=== PATIENT | male | born 1930 | race Caucasian/White ===

== ENCOUNTER 2017-08-25 22:59 | Inpatient (IN) | payer OTHER, MEDICARE ==
[~2017-08-25] VITALS: Ht 162.6 cm; Wt 58.0 kg
[~2017-08-25 22:59] MED LIST: DOCU1CAP39 PO; ENOX40P SQ; GLUCTAB PO; LORTA5 PO; PANT40IN3 PO; SITA100 PO; TUMS CHEW; Z.0.WALKERFRONT
[2017-08-25 23:03] VITALS: BP 138/65; PULSE 100; RESP 18; TEMP 97.8; O2SAT 100
--- NOTE | 2017-08-25 23:43 | PD ---
HPI Chief Complaint: Psychiatric Symptoms Time Seen by Provider: 23:39 Travel History International Travel<30 days: No Contact w/Intl Traveler<30days: No Traveled to known affect area: No History of Present Illness HPI 86-year-old male presents under Galaviz act initiated by the Police Department. According to his paperwork, "Rufus Escobedo was unable to get up on his own and refused help and had defecated in his clothing and floor. Fanny did not know the year or where he was located. Fanny was verbally combative and became angry. Fanny was on the floor for over an hour and confused. Fanny refused help in transfer. Was asked why he never answered his family 's calls and advised that when he got home today deaf people with kids were in his locked home doing construction. Stated he got tired and took a nap while they were there and woke up and they were gone. There is no new construction in his home. Deputy Molina believes he cannot make clear decisions about his health and well-being and without care and help he is likely to cause harm to himself. Deputy De La Cruz placed him under a floor to be cracked and had him transported to [facility] for care and treatment." The patient reports that he fell today because he was bending over to olive picker a pill. He reports that he was unable to get up off the ground. It is unclear who called the ambulance or police, he does not know. He says that he lives alone but his neighbor, Anjelica, checks on him on a regular basis however she was not present at the time of this incident. No other complaints. PFSH Past Medical History Cancer: No Cardiovascular Problems: Yes Diabetes: Yes Patient Takes Glucophage: Yes GERD: Yes Genitourinary: No Hypertension: Yes Musculoskeletal: No Neurologic: No Psychiatric: No Reproductive: No Respiratory: No Radiation Therapy: No Tetanus Vaccination: < 5 Years Social History Alcohol Use: Yes (red wine) Tobacco Use: No Substance Use: No Allergies-Medications (Allergen,Severity, Reaction): Coded Allergies: No Known Allergies (Unverified Allergy, Unknown, 08/26/17) Reported Meds & Prescriptions Reported Meds & Active Scripts Active Pantoprazole Sodium 40 Mg Tab 40 Mg PO DAILY Colace 100 Mg Cap (Docusate Sodium) 100 Mg Cap 100 Mg PO BID Calcium Carbonate 500 Mg Chw 500 Mg CHEW Q2H PRN Walker Front Wheel (Walkerfront) Device 1 Unit [place] 5-325 mg (Hydrocodone-Acetaminophen 5-325 mg) 1 Tab 1 Tab PO Q4H PRN Lovenox (Enoxaparin Sodium) 40 Mg/0.4 Ml Inj 40 Mg SQ Q24H 30 Days Reported Januvia (Sitagliptin Phosphate) 100 Mg Tab 100 Mg PO DAILY Metformin (Metformin HCl) 500 Mg Tab 500 Mg PO BID Review of Systems Except as stated in HPI: all other systems reviewed are Neg Physical Exam Narrative GENERAL: Pleasant well-developed well-nourished male in no acute distress alert and oriented to person, place, time SKIN: Warm and dry. HEAD: Atraumatic. Normocephalic. EYES: Pupils equal and round. No scleral icterus. No injection or drainage. ENT: No nasal bleeding or discharge. Mucous membranes pink and moist. NECK: Trachea midline. No JVD. CARDIOVASCULAR: Regular rate and rhythm. No murmur appreciated. RESPIRATORY: No accessory muscle use. Clear to auscultation. Breath sounds equal bilaterally. GASTROINTESTINAL: Abdomen soft, non-tender, nondistended. Hepatic and splenic margins not palpable. MUSCULOSKELETAL: No obvious deformities. No clubbing. No cyanosis. No edema. NEUROLOGICAL: Awake and alert. No obvious cranial nerve deficits. Motor grossly within normal limits. Normal speech. Patient is unsteady when attempting to stand. PSYCHIATRIC: Appropriate mood and affect; insight and judgment normal. Data Data Last Documented VS Vital Signs Date Time Temp Pulse Resp B/P (MAP) Pulse Ox O2 Delivery O2 Flow Rate FiO2 08/25/17 23:03 97.8 100 18 138/65 (89) 100 Orders Orders Electrocardiogram (08/25/17 23:37) Basic Metabolic Panel (Bmp) (08/25/17 23:37) Complete Blood Count With Diff (08/25/17 23:37) Magnesium (Mg) (08/25/17 23:37) Ecg Monitoring (08/25/17 23:37) Iv Access Insert/Monitor (08/25/17 23:37) Oximetry (08/25/17 23:37) Sodium Chloride 0.9% Flush (Ns Flush) (08/25/17 23:45) Creatine Kinase (Cpk) (08/25/17 23:43) Ct Brain W/O Iv Contrast(Rout) (08/26/17 ) CKMB (08/26/17 00:36) CKMB% (08/26/17 00:36) Admit Order (Ed Use Only) (08/26/17 02:04) Consult Psychiatry (08/26/17 ) Bedside Glucose BIANCA.CSUGAR (08/26/17 02:01) Blood Glucose Goal (Criteria) (08/26/17 02:01) Hypoglycemia 70 Mg/Dl Or < (08/26/17 02:01) Notify Dr: Other (08/26/17 02:01) Dextrose 50% In Donny (Vial) Inj (D50w (Vi (08/26/17 02:15) Glucagon Inj (Glucagon Inj) (08/26/17 02:15) Insulin Aspart Supplemtl Scale (Novolog (08/26/17 08:00) Place In Observation (08/26/17 ) Vital Signs (Adult) Q4H (08/26/17 02:01) Activity Oob With Assistance (08/26/17 02:01) Diet Regular Basic (08/26/17 Breakfast) Sodium Chlor 0.9% 1000 Ml Inj (Ns 1000 M (08/26/17 02:01) Sodium Chloride 0.9% Flush (Ns Flush) (08/26/17 02:15) Sodium Chloride 0.9% Flush (Ns Flush) (08/26/17 09:00) Ondansetron Inj (Zofran Inj) (08/26/17 02:15) Comprehensive Metabolic Panel (08/27/17 06:00) Complete Blood Count With Diff (08/27/17 06:00) Pt Request For Service (08/26/17 02:01) Case Management Consult (08/26/17 02:01) Scd Bilateral/Knee High BIANCA.BID (08/26/17 02:01) [place] Bilateral/Knee High BIANCA.QSHIFT (08/26/17 02:05) Sodium Chlor 0.9% 1000 Ml Inj (Ns 1000 M (08/26/17 02:05) Acetaminophen (Tylenol) (08/26/17 02:15) Docusate Sodium-Senna (Katie-Colace) (08/26/17 09:00) Magnesium Hydroxide Liq (Milk Of Magnesi (08/26/17 02:15) Sennosides (Senokot) (08/26/17 02:15) Bisacodyl Supp (Dulcolax Supp) (08/26/17 02:15) Lactulose Liq (Lactulose Liq) (08/26/17 02:15) Labs Laboratory Tests Test 08/26/17 00:36 White Blood Count 10.8 TH/MM3 Red Blood Count 2.83 MIL/MM3 Hemoglobin 9.1 GM/DL Hematocrit 27.6 % Mean Corpuscular Volume 97.7 FL Mean Corpuscular Hemoglobin 32.1 PG Mean Corpuscular Hemoglobin Concent 32.9 % Red Cell Distribution Width 18.3 % Platelet Count 604 TH/MM3 Mean Platelet Volume 6.5 FL Neutrophils (%) (Auto) 83.6 % Lymphocytes (%) (Auto) 8.9 % Monocytes (%) (Auto) 7.0 % Eosinophils (%) (Auto) 0.1 % Basophils (%) (Auto) 0.4 % Neutrophils # (Auto) 9.0 TH/MM3 Lymphocytes # (Auto) 1.0 TH/MM3 Monocytes # (Auto) 0.8 TH/MM3 Eosinophils # (Auto) 0.0 TH/MM3 Basophils # (Auto) 0.0 TH/MM3 CBC Comment DIFF FINAL Differential Comment Blood Urea Nitrogen 23 MG/DL Creatinine 0.77 MG/DL Random Glucose 217 MG/DL Calcium Level 8.4 MG/DL Magnesium Level 1.4 MG/DL Sodium Level 136 MEQ/L Potassium Level 3.8 MEQ/L Chloride Level 103 MEQ/L Carbon Dioxide Level 16.9 MEQ/L Anion Gap 16 MEQ/L Estimat Glomerular Filtration Rate 96 ML/MIN Total Creatine Kinase 735 U/L Creatine Kinase MB 13.8 NG/ML Creatine Kinase MB % 1.9 % [facility] Medical Decision Making Medical Screen Exam Complete: Yes Emergency Medical Condition: Yes Medical Record Reviewed: Yes Differential Diagnosis Inability to care for self, failure to thrive, dementia, acute psychosis Narrative Course Family members who live out of state eventually called and spoke to the nurse. She reports that they called the police today for a well person check up because they have not heard from him today. Lab work, CT the brain is been ordered. Lab work has been reviewed. Hemoglobin is 9.1, platelet count is 604, total CK 735, BUN is 23, anion gap is 16 the patient will be given IV fluids. At this point in time given the patient's generalized weakness, inability to ambulate independently, lives by himself and is likely having difficulties with activities of daily living, he will be admitted for observation medically. Discussed with my attending who agrees with plan of care. Diagnosis Primary Impression: Generalized weakness Admitting Information Admitting Physician Requests: Observation Tyrone Delaney Aug 25, 2017 23:42
[2017-08-25] MEDS ORDERED: SODIUM CHLORIDE 0.9% FLUSH 10 ML FLUSH IVF PRN (23:45)
[2017-08-26 00:48] LABS: BASOPHIL % 0.4 % (0.0-2.0); EOSINOPHIL % 0.1 % (0.0-4.0); HEMATOCRIT 27.6 % (39.0-51.0); HEMOGLOBIN 9.1 GM/DL (13.0-17.0); LYMPH % 8.9 % (9.0-44.0); MEAN CELL VOLUME 97.7 FL (80.0-100.0); MEAN CORPUSCULAR HEMOGLOBIN 32.1 PG (27.0-34.0); MEAN CORPUSCULAR HGB CONC 32.9 % (32.0-36.0); MEAN PLATELET VOLUME 6.5 FL (7.0-11.0); MONOCYTE # 0.8 TH/MM3 (0-0.9); NEUT % 83.6 % (16.0-70.0); PLATELET COUNT 604 TH/MM3 (150-450); RED BLOOD COUNT 2.83 MIL/MM3 (4.50-5.90); RED CELL DISTRIBUTION WIDTH 18.3 % (11.6-17.2); WHITE BLOOD COUNT 10.8 TH/MM3 (4.0-11.0)
[2017-08-26 01:03] LABS: BICARBONATE 16.9 MEQ/L (21.0-32.0); CALCIUM 8.4 MG/DL (8.5-10.1); CREATININE 0.77 MG/DL (0.60-1.30); MAGNESIUM 1.4 MG/DL (1.5-2.5)
--- NOTE | 2017-08-26 01:31 | RADRPT ---
EXAM DATE/TIME: 08/26/2017 01:17 [place] COMPARISON: No previous studies available for comparison. INDICATIONS : Cephalgia. RADIATION DOSE: 36.71 CTDIvol (mGy) MEDICAL HISTORY : Gastroesophageal reflux disease. Cardiovascular disease Diabetes mellitus type 2.Hypertension. SURGICAL HISTORY : None. ENCOUNTER: Initial ACUITY: 1 day PAIN SCALE: 7/10 LOCATION: cranial TECHNIQUE: Multiple contiguous axial images were obtained of the head. Using automated exposure control and adj ustment of the mA and/or kV according to patient size, radiation dose was kept as low as reasonably a chievable to obtain optimal diagnostic quality images. DICOM format image data is available electro nically for review and comparison. FINDINGS: CEREBRUM: Atrophy. Periventricular low attenuation change. The ventricles are normal for age. No evidence of m idline shift, mass lesion, hemorrhage or acute infarction. No extra-axial fluid collections are seen . POSTERIOR FOSSA: The cerebellum and brainstem are intact. The 4th ventricle is midline. The cerebellopontine angle i s unremarkable. EXTRACRANIAL: The visualized portion of the orbits is intact. Atrophy of the left maxillary sinus. SKULL: The calvaria is intact. No evidence of skull fracture. CONCLUSION: 1. No acute intracranial abnormality. 2. Atrophy. 3. Chronic small vessel ischemic change. Brandon Narvaez Jr., MD on August 26, 2017 at 1:29 Board Certified Radiologist. This report was verified electronically.
[2017-08-26] MEDS: SODIUM CHLOR 0.9% 1000 ML INJ 1,000 ML IV SCH ×3 (02:01→22:25)
[2017-08-26] MEDS ORDERED: SODIUM CHLOR 0.9% 1000 ML INJ 1,000 ML IV SCH (02:05)
[2017-08-26] MEDS ORDERED: BISACODYL 10 MG SUPP RECTAL PRN (02:15)
[2017-08-26] MEDS ORDERED: MAGNESIUM HYDROXIDE SUSP 30 ML CUP PO PRN (02:15)
[2017-08-26] MEDS ORDERED: GLUCAGON 1 MG/ML VIAL OTHER PRN (02:15)
[2017-08-26] MEDS ORDERED: SENNOSIDES 8.6 MG TAB PO PRN (02:15)
[2017-08-26] MEDS ORDERED: ACETAMINOPHEN 325 MG TAB PO PRN (02:15)
[2017-08-26] MEDS ORDERED: LACTULOSE SYRUP 20 GM/30 ML CUP PO PRN (02:15)
[2017-08-26] MEDS ORDERED: DEXTROSE 50% IN WATER 50 ML VIAL(D50) IV PUSH PRN (02:15)
[2017-08-26] MEDS ORDERED: ONDANSETRON HCL 4 MG/2 ML VIAL IVP PRN (02:15)
[2017-08-26] MEDS ORDERED: SODIUM CHLORIDE 0.9% FLUSH 10 ML FLUSH IV FLUSH PRN (02:15)
[2017-08-26] MEDS ORDERED: CALCIUM CARBONATE 500 MG CHEWABLE TAB CHEW ONE (02:30)
--- NOTE | 2017-08-26 03:48 | HHI.HP ---
[facility] Service [facility] Primary Care Physician No Primary Care Physician Admission Diagnosis Generalized weakness Diagnoses: (1) Rhabdomyolysis Diagnosis: Principal (2) Gait instability Diagnosis: Principal (3) Self-care deficit in patient living alone Diagnosis: Principal (4) DM (diabetes mellitus) Diagnosis: Principal (5) Generalized weakness Travel History International Travel<30 Days: No Contact w/Intl Traveler <30 Da: No Traveled to Known Affected Are: No History of Present Illness This is an 86-year-old male with a PMH of HTN and DM who was brought to the ER by Police under Galaviz Act secondary to confusion and unable to care for self. Per Police report, patient refusing medical attention and had defecated on the floor. Noted to be confused at that time. On arrival, BP 138/65, HR 100, O2 sat 100% on RA, Afebrile. CBC essentially unremarkable. Chemistry unremarkable except for BS 217. CPK 735. CT Head w/ no acute findings. Patient was gotten up to ambulate, however noted to have significant gait instability which we were asked to admit. Remains under Galaviz Act at this time. Review of Systems Except as stated in HPI: all other systems reviewed are Neg ROS: 14 point review of systems otherwise negative. Past Family Social History Past Medical History PMH: HTN and DM Past Surgical History PAST SURGICAL HISTORY: Right Hip Surgery Allergies: Coded Allergies: No Known Allergies (Unverified Allergy, Unknown, 08/26/17) Family History PAST FAMILY HISTORY: Reviewed. No h/o DM or CAD Social History PAST SOCIAL HISTORY: Occasional alcohol. Negative for tobacco or drugs. Physical Exam Vital Signs Vital Signs Date Time Temp Pulse Resp B/P (MAP) Pulse Ox O2 Delivery O2 Flow Rate FiO2 08/25/17 23:03 97.8 100 18 138/65 (89) 100 Physical Exam PE: GENERAL: Pleasant elderly male in no acute distress. Awake, alert, oriented to person and place. HEENT: PERRLA, EOMI. No scleral icterus or conjunctival pallor. No lid lag or facial droop. CARDIOVASCULAR: Regular rate and rhythm. No obvious murmurs to auscultation. No chest tenderness to palpation. RESPIRATORY: No obvious rhonchi or wheezing. Clear to auscultation. Breath sounds equal bilaterally. GASTROINTESTINAL: Abdomen soft, non-tender, nondistended. BS normal. MUSCULOSKELETAL: Extremities without clubbing, cyanosis, or edema. No obvious deformities. NEUROLOGICAL: Awake, alert. No focal neurologic deficits. Moving both upper and lower extremities spontaneously. Laboratory Laboratory Tests Test 08/26/17 00:36 White Blood Count 10.8 Red Blood Count 2.83 Hemoglobin 9.1 Hematocrit 27.6 Mean Corpuscular Volume 97.7 Mean Corpuscular Hemoglobin 32.1 Mean Corpuscular Hemoglobin Concent 32.9 Red Cell Distribution Width 18.3 Platelet Count 604 Mean Platelet Volume 6.5 Neutrophils (%) (Auto) 83.6 Lymphocytes (%) (Auto) 8.9 Monocytes (%) (Auto) 7.0 Eosinophils (%) (Auto) 0.1 Basophils (%) (Auto) 0.4 Neutrophils # (Auto) 9.0 Lymphocytes # (Auto) 1.0 Monocytes # (Auto) 0.8 Eosinophils # (Auto) 0.0 Basophils # (Auto) 0.0 CBC Comment DIFF FINAL Differential Comment Blood Urea Nitrogen 23 Creatinine 0.77 Random Glucose 217 Calcium Level 8.4 Magnesium Level 1.4 Sodium Level 136 Potassium Level 3.8 Chloride Level 103 Carbon Dioxide Level 16.9 Anion Gap 16 Estimat Glomerular Filtration Rate 96 Total Creatine Kinase 735 Creatine Kinase MB 13.8 Creatine Kinase MB % 1.9 Result Diagram: 08/26/173508/26/1735 Caprini VTE Risk Assessment Caprini VTE Risk Assessment: No/Low Risk (score <= 1) Caprini Risk Assessment Model Point Value = 1 Point Value = 2 Point Value = 3 Point Value = 5 Age 41-60 Minor surgery BMI > 25 kg/m2 Swollen legs Varicose veins or History of unexplained or recurrent spontaneous Oral contraceptives or hormone replacement Sepsis (< 1 month) Serious lung disease, including pneumonia (< 1 month) Abnormal pulmonary function Acute myocardial infarction Congestive heart failure (< 1 month) History of inflammatory bowel disease Medical patient at bed rest Age 61-74 Arthroscopic surgery Major open surgery (> 45 min) Laparoscopic surgery (> 45 min) Malignancy Confined to bed (> 72 hours) Immobilizing plaster cast Central venous access Age >= 75 History of VTE Family history of VTE Factor V Leiden Prothrombin [id number] Lupus anticoagulant Anticardiolipin antibodies Elevated serum homocysteine Heparin-induced thrombocytopenia Other congenital or acquired thrombophilia Stroke (< 1 month) Elective arthroplasty Hip, pelvis, or leg fracture Acute spinal cord injury (< 1 month) Prophylaxis Regimen Total Risk Factor Score Risk Level Prophylaxis Regimen 0-1 Low Early ambulation 2 Moderate Order ONE of the following: *Sequential Compression Device (SCD) *Heparin 5000 units SQ BID 3-4 Higher Order ONE of the following medications: *Heparin 5000 units SQ TID *Enoxaparin/Lovenox 40 mg SQ daily (WT < 150 kg, CrCl > 30 mL/min) *Enoxaparin/Lovenox 30 mg SQ daily (WT < 150 kg, CrCl > 10-29 mL/min) *Enoxaparin/Lovenox 30 mg SQ BID (WT < 150 kg, CrCl > 30 mL/min) AND/OR *Sequential Compression Device (SCD) 5 or more Highest Order ONE of the following medications: *Heparin 5000 units SQ TID (Preferred with Epidurals) *Enoxaparin/Lovenox 40 mg SQ daily (WT < 150 kg, CrCl > 30 mL/min) *Enoxaparin/Lovenox 30 mg SQ daily (WT < 150 kg, CrCl > 10-29 mL/min) *Enoxaparin/Lovenox 30 mg SQ BID (WT < 150 kg, CrCl > 30 mL/min) AND *Sequential Compression Device (SCD) Assessment and Plan Problem List: (1) Self-care deficit in patient living alone ICD Code: R46.89 - Other symptoms and signs involving appearance and behavior (2) Gait instability ICD Code: R26.81 - Unsteadiness on feet (3) Rhabdomyolysis ICD Code: M62.82 - Rhabdomyolysis (4) DM (diabetes mellitus) ICD Code: E11.9 - Type 2 diabetes mellitus without complications Status: Chronic Assessment and Plan A/P: 1. Self Care Deficit: currently under [place]aviz Act by Police for refusing treatment/defecating on floor, transient confusion, unable to care for self. Consult Psych for further evaluation. CT Head w/ no acute findings, images reviewed by me. Check U/a to eval for underlying UTI. 2. Gait Instability: noted to be unstable w/ ambulation, unable to care for self. PT for eval/tx. Consult Case Management for assistance w/ placement. 3. Rhabdomyolysis: CPK 735. IVF for hydration, check UA, repeat labs in a.m. 4. DM: Sliding scale with Accu-Cheks. 5. DVT Prophylaxis: SCD/teds. 6. Social work for DC planning as needed. 7. Case discussed at length with ER physician, lab/records/imaging reviewed by me. Ada Hernandez MD Aug 26, 2017 03:48
[2017-08-26 05:01] VITALS: BP 132/60; PULSE 88; RESP 18; TEMP 98; O2SAT 97
[2017-08-26 07:26] VITALS: BP 136/63; PULSE 96; RESP 16; TEMP 98.1; O2SAT 99
[2017-08-26] MEDS: DOCUSATE SODIUM 50 MG/SENNA 8.6 MG TAB PO SCH ×2 (09:07→21:00)
[2017-08-26] MEDS: ALUMINUM/MAGNESIUM/SIMETH 30 ML CUP PO PRN (09:07)
[2017-08-26] MEDS: SODIUM CHLORIDE 0.9% FLUSH 10 ML FLUSH IV FLUSH SCH ×2 (09:07→21:00)
--- NOTE | 2017-08-26 09:12 | HHI.PR ---
Subjective Remarks Follow up for Galaviz act, inability to care for self. The patient is currently awake, alert, oriented x4, ambulating his room without difficulty. He states his neighbor called [facility] because they were concerned about him falling and on the floor for over 1 hour. The patient states he dropped one of his tablets on the floor, bent down to pick it up, and had difficulty getting off the floor but he claims he was only down for a few minutes. He reports right hip weakness since his hip fracture in 2016, but denies any recent fall/injury or increased pain. The patient does report recent nonbloody diarrhea x4days, approximately 2 episodes a day. He denies any recent antibiotic use or sick contacts. He denies any specific abdominal pains but does complain of some indigestion/heartburn. Denies nausea or vomiting. He states he's lost 30lbs over the past year because he's just lost his appetite. The patient reports he is still very independent, drives his car, goes grocery shopping, etc. He wants to be released from the hospital early tomorrow morning if possible because he has to go pay a traffic ticket and attend a driving class. He states he has a neighbor that checks on him. He has no other medical complaints at this time. Objective Vitals Vital Signs Date Time Temp Pulse Resp B/P (MAP) Pulse Ox O2 Delivery O2 Flow Rate FiO2 08/26/17 07:26 98.1 96 16 136/63 (87) 99 08/26/17 05:01 98.0 88 18 132/60 (84) 97 08/25/17 23:03 97.8 100 18 138/65 (89) 100 Result Diagram: 08/26/17 0036 08/26/17 0036 Imaging Last Impressions Head CT 08/26/17 0000 Signed Impressions: Service Date/Time: Saturday, August 26, 2017 01:17 - CONCLUSION: 1. No acute intracranial abnormality. 2. Atrophy. 3. Chronic small vessel ischemic change. Brandon Narvaez Jr., MD Objective Remarks GENERAL: Well-nourished, well-developed pleasant elderly male patient in [facility]. SKIN: Warm and dry. No rash. HEENT: Normocephalic. Atraumatic. Pupils equal and round. Mucous membranes pink and moist. NECK: Supple. Trachea midline. CARDIOVASCULAR: Regular rate and rhythm. S1, S2 noted. No murmur appreciated. RESPIRATORY: No accessory muscle use. Clear to auscultation. Breath sounds equal bilaterally. GASTROINTESTINAL: Abdomen soft, non-tender, nondistended. Normoactive bowel sounds x4. MUSCULOSKELETAL: No obvious deformities. Extremities without clubbing, cyanosis , or edema. NEUROLOGICAL: Awake and alert. No obvious cranial nerve deficits. Motor grossly within normal limits. 5/5 strength bilateral upper and lower extremities. Normal speech. PSYCHIATRIC: Appropriate mood and affect; insight and judgment normal. Medications and IVs Current Medications Medications (Trade) Dose Ordered Sig/Rodrigo Route Start Time Stop Time Status Last Admin (D50w (Vial) Inj) 50 ml UNSCH PRN IV PUSH 08/26/17 02:15 (Glucagon Inj) 1 mg UNSCH PRN OTHER 08/26/17 02:15 (NovoLOG SUPPLEMENTAL SCALE) 1 ACHS SLIDING SCALE SQ 08/26/17 08:00 Sodium Chloride 1,000 ml @ 100 mls/hr Q10H IV 08/26/17 02:01 08/26/17 02:01 (NS Flush) 2 ml UNSCH PRN IV FLUSH 08/26/17 02:15 (NS Flush) 2 ml BID IV FLUSH 08/26/17 09:00 (Zofran Inj) 4 mg Q6H PRN IVP 08/26/17 02:15 (Tylenol) 650 mg Q6H PRN PO 08/26/17 02:15 (Katie-Colace) 1 tab BID PO 08/26/17 09:00 (Milk Of Magnesia Liq) 30 ml Q12H PRN PO 08/26/17 02:15 (Senokot) 17.2 mg Q12H PRN PO 08/26/17 02:15 (Dulcolax Supp) 10 mg DAILY PRN RECTAL 08/26/17 02:15 (Lactulose Liq) 30 ml DAILY PRN PO 08/26/17 02:15 (Mag-Al Plus Susp Liq) 30 ml Q6H PRN PO 08/26/17 08:15 08/26/17 09:07 A/P Problem List: (1) Self-care deficit in patient living alone ICD Code: R46.89 - Other symptoms and signs involving appearance and behavior (2) Gait instability ICD Code: R26.81 - Unsteadiness on feet (3) Rhabdomyolysis ICD Code: M62.82 - Rhabdomyolysis (4) DM (diabetes mellitus) ICD Code: E11.9 - Type 2 diabetes mellitus without complications Status: Chronic Assessment and Plan 86-year-old male with a PMH of HTN and DM who was brought to the ER by Police under Galaviz Act secondary to confusion and unable to care for self. Per Police report, patient refusing medical attention and had defecated on the floor. Noted to be confused at that time. Self Care Deficit: currently under [place] Act by Police for refusing treatment/ defecating on floor, transient confusion, unable to care for self. -CT Head w/ no acute findings, images reviewed by me. -Consult Psych for further evaluation. -Check U/a to eval for underlying UTI. Gait Instability: noted to be unstable w/ ambulation, unable to care for self. -PT/OT for eval/tx. -Consult Case Management for assistance with discharge planning Rhabdomyolysis: CPK 735. Suspect secondary to fall. -Give IVF for hydration -check UA -repeat labs today pending. Diarrhea: patient with diarrhea x4days. Afebrile, no leukocytosis. -check C.diff and stool studies -start Lactinex tid Weight Loss/Anemia: patient reports 25lbs weight loss over the past year secondary to decreased appetite. Patient with chronic normocytic anemia, asymptomatic. -recommend outpatient follow up with GI for EGD/colonoscopy Dyspepsia: patient reports chronic heartburn, on protonix at home -will continue patient's protonix -add Mylanta prn DM: Chronic -holding patient's home hypoglycemics -Monitor Accu-Cheks and cover with SSI for now -Check HgbA1c Sliding scale with Accu-Cheks. Hypomagnesemia: Mag 1.4, likely secondary to recent diarrhea -Give IV Mag Sulfate x2G -Repeat labs in the am DVT Prophylaxis: SCD/teds. Discharge Planning Discharge pending PT/OT eval, psychiatry eval, and stool studies. Hopefully discharge tomorrow. Sydnie Anthony PA-C Aug 26, 2017 9:12 am
[2017-08-26] MEDS: INSULIN ASPART SUPPLEMENTAL SCALE SQ SCH ×5 (09:37→22:25)
[2017-08-26] MEDS: PANTOPRAZOLE SOD 40 MG DELAYED RELEASE TAB PO SCH (12:00)
--- NOTE | 2017-08-26 12:01 | PD.PSY.CON ---
Provisional Diagnosis Admission Date Aug 26, 2017 at 02:06 Astor I. Adjustment disorder with depressed mood Astor II. Deferred Astor III. Diabetes History of Present Illness Service Psychiatry Consult Requested By ER Reason for Consult Under galaviz act Primary Care Physician No Primary Care Physician HPI The patient is 86-year-old [place] man, single, domiciled alone in [place], without no previous psychiatric history, no previous psychiatric hospitalizations, no previous suicide attempts, he has medical history of diabetes, hypertension, who was brought to the ER by Police under Galaviz Act secondary to confusion and unable to care for self. Per Police report, patient refusing medical attention and had defecated on the floor. Noted to be confused at that time. On arrival, BP 138/65, HR 100, O2 sat 100% on RA, Afebrile. CBC essentially unremarkable. Chemistry unremarkable except for BS 217. CPK 735. CT Head w/ no acute findings. Patient was gotten up to ambulate , however noted to have significant gait instability which we were asked to admit. Patient was consulted to psychiatry to address his Galaviz act. On psychiatric evaluation, I found the patient who is calm, cooperative, very pleasant. The patient reports good mood, he says that his daughter and neighbor were no precise about his living situation. He says that he lives alone, he has a very good friend who comes and take care of him daily. He denies depressive symptoms, he denies anhedonia, he denies hopelessness, he denies helplessness, he denies worthlessness, he denies suicidal or homicidal ideation, he denies visual and auditory hallucinations. The patient is logical , he is coherent and relevant. No loosening of associations, no tamiko, no flight of ideas, no agitation, no aggressive behavior, no disorganized behavior or speech present. The patient is fully oriented 3, no fluctuation of consciousness, no attention deficit at this moment. He denies the use of alcohol and illegal drugs. Review of Systems Constitutional: DENIES: Diaphoretic episodes, Fatigue, Fever, Weight gain, Weight loss, Chills, Dizziness, Change in appetite, Night Sweats Endocrine: DENIES: Heat/cold intolerance, Polydipsia, Polyuria, Polyphagia Eyes: DENIES: Blurred vision, Diplopia, Eye inflammation, Eye pain, Vision loss , Photosensitivity, Double Vision Ears, nose, mouth, throat: DENIES: Tinnitus, Hearing loss, Vertigo, Nasal discharge, Oral lesions, Throat pain, Hoarseness, Ear Pain, Running Nose, Epistaxis, Sinus Pain, Toothache, Odynophagia Respiratory: DENIES: Apneas, Cough, Snoring, Wheezing, Hemoptysis, Sputum production, Shortness of breath Cardiovascular: DENIES: Chest pain, Palpitations, Syncope, Dyspnea on Exertion , PND, Lower Extremity Edema, Orthopnea, Claudication Gastrointestinal: DENIES: Abdominal pain, Black stools, Bloody stools, Constipation, Diarrhea, Nausea, Vomiting, Difficulty Swallowing, Anorexia Genitourinary: DENIES: Sexual dysfunction, Urinary frequency, Urinary incontinence, Urgency, Hematuria, Dysuria, Nocturia, Penile Discharge, Testicular Pain, Testicular Swelling Musculoskeletal: DENIES: Joint pain, Muscle aches, Stiffness, Joint Swelling, Back pain, Neck pain Integumentary: DENIES: Abnormal pigmentation, Nail changes, Pruritus, Rash Hematologic/lymphatic: DENIES: Bruising, Lymphadenopathy Immunologic/allergic: DENIES: Eczema, Urticaria Neurologic: DENIES: Abnormal gait, Headache, Localized weakness, Paresthesias, Seizures, Speech Problems, Tremor, Poor Balance Psychiatric: DENIES: Anxiety, Confusion, Mood changes, Depression, Hallucinations, Agitation, Suicidal Ideation, Homicidal Ideation, Delusions Past Family Social History Coded Allergies: No Known Allergies (Unverified Allergy, Unknown, 08/26/17) Active Scripts Pantoprazole Sodium (Pantoprazole Sodium) 40 Mg Tab, 40 MG PO DAILY for gerd, # 30 TAB Prov:Prince Boggs MD 03/29/16 Docusate Sodium (Colace 100 Mg Cap) 100 Mg Cap, 100 MG PO BID for Constipation, #20 CAP Prov:Prince Boggs MD 03/29/16 Calcium Carbonate (Calcium Carbonate) 500 Mg Chw, 500 MG CHEW Q2H Y for DYSPEPSIA, #30 EA Prov:Prince Boggs MD 03/29/16 Walker Front Wheel (Walker Front Wheel) Device, 1 UNIT, #1 Prov:Matt Macario MD 03/26/16 Hydrocodone-Acetaminophen 5-325 mg ([place] 5-325 mg) 1 Tab, 1 TAB PO Q4H Y for PAIN LESS THAN 5 ON SCALE, #60 TAB Prov:Matt Macario MD 03/26/16 Enoxaparin Sodium (Lovenox) 40 Mg/0.4 Ml Inj, 40 MG SQ Q24H for Prevent Blood Clot for 30 Days, INJECTION Prov:Matt Macario MD 03/26/16 Reported Medications Sitagliptin Phosphate (Januvia) 100 Mg Tab, 100 MG PO DAILY for Diabetic, TAB 03/26/16 Metformin XR 24 HR (Glucophage XR 24 HR) 500 Mg Tab, 500 MG PO BID for diabetic , TAB 03/25/16 Current Medications Medications (Trade) Dose Ordered Sig/Rodrigo Route Start Time Stop Time Status Last Admin (D50w (Vial) Inj) 50 ml UNSCH PRN IV PUSH 08/26/17 02:15 (Glucagon Inj) 1 mg UNSCH PRN OTHER 08/26/17 02:15 (NovoLOG SUPPLEMENTAL SCALE) 1 ACHS SLIDING SCALE SQ 08/26/17 08:00 08/26/17 09:37 Sodium Chloride 1,000 ml @ 100 mls/hr Q10H IV 08/26/17 02:01 08/26/17 02:01 (NS Flush) 2 ml UNSCH PRN IV FLUSH 08/26/17 02:15 (NS Flush) 2 ml BID IV FLUSH 08/26/17 09:00 (Zofran Inj) 4 mg Q6H PRN IVP 08/26/17 02:15 (Tylenol) 650 mg Q6H PRN PO 08/26/17 02:15 (Katie-Colace) 1 tab BID PO 08/26/17 09:00 (Milk Of Magnesia Liq) 30 ml Q12H PRN PO 08/26/17 02:15 (Senokot) 17.2 mg Q12H PRN PO 08/26/17 02:15 (Dulcolax Supp) 10 mg DAILY PRN RECTAL 08/26/17 02:15 (Lactulose Liq) 30 ml DAILY PRN PO 08/26/17 02:15 (Mag-Al Plus Susp Liq) 30 ml Q6H PRN PO 08/26/17 08:15 08/26/17 09:07 (Lactinex) 1 tab TID PO 08/26/17 13:00 (Protonix) 40 mg DAILY PO 08/26/17 10:00 Family Psych History He denies family psychiatric history Social History Patient was born and raised in [facility], he has been living denies this for about 50 years, he losing [id number] along in his own house, supported by alf benefits, her highest level of education is high school, he has a daughter who lives in [place]. Patient's Strengths (min. 2) No previous psychiatric history Physical Exam Vital Signs Vital Signs Date Time Temp Pulse Resp B/P (MAP) Pulse Ox O2 Delivery O2 Flow Rate FiO2 08/26/17 07:26 98.1 96 16 136/63 (87) 99 Lab Results Test 08/26/17 00:36 White Blood Count 10.8 TH/MM3 Red Blood Count 2.83 MIL/MM3 Hemoglobin 9.1 GM/DL Hematocrit 27.6 % Mean Corpuscular Volume 97.7 FL Mean Corpuscular Hemoglobin 32.1 PG Mean Corpuscular Hemoglobin Concent 32.9 % Red Cell Distribution Width 18.3 % Platelet Count 604 TH/MM3 Mean Platelet Volume 6.5 FL Neutrophils (%) (Auto) 83.6 % Lymphocytes (%) (Auto) 8.9 % Monocytes (%) (Auto) 7.0 % Eosinophils (%) (Auto) 0.1 % Basophils (%) (Auto) 0.4 % Neutrophils # (Auto) 9.0 TH/MM3 Lymphocytes # (Auto) 1.0 TH/MM3 Monocytes # (Auto) 0.8 TH/MM3 Eosinophils # (Auto) 0.0 TH/MM3 Basophils # (Auto) 0.0 TH/MM3 CBC Comment DIFF FINAL Differential Comment Blood Urea Nitrogen 23 MG/DL Creatinine 0.77 MG/DL Random Glucose 217 MG/DL Calcium Level 8.4 MG/DL Magnesium Level 1.4 MG/DL Sodium Level 136 MEQ/L Potassium Level 3.8 MEQ/L Chloride Level 103 MEQ/L Carbon Dioxide Level 16.9 MEQ/L Anion Gap 16 MEQ/L Estimat Glomerular Filtration Rate 96 ML/MIN Total Creatine Kinase 735 U/L Creatine Kinase MB 13.8 NG/ML Creatine Kinase MB % 1.9 % Mental Status Examination Appearance: Appropriate Consciousness: Alert Orientation: x4 Motor Activity: Normal gait Speech: Unremarkable Language: Adequate Fund of Knowledge: Adequate Attention and Concentration: Adequate Memory: Unremarkable Mood: Appropriate Affect: Appropriate Thought Process & Associations: Intact Thought Content: Appropriate Hallucination Type: None Delusion Type: None Suicidal Ideation: No Suicidal Plan: No Suicidal Intention: No Homicidal Ideation: No Homicidal Plan: No Homicidal Intention: No Insight: Adequate Judgment: Adequate Assessment & Plan Problem List: (1) Adjustment disorder with mixed anxiety and depressed mood ICD Codes: F43.23 - Adjustment disorder with mixed anxiety and depressed mood Assessment & Plan: On psychiatric evaluation today the patient does not present any evidence of depressive symptoms, anxiety, tamiko or psychosis. He denies suicidal or homicidal ideation, he denies visual and auditory hallucinations. The patient is fully oriented 3, no attention deficit, no fluctuation of consciousness present. He does not have any previous psychiatric history, no previous suicide attempts. Patient does not meet criteria for involuntary psychiatric admission at this moment. No medications indicated. Galaviz act will be lifted. Assessment & Plan Estimated LOS: Benigno Blanca MD Aug 26, 2017 12:01
[2017-08-26] MEDS: LACTOBACILLUS ACIDOPHILUS TAB PO SCH ×2 (12:36→18:46)
[2017-08-26] MEDS: MAGNESIUM SULFATE 1 GM PREMIX 100 ML IV SCH ×2 (12:37→15:00)
[2017-08-26 13:50] VITALS: BP 118/58; PULSE 94; RESP 20; TEMP 97.5; O2SAT 99
[2017-08-26 14:36] LABS: BACTERIA, URINE RARE /hpf; BLOOD, URINE TRACE (NEG); GLUCOSE,URINE 300 mg/dL (NEG); KETONE, URINE 150 mg/dL (NEG); MUCUS URINE FEW /lpf (OCC); NITRITE,URINE NEG (NEG); SQUAMOUS EPITHELIAL CELL URINE <1 /hpf (0-5); URINE COLOR YELLOW (YELLW/STRAW); URINE LEUKOCYTE ESTERASE NEG (NEG)
[2017-08-26 14:40] LABS: BILIRUBIN, URINE NEG (NEG)
[2017-08-26 17:18] LABS: HEMOGLOBIN A1C 4.8 % (4.3-6.0)
--- NOTE | 2017-08-26 18:41 | EKG ---
Date Performed: 08/25/2017 Time Performed: 23:20:35 PTAGE: 86 years EKG: Sinus rhythm WITH OCCASIONAL VENTRICULAR PREMATURE COMPLEXES WITH OCCASIONAL SUPRAVENTRICULAR PREMATURE COMPLEXES INDETERMINATE AXIS RIGHT BUNDLE BRANCH BLOCK ABNORMAL ECG PREVIOUS TRACING : 03/26/2016 00.27 Since the prior tracing, there has been no significant conrad DOCTOR: Debora Mckeon Interpretating Date/Time 08/26/2017 18:39:26
[2017-08-26 19:32] VITALS: BP 122/60; PULSE 98; RESP 16; TEMP 98; O2SAT 94
[2017-08-26 23:19] VITALS: BP 118/70; PULSE 97; RESP 20; TEMP 98.8; O2SAT 96
[2017-08-27] VITALS (8 sets, daily range): BP systolic 111–148; BP diastolic 57–65; PULSE 85–97; RESP 16–20; TEMP 97.7–100.4; O2SAT 95–100
[2017-08-27] MEDS: SODIUM CHLOR 0.9% 1000 ML INJ 1,000 ML IV SCH (08:52)
[2017-08-27] MEDS: LACTOBACILLUS ACIDOPHILUS TAB PO SCH ×3 (08:53→18:11)
[2017-08-27] MEDS: PANTOPRAZOLE SOD 40 MG DELAYED RELEASE TAB PO SCH (08:53)
[2017-08-27] MEDS: SODIUM CHLORIDE 0.9% FLUSH 10 ML FLUSH IV FLUSH SCH ×2 (08:53→21:00)
[2017-08-27] MEDS: DOCUSATE SODIUM 50 MG/SENNA 8.6 MG TAB PO SCH ×2 (08:53→21:00)
[2017-08-27] MEDS ORDERED: ACETAMINOPHEN 325 MG TAB PO PRN (09:00)
--- NOTE | 2017-08-27 09:16 | HHI.DS ---
Discharge Summary Admission Date Aug 26, 2017 at 02:06 Admitting Diagnosis Generalized weakness (1) Self-care deficit in patient living alone ICD Code: R46.89 - Other symptoms and signs involving appearance and behavior (2) Gait instability ICD Code: R26.81 - Unsteadiness on feet (3) Rhabdomyolysis ICD Code: M62.82 - Rhabdomyolysis (4) DM (diabetes mellitus) ICD Code: E11.9 - Type 2 diabetes mellitus without complications Status: Chronic Brief History - From Admission This is an 86-year-old male with a PMH of HTN and DM who was brought to the ER by Police under Galaviz Act secondary to confusion and unable to care for self. Per Police report, patient refusing medical attention and had defecated on the floor. Noted to be confused at that time. On arrival, BP 138/65, HR 100, O2 sat 100% on RA, Afebrile. CBC essentially unremarkable. Chemistry unremarkable except for BS 217. CPK 735. CT Head w/ no acute findings. Patient was gotten up to ambulate, however noted to have significant gait instability which we were asked to admit. Remains under Galaviz Act at this time. CBC/BMP: 08/26/17 0036 08/26/17 0036 Significant Findings Laboratory Tests Test 08/26/17 00:36 08/26/17 14:10 Red Blood Count 2.83 MIL/MM3 (4.50-5.90) Hemoglobin 9.1 GM/DL (13.0-17.0) Hematocrit 27.6 % (39.0-51.0) Red Cell Distribution Width 18.3 % (11.6-17.2) Platelet Count 604 TH/MM3 (150-450) Mean Platelet Volume 6.5 FL (7.0-11.0) Neutrophils (%) (Auto) 83.6 % (16.0-70.0) Lymphocytes (%) (Auto) 8.9 % (9.0-44.0) Neutrophils # (Auto) 9.0 TH/MM3 (1.8-7.7) Blood Urea Nitrogen 23 MG/DL (7-18) Random Glucose 217 MG/DL (74-106) Calcium Level 8.4 MG/DL (8.5-10.1) Magnesium Level 1.4 MG/DL (1.5-2.5) Carbon Dioxide Level 16.9 MEQ/L (21.0-32.0) Anion Gap 16 MEQ/L (5-15) Total Creatine Kinase 735 U/L (39-308) Creatine Kinase MB 13.8 NG/ML (0.5-3.6) Urine Protein 30 mg/dL (NEG-TRACE) Urine Glucose (UA) 300 mg/dL (NEG) Urine Ketones 150 mg/dL (NEG) Urine Occult Blood TRACE (NEG) Urine Bacteria RARE /hpf (NONE) Urine Mucus FEW /lpf (OCC) PE at Discharge GENERAL: Well-nourished, well-developed pleasant elderly male patient in [facility]. SKIN: Warm and dry. No rash. HEENT: Normocephalic. Atraumatic. Pupils equal and round. Mucous membranes pink and moist. NECK: Supple. Trachea midline. CARDIOVASCULAR: Regular rate and rhythm. S1, S2 noted. No murmur appreciated. RESPIRATORY: No accessory muscle use. Clear to auscultation. Breath sounds equal bilaterally. GASTROINTESTINAL: Abdomen soft, non-tender, nondistended. Normoactive bowel sounds x4. MUSCULOSKELETAL: No obvious deformities. Extremities without clubbing, cyanosis , or edema. NEUROLOGICAL: Awake and alert. No obvious cranial nerve deficits. Motor grossly within normal limits. 5/5 strength bilateral upper and lower extremities. Normal speech. PSYCHIATRIC: Appropriate mood and affect; insight and judgment normal. Helen Partida MD Aug 27, 2017 09:16
[2017-08-27] MEDS: INSULIN ASPART SUPPLEMENTAL SCALE SQ SCH ×4 (09:23→21:00)
[2017-08-27 09:52] LABS: AUTOMATED NEUTROPHIL # 5.7 TH/MM3 (1.8-7.7); BASOPHIL % 0.2 % (0.0-2.0); EOSINOPHIL % 0.4 % (0.0-4.0); HEMATOCRIT 22.3 % (39.0-51.0); HEMOGLOBIN 7.4 GM/DL (13.0-17.0); LYMPH % 12.8 % (9.0-44.0); MEAN CELL VOLUME 96.4 FL (80.0-100.0); MEAN CORPUSCULAR HEMOGLOBIN 31.9 PG (27.0-34.0); MEAN CORPUSCULAR HGB CONC 33.1 % (32.0-36.0); MEAN PLATELET VOLUME 6.5 FL (7.0-11.0); MONO % 11.1 % (0.0-8.0); MONOCYTE # 0.8 TH/MM3 (0-0.9); NEUT % 75.5 % (16.0-70.0); PLATELET COUNT 506 TH/MM3 (150-450); RED BLOOD COUNT 2.32 MIL/MM3 (4.50-5.90); RED CELL DISTRIBUTION WIDTH 17.8 % (11.6-17.2); WHITE BLOOD COUNT 7.5 TH/MM3 (4.0-11.0)
[2017-08-27 10:04] LABS: ALBUMIN 1.9 GM/DL (3.4-5.0); ALT (GPT) 24 U/L (12-78); AST (GOT) 20 U/L (15-37); BICARBONATE 21.8 MEQ/L (21.0-32.0); BLOOD UREA NITROGEN 13 MG/DL (7-18); CALCIUM 7.8 MG/DL (8.5-10.1); CHLORIDE 103 MEQ/L (98-107); CREATININE 0.52 MG/DL (0.60-1.30); GLOMERULAR FILTRATION RATE 151 ML/MIN (>89); GLUCOSE,RANDOM 150 MG/DL (74-106); MAGNESIUM 1.4 MG/DL (1.5-2.5); SODIUM (NA) 137 MEQ/L (136-145)
[2017-08-27 10:06] LABS: ALKALINE PHOSPHATASE 75 U/L (45-117); TOTAL BILIRUBIN ADULT 0.4 MG/DL (0.2-1.0); TOTAL PROTEIN 5.7 GM/DL (6.4-8.2)
[2017-08-27] MEDS ORDERED: POTASSIUM CHLORIDE 25 MEQ EFFERVESCENT TAB PO ONE (10:15)
[2017-08-27] MEDS: ACETAMINOPHEN/HYDROcodone 325 MG/5 MG TAB PO PRN (11:00)
--- NOTE | 2017-08-27 11:55 | HHI.PR ---
Subjective Remarks He is in bed he complains of right hip pain. Since he is not able to walk. Feels tired feels generalized weakness. Says he had diarrhea however per nurse did not have any bowel movements today. C. difficile is pending. He denies having any abdominal pain. No fever or chills. No chest pain or shortness of breath no cough. Also noted dropping his hemoglobin. Hemoccult negative transfuse. Objective Vitals Vital Signs Date Time Temp Pulse Resp B/P (MAP) Pulse Ox O2 Delivery O2 Flow Rate FiO2 08/27/17 08:00 97.7 96 18 122/57 (78) 97 08/27/17 03:19 98.5 87 16 128/61 (83) 96 08/26/17 23:19 98.8 97 20 118/70 (86) 96 08/26/17 19:32 98.0 98 16 122/60 (80) 94 08/26/17 13:50 97.5 94 20 118/58 (78) 99 I/O 08/26/17 08/26/17 08/26/17 08/27/17 08/27/17 08/27/17 07:00 15:00 23:00 07:00 15:00 23:00 # Voids 2 # Bowel Movements 2 Result Diagram: 08/27/17 0912 08/27/17 0912 Imaging Last Impressions Head CT 08/26/17 0000 Signed Impressions: Service Date/Time: Saturday, August 26, 2017 01:17 - CONCLUSION: 1. No acute intracranial abnormality. 2. Atrophy. 3. Chronic small vessel ischemic change. Brandon Narvaez Jr., MD Objective Remarks GENERAL: Well-nourished, well-developed pleasant elderly male patient in [facility]. CARDIOVASCULAR: Regular rate and rhythm. S1, S2 noted. No murmur appreciated. RESPIRATORY: No accessory muscle use. Clear to auscultation. Breath sounds equal bilaterally. GASTROINTESTINAL: Abdomen soft, non-tender, nondistended. Normoactive bowel sounds x4. MUSCULOSKELETAL: No obvious deformities. Extremities without clubbing, cyanosis , or edema. Pain of the right hip with range of motion. NEUROLOGICAL: Awake and alert. No obvious cranial nerve deficits. Motor grossly within normal limits. 5/5 strength bilateral upper and lower extremities. Normal speech. PSYCHIATRIC: Appropriate mood and affect; insight and judgment normal. A/P Problem List: (1) Self-care deficit in patient living alone ICD Code: R46.89 - Other symptoms and signs involving appearance and behavior (2) Gait instability ICD Code: R26.81 - Unsteadiness on feet (3) Rhabdomyolysis ICD Code: M62.82 - Rhabdomyolysis (4) DM (diabetes mellitus) ICD Code: E11.9 - Type 2 diabetes mellitus without complications Status: Chronic Assessment and Plan 86-year-old male with a PMH of HTN and DM who was brought to the ER by Police under Galaviz Act secondary to confusion and unable to care for self. Per Police report, patient refusing medical attention and had defecated on the floor. Noted to be confused at that time. Self Care Deficit: currently under Galaviz Act by Police for refusing treatment/ defecating on floor, transient confusion, unable to care for self. -CT Head w/ no acute findings, images reviewed by me. -Consult Psych for further evaluation. -Check U/a to eval for underlying UTI. Gait Instability: noted to be unstable w/ ambulation, unable to care for self. -PT/OT for eval/tx. -Consult Case Management for assistance with discharge planning Right hip pain. He had previously surgery performed on the left hip. A year ago. Check x-ray of right hip. Consider orthopedic doctor Kt Rhabdomyolysis: CPK 735. Suspect secondary to fall. -Give IVF for hydration -check UA -repeat labs today pending. Diarrhea: patient with diarrhea x4days. Afebrile, no leukocytosis. -check C.diff and stool studies -start Lactinex tid Weight Loss/Anemia: patient reports 25lbs weight loss over the past year secondary to decreased appetite. Patient with chronic normocytic anemia. Thrombocytosis -recommend outpatient follow up with GI for EGD/colonoscopy -However the hemoglobin dropped today and patient is very weak. We will transfuse. Monitor H&H. Check iron panel, ferritin, B12, folate. Will consult hematology Dyspepsia: patient reports chronic heartburn, on protonix at home -will continue patient's protonix -add Mylanta prn DM: Chronic -holding patient's home hypoglycemics -Monitor Accu-Cheks and cover with SSI for now -Check HgbA1c Sliding scale with Accu-Cheks. Hypomagnesemia: Mag 1.4, likely secondary to recent diarrhea -Give IV Mag Sulfate x2G -Repeat labs in the am DVT Prophylaxis: SCD/teds. Discharge Planning Discharge pending PT/OT eval, psychiatry eval, and stool studies. Noted with anemia workup pending, consult hematology Helen Partida MD Aug 27, 2017 11:54
[2017-08-27] MEDS ORDERED: LACTOBACILLUS ACIDOPHILUS TAB PO ONE (12:00)
[2017-08-27] MEDS ORDERED: LOPERAMIDE HCL 2 MG CAP PO PRN (12:00)
[2017-08-27 12:03] LABS: HEMATOCRIT 20.2 % (39.0-51.0)
[2017-08-27] MEDS ORDERED: SODIUM CHLOR 0.9% 250 ML INJ 250 ML IV ONE (12:15)
[2017-08-27] MEDS: MAGNESIUM SULFATE 1 GM PREMIX 100 ML IV SCH ×2 (14:16→16:36)
--- NOTE | 2017-08-27 15:35 | RADRPT ---
EXAM DATE/TIME: 08/27/2017 13:50 [facility] COMPARISON: HIP RIGHT (AP&LAT 2/3VWS) WO AP PELVIS, March 26, 2016, 17:54. INDICATIONS : Pain, fell 2 days ago. MEDICAL HISTORY : Gastroesophageal reflux disease. Cardiovascular disease. Diabetes mellitus type II. hypertansion SURGICAL HISTORY : right hip replacement 1 year ago. ENCOUNTER: Initial ACUITY: 2 days PAIN SCORE: 10/10 LOCATION: Right hip and pelvis FINDINGS: There is been previous dynamic compression screw and medullary mehran placement across the patient's fem oral neck fracture. This appears healed. Note is made of a small lucency through the left side of the pubic symphysis raising suspicion for a nondisplaced fracture through the pubic symphysis. The remainder of the visualized osseous structures are intact. There are degenerative changes within the right hip and the lumbar spine. CONCLUSION: 1. No acute fracture the right hip identified. There are postsurgical changes. 2. There is a lucency through the pubic symphysis which may be artifactual however a nondisplaced fra cture the pubic symphysis is not excluded. Santos Askew MD on August 27, 2017 at 15:32 Board Certified Radiologist. This report was verified electronically.
[2017-08-27 16:02] LABS: % SATURATION IRON PROFILE 7.4 % (20-50); IRON (FE) 15 MCG/DL (65-175); TOTAL IRON BINDING CAPACITY 203 MCG/DL (250-450)
[2017-08-27 16:27] LABS: FERRITIN 196 NG/ML (26-388); FOLATE 4.6 NG/ML (3.1-17.5)
[2017-08-28] MEDS: IRON SUCROSE INJ 100 MG in SODIUM CHLORIDE 0.9% INJ 100 ML IV SCH ×2 (00:21→08:19)
[2017-08-28] MEDS: LACTOBACILLUS ACIDOPHILUS TAB PO SCH ×3 (00:22→19:47)
--- NOTE | 2017-08-28 01:24 | MB ---
cc: Jerry Kauffman MD DATE OF CONSULT: 08/27/2017 REASON FOR CONSULTATION: Patient with severe anemia. HISTORY OF PRESENT ILLNESS: This is an 86-year-old male who has a history of hypertension and diabetes as well as history of right sided hip fracture who underwent hip repair surgery approximately 1 year ago. He was brought to the emergency room after EMS was called because he was found to be confused, was not able to take care of himself and he had defecated on the floor in his house. In the emergency room the patient was found to be anemic with a hemoglobin of 9.1. The patient was admitted to the hospital. He was found to be dehydrated and CPK was elevated consistent with rhabdomyolysis. On repeat labs today his hemoglobin has dropped to 7. He did have anemia studies which did show a low iron of 15, TIBC of 203, percent saturation was low at 7.4 and ferritin was 196. B12 and folate levels were normal. He had a low albumin of 1.9. When I saw this patient, he was awake and alert and quite pleasant. RN was present during this evaluation. The patient states that he lives by himself in his house. He states that he has a neighbor that occasionally takes care of him. He states that he no longer cooks his own food and people bring food for him. He says that he also goes for shopping to the local grocery store and usually brings home prepared meals. He says that he is still able to drive. He states that he spends most of his day sitting in a chair or couch. He follows with Dr. Worthy . She is his PCP. He states that he was told a few months ago that he was mildly anemic. He has had hip surgery approximately 1 year ago. He tells me that he went on a cruise subsequently. He has been having pain in his hip. He denies having any nose bleeds or gum bleeds or petechiae or bruising, no bright red blood per rectum or melena. He states that he has not been eating well for the past 2 months. His appetite has decreased. His family lives in [place]. 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 He moved to [place] approximately 20 years ago. He does not smoke cigarettes, he does not drink alcohol. No illicit drug use. REVIEW OF SYSTEMS: A comprehensive review of systems was completed which is negative except as described in the HPI. PAST MEDICAL HISTORY: Hypertension, diabetes, right hip pain which his chronic. PAST SURGICAL HISTORY: Right hip surgery. FAMILY HISTORY: Reviewed and is non-contributory to this admission. SOCIAL HISTORY: He lives by himself. He does not drink alcohol. No illicit drug use. He is a retired cnc machinist. MEDICATIONS: Lactobacillus 1 tablet p.o. q. 12 hours, iron sucrose, Imodium p.r.n., Tylenol 650 p.o. q. 4 hours p.r.n., pantoprazole 40 mg p.o. daily, senna docusate p.r.n., insulin sliding scale, Zofran p.r.n., lactulose p.r.n. ALLERGIES: NO KNOWN DRUG ALLERGIES. ASSESSMENT AND PLAN: This is an elderly 86-year-old male who appears debilitated and ill appearing. He is awake and alert in a pleasant mood. He is brought to the emergency department after he was found to be confused and had defecated on himself. 1. Severe anemia with underlying iron deficiency. B12 and folate levels are normal. He is receiving 1 unit of packed red blood cells. I agree with giving him iron infusions. Will obtain hemolysis labs. His total bilirubin is not elevated so it is less likely that there is any underlying hemolysis. I would recommend obtaining a stool Hemoccult. I would recommend obtaining a gastroenterology evaluation. Will obtain a serum protein electrophoresis. Check hepatitis B and C panel. He appears to be malnourished and it is likely that his iron deficiency is likely due to poor oral intake. 2. Hypoalbuminemia with albumin of 1.9. Dietitian consult. Ensure t.i.d. with meals. 3. Rhabdomyolysis, improvement with hydration. 4. Debilitated state and unable to take care of himself. He will likely need placement. Thank you for allowing me to participate in the care of this patient. I will continue to follow this patient along. MD CECILIA Delaney/rt , 12:30 AM , 01:23 AM FRANK
[2017-08-28 01:47] LABS: AUTOMATED NEUTROPHIL # 5.2 TH/MM3 (1.8-7.7); BASOPHIL % 0.3 % (0.0-2.0); EOSINOPHIL # 0.1 TH/MM3 (0-0.4); HEMATOCRIT 23.9 % (39.0-51.0); LYMPH % 19.9 % (9.0-44.0); LYMPHOCYTE # 1.5 TH/MM3 (1.0-4.8); MEAN CELL VOLUME 93.7 FL (80.0-100.0); MEAN CORPUSCULAR HEMOGLOBIN 31.5 PG (27.0-34.0); MEAN CORPUSCULAR HGB CONC 33.6 % (32.0-36.0); MEAN PLATELET VOLUME 6.4 FL (7.0-11.0); MONO % 11.9 % (0.0-8.0); MONOCYTE # 0.9 TH/MM3 (0-0.9); NEUT % 66.9 % (16.0-70.0); PLATELET COUNT 429 TH/MM3 (150-450); RED BLOOD COUNT 2.55 MIL/MM3 (4.50-5.90); RED CELL DISTRIBUTION WIDTH 17.5 % (11.6-17.2); WHITE BLOOD COUNT 7.8 TH/MM3 (4.0-11.0)
[2017-08-28 02:25] LABS: BICARBONATE 24.6 MEQ/L (21.0-32.0); CALCIUM 7.3 MG/DL (8.5-10.1); CREATININE 0.54 MG/DL (0.60-1.30)
[2017-08-28 02:42] LABS: TOTAL PROTEIN 5.8 GM/DL (6.4-8.2)
[2017-08-28 03:13] VITALS: BP 142/63; PULSE 86; RESP 16; TEMP 100.3; O2SAT 95
[2017-08-28] MEDS: SODIUM CHLOR 0.9% 1000 ML INJ 1,000 ML IV SCH ×2 (04:30→19:49)
[2017-08-28 07:13] VITALS: BP 136/62; PULSE 71; RESP 18; TEMP 99.2; O2SAT 95
[2017-08-28] MEDS: INSULIN ASPART SUPPLEMENTAL SCALE SQ SCH ×4 (08:00→19:49)
[2017-08-28] MEDS: DOCUSATE SODIUM 50 MG/SENNA 8.6 MG TAB PO SCH ×2 (08:18→19:47)
[2017-08-28] MEDS: PANTOPRAZOLE SOD 40 MG DELAYED RELEASE TAB PO SCH (08:18)
[2017-08-28] MEDS: SODIUM CHLORIDE 0.9% FLUSH 10 ML FLUSH IV FLUSH SCH ×2 (08:19→19:47)
--- NOTE | 2017-08-28 10:01 | HHI.PR ---
Subjective Remarks The patient is in bed says he feeling much better than yesterday. Still with weakness however improved. Still with diarrhea not able to tell me how many times. No abdominal pain. No fever chills overnight. No nausea or vomiting. Says he is not eating well because he has low appetite. Still with hip pain Objective Vitals Vital Signs Date Time Temp Pulse Resp B/P (MAP) Pulse Ox O2 Delivery O2 Flow Rate FiO2 08/28/17 07:13 99.2 71 18 136/62 (86) 95 08/28/17 03:13 100.3 86 16 142/63 (89) 95 08/27/17 23:28 100.4 85 16 127/60 (82) 95 08/27/17 20:04 100.3 94 20 124/58 98 08/27/17 19:49 98.4 97 16 121/57 99 08/27/17 19:13 100.0 95 20 148/65 (92) 97 08/27/17 16:00 98.2 91 18 124/58 (80) 100 08/27/17 12:00 97.8 96 18 111/58 (75) 97 I/O 08/27/17 08/27/17 08/27/17 08/28/17 08/28/17 08/28/17 07:00 15:00 23:00 07:00 15:00 23:00 Intake Total 400 ml Balance 400 ml Packed Cells 400 ml # Voids 2 2 # Bowel Movements 2 1 Result Diagram: 08/28/17 0130 08/28/17 0130 Imaging Last Impressions Hip and Pelvis X-Ray 08/27/17 0000 Signed Impressions: Service Date/Time: Sunday, August 27, 2017 13:50 - CONCLUSION: 1. No acute fracture the right hip identified. There are postsurgical changes. 2. There is a lucency through the pubic symphysis which may be artifactual however a nondisplaced fracture the pubic symphysis is not excluded. Santos Askew MD Head CT 08/26/17 0000 Signed Impressions: Service Date/Time: Saturday, August 26, 2017 01:17 - CONCLUSION: 1. No acute intracranial abnormality. 2. Atrophy. 3. Chronic small vessel ischemic change. Brandon Narvaez Jr., MD Objective Remarks GENERAL: Well-nourished, well-developed pleasant elderly male patient in NAD. CARDIOVASCULAR: Regular rate and rhythm. S1, S2 noted. No murmur appreciated. RESPIRATORY: No accessory muscle use. Clear to auscultation. Breath sounds equal bilaterally. GASTROINTESTINAL: Abdomen soft, non-tender, nondistended. Normoactive bowel sounds x4. MUSCULOSKELETAL: No obvious deformities. Extremities without clubbing, cyanosis , or edema. Pain of the right hip with range of motion. NEUROLOGICAL: Awake and alert. No obvious cranial nerve deficits. Motor grossly within normal limits. 5/5 strength bilateral upper and lower extremities. Normal speech. PSYCHIATRIC: Appropriate mood and affect; insight and judgment normal. A/P Problem List: (1) Self-care deficit in patient living alone ICD Code: R46.89 - Other symptoms and signs involving appearance and behavior (2) Gait instability ICD Code: R26.81 - Unsteadiness on feet (3) Rhabdomyolysis ICD Code: M62.82 - Rhabdomyolysis (4) DM (diabetes mellitus) ICD Code: E11.9 - Type 2 diabetes mellitus without complications Status: Chronic Assessment and Plan 86-year-old male with a PMH of HTN and DM who was brought to the ER by Police under [place] Act secondary to confusion and unable to care for self. Per Police report, patient refusing medical attention and had defecated on the floor. Noted to be confused at that time. Self Care Deficit: currently under [place] Act by Police for refusing treatment/ defecating on floor, transient confusion, unable to care for self. -CT Head w/ no acute findings, images reviewed by me. -Consult Psych for further evaluation. -Check U/a to eval for underlying UTI. Gait Instability: noted to be unstable w/ ambulation, unable to care for self. -PT/OT for eval/tx. -Consult Case Management for assistance with discharge planning Right hip pain. He had previously surgery performed on the left hip. A year ago. X-ray of right hip no acute fracture. Consider orthopedic eval Rhabdomyolysis: CPK 735. Suspect secondary to fall. -Give IVF for hydration -check UA -repeat labs today pending. Diarrhea due to Norovirus: patient with diarrhea x4days. Afebrile, no leukocytosis. -C.diff is negative and stool studies reviewed. Patient will Norovirus -start Lactinex tid Weight Loss/Anemia: patient reports 25lbs weight loss over the past year secondary to decreased appetite. Patient with chronic normocytic anemia. Thrombocytosis -Consult GI plan for EGD/colonoscopy 08/29/17 -However the hemoglobin dropped 08/28/17 and patient is very weak. Received transfusion 1 unit of red blood cells. Monitor H&H. Check iron panel review deficiency. B12, folate normal. Consult hematology. Dyspepsia: patient reports chronic heartburn, on protonix at home -will continue patient's protonix -add Mylanta prn. Consult GI plan for EGD colonoscopy DM: Chronic -holding patient's home hypoglycemics -Monitor Accu-Cheks and cover with SSI for now -Check HgbA1c Sliding scale with Accu-Cheks. Hypomagnesemia: Mag 1.4, likely secondary to recent diarrhea -Give IV Mag Sulfate x2G -Repeat labs in the am DVT Prophylaxis: SCD/teds. Discharge Planning Discharge pending PT/OT eval, psychiatry eval, and stool studies. Plan for EGD colonoscopy tomorrow morning Helen Partida MD Aug 28, 2017 10:01
--- NOTE | 2017-08-28 10:02 | PD.CONS ---
HPI History of Present Illness This is a 86 year old male admitted under castillo act for confusion, which has since been lifted. GI is consulted for anemia. He has been having frequent loose stool for the last 3 weeks, watery at times. He has had decreased appetite. Admits loss 25lbs in the last 2 weeks. Denies change in medications or diet at this time. Denies recent travel, sick contacts. No fevers. He denies blood in stool, black tarry stool, blood in urine. Pt says he doesn't always eat well and sometimes only once a day and attributes his anemia to this. Denies abd pain, nausea, vomiting. Never had colonoscopy or EGD. He does not take blood thinners. (Hannah Olmedo) PFSH Past Medical History PMH: HTN and DM Past Surgical History PAST SURGICAL HISTORY: Right Hip Surgery (Hannah Olmedo) Coded Allergies: No Known Allergies (Unverified Allergy, Unknown, 08/26/17) Family History PAST FAMILY HISTORY: Reviewed. No h/o DM or CAD Social History PAST SOCIAL HISTORY: Occasional alcohol. Negative for tobacco or drugs. (Hannah Olmedo) Review of Systems Constitutional: COMPLAINS OF: Weight loss, DENIES: Fever Endocrine: DENIES: Polydipsia Eyes: DENIES: Blurred vision Ears, nose, mouth, throat: DENIES: Hearing loss Respiratory: DENIES: Cough Cardiovascular: DENIES: Chest pain Gastrointestinal: COMPLAINS OF: Diarrhea, DENIES: Abdominal pain, Black stools , Bloody stools, Constipation, Nausea, Vomiting, Hematemesis Genitourinary: DENIES: Hematuria Musculoskeletal: DENIES: Joint Swelling Integumentary: DENIES: Jaundice Hematologic/lymphatic: DENIES: Bruising Immunologic/allergic: DENIES: Eczema Neurologic: DENIES: Abnormal gait Psychiatric: DENIES: Anxiety (Hannah Olmedo) GI Exam Vitals I&O Vital Signs Date Time Temp Pulse Resp B/P (MAP) Pulse Ox O2 Delivery O2 Flow Rate FiO2 08/28/17 07:13 99.2 71 18 136/62 (86) 95 08/28/17 03:13 100.3 86 16 142/63 (89) 95 08/27/17 23:28 100.4 85 16 127/60 (82) 95 08/27/17 20:04 100.3 94 20 124/58 98 08/27/17 19:49 98.4 97 16 121/57 99 08/27/17 19:13 100.0 95 20 148/65 (92) 97 08/27/17 16:00 98.2 91 18 124/58 (80) 100 08/27/17 12:00 97.8 96 18 111/58 (75) 97 I/O 08/27/17 08/27/17 08/27/17 08/28/17 08/28/17 08/28/17 07:00 15:00 23:00 07:00 15:00 23:00 Intake Total 400 ml Balance 400 ml Packed Cells 400 ml # Voids 2 2 # Bowel Movements 2 1 Imaging Last Impressions Hip and Pelvis X-Ray 08/27/17 0000 Signed Impressions: Service Date/Time: Sunday, August 27, 2017 13:50 - CONCLUSION: 1. No acute fracture the right hip identified. There are postsurgical changes. 2. There is a lucency through the pubic symphysis which may be artifactual however a nondisplaced fracture the pubic symphysis is not excluded. Santos Askew MD Head CT 08/26/17 0000 Signed Impressions: Service Date/Time: Saturday, August 26, 2017 01:17 - CONCLUSION: 1. No acute intracranial abnormality. 2. Atrophy. 3. Chronic small vessel ischemic change. Brandon Narvaez Jr., MD Laboratory Test 08/27/17 11:10 08/27/17 15:15 08/28/17 01:30 Hemoglobin 7.0 GM/DL 8.0 GM/DL Hematocrit 20.2 % 23.9 % Iron Level 15 MCG/DL Total Iron Binding Capacity 203 MCG/DL Percent Iron Saturation 7.4 % Ferritin 196 NG/ML Vitamin B12 Level 883 PG/ML Folate 4.6 NG/ML White Blood Count 7.8 TH/MM3 Red Blood Count 2.55 MIL/MM3 Mean Corpuscular Volume 93.7 FL Mean Corpuscular Hemoglobin 31.5 PG Mean Corpuscular Hemoglobin Concent 33.6 % Red Cell Distribution Width 17.5 % Platelet Count 429 TH/MM3 Mean Platelet Volume 6.4 FL Neutrophils (%) (Auto) 66.9 % Lymphocytes (%) (Auto) 19.9 % Monocytes (%) (Auto) 11.9 % Eosinophils (%) (Auto) 1.0 % Basophils (%) (Auto) 0.3 % Neutrophils # (Auto) 5.2 TH/MM3 Lymphocytes # (Auto) 1.5 TH/MM3 Monocytes # (Auto) 0.9 TH/MM3 Eosinophils # (Auto) 0.1 TH/MM3 Basophils # (Auto) 0.0 TH/MM3 CBC Comment DIFF FINAL Differential Comment Blood Urea Nitrogen 11 MG/DL Creatinine 0.54 MG/DL Random Glucose 126 MG/DL Total Protein 5.8 GM/DL Calcium Level 7.3 MG/DL Sodium Level 135 MEQ/L Potassium Level 3.3 MEQ/L Chloride Level 103 MEQ/L Carbon Dioxide Level 24.6 MEQ/L Anion Gap 7 MEQ/L Estimat Glomerular Filtration Rate 145 ML/MIN Protein Corrected Calcium 8.0 MG/DL Date/Time Source Procedure Growth Status 08/27/17 10:00 Stool Stool Stool Occult Blood (MISSAEL) - Final HEMOCCULT NEGATIVE Complete Physical Examination HEENT: PERRL; normocephalic; atraumatic; no jaundice. CHEST: CTA CARDIAC: RRR ABDOMEN: Soft, nondistended, nontender; no hepatosplenomegaly; bowel sounds are present in all four quadrants. EXTREMITIES: No clubbing, cyanosis, or edema. SKIN: Normal; no rash; no jaundice. 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 (Hannah Olmedo) Assessment and Plan Plan ASSESSMENT - loose stool - for last 3 weeks up to 3 times daily. + for norovirus. no blood c diff neg - anemia - normocytic. stool heme neg. hematology consulted. no obvious bleeding. never had EGD or colonoscopy - weight loss - lost 25lbs last 3 weeks.likely 2/2 norovirus. PLAN - EGD and colonoscopy tomorrow - obtain consent - clear liquids today - NPO after midnight - mg citrate prep - monitor labs - notify GI of active bleeding - further recs to follow based on results above pt seen by myself and Dr Juárez and this note is on his behalf (Hannah Olmedo) Physician Comments Seen and examined, plan as above, EGD and Colonoscopy in AM. Thank you for the consult. (Brayden Juárez MD) Hannah Olmedo Aug 28, 2017 10:02 Brayden Juárez MD Aug 28, 2017 12:40
[2017-08-28 13:21] VITALS: BP 120/65; PULSE 84; RESP 18; TEMP 97.8; O2SAT 95
[2017-08-28] MEDS ORDERED: MAGNESIUM CITRATE SOLN 300 ML BTL PO ONE ×2 (16:00→18:00)
[2017-08-28 16:32] VITALS: BP 127/60; PULSE 87; RESP 18; TEMP 98.7; O2SAT 99
[2017-08-28] MEDS: ALUMINUM/MAGNESIUM/SIMETH 30 ML CUP PO PRN (19:47)
[2017-08-28 20:41] VITALS: BP 131/82; PULSE 101; RESP 20; TEMP 100.1; O2SAT 95
[2017-08-29 01:02] VITALS: BP 137/63; PULSE 103; RESP 20; TEMP 99.1; O2SAT 97
[2017-08-29 04:51] VITALS: BP 135/63; PULSE 72; RESP 16; TEMP 98.8; O2SAT 97
[2017-08-29 07:31] VITALS: BP 122/58; PULSE 77; RESP 18; TEMP 98.2; O2SAT 98
[2017-08-29] MEDS: INSULIN ASPART SUPPLEMENTAL SCALE SQ SCH ×4 (08:09→23:24)
--- NOTE | 2017-08-29 10:02 | GIPROC ---
[facility] [address] [facility]. [facility] [address], [address] EGD PROCEDURE REPORT EXAM DATE: 08/29/2017 PATIENT NAME: Rufus Escobedo MR #: [id number] BIRTHDATE: 1930 ATTENDING: Brayden Juárez MD ORDER #: [id number] GRADES 1 THRU 6 HOME TEACHER: Adore Pan and Jarett Kolb STATUS: inpatient INDICATIONS: The patient is a 86 yr old male here for an EGD due to anemia PROCEDURE PERFORMED: EGD w/ biopsy MEDICATIONS: None and Per Anesthesia. TOPICAL ANESTHETIC: none CONSENT: The patient understands the risks and benefits of the procedure and understands that these risks include, but are not limited to: sedation, allergic reaction, infection, perforation and/or bleeding. Alternative means of evaluation and treatment include, among others: physical exam, x-rays, and/or surgical intervention. The patient elects to proceed with this endoscopic procedure. medical equipment was checked for proper function. Hand hygiene and appropriate measures for infection prevention was taken. After the risks, benefits and alternatives of the procedure were thoroughly explained, Informed consent was verified, confirmed and timeout was successfully executed by the treatment team. The patient was anesthetized with topical anesthesia and the EC-[id number] (Pedi C) endoscope was introduced through the mouth and advanced to the second portion of the duodenum. Retroflexion was performed and was normal The gastroscope was then slowly withdrawn and removed. ESOPHAGUS: There was LA Class B esophagitis noted. A small hiatal hernia was noted. STOMACH: Three medium sized non-bleeding, round, shallow and clean-based ulcers were found in the gastric antrum. Biopsies were taken at edge of the ulcers and at the center of the ulcers. DUODENUM: A large non-bleeding non-bleeding, round and clean-based ulcer was found in the 2nd part of the duodenum. ADVERSE EVENTS: There were no complications. IMPRESSIONS: 1. There was LA Class B esophagitis noted 2. Small hiatal hernia 3. Three medium sized ulcers were found in the gastric antrum; biopsies were taken 4. Large non-bleeding ulcer was found in the 2nd part of the duodenum 5. Retroflexion was performed and was normal RECOMMENDATIONS: 1. Await biopsy results. Biopsy results will not be ready for 7-10 days. If you don't hear from us in two weeks, call our office for biopsy results. 2. Continue PPI 3. Avoid NSAIDS PATIENT CONDITION: stable DISPOSITION: Observation REPEAT EXAM: NONE Brayden Juárez MD eSigned: Brayden Juárez MD 08/29/2017 10:02 AM cc: PATIENT NAME: Rufus Escobedo MR#: [id number]
--- NOTE | 2017-08-29 10:06 | GIPROC ---
[facility] [address] [facility]. [facility], [address] COLONOSCOPY PROCEDURE REPORT EXAM DATE: 08/29/2017 PATIENT NAME: Rufus Escobedo MR #: [id number] BIRTHDATE: 1930 ENDOSCOPIST: Brayden Juárez MD ORDER #: [id number] DYE COLORIST FORMULATOR: Adore Pan and Jarett Kolb STATUS: inpatient INDICATIONS: The patient is a 86 yr old male here for a colonoscopy due to anemia, non-specific PROCEDURE PERFORMED: Colonoscopy with biopsy MEDICATIONS: None and Per Anesthesia. PREP QUALITY: poor PREP TYPE:Magnesium Citrate ESTIMATED BLOOD LOSS: None CONSENT: The patient understands the risks and benefits of the procedure and understands that these risks include, but are not limited to: sedation, allergic reaction, infection, perforation and/or bleeding. Alternative means of evaluation and treatment include, among others: physical exam, x-rays, and/or surgical intervention. The patient elects to proceed with this endoscopic procedure. medical equipment was checked for proper function. Hand hygiene and appropriate measures for infection prevention was taken. After the risks, benefits and alternatives of the procedure were thoroughly explained, Informed consent was verified, confirmed and timeout was successfully executed by the treatment team. A digital exam revealed no abnormalities of the rectum The Pentax EC-[id number] endoscope was introduced through the anus and advanced to the cecum, which was identified by both the appendix and ileocecal valve. The instrument was then slowly withdrawn as the colon was fully examined. COLON FINDINGS: Diverticulum was found in the sigmoid colon and descending colon. The opening was medium sized. A large sized circumferential patch of colitis was found in the sigmoid colon, descending colon, at the splenic flexure, in the transverse colon, at the hepatic flexure, and in the ascending colon. The mucosa was edematous, erythematous, friable, ulcerated and oozing blood. Multiple biopsies were performed using cold forceps. Retroflexion was not performed due to a narrow rectal vault The scope was then completely withdrawn from the patient and the procedure terminated. PROCEDURE WITHDRAWAL TIME:9minutes ADVERSE EVENTS: There were no complications. IMPRESSIONS: 1. 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 Large sized circumferential colitis was found in the sigmoid colon, descending colon, at the splenic flexure, in the transverse colon, at the hepatic flexure, and in the ascending colon; The mucosa was edematous, erythematous, friable, ulcerated and oozing blood; multiple biopsies were performed using cold forceps RECOMMENDATIONS: 1. Await biopsy results. Biopsy results will not be ready for 7-10 days. If you don't hear from us in two weeks, call our office for results. 2. High fiber diet RECALL: NONE Brayden Juárez MD eSigned: Brayden Juárez MD 08/29/2017 10:06 AM cc: PATIENT NAME: Rufus Escobedo MR#: [id number]
--- NOTE | 2017-08-29 10:36 | HHI.PR ---
Subjective Remarks Went for EGD/colonoscopy , seen thereafter Spoke with Pt patient was able to ambulate yesterday with help and is much better Patient still with diarrhea not able to tell me how many times No abd pain. No fever or chills. Objective Vitals Vital Signs Date Time Temp Pulse Resp B/P (MAP) Pulse Ox O2 Delivery O2 Flow Rate FiO2 08/29/17 10:15 98.2 80 16 133/62 (85) 99 Room Air 08/29/17 10:10 98.2 73 16 122/67 (85) 98 Room Air 08/29/17 07:31 98.2 77 18 122/58 (79) 98 08/29/17 04:51 98.8 72 16 135/63 (87) 97 08/29/17 01:02 99.1 103 20 137/63 (87) 97 08/28/17 20:41 100.1 101 20 131/82 (98) 95 08/28/17 16:32 98.7 87 18 127/60 (82) 99 08/28/17 13:21 97.8 84 18 120/65 (83) 95 I/O 08/28/17 08/28/17 08/28/17 08/29/17 08/29/17 08/29/17 07:00 15:00 23:00 07:00 15:00 23:00 Intake Total 400 ml 400 ml Balance 400 ml 400 ml Packed Cells 400 ml Other 400 ml Result Diagram: 08/28/17 0130 08/28/17 0130 Imaging Last Impressions Hip and Pelvis X-Ray 08/27/17 0000 Signed Impressions: Service Date/Time: Sunday, August 27, 2017 13:50 - CONCLUSION: 1. No acute fracture the right hip identified. There are postsurgical changes. 2. There is a lucency through the pubic symphysis which may be artifactual however a nondisplaced fracture the pubic symphysis is not excluded. Santos Askew MD Head CT 08/26/17 0000 Signed Impressions: Service Date/Time: Saturday, August 26, 2017 01:17 - CONCLUSION: 1. No acute intracranial abnormality. 2. Atrophy. 3. Chronic small vessel ischemic change. Brandon Narvaez Jr., MD Objective Remarks GENERAL: Well-nourished, well-developed pleasant elderly male patient in NAD. CARDIOVASCULAR: Regular rate and rhythm. S1, S2 noted. No murmur appreciated. RESPIRATORY: No accessory muscle use. Clear to auscultation. Breath sounds equal bilaterally. GASTROINTESTINAL: Abdomen soft, non-tender, nondistended. Normoactive bowel sounds x4. MUSCULOSKELETAL: No obvious deformities. Extremities without clubbing, cyanosis , or edema. Pain of the right hip with range of motion. NEUROLOGICAL: Awake and alert. No obvious cranial nerve deficits. Motor grossly within normal limits. 5/5 strength bilateral upper and lower extremities. Normal speech. PSYCHIATRIC: Appropriate mood and affect; insight and judgment normal. Procedures Status post EGD/colonoscopy by Dr. Cortes 08/29/17 A/P Problem List: (1) Self-care deficit in patient living alone ICD Code: R46.89 - Other symptoms and signs involving appearance and behavior (2) Gait instability ICD Code: R26.81 - Unsteadiness on feet (3) Rhabdomyolysis ICD Code: M62.82 - Rhabdomyolysis (4) DM (diabetes mellitus) ICD Code: E11.9 - Type 2 diabetes mellitus without complications Status: Chronic Assessment and Plan 86-year-old male with a PMH of HTN and DM who was brought to the ER by Police under [place] Act secondary to confusion and unable to care for self. Per Police report, patient refusing medical attention and had defecated on the floor. Noted to be confused at that time. Self Care Deficit: currently under [place] Act by Police for refusing treatment/ defecating on floor, transient confusion, unable to care for self. -CT Head w/ no acute findings, images reviewed by me. -Consult Psych for further evaluation. -Check U/a to eval for underlying UTI. Gait Instability: noted to be unstable w/ ambulation, unable to care for self. -PT/OT for eval/tx. -Consult Case Management for assistance with discharge planning Right hip pain. He had previously surgery performed on the left hip. A year ago. X-ray of right hip no acute fracture. Consider orthopedic eval Rhabdomyolysis: CPK 735. Suspect secondary to fall. CPK trending down monitor -Give IVF for hydration -check UA Diarrhea due to Norovirus. Colitis Gastric ulcers and duodenal ulcer. Esophagitis. Hiatal hernia patient with diarrhea. Afebrile, no leukocytosis. C.diff is negative and stool studies reviewed. Patient will Norovirus Continue Lactinex tid Status post EGD and colonoscopy 08/29/17 Patient with class B esophagitis, hiatal hernia, medium sized ulcers in the gastric antrum, large nonbleeding ulcers on the second part of the duodenum, biopsies were performed. Also patient with colitis Avoid NSAIDs, continue PPI Weight Loss/Anemia: patient reports 25lbs weight loss over the past year secondary to decreased appetite. Patient with chronic normocytic anemia. Thrombocytosis -Consult GI plan. EGD/colonoscopy 08/29/17 -However the hemoglobin dropped 08/28/17 and patient is very weak. Received transfusion 1 unit of red blood cells. Monitor H&H. Check iron panel review deficiency. B12, folate normal. Consult hematology. Dyspepsia: patient reports chronic heartburn, on protonix at home -will continue patient's protonix -add Mylanta prn. Consult GI. EGD colonoscopy DM2: Chronic -holding patient's home hypoglycemics -Monitor Accu-Cheks and cover with SSI for now -Check HgbA1c Sliding scale with Accu-Cheks. Hypomagnesemia: Mag 1.4, on admission, likely secondary to recent diarrhea -Give IV Mag Sulfate x2G -Repeat labs in the am DVT Prophylaxis: SCD/teds. Discharge Planning Discharge pending PT/OT eval, psychiatry eval, and stool studies. S/p EGD colonoscopy Discharge when improved and cleared by consultants. PT recommends rehab Case management consulted for discharge planning Helen Partida MD Aug 29, 2017 10:36
[2017-08-29] MEDS: SODIUM CHLORIDE 0.9% FLUSH 10 ML FLUSH IV FLUSH SCH ×2 (10:39→22:45)
[2017-08-29] MEDS: DOCUSATE SODIUM 50 MG/SENNA 8.6 MG TAB PO SCH ×3 (10:40→22:45)
[2017-08-29] MEDS: PANTOPRAZOLE SOD 40 MG DELAYED RELEASE TAB PO SCH (10:40)
[2017-08-29] MEDS: LACTOBACILLUS ACIDOPHILUS TAB PO SCH ×2 (10:40→22:44)
[2017-08-29] MEDS: IRON SUCROSE INJ 100 MG in SODIUM CHLORIDE 0.9% INJ 100 ML IV SCH (10:40)
[2017-08-29 11:21] VITALS: BP 142/63; PULSE 85; RESP 18; TEMP 98.7; O2SAT 99
[2017-08-29] MEDS ORDERED: PROPOFOL 200 MG/20 ML AMP IV ONE (12:00)
[2017-08-29] MEDS ORDERED: LIDOCAINE HCL 1% PF 5 ML SYRINGE OTHER ONE (12:00)
[2017-08-29] MEDS: ACETAMINOPHEN/HYDROcodone 325 MG/5 MG TAB PO PRN ×3 (12:09→22:47)
--- NOTE | 2017-08-29 14:14 | PD.ONC.PN ---
Subjective Subjective Remarks Afebrile overnight. Patient resting in room in nad. feeling fatigued. states he just got back from EGD. Objective Data Date Time Temp Pulse Resp B/P (MAP) Pulse Ox O2 Delivery O2 Flow Rate FiO2 08/29/17 11:21 98.7 85 18 142/63 (89) 99 08/29/17 10:15 98.2 80 16 133/62 (85) 99 Room Air 08/29/17 10:10 98.2 73 16 122/67 (85) 98 Room Air 08/29/17 07:31 98.2 77 18 122/58 (79) 98 08/29/17 04:51 98.8 72 16 135/63 (87) 97 08/29/17 01:02 99.1 103 20 137/63 (87) 97 08/28/17 20:41 100.1 101 20 131/82 (98) 95 08/28/17 16:32 98.7 87 18 127/60 (82) 99 08/29/17 08/29/17 08/29/17 07:00 15:00 23:00 Intake Total 400 ml Balance 400 ml Result Diagram: 08/28/17 0130 08/28/17 0130 Laboratory Results Laboratory Tests Test 08/29/17 07:39 Haptoglobin 235 MG/DL Lactate Dehydrogenase 169 U/L Total Protein 5.5 GM/DL Culture Results Microbiology Date/Time Source Procedure Growth Status 08/27/17 10:00 Stool Stool Stool Occult Blood (MISSAEL) - Final HEMOCCULT NEGATIVE Complete 08/26/17 14:10 Stool Stool - Final Norovirus Detected Complete Administered Medications Medications (Trade) Dose Ordered Sig/Rodrigo Route PRN Reason Start Time Stop Time Status Last Admin Dose Admin Insulin Aspart (NovoLOG SUPPLEMENTAL SCALE) 1 ACHS SLIDING SCALE SQ 08/26/17 08:00 08/29/17 13:36 Sodium Chloride 1,000 ml @ 50 mls/hr Q20H IV 08/26/17 02:01 08/28/17 19:49 Sodium Chloride (NS Flush) 2 ml BID IV FLUSH 08/26/17 09:00 08/29/17 10:39 Senna/Docusate Sodium (Katie-Colace) 1 tab BID PO 08/26/17 09:00 08/28/17 19:47 Al Hydrox/Mg Hydrox/Simethicone (Mag-Al Plus Susp Liq) 30 ml Q6H PRN PO DYSPEPSIA OR HEARTBURN 08/26/17 08:15 08/28/17 19:47 Pantoprazole Sodium (Protonix) 40 mg DAILY PO 08/26/17 10:00 08/29/17 10:40 Acetaminophen (Tylenol) 650 mg Q4H PRN PO pain/fever/headache 08/27/17 09:00 08/28/17 08:53 Acetaminophen/ Hydrocodone Bitart ([place] 5-325 Mg) 1 tab Q4H PRN PO intractable pain severe pain 08/27/17 09:00 08/29/17 12:09 Lactobacillus Acidophilus (Lactinex) 1 tab Q12HR PO 08/27/17 21:00 08/29/17 10:40 Objective Remarks GENERAL: Pleasant elderly male, sitting up in bed in nad. SKIN: Warm and dry. HEAD: Normocephalic. EYES: No injection or drainage. NECK: Supple, trachea midline. CARDIOVASCULAR: Regular rate and rhythm RESPIRATORY: Breath sounds equal bilaterally. No accessory muscle use. GASTROINTESTINAL: Abdomen soft, non-tender, nondistended. EXTREMITIES: No cyanosis MUSCULOSKELETAL: Adequate muscle tone. NEUROLOGICAL: awake and alert, normal speech Assessment/Plan Problem List: (1) Normocytic anemia ICD Codes: D64.9 - Anemia, unspecified Plan: --Severe anemia with underlying iron deficiency. --B12 and folate levels WNL --s/p packed red blood cells. --s/p iron sucrose x 3 bags. --LDH WNL, haptoglobin elevated-->shows no sign of hemolysis. --GI following--s/p EGD colonoscopy on 08/29--> showed colitis + three medium sized ulcers were found in the gastric antrum+Large non-bleeding ulcer was found in the 2nd part of the duodenum --hepatitis panel pending. --SPEP pending. Assessment 86y/o male admitted with AMS, dehydration, rhabdomyolysis. Hematology consulted for anemia. h/o Hypertension, diabetes, right hip pain which his chronic. Plan 1. monitor CBC 2. await workup. 3. continue supportive care Attending Statement The exam, history, and the medical decision-making described in the above note were completed with the assistance of the mid-level provider. I reviewed and agree with the findings presented. I attest that I had a [id number]-drcn encounter with the patient on the same day, and personally performed and documented my assessment and findings in the medical record. had endoscopy earlier labs reviewed continue supportive care additional iron infusions ordered Evita Mary Aug 29, 2017 14:14 Jerry Kauffman MD Aug 29, 2017 21:46
[2017-08-29 16:17] VITALS: BP 135/63; PULSE 97; RESP 18; TEMP 98.7; O2SAT 97
[2017-08-29] MEDS: SODIUM CHLOR 0.9% 1000 ML INJ 1,000 ML IV SCH (17:05)
[2017-08-29 21:21] VITALS: BP 126/61; PULSE 64; RESP 16; TEMP 99.8; O2SAT 98
[2017-08-29 21:41] LABS: ALB/GLOB RATIO (SPE) 0.58 (1.39-2.23)
[2017-08-30 02:20] VITALS: BP 145/65; PULSE 113; RESP 14; TEMP 98.6; O2SAT 96
[2017-08-30 07:18] VITALS: BP 134/71; PULSE 84; RESP 20; TEMP 99.4; O2SAT 97
[2017-08-30] MEDS: PANTOPRAZOLE SOD 40 MG DELAYED RELEASE TAB PO SCH ×2 (07:31→20:27)
[2017-08-30] MEDS: SODIUM CHLORIDE 0.9% FLUSH 10 ML FLUSH IV FLUSH SCH ×2 (07:32→20:27)
[2017-08-30] MEDS: FOLIC ACID 1 MG TAB PO SCH (07:32)
[2017-08-30] MEDS: LACTOBACILLUS ACIDOPHILUS TAB PO SCH ×2 (07:32→20:27)
[2017-08-30] MEDS: ASCORBIC ACID 500 MG TAB PO SCH (07:32)
[2017-08-30] MEDS: ACETAMINOPHEN/HYDROcodone 325 MG/5 MG TAB PO PRN (07:32)
[2017-08-30] MEDS: INSULIN ASPART SUPPLEMENTAL SCALE SQ SCH ×4 (07:36→20:28)
[2017-08-30] MEDS: DOCUSATE SODIUM 50 MG/SENNA 8.6 MG TAB PO SCH ×2 (07:37→20:27)
[2017-08-30] MEDS: IRON SUCROSE INJ 200 MG in SODIUM CHLORIDE 0.9% INJ 100 ML IV SCH (07:38)
[2017-08-30 09:52] LABS: AUTOMATED NEUTROPHIL # 8.4 TH/MM3 (1.8-7.7); BASOPHIL % 0.3 % (0.0-2.0); EOSINOPHIL % 0.4 % (0.0-4.0); HEMATOCRIT 29.4 % (39.0-51.0); HEMOGLOBIN 9.7 GM/DL (13.0-17.0); LYMPH % 13.5 % (9.0-44.0); LYMPHOCYTE # 1.5 TH/MM3 (1.0-4.8); MEAN CELL VOLUME 93.9 FL (80.0-100.0); MEAN PLATELET VOLUME 6.7 FL (7.0-11.0); MONO % 8.7 % (0.0-8.0); MONOCYTE # 0.9 TH/MM3 (0-0.9); NEUT % 77.1 % (16.0-70.0); PLATELET COUNT 522 TH/MM3 (150-450); RED BLOOD COUNT 3.13 MIL/MM3 (4.50-5.90); RED CELL DISTRIBUTION WIDTH 17.9 % (11.6-17.2); WHITE BLOOD COUNT 10.8 TH/MM3 (4.0-11.0)
--- NOTE | 2017-08-30 10:06 | HHI.GIFU ---
Subjective Remarks pt resting in bed. no further diarrhea. getting blood. tolerating diet. (Hannah Olmedo) Objective Vitals I&O Vital Signs Date Time Temp Pulse Resp B/P (MAP) Pulse Ox O2 Delivery O2 Flow Rate FiO2 08/30/17 07:18 99.4 84 20 134/71 (92) 97 08/30/17 02:20 98.6 113 14 145/65 (91) 96 08/29/17 23:47 12 08/29/17 21:21 99.8 64 16 126/61 (82) 98 08/29/17 16:17 98.7 97 18 135/63 (87) 97 08/29/17 11:21 98.7 85 18 142/63 (89) 99 08/29/17 10:15 98.2 80 16 133/62 (85) 99 Room Air 08/29/17 10:10 98.2 73 16 122/67 (85) 98 Room Air I/O 08/29/17 08/29/17 08/29/17 08/30/17 08/30/17 08/30/17 06:59 14:59 22:59 06:59 14:59 22:59 Intake Total 400 ml Balance 400 ml Other 400 ml Laboratory Laboratory Tests Test 08/29/17 16:10 08/30/17 08:55 Hepatitis A IgM Antibody NONREACTIVE Hepatitis B Surface Antigen NONREACTIVE Hepatitis B Core IgM Antibody NONREACTIVE Hepatitis C IgG Antibody NONREACTIVE White Blood Count 10.8 Red Blood Count 3.13 Hemoglobin 9.7 Hematocrit 29.4 Mean Corpuscular Volume 93.9 Mean Corpuscular Hemoglobin 31.0 Mean Corpuscular Hemoglobin Concent 33.0 Red Cell Distribution Width 17.9 Platelet Count 522 Mean Platelet Volume 6.7 Neutrophils (%) (Auto) 77.1 Lymphocytes (%) (Auto) 13.5 Monocytes (%) (Auto) 8.7 Eosinophils (%) (Auto) 0.4 Basophils (%) (Auto) 0.3 Neutrophils # (Auto) 8.4 Lymphocytes # (Auto) 1.5 Monocytes # (Auto) 0.9 Eosinophils # (Auto) 0.0 Basophils # (Auto) 0.0 CBC Comment AUTO DIFF Date/Time Source Procedure Growth Status 08/27/17 10:00 Stool Stool Stool Occult Blood (MISSAEL) - Final HEMOCCULT NEGATIVE Complete Imaging Last Impressions Hip and Pelvis X-Ray 08/27/17 0000 Signed Impressions: Service Date/Time: Sunday, August 27, 2017 13:50 - CONCLUSION: 1. No acute fracture the right hip identified. There are postsurgical changes. 2. There is a lucency through the pubic symphysis which may be artifactual however a nondisplaced fracture the pubic symphysis is not excluded. Santos Askew MD Head CT 08/26/17 0000 Signed Impressions: Service Date/Time: Saturday, August 26, 2017 01:17 - CONCLUSION: 1. No acute intracranial abnormality. 2. Atrophy. 3. Chronic small vessel ischemic change. Brandon Narvaez Jr., MD Physical Exam HEENT: PERRL; normocephalic; atraumatic; no jaundice. CHEST: CTA CARDIAC: RRR ABDOMEN: Soft, nondistended, nontender; no hepatosplenomegaly; bowel sounds are present in all four quadrants. EXTREMITIES: No clubbing, cyanosis, or edema. SKIN: Normal; no rash; no jaundice. 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 (Hannah Olmedo) Assessment and Plan Plan ASSESSMENT - loose stool - for last 3 weeks up to 3 times daily. + for norovirus. no blood c diff neg - anemia - normocytic. stool heme neg. hematology consulted. no obvious bleeding. never had EGD or colonoscopy - weight loss - lost 25lbs last 3 weeks.likely 2/2 norovirus. 08/30/17 s/p EGD and colonoscopy found diverticulosis, large circumferential colitis with friable tissue oozing blood; 3 medium gastric ulcers, 1 large nonbleeding duodenal ulcer, esophagitis class B, small hiatal hernia. bx pending. hem/onc following, giving iron. blood transfusing not obvious bleeding at this time PLAN - SAMIA - await bx - monitor labs - notify GI of active bleeding -supportive care - BID protonix 40mg - f/u with GI after d/c 1 -2 weeks - repeat EGD 2 months pt seen by myself and Dr Juárez and this note is on his behalf (Hannah Olmedo) Physician Comments Agree with above assessment and plan. Biopsies pending. Will follow up with you. (Brayden Juárez MD) Hannah Olmedo Aug 30, 2017 10:06 Brayden Juárez MD Aug 30, 2017 13:33
[2017-08-30 10:21] LABS: BICARBONATE 23.8 MEQ/L (21.0-32.0); CALCIUM 7.8 MG/DL (8.5-10.1); CREATININE 0.5 MG/DL (0.60-1.30); MAGNESIUM 1.5 MG/DL (1.5-2.5)
[2017-08-30 10:42] LABS: BANDS 44 % (0-6); DOHLE BODIES PRESENT (NONE SEEN); LYMPHOCYTES 3 % (9-44); METAMYELOCYTES 1 % (0-1); MONOCYTES 13 % (0-8); NEUTROPHIL # MANUAL DIFF 9.1 TH/MM3 (1.8-7.7); POLYS (SEG NEUTROPHILS) 39 % (16-70); TOXIC GRANULATION 2+ (NORMAL)
[2017-08-30] MEDS ORDERED: FERR325T18 PO (11:53)
[2017-08-30] MEDS ORDERED: FOLI1TAB6 PO (11:53)
[2017-08-30 11:55] VITALS: BP 145/72; PULSE 88; RESP 18; TEMP 98.7; O2SAT 97
[2017-08-30] MEDS ORDERED: CIPR500T2 PO (11:59)
[2017-08-30] MEDS ORDERED: LACTCHW3 CHEW (12:00)
[2017-08-30] MEDS ORDERED: POTASSIUM CHLORIDE 25 MEQ EFFERVESCENT TAB PO ONE (12:00)
[2017-08-30] MEDS ORDERED: NORC5TAB PO (12:02)
[2017-08-30] MEDS ORDERED: POTASSIUM CHLOR 20 MEQ PREMIX 100 ML IV ONE (12:15)
[2017-08-30] MEDS: MAGNESIUM SULFATE 1 GM PREMIX 100 ML IV SCH ×2 (12:31→13:15)
[2017-08-30] MEDS: SODIUM CHLOR 0.9% 1000 ML INJ 1,000 ML IV SCH (12:32)
--- NOTE | 2017-08-30 12:56 | HHI.PR ---
Subjective Remarks The patient is in bed he appears to not acute distress at this time. He did not have diarrhea today. Eating better. No nausea vomiting. No fever or chills. Pain is in his sleep is better controlled. Objective Vitals Vital Signs Date Time Temp Pulse Resp B/P (MAP) Pulse Ox O2 Delivery O2 Flow Rate FiO2 08/30/17 11:55 98.7 88 18 145/72 (96) 97 08/30/17 07:18 99.4 84 20 134/71 (92) 97 08/30/17 02:20 98.6 113 14 145/65 (91) 96 08/29/17 23:47 12 08/29/17 21:21 99.8 64 16 126/61 (82) 98 08/29/17 16:17 98.7 97 18 135/63 (87) 97 I/O 08/29/17 08/29/17 08/29/17 08/30/17 08/30/17 08/30/17 07:00 15:00 23:00 07:00 15:00 23:00 Intake Total 400 ml 1110 ml Balance 400 ml 1110 ml Intake IV Total 1110 ml Other 400 ml Result Diagram: 08/30/17 0855 08/30/17 0855 Imaging Last Impressions Hip and Pelvis X-Ray 08/27/17 0000 Signed Impressions: Service Date/Time: Sunday, August 27, 2017 13:50 - CONCLUSION: 1. No acute fracture the right hip identified. There are postsurgical changes. 2. There is a lucency through the pubic symphysis which may be artifactual however a nondisplaced fracture the pubic symphysis is not excluded. Santos Askew MD Head CT 08/26/17 0000 Signed Impressions: Service Date/Time: Saturday, August 26, 2017 01:17 - CONCLUSION: 1. No acute intracranial abnormality. 2. Atrophy. 3. Chronic small vessel ischemic change. Brandon Narvaez Jr., MD Objective Remarks GENERAL: Well-nourished, well-developed pleasant elderly male patient in [facility]. CARDIOVASCULAR: Regular rate and rhythm. S1, S2 noted. No murmur appreciated. RESPIRATORY: No accessory muscle use. Clear to auscultation. Breath sounds equal bilaterally. GASTROINTESTINAL: Abdomen soft, non-tender, nondistended. Normoactive bowel sounds x4. MUSCULOSKELETAL: No obvious deformities. Extremities without clubbing, cyanosis , or edema. Pain of the right hip with range of motion. NEUROLOGICAL: Awake and alert. No obvious cranial nerve deficits. Motor grossly within normal limits. 5/5 strength bilateral upper and lower extremities. Normal speech. PSYCHIATRIC: Appropriate mood and affect; insight and judgment normal. Procedures Status post EGD/colonoscopy by Dr. Cortes 08/29/17 A/P Problem List: (1) Self-care deficit in patient living alone ICD Code: R46.89 - Other symptoms and signs involving appearance and behavior (2) Gait instability ICD Code: R26.81 - Unsteadiness on feet (3) Rhabdomyolysis ICD Code: M62.82 - Rhabdomyolysis (4) DM (diabetes mellitus) ICD Code: E11.9 - Type 2 diabetes mellitus without complications Status: Chronic Assessment and Plan 86-year-old male with a PMH of HTN and DM who was brought to the ER by Police under [place] secondary to confusion and unable to care for self. Per Police report, patient refusing medical attention and had defecated on the floor. Noted to be confused at that time. Self Care Deficit: currently under [place] by Police for refusing treatment/ defecating on floor, transient confusion, unable to care for self. -CT Head w/ no acute findings, images reviewed by me. -Consult Psych for further evaluation. -Check U/a to eval for underlying UTI. Gait Instability: noted to be unstable w/ ambulation, unable to care for self. -PT/OT for eval/tx. -Consult Case Management for assistance with discharge planning Right hip pain. He had previously surgery performed on the left hip. A year ago. X-ray of right hip no acute fracture. Consider orthopedic eval Rhabdomyolysis: CPK 735. Suspect secondary to fall. CPK trending down monitor -Give IVF for hydration -check UA Diarrhea due to Norovirus. Colitis Gastric ulcers and duodenal ulcer. Esophagitis. Hiatal hernia patient with diarrhea. Afebrile, no leukocytosis. C.diff is negative and stool studies reviewed. Patient will Norovirus Continue Lactinex tid Status post EGD and colonoscopy 08/29/17 Patient with class B esophagitis, hiatal hernia, medium sized ulcers in the gastric antrum, large nonbleeding ulcers on the second part of the duodenum, biopsies were performed. Also patient with colitis Avoid NSAIDs, continue PPI Ciprofloxacin po Weight Loss/Anemia: patient reports 25lbs weight loss over the past year secondary to decreased appetite. Patient with chronic normocytic anemia. Thrombocytosis -Consult GI plan. EGD/colonoscopy 08/29/17 -However the hemoglobin dropped 08/28/17 and patient is very weak. Received transfusion 1 unit of red blood cells. Monitor H&H. Check iron panel review deficiency. B12, folate normal. Consult hematology. Dyspepsia: patient reports chronic heartburn, on protonix at home -will continue patient's protonix -add Mylanta prn. Consult GI. EGD colonoscopy DM2: Chronic -holding patient's home hypoglycemics -Monitor Accu-Cheks and cover with SSI for now -Check HgbA1c Sliding scale with Accu-Cheks. Hypomagnesemia: Mag 1.4, on admission, likely secondary to recent diarrhea -Give IV Mag Sulfate x2G -Repeat labs in the am DVT Prophylaxis: SCD/teds. Discharge Planning Discharge pending PT/OT eval, psychiatry eval, and stool studies. S/p EGD colonoscopy Discharge when improved and cleared by consultants. PT recommends rehab Case management consulted for discharge planning Helen Partida MD Aug 30, 2017 12:56
[2017-08-30 17:00] VITALS: BP 130/60; PULSE 97; RESP 18; TEMP 98.7; O2SAT 95
[2017-08-30 19:10] VITALS: BP 143/67; PULSE 82; RESP 18; TEMP 98.2; O2SAT 97
[2017-08-30] MEDS: CIPROFLOXACIN 500 MG TAB PO SCH (20:28)
[2017-08-30 23:57] VITALS: BP 138/72; PULSE 88; RESP 17; TEMP 98.2; O2SAT 97
[2017-08-31 04:42] VITALS: BP 136/65; PULSE 85; RESP 17; TEMP 98.4; O2SAT 95
[2017-08-31] MEDS: SODIUM CHLOR 0.9% 1000 ML INJ 1,000 ML IV SCH (07:49)
[2017-08-31] MEDS: FOLIC ACID 1 MG TAB PO SCH (07:56)
[2017-08-31] MEDS: ASCORBIC ACID 500 MG TAB PO SCH (07:56)
[2017-08-31] MEDS: ACETAMINOPHEN/HYDROcodone 325 MG/5 MG TAB PO PRN (07:56)
[2017-08-31] MEDS: SODIUM CHLORIDE 0.9% FLUSH 10 ML FLUSH IV FLUSH SCH ×2 (07:56→21:00)
[2017-08-31] MEDS: CIPROFLOXACIN 500 MG TAB PO SCH ×2 (07:57→21:33)
[2017-08-31] MEDS: DOCUSATE SODIUM 50 MG/SENNA 8.6 MG TAB PO SCH ×2 (07:57→21:00)
[2017-08-31] MEDS: LACTOBACILLUS ACIDOPHILUS TAB PO SCH ×2 (07:58→21:33)
[2017-08-31] MEDS: PANTOPRAZOLE SOD 40 MG DELAYED RELEASE TAB PO SCH ×2 (07:58→21:33)
[2017-08-31] MEDS: IRON SUCROSE INJ 200 MG in SODIUM CHLORIDE 0.9% INJ 100 ML IV SCH (07:59)
[2017-08-31] MEDS: INSULIN ASPART SUPPLEMENTAL SCALE SQ SCH ×4 (07:59→21:37)
[2017-08-31 10:15] LABS: AUTOMATED NEUTROPHIL # 6.1 TH/MM3 (1.8-7.7); BASOPHIL % 0.2 % (0.0-2.0); EOSINOPHIL # 0.1 TH/MM3 (0-0.4); EOSINOPHIL % 0.7 % (0.0-4.0); HEMOGLOBIN 8.5 GM/DL (13.0-17.0); LYMPH % 14.5 % (9.0-44.0); LYMPHOCYTE # 1.2 TH/MM3 (1.0-4.8); MEAN CELL VOLUME 93.1 FL (80.0-100.0); MEAN CORPUSCULAR HEMOGLOBIN 31.8 PG (27.0-34.0); MEAN CORPUSCULAR HGB CONC 34.2 % (32.0-36.0); MEAN PLATELET VOLUME 6.5 FL (7.0-11.0); NEUT % 72.6 % (16.0-70.0); PLATELET COUNT 479 TH/MM3 (150-450); RED BLOOD COUNT 2.69 MIL/MM3 (4.50-5.90); RED CELL DISTRIBUTION WIDTH 17.3 % (11.6-17.2); WHITE BLOOD COUNT 8.4 TH/MM3 (4.0-11.0)
[2017-08-31 10:39] LABS: BICARBONATE 24.4 MEQ/L (21.0-32.0); CALCIUM 7.2 MG/DL (8.5-10.1); CREATININE 0.4 MG/DL (0.60-1.30)
[2017-08-31 10:56] LABS: CALCIUM-PROTEIN CORRECTED 7.8 MG/DL (8.5-10.1); TOTAL PROTEIN 5.9 GM/DL (6.4-8.2)
--- NOTE | 2017-08-31 11:09 | HHI.PR ---
Subjective Remarks The patient is in bed. Said he did have 2 bowel movements diarrhea overnight he also had diarrhea in the morning. No fever or chills overnight. He is feeling stronger however. No blood in stool. No nausea vomiting. Says he started eating a little better and appetite is increased. Objective Vitals Vital Signs Date Time Temp Pulse Resp B/P (MAP) Pulse Ox O2 Delivery O2 Flow Rate FiO2 08/31/17 04:42 98.4 85 17 136/65 (88) 95 08/30/17 23:57 98.2 88 17 138/72 (94) 97 08/30/17 19:10 98.2 82 18 143/67 (92) 97 08/30/17 17:00 98.7 97 18 130/60 (83) 95 08/30/17 11:55 98.7 88 18 145/72 (96) 97 I/O 08/30/17 08/30/17 08/30/17 08/31/17 08/31/17 08/31/17 07:00 15:00 23:00 07:00 15:00 23:00 Intake Total 1310 ml 100 ml Balance 1310 ml 100 ml Intake IV Total 1310 ml 100 ml Result Diagram: 08/31/17 0937 08/31/17 0937 Imaging Last Impressions Hip and Pelvis X-Ray 08/27/17 0000 Signed Impressions: Service Date/Time: Sunday, August 27, 2017 13:50 - CONCLUSION: 1. No acute fracture the right hip identified. There are postsurgical changes. 2. There is a lucency through the pubic symphysis which may be artifactual however a nondisplaced fracture the pubic symphysis is not excluded. Santos Askew MD Head CT 08/26/17 0000 Signed Impressions: Service Date/Time: Saturday, August 26, 2017 01:17 - CONCLUSION: 1. No acute intracranial abnormality. 2. Atrophy. 3. Chronic small vessel ischemic change. Brandon Narvaez Jr., MD Objective Remarks GENERAL: Well-nourished, well-developed pleasant elderly male patient in [facility]. CARDIOVASCULAR: Regular rate and rhythm. S1, S2 noted. No murmur appreciated. RESPIRATORY: No accessory muscle use. Clear to auscultation. Breath sounds equal bilaterally. GASTROINTESTINAL: Abdomen soft, non-tender, nondistended. Normoactive bowel sounds x4. MUSCULOSKELETAL: No obvious deformities. Extremities without clubbing, cyanosis , or edema. Pain of the right hip with range of motion. NEUROLOGICAL: Awake and alert. No obvious cranial nerve deficits. Motor grossly within normal limits. 5/5 strength bilateral upper and lower extremities. Normal speech. PSYCHIATRIC: Appropriate mood and affect; insight and judgment normal. Procedures Status post EGD/colonoscopy by Dr. Cortes 08/29/17 A/P Problem List: (1) Self-care deficit in patient living alone ICD Code: R46.89 - Other symptoms and signs involving appearance and behavior (2) Gait instability ICD Code: R26.81 - Unsteadiness on feet (3) Rhabdomyolysis ICD Code: M62.82 - Rhabdomyolysis (4) DM (diabetes mellitus) ICD Code: E11.9 - Type 2 diabetes mellitus without complications Status: Chronic Assessment and Plan 86-year-old male with a PMH of HTN and DM who was brought to the ER by Police under [place] secondary to confusion and unable to care for self. Per Police report, patient refusing medical attention and had defecated on the floor. Noted to be confused at that time. Self Care Deficit: currently under [place] by Police for refusing treatment/ defecating on floor, transient confusion, unable to care for self. -CT Head w/ no acute findings, images reviewed by me. -Consult Psych for further evaluation. -Check U/a to eval for underlying UTI. Gait Instability: noted to be unstable w/ ambulation, unable to care for self. -PT/OT for eval/tx. -Consult Case Management for assistance with discharge planning Right hip pain. He had previously surgery performed on the left hip. A year ago. X-ray of right hip no acute fracture. Consider orthopedic eval Rhabdomyolysis: CPK 735. Suspect secondary to fall. CPK trending down monitor -Give IVF for hydration -check UA normal Diarrhea due to Norovirus. Colitis Gastric ulcers and duodenal ulcer. Esophagitis. Hiatal hernia patient with diarrhea. Afebrile, no leukocytosis. C.diff is negative and stool studies reviewed. Patient will Norovirus Continue Lactinex tid Status post EGD and colonoscopy 08/29/17 Patient with class B esophagitis, hiatal hernia, medium sized ulcers in the gastric antrum, large nonbleeding ulcers on the second part of the duodenum, biopsies were performed. Also patient with colitis Avoid NSAIDs, continue PPI. Supportive care Ciprofloxacin po Add Lactinex Weight Loss/Anemia: patient reports 25lbs weight loss over the past year secondary to decreased appetite. Patient with chronic normocytic anemia. Thrombocytosis -Consult GI plan. EGD/colonoscopy 08/29/17 -However the hemoglobin dropped 08/28/17 and patient is very weak. Received transfusion 1 unit of red blood cells. Monitor H&H. Check iron panel review deficiency. B12, folate normal. Consult hematology. Dyspepsia: patient reports chronic heartburn, on protonix at home -will continue patient's protonix -add Mylanta prn. Consult GI. EGD colonoscopy DM2: Chronic -holding patient's home hypoglycemics -Monitor Accu-Cheks and cover with SSI for now -Check HgbA1c Sliding scale with Accu-Cheks. Hypomagnesemia: Mag 1.4, on admission, likely secondary to recent diarrhea -Give IV Mag Sulfate x2G -Repeat labs in the am DVT Prophylaxis: SCD/teds. Discharge Planning Discharge pending PT/OT eval, psychiatry eval, and stool studies. S/p EGD colonoscopy Discharge when improved and cleared by consultants. PT recommends rehab Case management consulted for discharge planning Helen Partida MD Aug 31, 2017 11:09
[2017-08-31] MEDS ORDERED: POTASSIUM CHLORIDE 10 MEQ CONTROLLED RELEASE TAB PO ONE (11:15)
[2017-08-31] MEDS: POTASSIUM CHLOR 10 MEQ PREMIX 100 ML IV SCH ×4 (11:38→17:20)
[2017-08-31] MEDS ORDERED: CALCIUM GLUCONATE INJ 1 GM in DEXTROSE 5% IN WATER 100ML INJ 100 ML IV ONE ×2 (12:00)
[2017-08-31 12:12] VITALS: BP 130/60; PULSE 68; RESP 20; TEMP 97.9; O2SAT 98
--- NOTE | 2017-08-31 13:47 | HHI.GIFU ---
Subjective Remarks Resting in the bed Eating lunch no problems with swallow no nausea no vomiting Chief complaint diarrhea 10 days, seems to be getting some better Afebrile C. difficile negative (Renea Lee) Objective Vitals I&O Vital Signs Date Time Temp Pulse Resp B/P (MAP) Pulse Ox O2 Delivery O2 Flow Rate FiO2 08/31/17 12:12 97.9 68 20 130/60 (83) 98 08/31/17 04:42 98.4 85 17 136/65 (88) 95 08/30/17 23:57 98.2 88 17 138/72 (94) 97 08/30/17 19:10 98.2 82 18 143/67 (92) 97 08/30/17 17:00 98.7 97 18 130/60 (83) 95 I/O 08/30/17 08/30/17 08/30/17 08/31/17 08/31/17 08/31/17 07:00 15:00 23:00 07:00 15:00 23:00 Intake Total 1310 ml 100 ml Balance 1310 ml 100 ml Intake IV Total 1310 ml 100 ml Laboratory Laboratory Tests Test 08/31/17 09:37 White Blood Count 8.4 Red Blood Count 2.69 Hemoglobin 8.5 Hematocrit 25.0 Mean Corpuscular Volume 93.1 Mean Corpuscular Hemoglobin 31.8 Mean Corpuscular Hemoglobin Concent 34.2 Red Cell Distribution Width 17.3 Platelet Count 479 Mean Platelet Volume 6.5 Neutrophils (%) (Auto) 72.6 Lymphocytes (%) (Auto) 14.5 Monocytes (%) (Auto) 12.0 Eosinophils (%) (Auto) 0.7 Basophils (%) (Auto) 0.2 Neutrophils # (Auto) 6.1 Lymphocytes # (Auto) 1.2 Monocytes # (Auto) 1.0 Eosinophils # (Auto) 0.1 Basophils # (Auto) 0.0 CBC Comment DIFF FINAL Differential Comment Blood Urea Nitrogen 5 Creatinine 0.40 Random Glucose 183 Total Protein 5.9 Calcium Level 7.2 Sodium Level 134 Potassium Level 2.9 Chloride Level 100 Carbon Dioxide Level 24.4 Anion Gap 10 Estimat Glomerular Filtration Rate 204 Protein Corrected Calcium 7.8 Date/Time Source Procedure Growth Status 08/27/17 10:00 Stool Stool Stool Occult Blood (MISSAEL) - Final HEMOCCULT NEGATIVE Complete Imaging Last Impressions Hip and Pelvis X-Ray 08/27/17 0000 Signed Impressions: Service Date/Time: Sunday, August 27, 2017 13:50 - CONCLUSION: 1. No acute fracture the right hip identified. There are postsurgical changes. 2. There is a lucency through the pubic symphysis which may be artifactual however a nondisplaced fracture the pubic symphysis is not excluded. Santos Askew MD Head CT 08/26/17 0000 Signed Impressions: Service Date/Time: Saturday, August 26, 2017 01:17 - CONCLUSION: 1. No acute intracranial abnormality. 2. Atrophy. 3. Chronic small vessel ischemic change. Brandon Narvaez Jr., MD Physical Exam HEENT: PERRL; normocephalic; atraumatic; no jaundice. Pale CHEST: CTA no audible rhonchi or wheezing CARDIAC: RRR ABDOMEN: Soft, nondistended, nontender; no hepatosplenomegaly; bowel sounds are present in all four quadrants. EXTREMITIES: No clubbing, cyanosis, or edema. SKIN: Normal; no rash; no jaundice. Pale thin turgor PAINT PREPPER: No focal deficits; alert and oriented times two. (Renea Lee) Assessment and Plan Plan ASSESSMENT - loose stool - for last 3 weeks up to 3 times daily. + for norovirus. no blood c diff neg - anemia - normocytic. stool heme neg. hematology consulted. no obvious bleeding. never had EGD or colonoscopy - weight loss - lost 25lbs last 3 weeks.likely 2/2 norovirus. 08/30/17 s/p EGD and colonoscopy found diverticulosis, large circumferential colitis with friable tissue oozing blood; 3 medium gastric ulcers, 1 large nonbleeding duodenal ulcer, esophagitis class B, small hiatal hernia. bx pending. hem/onc following, giving iron. blood transfusing not obvious bleeding at this time 08/31/17, hemoglobin 9.7 dropped to 8.5 today over 24 hours. Potassium still low receiving supplements 2.9, C. difficile negative, iron deficiency anemia, hepatitis profile nonreactive, PLAN - Diet regular basic - await bx - monitor labs - notify GI of active bleeding -supportive care - BID protonix 40mg - f/u with GI after d/c 1 -2 weeks, patient hoping to go to rehabilitation - repeat EGD 2 months pt seen by myself and Dr Juárez and this note is on his behalf (Renea Lee) Physician Comments Seen and examined, plan as above. Please notify us if needed again. (Brayden Juárez MD) Renea Lee Aug 31, 2017 13:47 Brayden Juárez MD Aug 31, 2017 22:48
[2017-08-31] MEDS ORDERED: MAGNESIUM OXIDE 400 MG TAB PO ONE (14:30)
[2017-08-31 15:32] VITALS: BP 130/60; PULSE 70; RESP 18; TEMP 97.9; O2SAT 95
[2017-08-31 19:30] LABS: BICARBONATE 23.6 MEQ/L (21.0-32.0); CALCIUM 7.9 MG/DL (8.5-10.1); CREATININE 0.65 MG/DL (0.60-1.30)
[2017-08-31 20:37] VITALS: BP 144/67; PULSE 99; RESP 18; TEMP 99; O2SAT 96
[2017-08-31 20:56] VITALS: BP 144/66; PULSE 53; RESP 16; O2SAT 98
[2017-08-31] MEDS: CALCIUM CARBONATE 500 MG CHEWABLE TAB CHEW SCH (21:32)
[2017-08-31 23:29] VITALS: BP 140/65; PULSE 115; RESP 17; TEMP 98.6; O2SAT 97
[2017-09-01 02:59] VITALS: BP 143/67; PULSE 102; RESP 16; TEMP 99.4; O2SAT 98
[2017-09-01] MEDS: SODIUM CHLOR 0.9% 1000 ML INJ 1,000 ML IV SCH (07:42)
[2017-09-01 08:15] LABS: BASOPHIL % 0.3 % (0.0-2.0); EOSINOPHIL # 0.1 TH/MM3 (0-0.4); EOSINOPHIL % 1.1 % (0.0-4.0); HEMATOCRIT 25.9 % (39.0-51.0); HEMOGLOBIN 8.6 GM/DL (13.0-17.0); LYMPH % 17.7 % (9.0-44.0); LYMPHOCYTE # 1.3 TH/MM3 (1.0-4.8); MEAN CELL VOLUME 93.2 FL (80.0-100.0); MEAN CORPUSCULAR HEMOGLOBIN 30.8 PG (27.0-34.0); MEAN CORPUSCULAR HGB CONC 33.1 % (32.0-36.0); MEAN PLATELET VOLUME 6.8 FL (7.0-11.0); MONO % 14.3 % (0.0-8.0); MONOCYTE # 1.1 TH/MM3 (0-0.9); NEUT % 66.6 % (16.0-70.0); PLATELET COUNT 527 TH/MM3 (150-450); RED BLOOD COUNT 2.78 MIL/MM3 (4.50-5.90); RED CELL DISTRIBUTION WIDTH 17.4 % (11.6-17.2); WHITE BLOOD COUNT 7.5 TH/MM3 (4.0-11.0)
[2017-09-01] MEDS: INSULIN ASPART SUPPLEMENTAL SCALE SQ SCH ×4 (08:28→20:26)
[2017-09-01] MEDS: IRON SUCROSE INJ 200 MG in SODIUM CHLORIDE 0.9% INJ 100 ML IV SCH (08:36)
[2017-09-01] MEDS: LACTOBACILLUS ACIDOPHILUS TAB PO SCH ×2 (08:36→20:23)
[2017-09-01] MEDS: ACETAMINOPHEN/HYDROcodone 325 MG/5 MG TAB PO PRN ×2 (08:36→20:25)
[2017-09-01] MEDS: ASCORBIC ACID 500 MG TAB PO SCH (08:37)
[2017-09-01] MEDS: FOLIC ACID 1 MG TAB PO SCH (08:37)
[2017-09-01] MEDS: PANTOPRAZOLE SOD 40 MG DELAYED RELEASE TAB PO SCH ×2 (08:37→20:23)
[2017-09-01] MEDS: DOCUSATE SODIUM 50 MG/SENNA 8.6 MG TAB PO SCH ×2 (08:38→20:24)
[2017-09-01] MEDS: CIPROFLOXACIN 500 MG TAB PO SCH ×2 (08:39→20:24)
[2017-09-01] MEDS: SODIUM CHLORIDE 0.9% FLUSH 10 ML FLUSH IV FLUSH SCH ×2 (08:39→20:26)
[2017-09-01 08:45] LABS: BICARBONATE 22.4 MEQ/L (21.0-32.0); CALCIUM 7.7 MG/DL (8.5-10.1); CREATININE 0.43 MG/DL (0.60-1.30); MAGNESIUM 1.3 MG/DL (1.5-2.5)
[2017-09-01 09:17] LABS: BANDS 16 % (0-6); BASOPHILS 1 % (0-2); LYMPHOCYTES 14 % (9-44); METAMYELOCYTES 1 % (0-1); MONOCYTES 4 % (0-8); MYELOCYTES 3 % (0-0); POLYS (SEG NEUTROPHILS) 60 % (16-70); TOXIC GRANULATION 1+ (NORMAL)
[2017-09-01 09:29] VITALS: BP 146/64; PULSE 88; RESP 16; TEMP 98; O2SAT 97
--- NOTE | 2017-09-01 11:36 | HHI.PR ---
Subjective Remarks The patient is in bed. Says he did have 3 times diarrhea overnight and one time in the morning. No fever or chills. No abdominal pain. No nausea or vomiting. No shortness of breath or chest pain. Receiving Venofer infusion Objective Vitals Vital Signs Date Time Temp Pulse Resp B/P (MAP) Pulse Ox O2 Delivery O2 Flow Rate FiO2 09/01/17 09:29 98.0 88 16 146/64 (91) 97 09/01/17 02:59 99.4 102 16 143/67 (92) 98 08/31/17 23:29 98.6 115 17 140/65 (90) 97 08/31/17 20:56 53 16 144/66 (92) 98 08/31/17 20:37 99.0 99 18 144/67 (92) 96 08/31/17 15:32 97.9 70 18 130/60 (83) 95 08/31/17 12:12 97.9 68 20 130/60 (83) 98 Result Diagram: 09/01/17 0721 09/01/17 0721 Imaging Last Impressions Hip and Pelvis X-Ray 08/27/17 0000 Signed Impressions: Service Date/Time: Sunday, August 27, 2017 13:50 - CONCLUSION: 1. No acute fracture the right hip identified. There are postsurgical changes. 2. There is a lucency through the pubic symphysis which may be artifactual however a nondisplaced fracture the pubic symphysis is not excluded. Santos Askew MD Head CT 08/26/17 0000 Signed Impressions: Service Date/Time: Saturday, August 26, 2017 01:17 - CONCLUSION: 1. No acute intracranial abnormality. 2. Atrophy. 3. Chronic small vessel ischemic change. Brandon Narvaez Jr., MD Objective Remarks GENERAL: Well-nourished, well-developed pleasant elderly male patient in [facility]. CARDIOVASCULAR: Regular rate and rhythm. S1, S2 noted. No murmur appreciated. RESPIRATORY: No accessory muscle use. Clear to auscultation. Breath sounds equal bilaterally. GASTROINTESTINAL: Abdomen soft, non-tender, nondistended. Normoactive bowel sounds x4. MUSCULOSKELETAL: No obvious deformities. Extremities without clubbing, cyanosis , or edema. Pain of the right hip with range of motion. NEUROLOGICAL: Awake and alert. No obvious cranial nerve deficits. Motor grossly within normal limits. 5/5 strength bilateral upper and lower extremities. Normal speech. PSYCHIATRIC: Appropriate mood and affect; insight and judgment normal. Procedures Status post EGD/colonoscopy by Dr. Cortes 08/29/17 A/P Problem List: (1) Self-care deficit in patient living alone ICD Code: R46.89 - Other symptoms and signs involving appearance and behavior (2) Gait instability ICD Code: R26.81 - Unsteadiness on feet (3) Rhabdomyolysis ICD Code: M62.82 - Rhabdomyolysis (4) DM (diabetes mellitus) ICD Code: E11.9 - Type 2 diabetes mellitus without complications Status: Chronic Assessment and Plan 86-year-old male with a PMH of HTN and DM who was brought to the ER by Police under [place] secondary to confusion and unable to care for self. Per Police report, patient refusing medical attention and had defecated on the floor. Noted to be confused at that time. Diarrhea due to Norovirus. Colitis Gastric ulcers and duodenal ulcer. Esophagitis. Hiatal hernia patient with diarrhea. Afebrile, no leukocytosis. C.diff is negative and stool studies reviewed. Patient will Norovirus Continue Lactinex tid Status post EGD and colonoscopy 08/29/17 Patient with class B esophagitis, hiatal hernia, medium sized ulcers in the gastric antrum, large nonbleeding ulcers on the second part of the duodenum, biopsies were performed. Also patient with colitis Avoid NSAIDs, continue PPI. Supportive care Ciprofloxacin po Add Lactinex Weight Loss/Anemia: patient reports 25lbs weight loss over the past year secondary to decreased appetite. Patient with chronic normocytic anemia. Thrombocytosis -Consult GI plan. EGD/colonoscopy 08/29/17 -However the hemoglobin dropped 08/28/17 and patient is very weak. Received transfusion 1 unit of red blood cells. Monitor H&H. Check iron panel review deficiency. B12, folate normal. Consult hematology. Self Care Deficit: currently under [place] Act by Police for refusing treatment/ defecating on floor, transient confusion, unable to care for self. -CT Head w/ no acute findings, images reviewed by me. -Consult Psych for further evaluation. -Check U/a to eval for underlying UTI. Gait Instability: noted to be unstable w/ ambulation, unable to care for self. -PT/OT for eval/tx. -Consult Case Management for assistance with discharge planning Right hip pain. He had previously surgery performed on the left hip. A year ago. X-ray of right hip no acute fracture. Consider orthopedic eval Rhabdomyolysis: CPK 735. Suspect secondary to fall. CPK trending down monitor -Give IVF for hydration -check UA normal Dyspepsia: patient reports chronic heartburn, on protonix at home -will continue patient's protonix -add Mylanta prn. Consult GI. EGD colonoscopy DM2: Chronic -holding patient's home hypoglycemics -Monitor Accu-Cheks and cover with SSI for now -Check HgbA1c Sliding scale with Accu-Cheks. Hypomagnesemia: Mag 1.4, on admission, likely secondary to recent diarrhea -Give IV Mag Sulfate x2G -Repeat labs in the am DVT Prophylaxis: SCD/teds. Discharge Planning Discharge pending PT/OT eval, psychiatry eval, and stool studies. S/p EGD colonoscopy Discharge when improved and cleared by consultants. PT recommends rehab Case management consulted for discharge planning Helen Partida MD Sep 01, 2017 11:36
[2017-09-01] MEDS: CALCIUM CARBONATE 500 MG CHEWABLE TAB CHEW SCH ×2 (12:28→20:23)
[2017-09-01 13:42] VITALS: BP 136/65; PULSE 91; RESP 16; TEMP 97.5; O2SAT 97
[2017-09-01] MEDS ORDERED: POTASSIUM CHLORIDE 10 MEQ CONTROLLED RELEASE TAB PO ONE (13:45)
[2017-09-01] MEDS: MAGNESIUM OXIDE 400 MG TAB PO SCH (14:50)
[2017-09-01 20:00] VITALS: BP 130/72; PULSE 90; RESP 17; TEMP 98.1; O2SAT 98
[2017-09-02] VITALS: BP 133/74; PULSE 91; RESP 18; TEMP 99; O2SAT 95
[2017-09-02] MEDS: SODIUM CHLOR 0.9% 1000 ML INJ 1,000 ML IV SCH
[2017-09-02 04:18] VITALS: BP 139/69; PULSE 90; RESP 18; TEMP 99.6; O2SAT 94
[2017-09-02] MEDS: ACETAMINOPHEN/HYDROcodone 325 MG/5 MG TAB PO PRN ×2 (06:51→16:10)
[2017-09-02 08:09] VITALS: BP 98/68; PULSE 83; RESP 18; TEMP 97.3; O2SAT 94
[2017-09-02] MEDS: DOCUSATE SODIUM 50 MG/SENNA 8.6 MG TAB PO SCH (09:00)
[2017-09-02] MEDS: FOLIC ACID 1 MG TAB PO SCH (09:25)
[2017-09-02] MEDS: CALCIUM CARBONATE 500 MG CHEWABLE TAB CHEW SCH (09:25)
[2017-09-02] MEDS: PANTOPRAZOLE SOD 40 MG DELAYED RELEASE TAB PO SCH (09:25)
[2017-09-02] MEDS: MAGNESIUM OXIDE 400 MG TAB PO SCH (09:25)
[2017-09-02] MEDS: ASCORBIC ACID 500 MG TAB PO SCH (09:25)
[2017-09-02] MEDS: LACTOBACILLUS ACIDOPHILUS TAB PO SCH (09:25)
[2017-09-02] MEDS: INSULIN ASPART SUPPLEMENTAL SCALE SQ SCH ×2 (09:26→13:12)
[2017-09-02] MEDS: SODIUM CHLORIDE 0.9% FLUSH 10 ML FLUSH IV FLUSH SCH (09:26)
[2017-09-02] MEDS: CIPROFLOXACIN 500 MG TAB PO SCH (09:26)
[2017-09-02 11:31] LABS: HEMATOCRIT 26.1 % (39.0-51.0); HEMOGLOBIN 8.5 GM/DL (13.0-17.0); MEAN CELL VOLUME 93.2 FL (80.0-100.0); MEAN CORPUSCULAR HEMOGLOBIN 30.2 PG (27.0-34.0); MEAN CORPUSCULAR HGB CONC 32.4 % (32.0-36.0); MEAN PLATELET VOLUME 6.7 FL (7.0-11.0); PLATELET COUNT 599 TH/MM3 (150-450); RED CELL DISTRIBUTION WIDTH 17.7 % (11.6-17.2); WHITE BLOOD COUNT 8.1 TH/MM3 (4.0-11.0)
[2017-09-02 12:09] VITALS: BP 107/63; PULSE 86; RESP 18; TEMP 97.8; O2SAT 96
[2017-09-02 12:21] LABS: BICARBONATE 24.1 MEQ/L (21.0-32.0); CALCIUM 7.5 MG/DL (8.5-10.1); CREATININE 0.64 MG/DL (0.60-1.30)
--- NOTE | 2017-09-02 14:54 | HHI.DS ---
Discharge Summary Admission Date Aug 28, 2017 at 08:01 Discharge Date: Sep 02, 2017 Admitting Diagnosis Generalized weakness (1) Self-care deficit in patient living alone ICD Code: R46.89 - Other symptoms and signs involving appearance and behavior (2) Gait instability ICD Code: R26.81 - Unsteadiness on feet (3) Rhabdomyolysis ICD Code: M62.82 - Rhabdomyolysis (4) DM (diabetes mellitus) ICD Code: E11.9 - Type 2 diabetes mellitus without complications Status: Chronic Procedures Status post EGD/colonoscopy by Dr. Cortes 08/29/17 Brief History - From Admission This is an 86-year-old male with a PMH of HTN and DM who was brought to the ER by Police under [place] Act secondary to confusion and unable to care for self. Per Police report, patient refusing medical attention and had defecated on the floor. Noted to be confused at that time. On arrival, BP 138/65, HR 100, O2 sat 100% on RA, Afebrile. CBC essentially unremarkable. Chemistry unremarkable except for BS 217. CPK 735. CT Head w/ no acute findings. Patient was gotten up to ambulate, however noted to have significant gait instability which we were asked to admit. Remains under [place] Act at this time. CBC/BMP: 09/02/17 1030 09/02/17 1030 Significant Findings Laboratory Tests Test 08/31/17 09:37 08/31/17 18:32 09/01/17 07:21 09/02/17 10:30 Red Blood Count 2.69 MIL/MM3 (4.50-5.90) 2.78 MIL/MM3 (4.50-5.90) 2.80 MIL/MM3 (4.50-5.90) Hemoglobin 8.5 GM/DL (13.0-17.0) 8.6 GM/DL (13.0-17.0) 8.5 GM/DL (13.0-17.0) Hematocrit 25.0 % (39.0-51.0) 25.9 % (39.0-51.0) 26.1 % (39.0-51.0) Red Cell Distribution Width 17.3 % (11.6-17.2) 17.4 % (11.6-17.2) 17.7 % (11.6-17.2) Platelet Count 479 TH/MM3 (150-450) 527 TH/MM3 (150-450) 599 TH/MM3 (150-450) Mean Platelet Volume 6.5 FL (7.0-11.0) 6.8 FL (7.0-11.0) 6.7 FL (7.0-11.0) Neutrophils (%) (Auto) 72.6 % (16.0-70.0) Monocytes (%) (Auto) 12.0 % (0.0-8.0) 14.3 % (0.0-8.0) Monocytes # (Auto) 1.0 TH/MM3 (0-0.9) 1.1 TH/MM3 (0-0.9) Blood Urea Nitrogen 5 MG/DL (7-18) 4 MG/DL (7-18) 5 MG/DL (7-18) Creatinine 0.40 MG/DL (0.60-1.30) 0.43 MG/DL (0.60-1.30) Random Glucose 183 MG/DL (74-106) 250 MG/DL (74-106) 129 MG/DL (74-106) 187 MG/DL (74-106) Total Protein 5.9 GM/DL (6.4-8.2) Calcium Level 7.2 MG/DL (8.5-10.1) 7.9 MG/DL (8.5-10.1) 7.7 MG/DL (8.5-10.1) 7.5 MG/DL (8.5-10.1) Sodium Level 134 MEQ/L (136-145) 130 MEQ/L (136-145) 133 MEQ/L (136-145) 134 MEQ/L (136-145) Potassium Level 2.9 MEQ/L (3.5-5.1) 3.3 MEQ/L (3.5-5.1) Protein Corrected Calcium 7.8 MG/DL (8.5-10.1) Band Neutrophils % 16 % (0-6) Myelocytes 3 % (0-0) Toxic Granulation 1+ (NORMAL) Platelet Estimate HIGH (NORMAL) Magnesium Level 1.3 MG/DL (1.5-2.5) PE at Discharge GENERAL: Well-nourished, well-developed pleasant elderly male patient in [facility]. CARDIOVASCULAR: Regular rate and rhythm. S1, S2 noted. No murmur appreciated. RESPIRATORY: No accessory muscle use. Clear to auscultation. Breath sounds equal bilaterally. GASTROINTESTINAL: Abdomen soft, non-tender, nondistended. Normoactive bowel sounds x4. MUSCULOSKELETAL: No obvious deformities. Extremities without clubbing, cyanosis , or edema. Pain of the right hip with range of motion. NEUROLOGICAL: Awake and alert. No obvious cranial nerve deficits. Motor grossly within normal limits. 5/5 strength bilateral upper and lower extremities. Normal speech. PSYCHIATRIC: Appropriate mood and affect; insight and judgment normal. Pt Condition on Discharge: Stable Discharge Disposition: Discharge to SNF Discharge Instructions DIET: Follow Instructions for: Heart Healthy Diet, Diabetic Diet Activities you can perform: Regular-No Restrictions Other Activity Instructions: as per PT instructions OOB with assistance Jon Torres MD Sep 02, 2017 14:54
--- NOTE | 2017-09-02 14:56 | PQ ---
Physician Query Response Document PATIENT: BIRD ENCINAS : 1930 ADMIT DATE: 08/28/2017 8:01 AM DISCH DATE: RESPONDING PROVIDER #: [email or web address] QUERY TEXT: CDS Clarification severe protein-calorie malnutrition in setting of Norovirus being treated with dietary consult and En sure TID. Other explanation of clinical findings. Unable to determine (no explanation for clinical findings). Please clarify and document your clinical opinion in the progress notes and discharge summary includi ng the definitive and/or presumptive diagnosis (suspected or probable), related to the above clinical findings. Please include clinical findings supporting your diagnosis. Thank you, Rocio Osorio RN CDS: Rocio Osorio RN ext.) [phone] Patient Unit: [id number] Contact Number: Room: 1409 The patient's Clinical Indicators include: * Clinical Indicators: 25 pound wt loss in 3 weeks, decreased po intake, pt reports no appetite and n ot eating well at home, weak * Risk Factors: norovirus, weakness, gastric ulcers * Treatment: Dietary consult, Ensure TID Query created by: Katy Osorio on 09/02/2017 9:40 AM RESPONSE TEXT: Patient has moderate protein calorie malnutrition with 25 lb weight loss and low albumin. Electronically signed by: Jon Hewitt MD 09/02/2017 2:52 PM
[2017-09-02 16:09] VITALS: BP 120/67; PULSE 100; RESP 18; TEMP 98.4; O2SAT 99
[2017-09-02] MEDS ORDERED: POTASSIUM CHLORIDE 20 MEQ CONTROLLED RELEASE TAB PO SCH (21:00)
== END 2017-09-02 17:34 | DRG 558 ==
LOC: NEPD 22:59 → NEDA 08-26 02:06 → NEPFCDU 08-26 04:34 → OBSVTOIN 08-28 08:01 → N04A 09-01 17:56
PROVIDERS: ADMIT Hospitalist; ATTEND Hospitalist
PROC: 3E033GC Introduction of Other Therapeutic Substance into Peripheral Vein, Percutaneous Approach (ICD-10-PCS; 2017-08-27)
PROC: 0DB68ZX Excision of Stomach, Via Natural or Artificial Opening Endoscopic, Diagnostic (ICD-10-PCS; principal; 2017-08-29 09:20)
PROC: 0DDL8ZX Extraction of Transverse Colon, Via Natural or Artificial Opening Endoscopic, Diagnostic (ICD-10-PCS; 2017-08-29 09:20)
DX: M62.82 Rhabdomyolysis (principal); E44.0 Moderate protein-calorie malnutrition; Z68.21 Body mass index [BMI] 21.0-21.9, adult; E11.9 Type 2 diabetes mellitus without complications; Z79.84 Long term (current) use of oral hypoglycemic drugs; A08.39 Other viral enteritis; K25.9 Gastric ulcer, unspecified as acute or chronic, without hemorrhage or perforation; K26.9 Duodenal ulcer, unspecified as acute or chronic, without hemorrhage or perforation; K20.9 Esophagitis, unspecified; K44.9 Diaphragmatic hernia without obstruction or gangrene; K57.30 Diverticulosis of large intestine without perforation or abscess without bleeding; E83.42 Hypomagnesemia; E86.0 Dehydration; I10 Essential (primary) hypertension; D50.9 Iron deficiency anemia, unspecified; R26.81 Unsteadiness on feet; R63.4 Abnormal weight loss; M25.551 Pain in right hip; E83.51 Hypocalcemia; E87.6 Hypokalemia
CPT/HCPCS: 36430; 70450; 73502; 76937; 80048; 80053; 80074; 81001; 82272; 82550; 82552; 82607; 82728; 82746; 82948; 83010; 83036; 83540; 83550; 83615; 83735; 84155; 84165; 85007; 85014; 85018; 85025; 85027; 86850; 86880; 86900; 86901; 86920; 87493; 87506; 88305; 88312; 93005; 96361; 96365; 96366; 96372; G0378; G8987-GO; G8987-GP; G8988-GO; G8988-GP; J0610; J1756; J1815; J3475; J3480; J7030; J7050; P9016

== ENCOUNTER 2017-09-23 18:23 | Inpatient (IN) | payer OTHER, MEDICARE ==
[~2017-09-23] VITALS: Ht 172.7 cm; Wt 51.5 kg
[~2017-09-23 18:23] MED LIST changes: +CIPR500T2 PO; -DOCU1CAP39 PO; +FERR325T18 PO; +FOLI1TAB6 PO; +LACTCHW3 CHEW; -LORTA5 PO; +NORC5TAB PO
[2017-09-23 19:00] VITALS: BP 161/78; PULSE 116; RESP 18; O2SAT 100
[2017-09-23] MEDS ORDERED: METF1000 PO (19:11)
[2017-09-23] MEDS ORDERED: PRAV40TA2 PO (19:11)
[2017-09-23] MEDS ORDERED: GLIP10TA6 PO (19:11)
[2017-09-23] MEDS ORDERED: GABA300C5 PO (19:11)
[2017-09-23] MEDS ORDERED: SITA1TAB2 PO (19:11)
[2017-09-23] MEDS ORDERED: SODIUM CHLOR 0.9% 1000 ML INJ 1,000 ML IV SCH (19:21)
[2017-09-23] MEDS ORDERED: SODIUM CHLORIDE 0.9% FLUSH 10 ML FLUSH IV FLUSH PRN ×2 (19:30→23:45)
[2017-09-23] MEDS ORDERED: ACETAMINOPHEN 325 MG TAB PO ONE (19:30)
--- NOTE | 2017-09-23 19:42 | PD ---
HPI Chief Complaint: General Weakness Time Seen by Provider: 19:05 Travel History International Travel<30 days: No Contact w/Intl Traveler<30days: No Traveled to known affect area: No History of Present Illness HPI Patient is a 86 year old male who comes in due to concerns he is unable to care for himself. He was here a few weeks ago for the same thing and was placed in a rehab facility. However, he was discharged a few days ago because of insurance issues. A neighbor called because he was concerned he was not taking care of himself. Per EMS, he was covered in feces. Patient reports complaints of weakness and right hip pain. He says he did not eat breakfast this morning because there is nothing in his house. He denies other symptoms. Severity is mild. PFSH Past Medical History Cancer: No Cardiovascular Problems: Yes Chemotherapy: No Diabetes: Yes Patient Takes Glucophage: No Diminished Hearing: No Endocrine: Yes GERD: Yes Hypertension: Yes Musculoskeletal: No Neurologic: No Psychiatric: No Reproductive: No Respiratory: No (denies) Immunizations Current: Yes Radiation Therapy: No Tetanus Vaccination: Unknown Influenza Vaccination: Yes Past Surgical History Other Surgery: No Social History Alcohol Use: Yes (red wine) Tobacco Use: No Substance Use: No Allergies-Medications (Allergen,Severity, Reaction): Coded Allergies: No Known Allergies (Unverified Allergy, Unknown, 09/23/17) Reported Meds & Prescriptions Reported Meds & Active Scripts Active Apex (Hydrocodone-Acetaminophen) 5 Mg-325 Mg Tab 1 Tab PO Q6H PRN Lactinex (Lactobacillus Acidophilus) 1 Chew 1 Tab CHEW DAILY Ferrous Sulfate 325 Mg (65 Mg Iron) Tablet 325 Mg PO DAILY Folic Acid 1 Mg Tablet 1 Mg PO DAILY Reported Glipizide 10 Mg Tab 10 Mg PO BIDAC Take 30 minutes before a meal Metformin (Metformin HCl) 1,000 Mg Tab 1,500 Mg PO AC BREAKFAST Gabapentin 300 Mg Cap 300 Mg PO DAILY Pravastatin 40 Mg Tab 40 Mg PO DAILY Januvia (Sitagliptin Phosphate) 100 Mg Tab 100 Mg PO DAILY Review of Systems Except as stated in HPI: all other systems reviewed are Neg General / Constitutional: No: Fever, Chills Eyes: No: Blurred Vision HENT: No: Headaches, Lightheadedness Cardiovascular: No: Chest Pain or Discomfort Respiratory: No: Shortness of Breath Gastrointestinal: No: Nausea, Vomiting Musculoskeletal: Positive: Pain Skin: No Rash, No Change in Pigmentation Neurologic: Positive: Weakness Physical Exam Narrative GENERAL: Awake and alert, in no acute distress. Very thin in appearance. SKIN: Focused skin assessment warm/dry. Tenting of the skin present. HEAD: Atraumatic. Normocephalic. EYES: Pupils equal and round. No scleral icterus. No injection or drainage. ENT: No nasal bleeding or discharge. NECK: Trachea midline. No JVD. CARDIOVASCULAR: Tachycardia. No murmur appreciated. RESPIRATORY: No accessory muscle use. Clear to auscultation. Breath sounds equal bilaterally. GASTROINTESTINAL: Abdomen soft, non-tender, nondistended. MUSCULOSKELETAL: No obvious deformities. No clubbing. No cyanosis. No edema. NEUROLOGICAL: Awake and alert. No obvious cranial nerve deficits. Motor grossly within normal limits. Normal speech. PSYCHIATRIC: Appropriate mood and affect; insight and judgment normal. Data Data Last Documented VS Vital Signs Date Time Temp Pulse Resp B/P (MAP) Pulse Ox O2 Delivery O2 Flow Rate FiO2 09/23/17 22:21 107 20 126/69 (88) 98 Room Air Orders Orders Electrocardiogram (09/23/17 19:21) Complete Blood Count With Diff (09/23/17 19:21) Comprehensive Metabolic Panel (09/23/17 19:21) Creatine Kinase (Cpk) (09/23/17 19:21) Prothrombin Time / Inr (Pt) (09/23/17 19:21) Act Partial Throm Time (Ptt) (09/23/17 19:21) Troponin I (09/23/17 19:21) Urinalysis - C+S If Indicated (09/23/17 19:21) Lactic Acid Sepsis Protocol (09/23/17 19:21) Chest, Single Ap (09/23/17 19:21) Blood Glucose (09/23/17 19:21) Ecg Monitoring (09/23/17 19:21) Iv Access Insert/Monitor (09/23/17 19:21) Oximetry (09/23/17 19:21) Sodium Chloride 0.9% Flush (Ns Flush) (09/23/17 19:30) Sodium Chlor 0.9% 1000 Ml Inj (Ns 1000 M (09/23/17 19:21) Acetaminophen (Tylenol) (09/23/17 19:30) Admit Order (Ed Use Only) (09/23/17 ) (Hub Use Only)Inp Phy Cons/Ref (09/23/17 ) Place In Observation (09/23/17 ) Vital Signs (Adult) Q4H (09/23/17 23:45) Neuro Checks Q4H (09/23/17 23:45) Activity Bed Rest With Brp (09/23/17 23:45) Intake + Output BIANCA.QSHIFT (09/23/17 23:45) Diet 1800 Ada Cons Carb (09/24/17 Breakfast) Sodium Chlor 0.9% 1000 Ml Inj (Ns 1000 M (09/23/17 23:45) Sodium Chloride 0.9% Flush (Ns Flush) (09/23/17 23:45) Sodium Chloride 0.9% Flush (Ns Flush) (09/24/17 09:00) Acetaminophen (Tylenol) (09/23/17 23:45) Ondansetron Inj (Zofran Inj) (09/23/17 23:45) Basic Metabolic Panel (Bmp) (09/24/17 06:00) Complete Blood Count With Diff (09/24/17 06:00) Pt Request For Service (09/23/17 23:45) Case Management Consult (09/23/17 23:45) Scd Bilateral/Knee High BIANCA.BID (09/23/17 23:45) Naloxone Inj (Narcan Inj) (09/23/17 23:45) Bedside Glucose BIANCA.CSUGAR (09/23/17 23:45) Blood Glucose Goal (Criteria) (09/23/17 23:45) Hypoglycemia 70 Mg/Dl Or < (09/23/17 23:45) Notify Dr: Other (09/23/17 23:45) Dextrose 50% In Donny (Vial) Inj (D50w (Vi (09/23/17 23:45) Glucagon Inj (Glucagon Inj) (09/23/17 23:45) Insulin Aspart Supplemtl Scale (Novolog (09/24/17 08:00) Labs Laboratory Tests Test 09/23/17 19:05 09/23/17 19:40 09/23/17 22:58 White Blood Count 15.0 TH/MM3 Red Blood Count 3.01 MIL/MM3 Hemoglobin 9.3 GM/DL Hematocrit 27.8 % Mean Corpuscular Volume 92.4 FL Mean Corpuscular Hemoglobin 30.8 PG Mean Corpuscular Hemoglobin Concent 33.3 % Red Cell Distribution Width 18.1 % Platelet Count 650 TH/MM3 Mean Platelet Volume 6.8 FL Neutrophils (%) (Auto) 84.6 % Lymphocytes (%) (Auto) 7.7 % Monocytes (%) (Auto) 7.5 % Eosinophils (%) (Auto) 0.0 % Basophils (%) (Auto) 0.2 % Neutrophils # (Auto) 12.7 TH/MM3 Lymphocytes # (Auto) 1.2 TH/MM3 Monocytes # (Auto) 1.1 TH/MM3 Eosinophils # (Auto) 0.0 TH/MM3 Basophils # (Auto) 0.0 TH/MM3 CBC Comment DIFF FINAL Differential Comment Prothrombin Time 11.4 SEC Prothromb Time International Ratio 1.1 RATIO Activated Partial Thromboplast Time 26.7 SEC Blood Urea Nitrogen 28 MG/DL Creatinine 0.96 MG/DL Random Glucose 211 MG/DL Total Protein 8.6 GM/DL Albumin 2.5 GM/DL Calcium Level 9.2 MG/DL Alkaline Phosphatase 101 U/L Aspartate Amino Transf (AST/SGOT) 30 U/L Alanine Aminotransferase (ALT/SGPT) 18 U/L Total Bilirubin 0.6 MG/DL Sodium Level 125 MEQ/L Potassium Level 5.1 MEQ/L Chloride Level 91 MEQ/L Carbon Dioxide Level 18.8 MEQ/L Anion Gap 15 MEQ/L Estimat Glomerular Filtration Rate 74 ML/MIN Total Creatine Kinase 197 U/L Troponin I 0.04 NG/ML Lactic Acid Level 1.5 mmol/L Urine Color YELLOW Urine Turbidity CLEAR Urine pH 5.5 Urine Specific [place] 1.022 Urine Protein 30 mg/dL Urine Glucose (UA) NEG mg/dL Urine Ketones 40 mg/dL Urine Occult Blood TRACE Urine Nitrite NEG Urine Bilirubin NEG Urine Urobilinogen LESS THAN 2.0 MG/DL Urine Leukocyte Esterase NEG Urine RBC 2 /hpf Urine WBC 1 /hpf Urine Hyaline Casts 26 /lpf Urine Granular Casts 7 /lpf Urine Mucus FEW /lpf Microscopic Urinalysis Comment CATH-CULT NOT IND MDM Medical Decision Making Medical Screen Exam Complete: Yes Emergency Medical Condition: Yes Medical Record Reviewed: Yes Interpretation(s) ECG shows RBBB, sinus tachycardia at a rate of 109. Differential Diagnosis Dehydration versus electrolyte abnormality versus infection Narrative Course . Exam shows evidence of dehydration. IV established, labs sent. Labs concerning for sodium of 125. BUN is elevated suggesting dehydration. Patient given IV fluids. Chest x-ray performed shows no acute abnormalities. He will be admitted for further management. Last 24 hours Impressions Chest X-Ray 09/23/171920 Signed Impressions: Service Date/Time: Saturday, September 23, 2017 19:35 - CONCLUSION: 1. No active disease. Nicholas Jacobsen MD Diagnosis Primary Impression: Dehydration Additional Impression: Hyponatremia Admitting Information Admitting Physician Requests: Admit Lety Wright MD Sep 23, 2017 19:42
[2017-09-23 19:43] LABS: AUTOMATED NEUTROPHIL # 12.7 TH/MM3 (1.8-7.7); BASOPHIL % 0.2 % (0.0-2.0); HEMATOCRIT 27.8 % (39.0-51.0); HEMOGLOBIN 9.3 GM/DL (13.0-17.0); LYMPH % 7.7 % (9.0-44.0); LYMPHOCYTE # 1.2 TH/MM3 (1.0-4.8); MEAN CELL VOLUME 92.4 FL (80.0-100.0); MEAN CORPUSCULAR HEMOGLOBIN 30.8 PG (27.0-34.0); MEAN CORPUSCULAR HGB CONC 33.3 % (32.0-36.0); MEAN PLATELET VOLUME 6.8 FL (7.0-11.0); MONO % 7.5 % (0.0-8.0); MONOCYTE # 1.1 TH/MM3 (0-0.9); NEUT % 84.6 % (16.0-70.0); PLATELET COUNT 650 TH/MM3 (150-450); RED BLOOD COUNT 3.01 MIL/MM3 (4.50-5.90); RED CELL DISTRIBUTION WIDTH 18.1 % (11.6-17.2)
[2017-09-23 19:53] LABS: INTERNATIONAL NORMALIZED RATIO 1.1 RATIO; PROTHROMBIN TIME - PATIENT 11.4 SEC (9.8-11.6)
[2017-09-23 20:08] LABS: ALT (GPT) 18 U/L (12-78)
--- NOTE | 2017-09-23 20:09 | RADRPT ---
EXAM DATE/TIME: 09/23/2017 19:35 [facility] COMPARISON: CHEST SINGLE AP, March 25, 2016, 19:50. INDICATIONS : Short of breath. MEDICAL HISTORY : None. SURGICAL HISTORY : None. ENCOUNTER: Initial ACUITY: 1 day PAIN SCORE: 0/10 LOCATION: Bilateral chest FINDINGS: A single view of the chest demonstrates the lungs to be symmetrically aerated without evidence of mas s, infiltrate or effusion. The cardiomediastinal contours are unremarkable. Osseous structures are intact. CONCLUSION: 1. No active disease. Nicholas Jacobsen MD on September 23, 2017 at 20:05 Board Certified Radiologist. This report was verified electronically.
[2017-09-23 20:18] LABS: ALBUMIN 2.5 GM/DL (3.4-5.0); ALKALINE PHOSPHATASE 101 U/L (45-117); AST (GOT) 30 U/L (15-37); BICARBONATE 18.8 MEQ/L (21.0-32.0); BLOOD UREA NITROGEN 28 MG/DL (7-18); CALCIUM 9.2 MG/DL (8.5-10.1); CHLORIDE 91 MEQ/L (98-107); CREATININE 0.96 MG/DL (0.60-1.30); GLOMERULAR FILTRATION RATE 74 ML/MIN (>89); GLUCOSE,RANDOM 211 MG/DL (74-106); SODIUM (NA) 125 MEQ/L (136-145); TOTAL BILIRUBIN ADULT 0.6 MG/DL (0.2-1.0); TOTAL PROTEIN 8.6 GM/DL (6.4-8.2); TROPONIN I 0.04 NG/ML (0.02-0.05)
[2017-09-23 22:21] VITALS: BP 126/69; PULSE 107; RESP 20; O2SAT 98
[2017-09-23 23:09] LABS: BILIRUBIN, URINE NEG (NEG); BLOOD, URINE TRACE (NEG); GLUCOSE,URINE NEG (NEG); HYALINE CAST, URINE 26 /lpf (RARE); KETONE, URINE 40 mg/dL (NEG); MUCUS URINE FEW /lpf (OCC); NITRITE,URINE NEG (NEG); PH, URINE 5.5 (5.0-8.5); URINE COLOR YELLOW (YELLW/STRAW); URINE LEUKOCYTE ESTERASE NEG (NEG)
[2017-09-23] MEDS ORDERED: ONDANSETRON HCL 4 MG/2 ML VIAL IVP PRN (23:45)
[2017-09-23] MEDS ORDERED: NALOXONE HCL 0.4 MG/ML AMP IV PUSH PRN (23:45)
[2017-09-23] MEDS ORDERED: GLUCAGON 1 MG/ML VIAL OTHER PRN (23:45)
--- NOTE | 2017-09-23 23:47 | HHI.HP ---
[facility] Primary [facility] Physician Unknown Admission Diagnosis hyponatremia, dehydration Diagnoses: Chief Complaint: Unable to care for himself Travel History International Travel<30 Days: No Contact w/Intl Traveler <30 Da: No Traveled to Known Affected Are: No History of Present Illness 86-year-old male with a history of hypertension and diabetes was brought to the ED after his neighbor had concerns for unable to care for himself. Patient was sent to a rehab facility a few weeks ago and just discharged a few days ago due to insurance issues. Patient was found at home by EMS covered in feces. Upon examination patient states he lives alone does not feel that he can care for himself, he states he is weak. He denies any chest pain, shortness of breath, fever or chills. He does state that he has not been eating or drinking because he is not in his house. Review of Systems Except as stated in HPI: all other systems reviewed are Neg Past Family Social History Past Medical History Hypertension Diabetes Past Surgical History Right hip surgery Reported Medications Reported Meds & Active Scripts Active [place] (Hydrocodone-Acetaminophen) 5 Mg-325 Mg Tab 1 Tab PO Q6H PRN Lactinex (Lactobacillus Acidophilus) 1 Chew 1 Tab CHEW DAILY Ferrous Sulfate 325 Mg (65 Mg Iron) Tablet 325 Mg PO DAILY Folic Acid 1 Mg Tablet 1 Mg PO DAILY Reported Glipizide 10 Mg Tab 10 Mg PO BIDAC Take 30 minutes before a meal Metformin (Metformin HCl) 1,000 Mg Tab 1,500 Mg PO AC BREAKFAST Gabapentin 300 Mg Cap 300 Mg PO DAILY Pravastatin 40 Mg Tab 40 Mg PO DAILY Januvia (Sitagliptin Phosphate) 100 Mg Tab 100 Mg PO DAILY Allergies: Coded Allergies: No Known Allergies (Unverified Allergy, Unknown, 09/23/17) Active Ordered Medications Current Medications Medications (Trade) Dose Ordered Sig/Rodrigo Route Start Time Stop Time Status Last Admin (NS Flush) 2 ml UNSCH PRN IV FLUSH 09/23/17 19:30 Sodium Chloride 1,000 ml @ 75 mls/hr [id number] IV 09/23/17 23:45 UNV (NS Flush) 2 ml UNSCH PRN IV FLUSH 09/23/17 23:45 UNV (NS Flush) 2 ml BID IV FLUSH 09/24/17 09:00 UNV (Tylenol) 650 mg Q4H PRN PO 09/23/17 23:45 UNV (Zofran Inj) 4 mg Q6H PRN IVP 09/23/17 23:45 UNV (Narcan Inj) 0.4 mg UNSCH PRN IV PUSH 09/23/17 23:45 UNV (D50w (Vial) Inj) 50 ml UNSCH PRN IV PUSH 09/23/17 23:45 UNV (Glucagon Inj) 1 mg UNSCH PRN OTHER 09/23/17 23:45 UNV (NovoLOG SUPPLEMENTAL SCALE) 1 ACHS SLIDING SCALE SQ 09/24/17 08:00 UNV Family History Patient denies any family history no heart disease or cancer. Social History Patient denies any tobacco, alcohol or illicit drug use Physical Exam Vital Signs Vital Signs Date Time Temp Pulse Resp B/P (MAP) Pulse Ox O2 Delivery O2 Flow Rate FiO2 09/23/17 22:21 107 20 126/69 (88) 98 Room Air 09/23/17 19:00 116 18 161/78 (105) 100 Physical Exam GENERAL: This is a well-nourished, well-developed patient, in no apparent distress. SKIN: No rashes, ecchymoses or lesions. Cool and dry. HEAD: Atraumatic. Normocephalic. EYES: Pupils equal round and reactive. Extraocular motions intact. ENT: Nose without bleeding, purulent drainage or septal hematoma.Airway patent. CARDIOVASCULAR: Regular rate and rhythm without murmurs, gallops, or rubs. RESPIRATORY: Clear to auscultation. Breath sounds equal bilaterally. No wheezes , rales, or rhonchi. GASTROINTESTINAL: Abdomen soft, non-tender, nondistended. MUSCULOSKELETAL: Extremities without clubbing, cyanosis, or edema. No joint tenderness, effusion, or edema noted. No calf tenderness. NEUROLOGICAL: Awake and alert. Motor and sensory grossly within normal limits. Normal speech. Laboratory Laboratory Tests Test 09/23/17 19:05 09/23/17 19:40 09/23/17 22:58 White Blood Count 15.0 Red Blood Count 3.01 Hemoglobin 9.3 Hematocrit 27.8 Mean Corpuscular Volume 92.4 Mean Corpuscular Hemoglobin 30.8 Mean Corpuscular Hemoglobin Concent 33.3 Red Cell Distribution Width 18.1 Platelet Count 650 Mean Platelet Volume 6.8 Neutrophils (%) (Auto) 84.6 Lymphocytes (%) (Auto) 7.7 Monocytes (%) (Auto) 7.5 Eosinophils (%) (Auto) 0.0 Basophils (%) (Auto) 0.2 Neutrophils # (Auto) 12.7 Lymphocytes # (Auto) 1.2 Monocytes # (Auto) 1.1 Eosinophils # (Auto) 0.0 Basophils # (Auto) 0.0 CBC Comment DIFF FINAL Differential Comment Prothrombin Time 11.4 Prothromb Time International Ratio 1.1 Activated Partial Thromboplast Time 26.7 Blood Urea Nitrogen 28 Creatinine 0.96 Random Glucose 211 Total Protein 8.6 Albumin 2.5 Calcium Level 9.2 Alkaline Phosphatase 101 Aspartate Amino Transf (AST/SGOT) 30 Alanine Aminotransferase (ALT/SGPT) 18 Total Bilirubin 0.6 Sodium Level 125 Potassium Level 5.1 Chloride Level 91 Carbon Dioxide Level 18.8 Anion Gap 15 Estimat Glomerular Filtration Rate 74 Total Creatine Kinase 197 Troponin I 0.04 Lactic Acid Level 1.5 Urine Color YELLOW Urine Turbidity CLEAR Urine pH 5.5 Urine Specific [place] 1.022 Urine Protein 30 Urine Glucose (UA) NEG Urine Ketones 40 Urine Occult Blood TRACE Urine Nitrite NEG Urine Bilirubin NEG Urine Urobilinogen LESS THAN 2.0 Urine Leukocyte Esterase NEG Urine RBC 2 Urine WBC 1 Urine Hyaline Casts 26 Urine Granular Casts 7 Urine Mucus FEW Microscopic Urinalysis Comment CATH-CULT NOT IND Result Diagram: 09/23/17190409/23/171904 Imaging Last Impressions Chest X-Ray 09/23/171920 Signed Impressions: Service Date/Time: Saturday, September 23, 2017 19:35 - CONCLUSION: 1. No active disease. Nicholas Jacobsen MD Caprini VTE Risk Assessment Caprini VTE Risk Assessment: No/Low Risk (score <= 1) Caprini Risk Assessment Model Point Value = 1 Point Value = 2 Point Value = 3 Point Value = 5 Age 41-60 Minor surgery BMI > 25 kg/m2 Swollen legs Varicose veins or History of unexplained or recurrent spontaneous Oral contraceptives or hormone replacement Sepsis (< 1 month) Serious lung disease, including pneumonia (< 1 month) Abnormal pulmonary function Acute myocardial infarction Congestive heart failure (< 1 month) History of inflammatory bowel disease Medical patient at bed rest Age 61-74 Arthroscopic surgery Major open surgery (> 45 min) Laparoscopic surgery (> 45 min) Malignancy Confined to bed (> 72 hours) Immobilizing plaster cast Central venous access Age >= 75 History of VTE Family history of VTE Factor V Leiden Prothrombin [id number] Lupus anticoagulant Anticardiolipin antibodies Elevated serum homocysteine Heparin-induced thrombocytopenia Other congenital or acquired thrombophilia Stroke (< 1 month) Elective arthroplasty Hip, pelvis, or leg fracture Acute spinal cord injury (< 1 month) Prophylaxis Regimen Total Risk Factor Score Risk Level Prophylaxis Regimen 0-1 Low Early ambulation 2 Moderate Order ONE of the following: *Sequential Compression Device (SCD) *Heparin 5000 units SQ BID 3-4 Higher Order ONE of the following medications: *Heparin 5000 units SQ TID *Enoxaparin/Lovenox 40 mg SQ daily (WT < 150 kg, CrCl > 30 mL/min) *Enoxaparin/Lovenox 30 mg SQ daily (WT < 150 kg, CrCl > 10-29 mL/min) *Enoxaparin/Lovenox 30 mg SQ BID (WT < 150 kg, CrCl > 30 mL/min) AND/OR *Sequential Compression Device (SCD) 5 or more Highest Order ONE of the following medications: *Heparin 5000 units SQ TID (Preferred with Epidurals) *Enoxaparin/Lovenox 40 mg SQ daily (WT < 150 kg, CrCl > 30 mL/min) *Enoxaparin/Lovenox 30 mg SQ daily (WT < 150 kg, CrCl > 10-29 mL/min) *Enoxaparin/Lovenox 30 mg SQ BID (WT < 150 kg, CrCl > 30 mL/min) AND *Sequential Compression Device (SCD) Assessment and Plan Problem List: (1) Self-care deficit in patient living alone ICD Code: R46.89 - Other symptoms and signs involving appearance and behavior (2) DM (diabetes mellitus) ICD Code: E11.9 - Type 2 diabetes mellitus without complications Status: Chronic (3) Dehydration ICD Code: E86.0 - Dehydration (4) Hyponatremia ICD Code: E87.1 - Hypo-osmolality and hyponatremia Assessment and Plan 86-year-old male with a history of hypertension and diabetes was brought to the ED after his neighbor had concerns for unable to care for himself. Self-care deficit -Consult case management for placement, as patient lives alone and unable to care for self -PT eval and treat Mild dehydration, BUN 28 -IVF for hydration Hyponatremia, sodium 125, due to dehydration -Continue IVF as above -BMP in a.m. Diabetes, chronic -Accu-Cheks with sliding scale insulin Hypertension, chronic -Resume home medications, monitor vitals and adjust accordingly DVT prophylaxis: SCDs Discussed Condition With Patient and ED physician Problem Qualifiers (1) DM (diabetes mellitus): Qualified Codes: E11.42 - Type 2 diabetes mellitus with diabetic polyneuropathy Lexi Brunner Sep 23, 2017 23:47
[2017-09-24] MEDS: SODIUM CHLOR 0.9% 1000 ML INJ 1,000 ML IV SCH ×2 (00:29→17:00)
[2017-09-24 01:17] VITALS: BP 121/62; PULSE 96; RESP 24; TEMP 96.2; O2SAT 98
--- NOTE | 2017-09-24 04:48 | EKG ---
Date Performed: 09/23/2017 Time Performed: 19:22:02 PTAGE: 86 years EKG: SINUS TACHYCARDIA WITH OCCASIONAL ECTOPIC PREMATURE COMPLEXES INDETERMINATE AXIS RIGHT BUND LE BRANCH BLOCK ABNORMAL ECG No significant change from prior electrocardiogram. PREVIOUS TRACING : 08/25/2017 23.20 DOCTOR: Marko Andrews Interpretating Date/Time 09/24/2017 04:46:55
[2017-09-24 07:18] LABS: AUTOMATED NEUTROPHIL # 9.6 TH/MM3 (1.8-7.7); BASOPHIL % 0.4 % (0.0-2.0); EOSINOPHIL # 0.1 TH/MM3 (0-0.4); EOSINOPHIL % 0.8 % (0.0-4.0); HEMATOCRIT 25.9 % (39.0-51.0); HEMOGLOBIN 8.5 GM/DL (13.0-17.0); LYMPH % 12.4 % (9.0-44.0); LYMPHOCYTE # 1.6 TH/MM3 (1.0-4.8); MEAN CELL VOLUME 93.1 FL (80.0-100.0); MEAN CORPUSCULAR HEMOGLOBIN 30.7 PG (27.0-34.0); MEAN PLATELET VOLUME 7.1 FL (7.0-11.0); MONO % 13.2 % (0.0-8.0); MONOCYTE # 1.7 TH/MM3 (0-0.9); NEUT % 73.2 % (16.0-70.0); PLATELET COUNT 489 TH/MM3 (150-450); RED BLOOD COUNT 2.78 MIL/MM3 (4.50-5.90); RED CELL DISTRIBUTION WIDTH 18.6 % (11.6-17.2); WHITE BLOOD COUNT 13.1 TH/MM3 (4.0-11.0)
[2017-09-24 08:00] VITALS: BP 116/62; PULSE 93; RESP 18; TEMP 96.3; O2SAT 100
[2017-09-24] MEDS: INSULIN ASPART SUPPLEMENTAL SCALE SQ SCH ×4 (08:00→21:41)
[2017-09-24] MEDS: SODIUM CHLORIDE 0.9% FLUSH 10 ML FLUSH IV FLUSH SCH ×2 (09:00→21:38)
[2017-09-24 09:09] LABS: BICARBONATE 19.9 MEQ/L (21.0-32.0); CALCIUM 8.5 MG/DL (8.5-10.1); CREATININE 0.47 MG/DL (0.60-1.30)
[2017-09-24 12:00] VITALS: BP 103/61; PULSE 94; RESP 16; TEMP 97.5; O2SAT 98
[2017-09-24 14:36] VITALS: BP 114/58; PULSE 94; RESP 16; TEMP 97.5; O2SAT 99
--- NOTE | 2017-09-24 15:59 | HHI.PR ---
Subjective Remarks Patient denies chest pain, shortness of breath Denies fevers or chills Denies cough Denies diarrhea nausea or vomiting The patient states that he has lost some weight because he did not like the food over at the hospital and at the rehab center. Objective Vitals Vital Signs Date Time Temp Pulse Resp B/P (MAP) Pulse Ox O2 Delivery O2 Flow Rate FiO2 09/24/17 14:36 97.5 94 16 114/58 (76) 99 09/24/17 12:00 97.5 94 16 103/61 (75) 98 09/24/17 08:00 96.3 93 18 116/62 (80) 100 09/24/17 01:17 96.2 96 24 121/62 (81) 98 Room Air 09/23/17 22:21 107 20 126/69 (88) 98 Room Air 09/23/17 19:00 116 18 161/78 (105) 100 I/O 09/23/17 09/23/17 09/23/17 09/24/17 09/24/17 09/24/17 07:00 15:00 23:00 07:00 15:00 23:00 Intake Total 1000 ml Balance 1000 ml Intake IV Total 1000 ml Result Diagram: 09/24/17 0451 09/24/17 0745 Imaging Last Impressions Chest X-Ray 09/23/171920 Signed Impressions: Service Date/Time: Saturday, September 23, 2017 19:35 - CONCLUSION: 1. No active disease. Nicholas Jacobsen MD Objective Remarks GENERAL: Cachectic, not in acute distress. SKIN: No rashes, ecchymoses or lesions. Cool and dry. HEAD: Atraumatic. Normocephalic. EYES: Pupils equal round and reactive. Extraocular motions intact. ENT: Nose without bleeding, purulent drainage or septal hematoma.Airway patent. CARDIOVASCULAR: Regular rate and rhythm without murmurs, gallops, or rubs. RESPIRATORY: Clear to auscultation. Breath sounds equal bilaterally. No wheezes , rales, or rhonchi. GASTROINTESTINAL: Abdomen soft, non-tender, nondistended. MUSCULOSKELETAL: Extremities without clubbing, cyanosis, or edema. No joint tenderness, effusion, or edema noted. No calf tenderness. NEUROLOGICAL: Awake and alert. Motor and sensory grossly within normal limits. Normal speech. Medications and IVs Current Medications Medications (Trade) Dose Ordered Sig/Rodrigo Route Start Time Stop Time Status Last Admin Sodium Chloride 1,000 ml @ 75 mls/hr [id number] IV 09/23/17 23:45 09/24/17 00:29 (NS Flush) 2 ml UNSCH PRN IV FLUSH 09/23/17 23:45 (NS Flush) 2 ml BID IV FLUSH 09/24/17 09:00 (Tylenol) 650 mg Q4H PRN PO 09/23/17 23:45 (Zofran Inj) 4 mg Q6H PRN IVP 09/23/17 23:45 (Narcan Inj) 0.4 mg UNSCH PRN IV PUSH 09/23/17 23:45 (D50w (Vial) Inj) 50 ml UNSCH PRN IV PUSH 09/23/17 23:45 (Glucagon Inj) 1 mg UNSCH PRN OTHER 09/23/17 23:45 (NovoLOG SUPPLEMENTAL SCALE) 1 ACHS SLIDING SCALE SQ 09/24/17 08:00 A/P Problem List: (1) Self-care deficit in patient living alone ICD Code: R46.89 - Other symptoms and signs involving appearance and behavior Plan: Case management consult for placement. Patient lives alone and is unable to care for self. PT eval and treat -recommends PT at rehab. (2) DM (diabetes mellitus) ICD Code: E11.9 - Type 2 diabetes mellitus without complications Status: Chronic Plan: Last hemoglobin A1c obtained on 08/26/17 was 4.8. Diabetes is controlled. Continue Januvia, hold other hypoglycemic medications and placed on SSI with insulin NovoLog. Sugar seems to be stable. Continue gabapentin. (3) Dehydration ICD Code: E86.0 - Dehydration Plan: Continue normal saline. (4) Hyponatremia ICD Code: E87.1 - Hypo-osmolality and hyponatremia Plan: Likely due to hypovolemic hyponatremia. Continue IV normal saline and continue to monitor BMP. Sodium improving from 125 on admission up to 130. (5) Failure to thrive in adult ICD Code: R62.7 - Adult failure to thrive Plan: Patient states has lost weight. BMI 17.4. I will consult dietitian. (6) Generalized weakness ICD Code: R53.1 - Weakness Plan: PT consult as above. (7) Hyperlipidemia ICD Code: E78.5 - Hyperlipidemia, unspecified Plan: Continue statin (8) Severe protein-calorie malnutrition ICD Code: E43 - Unspecified severe protein-calorie malnutrition Status: Acute Plan: Consult dietitian for calorie count and recommendations to improve caloric intake. Assessment and Plan DVT prophylaxis: SCDs. Discharge Planning Continue to observe the medical floor. Problem Qualifiers (1) DM (diabetes mellitus): Qualified Codes: E11.42 - Type 2 diabetes mellitus with diabetic polyneuropathy (2) Hyperlipidemia: Qualified Codes: E78.5 - Hyperlipidemia, unspecified Jon Torres MD Sep 24, 2017 15:59
[2017-09-24 19:56] VITALS: BP 110/60; PULSE 70; RESP 16; TEMP 98.8; O2SAT 95
[2017-09-24] MEDS: ACETAMINOPHEN 325 MG TAB PO PRN (21:36)
[2017-09-24 23:51] VITALS: BP 96/54; PULSE 89; RESP 16; TEMP 97.8; O2SAT 98
[2017-09-25 04:48] VITALS: BP 125/59; PULSE 75; RESP 16; TEMP 98.1; O2SAT 96
[2017-09-25] MEDS: SODIUM CHLOR 0.9% 1000 ML INJ 1,000 ML IV SCH ×2 (05:06→16:46)
[2017-09-25] MEDS: ACETAMINOPHEN 325 MG TAB PO PRN (06:26)
[2017-09-25 07:49] VITALS: BP 111/57; PULSE 83; RESP 16; TEMP 98.4; O2SAT 97
[2017-09-25] MEDS: INSULIN ASPART SUPPLEMENTAL SCALE SQ SCH ×4 (08:00→21:00)
[2017-09-25] MEDS: SODIUM CHLORIDE 0.9% FLUSH 10 ML FLUSH IV FLUSH SCH ×2 (09:00→21:00)
[2017-09-25 10:31] LABS: AUTOMATED NEUTROPHIL # 6.4 TH/MM3 (1.8-7.7); BASOPHIL % 0.5 % (0.0-2.0); EOSINOPHIL # 0.1 TH/MM3 (0-0.4); EOSINOPHIL % 1.6 % (0.0-4.0); HEMATOCRIT 22.2 % (39.0-51.0); HEMOGLOBIN 7.4 GM/DL (13.0-17.0); LYMPHOCYTE # 1.2 TH/MM3 (1.0-4.8); MEAN CELL VOLUME 93.3 FL (80.0-100.0); MEAN CORPUSCULAR HEMOGLOBIN 31.2 PG (27.0-34.0); MEAN CORPUSCULAR HGB CONC 33.5 % (32.0-36.0); MEAN PLATELET VOLUME 6.9 FL (7.0-11.0); MONO % 11.8 % (0.0-8.0); NEUT % 72.1 % (16.0-70.0); PLATELET COUNT 507 TH/MM3 (150-450); RED BLOOD COUNT 2.38 MIL/MM3 (4.50-5.90); RED CELL DISTRIBUTION WIDTH 18.4 % (11.6-17.2); WHITE BLOOD COUNT 8.8 TH/MM3 (4.0-11.0)
[2017-09-25] MEDS: PRAVASTATIN SOD 40 MG TAB PO SCH (10:46)
[2017-09-25] MEDS: LACTOBACILLUS ACIDOPHILUS TAB PO SCH (10:46)
[2017-09-25] MEDS: FOLIC ACID 1 MG TAB PO SCH (10:46)
[2017-09-25] MEDS: FERROUS SULFATE 325 MG (65 MG ELEMENTAL IRON) TAB PO SCH (10:46)
[2017-09-25] MEDS: GABAPENTIN 300 MG CAP PO SCH (10:46)
[2017-09-25 10:58] LABS: ALT (GPT) 18 U/L (12-78); AST (GOT) 22 U/L (15-37); BICARBONATE 23.6 MEQ/L (21.0-32.0); BLOOD UREA NITROGEN 14 MG/DL (7-18); CALCIUM 8.2 MG/DL (8.5-10.1); CHLORIDE 102 MEQ/L (98-107); CREATININE 0.47 MG/DL (0.60-1.30); GLOMERULAR FILTRATION RATE 170 ML/MIN (>89); GLUCOSE,RANDOM 124 MG/DL (74-106); MAGNESIUM 1.2 MG/DL (1.5-2.5); SODIUM (NA) 134 MEQ/L (136-145)
[2017-09-25 11:02] LABS: ALKALINE PHOSPHATASE 77 U/L (45-117); PHOSPHORUS 1.8 MG/DL (2.5-4.9); TOTAL BILIRUBIN ADULT 0.4 MG/DL (0.2-1.0); TOTAL PROTEIN 6.6 GM/DL (6.4-8.2)
[2017-09-25 11:57] VITALS: BP 110/74; PULSE 82; RESP 18; TEMP 98; O2SAT 97
[2017-09-25 12:02] LABS: BANDS 11 % (0-6); BASOPHILS 1 % (0-2); LYMPHOCYTES 7 % (9-44); MONOCYTES 5 % (0-8); MYELOCYTES 1 % (0-0); NEUTROPHIL # MANUAL DIFF 7.7 TH/MM3 (1.8-7.7); OVALOCYTES 1+ (NORMAL); POLYS (SEG NEUTROPHILS) 75 % (16-70)
[2017-09-25 17:15] VITALS: BP 115/56; PULSE 90; RESP 18; TEMP 99.7; O2SAT 99
--- NOTE | 2017-09-25 19:20 | HHI.PR ---
Subjective Remarks Patient denies cp/sob. Afebrile States appetite is somewhat better Objective Vitals Vital Signs Date Time Temp Pulse Resp B/P (MAP) Pulse Ox O2 Delivery O2 Flow Rate FiO2 09/25/17 17:15 99.7 90 18 115/56 (75) 99 09/25/17 11:57 98.0 82 18 110/74 (86) 97 09/25/17 07:49 98.4 83 16 111/57 (75) 97 09/25/17 07:05 18 09/25/17 04:48 98.1 75 16 125/59 (81) 96 09/24/17 23:51 97.8 89 16 96/54 (68) 98 09/24/17 19:56 98.8 70 16 110/60 (77) 95 I/O 09/24/17 09/24/17 09/24/17 09/25/17 09/25/17 09/25/17 07:00 15:00 23:00 07:00 15:00 23:00 Intake Total 1200 ml Output Total 200 ml Balance 1000 ml Intake Oral 200 ml IV Total 1000 ml Output Urine Total 200 ml # Bowel Movements 1 Result Diagram: 09/25/17 0840 09/25/17 0840 Imaging Last Impressions Chest X-Ray 09/23/17 192 Signed Impressions: Service Date/Time: Saturday, September 23, 2017 19:35 - CONCLUSION: 1. No active disease. Nicholas Jacobsen MD Objective Remarks GENERAL: Cachectic, not in acute distress. SKIN: No rashes, ecchymoses or lesions. Cool and dry. HEAD: Atraumatic. Normocephalic. EYES: Pupils equal round and reactive. Extraocular motions intact. ENT: Nose without bleeding, purulent drainage or septal hematoma.Airway patent. CARDIOVASCULAR: Regular rate and rhythm without murmurs, gallops, or rubs. RESPIRATORY: Clear to auscultation. Breath sounds equal bilaterally. No wheezes , rales, or rhonchi. GASTROINTESTINAL: Abdomen soft, non-tender, nondistended. MUSCULOSKELETAL: Extremities without clubbing, cyanosis, or edema. No joint tenderness, effusion, or edema noted. No calf tenderness. NEUROLOGICAL: Awake and alert. Motor and sensory grossly within normal limits. Normal speech. Medications and IVs Current Medications Medications (Trade) Dose Ordered Sig/Rodrigo Route Start Time Stop Time Status Last Admin Sodium Chloride 1,000 ml @ 75 mls/hr [id number] IV 09/23/17 23:45 09/26/17 05:25 (NS Flush) 2 ml UNSCH PRN IV FLUSH 09/23/17 23:45 (NS Flush) 2 ml BID IV FLUSH 09/24/17 09:00 09/24/17 21:38 (Tylenol) 650 mg Q4H PRN PO 09/23/17 23:45 09/25/17 06:26 (Zofran Inj) 4 mg Q6H PRN IVP 09/23/17 23:45 (Narcan Inj) 0.4 mg UNSCH PRN IV PUSH 09/23/17 23:45 (D50w (Vial) Inj) 50 ml UNSCH PRN IV PUSH 09/23/17 23:45 (Glucagon Inj) 1 mg UNSCH PRN OTHER 09/23/17 23:45 (NovoLOG SUPPLEMENTAL SCALE) 1 ACHS SLIDING SCALE SQ 09/24/17 08:00 09/25/17 21:00 (Ferrous Sulfate) 325 mg DAILY PO 09/25/17 09:00 09/25/17 10:46 (Folate) 1 mg DAILY PO 09/25/17 09:00 09/25/17 10:46 (Neurontin) 300 mg DAILY PO 09/25/17 09:00 09/25/17 10:46 (Pravachol) 40 mg DAILY PO 09/25/17 09:00 09/25/17 10:46 (Januvia) 100 mg DAILY PO 09/25/17 09:00 09/25/17 10:46 (Lactinex) 1 tab DAILY PO 09/25/17 09:00 09/25/17 10:46 A/P Problem List: (1) Self-care deficit in patient living alone ICD Code: R46.89 - Other symptoms and signs involving appearance and behavior (2) DM (diabetes mellitus) ICD Code: E11.9 - Type 2 diabetes mellitus without complications Status: Chronic (3) Dehydration ICD Code: E86.0 - Dehydration (4) Hyponatremia ICD Code: E87.1 - Hypo-osmolality and hyponatremia (5) Failure to thrive in adult ICD Code: R62.7 - Adult failure to thrive (6) Generalized weakness ICD Code: R53.1 - Weakness (7) Hyperlipidemia ICD Code: E78.5 - Hyperlipidemia, unspecified (8) Severe protein-calorie malnutrition ICD Code: E43 - Unspecified severe protein-calorie malnutrition Status: Acute Assessment and Plan (1) Self-care deficit in patient living alone ICD Code: R46.89 - Other symptoms and signs involving appearance and behavior Plan: Case management consult for placement. Patient lives alone and is unable to care for self. PT eval and treat -recommends PT at rehab. (2) DM (diabetes mellitus) ICD Code: E11.9 - Type 2 diabetes mellitus without complications Status: Chronic Plan: Last hemoglobin A1c obtained on 08/26/17 was 4.8. Diabetes is controlled. Continue Januvia, hold other hypoglycemic medications and placed on SSI with insulin NovoLog. Sugar seems to be stable. Continue gabapentin. (3) Dehydration ICD Code: E86.0 - Dehydration Plan: Continue normal saline. (4) Hyponatremia ICD Code: E87.1 - Hypo-osmolality and hyponatremia Plan: Likely due to hypovolemic hyponatremia. Continue IV normal saline and continue to monitor BMP. Sodium improving from 125 on admission up to 130. (5) Failure to thrive in adult ICD Code: R62.7 - Adult failure to thrive Plan: Patient states has lost weight. BMI 17.4. I will consult dietitian. (6) Generalized weakness ICD Code: R53.1 - Weakness Plan: PT consulted. Recommends PT at rehab. Patient states he would not like to go to rehab. Will try to arrange C if patient still refuses to be discharged to rehab upon discharge. (7) Hyperlipidemia ICD Code: E78.5 - Hyperlipidemia, unspecified Plan: Continue statin (8) Severe protein-calorie malnutrition ICD Code: E43 - Unspecified severe protein-calorie malnutrition Status: Acute Plan: Consult dietitian for calorie count and recommendations to improve caloric intake. Appreciate dietary recommendations. Pt is at high nutrition risk r/t FTT and recent wt loss w/low BMI 17.4. MDC for Calorie Count started today 09/24/17 through 09/27/17 w/Nutrition Recs to Follow 09/27/17. Send [employer] tid to offer 220 kcal and 10g Protein per serving. [place] pt's food preferences. Start the patient on Megace in a.m. DVT prophylaxis: SCDs. Discharge Planning Continue to observe the medical floor. Problem Qualifiers (1) DM (diabetes mellitus): Qualified Codes: E11.42 - Type 2 diabetes mellitus with diabetic polyneuropathy (2) Hyperlipidemia: Qualified Codes: E78.5 - Hyperlipidemia, unspecified Jon Torres MD Sep 25, 2017 19:20
[2017-09-25 20:56] VITALS: BP 139/67; PULSE 100; RESP 18; TEMP 98.8; O2SAT 97
[2017-09-25 23:22] VITALS: BP 101/51; PULSE 97; RESP 18; TEMP 99.2; O2SAT 98
[2017-09-26 04:38] VITALS: BP 131/62; PULSE 91; RESP 18; TEMP 99.5; O2SAT 99
[2017-09-26] MEDS: SODIUM CHLOR 0.9% 1000 ML INJ 1,000 ML IV SCH ×2 (05:25→18:55)
[2017-09-26 08:00] VITALS: BP 113/57; PULSE 93; RESP 21; TEMP 98.7; O2SAT 99
[2017-09-26] MEDS: SODIUM CHLORIDE 0.9% FLUSH 10 ML FLUSH IV FLUSH SCH ×2 (09:00→20:20)
[2017-09-26] MEDS: FOLIC ACID 1 MG TAB PO SCH (09:35)
[2017-09-26] MEDS: FERROUS SULFATE 325 MG (65 MG ELEMENTAL IRON) TAB PO SCH (09:36)
[2017-09-26] MEDS: LACTOBACILLUS ACIDOPHILUS TAB PO SCH (09:36)
[2017-09-26] MEDS: GABAPENTIN 300 MG CAP PO SCH (09:36)
[2017-09-26] MEDS: PRAVASTATIN SOD 40 MG TAB PO SCH (09:36)
[2017-09-26] MEDS: INSULIN ASPART SUPPLEMENTAL SCALE SQ SCH ×4 (09:36→20:17)
[2017-09-26] MEDS: ACETAMINOPHEN 325 MG TAB PO PRN (09:43)
[2017-09-26 11:56] LABS: HEMATOCRIT 24.6 % (39.0-51.0); HEMOGLOBIN 8.1 GM/DL (13.0-17.0); MEAN CELL VOLUME 93.1 FL (80.0-100.0); MEAN CORPUSCULAR HEMOGLOBIN 30.7 PG (27.0-34.0); MEAN PLATELET VOLUME 6.8 FL (7.0-11.0); PLATELET COUNT 537 TH/MM3 (150-450); RED BLOOD COUNT 2.64 MIL/MM3 (4.50-5.90); RED CELL DISTRIBUTION WIDTH 18.3 % (11.6-17.2); WHITE BLOOD COUNT 8.8 TH/MM3 (4.0-11.0)
[2017-09-26 12:00] VITALS: BP 87/51; PULSE 79; RESP 20; TEMP 98; O2SAT 99
[2017-09-26 12:06] LABS: BICARBONATE 27.1 MEQ/L (21.0-32.0); CREATININE 0.54 MG/DL (0.60-1.30); PHOSPHORUS 1.8 MG/DL (2.5-4.9)
--- NOTE | 2017-09-26 12:38 | HHI.DCPOC ---
Discharge Care Plan Diagnosis: (1) Failure to thrive in adult (2) Severe protein-calorie malnutrition (3) Hyperlipidemia (4) Generalized weakness (5) Self-care deficit in patient living alone (6) DM (diabetes mellitus) (7) Hyponatremia (8) Dehydration (9) Hypomagnesemia (10) Hypokalemia Goals to Promote Your Health * To prevent worsening of your condition and complications * To maintain your health at the optimal level Directions to Meet Your Goals Take your medications as prescribed Follow your dietary instruction Follow activity as directed Keep your appointments as scheduled Take your immunizations and boosters as scheduled If your symptoms worsen call your PCP, if no PCP go to Urgent Care Center or Emergency Room Smoking is Dangerous to Your Health. Avoid second hand smoke Call the 24-hour hour crisis hotline for domestic abuse at Jon Torres MD Sep 26, 2017 12:38
[2017-09-26] MEDS ORDERED: POTASSIUM CHLORIDE 10 MEQ CONTROLLED RELEASE TAB PO ONE (12:45)
[2017-09-26] MEDS: MEGESTROL ACETATE SUSP 400 MG/10 ML CUP PO SCH (13:39)
[2017-09-26] MEDS: MAGNESIUM SULFATE 1 GM PREMIX 100 ML IV SCH ×2 (13:40→15:41)
[2017-09-26] MEDS: POTASSIUM PHOSPHATE/SODIUM PHOSPHATE 250 MG TAB PO SCH ×2 (14:54→18:54)
[2017-09-26 16:00] VITALS: BP 99/54; PULSE 79; RESP 20; TEMP 98.2; O2SAT 100
--- NOTE | 2017-09-26 16:40 | HHI.PR ---
Subjective Remarks Patient states feeling better. States is eating better. Denies cp/sob. Objective Vitals Vital Signs Date Time Temp Pulse Resp B/P (MAP) Pulse Ox O2 Delivery O2 Flow Rate FiO2 09/26/17 16:00 98.2 79 20 99/54 (69) 100 09/26/17 12:00 98.0 79 20 87/51 (63) 99 09/26/17 08:00 98.7 93 21 113/57 (75) 99 09/26/17 04:38 99.5 91 18 131/62 (85) 99 09/25/17 23:22 99.2 97 18 101/51 (68) 98 09/25/17 20:56 98.8 100 18 139/67 (91) 97 09/25/17 17:15 99.7 90 18 115/56 (75) 99 I/O 09/25/17 09/25/17 09/25/17 09/26/17 09/26/17 09/26/17 07:00 15:00 23:00 07:00 15:00 23:00 Output Total 205 ml Balance -205 ml Output Urine Total 205 ml # Bowel Movements 1 Result Diagram: 09/26/17 1101 09/26/17 1101 Imaging Last Impressions Chest X-Ray 09/23/17 192 Signed Impressions: Service Date/Time: Saturday, September 23, 2017 19:35 - CONCLUSION: 1. No active disease. Nicholas Jacobsen MD Objective Remarks GENERAL: Cachectic, not in acute distress. SKIN: No rashes, ecchymoses or lesions. Cool and dry. HEAD: Atraumatic. Normocephalic. EYES: Pupils equal round and reactive. Extraocular motions intact. ENT: Nose without bleeding, purulent drainage or septal hematoma.Airway patent. CARDIOVASCULAR: Regular rate and rhythm without murmurs, gallops, or rubs. RESPIRATORY: Clear to auscultation. Breath sounds equal bilaterally. No wheezes , rales, or rhonchi. GASTROINTESTINAL: Abdomen soft, non-tender, nondistended. MUSCULOSKELETAL: Extremities without clubbing, cyanosis, or edema. No joint tenderness, effusion, or edema noted. No calf tenderness. NEUROLOGICAL: Awake and alert. Motor and sensory grossly within normal limits. Normal speech. Medications and IVs Current Medications Medications (Trade) Dose Ordered Sig/Rodrigo Route Start Time Stop Time Status Last Admin Sodium Chloride 1,000 ml @ 75 mls/hr [id number] IV 09/23/17 23:45 09/26/17 05:25 (NS Flush) 2 ml UNSCH PRN IV FLUSH 09/23/17 23:45 (NS Flush) 2 ml BID IV FLUSH 09/24/17 09:00 09/24/17 21:38 (Tylenol) 650 mg Q4H PRN PO 09/23/17 23:45 09/26/17 09:43 (Zofran Inj) 4 mg Q6H PRN IVP 09/23/17 23:45 (Narcan Inj) 0.4 mg UNSCH PRN IV PUSH 09/23/17 23:45 (D50w (Vial) Inj) 50 ml UNSCH PRN IV PUSH 09/23/17 23:45 (Glucagon Inj) 1 mg UNSCH PRN OTHER 09/23/17 23:45 (NovoLOG SUPPLEMENTAL SCALE) 1 ACHS SLIDING SCALE SQ 09/24/17 08:00 09/26/17 13:34 (Ferrous Sulfate) 325 mg DAILY PO 09/25/17 09:00 09/26/17 09:36 (Folate) 1 mg DAILY PO 09/25/17 09:00 09/26/17 09:35 (Neurontin) 300 mg DAILY PO 09/25/17 09:00 09/26/17 09:36 (Pravachol) 40 mg DAILY PO 09/25/17 09:00 09/26/17 09:36 (Januvia) 100 mg DAILY PO 09/25/17 09:00 09/26/17 09:36 (Lactinex) 1 tab DAILY PO 09/25/17 09:00 09/26/17 09:36 (Megace Liq) 400 mg DAILY PO 09/26/17 10:30 09/26/17 13:39 (K-Phos Neutral) 250 mg Q6HR PO 09/26/17 12:45 09/26/17 14:54 (Glucotrol) 10 mg BIDAC PO 09/26/17 16:00 (Glucophage) 1,500 mg AC BREAKFAST PO 09/27/17 07:00 A/P Problem List: (1) Self-care deficit in patient living alone ICD Code: R46.89 - Other symptoms and signs involving appearance and behavior (2) DM (diabetes mellitus) ICD Code: E11.9 - Type 2 diabetes mellitus without complications Status: Chronic (3) Dehydration ICD Code: E86.0 - Dehydration (4) Hyponatremia ICD Code: E87.1 - Hypo-osmolality and hyponatremia (5) Failure to thrive in adult ICD Code: R62.7 - Adult failure to thrive (6) Generalized weakness ICD Code: R53.1 - Weakness (7) Hyperlipidemia ICD Code: E78.5 - Hyperlipidemia, unspecified (8) Severe protein-calorie malnutrition ICD Code: E43 - Unspecified severe protein-calorie malnutrition Status: Acute Assessment and Plan (1) Self-care deficit in patient living alone ICD Code: R46.89 - Other symptoms and signs involving appearance and behavior Plan: Case management consult for placement. Patient lives alone and is unable to care for self. PT eval and treat -recommends PT at rehab. (2) DM (diabetes mellitus) ICD Code: E11.9 - Type 2 diabetes mellitus without complications Status: Chronic Plan: Last hemoglobin A1c obtained on 08/26/17 was 4.8. Diabetes is controlled. Continue Januvia, hold other hypoglycemic medications and placed on SSI with insulin NovoLog. Sugar seems to be stable. Continue gabapentin. (3) Dehydration ICD Code: E86.0 - Dehydration Plan: Continue normal saline. (4) Hyponatremia ICD Code: E87.1 - Hypo-osmolality and hyponatremia Plan: Likely due to hypovolemic hyponatremia. Continue IV normal saline and continue to monitor BMP. Sodium improving from 125 on admission up to 130. (5) Failure to thrive in adult ICD Code: R62.7 - Adult failure to thrive Plan: Patient states has lost weight. BMI 17.4. I will consult dietitian. (6) Generalized weakness ICD Code: R53.1 - Weakness Plan: PT consulted. Recommends PT at rehab. Patient states he would not like to go to rehab. Will try to arrange C if patient still refuses to be discharged to rehab upon discharge. (7) Hyperlipidemia ICD Code: E78.5 - Hyperlipidemia, unspecified Plan: Continue statin (8) Severe protein-calorie malnutrition ICD Code: E43 - Unspecified severe protein-calorie malnutrition Status: Acute Plan: Consult dietitian for calorie count and recommendations to improve caloric intake. Appreciate dietary recommendations. Pt is at high nutrition risk r/t FTT and recent wt loss w/low BMI 17.4. MDC for Calorie Count started today 09/24/17 through 09/27/17 w/Nutrition Recs to Follow 09/27/17. Send [employer] tid to offer 220 kcal and 10g Protein per serving. [place] pt's food preferences. Start the patient on Megace in a.m. DVT prophylaxis: SCDs. Discharge Planning Continue to observe. Pending calorie count recommendations. Poss Dc in am. Patient refuses to be discharged to rehab, wishes to be discharged home. Will set up C. Patient has 07/01 care at home. 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
[2017-09-26 18:36] LABS: BICARBONATE 23.4 MEQ/L (21.0-32.0); CALCIUM 7.3 MG/DL (8.5-10.1); CREATININE 0.45 MG/DL (0.60-1.30)
[2017-09-26] MEDS: glipiZIDE 10 MG TAB PO SCH (18:54)
[2017-09-26 19:06] LABS: CALCIUM-PROTEIN CORRECTED 7.7 MG/DL (8.5-10.1); TOTAL PROTEIN 6.3 GM/DL (6.4-8.2)
[2017-09-26 21:09] VITALS: BP 113/55; PULSE 86; RESP 18; TEMP 100.3; O2SAT 100
[2017-09-26 23:39] VITALS: BP 124/61; PULSE 91; RESP 18; TEMP 99.2; O2SAT 98
[2017-09-27] MEDS: POTASSIUM PHOSPHATE/SODIUM PHOSPHATE 250 MG TAB PO SCH ×4 (01:18→17:27)
[2017-09-27 04:57] VITALS: BP 134/62; PULSE 86; RESP 18; TEMP 98.4; O2SAT 98
[2017-09-27] MEDS: SODIUM CHLOR 0.9% 1000 ML INJ 1,000 ML IV SCH (06:21)
[2017-09-27] MEDS: ACETAMINOPHEN 325 MG TAB PO PRN (06:32)
[2017-09-27] MEDS: glipiZIDE 10 MG TAB PO SCH ×2 (07:00→17:27)
[2017-09-27] MEDS: metFORMIN HCL 500 MG TAB PO SCH (07:00)
[2017-09-27 07:53] VITALS: BP 142/65; PULSE 82; RESP 18; TEMP 97.7; O2SAT 98
[2017-09-27] MEDS: INSULIN ASPART SUPPLEMENTAL SCALE SQ SCH ×3 (08:00→18:26)
[2017-09-27] MEDS: SODIUM CHLORIDE 0.9% FLUSH 10 ML FLUSH IV FLUSH SCH (08:57)
[2017-09-27] MEDS: MEGESTROL ACETATE SUSP 400 MG/10 ML CUP PO SCH (10:29)
[2017-09-27] MEDS: GABAPENTIN 300 MG CAP PO SCH (10:29)
[2017-09-27] MEDS: FERROUS SULFATE 325 MG (65 MG ELEMENTAL IRON) TAB PO SCH (10:29)
[2017-09-27] MEDS: PRAVASTATIN SOD 40 MG TAB PO SCH (10:30)
[2017-09-27] MEDS: LACTOBACILLUS ACIDOPHILUS TAB PO SCH (10:30)
[2017-09-27] MEDS: FOLIC ACID 1 MG TAB PO SCH (10:30)
[2017-09-27 10:47] VITALS: BP 108/49; PULSE 88; RESP 16; TEMP 97.9; O2SAT 100
[2017-09-27 15:14] VITALS: BP 108/56; PULSE 86; RESP 20; TEMP 98.6; O2SAT 99
[2017-09-27] MEDS ORDERED: CALCIUM CHLORIDE INJ 2 GM in SODIUM CHLORIDE 0.9% INJ 100 ML IV ONE (16:00)
--- NOTE | 2017-09-27 16:52 | HHI.FF ---
Face to Face Verification Diagnosis: (1) Self-care deficit in patient living alone (2) Generalized weakness (3) Hyperlipidemia (4) Failure to thrive in adult (5) Severe protein-calorie malnutrition (6) Hypokalemia (7) Hypomagnesemia Physical Therapy Order: Improve ambulation, Strength and gait training Home Health Nursing Order: Nursing assessment with vital signs I have seen patient Rufus Escobedo on 09/27/17. My clinical findings support the need for the requested home health care services because: Deconditioned w/ increased weakness Limited ability to care for self Need for psychosocial assistance High risk of falls I certify that my clinical findings support that this patient is homebound because: Unsteady gait/balance Unsafe to leave home unassisted Unable to use public transportation Jon Torres MD Sep 27, 2017 16:52
[2017-09-27] MEDS ORDERED: KPHOS250 PO (16:54)
[2017-09-27] MEDS ORDERED: Megestrol Liq PO (16:54)
--- NOTE | 2017-09-27 17:10 | HHI.DS ---
Discharge Summary Admission Date Sep 23, 2017 at 23:46 Discharge Date: Sep 27, 2017 Admitting Diagnosis hyponatremia, dehydration (1) Self-care deficit in patient living alone ICD Code: R46.89 - Other symptoms and signs involving appearance and behavior Diagnosis: Principal Status: Acute (2) DM (diabetes mellitus) ICD Code: E11.9 - Type 2 diabetes mellitus without complications Status: Chronic (3) Dehydration ICD Code: E86.0 - Dehydration Diagnosis: Principal Status: Resolved (4) Hyponatremia ICD Code: E87.1 - Hypo-osmolality and hyponatremia Diagnosis: Principal Status: Resolved (5) Failure to thrive in adult ICD Code: R62.7 - Adult failure to thrive Diagnosis: Principal Status: Acute (6) Generalized weakness ICD Code: R53.1 - Weakness Diagnosis: Principal Status: Acute (7) Hyperlipidemia ICD Code: E78.5 - Hyperlipidemia, unspecified Diagnosis: Principal Status: Chronic (8) Severe protein-calorie malnutrition ICD Code: E43 - Unspecified severe protein-calorie malnutrition Diagnosis: Principal Status: Acute Procedures none Brief History - From Admission 86-year-old male with a history of hypertension and diabetes was brought to the ED after his neighbor had concerns for unable to care for himself. Patient was sent to a rehab facility a few weeks ago and just discharged a few days ago due to insurance issues. Patient was found at home by EMS covered in feces. Upon examination patient states he lives alone does not feel that he can care for himself, he states he is weak. He denies any chest pain, shortness of breath, fever or chills. He does state that he has not been eating or drinking because he is not in his house. CBC/BMP: 09/26/17 1101 09/26/17 1754 Significant Findings Laboratory Tests Test 09/25/17 08:40 09/26/17 11:01 09/26/17 17:54 Red Blood Count 2.38 MIL/MM3 (4.50-5.90) 2.64 MIL/MM3 (4.50-5.90) Hemoglobin 7.4 GM/DL (13.0-17.0) 8.1 GM/DL (13.0-17.0) Hematocrit 22.2 % (39.0-51.0) 24.6 % (39.0-51.0) Red Cell Distribution Width 18.4 % (11.6-17.2) 18.3 % (11.6-17.2) Platelet Count 507 TH/MM3 (150-450) 537 TH/MM3 (150-450) Mean Platelet Volume 6.9 FL (7.0-11.0) 6.8 FL (7.0-11.0) Neutrophils (%) (Auto) 72.1 % (16.0-70.0) Monocytes (%) (Auto) 11.8 % (0.0-8.0) Monocytes # (Auto) 1.0 TH/MM3 (0-0.9) Neutrophils % (Manual) 75 % (16-70) Band Neutrophils % 11 % (0-6) Lymphocytes % 7 % (9-44) Myelocytes 1 % (0-0) Platelet Estimate HIGH (NORMAL) Ovalocytes 1+ (NORMAL) Creatinine 0.47 MG/DL (0.60-1.30) 0.54 MG/DL (0.60-1.30) 0.45 MG/DL (0.60-1.30) Random Glucose 124 MG/DL (74-106) 202 MG/DL (74-106) 211 MG/DL (74-106) Albumin 2.0 GM/DL (3.4-5.0) Calcium Level 8.2 MG/DL (8.5-10.1) 8.0 MG/DL (8.5-10.1) 7.3 MG/DL (8.5-10.1) Phosphorus Level 1.8 MG/DL (2.5-4.9) 1.8 MG/DL (2.5-4.9) Magnesium Level 1.2 MG/DL (1.5-2.5) 1.0 MG/DL (1.5-2.5) Sodium Level 134 MEQ/L (136-145) 133 MEQ/L (136-145) 131 MEQ/L (136-145) Potassium Level 3.1 MEQ/L (3.5-5.1) Total Protein 6.3 GM/DL (6.4-8.2) Protein Corrected Calcium 7.7 MG/DL (8.5-10.1) Imaging Last Impressions Chest X-Ray 09/23/171920 Signed Impressions: Service Date/Time: Saturday, September 23, 2017 19:35 - CONCLUSION: 1. No active disease. Nicholas Jacobsen MD PE at Discharge GENERAL: Cachectic, not in acute distress. SKIN: No rashes, ecchymoses or lesions. Cool and dry. HEAD: Atraumatic. Normocephalic. EYES: Pupils equal round and reactive. Extraocular motions intact. ENT: Nose without bleeding, purulent drainage or septal hematoma.Airway patent. CARDIOVASCULAR: Regular rate and rhythm without murmurs, gallops, or rubs. RESPIRATORY: Clear to auscultation. Breath sounds equal bilaterally. No wheezes , rales, or rhonchi. GASTROINTESTINAL: Abdomen soft, non-tender, nondistended. MUSCULOSKELETAL: Extremities without clubbing, cyanosis, or edema. No joint tenderness, effusion, or edema noted. No calf tenderness. NEUROLOGICAL: Awake and alert. Motor and sensory grossly within normal limits. Normal speech. Pt update on day of discharge Denies cp/sob. Afebrile. Appetite is improving. Hospital Course (1) Self-care deficit in patient living alone Case management consulted for placement. Patient lives alone and is unable to care for self. PT recommended placement at custodial facility, however patient refused adamantly. Patient hired 24/7 hour care at home. Patient discharged home with home health care. Patient to be supervised 24/7. (2) DM (diabetes mellitus) Diabetes seems to be controlled. Last hemoglobin A1c obtained on 08/26/17 was 4.8. Januvia was continued, other hypoglycemic medications were held. (4) Hyponatremia Likely due to hypovolemic hyponatremia. Continue IV normal saline and continue to monitor BMP. Sodium improving from 125 on admission up to 130. (5) Failure to thrive in adult Patient with BMI of 17.4. Dietitian consulted. The patient recommended the patient was at high nutrition risk r/t FTT and recent weight loss with low BMI of 17.4. Calorie count was ordered and obtained and the patient was started on Megace as an appetite stimulant. At the end of the calorie count it was determined that the patient had adequate p.o. intake meeting 90% of his needs. Patient was started on Glucerna shakes 3 times daily while in the hospital and was recommended to continue these upon discharge. Patient also was discharged on Megace. (6) Generalized weakness PT consulted. Recommends PT at rehab. Patient states he would not like to go to rehab. HHC will be arranged prior to discharge. (7) Hyperlipidemia Statin continued. (8) Severe protein-calorie malnutrition Dietitian consulted. Recommendations as above. Pt Condition on Discharge: Stable Discharge Disposition: Disch w/ Home Health Serv Discharge Time: > 30 minutes Discharge Instructions DIET: Follow Instructions for: Diabetic Diet Activities you can perform: See Additionl Instruction Activities to Avoid: Prolonged Standing, Strenuous Activity Other Activity Instructions: as per Pt OOB with assistance Follow up Referrals: PCP Follow-up - 1 Week New Medications: Potassium Phosphate-Sodium Phosphate (K-Phos Neutral) 155-852-130 Mg Tab 250 MG PO Q6HR for low phosphorus, #10 TAB [Megestrol Liq] () 400 MG/10 ML SUSP 400 MG PO DAILY for appetite stimulant, #1 BOTTLE Continued Medications: Ferrous Sulfate (Ferrous Sulfate) 325 Mg (65 Mg Iron) Tablet 325 MG PO DAILY for Nutritional Supplement, #30 TAB 0 Refills Folic Acid (Folic Acid) 1 Mg Tablet 1 MG PO DAILY for anemia, #30 MG Gabapentin (Gabapentin) 300 Mg Cap 300 MG PO DAILY, #60 CAP 0 Refills Glipizide (Glipizide) 10 Mg Tab 10 MG PO BIDAC for Blood Sugar Management, #60 TAB 0 Refills Take 30 minutes before a meal Hydrocodone-Acetaminophen ([place]) 5 Mg-325 Mg Tab 1 TAB PO Q6H PRN for PAIN, #15 TAB 0 Refills Lactobacillus Acidophilus (Lactinex) 1 Chew 1 TAB CHEW DAILY for Nutritional Supplement, #93 TAB 0 Refills Metformin (Metformin) 1,000 Mg Tab 1500 MG PO AC BREAKFAST for Blood Sugar Management, #60 TAB 0 Refills Pravastatin (Pravastatin) 40 Mg Tab 40 MG PO DAILY for Cholesterol Management, #30 TAB 0 Refills Sitagliptin (Januvia) 100 Mg Tab 100 MG PO DAILY for Blood Sugar Management, #30 TAB 0 Refills Jon Torres MD Sep 27, 2017 17:10
[2017-09-28] VITALS (21 sets, daily range): BP systolic 83–136; BP diastolic 53–85; PULSE 89–158; RESP 16–21; TEMP 97.9–98.7; O2SAT 94–100
[2017-09-28] MEDS ORDERED: SODIUM CHLORID 0.9% 500 ML INJ 500 ML IV ONE ×2 (03:45→10:30)
[2017-09-28] MEDS ORDERED: METOPROLOL TARTRATE 25 MG TAB PO ONE ×2 (06:30→10:15)
[2017-09-28] MEDS: glipiZIDE 10 MG TAB PO SCH ×2 (07:50→19:31)
[2017-09-28] MEDS: metFORMIN HCL 500 MG TAB PO SCH (07:50)
[2017-09-28] MEDS: INSULIN ASPART SUPPLEMENTAL SCALE SQ SCH ×4 (08:00→21:00)
[2017-09-28] MEDS: SODIUM CHLORIDE 0.9% FLUSH 10 ML FLUSH IV FLUSH SCH ×2 (09:00→20:50)
[2017-09-28] MEDS: MEGESTROL ACETATE SUSP 400 MG/10 ML CUP PO SCH (09:00)
[2017-09-28] MEDS: METOPROLOL TARTRATE 5 MG/5 ML VIAL IV PUSH PRN (09:56)
--- NOTE | 2017-09-28 10:00 | HHI.PR ---
Subjective Remarks Notified by RN patient HR in the 150's. EKG showed Aflutter. Appears to be on SVT. Stat labs and EKG ordered. GLORIA RN to push IV metoprolol. Patient seen and examined with Dr. Cortez. Patient states he is feeling lousy. Denies Chest Pain, palpitations, headaches , dizziness. Denies fevers, chills, nausea, vomiting, diarrhea. Denies dysuria. Denies any hematochezia, hematemesis. Objective Vitals Vital Signs Date Time Temp Pulse Resp B/P (MAP) Pulse Ox O2 Delivery O2 Flow Rate FiO2 09/28/17 09:54 153 102/69 (80) 09/28/17 09:26 98.1 156 16 107/70 (82) 97 09/28/17 06:25 152 09/28/17 03:35 98.2 158 18 136/85 (102) 97 09/28/17 00:15 98.2 89 18 129/78 (95) 98 09/27/17 15:14 98.6 86 20 108/56 (73) 99 09/27/17 10:47 97.9 88 16 108/49 (68) 100 I/O 09/27/17 09/27/17 09/27/17 09/28/17 09/28/17 09/28/17 07:00 15:00 23:00 07:00 15:00 23:00 Intake Total 120 ml Output Total 450 ml 250 ml Balance -450 ml 120 ml -250 ml IV Total 120 ml Output Urine Total 450 ml 250 ml Result Diagram: 09/26/17 1101 09/26/17 1754 Imaging Last Impressions Chest X-Ray 09/23/171 Signed Impressions: Service Date/Time: Saturday, September 23, 2017 19:35 - CONCLUSION: 1. No active disease. Nicholas Jacobsen MD Objective Remarks GENERAL: This is a thin appearing, well-developed patient, in no apparent distress. SKIN: Warm and dry. HEENT: Normocephalic. Pupils equal round and reactive. Nose without bleeding. Airway patent. NECK: Trachea midline. No JVD. Supple. CARDIOVASCULAR: Tachycardia without murmurs, gallops, or rubs. RESPIRATORY: Clear to auscultation. Breath sounds equal bilaterally. No wheezes , rales, or rhonchi. GASTROINTESTINAL: Abdomen soft, non-tender, nondistended. Bowel Sounds normoactive x4. MUSCULOSKELETAL: Extremities without clubbing, cyanosis, or edema. NEUROLOGICAL: Awake and alert. Oriented to time, place, person. No focal neuro deficit. Moves all extremities. Normal speech. Procedures none A/P Problem List: (1) Self-care deficit in patient living alone ICD Code: R46.89 - Other symptoms and signs involving appearance and behavior Status: Acute (2) DM (diabetes mellitus) ICD Code: E11.9 - Type 2 diabetes mellitus without complications Status: Chronic (3) Dehydration ICD Code: E86.0 - Dehydration Status: Resolved (4) Hyponatremia ICD Code: E87.1 - Hypo-osmolality and hyponatremia Status: Resolved (5) Failure to thrive in adult ICD Code: R62.7 - Adult failure to thrive Status: Acute (6) Generalized weakness ICD Code: R53.1 - Weakness Status: Acute (7) Hyperlipidemia ICD Code: E78.5 - Hyperlipidemia, unspecified Status: Chronic (8) Severe protein-calorie malnutrition ICD Code: E43 - Unspecified severe protein-calorie malnutrition Status: Acute Assessment and Plan Patient is a 86-year-old male with a history of hypertension and diabetes was brought to the ED after his neighbor had concerns for unable to care for himself. SVT versus a flutter -Cardiology consult for further evaluation -Check labs, including troponin and CK, check TSH -Check serial EKG, first EKG showed atrial flutter, tachycardia HR 154. EKG reviewed appears to be an SVT -Metoprolol 5 mg IV given 1. Metoprolol 25 mg p.o. given, Cardizem 30 mg given -Stat H&H came back hemoglobin is 6.3. This is probably contributing to the SVT. IV fluids provided 500 mL's bolus. Start NS at 125 mL's an hour while waiting for blood transfusion -2 units blood transfusion ordered -Hold off on Cardizem p.o. 4 times daily if patient's heart rate returns to sinus rhythm. -Transfer to medical floor, stepdown or CIC Anemia, iron deficiency Questionable GI bleed -Gastroenterology consult -H&H came back 6.3/18.3 -2 units blood transfusion ordered. -Therefore source of bleeding. Patient previously had Hemoccult negative. Denies hematochezia, hematemesis, hematuria -IV iron transfusion 1 -Check Iron, ferritin. Patient on iron medication at home, restarted Self-care deficit -Consult case management for placement, as patient lives alone and unable to care for self -PT eval and treat Severe protein calorie malnutrition Mild dehydration -IVF for hydration provided -Pt is at high nutrition risk r/t FTT and recent wt loss w/low BMI 17.4. MDC for Calorie Count started today 09/24/17 through 09/27/17 w/Nutrition Recs to Follow 09/27/17. Send [employer] tid to offer 220 kcal and 10g Protein per serving. [place] pt's food preferences. Start the patient on Megace in a.m. Hyponatremia, sodium 125, due to dehydration -Sodium dropped down to 124. Continue IV fluids as above. Diabetes, chronic -Accu-Cheks with sliding scale insulin -Monitor insulin. -Check hemoglobin A1c DVT prophylaxis: SCDs Discussed with patient, nursing Discharge Planning Hold off discharge today. Attending Statement patient was seen and examined today. he went into [facility] today. he was in no acute distress with no reported chest pain or sob at the time of my evaluation. HR in 150's- H/H trend noted. will transfer to CIC ( stat) and consult cardiology. echo ordered. will transfuse with PRBC and consult GI. rest of assessment and plan as noted above. d/w the RN at the bedside. Problem Qualifiers (1) DM (diabetes mellitus): Qualified Codes: E11.42 - Type 2 diabetes mellitus with diabetic polyneuropathy (2) Hyperlipidemia: Qualified Codes: E78.5 - Hyperlipidemia, unspecified Karly Frost Sep 28, 2017 10:00 Chito Barksdale MD Sep 28, 2017 10:43
[2017-09-28 10:14] LABS: MEAN CELL VOLUME 92.8 FL (80.0-100.0); MEAN CORPUSCULAR HEMOGLOBIN 32.1 PG (27.0-34.0); MEAN CORPUSCULAR HGB CONC 34.6 % (32.0-36.0); PLATELET COUNT 448 TH/MM3 (150-450); RED BLOOD COUNT 1.97 MIL/MM3 (4.50-5.90); RED CELL DISTRIBUTION WIDTH 18.2 % (11.6-17.2); WHITE BLOOD COUNT 9.7 TH/MM3 (4.0-11.0)
[2017-09-28 10:18] LABS: HEMATOCRIT 18.3 % (39.0-51.0); HEMOGLOBIN 6.3 GM/DL (13.0-17.0)
[2017-09-28] MEDS ORDERED: SODIUM CHLOR 0.9% 250 ML INJ 250 ML IV ONE (10:30)
[2017-09-28] MEDS ORDERED: FUROSEMIDE 20 MG/2 ML VIAL IV PUSH ONE (10:30)
[2017-09-28] MEDS: SODIUM CHLOR 0.9% 1000 ML INJ 1,000 ML IV SCH ×3 (10:41→20:50)
[2017-09-28] MEDS: LACTOBACILLUS ACIDOPHILUS TAB PO SCH (10:45)
[2017-09-28] MEDS: GABAPENTIN 300 MG CAP PO SCH (10:45)
[2017-09-28] MEDS: FOLIC ACID 1 MG TAB PO SCH (10:45)
[2017-09-28] MEDS: FERROUS SULFATE 325 MG (65 MG ELEMENTAL IRON) TAB PO SCH (10:45)
[2017-09-28] MEDS: PRAVASTATIN SOD 40 MG TAB PO SCH (10:46)
[2017-09-28 10:54] LABS: BICARBONATE 21.8 MEQ/L (21.0-32.0); CALCIUM 8.3 MG/DL (8.5-10.1); CREATININE 0.39 MG/DL (0.60-1.30)
[2017-09-28 11:20] LABS: TROPONIN I 0.06 NG/ML (0.02-0.05)
[2017-09-28] MEDS ORDERED: AMIODARONE INJ 150 MG in DEXTROSE 5% IN WATER 100ML INJ 100 ML IV ONE ×2 (11:29)
[2017-09-28] MEDS ORDERED: AMIODARONE INJ 450 MG in DEXTROSE 5% IN WATE(EXCEL) INJ 241 ML IV PRN ×2 (11:39)
[2017-09-28] MEDS ORDERED: DILTIAZEM HCL 30 MG TAB PO SCH (12:00)
--- NOTE | 2017-09-28 12:17 | MB ---
cc: Debbie Parker MD DATE: 09/28/2017 REASON FOR CONSULTATION: SVT. HISTORY OF PRESENT ILLNESS: Mr. Escobedo is an 86-year-old man who presented with hyponatremia and dehydration. He has a history of diabetes and failure to thrive. The patient was about to be discharged and went into rapid SVT. He does remain in this SVT at around 150 beats a minute. He is essentially asymptomatic at this point. The patient has somewhat of a poor historian. PAST MEDICAL HISTORY: Significant for hypertension, diabetes and anemia. CURRENT MEDICATIONS: Per the record. ALLERGIES: NO KNOWN DRUG ALLERGIES. PHYSICAL EXAMINATION: VITAL SIGNS: Heart rate 153, respirations 18, blood pressure 105/69. GENERAL: He is an emaciated man. He is in no apparent distress. NECK: Free from JVD. LUNGS: Clear to auscultation. CARDIOVASCULAR: He is quite tachycardic. ABDOMEN: Soft. EXTREMITIES: Free from edema. IMAGING STUDIES: Chest x-ray is negative for any acute process. LABORATORY VALUES: Significant for a hemoglobin of 6.3. His sodium is 124 and creatinine 0.39. EKG shows SVT with an IVCD at 150 beats per minute. IMPRESSION AND RECOMMENDATIONS: 1. Supraventricular tachycardia -- The patient has fairly significant hyponatremia and is profoundly anemic. These may have been exacerbating factors in this supraventricular. The tracings are not definitive for atrial flutter, but certainly suggestive of this. He received a dose of beta rina with little relief. At this point, I am going to add amiodarone as his blood pressure is marginal. He is not a candidate for anticoagulation secondary to his anemia. 2. Anemia -- This is per the primary team and again may be an exacerbating factor to his supraventricular tachycardia, though the sudden abrupt change in the heart rate is suggestive of separate processes. 3. Failure to thrive -- This is per the primary team as well. MD RICHARD Valdze/MICHAEL , 11:28 AM , 12:15 PM
--- NOTE | 2017-09-28 12:25 | PD.CONS ---
HPI History of Present Illness This is a 86 year old male known to us from previous admission who was brought by a neighbor for concern over pts ability to care for himself. Pt was about to be discharged when he developed a flutter and halicat was called. His hgb was then noted to be 6.3. No obvious bleeding. Pt denies blood in stool, tarry stool, or abd pain. He was evaluated by our service last month for anemia and loose stool. He had EGD & colonoscopy by Dr Juárez 08/30/17 with finding 3 gastric ulcers, 1 large nonbleeding duodenal ulcer, esophagitis, hiatal hernia; diverticulosis, circumferential patch colitis with friable tissue oozing blood, path chronic active bolitis with cryptitis. He was neg for c diff. (Hannah Olmedo) PFSH Past Medical History Hypertension Diabetes Past Surgical History Right hip surgery (Hannah Olmedo) Coded Allergies: No Known Allergies (Unverified Allergy, Unknown, 09/23/17) Family History Patient denies any family history no heart disease or cancer. Social History Patient denies any tobacco, alcohol or illicit drug use (Hannah Olmedo) Review of Systems Constitutional: COMPLAINS OF: Fatigue, DENIES: Fever Endocrine: DENIES: Polydipsia Eyes: DENIES: Blurred vision Ears, nose, mouth, throat: DENIES: Hearing loss Respiratory: DENIES: Cough Cardiovascular: DENIES: Chest pain Gastrointestinal: DENIES: Abdominal pain, Black stools, Bloody stools Genitourinary: DENIES: Hematuria Musculoskeletal: DENIES: Muscle aches Hematologic/lymphatic: DENIES: Bruising Immunologic/allergic: DENIES: Eczema Neurologic: DENIES: Headache Psychiatric: DENIES: Confusion (Hannah Olmedo) GI Exam Vitals I&O Vital Signs Date Time Temp Pulse Resp B/P (MAP) Pulse Ox O2 Delivery O2 Flow Rate FiO2 09/28/17 11:46 155 16 99/64 (76) 100 09/28/17 11:28 153 16 99/65 (76) 100 09/28/17 10:53 153 18 105/69 (81) 100 09/28/17 10:35 151 18 110/73 (85) 99 09/28/17 10:21 150 18 111/72 (85) 98 09/28/17 10:15 153 16 109/71 (84) 98 09/28/17 10:05 153 104/68 (80) 09/28/17 09:54 153 102/69 (80) 09/28/17 09:26 98.1 156 16 107/70 (82) 97 09/28/17 06:25 152 09/28/17 03:35 98.2 158 18 136/85 (102) 97 09/28/17 00:15 98.2 89 18 129/78 (95) 98 09/27/17 15:14 98.6 86 20 108/56 (73) 99 I/O 09/27/17 09/27/17 09/27/17 09/28/17 09/28/17 09/28/17 07:00 15:00 23:00 07:00 15:00 23:00 Intake Total 120 ml Output Total 450 ml 250 ml Balance -450 ml 120 ml -250 ml IV Total 120 ml Output Urine Total 450 ml 250 ml Imaging Last Impressions Chest X-Ray 09/23/171920 Signed Impressions: Service Date/Time: Saturday, September 23, 2017 19:35 - CONCLUSION: 1. No active disease. Nicholas Jacobsen MD Laboratory Test 09/28/17 09:43 White Blood Count 9.7 TH/MM3 Red Blood Count 1.97 MIL/MM3 Hemoglobin 6.3 GM/DL Hematocrit 18.3 % Mean Corpuscular Volume 92.8 FL Mean Corpuscular Hemoglobin 32.1 PG Mean Corpuscular Hemoglobin Concent 34.6 % Red Cell Distribution Width 18.2 % Platelet Count 448 TH/MM3 Mean Platelet Volume 7.0 FL Blood Urea Nitrogen 10 MG/DL Creatinine 0.39 MG/DL Random Glucose 157 MG/DL Calcium Level 8.3 MG/DL Sodium Level 124 MEQ/L Potassium Level 4.0 MEQ/L Chloride Level 93 MEQ/L Carbon Dioxide Level 21.8 MEQ/L Anion Gap 9 MEQ/L Estimat Glomerular Filtration Rate 211 ML/MIN Total Creatine Kinase 38 U/L Troponin I 0.06 NG/ML Thyroid Stimulating Hormone 3rd Gen 5.050 uIU/ML Date/Time Source Procedure Growth Status 09/25/17 23:30 Stool Stool Stool Occult Blood (MISSAEL) - Final HEMOCCULT NEGATIVE Complete Physical Examination HEENT: PERRL; normocephalic; atraumatic; no jaundice. CHEST: CTA CARDIAC: tachycardic, regular rhythm ABDOMEN: Soft, nondistended, nontender; no hepatosplenomegaly; bowel sounds are present in all four quadrants. EXTREMITIES: No clubbing, cyanosis, or edema. SKIN: pale; no rash; no jaundice. EPIC BEACON ANALYST: alert (Hannah Olmedo) Assessment and Plan Plan ASSESSMENT - anemia - hgb 6.3 . his baseline is around 8-9. normocytic. no obvious bleeding, stool neg for blood but does have hx gastric ulcers, colitis. EGD & colonoscopy08/30/17 with finding 3 gastric ulcers, 1 large nonbleeding duodenal ulcer, esophagitis, hiatal hernia; diverticulosis, circumferential patch colitis with friable tissue oozing blood, path chronic active bolitis with cryptitis. He was neg for c diff. ?IBD denies bleeding at this time - SVT cardiology following PLAN - pt can eat - will need EGD, with cardiac clearance - monitor labs - transfuse as needed - supportive care - notify GI of active bleed pt seen by myself and DR Yeung and this note is on his behalf (Hannah Olmedo) Plan Patient was seen and examined, agree with above note, patient will need evaluation of his stomach to rule out peptic ulcer disease, we need cardiac clearance before we do that, continue monitoring H&H with packed RBC as needed (Abigail Yeung MD) Hannah Olmedo Sep 28, 2017 12:25 Abigail Yeung MD Sep 28, 2017 14:07
[2017-09-28] MEDS: AMIODARONE INJ 450 MG in SODIUM CHLOR 0.9% (EXCEL) INJ 241 ML IV PRN ×2 (14:23→21:21)
[2017-09-28 18:08] LABS: HEMATOCRIT 33.1 % (39.0-51.0); HEMOGLOBIN 11.4 GM/DL (13.0-17.0)
[2017-09-28 18:32] LABS: IRON (FE) 51 MCG/DL (65-175)
[2017-09-28 18:35] LABS: % SATURATION IRON PROFILE 26.8 % (20-50); FERRITIN 849 NG/ML (26-388); TOTAL IRON BINDING CAPACITY 190 MCG/DL (250-450); TROPONIN I 0.05 NG/ML (0.02-0.05)
[2017-09-28] MEDS: ACETAMINOPHEN 325 MG TAB PO PRN (19:30)
[2017-09-28] MEDS: POTASSIUM PHOSPHATE/SODIUM PHOSPHATE 250 MG TAB PO SCH ×3 (19:31→19:33)
[2017-09-28] MEDS ORDERED: ACETAMINOPHEN/HYDROcodone 325 MG/5 MG TAB PO ONE (23:30)
[2017-09-29] VITALS (27 sets, daily range): BP systolic 112–136; BP diastolic 70–82; PULSE 83–132; RESP 18–19; TEMP 98.1–98.4; O2SAT 98–100
[2017-09-29] MEDS: POTASSIUM PHOSPHATE/SODIUM PHOSPHATE 250 MG TAB PO SCH ×5 (00:35→23:57)
[2017-09-29 07:24] LABS: HEMATOCRIT 33.3 % (39.0-51.0); HEMOGLOBIN 11.3 GM/DL (13.0-17.0); MEAN CELL VOLUME 91.9 FL (80.0-100.0); MEAN CORPUSCULAR HEMOGLOBIN 31.2 PG (27.0-34.0); MEAN CORPUSCULAR HGB CONC 33.9 % (32.0-36.0); MEAN PLATELET VOLUME 7.4 FL (7.0-11.0); PLATELET COUNT 535 TH/MM3 (150-450); RED BLOOD COUNT 3.63 MIL/MM3 (4.50-5.90); RED CELL DISTRIBUTION WIDTH 18.2 % (11.6-17.2)
[2017-09-29 07:41] LABS: BICARBONATE 20.6 MEQ/L (21.0-32.0); CALCIUM 7.9 MG/DL (8.5-10.1); CREATININE 0.48 MG/DL (0.60-1.30)
[2017-09-29] MEDS: INSULIN ASPART SUPPLEMENTAL SCALE SQ SCH ×4 (08:00→21:00)
[2017-09-29] MEDS: METOPROLOL TARTRATE 5 MG/5 ML VIAL IV PUSH PRN (08:37)
[2017-09-29] MEDS: GABAPENTIN 300 MG CAP PO SCH (08:47)
[2017-09-29] MEDS: FERROUS SULFATE 325 MG (65 MG ELEMENTAL IRON) TAB PO SCH (08:47)
[2017-09-29] MEDS: PRAVASTATIN SOD 40 MG TAB PO SCH (08:47)
[2017-09-29] MEDS: metFORMIN HCL 500 MG TAB PO SCH (08:47)
[2017-09-29] MEDS: FOLIC ACID 1 MG TAB PO SCH (08:47)
[2017-09-29] MEDS: glipiZIDE 10 MG TAB PO SCH ×2 (08:47→16:40)
[2017-09-29] MEDS: LACTOBACILLUS ACIDOPHILUS TAB PO SCH (08:47)
[2017-09-29] MEDS: SODIUM CHLORIDE 0.9% FLUSH 10 ML FLUSH IV FLUSH SCH ×2 (08:50→21:26)
[2017-09-29] MEDS: MEGESTROL ACETATE SUSP 400 MG/10 ML CUP PO SCH (10:08)
[2017-09-29] MEDS: SODIUM CHLOR 0.9% 1000 ML INJ 1,000 ML IV SCH ×2 (10:30→19:57)
[2017-09-29 11:35] LABS: HEMOGLOBIN A1C 6.2 % (4.3-6.0)
[2017-09-29] MEDS ORDERED: DIGOXIN 0.5 MG/2 ML VIAL IV PUSH ONE (11:45)
--- NOTE | 2017-09-29 11:46 | PD.CARD.PN ---
Subjective Subjective Remarks Pt without CV complaints Objective Medications Current Medications Medications (Trade) Dose Ordered Sig/Rodrigo Route Start Time Stop Time Status Last Admin (NS Flush) 2 ml UNSCH PRN IV FLUSH 09/23/17 23:45 (NS Flush) 2 ml BID IV FLUSH 09/24/17 09:00 09/29/17 08:50 (Tylenol) 650 mg Q4H PRN PO 09/23/17 23:45 09/28/17 19:30 (Zofran Inj) 4 mg Q6H PRN IVP 09/23/17 23:45 (Narcan Inj) 0.4 mg UNSCH PRN IV PUSH 09/23/17 23:45 (D50w (Vial) Inj) 50 ml UNSCH PRN IV PUSH 09/23/17 23:45 (Glucagon Inj) 1 mg UNSCH PRN OTHER 09/23/17 23:45 (NovoLOG SUPPLEMENTAL SCALE) 1 ACHS SLIDING SCALE SQ 09/24/17 08:00 09/28/17 14:49 (Ferrous Sulfate) 325 mg DAILY PO 09/25/17 09:00 09/29/17 08:47 (Folate) 1 mg DAILY PO 09/25/17 09:00 09/29/17 08:47 (Neurontin) 300 mg DAILY PO 09/25/17 09:00 09/29/17 08:47 (Pravachol) 40 mg DAILY PO 09/25/17 09:00 09/29/17 08:47 (Januvia) 100 mg DAILY PO 09/25/17 09:00 09/29/17 10:07 (Lactinex) 1 tab DAILY PO 09/25/17 09:00 09/29/17 08:47 (Megace Liq) 400 mg DAILY PO 09/26/17 10:30 09/29/17 10:08 (K-Phos Neutral) 250 mg Q6HR PO 09/26/17 12:45 09/29/17 05:58 (Glucotrol) 10 mg BIDAC PO 09/26/17 16:00 09/29/17 08:47 (Glucophage) 1,500 mg AC BREAKFAST PO 09/27/17 07:00 09/29/17 08:47 (Lopressor Inj) 5 mg Q5M PRN IV PUSH 09/28/17 09:45 09/29/17 08:37 Sodium Chloride 1,000 ml @ 125 mls/hr Q8H IV 09/28/17 10:30 09/29/17 10:30 Amiodarone HCl 450 mg/Sodium Chloride 250 ml @ 33.33 mls/ hr Q7H31M PRN IV 09/28/17 12:00 09/28/17 21:21 Vital Signs / I&O Vital Signs Date Time Temp Pulse Resp B/P (MAP) Pulse Ox O2 Delivery O2 Flow Rate FiO2 09/29/17 08:45 98.2 105 18 126/71 (89) 98 09/29/17 04:00 97 09/29/17 03:11 112 09/29/17 03:11 112 09/29/17 02:53 98.4 120 18 112/82 (92) 100 09/29/17 02:00 120 09/29/17 02:00 120 09/29/17 01:00 122 09/29/17 01:00 122 09/29/17 00:00 128 09/29/17 00:00 128 09/28/17 23:00 142 09/28/17 23:00 142 09/28/17 22:00 98.2 144 20 100/68 (79) 99 09/28/17 22:00 144 100/68 09/28/17 22:00 144 09/28/17 21:44 142 09/28/17 21:21 143 99/69 09/28/17 20:00 98.7 142 19 99/69 (79) 100 09/28/17 16:00 98.2 148 21 105/68 (80) 98 09/28/17 14:23 153 99/62 09/28/17 14:22 153 99/62 09/28/17 14:00 97.9 155 21 99/62 (74) 94 09/28/17 14:00 155 09/28/17 13:23 152 18 94/59 97 09/28/17 13:05 155 18 88/60 100 09/28/17 12:20 153 18 83/53 (63) 100 09/28/17 11:46 155 16 99/64 (76) 100 I/O 09/28/17 09/28/17 09/28/17 09/29/17 09/29/17 09/29/17 07:00 15:00 23:00 07:00 15:00 23:00 Intake Total 110 ml 1050 ml 1359 ml Output Total 250 ml 500 ml Balance -250 ml 110 ml 1050 ml 859 ml Intake Oral 250 ml 240 ml IV Total 100 ml 1119 ml Packed Cells 800 ml Blood Product IV Normal Saline Flush 10 ml Output Urine Total 250 ml 500 ml # Voids 5 3 # Bowel Movements 1 1 Physical Exam GENERAL: Well developed, well nourished. No acute distress. HEENT: Jugular venous pressure is normal. CHEST: Lungs clear to auscultation bilaterally. Unlabored respiratory effort. CARDIAC: irregular rate and rhythm without S3, S4, or murmur. ABDOMEN: Soft, nontender, no hepatosplenomegaly. Bowel sounds present. EXTREMITIES: No clubbing, cyanosis, or edema. Laboratory Laboratory Tests Test 09/28/17 17:48 09/29/17 06:05 Hemoglobin 11.4 GM/DL 11.3 GM/DL Hematocrit 33.1 % 33.3 % Iron Level 51 MCG/DL Total Iron Binding Capacity 190 MCG/DL Percent Iron Saturation 26.8 % Ferritin 849 NG/ML Troponin I 0.05 NG/ML White Blood Count 14.0 TH/MM3 Red Blood Count 3.63 MIL/MM3 Mean Corpuscular Volume 91.9 FL Mean Corpuscular Hemoglobin 31.2 PG Mean Corpuscular Hemoglobin Concent 33.9 % Red Cell Distribution Width 18.2 % Platelet Count 535 TH/MM3 Mean Platelet Volume 7.4 FL Blood Urea Nitrogen 11 MG/DL Creatinine 0.48 MG/DL Random Glucose 117 MG/DL Calcium Level 7.9 MG/DL Sodium Level 127 MEQ/L Potassium Level 3.5 MEQ/L Chloride Level 96 MEQ/L Carbon Dioxide Level 20.6 MEQ/L Anion Gap 10 MEQ/L Estimat Glomerular Filtration Rate 166 ML/MIN Assessment and Plan Assessment and Plan 1. Supraventricular tachycardia --> AF today -fair to poor rate control on amio, will try to add dig and dilt -not a candidate for anticoagulation secondary to his anemia. 2. Anemia -- This is per the primary team and again may be an exacerbating factor to his supraventricular tachycardia, though the sudden abrupt change in the heart rate is suggestive of separate processes. -I would hold off with EGD until we can get reasonable HR control 3. Failure to thrive -- This is per the primary team as well. Debbie Parker MD Sep 29, 2017 11:46
[2017-09-29] MEDS: DILTIAZEM HCL 30 MG TAB PO SCH ×3 (13:30→23:56)
[2017-09-29] MEDS: AMIODARONE INJ 450 MG in SODIUM CHLOR 0.9% (EXCEL) INJ 241 ML IV PRN (13:32)
--- NOTE | 2017-09-29 13:38 | HHI.PR ---
Subjective Remarks awake and alert, having low back discomfort- chronic per patient takes Gibsonia radha any chest pain orshortness of breath telemetry- a fib- rate 120s Objective Vitals Vital Signs Date Time Temp Pulse Resp B/P (MAP) Pulse Ox O2 Delivery O2 Flow Rate FiO2 09/29/17 13:32 112 127/82 09/29/17 11:45 98.1 95 18 126/79 (95) 100 09/29/17 08:45 98.2 105 18 126/71 (89) 98 09/29/17 04:00 97 09/29/17 03:11 112 09/29/17 03:11 112 09/29/17 02:53 98.4 120 18 112/82 (92) 100 09/29/17 02:00 120 09/29/17 02:00 120 09/29/17 01:00 122 09/29/17 01:00 122 09/29/17 00:00 128 09/29/17 00:00 128 09/28/17 23:00 142 09/28/17 23:00 142 09/28/17 22:00 98.2 144 20 100/68 (79) 99 09/28/17 22:00 144 100/68 09/28/17 22:00 144 09/28/17 21:44 142 09/28/17 21:21 143 99/69 09/28/17 20:00 98.7 142 19 99/69 (79) 100 09/28/17 16:00 98.2 148 21 105/68 (80) 98 09/28/17 14:23 153 99/62 09/28/17 14:22 153 99/62 09/28/17 14:00 97.9 155 21 99/62 (74) 94 09/28/17 14:00 155 I/O 09/28/17 09/28/17 09/28/17 09/29/17 09/29/17 09/29/17 07:00 15:00 23:00 07:00 15:00 23:00 Intake Total 110 ml 1050 ml 1359 ml 241 ml Output Total 250 ml 500 ml Balance -250 ml 110 ml 1050 ml 859 ml 241 ml Intake Oral 250 ml 240 ml IV Total 100 ml 1119 ml 241 ml Packed Cells 800 ml Blood Product IV Normal Saline Flush 10 ml Output Urine Total 250 ml 500 ml # Voids 5 3 # Bowel Movements 1 1 Result Diagram: 09/29/17 0605 09/29/17 06 Imaging Last Impressions Chest X-Ray 09/23/17 192 Signed Impressions: Service Date/Time: Saturday, September 23, 2017 19:35 - CONCLUSION: 1. No active disease. Nicholas Jacobsen MD Objective Remarks awake and alert, no acute distress anicteric no nuchal rigidity no rales irregularly irregular rhythm abdomen- soft, good bowel sounds no scrotal swelling no leg swelling, good peripheral pulses moves all extremities spontaneously Procedures none A/P Problem List: (1) Self-care deficit in patient living alone ICD Code: R46.89 - Other symptoms and signs involving appearance and behavior Status: Acute (2) DM (diabetes mellitus) ICD Code: E11.9 - Type 2 diabetes mellitus without complications Status: Chronic (3) Dehydration ICD Code: E86.0 - Dehydration Status: Resolved (4) Hyponatremia ICD Code: E87.1 - Hypo-osmolality and hyponatremia Status: Resolved (5) Failure to thrive in adult ICD Code: R62.7 - Adult failure to thrive Status: Acute (6) Generalized weakness ICD Code: R53.1 - Weakness Status: Acute (7) Hyperlipidemia ICD Code: E78.5 - Hyperlipidemia, unspecified Status: Chronic (8) Severe protein-calorie malnutrition ICD Code: E43 - Unspecified severe protein-calorie malnutrition Status: Acute Assessment and Plan Patient is a 86-year-old male with a history of hypertension and diabetes was brought to the ED after his neighbor had concerns for unable to care for himself. SVT now in a fib- rate uncontrolled -cardiology ff start on amiodarone drip today for additional rate control -continue on BB + CCB - digoxin started Anemia, S/P 2 units RBC Questionable GI bleed -Gastroenterology consult- plan for eventual scope PPI Self-care deficit -Consult case management for placement, as patient lives alone and unable to care for self -PT eval and treat Severe protein calorie malnutrition Mild dehydration -IVF for hydration provided -Pt is at high nutrition risk r/t FTT and recent wt loss w/low BMI 17.4. MDC for Calorie Count started today 09/24/17 through 09/27/17 w/Nutrition Recs to Follow 04/13/18. Send Glucerna Shakes tid to offer 220 kcal and 10g Protein per serving. [place] pt's food preferences. Megace Hyponatremia, sodium trending up - ff TSH- pending ff BMP decrease IVF to 30 cc/hr Diabetes Mellitus type 2- a1C still pending -Accu-Cheks with sliding scale insulin -Monitor - better readings - on metformin + glyburide Poor nutritional status - appreciate dietitian ff along with us. on glucerna DVT prophylaxis: SCDs NO chemical prophylaxis due to severe anemia Problem Qualifiers (1) DM (diabetes mellitus): Qualified Codes: E11.42 - Type 2 diabetes mellitus with diabetic polyneuropathy (2) Hyperlipidemia: Qualified Codes: E78.5 - Hyperlipidemia, unspecified Alma Holliday MD Sep 29, 2017 13:38
[2017-09-29] MEDS: ACETAMINOPHEN/HYDROcodone 325 MG/5 MG TAB PO PRN ×2 (14:39→21:49)
--- NOTE | 2017-09-29 15:24 | HHI.GIFU ---
Subjective Remarks Pt is resting in bed, denies nausea, vomiting, abd pain, melena or hematochezia. HR remain high ranging 120- 130 (Tal,Gary INFRASTRUCTURE DIRECTOR) Objective Vitals I&O Vital Signs Date Time Temp Pulse Resp B/P (MAP) Pulse Ox O2 Delivery O2 Flow Rate FiO2 09/29/17 15:01 94 09/29/17 14:00 130 09/29/17 13:32 112 127/82 09/29/17 13:00 120 09/29/17 12:00 118 09/29/17 11:45 98.1 95 18 126/79 (95) 100 09/29/17 11:00 119 09/29/17 10:00 132 09/29/17 09:00 122 09/29/17 08:45 98.2 105 18 126/71 (89) 98 09/29/17 08:00 124 09/29/17 07:00 122 09/29/17 04:00 97 09/29/17 03:11 112 09/29/17 03:11 112 09/29/17 02:53 98.4 120 18 112/82 (92) 100 09/29/17 02:00 120 09/29/17 02:00 120 09/29/17 01:00 122 09/29/17 01:00 122 09/29/17 00:00 128 09/29/17 00:00 128 09/28/17 23:00 142 09/28/17 23:00 142 09/28/17 22:00 98.2 144 20 100/68 (79) 99 09/28/17 22:00 144 100/68 09/28/17 22:00 144 09/28/17 21:44 142 09/28/17 21:21 143 99/69 09/28/17 20:00 98.7 142 19 99/69 (79) 100 09/28/17 16:00 98.2 148 21 105/68 (80) 98 I/O 09/28/17 09/28/17 09/28/17 09/29/17 09/29/17 09/29/17 06:59 14:59 22:59 06:59 14:59 22:59 Intake Total 110 ml 1050 ml 1359 ml 241 ml Output Total 250 ml 500 ml Balance -250 ml 110 ml 1050 ml 859 ml 241 ml Intake Oral 250 ml 240 ml IV Total 100 ml 1119 ml 241 ml Packed Cells 800 ml Blood Product IV Normal Saline Flush 10 ml Output Urine Total 250 ml 500 ml # Voids 5 3 # Bowel Movements 1 1 Laboratory Laboratory Tests Test 09/28/17 17:48 09/29/17 06:05 Hemoglobin 11.4 11.3 Hematocrit 33.1 33.3 Hemoglobin A1c 6.2 Iron Level 51 Total Iron Binding Capacity 190 Percent Iron Saturation 26.8 Ferritin 849 Troponin I 0.05 White Blood Count 14.0 Red Blood Count 3.63 Mean Corpuscular Volume 91.9 Mean Corpuscular Hemoglobin 31.2 Mean Corpuscular Hemoglobin Concent 33.9 Red Cell Distribution Width 18.2 Platelet Count 535 Mean Platelet Volume 7.4 Blood Urea Nitrogen 11 Creatinine 0.48 Random Glucose 117 Calcium Level 7.9 Sodium Level 127 Potassium Level 3.5 Chloride Level 96 Carbon Dioxide Level 20.6 Anion Gap 10 Estimat Glomerular Filtration Rate 166 Date/Time Source Procedure Growth Status 09/25/17 23:30 Stool Stool Stool Occult Blood (MISSAEL) - Final HEMOCCULT NEGATIVE Complete Imaging Last Impressions Chest X-Ray 09/23/171920 Signed Impressions: Service Date/Time: Saturday, September 23, 2017 19:35 - CONCLUSION: 1. No active disease. Nicholas Jacobsen MD Physical Exam HEENT: normocephalic; atraumatic; no jaundice. CHEST: Chest is clear to auscultation and percussion. CARDIAC: tachy ABDOMEN: Soft, nondistended, nontender; no hepatosplenomegaly; bowel sounds are present in all four quadrants. EXTREMITIES: No clubbing, cyanosis, or edema. SKIN: Normal; no rash; no jaundice. CHUCK WAGON DRIVER: No focal deficits; alert and oriented times three. (Amawi,Mejiaawnimesh INFRASTRUCTURE DIRECTOR) Assessment and Plan Plan ASSESSMENT - anemia - hgb 6.3 . HH improved s/p 2 units of blood, today is 11.3, his baseline is around 8-9. normocytic. no obvious bleeding, stool neg for blood but does have hx gastric ulcers, colitis. EGD & colonoscopy08/30/17 with finding 3 gastric ulcers, 1 large nonbleeding duodenal ulcer, esophagitis, hiatal hernia; diverticulosis, circumferential patch colitis with friable tissue oozing blood, path chronic active colitis with cryptitis. He was neg for c diff. ?IBD denies bleeding at this time - SVT cardiology following PLAN - SAM[facility] - will need EGD, once cleared by cardiology, currently HR remains high and pt not stable, cardiology recommendation to hold off utnil HR is more stable - monitor labs - transfuse as needed - supportive care - notify GI of active bleed pt seen by myself and DR Yeung and this note is on his behalf (Gary Parada) Plan Patient was seen and examined, agree with above note, was transferred to floor, once cleared by cardiology will plan on doing upper endoscopy to rule out source of bleeding (Abigail Yeung MD) Gary Parada Sep 29, 2017 15:24 Abigail Yeung MD Sep 29, 2017 15:44
--- NOTE | 2017-09-29 16:15 | EKG ---
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 PREVIOUS TRACIN02/2018 19.22 DOCTOR: Debbie Parker Interpretating Date/Time 09/29/2017 16:13:36
--- NOTE | 2017-09-29 16:15 | EKG ---
Date Performed: 09/28/2017 Time Performed: 10:03:54 PTAGE: 86 years EKG: JUNCTIONAL TACHYCARDIA, POSSIBLE ATRIAL FLUTTER RIGHT BUNDLE BRANCH BLOCK LEFT ANTERIOR FAS CICULAR BLOCK ABNORMAL ECG Since PREVIOUS TRACING , no significant change noted PREVIOUS TRACIN09/28/2017 09.33 DOCTOR: Debbie Parker Interpretating Date/Time 09/29/2017 16:13:45
--- NOTE | 2017-09-29 16:16 | EKG ---
Date Performed: 09/28/2017 Time Performed: 14:18:03 PTAGE: 86 years EKG: ATRIAL FLUTTER/TACHYCARDIA WITH RAPID VENTRICULAR RESPONSE MARKED LEFT AXIS DEVIATION RIGHT BUNDLE BRANCH BLOCK ABNORMAL ECG Since PREVIOUS TRACING , no significant change noted PREVIOUS TRACIN09/28/2017 10.03.54 DOCTOR: Debbie Parker Interpretating Date/Time 09/29/2017 16:14:00
--- NOTE | 2017-09-29 16:34 | ECHRPT ---
Indication: A FIB FLUTTER CONCLUSIONS Normal left ventricular size. Moderate concentric left ventricular hypertrophy. The left ventricular systolic function is low normal with an estimated ejection fraction in the rang e of 50- 55%. The left atrial size is upper limits of normal. Trace mitral valve regurgitation. Mitral annular calcification is present. There is trace tricuspid valve regurgitation. BP: / HR: Rhythm: MEASUREMENTS (Male / Female) Normal Values Technical Quality: 2D ECHO LV Diastolic Diameter PLAX 4.6 cm 4.2 - 5.9 / 3.9 - 5.3 cm LV Systolic Diameter PLAX 3.8 cm IVS Diastolic Thickness 1.4 cm 0.6 - 1.0 / 0.6 - 0.9 cm LVPW Diastolic Thickness 0.8 cm 0.6 - 1.0 / 0.6 - 0.9 cm LV Relative Wall Thickness 0.5 LA Systolic Diameter LX 3.8 cm 3.0 - 4.0 / 2.7 - 3.8 cm M-MODE Aortic Root Diameter MM 2.9 cm AV Cusp Separation MM 2.1 cm DOPPLER TR Peak Velocity 190.0 cm/s TR Peak Gradient 14.4 mmHg Right Atrial Pressure 5.0 mmHg Pulmonary Artery Systolic Pressu 19.4 mmHg Right Ventricular Systolic Press 19.4 mmHg FINDINGS LEFT VENTRICLE Normal left ventricular size. Moderate concentric left ventricular hypertrophy. The left ventricular systolic function is low normal with an estimated ejection fraction in the rang e of 50- 55%. RIGHT VENTRICLE Normal right ventricular size and systolic function. LEFT ATRIUM The left atrial size is upper limits of normal. RIGHT ATRIUM The right atrial size is normal. ATRIAL SEPTUM Normal atrial septal thickness without atrial level shunting by limited color doppler interrogation. AORTA The aortic root and proximal ascending aorta are normal in size on limited imaging. MITRAL VALVE Trace mitral valve regurgitation. Mitral annular calcification is present. AORTIC VALVE Trileaflet aortic valve. No aortic valve stenosis or regurgitation. TRICUSPID VALVE There is trace tricuspid valve regurgitation. PULMONARY VALVE No pulmonary valve regurgitation or stenosis. VESSELS The inferior vena cava is normal in size. PERICARDIUM No pericardial effusion. Debbie Parker MD, FACC (Electronically Signed) Final Date:29 September 2017 16:33
[2017-09-29] MEDS ORDERED: DIGOXIN 0.5 MG/2 ML VIAL IV PUSH SCH (18:00)
[2017-09-30] VITALS (25 sets, daily range): BP systolic 119–142; BP diastolic 62–70; PULSE 70–92; RESP 16–18; TEMP 97.8–99; O2SAT 96–98
[2017-09-30] MEDS: AMIODARONE INJ 450 MG in SODIUM CHLOR 0.9% (EXCEL) INJ 241 ML IV PRN (03:39)
[2017-09-30] MEDS: DILTIAZEM HCL 30 MG TAB PO SCH ×4 (05:30→23:15)
[2017-09-30] MEDS: POTASSIUM PHOSPHATE/SODIUM PHOSPHATE 250 MG TAB PO SCH ×4 (05:30→23:15)
[2017-09-30 06:20] LABS: AUTOMATED NEUTROPHIL # 8.7 TH/MM3 (1.8-7.7); BASOPHIL % 0.3 % (0.0-2.0); EOSINOPHIL # 0.1 TH/MM3 (0-0.4); EOSINOPHIL % 1.3 % (0.0-4.0); HEMATOCRIT 31.6 % (39.0-51.0); HEMOGLOBIN 10.7 GM/DL (13.0-17.0); LYMPH % 11.7 % (9.0-44.0); LYMPHOCYTE # 1.3 TH/MM3 (1.0-4.8); MEAN CELL VOLUME 91.4 FL (80.0-100.0); MEAN CORPUSCULAR HEMOGLOBIN 31.1 PG (27.0-34.0); MEAN PLATELET VOLUME 6.8 FL (7.0-11.0); MONO % 9.6 % (0.0-8.0); MONOCYTE # 1.1 TH/MM3 (0-0.9); NEUT % 77.1 % (16.0-70.0); PLATELET COUNT 569 TH/MM3 (150-450); RED BLOOD COUNT 3.45 MIL/MM3 (4.50-5.90); RED CELL DISTRIBUTION WIDTH 17.6 % (11.6-17.2); WHITE BLOOD COUNT 11.3 TH/MM3 (4.0-11.0)
[2017-09-30] MEDS: glipiZIDE 10 MG TAB PO SCH ×2 (06:41→18:26)
[2017-09-30] MEDS: metFORMIN HCL 500 MG TAB PO SCH (06:41)
[2017-09-30 06:54] LABS: BICARBONATE 20.9 MEQ/L (21.0-32.0); CALCIUM 7.8 MG/DL (8.5-10.1); CREATININE 0.32 MG/DL (0.60-1.30)
[2017-09-30] MEDS: DEXTROSE 50% IN WATER 50 ML VIAL(D50) IV PUSH PRN ×2 (07:06→09:13)
[2017-09-30] MEDS: INSULIN ASPART SUPPLEMENTAL SCALE SQ SCH ×4 (08:00→20:07)
[2017-09-30] MEDS: SODIUM CHLORIDE 0.9% FLUSH 10 ML FLUSH IV FLUSH SCH ×2 (09:00→20:01)
[2017-09-30] MEDS: LACTOBACILLUS ACIDOPHILUS TAB PO SCH (09:03)
[2017-09-30] MEDS: FOLIC ACID 1 MG TAB PO SCH (09:03)
[2017-09-30] MEDS: FERROUS SULFATE 325 MG (65 MG ELEMENTAL IRON) TAB PO SCH (09:03)
[2017-09-30] MEDS: DIGOXIN 0.125 MG TAB PO SCH (09:03)
[2017-09-30] MEDS: GABAPENTIN 300 MG CAP PO SCH (09:03)
[2017-09-30] MEDS: MEGESTROL ACETATE SUSP 400 MG/10 ML CUP PO SCH (09:03)
[2017-09-30] MEDS: PRAVASTATIN SOD 40 MG TAB PO SCH (09:17)
--- NOTE | 2017-09-30 10:16 | PD.CARD.PN ---
Subjective Subjective Remarks Pt without CV complaints Objective Medications Current Medications Medications (Trade) Dose Ordered Sig/Rodrigo Route Start Time Stop Time Status Last Admin (NS Flush) 2 ml UNSCH PRN IV FLUSH 09/23/17 23:45 (NS Flush) 2 ml BID IV FLUSH 09/24/17 09:00 09/30/17 09:00 (Tylenol) 650 mg Q4H PRN PO 09/23/17 23:45 09/28/17 19:30 (Zofran Inj) 4 mg Q6H PRN IVP 09/23/17 23:45 (Narcan Inj) 0.4 mg UNSCH PRN IV PUSH 09/23/17 23:45 (D50w (Vial) Inj) 50 ml UNSCH PRN IV PUSH 09/23/17 23:45 09/30/17 09:13 (Glucagon Inj) 1 mg UNSCH PRN OTHER 09/23/17 23:45 (NovoLOG SUPPLEMENTAL SCALE) 1 ACHS SLIDING SCALE SQ 09/24/17 08:00 09/29/17 12:00 (Ferrous Sulfate) 325 mg DAILY PO 09/25/17 09:00 09/30/17 09:03 (Folate) 1 mg DAILY PO 09/25/17 09:00 09/30/17 09:03 (Neurontin) 300 mg DAILY PO 09/25/17 09:00 09/30/17 09:03 (Pravachol) 40 mg DAILY PO 09/25/17 09:00 09/30/17 09:17 (Januvia) 100 mg DAILY PO 09/25/17 09:00 09/29/17 10:07 (Lactinex) 1 tab DAILY PO 09/25/17 09:00 09/30/17 09:03 (Megace Liq) 400 mg DAILY PO 09/26/17 10:30 09/30/17 09:03 (K-Phos Neutral) 250 mg Q6HR PO 09/26/17 12:45 09/30/17 05:30 (Glucotrol) 10 mg BIDAC PO 09/26/17 16:00 09/29/17 16:40 (Glucophage) 1,500 mg AC BREAKFAST PO 09/27/17 07:00 09/29/17 08:47 (Lopressor Inj) 5 mg Q5M PRN IV PUSH 09/28/17 09:45 09/29/17 08:37 Sodium Chloride 1,000 ml @ 30 mls/hr Q24H IV 09/28/17 10:30 09/29/17 19:57 Amiodarone HCl 450 mg/Sodium Chloride 250 ml @ 33.33 mls/ hr Q7H31M PRN IV 09/28/17 12:00 09/30/17 03:39 (Lanoxin) 0.125 mg DAILY PO 09/30/17 09:00 09/30/17 09:03 (Cardizem) 30 mg Q6HR PO 09/29/17 12:00 09/30/17 05:30 ([place] 5-325 Mg) 1 tab Q6H PRN PO 09/29/17 14:30 09/29/17 21:49 Vital Signs / I&O Vital Signs Date Time Temp Pulse Resp B/P (MAP) Pulse Ox O2 Delivery O2 Flow Rate FiO2 09/30/17 06:07 76 09/30/17 05:14 79 09/30/17 04:45 75 09/30/17 03:44 98.4 85 18 128/67 (87) 97 09/30/17 03:39 85 128/67 09/30/17 03:00 86 09/30/17 02:24 84 09/30/17 01:34 84 09/30/17 00:00 86 09/29/17 23:30 18 09/29/17 23:23 98.2 91 18 132/70 (90) 99 09/29/17 23:00 87 09/29/17 22:00 90 09/29/17 21:00 88 09/29/17 20:00 88 09/29/17 19:38 98.4 88 19 134/73 (93) 98 09/29/17 19:00 90 09/29/17 18:01 83 09/29/17 17:00 90 09/29/17 16:00 92 09/29/17 15:01 98.1 96 18 136/71 (92) 100 09/29/17 15:01 94 09/29/17 14:00 130 09/29/17 13:32 112 127/82 09/29/17 13:00 120 09/29/17 12:00 118 09/29/17 11:45 98.1 95 18 126/79 (95) 100 09/29/17 11:00 119 I/O 09/29/17 09/29/17 09/29/17 09/30/17 09/30/17 09/30/17 07:00 15:00 23:00 07:00 15:00 23:00 Intake Total 1359 ml 241 ml 840 ml 490 ml Output Total 500 ml 700 ml 2200 ml Balance 859 ml 241 ml 140 ml -1710 ml Intake Oral 240 ml 840 ml 240 ml IV Total 1119 ml 241 ml 250 ml Output Urine Total 500 ml 700 ml 2200 ml # Voids 3 3 # Bowel Movements 1 1 Physical Exam GENERAL: Well developed, well nourished. No acute distress. HEENT: Jugular venous pressure is normal. CHEST: Lungs clear to auscultation bilaterally. Unlabored respiratory effort. CARDIAC: regular rate and rhythm without S3, S4, or murmur. ABDOMEN: Soft, nontender, no hepatosplenomegaly. Bowel sounds present. EXTREMITIES: No clubbing, cyanosis, or edema. Laboratory Laboratory Tests Test 09/30/17 05:15 White Blood Count 11.3 TH/MM3 Red Blood Count 3.45 MIL/MM3 Hemoglobin 10.7 GM/DL Hematocrit 31.6 % Mean Corpuscular Volume 91.4 FL Mean Corpuscular Hemoglobin 31.1 PG Mean Corpuscular Hemoglobin Concent 34.0 % Red Cell Distribution Width 17.6 % Platelet Count 569 TH/MM3 Mean Platelet Volume 6.8 FL Neutrophils (%) (Auto) 77.1 % Lymphocytes (%) (Auto) 11.7 % Monocytes (%) (Auto) 9.6 % Eosinophils (%) (Auto) 1.3 % Basophils (%) (Auto) 0.3 % Neutrophils # (Auto) 8.7 TH/MM3 Lymphocytes # (Auto) 1.3 TH/MM3 Monocytes # (Auto) 1.1 TH/MM3 Eosinophils # (Auto) 0.1 TH/MM3 Basophils # (Auto) 0.0 TH/MM3 CBC Comment DIFF FINAL Differential Comment Blood Urea Nitrogen 9 MG/DL Creatinine 0.32 MG/DL Random Glucose 38 MG/DL Calcium Level 7.8 MG/DL Sodium Level 133 MEQ/L Potassium Level 3.6 MEQ/L Chloride Level 103 MEQ/L Carbon Dioxide Level 20.9 MEQ/L Anion Gap 9 MEQ/L Estimat Glomerular Filtration Rate 264 ML/MIN Assessment and Plan Assessment and Plan 1. Supraventricular tachycardia --> PAF -overall greatly improved, still some bursts of PAF: change to PO amio -not a candidate for anticoagulation secondary to his anemia. 2. Anemia -- reasonable for EGD as HR controlled 3. Failure to thrive -- per primary team . Debbie Parker MD Sep 30, 2017 10:16
[2017-09-30] MEDS: ACETAMINOPHEN/HYDROcodone 325 MG/5 MG TAB PO PRN ×2 (11:16→20:00)
[2017-09-30] MEDS ORDERED: PROPOFOL 200 MG/20 ML AMP IV ONE (12:00)
[2017-09-30] MEDS ORDERED: LIDOCAINE HCL 1% PF 5 ML SYRINGE OTHER ONE (12:00)
[2017-09-30] MEDS ORDERED: DILTIAZEM HCL 30 MG TAB PO SCH (12:00)
[2017-09-30] MEDS: AMIODARONE 200 MG TAB PO SCH (12:48)
--- NOTE | 2017-09-30 14:27 | GIPROC ---
[facility] [address] [facility]. [facility], [address] EGD PROCEDURE REPORT EXAM DATE: 09/30/2017 PATIENT NAME: Rufus Escobedo MR #: [id number] BIRTHDATE: 1930 ATTENDING: Tierney Howard MD ORDER #: [id number] INDUSTRIAL TECHNOLOGY TEACHER: Omar Colon and Gloria Griffith STATUS: inpatient INDICATIONS: The patient is a 86 yr old male here for an EGD due to anemia history of gastric and duodenla ulcers PROCEDURE PERFORMED: EGD w/ biopsy MEDICATIONS: None and Per Anesthesia. TOPICAL ANESTHETIC: none CONSENT: The patient understands the risks and benefits of the procedure and understands that these risks include, but are not limited to: sedation, allergic reaction, infection, perforation and/or bleeding. Alternative means of evaluation and treatment include, among others: physical exam, x-rays, and/or surgical intervention. The patient elects to proceed with this endoscopic procedure. medical equipment was checked for proper function. Hand hygiene and appropriate measures for infection prevention was taken. After the risks, benefits and alternatives of the procedure were thoroughly explained, Informed consent was verified, confirmed and timeout was successfully executed by the treatment team. The patient was anesthetized with topical anesthesia and the Pentax EG-[id number] endoscope was introduced through the mouth and advanced to the proximal jejunum. Retroflexed views revealed a hiatal hernia The gastroscope was then slowly withdrawn and removed. Duodenitis second portion-biopsy gastritis antrum-biopsy esophagitis distal esophagus-biopsy. ADVERSE EVENTS: There were no complications. IMPRESSIONS: 1. Duodenitis second portion-biopsy gastritis antrum-biopsy esophagitis distal esophagus-biopsy 2. Retroflexed views revealed a hiatal hernia RECOMMENDATIONS: 1. Await biopsy results. Biopsy results will not be ready for 7-10 days. If you don't hear from us in two weeks, call our office for biopsy results. 2. Continue PPI 3. Anti-reflux regimen 4. Avoid NSAIDS 5. Capsule endoscopy op resume diet PATIENT CONDITION: stable DISPOSITION: Inpatient REPEAT EXAM: Return 3 months EGD Tierney Howard MD eSigned: Tierney Howard MD 09/30/2017 2:26 PM cc: PATIENT NAME: Rufus Escobedo MR#: [id number]
[2017-09-30] MEDS ORDERED: DO NOT ADM ANY ANTICOAGULANT DRUGS PRN (14:29)
[2017-09-30] MEDS ORDERED: DIATRIZOATE MEGLUM/DIATRIZOATE SOD 9 ML CUP PO ONE (15:00)
--- NOTE | 2017-09-30 16:27 | HHI.PR ---
Subjective Remarks 86-year-old male admitted for SVT likely secondary to anemia. He is awaiting endoscopy today and complains of hunger due to being n.p.o. Objective Vitals Vital Signs Date Time Temp Pulse Resp B/P (MAP) Pulse Ox O2 Delivery O2 Flow Rate FiO2 09/30/17 15:10 72 18 130/67 (88) 100 Room Air 09/30/17 15:00 98.6 72 16 119/64 (82) 98 09/30/17 14:45 68 16 120/62 (81) 96 Room Air 09/30/17 14:32 98.5 65 16 111/56 (74) 96 Nasal Cannula 2 09/30/17 13:30 99.0 79 16 138/62 (87) 96 09/30/17 13:00 76 09/30/17 12:00 98.6 80 16 131/70 (90) 98 09/30/17 12:00 76 09/30/17 11:00 75 09/30/17 10:00 74 09/30/17 09:00 74 09/30/17 08:00 80 09/30/17 08:00 98.0 82 18 129/68 (88) 98 09/30/17 07:00 78 09/30/17 06:07 76 09/30/17 05:14 79 09/30/17 04:45 75 09/30/17 03:44 98.4 85 18 128/67 (87) 97 09/30/17 03:39 85 128/67 09/30/17 03:00 86 09/30/17 02:24 84 09/30/17 01:34 84 09/30/17 00:00 86 09/29/17 23:30 18 09/29/17 23:23 98.2 91 18 132/70 (90) 99 09/29/17 23:00 87 09/29/17 22:00 90 09/29/17 21:00 88 09/29/17 20:00 88 09/29/17 19:38 98.4 88 19 134/73 (93) 98 09/29/17 19:00 90 09/29/17 18:01 83 09/29/17 17:00 90 I/O 09/29/17 09/29/17 09/29/17 09/30/17 09/30/17 09/30/17 07:00 15:00 23:00 07:00 15:00 23:00 Intake Total 1359 ml 241 ml 840 ml 490 ml 200 ml Output Total 500 ml 700 ml 2200 ml Balance 859 ml 241 ml 140 ml -1710 ml 200 ml Intake Oral 240 ml 840 ml 240 ml IV Total 1119 ml 241 ml 250 ml Other 200 ml Output Urine Total 500 ml 700 ml 2200 ml # Voids 3 3 # Bowel Movements 1 1 Result Diagram: 09/30/1751409/30/17514 Objective Remarks GENERAL: Weak appearing elderly man SKIN: Warm and dry. HEAD: Normocephalic. EYES: No scleral icterus. No injection or drainage. NECK: Supple, trachea midline. No JVD or lymphadenopathy. CARDIOVASCULAR: Intermittent sinus tachycardia without murmurs, gallops, or rubs. RESPIRATORY: Mild atelectasis in bases bilaterally. No accessory muscle use. GASTROINTESTINAL: Abdomen soft, non-tender, nondistended. EXTREMITIES: No cyanosis, or edema. NEUROLOGICAL: Awake, alert, and oriented x 3. Non-focal. Procedures none A/P Problem List: (1) Self-care deficit in patient living alone ICD Code: R46.89 - Other symptoms and signs involving appearance and behavior Status: Acute (2) DM (diabetes mellitus) ICD Code: E11.9 - Type 2 diabetes mellitus without complications Status: Chronic (3) Dehydration ICD Code: E86.0 - Dehydration Status: Resolved (4) Hyponatremia ICD Code: E87.1 - Hypo-osmolality and hyponatremia Status: Resolved (5) Failure to thrive in adult ICD Code: R62.7 - Adult failure to thrive Status: Acute (6) Generalized weakness ICD Code: R53.1 - Weakness Status: Acute (7) Hyperlipidemia ICD Code: E78.5 - Hyperlipidemia, unspecified Status: Chronic (8) Severe protein-calorie malnutrition ICD Code: E43 - Unspecified severe protein-calorie malnutrition Status: Acute Assessment and Plan Patient is a 86-year-old male admitted for failure to thrive SVT with occasional PAF Continue beta-rina and calcium channel rina Digoxin as needed Bridging to p.o. amiodarone today Appreciate cardiology consult Hypoglycemia Blood sugar at 38 this morning Responded well to glucose replacement Caused by n.p.o. status, asymptomatic Anemia, S/P 2 units RBC Questionable GI bleed Undergoing endoscopy today Continue PPI Appreciate GI consult Failure to thrive Poor ability to care for himself at home, though he has had 2 poor experiences at group home facilities where he lost 60 pounds in matter of months Continue PT Severe protein calorie malnutrition Mild dehydration IVF for hydration provided Pt is at high nutrition risk r/t FTT and recent wt loss w/low BMI 17.4. MDC for Calorie Count started today 09/24/17 through 09/27/17 w/Nutrition Recs to Follow 09/27/17. Send [place]elizabeth Redgagelisa tid to offer 220 kcal and 10g Protein per serving. [place] pt's food preferences. Continue Megace Hyponatremia, sodium trending up TSH shows borderline elevation, due to weight loss will hold treatment Sodium is nearing normal at 133, patient is no longer symptomatic Type 2 diabetes Accu-Cheks with sliding scale insulin coverage Diabetic diet DVT prophylaxis SCDs Problem Qualifiers (1) DM (diabetes mellitus): Qualified Codes: E11.42 - Type 2 diabetes mellitus with diabetic polyneuropathy (2) Hyperlipidemia: Qualified Codes: E78.5 - Hyperlipidemia, unspecified Dustin Torre MD Sep 30, 2017 16:27
[2017-09-30] MEDS ORDERED: DIATRIZOATE MEGLUM/DIATRIZOATE SOD 9 ML CUP PO SCH (20:30)
[2017-09-30] MEDS ORDERED: FAMOTIDINE 20 MG TAB PO ONE (23:15)
[2017-10-01] VITALS (30 sets, daily range): BP systolic 109–164; BP diastolic 56–83; PULSE 75–106; RESP 16–19; TEMP 98–98.4; O2SAT 96–99
[2017-10-01] MEDS ORDERED: IOHEXOL 350 MG/ML 10 ML VIAL (for RAD DIAG) IVCONTRAST ONE (00:07)
--- NOTE | 2017-10-01 00:36 | RADRPT ---
EXAM DATE/TIME: 10/01/2017 00:07 [place] COMPARISON: No previous studies available for comparison. INDICATIONS : Abdomen pain. IV CONTRAST: 100 cc Omnipaque 350 (iohexol) IV ORAL CONTRAST: Prescribed oral contrast ingested. RADIATION DOSE: 9.96 CTDIvol (mGy) MEDICAL HISTORY : Cardiovascular disease. Hypertension. SURGICAL HISTORY : None. ENCOUNTER: Initial ACUITY: 1 day PAIN SCALE: 5/10 LOCATION: Bilateral abdomen TECHNIQUE: Volumetric scanning of the abdomen and pelvis was performed. Using automated exposure control and ad justment of the mA and/or kV according to patient size, radiation dose was kept as low as reasonably achievable to obtain optimal diagnostic quality images. DICOM format image data is available electro nically for review and comparison. FINDINGS: Questionable micronodular liver. There is trace ascites, nonspecific. No focal hepatic lesion. No spl enomegaly. Portal vein is patent. The pancreas and right adrenal gland are normal. Mild nodularity of the left adrenal gland. Small cys ts are seen of both kidneys. There are 4 mm upper pole and 3 mm lower pole nonobstructing stones of t he left kidney. Moderate to large stool throughout the colon, especially the rectum. Nonspecific distention of the st omach. Nonobstructive bowel gas pattern. No perceptible inflammatory changes. No mass seen. There is diverticulosis of the left side of the colon without perceptible diverticulitis. There is atherosclerosis of the abdominal aorta. Tiny bilateral pleural effusions and trace atelectasis of the visualized lung bases. Nonacute appearing subchondral fragmentation seen of the right femoral head. 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 Patient has had previous trochanteric nailing on that side. CONCLUSION: 1. No obstruction or acute inflammatory changes are demonstrated. 2. Nonspecific distention of the stomach. 3. Considerable stool throughout the colon. Nonspecific slight ascites. There is also body wall edema /anasarca and trace bibasilar pleural effusions. 4. A few scattered benign cysts of both kidneys. 5. Probable left adrenal adenomas. 6. Nonobstructing stones of the left kidney. 7. Atherosclerosis of the abdominal aorta. 8. Sigmoid colon diverticulosis without evidence of diverticulitis. 9. Nonacute appearing subchondral fragmentation/collapse of the right femoral head. Hipolito Ryder MD on October 01, 2017 at 0:28 Board Certified Radiologist. This report was verified electronically.
[2017-10-01] MEDS: POTASSIUM PHOSPHATE/SODIUM PHOSPHATE 250 MG TAB PO SCH ×4 (05:57→23:23)
[2017-10-01] MEDS: DILTIAZEM HCL 30 MG TAB PO SCH ×4 (05:58→23:23)
[2017-10-01] MEDS: INSULIN ASPART SUPPLEMENTAL SCALE SQ SCH ×4 (08:00→22:14)
[2017-10-01] MEDS: glipiZIDE 10 MG TAB PO SCH ×2 (08:32→16:02)
[2017-10-01] MEDS: FOLIC ACID 1 MG TAB PO SCH (08:32)
[2017-10-01] MEDS: MEGESTROL ACETATE SUSP 400 MG/10 ML CUP PO SCH (08:32)
[2017-10-01] MEDS: FERROUS SULFATE 325 MG (65 MG ELEMENTAL IRON) TAB PO SCH (08:32)
[2017-10-01] MEDS: AMIODARONE 200 MG TAB PO SCH (08:32)
[2017-10-01] MEDS: LACTOBACILLUS ACIDOPHILUS TAB PO SCH (08:32)
[2017-10-01] MEDS: GABAPENTIN 300 MG CAP PO SCH (08:32)
[2017-10-01] MEDS: SODIUM CHLORIDE 0.9% FLUSH 10 ML FLUSH IV FLUSH SCH ×2 (08:33→22:14)
[2017-10-01] MEDS: SODIUM CHLOR 0.9% 1000 ML INJ 1,000 ML IV SCH (08:45)
[2017-10-01] MEDS: PRAVASTATIN SOD 40 MG TAB PO SCH (09:27)
[2017-10-01] MEDS: DIGOXIN 0.125 MG TAB PO SCH (09:28)
[2017-10-01] MEDS: metFORMIN HCL 500 MG TAB PO SCH (09:29)
--- NOTE | 2017-10-01 12:17 | PD.CARD.PN ---
Subjective Subjective Remarks No events overnight No chest pain/SOB Not eating well overall Objective Medications Current Medications Medications (Trade) Dose Ordered Sig/Rodrigo Route Start Time Stop Time Status Last Admin (NS Flush) 2 ml UNSCH PRN IV FLUSH 09/23/17 23:45 (NS Flush) 2 ml BID IV FLUSH 09/24/17 09:00 10/01/17 08:33 (Tylenol) 650 mg Q4H PRN PO 09/23/17 23:45 09/28/17 19:30 (Zofran Inj) 4 mg Q6H PRN IVP 09/23/17 23:45 (Narcan Inj) 0.4 mg UNSCH PRN IV PUSH 09/23/17 23:45 (D50w (Vial) Inj) 50 ml UNSCH PRN IV PUSH 09/23/17 23:45 09/30/17 09:13 (Glucagon Inj) 1 mg UNSCH PRN OTHER 09/23/17 23:45 (NovoLOG SUPPLEMENTAL SCALE) 1 ACHS SLIDING SCALE SQ 09/24/17 08:00 10/01/17 08:00 (Ferrous Sulfate) 325 mg DAILY PO 09/25/17 09:00 10/01/17 08:32 (Folate) 1 mg DAILY PO 09/25/17 09:00 10/01/17 08:32 (Neurontin) 300 mg DAILY PO 09/25/17 09:00 10/01/17 08:32 (Pravachol) 40 mg DAILY PO 09/25/17 09:00 10/01/17 09:27 (Januvia) 100 mg DAILY PO 09/25/17 09:00 Future hold 10/01/17 11:24 (Lactinex) 1 tab DAILY PO 09/25/17 09:00 10/01/17 08:32 (Megace Liq) 400 mg DAILY PO 09/26/17 10:30 10/01/17 08:32 (K-Phos Neutral) 250 mg Q6HR PO 09/26/17 12:45 10/01/17 11:24 (Glucotrol) 10 mg BIDAC PO 09/26/17 16:00 10/01/17 08:32 (Glucophage) 1,500 mg AC BREAKFAST PO 09/27/17 07:00 10/01/17 09:29 (Lopressor Inj) 5 mg Q5M PRN IV PUSH 09/28/17 09:45 09/29/17 08:37 Sodium Chloride 1,000 ml @ 30 mls/hr Q24H IV 09/28/17 10:30 09/29/17 19:57 Amiodarone HCl 450 mg/Sodium Chloride 250 ml @ 33.33 mls/ hr Q7H31M PRN IV 09/28/17 12:00 09/30/17 03:39 (Lanoxin) 0.125 mg DAILY PO 09/30/17 09:00 10/01/17 09:28 ([place] 5-325 Mg) 1 tab Q6H PRN PO 09/29/17 14:30 09/30/17 20:00 (Cordarone) 200 mg DAILY PO 09/30/17 11:30 10/01/17 08:32 (Cardizem) 30 mg Q6HR PO 09/30/17 12:00 10/01/17 11:24 Miscellaneous Information ALL NURSING DEPARTME... UNSCH PRN .XX 09/30/17 14:29 10/01/17 14:28 Vital Signs / I&O Vital Signs Date Time Temp Pulse Resp B/P (MAP) Pulse Ox O2 Delivery O2 Flow Rate FiO2 10/01/17 07:46 98.0 91 16 110/63 (79) 98 10/01/17 06:00 80 10/01/17 05:00 83 10/01/17 04:00 92 10/01/17 04:00 90 10/01/17 03:47 98.0 89 18 135/72 (93) 96 10/01/17 03:00 90 10/01/17 02:00 88 10/01/17 01:00 90 10/01/17 00:00 98.1 91 18 164/83 (110) 96 10/01/17 00:00 90 10/01/17 00:00 90 09/30/17 23:00 90 09/30/17 22:00 92 09/30/17 21:00 86 09/30/17 20:00 97.8 86 18 142/70 (94) 98 09/30/17 20:00 86 09/30/17 20:00 84 09/30/17 19:00 84 09/30/17 18:00 86 09/30/17 17:40 18 09/30/17 17:00 84 09/30/17 16:00 74 09/30/17 15:10 72 18 130/67 (88) 100 Room Air 09/30/17 15:00 98.6 72 16 119/64 (82) 98 09/30/17 15:00 70 09/30/17 14:45 68 16 120/62 (81) 96 Room Air 09/30/17 14:32 98.5 65 16 111/56 (74) 96 Nasal Cannula 2 09/30/17 13:30 09/30/17 13:30 99.0 79 16 138/62 (87) 96 09/30/17 13:00 76 I/O 09/30/17 09/30/17 09/30/17 10/01/17 10/01/17 10/01/17 07:00 15:00 23:00 07:00 15:00 23:00 Intake Total 490 ml 200 ml 240 ml 960 ml Output Total 2200 ml 2200 ml 1000 ml Balance -1710 ml 200 ml -1960 ml -40 ml Intake Oral 240 ml 240 ml 960 ml IV Total 250 ml Other 200 ml Output Urine Total 2200 ml 2200 ml 1000 ml Physical Exam GENERAL: NAD, AAOx3 SKIN: Warm and dry. HEAD: Atraumatic. Normocephalic. EYES: Pupils equal and round. No scleral icterus. No injection or drainage. ENT: No nasal bleeding or discharge. Mucous membranes pink and moist. NECK: Trachea midline. No JVD. CARDIOVASCULAR: RRR RESPIRATORY: No accessory muscle use. Clear to auscultation. Breath sounds equal bilaterally. GASTROINTESTINAL: Abdomen soft, non-tender, nondistended. Hepatic and splenic margins not palpable. MUSCULOSKELETAL: Extremities without clubbing, cyanosis, or edema. No obvious deformities. NEUROLOGICAL: Awake and alert. No obvious cranial nerve deficits. Motor grossly within normal limits. Five out of 5 muscle strength in the arms and legs. Normal speech. PSYCHIATRIC: Appropriate mood and affect; insight and judgment normal. Assessment and Plan Problem List: (1) SVT (supraventricular tachycardia) ICD Codes: I47.1 - Supraventricular tachycardia (2) Afib ICD Codes: I48.91 - Unspecified atrial fibrillation (3) Failure to thrive in adult ICD Codes: R62.7 - Adult failure to thrive Status: Acute Assessment and Plan 1) SVT/AF Con't on Amio/Cardizem/Digoxin Potent combination of medications, will attempt to stop Digoxin If further elevated heart rates will place back on Digoxin Amiodarone to keep him in NSR as difficult to control No an anti-coagulation candidate due to anemia 2) Anemia 3) Hyponatremia 4) Failure to thrive Gunner Martin DO Oct 01, 2017 12:17
--- NOTE | 2017-10-01 13:31 | HHI.GIFU ---
Subjective Remarks Pt in bedside chair Per RN pt has not been eating much on a diabetic diet, so per Dr. Torre pt able to order anything he wants if it helps with appetite Pt ordered tuna sandwich for lunch, has not come yet Pt with no GI complaints at this time Denies nausea, vomiting, abdominal pain No BM since EGD yesterday (Helen Sahni) Objective Vitals I&O Vital Signs Date Time Temp Pulse Resp B/P (MAP) Pulse Ox O2 Delivery O2 Flow Rate FiO2 10/01/17 11:20 98.4 98 18 109/68 (82) 98 10/01/17 07:46 98.0 91 16 110/63 (79) 98 10/01/17 06:00 80 10/01/17 05:00 83 10/01/17 04:00 92 10/01/17 04:00 90 10/01/17 03:47 98.0 89 18 135/72 (93) 96 10/01/17 03:00 90 10/01/17 02:00 88 10/01/17 01:00 90 10/01/17 00:00 98.1 91 18 164/83 (110) 96 10/01/17 00:00 90 10/01/17 00:00 90 09/30/17 23:00 90 09/30/17 22:00 92 09/30/17 21:00 86 09/30/17 20:00 97.8 86 18 142/70 (94) 98 09/30/17 20:00 86 09/30/17 20:00 84 09/30/17 19:00 84 09/30/17 18:00 86 09/30/17 17:40 18 09/30/17 17:00 84 09/30/17 16:00 74 09/30/17 15:10 72 18 130/67 (88) 100 Room Air 09/30/17 15:00 98.6 72 16 119/64 (82) 98 09/30/17 15:00 70 09/30/17 14:45 68 16 120/62 (81) 96 Room Air 09/30/17 14:32 98.5 65 16 111/56 (74) 96 Nasal Cannula 2 09/30/17 13:30 09/30/17 13:30 99.0 79 16 138/62 (87) 96 I/O 09/30/17 09/30/17 09/30/17 10/01/17 10/01/17 10/01/17 07:00 15:00 23:00 07:00 15:00 23:00 Intake Total 490 ml 200 ml 240 ml 960 ml Output Total 2200 ml 2200 ml 1000 ml Balance -1710 ml 200 ml -1960 ml -40 ml Intake Oral 240 ml 240 ml 960 ml IV Total 250 ml Other 200 ml Output Urine Total 2200 ml 2200 ml 1000 ml Laboratory Date/Time Source Procedure Growth Status 09/25/17 23:30 Stool Stool Stool Occult Blood (MISSAEL) - Final HEMOCCULT NEGATIVE Complete Imaging Last Impressions Abdomen/Pelvis CT 09/30/17 0000 Signed Impressions: Service Date/Time: Sunday, October 01, 2017 00:07 - CONCLUSION: 1. No obstruction or acute inflammatory changes are demonstrated. 2. Nonspecific distention of the stomach. 3. Considerable stool throughout the colon. Nonspecific slight ascites. There is also body wall edema/anasarca and trace bibasilar pleural effusions. 4. A few scattered benign cysts of both kidneys. 5. Probable left adrenal adenomas. 6. Nonobstructing stones of the left kidney. 7. Atherosclerosis of the abdominal aorta. 8. Sigmoid colon diverticulosis without evidence of diverticulitis. 9. Nonacute appearing subchondral fragmentation/collapse of the right femoral head. Hipolito Ryder MD Chest X-Ray 09/23/171920 Signed Impressions: Service Date/Time: Saturday, September 23, 2017 19:35 - CONCLUSION: 1. No active disease. Nicholas Jacobsen MD Physical Exam HEENT: Normocephalic; atraumatic CHEST: Even/unlabored CARDIAC: RRR ABDOMEN: Soft, nondistended, nontender; bowel sounds active SKIN: Normal; no rash; no jaundice. FILLING HAND: Alert and oriented times three. (Helen Sahni) Assessment and Plan Plan Assessment: - Anemia - H/H 9.3/27.8 on admission 09/23 and dropped to 6.3/18.3 on 09/28. No obvious bleeding, Hemoccult stool negative. EGD (08/29/17) --> There was LA Class B esophagitis noted. Small hiatal hernia. Three medium sized ulcers were found in the gastric antrum; biopsies were taken. Large non-bleeding ulcer was found in the 2nd part of the duodenum. Colonoscopy (08/29/17) --> Diverticulum in the sigmoid colon and descending colon. Large sized circumferential colitis was found in the sigmoid colon, descending colon, at the splenic flexure, in the transverse colon, at the hepatic flexure, and in the ascending colon; The mucosa was edematous, erythematous, friable, ulcerated and oozing blood; multiple biopsies were performed using cold forceps - SVT cardiology following- anticoagulation on hold because of anemia. Oral amiodarone. Cardiology following. (10/01) S/P EGD yesterday --> Duodenitis second portion-biopsy. Gastritis antrum- biopsy. Esophagitis distal esophagus-biopsy. Retroflexed views revealed a hiatal hernia. CT abdomen and pelvis W IV contrast (10/01) --> 1. No obstruction or acute inflammatory changes are demonstrated. Nonspecific distention of the stomach. Considerable stool throughout the colon. Nonspecific slight ascites. There is also body wall edema/anasarca and trace bibasilar pleural effusions. A few scattered benign cysts of both kidneys. Probable left adrenal adenomas. Nonobstructing stones of the left kidney. Atherosclerosis of the abdominal aorta. Sigmoid colon diverticulosis without evidence of diverticulitis. Nonacute appearing subchondral fragmentation/collapse of the right femoral head. Per RN pt has not been eating much on the diabetic diet so Dr. Torre said pt can order any food he would like to see if he eats more, pt ordered tuna sandwich has not come yet. H/H stable currently 10.7/31.6- 2 U PRBCs on 09/28 Plan: EGD biopsy pending SAMIA Magnesium Citrate now Bowel regimen Repeat flex sig later this week Further recommendations based on clinical course Pt has been seen and examined by myself and Dr. Howard and this note is written on her behalf (Helen Sahni) Physician Comments seen, examined agree with above hematology evaluation appreciated we will repeat flexisigmoidoscopy this week possible , patient thinking about it for now (Tierney Howard MD) Helen Sahni Oct 01, 2017 13:31 Tierney Howard MD Oct 01, 2017 17:31
[2017-10-01] MEDS ORDERED: MAGNESIUM CITRATE SOLN 300 ML BTL PO ONE (13:45)
--- NOTE | 2017-10-01 16:34 | MB ---
cc: Jerry Kauffman MD DATE: 10/01/2017 REASON FOR CONSULTATION: Patient with significant anemia. HISTORY OF PRESENT ILLNESS: This is an 86-year-old male who has a history of osteoarthritis, hypertension, diabetes, anemia, right-sided hip fracture, underwent hip repair approximately 1 year ago, who was brought to the emergency room after a fall and hip pain. He was found to be severely anemic. He has been transfused packed red blood cells. The patient has had recent admission to the hospital in August when he was brought to the emergency room via EMS after he was found to be confused. He had a fall at that time. He was found to be in rhabdomyolysis. He was severely anemic and anemia studies revealed iron deficiency. He has been living by himself with no family support. At that time, he appeared quite malnourished and had not been eating well for several days. The patient was eventually discharged from the hospital. He now presents to the emergency room after his neighbor called because of inability to care for himself. The patient states that he has been having right-sided hip pain as well. He had an EGD and colonoscopy on 08/30/2017 which showed 3 gastric ulcers and 1 large nonbleeding duodenal ulcer. He was also found to have esophagitis and circumferential patch colitis with friable tissue oozing blood. The patient is currently being seen by Gastroenterology. On this admission, the patient's hemoglobin was 6.3. He has been given 2 units of packed red blood cells. His hemoglobin is now 10.7. He still remains iron deficient; however, his ferritin is elevated at 849, which is likely due to acute inflammation. The patient is also currently being seen by Cardiology since he recently had an SVT and atrial flutter. He is on amiodarone, Cardizem and digoxin. REVIEW OF SYSTEMS: A comprehensive review of systems was completed which is negative except as described in the HPI. PAST MEDICAL HISTORY: Anemia, hypertension, diabetes, osteoarthritis. PAST SURGICAL HISTORY: Right hip surgery. FAMILY HISTORY: Reviewed and is noncontributory to this admission. SOCIAL HISTORY: The patient lives by himself. He does not smoke cigarettes. He does not drink alcohol. No illicit drug use. MEDICATIONS: 1. Cardizem 30 mg p.o. q. 6 hours p.r.n. 2. Amiodarone 200 mg p.o. daily. 3. [place] 5/325 one tablet p.o. q. 6 hours p.r.n. 4. Lopressor 5 mg IV p.r.n. 5. Metformin 1500 mg. 6. Glipizide 10 mg p.o. b.i.d. 7. Megace 400 mg p.o. daily. 8. Iron sulfate 325 mg p.o. daily. 9. Folic acid 1 mg p.o. daily. 10. Gabapentin 300 mg p.o. daily. 11. Pravastatin 40 mg p.o. daily. 12. Sitagliptin 100 mg p.o. daily. 13. Lactobacillus. 14. Insulin per sliding scale. 15. Zofran p.r.n. ALLERGIES: NO KNOWN DRUG ALLERGIES. PHYSICAL EXAMINATION: VITAL SIGNS: Blood pressure is 109/68, pulse is in the 90s. Temperature is 98.4. O2 saturations are 98% on room air. GENERAL: Cachectic, thin, elderly male, who is quite frail and appears malnourished. HEENT: Pupils are equal, round, reactive to light. EOMI. No thrush. No lesions. NECK: Supple. No JVD. No bruits. No lymphadenopathy. CHEST: Clear to auscultation bilaterally. CARDIAC: S1, S2. Regular rate and rhythm. ABDOMEN: Soft, nontender, nondistended. Bowel sounds are present. EXTREMITIES: Without any edema, erythema or cyanosis. He does have right-sided hip pain. NEUROLOGIC: No focal deficits. PSYCHIATRIC: Mood and affect is appropriate. LABORATORY DATA: WBC is 11.3, hemoglobin is 10.7, platelet count is 569. Serum chemistry: Sodium 133, potassium 3.6, chloride 103, BUN is 9, creatinine is 0.32, GFR is 264. Iron is 51, TIBC 190, percent saturation is 26.8. Ferritin is 849. Total CK is 38. TSH is elevated at 5.05. IMAGING: CT of the abdomen and pelvis was obtained which did not show any obstruction or acute inflammatory process. There was considerable stool throughout the colon. There was slight ascites. There was a left adrenal adenoma. There was a nonobstructing stone in the left kidney, a atherosclerosis of the abdominal aorta, sigmoid colon diverticulosis without evidence of diverticulitis. Chest x-ray showed no acute cardiopulmonary disease. X-ray of the hip and pelvis showed no acute fracture in the right hip. There was a lucency to the pubic symphysis which was artifactual versus nondisplaced fracture. ASSESSMENT AND PLAN: This is an elderly, frail 86-year-old male who appears debilitated. He was brought to the emergency room after he was found to be unable to take care of himself. 1. Anemia. He has a history of severe iron deficiency. He did receive iron infusions; however, he did not followup outpatient. He has been given 2 units of packed red blood cells. He will need additional iron infusions as an outpatient. Anemia study shows iron deficiency with also anemia of chronic inflammation. His hemoglobin is 10.7 at this time. His TSH is elevated. This will need to be repeated in a few weeks to confirm that he has hypothyroidism. He will need thyroid replacement. The patient is unable to take care of himself at home. He does not have any family support. He appears malnourished. He will need to go to some sort of facility after his hospital discharge since I do not think that this patient can take care of himself. 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 3. Question gastrointestinal bleeding. The patient is currently being seen by Gastroenterology. He has undergone EGD. There was duodenitis in the second portion of the biopsy. Gastric antrum biopsies pending. There was no evidence of overt bleeding. Further workup per GI. He was found to have an erythematous friable ulcerated area in his colon with some oozing blood. This could be possible source of bleeding. 4. SVT/atrial flutter, currently being seen by Cardiology. 5. Malnutrition and cachexia. Dietitian consult focused on nutrition. Thank you for allowing me to participate in the care of this patient. I will continue to follow this patient along. MD CECILIA Delaney/KAUSHAL , 03:47 PM , 04:32 PM
--- NOTE | 2017-10-01 16:59 | HHI.PR ---
Subjective Remarks Patient is a very picky eater. He found happiness finally when he received a tuna sandwich and soup. Objective Vitals Vital Signs Date Time Temp Pulse Resp B/P (MAP) Pulse Ox O2 Delivery O2 Flow Rate FiO2 10/01/17 15:00 82 10/01/17 14:00 88 10/01/17 13:00 92 10/01/17 12:00 92 10/01/17 11:20 98.4 98 18 109/68 (82) 98 10/01/17 11:00 84 10/01/17 10:00 94 10/01/17 09:00 106 10/01/17 08:00 94 10/01/17 07:46 98.0 91 16 110/63 (79) 98 10/01/17 07:00 79 10/01/17 06:00 80 10/01/17 05:00 83 10/01/17 04:00 92 10/01/17 04:00 90 10/01/17 03:47 98.0 89 18 135/72 (93) 96 10/01/17 03:00 90 10/01/17 02:00 88 10/01/17 01:00 90 10/01/17 00:00 98.1 91 18 164/83 (110) 96 10/01/17 00:00 90 10/01/17 00:00 90 09/30/17 23:00 90 09/30/17 22:00 92 09/30/17 21:00 86 09/30/17 20:00 97.8 86 18 142/70 (94) 98 09/30/17 20:00 86 09/30/17 20:00 84 09/30/17 19:00 84 09/30/17 18:00 86 09/30/17 17:40 18 09/30/17 17:00 84 I/O 09/30/17 09/30/17 09/30/17 10/01/17 10/01/17 10/01/17 07:00 15:00 23:00 07:00 15:00 23:00 Intake Total 490 ml 200 ml 240 ml 960 ml Output Total 2200 ml 2200 ml 1000 ml Balance -1710 ml 200 ml -1960 ml -40 ml Intake Oral 240 ml 240 ml 960 ml IV Total 250 ml Other 200 ml Output Urine Total 2200 ml 2200 ml 1000 ml Result Diagram: 09/30/1715 09/30/1715 Objective Remarks GENERAL: Weak appearing elderly man SKIN: Warm and dry. HEAD: Normocephalic. EYES: No scleral icterus. No injection or drainage. NECK: Supple, trachea midline. No JVD or lymphadenopathy. CARDIOVASCULAR: Intermittent sinus tachycardia without murmurs, gallops, or rubs. RESPIRATORY: Mild atelectasis in bases bilaterally. No accessory muscle use. GASTROINTESTINAL: Abdomen soft, non-tender, nondistended. EXTREMITIES: No cyanosis, or edema. NEUROLOGICAL: Awake, alert, and oriented x 3. Non-focal. Procedures none A/P Problem List: (1) Self-care deficit in patient living alone ICD Code: R46.89 - Other symptoms and signs involving appearance and behavior Status: Acute (2) DM (diabetes mellitus) ICD Code: E11.9 - Type 2 diabetes mellitus without complications Status: Chronic (3) Dehydration ICD Code: E86.0 - Dehydration Status: Resolved (4) Hyponatremia ICD Code: E87.1 - Hypo-osmolality and hyponatremia Status: Resolved (5) Failure to thrive in adult ICD Code: R62.7 - Adult failure to thrive Status: Acute (6) Generalized weakness ICD Code: R53.1 - Weakness Status: Acute (7) Hyperlipidemia ICD Code: E78.5 - Hyperlipidemia, unspecified Status: Chronic (8) Severe protein-calorie malnutrition ICD Code: E43 - Unspecified severe protein-calorie malnutrition Status: Acute Assessment and Plan Patient is a 86-year-old male admitted for failure to thrive SVT with occasional PAF Continue beta-rina and calcium channel rina. / Digoxin PRN Continue p.o. amiodarone today Remaining stable on PO meds Appreciate cardiology consult Hypoglycemia Single episode when NPO for procedure. Resolved. Glipizide held. Anemia, S/P 2 units RBC Endoscopy today showed only gastritis Continue PPI Appreciate GI consult Failure to thrive Poor ability to care for himself at home, though he has had 2 poor experiences at residential facilities where he lost 60 pounds in matter of months Continue PT Severe protein calorie malnutrition Mild dehydration IVF for hydration provided Pt is at high nutrition risk r/t FTT and recent wt loss w/low BMI 17.4. MDC for Calorie Count started today 04/10/18 through 09/27/17 w/Nutrition Recs to Follow 09/27/17. Send Gus Rosenbaum tid to offer 220 kcal and 10g Protein per serving. [place] pt's food preferences. Continue Megace Hyponatremia, sodium trending up TSH shows borderline elevation, due to weight loss will hold treatment Sodium is nearing normal at 133, patient is no longer symptomatic Type 2 diabetes Accu-Cheks with sliding scale insulin coverage Diabetic diet DVT prophylaxis SCDs Discharge Planning Patient is stable on PO meds from a cardiac standpoint and can be transferred to Med/Surg He will likely need SNF placement on discharge, but, he will not be happy about that Problem Qualifiers (1) DM (diabetes mellitus): Qualified Codes: E11.42 - Type 2 diabetes mellitus with diabetic polyneuropathy (2) Hyperlipidemia: Qualified Codes: E78.5 - Hyperlipidemia, unspecified uDstin Torre MD Oct 01, 2017 16:59
[2017-10-01] MEDS: ACETAMINOPHEN/HYDROcodone 325 MG/5 MG TAB PO PRN ×2 (17:23→23:24)
[2017-10-02] VITALS (14 sets, daily range): BP systolic 113–147; BP diastolic 51–67; PULSE 68–84; RESP 16–22; TEMP 97.5–98.1; O2SAT 96–100
[2017-10-02] MEDS: SODIUM CHLOR 0.9% 1000 ML INJ 1,000 ML IV SCH (03:55)
[2017-10-02] MEDS: POTASSIUM PHOSPHATE/SODIUM PHOSPHATE 250 MG TAB PO SCH ×4 (05:33→23:50)
[2017-10-02] MEDS: DILTIAZEM HCL 30 MG TAB PO SCH ×4 (05:34→23:51)
[2017-10-02] MEDS: ACETAMINOPHEN/HYDROcodone 325 MG/5 MG TAB PO PRN ×4 (05:35→23:50)
[2017-10-02 06:44] LABS: HEMATOCRIT 33.2 % (39.0-51.0); HEMOGLOBIN 10.9 GM/DL (13.0-17.0); MEAN CELL VOLUME 91.7 FL (80.0-100.0); MEAN CORPUSCULAR HEMOGLOBIN 30.1 PG (27.0-34.0); MEAN CORPUSCULAR HGB CONC 32.8 % (32.0-36.0); MEAN PLATELET VOLUME 6.7 FL (7.0-11.0); PLATELET COUNT 582 TH/MM3 (150-450); RED BLOOD COUNT 3.62 MIL/MM3 (4.50-5.90); RED CELL DISTRIBUTION WIDTH 18.1 % (11.6-17.2); WHITE BLOOD COUNT 11.6 TH/MM3 (4.0-11.0)
[2017-10-02 07:34] LABS: BICARBONATE 24.7 MEQ/L (21.0-32.0); CALCIUM 8.2 MG/DL (8.5-10.1); CREATININE 0.51 MG/DL (0.60-1.30)
[2017-10-02] MEDS: FOLIC ACID 1 MG TAB PO SCH (08:29)
[2017-10-02] MEDS: MEGESTROL ACETATE SUSP 400 MG/10 ML CUP PO SCH (08:29)
[2017-10-02] MEDS: AMIODARONE 200 MG TAB PO SCH (08:29)
[2017-10-02] MEDS: LACTOBACILLUS ACIDOPHILUS TAB PO SCH (08:29)
[2017-10-02] MEDS: GABAPENTIN 300 MG CAP PO SCH (08:29)
[2017-10-02] MEDS: PRAVASTATIN SOD 40 MG TAB PO SCH (08:29)
[2017-10-02] MEDS: FERROUS SULFATE 325 MG (65 MG ELEMENTAL IRON) TAB PO SCH (08:29)
[2017-10-02] MEDS: INSULIN ASPART SUPPLEMENTAL SCALE SQ SCH ×4 (08:29→20:49)
[2017-10-02] MEDS: SODIUM CHLORIDE 0.9% FLUSH 10 ML FLUSH IV FLUSH SCH ×2 (08:30→20:50)
[2017-10-02] MEDS: metFORMIN HCL 500 MG TAB PO SCH (08:33)
--- NOTE | 2017-10-02 11:14 | HHI.GIFU ---
Subjective Remarks Pt had 4 BM over night, soft, no sign of blood, not black and tarry. Pt is still not sure about proceeding with a flex sig. He loves the tuna sandwiches here. ate eggs for breakfast. 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 (Hannah Olmedo) Objective Vitals I&O Vital Signs Date Time Temp Pulse Resp B/P (MAP) Pulse Ox O2 Delivery O2 Flow Rate FiO2 10/02/17 07:38 97.5 76 19 113/67 (82) 100 10/02/17 07:00 70 10/02/17 06:20 70 10/02/17 05:30 68 10/02/17 04:00 74 10/02/17 03:09 97.8 76 18 120/63 (82) 99 10/02/17 03:00 77 10/02/17 02:00 76 10/02/17 01:00 84 10/02/17 00:26 18 10/02/17 00:00 78 10/01/17 23:18 98.1 82 19 121/56 (77) 99 10/01/17 23:00 80 10/01/17 22:00 80 10/01/17 21:46 98.0 75 19 130/70 (90) 97 10/01/17 21:00 82 10/01/17 20:00 80 10/01/17 19:00 82 10/01/17 18:00 86 10/01/17 17:00 88 10/01/17 16:00 84 10/01/17 15:09 98.2 88 18 126/69 (88) 98 10/01/17 15:00 82 10/01/17 14:00 88 10/01/17 13:00 92 10/01/17 12:00 92 10/01/17 11:20 98.4 98 18 109/68 (82) 98 I/O 10/01/17 10/01/17 10/01/17 10/02/17 10/02/17 10/02/17 07:00 15:00 23:00 07:00 15:00 23:00 Intake Total 960 ml 1100 ml 120 ml Output Total 1000 ml 1600 ml 525 ml Balance -40 ml -500 ml -405 ml Intake Oral 960 ml 1100 ml 120 ml Output Urine Total 1000 ml 1600 ml 525 ml # Bowel Movements 4 Laboratory Laboratory Tests Test 10/02/17 05:46 White Blood Count 11.6 Red Blood Count 3.62 Hemoglobin 10.9 Hematocrit 33.2 Mean Corpuscular Volume 91.7 Mean Corpuscular Hemoglobin 30.1 Mean Corpuscular Hemoglobin Concent 32.8 Red Cell Distribution Width 18.1 Platelet Count 582 Mean Platelet Volume 6.7 Blood Urea Nitrogen 10 Creatinine 0.51 Random Glucose 161 Calcium Level 8.2 Sodium Level 129 Potassium Level 4.2 Chloride Level 97 Carbon Dioxide Level 24.7 Anion Gap 7 Estimat Glomerular Filtration Rate 154 Date/Time Source Procedure Growth Status 09/25/17 23:30 Stool Stool Stool Occult Blood (MISSAEL) - Final HEMOCCULT NEGATIVE Complete Imaging Last Impressions Abdomen/Pelvis CT 09/30/17 0000 Signed Impressions: Service Date/Time: Sunday, October 01, 2017 00:07 - CONCLUSION: 1. No obstruction or acute inflammatory changes are demonstrated. 2. Nonspecific distention of the stomach. 3. Considerable stool throughout the colon. Nonspecific slight ascites. There is also body wall edema/anasarca and trace bibasilar pleural effusions. 4. A few scattered benign cysts of both kidneys. 5. Probable left adrenal adenomas. 6. Nonobstructing stones of the left kidney. 7. Atherosclerosis of the abdominal aorta. 8. Sigmoid colon diverticulosis without evidence of diverticulitis. 9. Nonacute appearing subchondral fragmentation/collapse of the right femoral head. Hipolito Ryder MD Chest X-Ray 09/23/171920 Signed Impressions: Service Date/Time: Saturday, September 23, 2017 19:35 - CONCLUSION: 1. No active disease. Nicholas Jacobsen MD Physical Exam HEENT: Normocephalic; atraumatic CHEST: diminished, shallow CARDIAC: RRR ABDOMEN: Soft, nondistended, nontender; bowel sounds active SKIN: Normal; no rash; no jaundice. ENGRAVER SIGNATURE: Alert and oriented times three. (Hannah Olmedo) Assessment and Plan Plan Assessment: - Anemia - H/H 9.3/27.8 on admission 09/23 and dropped to 6.3/18.3 on 09/28. No obvious bleeding, Hemoccult stool negative. EGD (08/29/17) --> There was LA Class B esophagitis noted. Small hiatal hernia. Three medium sized ulcers were found in the gastric antrum; biopsies were taken. Large non-bleeding ulcer was found in the 2nd part of the duodenum. Colonoscopy (08/29/17) --> Diverticulum in the sigmoid colon and descending colon. Large sized circumferential colitis was found in the sigmoid colon, descending colon, at the splenic flexure, in the transverse colon, at the hepatic flexure, and in the ascending colon; The mucosa was edematous, erythematous, friable, ulcerated and oozing blood; multiple biopsies were performed using cold forceps - SVT cardiology following- anticoagulation on hold because of anemia. Oral amiodarone. Cardiology following. (10/01) S/P EGD yesterday --> Duodenitis second portion-biopsy. Gastritis antrum- biopsy. Esophagitis distal esophagus-biopsy. Retroflexed views revealed a hiatal hernia. CT abdomen and pelvis W IV contrast (10/01) --> 1. No obstruction or acute inflammatory changes are demonstrated. Nonspecific distention of the stomach. Considerable stool throughout the colon. Nonspecific slight ascites. There is also body wall edema/anasarca and trace bibasilar pleural effusions. A few scattered benign cysts of both kidneys. Probable left adrenal adenomas. Nonobstructing stones of the left kidney. Atherosclerosis of the abdominal aorta. Sigmoid colon diverticulosis without evidence of diverticulitis. Nonacute appearing subchondral fragmentation/collapse of the right femoral head. Per RN pt has not been eating much on the diabetic diet so Dr. Torre said pt can order any food he would like to see if he eats more, pt ordered tuna sandwich has not come yet. H/H stable currently 10.7/31.6- 2 U PRBCs on 09/2810/02/17 HH is stable. he is eating a bit more, likes tuna sandwiches. d/w him importance of doing PT/OT. bx still pending. had 4 x BM last night, nonbloody, soft. Unsure about flex sig. Plan: await bx [facility] supportive care Pt has been seen and examined by myself and Dr. Howard and this note is written on her behalf (Hannah Olmedo) Physician Comments seen, examined agree with above will consent with flexisigmoidoscopy (Tierney Howard MD) Hannah Olmedo Oct 02, 2017 11:14 Tierney Howard MD Oct 02, 2017 15:44
--- NOTE | 2017-10-02 12:55 | PD.ONC.PN ---
Subjective Subjective Remarks Afebrile Patient reports he continues to have pain in his right hip States he has a sore throat from endoscopy yesterday No bleeding Denies dizziness or shortness of breath Objective Data Date Time Temp Pulse Resp B/P (MAP) Pulse Ox O2 Delivery O2 Flow Rate FiO2 10/02/17 11:16 98.1 74 18 119/51 (73) 100 10/02/17 07:38 97.5 76 19 113/67 (82) 100 10/02/17 07:00 70 10/02/17 06:20 70 10/02/17 05:30 68 10/02/17 04:00 74 10/02/17 03:09 97.8 76 18 120/63 (82) 99 10/02/17 03:00 77 10/02/17 02:00 76 10/02/17 01:00 84 10/02/17 00:26 18 10/02/17 00:00 78 10/01/17 23:18 98.1 82 19 121/56 (77) 99 10/01/17 23:00 80 10/01/17 22:00 80 10/01/17 21:46 98.0 75 19 130/70 (90) 97 10/01/17 21:00 82 10/01/17 20:00 80 10/01/17 19:00 82 10/01/17 18:00 86 10/01/17 17:00 88 10/01/17 16:00 84 10/01/17 15:09 98.2 88 18 126/69 (88) 98 10/01/17 15:00 82 10/01/17 14:00 88 10/01/17 13:00 92 10/02/17 10/02/17 10/02/17 07:00 15:00 23:00 Intake Total 120 ml Output Total 525 ml Balance -405 ml Result Diagram: 10/02/17 0546 10/02/1746 Laboratory Results Laboratory Tests Test 10/02/17 05:46 White Blood Count 11.6 TH/MM3 Red Blood Count 3.62 MIL/MM3 Hemoglobin 10.9 GM/DL Hematocrit 33.2 % Mean Corpuscular Volume 91.7 FL Mean Corpuscular Hemoglobin 30.1 PG Mean Corpuscular Hemoglobin Concent 32.8 % Red Cell Distribution Width 18.1 % Platelet Count 582 TH/MM3 Mean Platelet Volume 6.7 FL Blood Urea Nitrogen 10 MG/DL Creatinine 0.51 MG/DL Random Glucose 161 MG/DL Calcium Level 8.2 MG/DL Sodium Level 129 MEQ/L Potassium Level 4.2 MEQ/L Chloride Level 97 MEQ/L Carbon Dioxide Level 24.7 MEQ/L Anion Gap 7 MEQ/L Estimat Glomerular Filtration Rate 154 ML/MIN Administered Medications Medications (Trade) Dose Ordered Sig/Rodrigo Route PRN Reason Start Time Stop Time Status Last Admin Dose Admin Sodium Chloride (NS Flush) 2 ml BID IV FLUSH 09/24/17 09:00 10/02/17 08:30 Acetaminophen (Tylenol) 650 mg Q4H PRN PO TEMP > 100.4 09/23/17 23:45 09/28/17 19:30 Dextrose (D50w (Vial) Inj) 50 ml UNSCH PRN IV PUSH HYPOGLYCEMIA-SEE COMMENTS 09/23/17 23:45 09/30/17 09:13 Insulin Aspart (NovoLOG SUPPLEMENTAL SCALE) 1 ACHS SLIDING SCALE SQ 09/24/17 08:00 10/02/17 12:15 Ferrous Sulfate (Ferrous Sulfate) 325 mg DAILY PO 09/25/17 09:00 10/02/17 08:29 Folic Acid (Folate) 1 mg DAILY PO 09/25/17 09:00 10/02/17 08:29 Gabapentin (Neurontin) 300 mg DAILY PO 09/25/17 09:00 10/02/17 08:29 Pravastatin Sodium (Pravachol) 40 mg DAILY PO 09/25/17 09:00 10/02/17 08:29 Sitagliptin Phosphate (Januvia) 100 mg DAILY PO 09/25/17 09:00 Future hold 10/02/17 08:29 Lactobacillus Acidophilus (Lactinex) 1 tab DAILY PO 09/25/17 09:00 10/02/17 08:29 Megestrol Acetate (Megace Liq) 400 mg DAILY PO 09/26/17 10:30 10/02/17 08:29 Potassium Phos/ Sodium Phos (K-Phos Neutral) 250 mg Q6HR PO 09/26/17 12:45 10/02/17 12:14 Metformin HCl (Glucophage) 1,500 mg AC BREAKFAST PO 09/27/17 07:00 10/02/17 08:33 Metoprolol Tartrate (Lopressor Inj) 5 mg Q5M PRN IV PUSH HR >130 09/28/17 09:45 09/29/17 08:37 Sodium Chloride 1,000 ml @ 30 mls/hr Q24H IV 09/28/17 10:30 10/02/17 03:55 Amiodarone HCl 450 mg/Sodium Chloride 250 ml @ 33.33 mls/ hr Q7H31M PRN IV Per Protocol 09/28/17 12:00 09/30/17 03:39 Acetaminophen/ Hydrocodone Bitart ([place] 5-325 Mg) 1 tab Q6H PRN PO back pain 1-10 09/29/17 14:30 10/02/17 05:35 Amiodarone HCl (Cordarone) 200 mg DAILY PO 09/30/17 11:30 10/02/17 08:29 Diltiazem HCl (Cardizem) 30 mg Q6HR PO 09/30/17 12:00 10/02/17 12:14 Objective Remarks GENERAL: Elderly male resting in bed in no obvious distress. SKIN: Warm and dry. HEAD: Normocephalic. EYES: No injection or drainage. NECK: Supple, trachea midline. CARDIOVASCULAR: Regular rate and rhythm without murmurs. RESPIRATORY: Breath sounds equal bilaterally. No accessory muscle use. GASTROINTESTINAL: Abdomen soft, non-tender, nondistended. EXTREMITIES: No cyanosis, or edema. MUSCULOSKELETAL: Muscle wasting NEUROLOGICAL: No obvious focal deficit. Awake, alert, and oriented x3. Assessment/Plan Problem List: (1) Anemia ICD Codes: D64.9 - Anemia, unspecified Status: Acute Plan: --Endoscopy in 10/01 showed duodenitis, gastritis and esophagitis --Patient has a history of severe deficiency and received inpatient during last admission; he did not follow-up in clinic. --Ferritin elevated this admission shows evidence of acute inflammation --We will repeat iron studies outpatient (2) Severe protein-calorie malnutrition ICD Codes: E43 - Unspecified severe protein-calorie malnutrition Status: Acute Plan: --Dietitian consulted --Hypoalbuminemia Assessment 86 y/o male with history of anemia admitted for failure to thrive and again found to be severely anemic Plan 1. Monitor CBC 2. Transfuse for hemoglobin less than 8 3. Consult dietary for nutrition Attending Statement The exam, history, and the medical decision-making described in the above note were completed with the assistance of the mid-level provider. I reviewed and agree with the findings presented. I attest that I had a [id number] encounter with the patient on the same day, and personally performed and documented my assessment and findings in the medical record. Rosie Carroll Oct 02, 2017 12:55 Jerry Kauffman MD Oct 02, 2017 22:09
--- NOTE | 2017-10-02 15:17 | PD.CARD.PN ---
Subjective Subjective Remarks No events overnight No chest pain/SOB Not eating well overall Telemetry with no arrhythmias Objective Medications Current Medications Medications (Trade) Dose Ordered Sig/Rodrigo Route Start Time Stop Time Status Last Admin (NS Flush) 2 ml UNSCH PRN IV FLUSH 09/23/17 23:45 (NS Flush) 2 ml BID IV FLUSH 09/24/17 09:00 10/02/17 08:30 (Tylenol) 650 mg Q4H PRN PO 09/23/17 23:45 09/28/17 19:30 (Zofran Inj) 4 mg Q6H PRN IVP 09/23/17 23:45 (Narcan Inj) 0.4 mg UNSCH PRN IV PUSH 09/23/17 23:45 (D50w (Vial) Inj) 50 ml UNSCH PRN IV PUSH 09/23/17 23:45 09/30/17 09:13 (Glucagon Inj) 1 mg UNSCH PRN OTHER 09/23/17 23:45 (NovoLOG SUPPLEMENTAL SCALE) 1 ACHS SLIDING SCALE SQ 09/24/17 08:00 10/02/17 12:15 (Ferrous Sulfate) 325 mg DAILY PO 09/25/17 09:00 10/02/17 08:29 (Folate) 1 mg DAILY PO 09/25/17 09:00 10/02/17 08:29 (Neurontin) 300 mg DAILY PO 09/25/17 09:00 10/02/17 08:29 (Pravachol) 40 mg DAILY PO 09/25/17 09:00 10/02/17 08:29 (Januvia) 100 mg DAILY PO 09/25/17 09:00 Future hold 10/02/17 08:29 (Lactinex) 1 tab DAILY PO 09/25/17 09:00 10/02/17 08:29 (Megace Liq) 400 mg DAILY PO 09/26/17 10:30 10/02/17 08:29 (K-Phos Neutral) 250 mg Q6HR PO 09/26/17 12:45 10/02/17 12:14 (Glucophage) 1,500 mg AC BREAKFAST PO 09/27/17 07:00 10/02/17 08:33 (Lopressor Inj) 5 mg Q5M PRN IV PUSH 09/28/17 09:45 4/15/18 08:37 Sodium Chloride 1,000 ml @ 30 mls/hr Q24H IV 09/28/17 10:30 10/02/17 03:55 Amiodarone HCl 450 mg/Sodium Chloride 250 ml @ 33.33 mls/ hr Q7H31M PRN IV 09/28/17 12:00 09/30/17 03:39 ([place] 5-325 Mg) 1 tab Q6H PRN PO 09/29/17 14:30 10/02/17 12:51 (Cordarone) 200 mg DAILY PO 09/30/17 11:30 10/02/17 08:29 (Cardizem) 30 mg Q6HR PO 09/30/17 12:00 10/02/17 12:14 Vital Signs / I&O Vital Signs Date Time Temp Pulse Resp B/P (MAP) Pulse Ox O2 Delivery O2 Flow Rate FiO2 10/02/17 12:53 97.6 79 16 130/59 (82) 96 10/02/17 11:16 98.1 74 18 119/51 (73) 100 10/02/17 07:38 97.5 76 19 113/67 (82) 100 10/02/17 07:00 70 10/02/17 06:20 70 10/02/17 05:30 68 10/02/17 04:00 74 10/02/17 03:09 97.8 76 18 120/63 (82) 99 10/02/17 03:00 77 10/02/17 02:00 76 10/02/17 01:00 84 10/02/17 00:26 18 10/02/17 00:00 78 10/01/17 23:18 98.1 82 19 121/56 (77) 99 10/01/17 23:00 80 10/01/17 22:00 80 10/01/17 21:46 98.0 75 19 130/70 (90) 97 10/01/17 21:00 82 10/01/17 20:00 80 10/01/17 19:00 82 10/01/17 18:00 86 10/01/17 17:00 88 10/01/17 16:00 84 I/O 10/01/17 10/01/17 10/01/17 10/02/17 10/02/17 10/02/17 06:59 14:59 22:59 06:59 14:59 22:59 Intake Total 960 ml 1100 ml 120 ml Output Total 1000 ml 1600 ml 525 ml Balance -40 ml -500 ml -405 ml Intake Oral 960 ml 1100 ml 120 ml Output Urine Total 1000 ml 1600 ml 525 ml # Bowel Movements 4 Physical Exam GENERAL: NAD, AAOx3 SKIN: Warm and dry. HEAD: Atraumatic. Normocephalic. EYES: Pupils equal and round. No scleral icterus. No injection or drainage. ENT: No nasal bleeding or discharge. Mucous membranes pink and moist. NECK: Trachea midline. No JVD. CARDIOVASCULAR: RRR RESPIRATORY: No accessory muscle use. Clear to auscultation. Breath sounds equal bilaterally. GASTROINTESTINAL: Abdomen soft, non-tender, nondistended. Hepatic and splenic margins not palpable. MUSCULOSKELETAL: Extremities without clubbing, cyanosis, or edema. No obvious deformities. NEUROLOGICAL: Awake and alert. No obvious cranial nerve deficits. Motor grossly within normal limits. Five out of 5 muscle strength in the arms and legs. Normal speech. PSYCHIATRIC: Appropriate mood and affect; insight and judgment normal. Laboratory Laboratory Tests Test 10/02/17 05:46 White Blood Count 11.6 TH/MM3 Red Blood Count 3.62 MIL/MM3 Hemoglobin 10.9 GM/DL Hematocrit 33.2 % Mean Corpuscular Volume 91.7 FL Mean Corpuscular Hemoglobin 30.1 PG Mean Corpuscular Hemoglobin Concent 32.8 % Red Cell Distribution Width 18.1 % Platelet Count 582 TH/MM3 Mean Platelet Volume 6.7 FL Blood Urea Nitrogen 10 MG/DL Creatinine 0.51 MG/DL Random Glucose 161 MG/DL Calcium Level 8.2 MG/DL Sodium Level 129 MEQ/L Potassium Level 4.2 MEQ/L Chloride Level 97 MEQ/L Carbon Dioxide Level 24.7 MEQ/L Anion Gap 7 MEQ/L Estimat Glomerular Filtration Rate 154 ML/MIN Assessment and Plan Problem List: (1) SVT (supraventricular tachycardia) ICD Codes: I47.1 - Supraventricular tachycardia (2) Afib ICD Codes: I48.91 - Unspecified atrial fibrillation (3) Failure to thrive in adult ICD Codes: R62.7 - Adult failure to thrive Status: Acute Assessment and Plan 1) SVT/AF Con't on Amio/Cardizem Potent combination of medications, Digoxin stopped If further elevated heart rates will place back on Digoxin Amiodarone to keep him in NSR as difficult to control No an anti-coagulation candidate due to anemia 2) Anemia 3) Hyponatremia 4) Failure to thrive Gunner Martin DO Oct 02, 2017 15:16
--- NOTE | 2017-10-02 18:02 | HHI.PR ---
Subjective Remarks Patient states that he enjoys his tuna sandwich and soup. He is curious where he is going today. I explained he is being transferred out of [facility]. Objective Vitals Vital Signs Date Time Temp Pulse Resp B/P (MAP) Pulse Ox O2 Delivery O2 Flow Rate FiO2 10/02/17 16:00 98.1 78 16 147/63 (91) 98 10/02/17 12:53 97.6 79 16 130/59 (82) 96 10/02/17 11:16 98.1 74 18 119/51 (73) 100 10/02/17 07:38 97.5 76 19 113/67 (82) 100 10/02/17 07:00 70 10/02/17 06:20 70 10/02/17 05:30 68 10/02/17 04:00 74 10/02/17 03:09 97.8 76 18 120/63 (82) 99 10/02/17 03:00 77 10/02/17 02:00 76 10/02/17 01:00 84 10/02/17 00:26 18 10/02/17 00:00 78 10/01/17 23:18 98.1 82 19 121/56 (77) 99 10/01/17 23:00 80 10/01/17 22:00 80 10/01/17 21:46 98.0 75 19 130/70 (90) 97 10/01/17 21:00 82 10/01/17 20:00 80 10/01/17 19:00 82 10/01/17 18:00 86 I/O 10/01/17 10/01/17 10/01/17 10/02/17 10/02/17 10/02/17 07:00 15:00 23:00 07:00 15:00 23:00 Intake Total 960 ml 1100 ml 120 ml 100 ml Output Total 1000 ml 1600 ml 525 ml 300 ml Balance -40 ml -500 ml -405 ml -200 ml Intake Oral 960 ml 1100 ml 120 ml 100 ml Output Urine Total 1000 ml 1600 ml 525 ml 300 ml # Bowel Movements 4 0 Result Diagram: 10/02/17 0546 10/02/17 0546 Objective Remarks GENERAL: Weak appearing elderly man SKIN: Warm and dry. HEAD: Normocephalic. EYES: No scleral icterus. No injection or drainage. NECK: Supple, trachea midline. No JVD or lymphadenopathy. CARDIOVASCULAR: Intermittent sinus tachycardia without murmurs, gallops, or rubs. RESPIRATORY: Mild atelectasis in bases bilaterally. No accessory muscle use. GASTROINTESTINAL: Abdomen soft, non-tender, nondistended. EXTREMITIES: No cyanosis, or edema. NEUROLOGICAL: Awake, alert, and oriented x 3. Non-focal. Procedures none A/P Problem List: (1) Self-care deficit in patient living alone ICD Code: R46.89 - Other symptoms and signs involving appearance and behavior Status: Acute (2) DM (diabetes mellitus) ICD Code: E11.9 - Type 2 diabetes mellitus without complications Status: Chronic (3) Dehydration ICD Code: E86.0 - Dehydration Status: Resolved (4) Hyponatremia ICD Code: E87.1 - Hypo-osmolality and hyponatremia Status: Resolved (5) Failure to thrive in adult ICD Code: R62.7 - Adult failure to thrive Status: Acute (6) Generalized weakness ICD Code: R53.1 - Weakness Status: Acute (7) Hyperlipidemia ICD Code: E78.5 - Hyperlipidemia, unspecified Status: Chronic (8) Severe protein-calorie malnutrition ICD Code: E43 - Unspecified severe protein-calorie malnutrition Status: Acute Assessment and Plan Patient is a 86-year-old male admitted for failure to thrive SVT with occasional PAF Continue amiodarone, beta-rina and calcium channel rina. / Digoxin PRN Rate remaining stable on PO meds Appreciate cardiology consult Failure to thrive Poor ability to care for himself at home, though he has had 2 poor experiences at prison facilities where he lost 60 pounds in matter of months He is reluctant about the idea of going to a rehab center, he is not consenting to this He is requesting to be sent home to be in the care of his good friend, but last time he was at home he fell (following 60 pound weight loss) Encourage healthy p.o. intake, encourage active participation with PT to demonstrate ambulation ability Hypoglycemia Single episode when NPO for procedure. Resolved. Glipizide held. Anemia, S/P 2 units RBC Endoscopy today showed only gastritis Stable in the 10 range Appreciate GI consult Severe protein calorie malnutrition Mild dehydration IVF for hydration provided Pt is at high nutrition risk r/t FTT and recent wt loss w/low BMI 17.4. MDC for Calorie Count started today 09/24/17 through 09/27/17 w/Nutrition Recs to Follow 09/27/17. Send Gus Rosenbaum tid to offer 220 kcal and 10g Protein per serving. [place] pt's food preferences. Continue Megace Hyponatremia, sodium trending up TSH shows borderline elevation, due to weight loss will hold treatment Sodium is nearing normal at 133, patient is no longer symptomatic Type 2 diabetes Accu-Cheks with sliding scale insulin coverage Diabetic diet DVT prophylaxis SCDs Discharge Planning He will likely need SNF placement on discharge, but, he will not be happy about that Problem Qualifiers (1) DM (diabetes mellitus): Qualified Codes: E11.42 - Type 2 diabetes mellitus with diabetic polyneuropathy (2) Hyperlipidemia: Qualified Codes: E78.5 - Hyperlipidemia, unspecified Dustin Torre MD Oct 02, 2017 18:02
[2017-10-03] VITALS: BP 146/75; PULSE 81; RESP 20; TEMP 98.8; O2SAT 96
[2017-10-03 04:00] VITALS: BP 139/65; PULSE 90; RESP 20; TEMP 98.5; O2SAT 96
[2017-10-03] MEDS ORDERED: LACTATED RINGER'S 1000 ML IV PRN (04:15)
[2017-10-03] MEDS ORDERED: POVIDONE IODINE 5% (ANTISEPSIS KIT) 4 APPLICATIONS EACH NARE PRN (04:15)
[2017-10-03] MEDS ORDERED: CHLORHEXIDINE GLUCONATE 2 % 1 PACK (2 CLOTHS) TOPICAL PRN (04:15)
[2017-10-03] MEDS ORDERED: SODIUM CHLORID 0.9% 500 ML IV PRN (04:15)
[2017-10-03] MEDS: DILTIAZEM HCL 30 MG TAB PO SCH ×3 (06:17→16:46)
[2017-10-03] MEDS: POTASSIUM PHOSPHATE/SODIUM PHOSPHATE 250 MG TAB PO SCH ×3 (06:17→16:46)
[2017-10-03] MEDS: ACETAMINOPHEN/HYDROcodone 325 MG/5 MG TAB PO PRN ×2 (06:18→17:31)
[2017-10-03] MEDS: metFORMIN HCL 500 MG TAB PO SCH (06:24)
[2017-10-03] MEDS: INSULIN ASPART SUPPLEMENTAL SCALE SQ SCH ×5 (07:33→20:46)
[2017-10-03 08:00] VITALS: BP 142/78; PULSE 84; RESP 19; TEMP 98.6; O2SAT 98
[2017-10-03] MEDS ORDERED: SOD PHOSPHATE/SOD BIPHOSPHATE (ADULT) ENEMA 133ML RECTAL ONE ×2 (08:00→10:00)
[2017-10-03] MEDS: MEGESTROL ACETATE SUSP 400 MG/10 ML CUP PO SCH (09:00)
[2017-10-03] MEDS: SODIUM CHLOR 0.9% 1000 ML INJ 1,000 ML IV SCH (09:30)
[2017-10-03] MEDS: AMIODARONE 200 MG TAB PO SCH (09:33)
[2017-10-03] MEDS: SODIUM CHLORIDE 0.9% FLUSH 10 ML FLUSH IV FLUSH SCH ×2 (09:33→20:47)
[2017-10-03] MEDS: LACTOBACILLUS ACIDOPHILUS TAB PO SCH (09:34)
[2017-10-03] MEDS: PRAVASTATIN SOD 40 MG TAB PO SCH (09:34)
[2017-10-03] MEDS: FOLIC ACID 1 MG TAB PO SCH (09:34)
[2017-10-03] MEDS: GABAPENTIN 300 MG CAP PO SCH (09:34)
[2017-10-03] MEDS: FERROUS SULFATE 325 MG (65 MG ELEMENTAL IRON) TAB PO SCH (09:35)
--- NOTE | 2017-10-03 11:38 | GIPROC ---
[facility] [address] [facility]. [facility], [address] FLEXIBLE SIGMOIDOSCOPY PROCEDURE REPORT EXAM DATE: 10/03/2017 PATIENT NAME: Rufus Escobedo MR #: [id number] BIRTHDATE: 1930 ORDER #: [id number] ATTENDING: Tierney Howard MD WEB RETAILER: Jarett Kolb and Gloria Griffith STATUS: inpatient INDICATIONS: The patient is a 86 yr old male here for a flexible sigmoidoscopy due to anemia, fu colitis PROCEDURE PERFORMED: Flexible Sigmoidoscopy with biopsy MEDICATIONS: None and Per Anesthesia. ESTIMATED BLOOD LOSS: None CONSENT: The patient understands the risks and benefits of the procedure and understands that these risks include, but are not limited to: sedation, allergic reaction, infection, perforation and/or bleeding. Alternative means of evaluation and treatment include, among others: physical exam, x-rays, and/or surgical intervention. The patient elects to proceed with this endoscopic procedure. medical equipment was checked for proper function. Hand hygiene and appropriate measures for infection prevention was taken. After the risks, benefits and alternatives of the procedure were thoroughly explained, Informed consent was verified, confirmed and timeout was successfully executed by the treatment team. A digital rectal exam revealed external hemorrhoids The Pentax [id number] endoscope was introduced through the anus and advanced to the splenic flexure. The prep was marginal. The instrument was then slowly withdrawn as the colon was fully examined. COLON FINDINGS: Diverticulosis severe descending, sigmoid semisolid stool healing colitis at splenic flexure-biopsy. Retroflexed views revealed internal hemorrhoid The scope was then completely withdrawn from the patient and the procedure terminated. ADVERSE EVENTS: There were no complications. IMPRESSIONS: 1. Diverticulosis severe descending, sigmoid semisolid stool healing colitis at splenic flexure-biopsy 2. Retroflexed views revealed internal hemorrhoid 3. Revealed external hemorrhoids RECOMMENDATIONS: 1. Await biopsy results 2. Resume diet capsule endoscopy op nutritional consult RECALL: Return 1 year Colonoscopy Tierney Howard MD eSigned: Tierney Howard MD 10/03/2017 11:38 AM cc:
[2017-10-03] MEDS ORDERED: DO NOT ADM ANY ANTICOAGULANT DRUGS PRN (11:41)
[2017-10-03] MEDS ORDERED: PHENYLEPH/NS 1000 MCG/10 ML SYR IV ONE (12:00)
[2017-10-03] MEDS ORDERED: PROPOFOL 200 MG/20 ML AMP IV ONE (12:00)
[2017-10-03] MEDS ORDERED: LIDOCAINE HCL 1% PF 5 ML SYRINGE OTHER ONE (12:00)
[2017-10-03 13:00] VITALS: BP 128/60; PULSE 87; RESP 20; TEMP 98.6; O2SAT 96
--- NOTE | 2017-10-03 13:38 | HHI.PR ---
Subjective Remarks Follow-up right hip pain, anemia. The patient just returned from flexible sigmoidoscopy. Denies abdominal pain, nausea, vomiting. Denies chest pain or dyspnea. He is reporting pain in his right hip, which he states makes it difficult for him to ambulate. Objective Vitals Vital Signs Date Time Temp Pulse Resp B/P (MAP) Pulse Ox O2 Delivery O2 Flow Rate FiO2 10/03/17 13:00 98.6 87 20 128/60 (82) 96 10/03/17 12:00 68 18 110/50 (70) 96 10/03/17 11:44 98.0 77 16 104/49 (67) 96 10/03/17 08:00 98.6 84 19 142/78 (99) 98 10/03/17 04:00 98.5 90 20 139/65 (89) 96 10/03/17 00:00 98.8 81 20 146/75 (98) 96 10/02/17 20:00 97.9 80 22 137/64 (88) 98 10/02/17 16:00 98.1 78 16 147/63 (91) 98 I/O 10/02/17 10/02/17 10/02/17 10/03/17 10/03/17 10/03/17 07:00 15:00 23:00 07:00 15:00 23:00 Intake Total 120 ml 100 ml 120 ml 100 ml Output Total 525 ml 300 ml 900 ml Balance -405 ml -200 ml -780 ml 100 ml Intake Oral 120 ml 100 ml 120 ml 0 ml Other 100 ml Output Urine Total 525 ml 300 ml 900 ml # Bowel Movements 4 0 0 1 Result Diagram: 10/02/17 0546 10/02/17 0546 Imaging Last Impressions Abdomen/Pelvis CT 09/30/17 0000 Signed Impressions: Service Date/Time: Sunday, October 01, 2017 00:07 - CONCLUSION: 1. No obstruction or acute inflammatory changes are demonstrated. 2. Nonspecific distention of the stomach. 3. Considerable stool throughout the colon. Nonspecific slight ascites. There is also body wall edema/anasarca and trace bibasilar pleural effusions. 4. A few scattered benign cysts of both kidneys. 5. Probable left adrenal adenomas. 6. Nonobstructing stones of the left kidney. 7. Atherosclerosis of the abdominal aorta. 8. Sigmoid colon diverticulosis without evidence of diverticulitis. 9. Nonacute appearing subchondral fragmentation/collapse of the right femoral head. Hipolito Ryder MD Chest X-Ray 09/23/171920 Signed Impressions: Service Date/Time: Saturday, September 23, 2017 19:35 - CONCLUSION: 1. No active disease. Nicholas Jacobsen MD Objective Remarks General: Elderly male in no acute distress. Heart: Regular rate and rhythm. No murmur. Lungs: Clear to auscultation bilaterally. No wheezes, rales, or rhonchi. Breathing is nonlabored. Abdomen: Soft, nontender, nondistended. Extremities: No lower extremity edema. Psych: Alert and oriented. Neuro: Normal speech. No focal deficits noted. Procedures 10/03/17 flexible sigmoidoscopy Urinary Catheter: No Vascular Central Line Catheter: No A/P Problem List: (1) Self-care deficit in patient living alone ICD Code: R46.89 - Other symptoms and signs involving appearance and behavior Status: Acute (2) DM (diabetes mellitus) ICD Code: E11.9 - Type 2 diabetes mellitus without complications Status: Chronic (3) Dehydration ICD Code: E86.0 - Dehydration Status: Resolved (4) Hyponatremia ICD Code: E87.1 - Hypo-osmolality and hyponatremia Status: Resolved (5) Failure to thrive in adult ICD Code: R62.7 - Adult failure to thrive Status: Acute (6) Generalized weakness ICD Code: R53.1 - Weakness Status: Acute (7) Hyperlipidemia ICD Code: E78.5 - Hyperlipidemia, unspecified Status: Chronic (8) Severe protein-calorie malnutrition ICD Code: E43 - Unspecified severe protein-calorie malnutrition Status: Acute Assessment and Plan 1. SVT with occasional paroxysmal atrial fibrillation: Continue amiodarone, beta-rina, calcium channel rina. Digoxin as needed. Rate is stable. Appreciate cardiology recommendations. 2. Failure to thrive, severe protein calorie malnutrition: Patient states that he lost 60 pounds in a matter of months while in snf facilities because he did not eat well there. He wishes to return home with his friend, but may not be able to do so safely. Continue physical therapy. Encourage oral intake. Continue Glucerna shakes. Continue Megace. Appreciate dietary recommendations. 3. Hypoglycemia: Resolved. 4. Anemia: Hemoglobin improved following transfusion. Appreciate GI recommendations. No active bleeding noted on endoscopy, sigmoidoscopy. 5. Hyponatremia: Improving. 6. Diabetes mellitus type 2: Monitor Accu-Cheks and cover with sliding scale insulin. Diabetic diet. 7. DVT prophylaxis: SCDs. Discussed with Dr. Martin. Discharge Planning Patient would benefit from SNF placement, but is resistant to rehab facilities and general. He is requesting discharge home with home health care. Will continue to evaluate with physical therapy. Problem Qualifiers (1) DM (diabetes mellitus): Qualified Codes: E11.42 - Type 2 diabetes mellitus with diabetic polyneuropathy (2) Hyperlipidemia: Qualified Codes: E78.5 - Hyperlipidemia, unspecified Prince Boggs MD Oct 03, 2017 13:38
[2017-10-03 16:00] VITALS: BP 116/62; PULSE 78; RESP 18; TEMP 97.7; O2SAT 96
--- NOTE | 2017-10-03 18:42 | PD.CARD.PN ---
Subjective Subjective Remarks Patient was seen earlier today, late entry note No events overnight No chest pain/SOB Telemetry with no arrhythmias Objective Medications Current Medications Medications (Trade) Dose Ordered Sig/Rodrigo Route Start Time Stop Time Status Last Admin (NS Flush) 2 ml UNSCH PRN IV FLUSH 09/23/17 23:45 (NS Flush) 2 ml BID IV FLUSH 09/24/17 09:00 10/03/17 09:33 (Tylenol) 650 mg Q4H PRN PO 09/23/17 23:45 09/28/17 19:30 (Zofran Inj) 4 mg Q6H PRN IVP 09/23/17 23:45 (Narcan Inj) 0.4 mg UNSCH PRN IV PUSH 09/23/17 23:45 (D50w (Vial) Inj) 50 ml UNSCH PRN IV PUSH 09/23/17 23:45 09/30/17 09:13 (Glucagon Inj) 1 mg UNSCH PRN OTHER 09/23/17 23:45 (NovoLOG SUPPLEMENTAL SCALE) 1 ACHS SLIDING SCALE SQ 09/24/17 08:00 10/03/17 16:45 (Ferrous Sulfate) 325 mg DAILY PO 09/25/17 09:00 10/03/17 09:35 (Folate) 1 mg DAILY PO 09/25/17 09:00 10/03/17 09:34 (Neurontin) 300 mg DAILY PO 09/25/17 09:00 10/03/17 09:34 (Pravachol) 40 mg DAILY PO 09/25/17 09:00 10/03/17 09:34 (Januvia) 100 mg DAILY PO 09/25/17 09:00 Future hold 10/03/17 09:34 (Lactinex) 1 tab DAILY PO 09/25/17 09:00 10/03/17 09:34 (Megace Liq) 400 mg DAILY PO 09/26/17 10:30 10/02/17 08:29 (K-Phos Neutral) 250 mg Q6HR PO 09/26/17 12:45 10/03/17 16:46 (Glucophage) 1,500 mg AC BREAKFAST PO 09/27/17 07:00 10/02/17 08:33 (Lopressor Inj) 5 mg Q5M PRN IV PUSH 09/28/17 09:45 09/29/17 08:37 Sodium Chloride 1,000 ml @ 30 mls/hr Q24H IV 09/28/17 10:30 10/03/17 09:30 Amiodarone HCl 450 mg/Sodium Chloride 250 ml @ 33.33 mls/ hr Q7H31M PRN IV 09/28/17 12:00 09/30/17 03:39 ([place] 5-325 Mg) 1 tab Q6H PRN PO 09/29/17 14:30 10/03/17 17:31 (Cordarone) 200 mg DAILY PO 09/30/17 11:30 10/03/17 09:33 (Cardizem) 30 mg Q6HR PO 09/30/17 12:00 10/03/17 16:46 Lactated Ringer's 1,000 ml @ 30 mls/hr Q24H PRN IV 10/03/17 04:15 10/06/17 04:14 10/03/17 11:02 Sodium Chloride 500 ml @ 30 mls/hr [id number] PRN IV 10/03/17 04:15 10/06/17 04:14 (Betadine 5% Antisepsis Kit) 1 applic REHABILITATION CLERK PRN EACH NARE 10/03/17 04:15 10/06/17 04:14 (Chlorhexidine 2% Cloth) 3 pack REHABILITATION CLERK PRN TOPICAL 10/03/17 04:15 10/06/17 04:14 Miscellaneous Information ALL NURSING DEPARTME... UNSCH PRN .XX 10/03/17 11:41 10/04/17 11:40 Vital Signs / I&O Vital Signs Date Time Temp Pulse Resp B/P (MAP) Pulse Ox O2 Delivery O2 Flow Rate FiO2 10/03/17 16:00 97.7 78 18 116/62 (80) 96 10/03/17 13:00 98.6 87 20 128/60 (82) 96 10/03/17 12:00 68 18 110/50 (70) 96 10/03/17 11:44 98.0 77 16 104/49 (67) 96 10/03/17 08:00 98.6 84 19 142/78 (99) 98 10/03/17 04:00 98.5 90 20 139/65 (89) 96 10/03/17 00:00 98.8 81 20 146/75 (98) 96 10/02/17 20:00 97.9 80 22 137/64 (88) 98 I/O 10/02/17 10/02/17 10/02/17 10/03/17 10/03/17 10/03/17 07:00 15:00 23:00 07:00 15:00 23:00 Intake Total 120 ml 100 ml 120 ml 100 ml 0 ml Output Total 525 ml 300 ml 900 ml 100 ml Balance -405 ml -200 ml -780 ml 0 ml 0 ml Intake Oral 120 ml 100 ml 120 ml 0 ml 0 ml Other 100 ml Output Urine Total 525 ml 300 ml 900 ml Stool Total 100 ml # Voids 2 # Bowel Movements 4 0 0 1 0 Physical Exam GENERAL: NAD, AAOx3 SKIN: Warm and dry. HEAD: Atraumatic. Normocephalic. EYES: Pupils equal and round. No scleral icterus. No injection or drainage. ENT: No nasal bleeding or discharge. Mucous membranes pink and moist. NECK: Trachea midline. No JVD. CARDIOVASCULAR: RRR RESPIRATORY: No accessory muscle use. Clear to auscultation. Breath sounds equal bilaterally. GASTROINTESTINAL: Abdomen soft, non-tender, nondistended. Hepatic and splenic margins not palpable. MUSCULOSKELETAL: Extremities without clubbing, cyanosis, or edema. No obvious deformities. NEUROLOGICAL: Awake and alert. No obvious cranial nerve deficits. Motor grossly within normal limits. Five out of 5 muscle strength in the arms and legs. Normal speech. PSYCHIATRIC: Appropriate mood and affect; insight and judgment normal. Assessment and Plan Problem List: (1) SVT (supraventricular tachycardia) ICD Codes: I47.1 - Supraventricular tachycardia (2) Afib ICD Codes: I48.91 - Unspecified atrial fibrillation (3) Failure to thrive in adult ICD Codes: R62.7 - Adult failure to thrive Status: Acute Assessment and Plan 1) SVT/AF Con't on Amio/Cardizem Potent combination of medications, Digoxin stopped If further elevated heart rates will place back on Digoxin Amiodarone to keep him in NSR as difficult to control No an anti-coagulation candidate due to anemia 2) Anemia 3) Hyponatremia 4) Failure to thrive 5) No further cardiovascular work up Will see PRN, call with questions Gunner Martin DO Oct 03, 2017 18:42
[2017-10-03 20:00] VITALS: BP 136/65; PULSE 80; RESP 20; TEMP 97.6; O2SAT 97
[2017-10-03 22:33] LABS: AUTOMATED NEUTROPHIL # 9.8 TH/MM3 (1.8-7.7); BASOPHIL # 0.1 TH/MM3 (0-0.2); BASOPHIL % 0.8 % (0.0-2.0); EOSINOPHIL # 0.3 TH/MM3 (0-0.4); EOSINOPHIL % 2.3 % (0.0-4.0); HEMATOCRIT 32.5 % (39.0-51.0); HEMOGLOBIN 10.6 GM/DL (13.0-17.0); LYMPH % 11.1 % (9.0-44.0); LYMPHOCYTE # 1.4 TH/MM3 (1.0-4.8); MEAN CELL VOLUME 91.6 FL (80.0-100.0); MEAN CORPUSCULAR HEMOGLOBIN 29.8 PG (27.0-34.0); MEAN CORPUSCULAR HGB CONC 32.5 % (32.0-36.0); MEAN PLATELET VOLUME 6.6 FL (7.0-11.0); MONO % 8.5 % (0.0-8.0); MONOCYTE # 1.1 TH/MM3 (0-0.9); NEUT % 77.3 % (16.0-70.0); PLATELET COUNT 651 TH/MM3 (150-450); RED BLOOD COUNT 3.55 MIL/MM3 (4.50-5.90); RED CELL DISTRIBUTION WIDTH 17.2 % (11.6-17.2); WHITE BLOOD COUNT 12.7 TH/MM3 (4.0-11.0)
[2017-10-03 22:57] LABS: CALCIUM 8.4 MG/DL (8.5-10.1); CREATININE 0.74 MG/DL (0.60-1.30)
[2017-10-04] VITALS (7 sets, daily range): BP systolic 118–144; BP diastolic 57–69; PULSE 73–82; RESP 16–20; TEMP 97.5–98.2; O2SAT 97–98
[2017-10-04] MEDS: DILTIAZEM HCL 30 MG TAB PO SCH ×5 (00:05→23:56)
[2017-10-04] MEDS: POTASSIUM PHOSPHATE/SODIUM PHOSPHATE 250 MG TAB PO SCH ×5 (00:06→23:56)
[2017-10-04] MEDS: ACETAMINOPHEN/HYDROcodone 325 MG/5 MG TAB PO PRN ×4 (00:09→23:57)
[2017-10-04 07:39] LABS: AUTOMATED NEUTROPHIL # 9.7 TH/MM3 (1.8-7.7); BASOPHIL % 0.4 % (0.0-2.0); EOSINOPHIL # 0.5 TH/MM3 (0-0.4); EOSINOPHIL % 3.6 % (0.0-4.0); HEMATOCRIT 32.8 % (39.0-51.0); HEMOGLOBIN 10.8 GM/DL (13.0-17.0); LYMPH % 12.8 % (9.0-44.0); LYMPHOCYTE # 1.7 TH/MM3 (1.0-4.8); MEAN CELL VOLUME 92.5 FL (80.0-100.0); MEAN CORPUSCULAR HEMOGLOBIN 30.4 PG (27.0-34.0); MEAN CORPUSCULAR HGB CONC 32.8 % (32.0-36.0); MEAN PLATELET VOLUME 7.2 FL (7.0-11.0); MONO % 8.7 % (0.0-8.0); MONOCYTE # 1.1 TH/MM3 (0-0.9); NEUT % 74.5 % (16.0-70.0); PLATELET COUNT 646 TH/MM3 (150-450); RED BLOOD COUNT 3.54 MIL/MM3 (4.50-5.90); RED CELL DISTRIBUTION WIDTH 17.7 % (11.6-17.2)
[2017-10-04] MEDS: FOLIC ACID 1 MG TAB PO SCH (08:00)
[2017-10-04] MEDS: GABAPENTIN 300 MG CAP PO SCH (08:00)
[2017-10-04] MEDS: PRAVASTATIN SOD 40 MG TAB PO SCH (08:00)
[2017-10-04] MEDS: LACTOBACILLUS ACIDOPHILUS TAB PO SCH (08:01)
[2017-10-04] MEDS: FERROUS SULFATE 325 MG (65 MG ELEMENTAL IRON) TAB PO SCH (08:01)
[2017-10-04] MEDS: metFORMIN HCL 500 MG TAB PO SCH (08:01)
[2017-10-04 08:02] LABS: BICARBONATE 22.2 MEQ/L (21.0-32.0); CALCIUM 8.3 MG/DL (8.5-10.1); CREATININE 0.56 MG/DL (0.60-1.30)
[2017-10-04] MEDS: SODIUM CHLORIDE 0.9% FLUSH 10 ML FLUSH IV FLUSH SCH ×2 (08:02→20:21)
[2017-10-04] MEDS: AMIODARONE 200 MG TAB PO SCH (08:02)
[2017-10-04] MEDS: SODIUM CHLOR 0.9% 1000 ML INJ 1,000 ML IV SCH (08:02)
[2017-10-04] MEDS: INSULIN ASPART SUPPLEMENTAL SCALE SQ SCH ×4 (08:03→20:21)
[2017-10-04] MEDS: MEGESTROL ACETATE SUSP 400 MG/10 ML CUP PO SCH (08:03)
--- NOTE | 2017-10-04 10:41 | HHI.GIFU ---
Subjective Remarks Pt resting in bed No GI complaints at this time Reports one BM this morning Tolerating PO Denies nausea, vomiting, abdominal pain (Helen Sahni) Objective Vitals I&O Vital Signs Date Time Temp Pulse Resp B/P (MAP) Pulse Ox O2 Delivery O2 Flow Rate FiO2 10/04/17 08:00 98.2 77 16 144/65 (91) 97 10/04/17 04:00 97.6 77 20 132/65 (87) 98 10/04/17 02:42 73 10/04/17 00:00 97.7 73 20 132/69 (90) 97 10/03/17 20:00 97.6 80 20 136/65 (88) 97 10/03/17 16:00 97.7 78 18 116/62 (80) 96 10/03/17 13:00 98.6 87 20 128/60 (82) 96 10/03/17 12:00 68 18 110/50 (70) 96 10/03/17 11:44 98.0 77 16 104/49 (67) 96 I/O 10/03/17 10/03/17 10/03/17 10/04/17 10/04/17 10/04/17 06:59 14:59 22:59 06:59 14:59 22:59 Intake Total 120 ml 100 ml 0 ml 320 ml Output Total 900 ml 100 ml 600 ml Balance -780 ml 0 ml 0 ml -280 ml Intake Oral 120 ml 0 ml 0 ml 320 ml Other 100 ml Output Urine Total 900 ml 600 ml Stool Total 100 ml # Voids 2 1 # Bowel Movements 0 1 0 0 Laboratory Laboratory Tests Test 10/03/17 22:05 10/04/17 05:52 White Blood Count 12.7 13.0 Red Blood Count 3.55 3.54 Hemoglobin 10.6 10.8 Hematocrit 32.5 32.8 Mean Corpuscular Volume 91.6 92.5 Mean Corpuscular Hemoglobin 29.8 30.4 Mean Corpuscular Hemoglobin Concent 32.5 32.8 Red Cell Distribution Width 17.2 17.7 Platelet Count 651 646 Mean Platelet Volume 6.6 7.2 Neutrophils (%) (Auto) 77.3 74.5 Lymphocytes (%) (Auto) 11.1 12.8 Monocytes (%) (Auto) 8.5 8.7 Eosinophils (%) (Auto) 2.3 3.6 Basophils (%) (Auto) 0.8 0.4 Neutrophils # (Auto) 9.8 9.7 Lymphocytes # (Auto) 1.4 1.7 Monocytes # (Auto) 1.1 1.1 Eosinophils # (Auto) 0.3 0.5 Basophils # (Auto) 0.1 0.0 CBC Comment DIFF FINAL DIFF FINAL Differential Comment Blood Urea Nitrogen 18 16 Creatinine 0.74 0.56 Random Glucose 179 201 Calcium Level 8.4 8.3 Sodium Level 130 129 Potassium Level 4.3 4.4 Chloride Level 98 97 Carbon Dioxide Level 23.0 22.2 Anion Gap 9 10 Estimat Glomerular Filtration Rate 101 139 Date/Time Source Procedure Growth Status 09/25/17 23:30 Stool Stool Stool Occult Blood (MISSAEL) - Final HEMOCCULT NEGATIVE Complete Imaging Last Impressions Abdomen/Pelvis CT 09/30/17 0000 Signed Impressions: Service Date/Time: Sunday, October 01, 2017 00:07 - CONCLUSION: 1. No obstruction or acute inflammatory changes are demonstrated. 2. Nonspecific distention of the stomach. 3. Considerable stool throughout the colon. Nonspecific slight ascites. There is also body wall edema/anasarca and trace bibasilar pleural effusions. 4. A few scattered benign cysts of both kidneys. 5. Probable left adrenal adenomas. 6. Nonobstructing stones of the left kidney. 7. Atherosclerosis of the abdominal aorta. 8. Sigmoid colon diverticulosis without evidence of diverticulitis. 9. Nonacute appearing subchondral fragmentation/collapse of the right femoral head. Hipolito Ryder MD Chest X-Ray 09/23/171920 Signed Impressions: Service Date/Time: Saturday, September 23, 2017 19:35 - CONCLUSION: 1. No active disease. Nicholas Jacobsen MD Physical Exam HEENT: Normocephalic; atraumatic CHEST: Even/unlabored CARDIAC: RRR ABDOMEN: Soft, nondistended, nontender; bowel sounds active SKIN: Normal; no rash; no jaundice. 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 (Helen Sahni) Assessment and Plan Plan Assessment: - Anemia - H/H 9.3/27.8 on admission 09/23 and dropped to 6.3/18.3 on 09/28. No obvious bleeding, Hemoccult stool negative. EGD (08/29/17) --> There was LA Class B esophagitis noted. Small hiatal hernia. Three medium sized ulcers were found in the gastric antrum; biopsies were taken. Large non-bleeding ulcer was found in the 2nd part of the duodenum. Colonoscopy (08/29/17) --> Diverticulum in the sigmoid colon and descending colon. Large sized circumferential colitis was found in the sigmoid colon, descending colon, at the splenic flexure, in the transverse colon, at the hepatic flexure, and in the ascending colon; The mucosa was edematous, erythematous, friable, ulcerated and oozing blood; multiple biopsies were performed using cold forceps - SVT cardiology following- anticoagulation on hold because of anemia. Oral amiodarone. Cardiology following. (10/01) S/P EGD yesterday --> Duodenitis second portion-biopsy. Gastritis antrum- biopsy. Esophagitis distal esophagus-biopsy. Retroflexed views revealed a hiatal hernia. CT abdomen and pelvis W IV contrast (10/01) --> 1. No obstruction or acute inflammatory changes are demonstrated. Nonspecific distention of the stomach. Considerable stool throughout the colon. Nonspecific slight ascites. There is also body wall edema/anasarca and trace bibasilar pleural effusions. A few scattered benign cysts of both kidneys. Probable left adrenal adenomas. Nonobstructing stones of the left kidney. Atherosclerosis of the abdominal aorta. Sigmoid colon diverticulosis without evidence of diverticulitis. Nonacute appearing subchondral fragmentation/collapse of the right femoral head. Per RN pt has not been eating much on the diabetic diet so Dr. Torre said pt can order any food he would like to see if he eats more, pt ordered tuna sandwich has not come yet. H/H stable currently 10.7/31.6- 2 U PRBCs on 09/28 (10/04) Pt with no GI complaints at this time. Reports BM this morning. Tolerating PO. H/H remains stable currently 10.8/32.8. Hematology following, recommendations to monitor CBC, transfuse for hgb less than 8, and nutrition consult. Noted will repeat iron studies as outpatient. Nutrition recommends heart healthy diet- 1800 ADA with Glucerna shakes TID and Megace daily. EGD biopsy still pending as well as biopsy from flex sig yesterday. S/P flex sigmoidoscopy yesterday --> Severed diverticulosis in the descending colon. Semisolid stool in the sigmoid colon. Healing colitis at the splenic flexure. Internal and external hemorrhoids. 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 Howard and this note is written on her behalf (Helen Sahni) Physician Comments agree with above if dc fu office (Tierney Howard MD) Helen Sahni Oct 04, 2017 10:41 Tierney Howard MD Oct 04, 2017 14:41
--- NOTE | 2017-10-04 13:36 | HHI.PR ---
Subjective Remarks Follow up weakness, anemia. Patient feels better today. He states that he is still weak. He is now agreeable to going to SNF at discharge. Objective Vitals Vital Signs Date Time Temp Pulse Resp B/P (MAP) Pulse Ox O2 Delivery O2 Flow Rate FiO2 10/04/17 12:00 97.5 74 16 132/60 (84) 97 10/04/17 08:00 98.2 77 16 144/65 (91) 97 10/04/17 04:00 97.6 77 20 132/65 (87) 98 10/04/17 02:42 73 10/04/17 00:00 97.7 73 20 132/69 (90) 97 10/03/17 20:00 97.6 80 20 136/65 (88) 97 10/03/17 16:00 97.7 78 18 116/62 (80) 96 I/O 10/03/17 10/03/17 10/03/17 10/04/17 10/04/17 10/04/17 07:00 15:00 23:00 07:00 15:00 23:00 Intake Total 120 ml 100 ml 0 ml 320 ml Output Total 900 ml 100 ml 600 ml Balance -780 ml 0 ml 0 ml -280 ml Intake Oral 120 ml 0 ml 0 ml 320 ml Other 100 ml Output Urine Total 900 ml 600 ml Stool Total 100 ml # Voids 2 1 # Bowel Movements 0 1 0 0 Result Diagram: 10/04/17 0552 10/04/17 0552 Imaging Last Impressions Abdomen/Pelvis CT 09/30/17 0000 Signed Impressions: Service Date/Time: Sunday, October 01, 2017 00:07 - CONCLUSION: 1. No obstruction or acute inflammatory changes are demonstrated. 2. Nonspecific distention of the stomach. 3. Considerable stool throughout the colon. Nonspecific slight ascites. There is also body wall edema/anasarca and trace bibasilar pleural effusions. 4. A few scattered benign cysts of both kidneys. 5. Probable left adrenal adenomas. 6. Nonobstructing stones of the left kidney. 7. Atherosclerosis of the abdominal aorta. 8. Sigmoid colon diverticulosis without evidence of diverticulitis. 9. Nonacute appearing subchondral fragmentation/collapse of the right femoral head. Hipolito Ryder MD Chest X-Ray 09/23/171920 Signed Impressions: Service Date/Time: Saturday, September 23, 2017 19:35 - CONCLUSION: 1. No active disease. Nicholas Jacobsen MD Objective Remarks General: Elderly male in no acute distress. Heart: Regular rate and rhythm. No murmur. Lungs: Clear to auscultation bilaterally. No wheezes, rales, or rhonchi. Breathing is nonlabored. Abdomen: Soft, nontender, nondistended. Extremities: No lower extremity edema. Psych: Alert and oriented. Neuro: Normal speech. No focal deficits noted. Procedures 10/03/17 flexible sigmoidoscopy Urinary Catheter: No Vascular Central Line Catheter: No A/P Problem List: (1) Self-care deficit in patient living alone ICD Code: R46.89 - Other symptoms and signs involving appearance and behavior Status: Acute (2) DM (diabetes mellitus) ICD Code: E11.9 - Type 2 diabetes mellitus without complications Status: Chronic (3) Dehydration ICD Code: E86.0 - Dehydration Status: Resolved (4) Hyponatremia ICD Code: E87.1 - Hypo-osmolality and hyponatremia Status: Resolved (5) Failure to thrive in adult ICD Code: R62.7 - Adult failure to thrive Status: Acute (6) Generalized weakness ICD Code: R53.1 - Weakness Status: Acute (7) Hyperlipidemia ICD Code: E78.5 - Hyperlipidemia, unspecified Status: Chronic (8) Severe protein-calorie malnutrition ICD Code: E43 - Unspecified severe protein-calorie malnutrition Status: Acute Assessment and Plan 1. SVT with occasional paroxysmal atrial fibrillation: Continue amiodarone, beta-rina, calcium channel rina. Digoxin as needed. Rate is stable. Appreciate cardiology recommendations. 2. Failure to thrive, severe protein calorie malnutrition, generalized weakness : Patient states that he lost 60 pounds in a matter of months while in [facility] facilities because he did not eat well there. He is now agreeable to SNF placement at discharge. Continue physical therapy. Encourage oral intake. Continue Glucerna shakes. Continue Megace. Appreciate dietary recommendations. 3. Hypoglycemia: Resolved. 4. Anemia: Hemoglobin improved following transfusion. Appreciate GI recommendations. No active bleeding noted on endoscopy, sigmoidoscopy. GI signed off. 5. Hyponatremia: Sodium is stable, but still low. Remove sodium restriction from diet. 6. Diabetes mellitus type 2: Monitor Accu-Cheks and cover with sliding scale insulin. Diabetic diet. 7. DVT prophylaxis: SCDs. Discharge Planning Discharge to SNF soon, possibly tomorrow if arrangements can be made. Problem Qualifiers (1) DM (diabetes mellitus): Qualified Codes: E11.42 - Type 2 diabetes mellitus with diabetic polyneuropathy (2) Hyperlipidemia: Qualified Codes: E78.5 - Hyperlipidemia, unspecified Prince Boggs MD Oct 04, 2017 13:36
[2017-10-04] MEDS: ALUMINUM/MAGNESIUM/SIMETH 30 ML CUP PO PRN (20:36)
[2017-10-05] VITALS (8 sets, daily range): BP systolic 132–191; BP diastolic 61–105; PULSE 72–85; RESP 16–20; TEMP 97.3–98.2; O2SAT 95–98
[2017-10-05] MEDS: ACETAMINOPHEN/HYDROcodone 325 MG/5 MG TAB PO PRN (05:40)
[2017-10-05] MEDS: DILTIAZEM HCL 30 MG TAB PO SCH ×3 (05:40→17:07)
[2017-10-05] MEDS: POTASSIUM PHOSPHATE/SODIUM PHOSPHATE 250 MG TAB PO SCH ×3 (05:40→17:07)
[2017-10-05] MEDS: INSULIN ASPART SUPPLEMENTAL SCALE SQ SCH ×4 (08:10→22:00)
[2017-10-05] MEDS: MEGESTROL ACETATE SUSP 400 MG/10 ML CUP PO SCH (08:10)
[2017-10-05] MEDS: FOLIC ACID 1 MG TAB PO SCH (08:10)
[2017-10-05] MEDS: FERROUS SULFATE 325 MG (65 MG ELEMENTAL IRON) TAB PO SCH (08:10)
[2017-10-05] MEDS: metFORMIN HCL 500 MG TAB PO SCH (08:10)
[2017-10-05] MEDS: GABAPENTIN 300 MG CAP PO SCH (08:10)
[2017-10-05] MEDS: PRAVASTATIN SOD 40 MG TAB PO SCH (08:10)
[2017-10-05] MEDS: LACTOBACILLUS ACIDOPHILUS TAB PO SCH (08:10)
[2017-10-05] MEDS: AMIODARONE 200 MG TAB PO SCH (08:10)
[2017-10-05 08:11] LABS: BICARBONATE 21.5 MEQ/L (21.0-32.0); CALCIUM 8.6 MG/DL (8.5-10.1); CREATININE 0.5 MG/DL (0.60-1.30)
[2017-10-05] MEDS: SODIUM CHLORIDE 0.9% FLUSH 10 ML FLUSH IV FLUSH SCH ×2 (08:11→20:17)
[2017-10-05 08:18] LABS: AUTOMATED NEUTROPHIL # 9.4 TH/MM3 (1.8-7.7); BASOPHIL % 0.4 % (0.0-2.0); EOSINOPHIL # 0.4 TH/MM3 (0-0.4); EOSINOPHIL % 3.6 % (0.0-4.0); HEMATOCRIT 31.8 % (39.0-51.0); HEMOGLOBIN 10.7 GM/DL (13.0-17.0); LYMPH % 12.3 % (9.0-44.0); LYMPHOCYTE # 1.5 TH/MM3 (1.0-4.8); MEAN CELL VOLUME 92.5 FL (80.0-100.0); MEAN CORPUSCULAR HEMOGLOBIN 31.1 PG (27.0-34.0); MEAN CORPUSCULAR HGB CONC 33.7 % (32.0-36.0); MEAN PLATELET VOLUME 6.7 FL (7.0-11.0); MONO % 9.1 % (0.0-8.0); MONOCYTE # 1.1 TH/MM3 (0-0.9); NEUT % 74.6 % (16.0-70.0); PLATELET COUNT 612 TH/MM3 (150-450); RED BLOOD COUNT 3.44 MIL/MM3 (4.50-5.90); RED CELL DISTRIBUTION WIDTH 17.2 % (11.6-17.2); WHITE BLOOD COUNT 12.5 TH/MM3 (4.0-11.0)
--- NOTE | 2017-10-05 10:37 | HHI.PR ---
Subjective Remarks Follow up weakness, anemia. Feels weak. Still having right hip pain. No other complaints at this time. Objective Vitals Vital Signs Date Time Temp Pulse Resp B/P (MAP) Pulse Ox O2 Delivery O2 Flow Rate FiO2 10/05/17 08:00 97.3 72 16 134/63 (86) 98 10/05/17 04:00 97.8 77 19 132/61 (84) 95 10/05/17 00:00 97.7 80 18 156/72 (100) 96 10/04/17 20:00 79 10/04/17 20:00 97.8 79 18 118/57 (77) 98 10/04/17 16:00 98.0 82 18 137/63 (87) 97 10/04/17 12:00 97.5 74 16 132/60 (84) 97 I/O 10/04/17 10/04/17 10/04/17 10/05/17 10/05/17 10/05/17 07:00 15:00 23:00 07:00 15:00 23:00 Intake Total 320 ml 960 ml 900 ml Output Total 600 ml 1100 ml 700 ml Balance -280 ml -140 ml 200 ml Intake Oral 320 ml 960 ml 900 ml Output Urine Total 600 ml 1100 ml 700 ml # Voids 1 # Bowel Movements 0 0 Result Diagram: 10/05/17 0634 10/05/17 0634 Imaging Last Impressions Abdomen/Pelvis CT 09/30/17 0000 Signed Impressions: Service Date/Time: Sunday, October 01, 2017 00:07 - CONCLUSION: 1. No obstruction or acute inflammatory changes are demonstrated. 2. Nonspecific distention of the stomach. 3. Considerable stool throughout the colon. Nonspecific slight ascites. There is also body wall edema/anasarca and trace bibasilar pleural effusions. 4. A few scattered benign cysts of both kidneys. 5. Probable left adrenal adenomas. 6. Nonobstructing stones of the left kidney. 7. Atherosclerosis of the abdominal aorta. 8. Sigmoid colon diverticulosis without evidence of diverticulitis. 9. Nonacute appearing subchondral fragmentation/collapse of the right femoral head. Hipolito Ryder MD Chest X-Ray 09/23/171920 Signed Impressions: Service Date/Time: Saturday, September 23, 2017 19:35 - CONCLUSION: 1. No active disease. Nicholas Jacobsen MD Objective Remarks General: Elderly male in no acute distress. Heart: Regular rate and rhythm. No murmur. Lungs: Clear to auscultation bilaterally. No wheezes, rales, or rhonchi. Breathing is nonlabored. Abdomen: Soft, nontender, nondistended. Extremities: No lower extremity edema. Psych: Alert and oriented. Neuro: Normal speech. No focal deficits noted. Procedures 10/03/17 flexible sigmoidoscopy Urinary Catheter: No Vascular Central Line Catheter: No A/P Problem List: (1) Self-care deficit in patient living alone ICD Code: R46.89 - Other symptoms and signs involving appearance and behavior Status: Acute (2) DM (diabetes mellitus) ICD Code: E11.9 - Type 2 diabetes mellitus without complications Status: Chronic (3) Dehydration ICD Code: E86.0 - Dehydration Status: Resolved (4) Hyponatremia ICD Code: E87.1 - Hypo-osmolality and hyponatremia Status: Resolved (5) Failure to thrive in adult ICD Code: R62.7 - Adult failure to thrive Status: Acute (6) Generalized weakness ICD Code: R53.1 - Weakness Status: Acute (7) Hyperlipidemia ICD Code: E78.5 - Hyperlipidemia, unspecified Status: Chronic (8) Severe protein-calorie malnutrition ICD Code: E43 - Unspecified severe protein-calorie malnutrition Status: Acute Assessment and Plan 1. SVT with occasional paroxysmal atrial fibrillation: Continue amiodarone, beta-rina, calcium channel rina. Digoxin as needed. Rate is stable. Appreciate cardiology recommendations. 2. Failure to thrive, severe protein calorie malnutrition, generalized weakness : Patient states that he lost 60 pounds in a matter of months [facility] in [facility] facilities because he did not eat well there. He is now agreeable to SNF placement at discharge. Continue physical therapy. Encourage oral intake. Continue Glucerna shakes. Continue Megace. Appreciate dietary recommendations. 3. Hypoglycemia: Resolved. 4. Anemia: Hemoglobin improved following transfusion. Appreciate GI recommendations. No active bleeding noted on endoscopy, sigmoidoscopy. GI signed off. 5. Hyponatremia: Sodium is trending down. Remove sodium restriction from diet. Add fluid restriction. 6. Diabetes mellitus type 2: Monitor Accu-Cheks and cover with sliding scale insulin. Diabetic diet. 7. DVT prophylaxis: SCDs. Discharge Planning Discharge to SNF soon. Case management assisting with discharge planning. Problem Qualifiers (1) DM (diabetes mellitus): Qualified Codes: E11.42 - Type 2 diabetes mellitus with diabetic polyneuropathy (2) Hyperlipidemia: Qualified Codes: E78.5 - Hyperlipidemia, unspecified Prince Boggs MD Oct 05, 2017 10:37
[2017-10-05] MEDS: ALUMINUM/MAGNESIUM/SIMETH 30 ML CUP PO PRN (20:13)
[2017-10-06] VITALS (8 sets, daily range): BP systolic 116–137; BP diastolic 55–67; PULSE 73–82; RESP 16–20; TEMP 97.2–97.9; O2SAT 96–98
[2017-10-06] MEDS: POTASSIUM PHOSPHATE/SODIUM PHOSPHATE 250 MG TAB PO SCH ×5 (00:30→23:33)
[2017-10-06] MEDS: DILTIAZEM HCL 30 MG TAB PO SCH ×5 (00:30→23:33)
[2017-10-06] MEDS: ACETAMINOPHEN/HYDROcodone 325 MG/5 MG TAB PO PRN ×4 (03:53→23:35)
[2017-10-06] MEDS: metFORMIN HCL 500 MG TAB PO SCH ×2 (06:09→06:37)
[2017-10-06 07:35] LABS: AUTOMATED NEUTROPHIL # 9.5 TH/MM3 (1.8-7.7); BASOPHIL % 0.3 % (0.0-2.0); EOSINOPHIL # 0.3 TH/MM3 (0-0.4); EOSINOPHIL % 2.3 % (0.0-4.0); HEMATOCRIT 32.3 % (39.0-51.0); HEMOGLOBIN 10.8 GM/DL (13.0-17.0); LYMPH % 13.2 % (9.0-44.0); LYMPHOCYTE # 1.6 TH/MM3 (1.0-4.8); MEAN CELL VOLUME 91.9 FL (80.0-100.0); MEAN CORPUSCULAR HEMOGLOBIN 30.9 PG (27.0-34.0); MEAN CORPUSCULAR HGB CONC 33.6 % (32.0-36.0); MEAN PLATELET VOLUME 6.6 FL (7.0-11.0); MONO % 7.8 % (0.0-8.0); NEUT % 76.4 % (16.0-70.0); PLATELET COUNT 683 TH/MM3 (150-450); RED BLOOD COUNT 3.51 MIL/MM3 (4.50-5.90); RED CELL DISTRIBUTION WIDTH 17.5 % (11.6-17.2); WHITE BLOOD COUNT 12.5 TH/MM3 (4.0-11.0)
[2017-10-06 08:01] LABS: CALCIUM 8.3 MG/DL (8.5-10.1); CREATININE 0.46 MG/DL (0.60-1.30); MAGNESIUM 1.5 MG/DL (1.5-2.5)
[2017-10-06 08:30] LABS: BANDS 4 % (0-6); LYMPHOCYTES 14 % (9-44); METAMYELOCYTES 2 % (0-1); MONOCYTES 1 % (0-8); NEUTROPHIL # MANUAL DIFF 10.3 TH/MM3 (1.8-7.7); POLYS (SEG NEUTROPHILS) 76 % (16-70); TOXIC GRANULATION 1+ (NORMAL)
[2017-10-06] MEDS: MEGESTROL ACETATE SUSP 400 MG/10 ML CUP PO SCH (08:43)
[2017-10-06] MEDS: PRAVASTATIN SOD 40 MG TAB PO SCH (08:43)
[2017-10-06] MEDS: FOLIC ACID 1 MG TAB PO SCH (08:43)
[2017-10-06] MEDS: GABAPENTIN 300 MG CAP PO SCH (08:43)
[2017-10-06] MEDS: FERROUS SULFATE 325 MG (65 MG ELEMENTAL IRON) TAB PO SCH (08:43)
[2017-10-06] MEDS: AMIODARONE 200 MG TAB PO SCH (08:43)
[2017-10-06] MEDS: LACTOBACILLUS ACIDOPHILUS TAB PO SCH (08:43)
[2017-10-06] MEDS: SODIUM CHLORIDE 0.9% FLUSH 10 ML FLUSH IV FLUSH SCH ×2 (08:44→21:20)
[2017-10-06] MEDS: INSULIN ASPART SUPPLEMENTAL SCALE SQ SCH ×4 (08:44→21:25)
[2017-10-06] MEDS: MAGNESIUM OXIDE 400 MG TAB PO SCH (11:22)
--- NOTE | 2017-10-06 11:41 | HHI.PR ---
Subjective Remarks Electrolyte abnormalities, weakness. Patient still having pain in his right hip. Complaining of difficulty sleeping and requesting medication for insomnia. Objective Vitals Vital Signs Date Time Temp Pulse Resp B/P (MAP) Pulse Ox O2 Delivery O2 Flow Rate FiO2 10/06/17 08:00 97.3 77 16 126/60 (82) 96 10/06/17 04:00 97.2 75 20 118/59 (78) 96 10/06/17 03:52 75 10/06/17 00:00 97.9 73 19 116/55 (75) 96 10/05/17 23:44 76 10/05/17 20:01 82 10/05/17 20:00 97.6 84 20 144/79 (100) 95 10/05/17 16:00 98.2 81 20 147/105 (119) 98 10/05/17 12:00 97.3 85 18 191/83 (119) 97 I/O 10/05/17 10/05/17 10/05/17 10/06/17 10/06/17 10/06/17 07:00 15:00 23:00 07:00 15:00 23:00 Intake Total 900 ml 500 ml 650 ml Output Total 700 ml 1000 ml 950 ml Balance 200 ml -500 ml -300 ml Intake Oral 900 ml 500 ml 650 ml Output Urine Total 700 ml 1000 ml 950 ml # Bowel Movements 0 Result Diagram: 10/06/17 0652 10/06/17 0652 Imaging Last Impressions Abdomen/Pelvis CT 09/30/17 0000 Signed Impressions: Service Date/Time: Sunday, October 01, 2017 00:07 - CONCLUSION: 1. No obstruction or acute inflammatory changes are demonstrated. 2. Nonspecific distention of the stomach. 3. Considerable stool throughout the colon. Nonspecific slight ascites. There is also body wall edema/anasarca and trace bibasilar pleural effusions. 4. A few scattered benign cysts of both kidneys. 5. Probable left adrenal adenomas. 6. Nonobstructing stones of the left kidney. 7. Atherosclerosis of the abdominal aorta. 8. Sigmoid colon diverticulosis without evidence of diverticulitis. 9. Nonacute appearing subchondral fragmentation/collapse of the right femoral head. Hipolito Ryder MD Chest X-Ray 09/23/171920 Signed Impressions: Service Date/Time: Saturday, September 23, 2017 19:35 - CONCLUSION: 1. No active disease. Nicholas Jacobsen MD Objective Remarks General: Elderly male in no acute distress. Heart: Regular rate and rhythm. No murmur. Lungs: Clear to auscultation bilaterally. No wheezes, rales, or rhonchi. Breathing is nonlabored. Abdomen: Soft, nontender, nondistended. Extremities: No lower extremity edema. Psych: Alert and oriented. Neuro: Normal speech. No focal deficits noted. Procedures 10/03/17 flexible sigmoidoscopy Urinary Catheter: No Vascular Central Line Catheter: No A/P Problem List: (1) Self-care deficit in patient living alone ICD Code: R46.89 - Other symptoms and signs involving appearance and behavior Status: Acute (2) DM (diabetes mellitus) ICD Code: E11.9 - Type 2 diabetes mellitus without complications Status: Chronic (3) Dehydration ICD Code: E86.0 - Dehydration Status: Resolved (4) Hyponatremia ICD Code: E87.1 - Hypo-osmolality and hyponatremia Status: Resolved (5) Failure to thrive in adult ICD Code: R62.7 - Adult failure to thrive Status: Acute (6) Generalized weakness ICD Code: R53.1 - Weakness Status: Acute (7) Hyperlipidemia ICD Code: E78.5 - Hyperlipidemia, unspecified Status: Chronic (8) Severe protein-calorie malnutrition ICD Code: E43 - Unspecified severe protein-calorie malnutrition Status: Acute Assessment and Plan 1. SVT with occasional paroxysmal atrial fibrillation: Continue amiodarone, beta-rina, calcium channel rina. Digoxin as needed. Rate is stable. Appreciate cardiology recommendations. 2. Failure to thrive, severe protein calorie malnutrition, generalized weakness : Patient states that he lost 60 pounds in a matter of months while in [facility] facilities because he did not eat well there. He is now agreeable to SNF placement at discharge. Continue physical therapy. Encourage oral intake. Continue Glucerna shakes. Continue Megace. Appreciate dietary recommendations. 3. Hypoglycemia: Resolved. 4. Anemia: Hemoglobin improved following transfusion. Appreciate GI recommendations. No active bleeding noted on endoscopy, sigmoidoscopy. GI signed off. 5. Hyponatremia: Sodium is low, but stable. Remove sodium restriction from diet. Continue fluid restriction. 6. Diabetes mellitus type 2: Monitor Accu-Cheks and cover with sliding scale insulin. Diabetic diet. 7. DVT prophylaxis: SCDs. Discharge Planning Discharge to SNF tomorrow. Problem Qualifiers (1) DM (diabetes mellitus): Qualified Codes: E11.42 - Type 2 diabetes mellitus with diabetic polyneuropathy (2) Hyperlipidemia: Qualified Codes: E78.5 - Hyperlipidemia, unspecified Prince Boggs MD Oct 06, 2017 11:40
[2017-10-06] MEDS: ALUMINUM/MAGNESIUM/SIMETH 30 ML CUP PO PRN (18:45)
[2017-10-06] MEDS: diphenhydrAMINE HCL 25 MG CAP PO PRN (21:19)
[2017-10-07] VITALS (8 sets, daily range): BP systolic 118–197; BP diastolic 58–81; PULSE 75–93; RESP 15–17; TEMP 97.1–98.1; O2SAT 96–98
[2017-10-07] MEDS: ALUMINUM/MAGNESIUM/SIMETH 30 ML CUP PO PRN (00:12)
[2017-10-07] MEDS: POTASSIUM PHOSPHATE/SODIUM PHOSPHATE 250 MG TAB PO SCH ×4 (06:19→23:29)
[2017-10-07] MEDS: metFORMIN HCL 500 MG TAB PO SCH (06:19)
[2017-10-07] MEDS: DILTIAZEM HCL 30 MG TAB PO SCH ×4 (06:19→23:28)
[2017-10-07 06:22] LABS: AUTOMATED NEUTROPHIL # 14.3 TH/MM3 (1.8-7.7); BASOPHIL # 0.1 TH/MM3 (0-0.2); BASOPHIL % 0.3 % (0.0-2.0); EOSINOPHIL # 0.4 TH/MM3 (0-0.4); EOSINOPHIL % 2.1 % (0.0-4.0); HEMATOCRIT 34.5 % (39.0-51.0); HEMOGLOBIN 10.9 GM/DL (13.0-17.0); LYMPH % 9.7 % (9.0-44.0); LYMPHOCYTE # 1.7 TH/MM3 (1.0-4.8); MEAN CELL VOLUME 96.6 FL (80.0-100.0); MEAN CORPUSCULAR HEMOGLOBIN 30.7 PG (27.0-34.0); MEAN CORPUSCULAR HGB CONC 31.8 % (32.0-36.0); MEAN PLATELET VOLUME 6.5 FL (7.0-11.0); MONO % 7.4 % (0.0-8.0); MONOCYTE # 1.3 TH/MM3 (0-0.9); NEUT % 80.5 % (16.0-70.0); PLATELET COUNT 773 TH/MM3 (150-450); RED BLOOD COUNT 3.57 MIL/MM3 (4.50-5.90); RED CELL DISTRIBUTION WIDTH 17.5 % (11.6-17.2); WHITE BLOOD COUNT 17.7 TH/MM3 (4.0-11.0)
[2017-10-07 06:39] LABS: BICARBONATE 20.5 MEQ/L (21.0-32.0); CALCIUM 8.3 MG/DL (8.5-10.1); CREATININE 0.63 MG/DL (0.60-1.30); MAGNESIUM 1.5 MG/DL (1.5-2.5)
[2017-10-07] MEDS ORDERED: MAGNESIUM SULFATE 1 GM PREMIX 100 ML IV ONE (07:45)
[2017-10-07] MEDS: SODIUM CHLOR 0.9% 1000 ML INJ 1,000 ML IV SCH ×2 (08:30→20:32)
[2017-10-07] MEDS: INSULIN ASPART SUPPLEMENTAL SCALE SQ SCH ×4 (12:00→20:38)
[2017-10-07] MEDS: FOLIC ACID 1 MG TAB PO SCH (12:22)
[2017-10-07] MEDS: AMIODARONE 200 MG TAB PO SCH (12:22)
[2017-10-07] MEDS: SODIUM CHLORIDE 0.9% FLUSH 10 ML FLUSH IV FLUSH SCH ×2 (12:22→20:32)
[2017-10-07] MEDS: FERROUS SULFATE 325 MG (65 MG ELEMENTAL IRON) TAB PO SCH (12:22)
[2017-10-07] MEDS: LACTOBACILLUS ACIDOPHILUS TAB PO SCH (12:23)
[2017-10-07] MEDS: GABAPENTIN 300 MG CAP PO SCH (12:23)
[2017-10-07] MEDS: MAGNESIUM OXIDE 400 MG TAB PO SCH (12:23)
[2017-10-07] MEDS: MEGESTROL ACETATE SUSP 400 MG/10 ML CUP PO SCH (12:23)
[2017-10-07] MEDS: PRAVASTATIN SOD 40 MG TAB PO SCH (12:23)
--- NOTE | 2017-10-07 13:51 | HHI.PR ---
Subjective Remarks Follow up hyponatremia. Patient states that his right hip pain is better today. Denies chest pain, dyspnea. He feels tired today. Objective Vitals Vital Signs Date Time Temp Pulse Resp B/P (MAP) Pulse Ox O2 Delivery O2 Flow Rate FiO2 10/07/17 12:00 97.5 80 17 126/59 (81) 98 10/07/17 08:00 97.6 83 17 118/58 (78) 96 10/07/17 04:00 97.8 90 17 157/73 (101) 97 10/07/17 00:03 93 10/07/17 00:00 97.8 90 17 197/81 (119) 97 10/06/17 20:00 97.8 82 19 130/67 (88) 96 10/06/17 19:58 81 10/06/17 16:00 97.3 80 16 127/61 (83) 97 I/O 10/06/17 10/06/17 10/06/17 10/07/17 10/07/17 10/07/17 07:00 15:00 23:00 07:00 15:00 23:00 Intake Total 650 ml 700 ml 100 ml Output Total 950 ml 1600 ml 400 ml Balance -300 ml -900 ml -400 ml 100 ml Intake Oral 650 ml 700 ml IV Total 100 ml Output Urine Total 950 ml 1600 ml 400 ml # Bowel Movements 0 Result Diagram: 10/07/17 0445 10/07/17 0445 Imaging Last Impressions Abdomen/Pelvis CT 09/30/17 0000 Signed Impressions: Service Date/Time: Sunday, October 01, 2017 00:07 - CONCLUSION: 1. No obstruction or acute inflammatory changes are demonstrated. 2. Nonspecific distention of the stomach. 3. Considerable stool throughout the colon. Nonspecific slight ascites. There is also body wall edema/anasarca and trace bibasilar pleural effusions. 4. A few scattered benign cysts of both kidneys. 5. Probable left adrenal adenomas. 6. Nonobstructing stones of the left kidney. 7. Atherosclerosis of the abdominal aorta. 8. Sigmoid colon diverticulosis without evidence of diverticulitis. 9. Nonacute appearing subchondral fragmentation/collapse of the right femoral head. Hipolito Ryder MD Chest X-Ray 09/23/171920 Signed Impressions: Service Date/Time: Saturday, September 23, 2017 19:35 - CONCLUSION: 1. No active disease. Nicholas Jacobsen MD Objective Remarks General: Elderly male in no acute distress. Heart: Regular rate and rhythm. No murmur. Lungs: Clear to auscultation bilaterally. No wheezes, rales, or rhonchi. Breathing is nonlabored. Abdomen: Soft, nontender, nondistended. Extremities: No lower extremity edema. Psych: Alert and oriented. Neuro: Normal speech. No focal deficits noted. Procedures 10/03/17 flexible sigmoidoscopy Urinary Catheter: No Vascular Central Line Catheter: No A/P Problem List: (1) Self-care deficit in patient living alone ICD Code: R46.89 - Other symptoms and signs involving appearance and behavior Status: Acute (2) DM (diabetes mellitus) ICD Code: E11.9 - Type 2 diabetes mellitus without complications Status: Chronic (3) Dehydration ICD Code: E86.0 - Dehydration Status: Resolved (4) Hyponatremia ICD Code: E87.1 - Hypo-osmolality and hyponatremia Status: Resolved (5) Failure to thrive in adult ICD Code: R62.7 - Adult failure to thrive Status: Acute (6) Generalized weakness ICD Code: R53.1 - Weakness Status: Acute (7) Hyperlipidemia ICD Code: E78.5 - Hyperlipidemia, unspecified Status: Chronic (8) Severe protein-calorie malnutrition ICD Code: E43 - Unspecified severe protein-calorie malnutrition Status: Acute Assessment and Plan 1. SVT with occasional paroxysmal atrial fibrillation: Continue amiodarone, beta-rina, calcium channel rina. Digoxin as needed. Rate is stable. Appreciate cardiology recommendations. 2. Failure to thrive, severe protein calorie malnutrition, generalized weakness : Patient states that he lost 60 pounds in a matter of months while in long term facilities because he did not eat well there. He is now agreeable to SNF placement at discharge. Continue physical therapy. Encourage oral intake. Continue Glucerna shakes. Continue Megace. Appreciate dietary recommendations. 3. Hypoglycemia: Resolved. 4. Anemia: Hemoglobin improved following transfusion. Appreciate GI recommendations. No active bleeding noted on endoscopy, sigmoidoscopy. GI signed off. 5. Hyponatremia: Sodium decreased today. Remove sodium restriction from diet. Continue fluid restriction. Restart IV fluids. 6. Diabetes mellitus type 2: Monitor Accu-Cheks and cover with sliding scale insulin. Diabetic diet. 7. DVT prophylaxis: SCDs. 8. Hypomagnesemia: Supplement magnesium IV. Discharge Planning Discharge to SNF soon, pending further clinical improvement. Problem Qualifiers (1) DM (diabetes mellitus): Qualified Codes: E11.42 - Type 2 diabetes mellitus with diabetic polyneuropathy (2) Hyperlipidemia: Qualified Codes: E78.5 - Hyperlipidemia, unspecified Prince Boggs MD Oct 07, 2017 13:51
[2017-10-07] MEDS: ACETAMINOPHEN/HYDROcodone 325 MG/5 MG TAB PO PRN (20:36)
[2017-10-08] VITALS: BP 125/62; PULSE 72; RESP 15; TEMP 97; O2SAT 95
[2017-10-08] MEDS: ALUMINUM/MAGNESIUM/SIMETH 30 ML CUP PO PRN (02:08)
[2017-10-08 04:00] VITALS: BP 126/72; PULSE 79; RESP 15; TEMP 97.1; O2SAT 94
[2017-10-08 04:56] LABS: AUTOMATED NEUTROPHIL # 11.5 TH/MM3 (1.8-7.7); BASOPHIL # 0.1 TH/MM3 (0-0.2); BASOPHIL % 0.6 % (0.0-2.0); EOSINOPHIL # 0.4 TH/MM3 (0-0.4); EOSINOPHIL % 2.8 % (0.0-4.0); HEMATOCRIT 30.3 % (39.0-51.0); HEMOGLOBIN 10.2 GM/DL (13.0-17.0); LYMPH % 10.6 % (9.0-44.0); LYMPHOCYTE # 1.6 TH/MM3 (1.0-4.8); MEAN CELL VOLUME 92.4 FL (80.0-100.0); MEAN CORPUSCULAR HEMOGLOBIN 31.3 PG (27.0-34.0); MEAN CORPUSCULAR HGB CONC 33.9 % (32.0-36.0); MEAN PLATELET VOLUME 6.6 FL (7.0-11.0); MONO % 7.8 % (0.0-8.0); MONOCYTE # 1.1 TH/MM3 (0-0.9); NEUT % 78.2 % (16.0-70.0); PLATELET COUNT 696 TH/MM3 (150-450); RED BLOOD COUNT 3.27 MIL/MM3 (4.50-5.90); WHITE BLOOD COUNT 14.7 TH/MM3 (4.0-11.0)
[2017-10-08 05:14] LABS: BICARBONATE 22.9 MEQ/L (21.0-32.0); CALCIUM 8.4 MG/DL (8.5-10.1); CREATININE 0.47 MG/DL (0.60-1.30); MAGNESIUM 1.5 MG/DL (1.5-2.5)
[2017-10-08] MEDS: DILTIAZEM HCL 30 MG TAB PO SCH ×3 (06:21→16:57)
[2017-10-08] MEDS: POTASSIUM PHOSPHATE/SODIUM PHOSPHATE 250 MG TAB PO SCH ×3 (06:21→16:58)
[2017-10-08 08:00] VITALS: BP 119/65; PULSE 80; RESP 18; TEMP 98.2; O2SAT 94
[2017-10-08] MEDS: SODIUM CHLORIDE 0.9% FLUSH 10 ML FLUSH IV FLUSH SCH ×2 (09:00→20:01)
[2017-10-08] MEDS: INSULIN ASPART SUPPLEMENTAL SCALE SQ SCH ×4 (09:42→20:00)
[2017-10-08] MEDS: MEGESTROL ACETATE SUSP 400 MG/10 ML CUP PO SCH (09:43)
[2017-10-08] MEDS: AMIODARONE 200 MG TAB PO SCH (09:45)
[2017-10-08] MEDS: FERROUS SULFATE 325 MG (65 MG ELEMENTAL IRON) TAB PO SCH (09:45)
[2017-10-08] MEDS: LACTOBACILLUS ACIDOPHILUS TAB PO SCH (09:45)
[2017-10-08] MEDS: FOLIC ACID 1 MG TAB PO SCH (09:45)
[2017-10-08] MEDS: PRAVASTATIN SOD 40 MG TAB PO SCH (09:45)
[2017-10-08] MEDS: MAGNESIUM OXIDE 400 MG TAB PO SCH ×2 (09:45→20:01)
[2017-10-08] MEDS: GABAPENTIN 300 MG CAP PO SCH (09:49)
[2017-10-08] MEDS: metFORMIN HCL 500 MG TAB PO SCH (11:51)
[2017-10-08] MEDS: SODIUM CHLOR 0.9% 1000 ML INJ 1,000 ML IV SCH ×2 (11:52→19:59)
[2017-10-08 12:00] VITALS: BP 122/60; PULSE 92; RESP 18; TEMP 98.1; O2SAT 96
--- NOTE | 2017-10-08 13:27 | HHI.PR ---
Subjective Remarks Follow-up hyponatremia. The patient reports heartburn. He states that the symptoms depend on what he is eating. Also still having pain in his right hip. Objective Vitals Vital Signs Date Time Temp Pulse Resp B/P (MAP) Pulse Ox O2 Delivery O2 Flow Rate FiO2 10/08/17 12:00 98.1 92 18 122/60 (80) 96 10/08/17 08:00 98.2 80 18 119/65 (83) 94 10/08/17 04:00 79 10/08/17 04:00 97.1 79 15 126/72 (90) 94 10/08/17 00:00 97.0 72 15 125/62 (83) 95 10/07/17 23:59 82 10/07/17 21:36 18 10/07/17 20:00 97.1 75 15 127/60 (82) 97 10/07/17 20:00 77 10/07/17 16:00 98.1 78 17 132/62 (85) 98 I/O 10/07/17 10/07/17 10/07/17 10/08/17 10/08/17 10/08/17 07:00 15:00 23:00 07:00 15:00 23:00 Intake Total 100 ml 2000 ml 240 ml Output Total 400 ml 800 ml 3000 ml Balance -400 ml 100 ml 1200 ml -2760 ml Intake Oral 800 ml 240 ml IV Total 100 ml 1200 ml Output Urine Total 400 ml 800 ml 3000 ml # Voids 2 # Bowel Movements 0 0 Result Diagram: 10/08/17 0422 10/08/17 0422 Imaging Last Impressions Abdomen/Pelvis CT 09/30/17 0000 Signed Impressions: Service Date/Time: Sunday, October 01, 2017 00:07 - CONCLUSION: 1. No obstruction or acute inflammatory changes are demonstrated. 2. Nonspecific distention of the stomach. 3. Considerable stool throughout the colon. Nonspecific slight ascites. There is also body wall edema/anasarca and trace bibasilar pleural effusions. 4. A few scattered benign cysts of both kidneys. 5. Probable left adrenal adenomas. 6. Nonobstructing stones of the left kidney. 7. Atherosclerosis of the abdominal aorta. 8. Sigmoid colon diverticulosis without evidence of diverticulitis. 9. Nonacute appearing subchondral fragmentation/collapse of the right femoral head. Hipolito Ryder MD Chest X-Ray 09/23/171920 Signed Impressions: Service Date/Time: Saturday, September 23, 2017 19:35 - CONCLUSION: 1. No active disease. Nicholas Jacobsen MD Objective Remarks General: Elderly male in no acute distress. Sitting up in a chair. Heart: Regular rate and rhythm. No murmur. Lungs: Clear to auscultation bilaterally. No wheezes, rales, or rhonchi. Breathing is nonlabored. Abdomen: Soft, nontender, nondistended. Extremities: No lower extremity edema. Psych: Alert and oriented. Neuro: Normal speech. No focal deficits noted. Procedures 10/03/17 flexible sigmoidoscopy Urinary Catheter: No Vascular Central Line Catheter: No A/P Problem List: (1) Self-care deficit in patient living alone ICD Code: R46.89 - Other symptoms and signs involving appearance and behavior Status: Acute (2) DM (diabetes mellitus) ICD Code: E11.9 - Type 2 diabetes mellitus without complications Status: Chronic (3) Dehydration ICD Code: E86.0 - Dehydration Status: Resolved (4) Hyponatremia ICD Code: E87.1 - Hypo-osmolality and hyponatremia Status: Resolved (5) Failure to thrive in adult ICD Code: R62.7 - Adult failure to thrive Status: Acute (6) Generalized weakness ICD Code: R53.1 - Weakness Status: Acute (7) Hyperlipidemia ICD Code: E78.5 - Hyperlipidemia, unspecified Status: Chronic (8) Severe protein-calorie malnutrition ICD Code: E43 - Unspecified severe protein-calorie malnutrition Status: Acute Assessment and Plan 1. SVT with occasional paroxysmal atrial fibrillation: Continue amiodarone, beta-rina, calcium channel rina. Digoxin as needed. Rate is stable. Appreciate cardiology recommendations. 2. Failure to thrive, severe protein calorie malnutrition, generalized weakness : Patient states that he lost 60 pounds in a matter of months while in custodial facilities because he did not eat well there. He is now agreeable to SNF placement at discharge. Continue physical therapy. Encourage oral intake. Continue Glucerna shakes. Continue Megace. Appreciate dietary recommendations. 3. Hypoglycemia: Resolved. 4. Anemia: Hemoglobin improved following transfusion. Appreciate GI recommendations. No active bleeding noted on endoscopy, sigmoidoscopy. GI signed off. 5. Hyponatremia: Sodium improving with IV fluids. Remove sodium restriction from diet. Continue fluid restriction. Monitor labs. 6. Diabetes mellitus type 2: Monitor Accu-Cheks and cover with sliding scale insulin. Diabetic diet. 7. DVT prophylaxis: SCDs. 8. Hypomagnesemia: Supplement magnesium. Discharge Planning Plan for discharge to SNF when labs are stable. Currently patient's sodium is stable while on IV fluids, but decreases when the IV fluids are discontinued. Problem Qualifiers (1) DM (diabetes mellitus): Qualified Codes: E11.42 - Type 2 diabetes mellitus with diabetic polyneuropathy (2) Hyperlipidemia: Qualified Codes: E78.5 - Hyperlipidemia, unspecified Prince Boggs MD Oct 08, 2017 13:27
[2017-10-08 16:00] VITALS: BP 155/66; PULSE 87; RESP 18; TEMP 98.1; O2SAT 94
[2017-10-08 20:00] VITALS: BP 162/73; PULSE 80; RESP 20; TEMP 98; O2SAT 98
[2017-10-08] MEDS: ACETAMINOPHEN/HYDROcodone 325 MG/5 MG TAB PO PRN (20:01)
[2017-10-09] VITALS: BP 109/57; PULSE 75; RESP 20; TEMP 97.9; O2SAT 97
[2017-10-09] MEDS: DILTIAZEM HCL 30 MG TAB PO SCH ×5 (00:09→23:15)
[2017-10-09] MEDS: POTASSIUM PHOSPHATE/SODIUM PHOSPHATE 250 MG TAB PO SCH ×5 (00:09→23:15)
[2017-10-09 04:00] VITALS: BP 115/56; PULSE 71; RESP 20; TEMP 97.9; O2SAT 96
[2017-10-09 08:00] VITALS: BP 110/59; PULSE 71; RESP 16; TEMP 97.9; O2SAT 96
[2017-10-09 08:44] LABS: AUTOMATED NEUTROPHIL # 9.3 TH/MM3 (1.8-7.7); BASOPHIL # 0.1 TH/MM3 (0-0.2); BASOPHIL % 0.5 % (0.0-2.0); EOSINOPHIL # 0.4 TH/MM3 (0-0.4); EOSINOPHIL % 2.9 % (0.0-4.0); HEMATOCRIT 30.2 % (39.0-51.0); HEMOGLOBIN 10.1 GM/DL (13.0-17.0); LYMPH % 12.9 % (9.0-44.0); LYMPHOCYTE # 1.6 TH/MM3 (1.0-4.8); MEAN CELL VOLUME 93.1 FL (80.0-100.0); MEAN CORPUSCULAR HGB CONC 33.3 % (32.0-36.0); MEAN PLATELET VOLUME 6.6 FL (7.0-11.0); MONOCYTE # 1.1 TH/MM3 (0-0.9); NEUT % 74.7 % (16.0-70.0); PLATELET COUNT 683 TH/MM3 (150-450); RED BLOOD COUNT 3.24 MIL/MM3 (4.50-5.90); RED CELL DISTRIBUTION WIDTH 16.8 % (11.6-17.2); WHITE BLOOD COUNT 12.4 TH/MM3 (4.0-11.0)
[2017-10-09] MEDS: SODIUM CHLORIDE 0.9% FLUSH 10 ML FLUSH IV FLUSH SCH ×2 (09:00→20:00)
[2017-10-09] MEDS: INSULIN ASPART SUPPLEMENTAL SCALE SQ SCH ×4 (09:05→20:06)
[2017-10-09] MEDS: FERROUS SULFATE 325 MG (65 MG ELEMENTAL IRON) TAB PO SCH (09:06)
[2017-10-09] MEDS: FOLIC ACID 1 MG TAB PO SCH (09:06)
[2017-10-09] MEDS: MAGNESIUM OXIDE 400 MG TAB PO SCH ×2 (09:06→20:00)
[2017-10-09] MEDS: PRAVASTATIN SOD 40 MG TAB PO SCH (09:06)
[2017-10-09] MEDS: MEGESTROL ACETATE SUSP 400 MG/10 ML CUP PO SCH (09:06)
[2017-10-09] MEDS: GABAPENTIN 300 MG CAP PO SCH (09:06)
[2017-10-09] MEDS: LACTOBACILLUS ACIDOPHILUS TAB PO SCH (09:06)
[2017-10-09] MEDS: AMIODARONE 200 MG TAB PO SCH (09:06)
[2017-10-09 09:07] LABS: BICARBONATE 20.7 MEQ/L (21.0-32.0); CREATININE 0.44 MG/DL (0.60-1.30); MAGNESIUM 1.5 MG/DL (1.5-2.5)
[2017-10-09] MEDS: SODIUM CHLOR 0.9% 1000 ML INJ 1,000 ML IV SCH (09:09)
[2017-10-09] MEDS: ACETAMINOPHEN/HYDROcodone 325 MG/5 MG TAB PO PRN ×2 (09:13→17:42)
[2017-10-09 09:27] LABS: BANDS 7 % (0-6); BASOPHILS 1 % (0-2); LYMPHOCYTES 14 % (9-44); MONOCYTES 4 % (0-8); MYELOCYTES 2 % (0-0); NEUTROPHIL # MANUAL DIFF 9.5 TH/MM3 (1.8-7.7); POLYS (SEG NEUTROPHILS) 68 % (16-70)
[2017-10-09 09:28] LABS: BURR CELLS 1+ (NORMAL); KERATOCYTES 1+ (NORMAL); TOXIC GRANULATION 1+ (NORMAL); TOXIC VACUOLATION PRESENT (NONE SEEN)
[2017-10-09 12:00] VITALS: BP 108/57; PULSE 77; RESP 17; TEMP 97.8; O2SAT 97
[2017-10-09] MEDS: metFORMIN HCL 500 MG TAB PO SCH (12:39)
[2017-10-09] MEDS: CALCIUM CARBONATE 500 MG CHEWABLE TAB CHEW PRN (14:33)
--- NOTE | 2017-10-09 15:10 | HHI.PR ---
Subjective Remarks Patient says that appetite seems to be improving. Denies any chest pain shortness of breath. Objective Vital Signs Date Time Temp Pulse Resp B/P (MAP) Pulse Ox O2 Delivery O2 Flow Rate FiO2 10/09/17 12:00 97.8 77 17 108/57 (74) 97 10/09/17 08:00 97.9 71 16 110/59 (76) 96 10/09/17 04:00 97.9 71 20 115/56 (75) 96 10/09/17 00:00 97.9 75 20 109/57 (74) 97 10/08/17 20:00 98.0 80 20 162/73 (102) 98 10/08/17 16:00 98.1 87 18 155/66 (95) 94 I/O 10/08/17 10/08/17 10/08/17 10/09/17 10/09/17 10/09/17 07:00 15:00 23:00 07:00 15:00 23:00 Intake Total 240 ml 1680 ml 996 ml Output Total 3000 ml 1300 ml 2600 ml Balance -2760 ml 380 ml -1604 ml Intake Oral 240 ml 480 ml 240 ml IV Total 1200 ml 756 ml Output Urine Total 3000 ml 1300 ml 2600 ml # Bowel Movements 0 0 Result Diagram: 10/09/1772810/09/17728 Objective Remarks GENERAL: Patient sitting up in bed. Appears comfortable. SKIN: Warm and dry. HEAD: Normocephalic. EYES: No scleral icterus. No injection or drainage. NECK: Supple, trachea midline. No JVD. CARDIOVASCULAR: Regular rate and rhythm without murmurs, gallops, or rubs. RESPIRATORY: Breath sounds equal bilaterally. No accessory muscle use. GASTROINTESTINAL: Abdomen soft, non-tender, nondistended. MUSCULOSKELETAL: No cyanosis, or edema. BACK: Nontender without obvious deformity. No CVA tenderness. A/P Assessment and Plan //SVT with occasional paroxysmal atrial fibrillation: Continue amiodarone, beta- rina, calcium channel rina. Digoxin as needed. Rate is stable. Appreciate cardiology recommendations. //Failure to thrive, severe protein calorie malnutrition, generalized weakness: Patient states that he lost 60 pounds in a matter of months while in assisted facilities because he did not eat well there. He is now agreeable to SNF placement at discharge. Continue physical therapy. Encourage oral intake. Continue Glucerna shakes. Continue Megace. Appreciate dietary recommendations. = 10/09. We will stop metformin which can cause decreased appetite. //Hypoglycemia: Resolved. //Anemia: Hemoglobin improved following transfusion. Appreciate GI recommendations. No active bleeding noted on endoscopy, sigmoidoscopy. GI signed off. // Hyponatremia: Sodium improving with IV fluids. Remove sodium restriction from diet. Continue fluid restriction. Monitor labs. = 10/09. Hopefully appetite will improve off of metformin. Continue IV fluids. Replace magnesium. Obtain a monitor. // Diabetes mellitus type 2: Monitor Accu-Cheks and cover with sliding scale insulin. Diabetic diet. //Hypomagnesemia: Supplement magnesium. // DVT prophylaxis: SCDs. Discharge Planning Plan for discharge to SNF when labs are stable. Currently patient's sodium is stable while on IV fluids, but decreases when the IV fluids are discontinued. Johnathan Santos MD Oct 09, 2017 15:10
[2017-10-09] MEDS ORDERED: DOCUSATE SODIUM 50 MG/SENNA 8.6 MG TAB PO ONE (15:30)
[2017-10-09] MEDS ORDERED: MAGNESIUM SULFATE 1 GM PREMIX 100 ML IV ONE (15:30)
[2017-10-09 16:00] VITALS: BP 111/56; PULSE 77; RESP 18; TEMP 97.6; O2SAT 96
[2017-10-09] MEDS ORDERED: SODIUM CHLORID 0.9% 500 ML INJ 500 ML IV ONE (16:00)
[2017-10-09 20:11] VITALS: BP 122/60; PULSE 82; RESP 17; TEMP 97.8; O2SAT 96
[2017-10-10] VITALS (8 sets, daily range): BP systolic 115–134; BP diastolic 57–71; PULSE 64–96; RESP 16–20; TEMP 97.6–98.8; O2SAT 96–97
[2017-10-10 04:49] LABS: AUTOMATED NEUTROPHIL # 13.3 TH/MM3 (1.8-7.7); BASOPHIL # 0.1 TH/MM3 (0-0.2); BASOPHIL % 0.3 % (0.0-2.0); EOSINOPHIL # 0.4 TH/MM3 (0-0.4); EOSINOPHIL % 2.5 % (0.0-4.0); HEMATOCRIT 29.7 % (39.0-51.0); LYMPHOCYTE # 1.8 TH/MM3 (1.0-4.8); MEAN CELL VOLUME 92.4 FL (80.0-100.0); MEAN CORPUSCULAR HGB CONC 33.6 % (32.0-36.0); MEAN PLATELET VOLUME 6.6 FL (7.0-11.0); MONO % 6.7 % (0.0-8.0); MONOCYTE # 1.1 TH/MM3 (0-0.9); NEUT % 79.5 % (16.0-70.0); PLATELET COUNT 687 TH/MM3 (150-450); RED BLOOD COUNT 3.21 MIL/MM3 (4.50-5.90); RED CELL DISTRIBUTION WIDTH 17.1 % (11.6-17.2); WHITE BLOOD COUNT 16.8 TH/MM3 (4.0-11.0)
[2017-10-10] MEDS: POTASSIUM PHOSPHATE/SODIUM PHOSPHATE 250 MG TAB PO SCH ×3 (04:55→17:19)
[2017-10-10] MEDS: DILTIAZEM HCL 30 MG TAB PO SCH ×3 (04:56→17:19)
[2017-10-10] MEDS: ACETAMINOPHEN/HYDROcodone 325 MG/5 MG TAB PO PRN ×2 (04:56→21:53)
[2017-10-10 05:07] LABS: ALBUMIN 2.1 GM/DL (3.4-5.0); BICARBONATE 19.8 MEQ/L (21.0-32.0); CREATININE 0.54 MG/DL (0.60-1.30); MAGNESIUM 1.5 MG/DL (1.5-2.5); PHOSPHORUS 2.1 MG/DL (2.5-4.9)
[2017-10-10] MEDS: INSULIN ASPART SUPPLEMENTAL SCALE SQ SCH ×4 (08:00→19:34)
[2017-10-10] MEDS: SODIUM CHLORIDE 0.9% FLUSH 10 ML FLUSH IV FLUSH SCH ×2 (09:00→19:34)
[2017-10-10] MEDS: LACTOBACILLUS ACIDOPHILUS TAB PO SCH (09:20)
[2017-10-10] MEDS: MAGNESIUM OXIDE 400 MG TAB PO SCH ×2 (09:20→19:34)
[2017-10-10] MEDS: MEGESTROL ACETATE SUSP 400 MG/10 ML CUP PO SCH (09:20)
[2017-10-10] MEDS: FERROUS SULFATE 325 MG (65 MG ELEMENTAL IRON) TAB PO SCH (09:20)
[2017-10-10] MEDS: FOLIC ACID 1 MG TAB PO SCH (09:20)
[2017-10-10] MEDS: DOCUSATE SODIUM 50 MG/SENNA 8.6 MG TAB PO SCH (09:20)
[2017-10-10] MEDS: GABAPENTIN 300 MG CAP PO SCH (09:20)
[2017-10-10] MEDS: PRAVASTATIN SOD 40 MG TAB PO SCH (09:20)
[2017-10-10] MEDS: AMIODARONE 200 MG TAB PO SCH (09:21)
[2017-10-10] MEDS: MAGNESIUM SULFATE 1 GM PREMIX 100 ML IV SCH ×2 (10:06→10:15)
[2017-10-10 16:34] LABS: BICARBONATE 23.4 MEQ/L (21.0-32.0); CALCIUM 7.7 MG/DL (8.5-10.1); CREATININE 0.56 MG/DL (0.60-1.30)
--- NOTE | 2017-10-10 18:57 | HHI.PR ---
Subjective Remarks Patient says he is feeling all right. Denies any chest pain or shortness of breath. He reports his appetite is good and he ate breakfast. Objective Vital Signs Date Time Temp Pulse Resp B/P (MAP) Pulse Ox O2 Delivery O2 Flow Rate FiO2 10/10/17 16:00 98.0 78 16 115/57 (76) 97 10/10/17 15:27 96 10/10/17 11:40 97.8 64 18 124/71 (88) 96 10/10/17 08:39 98.0 75 20 118/61 (80) 10/10/17 04:54 98.8 83 20 134/66 (88) 96 10/10/17 00:00 97.6 84 20 120/59 (79) 96 10/09/17 20:11 97.8 82 17 122/60 (80) 96 I/O 10/09/17 10/09/17 10/09/17 10/10/17 10/10/17 10/10/17 07:00 15:00 23:00 07:00 15:00 23:00 Intake Total 996 ml 1220 ml 720 ml Output Total 2600 ml 950 ml 750 ml 1400 ml Balance -1604 ml 270 ml -750 ml -680 ml Intake Oral 240 ml 720 ml 720 ml IV Total 756 ml 500 ml 0 ml Output Urine Total 2600 ml 950 ml 750 ml 1400 ml # Bowel Movements 0 1 1 1 Result Diagram: 10/10/17 0350 10/10/17 1445 Objective Remarks GENERAL: Patient sitting up in bed. Appears comfortable.exam unchanged. SKIN: Warm and dry. HEAD: Normocephalic. EYES: No scleral icterus. No injection or drainage. NECK: Supple, trachea midline. No JVD. CARDIOVASCULAR: Regular rate and rhythm without murmurs, gallops, or rubs. RESPIRATORY: Breath sounds equal bilaterally. No accessory muscle use. GASTROINTESTINAL: Abdomen soft, non-tender, nondistended. MUSCULOSKELETAL: No cyanosis, or edema. BACK: Nontender without obvious deformity. No CVA tenderness. A/P Assessment and Plan 10/10/17 //Hyponatremia. //failure to thrive. //hypomagnesemia. -Sodium down to 127 off maintenance fluids.. Repeat this afternoon 128. If this continues stable by tomorrow morning we will consider discharge to SNF. Continue Megace for appetite stimulation.supplement magnesium. //SVT with occasional paroxysmal atrial fibrillation: Continue amiodarone, beta- rina, calcium channel rina. Digoxin as needed. Rate is stable. Appreciate cardiology recommendations. //Failure to thrive, severe protein calorie malnutrition, generalized weakness: Patient states that he lost 60 pounds in a matter of months while in long-term facilities because he did not eat well there. He is now agreeable to SNF placement at discharge. Continue physical therapy. Encourage oral intake. Continue Glucerna shakes. Continue Megace. Appreciate dietary recommendations. = 10/09. We will stop metformin which can cause decreased appetite. //Hypoglycemia: Resolved. //Anemia: Hemoglobin improved following transfusion. Appreciate GI recommendations. No active bleeding noted on endoscopy, sigmoidoscopy. GI signed off. // Hyponatremia: Sodium improving with IV fluids. Remove sodium restriction from diet. Continue fluid restriction. Monitor labs. = 10/09. Hopefully appetite will improve off of metformin. Continue IV fluids. Replace magnesium. contmonitor. // Diabetes mellitus type 2: Monitor Accu-Cheks and cover with sliding scale insulin. Diabetic diet. //Hypomagnesemia: Supplement magnesium. // DVT prophylaxis: SCDs. Discharge Planning Plan for discharge to SNF when labs are stable. Currently patient's sodium is stable while on IV fluids, but decreases when the IV fluids are discontinued. Johnathan Santos MD Oct 10, 2017 18:56
[2017-10-11] VITALS (12 sets, daily range): BP systolic 115–147; BP diastolic 59–72; PULSE 76–96; RESP 17–20; TEMP 97.1–99; O2SAT 94–98
[2017-10-11] MEDS: DILTIAZEM HCL 30 MG TAB PO SCH ×4 (00:16→17:05)
[2017-10-11] MEDS: POTASSIUM PHOSPHATE/SODIUM PHOSPHATE 250 MG TAB PO SCH ×4 (00:16→17:05)
[2017-10-11] MEDS: CALCIUM CARBONATE 500 MG CHEWABLE TAB CHEW PRN ×2 (02:28→06:04)
[2017-10-11 04:07] LABS: AUTOMATED NEUTROPHIL # 10.6 TH/MM3 (1.8-7.7); BASOPHIL # 0.1 TH/MM3 (0-0.2); BASOPHIL % 0.7 % (0.0-2.0); EOSINOPHIL # 0.4 TH/MM3 (0-0.4); HEMATOCRIT 29.6 % (39.0-51.0); LYMPH % 11.5 % (9.0-44.0); LYMPHOCYTE # 1.6 TH/MM3 (1.0-4.8); MEAN CORPUSCULAR HEMOGLOBIN 30.8 PG (27.0-34.0); MEAN CORPUSCULAR HGB CONC 33.9 % (32.0-36.0); MEAN PLATELET VOLUME 6.3 FL (7.0-11.0); MONO % 7.8 % (0.0-8.0); MONOCYTE # 1.1 TH/MM3 (0-0.9); PLATELET COUNT 716 TH/MM3 (150-450); RED BLOOD COUNT 3.25 MIL/MM3 (4.50-5.90); RED CELL DISTRIBUTION WIDTH 17.2 % (11.6-17.2); WHITE BLOOD COUNT 13.8 TH/MM3 (4.0-11.0)
[2017-10-11 04:38] LABS: BICARBONATE 21.7 MEQ/L (21.0-32.0); CALCIUM 7.8 MG/DL (8.5-10.1); CREATININE 0.5 MG/DL (0.60-1.30); MAGNESIUM 1.6 MG/DL (1.5-2.5)
[2017-10-11 04:39] LABS: PHOSPHORUS 2.7 MG/DL (2.5-4.9)
[2017-10-11 05:01] LABS: BANDS 8 % (0-6); LYMPHOCYTES 5 % (9-44); MONOCYTES 6 % (0-8); POLYS (SEG NEUTROPHILS) 79 % (16-70)
[2017-10-11 05:02] LABS: ACANTHOCYTES OCC (NORMAL)
[2017-10-11 05:03] LABS: HELMET CELLS 1+ (NORMAL)
[2017-10-11 05:05] LABS: TOXIC GRANULATION 1+ (NORMAL)
[2017-10-11] MEDS: SODIUM CHLORIDE 1 GRAM TAB PO SCH ×2 (07:45→10:06)
[2017-10-11] MEDS: GABAPENTIN 300 MG CAP PO SCH (08:41)
[2017-10-11] MEDS: MAGNESIUM OXIDE 400 MG TAB PO SCH ×2 (08:41→20:36)
[2017-10-11] MEDS: PRAVASTATIN SOD 40 MG TAB PO SCH (08:41)
[2017-10-11] MEDS: FOLIC ACID 1 MG TAB PO SCH (08:41)
[2017-10-11] MEDS: LACTOBACILLUS ACIDOPHILUS TAB PO SCH (08:41)
[2017-10-11] MEDS: MEGESTROL ACETATE SUSP 400 MG/10 ML CUP PO SCH (08:42)
[2017-10-11] MEDS: AMIODARONE 200 MG TAB PO SCH (08:42)
[2017-10-11] MEDS: FERROUS SULFATE 325 MG (65 MG ELEMENTAL IRON) TAB PO SCH (08:42)
[2017-10-11] MEDS: SODIUM CHLORIDE 0.9% FLUSH 10 ML FLUSH IV FLUSH SCH ×2 (08:43→20:36)
[2017-10-11] MEDS: INSULIN ASPART SUPPLEMENTAL SCALE SQ SCH ×4 (08:43→20:38)
[2017-10-11] MEDS: MAGNESIUM SULFATE 1 GM PREMIX 100 ML IV SCH ×2 (09:00→10:03)
[2017-10-11] MEDS: DOCUSATE SODIUM 50 MG/SENNA 8.6 MG TAB PO SCH (09:00)
[2017-10-11] MEDS: DRONABINOL 2.5 MG CAP PO SCH ×2 (11:00→16:00)
[2017-10-11 11:57] LABS: SODIUM,RANDOM URINE 147 MEQ/L
[2017-10-11 12:11] LABS: OSMOLALITY,URINE 553 MOSM/KG (300-1300)
[2017-10-11] MEDS: ACETAMINOPHEN/HYDROcodone 325 MG/5 MG TAB PO PRN (17:09)
--- NOTE | 2017-10-11 22:21 | HHI.PR ---
Subjective Remarks Patient seen today around 3 PM. 8 his entire lunch. He says that Marinol appears to be helping with his appetite. Objective Vital Signs Date Time Temp Pulse Resp B/P (MAP) Pulse Ox O2 Delivery O2 Flow Rate FiO2 10/11/17 20:00 97.9 79 17 115/59 (77) 98 10/11/17 16:00 97.8 87 18 127/67 (87) 94 10/11/17 15:09 86 10/11/17 12:00 98.1 86 20 122/72 (89) 98 10/11/17 10:37 96 10/11/17 07:21 97.7 83 18 129/61 (83) 96 10/11/17 05:04 98.0 80 18 134/63 (86) 96 10/11/17 04:43 80 10/11/17 01:00 97.1 79 17 124/61 (82) 97 10/11/17 00:14 99.0 78 18 147/70 (95) 95 10/11/17 00:01 76 I/O 10/10/17 10/10/17 10/10/17 10/11/17 10/11/17 10/11/17 07:00 15:00 23:00 07:00 15:00 23:00 Intake Total 720 ml 240 ml 1400 ml Output Total 750 ml 1400 ml 1000 ml 700 ml Balance -750 ml -680 ml -760 ml 700 ml Intake Oral 720 ml 240 ml 1200 ml IV Total 0 ml 200 ml Output Urine Total 750 ml 1400 ml 1000 ml 700 ml # Bowel Movements 1 1 2 2 Result Diagram: 10/11/17 0335 10/11/17 0335 Objective Remarks GENERAL: Patient sitting up in bed. Appears comfortable.exam unchanged. SKIN: Warm and dry. HEAD: Normocephalic. EYES: No scleral icterus. No injection or drainage. NECK: Supple, trachea midline. No JVD. CARDIOVASCULAR: Regular rate and rhythm without murmurs, gallops, or rubs. RESPIRATORY: Breath sounds equal bilaterally. No accessory muscle use. GASTROINTESTINAL: Abdomen soft, non-tender, nondistended. MUSCULOSKELETAL: No cyanosis, or edema. BACK: Nontender without obvious deformity. No CVA tenderness. A/P Assessment and Plan 10/11/17 //Hypotonic, euvolemic Hyponatremia. //failure to thrive. //hypomagnesemia. = Sodium 126 off of IV fluids. Magnesium 1.6. Replace. Reviewed urine and serum osmolality. Suspect salt wasting. We'll check cortisol and aldosterone. Start on salt tablets. Diet appears to be improving on Marinol and Megace. //SVT with occasional paroxysmal atrial fibrillation: Continue amiodarone, beta- rina, calcium channel rina. Digoxin as needed. Rate is stable. Appreciate cardiology recommendations. //Failure to thrive, severe protein calorie malnutrition, generalized weakness: Patient states that he lost 60 pounds in a matter of months while in detention facilities because he did not eat well there. He is now agreeable to SNF placement at discharge. Continue physical therapy. Encourage oral intake. Continue Glucerna shakes. Continue Megace. Appreciate dietary recommendations. = 10/09. We will stop metformin which can cause decreased appetite. //Hypoglycemia: Resolved. //Anemia: Hemoglobin improved following transfusion. Appreciate GI recommendations. No active bleeding noted on endoscopy, sigmoidoscopy. GI signed off. // Hyponatremia: Sodium improving with IV fluids. Remove sodium restriction from diet. Continue fluid restriction. Monitor labs. = 10/09. Hopefully appetite will improve off of metformin. Continue IV fluids. Replace magnesium. contmonitor. // Diabetes mellitus type 2: Monitor Accu-Cheks and cover with sliding scale insulin. Diabetic diet. //Hypomagnesemia: Supplement magnesium. // DVT prophylaxis: SCDs. Discharge Planning Plan for discharge to SNF when labs are stable. Currently patient's sodium is stable while on IV fluids, but decreases when the IV fluids are discontinued. Johnathan Santos MD Oct 11, 2017 22:21
[2017-10-12] VITALS (9 sets, daily range): BP systolic 108–132; BP diastolic 58–71; PULSE 72–87; RESP 16–20; TEMP 97.2–98.6; O2SAT 95–98
[2017-10-12] MEDS: POTASSIUM PHOSPHATE/SODIUM PHOSPHATE 250 MG TAB PO SCH ×5 (00:30→22:29)
[2017-10-12] MEDS: DILTIAZEM HCL 30 MG TAB PO SCH ×5 (00:30→22:29)
[2017-10-12 05:41] LABS: ALBUMIN 2.3 GM/DL (3.4-5.0); BICARBONATE 21.7 MEQ/L (21.0-32.0); CALCIUM 8.3 MG/DL (8.5-10.1); CREATININE 0.52 MG/DL (0.60-1.30); MAGNESIUM 1.7 MG/DL (1.5-2.5)
[2017-10-12 05:42] LABS: PHOSPHORUS 2.7 MG/DL (2.5-4.9)
[2017-10-12 08:07] LABS: AUTOMATED NEUTROPHIL # 9.2 TH/MM3 (1.8-7.7); BASOPHIL # 0.1 TH/MM3 (0-0.2); BASOPHIL % 0.8 % (0.0-2.0); EOSINOPHIL # 0.3 TH/MM3 (0-0.4); EOSINOPHIL % 2.2 % (0.0-4.0); HEMATOCRIT 31.1 % (39.0-51.0); HEMOGLOBIN 10.6 GM/DL (13.0-17.0); LYMPH % 9.5 % (9.0-44.0); LYMPHOCYTE # 1.1 TH/MM3 (1.0-4.8); MEAN CELL VOLUME 91.6 FL (80.0-100.0); MEAN CORPUSCULAR HEMOGLOBIN 31.3 PG (27.0-34.0); MEAN CORPUSCULAR HGB CONC 34.2 % (32.0-36.0); MEAN PLATELET VOLUME 6.4 FL (7.0-11.0); MONO % 8.1 % (0.0-8.0); MONOCYTE # 0.9 TH/MM3 (0-0.9); NEUT % 79.4 % (16.0-70.0); PLATELET COUNT 664 TH/MM3 (150-450); RED BLOOD COUNT 3.39 MIL/MM3 (4.50-5.90); RED CELL DISTRIBUTION WIDTH 17.1 % (11.6-17.2); WHITE BLOOD COUNT 11.6 TH/MM3 (4.0-11.0)
[2017-10-12] MEDS: INSULIN ASPART SUPPLEMENTAL SCALE SQ SCH ×4 (08:42→21:00)
[2017-10-12] MEDS: FERROUS SULFATE 325 MG (65 MG ELEMENTAL IRON) TAB PO SCH (08:43)
[2017-10-12] MEDS: MEGESTROL ACETATE SUSP 400 MG/10 ML CUP PO SCH (08:43)
[2017-10-12] MEDS: LACTOBACILLUS ACIDOPHILUS TAB PO SCH (08:43)
[2017-10-12] MEDS: PRAVASTATIN SOD 40 MG TAB PO SCH (08:43)
[2017-10-12] MEDS: FOLIC ACID 1 MG TAB PO SCH (08:43)
[2017-10-12] MEDS: GABAPENTIN 300 MG CAP PO SCH (08:43)
[2017-10-12] MEDS: AMIODARONE 200 MG TAB PO SCH (08:43)
[2017-10-12] MEDS: DOCUSATE SODIUM 50 MG/SENNA 8.6 MG TAB PO SCH (08:43)
[2017-10-12] MEDS: MAGNESIUM OXIDE 400 MG TAB PO SCH ×2 (08:43→20:56)
[2017-10-12] MEDS: SODIUM CHLORIDE 1 GRAM TAB PO SCH ×2 (08:43→20:56)
[2017-10-12] MEDS: SODIUM CHLORIDE 0.9% FLUSH 10 ML FLUSH IV FLUSH SCH ×2 (08:44→21:00)
[2017-10-12] MEDS: ACETAMINOPHEN/HYDROcodone 325 MG/5 MG TAB PO PRN ×2 (08:50→23:25)
[2017-10-12] MEDS ORDERED: MAGNESIUM SULFATE 1 GM PREMIX 100 ML IV ONE (09:30)
[2017-10-12] MEDS: DRONABINOL 2.5 MG CAP PO SCH ×2 (13:03→16:00)
--- NOTE | 2017-10-12 16:25 | HHI.PR ---
Subjective Remarks Patient says he is feeling better. Says he has a very good appetite Objective Vital Signs Date Time Temp Pulse Resp B/P (MAP) Pulse Ox O2 Delivery O2 Flow Rate FiO2 10/12/17 12:00 97.7 87 17 126/60 (82) 98 10/12/17 11:45 78 10/12/17 08:52 86 10/12/17 08:00 98.6 87 16 132/71 (91) 98 10/12/17 04:00 98.0 87 20 128/61 (83) 97 10/12/17 00:00 97.2 72 17 108/61 (77) 98 10/11/17 20:00 97.9 79 17 115/59 (77) 98 I/O 10/11/17 10/11/17 10/11/17 10/12/17 10/12/17 10/12/17 07:00 15:00 23:00 07:00 15:00 23:00 Intake Total 240 ml 1400 ml 100 ml Output Total 1000 ml 700 ml Balance -760 ml 700 ml 100 ml Intake Oral 240 ml 1200 ml IV Total 200 ml 100 ml Output Urine Total 1000 ml 700 ml # Bowel Movements 2 2 Result Diagram: 10/12/17 0717 10/12/17 0439 Objective Remarks GENERAL: Patient sitting up in bed. Appears comfortable.exam again unchanged. SKIN: Warm and dry. HEAD: Normocephalic. EYES: No scleral icterus. No injection or drainage. NECK: Supple, trachea midline. No JVD. CARDIOVASCULAR: Regular rate and rhythm without murmurs, gallops, or rubs. RESPIRATORY: Breath sounds equal bilaterally. No accessory muscle use. GASTROINTESTINAL: Abdomen soft, non-tender, nondistended. MUSCULOSKELETAL: No cyanosis, or edema. BACK: Nontender without obvious deformity. No CVA tenderness. A/P Assessment and Plan 10/12/17 //Hypotonic, euvolemic Hyponatremia. //failure to thrive. //hypomagnesemia. = Sodium relatively stable 126 off of IV fluids. Magnesium 1.7. Replace again. Suspect salt wasting. We'll check cortisol and aldosterone. = Diet appears to be improving on Marinol and Megace. = 10/12. A.m. cortisol 20 within normal limits. Aldosterone pending. Will increase salt tablets to twice daily. If sodium improving by tomorrow, will discharge to rehab. //SVT with occasional paroxysmal atrial fibrillation: Continue amiodarone, beta- rina, calcium channel rnia. Digoxin as needed. Rate is stable. Appreciate cardiology recommendations. //Failure to thrive, severe protein calorie malnutrition, generalized weakness: Patient states that he lost 60 pounds in a matter of months while in residential facilities because he did not eat well there. He is now agreeable to SNF placement at discharge. Continue physical therapy. Encourage oral intake. Continue Glucerna shakes. Continue Megace. Appreciate dietary recommendations. = 10/09. We will stop metformin which can cause decreased appetite. //Hypoglycemia: Resolved. //Anemia: Hemoglobin improved following transfusion. Appreciate GI recommendations. No active bleeding noted on endoscopy, sigmoidoscopy. GI signed off. // Hyponatremia: Sodium improving with IV fluids. Remove sodium restriction from diet. Continue fluid restriction. Monitor labs. = 10/09. Hopefully appetite will improve off of metformin. Continue IV fluids. Replace magnesium. contmonitor. // Diabetes mellitus type 2: Monitor Accu-Cheks and cover with sliding scale insulin. Diabetic diet. //Hypomagnesemia: Supplement magnesium. // DVT prophylaxis: SCDs. Discharge Planning Plan for discharge to SNF when labs are stable. = For discharge to SNF tomorrow. Johnathan Santos MD Oct 12, 2017 16:25
[2017-10-12] MEDS: CALCIUM CARBONATE 500 MG CHEWABLE TAB CHEW PRN (22:29)
[2017-10-13] VITALS (7 sets, daily range): BP systolic 120–146; BP diastolic 56–80; PULSE 72–83; RESP 16–18; TEMP 97.1–98.6; O2SAT 94–100
[2017-10-13 04:43] LABS: AUTOMATED NEUTROPHIL # 8.2 TH/MM3 (1.8-7.7); BASOPHIL % 0.5 % (0.0-2.0); EOSINOPHIL # 0.3 TH/MM3 (0-0.4); EOSINOPHIL % 2.5 % (0.0-4.0); HEMATOCRIT 29.1 % (39.0-51.0); HEMOGLOBIN 10.2 GM/DL (13.0-17.0); LYMPH % 12.7 % (9.0-44.0); LYMPHOCYTE # 1.4 TH/MM3 (1.0-4.8); MEAN CELL VOLUME 91.7 FL (80.0-100.0); MEAN CORPUSCULAR HEMOGLOBIN 32.1 PG (27.0-34.0); MEAN PLATELET VOLUME 6.5 FL (7.0-11.0); MONO % 8.6 % (0.0-8.0); MONOCYTE # 0.9 TH/MM3 (0-0.9); NEUT % 75.7 % (16.0-70.0); PLATELET COUNT 684 TH/MM3 (150-450); RED BLOOD COUNT 3.18 MIL/MM3 (4.50-5.90); WHITE BLOOD COUNT 10.8 TH/MM3 (4.0-11.0)
[2017-10-13 05:11] LABS: BICARBONATE 20.2 MEQ/L (21.0-32.0); CALCIUM 7.9 MG/DL (8.5-10.1); CREATININE 0.43 MG/DL (0.60-1.30); MAGNESIUM 1.6 MG/DL (1.5-2.5); PHOSPHORUS 2.4 MG/DL (2.5-4.9)
[2017-10-13] MEDS: POTASSIUM PHOSPHATE/SODIUM PHOSPHATE 250 MG TAB PO SCH ×4 (06:07→23:27)
[2017-10-13] MEDS: DILTIAZEM HCL 30 MG TAB PO SCH ×4 (06:07→23:27)
[2017-10-13] MEDS: DOCUSATE SODIUM 50 MG/SENNA 8.6 MG TAB PO SCH (08:09)
[2017-10-13] MEDS: INSULIN ASPART SUPPLEMENTAL SCALE SQ SCH ×4 (08:09→21:00)
[2017-10-13] MEDS: CALCIUM CARBONATE 500 MG CHEWABLE TAB CHEW PRN ×2 (08:09→18:37)
[2017-10-13] MEDS: SODIUM CHLORIDE 0.9% FLUSH 10 ML FLUSH IV FLUSH SCH ×2 (08:09→21:00)
[2017-10-13] MEDS: SODIUM CHLORIDE 1 GRAM TAB PO SCH ×2 (08:10→21:04)
[2017-10-13] MEDS: LACTOBACILLUS ACIDOPHILUS TAB PO SCH (08:10)
[2017-10-13] MEDS: AMIODARONE 200 MG TAB PO SCH (08:10)
[2017-10-13] MEDS: MEGESTROL ACETATE SUSP 400 MG/10 ML CUP PO SCH (08:10)
[2017-10-13] MEDS: PRAVASTATIN SOD 40 MG TAB PO SCH (08:10)
[2017-10-13] MEDS: GABAPENTIN 300 MG CAP PO SCH (08:10)
[2017-10-13] MEDS: FOLIC ACID 1 MG TAB PO SCH (08:10)
[2017-10-13] MEDS: MAGNESIUM OXIDE 400 MG TAB PO SCH ×2 (08:10→21:04)
[2017-10-13] MEDS: FERROUS SULFATE 325 MG (65 MG ELEMENTAL IRON) TAB PO SCH (08:10)
[2017-10-13] MEDS ORDERED: MAGNESIUM SULFATE 1 GM PREMIX 100 ML IV ONE (09:30)
[2017-10-13] MEDS ORDERED: SODIUM BICARBONATE 325 MG TAB PO ONE (09:30)
[2017-10-13] MEDS: DRONABINOL 2.5 MG CAP PO SCH ×2 (11:14→16:53)
[2017-10-13] MEDS: GABAPENTIN 100 MG CAP PO SCH ×2 (14:07→21:11)
--- NOTE | 2017-10-13 21:16 | HHI.PR ---
Subjective Remarks Patient seen this morning around 9 AM. Says he is feeling all right. He ate breakfast. Denies any chest pain or shortness breath. Denies nausea or vomiting. Objective Vital Signs Date Time Temp Pulse Resp B/P (MAP) Pulse Ox O2 Delivery O2 Flow Rate FiO2 10/13/17 16:00 97.3 72 18 146/80 (102) 98 10/13/17 12:00 98.6 73 16 126/69 (88) 97 10/13/17 08:00 97.7 78 16 120/56 (77) 97 10/13/17 04:00 98.6 81 17 121/65 (83) 94 10/13/17 00:55 20 10/13/17 00:53 83 10/13/17 00:00 98.4 82 17 120/62 (81) 95 I/O 10/12/17 10/12/17 10/12/17 10/13/17 10/13/17 10/13/17 07:00 15:00 23:00 07:00 15:00 23:00 Intake Total 100 ml 960 ml 480 ml 100 ml 720 ml Output Total 150 ml 1500 ml 775 ml Balance 100 ml 810 ml -1020 ml 100 ml -55 ml Intake Oral 960 ml 480 ml 720 ml IV Total 100 ml 100 ml Output Urine Total 150 ml 1500 ml 775 ml # Voids 2 # Bowel Movements 1 3 2 Result Diagram: 10/13/17 0355 10/13/17 0355 Objective Remarks GENERAL: Patient sitting up in bed. Appears comfortable.exam unchanged SKIN: Warm and dry. HEAD: Normocephalic. EYES: No scleral icterus. No injection or drainage. NECK: Supple, trachea midline. No JVD. CARDIOVASCULAR: Regular rate and rhythm without murmurs, gallops, or rubs. RESPIRATORY: Breath sounds equal bilaterally. No accessory muscle use. GASTROINTESTINAL: Abdomen soft, non-tender, nondistended. MUSCULOSKELETAL: No cyanosis, or edema. BACK: Nontender without obvious deformity. No CVA tenderness. A/P Assessment and Plan 10/13. Patient seen and examined. Sodium 127, slightly improved. Mild non-gap metabolic acidosis with bicarbonate of 20. Single dose of sodium bicarbonate. Likely secondary to diarrhea. Discontinue laxative. Continue to monitor labs. If stable by tomorrow, will discharge to rehabilitation. 10/12/ //Hypotonic, euvolemic Hyponatremia. //failure to thrive. //hypomagnesemia. = Sodium relatively stable 126 off of IV fluids. Magnesium 1.7. Replace again. Suspect salt wasting. We'll check cortisol and aldosterone. = Diet appears to be improving on Marinol and Megace. = 10/12. A.m. cortisol 20 within normal limits. Aldosterone pending. Will increase salt tablets to twice daily. If sodium improving by tomorrow, will discharge to rehab. //SVT with occasional paroxysmal atrial fibrillation: Continue amiodarone, beta- rina, calcium channel rina. Digoxin as needed. Rate is stable. Appreciate cardiology recommendations. //Failure to thrive, severe protein calorie malnutrition, generalized weakness: Patient states that he lost 60 pounds in a matter of months while in [facility] facilities because he did not eat well there. He is now agreeable to SNF placement at discharge. Continue physical therapy. Encourage oral intake. Continue Glucerna shakes. Continue Megace. Appreciate dietary recommendations. = 10/09. We will stop metformin which can cause decreased appetite. //Hypoglycemia: Resolved. //Anemia: Hemoglobin improved following transfusion. Appreciate GI recommendations. No active bleeding noted on endoscopy, sigmoidoscopy. GI signed off. // Hyponatremia: Sodium improving with IV fluids. Remove sodium restriction from diet. Continue fluid restriction. Monitor labs. = 10/09. Hopefully appetite will improve off of metformin. Continue IV fluids. Replace magnesium. contmonitor. // Diabetes mellitus type 2: Monitor Accu-Cheks and cover with sliding scale insulin. Diabetic diet. //Hypomagnesemia: Supplement magnesium. // DVT prophylaxis: SCDs. Discharge Planning Plan for discharge to SNF when labs are stable. discharge to SNF tomorrow. Johnathan Santos MD Oct 13, 2017 21:16
[2017-10-13] MEDS: diphenhydrAMINE HCL 25 MG CAP PO PRN (21:53)
[2017-10-14] VITALS: BP 119/67; PULSE 74; RESP 16; TEMP 97.8; O2SAT 100
[2017-10-14 04:00] VITALS: BP 121/69; PULSE 72; RESP 16; TEMP 97.9; O2SAT 100
[2017-10-14] MEDS: GABAPENTIN 100 MG CAP PO SCH ×2 (05:37→15:01)
[2017-10-14] MEDS: DILTIAZEM HCL 30 MG TAB PO SCH ×3 (05:37→16:56)
[2017-10-14] MEDS: POTASSIUM PHOSPHATE/SODIUM PHOSPHATE 250 MG TAB PO SCH ×3 (05:37→16:56)
[2017-10-14 08:00] VITALS: BP 140/72; PULSE 61; RESP 18; TEMP 98.1; O2SAT 99
[2017-10-14 08:09] LABS: BASOPHIL # 0.1 TH/MM3 (0-0.2); BASOPHIL % 0.9 % (0.0-2.0); EOSINOPHIL # 0.3 TH/MM3 (0-0.4); EOSINOPHIL % 3.2 % (0.0-4.0); HEMATOCRIT 30.4 % (39.0-51.0); HEMOGLOBIN 10.4 GM/DL (13.0-17.0); LYMPH % 13.1 % (9.0-44.0); LYMPHOCYTE # 1.4 TH/MM3 (1.0-4.8); MEAN CELL VOLUME 91.4 FL (80.0-100.0); MEAN CORPUSCULAR HEMOGLOBIN 31.4 PG (27.0-34.0); MEAN CORPUSCULAR HGB CONC 34.4 % (32.0-36.0); MEAN PLATELET VOLUME 6.5 FL (7.0-11.0); MONO % 9.5 % (0.0-8.0); NEUT % 73.3 % (16.0-70.0); PLATELET COUNT 658 TH/MM3 (150-450); RED BLOOD COUNT 3.32 MIL/MM3 (4.50-5.90); WHITE BLOOD COUNT 10.9 TH/MM3 (4.0-11.0)
[2017-10-14] MEDS: PRAVASTATIN SOD 40 MG TAB PO SCH (08:20)
[2017-10-14] MEDS: SODIUM CHLORIDE 1 GRAM TAB PO SCH (08:20)
[2017-10-14] MEDS: MAGNESIUM OXIDE 400 MG TAB PO SCH (08:20)
[2017-10-14] MEDS: FERROUS SULFATE 325 MG (65 MG ELEMENTAL IRON) TAB PO SCH (08:20)
[2017-10-14] MEDS: FOLIC ACID 1 MG TAB PO SCH (08:20)
[2017-10-14] MEDS: AMIODARONE 200 MG TAB PO SCH (08:20)
[2017-10-14 08:21] LABS: ALBUMIN 2.1 GM/DL (3.4-5.0); BICARBONATE 20.9 MEQ/L (21.0-32.0); CALCIUM 8.1 MG/DL (8.5-10.1); CREATININE 0.54 MG/DL (0.60-1.30); MAGNESIUM 1.6 MG/DL (1.5-2.5); PHOSPHORUS 2.6 MG/DL (2.5-4.9)
[2017-10-14] MEDS: LACTOBACILLUS ACIDOPHILUS TAB PO SCH (08:21)
[2017-10-14] MEDS: SODIUM CHLORIDE 0.9% FLUSH 10 ML FLUSH IV FLUSH SCH (08:21)
[2017-10-14] MEDS: INSULIN ASPART SUPPLEMENTAL SCALE SQ SCH ×3 (08:21→16:57)
[2017-10-14] MEDS: MEGESTROL ACETATE SUSP 400 MG/10 ML CUP PO SCH (08:21)
[2017-10-14 09:18] LABS: BANDS 5 % (0-6); LYMPHOCYTES 8 % (9-44); MONOCYTES 6 % (0-8); MYELOCYTES 2 % (0-0); NEUTROPHIL # MANUAL DIFF 9.4 TH/MM3 (1.8-7.7); POLYS (SEG NEUTROPHILS) 79 % (16-70); TOXIC GRANULATION 1+ (NORMAL)
[2017-10-14] MEDS ORDERED: SODI1TAB PO (09:39)
[2017-10-14] MEDS ORDERED: DRON2.5 PO (09:39)
[2017-10-14] MEDS ORDERED: NOVOLOGSS SQ (09:39)
[2017-10-14] MEDS ORDERED: AMIO200T PO (09:39)
[2017-10-14] MEDS ORDERED: DILT31TA PO (09:39)
[2017-10-14] MEDS ORDERED: GABA100C4 PO (09:39)
[2017-10-14] MEDS ORDERED: MAGN400T2 PO (09:39)
[2017-10-14] MEDS ORDERED: LACTOBACILLUS ACIDOPHILUS TAB PO ONE (09:45)
[2017-10-14] MEDS: DRONABINOL 2.5 MG CAP PO SCH ×2 (11:34→16:56)
[2017-10-14 12:00] VITALS: BP 128/71; PULSE 77; RESP 18; TEMP 98; O2SAT 96
[2017-10-14] MEDS ORDERED: LACTPOW68 PO (14:19)
[2017-10-14 16:00] VITALS: BP 127/60; PULSE 82; RESP 18; TEMP 98; O2SAT 97
[2017-10-14] MEDS ORDERED: LACTOBACILLUS ACIDOPHILUS TAB PO SCH (21:00)
--- NOTE | 2017-10-15 07:07 | HHI.PR ---
Subjective Remarks Date of service 10/14/17. Patient seen around 8:30 AM on 10/14. Says he is feeling all right. Denies any chest pain or shortness breath. Good appetite. He denies any diarrhea. Nursing reports some soft bowel movements, however denies diarrhea or any concern for C. difficile. C. difficile nevertheless ordered and negative. Objective Vital Signs Date Time Temp Pulse Resp B/P (MAP) Pulse Ox O2 Delivery O2 Flow Rate FiO2 10/14/17 16:00 98.0 82 18 127/60 (82) 97 10/14/17 12:00 98.0 77 18 128/71 (90) 96 10/14/17 08:00 98.1 61 18 140/72 (94) 99 I/O 10/14/17 10/14/17 10/14/17 10/15/17 10/15/17 10/15/17 07:00 15:00 23:00 07:00 15:00 23:00 Intake Total 240 ml Output Total 600 ml Balance -360 ml Intake Oral 240 ml Output Urine Total 600 ml # Voids 2 # Bowel Movements 4 Result Diagram: 10/14/1730 10/14/17629 Objective Remarks GENERAL: Patient sitting up in bed. Appears comfortable. SKIN: Warm and dry. HEAD: Normocephalic. EYES: No scleral icterus. No injection or drainage. NECK: Supple, trachea midline. No JVD. CARDIOVASCULAR: Regular rate and rhythm without murmurs, gallops, or rubs. RESPIRATORY: Breath sounds equal bilaterally. No accessory muscle use. GASTROINTESTINAL: Abdomen soft, non-tender, nondistended. positive bowel sounds. MUSCULOSKELETAL: No cyanosis, or edema. BACK: Nontender without obvious deformity. No CVA tenderness. A/P Assessment and Plan 10/14. Patient doing well. Sodium is stable on replacement. Magnesium stable on re placement. Some loose bowel movements= will slightly decreased magnesium replacement. Laxatives were discontinued yesterday. Discharged to SNF. 10/13. Patient seen and examined. Sodium 127, slightly improved. Mild non-gap metabolic acidosis with bicarbonate of 20. Single dose of sodium bicarbonate. Likely secondary to diarrhea. Discontinue laxative. Continue to monitor labs. If stable by tomorrow, will discharge to rehabilitation. 10/12/17 //Hypotonic, euvolemic Hyponatremia. //failure to thrive. //hypomagnesemia. = Sodium relatively stable 126 off of IV fluids. Magnesium 1.7. Replace again. Suspect salt wasting. We'll check cortisol and aldosterone. = Diet appears to be improving on Marinol and Megace. = 10/12. A.m. cortisol 20 within normal limits. Aldosterone pending. Will increase salt tablets to twice daily. If sodium improving by tomorrow, will discharge to rehab. //SVT with occasional paroxysmal atrial fibrillation: Continue amiodarone, beta- rina, calcium channel rina. Digoxin as needed. Rate is stable. Appreciate cardiology recommendations. //Failure to thrive, severe protein calorie malnutrition, generalized weakness: Patient states that he lost 60 pounds in a matter of months while in care home facilities because he did not eat well there. He is now agreeable to SNF placement at discharge. Continue physical therapy. Encourage oral intake. Continue Glucerna shakes. Continue Megace. Appreciate dietary recommendations. = 10/09. We will stop metformin which can cause decreased appetite. //Hypoglycemia: Resolved. //Anemia: Hemoglobin improved following transfusion. Appreciate GI recommendations. No active bleeding noted on endoscopy, sigmoidoscopy. GI signed off. // Hyponatremia: Sodium improving with IV fluids. Remove sodium restriction from diet. Continue fluid restriction. Monitor labs. = 10/09. Hopefully appetite will improve off of metformin. Continue IV fluids. Replace magnesium. contmonitor. // Diabetes mellitus type 2: Monitor Accu-Cheks and cover with sliding scale insulin. Diabetic diet. //Hypomagnesemia: Supplement magnesium. // DVT prophylaxis: SCDs. Discharge Planning discharge to SNF Johnathan Santos MD October 15, 2017 07:07
--- NOTE | 2017-10-15 07:08 | HHI.DS ---
Discharge Summary Admission Date Sep 28, 2017 at 10:09 Discharge Date: October 15, 2017 Admitting Diagnosis hyponatremia, dehydration (1) Self-care deficit in patient living alone ICD Code: R46.89 - Other symptoms and signs involving appearance and behavior Diagnosis: Principal Status: Acute (2) DM (diabetes mellitus) ICD Code: E11.9 - Type 2 diabetes mellitus without complications Status: Chronic (3) Dehydration ICD Code: E86.0 - Dehydration Diagnosis: Principal Status: Resolved (4) Hyponatremia ICD Code: E87.1 - Hypo-osmolality and hyponatremia Diagnosis: Principal Status: Resolved (5) Failure to thrive in adult ICD Code: R62.7 - Adult failure to thrive Diagnosis: Principal Status: Acute (6) Generalized weakness ICD Code: R53.1 - Weakness Diagnosis: Principal Status: Acute (7) Hyperlipidemia ICD Code: E78.5 - Hyperlipidemia, unspecified Diagnosis: Principal Status: Chronic (8) Severe protein-calorie malnutrition ICD Code: E43 - Unspecified severe protein-calorie malnutrition Diagnosis: Principal Status: Acute Procedures 10/03/17 flexible sigmoidoscopy Brief History - From Admission 86-year-old male with a history of hypertension and diabetes was brought to the ED after his neighbor had concerns for unable to care for himself. Patient was sent to a rehab facility a few weeks ago and just discharged a few days ago due to insurance issues. Patient was found at home by EMS covered in feces. Upon examination patient states he lives alone does not feel that he can care for himself, he states he is weak. He denies any chest pain, shortness of breath, fever or chills. He does state that he has not been eating or drinking because he is not in his house. CBC/BMP: 10/14/17 0630 10/14/17 0630 Significant Findings Laboratory Tests Test 10/12/17 07:17 10/13/17 03:55 10/14/17 06:30 10/14/17 12:00 White Blood Count 11.6 TH/MM3 (4.0-11.0) Red Blood Count 3.39 MIL/MM3 (4.50-5.90) 3.18 MIL/MM3 (4.50-5.90) 3.32 MIL/MM3 (4.50-5.90) Hemoglobin 10.6 GM/DL (13.0-17.0) 10.2 GM/DL (13.0-17.0) 10.4 GM/DL (13.0-17.0) Hematocrit 31.1 % (39.0-51.0) 29.1 % (39.0-51.0) 30.4 % (39.0-51.0) Platelet Count 664 TH/MM3 (150-450) 684 TH/MM3 (150-450) 658 TH/MM3 (150-450) Mean Platelet Volume 6.4 FL (7.0-11.0) 6.5 FL (7.0-11.0) 6.5 FL (7.0-11.0) Neutrophils (%) (Auto) 79.4 % (16.0-70.0) 75.7 % (16.0-70.0) 73.3 % (16.0-70.0) Monocytes (%) (Auto) 8.1 % (0.0-8.0) 8.6 % (0.0-8.0) 9.5 % (0.0-8.0) Neutrophils # (Auto) 9.2 TH/MM3 (1.8-7.7) 8.2 TH/MM3 (1.8-7.7) 8.0 TH/MM3 (1.8-7.7) Blood Urea Nitrogen 20 MG/DL (7-18) Creatinine 0.43 MG/DL (0.60-1.30) 0.54 MG/DL (0.60-1.30) Random Glucose 203 MG/DL (74-106) 184 MG/DL (74-106) Albumin 2.0 GM/DL (3.4-5.0) 2.1 GM/DL (3.4-5.0) Calcium Level 7.9 MG/DL (8.5-10.1) 8.1 MG/DL (8.5-10.1) Phosphorus Level 2.4 MG/DL (2.5-4.9) Sodium Level 127 MEQ/L (136-145) 127 MEQ/L (136-145) Chloride Level 96 MEQ/L (98-107) 95 MEQ/L (98-107) Carbon Dioxide Level 20.2 MEQ/L (21.0-32.0) 20.9 MEQ/L (21.0-32.0) Monocytes # (Auto) 1.0 TH/MM3 (0-0.9) Neutrophils % (Manual) 79 % (16-70) Lymphocytes % 8 % (9-44) Neutrophils # (Manual) 9.4 TH/MM3 (1.8-7.7) Myelocytes 2 % (0-0) Toxic Granulation 1+ (NORMAL) Platelet Estimate HIGH (NORMAL) Imaging Last Impressions Abdomen/Pelvis CT 09/30/17 0000 Signed Impressions: Service Date/Time: Sunday, October 01, 2017 00:07 - CONCLUSION: 1. No obstruction or acute inflammatory changes are demonstrated. 2. Nonspecific distention of the stomach. 3. Considerable stool throughout the colon. Nonspecific slight ascites. There is also body wall edema/anasarca and trace bibasilar pleural effusions. 4. A few scattered benign cysts of both kidneys. 5. Probable left adrenal adenomas. 6. Nonobstructing stones of the left kidney. 7. Atherosclerosis of the abdominal aorta. 8. Sigmoid colon diverticulosis without evidence of diverticulitis. 9. Nonacute appearing subchondral fragmentation/collapse of the right femoral head. Hipolito Ryder MD Chest X-Ray 09/23/171920 Signed Impressions: Service Date/Time: Saturday, September 23, 2017 19:35 - CONCLUSION: 1. No active disease. Nicholas Jacobsen MD PE at Discharge General: Elderly male in no acute distress. Sitting up in a chair. Heart: Regular rate and rhythm. No murmur. Lungs: Clear to auscultation bilaterally. No wheezes, rales, or rhonchi. Breathing is nonlabored. Abdomen: Soft, nontender, nondistended. Extremities: No lower extremity edema. Psych: Alert and oriented. Neuro: Normal speech. No focal deficits noted. Hospital Course 10/14. Patient doing well. Sodium is stable on replacement. Magnesium stable on re placement. Some loose bowel movements= will slightly decreased magnesium replacement. Laxatives were discontinued yesterday. Discharged to SNF. 10/13. Patient seen and examined. Sodium 127, slightly improved. Mild non-gap metabolic acidosis with bicarbonate of 20. Single dose of sodium bicarbonate. Likely secondary to diarrhea. Discontinue laxative. Continue to monitor labs. If stable by tomorrow, will discharge to rehabilitation. 10/12/17 //Hypotonic, euvolemic Hyponatremia. //failure to thrive. //hypomagnesemia. = Sodium relatively stable 126 off of IV fluids. Magnesium 1.7. Replace again. Suspect salt wasting. We'll check cortisol and aldosterone. = Diet appears to be improving on Marinol and Megace. = 10/12. A.m. cortisol 20 within normal limits. Aldosterone pending. Will increase salt tablets to twice daily. If sodium improving by tomorrow, will discharge to rehab. //SVT with occasional paroxysmal atrial fibrillation: Continue amiodarone, beta- rina, calcium channel rina. Digoxin as needed. Rate is stable. Appreciate cardiology recommendations. //Failure to thrive, severe protein calorie malnutrition, generalized weakness: Patient states that he lost 60 pounds in a matter of months while in half-way facilities because he did not eat well there. He is now agreeable to SNF placement at discharge. Continue physical therapy. Encourage oral intake. Continue Glucerna shakes. Continue Megace. Appreciate dietary recommendations. = 10/09. We will stop metformin which can cause decreased appetite. //Hypoglycemia: Resolved. //Anemia: Hemoglobin improved following transfusion. Appreciate GI recommendations. No active bleeding noted on endoscopy, sigmoidoscopy. GI signed off. // Hyponatremia: Sodium improving with IV fluids. Remove sodium restriction from diet. Continue fluid restriction. Monitor labs. = 10/09. Hopefully appetite will improve off of metformin. Continue IV fluids. Replace magnesium. contmonitor. // Diabetes mellitus type 2: Monitor Accu-Cheks and cover with sliding scale insulin. Diabetic diet. //Hypomagnesemia: Supplement magnesium. // DVT prophylaxis: SCDs. Pt Condition on Discharge: Stable Discharge Disposition: Disch w/ Home Health Serv Discharge Time: > 30 minutes Discharge Instructions DIET: Follow Instructions for: As Tolerated, No Restrictions, Diabetic Diet Additional Diet Instructions: Take Glucerna shakes 3 times a day with meals. Activities you can perform: See Additionl Instruction Activities to Avoid: Prolonged Standing, Strenuous Activity Other Activity Instructions: as per Pt OOB with assistance Follow up Referrals: Gastroenterology - 1 Week with Tierney Howard MD PCP Follow-up - 1 Week New Medications: Lactobacillus Acidophilus (Lactobacillus Acidophilus) 1 Pkt 1 PKT PO TID for Nutritional Supplement, #12 PKT 0 Refills Amiodarone (Amiodarone) 200 Mg Tab 200 MG PO DAILY for heart for 30 Days, #30 TAB Diltiazem (Cardizem) 30 Mg Tab 30 MG PO Q6HR for heart for 30 Days, TAB Dronabinol (Marinol) 2.5 Mg Cap 2.5 MG PO BID@11,16 for appetite for 30 Days, CAP Gabapentin (Gabapentin) 100 Mg Cap 100 MG PO Q8HR for Pain Management for 30 Days, CAP Insulin Aspart Inj (Novolog Inj) 100 Unit/Ml Inj 1 INJECTION SQ ACHS SLIDING SCALE for Blood Sugar Management for 30 Days, INJECTION Magnesium Oxide (Magnesium Oxide) 400 Mg Tab 400 MG PO TID for low mag for 30 Days, TAB Potassium Phosphate-Sodium Phosphate (K-Phos Neutral) 155-852-130 Mg Tab 250 MG PO Q6HR for low phosphorus, #10 TAB Sodium Chloride (Sodium Chloride) 1 Gram Tab 1 GM PO BID for low sodium for 30 Days, TAB [Megestrol Liq] () 400 MG/10 ML SUSP 400 MG PO DAILY for appetite stimulant, #1 BOTTLE Continued Medications: Ferrous Sulfate (Ferrous Sulfate) 325 Mg (65 Mg Iron) Tablet 325 MG PO DAILY for Nutritional Supplement, #30 TAB 0 Refills Folic Acid (Folic Acid) 1 Mg Tablet 1 MG PO DAILY for anemia, #30 MG Glipizide (Glipizide) 10 Mg Tab 10 MG PO BIDAC for Blood Sugar Management, #60 TAB 0 Refills Take 30 minutes before a meal Hydrocodone-Acetaminophen ([place]) 5 Mg-325 Mg Tab 1 TAB PO Q6H PRN for PAIN, #15 TAB 0 Refills Lactobacillus Acidophilus (Lactinex) 1 Chew 1 TAB CHEW DAILY for Nutritional Supplement, #93 TAB 0 Refills Pravastatin (Pravastatin) 40 Mg Tab 40 MG PO DAILY for Cholesterol Management, #30 TAB 0 Refills Sitagliptin (Januvia) 100 Mg Tab 100 MG PO DAILY for Blood Sugar Management, #30 TAB 0 Refills Johnathan Santos MD October 15, 2017 07:08
== END 2017-10-14 18:13 | DRG 640 ==
LOC: NEPE 18:23 → UNDOADMIN 22:22 → NEDA 22:22 → INTOOBSV 23:46 → NEDA 09-24 01:12 → NEDH 09-24 02:52 → NEPHCDU 09-24 13:49 → OBSVTOIN 09-28 10:09 → N03B 09-28 13:44 → HCIS 09-28 21:57 → N07B 10-02 12:38
PROVIDERS: ADMIT Internal Medicine; ATTEND Internal Medicine
PROC: 30233N1 Transfusion of Nonautologous Red Blood Cells into Peripheral Vein, Percutaneous Approach (ICD-10-PCS; 2017-09-28)
PROC: 0DB68ZX Excision of Stomach, Via Natural or Artificial Opening Endoscopic, Diagnostic (ICD-10-PCS; 2017-09-30)
PROC: 0DB38ZX Excision of Lower Esophagus, Via Natural or Artificial Opening Endoscopic, Diagnostic (ICD-10-PCS; 2017-09-30)
PROC: 0DB98ZX Excision of Duodenum, Via Natural or Artificial Opening Endoscopic, Diagnostic (ICD-10-PCS; principal; 2017-09-30 14:09)
PROC: 0DBL8ZX Excision of Transverse Colon, Via Natural or Artificial Opening Endoscopic, Diagnostic (ICD-10-PCS; 2017-10-03)
DX: E87.1 Hypo-osmolality and hyponatremia (principal); E43 Unspecified severe protein-calorie malnutrition; E86.0 Dehydration; E87.2 Acidosis; E11.42 Type 2 diabetes mellitus with diabetic polyneuropathy; E11.649 Type 2 diabetes mellitus with hypoglycemia without coma; I48.92 Unspecified atrial flutter; I47.1 Supraventricular tachycardia; K26.9 Duodenal ulcer, unspecified as acute or chronic, without hemorrhage or perforation; K25.9 Gastric ulcer, unspecified as acute or chronic, without hemorrhage or perforation; I48.0 Paroxysmal atrial fibrillation; Z68.1 Body mass index [BMI] 19.9 or less, adult; K52.9 Noninfective gastroenteritis and colitis, unspecified; I10 Essential (primary) hypertension; K21.0 Gastro-esophageal reflux disease with esophagitis; R62.7 Adult failure to thrive; K57.30 Diverticulosis of large intestine without perforation or abscess without bleeding; K44.9 Diaphragmatic hernia without obstruction or gangrene; K64.8 Other hemorrhoids; E78.5 Hyperlipidemia, unspecified; E87.6 Hypokalemia; E83.42 Hypomagnesemia; G47.00 Insomnia, unspecified; I70.0 Atherosclerosis of aorta; K29.70 Gastritis, unspecified, without bleeding; K29.80 Duodenitis without bleeding; K64.4 Residual hemorrhoidal skin tags; D50.9 Iron deficiency anemia, unspecified; D47.3 Essential (hemorrhagic) thrombocythemia; N20.0 Calculus of kidney; M25.551 Pain in right hip; Z79.84 Long term (current) use of oral hypoglycemic drugs; Z60.2 Problems related to living alone; Z87.11 Personal history of peptic ulcer disease; Z79.899 Other long term (current) drug therapy
CPT/HCPCS: 36430; 71045; 74177; 76937; 80048; 80053; 80069; 81001; 82088; 82272; 82533; 82550; 82728; 82948; 83036; 83540; 83550; 83605; 83735; 83930; 83935; 84100; 84155; 84300; 84443; 84484; 85007; 85014; 85018; 85025; 85027; 85610; 85730; 86850; 86900; 86901; 86920; 87493; 88305; 88312; 88341; 93005; 93306; 96360; 96361; 96365; 96366; 96367; 96372; G0378; G8987-GP; G8988-GP; J0282; J1160; J1815; J2370; J3475; J7030; J7040; J7050; J7120; P9016; Q0167; Q9963; Q9967

== ENCOUNTER 2018-04-08 11:29 | Inpatient (IN) ==
[2018-04-08] MEDS ORDERED: Sodium Chloride 0.9% 2 ML Flush PRN IV.FLUSH (12:27)
[2018-04-08] MEDS ORDERED: Sod Chloride 0.9% Inj 1,000 ML IV.SIG SCH (12:30)
--- NOTE | 2018-04-08 12:34 | P.PNVS ---
- Pre-operative Note Planned Procedure: R LE angiogram and potential endovascular intervention Interval History: Pt has no new complaints. ready for procedure Labs: pending Imaging: will make in OR Post-operative Destination: [facility]U Operative site marked: Yes Consent: Informed consent has been obtained from Rufus Escobedo. I have explained the procedure in detail and discussed the risks, benefits, and potential complications. All questions have been answered.
[2018-04-08 12:47] LABS: Anion Gap 8 meq/L (5-15); Blood Urea Nitrogen 16 mg/dL (7-18); Calcium 8.3 mg/dL (8.5-10.1); Carbon Dioxide 26.4 meq/L (21.0-32.0); Chloride 95 meq/L (98-107); Glomerular Filtration Rate Greater Than 89 mL/min (>89); Glucose,Random 125 mg/dL (74-106); Potassium 4.4 meq/L (3.5-5.1); Sodium 129 meq/L (136-145)
[2018-04-08] MEDS ORDERED: Heparin/NS PF Inj 1,000 ML ONE (12:52)
[2018-04-08] MEDS ORDERED: Heparin 10,000 UNITS/10 ML Vial (for IV use) ONE (13:00)
[2018-04-08] MEDS ORDERED: fentaNYL Citrate Inj 100 MCG/2 ML Ampul ONE ×2 (13:00→13:52)
[2018-04-08] MEDS ORDERED: Adenosine Inj 6 MG/2 ML Syringe IV.PUSH ONE ×2 (13:41→13:42)
[2018-04-08] MEDS ORDERED: Heparin Drip 25,000 UNIT/250 ML BAG IV.CONT ONE (13:44)
[2018-04-08] MEDS ORDERED: Bisacodyl 10 MG Supp RECTAL PRN (13:59)
--- NOTE | 2018-04-08 13:59 | P.OP ---
- Preoperative Diagnosis (1) PAD (peripheral artery disease) - Postoperative Diagnosis (1) PAD (peripheral artery disease) Date of procedure: 04/08/18 Procedure: 1. Aortogram w/ R LE angiogram 2. R SFA/popliteal atherectomy/PHYSICIAN SCIENTIST Implants: none Anesthesia: MAC Surgeon: Urban Oliva MD Estimated blood loss (mL): 5 Pathology: none sent Operation and Findings: severe calcific SFA and popliteal disease 2 vessel runoff decreased perfusion after intervention
[2018-04-08] MEDS ORDERED: SODIUM BICARBONATE IV.SIG SCH ×2 (14:00)
[2018-04-08] MEDS ORDERED: WATER IV.SIG SCH ×2 (14:00)
[2018-04-08] MEDS ORDERED: DEXTROSE 5% IV.SIG SCH ×2 (14:00)
--- NOTE | 2018-04-08 14:12 | CATHPROC ---
[employer] HIS Report Study Information Study Number Admission Scheduled Start Study Start [id number] Apr 08 2018 11:29AM 04/08/2018 Apr 08 2018 12:16PM [place] Service Cath Endovascular Study Admit Source Facility Department Other [facility] - Electric Blasting Cap Assembler Physician and Clinical Staff Initial MD Oliva, Urban Tool Salvage Worker Tran Stubbs,RN Recorder Vivian Ramirez,RT(R) (BS) Scrub Kenny Munoz,RT(R) Procedures Performed Procedure Location (Site) Vessel Name Abdominal Angiogram Abd Aorta (A3) Aorta PTCA SFA (right) Femoral Art Wire insertion Fem Art (right) Femoral Art Equipment Time Expense Analyst Description Size Mfg Part Number Used/Scraped [id number] 13:07 ANGIO-DYNAMICS OMNI FLUSH 65CM CATHETER FR 4 Used *[id number] DBP- CARDIOVASCULAR CATHETER, STEALTH SOLID 13:29 [id number] Used SYSTEMS INC. 2.0MM *[id number] CARDIOVASCULAR LUBRICANT, VIPERSLIDE VPR-SLD2 13:22 Used SYSTEMS INC. ATHERCTOMY *[id number] CARDIOVASCULAR VPR-GW-14 13:22 WIRE, FIRM (VIPER) 335 Used SYSTEMS INC. *[id number] INTRODUCER SET, 12:17 COOK INC. FR 5 [id number] *[id number] Used MICROPUNCTURE STIFF BALLOON, ADVANCE 18 LP .018 5 [id number] 13:29 COOK/GERRI 5 X 20 Used X 20 *[id number] CXI-4.0-35-135- 13:15 COOK/GERRI CATHETER, FR4 CXI SUPPORT FR 4 Used P-NS-0 *[id number] SHEATH, FR6 DAXA 1 FLEXOR [id number] 13:16 COOK/GERRI FR 6 Used 55CM *[id number] WIRE, GUIDE APPROACH LEARNING CENTER COORDINATOR [id number] 13:15 COOK/GERRI 300CM Used MICROWIRE *[id number] 13:21 DAIG/ST. VISHAL MEDICAL ANGIOSEAL, FR6 VIP FR 6 Used *[id number] 12:17 Huupy BLANKET,WARM AIR CCL * Used *[id number] 12:17 Huupy PACK, CCL CUSTOM * Used *[id number] 13:35 SpotRight 30 AMAN INDEFLATOR Used *[id number] 8770-33 13:15 SpotRight WIRE, LARA 260CM .035 260CM Used *[id number] TUBING, 72" PRESSURE [id number] 12:59 NAMIC Used INJECTION (KEY WORKER) 0476 TUBING, 72" PRESSURE [id number] 12:17 NAMIC Used INJECTION (KEY WORKER) 0476 12:17 NYCOMED OMNIPAQUE, 300 MG, 150ML 150ML [id number] Used 12:17 NYCOMED OMNIPAQUE, 300 MG, 50ML 50ML [id number] Used 12:58 NYCOMED OMNIPAQUE, 300 MG, 50ML 50ML [id number] Used 12:58 NYCOMED OMNIPAQUE, 300 MG, 50ML 50ML [id number] Used [id number] 13:07 TERUMO MEDICAL SHEATH, FR4 TERUMO (10CM) FR 4 Used *[id number] WIRE, ANGLED GLIDE .035 [id number] 12:17 TERUMO MEDICAL/GERRI 260CM Used 260CM *[id number] Equipment Model, Serial, Lot Number and Expiration Data Description Model Number Serial Number Lot Number Expiration Date ANGIOSEAL, FR6 VIP [id number] 12-14-2018 BALLOON, ADVANCE 18 LP .018 5 X [id number] 08-20-2020 20 CATHETER, FR4 CXI SUPPORT [id number] 07-31-2020 SHEATH, FR6 DAXA 1 FLEXOR [id number] 08-05-2020 55CM WIRE, FIRM (VIPER) 335 [id number] 06-16-2019 WIRE, GUIDE APPROACH LEARNING CENTER COORDINATOR [id number] 12-12-2021 MICROWIRE History: Allergies Allergy Reaction No Known Allergies Labs Hgb (g/dl) 11.60-17.00 Not Drawn Creatinine (mg/dl) 0.50-1.30 0.7 CPK-MB (ng/ML) 0.50-3.60 Not Drawn Medication Medication Total Dose (Bolus/Oral) Medication Total Dosage/Unit 1% XYLOCAINE 20 mL ADENOSINE 180 mcg FENTANYL 137.5 mcg HEPARIN 8000 units VERSED 1 mg Medications (Bolus/Oral) Medication Time Given Dosage/Unit Administered By Reason 1% XYLOCAINE 04/08/2018 1:05:10 PM 20 mL Urban Oliva 20 mL 1% XYLOCAINE given in lab by Urban Oliva in Left Groin via Subcutaneous. FENTANYL 04/08/2018 1:05:22 PM 12.5 mcg Tran Stubbs 12.5 mcg FENTANYL given in lab by Tran Stubbs RN via Peripheral IV. FENTANYL 04/08/2018 1:09:24 PM 25 mcg Tran Stubbs 25 mcg FENTANYL given in lab by Tran Stubbs RN via Peripheral IV. HEPARIN 04/08/2018 1:15:13 PM 5000 units Tran Stubbs 5000 units HEPARIN given in lab by Tran Stubbs RN via Peripheral IV. VERSED 04/08/2018 1:16:52 PM 0.5 mg Sandra Stubbsfer 0.5 mg VERSED given in lab by Tran Stubbs RN via Peripheral IV. FENTANYL 04/08/2018 1:17:56 PM 25 mcg Tran Stubbs 25 mcg FENTANYL given in lab by Tran Stubbs RN via Peripheral IV. VERSED 04/08/2018 1:26:09 PM 0.5 mg Evelyne, Tran 0.5 mg VERSED given in lab by Tran Stubbs RN via Peripheral IV. FENTANYL 04/08/2018 1:27:13 PM 25 mcg Tran Stubbs 25 mcg FENTANYL given in lab by Tran Stubbs RN via Peripheral IV. HEPARIN 04/08/2018 1:40:20 PM 3000 units Tran Stubbs 3000 units HEPARIN given in lab by Tran Stubbs RN via Peripheral IV. ADENOSINE 04/08/2018 1:45:49 PM 180 mcg Urban Oliva 180 mcg ADENOSINE given in lab by Urban Oliva via Intra-arterial. FENTANYL 04/08/2018 1:53:19 PM 50 mcg Tran Stubbs 50 mcg FENTANYL given in lab by Tran Stubbs RN via Peripheral IV. Medication (Drip) Medication Time Given Dosage/Unit Concentration/Unit Diluent (ml) Solution HEPARIN DRIP 04/08/2018 1:50:12 PM 500 units/hr 95499 units 250 D5W 500 units/hr HEPARIN DRIP given in lab by Tran Stubbs RN in Left Groin via Peripheral IV. Pump/D rip Flow = 5 ml/hr [place] [address] units in 250 ml. 04/08/2018 12:50:12 IV Solutions 0 mL (IV) 500 NaCl .9 PM IV Solutions given in lab by Tran Stubbs, RN in Right Forearm via Peripheral IV. Pump/Drip Flow = 30 ml/hr using NaCl .9. Initial Case Assessment Cardiovascular HR NIBP 69 120/60 Edema Present Skin color Skin None Normal Warm Dry Circulatory - Right Pulses Femoral 2 Scale (0,1,2,3,4,d) Circulatory - Left Pulses Femoral 2 Scale (0,1,2,3,4,d) Circulatory - Lower Extremities Color Lower Right Color Lower Left Normal Normal Neurological State Oriented to time-place- Alert Moves all extremities person Respiration - General Respiration Rate SpO2 (%) (B/min) 20 100 Chronological Log Time Study Chronological Log 12:49:55 Patient arrived via Bed. 12:49:56 Patient Name, D.O.B, / Armband Verified By R.N. 12:49:57 Consent signed by the physician and the patient and verified by the Electric Blasting Cap Assembler staff. 12:50:00 Pre-op and post- op instructions given; patient acknowledges understanding of instructions. 12:50:03 Presedation assessment performed by Electric Blasting Cap Assembler RN. 12:50:06 Patient has been NPO for More than 6Hrs. 12:50:07 Skin Breakdown- several healing and non healing wounds. See EMR. 12:50:09 Patient Warmer Placed on the Table. 12:50:09 Hipolito Prominences Protected 12:50:11 A # 18 IV was noted in the Forearm (right). Grade = 0 IV Solutions given in lab by Tran Stubbs, RN in Right Forearm via Peripheral IV. Pump/Drip Flow = 30 ml/hr using 12:50:12 NaCl .9. 12:50:13 History and physical on the chart or being dictated. Assessment: Initial Case, HR=69 BPM, WVSK=703/60 mmhg, Edema=None, Color=Normal, Skin = Warm, D ry Right Pulses: Femoral=2 Left Pulses: Femoral=2 12:50:14 Lower Right Extremities: Color=Normal Lower Left Extremities: Color=Normal Neurological: State=Alert, Ox3, HERNANDEZ Respiration: Resp=20 B/min, NnE8=697 % Vitals capture started with the following parameters, Patient=Adult, Interval=5 min, Initial Pr mesits=139 mmHg, 12:53:51 Deflation Rate=5 mmHg, Cuff placed on Left Arm 12:54:34 DDTL=976/60 mmhg, SpO2=98.0 %, Pain=0, Nate=9, Limon=2 Time Out. Correct patient, correct procedure, correct physician, labs, allergies, and equipment verified with foundry laborer coreroom 12:55:50 team present. Fire risk assesment completed (see hard stop sheet for coding). Time Out Conc urred by MD and individual staff in procedure. 12:58:52 Bilateral groins prepped with 2% chlorhexidine, and draped after a 3 minute waiting time. 12:59:27 HR=78 bpm, AVIC=792/67 mmhg, SpO2=98.0 %, Resp=8 B/min, Pain=0, Nate=9, Limon=2 13:04:28 HR=70 bpm, QGVX=866/62 mmhg, SpO2=98.0 %, Resp=22 B/min, Pain=0, Nate=9, Limon=2 13:05:08 Case Start 13:05:10 20 mL 1% XYLOCAINE given in lab by Urban Oliva in Left Groin via Subcutaneous. 13:05:22 12.5 mcg FENTANYL given in lab by Tran Stubbs, VANESA via Peripheral IV. 13:06:05 Access site was Left Femoral Artery. A INTRODUCER SET, MICROPUNCTURE STIFF FR 5 was advanced into the Fem Art (left) using the Anisah reece 13:06:14 technique. A SHEATH, FR4 TERUMO (10CM) FR 4 was exchanged in the Fem Art (left). This was necessary in ord er to 13:06:28 accomodate a larger catheter. A OMNI FLUSH 65CM CATHETER FR 4 was advanced over a wire. OMNIPAQUE, 300 MG, 150ML 150ML was us ed for 13:07:08 injections. Through a OMNI FLUSH 65CM CATHETER FR 4, The Abdominal Aorta was injected with 10 cc's of contr ast. Injections 13:09:08 continued down the right leg. 13:09:24 25 mcg FENTANYL given in lab by Tran Stubbs, RN via Peripheral IV. 13:09:29 HR=78 bpm, JUXO=996/61 mmhg, SpO2=98.0 %, Resp=10 B/min, Pain=0, Nate=9, Limon=2 13:14:30 HR=70 bpm, RDXT=089/61 mmhg, SpO2=98.0 %, Resp=18 B/min, Pain=0, Nate=9, Limon=2 13:15:13 5000 units HEPARIN given in lab by Tran Stubbs, VANESA via Peripheral IV. A SHEATH, FR6 DAXA 1 FLEXOR 55CM FR 6 was exchanged in the Fem Art (left). This was necessary in order to 13:16:21 accomodate a larger catheter. 13:16:52 0.5 mg VERSED given in lab by Tran Stubbs, VANESA via Peripheral IV. A CATHETER, FR4 CXI SUPPORT FR 4 was advanced over a wire. OMNIPAQUE, 300 MG, 150ML 150ML was u sed for 13:17:55 injections. 13:17:56 25 mcg FENTANYL given in lab by Tran Stubbs, VANESA via Peripheral IV. 13:19:29 HR=69 bpm, JBOV=008/60 mmhg, SpO2=97.0 %, Resp=21 B/min, Pain=0, Nate=9, Limon=2 13:21:26 A WIRE, FIRM (VIPER) 335 was inserted via Fem Art (right). 13:22:56 Catheter was removed 13:24:30 HR=49 bpm, HAXO=889/57 mmhg, SpO2=92.0 %, Resp=17 B/min, Pain=0, Nate=9, Limon=2 13:25:25 An CATHETER, STEALTH SOLID 2.0MM catheter was inserted into the SFA (right). 13:26:09 0.5 mg VERSED given in lab by Tran Stubbs, VANESA via Peripheral IV. 13:27:13 25 mcg FENTANYL given in lab by Tran Stubbs, VANESA via Peripheral IV. 13:29:02 CSI in progress. 13:29:12 CSI in progress. 13:29:31 HR=68 bpm, IFRH=524/61 mmhg, SpO2=98.0 %, Resp=17 B/min, Pain=0, Nate=9, Limon=2 13:29:50 CSI in progress. 13:31:26 CSI in progress. 13:32:48 Catheter was removed w/o difficulty 13:33:32 A BALLOON, ADVANCE 18 LP .018 5 X 20 5 X 20 was inserted over WIRE, FIRM (VIPER) 335 via th e Fem Art (left). 13:34:30 HR=67 bpm, GWGV=229/63 mmhg, SpO2=96.0 %, Resp=26 B/min, Pain=0, Nate=9, Limon=2 A BALLOON, ADVANCE 18 LP .018 5 X 20 5 X 20 over a WIRE, FIRM (VIPER) 335 in the SFA (right) wa s inflated using a 13:34:38 30 AMAN INDEFLATOR at 10 aman for 120 sec. 13:37:55 Balloon Removed. 13:39:31 HR=44 bpm, GQXF=588/67 mmhg, SpO2=96.0 %, Resp=14 B/min, Pain=0, Nate=9, Limon=2 A CATHETER, FR4 CXI SUPPORT FR 4 was advanced over a wire. OMNIPAQUE, 300 MG, 50ML 50ML was use d for 13:40:05 injections. 13:40:20 3000 units HEPARIN given in lab by Tran Stubbs RN via Peripheral IV. 13:44:34 HR=63 bpm, KMAS=037/68 mmhg, SpO2=99.0 %, Resp=14 B/min, Pain=0, Nate=9, Limon=2 13:45:49 180 mcg ADENOSINE given in lab by Urban Oliva via Intra-arterial. 13:48:32 Catheter was removed 13:49:31 HR=70 bpm, DKYP=926/87 mmhg, SpO2=83.0 %, Resp=30 B/min, Pain=0, Nate=9, Limon=2 500 units/hr HEPARIN DRIP given in lab by Tran Stubbs, VANESA in Left Groin via Peripheral IV. Pump/Drip Flow = 5 13:50:12 ml/hr [place] [address] units in 250 ml. 13:51:43 Case End (Physician broke scrub) 13:53:19 50 mcg FENTANYL given in lab by Tran Stubbs, VANESA via Peripheral IV. 13:54:36 HR=20 bpm, VHAP=948/71 mmhg, SpO2=99.0 %, Resp=15 B/min, Pain=0, Nate=9, Limon=2 13:57:23 In the Fem Art (left) the SHEATH, FR6 DAXA 1 FLEXOR 55CM FR [address] by Urban Tillman. 13:57:56 Catheter(s) removed without difficulty 13:58:06 Bedside Report will be given. 13:59:37 HR=8 bpm, MOUI=863/58 mmhg, SpO2=98.0 %, Resp=27 B/min, Pain=0, Nate=9, Limon=2 14:04:34 HR=17 bpm, LSEO=876/71 mmhg, SpO2=99.0 %, Resp=6 B/min, Pain=0, Nate=9, Limon=2 14:09:37 HR=0 bpm, MHTI=941/61 mmhg, LgP8=027.0 %, Resp=14 B/min, Pain=0, Nate=9, Limon=2 14:12:07 Patient moved to stretcher 14:12:37 Vitals capture stopped. 14:14:19 BQAQ=208/61 mmhg, Pain=0, Nate=9, Limon=2 End Study - Contrast Media Used In Study Contrast Total Opened (mL) Total Used (mL) Total Wasted (mL) Omnipaque 35 35 0 End Study - Maximum Contrast Load Max Contrast Load (mL) 409.4 End Study - Radiation Exposure Fluoro Time (minutes) 12.6 End Study - Patient Disposition Complications Not selected
[2018-04-08] MEDS ORDERED: Morphine Inj 4 MG/ML Vial ONE (15:01)
[2018-04-08] MEDS ORDERED: Morphine Sulfate Inj 2 MG/ML Vial IV.PUSH PRN (15:04)
[2018-04-08] MEDS ORDERED: Heparin Drip 25,000 UNIT/250 ML BAG IV.CONT SCH (15:45)
[2018-04-08] MEDS ORDERED: Iohexol 350 MG/ML 100 ML Vial (for Cath Lab) IVCONTRAST ONE (16:26)
--- NOTE | 2018-04-08 17:02 | MP ---
cc: Urban Oliva MD DATE OF OPERATION: 04/08/2018 PREOPERATIVE DIAGNOSIS: Right lower extremity ischemic tissue loss. POSTOPERATIVE DIAGNOSIS: Right lower extremity ischemic tissue loss. PROCEDURE PERFORMED: 1. Aortogram with lower extremity angiogram. 2. Right SFA and popliteal atherectomy. ATTENDING SURGEON: Urban Oliva MD ANESTHESIA: Local sedation. INDICATIONS FOR PROCEDURE: Mr. Escobedo is an 87-year-old gentleman with tissue loss of the right lower extremity. He was taken to the operating room to undergo evaluation and treatment. There was no prior catheter-based imaging available for my review. DESCRIPTION OF PROCEDURE: Informed consent was obtained. The patient was taken to the operating room and placed supine on the operating table. Appropriate timeout was taken to ensure the patient's identity, the operative site and procedure. Administration of antibiotics was not necessary as this is a clean procedure without planned implantation of any foreign object. Everyone in the room agreed with the timeout and we proceeded. His bilateral groins were prepped and draped. Left groin was accessed with a 21-gauge micropuncture needle. This was exchanged using Seldinger technique for micropuncture sheath, through which a 0.035 Glidewire was introduced. A micropuncture sheath exchanged for a 4-Northern Irish sheath and a VCF catheter was placed over the wire and through the sheath, and aortogram and pelvic arteriogram was obtained. A Glidewire and a VCF catheter were navigated down to the right common femoral artery while extremity arteriograms were obtained. The patient was then heparinized with 7 units of IV heparin and additionally 3000 units were administered 30 minutes later. A 0.035 Cota guidewire was advanced into the mid SFA. The VCF catheter and 4-Northern Irish sheath were removed and a 6-Northern Irish 55-cm Armaan sheath was introduced. A CXI catheter was placed over the Cota and the WEB GRAPHIC DESIGNER wire was used. With the CXI catheter navigated down to the below-knee popliteal artery. The wire was exchanged for a Viper wire and the orbital atherectomy device was then used to atherectomize the popliteal and SFA. At the completion, we performed angioplasty of 5 mm and a completion angiogram showed a sluggish flow in the distal popliteal artery. The catheter and wire easily passed down to the mid tibia and injection confirmed the tibial opacification. The wire and catheter were removed and the heparin was flushed down the sheath along with calcium channel blockers. The sheath will remain in place overnight for intra-arterial heparinization. The patient's foot is warm, pink, and perfused at the end of the case. There were no other complications. I was present and scrubbed for the entire procedure. INTERPRETATION OF IMAGES: The patient has patent terminal aorta, cardiogenic arteries bilaterally that are very calcified and tortuous, but no hemodynamically significant stenoses. The common femoral and profunda are patent. The SFA was patent down to the distal SFA, at which point several calcified lesions were identified. They were flow-limiting. The popliteal artery similarly has a below-knee stenosis and there was 2-vessel runoff to the foot with the anterior tibial artery being severely diseased. After atherectomy there was sluggish flow in the below-knee popliteal artery. MD DERRICK Beatty/kenny , 03:41 PM , 03:49 PM
[2018-04-08 19:46] LABS: Hematocrit 22.1 % (39.0-51.0); Hemoglobin 7.3 gm/dL (13.0-17.0); Mean Corpuscular Hemoglobin 31.3 pg (27.0-34.0); Mean Corpuscular Volume 94.7 fL (80.0-100.0); Mean Platelet Volume 5.8 fL (7.0-11.0); Platelet Count 561 th/mm3 (150-450); Red Blood Count 2.33 mil/mm3 (4.50-5.90); Red Cell Distribution Width 15.4 % (11.6-17.2); White Blood Count 12.4 th/mm3 (4.0-11.0)
[2018-04-08 19:59] LABS: Activated Partial Thrombo Time 35.5 sec (24.3-30.1); INR 1.2 Ratio; Prothrombin Time 12.2 sec (9.8-11.6)
[2018-04-08] MEDS ORDERED: Senna/Docusate Sodium 8.6/50 MG Tablet PO SCH (21:00)
[2018-04-08] MEDS: Sodium Chloride 0.9% 2 ML Flush BID IV.FLUSH SCH (21:46)
[2018-04-08 22:56] LABS: Baso # (Auto) 0.1 th/mm3 (0.0-0.2); Baso % (Auto) 0.9 % (0.0-2.0); Eos # (Auto) 0.3 th/mm3 (0.0-0.4); Eos % (Auto) 1.9 % (0.0-4.0); Lymph # (Auto) 1.1 th/mm3 (1.0-4.8); Lymph % (Auto) 8.5 % (9.0-44.0); Mean Corpuscular Hemoglobin 33.7 pg (27.0-34.0); Mean Corpuscular Volume 93.7 fL (80.0-100.0); Mean Platelet Volume 6.3 fL (7.0-11.0); Mono # (Auto) 1.1 th/mm3 (0.0-0.9); Mono % (Auto) 8.3 % (0.0-8.0); Neut # (Auto) 10.6 th/mm3 (1.8-7.7); Neut % (Auto) 80.4 % (16.0-70.0); Platelet Count 497 th/mm3 (150-450); Red Blood Count 1.95 mil/mm3 (4.50-5.90); Red Cell Distribution Width 15.8 % (11.6-17.2); White Blood Count 13.2 th/mm3 (4.0-11.0)
[2018-04-08 23:00] LABS: Hematocrit 18.3 % (39.0-51.0); Hemoglobin 6.6 gm/dL (13.0-17.0)
[2018-04-08 23:42] LABS: Lymphocytes 3 % (9-44); Monocytes 11 % (0-8)
[2018-04-08 23:43] LABS: Platelet Morphology Normal (Normal); Toxic Granulation 3+
[2018-04-08 23:44] LABS: Ovalocytes 1+
[2018-04-09 04:46] LABS: Mean Corpuscular HGB Conc 34.5 % (32.0-36.0); Mean Corpuscular Volume 92.6 fL (80.0-100.0); Mean Platelet Volume 5.8 fL (7.0-11.0); Platelet Count 508 th/mm3 (150-450); Red Cell Distribution Width 15.8 % (11.6-17.2); White Blood Count 13.2 th/mm3 (4.0-11.0)
[2018-04-09 04:50] LABS: Hematocrit 20.4 % (39.0-51.0)
[2018-04-09 05:06] LABS: Anion Gap 8 meq/L (5-15); Blood Urea Nitrogen 12 mg/dL (7-18); Carbon Dioxide 25.1 meq/L (21.0-32.0); Chloride 96 meq/L (98-107); Glomerular Filtration Rate Greater Than 89 mL/min (>89); Glucose,Random 105 mg/dL (74-106); Potassium 4.1 meq/L (3.5-5.1); Sodium 129 meq/L (136-145)
--- NOTE | 2018-04-09 09:03 | P.PNVS ---
Subjective Subjective/Hospital Course: POD#1 s/p R LE atherectomy foot ok, warm, motor intact no L groin hematoma around sheath Objective Vital Signs / I&O: Vital Signs 04/08/18 12:30 04/08/18 15:24 04/08/18 15:57 Temperature Pulse Rate 69 Respiratory Rate 18 16 Blood Pressure 123/64 Pulse Oximetry 100 100 04/08/18 18:00 04/08/18 20:00 04/08/18 23:14 Temperature 97.6 F 98.1 F 98.4 F Pulse Rate 68 73 80 Respiratory Rate 16 16 16 Blood Pressure 119/56 L 137/62 130/63 Pulse Oximetry 100 95 96 04/09/18 02:00 04/09/18 03:00 04/09/18 04:00 Temperature 98.4 F Pulse Rate 74 74 79 Respiratory Rate 16 Blood Pressure 126/80 Pulse Oximetry 96 04/09/18 05:00 04/09/18 05:55 Temperature Pulse Rate 72 73 Respiratory Rate Blood Pressure Pulse Oximetry Intake & Output 04/08/18 04/09/18 04/09/18 18:59 06:59 18:59 Intake Total 240 / 240 240 / 240 Balance 240 / 240 240 / 240 Weight 57.153 kg 55.4 kg Intake: Oral 240 / 240 240 / 240 Other: # Incontinent Voids 2 Date of Last Bowel Movement 04/08/18 04/09/18 # Bowel Movements 3 # Incontinent Bowel Movements 3 Weight On Admission 57.153 kg Physical Exam: L groin soft leg warm to ankle foot ok, motor intact Laboratory Results - last 24 hr 04/08/18 04/08/18 04/08/18 12:20 19:37 19:37 WBC 12.4 H RBC 2.33 L Hgb 7.3 L Hct 22.1 L MCV 94.7 MCH 31.3 MCHC 33.0 RDW 15.4 Plt Count 561 H MPV 5.8 L Prelim Diff (Auto) Neut % (Auto) Lymph % (Auto) [place] % (Auto) Eos % (Auto) Baso % (Auto) Neut # (Auto) Lymph # (Auto) [place] # (Auto) Eos # (Auto) Baso # (Auto) WBC Differential Seg Neuts % (Manual) Band Neuts % (Manual) Lymphocytes % (Manual) Monocytes % (Manual) Basophils % (Manual) Abs Neuts (Manual) Differential Comment Toxic Granulation Platelet Estimate Platelet Morphology Ovalocytes Keratocytes PT 12.2 H INR 1.2 APTT 35.5 H Sodium 129 L Potassium 4.4 Chloride 95 L Carbon Dioxide 26.4 Anion Gap 8 BUN 16 Creatinine 0.66 Estimated GFR Greater than 89 Random Glucose 125 H Calcium 8.3 L Blood Type Antibody Screen 04/08/18 04/08/18 04/09/18 22:03 22:03 00:28 WBC 13.2 H RBC 1.95 L Hgb 6.6 L* Hct 18.3 L* MCV 93.7 MCH 33.7 MCHC 36.0 RDW 15.8 Plt Count 497 H MPV 6.3 L Prelim Diff (Auto) Slide review pending Neut % (Auto) 80.4 H Lymph % (Auto) 8.5 L [place] % (Auto) 8.3 H Eos % (Auto) 1.9 Baso % (Auto) 0.9 Neut # (Auto) 10.6 H Lymph # (Auto) 1.1 [place] # (Auto) 1.1 H Eos # (Auto) 0.3 Baso # (Auto) 0.1 WBC Differential Manual diff final Seg Neuts % (Manual) 71 H Band Neuts % (Manual) 14 H Lymphocytes % (Manual) 3 L Monocytes % (Manual) 11 H Basophils % (Manual) 1 Abs Neuts (Manual) 11.2 H Differential Comment . Toxic Granulation 3+ H Platelet Estimate High H Platelet Morphology Normal Ovalocytes 1+ H Keratocytes Occ H PT INR APTT 30.9 H Sodium Potassium Chloride Carbon Dioxide Anion Gap BUN Creatinine Estimated GFR Random Glucose Calcium Blood Type A Positive Antibody Screen Negative 04/09/18 04/09/18 04:28 04:28 WBC 13.2 H RBC 2.20 L Hgb 7.0 L Hct 20.4 L* MCV 92.6 MCH 32.0 MCHC 34.5 RDW 15.8 Plt Count 508 H MPV 5.8 L Prelim Diff (Auto) Neut % (Auto) Lymph % (Auto) [place] % (Auto) Eos % (Auto) Baso % (Auto) Neut # (Auto) Lymph # (Auto) [place] # (Auto) Eos # (Auto) Baso # (Auto) WBC Differential Seg Neuts % (Manual) Band Neuts % (Manual) Lymphocytes % (Manual) Monocytes % (Manual) Basophils % (Manual) Abs Neuts (Manual) Differential Comment Toxic Granulation Platelet Estimate Platelet Morphology Ovalocytes Keratocytes PT INR APTT Sodium 129 L Potassium 4.1 Chloride 96 L Carbon Dioxide 25.1 Anion Gap 8 BUN 12 Creatinine 0.58 L Estimated GFR Greater than 89 Random Glucose 105 Calcium 8.0 L Blood Type Antibody Screen Assessment and Plan - Assessment (1) PAD (peripheral artery disease) Code(s): I73.9 - Peripheral vascular disease, unspecified Status: Acute - Plan POD#1 s/p atherectomy with overnight intraarterial heparinization 1. Sheath removed today 2. BR until 1100 today then OOB with assistance 3. D/C to long term this afternoon 4. RTC 1 week with ABIs
[2018-04-09] MEDS: Sodium Chloride 0.9% 2 ML Flush BID IV.FLUSH SCH (09:44)
[2018-04-09 10:45] VITALS: RESP 14
[2018-04-09 11:32] VITALS: BP 144/65; TEMP 98.1; O2SAT 99
--- NOTE | 2018-04-09 12:24 | P.DS ---
Discharge Summary - Admission Date 04/08/18 14:07 - Admission Diagnosis (1) PAD (peripheral artery disease) - Discharge Date 04/09/18 - Discharge Diagnosis (1) PAD (peripheral artery disease) Status: Chronic - Summary Brief History from admission: 87/M C/O R LE claudication Pt arrived for a R LE angiogram and potential endovascular intervention Procedure: Aortogram w/ R LE angiogram Significant Findings: Left groin soft and non tender w/o hematoma or swelling LE w/ motor intact Ab s/nt and BS+ Abnormal Lab Results 04/08/18 04/08/18 04/08/18 12:20 19:37 19:37 WBC 12.4 H RBC 2.33 L Hgb 7.3 L Hct 22.1 L MCV 94.7 MCH 31.3 MCHC 33.0 RDW 15.4 Plt Count 561 H MPV 5.8 L Prelim Diff (Auto) Neut % (Auto) Lymph % (Auto) [place] % (Auto) Eos % (Auto) Baso % (Auto) Neut # (Auto) Lymph # (Auto) [place] # (Auto) Eos # (Auto) Baso # (Auto) WBC Differential Seg Neuts % (Manual) Band Neuts % (Manual) Lymphocytes % (Manual) Monocytes % (Manual) Basophils % (Manual) Abs Neuts (Manual) Differential Comment Toxic Granulation Platelet Estimate Platelet Morphology Ovalocytes Keratocytes PT 12.2 H INR 1.2 APTT 35.5 H Sodium 129 L Potassium 4.4 Chloride 95 L Carbon Dioxide 26.4 Anion Gap 8 BUN 16 Creatinine 0.66 Estimated GFR Greater than 89 Random Glucose 125 H Calcium 8.3 L Blood Type Antibody Screen 04/08/18 04/08/18 04/09/18 22:03 22:03 00:28 WBC 13.2 H RBC 1.95 L Hgb 6.6 L* Hct 18.3 L* MCV 93.7 MCH 33.7 MCHC 36.0 RDW 15.8 Plt Count 497 H MPV 6.3 L Prelim Diff (Auto) Slide review pending Neut % (Auto) 80.4 H Lymph % (Auto) 8.5 L [place] % (Auto) 8.3 H Eos % (Auto) 1.9 Baso % (Auto) 0.9 Neut # (Auto) 10.6 H Lymph # (Auto) 1.1 [place] # (Auto) 1.1 H Eos # (Auto) 0.3 Baso # (Auto) 0.1 WBC Differential Manual diff final Seg Neuts % (Manual) 71 H Band Neuts % (Manual) 14 H Lymphocytes % (Manual) 3 L Monocytes % (Manual) 11 H Basophils % (Manual) 1 Abs Neuts (Manual) 11.2 H Differential Comment . Toxic Granulation 3+ H Platelet Estimate High H Platelet Morphology Normal Ovalocytes 1+ H Keratocytes Occ H PT INR APTT 30.9 H Sodium Potassium Chloride Carbon Dioxide Anion Gap BUN Creatinine Estimated GFR Random Glucose Calcium Blood Type A Positive Antibody Screen Negative 04/09/18 04/09/18 04:28 04:28 WBC 13.2 H RBC 2.20 L Hgb 7.0 L Hct 20.4 L* MCV 92.6 MCH 32.0 MCHC 34.5 RDW 15.8 Plt Count 508 H MPV 5.8 L Prelim Diff (Auto) Neut % (Auto) Lymph % (Auto) [place] % (Auto) Eos % (Auto) Baso % (Auto) Neut # (Auto) Lymph # (Auto) [place] # (Auto) Eos # (Auto) Baso # (Auto) WBC Differential Seg Neuts % (Manual) Band Neuts % (Manual) Lymphocytes % (Manual) Monocytes % (Manual) Basophils % (Manual) Abs Neuts (Manual) Differential Comment Toxic Granulation Platelet Estimate Platelet Morphology Ovalocytes Keratocytes PT INR APTT Sodium 129 L Potassium 4.1 Chloride 96 L Carbon Dioxide 25.1 Anion Gap 8 BUN 12 Creatinine 0.58 L Estimated GFR Greater than 89 Random Glucose 105 Calcium 8.0 L Blood Type Antibody Screen Hospital Course: 87/M s/p R LE angiogram with findings of severe calcific SFA and popliteal disease and 2 vessel runoff decreased perfusion after intervention Pt admitted for surveillance POD 0 Sheath intact w/o swelling POD 1 s/p atherectomy with overnight intraarterial heparinization/Sheath removed w/o difficulty Pt was placed on BR for 2 Hours post sheath removal L groin soft w/o swelling or hematoma LE w/ motor intact Pt clear for D/C with f/u in 1W with a surveillance AWAIS Questionable dark green to black stool this am- NO abdominal pain or weakness reported F/U with GI in 1W for out pt w/u - Discharge Instructions Any questions or concerns: Call [facility] at [facility] [phone] Discharge Plan - Discharge Disposition Patient Disposition: 03 Discharge to SNF - Discharge Condition Condition: Good - Discharge Order Discharge Orders: Discharge Order (Routine); Ordered 04/09/18 Ordered By: Natalia Lr - Physicians Team Primary Care Provider: Doug Bravo V Attending Provider: Urban Oliva - Rxs /Orders / Referrals /Forms Prescriptions: Continue amiodarone 200 mg Tablet 200 mg PO DAILY diltiazem HCl 30 mg Tablet 30 mg PO TID ferrous sulfate 325 mg (65 mg iron) Tablet 325 mg PO TID gabapentin 300 mg Capsule 300 mg PO TID glipizide 10 mg Tablet 10 mg PO BID hydrocodone-acetaminophen 5-325 mg Tablet 1 tab PO Q6H Lactobacillus acidoph-L.bulgar [Floranex] 1 million cell Tablet 1 tab PO DAILY levothyroxine 125 mcg Tablet 125 mcg PO DAILY magnesium oxide 400 mg magnesium Tablet 400 mg PO BID meloxicam 7.5 mg Tablet 7.5 mg PO DAILY pravastatin 40 mg Tablet 40 mg PO DAILY ranitidine HCl 300 mg Tablet 300 mg PO DAILY sitagliptin [Januvia] 100 mg Tablet 100 mg PO DAILY sod phos di, mono-K phos mono [Phospha 250 Neutral] 250 mg Tablet 1 tab PO QID sodium chloride 1 gram Tablet 1,000 mg PO TID Referrals: Doug Bravo MD [Primary Care Provider] - See Instructions Urban Oliva MD [Physician] - See Instructions (Follow up in 1W with an AWAIS 04/18/18 @ 0800) Jorge Guevara MD [Physician] - See Instructions (F/U in 1W - 1 epsiode of dark stool ) - Discharge Instructions Patient Printed Instructions: Angiogram (DC) - Post Discharge Care Plan Care Plan Goals: Discharge Care Plan Goals After Vascular Surgery Contact: Please call [phone] if you have any problems or have questions regarding your hospitalization. Directions to Meet Your Goals: 1. Diet: * You may resume a regular diet as you were eating at home before your admission. 2. Activity: * Increase your activity level gradually. * Keep surgical extremities elevated when at rest. This will help limit the swelling, bruising and discomfort normally present after surgery. * Walking is a good form of light exercise. Go for a walk at least 3 times per day. * No heavy lifting (lifting over 10 pounds) for at least 4 weeks from surgery. * Check with your surgeon to ensure when you are cleared for heavy lifting and full-intensity exercising. * Your strength will gradually improve. * No driving or operating motorized vehicles while on prescription pain medications. * No swimming until wounds fully healed. 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 3. Bathing: Shower daily. * Gently let soap and water run over your incision and pat dry. Do not scrub the incision/wound. * Don't soak in a bath or submerge your incision in water until your incision is healed and evaluated by your physician at follow-up (usually two weeks). 4. Wound Care: INCISION SITE CARE INSTRUCTIONS: * You may leave your incision open to air. * Keep your incision clean and dry, unless showering. See above. * Moisture near the incision will cause the wound to open. * No lotions, creams, ointments, or powders on incisions until they are well- healed. * If you have glue over the incision(s), allow it to fall off naturally in 1-3 weeks * If present, forrest/sutures will be removed 2-3 weeks after surgery during your follow-up clinic visit. * If present, change dressing/bandage when soaked/soiled as needed. * Observe wound daily, checking for signs and symptoms of infection including: foul odor, drainage from the incision, increased redness, increased pain at incision, or increased swelling. 5. Pain Control: Expect post-operative pain for 1-4 weeks after surgery. Your pain will improve gradually. * You may have been provided with a prescription for pain medication. Please take as directed, and be aware of side effects such as drowsiness, constipation and mild stomach discomfort. Pain pills on an empty stomach can cause nausea , so eat a small amount of food, such as crackers, when taking these pills. * Take wcmn-uhh-vlcuzki stool softeners (Colace or Senna) with your prescribed pain medication. * Acetaminophen (500mg every 6 hours) or Ibuprofen (400mg every 6 hours) may be used in conjunction with narcotics to relieve pain. DO NOT take more than 4 grams (4000mg) of Tylenol in one day, as this can harm your liver. DO NOT take ibuprofen IF: you have an allergy to non-steroidal anti-inflammatory medications, you are taking Coumadin, you have been told you have kidney problems, or you have a history of gastrointestinal bleeding or ulcers. DO NOT take more than 3.2 grams (3200mg) of ibuprofen in one day. * You may also find relief from using heat packs or pads or ice packs. 6. Bowel Regimen for Constipation: * People who undergo surgery are likely to develop post-operative constipation. Exposure to narcotics and changes in diet, fluid intake, and physical activity are known contributors to constipation. We recommend routine stool softeners and/ or laxatives after surgery for most patients. Start by taking one medication. You can increase as directed to relieve constipation. Stop taking these medications if you develop diarrhea. These medications are available over-the- counter and do not require a prescription: * Colace is a stool softener. We recommend starting at 100mg orally twice per day as needed for soft stools and increase to a maximum of 200mg twice daily as needed. * Senna is a laxative that works by keeping water in the intestine to help stool move along the intestinal tract. Take 1 tablet daily as needed for soft stool and increase to a maximum of 2 tablets twice daily as needed. Take Senna with two full glasses of water each time. * Miralax, Dulcolax and Milk of Magnesia are other lmkf-iwe-mwklaku laxatives that may be used as needed for post-operative constipation. * Drink 6-8 glasses of water per day. * Consume 15-30g of fiber per day: * Metamucil powder, 1-2 tablespoons 1-2 times/day OR Benefiber powder, 2 tablespoons 4 times/day. * Avoid straining. 7. Follow-Up: Do Not miss your follow-up appointment. Keep up with all your appointments and yearly check ups If you have any of the following symptoms please call [phone] immediately: Excessive swelling of the affected extremity Sudden onset of severe or unusual pain in the affected extremity Pain that gets worse or is not relieved by medication Warmth, redness, or swelling in the skin around the wound Foul drainage from incision Extensive bruising or discoloration Wound that opens up or pulls apart Fever above 101.5F or shaking chills Nausea or vomiting Severe diarrhea or severe constipation Dizziness or fainting Chest pain, shortness of breath, or increased work of breathing Weight gain >10 lbs over 3-4 days Inability to urinate for more than 6 hours Cloudy or foul smelling urine Urge to urinate more often than usual Symptoms to Report to Your Doctor: Temperature 101F or higher Pain uncontrolled by medication Drainage or foul odor from incision Extensive bruising or discoloration Chest pain Shortness of breath Nausea, vomiting or dizziness Call 911: Call 911 right away if you have: Sudden onset of chest pain that is not relieved by medications Shortness of breath
[2018-04-09 18:42] VITALS: PULSE 74
== END 2018-04-09 15:12 ==
LOC: HDOC 11:29 → HDIC 11:34 → HCPC 17:50
PROVIDERS: ADMIT Surgery; ATTEND Surgery
PROC: ANGIOLE (2018-04-08 13:30)

== ENCOUNTER 2018-04-11 11:01 | Inpatient (IN) ==
[2018-04-11] MEDS ORDERED: Sodium Chlor 0.9% Inj 500 ML IV.SIG ONE (11:57)
[2018-04-11] MEDS ORDERED: Pantoprazole Inj 40 MG Vial IV.PUSH ONE (11:57)
--- NOTE | 2018-04-11 12:05 | ED ---
HPI General Chief complaint: Recheck/Abnormal Lab/Rx Stated complaint: Poss Labs Time Seen by Provider: 04/11/18 11:41 Source: patient and RN notes reviewed Mode of arrival: ambulatory Limitations: no limitations History of Present Illness HPI narrative: 87-year-old male presents to the emergency department sent from nursing facility for low hemoglobin. The patient was just here on April 08, 2018, seen by Dr. Oliva and had arteriogram with lower extremity angiogram, right SFA and popliteal arthrectomy to the right lower extremity. According to chart, he did have episode of anemia here in the hospital, but was not week and was instructed to follow-up. Patient is confused on my exam. He does know his name and is at the hospital, but is slightly confused about the year, month and president. The patient has no complaints to me. He denies any pain. He does report history of hip fracture, but cannot tell me when. He is unsure if he has had any recent fall. According to chart, he has history of hypertension, diabetes, A. fib. He is not on anticoagulants, but is currently on meloxicam. Moderate severity. Onset (ago): day(s) Radiation: non-radiation Severity: moderate Relieving factors: none Exacerbating factors: none Associated symptoms: Reports denies other symptoms Treatments prior to arrival: Reports none Related Data Home Medications Medication Instructions Recorded Confirmed Lactobacillus acidoph-L.bulgar 1 tab PO DAILY 04/08/18 04/11/18 [Floranex] amiodarone 200 mg PO DAILY 04/08/18 04/11/18 diltiazem HCl 30 mg PO TID 04/08/18 04/11/18 ferrous sulfate 325 mg PO TID 04/08/18 04/11/18 gabapentin 300 mg PO TID 04/08/18 04/11/18 glipizide 10 mg PO BID 04/08/18 04/11/18 hydrocodone-acetaminophen 1 tab PO Q6H 04/08/18 04/11/18 levothyroxine 125 mcg PO DAILY 04/08/18 04/11/18 magnesium oxide 400 mg PO QID 04/08/18 04/11/18 meloxicam 7.5 mg PO DAILY 04/08/18 04/11/18 pravastatin 40 mg PO DAILY 04/08/18 04/11/18 ranitidine HCl 300 mg PO DAILY 04/08/18 04/11/18 sitagliptin [Januvia] 100 mg PO DAILY 04/08/18 04/11/18 sod phos di, mono-K phos mono 1 tab PO QID 04/08/18 04/11/18 [Phospha 250 Neutral] sodium chloride 1,000 mg PO TID 04/08/18 04/11/18 ascorbic acid (vitamin C) [Vitamin 500 mg PO BID 04/11/18 04/11/18 C] insulin aspart U-100 [Novolog 1 - 10 units SUBCUT DIRECTED 04/11/18 04/11/18 U-100 Insulin aspart] Allergies Allergy/AdvReac Type Severity Reaction Status Date / Time No Known Allergies Allergy Verified 04/08/18 12:35 Review of Systems ROS: all other systems reviewed are negative [facility] Medical History Medical History Weakness (Acute) Diabetes (Acute) HLD (hyperlipidemia) (Acute) MRSA (methicillin resistant Staphylococcus aureus) (Acute) PAD (peripheral artery disease) (Acute) Surgical History Surgical History History of hip surgery (Acute) Social History Social History Substance History: No History of Abuse Smoking Status: Former smoker How Often Do You Have a Drink Containing Alcohol: Never Recent Travel in [facility] within the Last 8 Weeks: No Recent Out of Country Travel within the Last 8 Weeks: No Immunization History Tetanus Immunization: Unsure Exam Narrative Exam Narrative: GENERAL: Well-nourished, well-developed elderly male patient, afebrile. SKIN: Focused skin assessment warm/dry. Patient has ulcers to the left posterior calf, left posterior ankle. He also has a small draining wound to the right lateral thigh. Wound culture is taken. No hematoma to groin noted. HEAD: Normocephalic. Atraumatic EYES: No scleral icterus. No injection or drainage. Right pupil 3 mm, left pupil 5 mm unknown chronicity NECK: Supple, trachea midline. No JVD or lymphadenopathy. CARDIOVASCULAR: Regular rate and rhythm without murmurs, gallops, or rubs. RESPIRATORY: Breath sounds equal bilaterally. No accessory muscle use. Lung sounds are clear to auscultation GASTROINTESTINAL: Abdomen soft and nondistended. He reports mild tenderness over RLQ to palpation MUSCULOSKELETAL: No cyanosis, or edema. BACK: Nontender without obvious deformity. No CVA tenderness. RECTAL EXAM: No masses or tenderness, stool is black, Hemoccult positive. This exam was done with INGA Chavira, at bedside. Procedures Hemaprompt Stool Procedural Steps Taken: specimen placed in appropriate test area, developer placed on specimen and control areas and controls appropriately positive and negative Hemaprompt Stool Result: positive Course Initial Documented Vital Signs Temperature 98.1 F 04/11/18 11:15 Pulse Rate 65 04/11/18 11:15 Blood Pressure 113/54 L 04/11/18 11:15 Pulse Oximetry 100 04/11/18 11:15 Last Documented Vital Signs Temperature 98.1 F 04/11/18 11:15 Pulse Rate 62 04/11/18 12:16 Blood Pressure 113/54 L 04/11/18 11:15 Pulse Oximetry 100 04/11/18 12:16 Medical Decision Making MDM Narrative Medical decision making narrative: 87-year-old male presents to the emergency department for low hemoglobin. My exam, he also appears to be slightly confused. IV access obtained. EKG, CBC, CMP, troponin, magnesium, lipase, PTT , PT/INR, UA, type and screen are ordered and pending. Patient is given normal saline 500 ml bolus, Protonix [address] of the brain, CT abdomen/pelvis without contrast ordered and pending. CBC shows leukocytosis of 13.2, hgb 6.7, hct 20.8, 21% band neutrophils. CMP shows hyponatremia of 130. Lipase is 63. Troponin is less than 0.02. Magnesium is 1.8. PTT is 27.3. PT/INR is 27.3/1.1. UA is negative for acute infection. CT of the brain is stable. Ct abdomen/pelvis shows 1. There is marked destructive changes of the right proximal femur identified. The trochanteric nail hardware now extends beyond the femoral head cortex partially destroyed. There is also a patchy/permeative appearance of the shield tuberosity without obvious fracture.2. Stool ball in the rectum and a large amount of stool throughout the colon.3. Nonobstructing left renal calculi and left renal cyst.4. Interval development of moderate left hydronephrosis and hydroureter without obvious obstructing stone. In for band neutrophil. He is given 2 units PRBCs. Patient will be admitted for GI bleed, hydronephrosis, bandemia. Residents paged for admission. Medical Screen Exam Complete: Yes Emergency Medical Condition: Yes Differential Diagnosis Differential Diagnosis: GI bleed vs. electrolyte abnormality vs. chronic anemia vs. intracranial abnormality Medical Records Medical records reviewed: Yes I reviewed the patient's medical records. Lab Data Result diagrams: 04/11/18 11:30 04/11/18 11:30 Lab Results 04/11/18 04/11/18 04/11/18 Range/Units 11:30 11:30 11:30 WBC 13.2 H (4.0-11.0) th/mm3 RBC 2.18 L (4.50-5.90) mil/mm3 Hgb 6.7 L* (13.0-17.0) gm/dL Hct 20.8 L* (39.0-51.0) % MCV 95.1 (80.0-100.0) fL MCH 30.7 (27.0-34.0) pg MCHC 32.3 (32.0-36.0) % RDW 15.7 (11.6-17.2) % Plt Count 533 H (150-450) th/mm3 MPV 6.4 L (7.0-11.0) fL Prelim Diff (Auto) Slide review pending Neut % (Auto) 76.6 H (16.0-70.0) % Lymph % (Auto) 9.7 (9.0-44.0) % [place] % (Auto) 10.5 H (0.0-8.0) % Eos % (Auto) 2.3 (0.0-4.0) % Baso % (Auto) 0.9 (0.0-2.0) % Neut # (Auto) 10.1 H (1.8-7.7) th/mm3 Lymph # (Auto) 1.3 (1.0-4.8) th/mm3 [place] # (Auto) 1.4 H (0.0-0.9) th/mm3 Eos # (Auto) 0.3 (0.0-0.4) th/mm3 Baso # (Auto) 0.1 (0.0-0.2) th/mm3 WBC Differential Manual diff final Seg Neuts % (Manual) 54 (16-70) % Band Neuts % (Manual) 21 H (0-6) % Lymphocytes % (Manual) 15 (9-44) % Monocytes % (Manual) 9 H (0-8) % Myelocytes % (Man) 1 H (0-0) % Abs Neuts (Manual) 10.0 H (1.8-7.7) th/mm3 Differential Comment . Toxic Granulation 1+ H (None) Platelet Estimate High H (Normal) Platelet Morphology Normal (Normal) PT 11.6 (9.8-11.6) sec INR 1.1 Ratio APTT 27.3 (24.3-30.1) sec Sodium 130 L (136-145) meq/L Potassium 3.7 (3.5-5.1) meq/L Chloride 97 L (98-107) meq/L Carbon Dioxide 24.6 (21.0-32.0) meq/L Anion Gap 8 (5-15) meq/L BUN 17 (7-18) mg/dL Creatinine 0.62 (0.60-1.30) mg/dL Estimated GFR Greater than 89 (>89) mL/min Random Glucose 150 H (74-106) mg/dL Calcium 8.1 L (8.5-10.1) mg/dL Magnesium 1.8 (1.5-2.5) mg/dL Total Bilirubin 0.2 (0.2-1.0) mg/dL AST 19 (15-37) U/L ALT 21 (12-78) U/L Alkaline Phosphatase 104 (45-117) U/L Troponin I Less than 0.02 L (0.02-0.05) ng/mL Total Protein 7.4 (6.4-8.2) g/dL Albumin 2.4 L (3.4-5.0) g/dL Lipase 63 L (73-393) U/L Urine Color (Yellw/Straw) Urine Clarity (Clear) Urine pH (5.0-8.5) Ur Specific [place] (1.002-1.035) Urine Protein (Neg-Trace) mg/dL Urine Glucose (UA) (Negative) mg/dL Urine Ketones (Negative) mg/dL Urine Occult Blood (Negative) Urine Nitrate (Negative) Urine Bilirubin (Negative) Urine Urobilinogen (Less than 2) mg/dL Ur Leukocyte Esterase (Negative) Hyaline Casts (0-3) /lpf Urine Mucus (Occasional) /lpf Micro UA Comment Ur Microscopic Review Urine Culture Comments MTS Gel Crossmatch 04/11/18 04/11/18 Range/Units 12:20 12:33 WBC (4.0-11.0) th/mm3 RBC (4.50-5.90) mil/mm3 Hgb (13.0-17.0) gm/dL Hct (39.0-51.0) % MCV (80.0-100.0) fL MCH (27.0-34.0) pg MCHC (32.0-36.0) % RDW (11.6-17.2) % Plt Count (150-450) th/mm3 MPV (7.0-11.0) fL Prelim Diff (Auto) Neut % (Auto) (16.0-70.0) % Lymph % (Auto) (9.0-44.0) % [place] % (Auto) (0.0-8.0) % Eos % (Auto) (0.0-4.0) % Baso % (Auto) (0.0-2.0) % Neut # (Auto) (1.8-7.7) th/mm3 Lymph # (Auto) (1.0-4.8) th/mm3 [place] # (Auto) (0.0-0.9) th/mm3 Eos # (Auto) (0.0-0.4) th/mm3 Baso # (Auto) (0.0-0.2) th/mm3 WBC Differential Seg Neuts % (Manual) (16-70) % Band Neuts % (Manual) (0-6) % Lymphocytes % (Manual) (9-44) % Monocytes % (Manual) (0-8) % Myelocytes % (Man) (0-0) % Abs Neuts (Manual) (1.8-7.7) th/mm3 Differential Comment Toxic Granulation (None) Platelet Estimate (Normal) Platelet Morphology (Normal) PT (9.8-11.6) sec INR Ratio APTT (24.3-30.1) sec Sodium (136-145) meq/L Potassium (3.5-5.1) meq/L Chloride (98-107) meq/L Carbon Dioxide (21.0-32.0) meq/L Anion Gap (5-15) meq/L BUN (7-18) mg/dL Creatinine (0.60-1.30) mg/dL Estimated GFR (>89) mL/min Random Glucose (74-106) mg/dL Calcium (8.5-10.1) mg/dL Magnesium (1.5-2.5) mg/dL Total Bilirubin (0.2-1.0) mg/dL AST (15-37) U/L ALT (12-78) U/L Alkaline Phosphatase (45-117) U/L Troponin I (0.02-0.05) ng/mL Total Protein (6.4-8.2) g/dL Albumin (3.4-5.0) g/dL Lipase (73-393) U/L Urine Color Yellow (Yellw/Straw) Urine Clarity Clear (Clear) Urine pH 6.0 (5.0-8.5) Ur Specific [place] 1.016 (1.002-1.035) Urine Protein Negative (Neg-Trace) mg/dL Urine Glucose (UA) Negative (Negative) mg/dL Urine Ketones Negative (Negative) mg/dL Urine Occult Blood Negative (Negative) Urine Nitrate Negative (Negative) Urine Bilirubin Negative (Negative) Urine Urobilinogen 4 or greater (Less than 2) mg/dL Ur Leukocyte Esterase Negative (Negative) Hyaline Casts 1 (0-3) /lpf Urine Mucus Few H (Occasional) /lpf Micro UA Comment Cath-culture not ind Ur Microscopic Review Not Reportable Urine Culture Comments Cath-cult not ind MTS Gel Crossmatch See Detail Imaging Data Radiologist's impression: Abdomen/Pelvis CT 04/11/18 11:57 CONCLUSION: 1. There is marked destructive changes of the right proximal femur identified. The trochanteric nail hardware now extends beyond the femoral head cortex partially destroyed. There is also a patchy/permeative appearance of the shield tuberosity without obvious fracture. 2. Stool ball in the rectum and a large amount of stool throughout the colon. 3. Nonobstructing left renal calculi and left renal cyst. 4. Interval development of moderate left hydronephrosis and hydroureter without obvious obstructing stone. Head CT 04/11/18 11:59 CONCLUSION: 1. Stable appearance of the brain. . Discharge Plan Discharge Disposition Patient Disposition: 30 Still Patient Discharge Details Diagnosis: GI bleed, Bandemia, Hydronephrosis Physicians Team ED Provider: Prince Ybarra ED Midlevel Provider: Katarina Aleman Primary Care Provider: Primary Care Meri Collins Rxs /Orders / Referrals /Forms Prescriptions: No Action pravastatin 40 mg Tablet 40 mg PO DAILY RF: 0 amiodarone 200 mg Tablet 200 mg PO DAILY RF: 0 ranitidine HCl 300 mg Tablet 300 mg PO DAILY RF: 0 hydrocodone-acetaminophen 5-325 mg Tablet 1 tab PO Q6H RF: 0 glipizide 10 mg Tablet 10 mg PO BID RF: 0 sodium chloride 1 gram Tablet 1,000 mg PO TID RF: 0 meloxicam 7.5 mg Tablet 7.5 mg PO DAILY RF: 0 ferrous sulfate 325 mg (65 mg iron) Tablet 325 mg PO TID RF: 0 levothyroxine 125 mcg Tablet 125 mcg PO DAILY RF: 0 gabapentin 300 mg Capsule 300 mg PO TID RF: 0 sod phos di, mono-K phos mono [Phospha 250 Neutral] 250 mg Tablet 1 tab PO QID RF: 0 diltiazem HCl 30 mg Tablet 30 mg PO TID RF: 0 sitagliptin [Januvia] 100 mg Tablet 100 mg PO DAILY RF: 0 Lactobacillus acidoph-L.bulgar [Floranex] 1 million cell Tablet 1 tab PO DAILY RF: 0 magnesium oxide 400 mg magnesium Tablet 400 mg PO QID RF: 0 ascorbic acid (vitamin C) [Vitamin C] 500 mg Tablet 500 mg PO BID RF: 0 insulin aspart U-100 [Novolog U-100 Insulin aspart] 100 unit/mL Solution 1 - 10 units subcut DIRECTED RF: 0 Status ED Status: Admitted Patient
[2018-04-11 12:19] LABS: Baso # (Auto) 0.1 th/mm3 (0.0-0.2); Baso % (Auto) 0.9 % (0.0-2.0); Eos # (Auto) 0.3 th/mm3 (0.0-0.4); Eos % (Auto) 2.3 % (0.0-4.0); Lymph # (Auto) 1.3 th/mm3 (1.0-4.8); Lymph % (Auto) 9.7 % (9.0-44.0); Mean Corpuscular HGB Conc 32.3 % (32.0-36.0); Mean Corpuscular Hemoglobin 30.7 pg (27.0-34.0); Mean Corpuscular Volume 95.1 fL (80.0-100.0); Mean Platelet Volume 6.4 fL (7.0-11.0); Mono # (Auto) 1.4 th/mm3 (0.0-0.9); Mono % (Auto) 10.5 % (0.0-8.0); Neut # (Auto) 10.1 th/mm3 (1.8-7.7); Neut % (Auto) 76.6 % (16.0-70.0); Platelet Count 533 th/mm3 (150-450); Red Blood Count 2.18 mil/mm3 (4.50-5.90); Red Cell Distribution Width 15.7 % (11.6-17.2); White Blood Count 13.2 th/mm3 (4.0-11.0)
[2018-04-11 12:24] LABS: Hematocrit 20.8 % (39.0-51.0); Hemoglobin 6.7 gm/dL (13.0-17.0)
[2018-04-11 12:30] LABS: Activated Partial Thrombo Time 27.3 sec (24.3-30.1); INR 1.1 Ratio; Prothrombin Time 11.6 sec (9.8-11.6)
[2018-04-11 12:37] LABS: Bilirubin,Urine Negative (Negative); Clarity,Urine Clear (Clear); Color,Urine Yellow (Yellw/Straw); Glucose,Urine (UA) Negative (Negative); Hyaline Casts,Urine 1 /lpf (0-3); Leukocyte Esterase,Urine Negative (Negative); Mucus,Urine Few /lpf (Occasional); Nitrite,Urine Negative (Negative); Specific Gravity,Urine 1.016 (1.002-1.035); Urobilinogen,Urine 4 or Greater mg/dL (Less than 2)
[2018-04-11 12:41] LABS: Alanine Aminotransferase 21 U/L (12-78); Albumin 2.4 g/dL (3.4-5.0); Anion Gap 8 meq/L (5-15); Aspartate Aminotransferase 19 U/L (15-37); Blood Urea Nitrogen 17 mg/dL (7-18); Calcium 8.1 mg/dL (8.5-10.1); Carbon Dioxide 24.6 meq/L (21.0-32.0); Chloride 97 meq/L (98-107); Glomerular Filtration Rate Greater Than 89 mL/min (>89); Glucose,Random 150 mg/dL (74-106); Lipase 63 U/L (73-393); Magnesium 1.8 mg/dL (1.5-2.5); Potassium 3.7 meq/L (3.5-5.1); Sodium 130 meq/L (136-145)
--- NOTE | 2018-04-11 12:43 | CT ---
EXAM DATE: 04/11/2018 12:41 PM EDT AGE/SEX: 87 years / Male INDICATIONS: Altered mental status. CLINICAL DATA: This is the patient's initial encounter. Patient reports that signs and symptoms have been present for 1 day and indicates a pain score of 0/10. MEDICAL/SURGICAL HISTORY: Hypertension. Cardiovascular disease. Diabetes. . Recent arteriogram wi th lower extremity angiogram, right SFA and popliteal arthrectomy to the right lower extremity. RADIATION DOSE: 56.35 CTDI (mGy) COMPARISON: [facility] [place], CT BRAIN W/O CONTRAST, 08/26/2017. . TECHNIQUE: CT of the head without contrast. Using automated exposure control and adjustment of the mA and/or kV according to patient size, radiation dose was kept as low as reasonably achievable to ob tain optimal diagnostic quality images. DICOM format image data is available electronically for revi ew and comparison. FINDINGS: There is diffuse atrophy and moderate patchy and confluent hypodensity in the bilateral centrum semio salena and periventricular white matter, bilateral basal ganglia, unchanged and most characteristic of chronic microvascular ischemic disease. No fractures are seen. No hemorrhage, mass or acute infarct i dentified. Atherosclerotic calcifications are seen. CONCLUSION: 1. Stable appearance of the brain. . Electronically signed by: Filiberto Grullon MD 04/11/2018 12:42 PM EDT
[2018-04-11 12:46] LABS: Alkaline Phosphatase 104 U/L (45-117); Total Protein 7.4 g/dL (6.4-8.2)
[2018-04-11 12:51] LABS: Lymphocytes 15 % (9-44); Monocytes 9 % (0-8); Myelocytes 1 % (0-0); Platelet Morphology Normal (Normal); Toxic Granulation 1+
--- NOTE | 2018-04-11 12:57 | CT ---
EXAM DATE: 04/11/2018 12:39 PM EDT AGE/SEX: 87 years / Male INDICATIONS: Anemia, low hemoglobin. CLINICAL DATA: This is the patient's initial encounter. Patient reports that signs and symptoms have been present for 4 - 6 days and indicates a pain score of 0/10. MEDICAL/SURGICAL HISTORY: Diabetes. Hypertension. Cardiovascular disease. . Recent arteriogra m with lower extremity angiogram, right SFA and popliteal arthrectomy to the right lower extremity. RADIATION DOSE: 6.94 CTDI (mGy) COMPARISON: [facility] [place], CT ABDOMEN & PELVIS W CONTRAST, 10/01/2017. . TECHNIQUE: Multiple contiguous axial images were obtained through the abdomen. Images were obtained using multiple row detector helical technique. Using automated exposure control and adjustment of the mA and/or kV according to patient size, radiation dose was kept as low as reasonably achievable to o btain optimal diagnostic quality images. DICOM format image data is available electronically for rev iew and comparison. FINDINGS: There is cardiomegaly and coronary artery calcification. Liver, gallbladder, spleen, pancreas, adrena l glands are unremarkable. Nonobstructing 4 mm left midpole calculus. 1.2 cm left lower pole renal cy st. There is mild hydronephrosis and hydroureter of moderate severity identified of the left. The rig ht kidney is unremarkable. There is no evidence of bowel obstruction. There is a large stool ball pre sent in the rectum. A moderate amount of stool is noted throughout the large bowel. There is moderate to severe diverticulosis without diverticulitis. Small fat-containing umbilical hernia. 2 mm left lo wer pole renal calculus. Calcified pleural plaques are seen at the lung bases. There are degenerative changes of the spine noted. There is evidence of previous surgery to the right proximal femur with i ntramedullary mehran and trochanteric nail fixation hardware seen. Since the previous study there has be en increased destruction of the femoral head with marked cortical loss identified. There is also a pe rmeative appearance of the right initial tuberosity identified. Lung bases are clear. The urinary emanuel dder is distended. CONCLUSION: 1. There is marked destructive changes of the right proximal femur identified. The trochanteric nail hardware now extends beyond the femoral head cortex partially destroyed. There is also a patchy/perm eative appearance of the shield tuberosity without obvious fracture. 2. Stool ball in the rectum and a large amount of stool throughout the colon. 3. Nonobstructing left renal calculi and left renal cyst. 4. Interval development of moderate left hydronephrosis and hydroureter without obvious obstructing stone. Electronically signed by: Filiberto Grullon MD 04/11/2018 12:56 PM EDT
[2018-04-11] MEDS ORDERED: Piperacil/Tazo 3.375 GM Premix 50 ML IV.SIG ONE (13:02)
[2018-04-11] MEDS ORDERED: Vancomycin Inj 1,000 MG in Sodium Chlor 0.9% Inj 250 ML IV.SIG ONE (13:02)
--- NOTE | 2018-04-11 14:08 | P.HPFP ---
History of Present Illness Primary Care Physician: No Primary Care Physician History of Present Illness: 87-year-old male with history of hypertension, diabetes, chronic nonhealing wounds, PAD with recent right LE arterectomy presents to the ED via [facility] for severe anemia. He is currently a resident of [facility]. Patient found to have a low hemoglobin of 6.6. Patient is a poor historian, difficult to obtain history. Patient states that his last blood transfusion was about 4 years ago. Patient does currently have black tarry stools. He denies history of chronic NSAID use. Per EMR, patient had a flexible sigmoid endoscopy with biopsy on 10-03-17. Impressions were diverticulosis severe descending, sigmoid semisolid stool, healing colitis at splenic flexure. Retroflexed views reviewed internal hemorrhoids and external hemorrhoids. Patient denies chest pain, shortness of breath, fevers, nausea vomiting, weakness, lightheadedness, abdominal pain, and urinary symptoms. PMHx: HTN, T2DM, chronic non-healing wounds SHx: Right hip surgery, right LE arterectomy FM: Mother-DM at 80s, Father "old age" in 90s Social: Originally from [facility]. Retired, twice now , 2 children that live in [place]. Never smoker, social drinker, no drugs. Allergies: None Code: DNR, proxy would be Ewa agudelo - Diagnosis (1) GI bleed (2) PAD (peripheral artery disease) (3) Bandemia (4) Hydronephrosis (5) HTN (hypertension) (6) Diabetes (7) Chronic wound of extremity (8) Nutrition, metabolism, and development symptoms Review of Systems Constitutional: Denies fever(s), Denies weakness, Denies weight loss Eyes: Denies change in vision Ears, Nose, Mouth, and Throat: Denies difficulty swallowing Cardiovascular: Denies chest pain Respiratory: Denies cough, Denies shortness of breath Gastrointestinal: Reports black, tarry stools, Denies abdominal pain Genitourinary: Denies difficulty urinating Skin/Breast: Reports skin ulcer Neurologic: Denies tingling/numbness/burning sensations Psychiatric: Denies confusion PMFSH - History History Provided By: Patient, Medical Record - Medical History Medical History: Medical History (Last Updated 04/11/18 @ 11:42 by Ayala Miguel) Weakness Diabetes HLD (hyperlipidemia) MRSA (methicillin resistant Staphylococcus aureus) PAD (peripheral artery disease) - Surgical History Surgical History: Surgical History (Last Updated 04/11/18 @ 11:43 by Ayala Miguel) History of hip surgery - Family History Family History: Family History (Last Updated 04/11/18 @ 20:24 by Erica Hurst MD, R2) Other Diabetes - Social History I have reviewed the patient's Social History: Yes - Tobacco History Smoking Status: Never smoker - Alcohol History How Often Do You Have a Drink Containing Alcohol: Never - Substance Use History Substance History: No History of Abuse - Travel History Recent Travel in the [place] Within the Last 8 Weeks: No Recent Travel Out of the Country Within the Last 8 Weeks: No - Immunization History Tetanus Immunization: Unsure Medications and Allergies Active Medications: Active Medications Vancomycin HCl 1,000 mg/ (Sodium Chloride) 250 mls @ 250 mls/hr IV.SIG ONCE ONE Stop: 04/11/18 14:01 Piperacillin/Tazobactam/Dextrose (Zosyn 3.375 Gm Premix) 50 mls @ 100 mls/hr IV.SIG ONCE ONE Stop: 04/11/18 13:31 Sodium Chloride (Ns Flush) 2 ml IV.FLUSH PRN PRN PRN Reason: FLUSH AFTER USING IV ACCESS Last Admin: 04/11/18 12:47 Dose: 2 ml Sodium Chloride (Ns Flush) 2 ml IV.FLUSH BID ACE Sodium Chloride (Ns Flush) 2 ml IV.FLUSH PRN PRN PRN Reason: FLUSH AFTER USING IV ACCESS Allergies Allergy/AdvReac Type Severity Reaction Status Date / Time No Known Allergies Allergy Verified 04/08/18 12:35 Home Medications Medication Instructions Recorded Confirmed Type Lactobacillus acidoph-L.bulgar 1 tab PO DAILY 04/08/18 04/11/18 History [Floranex] amiodarone 200 mg PO DAILY 04/08/18 04/11/18 History diltiazem HCl 30 mg PO TID 04/08/18 04/11/18 History ferrous sulfate 325 mg PO TID 04/08/18 04/11/18 History gabapentin 300 mg PO TID 04/08/18 04/11/18 History glipizide 10 mg PO BID 04/08/18 04/11/18 History hydrocodone-acetaminophen 1 tab PO Q6H 04/08/18 04/11/18 History levothyroxine 125 mcg PO DAILY 04/08/18 04/11/18 History magnesium oxide 400 mg PO QID 04/08/18 04/11/18 History meloxicam 7.5 mg PO DAILY 04/08/18 04/11/18 History pravastatin 40 mg PO DAILY 04/08/18 04/11/18 History ranitidine HCl 300 mg PO DAILY 04/08/18 04/11/18 History sitagliptin [Januvia] 100 mg PO DAILY 04/08/18 04/11/18 History sod phos di, mono-K phos mono 1 tab PO QID 04/08/18 04/11/18 History [Phospha 250 Neutral] sodium chloride 1,000 mg PO TID 04/08/18 04/11/18 History ascorbic acid (vitamin C) [Vitamin 500 mg PO BID 04/11/18 04/11/18 History C] insulin aspart U-100 [Novolog 1 - 10 units SUBCUT DIRECTED 04/11/18 04/11/18 History U-100 Insulin aspart] Exam Vital signs: Vital Signs 04/11/18 11:15 04/11/18 12:16 Temperature 98.1 F Pulse Rate 65 62 Blood Pressure 113/54 L Pulse Oximetry 100 97 Intake & Output 04/10/18 04/11/18 04/11/18 18:59 06:59 18:59 Intake Total 500 / 500 Balance 500 / 500 Weight 58.967 kg Intake: IV 500 / 500 NS Inj 500 ML @ Wide Open IV. 500 / 500 SIG BOLUS ONE Rx#:[id number] Narrative: General: Pleasant, elderly male in no acute distress Skin: Patient refused assessment of chronic ulcers. Per ED note, patient has ulcers on the left posterior calf, left posterior ankle. Small draining wound to the right lateral thigh. HEENT. PERRLA EOMI Cardio: Regular rate and rhythm, no murmurs rubs or gallops Pulmonary: Clear to auscultation bilaterally, no wheezes or crackles Abdomen: Soft nontender nondistended positive bowel sounds no guarding or rebound MSK: No cyanosis or edema Back: Nontender. No CVA tenderness. Results - Labs Result diagrams: 04/11/18 11:30 04/11/18 11:30 Abnormal lab results 04/11/18 04/11/18 04/11/18 Range/Units 11:30 11:30 12:20 WBC 13.2 H (4.0-11.0) th/mm3 RBC 2.18 L (4.50-5.90) mil/mm3 Hgb 6.7 L* (13.0-17.0) gm/dL Hct 20.8 L* (39.0-51.0) % Plt Count 533 H (150-450) th/mm3 MPV 6.4 L (7.0-11.0) fL Neut % (Auto) 76.6 H (16.0-70.0) % [place] % (Auto) 10.5 H (0.0-8.0) % Neut # (Auto) 10.1 H (1.8-7.7) th/mm3 [place] # (Auto) 1.4 H (0.0-0.9) th/mm3 Band Neuts % (Manual) 21 H (0-6) % Monocytes % (Manual) 9 H (0-8) % Myelocytes % (Man) 1 H (0-0) % Abs Neuts (Manual) 10.0 H (1.8-7.7) th/mm3 Toxic Granulation 1+ H (None) Platelet Estimate High H (Normal) Sodium 130 L (136-145) meq/L Chloride 97 L (98-107) meq/L Random Glucose 150 H (74-106) mg/dL Calcium 8.1 L (8.5-10.1) mg/dL Troponin I Less than 0.02 L (0.02-0.05) ng/mL Albumin 2.4 L (3.4-5.0) g/dL Lipase 63 L (73-393) U/L Urine Mucus Few H (Occasional) /lpf MTS Gel Crossmatch 04/11/18 Range/Units 12:33 WBC (4.0-11.0) th/mm3 RBC (4.50-5.90) mil/mm3 Hgb (13.0-17.0) gm/dL Hct (39.0-51.0) % Plt Count (150-450) th/mm3 MPV (7.0-11.0) fL Neut % (Auto) (16.0-70.0) % [place] % (Auto) (0.0-8.0) % Neut # (Auto) (1.8-7.7) th/mm3 [place] # (Auto) (0.0-0.9) th/mm3 Band Neuts % (Manual) (0-6) % Monocytes % (Manual) (0-8) % Myelocytes % (Man) (0-0) % Abs Neuts (Manual) (1.8-7.7) th/mm3 Toxic Granulation (None) Platelet Estimate (Normal) Sodium (136-145) meq/L Chloride (98-107) meq/L Random Glucose (74-106) mg/dL Calcium (8.5-10.1) mg/dL Troponin I (0.02-0.05) ng/mL Albumin (3.4-5.0) g/dL Lipase (73-393) U/L Urine Mucus (Occasional) /lpf MTS Gel Crossmatch See Detail Short CBC 04/11/18 Range/Units 11:30 WBC 13.2 H (4.0-11.0) th/mm3 Hgb 6.7 L* (13.0-17.0) gm/dL Hct 20.8 L* (39.0-51.0) % Plt Count 533 H (150-450) th/mm3 BMP 04/11/18 11:30 Sodium 130 L Potassium 3.7 Chloride 97 L Carbon Dioxide 24.6 BUN 17 Creatinine 0.62 Calcium 8.1 L Cardiac Enzymes 04/11/18 Range/Units 11:30 Troponin I Less than 0.02 L (0.02-0.05) ng/mL Liver Function 04/11/18 Range/Units 11:30 Total Bilirubin 0.2 (0.2-1.0) mg/dL AST 19 (15-37) U/L ALT 21 (12-78) U/L Alkaline Phosphatase 104 (45-117) U/L Albumin 2.4 L (3.4-5.0) g/dL Urine 04/11/18 Range/Units 12:20 Urine Color Yellow (Yellw/Straw) Urine Clarity Clear (Clear) Urine pH 6.0 (5.0-8.5) Ur Specific [place] 1.016 (1.002-1.035) Urine Protein Negative (Neg-Trace) mg/dL Urine Glucose (UA) Negative (Negative) mg/dL - Imaging Impressions Abdomen/Pelvis CT 04/11/18 11:57 CONCLUSION: 1. There is marked destructive changes of the right proximal femur identified. The trochanteric nail hardware now extends beyond the femoral head cortex partially destroyed. There is also a patchy/permeative appearance of the shield tuberosity without obvious fracture. 2. Stool ball in the rectum and a large amount of stool throughout the colon. 3. Nonobstructing left renal calculi and left renal cyst. 4. Interval development of moderate left hydronephrosis and hydroureter without obvious obstructing stone. Head CT 04/11/18 11:59 CONCLUSION: 1. Stable appearance of the brain. . Caprini VTE Risk Assessment Caprini VTE Risk Assessment: Moderate/High Risk (score >= 2) Caprini Risk Assessment Model: Point Value = 1 Point Value = 2 Point Value = 3 Point Value = 5 Age 41-60 Minor surgery BMI > 25 kg/m2 Swollen legs Varicose veins or History of unexplained or recurrent spontaneous Oral contraceptives or hormone replacement Sepsis (< 1 month) Serious lung disease, including pneumonia (< 1 month) Abnormal pulmonary function Acute myocardial infarction Congestive heart failure (< 1 month) History of inflammatory bowel disease Medical patient at bed rest Age 61-74 Arthroscopic surgery Major open surgery (> 45 min) Laparoscopic surgery (> 45 min) Malignancy Confined to bed (> 72 hours) Immobilizing plaster cast Central venous access Age >= 75 History of VTE Family history of VTE Factor V Leiden Prothrombin [id number] Lupus anticoagulant Anticardiolipin antibodies Elevated serum homocysteine Heparin-induced thrombocytopenia Other congenital or acquired thrombophilia Stroke (< 1 month) Elective arthroplasty Hip, pelvis, or leg fracture Acute spinal cord injury (< 1 month) Prophylaxis Regimen: Total Risk Factor Score Risk Level Prophylaxis Regimen 0-1 Low Early ambulation 2 Moderate Order ONE of the following: *Sequential Compression Device (SCD) *Heparin 5000 units SQ BID 3-4 Higher Order ONE of the following medications: *Heparin 5000 units SQ TID *Enoxaparin/Lovenox 40 mg SQ daily (WT < 150 kg, CrCl > 30 mL/min) *Enoxaparin/Lovenox 30 mg SQ daily (WT < 150 kg, CrCl > 10-29 mL/min) *Enoxaparin/Lovenox 30 mg SQ BID (WT < 150 kg, CrCl > 30 mL/min) AND/OR *Sequential Compression Device (SCD) 5 or more Highest Order ONE of the following medications: *Heparin 5000 units SQ TID (Preferred with Epidurals) *Enoxaparin/Lovenox 40 mg SQ daily (WT < 150 kg, CrCl > 30 mL/min) *Enoxaparin/Lovenox 30 mg SQ daily (WT < 150 kg, CrCl > 10-29 mL/min) *Enoxaparin/Lovenox 30 mg SQ BID (WT < 150 kg, CrCl > 30 mL/min) AND *Sequential Compression Device (SCD) Assessment and Plan - Assessment (1) GI bleed Code(s): K92.2 - Gastrointestinal hemorrhage, unspecified Status: Acute Plan: 87-year-old male with history of hypertension, diabetes, chronic nonhealing wounds, PAD with recent right LE arterectomy presents to the ED via [facility] for severe anemia and melena. Suspected upper GI bleed. GI on board Consulted, appreciate recommendations H&H on admission 6.7/20.8 2 units of packed red blood cells ordered Will check H&H posttransfusion Liquid diet, n.p.o. at midnight Protonix 40 mg twice daily IV Endoscopy in the a.m. (2) PAD (peripheral artery disease) Code(s): I73.9 - Peripheral vascular disease, unspecified Status: Chronic Plan: s/p recent right LE arterectomy Vascular on board, appreciated recommendations Patient will need antiplatelet therapy (3) Bandemia Code(s): D72.825 - Bandemia Status: Acute Plan: CBC demonstrates Bands of 21 Continue to monitor Peripheral smear ordered (4) Hydronephrosis Code(s): N13.30 - Unspecified hydronephrosis Status: Acute Plan: Abdominal pelvis CT demonstrates development of moderate left hydronephrosis and hydroureter. Also demonstrates stool ball in the rectum large amount of stool throughout the colon. MiraLAX daily Dulcolax suppository tonight Bladder scan ordered. Will insert urinary catheter if needed (5) HTN (hypertension) Code(s): I10 - Essential (primary) hypertension Status: Acute Plan: Continue Cardizem and amiodarone (6) Diabetes Code(s): E11.9 - Type 2 diabetes mellitus without complications Status: Acute Plan: Held home glipizide, Januvia Accu-Cheks Low-dose sliding scale Hypoglycemia protocol in place (7) Chronic wound of extremity Status: Acute Plan: Patient currently follows up with wound care as an outpatient Right hip wound, super observant dressing daily Skin tear lower left extremity, Santyl covered and dry dressing daily Right heel wound, apply gentamicin cream twice daily Wound care consulted, appreciate recommendations (8) Nutrition, metabolism, and development symptoms Code(s): R63.8 - Other symptoms and signs concerning food and fluid intake Status: Acute Plan: Fluids: P.o. hydration Diet: Liquid diet, n.p.o. after midnight Vitals every 4, monitor I's and O's DVT prophylaxis: Contraindicated due to upper GI bleed (1) GI bleed Qualifiers: GI bleed type/associated pathology: unspecified gastrointestinal hemorrhage type Qualified Code(s): K92.2 - Gastrointestinal hemorrhage, unspecified (4) Hydronephrosis Qualifiers: Hydronephrosis type: unspecified Qualified Code(s): N13.30 - Unspecified hydronephrosis
[2018-04-11] MEDS ORDERED: Acetaminophen 325 MG Tablet PO PRN (14:57)
[2018-04-11] MEDS ORDERED: Naloxone Inj 0.4 MG/ML Vial IV.PUSH PRN (14:57)
--- NOTE | 2018-04-11 16:34 | P.PNWCN ---
Wound Care Nurse Consult Additional information: Late entry for 04/11/2018 1600:Patient not seen on . Spoke with Rosalba Nascimento , she is busy, and cant assess patient wounds at this moment. RN to call when ready.If wound care nurse is unavailable RN to follow wound care guidelines until seen by wound care nurse on Saturday.
--- NOTE | 2018-04-11 16:40 | P.CONGI ---
History of Present Illness Consult date: 04/11/18 Consult reason: Black tarry stools possible upper GI bleed with severe anemia Chief complaint: GI bleed, Bandemia, Hydronephrosis History of Present Illness: This is a 87-year-old male who came into the hospital on 04/11/2018 after dark tarry stools were noticed at the [facility]. Patient denied seeing any dark stools but had staff members who were assisting him with his care. Patient denies any chronic nausea or vomiting or dyspepsia. No recent EGD to his knowledge but previous flex sigmoid on 10/03/2017 per the records showing severe diverticulosis descending colon and healing colitis. Patient also notes recent surgery 1 week ago and according to the record right leg lower extremity atherectomy performed per Dr. Jacob. Hemoglobin on discharge from the hospital noted 10.4 and on admission today 6.7. Patient is pending transfusion. Patient is awake answering some simple questions but a poor historian. He currently denies any blood thinners and no abdominal pain and no dizziness and no recent ibuprofen or Aleve.. CT scan done on admission showed positive stool throughout the colon and stool ball in the rectum consistent with constipation. Labs reviewed which show hemoglobin 6.7 and WBC count 13.2, platelet count 513 and ESR greater than 140. Gastroenterology was consulted to assist with possible upper GI bleed, symptomatic anemia and black tarry stools. Patient is noted to be on iron supplement. <Renea Lee - Last Filed: 04/11/18 16:50> Review of Systems All other systems reviewed negative except as stated in HPI <Renea Lee - Last Filed: 04/11/18 16:50> PMFSH - History History Provided By: Patient, Medical Record - Medical History Medical History: Medical History (Last Updated 04/11/18 @ 11:42 by Ayala Miguel) Weakness Diabetes HLD (hyperlipidemia) MRSA (methicillin resistant Staphylococcus aureus) PAD (peripheral artery disease) - Surgical History Surgical History: Surgical History (Last Updated 04/11/18 @ 11:43 by Ayala Mgiuel) History of hip surgery - Tobacco History Smoking Status: Former smoker - Alcohol History How Often Do You Have a Drink Containing Alcohol: Never - Substance Use History Substance History: No History of Abuse - Travel History Recent Travel in the [facility] Within the Last 8 Weeks: No Recent Travel Out of the Country Within the Last 8 Weeks: No - Immunization History Tetanus Immunization: Unsure <Renea Lee - Last Filed: 04/11/18 16:50> - Medical History Medical History: Medical History (Last Updated 04/11/18 @ 11:42 by Ayala Miguel) Weakness Diabetes HLD (hyperlipidemia) MRSA (methicillin resistant Staphylococcus aureus) PAD (peripheral artery disease) - Surgical History Surgical History: Surgical History (Last Updated 04/11/18 @ 11:43 by Ayala Miguel) History of hip surgery <Jorge Guevara - Last Filed: 04/11/18 21:52> Medications and Allergies Active Medications: Active Medications Acetaminophen (Tylenol) 650 mg PO Q6HR PRN PRN Reason: PAIN SCALE 1 TO 2 Hydrocodone Bitart/Acetaminophen (Caldwell 5/325) 1 tab PO Q6H [facility] Hydrocodone Bitart/Acetaminophen (Caldwell 7.5/325) 1 tab PO Q4H PRN PRN Reason: PAIN SCALE 6 TO 10 Amiodarone HCl (Cordarone) 200 mg PO DAILY [facility] Ascorbic Acid (Vitamin C) 500 mg PO BID [facility] Collagenase (Santyl Oint) 1 applicatio TOPICAL DAILY [facility] Dextrose (D50w Vial) 50 ml IV.PUSH UNSCH PRN PRN Reason: PER HYPOGLYCEMIA PROTOCOL Diltiazem HCl (Cardizem) 30 mg PO TID [facility] Ferrous Sulfate (Ferosul) 325 mg PO TID [facility] Gabapentin (Neurontin) 300 mg PO TID [facility] Gentamicin Sulfate (Gentamicin 0.1% Cream) 1 applicatio TOPICAL BID [facility] Glucagon (Glucagon Inj) 1 mg OTHER PRN PRN PRN Reason: for Hypoglycemia Protocol Insulin Aspart (Novolog Insulin Correctional Sugar Inj) 0 unit SQ ACHS [facility]; Protocol Levothyroxine Sodium (Synthroid) 125 mcg PO DAILY@0600 [facility] Magnesium Oxide (Mag-Ox) 400 mg PO QID [facility] Morphine Sulfate (Morphine Inj) 2 mg IV.PUSH Q3H PRN PRN Reason: BREAKTHROUGH PAIN Naloxone HCl (Narcan Inj) 0.4 mg IV.PUSH UNSCH PRN PRN Reason: SEE LABEL COMMENTS Pantoprazole Sodium (Protonix Inj) 40 mg IV.PUSH BID [facility] Potassium Phos/Sodium Phos (K-Phos Neutral) 250 mg PO QID [facility] Pravastatin Sodium (Pravachol) 40 mg PO DAILY [facility] Sodium Chloride (Ns Flush) 2 ml IV.FLUSH BID [facility] Sodium Chloride (Ns Flush) 2 ml IV.FLUSH PRN PRN PRN Reason: FLUSH AFTER USING IV ACCESS Sodium Chloride (Sodium Chloride) 1 gm PO TID [facility] <Renea Lee M - Last Filed: 04/11/18 16:50> Active Medications: Active Medications Acetaminophen (Tylenol) 650 mg PO Q6HR PRN PRN Reason: PAIN SCALE 1 TO 2 Hydrocodone Bitart/Acetaminophen (Caldwell 5/325) 1 tab PO Q6H [facility] Last Admin: 04/11/18 21:36 Dose: 1 tab Hydrocodone Bitart/Acetaminophen (Caldwell 7.5/325) 1 tab PO Q4H PRN PRN Reason: PAIN SCALE 6 TO 10 Amiodarone HCl (Cordarone) 200 mg PO DAILY [facility] Ascorbic Acid (Vitamin C) 500 mg PO BID [facility] Last Admin: 04/11/18 21:36 Dose: 500 mg Collagenase (Santyl Oint) 1 applicatio TOPICAL DAILY [facility] Dextrose (D50w Vial) 50 ml IV.PUSH UNSCH PRN PRN Reason: PER HYPOGLYCEMIA PROTOCOL Diltiazem HCl (Cardizem) 30 mg PO TID [facility] Last Admin: 04/11/18 18:13 Dose: 30 mg Ferrous Sulfate (Ferosul) 325 mg PO TID [facility] Last Admin: 04/11/18 18:13 Dose: 325 mg Gabapentin (Neurontin) 300 mg PO TID [facility] Last Admin: 04/11/18 18:13 Dose: 300 mg Gentamicin Sulfate (Gentamicin 0.1% Cream) 1 applicatio TOPICAL BID [facility] Glucagon (Glucagon Inj) 1 mg OTHER PRN PRN PRN Reason: for Hypoglycemia Protocol Insulin Aspart (Novolog Insulin Correctional Sugar Inj) 0 unit SQ [facility]; Protocol Last Admin: 04/11/18 21:37 Dose: Not Given Levothyroxine Sodium (Synthroid) 125 mcg PO DAILY@0600 [facility] Magnesium Oxide (Mag-Ox) 400 mg PO QID [facility] Last Admin: 04/11/18 21:37 Dose: 400 mg Morphine Sulfate (Morphine Inj) 2 mg IV.PUSH Q3H PRN PRN Reason: BREAKTHROUGH PAIN Naloxone HCl (Narcan Inj) 0.4 mg IV.PUSH UNSCH PRN PRN Reason: SEE LABEL COMMENTS Pantoprazole Sodium (Protonix Inj) 40 mg IV.PUSH BID [facility] Last Admin: 04/11/18 21:38 Dose: 40 mg Polyethylene Glycol (Miralax) 17 gm PO DAILY [facility] Last Admin: 04/11/18 18:18 Dose: 17 gm Potassium Phos/Sodium Phos (K-Phos Neutral) 250 mg PO QID [facility] Last Admin: 04/11/18 21:36 Dose: 250 mg Pravastatin Sodium (Pravachol) 40 mg PO DAILY [facility] Sodium Chloride (Ns Flush) 2 ml IV.FLUSH BID [facility] Last Admin: 04/11/18 21:38 Dose: 2 ml Sodium Chloride (Ns Flush) 2 ml IV.FLUSH PRN PRN PRN Reason: FLUSH AFTER USING IV ACCESS Sodium Chloride (Sodium Chloride) 1 gm PO TID [facility] Last Admin: 04/11/18 18:13 Dose: 1 gm <Jorge Guevara E - Last Filed: 04/11/18 21:52> Allergies Allergy/AdvReac Type Severity Reaction Status Date / Time No Known Allergies Allergy Verified 04/08/18 12:35 Home Medications Medication Instructions Recorded Confirmed Type Lactobacillus acidoph-L.bulgar 1 tab PO DAILY 04/08/18 04/11/18 History [Floranex] amiodarone 200 mg PO DAILY 04/08/18 04/11/18 History diltiazem HCl 30 mg PO TID 04/08/18 04/11/18 History ferrous sulfate 325 mg PO TID 04/08/18 04/11/18 History gabapentin 300 mg PO TID 04/08/18 04/11/18 History glipizide 10 mg PO BID 04/08/18 04/11/18 History hydrocodone-acetaminophen 1 tab PO Q6H 04/08/18 04/11/18 History levothyroxine 125 mcg PO DAILY 04/08/18 04/11/18 History magnesium oxide 400 mg PO QID 04/08/18 04/11/18 History meloxicam 7.5 mg PO DAILY 04/08/18 04/11/18 History pravastatin 40 mg PO DAILY 04/08/18 04/11/18 History ranitidine HCl 300 mg PO DAILY 04/08/18 04/11/18 History sitagliptin [Januvia] 100 mg PO DAILY 04/08/18 04/11/18 History sod phos di, mono-K phos mono 1 tab PO QID 04/08/18 04/11/18 History [Phospha 250 Neutral] sodium chloride 1,000 mg PO TID 04/08/18 04/11/18 History ascorbic acid (vitamin C) [Vitamin 500 mg PO BID 04/11/18 04/11/18 History C] insulin aspart U-100 [Novolog 1 - 10 units SUBCUT DIRECTED 04/11/18 04/11/18 History U-100 Insulin aspart] Exam Vital signs: Vital Signs 04/11/18 11:15 04/11/18 12:16 04/11/18 14:22 Temperature 98.1 F Pulse Rate 65 62 68 Respiratory Rate 18 Blood Pressure 113/54 L 125/83 Pulse Oximetry 100 97 99 Intake & Output 04/10/18 04/11/18 04/11/18 18:59 06:59 18:59 Intake Total 500 / 500 Balance 500 / 500 Weight 58.967 kg Intake: IV 500 / 500 NS Inj 500 ML @ Wide Open IV. 500 / 500 SIG BOLUS ONE Rx#:[id number] - Constitutional mild distress, thin, cachectic, disheveled, cooperative - Routine HEENT Exam Head: Present: normocephalic ENT: Present: mucous membranes dry - Routine Neck Exam Present: supple - Routine Respiratory Exam Present: accessory muscle use (No obvious shortness of breath or wheezing at rest) - Routine Cardiovascular Exam Present: S1, S2 (Heart rate regular between 62 and 68) - Routine Skin Exam Present: intact (Thin turgor with some mild petechiae and abrasions on his extremities) - Routine Neurological Exam Present: alert <Rosa,Renea M - Last Filed: 04/11/18 16:50> Vital signs: Vital Signs 04/11/18 11:15 04/11/18 12:16 04/11/18 14:22 Temperature 98.1 F Pulse Rate 65 62 68 Respiratory Rate 18 Blood Pressure 113/54 L 125/83 Pulse Oximetry 100 97 99 04/11/18 16:00 04/11/18 18:00 04/11/18 20:00 Temperature 98.0 F 98.2 F Pulse Rate 67 66 67 Respiratory Rate 16 20 Blood Pressure 113/83 122/54 L Pulse Oximetry 98 96 04/11/18 20:55 10/26/18 21:10 Temperature 98.0 F 98.0 F Pulse Rate 66 97 H Respiratory Rate 19 18 Blood Pressure 103/55 L 109/55 L Pulse Oximetry 96 95 Intake & Output 04/11/18 04/11/18 04/12/18 06:59 18:59 06:59 Intake Total 500 / 500 250 / 250 Balance 500 / 500 250 / 250 Weight 58.967 kg Intake: IV 500 / 500 250 / 250 NS Inj 500 ML @ Wide Open IV. 500 / 500 SIG BOLUS ONE Rx#:[id number] Vancomycin Inj 1,000 MG In NS 250 / 250 Inj 250 ML @ 250 mls/hr IV.SIG ONCE ONE Rx#:[id number] Intake (Blood Product) Amt 0 / 0 Rbc As-3 Leukoreduced Unit 0 / 0 [id number] Other: Date of Last Bowel Movement 04/11/18 <Jorge Guevara E - Last Filed: 04/11/18 21:52> Results - Labs CBC & Chem 7: 04/11/18 11:30 04/11/18 11:30 Labs: Laboratory Results - last 24 hr 04/11/18 04/11/18 04/11/18 11:30 11:30 11:30 WBC 13.2 H RBC 2.18 L Hgb 6.7 L* Hct 20.8 L* MCV 95.1 MCH 30.7 MCHC 32.3 RDW 15.7 Plt Count 533 H MPV 6.4 L Prelim Diff (Auto) Slide review pending Neut % (Auto) 76.6 H Lymph % (Auto) 9.7 Garden % (Auto) 10.5 H Eos % (Auto) 2.3 Baso % (Auto) 0.9 Neut # (Auto) 10.1 H Lymph # (Auto) 1.3 Garden # (Auto) 1.4 H Eos # (Auto) 0.3 Baso # (Auto) 0.1 WBC Differential Manual diff final Seg Neuts % (Manual) 54 Band Neuts % (Manual) 21 H Lymphocytes % (Manual) 15 Monocytes % (Manual) 9 H Myelocytes % (Man) 1 H Abs Neuts (Manual) 10.0 H Differential Comment . Toxic Granulation 1+ H Platelet Estimate High H Platelet Morphology Normal ESR PT 11.6 INR 1.1 APTT 27.3 Sodium 130 L Potassium 3.7 Chloride 97 L Carbon Dioxide 24.6 Anion Gap 8 BUN 17 Creatinine 0.62 Estimated GFR Greater than 89 Random Glucose 150 H Lactic Acid Calcium 8.1 L Magnesium 1.8 Total Bilirubin 0.2 AST 19 ALT 21 Alkaline Phosphatase 104 Troponin I Less than 0.02 L Total Protein 7.4 Albumin 2.4 L Lipase 63 L Urine Color Urine Clarity Urine pH Ur Specific Finley Urine Protein Urine Glucose (UA) Urine Ketones Urine Occult Blood Urine Nitrate Urine Bilirubin Urine Urobilinogen Ur Leukocyte Esterase Hyaline Casts Urine Mucus Micro UA Comment Ur Microscopic Review Urine Culture Comments MTS Gel Crossmatch 04/11/18 04/11/18 04/11/18 11:30 12:20 12:33 WBC RBC Hgb Hct MCV MCH MCHC RDW Plt Count MPV Prelim Diff (Auto) Neut % (Auto) Lymph % (Auto) Garden % (Auto) Eos % (Auto) Baso % (Auto) Neut # (Auto) Lymph # (Auto) Garden # (Auto) Eos # (Auto) Baso # (Auto) WBC Differential Seg Neuts % (Manual) Band Neuts % (Manual) Lymphocytes % (Manual) Monocytes % (Manual) Myelocytes % (Man) Abs Neuts (Manual) Differential Comment Toxic Granulation Platelet Estimate Platelet Morphology ESR Greater than 140 H PT INR APTT Sodium Potassium Chloride Carbon Dioxide Anion Gap BUN Creatinine Estimated GFR Random Glucose Lactic Acid Calcium Magnesium Total Bilirubin AST ALT Alkaline Phosphatase Troponin I Total Protein Albumin Lipase Urine Color Yellow Urine Clarity Clear Urine pH 6.0 Ur Specific Finley 1.016 Urine Protein Negative Urine Glucose (UA) Negative Urine Ketones Negative Urine Occult Blood Negative Urine Nitrate Negative Urine Bilirubin Negative Urine Urobilinogen 4 or greater Ur Leukocyte Esterase Negative Hyaline Casts 1 Urine Mucus Few H Micro UA Comment Cath-culture not ind Ur Microscopic Review Not Reportable Urine Culture Comments Cath-cult not ind MTS Gel Crossmatch See Detail 04/11/18 13:10 WBC RBC Hgb Hct MCV MCH MCHC RDW Plt Count MPV Prelim Diff (Auto) Neut % (Auto) Lymph % (Auto) Garden % (Auto) Eos % (Auto) Baso % (Auto) Neut # (Auto) Lymph # (Auto) Garden # (Auto) Eos # (Auto) Baso # (Auto) WBC Differential Seg Neuts % (Manual) Band Neuts % (Manual) Lymphocytes % (Manual) Monocytes % (Manual) Myelocytes % (Man) Abs Neuts (Manual) Differential Comment Toxic Granulation Platelet Estimate Platelet Morphology ESR PT INR APTT Sodium Potassium Chloride Carbon Dioxide Anion Gap BUN Creatinine Estimated GFR Random Glucose Lactic Acid 1.1 Calcium Magnesium Total Bilirubin AST ALT Alkaline Phosphatase Troponin I Total Protein Albumin Lipase Urine Color Urine Clarity Urine pH Ur Specific Finley Urine Protein Urine Glucose (UA) Urine Ketones Urine Occult Blood Urine Nitrate Urine Bilirubin Urine Urobilinogen Ur Leukocyte Esterase Hyaline Casts Urine Mucus Micro UA Comment Ur Microscopic Review Urine Culture Comments MTS Gel Crossmatch - Imaging Impressions Abdomen/Pelvis CT 04/11/18 11:57 CONCLUSION: 1. There is marked destructive changes of the right proximal femur identified. The trochanteric nail hardware now extends beyond the femoral head cortex partially destroyed. There is also a patchy/permeative appearance of the shield tuberosity without obvious fracture. 2. Stool ball in the rectum and a large amount of stool throughout the colon. 3. Nonobstructing left renal calculi and left renal cyst. 4. Interval development of moderate left hydronephrosis and hydroureter without obvious obstructing stone. Head CT 04/11/18 11:59 CONCLUSION: 1. Stable appearance of the brain. . <Renea Lee - Last Filed: 04/11/18 16:50> - Labs CBC & Chem 7: 04/11/18 11:30 04/11/18 11:30 Labs: Laboratory Results - last 24 hr 04/11/18 04/11/18 04/11/18 11:30 11:30 11:30 WBC 13.2 H RBC 2.18 L Hgb 6.7 L* Hct 20.8 L* MCV 95.1 MCH 30.7 MCHC 32.3 RDW 15.7 Plt Count 533 H MPV 6.4 L Prelim Diff (Auto) Slide review pending Neut % (Auto) 76.6 H Lymph % (Auto) 9.7 Garden % (Auto) 10.5 H Eos % (Auto) 2.3 Baso % (Auto) 0.9 Neut # (Auto) 10.1 H Lymph # (Auto) 1.3 Garden # (Auto) 1.4 H Eos # (Auto) 0.3 Baso # (Auto) 0.1 WBC Differential Manual diff final Seg Neuts % (Manual) 54 Band Neuts % (Manual) 21 H Lymphocytes % (Manual) 15 Monocytes % (Manual) 9 H Myelocytes % (Man) 1 H Abs Neuts (Manual) 10.0 H Differential Comment . Toxic Granulation 1+ H Platelet Estimate High H Platelet Morphology Normal ESR PT 11.6 INR 1.1 APTT 27.3 Sodium 130 L Potassium 3.7 Chloride 97 L Carbon Dioxide 24.6 Anion Gap 8 BUN 17 Creatinine 0.62 Estimated GFR Greater than 89 POC Glucose Random Glucose 150 H Lactic Acid Calcium 8.1 L Magnesium 1.8 Total Bilirubin 0.2 AST 19 ALT 21 Alkaline Phosphatase 104 Troponin I Less than 0.02 L Total Protein 7.4 Albumin 2.4 L Lipase 63 L Urine Color Urine Clarity Urine pH Ur Specific Finley Urine Protein Urine Glucose (UA) Urine Ketones Urine Occult Blood Urine Nitrate Urine Bilirubin Urine Urobilinogen Ur Leukocyte Esterase Hyaline Casts Urine Mucus Micro UA Comment Ur Microscopic Review Urine Culture Comments MTS Gel Crossmatch 04/11/18 04/11/18 04/11/18 11:30 12:20 12:33 WBC RBC Hgb Hct MCV MCH MCHC RDW Plt Count MPV Prelim Diff (Auto) Neut % (Auto) Lymph % (Auto) Garden % (Auto) Eos % (Auto) Baso % (Auto) Neut # (Auto) Lymph # (Auto) Garden # (Auto) Eos # (Auto) Baso # (Auto) WBC Differential Seg Neuts % (Manual) Band Neuts % (Manual) Lymphocytes % (Manual) Monocytes % (Manual) Myelocytes % (Man) Abs Neuts (Manual) Differential Comment Toxic Granulation Platelet Estimate Platelet Morphology ESR Greater than 140 H PT INR APTT Sodium Potassium Chloride Carbon Dioxide Anion Gap BUN Creatinine Estimated GFR POC Glucose Random Glucose Lactic Acid Calcium Magnesium Total Bilirubin AST ALT Alkaline Phosphatase Troponin I Total Protein Albumin Lipase Urine Color Yellow Urine Clarity Clear Urine pH 6.0 Ur Specific Finley 1.016 Urine Protein Negative Urine Glucose (UA) Negative Urine Ketones Negative Urine Occult Blood Negative Urine Nitrate Negative Urine Bilirubin Negative Urine Urobilinogen 4 or greater Ur Leukocyte Esterase Negative Hyaline Casts 1 Urine Mucus Few H Micro UA Comment Cath-culture not ind Ur Microscopic Review Not Reportable Urine Culture Comments Cath-cult not ind MTS Gel Crossmatch See Detail 04/11/18 04/11/18 04/11/18 13:10 16:40 20:47 WBC RBC Hgb Hct MCV MCH MCHC RDW Plt Count MPV Prelim Diff (Auto) Neut % (Auto) Lymph % (Auto) Garden % (Auto) Eos % (Auto) Baso % (Auto) Neut # (Auto) Lymph # (Auto) Garden # (Auto) Eos # (Auto) Baso # (Auto) WBC Differential Seg Neuts % (Manual) Band Neuts % (Manual) Lymphocytes % (Manual) Monocytes % (Manual) Myelocytes % (Man) Abs Neuts (Manual) Differential Comment Toxic Granulation Platelet Estimate Platelet Morphology ESR PT INR APTT Sodium Potassium Chloride Carbon Dioxide Anion Gap BUN Creatinine Estimated GFR POC Glucose 155 H 64 L Random Glucose Lactic Acid 1.1 Calcium Magnesium Total Bilirubin AST ALT Alkaline Phosphatase Troponin I Total Protein Albumin Lipase Urine Color Urine Clarity Urine pH Ur Specific Finley Urine Protein Urine Glucose (UA) Urine Ketones Urine Occult Blood Urine Nitrate Urine Bilirubin Urine Urobilinogen Ur Leukocyte Esterase Hyaline Casts Urine Mucus Micro UA Comment Ur Microscopic Review Urine Culture Comments MTS Gel Crossmatch 04/11/18 21:13 WBC RBC Hgb Hct MCV MCH MCHC RDW Plt Count MPV Prelim Diff (Auto) Neut % (Auto) Lymph % (Auto) Garden % (Auto) Eos % (Auto) Baso % (Auto) Neut # (Auto) Lymph # (Auto) Garden # (Auto) Eos # (Auto) Baso # (Auto) WBC Differential Seg Neuts % (Manual) Band Neuts % (Manual) Lymphocytes % (Manual) Monocytes % (Manual) Myelocytes % (Man) Abs Neuts (Manual) Differential Comment Toxic Granulation Platelet Estimate Platelet Morphology ESR PT INR APTT Sodium Potassium Chloride Carbon Dioxide Anion Gap BUN Creatinine Estimated GFR POC Glucose 90 Random Glucose Lactic Acid Calcium Magnesium Total Bilirubin AST ALT Alkaline Phosphatase Troponin I Total Protein Albumin Lipase Urine Color Urine Clarity Urine pH Ur Specific Finley Urine Protein Urine Glucose (UA) Urine Ketones Urine Occult Blood Urine Nitrate Urine Bilirubin Urine Urobilinogen Ur Leukocyte Esterase Hyaline Casts Urine Mucus Micro UA Comment Ur Microscopic Review Urine Culture Comments MTS Gel Crossmatch - Imaging Impressions Abdomen/Pelvis CT 04/11/18 11:57 CONCLUSION: 1. There is marked destructive changes of the right proximal femur identified. The trochanteric nail hardware now extends beyond the femoral head cortex partially destroyed. There is also a patchy/permeative appearance of the shield tuberosity without obvious fracture. 2. Stool ball in the rectum and a large amount of stool throughout the colon. 3. Nonobstructing left renal calculi and left renal cyst. 4. Interval development of moderate left hydronephrosis and hydroureter without obvious obstructing stone. Head CT 04/11/18 11:59 CONCLUSION: 1. Stable appearance of the brain. . <Jorge Guevara E - Last Filed: 04/11/18 21:52> Assessment and Plan - Plan 87-year-old male who came into the hospital on 04/11/2018 after dark tarry stools were noticed at the [facility]. Patient denied seeing any dark stools but had staff members who were assisting him with his care. Patient denies any chronic nausea or vomiting or dyspepsia. No recent EGD to his knowledge but previous flex sigmoid on 10/03/2017 per the records showing severe diverticulosis descending colon and healing colitis. Patient also notes recent surgery 1 week ago and according to the record right leg lower extremity atherectomy performed per Dr. Jacob. Hemoglobin on discharge from the hospital noted 10.4 and on admission today 6.7. Patient is pending transfusion. Patient is awake answering some simple questions but a poor historian. He currently denies any blood thinners and no abdominal pain and no dizziness and no recent ibuprofen or Aleve.. CT scan done on admission showed positive stool throughout the colon and stool ball in the rectum consistent with constipation. Labs reviewed which show hemoglobin 6.7 and WBC count 13.2, platelet count 513 and ESR greater than 140. Gastroenterology was consulted to assist with possible upper GI bleed, symptomatic anemia and black tarry stools. Dark stools possibly melena, documented per [facility] Symptomatic anemia with hemoglobin 6.7. Patient had left lower extremity atherectomy 04/09/2018. Hemoglobin noted on discharge 10.4 and patient was sent to the [facility]. History of flex sigmoid September 2017, diverticulosis descending colon and healing colitis Acute on chronic constipation, large amount of stool seen throughout colon and in the rectum per CT scan Discussed with patient the need for endoscopy to review and observe for any ulcer disease versus inflammation versus obvious bleeding. Patient initially declined but then stated he was okay with the endoscopy but no lower colonoscopy or sigmoidoscopy since that was done recently this year. There is currently no family present. Plan Diet, per attending Consent for endoscopy tomorrow am. N.p.o. at midnight PPI IV twice daily Monitor labs with special attention hemoglobin and transfuse as needed, current transfusion pending MiraLAX daily Check for impaction and give Dulcolax suppository this p.m. Further recommendations to follow Patient was seen per myself and Dr. Guevara, note was written on his behalf <Renea Lee M - Last Filed: 04/11/18 16:50> - Plan Patient seen and examined Agree with above history and physical Monitor labs Continue with current supportive care Plan on EGD tomorrow <Jorge Guevara - Last Filed: 04/11/18 21:52>
[2018-04-11] MEDS ORDERED: Bisacodyl 10 MG Supp RECTAL ONE (17:00)
--- NOTE | 2018-04-11 17:43 | P.PNVS ---
Subjective Subjective/Hospital Course: Pt well known to me, s/p R LE angiogram this week. Foot stable, still have pain in Achilles wound no motor dysfunction Objective Vital Signs / I&O: Vital Signs 04/11/18 11:15 04/11/18 12:16 04/11/18 14:22 Temperature 98.1 F Pulse Rate 65 62 68 Respiratory Rate 18 Blood Pressure 113/54 L 125/83 Pulse Oximetry 100 97 99 04/11/18 16:00 Temperature 98.0 F Pulse Rate 67 Respiratory Rate 16 Blood Pressure 113/83 Pulse Oximetry 98 Intake & Output 04/10/18 04/11/18 04/11/18 18:59 06:59 18:59 Intake Total 500 / 500 Balance 500 / 500 Weight 58.967 kg Intake: IV 500 / 500 NS Inj 500 ML @ Wide Open IV. 500 / 500 SIG BOLUS ONE Rx#:[id number] Other: Date of Last Bowel Movement 04/11/18 Physical Exam: resting comfortably; warm leg to ankle motor intact Laboratory Results - last 24 hr 04/11/18 04/11/18 04/11/18 11:30 11:30 11:30 WBC 13.2 H RBC 2.18 L Hgb 6.7 L* Hct 20.8 L* MCV 95.1 MCH 30.7 MCHC 32.3 RDW 15.7 Plt Count 533 H MPV 6.4 L Prelim Diff (Auto) Slide review pending Neut % (Auto) 76.6 H Lymph % (Auto) 9.7 [place] % (Auto) 10.5 H Eos % (Auto) 2.3 Baso % (Auto) 0.9 Neut # (Auto) 10.1 H Lymph # (Auto) 1.3 [place] # (Auto) 1.4 H Eos # (Auto) 0.3 Baso # (Auto) 0.1 WBC Differential Manual diff final Seg Neuts % (Manual) 54 Band Neuts % (Manual) 21 H Lymphocytes % (Manual) 15 Monocytes % (Manual) 9 H Myelocytes % (Man) 1 H Abs Neuts (Manual) 10.0 H Differential Comment . Toxic Granulation 1+ H Platelet Estimate High H Platelet Morphology Normal ESR PT 11.6 INR 1.1 APTT 27.3 Sodium 130 L Potassium 3.7 Chloride 97 L Carbon Dioxide 24.6 Anion Gap 8 BUN 17 Creatinine 0.62 Estimated GFR Greater than 89 POC Glucose Random Glucose 150 H Lactic Acid Calcium 8.1 L Magnesium 1.8 Total Bilirubin 0.2 AST 19 ALT 21 Alkaline Phosphatase 104 Troponin I Less than 0.02 L Total Protein 7.4 Albumin 2.4 L Lipase 63 L Urine Color Urine Clarity Urine pH Ur Specific [place] Urine Protein Urine Glucose (UA) Urine Ketones Urine Occult Blood Urine Nitrate Urine Bilirubin Urine Urobilinogen Ur Leukocyte Esterase Hyaline Casts Urine Mucus Micro UA Comment Ur Microscopic Review Urine Culture Comments MTS Gel Crossmatch 04/11/18 04/11/18 04/11/18 11:30 12:20 12:33 WBC RBC Hgb Hct MCV MCH MCHC RDW Plt Count MPV Prelim Diff (Auto) Neut % (Auto) Lymph % (Auto) [place] % (Auto) Eos % (Auto) Baso % (Auto) Neut # (Auto) Lymph # (Auto) [place] # (Auto) Eos # (Auto) Baso # (Auto) WBC Differential Seg Neuts % (Manual) Band Neuts % (Manual) Lymphocytes % (Manual) Monocytes % (Manual) Myelocytes % (Man) Abs Neuts (Manual) Differential Comment Toxic Granulation Platelet Estimate Platelet Morphology ESR Greater than 140 H PT INR APTT Sodium Potassium Chloride Carbon Dioxide Anion Gap BUN Creatinine Estimated GFR POC Glucose Random Glucose Lactic Acid Calcium Magnesium Total Bilirubin AST ALT Alkaline Phosphatase Troponin I Total Protein Albumin Lipase Urine Color Yellow Urine Clarity Clear Urine pH 6.0 Ur Specific [place] 1.016 Urine Protein Negative Urine Glucose (UA) Negative Urine Ketones Negative Urine Occult Blood Negative Urine Nitrate Negative Urine Bilirubin Negative Urine Urobilinogen 4 or greater Ur Leukocyte Esterase Negative Hyaline Casts 1 Urine Mucus Few H Micro UA Comment Cath-culture not ind Ur Microscopic Review Not Reportable Urine Culture Comments Cath-cult not ind MTS Gel Crossmatch See Detail 04/11/18 04/11/18 13:10 16:40 WBC RBC Hgb Hct MCV MCH MCHC RDW Plt Count MPV Prelim Diff (Auto) Neut % (Auto) Lymph % (Auto) [place] % (Auto) Eos % (Auto) Baso % (Auto) Neut # (Auto) Lymph # (Auto) [place] # (Auto) Eos # (Auto) Baso # (Auto) WBC Differential Seg Neuts % (Manual) Band Neuts % (Manual) Lymphocytes % (Manual) Monocytes % (Manual) Myelocytes % (Man) Abs Neuts (Manual) Differential Comment Toxic Granulation Platelet Estimate Platelet Morphology ESR PT INR APTT Sodium Potassium Chloride Carbon Dioxide Anion Gap BUN Creatinine Estimated GFR POC Glucose 155 H Random Glucose Lactic Acid 1.1 Calcium Magnesium Total Bilirubin AST ALT Alkaline Phosphatase Troponin I Total Protein Albumin Lipase Urine Color Urine Clarity Urine pH Ur Specific [place] Urine Protein Urine Glucose (UA) Urine Ketones Urine Occult Blood Urine Nitrate Urine Bilirubin Urine Urobilinogen Ur Leukocyte Esterase Hyaline Casts Urine Mucus Micro UA Comment Ur Microscopic Review Urine Culture Comments MTS Gel Crossmatch Impressions Abdomen/Pelvis CT 04/11/18 11:57 CONCLUSION: 1. There is marked destructive changes of the right proximal femur identified. The trochanteric nail hardware now extends beyond the femoral head cortex partially destroyed. There is also a patchy/permeative appearance of the shield tuberosity without obvious fracture. 2. Stool ball in the rectum and a large amount of stool throughout the colon. 3. Nonobstructing left renal calculi and left renal cyst. 4. Interval development of moderate left hydronephrosis and hydroureter without obvious obstructing stone. Head CT 04/11/18 11:59 CONCLUSION: 1. Stable appearance of the brain. . Assessment and Plan - Assessment (1) PAD (peripheral artery disease) Code(s): I73.9 - Peripheral vascular disease, unspecified Status: Chronic - Plan Pt here for GI work-up and getting endoscopy tomorrow. Will follow. Needs antiplatelet therapy for PAD.
[2018-04-11] MEDS: Gabapentin 300 MG Capsule PO SCH (18:13)
[2018-04-11] MEDS: dilTIAZem 30 MG Tablet PO SCH (18:13)
[2018-04-11] MEDS: Potassium Phos/Sodium Phos 250 MG Tablet PO SCH ×2 (18:13→21:36)
[2018-04-11] MEDS: Sodium Chloride 1 GM Tablet PO SCH (18:13)
[2018-04-11] MEDS: Insulin NovoLOG Aspart Correctional Sugar Inj SQ SCH ×2 (18:13→21:37)
[2018-04-11] MEDS: Magnesium Oxide 400 MG Tablet PO SCH ×2 (18:13→21:37)
[2018-04-11] MEDS: Ferrous Sulfate 325 MG Tablet PO SCH (18:13)
[2018-04-11] MEDS: Polyethylene Glycol 3350 17 GM Packet PO SCH (18:18)
[2018-04-11] MEDS: Ascorbic Acid 500 MG Tablet PO SCH (21:36)
[2018-04-11] MEDS: Pantoprazole Inj 40 MG Vial IV.PUSH SCH (21:38)
[2018-04-12] MEDS ORDERED: Sodium Chlor 0.9% Inj 500 ML IV.SIG SCH (03:00)
[2018-04-12 06:19] LABS: Hematocrit 24.6 % (39.0-51.0); Hemoglobin 8.6 gm/dL (13.0-17.0); Mean Corpuscular HGB Conc 34.8 % (32.0-36.0); Mean Corpuscular Hemoglobin 31.3 pg (27.0-34.0); Mean Platelet Volume 6.4 fL (7.0-11.0); Platelet Count 481 th/mm3 (150-450); Red Blood Count 2.74 mil/mm3 (4.50-5.90); Red Cell Distribution Width 15.6 % (11.6-17.2); White Blood Count 14.7 th/mm3 (4.0-11.0)
[2018-04-12] MEDS: Levothyroxine 125 MCG Tablet PO SCH (06:22)
[2018-04-12 06:44] LABS: Anion Gap 8 meq/L (5-15); Blood Urea Nitrogen 14 mg/dL (7-18); Calcium 7.8 mg/dL (8.5-10.1); Chloride 100 meq/L (98-107); Glomerular Filtration Rate Greater Than 89 mL/min (>89); Potassium 3.9 meq/L (3.5-5.1); Sodium 133 meq/L (136-145)
[2018-04-12 06:48] LABS: Glucose,Random 40 mg/dL (74-106)
[2018-04-12] MEDS: Dextrose 50% in Water 50 ML Vial IV.PUSH PRN (06:49)
[2018-04-12] MEDS: Insulin NovoLOG Aspart Correctional Sugar Inj SQ SCH ×4 (09:11→22:24)
[2018-04-12] MEDS: Amiodarone 200 MG Tablet PO SCH (09:11)
[2018-04-12] MEDS: dilTIAZem 30 MG Tablet PO SCH ×3 (09:11→18:50)
--- NOTE | 2018-04-12 09:38 | P.PNVS ---
Subjective Subjective/Hospital Course: Pt getting set for endoscopy this morning R heel wound still painful for him but no foot pain Objective Vital Signs / I&O: Vital Signs 04/11/18 11:15 04/11/18 12:16 04/11/18 14:22 Temperature 98.1 F Pulse Rate 65 62 68 Respiratory Rate 18 Blood Pressure 113/54 L 125/83 Pulse Oximetry 100 97 99 04/11/18 16:00 04/11/18 18:00 04/11/18 20:00 Temperature 98.0 F 98.2 F Pulse Rate 67 66 67 Respiratory Rate 16 20 Blood Pressure 113/83 122/54 L Pulse Oximetry 98 96 04/11/18 20:55 04/11/18 21:10 04/12/18 00:00 Temperature 98.0 F 98.0 F 98.6 F Pulse Rate 66 97 H 72 Respiratory Rate 19 18 16 Blood Pressure 103/55 L 109/55 L 109/59 L Pulse Oximetry 96 95 94 L 04/12/18 00:42 04/12/18 00:58 04/12/18 04:00 Temperature 98.6 F 98.8 F 98.8 F Pulse Rate 72 70 71 Respiratory Rate 16 17 17 Blood Pressure 109/59 L 111/52 L 124/56 L Pulse Oximetry 94 L 95 97 04/12/18 08:00 Temperature 99.0 F Pulse Rate 74 Respiratory Rate 17 Blood Pressure 126/60 Pulse Oximetry 96 Intake & Output 04/11/18 04/12/18 04/12/18 18:59 06:59 18:59 Intake Total 550 / 550 1300 / 1300 Balance 550 / 550 1300 / 1300 Weight 58.967 kg 58.9 kg Intake: IV 550 / 550 250 / 250 Zosyn 3.375 GM Premix 50 ML @ 50 / 50 100 mls/hr IV.SIG ONCE ONE Rx#: [id number] NS Inj 500 ML @ Wide Open IV. 500 / 500 SIG BOLUS ONE Rx#:[id number] Vancomycin Inj 1,000 MG In NS 250 / 250 Inj 250 ML @ 250 mls/hr IV.SIG ONCE ONE Rx#:[id number] Oral 250 / 250 Intake (Blood Product) Amt 800 / 800 Rbc As-3 Leukoreduced Unit 400 / 400 [id number] Rbc As-3 Leukoreduced Unit 400 / 400 [id number] Other: # Voids 600 Date of Last Bowel Movement 04/11/18 # Bowel Movements 2 Physical Exam: R foot warmer, motor intact R heel wound stable Laboratory Results - last 24 hr 04/11/18 04/11/18 04/11/18 11:30 11:30 11:30 WBC 13.2 H RBC 2.18 L Hgb 6.7 L* Hct 20.8 L* MCV 95.1 MCH 30.7 MCHC 32.3 RDW 15.7 Plt Count 533 H MPV 6.4 L Prelim Diff (Auto) Slide review pending Neut % (Auto) 76.6 H Lymph % (Auto) 9.7 [place] % (Auto) 10.5 H Eos % (Auto) 2.3 Baso % (Auto) 0.9 Neut # (Auto) 10.1 H Lymph # (Auto) 1.3 [place] # (Auto) 1.4 H Eos # (Auto) 0.3 Baso # (Auto) 0.1 WBC Differential Manual diff final Seg Neuts % (Manual) 54 Band Neuts % (Manual) 21 H Lymphocytes % (Manual) 15 Monocytes % (Manual) 9 H Myelocytes % (Man) 1 H Abs Neuts (Manual) 10.0 H Differential Comment . Toxic Granulation 1+ H Platelet Estimate High H Platelet Morphology Normal Smear Path Review ESR PT 11.6 INR 1.1 APTT 27.3 Sodium 130 L Potassium 3.7 Chloride 97 L Carbon Dioxide 24.6 Anion Gap 8 BUN 17 Creatinine 0.62 Estimated GFR Greater than 89 POC Glucose Random Glucose 150 H Lactic Acid Calcium 8.1 L Magnesium 1.8 Total Bilirubin 0.2 AST 19 ALT 21 Alkaline Phosphatase 104 Troponin I Less than 0.02 L Total Protein 7.4 Albumin 2.4 L Lipase 63 L Urine Color Urine Clarity Urine pH Ur Specific [place] Urine Protein Urine Glucose (UA) Urine Ketones Urine Occult Blood Urine Nitrate Urine Bilirubin Urine Urobilinogen Ur Leukocyte Esterase Hyaline Casts Urine Mucus Micro UA Comment Ur Microscopic Review Urine Culture Comments MTS Gel Crossmatch 04/11/18 04/11/18 04/11/18 11:30 12:20 12:33 WBC RBC Hgb Hct MCV MCH MCHC RDW Plt Count MPV Prelim Diff (Auto) Neut % (Auto) Lymph % (Auto) [place] % (Auto) Eos % (Auto) Baso % (Auto) Neut # (Auto) Lymph # (Auto) [place] # (Auto) Eos # (Auto) Baso # (Auto) WBC Differential Seg Neuts % (Manual) Band Neuts % (Manual) Lymphocytes % (Manual) Monocytes % (Manual) Myelocytes % (Man) Abs Neuts (Manual) Differential Comment Toxic Granulation Platelet Estimate Platelet Morphology Smear Path Review ESR Greater than 140 H PT INR APTT Sodium Potassium Chloride Carbon Dioxide Anion Gap BUN Creatinine Estimated GFR POC Glucose Random Glucose Lactic Acid Calcium Magnesium Total Bilirubin AST ALT Alkaline Phosphatase Troponin I Total Protein Albumin Lipase Urine Color Yellow Urine Clarity Clear Urine pH 6.0 Ur Specific [place] 1.016 Urine Protein Negative Urine Glucose (UA) Negative Urine Ketones Negative Urine Occult Blood Negative Urine Nitrate Negative Urine Bilirubin Negative Urine Urobilinogen 4 or greater Ur Leukocyte Esterase Negative Hyaline Casts 1 Urine Mucus Few H Micro UA Comment Cath-culture not ind Ur Microscopic Review Not Reportable Urine Culture Comments Cath-cult not ind MTS Gel Crossmatch See Detail 04/11/18 04/11/18 04/11/18 13:10 16:40 20:47 WBC RBC Hgb Hct MCV MCH MCHC RDW Plt Count MPV Prelim Diff (Auto) Neut % (Auto) Lymph % (Auto) [place] % (Auto) Eos % (Auto) Baso % (Auto) Neut # (Auto) Lymph # (Auto) [place] # (Auto) Eos # (Auto) Baso # (Auto) WBC Differential Seg Neuts % (Manual) Band Neuts % (Manual) Lymphocytes % (Manual) Monocytes % (Manual) Myelocytes % (Man) Abs Neuts (Manual) Differential Comment Toxic Granulation Platelet Estimate Platelet Morphology Smear Path Review ESR PT INR APTT Sodium Potassium Chloride Carbon Dioxide Anion Gap BUN Creatinine Estimated GFR POC Glucose 155 H 64 L Random Glucose Lactic Acid 1.1 Calcium Magnesium Total Bilirubin AST ALT Alkaline Phosphatase Troponin I Total Protein Albumin Lipase Urine Color Urine Clarity Urine pH Ur Specific [place] Urine Protein Urine Glucose (UA) Urine Ketones Urine Occult Blood Urine Nitrate Urine Bilirubin Urine Urobilinogen Ur Leukocyte Esterase Hyaline Casts Urine Mucus Micro UA Comment Ur Microscopic Review Urine Culture Comments MTS Gel Crossmatch 04/11/18 04/12/18 04/12/18 21:13 04:45 04:45 WBC 14.7 H RBC 2.74 L Hgb 8.6 L Hct 24.6 L MCV 90.0 D MCH 31.3 MCHC 34.8 RDW 15.6 Plt Count 481 H MPV 6.4 L Prelim Diff (Auto) Neut % (Auto) Lymph % (Auto) [place] % (Auto) Eos % (Auto) Baso % (Auto) Neut # (Auto) Lymph # (Auto) [place] # (Auto) Eos # (Auto) Baso # (Auto) WBC Differential Seg Neuts % (Manual) Band Neuts % (Manual) Lymphocytes % (Manual) Monocytes % (Manual) Myelocytes % (Man) Abs Neuts (Manual) Differential Comment Toxic Granulation Platelet Estimate Platelet Morphology Smear Path Review ESR PT INR APTT Sodium 133 L Potassium 3.9 Chloride 100 Carbon Dioxide 25.0 Anion Gap 8 BUN 14 Creatinine 0.56 L Estimated GFR Greater than 89 POC Glucose 90 Random Glucose 40 L* D Lactic Acid Calcium 7.8 L Magnesium Total Bilirubin AST ALT Alkaline Phosphatase Troponin I Total Protein Albumin Lipase Urine Color Urine Clarity Urine pH Ur Specific [place] Urine Protein Urine Glucose (UA) Urine Ketones Urine Occult Blood Urine Nitrate Urine Bilirubin Urine Urobilinogen Ur Leukocyte Esterase Hyaline Casts Urine Mucus Micro UA Comment Ur Microscopic Review Urine Culture Comments MTS Gel Crossmatch 04/12/18 04/12/18 04/12/18 04:45 06:55 07:06 WBC RBC Hgb Hct MCV MCH MCHC RDW Plt Count MPV Prelim Diff (Auto) Neut % (Auto) Lymph % (Auto) [place] % (Auto) Eos % (Auto) Baso % (Auto) Neut # (Auto) Lymph # (Auto) [place] # (Auto) Eos # (Auto) Baso # (Auto) WBC Differential Seg Neuts % (Manual) Band Neuts % (Manual) Lymphocytes % (Manual) Monocytes % (Manual) Myelocytes % (Man) Abs Neuts (Manual) Differential Comment Toxic Granulation Platelet Estimate Platelet Morphology Smear Path Review ESR PT INR APTT Sodium Potassium Chloride Carbon Dioxide Anion Gap BUN Creatinine Estimated GFR POC Glucose 256 H 188 H Random Glucose Lactic Acid Calcium Magnesium Total Bilirubin AST ALT Alkaline Phosphatase Troponin I Total Protein Albumin Lipase Urine Color Urine Clarity Urine pH Ur Specific [place] Urine Protein Urine Glucose (UA) Urine Ketones Urine Occult Blood Urine Nitrate Urine Bilirubin Urine Urobilinogen Ur Leukocyte Esterase Hyaline Casts Urine Mucus Micro UA Comment Ur Microscopic Review Urine Culture Comments MTS Gel Crossmatch 04/12/18 08:23 WBC RBC Hgb Hct MCV MCH MCHC RDW Plt Count MPV Prelim Diff (Auto) Neut % (Auto) Lymph % (Auto) [place] % (Auto) Eos % (Auto) Baso % (Auto) Neut # (Auto) Lymph # (Auto) [place] # (Auto) Eos # (Auto) Baso # (Auto) WBC Differential Seg Neuts % (Manual) Band Neuts % (Manual) Lymphocytes % (Manual) Monocytes % (Manual) Myelocytes % (Man) Abs Neuts (Manual) Differential Comment Toxic Granulation Platelet Estimate Platelet Morphology Smear Path Review ESR PT INR APTT Sodium Potassium Chloride Carbon Dioxide Anion Gap BUN Creatinine Estimated GFR POC Glucose 114 H Random Glucose Lactic Acid Calcium Magnesium Total Bilirubin AST ALT Alkaline Phosphatase Troponin I Total Protein Albumin Lipase Urine Color Urine Clarity Urine pH Ur Specific [place] Urine Protein Urine Glucose (UA) Urine Ketones Urine Occult Blood Urine Nitrate Urine Bilirubin Urine Urobilinogen Ur Leukocyte Esterase Hyaline Casts Urine Mucus Micro UA Comment Ur Microscopic Review Urine Culture Comments MTS Gel Crossmatch Microbiology 04/11/18 12:00 Gram Stain - Final Wound - Thigh Impressions Abdomen/Pelvis CT 04/11/18 11:57 CONCLUSION: 1. There is marked destructive changes of the right proximal femur identified. The trochanteric nail hardware now extends beyond the femoral head cortex partially destroyed. There is also a patchy/permeative appearance of the shield tuberosity without obvious fracture. 2. Stool ball in the rectum and a large amount of stool throughout the colon. 3. Nonobstructing left renal calculi and left renal cyst. 4. Interval development of moderate left hydronephrosis and hydroureter without obvious obstructing stone. Head CT 04/11/18 11:59 CONCLUSION: 1. Stable appearance of the brain. . Assessment and Plan - Assessment (1) PAD (peripheral artery disease) Code(s): I73.9 - Peripheral vascular disease, unspecified Status: Chronic - Plan Pt here for GI work-up and getting endoscopy this morning rec wound care consult Needs antiplatelet therapy for PAD. can f/u as outpatient for vascular surgery
[2018-04-12] MEDS ORDERED: Lidocaine PF 1% Inj 5 ML Syringe OTHER ONE (10:24)
[2018-04-12] MEDS ORDERED: Phenylephrine/NS 1000 MCG/10ML Syringe IV.PUSH ONE (10:24)
--- NOTE | 2018-04-12 10:54 | GIPROC ---
[facility] [address] [facility]. [facility], [address] EGD PROCEDURE REPORT EXAM DATE: 04/12/2018 PATIENT NAME: Rufus Escobedo MR #: [id number] BIRTHDATE: 1930 ATTENDING: Rickey Swain MD ORDER #: [id number] TREE INSPECTOR: Chase Stiles and Alexia Gaytan STATUS: inpatient INDICATIONS: The patient is a 87 yr old male here for an EGD due to melena PROCEDURE PERFORMED: EGD, diagnostic MEDICATIONS: None and Per Anesthesia. TOPICAL ANESTHETIC: none CONSENT: The patient understands the risks and benefits of the procedure and understands that these risks include, but are not limited to: sedation, allergic reaction, infection, perforation and/or bleeding. Alternative means of evaluation and treatment include, among others: physical exam, x-rays, and/or surgical intervention. The patient elects to proceed with this endoscopic procedure. medical equipment was checked for proper function. Hand hygiene and appropriate measures for infection prevention was taken. After the risks, benefits and alternatives of the procedure were thoroughly explained, Informed consent was verified, confirmed and timeout was successfully executed by the treatment team. The patient was anesthetized with topical anesthesia and the Pentax EG-[id number] endoscope was introduced through the mouth and advanced to the second portion of the duodenum. Retroflexed views revealed no abnormalities The gastroscope was then slowly withdrawn and removed. ESOPHAGUS: The mucosa of the esophagus appeared normal. STOMACH: There was mild gastritis in the gastric fundus, gastric body, and gastric antrum. No activebleeding or SRH seen. DUODENUM: Mild deformity was found in the duodenal bulb. The duodenal mucosa appeared normal in the 2nd part of the duodenum and 3rd part duodenum. ADVERSE EVENTS: There were no complications. IMPRESSIONS: 1. The esophagus appeared normal 2. There was mild gastritis in the gastric fundus, gastric body, and gastric antrum 3. Deformity was found in the duodenal bulb 4. Normal duodenal mucosa in the 2nd part of the duodenum and 3rd part duodenum 5. Retroflexed views revealed no abnormalities RECOMMENDATIONS: 1. Colonoscopy 2. PILLCAM PATIENT CONDITION: stable DISPOSITION: Inpatient REPEAT EXAM: Return as needed for EGD Rickey Swain MD eSigned: Rickey Swain MD 04/12/2018 10:54 AM cc: PATIENT NAME: Rufus Escobedo MR#: [id number]
[2018-04-12] MEDS: Ferrous Sulfate 325 MG Tablet PO SCH ×3 (11:11→18:51)
[2018-04-12] MEDS: Magnesium Oxide 400 MG Tablet PO SCH ×4 (11:12→20:54)
[2018-04-12] MEDS: Gabapentin 300 MG Capsule PO SCH ×3 (11:12→18:49)
[2018-04-12] MEDS: Potassium Phos/Sodium Phos 250 MG Tablet PO SCH ×4 (11:12→20:54)
[2018-04-12] MEDS: Polyethylene Glycol 3350 17 GM Packet PO SCH (11:12)
[2018-04-12] MEDS: Sodium Chloride 1 GM Tablet PO SCH ×3 (11:15→18:54)
[2018-04-12] MEDS: Ascorbic Acid 500 MG Tablet PO SCH ×2 (11:15→20:54)
[2018-04-12] MEDS: Pantoprazole Inj 40 MG Vial IV.PUSH SCH ×2 (11:15→20:53)
[2018-04-12] MEDS ORDERED: Vancomycin Consult Pharmacy OTHER PRN (11:57)
[2018-04-12] MEDS: Morphine Inj 4 MG/ML Vial IV.PUSH PRN (12:24)
[2018-04-12] MEDS ORDERED: Vancomycin Inj 1,000 MG in Sodium Chlor 0.9% Inj 250 ML IV.SIG SCH (13:00)
--- NOTE | 2018-04-12 14:17 | P.PNFP ---
Subjective Interval history: Patient was seen at bedside this morning. Overnight patient was transfused 2 units of packed red blood cells without issue. Patient went for endoscopy before patient was evaluated this morning patient had no recollection that he ever left for his endoscopy. He did not remember leaving nor coming from the endoscopy. Patient was also asking about a surgery that we had not discussed previously. Patient was alert and oriented to himself but did not have clear insight into his disease process. Patient continues to have pain at the bottom of his feet but denies pain anywhere else. Discussion was had with the patient about the need for colonoscopy which patient agreed was necessary. Patient had no further questions. Patient denies any subjective fevers, chills, shortness of breath, chest pain, nausea, or vomiting. <Geoff Frost - 04/12/18 14:16> Results - Labs Result diagrams: 04/13/18 06:39 04/13/18 05:10 <Stephane Sanderson - 04/13/18 18:38> Abnormal lab results 04/12/18 04/13/18 04/13/18 Range/Units 20:56 05:10 06:39 WBC 12.9 H (4.0-11.0) th/mm3 RBC 2.70 L (4.50-5.90) mil/mm3 Hgb 8.4 L (13.0-17.0) gm/dL Hct 24.8 L (39.0-51.0) % Plt Count 463 H (150-450) th/mm3 MPV 6.0 L (7.0-11.0) fL Neut % (Auto) 77.4 H (16.0-70.0) % [place] % (Auto) 9.1 H (0.0-8.0) % Neut # (Auto) 10.0 H (1.8-7.7) th/mm3 [place] # (Auto) 1.2 H (0.0-0.9) th/mm3 Sodium 130 L (136-145) meq/L Creatinine 0.52 L (0.60-1.30) mg/dL POC Glucose 161 H (68-110) mg/dl Calcium 7.2 L* (8.5-10.1) mg/dL Prot Corrected Calcium 7.5 L (8.5-10.1) mg/dL Albumin 2.0 L (3.4-5.0) g/dL 04/13/18 04/13/18 04/13/18 Range/Units 07:41 12:48 12:50 WBC (4.0-11.0) th/mm3 RBC (4.50-5.90) mil/mm3 Hgb (13.0-17.0) gm/dL Hct (39.0-51.0) % Plt Count (150-450) th/mm3 MPV (7.0-11.0) fL Neut % (Auto) (16.0-70.0) % [place] % (Auto) (0.0-8.0) % Neut # (Auto) (1.8-7.7) th/mm3 [place] # (Auto) (0.0-0.9) th/mm3 Sodium (136-145) meq/L Creatinine (0.60-1.30) mg/dL POC Glucose 112 H 318 H 332 H (68-110) mg/dl Calcium (8.5-10.1) mg/dL Prot Corrected Calcium (8.5-10.1) mg/dL Albumin (3.4-5.0) g/dL 04/13/18 Range/Units 16:24 WBC (4.0-11.0) th/mm3 RBC (4.50-5.90) mil/mm3 Hgb (13.0-17.0) gm/dL Hct (39.0-51.0) % Plt Count (150-450) th/mm3 MPV (7.0-11.0) fL Neut % (Auto) (16.0-70.0) % [place] % (Auto) (0.0-8.0) % Neut # (Auto) (1.8-7.7) th/mm3 [place] # (Auto) (0.0-0.9) th/mm3 Sodium (136-145) meq/L Creatinine (0.60-1.30) mg/dL POC Glucose 160 H (68-110) mg/dl Calcium (8.5-10.1) mg/dL Prot Corrected Calcium (8.5-10.1) mg/dL Albumin (3.4-5.0) g/dL Short CBC 04/13/18 Range/Units 06:39 WBC 12.9 H (4.0-11.0) th/mm3 Hgb 8.4 L (13.0-17.0) gm/dL Hct 24.8 L (39.0-51.0) % Plt Count 463 H (150-450) th/mm3 BMP 04/13/18 05:10 Sodium 130 L Potassium 4.0 Chloride 98 Carbon Dioxide 23.5 BUN 12 Creatinine 0.52 L Calcium 7.2 L* Liver Function 04/13/18 Range/Units 05:10 Total Bilirubin 0.4 (0.2-1.0) mg/dL AST 20 (15-37) U/L ALT 18 (12-78) U/L Alkaline Phosphatase 90 (45-117) U/L Albumin 2.0 L (3.4-5.0) g/dL <Stephane Sanderson - 04/13/18 18:38> Abnormal lab results 04/11/18 04/11/18 04/11/18 Range/Units 11:30 12:33 16:40 WBC (4.0-11.0) th/mm3 RBC (4.50-5.90) mil/mm3 Hgb (13.0-17.0) gm/dL Hct (39.0-51.0) % Plt Count (150-450) th/mm3 MPV (7.0-11.0) fL ESR Greater than 140 H (0-20) mm/hr Sodium (136-145) meq/L Creatinine (0.60-1.30) mg/dL POC Glucose 155 H (68-110) mg/dl Random Glucose (74-106) mg/dL Calcium (8.5-10.1) mg/dL MTS Gel Crossmatch See Detail 04/11/18 04/12/18 04/12/18 Range/Units 20:47 04:45 04:45 WBC 14.7 H (4.0-11.0) th/mm3 RBC 2.74 L (4.50-5.90) mil/mm3 Hgb 8.6 L (13.0-17.0) gm/dL Hct 24.6 L (39.0-51.0) % Plt Count 481 H (150-450) th/mm3 MPV 6.4 L (7.0-11.0) fL ESR (0-20) mm/hr Sodium 133 L (136-145) meq/L Creatinine 0.56 L (0.60-1.30) mg/dL POC Glucose 64 L (68-110) mg/dl Random Glucose 40 L* D (74-106) mg/dL Calcium 7.8 L (8.5-10.1) mg/dL MTS Gel Crossmatch 04/12/18 04/12/18 04/12/18 Range/Units 06:55 07:06 08:23 WBC (4.0-11.0) th/mm3 RBC (4.50-5.90) mil/mm3 Hgb (13.0-17.0) gm/dL Hct (39.0-51.0) % Plt Count (150-450) th/mm3 MPV (7.0-11.0) fL ESR (0-20) mm/hr Sodium (136-145) meq/L Creatinine (0.60-1.30) mg/dL POC Glucose 256 H 188 H 114 H (68-110) mg/dl Random Glucose (74-106) mg/dL Calcium (8.5-10.1) mg/dL MTS Gel Crossmatch Short CBC 04/12/18 Range/Units 04:45 WBC 14.7 H (4.0-11.0) th/mm3 Hgb 8.6 L (13.0-17.0) gm/dL Hct 24.6 L (39.0-51.0) % Plt Count 481 H (150-450) th/mm3 BMP 04/12/18 04:45 Sodium 133 L Potassium 3.9 Chloride 100 Carbon Dioxide 25.0 BUN 14 Creatinine 0.56 L Calcium 7.8 L <Geoff Frost O - 04/12/18 14:16> Physical Exam Vital signs: Vital Signs 04/12/18 20:00 04/12/18 22:26 04/13/18 00:00 Temperature 98 F 97.4 F L Pulse Rate 69 63 Respiratory Rate 18 20 18 Blood Pressure 126/58 L 117/59 L Pulse Oximetry 98 98 04/13/18 04:00 04/13/18 08:00 04/13/18 12:00 Temperature 98.1 F 98.1 F 98.1 F Pulse Rate 64 68 70 Respiratory Rate 18 17 17 Blood Pressure 110/53 L 132/60 114/55 L Pulse Oximetry 97 97 97 04/13/18 16:00 Temperature 97.6 F Pulse Rate 66 Respiratory Rate 17 Blood Pressure 115/55 L Pulse Oximetry 98 Intake & Output 04/12/18 04/13/18 04/13/18 18:59 06:59 18:59 Intake Total 440 / 440 250 / 250 1150 / 1150 Output Total 350 / 350 400 / 400 Balance 440 / 440 -100 / -100 750 / 750 Weight 58.5 kg Intake: IV 250 / 250 Vancomycin Inj 1,000 MG In NS 250 / 250 Inj 250 ML @ 250 mls/hr IV.SIG Q12H [facility] [place] Rx#:[id number] Oral 240 / 240 900 / 900 Anesthesia Amount 200 / 200 Other 250 / 250 Output: Urine 400 / 400 Urine Amount (Catheter) 350 / 350 Condom 350 / 350 Other: # Voids 1 Date of Last Bowel Movement 04/12/18 04/13/18 # Bowel Movements 2 3 # Incontinent Bowel Movements 3 <Stephane Sanderson - 04/13/18 18:38> Vital Signs 04/11/18 14:22 04/11/18 16:00 04/11/18 18:00 Temperature 98.0 F Pulse Rate 68 67 66 Respiratory Rate 18 16 Blood Pressure 125/83 113/83 Pulse Oximetry 99 98 04/11/18 20:00 04/11/18 20:55 04/11/18 21:10 Temperature 98.2 F 98.0 F 98.0 F Pulse Rate 67 66 97 H Respiratory Rate 20 19 18 Blood Pressure 122/54 L 103/55 L 109/55 L Pulse Oximetry 96 96 95 04/12/18 00:00 04/12/18 00:42 04/12/18 00:58 Temperature 98.6 F 98.6 F 98.8 F Pulse Rate 72 72 70 Respiratory Rate 16 16 17 Blood Pressure 109/59 L 109/59 L 111/52 L Pulse Oximetry 94 L 94 L 95 04/12/18 04:00 04/12/18 08:00 04/12/18 12:00 Temperature 98.8 F 99.0 F 98.4 F Pulse Rate 71 74 70 Respiratory Rate 17 17 17 Blood Pressure 124/56 L 126/60 117/55 L Pulse Oximetry 97 96 96 Intake & Output 04/11/18 04/12/18 04/12/18 18:59 06:59 18:59 Intake Total 550 / 550 1300 / 1300 200 / 200 Balance 550 / 550 1300 / 1300 200 / 200 Weight 58.967 kg 58.9 kg Intake: IV 550 / 550 250 / 250 Zosyn 3.375 GM Premix 50 ML @ 50 / 50 100 mls/hr IV.SIG ONCE ONE Rx#: [id number] NS Inj 500 ML @ Wide Open IV. 500 / 500 SIG BOLUS ONE Rx#:[id number] Vancomycin Inj 1,000 MG In NS 250 / 250 Inj 250 ML @ 250 mls/hr IV.SIG ONCE ONE Rx#:[id number] Oral 250 / 250 Anesthesia Amount 200 / 200 Intake (Blood Product) Amt 800 / 800 Rbc As-3 Leukoreduced Unit 400 / 400 [id number] Rbc As-3 Leukoreduced Unit 400 / 400 [id number] Other: # Voids 600 Date of Last Bowel Movement 04/11/18 # Bowel Movements 2 <Geoff Frost - 04/12/18 14:16> Narrative: General: Pleasant, frail-appearing elderly male in no acute distress. Patient had an adult diaper in place as well as a Hammer catheter at the time of interview. Skin: Patient refused assessment of chronic ulcers. Per ED note, patient has ulcers on the left posterior calf, left posterior ankle. Small draining wound to the right lateral thigh. HEENT. PERRLA EOMI Cardio: Regular rate and rhythm, no murmurs rubs or gallops Pulmonary: Clear to auscultation bilaterally, no wheezes or crackles Abdomen: Soft nontender nondistended positive bowel sounds no guarding or rebound MSK: Significant muscle atrophy in both lower extremities with covered bandage on right lateral hip as well as bandaged feet that the patient would not allow us to examine. Back: Nontender. No CVA tenderness. Psychiatric: Patient alert and oriented x3 but confused about a potential surgery that was never discussed with the patient by the primary care team. Patient also had no recollection of ever going to being brought back to the endoscopy suite. Overall patient reports that he understood the need for colonoscopy and was agreeable. <Geoff Frost - 04/12/18 14:16> - Urinary Catheter Management Indwelling Urethral Catheter Cath placed during this visit: no <Stephane Sanderson - 04/13/18 18:38> yes, but has since been removed by the nurse <Geoff Frost 04/12/18 14:16> Reason for continuing: Decision to DC catheter <Geoff Frost 04/12/18 14:16 > Insertion date: 04/11/18 <Geoff Frost 04/12/18 14:16> Insertion time: 21:08 <Geoff Frost 04/12/18 14:16> Removal date: 04/12/18 <Geoff Frost 04/12/18 14:16> Removal time: 11:35 <Geoff Frost 04/12/18 14:16> Straight Cath placed during this visit: no <Stephane Sanderson 04/13/18 18:38> yes <Geoff Frost 04/12/18 14:16> Reason for continuing: Other continuation reason <Geoff Frost 04/12/18 14: 16> Insertion date: 04/11/18 <Geoff Frost 04/12/18 14:16> Insertion time: 21:08 <Geoff Frost 04/12/18 14:16> Assessment and Plan - Assessment (1) MRSA (methicillin resistant staph aureus) culture positive Code(s): Z22.322 - Carrier or suspected carrier of Methicillin resistant Staphylococcus aureus Status: Acute (2) GI bleed Code(s): K92.2 - Gastrointestinal hemorrhage, unspecified Status: Acute (3) PAD (peripheral artery disease) Code(s): I73.9 - Peripheral vascular disease, unspecified Status: Chronic (4) Bandemia Code(s): D72.825 - Bandemia Status: Acute (5) Hydronephrosis Code(s): N13.30 - Unspecified hydronephrosis Status: Acute (6) HTN (hypertension) Code(s): I10 - Essential (primary) hypertension Status: Acute (7) Diabetes Code(s): E11.9 - Type 2 diabetes mellitus without complications Status: Acute (8) Chronic wound of extremity Status: Acute (9) Nutrition, metabolism, and development symptoms Code(s): R63.8 - Other symptoms and signs concerning food and fluid intake Status: Acute <Stephane Sanderson 04/13/18 18:38> (1) MRSA (methicillin resistant staph aureus) culture positive Code(s): Z22.322 - Carrier or suspected carrier of Methicillin resistant Staphylococcus aureus Status: Acute Plan: 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 Patient had wound from right thigh cultured which ultimately grew methicillin resistant staph coccus aureus. Patient now on contact precautions as well as vancomycin has begun. -Contact precautions -Trend white count -Monitor for fevers and signs of systemic illness -Continue vancomycin, pharmacy consultation for decision -Repeat blood cultures -Wound care consult ordered appreciate wound care recommendations (2) GI bleed Code(s): K92.2 - Gastrointestinal hemorrhage, unspecified Status: Acute Plan: 87-year-old male with history of hypertension, diabetes, chronic nonhealing wounds, PAD with recent right LE arterectomy presents to the ED via EVAC for severe anemia and melena. Patient had upper endoscopy this morning that revealed no obvious source of upper GI bleeding. Per gastroenterology patient will also need a colonoscopy to rule out any lower GI bleeding. Patient has status post 2 units of packed red blood cells within H/H of 8.6/24.6 this morning posttransfusion. -Status post 2 units of packed red blood cells transfused -Patient on liquid diet for possible colonoscopy -Protonix 40 mg twice daily IV -Colonoscopy recommended as well as a PillCam -Follow-up with GI recommendations -Follow-up with hemoglobin hematocrit (3) PAD (peripheral artery disease) Code(s): I73.9 - Peripheral vascular disease, unspecified Status: Chronic Plan: s/p recent right LE arterectomy. Per vascular surgery patient will need therapy for his peripheral arterial disease which will be commenced once source of bleeding is identified and treated. (4) Bandemia Code(s): D72.825 - Bandemia Status: Acute Plan: CBC demonstrates Bands of 21 on admission. This morning patient had a white count of 14.7 with now a confirmed MRSA infection of the thigh. Please see plan for MRSA infection. (5) Hydronephrosis Code(s): N13.30 - Unspecified hydronephrosis Status: Acute Plan: Abdominal pelvis CT demonstrates development of moderate left hydronephrosis and hydroureter without ureteral obstruction. Also demonstrates stool ball in the rectum large amount of stool throughout the colon. Patient had a bladder scan this morning the revealed of a residual volume of 231 mL. Patient currently voiding well and is graded 200 mL of fluid today. Patient has no CVA tenderness. - Continue to monitor I's and O's. - Patient may have urinary catheter removed. (6) HTN (hypertension) Code(s): I10 - Essential (primary) hypertension Status: Acute Plan: Continue Cardizem and amiodarone (7) Diabetes Code(s): E11.9 - Type 2 diabetes mellitus without complications Status: Acute Plan: Held home glipizide, Januvia Accu-Cheks Low-dose sliding scale Hypoglycemia protocol in place (8) Chronic wound of extremity Status: Acute Plan: Patient currently follows up with wound care as an outpatient Right hip wound, super observant dressing daily Skin tear lower left extremity, Santyl covered and dry dressing daily Right heel wound, apply gentamicin cream twice daily Wound care consulted, appreciate recommendations (9) Nutrition, metabolism, and development symptoms Code(s): R63.8 - Other symptoms and signs concerning food and fluid intake Status: Acute Plan: Fluids: P.o. hydration Diet: Liquid diet Vitals every 4, monitor I's and O's DVT prophylaxis: Contraindicated due to upper GI bleed <Geoff Frost - 04/12/18 13:52> - Attending Attestation The exam, history, and the medical decision-making described in the above note were completed with the assistance of the resident physician. I reviewed and agree with the findings presented. I attest that I had a [id number] encounter with the patient on the same day, and personally performed and documented my assessment and findings in the medical record. <Stephane Sanderson - 04/13/18 18:38> <Geoff Frost - Last Filed: 04/12/18 13:52> (2) GI bleed Qualifiers: GI bleed type/associated pathology: unspecified gastrointestinal hemorrhage type Qualified Code(s): K92.2 - Gastrointestinal hemorrhage, unspecified (5) Hydronephrosis Qualifiers: Hydronephrosis type: unspecified Qualified Code(s): N13.30 - Unspecified hydronephrosis <Stephane Sanderson - Last Filed: 04/13/18 18:38> (2) GI bleed Qualifiers: GI bleed type/associated pathology: unspecified gastrointestinal hemorrhage type Qualified Code(s): K92.2 - Gastrointestinal hemorrhage, unspecified (5) Hydronephrosis Qualifiers: Hydronephrosis type: unspecified Qualified Code(s): N13.30 - Unspecified hydronephrosis <Geoff Frost - Last Filed: 04/12/18 13:52> (2) GI bleed Qualifiers: GI bleed type/associated pathology: unspecified gastrointestinal hemorrhage type Qualified Code(s): K92.2 - Gastrointestinal hemorrhage, unspecified (5) Hydronephrosis Qualifiers: Hydronephrosis type: unspecified Qualified Code(s): N13.30 - Unspecified hydronephrosis <Stephane Sanderson - Last Filed: 04/13/18 18:38> (2) GI bleed Qualifiers: GI bleed type/associated pathology: unspecified gastrointestinal hemorrhage type Qualified Code(s): K92.2 - Gastrointestinal hemorrhage, unspecified (5) Hydronephrosis Qualifiers: Hydronephrosis type: unspecified Qualified Code(s): N13.30 - Unspecified hydronephrosis
[2018-04-12] MEDS: Gentamicin 0.1% Cream 15 GM Cream TOPICAL SCH ×2 (16:49→20:56)
[2018-04-12] MEDS: Collagenase Oint 30 GM Tube TOPICAL SCH (16:49)
[2018-04-12 17:21] LABS: Hemoglobin 8.8 gm/dL (13.0-17.0)
--- NOTE | 2018-04-13 00:47 | ECG ---
Date Performed: 04/11/2018 Time Performed: 13:11:26 PTAGE: 87 years EKG: Sinus rhythm WITH FIRST DEGREE AV BLOCK MARKED LEFT AXIS DEVIATION RIGHT BUNDLE BRANCH BLOCK ABNORMAL ECG PREVIOUS TRACING : 09/28/2017 14.18 DOCTOR: Andrea Landa Interpretating Date/Time 04/13/2018 00:46:21
[2018-04-13] MEDS: Levothyroxine 125 MCG Tablet PO SCH (05:09)
[2018-04-13 05:58] LABS: Alanine Aminotransferase 18 U/L (12-78); Alkaline Phosphatase 90 U/L (45-117); Anion Gap 9 meq/L (5-15); Aspartate Aminotransferase 20 U/L (15-37); Blood Urea Nitrogen 12 mg/dL (7-18); Calcium 7.2 mg/dL (8.5-10.1); Carbon Dioxide 23.5 meq/L (21.0-32.0); Chloride 98 meq/L (98-107); Glomerular Filtration Rate Greater Than 89 mL/min (>89); Glucose,Random 90 mg/dL (74-106); Sodium 130 meq/L (136-145); Total Protein 6.6 g/dL (6.4-8.2); Vancomycin,Trough 5.1 mcg/mL (5.0-10.0)
[2018-04-13] MEDS ORDERED: Pharmacy Ordered Lab Info OTHER ONE (06:00)
[2018-04-13] MEDS: Vancomycin Inj 1,000 MG in Sodium Chlor 0.9% Inj 250 ML IV.SIG SCH (06:40)
[2018-04-13 06:57] LABS: Baso # (Auto) 0.1 th/mm3 (0.0-0.2); Baso % (Auto) 0.9 % (0.0-2.0); Eos # (Auto) 0.3 th/mm3 (0.0-0.4); Eos % (Auto) 2.5 % (0.0-4.0); Hematocrit 24.8 % (39.0-51.0); Hemoglobin 8.4 gm/dL (13.0-17.0); Lymph # (Auto) 1.3 th/mm3 (1.0-4.8); Lymph % (Auto) 10.1 % (9.0-44.0); Mean Corpuscular HGB Conc 33.8 % (32.0-36.0); Mean Corpuscular Volume 91.7 fL (80.0-100.0); Mono # (Auto) 1.2 th/mm3 (0.0-0.9); Mono % (Auto) 9.1 % (0.0-8.0); Neut % (Auto) 77.4 % (16.0-70.0); Platelet Count 463 th/mm3 (150-450); Red Cell Distribution Width 15.9 % (11.6-17.2); White Blood Count 12.9 th/mm3 (4.0-11.0)
[2018-04-13] MEDS: Insulin NovoLOG Aspart Correctional Sugar Inj SQ SCH ×4 (08:00→22:33)
[2018-04-13] MEDS: Magnesium Oxide 400 MG Tablet PO SCH ×4 (08:38→22:02)
[2018-04-13] MEDS: Sodium Chloride 1 GM Tablet PO SCH ×3 (08:38→17:38)
[2018-04-13] MEDS: Potassium Phos/Sodium Phos 250 MG Tablet PO SCH ×4 (08:38→22:02)
[2018-04-13] MEDS: Ferrous Sulfate 325 MG Tablet PO SCH ×3 (08:38→17:38)
[2018-04-13] MEDS: dilTIAZem 30 MG Tablet PO SCH ×3 (08:38→17:38)
[2018-04-13] MEDS: Ascorbic Acid 500 MG Tablet PO SCH ×2 (08:39→22:03)
[2018-04-13] MEDS: Amiodarone 200 MG Tablet PO SCH (08:39)
[2018-04-13] MEDS: Gabapentin 300 MG Capsule PO SCH ×3 (08:39→17:38)
[2018-04-13] MEDS: Pantoprazole Inj 40 MG Vial IV.PUSH SCH ×2 (08:39→22:03)
[2018-04-13] MEDS: Polyethylene Glycol 3350 17 GM Packet PO SCH (08:40)
[2018-04-13] MEDS: Collagenase Oint 30 GM Tube TOPICAL SCH (08:40)
[2018-04-13] MEDS: Gentamicin 0.1% Cream 15 GM Cream TOPICAL SCH ×2 (08:40→22:08)
--- NOTE | 2018-04-13 09:51 | P.PNFP ---
Subjective Interval history: No acute events overnight Patient lying in bed, states that he has pain in his right heel Spoke with nurse, patient just received pain medication Patient states that he wants to go back to the intermediate Condom Catheter in place Unsure if patient will be receiving colonoscopy Denies fevers, CP, SOB, N/V, and abdominal pain Results - Labs Result diagrams: 04/13/18 06:39 04/13/18 05:10 Abnormal lab results 04/12/18 04/12/18 04/13/18 Range/Units 16:38 20:56 05:10 WBC (4.0-11.0) th/mm3 RBC (4.50-5.90) mil/mm3 Hgb 8.8 L (13.0-17.0) gm/dL Hct 26.0 L (39.0-51.0) % Plt Count (150-450) th/mm3 MPV (7.0-11.0) fL Neut % (Auto) (16.0-70.0) % [place] % (Auto) (0.0-8.0) % Neut # (Auto) (1.8-7.7) th/mm3 [place] # (Auto) (0.0-0.9) th/mm3 Sodium 130 L (136-145) meq/L Creatinine 0.52 L (0.60-1.30) mg/dL POC Glucose 161 H (68-110) mg/dl Calcium 7.2 L* (8.5-10.1) mg/dL Prot Corrected Calcium 7.5 L (8.5-10.1) mg/dL Albumin 2.0 L (3.4-5.0) g/dL 04/13/18 04/13/18 Range/Units 06:39 07:41 WBC 12.9 H (4.0-11.0) th/mm3 RBC 2.70 L (4.50-5.90) mil/mm3 Hgb 8.4 L (13.0-17.0) gm/dL Hct 24.8 L (39.0-51.0) % Plt Count 463 H (150-450) th/mm3 MPV 6.0 L (7.0-11.0) fL Neut % (Auto) 77.4 H (16.0-70.0) % [place] % (Auto) 9.1 H (0.0-8.0) % Neut # (Auto) 10.0 H (1.8-7.7) th/mm3 [place] # (Auto) 1.2 H (0.0-0.9) th/mm3 Sodium (136-145) meq/L Creatinine (0.60-1.30) mg/dL POC Glucose 112 H (68-110) mg/dl Calcium (8.5-10.1) mg/dL Prot Corrected Calcium (8.5-10.1) mg/dL Albumin (3.4-5.0) g/dL Short CBC 04/12/18 04/13/18 Range/Units 16:38 06:39 WBC 12.9 H (4.0-11.0) th/mm3 Hgb 8.8 L 8.4 L (13.0-17.0) gm/dL Hct 26.0 L 24.8 L (39.0-51.0) % Plt Count 463 H (150-450) th/mm3 BMP 04/13/18 05:10 Sodium 130 L Potassium 4.0 Chloride 98 Carbon Dioxide 23.5 BUN 12 Creatinine 0.52 L Calcium 7.2 L* Liver Function 04/13/18 Range/Units 05:10 Total Bilirubin 0.4 (0.2-1.0) mg/dL AST 20 (15-37) U/L ALT 18 (12-78) U/L Alkaline Phosphatase 90 (45-117) U/L Albumin 2.0 L (3.4-5.0) g/dL Physical Exam Vital signs: Vital Signs 04/12/18 12:00 04/12/18 16:00 04/12/18 18:01 Temperature 98.4 F 98.6 F Pulse Rate 70 71 Respiratory Rate 17 17 Blood Pressure 117/55 L 145/67 H Pulse Oximetry 96 97 97 04/12/18 20:00 04/12/18 22:26 04/13/18 00:00 Temperature 98 F 97.4 F L Pulse Rate 69 63 Respiratory Rate 18 20 18 Blood Pressure 126/58 L 117/59 L Pulse Oximetry 98 98 04/13/18 04:00 04/13/18 08:00 Temperature 98.1 F 98.1 F Pulse Rate 64 68 Respiratory Rate 18 17 Blood Pressure 110/53 L 132/60 Pulse Oximetry 97 97 Intake & Output 10/27/18 10/28/18 10/28/18 18:59 06:59 18:59 Intake Total 440 / 440 250 / 250 250 / 250 Output Total 350 / 350 Balance 440 / 440 -100 / -100 250 / 250 Weight 58.5 kg Intake: IV 250 / 250 Vancomycin Inj 1,000 MG In NS 250 / 250 Inj 250 ML @ 250 mls/hr IV.SIG Q12H [facility] Rx#:[id number] Oral 240 / 240 Anesthesia Amount 200 / 200 Other 250 / 250 Output: Urine Amount (Catheter) 350 / 350 Condom 350 / 350 Other: # Voids 1 Date of Last Bowel Movement 04/12/18 # Bowel Movements 2 # Incontinent Bowel Movements 3 Narrative: General: Pleasant, frail-appearing elderly male in no acute distress. Skin: Dressing of ulcers on the left posterior calf, left posterior ankle. Small draining wound to the right lateral thigh. Spoke to nurse, states that during dressing changes, wounds appear to improved from 2 days prior Cardio: Regular rate and rhythm, no murmurs rubs or gallops Pulmonary: Clear to auscultation bilaterally, no wheezes or crackles Abdomen: Soft nontender nondistended positive bowel sounds no guarding or rebound MSK: Significant muscle atrophy in both lower extremities with covered bandage on right lateral hip as well as bandaged feet Back: Nontender. No CVA tenderness. Psychiatric: Patient alert and oriented x3 : condom catheter in place - Urinary Catheter Management Straight Cath placed during this visit: yes Reason for continuing: Other continuation reason Insertion date: 04/11/18 Insertion time: 21:08 Indwelling Urethral Catheter Cath placed during this visit: yes, but has since been removed by the nurse Reason for continuing: Not indwelling catheter Insertion date: 04/11/18 Insertion time: 21:08 Removal date: 04/12/18 Removal time: 11:35 Condom Cath placed during this visit: no Reason for continuing: Not indwelling catheter Assessment and Plan - Assessment (1) MRSA (methicillin resistant staph aureus) culture positive Code(s): Z22.322 - Carrier or suspected carrier of Methicillin resistant Staphylococcus aureus Status: Acute Plan: 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 Patient had wound from right thigh cultured which ultimately grew methicillin resistant staph coccus aureus. Patient now on contact precautions as well as vancomycin has begun. -Contact precautions -WBC improved from yesterday -Monitor for fevers and signs of systemic illness -Continue vancomycin, pharmacy consultation for decision -Blood cultures no growth in 1 day -Wound care consult ordered appreciate wound care recommendations (2) GI bleed Code(s): K92.2 - Gastrointestinal hemorrhage, unspecified Status: Acute Plan: 87-year-old male with history of hypertension, diabetes, chronic nonhealing wounds, PAD with recent right LE arterectomy presents to the ED via [facility] for severe anemia and melena. Patient had upper endoscopy this morning that revealed no obvious source of upper GI bleeding. Per gastroenterology patient will also need a colonoscopy to rule out any lower GI bleeding. Patient has status post 2 units of packed red blood cells within H/H of 8.6/24.6 this morning posttransfusion. -Status post 2 units of packed red blood cells transfused on 04/11 -Protonix 40 mg twice daily IV -Colonoscopy recommended as well as a PillCam -Follow-up with GI recommendations -Follow-up with hemoglobin hematocrit (3) PAD (peripheral artery disease) Code(s): I73.9 - Peripheral vascular disease, unspecified Status: Chronic Plan: s/p recent right LE arterectomy. Per vascular surgery patient will need therapy for his peripheral arterial disease which will be commenced once source of bleeding is identified and treated. (4) Bandemia Code(s): D72.825 - Bandemia Status: Acute Plan: CBC demonstrates Bands of 21 on admission. This morning patient had a white count of 14.7 with now a confirmed MRSA infection of the thigh. Please see plan for MRSA infection. (5) Hydronephrosis Code(s): N13.30 - Unspecified hydronephrosis Status: Acute Plan: Abdominal pelvis CT demonstrates development of moderate left hydronephrosis and hydroureter without ureteral obstruction. Also demonstrates stool ball in the rectum large amount of stool throughout the colon. Patient had a bladder scan this morning the revealed of a residual volume of 231 mL. Patient currently voiding well and is graded 200 mL of fluid today. Patient has no CVA tenderness. - Continue to monitor I's and O's. (6) HTN (hypertension) Code(s): I10 - Essential (primary) hypertension Status: Acute Plan: Continue Cardizem and amiodarone (7) Diabetes Code(s): E11.9 - Type 2 diabetes mellitus without complications Status: Acute Plan: Held home glipizide, Januvia Accu-Cheks Low-dose sliding scale Hypoglycemia protocol in place (8) Chronic wound of extremity Status: Acute Plan: Patient currently follows up with wound care as an outpatient Right hip wound, super observant dressing daily Skin tear lower left extremity, Santyl covered and dry dressing daily Right heel wound, apply gentamicin cream twice daily Wound care consulted, appreciate recommendations (9) Nutrition, metabolism, and development symptoms Code(s): R63.8 - Other symptoms and signs concerning food and fluid intake Status: Acute Plan: Fluids: P.o. hydration Diet: Regular diet Vitals every 4, monitor I's and O's DVT prophylaxis: Contraindicated due to upper GI bleed (2) GI bleed Qualifiers: GI bleed type/associated pathology: unspecified gastrointestinal hemorrhage type Qualified Code(s): K92.2 - Gastrointestinal hemorrhage, unspecified (5) Hydronephrosis Qualifiers: Hydronephrosis type: unspecified Qualified Code(s): N13.30 - Unspecified hydronephrosis
[2018-04-13] MEDS ORDERED: Magnesium Citrate Liq 300 ML Bottle PO ONE ×3 (13:04→18:00)
--- NOTE | 2018-04-13 15:23 | P.PNGI ---
Subjective Interval history: Resting in the bed hard of status post EGD results, mild gastritis reviewed with patient no obvious bleeding seen EGD to be repeated as needed as needed current hemoglobin 8.4 decreased WBC count 12.9 Physical Exam Vital signs: Vital Signs 04/12/18 16:00 04/12/18 18:01 04/12/18 20:00 Temperature 98.6 F 98 F Pulse Rate 71 69 Respiratory Rate 17 18 Blood Pressure 145/67 H 126/58 L Pulse Oximetry 97 97 98 04/12/18 22:26 04/13/18 00:00 04/13/18 04:00 Temperature 97.4 F L 98.1 F Pulse Rate 63 64 Respiratory Rate 20 18 18 Blood Pressure 117/59 L 110/53 L Pulse Oximetry 98 97 04/13/18 08:00 04/13/18 12:00 Temperature 98.1 F 98.1 F Pulse Rate 68 70 Respiratory Rate 17 17 Blood Pressure 132/60 114/55 L Pulse Oximetry 97 97 Intake & Output 04/12/18 04/13/18 04/13/18 18:59 06:59 18:59 Intake Total 440 / 440 250 / 250 250 / 250 Output Total 350 / 350 Balance 440 / 440 -100 / -100 250 / 250 Weight 58.5 kg Intake: IV 250 / 250 Vancomycin Inj 1,000 MG In NS 250 / 250 Inj 250 ML @ 250 mls/hr IV.SIG Q12H [facility] Rx#:[id number] Oral 240 / 240 Anesthesia Amount 200 / 200 Other 250 / 250 Output: Urine Amount (Catheter) 350 / 350 Condom 350 / 350 Other: # Voids 1 Date of Last Bowel Movement 04/12/18 04/13/18 # Bowel Movements 2 # Incontinent Bowel Movements 3 - Constitutional mild distress, cachectic, disheveled, cooperative - Routine HEENT Exam Head: Present: normocephalic ENT: Present: mucous membranes dry (Pale) - Routine Respiratory Exam Present: accessory muscle use (Low volumes but no obvious wheezing or rhonchi) - Routine Abdominal Exam Present: soft (Round, soft bowel sounds no obvious abdominal pain) - Urinary Catheter Management Straight Cath placed during this visit: yes Reason for continuing: Other continuation reason Insertion date: 04/11/18 Insertion time: 21:08 Indwelling Urethral Catheter Cath placed during this visit: yes, but has since been removed by the nurse Reason for continuing: Not indwelling catheter Insertion date: 04/11/18 Insertion time: 21:08 Removal date: 04/12/18 Removal time: 11:35 Condom Cath placed during this visit: no Reason for continuing: Not indwelling catheter Results - Labs CBC & Chem 7: 04/13/18 06:39 04/13/18 05:10 Laboratory Results - last 24 hr 04/12/18 04/12/18 04/12/18 16:38 17:08 20:56 WBC RBC Hgb 8.8 L Hct 26.0 L MCV MCH MCHC RDW Plt Count MPV Neut % (Auto) Lymph % (Auto) [place] % (Auto) Eos % (Auto) Baso % (Auto) Neut # (Auto) Lymph # (Auto) [place] # (Auto) Eos # (Auto) Baso # (Auto) WBC Differential Differential Comment Sodium Potassium Chloride Carbon Dioxide Anion Gap BUN Creatinine Estimated GFR POC Glucose 104 161 H Random Glucose Calcium Prot Corrected Calcium Total Bilirubin AST ALT Alkaline Phosphatase Total Protein Albumin Vancomycin Trough 04/13/18 04/13/18 04/13/18 05:10 06:39 07:41 WBC 12.9 H RBC 2.70 L Hgb 8.4 L Hct 24.8 L MCV 91.7 MCH 31.0 MCHC 33.8 RDW 15.9 Plt Count 463 H MPV 6.0 L Neut % (Auto) 77.4 H Lymph % (Auto) 10.1 [place] % (Auto) 9.1 H Eos % (Auto) 2.5 Baso % (Auto) 0.9 Neut # (Auto) 10.0 H Lymph # (Auto) 1.3 [place] # (Auto) 1.2 H Eos # (Auto) 0.3 Baso # (Auto) 0.1 WBC Differential . Differential Comment Auto diff final Sodium 130 L Potassium 4.0 Chloride 98 Carbon Dioxide 23.5 Anion Gap 9 BUN 12 Creatinine 0.52 L Estimated GFR Greater than 89 POC Glucose 112 H Random Glucose 90 Calcium 7.2 L* Prot Corrected Calcium 7.5 L Total Bilirubin 0.4 AST 20 ALT 18 Alkaline Phosphatase 90 Total Protein 6.6 D Albumin 2.0 L Vancomycin Trough 5.1 04/13/18 04/13/18 12:48 12:50 WBC RBC Hgb Hct MCV MCH MCHC RDW Plt Count MPV Neut % (Auto) Lymph % (Auto) [place] % (Auto) Eos % (Auto) Baso % (Auto) Neut # (Auto) Lymph # (Auto) [place] # (Auto) Eos # (Auto) Baso # (Auto) WBC Differential Differential Comment Sodium Potassium Chloride Carbon Dioxide Anion Gap BUN Creatinine Estimated GFR POC Glucose 318 H 332 H Random Glucose Calcium Prot Corrected Calcium Total Bilirubin AST ALT Alkaline Phosphatase Total Protein Albumin Vancomycin Trough Microbiology 04/11/18 13:45 Blood - Peripheral Aerobic Blood Culture - Preliminary No growth in 2 days 04/11/18 13:45 Blood - Peripheral Anaerobic Blood Culture - Preliminary No growth in 2 days 04/11/18 13:50 Blood - Peripheral Aerobic Blood Culture - Preliminary No growth in 2 days 04/11/18 13:50 Blood - Peripheral Anaerobic Blood Culture - Preliminary No growth in 2 days 04/11/18 12:00 Wound - Thigh Gram Stain - Final 04/11/18 12:00 Wound - Thigh Wound Culture - Final S. aureus MRSA Assessment and Plan - Plan Dark stools possibly melena, documented per [facility] Symptomatic anemia with hemoglobin 6.7. Patient had left lower extremity atherectomy 04/09/2018. Hemoglobin noted on discharge 10.4 and patient was sent to the [facility]. History of flex sigmoid September 2017, diverticulosis descending colon and healing colitis Acute on chronic constipation, large amount of stool seen throughout colon and in the rectum per CT scan Discussed with patient the need for endoscopy to review and observe for any ulcer disease versus inflammation versus obvious bleeding. Patient initially declined but then stated he was okay with the endoscopy but no lower colonoscopy or sigmoidoscopy since that was done recently this year. There is currently no family present. 04/13/2018 current hemoglobin 8.4 WBC count mild leukocytosis 12.9 but decreasing. She is status post EGD on 04/12/2018 with mild gastritis noted no obvious bleeding noted. Discussed with patient the need for colonoscopy in the hospital due to his age and comorbidities, agreed. Patient agrees. Dependent on patient's colonoscopy results may also need PillCam as an outpatient, history of colitis in September 2017 Plan Diet changed to clear liquids PPI, MiraLAX daily Bowel regimen Monitor labs and transfuse as needed Consent for colonoscopy in a.m. n.p.o. at midnight Mag citrate x3 bottles and Dulcolax 20 mg, prep per Dr.Duphare Further recommendations to follow Patient was seen per myself and Dr. Swain, note was written on his behalf
[2018-04-13] MEDS: Morphine Inj 4 MG/ML Vial IV.PUSH PRN (17:37)
[2018-04-14] MEDS: Vancomycin Inj 1,000 MG in Sodium Chlor 0.9% Inj 250 ML IV.SIG SCH ×3 (00:06→18:49)
[2018-04-14] MEDS ORDERED: Chlorhexidine Gluconate 2% 1 Pack (2 Cloths) TOPICAL ONE (03:26)
[2018-04-14] MEDS: Levothyroxine 125 MCG Tablet PO SCH (06:24)
[2018-04-14] MEDS ORDERED: Magnesium Citrate Liq 300 ML Bottle PO ONE (08:00)
[2018-04-14] MEDS ORDERED: Sod Phosphate/Sod Biphosphate (Adult) Enema 133 ML Bottle RECTAL ONE (08:00)
[2018-04-14] MEDS: Pantoprazole Inj 40 MG Vial IV.PUSH SCH ×2 (08:37→20:51)
[2018-04-14] MEDS: Collagenase Oint 30 GM Tube TOPICAL SCH (08:39)
[2018-04-14] MEDS: Insulin NovoLOG Aspart Correctional Sugar Inj SQ SCH ×4 (08:50→20:53)
[2018-04-14] MEDS: dilTIAZem 30 MG Tablet PO SCH ×3 (09:49→17:50)
[2018-04-14] MEDS: Amiodarone 200 MG Tablet PO SCH (09:50)
[2018-04-14] MEDS: Ferrous Sulfate 325 MG Tablet PO SCH ×3 (09:50→17:51)
[2018-04-14] MEDS: Gentamicin 0.1% Cream 15 GM Cream TOPICAL SCH ×2 (09:51→20:53)
[2018-04-14] MEDS: Potassium Phos/Sodium Phos 250 MG Tablet PO SCH ×4 (09:51→20:50)
[2018-04-14] MEDS: Magnesium Oxide 400 MG Tablet PO SCH ×4 (09:52→20:50)
[2018-04-14] MEDS: Polyethylene Glycol 3350 17 GM Packet PO SCH (09:54)
[2018-04-14] MEDS: Gabapentin 300 MG Capsule PO SCH ×3 (09:54→17:55)
[2018-04-14] MEDS: Sodium Chloride 1 GM Tablet PO SCH ×3 (09:55→17:56)
[2018-04-14] MEDS: Ascorbic Acid 500 MG Tablet PO SCH ×2 (09:56→20:50)
--- NOTE | 2018-04-14 11:48 | P.PNFP ---
Subjective Interval history: Patient was seen at bedside this morning. There were no acute events overnight. Patient reports having continued pain overnight. He also reports that he had significant vomiting when trying to drink the magnesium citrate. He said he tried to drink 2 of the bottles but vomited so it is unknown how much he actually consumed. Patient also expressed some frustration at being in pain and having to go to the colonoscopy process. Patient denies any subjective fevers, chills, shortness of breath, or chest pain. All questions were answered to the patient's satisfaction. <Geoff Frost - 04/14/18 11:48> Results - Labs Result diagrams: 04/18/18 06:23 04/18/18 06:23 <Stephane Sanderson - 04/18/18 14:03> Abnormal lab results 04/17/18 04/17/18 04/18/18 Range/Units 16:42 21:00 06:23 WBC 11.9 H (4.0-11.0) th/mm3 RBC 2.78 L (4.50-5.90) mil/mm3 Hgb 8.8 L (13.0-17.0) gm/dL Hct 26.0 L (39.0-51.0) % Plt Count 482 H (150-450) th/mm3 MPV 6.3 L (7.0-11.0) fL Sodium (136-145) meq/L Creatinine (0.60-1.30) mg/dL POC Glucose 199 H 224 H (68-110) mg/dl Random Glucose (74-106) mg/dL Calcium (8.5-10.1) mg/dL 04/18/18 04/18/18 04/18/18 Range/Units 06:23 07:57 12:23 WBC (4.0-11.0) th/mm3 RBC (4.50-5.90) mil/mm3 Hgb (13.0-17.0) gm/dL Hct (39.0-51.0) % Plt Count (150-450) th/mm3 MPV (7.0-11.0) fL Sodium 134 L (136-145) meq/L Creatinine 0.52 L (0.60-1.30) mg/dL POC Glucose 165 H 138 H (68-110) mg/dl Random Glucose 120 H (74-106) mg/dL Calcium 8.1 L (8.5-10.1) mg/dL Short CBC 04/18/18 Range/Units 06:23 WBC 11.9 H (4.0-11.0) th/mm3 Hgb 8.8 L (13.0-17.0) gm/dL Hct 26.0 L (39.0-51.0) % Plt Count 482 H (150-450) th/mm3 BMP 04/18/18 06:23 Sodium 134 L Potassium 4.2 Chloride 98 Carbon Dioxide 26.8 BUN 12 Creatinine 0.52 L Calcium 8.1 L <Stephane Sanderson - 04/18/18 14:03> Abnormal lab results 04/13/18 04/13/18 04/13/18 Range/Units 12:48 12:50 16:24 POC Glucose 318 H 332 H 160 H (68-110) mg/dl 04/13/18 04/14/18 Range/Units 22:22 08:43 POC Glucose 168 H 197 H (68-110) mg/dl <Geoff Frost - 04/14/18 11:48> Physical Exam Vital signs: Vital Signs 04/17/18 16:00 04/17/18 20:00 04/17/18 20:02 Temperature 98.1 F 98.3 F Pulse Rate 67 63 62 Respiratory Rate 18 20 Blood Pressure 122/70 117/56 L Pulse Oximetry 97 97 04/17/18 22:48 04/18/18 00:00 04/18/18 00:12 Temperature 97.6 F Pulse Rate 59 L 55 L Respiratory Rate 20 20 Blood Pressure 118/56 L Pulse Oximetry 97 04/18/18 01:37 04/18/18 03:03 04/18/18 04:00 Temperature 97.3 F L Pulse Rate 61 Respiratory Rate 18 18 20 Blood Pressure 143/66 H Pulse Oximetry 99 04/18/18 04:05 04/18/18 06:33 04/18/18 08:00 Temperature 97.5 F L Pulse Rate 58 L 64 Respiratory Rate 20 18 Blood Pressure 136/61 Pulse Oximetry 95 04/18/18 12:00 Temperature 97.8 F Pulse Rate 59 L Respiratory Rate 18 Blood Pressure 103/57 L Pulse Oximetry 97 Intake & Output 04/17/18 04/18/18 04/18/18 18:59 06:59 18:59 Intake Total 718.5 / 718.5 470 / 470 Output Total 1150 / 1150 1850 / 1850 Balance -431.5 / -431.5 -1380 / -1380 Weight 58.3 kg Intake: IV 358.5 / 358.5 350 / 350 Zosyn 3.375 GM Premix 50 ML @ 100 / 100 100 / 100 100 mls/hr IV.SIG Q6H [facility] Rx#: [id number] Vancomycin Inj 1,000 MG In NS 250 / 250 Inj 250 ML @ 250 mls/hr IV.SIG Q12H [facility] Rx#:[id number] Vancomycin Inj 850 MG In NS Inj 258.5 / 258.5 250 ML @ 250 mls/hr IV.SIG Q12H [facility] Rx#:[id number] Oral 360 / 360 120 / 120 Output: Urine 550 / 550 Urine Amount (Catheter) 600 / 600 1850 / 1850 Condom 600 / 600 1850 / 1850 Other: Date of Last Bowel Movement 04/15/18 04/15/18 <Stephane Sanderson - 04/18/18 14:03> Vital Signs 04/13/18 12:00 04/13/18 16:00 04/13/18 20:00 Temperature 98.1 F 97.6 F 99 F Pulse Rate 70 66 70 Respiratory Rate 17 17 18 Blood Pressure 114/55 L 115/55 L 136/68 Pulse Oximetry 97 98 97 04/14/18 00:00 04/14/18 04:00 04/14/18 08:00 Temperature 98.1 F 97.6 F 98 F Pulse Rate 77 73 64 Respiratory Rate 20 20 18 Blood Pressure 157/68 H 122/71 122/58 L Pulse Oximetry 96 98 96 Intake & Output 04/13/18 04/14/18 04/14/18 18:59 06:59 18:59 Intake Total 1150 / 1150 250 / 250 200 / 200 Output Total 400 / 400 1300 / 1300 Balance 750 / 750 250 / 250 -1100 / -1100 Weight 60.1 kg Intake: IV 250 / 250 Vancomycin Inj 1,000 MG In NS 250 / 250 Inj 250 ML @ 250 mls/hr IV.SIG Q18H [facility] Rx#:[id number] Oral 900 / 900 200 / 200 Other 250 / 250 Output: Urine 400 / 400 1300 / 1300 Other: Date of Last Bowel Movement 04/13/18 04/13/18 # Bowel Movements 3 5 <Geoff Frost 04/14/18 11:48> Narrative: General: Pleasant, frail-appearing elderly male in no acute distress. Patient was seen during diaper change. Patient continues to have thick dark tarry stools and may not be adequately prepared for colonoscopy today. Skin: Dressing of ulcers on the left posterior calf, left posterior ankle. Small draining wound to the right lateral thigh. Cardio: Regular rate and rhythm, no murmurs rubs or gallops Pulmonary: Clear to auscultation bilaterally, no wheezes or crackles Abdomen: Soft nontender nondistended positive bowel sounds no guarding or rebound MSK: Significant muscle atrophy in both lower extremities with covered bandage on right lateral hip as well as bandaged feet Back: Nontender. No CVA tenderness. Psychiatric: Patient alert and oriented x3 : condom catheter in place <Geoff Frost 04/14/18 12:07> - Urinary Catheter Management Condom Cath placed during this visit: no <Stephane Sanderson 04/18/18 14:03> no <Geoff Frost 04/14/18 12:07> Reason for continuing: Not indwelling catheter <Geoff Frost 04/14/18 11:48 > Indwelling Urethral Catheter Cath placed during this visit: no <Stephane Sanderson 04/18/18 14:03> yes, but has since been removed by the nurse <Geoff Frost 04/14/18 12:07> Reason for continuing: Not indwelling catheter <Geoff Frost 04/14/18 11:48 > Insertion date: 04/11/18 <Geoff Frost 04/14/18 11:48> Insertion time: 21:08 <Geoff Frost 04/14/18 11:48> Removal date: 04/12/18 <Goeff Frost 04/14/18 11:48> Removal time: 11:35 <Geoff Frost 04/14/18 11:48> Straight Cath placed during this visit: no <Stephane Sanderson 04/18/18 14:03> yes <Geoff Frost 04/14/18 12:07> Reason for continuing: Other continuation reason <Geoff Frost - 04/14/18 11: 48> Insertion date: 04/11/18 <Geoff Frost - 04/14/18 11:48> Insertion time: 21:08 <Geoff Frost - 04/14/18 11:48> Assessment and Plan - Assessment (1) MRSA (methicillin resistant staph aureus) culture positive Code(s): Z22.322 - Carrier or suspected carrier of Methicillin resistant Staphylococcus aureus Status: Acute Plan: 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 Patient had wound from right thigh cultured which ultimately grew methicillin resistant staph coccus aureus. Patient now on contact precautions as well as vancomycin has begun. -Contact precautions -WBC improved from yesterday -Monitor for fevers and signs of systemic illness -Continue vancomycin, pharmacy consultation for decision -Blood cultures no growth in 3 day -Wound care consult ordered appreciate wound care recommendations (2) GI bleed Code(s): K92.2 - Gastrointestinal hemorrhage, unspecified Status: Acute Plan: 87-year-old male with history of hypertension, diabetes, chronic nonhealing wounds, PAD with recent right LE arterectomy presents to the ED via [facility] for severe anemia and melena. Patient had upper endoscopy this morning that revealed no obvious source of upper GI bleeding. Per gastroenterology patient will also need a colonoscopy to rule out any lower GI bleeding. Patient has status post 2 units of packed red blood cells within H/H of 8.4/24.8 this morning posttransfusion. -Status post 2 units of packed red blood cells transfused on 04/11 -Protonix 40 mg twice daily IV -Colonoscopy recommended as well as a PillCam -Patient not be adequate prepared as he had issues drinking the magnesium citrate still had black tarry stools on examination this morning -Monitor hemoglobin hematocrit (3) PAD (peripheral artery disease) Code(s): I73.9 - Peripheral vascular disease, unspecified Status: Chronic Plan: s/p recent right LE arterectomy. Per vascular surgery patient will need therapy for his peripheral arterial disease which will be commenced once source of bleeding is identified and treated. (4) Bandemia Code(s): D72.825 - Bandemia Status: Acute Plan: CBC demonstrates Bands of 21 on admission. This morning patient had a white count of 12.9 with now a confirmed MRSA infection of the thigh. Please see plan for MRSA infection. (5) Hydronephrosis Code(s): N13.30 - Unspecified hydronephrosis Status: Acute Plan: Abdominal pelvis CT demonstrates development of moderate left hydronephrosis and hydroureter without ureteral obstruction. Also demonstrates stool ball in the rectum large amount of stool throughout the colon. Patient had a bladder scan this morning the revealed of a residual volume of 231 mL. Patient currently voiding well and is graded 200 mL of fluid today. Patient has no CVA tenderness. - Continue to monitor I's and O's. (6) HTN (hypertension) Code(s): I10 - Essential (primary) hypertension Status: Acute Plan: Continue Cardizem and amiodarone (7) Diabetes Code(s): E11.9 - Type 2 diabetes mellitus without complications Status: Acute Plan: Held home glipizide, Januvia Accu-Cheks Low-dose sliding scale Hypoglycemia protocol in place (8) Chronic wound of extremity Status: Acute Plan: Patient currently follows up with wound care as an outpatient Right hip wound, super observant dressing daily Skin tear lower left extremity, Santyl covered and dry dressing daily Right heel wound, apply gentamicin cream twice daily Wound care consulted, appreciate recommendations (9) Nutrition, metabolism, and development symptoms Code(s): R63.8 - Other symptoms and signs concerning food and fluid intake Status: Acute Plan: Fluids: P.o. hydration Diet: Regular diet Vitals every 4, monitor I's and O's DVT prophylaxis: Contraindicated due to upper GI bleed <Geoff Frost - 04/14/18 11:51> (1) Osteomyelitis of ankle Code(s): M86.9 - Osteomyelitis, unspecified Status: Acute (2) Chronic wound of extremity Status: Acute (3) MRSA (methicillin resistant staph aureus) culture positive Code(s): Z22.322 - Carrier or suspected carrier of Methicillin resistant Staphylococcus aureus Status: Acute (4) GI bleed Code(s): K92.2 - Gastrointestinal hemorrhage, unspecified Status: Acute (5) PAD (peripheral artery disease) Code(s): I73.9 - Peripheral vascular disease, unspecified Status: Chronic (6) Bandemia Code(s): D72.825 - Bandemia Status: Acute (7) Hydronephrosis Code(s): N13.30 - Unspecified hydronephrosis Status: Acute (8) HTN (hypertension) Code(s): I10 - Essential (primary) hypertension Status: Acute (9) Diabetes Code(s): E11.9 - Type 2 diabetes mellitus without complications Status: Acute (10) Acute blood loss anemia Code(s): D62 - Acute posthemorrhagic anemia Status: Resolved (11) Malnutrition Code(s): E46 - Unspecified protein-calorie malnutrition Status: Acute (12) Anisocoria Code(s): H57.02 - Anisocoria Status: Acute (13) Nutrition, metabolism, and development symptoms Code(s): R63.8 - Other symptoms and signs concerning food and fluid intake Status: Acute <Stephane Sanderson - 04/18/18 14:03> - Attending Attestation The exam, history, and the medical decision-making described in the above note were completed with the assistance of the resident physician. I reviewed and agree with the findings presented. I attest that I had a [id number] encounter with the patient on the same day, and personally performed and documented my assessment and findings in the medical record. <Stephane Sanderson - 04/18/18 14:03> <Geoff Frost - Last Filed: 04/14/18 11:51> (2) GI bleed Qualifiers: GI bleed type/associated pathology: unspecified gastrointestinal hemorrhage type Qualified Code(s): K92.2 - Gastrointestinal hemorrhage, unspecified (5) Hydronephrosis Qualifiers: Hydronephrosis type: unspecified Qualified Code(s): N13.30 - Unspecified hydronephrosis <Stephane Sanderson - Last Filed: 04/18/18 14:03> (1) Osteomyelitis of ankle Qualifiers: Qualified Code(s): M86.9 - Osteomyelitis, unspecified (4) GI bleed Qualifiers: Qualified Code(s): K92.2 - Gastrointestinal hemorrhage, unspecified (7) Hydronephrosis Qualifiers: Qualified Code(s): N13.30 - Unspecified hydronephrosis <Geoff Frost - Last Filed: 04/14/18 11:51> (2) GI bleed Qualifiers: GI bleed type/associated pathology: unspecified gastrointestinal hemorrhage type Qualified Code(s): K92.2 - Gastrointestinal hemorrhage, unspecified (5) Hydronephrosis Qualifiers: Hydronephrosis type: unspecified Qualified Code(s): N13.30 - Unspecified hydronephrosis <Stephane Sanderson - Last Filed: 04/18/18 14:03> (1) Osteomyelitis of ankle Qualifiers: Qualified Code(s): M86.9 - Osteomyelitis, unspecified (4) GI bleed Qualifiers: Qualified Code(s): K92.2 - Gastrointestinal hemorrhage, unspecified (7) Hydronephrosis Qualifiers: Qualified Code(s): N13.30 - Unspecified hydronephrosis
[2018-04-14] MEDS ORDERED: Phenylephrine/NS 1000 MCG/10ML Syringe IV.PUSH ONE (14:35)
[2018-04-14] MEDS ORDERED: Lidocaine PF 1% Inj 5 ML Syringe OTHER ONE (14:35)
--- NOTE | 2018-04-14 15:24 | P.PCN ---
Date of procedure: 04/14/18 Procedure: THANK YOU FOR THE REFERRAL Indication; GI bleed, anemia Procedure Performed; Colonoscopy with biopsy After informing the patient about procedure and possible complications consent was signed. history and physical were updated. Patient was taken to the procedure room and placed in position. Time out was completed. Adequate sedation was performed by anesthesia provider. Colonoscopy, rectal exam was performed the scope was placed in the rectum advanced under video guide to the cecum which was identifed by ileo-cecal valve and appendiceal orifice, then the scope withdrawal slowly with examination of the mucosa to the rectum and retro-flexion was performed, the scope was withdrawal without any immediate complication Findings; Terminal ileum : Negative Colon significant amount of stool throughout the colon may interfere with division of small lesion, diverticular disease, no sign of active bleeding at this point Rectum small ulcer in the rectum biopsy was done not actively bleeding The patient refusing any preparation more than what he did and future colonoscopy Recommendations; 1- Supportive care 2- ok to transfer to recovery area then discharge per protocol 3-follow-up biopsy 6-xepu-apols diet 5-Hemoccult on a yearly basis by primary care physician 6-monitor H&H with packed RBC as needed
--- NOTE | 2018-04-14 15:31 | P.PNGI ---
Subjective Interval history: Patient laying in bed, seems to be comfortable, he took some of the prep and he stated that he will not take anymore and he does not want to have any future colonoscopy but he is willing to undergo this procedure, colonoscopy was done today, he denies any GI bleed at this point Physical Exam Vital signs: Vital Signs 04/13/18 16:00 04/13/18 20:00 04/14/18 00:00 Temperature 97.6 F 99 F 98.1 F Pulse Rate 66 70 77 Respiratory Rate 17 18 20 Blood Pressure 115/55 L 136/68 157/68 H Pulse Oximetry 98 97 96 04/14/18 04:00 04/14/18 08:00 Temperature 97.6 F 98 F Pulse Rate 73 64 Respiratory Rate 20 18 Blood Pressure 122/71 122/58 L Pulse Oximetry 98 96 Intake & Output 04/13/18 04/14/18 04/14/18 18:59 06:59 18:59 Intake Total 1150 / 1150 250 / 250 500 / 500 Output Total 400 / 400 1300 / 1300 Balance 750 / 750 250 / 250 -800 / -800 Weight 60.1 kg Intake: IV 250 / 250 Vancomycin Inj 1,000 MG In NS 250 / 250 Inj 250 ML @ 250 mls/hr IV.SIG Q18H ACE Rx#:[id number] Oral 900 / 900 200 / 200 Anesthesia Amount 300 / 300 Other 250 / 250 Output: Urine 400 / 400 1300 / 1300 Other: Date of Last Bowel Movement 04/13/18 04/13/18 # Bowel Movements 3 5 - Constitutional no acute distress - Routine HEENT Exam Head: Present: normocephalic Eye: Present: EOMI, PERRL ENT: Present: mucous membranes moist - Routine Neck Exam Present: supple - Routine Respiratory Exam Present: decreased breath sounds - Routine Cardiovascular Exam Present: RRR, S1, S2 - Routine Abdominal Exam Present: soft, normoactive bowel sounds - Urinary Catheter Management Straight Cath placed during this visit: yes Reason for continuing: Other continuation reason Insertion date: 04/11/18 Insertion time: 21:08 Indwelling Urethral Catheter Cath placed during this visit: yes, but has since been removed by the nurse Reason for continuing: Not indwelling catheter Insertion date: 04/11/18 Insertion time: 21:08 Removal date: 04/12/18 Removal time: 11:35 Condom Cath placed during this visit: no Reason for continuing: Not indwelling catheter Results - Labs CBC & Chem 7: 04/13/18 06:39 04/13/18 05:10 Laboratory Results - last 24 hr 04/13/18 04/13/18 04/14/18 16:24 22:22 08:43 POC Glucose 160 H 168 H 197 H 04/14/18 12:41 POC Glucose 174 H Microbiology 04/11/18 13:45 Blood - Peripheral Aerobic Blood Culture - Preliminary No growth in 3 days 04/11/18 13:45 Blood - Peripheral Anaerobic Blood Culture - Preliminary No growth in 3 days 04/11/18 13:50 Blood - Peripheral Aerobic Blood Culture - Preliminary No growth in 3 days 04/11/18 13:50 Blood - Peripheral Anaerobic Blood Culture - Preliminary No growth in 3 days Assessment and Plan - Plan Dark stools possibly melena, documented per [facility] Symptomatic anemia with hemoglobin 6.7. Patient had left lower extremity atherectomy 04/09/2018. Hemoglobin noted on discharge 10.4 and patient was sent to the [facility]. History of flex sigmoid September 2017, diverticulosis descending colon and healing colitis Acute on chronic constipation, large amount of stool seen throughout colon and in the rectum per CT scan Discussed with patient the need for endoscopy to review and observe for any ulcer disease versus inflammation versus obvious bleeding. Patient initially declined but then stated he was okay with the endoscopy but no lower colonoscopy or sigmoidoscopy since that was done recently this year. There is currently no family present. 04/13/2018 current hemoglobin 8.4 WBC count mild leukocytosis 12.9 but decreasing. She is status post EGD on 04/12/2018 with mild gastritis noted no obvious bleeding noted. Discussed with patient the need for colonoscopy in the hospital due to his age and comorbidities, agreed. Patient agrees. Dependent on patient's colonoscopy results may also need PillCam as an outpatient, history of colitis in September 2017 04/14/2018 patient is doing okay hemoglobin stable, no drop in his hemoglobin and no sign of active bleeding, endoscopy showed gastritis, colonoscopy was done today no sign of active bleeding Since the patient has black stool it could be coming from the small bowel but the patient does not want any procedure Findings; Terminal ileum : Negative Colon significant amount of stool throughout the colon may interfere with division of small lesion, diverticular disease, no sign of active bleeding at this point Rectum small ulcer in the rectum biopsy was done not actively bleeding The patient refusing any preparation more than what he did and future colonoscopy Recommendations; 1- Supportive care 2- ok to transfer to recovery area then discharge per protocol 3-follow-up biopsy 3-[id number] diet 5-Hemoccult on a yearly basis by primary care physician 6-monitor H&H with packed RBC as needed
--- NOTE | 2018-04-14 18:00 | P.PNWCN ---
Wound Care Nurse Consult Description: Received wound management consult for R hip wound, LLE skin tear wound Communicated with: VANESA levin and call placed to Doctor Recommendation: 1.Please consult Podiatry for R Achilles heel wound 2.Please obtain wound culture of R Achilles heel wound 3.Cleanse wound to R Achilles heel with normal saline only and pat dry. Apply gentamicin mixed with Santyl 50/ 50 and apply to wound bed . 4.Cover with ABD pad, and secure with rolled gauze and tape. Change dressing daily, until seen by podiatry. 5.Cleanse wound to R hip with normal saline and pat dry. Apply Optilock dressing secured with paper tape Change PRN for saturation or dislodgement 6.Cleanse wound to L posterior lower leg with normal saline and pat dry. Apply optifoam gentle 4x4 dressing change dressing every 3 days or PRN if saturated or dislodged. 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 Wound has a foul odor with minimal villagomez/green drainage. Surrounding Tissue Appearance: Erythema Surrounding Tissue Temperature: Warm Drainage Description: Green/ villagomez/ thick drainage Drainage Amount: Minimal Drainage Odor: Slight Odor Dressing Status: Changed Cleansing Solution: Saline Topical: Medicated Ointment Primary Dressing: Absorbant Pad Cover Dressing: Gauze Roll/Wrap Tape Type: Paper Wound Dressing Change Date: 04/14/18 Wound Margin Description: Wound margins are closed and irregular. Left Lower Posterior Leg Wound Assessment: Ongoing Wound Type: Traumatic Wound Is This a Chronic Wound: No Requested from Provider a Wound Care Consult: Yes (Wound care saw patient) Length (cm): 2 (~2cm) Width (cm): 1 (~1cm) Depth (cm): 0.1 (~0.1cm) Wound Bed Appearance: [place] Wound Bed Appearance: 100% pink tissue Surrounding Tissue Appearance: [place] Surrounding Tissue Temperature: Cool Drainage Description: Serous Drainage Amount: Minimal Drainage Odor: No Odor Dressing Status: Changed Right Hip Wound Type: Lesion (Wound presents as a draining open lesion) Is This a Chronic Wound: No Requested from Provider a Wound Care Consult: Yes (Wound care has seen patient) Length (cm): 1 (~1cm) Width (cm): 0.5 (~0.5cm) Depth (cm): 0.1 (~0.1cm) Wound Bed Appearance: [place] Wound Bed Appearance: Wound presents as an erythematous lesion that open, reveal pink tissue, with moderate sero-sanguinous drainage, Surrounding Tissue Appearance: Erythema Surrounding Tissue Temperature: Warm Drainage Description: Serosanguinous Drainage Amount: Moderate Drainage Odor: No Odor Dressing Status: Changed Cleansing Solution: Saline Cover Dressing: Optilock Tape Type: Paper Wound Dressing Change Date: 04/14/18 - Additional Information Patient seen on for wound management of R hip and skin tear to LLE. Patient seen and assessed with RN Carrier. First removed dressing in place to R heel. Wound to R Achilles heel presents as a full thickness wound, with exposed de la torre colored tendon, necrotic tissue, hypergranulated tissue and purple tissue. 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 Drainage from R heel wound is villagomez/ green with a musty odor. Wound margins are well defined and closed due to hypergranulated tissue. Wound was cleansed with normal saline and patted dry. Applied Gentamicin as ordered to R heel and covered with ABD pad, secured with rolled gauze and tape. Wound to LLE was then assessed. Bordered gauze was removed with L lower posterior leg to reveal small shallow wound to L lower posterior leg with minimal serous drainage and 100% pink tissue. Periwound was unremarkable. Wound was cleansed with normal saline and patted dry.Wound was then covered with Veratel one contact layer until optifoam gentle can be placed. Attention was then turned toward the R hip. This wound presents more like and erythematous open lesion, draining a moderate amount of sero-sanguinous drainage. Lesion was cleansed with normal saline and patted dry. Applied optilock in place for drainage, secured with paper tape. Recommendations for wound care and full measurements and descriptions of each wound is noted above.
[2018-04-14 21:21] LABS: Baso # (Auto) 0.1 th/mm3 (0.0-0.2); Baso % (Auto) 0.8 % (0.0-2.0); Eos # (Auto) 0.2 th/mm3 (0.0-0.4); Eos % (Auto) 1.4 % (0.0-4.0); Hematocrit 25.6 % (39.0-51.0); Hemoglobin 8.7 gm/dL (13.0-17.0); Lymph % (Auto) 8.4 % (9.0-44.0); Mean Corpuscular HGB Conc 33.9 % (32.0-36.0); Mean Corpuscular Hemoglobin 31.4 pg (27.0-34.0); Mean Corpuscular Volume 92.6 fL (80.0-100.0); Mean Platelet Volume 6.3 fL (7.0-11.0); Mono # (Auto) 1.1 th/mm3 (0.0-0.9); Mono % (Auto) 9.5 % (0.0-8.0); Neut # (Auto) 9.5 th/mm3 (1.8-7.7); Neut % (Auto) 79.9 % (16.0-70.0); Platelet Count 482 th/mm3 (150-450); Red Blood Count 2.77 mil/mm3 (4.50-5.90); Red Cell Distribution Width 15.3 % (11.6-17.2); White Blood Count 11.9 th/mm3 (4.0-11.0)
[2018-04-14 21:51] LABS: Anion Gap 9 meq/L (5-15); Blood Urea Nitrogen 11 mg/dL (7-18); Calcium 7.8 mg/dL (8.5-10.1); Carbon Dioxide 26.3 meq/L (21.0-32.0); Chloride 98 meq/L (98-107); Glomerular Filtration Rate Greater Than 89 mL/min (>89); Glucose,Random 177 mg/dL (74-106); Sodium 133 meq/L (136-145)
[2018-04-15 05:53] LABS: Baso # (Auto) 0.1 th/mm3 (0.0-0.2); Eos # (Auto) 0.4 th/mm3 (0.0-0.4); Eos % (Auto) 3.9 % (0.0-4.0); Hematocrit 26.9 % (39.0-51.0); Hemoglobin 8.9 gm/dL (13.0-17.0); Lymph # (Auto) 1.2 th/mm3 (1.0-4.8); Lymph % (Auto) 13.3 % (9.0-44.0); Mean Corpuscular HGB Conc 33.2 % (32.0-36.0); Mean Corpuscular Hemoglobin 30.7 pg (27.0-34.0); Mean Corpuscular Volume 92.4 fL (80.0-100.0); Mean Platelet Volume 6.3 fL (7.0-11.0); Mono # (Auto) 0.9 th/mm3 (0.0-0.9); Mono % (Auto) 10.1 % (0.0-8.0); Neut # (Auto) 6.7 th/mm3 (1.8-7.7); Neut % (Auto) 71.7 % (16.0-70.0); Platelet Count 485 th/mm3 (150-450); Red Blood Count 2.91 mil/mm3 (4.50-5.90); Red Cell Distribution Width 15.5 % (11.6-17.2); White Blood Count 9.3 th/mm3 (4.0-11.0)
[2018-04-15] MEDS: Levothyroxine 125 MCG Tablet PO SCH (05:53)
[2018-04-15 06:00] LABS: Anion Gap 9 meq/L (5-15); Blood Urea Nitrogen 11 mg/dL (7-18); Calcium 7.9 mg/dL (8.5-10.1); Carbon Dioxide 26.7 meq/L (21.0-32.0); Chloride 99 meq/L (98-107); Glomerular Filtration Rate Greater Than 89 mL/min (>89); Glucose,Random 129 mg/dL (74-106); Potassium 4.1 meq/L (3.5-5.1); Sodium 135 meq/L (136-145)
[2018-04-15] MEDS: Insulin NovoLOG Aspart Correctional Sugar Inj SQ SCH ×4 (08:04→21:44)
[2018-04-15] MEDS: Amiodarone 200 MG Tablet PO SCH (08:24)
[2018-04-15] MEDS: Pantoprazole Inj 40 MG Vial IV.PUSH SCH ×2 (08:25→21:44)
[2018-04-15] MEDS: Gabapentin 300 MG Capsule PO SCH ×3 (08:25→18:39)
[2018-04-15] MEDS: Ascorbic Acid 500 MG Tablet PO SCH ×2 (08:25→21:43)
[2018-04-15] MEDS: dilTIAZem 30 MG Tablet PO SCH ×3 (08:25→18:40)
[2018-04-15] MEDS: Magnesium Oxide 400 MG Tablet PO SCH ×4 (08:25→21:44)
[2018-04-15] MEDS: Ferrous Sulfate 325 MG Tablet PO SCH ×3 (08:25→18:39)
[2018-04-15] MEDS: Potassium Phos/Sodium Phos 250 MG Tablet PO SCH ×4 (08:25→21:43)
[2018-04-15] MEDS: Sodium Chloride 1 GM Tablet PO SCH ×3 (08:25→18:39)
[2018-04-15] MEDS: Gentamicin 0.1% Cream 15 GM Cream TOPICAL SCH ×2 (08:26→21:38)
[2018-04-15] MEDS: Polyethylene Glycol 3350 17 GM Packet PO SCH (08:26)
[2018-04-15] MEDS: Collagenase Oint 30 GM Tube TOPICAL SCH (08:27)
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
[2018-04-15] MEDS ORDERED: Pharmacy Ordered Lab Info OTHER ONE (12:45)
--- NOTE | 2018-04-15 13:03 | P.PNGI ---
Subjective Interval history: Patient sitting up in bed watching television. No active bleeding noted or reported. <Sana Deluna - Last Filed: 04/15/18 12:56> Physical Exam Vital signs: Vital Signs 04/14/18 16:00 04/14/18 20:00 04/15/18 00:00 Temperature 97.2 F L 98 F 97.8 F Pulse Rate 58 L 69 61 Respiratory Rate 18 16 16 Blood Pressure 115/57 L 117/58 L 113/58 L Pulse Oximetry 97 99 98 04/15/18 04:00 04/15/18 08:00 Temperature 97.6 F 97.6 F Pulse Rate 62 66 Respiratory Rate 16 18 Blood Pressure 120/56 L 108/55 L Pulse Oximetry 97 97 Intake & Output 04/14/18 04/15/18 04/15/18 18:59 06:59 18:59 Intake Total 500 / 500 250 / 250 Output Total 1300 / 1300 650 / 650 Balance -800 / -800 -400 / -400 Weight 58.1 kg Intake: IV 250 / 250 Vancomycin Inj 1,000 MG In NS 250 / 250 Inj 250 ML @ 250 mls/hr IV.SIG Q18H [facility] Rx#:[id number] Oral 200 / 200 Anesthesia Amount 300 / 300 Output: Urine 1300 / 1300 450 / 450 Urine Amount (Catheter) 200 / 200 Condom 200 / 200 Other: # Bowel Movements 5 - Constitutional no acute distress - Routine HEENT Exam Head: Present: normocephalic - Routine Respiratory Exam Present: CTA bilaterally. Absent: accessory muscle use - Routine Abdominal Exam Present: soft, normoactive bowel sounds. Absent: tenderness, guarding, firm - Routine Skin Exam Present: dry, warm - Routine Neurological Exam Present: alert, oriented X3 - Routine Psychiatric Exam Present: normal affect, cooperative - Urinary Catheter Management Straight Cath placed during this visit: yes Reason for continuing: Other continuation reason Insertion date: 04/11/18 Insertion time: 21:08 Indwelling Urethral Catheter Cath placed during this visit: yes, but has since been removed by the nurse Reason for continuing: Not indwelling catheter Insertion date: 04/11/18 Insertion time: 21:08 Removal date: 04/12/18 Removal time: 11:35 Condom Cath placed during this visit: no Reason for continuing: Not indwelling catheter <Deluna,Sana - Last Filed: 04/15/18 12:56> Vital signs: Vital Signs 04/14/18 20:00 04/15/18 00:00 04/15/18 04:00 Temperature 98 F 97.8 F 97.6 F Pulse Rate 69 61 62 Respiratory Rate 16 16 16 Blood Pressure 117/58 L 113/58 L 120/56 L Pulse Oximetry 99 98 97 04/15/18 08:00 04/15/18 12:00 04/15/18 16:00 Temperature 97.6 F 98.2 F 97.6 F Pulse Rate 66 72 67 Respiratory Rate 18 18 18 Blood Pressure 108/55 L 140/63 109/52 L Pulse Oximetry 97 91 L 97 Intake & Output 04/14/18 04/15/18 04/15/18 18:59 06:59 18:59 Intake Total 500 / 500 250 / 250 Output Total 1300 / 1300 650 / 650 Balance -800 / -800 -400 / -400 Weight 58.1 kg Intake: IV 250 / 250 Vancomycin Inj 1,000 MG In NS 250 / 250 Inj 250 ML @ 250 mls/hr IV.SIG Q18H [facility] Rx#:[id number] Oral 200 / 200 Anesthesia Amount 300 / 300 Output: Urine 1300 / 1300 450 / 450 Urine Amount (Catheter) 200 / 200 Condom 200 / 200 Other: # Bowel Movements 5 - Urinary Catheter Management Straight Cath placed during this visit: no Indwelling Urethral Catheter Cath placed during this visit: no Condom Cath placed during this visit: no <Abigail Yeung - Last Filed: 04/15/18 16:59> Results - Labs CBC & Chem 7: 04/15/18 04:42 04/15/18 04:42 Laboratory Results - last 24 hr 04/14/18 04/14/18 04/15/18 20:04 20:04 04:42 WBC 11.9 H 9.3 RBC 2.77 L 2.91 L Hgb 8.7 L 8.9 L Hct 25.6 L 26.9 L MCV 92.6 92.4 MCH 31.4 30.7 MCHC 33.9 33.2 RDW 15.3 15.5 Plt Count 482 H 485 H MPV 6.3 L 6.3 L Neut % (Auto) 79.9 H 71.7 H Lymph % (Auto) 8.4 L 13.3 Cooke % (Auto) 9.5 H 10.1 H Eos % (Auto) 1.4 3.9 Baso % (Auto) 0.8 1.0 Neut # (Auto) 9.5 H 6.7 Lymph # (Auto) 1.0 1.2 Cooke # (Auto) 1.1 H 0.9 Eos # (Auto) 0.2 0.4 Baso # (Auto) 0.1 0.1 WBC Differential . . Differential Comment Auto diff final Auto diff final Sodium 133 L Potassium 4.0 Chloride 98 Carbon Dioxide 26.3 Anion Gap 9 BUN 11 Creatinine 0.51 L Estimated GFR Greater than 89 POC Glucose Random Glucose 177 H Calcium 7.8 L 04/15/18 04/15/18 04/15/18 04:42 08:27 11:32 WBC RBC Hgb Hct MCV MCH MCHC RDW Plt Count MPV Neut % (Auto) Lymph % (Auto) Cooke % (Auto) Eos % (Auto) Baso % (Auto) Neut # (Auto) Lymph # (Auto) Cooke # (Auto) Eos # (Auto) Baso # (Auto) WBC Differential Differential Comment Sodium 135 L Potassium 4.1 Chloride 99 Carbon Dioxide 26.7 Anion Gap 9 BUN 11 Creatinine 0.53 L Estimated GFR Greater than 89 POC Glucose 158 H 224 H Random Glucose 129 H Calcium 7.9 L Microbiology 04/11/18 13:45 Blood - Peripheral Aerobic Blood Culture - Preliminary No growth in 4 days 04/11/18 13:45 Blood - Peripheral Anaerobic Blood Culture - Preliminary No growth in 4 days 04/11/18 13:50 Blood - Peripheral Aerobic Blood Culture - Preliminary No growth in 4 days 04/11/18 13:50 Blood - Peripheral Anaerobic Blood Culture - Preliminary No growth in 4 days <Sana Deluna - Last Filed: 04/15/18 12:56> - Labs CBC & Chem 7: 04/15/18 04:42 04/15/18 04:42 Laboratory Results - last 24 hr 04/14/18 04/14/18 04/14/18 18:09 20:04 20:04 WBC 11.9 H RBC 2.77 L Hgb 8.7 L Hct 25.6 L MCV 92.6 MCH 31.4 MCHC 33.9 RDW 15.3 Plt Count 482 H MPV 6.3 L Neut % (Auto) 79.9 H Lymph % (Auto) 8.4 L Cooke % (Auto) 9.5 H Eos % (Auto) 1.4 Baso % (Auto) 0.8 Neut # (Auto) 9.5 H Lymph # (Auto) 1.0 Cooke # (Auto) 1.1 H Eos # (Auto) 0.2 Baso # (Auto) 0.1 WBC Differential . Differential Comment Auto diff final Sodium 133 L Potassium 4.0 Chloride 98 Carbon Dioxide 26.3 Anion Gap 9 BUN 11 Creatinine 0.51 L Estimated GFR Greater than 89 POC Glucose 160 H Random Glucose 177 H Calcium 7.8 L Vancomycin Trough 04/14/18 04/15/18 04/15/18 20:42 04:42 04:42 WBC 9.3 RBC 2.91 L Hgb 8.9 L Hct 26.9 L MCV 92.4 MCH 30.7 MCHC 33.2 RDW 15.5 Plt Count 485 H MPV 6.3 L Neut % (Auto) 71.7 H Lymph % (Auto) 13.3 Cooke % (Auto) 10.1 H Eos % (Auto) 3.9 Baso % (Auto) 1.0 Neut # (Auto) 6.7 Lymph # (Auto) 1.2 Cooke # (Auto) 0.9 Eos # (Auto) 0.4 Baso # (Auto) 0.1 WBC Differential . Differential Comment Auto diff final Sodium 135 L Potassium 4.1 Chloride 99 Carbon Dioxide 26.7 Anion Gap 9 BUN 11 Creatinine 0.53 L Estimated GFR Greater than 89 POC Glucose 254 H Random Glucose 129 H Calcium 7.9 L Vancomycin Trough 04/15/18 04/15/18 04/15/18 08:27 11:32 13:30 WBC RBC Hgb Hct MCV MCH MCHC RDW Plt Count MPV Neut % (Auto) Lymph % (Auto) Cooke % (Auto) Eos % (Auto) Baso % (Auto) Neut # (Auto) Lymph # (Auto) Cooke # (Auto) Eos # (Auto) Baso # (Auto) WBC Differential Differential Comment Sodium Potassium Chloride Carbon Dioxide Anion Gap BUN Creatinine Estimated GFR POC Glucose 158 H 224 H Random Glucose Calcium Vancomycin Trough 7.3 Microbiology 04/11/18 13:45 Blood - Peripheral Aerobic Blood Culture - Preliminary No growth in 4 days 04/11/18 13:45 Blood - Peripheral Anaerobic Blood Culture - Preliminary No growth in 4 days 04/11/18 13:50 Blood - Peripheral Aerobic Blood Culture - Preliminary No growth in 4 days 04/11/18 13:50 Blood - Peripheral Anaerobic Blood Culture - Preliminary No growth in 4 days <Abigail Yeung - Last Filed: 04/15/18 16:59> Assessment and Plan - Plan Dark stools possibly melena, documented per [facility] Symptomatic anemia with hemoglobin 6.7. Patient had left lower extremity atherectomy 04/09/2018. Hemoglobin noted on discharge 10.4 and patient was sent to the [facility]. History of flex sigmoid September 2017, diverticulosis descending colon and healing colitis Acute on chronic constipation, large amount of stool seen throughout colon and in the rectum per CT scan Discussed with patient the need for endoscopy to review and observe for any ulcer disease versus inflammation versus obvious bleeding. Patient initially declined but then stated he was okay with the endoscopy but no lower colonoscopy or sigmoidoscopy since that was done recently this year. There is currently no family present. 04/13/2018 current hemoglobin 8.4 WBC count mild leukocytosis 12.9 but decreasing. She is status post EGD on 04/12/2018 with mild gastritis noted no obvious bleeding noted. Discussed with patient the need for colonoscopy in the hospital due to his age and comorbidities, agreed. Patient agrees. Dependent on patient's colonoscopy results may also need PillCam as an outpatient, history of colitis in September 2017 04/14/2018 patient is doing okay hemoglobin stable, no drop in his hemoglobin and no sign of active bleeding, endoscopy showed gastritis, colonoscopy was done today no sign of active bleeding Since the patient has black stool it could be coming from the small bowel but the patient does not want any procedure Findings; Terminal ileum : Negative Colon significant amount of stool throughout the colon may interfere with division of small lesion, diverticular disease, no sign of active bleeding at this point Rectum small ulcer in the rectum biopsy was done not actively bleeding The patient refusing any preparation more than what he did and future colonoscopy Recommendations; 1- Supportive care 2- ok to transfer to recovery area then discharge per protocol 3-follow-up biopsy 0-iozc-[id number] diet 5-Hemoccult on a yearly basis by primary care physician 6-monitor H&H with packed RBC as needed 04/15/2018-patient sitting up in bed, states tolerating diet well. Denies any noted active bleeding no bleeding reported. Hemoglobin 8.9 hematocrit 26.9. Patient post colonoscopy, findings discussed with patient. Plan -Diabetic [id number] -Advised patient to follow-up with GI post discharge for biopsy results -Monitor labs -Monitor for bleeding and transfuse if required -Continue PPI -Bowel regimen -Supportive care -Further recommendations to follow This patient has been seen by myself and Dr. Yeung and this note is written on his behalf - Attending Attestation Dr. Yeung <Sana Deluna - Last Filed: 04/15/18 12:56> - Plan Agree with above note and plan, no sign of active bleeding and hemoglobin is stable, we will follow-up as an outpatient <Abigail Yeung - Last Filed: 04/15/18 16:59>
[2018-04-15] MEDS: Vancomycin Inj 1,000 MG in Sodium Chlor 0.9% Inj 250 ML IV.SIG SCH (13:26)
--- NOTE | 2018-04-15 19:06 | MB ---
cc: Kelly Miller DPM DATE: 04/15/2018 REASON FOR CONSULTATION: Right ankle pain. HISTORY OF PRESENT ILLNESS: The patient is an 87-year-old male with a past medical history of hypertension, diabetes, chronic wounds, PAD, right lower extremity endarterectomy. He is unsure of how long he has had this wound on his heel. He does ambulate. He is independent. PAST MEDICAL HISTORY: Per HPI, diabetes, hyperlipidemia, PAD. PAST SURGICAL HISTORY: Right hip surgery, right lower extremity endarterectomy. ALLERGIES: NONE. REVIEW OF SYSTEMS: Per HPI. SOCIAL HISTORY: Denies alcohol, illicit drugs and smoking. PHYSICAL EXAMINATION: RLE . No exposed bone. DP and PT diminished. Lower extremities warm to warm. No purulence. The wound is approximately 3 x 3 cm, depth into the deep posterior ankle. It is painful on palpation. The Achilles is intact, although there are some frayed tendon noted. ASSESSMENT: 1. Right posterior Achilles wound. 2. Diabetes. 3. Peripheral arterial disease. PLAN: Order a right foot ankle MRI with and without contrast as well as right ankle images. We will discuss intervention after the review of the MRI and imaging studies with the patient. Kelly Miller DPM SR/janes/roberto , 05:22 PM , 05:29 PM FRANK
[2018-04-15] MEDS ORDERED: Gadobutrol PF 7.5 MMOL/7.5 ML Vial (for RAD) IV.SIG ONE (20:43)
--- NOTE | 2018-04-15 21:09 | MR ---
EXAM DATE: 04/15/2018 8:53 PM EDT AGE/SEX: 87 years / Male INDICATIONS: Abscess. Right ankle ulcer posterior side. CLINICAL DATA: This is the patient's initial encounter. Patient reports that signs and symptoms have been present for 1 week and indicates a pain score of 6/10. MEDICAL/SURGICAL HISTORY: Diabetes mellitus type II. Hypertension. . Hip sx. COMPARISON: No prior exams available for comparison. TECHNIQUE: Multiplanar, multisequence MRI examination was performed with contrast and after the intr avenous administration of 6 ml Gadavist (gadobutrol) contrast as a single exam dose. FINDINGS: There is marrow edema and enhancement in the posterior calcaneus most characteristic of osteomyelitis . The Achilles tendon is nearly completely torn with a small intact deep strand remaining. There is u lceration over the posterior calcaneal region with a loculated subcutaneous abscess measuring up to 2 .2 cm x 1 cm. The plantar fascial insertion is intact. The subtalar joint and tibiotalar joint are in tact. There is trace joint fluid. There is some increased fluid around the flexor tendons likely teno synovitis inferior to the sustentaculum morris. CONCLUSION: 1. Osteomyelitis of the posterior calcaneus with a near complete tear of the distal Achilles tendon. There is overlying cellulitis and subcutaneous edema with a small abscess adjacent to the distal Ach illes tendon as measured above. There is edematous change on the plantar aspect of the foot with a te nosynovitis as above. No acute fracture identified. Mild bone edema tibia, nonspecific. Electronically signed by: Nicholas Jacobsen MD 04/15/2018 9:07 PM EDT
--- NOTE | 2018-04-15 21:29 | XR ---
EXAM DATE: 04/15/2018 9:09 PM EDT AGE/SEX: 87 years / Male INDICATIONS: Right posterior ankle pain, wound. CLINICAL DATA: This is the patient's initial encounter. Patient reports that signs and symptoms have been present for 3 days and indicates a pain score of 10/10. MEDICAL/SURGICAL HISTORY: None. None. COMPARISON: No prior exams available for comparison. FINDINGS: There is soft tissue swelling of the posterior calcaneus with some erosive changes of the posterior c alcaneus most characteristic of osteomyelitis. See MRI report. Vascular calcifications noted. No acut e fracture or dislocation. CONCLUSION: Osteomyelitis of the posterior calcaneus with overlying soft tissue swelling and ulceration. No acute fracture. Electronically signed by: Nicholas Jacobsen MD 04/15/2018 9:28 PM EDT
[2018-04-16] MEDS: Vancomycin Inj 850 MG in Sodium Chlor 0.9% Inj 250 ML IV.SIG SCH ×2 (00:22→13:38)
[2018-04-16] MEDS: Levothyroxine 125 MCG Tablet PO SCH (05:52)
[2018-04-16 07:57] LABS: Baso # (Auto) 0.1 th/mm3 (0.0-0.2); Baso % (Auto) 1.3 % (0.0-2.0); Eos # (Auto) 0.4 th/mm3 (0.0-0.4); Eos % (Auto) 3.3 % (0.0-4.0); Hematocrit 25.6 % (39.0-51.0); Hemoglobin 8.6 gm/dL (13.0-17.0); Lymph # (Auto) 1.4 th/mm3 (1.0-4.8); Lymph % (Auto) 13.1 % (9.0-44.0); Mean Corpuscular HGB Conc 33.8 % (32.0-36.0); Mean Corpuscular Hemoglobin 31.5 pg (27.0-34.0); Mean Corpuscular Volume 93.4 fL (80.0-100.0); Mean Platelet Volume 6.3 fL (7.0-11.0); Mono % (Auto) 9.5 % (0.0-8.0); Neut # (Auto) 7.7 th/mm3 (1.8-7.7); Neut % (Auto) 72.8 % (16.0-70.0); Platelet Count 479 th/mm3 (150-450); Red Blood Count 2.74 mil/mm3 (4.50-5.90); Red Cell Distribution Width 15.4 % (11.6-17.2); White Blood Count 10.6 th/mm3 (4.0-11.0)
[2018-04-16 08:15] LABS: Glomerular Filtration Rate Greater Than 89 mL/min (>89)
[2018-04-16] MEDS: Insulin NovoLOG Aspart Correctional Sugar Inj SQ SCH ×4 (08:22→20:40)
[2018-04-16] MEDS: dilTIAZem 30 MG Tablet PO SCH ×3 (08:22→17:04)
[2018-04-16] MEDS: Potassium Phos/Sodium Phos 250 MG Tablet PO SCH ×4 (08:22→20:36)
[2018-04-16] MEDS: Sodium Chloride 1 GM Tablet PO SCH ×3 (08:23→17:04)
[2018-04-16] MEDS: Pantoprazole Inj 40 MG Vial IV.PUSH SCH ×2 (08:23→20:37)
[2018-04-16] MEDS: Amiodarone 200 MG Tablet PO SCH (08:23)
[2018-04-16] MEDS: Magnesium Oxide 400 MG Tablet PO SCH ×4 (08:23→20:36)
[2018-04-16] MEDS: Polyethylene Glycol 3350 17 GM Packet PO SCH (08:23)
[2018-04-16] MEDS: Ascorbic Acid 500 MG Tablet PO SCH ×2 (08:23→20:36)
[2018-04-16] MEDS: Gabapentin 300 MG Capsule PO SCH ×3 (08:23→17:04)
[2018-04-16] MEDS: Ferrous Sulfate 325 MG Tablet PO SCH ×3 (08:23→17:04)
[2018-04-16] MEDS: Gentamicin 0.1% Cream 15 GM Cream TOPICAL SCH ×2 (08:24→20:37)
[2018-04-16] MEDS: Collagenase Oint 30 GM Tube TOPICAL SCH (08:24)
[2018-04-16 09:10] LABS: Eosinophils 2 % (0-4); Lymphocytes 12 % (9-44); Monocytes 5 % (0-8); Myelocytes 1 % (0-0); Toxic Granulation 2+
[2018-04-16 09:11] LABS: Platelet Morphology Normal (Normal)
--- NOTE | 2018-04-16 14:25 | P.CONID ---
History of Present Illness Service: Infectious disease Consult date: 04/16/18 Requesting Physician: Saji Johnson Reason for Consult: Evaluate patient with osteomyelitis of the right calcaneus Primary Care Provider: No Primary Care Physician History of Present Illness: Patient seen and examined. Records reviewed. Patient is an 87-year-old male, admitted to the hospital for evaluation of low hemoglobin. There was apparently episodes of black tarry stools. He had a GI workup on this admission, and he seemed to be stable from the GI standpoint. Patient apparently has had a wound on his right heel Achilles area. He had vascular workup, and underwent aortogram around April 08, and had atherectomy of the right SFA and popliteal area. Patient could not really tell me how long he has had the open wound. He has pain when he walks. There is been no fever and chills. On this admission podiatry was consulted. 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 There is a foul odor coming out from that right foot, and patient really could not notice any difference. Since admission he has not been febrile. He has significant pain whenever his RLE gets moved. There was a culture from a right thigh wound that has MRSA. I do not see any culture from the right foot. His initial WBC was around 14,000 and that is down to normal. Blood cultures are negative. Infectious disease consultation has been requested to evaluate the patient. Review of Systems Constitutional: Denies chills, Denies fever(s), Denies night sweats Eyes: Denies discharge, Denies dry eyes Ears, Nose, Mouth, and Throat: Denies difficulty swallowing, Denies mouth pain, Denies nasal discharge, Denies sore throat Cardiovascular: Denies chest pain, Denies shortness of breath Respiratory: Denies chest congestion, Denies cough, Denies shortness of breath Gastrointestinal: Reports black, tarry stools, Denies abdominal pain, Denies difficulty swallowing, Denies loose stools, Denies nausea, Denies pain with swallowing, Denies vomiting Genitourinary: Denies painful urination Musculoskeletal: Reports joint swelling, Reports muscle weakness Skin/Breast: Reports wounds Neurologic: Denies headache(s) [facility] - History History Provided By: Patient, Medical Record - Medical History Medical History: Medical History (Last Reviewed 04/16/18 @ 14:45 by Madalyn Bonilla MD) Weakness Diabetes HLD (hyperlipidemia) MDRO (multiple drug resistant organisms) resistance Onset Date: ~04/11/18 MRSA (methicillin resistant Staphylococcus aureus) PAD (peripheral artery disease) - Surgical History Surgical History: Surgical History (Last Reviewed 04/16/18 @ 14:45 by Madalyn Bonilla MD) History of hip surgery - Family History Family History: Family History (Last Reviewed 04/16/18 @ 14:45 by Madalyn Bonilla MD) Other Diabetes - Tobacco History Smoking Status: Never smoker - Alcohol History How Often Do You Have a Drink Containing Alcohol: Never - Substance Use History Substance History: No History of Abuse - Travel History Recent Travel in the [place] Within the Last 8 Weeks: No Recent Travel Out of the Country Within the Last 8 Weeks: No - Immunization History Tetanus Immunization: Unsure Medications and Allergies Active Medications: Active Medications Acetaminophen (Tylenol) 650 mg PO Q6HR PRN PRN Reason: PAIN SCALE 1 TO 2 Hydrocodone Bitart/Acetaminophen ([place] 5/325) 1 tab PO Q6H [facility] Last Admin: 04/16/18 08:22 Dose: 1 tab Hydrocodone Bitart/Acetaminophen ([place] 7.5/325) 1 tab PO Q4H PRN PRN Reason: PAIN SCALE 6 TO 10 Last Admin: 04/16/18 06:11 Dose: 1 tab Amiodarone HCl (Cordarone) 200 mg PO DAILY [facility] Last Admin: 04/16/18 08:23 Dose: 200 mg Ascorbic Acid (Vitamin C) 500 mg PO BID [facility] Last Admin: 04/16/18 08:23 Dose: 500 mg Collagenase (Santyl Oint) 1 applicatio TOPICAL DAILY [facility] Last Admin: 04/16/18 08:24 Dose: 1 applicatio Dextrose (D50w Vial) 50 ml IV.PUSH UNSCH PRN PRN Reason: PER HYPOGLYCEMIA PROTOCOL Last Admin: 04/12/18 06:49 Dose: 50 ml Diltiazem HCl (Cardizem) 30 mg PO TID [facility] Last Admin: 04/16/18 13:38 Dose: 30 mg Ferrous Sulfate (Ferosul) 325 mg PO TID [facility] Last Admin: 04/16/18 13:37 Dose: 325 mg Gabapentin (Neurontin) 300 mg PO TID [facility] Last Admin: 04/16/18 13:37 Dose: 300 mg Gentamicin Sulfate (Gentamicin 0.1% Cream) 1 applicatio TOPICAL BID [facility] Last Admin: 04/16/18 08:24 Dose: 1 applicatio Glucagon (Glucagon Inj) 1 mg OTHER PRN PRN PRN Reason: for Hypoglycemia Protocol Sodium Chloride (Ns Inj) 500 mls @ 30 mls/hr IV.SIG .Q10H [facility] Last Admin: 04/12/18 02:14 Dose: Not Given Vancomycin HCl 850 mg/ Sodium (Chloride) 258.5 mls @ 250 mls/hr IV.SIG Q12H [facility] Last Admin: 04/16/18 13:38 Dose: 250 mls/hr Insulin Aspart (Novolog Insulin Correctional Sugar Inj) 0 unit SQ ACHS [facility]; Protocol Last Admin: 04/16/18 11:48 Dose: 1 unit Levothyroxine Sodium (Synthroid) 125 mcg PO DAILY@0600 [facility] Last Admin: 04/16/18 05:52 Dose: 125 mcg Magnesium Oxide (Mag-Ox) 400 mg PO QID [facility] Last Admin: 04/16/18 13:36 Dose: 400 mg Miscellaneous Information [place] [place] Info) 0 each OTHER ONCE ONE Stop: 04/17/18 12:46 Morphine Sulfate (Morphine Inj) 2 mg IV.PUSH Q3H PRN PRN Reason: BREAKTHROUGH PAIN Last Admin: 04/13/18 17:37 Dose: 2 mg Naloxone HCl (Narcan Inj) 0.4 mg IV.PUSH UNSCH PRN PRN Reason: SEE LABEL COMMENTS Pantoprazole Sodium (Protonix Inj) 40 mg IV.PUSH BID [facility] Last Admin: 04/16/18 08:23 Dose: 40 mg Pharmacy Profile Note (Vancomycin Consult Pharmacy) 1 each OTHER UNSCH PRN PRN Reason: Pharmacy to dose Polyethylene Glycol (Miralax) 17 gm PO DAILY [facility] Last Admin: 04/16/18 08:23 Dose: 17 gm Potassium Phos/Sodium Phos (K-Phos Neutral) 250 mg PO QID [facility] Last Admin: 04/16/18 13:38 Dose: 250 mg Pravastatin Sodium (Pravachol) 40 mg PO DAILY [facility] Last Admin: 04/16/18 08:22 Dose: 40 mg Sodium Chloride (Ns Flush) 2 ml IV.FLUSH BID [facility] Last Admin: 04/16/18 08:23 Dose: 2 ml Sodium Chloride (Ns Flush) 2 ml IV.FLUSH PRN PRN PRN Reason: FLUSH AFTER USING IV ACCESS Sodium Chloride (Sodium Chloride) 1 gm PO TID [facility] Last Admin: 04/16/18 13:38 Dose: 1 gm Allergies Allergy/AdvReac Type Severity Reaction Status Date / Time No Known Allergies Allergy Verified 04/08/18 12:35 Home Medications Medication Instructions Recorded Confirmed Type Lactobacillus acidoph-L.bulgar 1 tab PO DAILY 04/08/18 04/11/18 History [Floranex] amiodarone 200 mg PO DAILY 04/08/18 04/11/18 History diltiazem HCl 30 mg PO TID 04/08/18 04/11/18 History ferrous sulfate 325 mg PO TID 04/08/18 04/11/18 History gabapentin 300 mg PO TID 04/08/18 04/11/18 History glipizide 10 mg PO BID 04/08/18 04/11/18 History hydrocodone-acetaminophen 1 tab PO Q6H 04/08/18 04/11/18 History levothyroxine 125 mcg PO DAILY 04/08/18 04/11/18 History magnesium oxide 400 mg PO QID 04/08/18 04/11/18 History meloxicam 7.5 mg PO DAILY 04/08/18 04/11/18 History pravastatin 40 mg PO DAILY 04/08/18 04/11/18 History ranitidine HCl 300 mg PO DAILY 04/08/18 04/11/18 History sitagliptin [Januvia] 100 mg PO DAILY 04/08/18 04/11/18 History sod phos di, mono-K phos mono 1 tab PO QID 04/08/18 04/11/18 History [Phospha 250 Neutral] sodium chloride 1,000 mg PO TID 04/08/18 04/11/18 History ascorbic acid (vitamin C) [Vitamin 500 mg PO BID 04/11/18 04/11/18 History C] insulin aspart U-100 [Novolog 1 - 10 units SUBCUT DIRECTED 04/11/18 04/11/18 History U-100 Insulin aspart] Exam Vital signs: Vital Signs 04/15/18 16:00 04/15/18 20:00 04/16/18 00:00 Temperature 97.6 F 98.1 F 97.7 F Pulse Rate 67 69 56 L Respiratory Rate 18 17 17 Blood Pressure 109/52 L 129/63 121/60 Pulse Oximetry 97 97 99 04/16/18 04:00 04/16/18 08:00 04/16/18 08:20 Temperature 97.9 F 98.3 F Pulse Rate 66 63 Respiratory Rate 18 18 16 Blood Pressure 116/68 140/63 Pulse Oximetry 96 98 04/16/18 09:00 04/16/18 11:00 Temperature Pulse Rate 64 Respiratory Rate 16 Blood Pressure Pulse Oximetry Intake & Output 04/15/18 04/16/18 04/16/18 18:59 06:59 18:59 Intake Total 988.5 / 988.5 Output Total 975 / 975 Balance 13.5 / 13.5 Weight 60.1 kg Intake: IV 508.5 / 508.5 Vancomycin Inj 1,000 MG In NS 250 / 250 Inj 250 ML @ 250 mls/hr IV.SIG Q18H [facility] Rx#:[id number] Vancomycin Inj 850 MG In NS Inj 258.5 / 258.5 250 ML @ 250 mls/hr IV.SIG Q12H [facility] Rx#:[id number] Oral 480 / 480 Output: Urine 975 / 975 Other: Date of Last Bowel Movement 04/15/18 04/15/18 Narrative: Physical examination GENERAL: Patient is a well-nourished, well-developed male, awake and alert, not in respiratory distress. SKIN: Cool and dry. No generalized rash. Has some scattered ecchymoses in his UE. HEAD: Atraumatic. Normocephalic. No temporal wasting, or tenderness. EYES: [place] conjunctiva. No petechia or hemorrhage. Extraocular movements full and intact. No scleral icterus. No injection or drainage. EARS, NOSE AND THROAT: Nose without bleeding or purulent nasal discharge. No sinus tenderness. Mucous membranes pink and moist. No oral lesions noted. No exudate. No oral thrush. NECK: Trachea midline. Supple and not tender, no meningeal signs CARDIOVASCULAR: Regular rate and rhythm. No murmurs, rubs or gallops heard RESPIRATORY: Clear to auscultation. Breath sounds equal bilaterally. No rales , wheezing or rhonchi ABDOMEN: Soft, non-tender, nondistended. Bowel sounds present and normoactive. No guarding. No rebound. No organomegaly. EXTREMITIES: No clubbing, cyanosis, or edema. R foot - there is a necrotic wound in posterior heel and Achilles area with foul ofor. Has surrounding erythema and bogginess. No calf tenderness. R foot cooler compared to the L foot LINE: No evidence of infection Results - Labs CBC & Chem 7: 04/17/18 07:27 04/16/18 06:10 Labs: Laboratory Results - last 24 hr 04/14/18 04/14/18 04/15/18 18:09 20:42 13:30 WBC RBC Hgb Hct MCV MCH MCHC RDW Plt Count MPV Prelim Diff (Auto) Neut % (Auto) Lymph % (Auto) [place] % (Auto) Eos % (Auto) Baso % (Auto) Neut # (Auto) Lymph # (Auto) [place] # (Auto) Eos # (Auto) Baso # (Auto) WBC Differential Seg Neuts % (Manual) Band Neuts % (Manual) Lymphocytes % (Manual) Monocytes % (Manual) Eosinophils % (Manual) Basophils % (Manual) Myelocytes % (Man) Abs Neuts (Manual) Differential Comment Toxic Granulation Platelet Estimate Platelet Morphology Creatinine Estimated GFR POC Glucose 160 H 254 H Vancomycin Trough 7.3 04/15/18 04/15/18 04/16/18 18:42 21:41 06:10 WBC RBC Hgb Hct MCV MCH MCHC RDW Plt Count MPV Prelim Diff (Auto) Neut % (Auto) Lymph % (Auto) [place] % (Auto) Eos % (Auto) Baso % (Auto) Neut # (Auto) Lymph # (Auto) [place] # (Auto) Eos # (Auto) Baso # (Auto) WBC Differential Seg Neuts % (Manual) Band Neuts % (Manual) Lymphocytes % (Manual) Monocytes % (Manual) Eosinophils % (Manual) Basophils % (Manual) Myelocytes % (Man) Abs Neuts (Manual) Differential Comment Toxic Granulation Platelet Estimate Platelet Morphology Creatinine 0.56 L Estimated GFR Greater than 89 POC Glucose 325 H 168 H Vancomycin Trough 04/16/18 04/16/18 04/16/18 06:10 08:07 11:39 WBC 10.6 RBC 2.74 L Hgb 8.6 L Hct 25.6 L MCV 93.4 MCH 31.5 MCHC 33.8 RDW 15.4 Plt Count 479 H MPV 6.3 L Prelim Diff (Auto) Slide review pending Neut % (Auto) 72.8 H Lymph % (Auto) 13.1 [place] % (Auto) 9.5 H Eos % (Auto) 3.3 Baso % (Auto) 1.3 Neut # (Auto) 7.7 Lymph # (Auto) 1.4 [place] # (Auto) 1.0 H Eos # (Auto) 0.4 Baso # (Auto) 0.1 WBC Differential Manual diff final Seg Neuts % (Manual) 73 H Band Neuts % (Manual) 6 Lymphocytes % (Manual) 12 Monocytes % (Manual) 5 Eosinophils % (Manual) 2 Basophils % (Manual) 1 Myelocytes % (Man) 1 H Abs Neuts (Manual) 8.5 H Differential Comment . Toxic Granulation 2+ H Platelet Estimate High H Platelet Morphology Normal Creatinine Estimated GFR POC Glucose 156 H 154 H Vancomycin Trough - Imaging Impressions Ankle MRI 04/15/18 00:00 CONCLUSION: 1. Osteomyelitis of the posterior calcaneus with a near complete tear of the distal Achilles tendon. There is overlying cellulitis and subcutaneous edema with a small abscess adjacent to the distal Achilles tendon as measured above. There is edematous change on the plantar aspect of the foot with a tenosynovitis as above. No acute fracture identified. Mild bone edema tibia, nonspecific. Ankle X-Ray 04/15/18 00:00 CONCLUSION: Osteomyelitis of the posterior calcaneus with overlying soft tissue swelling and ulceration. No acute fracture. Assessment and Plan - Plan Impression Non-healing wound R heel/achilles area with abscess and osteo posterior calcaneus PVD S/P revascularization RLE GIB Recommendation Continue IV Vanco Restart Zosyn Get C/S from the R heel wound Podiatry following - needs minimum debridement of infected wound Follow C/S Monitor progress I will make further recommendation once work-up is completed and depending on surgical intervention that will be done I will follow along with you Thank you for this consultation Explained plan to the patient and answered all his questions
--- NOTE | 2018-04-16 15:08 | P.PNPOD ---
Subjective Interval history: RLE wound Seen at bedside this pm. Physical Exam Vital signs: Vital Signs 04/15/18 16:00 04/15/18 20:00 04/16/18 00:00 Temperature 97.6 F 98.1 F 97.7 F Pulse Rate 67 69 56 L Respiratory Rate 18 17 17 Blood Pressure 109/52 L 129/63 121/60 Pulse Oximetry 97 97 99 04/16/18 04:00 04/16/18 08:00 04/16/18 08:20 Temperature 97.9 F 98.3 F Pulse Rate 66 63 Respiratory Rate 18 18 16 Blood Pressure 116/68 140/63 Pulse Oximetry 96 98 04/16/18 09:00 04/16/18 11:00 Temperature Pulse Rate 64 Respiratory Rate 16 Blood Pressure Pulse Oximetry Intake & Output 04/15/18 04/16/18 04/16/18 18:59 06:59 18:59 Intake Total 988.5 / 988.5 Output Total 975 / 975 Balance 13.5 / 13.5 Weight 60.1 kg Intake: IV 508.5 / 508.5 Vancomycin Inj 1,000 MG In NS 250 / 250 Inj 250 ML @ 250 mls/hr IV.SIG Q18H [facility] Rx#:[id number] Vancomycin Inj 850 MG In NS Inj 258.5 / 258.5 250 ML @ 250 mls/hr IV.SIG Q12H [facility] Rx#:[id number] Oral 480 / 480 Output: Urine 975 / 975 Other: Date of Last Bowel Movement 04/15/18 04/15/18 Narrative: RLE Intact dressing No strikethrough NVS unchanged. Medications and Allergies Active Medications: Active Medications Acetaminophen (Tylenol) 650 mg PO Q6HR PRN PRN Reason: PAIN SCALE 1 TO 2 Hydrocodone Bitart/Acetaminophen ([place] 5/325) 1 tab PO Q6H [facility] Last Admin: 04/16/18 14:47 Dose: 1 tab Hydrocodone Bitart/Acetaminophen ([place] 7.5/325) 1 tab PO Q4H PRN PRN Reason: PAIN SCALE 6 TO 10 Last Admin: 04/16/18 06:11 Dose: 1 tab Amiodarone HCl (Cordarone) 200 mg PO DAILY [facility] Last Admin: 04/16/18 08:23 Dose: 200 mg Ascorbic Acid (Vitamin C) 500 mg PO BID [facility] Last Admin: 04/16/18 08:23 Dose: 500 mg Collagenase (Santyl Oint) 1 applicatio TOPICAL DAILY [facility] Last Admin: 04/16/18 08:24 Dose: 1 applicatio Dextrose (D50w Vial) 50 ml IV.PUSH UNSCH PRN PRN Reason: PER HYPOGLYCEMIA PROTOCOL Last Admin: 04/12/18 06:49 Dose: 50 ml Diltiazem HCl (Cardizem) 30 mg PO TID [facility] Last Admin: 04/16/18 13:38 Dose: 30 mg Ferrous Sulfate (Ferosul) 325 mg PO TID [facility] Last Admin: 04/16/18 13:37 Dose: 325 mg Gabapentin (Neurontin) 300 mg PO TID [facility] Last Admin: 04/16/18 13:37 Dose: 300 mg Gentamicin Sulfate (Gentamicin 0.1% Cream) 1 applicatio TOPICAL BID [facility] Last Admin: 04/16/18 08:24 Dose: 1 applicatio Glucagon (Glucagon Inj) 1 mg OTHER PRN PRN PRN Reason: for Hypoglycemia Protocol Sodium Chloride (Ns Inj) 500 mls @ 30 mls/hr IV.SIG .Q10H [facility] Last Admin: 04/12/18 02:14 Dose: Not Given Vancomycin HCl 850 mg/ Sodium (Chloride) 258.5 mls @ 250 mls/hr IV.SIG Q12H [facility] Last Admin: 04/16/18 13:38 Dose: 250 mls/hr Piperacillin/Tazobactam/Dextrose (Zosyn 3.375 Gm Premix) 50 mls @ 100 mls/hr IV.SIG Q6H [facility] Insulin Aspart (Novolog Insulin Correctional Sugar Inj) 0 unit SQ ACHS [facility]; Protocol Last Admin: 04/16/18 11:48 Dose: 1 unit Levothyroxine Sodium (Synthroid) 125 mcg PO DAILY@0600 [facility] Last Admin: 04/16/18 05:52 Dose: 125 mcg Magnesium Oxide (Mag-Ox) 400 mg PO QID [facility] Last Admin: 04/16/18 13:36 Dose: 400 mg Miscellaneous Information ([facility] [place] [facility] Ordered Lab Info) 0 each OTHER ONCE ONE Stop: 04/17/18 12:46 Morphine Sulfate (Morphine Inj) 2 mg IV.PUSH Q3H PRN PRN Reason: BREAKTHROUGH PAIN Last Admin: 04/13/18 17:37 Dose: 2 mg Naloxone HCl (Narcan Inj) 0.4 mg IV.PUSH UNSCH PRN PRN Reason: SEE LABEL COMMENTS Pantoprazole Sodium (Protonix Inj) 40 mg IV.PUSH BID [facility] Last Admin: 04/16/18 08:23 Dose: 40 mg Pharmacy Profile Note (Vancomycin Consult Pharmacy) 1 each OTHER UNSCH PRN PRN Reason: Pharmacy to dose Polyethylene Glycol (Miralax) 17 gm PO DAILY [facility] Last Admin: 04/16/18 08:23 Dose: 17 gm Potassium Phos/Sodium Phos (K-Phos Neutral) 250 mg PO QID [facility] Last Admin: 04/16/18 13:38 Dose: 250 mg Pravastatin Sodium (Pravachol) 40 mg PO DAILY [facility] Last Admin: 04/16/18 08:22 Dose: 40 mg Sodium Chloride (Ns Flush) 2 ml IV.FLUSH BID [facility] Last Admin: 04/16/18 08:23 Dose: 2 ml Sodium Chloride (Ns Flush) 2 ml IV.FLUSH PRN PRN PRN Reason: FLUSH AFTER USING IV ACCESS Sodium Chloride (Sodium Chloride) 1 gm PO TID [facility] Last Admin: 04/16/18 13:38 Dose: 1 gm Allergies Allergy/AdvReac Type Severity Reaction Status Date / Time No Known Allergies Allergy Verified 04/08/18 12:35 Home Medications Medication Instructions Recorded Confirmed Type Lactobacillus acidoph-L.bulgar 1 tab PO DAILY 04/08/18 04/11/18 History [Floranex] amiodarone 200 mg PO DAILY 04/08/18 04/11/18 History diltiazem HCl 30 mg PO TID 04/08/18 04/11/18 History ferrous sulfate 325 mg PO TID 04/08/18 04/11/18 History gabapentin 300 mg PO TID 04/08/18 04/11/18 History glipizide 10 mg PO BID 04/08/18 04/11/18 History hydrocodone-acetaminophen 1 tab PO Q6H 04/08/18 04/11/18 History levothyroxine 125 mcg PO DAILY 04/08/18 04/11/18 History magnesium oxide 400 mg PO QID 04/08/18 04/11/18 History meloxicam 7.5 mg PO DAILY 04/08/18 04/11/18 History pravastatin 40 mg PO DAILY 04/08/18 04/11/18 History ranitidine HCl 300 mg PO DAILY 04/08/18 04/11/18 History sitagliptin [Januvia] 100 mg PO DAILY 04/08/18 04/11/18 History sod phos di, mono-K phos mono 1 tab PO QID 04/08/18 04/11/18 History [Phospha 250 Neutral] sodium chloride 1,000 mg PO TID 04/08/18 04/11/18 History ascorbic acid (vitamin C) [Vitamin 500 mg PO BID 04/11/18 04/11/18 History C] insulin aspart U-100 [Novolog 1 - 10 units SUBCUT DIRECTED 04/11/18 04/11/18 History U-100 Insulin aspart] Results - Labs CBC & Chem 7: 04/16/18 06:10 04/16/18 06:10 Laboratory Results - last 24 hr 04/14/18 04/14/18 04/15/18 18:09 20:42 18:42 WBC RBC Hgb Hct MCV MCH MCHC RDW Plt Count MPV Prelim Diff (Auto) Neut % (Auto) Lymph % (Auto) [place] % (Auto) Eos % (Auto) Baso % (Auto) Neut # (Auto) Lymph # (Auto) [place] # (Auto) Eos # (Auto) Baso # (Auto) WBC Differential Seg Neuts % (Manual) Band Neuts % (Manual) Lymphocytes % (Manual) Monocytes % (Manual) Eosinophils % (Manual) Basophils % (Manual) Myelocytes % (Man) Abs Neuts (Manual) Differential Comment Toxic Granulation Platelet Estimate Platelet Morphology Creatinine Estimated GFR POC Glucose 160 H 254 H 325 H 04/15/18 04/16/18 04/16/18 21:41 06:10 06:10 WBC 10.6 RBC 2.74 L Hgb 8.6 L Hct 25.6 L MCV 93.4 MCH 31.5 MCHC 33.8 RDW 15.4 Plt Count 479 H MPV 6.3 L Prelim Diff (Auto) Slide review pending Neut % (Auto) 72.8 H Lymph % (Auto) 13.1 [place] % (Auto) 9.5 H Eos % (Auto) 3.3 Baso % (Auto) 1.3 Neut # (Auto) 7.7 Lymph # (Auto) 1.4 [place] # (Auto) 1.0 H Eos # (Auto) 0.4 Baso # (Auto) 0.1 WBC Differential Manual diff final Seg Neuts % (Manual) 73 H Band Neuts % (Manual) 6 Lymphocytes % (Manual) 12 Monocytes % (Manual) 5 Eosinophils % (Manual) 2 Basophils % (Manual) 1 Myelocytes % (Man) 1 H Abs Neuts (Manual) 8.5 H Differential Comment . Toxic Granulation 2+ H Platelet Estimate High H Platelet Morphology Normal Creatinine 0.56 L Estimated GFR Greater than 89 POC Glucose 168 H 04/16/18 04/16/18 08:07 11:39 WBC RBC Hgb Hct MCV MCH MCHC RDW Plt Count MPV Prelim Diff (Auto) Neut % (Auto) Lymph % (Auto) [place] % (Auto) Eos % (Auto) Baso % (Auto) Neut # (Auto) Lymph # (Auto) [place] # (Auto) Eos # (Auto) Baso # (Auto) WBC Differential Seg Neuts % (Manual) Band Neuts % (Manual) Lymphocytes % (Manual) Monocytes % (Manual) Eosinophils % (Manual) Basophils % (Manual) Myelocytes % (Man) Abs Neuts (Manual) Differential Comment Toxic Granulation Platelet Estimate Platelet Morphology Creatinine Estimated GFR POC Glucose 156 H 154 H Microbiology 04/11/18 13:45 Blood - Peripheral Aerobic Blood Culture - Final No growth in 5 days 04/11/18 13:45 Blood - Peripheral Anaerobic Blood Culture - Final No growth in 5 days 04/11/18 13:50 Blood - Peripheral Aerobic Blood Culture - Final No growth in 5 days 04/11/18 13:50 Blood - Peripheral Anaerobic Blood Culture - Final No growth in 5 days - Imaging Impressions Ankle MRI 04/15/18 00:00 CONCLUSION: 1. Osteomyelitis of the posterior calcaneus with a near complete tear of the distal Achilles tendon. There is overlying cellulitis and subcutaneous edema with a small abscess adjacent to the distal Achilles tendon as measured above. There is edematous change on the plantar aspect of the foot with a tenosynovitis as above. No acute fracture identified. Mild bone edema tibia, nonspecific. Ankle X-Ray 04/15/18 00:00 CONCLUSION: Osteomyelitis of the posterior calcaneus with overlying soft tissue swelling and ulceration. No acute fracture. Assessment and Plan - Plan Reviewed right ankle MRI : OM at the calcaneus Discussed surgical intervention with patient. Dr Major will begin coverage 04/17/18 Continue with daily dressing change.
--- NOTE | 2018-04-16 15:14 | P.PNFP ---
Subjective Interval history: 87 yo male with DM initially admitted for symptomatic anemia due to presumed GIB now found to have osteomyelitis of the right ankle. Seen today for follow up of these issues. His fatigue from admission is overall much improved. Still noting darker stools, no diarrhea or abdominal pain. He notes moderate to severe pain in both his feet especially the right ankle (site of osteomyelitis). He also has some pain in his left hip. Other than this has no concerns and specifically notes no chest pain or shortness of breath. <Ihsan Ramirez S - 04/16/18 15:13> Results - Labs Result diagrams: 04/16/18 06:10 04/16/18 06:10 <Saji Johnson - 04/16/18 16:04> Abnormal lab results 04/15/18 04/15/18 04/16/18 Range/Units 18:42 21:41 06:10 RBC (4.50-5.90) mil/mm3 Hgb (13.0-17.0) gm/dL Hct (39.0-51.0) % Plt Count (150-450) th/mm3 MPV (7.0-11.0) fL Neut % (Auto) (16.0-70.0) % [place] % (Auto) (0.0-8.0) % [place] # (Auto) (0.0-0.9) th/mm3 Seg Neuts % (Manual) (16-70) % Myelocytes % (Man) (0-0) % Abs Neuts (Manual) (1.8-7.7) th/mm3 Toxic Granulation (None) Platelet Estimate (Normal) Creatinine 0.56 L (0.60-1.30) mg/dL POC Glucose 325 H 168 H (68-110) mg/dl 04/16/18 04/16/18 04/16/18 Range/Units 06:10 08:07 11:39 RBC 2.74 L (4.50-5.90) mil/mm3 Hgb 8.6 L (13.0-17.0) gm/dL Hct 25.6 L (39.0-51.0) % Plt Count 479 H (150-450) th/mm3 MPV 6.3 L (7.0-11.0) fL Neut % (Auto) 72.8 H (16.0-70.0) % [place] % (Auto) 9.5 H (0.0-8.0) % [place] # (Auto) 1.0 H (0.0-0.9) th/mm3 Seg Neuts % (Manual) 73 H (16-70) % Myelocytes % (Man) 1 H (0-0) % Abs Neuts (Manual) 8.5 H (1.8-7.7) th/mm3 Toxic Granulation 2+ H (None) Platelet Estimate High H (Normal) Creatinine (0.60-1.30) mg/dL POC Glucose 156 H 154 H (68-110) mg/dl Short CBC 04/16/18 Range/Units 06:10 WBC 10.6 (4.0-11.0) th/mm3 Hgb 8.6 L (13.0-17.0) gm/dL Hct 25.6 L (39.0-51.0) % Plt Count 479 H (150-450) th/mm3 BMP 04/16/18 06:10 Creatinine 0.56 L <Young,Saji L - 04/16/18 16:04> Abnormal lab results 04/14/18 04/14/18 04/15/18 Range/Units 18:09 20:42 18:42 RBC (4.50-5.90) mil/mm3 Hgb (13.0-17.0) gm/dL Hct (39.0-51.0) % Plt Count (150-450) th/mm3 MPV (7.0-11.0) fL Neut % (Auto) (16.0-70.0) % [place] % (Auto) (0.0-8.0) % [place] # (Auto) (0.0-0.9) th/mm3 Seg Neuts % (Manual) (16-70) % Myelocytes % (Man) (0-0) % Abs Neuts (Manual) (1.8-7.7) th/mm3 Toxic Granulation (None) Platelet Estimate (Normal) Creatinine (0.60-1.30) mg/dL POC Glucose 160 H 254 H 325 H (68-110) mg/dl 04/15/18 04/16/18 04/16/18 Range/Units 21:41 06:10 06:10 RBC 2.74 L (4.50-5.90) mil/mm3 Hgb 8.6 L (13.0-17.0) gm/dL Hct 25.6 L (39.0-51.0) % Plt Count 479 H (150-450) th/mm3 MPV 6.3 L (7.0-11.0) fL Neut % (Auto) 72.8 H (16.0-70.0) % [place] % (Auto) 9.5 H (0.0-8.0) % [place] # (Auto) 1.0 H (0.0-0.9) th/mm3 Seg Neuts % (Manual) 73 H (16-70) % Myelocytes % (Man) 1 H (0-0) % Abs Neuts (Manual) 8.5 H (1.8-7.7) th/mm3 Toxic Granulation 2+ H (None) Platelet Estimate High H (Normal) Creatinine 0.56 L (0.60-1.30) mg/dL POC Glucose 168 H (68-110) mg/dl 04/16/18 04/16/18 Range/Units 08:07 11:39 RBC (4.50-5.90) mil/mm3 Hgb (13.0-17.0) gm/dL Hct (39.0-51.0) % Plt Count (150-450) th/mm3 MPV (7.0-11.0) fL Neut % (Auto) (16.0-70.0) % [place] % (Auto) (0.0-8.0) % [place] # (Auto) (0.0-0.9) th/mm3 Seg Neuts % (Manual) (16-70) % Myelocytes % (Man) (0-0) % Abs Neuts (Manual) (1.8-7.7) th/mm3 Toxic Granulation (None) Platelet Estimate (Normal) Creatinine (0.60-1.30) mg/dL POC Glucose 156 H 154 H (68-110) mg/dl Short CBC 04/16/18 Range/Units 06:10 WBC 10.6 (4.0-11.0) th/mm3 Hgb 8.6 L (13.0-17.0) gm/dL Hct 25.6 L (39.0-51.0) % Plt Count 479 H (150-450) th/mm3 BMP 04/16/18 06:10 Creatinine 0.56 L <Ihsan Ramirez S - 04/16/18 15:13> - Imaging Impressions Ankle MRI 04/15/18 00:00 CONCLUSION: 1. Osteomyelitis of the posterior calcaneus with a near complete tear of the distal Achilles tendon. There is overlying cellulitis and subcutaneous edema with a small abscess adjacent to the distal Achilles tendon as measured above. There is edematous change on the plantar aspect of the foot with a tenosynovitis as above. No acute fracture identified. Mild bone edema tibia, nonspecific. Ankle X-Ray 04/15/18 00:00 CONCLUSION: Osteomyelitis of the posterior calcaneus with overlying soft tissue swelling and ulceration. No acute fracture. <Saji Johnson L - 04/16/18 16:04> Impressions Ankle MRI 04/15/18 00:00 CONCLUSION: 1. Osteomyelitis of the posterior calcaneus with a near complete tear of the distal Achilles tendon. There is overlying cellulitis and subcutaneous edema with a small abscess adjacent to the distal Achilles tendon as measured above. There is edematous change on the plantar aspect of the foot with a tenosynovitis as above. No acute fracture identified. Mild bone edema tibia, nonspecific. Ankle X-Ray 04/15/18 00:00 CONCLUSION: Osteomyelitis of the posterior calcaneus with overlying soft tissue swelling and ulceration. No acute fracture. <Ihsan Ramirez S - 04/16/18 15:13> Physical Exam Vital signs: Vital Signs 04/15/18 20:00 04/16/18 00:00 04/16/18 04:00 Temperature 98.1 F 97.7 F 97.9 F Pulse Rate 69 56 L 66 Respiratory Rate 17 17 18 Blood Pressure 129/63 121/60 116/68 Pulse Oximetry 97 99 96 04/16/18 08:00 04/16/18 08:20 04/16/18 09:00 Temperature 98.3 F Pulse Rate 63 64 Respiratory Rate 18 16 Blood Pressure 140/63 Pulse Oximetry 98 04/16/18 11:00 Temperature Pulse Rate Respiratory Rate 16 Blood Pressure Pulse Oximetry Intake & Output 04/15/18 04/16/18 04/16/18 18:59 06:59 18:59 Intake Total 988.5 / 988.5 258.5 / 258.5 Output Total 975 / 975 Balance 13.5 / 13.5 258.5 / 258.5 Weight 60.1 kg Intake: IV 508.5 / 508.5 258.5 / 258.5 Vancomycin Inj 1,000 MG In NS 250 / 250 Inj 250 ML @ 250 mls/hr IV.SIG Q18H ACE Rx#:[id number] Vancomycin Inj 850 MG In NS Inj 258.5 / 258.5 258.5 / 258.5 250 ML @ 250 mls/hr IV.SIG Q12H ACE Rx#:[id number] Oral 480 / 480 Output: Urine 975 / 975 Other: Date of Last Bowel Movement 04/15/18 04/15/18 <Saji Johnson L - 04/16/18 16:04> Vital Signs 04/15/18 16:00 04/15/18 20:00 04/16/18 00:00 Temperature 97.6 F 98.1 F 97.7 F Pulse Rate 67 69 56 L Respiratory Rate 18 17 17 Blood Pressure 109/52 L 129/63 121/60 Pulse Oximetry 97 97 99 04/16/18 04:00 04/16/18 08:00 04/16/18 08:20 Temperature 97.9 F 98.3 F Pulse Rate 66 63 Respiratory Rate 18 18 16 Blood Pressure 116/68 140/63 Pulse Oximetry 96 98 04/16/18 09:00 04/16/18 11:00 Temperature Pulse Rate 64 Respiratory Rate 16 Blood Pressure Pulse Oximetry Intake & Output 04/15/18 04/16/18 04/16/18 18:59 06:59 18:59 Intake Total 988.5 / 988.5 Output Total 975 / 975 Balance 13.5 / 13.5 Weight 60.1 kg Intake: IV 508.5 / 508.5 Vancomycin Inj 1,000 MG In NS 250 / 250 Inj 250 ML @ 250 mls/hr IV.SIG Q18H ACE Rx#:[id number] Vancomycin Inj 850 MG In NS Inj 258.5 / 258.5 250 ML @ 250 mls/hr IV.SIG Q12H ACE Rx#:[id number] Oral 480 / 480 Output: Urine 975 / 975 Other: Date of Last Bowel Movement 04/15/18 04/15/18 <Ihsan Ramirez S - 04/16/18 15:13> - Constitutional no acute distress, average body habitus, cooperative <Ihsan Ramirez S - 15:13> - Routine HEENT Exam Head: Present: normocephalic, atraumatic <Ihsan Ramirez S - 04/16/18 15:13> - Routine Respiratory Exam Present: CTA bilaterally. Absent: accessory muscle use, wheezes, crackles < Ihsan Ramirez S - 04/16/18 15:13> - Routine Cardiovascular Exam Present: RRR, S1, S2. Absent: murmur <Ihsan Ramirez S - 04/16/18 15:13> - Routine Abdominal Exam Present: soft. Absent: tenderness, distended <Ihsan Ramirez S - 04/16/18 15:13 > - Routine Extremities Exam Absent: cyanosis, edema <Ihsan Ramirez S - 04/16/18 15:13> Comments: DP pulses non-palpable bilaterally <Ihsan Ramirez S - 04/16/18 15:13> - Routine Skin Exam Present: wounds (ulcers of bilateral ankles, left more shallow, right deeper and larger approx 8 cm area, covered in dressings which are clean and dry) < Ihsan Ramirez S - 04/16/18 15:13> - Urinary Catheter Management Condom Cath placed during this visit: no <Saji Johnson L - 04/16/18 16:04> no <Ihsan Ramirez S 04/16/18 15:13> Reason for continuing: Not indwelling catheter <Ihsan Ramirez S 04/16/18 15: 13> Indwelling Urethral Catheter Cath placed during this visit: no <Saji Johnson L - 04/16/18 16:04> yes, but has since been removed by the nurse <Ihsan Ramirez S - 04/16/18 15:13> Reason for continuing: Not indwelling catheter <Ihsan Ramirez S - 04/16/18 15: 13> Insertion date: 04/11/18 <Ihsan Ramirez S - 04/16/18 15:13> Insertion time: 21:08 <Ihsan Ramirez S - 04/16/18 15:13> Removal date: 04/12/18 <Hood Ramirezy S - 04/16/18 15:13> Removal time: 11:35 <Ihsan Ramirez - 04/16/18 15:13> Straight Cath placed during this visit: no <Saji Johnson - 04/16/18 16:04> yes <Ihsan Ramirez - 04/16/18 15:13> Reason for continuing: Other continuation reason <Ihsan Ramirez - 04/16/18 15 :13> Insertion date: 04/11/18 <Ihsan Ramirez - 04/16/18 15:13> Insertion time: 21:08 <Ihsan Ramirez - 04/16/18 15:13> Assessment and Plan - Assessment (1) Osteomyelitis of ankle Code(s): M86.9 - Osteomyelitis, unspecified Status: Acute (2) Chronic wound of extremity Status: Acute (3) MRSA (methicillin resistant staph aureus) culture positive Code(s): Z22.322 - Carrier or suspected carrier of Methicillin resistant Staphylococcus aureus Status: Acute (4) GI bleed Code(s): K92.2 - Gastrointestinal hemorrhage, unspecified Status: Acute (5) PAD (peripheral artery disease) Code(s): I73.9 - Peripheral vascular disease, unspecified Status: Chronic (6) Bandemia Code(s): D72.825 - Bandemia Status: Acute (7) Hydronephrosis Code(s): N13.30 - Unspecified hydronephrosis Status: Acute (8) HTN (hypertension) Code(s): I10 - Essential (primary) hypertension Status: Acute (9) Diabetes Code(s): E11.9 - Type 2 diabetes mellitus without complications Status: Acute (10) Acute blood loss anemia Code(s): D62 - Acute posthemorrhagic anemia Status: Resolved (11) Malnutrition Code(s): E46 - Unspecified protein-calorie malnutrition Status: Acute (12) Anisocoria Code(s): H57.02 - Anisocoria Status: Acute (13) Nutrition, metabolism, and development symptoms Code(s): R63.8 - Other symptoms and signs concerning food and fluid intake Status: Acute <Saji Johnson - 04/16/18 16:04> (1) Osteomyelitis of ankle Code(s): M86.9 - Osteomyelitis, unspecified Status: Acute Plan: MRI showed evidence of osteomyelitis of right ankle which likely has been brewing for some time in this diabetic patient with chronic lower-extremity non- healing ulcers Culture positive for MRSA at different site (right thigh wound) Wound Cx of right ankle ordered and pending WBC normal Blood cultures negative Afebrile * Podiatry following, appreciate assistance; will f/u recommendations for likely surgical intervention * ID consulted, appreciate recs * Continue vancomycin * Resume Zosyn * F/u wound culture right ankle * Recommend minimum debridement by podiatry * Further recs to follow * Wound care consulted, appreciate recs * See plan below (2) Chronic wound of extremity Status: Acute Plan: Patient currently follows up with wound care as an outpatient Right hip wound, super observant dressing daily Skin tear lower left extremity, Santyl covered and dry dressing daily Right heel wound, apply gentamicin cream twice daily, see above plan for associated osteomyelitis Wound care consulted, appreciate recommendations * Cleanse wound to R Achilles heel with normal saline only and pat dry. Apply gentamicin mixed with Santyl 50/ 50 and apply to wound bed * Cover with ABD pad, and secure with rolled gauze and tape. Change dressing daily, until seen by podiatry. * Cleanse wound to R hip with normal saline and pat dry. Apply Optilock dressing secured with paper tape Change PRN for saturation or dislodgement * Cleanse wound to L posterior lower leg with normal saline and pat dry. Apply optifoam gentle 4x4 dressing change dressing every 3 days or PRN if saturated or dislodged. (3) MRSA (methicillin resistant staph aureus) culture positive Code(s): Z22.322 - Carrier or suspected carrier of Methicillin resistant Staphylococcus aureus Status: Acute Plan: This patient suffers from chronic nonhealing wounds likely secondary to peripheral arterial disease and DM. Patient had wound from right thigh cultured which ultimately grew MRSA. -Monitor for fevers and signs of systemic illness -Antibiotic therapy as above (4) GI bleed Code(s): K92.2 - Gastrointestinal hemorrhage, unspecified Status: Acute Plan: Initially presented with anemia and dark stools EGD demonstrates mild gastritis in the gastric fundus, gastric body, and gastric antrum. Deformity was found the duodenal bulb. Normal duodenal mucosa in the second part of the duodenum and third part duodenum. Retroflex views revealed no abnormalities. Colonoscopy negative terminal ileum.: Significant amount of stool throughout the colon interfere with vision with small lesion, diverticular disease, no sign of active bleeding at this point. Rectum small ulcer in the rectum biopsy was done not actively bleeding GI on board, appreciated recommendations -Diabetic [id number] -Advised patient to follow-up with GI post discharge for biopsy results -Monitor labs -Monitor for bleeding and transfuse if required -Continue PPI -Bowel regimen -Supportive care -Further recommendations to follow (5) PAD (peripheral artery disease) Code(s): I73.9 - Peripheral vascular disease, unspecified Status: Chronic Plan: s/p recent right LE arterectomy. Per vascular surgery patient will need therapy for his peripheral arterial disease which will be commenced once source of bleeding is identified and treated. Will follow up outpatient with vascular surgery, unless podiatry recommends for consideration of acute intervention. (6) Bandemia Code(s): D72.825 - Bandemia Status: Acute Plan: Resolved, likely due to osteomyelitis. See above plan. (7) Hydronephrosis Code(s): N13.30 - Unspecified hydronephrosis Status: Acute Plan: Abdominal pelvis CT demonstrates development of moderate left hydronephrosis and hydroureter without ureteral obstruction. Also demonstrates stool ball in the rectum large amount of stool throughout the colon. Patient had a bladder scan 04/11 that revealed of a residual volume of 231 mL. Patient currently voiding well and is graded 200 mL of fluid today. Patient has no CVA tenderness. - Continue to monitor I's and O's. (8) HTN (hypertension) Code(s): I10 - Essential (primary) hypertension Status: Acute Plan: Continue Cardizem and amiodarone (9) Diabetes Code(s): E11.9 - Type 2 diabetes mellitus without complications Status: Acute Plan: Held home glipizide, Januvia Accu-Cheks Low-dose sliding scale Hypoglycemia protocol in place (10) Acute blood loss anemia Code(s): D62 - Acute posthemorrhagic anemia Status: Resolved Plan: In view of negative EGD/colonoscopy his present anemia is likely chronic -Monitor H/H -Consider iron replacement (11) Malnutrition Code(s): E46 - Unspecified protein-calorie malnutrition Status: Acute (12) Anisocoria Code(s): H57.02 - Anisocoria Status: Acute Plan: Most likely chronic in view of no other alarming ophthalmologic signs/symptoms Can follow up with Ophthalmology outpatient (13) Nutrition, metabolism, and development symptoms Code(s): R63.8 - Other symptoms and signs concerning food and fluid intake Status: Acute Plan: Fluids: P.o. hydration Diet: Regular diet Vitals every 4, monitor I's and O's DVT prophylaxis: Contraindicated due to upper GI bleed <Ihsan Ramirez S - 04/16/18 14:54> - Assessment and Plan Discharge Planning: Return to SNF pending treatment of osteomyelitis <Ihsan Ramirez S - 04/16/18 15:13> - Attending Attestation The exam, history, and the medical decision-making described in the above note were completed with the assistance of the resident physician. I reviewed and agree with the findings presented. I attest that I had a [id number] encounter with the patient on the same day, and personally performed and documented my assessment and findings in the medical record. Patient with osteomyelitis of the ankle secondary to diabetes and peripheral arterial disease. Podiatry, wound care, and infectious disease is on board. Receiving IV antibiotics. <Saji Johnson - 04/16/18 16:04> <Ihsan Ramirez S - Last Filed: 04/16/18 14:54> (1) Osteomyelitis of ankle Qualifiers: Osteomyelitis type: unspecified type Laterality: right Qualified Code(s): M86.9 - Osteomyelitis, unspecified (4) GI bleed Qualifiers: GI bleed type/associated pathology: unspecified gastrointestinal hemorrhage type Qualified Code(s): K92.2 - Gastrointestinal hemorrhage, unspecified (7) Hydronephrosis Qualifiers: Hydronephrosis type: unspecified Qualified Code(s): N13.30 - Unspecified hydronephrosis <Saji Johnson - Last Filed: 04/16/18 16:04> (1) Osteomyelitis of ankle Qualifiers: Osteomyelitis type: unspecified type Laterality: right Qualified Code(s): M86.9 - Osteomyelitis, unspecified (4) GI bleed Qualifiers: GI bleed type/associated pathology: unspecified gastrointestinal hemorrhage type Qualified Code(s): K92.2 - Gastrointestinal hemorrhage, unspecified (7) Hydronephrosis Qualifiers: Hydronephrosis type: unspecified Qualified Code(s): N13.30 - Unspecified hydronephrosis <Ihsan Ramirez - Last Filed: 04/16/18 14:54> (1) Osteomyelitis of ankle Qualifiers: Osteomyelitis type: unspecified type Laterality: right Qualified Code(s): M86.9 - Osteomyelitis, unspecified (4) GI bleed Qualifiers: GI bleed type/associated pathology: unspecified gastrointestinal hemorrhage type Qualified Code(s): K92.2 - Gastrointestinal hemorrhage, unspecified (7) Hydronephrosis Qualifiers: Hydronephrosis type: unspecified Qualified Code(s): N13.30 - Unspecified hydronephrosis <Saji Johnson - Last Filed: 04/16/18 16:04> (1) Osteomyelitis of ankle Qualifiers: Osteomyelitis type: unspecified type Laterality: right Qualified Code(s): M86.9 - Osteomyelitis, unspecified (4) GI bleed Qualifiers: GI bleed type/associated pathology: unspecified gastrointestinal hemorrhage type Qualified Code(s): K92.2 - Gastrointestinal hemorrhage, unspecified (7) Hydronephrosis Qualifiers: Hydronephrosis type: unspecified Qualified Code(s): N13.30 - Unspecified hydronephrosis
[2018-04-16] MEDS: Piperacil/Tazo 3.375 GM Premix 50 ML IV.SIG SCH ×2 (16:13→22:05)
[2018-04-17] MEDS: Vancomycin Inj 850 MG in Sodium Chlor 0.9% Inj 250 ML IV.SIG SCH ×2 (00:57→13:11)
[2018-04-17] MEDS: Piperacil/Tazo 3.375 GM Premix 50 ML IV.SIG SCH ×4 (03:27→22:17)
[2018-04-17] MEDS: Levothyroxine 125 MCG Tablet PO SCH (05:39)
[2018-04-17 08:10] LABS: Baso # (Auto) 0.2 th/mm3 (0.0-0.2); Baso % (Auto) 1.2 % (0.0-2.0); Eos # (Auto) 0.4 th/mm3 (0.0-0.4); Eos % (Auto) 2.9 % (0.0-4.0); Hematocrit 25.6 % (39.0-51.0); Hemoglobin 8.4 gm/dL (13.0-17.0); Lymph # (Auto) 1.5 th/mm3 (1.0-4.8); Lymph % (Auto) 11.7 % (9.0-44.0); Mean Corpuscular HGB Conc 32.8 % (32.0-36.0); Mean Corpuscular Volume 94.5 fL (80.0-100.0); Mean Platelet Volume 6.2 fL (7.0-11.0); Mono # (Auto) 1.1 th/mm3 (0.0-0.9); Mono % (Auto) 8.2 % (0.0-8.0); Platelet Count 468 th/mm3 (150-450); Red Blood Count 2.71 mil/mm3 (4.50-5.90); Red Cell Distribution Width 15.5 % (11.6-17.2); White Blood Count 13.2 th/mm3 (4.0-11.0)
--- NOTE | 2018-04-17 08:20 | P.PNFP ---
Subjective Interval history: Patient sitting up in bed, in pleasant mood. Complaining of significant pain in right foot. No chest pain, shortness of breath, abdominal pain, nausea, vomiting , diarrhea. Otherwise without complaints. Results - Labs Result diagrams: 04/17/18 07:27 04/16/18 06:10 Abnormal lab results 04/16/18 04/16/18 04/16/18 Range/Units 06:10 08:07 11:39 WBC (4.0-11.0) th/mm3 RBC (4.50-5.90) mil/mm3 Hgb (13.0-17.0) gm/dL Hct (39.0-51.0) % Plt Count (150-450) th/mm3 MPV (7.0-11.0) fL Neut % (Auto) (16.0-70.0) % [place] % (Auto) (0.0-8.0) % Neut # (Auto) (1.8-7.7) th/mm3 [place] # (Auto) (0.0-0.9) th/mm3 Seg Neuts % (Manual) 73 H (16-70) % Myelocytes % (Man) 1 H (0-0) % Abs Neuts (Manual) 8.5 H (1.8-7.7) th/mm3 Toxic Granulation 2+ H (None) Platelet Estimate High H (Normal) POC Glucose 156 H 154 H (68-110) mg/dl 04/16/18 04/16/18 04/17/18 Range/Units 16:16 20:38 07:27 WBC 13.2 H (4.0-11.0) th/mm3 RBC 2.71 L (4.50-5.90) mil/mm3 Hgb 8.4 L (13.0-17.0) gm/dL Hct 25.6 L (39.0-51.0) % Plt Count 468 H (150-450) th/mm3 MPV 6.2 L (7.0-11.0) fL Neut % (Auto) 76.0 H (16.0-70.0) % [place] % (Auto) 8.2 H (0.0-8.0) % Neut # (Auto) 10.0 H (1.8-7.7) th/mm3 [place] # (Auto) 1.1 H (0.0-0.9) th/mm3 Seg Neuts % (Manual) (16-70) % Myelocytes % (Man) (0-0) % Abs Neuts (Manual) (1.8-7.7) th/mm3 Toxic Granulation (None) Platelet Estimate (Normal) POC Glucose 287 H 180 H (68-110) mg/dl 04/17/18 Range/Units 07:33 WBC (4.0-11.0) th/mm3 RBC (4.50-5.90) mil/mm3 Hgb (13.0-17.0) gm/dL Hct (39.0-51.0) % Plt Count (150-450) th/mm3 MPV (7.0-11.0) fL Neut % (Auto) (16.0-70.0) % [place] % (Auto) (0.0-8.0) % Neut # (Auto) (1.8-7.7) th/mm3 [place] # (Auto) (0.0-0.9) th/mm3 Seg Neuts % (Manual) (16-70) % Myelocytes % (Man) (0-0) % Abs Neuts (Manual) (1.8-7.7) th/mm3 Toxic Granulation (None) Platelet Estimate (Normal) POC Glucose 194 H (68-110) mg/dl Short CBC 04/17/18 Range/Units 07:27 WBC 13.2 H (4.0-11.0) th/mm3 Hgb 8.4 L (13.0-17.0) gm/dL Hct 25.6 L (39.0-51.0) % Plt Count 468 H (150-450) th/mm3 Physical Exam Vital signs: Vital Signs 04/16/18 08:20 04/16/18 09:00 04/16/18 11:00 Temperature Pulse Rate 64 Respiratory Rate 16 16 Blood Pressure Pulse Oximetry 04/16/18 16:00 04/16/18 20:00 04/16/18 21:15 Temperature 98.2 F 98.4 F Pulse Rate 70 56 L Respiratory Rate 18 17 17 Blood Pressure 139/67 120/57 L Pulse Oximetry 99 97 04/17/18 00:00 04/17/18 03:57 04/17/18 04:00 Temperature 98.7 F 97.8 F Pulse Rate 56 L 64 Respiratory Rate 16 18 16 Blood Pressure 134/61 124/60 Pulse Oximetry 98 97 Intake & Output 04/16/18 04/17/18 04/17/18 18:59 06:59 18:59 Intake Total 1508.5 / 1508.5 358.5 / 358.5 Output Total 650 / 650 700 / 700 Balance 858.5 / 858.5 -341.5 / -341.5 Weight 57.9 kg Intake: IV 308.5 / 308.5 358.5 / 358.5 Zosyn 3.375 GM Premix 50 ML @ 50 / 50 100 / 100 100 mls/hr IV.SIG Q6H ACE Rx#: [id number] Vancomycin Inj 850 MG In NS Inj 258.5 / 258.5 258.5 / 258.5 250 ML @ 250 mls/hr IV.SIG Q12H ACE Rx#:[id number] Oral 1200 / 1200 Output: Urine 700 / 700 Urine Amount (Catheter) 650 / 650 Condom 650 / 650 Other: Date of Last Bowel Movement 04/15/18 Narrative: General: Sitting up in bed, no distress, complaining of right foot pain, pleasant demeanor Skin: Ulcers of bilateral ankles, left more shallow, right posterior heel deeper and covered in dressings which are clean, dry, and intact HEENT: Normocephalic, anisocoria with dilated left eye Neck: Supple CV: RRR, no murmurs, rubs, or gallops. Diminished DP pulse but has PT pulse present. Lungs: CTAB Abdomen: Soft, nontender, nondistended, normal bowel sounds : Condom catheter in place draining clear/yellow urine - Urinary Catheter Management Straight Cath placed during this visit: yes Reason for continuing: Other continuation reason Insertion date: 04/11/18 Insertion time: 21:08 Indwelling Urethral Catheter Cath placed during this visit: yes, but has since been removed by the nurse Reason for continuing: Not indwelling catheter Insertion date: 04/11/18 Insertion time: 21:08 Removal date: 04/12/18 Removal time: 11:35 Condom Cath placed during this visit: no Reason for continuing: Not indwelling catheter Assessment and Plan - Assessment (1) Osteomyelitis of ankle Code(s): M86.9 - Osteomyelitis, unspecified Status: Acute Plan: MRI showed evidence of osteomyelitis of right ankle which likely has been brewing for some time in this diabetic patient with PAD with chronic lower- extremity non-healing ulcers Culture positive for MRSA at different site (right thigh wound) Wound Cx of right ankle ordered and pending Blood cultures negative Afebrile * Podiatry following, appreciate assistance; will f/u recommendations for likely surgical intervention * ID consulted, appreciate recs * Continue vancomycin * Resume Zosyn * F/u wound culture right ankle * Recommend minimum debridement by podiatry * Further recs to follow * Wound care consulted, appreciate recs * See plan below * Pain management with Maybeury scheduled, morphine for breakthrough pain, gabapentin (2) Chronic wound of extremity Status: Acute Plan: Patient currently follows up with wound care as an outpatient Right hip wound, super observant dressing daily Skin tear lower left extremity, Santyl covered and dry dressing daily Right heel wound, apply gentamicin cream twice daily, see above plan for associated osteomyelitis Wound care consulted, appreciate recommendations * Cleanse wound to R Achilles heel with normal saline only and pat dry. Apply gentamicin mixed with Santyl 50/ 50 and apply to wound bed * Cover with ABD pad, and secure with rolled gauze and tape. Change dressing daily, until seen by podiatry. * Cleanse wound to R hip with normal saline and pat dry. Apply Optilock dressing secured with paper tape Change PRN for saturation or dislodgement * Cleanse wound to L posterior lower leg with normal saline and pat dry. Apply optifoam gentle 4x4 dressing change dressing every 3 days or PRN if saturated or dislodged. (3) MRSA (methicillin resistant staph aureus) culture positive Code(s): Z22.322 - Carrier or suspected carrier of Methicillin resistant Staphylococcus aureus Status: Acute Plan: This patient suffers from chronic nonhealing wounds likely secondary to peripheral arterial disease and DM. Patient had wound from right thigh cultured which ultimately grew MRSA. -Monitor for fevers and signs of systemic illness -Antibiotic therapy as above (4) GI bleed Code(s): K92.2 - Gastrointestinal hemorrhage, unspecified Status: Acute Plan: Initially presented with anemia and dark stools EGD demonstrates mild gastritis in the gastric fundus, gastric body, and gastric antrum. Deformity was found the duodenal bulb. Normal duodenal mucosa in the second part of the duodenum and third part duodenum. Retroflex views revealed no abnormalities. Colonoscopy negative terminal ileum.: Significant amount of stool throughout the colon interfere with vision with small lesion, diverticular disease, no sign of active bleeding at this point. Rectum small ulcer in the rectum biopsy was done not actively bleeding GI on board, appreciated recommendations -Diabetic [id number] -Advised patient to follow-up with GI post discharge for biopsy results -Monitor labs -Monitor for bleeding and transfuse if required -Continue PPI -Bowel regimen -Supportive care -Further recommendations to follow -At this time, declining any further colonoscopies (5) PAD (peripheral artery disease) Code(s): I73.9 - Peripheral vascular disease, unspecified Status: Chronic Plan: s/p recent right LE arterectomy. Per vascular surgery patient will need therapy for his peripheral arterial disease which will be commenced once source of bleeding is identified and treated. Will follow up outpatient with vascular surgery, unless podiatry recommends for consideration of acute intervention. (6) Bandemia Code(s): D72.825 - Bandemia Status: Acute Plan: Resolved, likely due to osteomyelitis. See above plan. (7) Hydronephrosis Code(s): N13.30 - Unspecified hydronephrosis Status: Acute Plan: Abdominal pelvis CT demonstrates development of moderate left hydronephrosis and hydroureter without ureteral obstruction. Also demonstrates stool ball in the rectum large amount of stool throughout the colon. Patient had a bladder scan 04/11 that revealed of a residual volume of 231 mL. Patient currently voiding well and is graded 200 mL of fluid today. Patient has no CVA tenderness. - Continue to monitor I's and O's. (8) HTN (hypertension) Code(s): I10 - Essential (primary) hypertension Status: Acute Plan: Continue Cardizem and amiodarone (no documentation of arrhythmia, unclear why he is on afib at this time) (9) Diabetes Code(s): E11.9 - Type 2 diabetes mellitus without complications Status: Acute Plan: Held home glipizide, Januvia Accu-Cheks Low-dose sliding scale Hypoglycemia protocol in place (10) Acute blood loss anemia Code(s): D62 - Acute posthemorrhagic anemia Status: Resolved Plan: In view of negative EGD/colonoscopy his present anemia is likely chronic -Monitor H/H -Consider iron replacement (11) Malnutrition Code(s): E46 - Unspecified protein-calorie malnutrition Status: Acute (12) Anisocoria Code(s): H57.02 - Anisocoria Status: Acute Plan: Most likely chronic in view of no other alarming ophthalmologic signs/symptoms Can follow up with Ophthalmology outpatient (13) Nutrition, metabolism, and development symptoms Code(s): R63.8 - Other symptoms and signs concerning food and fluid intake Status: Acute Plan: Fluids: P.o. hydration Diet: Regular diet Vitals every 4, monitor I's and O's DVT prophylaxis: Contraindicated due to upper GI bleed - Assessment and Plan Discussed Condition With: Seen and discussed with Dr. Hurst (1) Osteomyelitis of ankle Qualifiers: Osteomyelitis type: unspecified type Laterality: right Qualified Code(s): M86.9 - Osteomyelitis, unspecified (4) GI bleed Qualifiers: GI bleed type/associated pathology: unspecified gastrointestinal hemorrhage type Qualified Code(s): K92.2 - Gastrointestinal hemorrhage, unspecified (7) Hydronephrosis Qualifiers: Hydronephrosis type: unspecified Qualified Code(s): N13.30 - Unspecified hydronephrosis
[2018-04-17] MEDS ORDERED: Acetaminophen 325 MG Tablet PO SCH (08:30)
[2018-04-17] MEDS: Ferrous Sulfate 325 MG Tablet PO SCH ×3 (09:46→17:31)
[2018-04-17] MEDS: Amiodarone 200 MG Tablet PO SCH (09:46)
[2018-04-17] MEDS: Gabapentin 300 MG Capsule PO SCH ×3 (09:46→17:30)
[2018-04-17] MEDS: dilTIAZem 30 MG Tablet PO SCH ×3 (09:46→17:30)
[2018-04-17] MEDS: Potassium Phos/Sodium Phos 250 MG Tablet PO SCH ×4 (09:46→21:04)
[2018-04-17] MEDS: Sodium Chloride 1 GM Tablet PO SCH ×3 (09:46→17:31)
[2018-04-17] MEDS: Ascorbic Acid 500 MG Tablet PO SCH ×2 (09:46→21:04)
[2018-04-17] MEDS: Insulin NovoLOG Aspart Correctional Sugar Inj SQ SCH ×4 (09:46→21:05)
[2018-04-17] MEDS: Magnesium Oxide 400 MG Tablet PO SCH ×4 (09:47→21:05)
[2018-04-17] MEDS: Polyethylene Glycol 3350 17 GM Packet PO SCH (09:47)
[2018-04-17] MEDS: Gentamicin 0.1% Cream 15 GM Cream TOPICAL SCH ×2 (09:56→21:06)
[2018-04-17] MEDS: Collagenase Oint 30 GM Tube TOPICAL SCH (09:56)
[2018-04-17] MEDS ORDERED: Pharmacy Ordered Lab Info OTHER ONE (12:45)
--- NOTE | 2018-04-17 13:18 | P.PNID ---
Subjective Remarks: Patient is an 87-year-old male, admitted to the hospital for evaluation of low hemoglobin. There was apparently episodes of black tarry stools. He had a GI workup on this admission, and he seemed to be stable from the GI standpoint. Patient apparently has had a wound on his right heel Achilles area. He had vascular workup, and underwent aortogram around April 08, and had atherectomy of the right SFA and popliteal area. Patient could not really tell me how long he has had the open wound. He has pain when he walks. There is been no fever and chills. On this admission podiatry was consulted. 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 There is a foul odor coming out from that right foot, and patient really could not notice any difference. Since admission he has not been febrile. He has significant pain whenever his RLE gets moved. There was a culture from a right thigh wound that has MRSA. I do not see any culture from the right foot. His initial WBC was around 14,000 and that is down to normal. Blood cultures are negative. Infectious disease consultation has been requested to evaluate the patient. Notes reviewed Temps ok C/O pain at foot New C/S from ankle with GNR Antibiotics: Vancomycin Zosyn Lines: PIV Past Medical History: Weakness Diabetes HLD (hyperlipidemia) MDRO (multiple drug resistant organisms) resistance Onset Date: ~04/11/18 MRSA (methicillin resistant Staphylococcus aureus) PAD (peripheral artery disease) Hip surgery Allergies/Adverse Reactions: Allergies No Known Allergies Allergy (Verified 04/08/18 12:35) Objective Vital Signs 04/16/18 16:00 04/16/18 20:00 04/16/18 21:15 Temperature 98.2 F 98.4 F Pulse Rate 70 56 L Respiratory Rate 18 17 17 Blood Pressure 139/67 120/57 L Pulse Oximetry 99 97 04/17/18 00:00 04/17/18 03:57 04/17/18 04:00 Temperature 98.7 F 97.8 F Pulse Rate 56 L 64 Respiratory Rate 16 18 16 Blood Pressure 134/61 124/60 Pulse Oximetry 98 97 04/17/18 08:00 Temperature 97.6 F Pulse Rate 70 Respiratory Rate 18 Blood Pressure 165/72 H Pulse Oximetry 98 Intake & Output 04/16/18 04/17/18 04/17/18 18:59 06:59 18:59 Intake Total 1508.5 / 1508.5 358.5 / 358.5 50 / 50 Output Total 650 / 650 700 / 700 Balance 858.5 / 858.5 -341.5 / -341.5 50 / 50 Weight 57.9 kg Intake: IV 308.5 / 308.5 358.5 / 358.5 50 / 50 Zosyn 3.375 GM Premix 50 ML @ 50 / 50 100 / 100 50 / 50 100 mls/hr IV.SIG Q6H ACE Rx#: [id number] Vancomycin Inj 850 MG In NS Inj 258.5 / 258.5 258.5 / 258.5 250 ML @ 250 mls/hr IV.SIG Q12H ACE Rx#:[id number] Oral 1200 / 1200 Output: Urine 700 / 700 Urine Amount (Catheter) 650 / 650 Condom 650 / 650 Other: Date of Last Bowel Movement 04/15/18 04/16/18 15:55 Wound - Foot Gram Stain - Final 04/16/18 15:55 Wound - Foot Wound Culture - Pending 04/11/18 13:45 Blood - Peripheral Aerobic Blood Culture - Final No growth in 5 days 04/11/18 13:45 Blood - Peripheral Anaerobic Blood Culture - Final No growth in 5 days 04/11/18 13:50 Blood - Peripheral Aerobic Blood Culture - Final No growth in 5 days 04/11/18 13:50 Blood - Peripheral Anaerobic Blood Culture - Final No growth in 5 days Lab - Hematology Results 04/16/18 04/17/18 06:10 07:27 WBC 10.6 13.2 H RBC 2.74 L 2.71 L Hgb 8.6 L 8.4 L Hct 25.6 L 25.6 L MCV 93.4 94.5 MCH 31.5 31.0 MCHC 33.8 32.8 RDW 15.4 15.5 Plt Count 479 H 468 H MPV 6.3 L 6.2 L Prelim Diff (Auto) Slide review pending Neut % (Auto) 72.8 H 76.0 H Lymph % (Auto) 13.1 11.7 [place] % (Auto) 9.5 H 8.2 H Eos % (Auto) 3.3 2.9 Baso % (Auto) 1.3 1.2 Neut # (Auto) 7.7 10.0 H Lymph # (Auto) 1.4 1.5 [place] # (Auto) 1.0 H 1.1 H Eos # (Auto) 0.4 0.4 Baso # (Auto) 0.1 0.2 WBC Differential Manual diff final . Seg Neuts % (Manual) 73 H Band Neuts % (Manual) 6 Lymphocytes % (Manual) 12 Monocytes % (Manual) 5 Eosinophils % (Manual) 2 Basophils % (Manual) 1 Myelocytes % (Man) 1 H Abs Neuts (Manual) 8.5 H Differential Comment . Auto diff final Toxic Granulation 2+ H Platelet Estimate High H Platelet Morphology Normal Lab - Chemistry Results 04/14/18 04/14/18 04/15/18 18:09 20:42 18:42 Creatinine Estimated GFR POC Glucose 160 H 254 H 325 H 04/15/18 04/16/18 04/16/18 21:41 06:10 08:07 Creatinine 0.56 L Estimated GFR Greater than 89 POC Glucose 168 H 156 H 04/16/18 04/16/18 04/16/18 11:39 16:16 20:38 Creatinine Estimated GFR POC Glucose 154 H 287 H 180 H 04/17/18 04/17/18 07:33 12:51 Creatinine Estimated GFR POC Glucose 194 H 191 H Imaging: ITS Impressions Abdomen/Pelvis CT 04/11/18 11:57 CONCLUSION: 1. There is marked destructive changes of the right proximal femur identified. The trochanteric nail hardware now extends beyond the femoral head cortex partially destroyed. There is also a patchy/permeative appearance of the shield tuberosity without obvious fracture. 2. Stool ball in the rectum and a large amount of stool throughout the colon. 3. Nonobstructing left renal calculi and left renal cyst. 4. Interval development of moderate left hydronephrosis and hydroureter without obvious obstructing stone. Head CT 04/11/18 11:59 CONCLUSION: 1. Stable appearance of the brain. . Ankle MRI 04/15/18 00:00 CONCLUSION: 1. Osteomyelitis of the posterior calcaneus with a near complete tear of the distal Achilles tendon. There is overlying cellulitis and subcutaneous edema with a small abscess adjacent to the distal Achilles tendon as measured above. There is edematous change on the plantar aspect of the foot with a tenosynovitis as above. No acute fracture identified. Mild bone edema tibia, nonspecific. Ankle X-Ray 04/15/18 00:00 CONCLUSION: Osteomyelitis of the posterior calcaneus with overlying soft tissue swelling and ulceration. No acute fracture. Physical Exam: GENERAL: awake and alert, not in respiratory distress. SKIN: Cool and dry. No generalized rash. Has some scattered ecchymoses in his UE. HEAD: Atraumatic. Normocephalic. No temporal wasting, or tenderness. EYES: [place] conjunctiva. No petechia or hemorrhage. No scleral icterus. No injection or drainage. EARS, NOSE AND THROAT: Nose without bleeding or purulent nasal discharge. No sinus tenderness. Mucous membranes pink and moist. No oral lesions noted. No exudate. No oral thrush. NECK: Trachea midline. Supple and not tender, no meningeal signs CARDIOVASCULAR: Regular rate and rhythm. No murmurs, rubs or gallops heard RESPIRATORY: Clear to auscultation. Breath sounds equal bilaterally. No rales , wheezing or rhonchi ABDOMEN: Soft, non-tender, nondistended. Bowel sounds present and normoactive. No guarding. No rebound. No organomegaly. EXTREMITIES: No clubbing, cyanosis, or edema. R foot - there is a necrotic wound in posterior heel and Achilles area with foul odor. Has surrounding erythema and bogginess. No calf tenderness. R foot cooler compared to the L foot LINE: No evidence of infection Assessment and Plan - Plan Impression Non-healing wound R heel/achilles area with abscess and osteo posterior calcaneus PVD S/P revascularization RLE GIB Recommendation Continue IV Vanco Continue Zosyn Podiatry following Follow C/S Monitor progress
[2018-04-17 13:54] LABS: Anion Gap 8 meq/L (5-15); Blood Urea Nitrogen 14 mg/dL (7-18); Carbon Dioxide 26.5 meq/L (21.0-32.0); Chloride 99 meq/L (98-107); Glomerular Filtration Rate Greater Than 89 mL/min (>89); Glucose,Random 148 mg/dL (74-106); Potassium 4.1 meq/L (3.5-5.1); Sodium 133 meq/L (136-145)
[2018-04-17 13:58] LABS: Vancomycin,Trough 9.9 mcg/mL (5.0-10.0)
--- NOTE | 2018-04-17 22:40 | P.PNPOD ---
Subjective Interval history: Patient seen bedside with nursing present. Reports pain to RLE. Physical Exam Vital signs: Vital Signs 04/17/18 00:00 04/17/18 03:57 04/17/18 04:00 Temperature 98.7 F 97.8 F Pulse Rate 56 L 64 Respiratory Rate 18 16 Blood Pressure 134/61 124/60 Pulse Oximetry 98 97 04/17/18 08:00 04/17/18 12:00 04/17/18 16:00 Temperature 97.6 F 97.7 F 98.1 F Pulse Rate 70 64 67 Respiratory Rate 18 Blood Pressure 165/72 H 129/61 122/70 Pulse Oximetry 98 97 97 04/17/18 20:00 Temperature 98.3 F Pulse Rate 63 Respiratory Rate 20 Blood Pressure 117/56 L Pulse Oximetry 97 Intake & Output 04/17/18 04/17/18 04/18/18 06:59 18:59 06:59 Intake Total 358.5 / 358.5 718.5 / 718.5 Output Total 700 / 700 1150 / 1150 Balance -341.5 / -341.5 -431.5 / -431.5 Weight 57.9 kg Intake: IV 358.5 / 358.5 358.5 / 358.5 Zosyn 3.375 GM Premix 50 ML @ 100 / 100 100 / 100 100 mls/hr IV.SIG Q6H [facility] Rx#: [id number] Vancomycin Inj 850 MG In NS Inj 258.5 / 258.5 258.5 / 258.5 250 ML @ 250 mls/hr IV.SIG Q12H [facility] Rx#:[id number] Oral 360 / 360 Output: Urine 700 / 700 550 / 550 Urine Amount (Catheter) 600 / 600 Condom 600 / 600 Other: Date of Last Bowel Movement 04/15/18 Narrative: Posterior ankle/Achilles wound with exposed calcaneus and frayed necrotic Achilles ends. No purulent drainage noted Non palpable pulses Thin, atrophic, shiny skin Medications and Allergies Active Medications: Active Medications Hydrocodone Bitart/Acetaminophen ([place] 7.5/325) 1 tab PO Q4H [facility] Last Admin: 04/17/18 22:18 Dose: 1 tab Amiodarone HCl (Cordarone) 200 mg PO DAILY [facility] Last Admin: 04/17/18 09:46 Dose: 200 mg Ascorbic Acid (Vitamin C) 500 mg PO BID [facility] Last Admin: 04/17/18 21:04 Dose: 500 mg Collagenase (Santyl Oint) 1 applicatio TOPICAL DAILY [facility] Last Admin: 04/17/18 09:56 Dose: 1 applicatio Dextrose (D50w Vial) 50 ml IV.PUSH UNSCH PRN PRN Reason: PER HYPOGLYCEMIA PROTOCOL Last Admin: 04/12/18 06:49 Dose: 50 ml Diltiazem HCl (Cardizem) 30 mg PO TID [facility] Last Admin: 04/17/18 17:30 Dose: 30 mg Ferrous Sulfate (Ferosul) 325 mg PO TID [facility] Last Admin: 04/17/18 17:31 Dose: 325 mg Gabapentin (Neurontin) 300 mg PO TID [facility] Last Admin: 04/17/18 17:30 Dose: 300 mg Gentamicin Sulfate (Gentamicin 0.1% Cream) 1 applicatio TOPICAL BID [facility] Last Admin: 04/17/18 21:06 Dose: 1 applicatio Glucagon (Glucagon Inj) 1 mg OTHER PRN PRN PRN Reason: for Hypoglycemia Protocol Sodium Chloride (Ns Inj) 500 mls @ 30 mls/hr IV.SIG .Q10H [facility] Last Admin: 04/12/18 02:14 Dose: Not Given Piperacillin/Tazobactam/Dextrose (Zosyn 3.375 Gm Premix) 50 mls @ 100 mls/hr IV.SIG Q6H [facility] Last Admin: 04/17/18 22:17 Dose: 100 mls/hr Vancomycin HCl 1,000 mg/ (Sodium Chloride) 250 mls @ 250 mls/hr IV.SIG Q12H [facility] Insulin Aspart (Novolog Insulin Correctional Sugar Inj) 0 unit SQ ACHS [facility]; Protocol Last Admin: 04/17/18 21:05 Dose: 3 unit Levothyroxine Sodium (Synthroid) 125 mcg PO DAILY@0600 [facility] Last Admin: 04/17/18 05:39 Dose: 125 mcg Magnesium Oxide (Mag-Ox) 400 mg PO QID [facility] Last Admin: 04/17/18 21:05 Dose: 400 mg Miscellaneous Information ([facility] Ordered Lab Info) 0 each OTHER ONCE ONE Stop: 04/19/18 00:46 Morphine Sulfate (Morphine Inj) 2 mg IV.PUSH Q3H PRN PRN Reason: BREAKTHROUGH PAIN Last Admin: 04/13/18 17:37 Dose: 2 mg Naloxone HCl (Narcan Inj) 0.4 mg IV.PUSH UNSCH PRN PRN Reason: SEE LABEL COMMENTS Pantoprazole Sodium (Protonix) 40 mg PO BID [facility] Last Admin: 04/17/18 21:04 Dose: 40 mg Pharmacy Profile Note (Vancomycin Consult Pharmacy) 1 each OTHER UNSCH PRN PRN Reason: Pharmacy to dose Polyethylene Glycol (Miralax) 17 gm PO DAILY [facility] Last Admin: 04/17/18 09:47 Dose: 17 gm Potassium Phos/Sodium Phos (K-Phos Neutral) 250 mg PO QID [facility] Last Admin: 04/17/18 21:04 Dose: 250 mg Pravastatin Sodium (Pravachol) 40 mg PO DAILY [facility] Last Admin: 04/17/18 09:47 Dose: 40 mg Sodium Chloride (Ns Flush) 2 ml IV.FLUSH BID [facility] Last Admin: 04/17/18 21:05 Dose: 2 ml Sodium Chloride (Ns Flush) 2 ml IV.FLUSH PRN PRN PRN Reason: FLUSH AFTER USING IV ACCESS Sodium Chloride (Sodium Chloride) 1 gm PO TID [facility] Last Admin: 04/17/18 17:31 Dose: 1 gm Allergies Allergy/AdvReac Type Severity Reaction Status Date / Time No Known Allergies Allergy Verified 04/08/18 12:35 Home Medications Medication Instructions Recorded Confirmed Type Lactobacillus acidoph-L.bulgar 1 tab PO DAILY 04/08/18 04/11/18 History [Floranex] amiodarone 200 mg PO DAILY 04/08/18 04/11/18 History diltiazem HCl 30 mg PO TID 04/08/18 04/11/18 History ferrous sulfate 325 mg PO TID 04/08/18 04/11/18 History gabapentin 300 mg PO TID 04/08/18 04/11/18 History glipizide 10 mg PO BID 04/08/18 04/11/18 History hydrocodone-acetaminophen 1 tab PO Q6H 04/08/18 04/11/18 History levothyroxine 125 mcg PO DAILY 04/08/18 04/11/18 History magnesium oxide 400 mg PO QID 04/08/18 04/11/18 History meloxicam 7.5 mg PO DAILY 04/08/18 04/11/18 History pravastatin 40 mg PO DAILY 04/08/18 04/11/18 History ranitidine HCl 300 mg PO DAILY 04/08/18 04/11/18 History sitagliptin [Januvia] 100 mg PO DAILY 04/08/18 04/11/18 History sod phos di, mono-K phos mono 1 tab PO QID 04/08/18 04/11/18 History [Phospha 250 Neutral] sodium chloride 1,000 mg PO TID 04/08/18 04/11/18 History ascorbic acid (vitamin C) [Vitamin 500 mg PO BID 04/11/18 04/11/18 History C] insulin aspart U-100 [Novolog 1 - 10 units SUBCUT DIRECTED 04/11/18 04/11/18 History U-100 Insulin aspart] Results - Labs CBC & Chem 7: 04/17/18 07:27 04/17/18 12:40 Laboratory Results - last 24 hr 04/17/18 04/17/18 04/17/18 07:27 07:33 12:40 WBC 13.2 H RBC 2.71 L Hgb 8.4 L Hct 25.6 L MCV 94.5 MCH 31.0 MCHC 32.8 RDW 15.5 Plt Count 468 H MPV 6.2 L Neut % (Auto) 76.0 H Lymph % (Auto) 11.7 [place] % (Auto) 8.2 H Eos % (Auto) 2.9 Baso % (Auto) 1.2 Neut # (Auto) 10.0 H Lymph # (Auto) 1.5 [place] # (Auto) 1.1 H Eos # (Auto) 0.4 Baso # (Auto) 0.2 WBC Differential . Differential Comment Auto diff final Sodium 133 L Potassium 4.1 Chloride 99 Carbon Dioxide 26.5 Anion Gap 8 BUN 14 Creatinine 0.52 L Estimated GFR Greater than 89 POC Glucose 194 H Random Glucose 148 H Calcium 8.0 L Vancomycin Trough 9.9 04/17/18 04/17/18 04/17/18 12:51 16:42 21:00 WBC RBC Hgb Hct MCV MCH MCHC RDW Plt Count MPV Neut % (Auto) Lymph % (Auto) [place] % (Auto) Eos % (Auto) Baso % (Auto) Neut # (Auto) Lymph # (Auto) [place] # (Auto) Eos # (Auto) Baso # (Auto) WBC Differential Differential Comment Sodium Potassium Chloride Carbon Dioxide Anion Gap BUN Creatinine Estimated GFR POC Glucose 191 H 199 H 224 H Random Glucose Calcium Vancomycin Trough Microbiology 04/16/18 15:55 Wound - Foot Gram Stain - Final 04/16/18 15:55 Wound - Foot Wound Culture - Preliminary gram negative rods Assessment and Plan - Plan 87 year old with posterior Achilles/ankle wound and OM noted on MRI 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 Oliva, vascular surgery to attempt revasc on Saturday Surgical intervention from podiatry once vascular intervention is complete Depending on success of revasc will consider partial calcanectomy versus debridement and irrigation Agressive bedside irrigation with betadine placement Will follow patient closely
[2018-04-18] MEDS: Vancomycin Inj 1,000 MG in Sodium Chlor 0.9% Inj 250 ML IV.SIG SCH ×2 (01:09→12:45)
[2018-04-18] MEDS: Morphine Inj 4 MG/ML Vial IV.PUSH PRN (01:35)
[2018-04-18] MEDS: Piperacil/Tazo 3.375 GM Premix 50 ML IV.SIG SCH ×2 (04:13→10:06)
[2018-04-18] MEDS: Levothyroxine 125 MCG Tablet PO SCH (06:03)
--- NOTE | 2018-04-18 08:00 | P.PNVS ---
Subjective Subjective/Hospital Course: Pt overall stable R heel wound still painful for him but no foot pain Objective Vital Signs / I&O: Vital Signs 04/17/18 08:00 04/17/18 12:00 04/17/18 16:00 Temperature 97.6 F 97.7 F 98.1 F Pulse Rate 70 64 67 Respiratory Rate 18 18 18 Blood Pressure 165/72 H 129/61 122/70 Pulse Oximetry 98 97 97 04/17/18 20:00 04/17/18 20:02 04/17/18 22:48 Temperature 98.3 F Pulse Rate 63 62 Respiratory Rate 20 20 Blood Pressure 117/56 L Pulse Oximetry 97 04/18/18 00:00 04/18/18 00:12 04/18/18 01:37 Temperature 97.6 F Pulse Rate 59 L 55 L Respiratory Rate 20 18 Blood Pressure 118/56 L Pulse Oximetry 97 04/18/18 03:03 04/18/18 04:00 04/18/18 04:05 Temperature 97.3 F L Pulse Rate 61 58 L Respiratory Rate 18 20 Blood Pressure 143/66 H Pulse Oximetry 99 04/18/18 06:33 Temperature Pulse Rate Respiratory Rate 20 Blood Pressure Pulse Oximetry Intake & Output 04/17/18 04/18/18 04/18/18 18:59 06:59 18:59 Intake Total 718.5 / 718.5 470 / 470 Output Total 1150 / 1150 1850 / 1850 Balance -431.5 / -431.5 -1380 / -1380 Weight 58.3 kg Intake: IV 358.5 / 358.5 350 / 350 Zosyn 3.375 GM Premix 50 ML @ 100 / 100 100 / 100 100 mls/hr IV.SIG Q6H [facility] Rx#: [id number] Vancomycin Inj 1,000 MG In NS 250 / 250 Inj 250 ML @ 250 mls/hr IV.SIG Q12H [facility] Rx#:[id number] Vancomycin Inj 850 MG In NS Inj 258.5 / 258.5 250 ML @ 250 mls/hr IV.SIG Q12H [facility] Rx#:[id number] Oral 360 / 360 120 / 120 Output: Urine 550 / 550 Urine Amount (Catheter) 600 / 600 1850 / 1850 Condom 600 / 600 1850 / 1850 Other: Date of Last Bowel Movement 04/15/18 Physical Exam: R foot warm, ankle dressing intact Laboratory Results - last 24 hr 04/17/18 04/17/18 04/17/18 07:27 12:40 12:51 WBC 13.2 H RBC 2.71 L Hgb 8.4 L Hct 25.6 L MCV 94.5 MCH 31.0 MCHC 32.8 RDW 15.5 Plt Count 468 H MPV 6.2 L Neut % (Auto) 76.0 H Lymph % (Auto) 11.7 [place] % (Auto) 8.2 H Eos % (Auto) 2.9 Baso % (Auto) 1.2 Neut # (Auto) 10.0 H Lymph # (Auto) 1.5 [place] # (Auto) 1.1 H Eos # (Auto) 0.4 Baso # (Auto) 0.2 WBC Differential . Differential Comment Auto diff final Sodium 133 L Potassium 4.1 Chloride 99 Carbon Dioxide 26.5 Anion Gap 8 BUN 14 Creatinine 0.52 L Estimated GFR Greater than 89 POC Glucose 191 H Random Glucose 148 H Calcium 8.0 L Vancomycin Trough 9.9 04/17/18 04/17/18 04/18/18 16:42 21:00 07:57 WBC RBC Hgb Hct MCV MCH MCHC RDW Plt Count MPV Neut % (Auto) Lymph % (Auto) [place] % (Auto) Eos % (Auto) Baso % (Auto) Neut # (Auto) Lymph # (Auto) [place] # (Auto) Eos # (Auto) Baso # (Auto) WBC Differential Differential Comment Sodium Potassium Chloride Carbon Dioxide Anion Gap BUN Creatinine Estimated GFR POC Glucose 199 H 224 H 165 H Random Glucose Calcium Vancomycin Trough Microbiology 04/16/18 15:55 Gram Stain - Final Wound - Foot Wound Culture - Preliminary gram negative rods Assessment and Plan - Assessment (1) PAD (peripheral artery disease) Code(s): I73.9 - Peripheral vascular disease, unspecified Status: Chronic - Plan d/w Dr. Major will perform R LE angiogram on Saturday under GETA. Likely needs significantly more perfusion to heal wounds pt agrees to plan
[2018-04-18 08:29] LABS: Hemoglobin 8.8 gm/dL (13.0-17.0); Mean Corpuscular HGB Conc 33.8 % (32.0-36.0); Mean Corpuscular Hemoglobin 31.7 pg (27.0-34.0); Mean Corpuscular Volume 93.5 fL (80.0-100.0); Mean Platelet Volume 6.3 fL (7.0-11.0); Platelet Count 482 th/mm3 (150-450); Red Blood Count 2.78 mil/mm3 (4.50-5.90); Red Cell Distribution Width 15.5 % (11.6-17.2); White Blood Count 11.9 th/mm3 (4.0-11.0)
[2018-04-18 08:50] LABS: Anion Gap 9 meq/L (5-15); Blood Urea Nitrogen 12 mg/dL (7-18); Calcium 8.1 mg/dL (8.5-10.1); Carbon Dioxide 26.8 meq/L (21.0-32.0); Chloride 98 meq/L (98-107); Glomerular Filtration Rate Greater Than 89 mL/min (>89); Glucose,Random 120 mg/dL (74-106); Potassium 4.2 meq/L (3.5-5.1); Sodium 134 meq/L (136-145)
[2018-04-18] MEDS: Insulin NovoLOG Aspart Correctional Sugar Inj SQ SCH ×4 (09:52→22:52)
[2018-04-18] MEDS: Potassium Phos/Sodium Phos 250 MG Tablet PO SCH ×4 (09:54→22:20)
[2018-04-18] MEDS: dilTIAZem 30 MG Tablet PO SCH ×3 (09:54→17:57)
[2018-04-18] MEDS: Ferrous Sulfate 325 MG Tablet PO SCH ×3 (09:54→17:57)
[2018-04-18] MEDS: Ascorbic Acid 500 MG Tablet PO SCH ×2 (09:54→22:20)
[2018-04-18] MEDS: Amiodarone 200 MG Tablet PO SCH (09:55)
[2018-04-18] MEDS: Magnesium Oxide 400 MG Tablet PO SCH ×4 (09:55→22:20)
[2018-04-18] MEDS: Sodium Chloride 1 GM Tablet PO SCH ×3 (09:55→17:57)
[2018-04-18] MEDS: Collagenase Oint 30 GM Tube TOPICAL SCH (09:56)
[2018-04-18] MEDS: Polyethylene Glycol 3350 17 GM Packet PO SCH (09:58)
[2018-04-18] MEDS: Gentamicin 0.1% Cream 15 GM Cream TOPICAL SCH ×2 (09:59→22:52)
[2018-04-18] MEDS: Gabapentin 300 MG Capsule PO SCH ×3 (10:06→17:56)
--- NOTE | 2018-04-18 10:36 | P.PNID ---
Subjective Remarks: Patient is an 87-year-old male, admitted to the hospital for evaluation of low hemoglobin. There was apparently episodes of black tarry stools. He had a GI workup on this admission, and he seemed to be stable from the GI standpoint. Patient apparently has had a wound on his right heel Achilles area. He had vascular workup, and underwent aortogram around April 08, and had atherectomy of the right SFA and popliteal area. Patient could not really tell me how long he has had the open wound. He has pain when he walks. There is been no fever and chills. On this admission podiatry was consulted. 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 There is a foul odor coming out from that right foot, and patient really could not notice any difference. Since admission he has not been febrile. He has significant pain whenever his RLE gets moved. There was a culture from a right thigh wound that has MRSA. I do not see any culture from the right foot. His initial WBC was around 14,000 and that is down to normal. Blood cultures are negative. Infectious disease consultation has been requested to evaluate the patient. Notes reviewed D/W RN Temps ok C/O pain at foot New C/S from ankle with GNR Vascular workup noted Podiatry notes reviewed Antibiotics: Vancomycin Zosyn Lines: PIV Past Medical History: Weakness Diabetes HLD (hyperlipidemia) MDRO (multiple drug resistant organisms) resistance Onset Date: ~04/11/18 MRSA (methicillin resistant Staphylococcus aureus) PAD (peripheral artery disease) Hip surgery Allergies/Adverse Reactions: Allergies No Known Allergies Allergy (Verified 04/08/18 12:35) Objective Vital Signs 04/17/18 12:00 04/17/18 16:00 04/17/18 20:00 Temperature 97.7 F 98.1 F 98.3 F Pulse Rate 64 67 63 Respiratory Rate 18 18 20 Blood Pressure 129/61 122/70 117/56 L Pulse Oximetry 97 97 97 04/17/18 20:02 04/17/18 22:48 04/18/18 00:00 Temperature 97.6 F Pulse Rate 62 59 L Respiratory Rate 20 20 Blood Pressure 118/56 L Pulse Oximetry 97 04/18/18 00:12 04/18/18 01:37 04/18/18 03:03 Temperature Pulse Rate 55 L Respiratory Rate 18 18 Blood Pressure Pulse Oximetry 04/18/18 04:00 04/18/18 04:05 04/18/18 06:33 Temperature 97.3 F L Pulse Rate 61 58 L Respiratory Rate 20 20 Blood Pressure 143/66 H Pulse Oximetry 99 04/18/18 08:00 Temperature 97.5 F L Pulse Rate 64 Respiratory Rate 18 Blood Pressure 136/61 Pulse Oximetry 95 Intake & Output 04/17/18 04/18/18 04/18/18 18:59 06:59 18:59 Intake Total 718.5 / 718.5 470 / 470 Output Total 1150 / 1150 1850 / 1850 Balance -431.5 / -431.5 -1380 / -1380 Weight 58.3 kg Intake: IV 358.5 / 358.5 350 / 350 Zosyn 3.375 GM Premix 50 ML @ 100 / 100 100 / 100 100 mls/hr IV.SIG Q6H [facility] Rx#: [id number] Vancomycin Inj 1,000 MG In NS 250 / 250 Inj 250 ML @ 250 mls/hr IV.SIG Q12H [facility] Rx#:[id number] Vancomycin Inj 850 MG In NS Inj 258.5 / 258.5 250 ML @ 250 mls/hr IV.SIG Q12H [facility] Rx#:[id number] Oral 360 / 360 120 / 120 Output: Urine 550 / 550 Urine Amount (Catheter) 600 / 600 1850 / 1850 Condom 600 / 600 1850 / 1850 Other: Date of Last Bowel Movement 04/15/18 04/16/18 15:55 Wound - Foot Gram Stain - Final 04/16/18 15:55 Wound - Foot Wound Culture - Preliminary gram negative rods 04/11/18 13:45 Blood - Peripheral Aerobic Blood Culture - Final No growth in 5 days 04/11/18 13:45 Blood - Peripheral Anaerobic Blood Culture - Final No growth in 5 days 04/11/18 13:50 Blood - Peripheral Aerobic Blood Culture - Final No growth in 5 days 04/11/18 13:50 Blood - Peripheral Anaerobic Blood Culture - Final No growth in 5 days Lab - Hematology Results 04/17/18 04/18/18 07:27 06:23 WBC 13.2 H 11.9 H RBC 2.71 L 2.78 L Hgb 8.4 L 8.8 L Hct 25.6 L 26.0 L MCV 94.5 93.5 MCH 31.0 31.7 MCHC 32.8 33.8 RDW 15.5 15.5 Plt Count 468 H 482 H MPV 6.2 L 6.3 L Neut % (Auto) 76.0 H Lymph % (Auto) 11.7 [place] % (Auto) 8.2 H Eos % (Auto) 2.9 Baso % (Auto) 1.2 Neut # (Auto) 10.0 H Lymph # (Auto) 1.5 [place] # (Auto) 1.1 H Eos # (Auto) 0.4 Baso # (Auto) 0.2 WBC Differential . Differential Comment Auto diff final Lab - Chemistry Results 04/16/18 04/16/18 04/16/18 11:39 16:16 20:38 Sodium Potassium Chloride Carbon Dioxide Anion Gap BUN Creatinine Estimated GFR POC Glucose 154 H 287 H 180 H Random Glucose Calcium 04/17/18 04/17/18 04/17/18 07:33 12:40 12:51 Sodium 133 L Potassium 4.1 Chloride 99 Carbon Dioxide 26.5 Anion Gap 8 BUN 14 Creatinine 0.52 L Estimated GFR Greater than 89 POC Glucose 194 H 191 H Random Glucose 148 H Calcium 8.0 L 04/17/18 04/17/18 04/18/18 16:42 21:00 06:23 Sodium 134 L Potassium 4.2 Chloride 98 Carbon Dioxide 26.8 Anion Gap 9 BUN 12 Creatinine 0.52 L Estimated GFR Greater than 89 POC Glucose 199 H 224 H Random Glucose 120 H Calcium 8.1 L 04/18/18 07:57 Sodium Potassium Chloride Carbon Dioxide Anion Gap BUN Creatinine Estimated GFR POC Glucose 165 H Random Glucose Calcium Imaging: ITS Impressions Abdomen/Pelvis CT 04/11/18 11:57 CONCLUSION: 1. There is marked destructive changes of the right proximal femur identified. The trochanteric nail hardware now extends beyond the femoral head cortex partially destroyed. There is also a patchy/permeative appearance of the shield tuberosity without obvious fracture. 2. Stool ball in the rectum and a large amount of stool throughout the colon. 3. Nonobstructing left renal calculi and left renal cyst. 4. Interval development of moderate left hydronephrosis and hydroureter without obvious obstructing stone. Head CT 04/11/18 11:59 CONCLUSION: 1. Stable appearance of the brain. . Ankle MRI 04/15/18 00:00 CONCLUSION: 1. Osteomyelitis of the posterior calcaneus with a near complete tear of the distal Achilles tendon. There is overlying cellulitis and subcutaneous edema with a small abscess adjacent to the distal Achilles tendon as measured above. There is edematous change on the plantar aspect of the foot with a tenosynovitis as above. No acute fracture identified. Mild bone edema tibia, nonspecific. Ankle X-Ray 04/15/18 00:00 CONCLUSION: Osteomyelitis of the posterior calcaneus with overlying soft tissue swelling and ulceration. No acute fracture. Physical Exam: GENERAL: awake and alert, not in respiratory distress. SKIN: Cool and dry. No generalized rash. Has some scattered ecchymoses in his UE. HEAD: Atraumatic. Normocephalic. No temporal wasting, or tenderness. EYES: [place] conjunctiva. No petechia or hemorrhage. No scleral icterus. No injection or drainage. EARS, NOSE AND THROAT: Nose without bleeding or purulent nasal discharge. Mucous membranes pink and moist. No oral lesions noted. No exudate. No oral thrush. NECK: Trachea midline. Supple and not tender, no meningeal signs CARDIOVASCULAR: Regular rate and rhythm. No murmurs, rubs or gallops heard RESPIRATORY: Clear to auscultation. Breath sounds equal bilaterally. No rales , wheezing or rhonchi ABDOMEN: Soft, non-tender, nondistended. Bowel sounds present and normoactive. No guarding. No rebound. No organomegaly. EXTREMITIES: No clubbing, cyanosis, or edema. R foot - with dressing in place. Has surrounding erythema and bogginess. No calf tenderness. R foot cooler compared to the L foot LINE: No evidence of infection Assessment and Plan - Plan Impression Non-healing wound R heel/achilles area with abscess and osteo posterior calcaneus PVD S/P revascularization RLE GIB Leukocytosis, mild Recommendation Continue IV Vanco Continue Zosyn Follow C/S Follow CBC Vascular work-up Podiatry following Monitor progress D/W RN Addendum: Micro called Patient with very resistant PSAE I will change Zosyn to [place]a
--- NOTE | 2018-04-18 11:50 | P.PNFP ---
Subjective Interval history: Patient was seen at bedside this morning. There were no acute events overnight. Patient was found trying to eat while laying flat on his back because elevating the head of the bed was too painful to his legs. Patient reports overall feeling well besides the pain in his legs. He reports frustration due to his pain and says that he last himself from crying. A discussion was had with the patient about plan and debridement of his heel. We also spoke about the importance of blood flow and circulation for healing and that he will be evaluated by vascular. Patient denies any subjective fevers, chills, shortness of breath, chest pain, nausea, or vomiting. All questions were answered to the patient's satisfaction. <Geoff Frost O - 04/18/18 14:29> Results - Labs Result diagrams: 04/19/18 05:39 04/19/18 05:39 <Saji Johnson L - 04/19/18 14:43> Abnormal lab results 04/18/18 04/18/18 04/19/18 Range/Units 16:49 22:18 00:00 RBC (4.50-5.90) mil/mm3 Hgb (13.0-17.0) gm/dL Hct (39.0-51.0) % Plt Count (150-450) th/mm3 MPV (7.0-11.0) fL [place] % (Auto) (0.0-8.0) % Eos % (Auto) (0.0-4.0) % Eos # (Auto) (0.0-0.4) th/mm3 Band Neuts % (Manual) (0-6) % Myelocytes % (Man) (0-0) % Abs Neuts (Manual) (1.8-7.7) th/mm3 Toxic Granulation (None) Platelet Estimate (Normal) Creatinine (0.60-1.30) mg/dL POC Glucose 155 H 192 H (68-110) mg/dl Random Glucose (74-106) mg/dL Calcium (8.5-10.1) mg/dL Vancomycin Trough 12.5 H (5.0-10.0) mcg/mL 04/19/18 04/19/18 04/19/18 Range/Units 05:39 05:39 07:44 RBC 2.91 L (4.50-5.90) mil/mm3 Hgb 9.3 L (13.0-17.0) gm/dL Hct 27.8 L (39.0-51.0) % Plt Count 475 H (150-450) th/mm3 MPV 6.4 L (7.0-11.0) fL [place] % (Auto) 8.9 H (0.0-8.0) % Eos % (Auto) 5.3 H (0.0-4.0) % Eos # (Auto) 0.6 H (0.0-0.4) th/mm3 Band Neuts % (Manual) 12 H (0-6) % Myelocytes % (Man) 2 H (0-0) % Abs Neuts (Manual) 8.5 H (1.8-7.7) th/mm3 Toxic Granulation 1+ H (None) Platelet Estimate High H (Normal) Creatinine 0.57 L (0.60-1.30) mg/dL POC Glucose 139 H (68-110) mg/dl Random Glucose 118 H (74-106) mg/dL Calcium 8.1 L (8.5-10.1) mg/dL Vancomycin Trough (5.0-10.0) mcg/mL 04/19/18 Range/Units 12:07 RBC (4.50-5.90) mil/mm3 Hgb (13.0-17.0) gm/dL Hct (39.0-51.0) % Plt Count (150-450) th/mm3 MPV (7.0-11.0) fL [place] % (Auto) (0.0-8.0) % Eos % (Auto) (0.0-4.0) % Eos # (Auto) (0.0-0.4) th/mm3 Band Neuts % (Manual) (0-6) % Myelocytes % (Man) (0-0) % Abs Neuts (Manual) (1.8-7.7) th/mm3 Toxic Granulation (None) Platelet Estimate (Normal) Creatinine (0.60-1.30) mg/dL POC Glucose 166 H (68-110) mg/dl Random Glucose (74-106) mg/dL Calcium (8.5-10.1) mg/dL Vancomycin Trough (5.0-10.0) mcg/mL Short CBC 04/19/18 Range/Units 05:39 WBC 10.5 (4.0-11.0) th/mm3 Hgb 9.3 L (13.0-17.0) gm/dL Hct 27.8 L (39.0-51.0) % Plt Count 475 H (150-450) th/mm3 BMP 04/19/18 05:39 Sodium 136 Potassium 4.1 Chloride 100 Carbon Dioxide 27.3 BUN 11 Creatinine 0.57 L Calcium 8.1 L <Young,Saji L - 04/19/18 14:43> Abnormal lab results 04/17/18 04/17/18 04/17/18 Range/Units 12:40 12:51 16:42 WBC (4.0-11.0) th/mm3 RBC (4.50-5.90) mil/mm3 Hgb (13.0-17.0) gm/dL Hct (39.0-51.0) % Plt Count (150-450) th/mm3 MPV (7.0-11.0) fL Sodium 133 L (136-145) meq/L Creatinine 0.52 L (0.60-1.30) mg/dL POC Glucose 191 H 199 H (68-110) mg/dl Random Glucose 148 H (74-106) mg/dL Calcium 8.0 L (8.5-10.1) mg/dL 04/17/18 04/18/18 04/18/18 Range/Units 21:00 06:23 06:23 WBC 11.9 H (4.0-11.0) th/mm3 RBC 2.78 L (4.50-5.90) mil/mm3 Hgb 8.8 L (13.0-17.0) gm/dL Hct 26.0 L (39.0-51.0) % Plt Count 482 H (150-450) th/mm3 MPV 6.3 L (7.0-11.0) fL Sodium 134 L (136-145) meq/L Creatinine 0.52 L (0.60-1.30) mg/dL POC Glucose 224 H (68-110) mg/dl Random Glucose 120 H (74-106) mg/dL Calcium 8.1 L (8.5-10.1) mg/dL 04/18/18 Range/Units 07:57 WBC (4.0-11.0) th/mm3 RBC (4.50-5.90) mil/mm3 Hgb (13.0-17.0) gm/dL Hct (39.0-51.0) % Plt Count (150-450) th/mm3 MPV (7.0-11.0) fL Sodium (136-145) meq/L Creatinine (0.60-1.30) mg/dL POC Glucose 165 H (68-110) mg/dl Random Glucose (74-106) mg/dL Calcium (8.5-10.1) mg/dL Short CBC 04/18/18 Range/Units 06:23 WBC 11.9 H (4.0-11.0) th/mm3 Hgb 8.8 L (13.0-17.0) gm/dL Hct 26.0 L (39.0-51.0) % Plt Count 482 H (150-450) th/mm3 BMP 04/17/18 04/18/18 12:40 06:23 Sodium 133 L 134 L Potassium 4.1 4.2 Chloride 99 98 Carbon Dioxide 26.5 26.8 BUN 14 12 Creatinine 0.52 L 0.52 L Calcium 8.0 L 8.1 L <Geoff Frost O - 04/18/18 11:50> Physical Exam Vital signs: Vital Signs 04/18/18 16:00 04/18/18 19:52 04/18/18 20:00 Temperature 97.8 F 97.9 F Pulse Rate 63 57 L 59 L Respiratory Rate 18 20 Blood Pressure 125/62 113/55 L Pulse Oximetry 97 96 04/19/18 00:00 04/19/18 00:19 04/19/18 04:00 Temperature 97.3 F L 97.8 F Pulse Rate 59 L 57 L 62 Respiratory Rate 20 20 Blood Pressure 111/59 L 125/61 Pulse Oximetry 99 95 04/19/18 08:00 04/19/18 10:37 04/19/18 12:00 Temperature 98.1 F 97.2 F L Pulse Rate 60 68 Respiratory Rate 16 17 17 Blood Pressure 113/55 L 122/58 L Pulse Oximetry 95 98 Intake & Output 04/18/18 04/19/18 04/19/18 18:59 06:59 18:59 Intake Total 1564 / 1564 470 / 470 100 / 100 Output Total 1150 / 1150 1350 / 1350 Balance 414 / 414 -880 / -880 100 / 100 Weight 60.6 kg Intake: IV 400 / 400 350 / 350 100 / 100 Zerbaxa Inj 1,500 MG In NS Inj 100 / 100 100 / 100 100 / 100 100 ML @ 100 mls/hr IV.SIG Q8H [facility] Rx#:[id number] Zosyn 3.375 GM Premix 50 ML @ 50 / 50 100 mls/hr IV.SIG Q6H ACE Rx#: [id number] Vancomycin Inj 1,000 MG In NS 250 / 250 250 / 250 Inj 250 ML @ 250 mls/hr IV.SIG Q12H [facility] Rx#:[id number] Oral 1164 / 1164 120 / 120 Output: Urine 1150 / 1150 Urine Amount (Catheter) 1350 / 1350 Condom 1350 / 1350 Other: Date of Last Bowel Movement 04/15/18 04/15/18 <Saji Johnson L - 04/19/18 14:43> Vital Signs 04/17/18 12:00 04/17/18 16:00 04/17/18 20:00 Temperature 97.7 F 98.1 F 98.3 F Pulse Rate 64 67 63 Respiratory Rate 18 18 20 Blood Pressure 129/61 122/70 117/56 L Pulse Oximetry 97 97 97 04/17/18 20:02 04/17/18 22:48 04/18/18 00:00 Temperature 97.6 F Pulse Rate 62 59 L Respiratory Rate 20 20 Blood Pressure 118/56 L Pulse Oximetry 97 04/18/18 00:12 04/18/18 01:37 04/18/18 03:03 Temperature Pulse Rate 55 L Respiratory Rate 18 18 Blood Pressure Pulse Oximetry 04/18/18 04:00 04/18/18 04:05 04/18/18 06:33 Temperature 97.3 F L Pulse Rate 61 58 L Respiratory Rate 20 20 Blood Pressure 143/66 H Pulse Oximetry 99 04/18/18 08:00 Temperature 97.5 F L Pulse Rate 64 Respiratory Rate 18 Blood Pressure 136/61 Pulse Oximetry 95 Intake & Output 04/17/18 04/18/18 04/18/18 18:59 06:59 18:59 Intake Total 718.5 / 718.5 470 / 470 Output Total 1150 / 1150 1850 / 1850 Balance -431.5 / -431.5 -1380 / -1380 Weight 58.3 kg Intake: IV 358.5 / 358.5 350 / 350 Zosyn 3.375 GM Premix 50 ML @ 100 / 100 100 / 100 100 mls/hr IV.SIG Q6H [facility] Rx#: [id number] Vancomycin Inj 1,000 MG In NS 250 / 250 Inj 250 ML @ 250 mls/hr IV.SIG Q12H ACE Rx#:[id number] Vancomycin Inj 850 MG In NS Inj 258.5 / 258.5 250 ML @ 250 mls/hr IV.SIG Q12H [facility] Rx#:[id number] Oral 360 / 360 120 / 120 Output: Urine 550 / 550 Urine Amount (Catheter) 600 / 600 1849 Condom 600 / 600 1849 Other: Date of Last Bowel Movement 04/15/18 <Geoff Frost - 04/18/18 11:50> Narrative: Physical examination GENERAL: Pleasant elderly male thin, appears malnourished. SKIN: Cool and dry. No generalized rash. Has some scattered ecchymoses in his UE. HEAD: Atraumatic. Normocephalic. No temporal wasting, or tenderness. EYES: Anisocoria and left eye, EOMI CARDIOVASCULAR: Regular rate and rhythm. No murmurs, rubs or gallops heard RESPIRATORY: Clear to auscultation. Breath sounds equal bilaterally. No rales , wheezing or rhonchi ABDOMEN: Soft, non-tender, nondistended. Bowel sounds present and normoactive. No guarding. No rebound. No organomegaly. EXTREMITIES: No clubbing, cyanosis, or edema. Atrophic muscular changes in both legs bilaterally. Patient has a necrotic wound in posterior right heel. Patient also has wound on right thigh that was bandaged with no signs of spreading erythema or infection. <Geoff Frost - 04/18/18 14:29> - Urinary Catheter Management Condom Cath placed during this visit: no <Saji Johnson - 04/19/18 14:43> no <Geoff Frost - 04/18/18 14:29> Reason for continuing: Not indwelling catheter <eGoff Frost - 04/18/18 11:50 > Indwelling Urethral Catheter Cath placed during this visit: no <Saji Johnson Benjamín - 04/19/18 14:43> yes, but has since been removed by the nurse <Geoff Frost 04/18/18 14:29> Reason for continuing: Not indwelling catheter <Geoff Frost 04/18/18 11:50 > Insertion date: 04/11/18 <Geoff Frost 04/18/18 11:50> Insertion time: 21:08 <Geoff Frost 04/18/18 11:50> Removal date: 04/12/18 <Geoff Frost 04/18/18 11:50> Removal time: 11:35 <Geoff Frost 04/18/18 11:50> Straight Cath placed during this visit: no <Saji Johnson Benjamín - 04/19/18 14:43> yes <Geoff Frost 04/18/18 14:29> Reason for continuing: Other continuation reason <Geoff Frost 04/18/18 11: 50> Insertion date: 04/11/18 <Geoff Frost 04/18/18 11:50> Insertion time: 21:08 <Geoff Frost 04/18/18 11:50> Assessment and Plan - Assessment (1) Osteomyelitis of ankle Code(s): M86.9 - Osteomyelitis, unspecified Status: Acute (2) Chronic wound of extremity Status: Acute (3) MRSA (methicillin resistant staph aureus) culture positive Code(s): Z22.322 - Carrier or suspected carrier of Methicillin resistant Staphylococcus aureus Status: Acute (4) GI bleed Code(s): K92.2 - Gastrointestinal hemorrhage, unspecified Status: Acute (5) PAD (peripheral artery disease) Code(s): I73.9 - Peripheral vascular disease, unspecified Status: Chronic (6) Bandemia Code(s): D72.825 - Bandemia Status: Acute (7) Hydronephrosis Code(s): N13.30 - Unspecified hydronephrosis Status: Acute (8) HTN (hypertension) Code(s): I10 - Essential (primary) hypertension Status: Acute (9) Diabetes Code(s): E11.9 - Type 2 diabetes mellitus without complications Status: Acute (10) Acute blood loss anemia Code(s): D62 - Acute posthemorrhagic anemia Status: Resolved (11) Malnutrition Code(s): E46 - Unspecified protein-calorie malnutrition Status: Acute (12) Anisocoria Code(s): H57.02 - Anisocoria Status: Acute (13) Nutrition, metabolism, and development symptoms Code(s): R63.8 - Other symptoms and signs concerning food and fluid intake Status: Acute <Saji Johnson - 04/19/18 14:43> (1) Osteomyelitis of ankle Code(s): M86.9 - Osteomyelitis, unspecified Status: Acute Plan: MRI showed evidence of osteomyelitis of right ankle which likely has been brewing for some time in this diabetic patient with PAD with chronic lower- extremity non-healing ulcers Culture positive for MRSA at different site (right thigh wound) Wound Cx of right ankle showed Pseudomonas as well as multidrug-resistant Proteus and group D enterococcus Blood cultures negative Afebrile * Podiatry following, appreciate assistance; will f/u recommendations for likely surgical intervention * ID consulted, appreciate recs * Continue vancomycin * Continue Zosyn begin Zerbaxa * Angiogram of the right lower extremity on Saturday * Further recs to follow * Wound care consulted, appreciate recs * See plan below * Pain management with [place] scheduled, gabapentin, morphine for breakthrough pain, (2) Chronic wound of extremity Status: Acute Plan: Patient currently follows up with wound care as an outpatient Right hip wound, super observant dressing daily Skin tear lower left extremity, Santyl covered and dry dressing daily Right heel wound, apply gentamicin cream twice daily, see above plan for associated osteomyelitis Wound care consulted, appreciate recommendations * Cleanse wound to R Achilles heel with normal saline only and pat dry. Apply gentamicin mixed with Santyl 50/ 50 and apply to wound bed * Cover with ABD pad, and secure with rolled gauze and tape. Change dressing daily, until seen by podiatry. * Cleanse wound to R hip with normal saline and pat dry. Apply Optilock dressing secured with paper tape Change PRN for saturation or dislodgement * Cleanse wound to L posterior lower leg with normal saline and pat dry. Apply optifoam gentle 4x4 dressing change dressing every 3 days or PRN if saturated or dislodged. (3) MRSA (methicillin resistant staph aureus) culture positive Code(s): Z22.322 - Carrier or suspected carrier of Methicillin resistant Staphylococcus aureus Status: Acute Plan: This patient suffers from chronic nonhealing wounds likely secondary to peripheral arterial disease and DM. Patient had wound from right thigh cultured which ultimately grew MRSA. -Monitor for fevers and signs of systemic illness -Antibiotic therapy as above (4) GI bleed Code(s): K92.2 - Gastrointestinal hemorrhage, unspecified Status: Acute Plan: Initially presented with anemia and dark stools EGD demonstrates mild gastritis in the gastric fundus, gastric body, and gastric antrum. Deformity was found the duodenal bulb. Normal duodenal mucosa in the second part of the duodenum and third part duodenum. Retroflex views revealed no abnormalities. Colonoscopy negative terminal ileum.: Significant amount of stool throughout the colon interfere with vision with small lesion, diverticular disease, no sign of active bleeding at this point. Rectum small ulcer in the rectum biopsy was done not actively bleeding GI on board, appreciated recommendations -Diabetic [id number] -Advised patient to follow-up with GI post discharge for biopsy results -Monitor labs -Monitor for bleeding and transfuse if required -Continue PPI -Bowel regimen -Supportive care -Further recommendations to follow -At this time, declining any further colonoscopies (5) PAD (peripheral artery disease) Code(s): I73.9 - Peripheral vascular disease, unspecified Status: Chronic Plan: s/p recent right LE arterectomy. Patient scheduled to undergo the right lower extremity on Saturday. (6) Bandemia Code(s): D72.825 - Bandemia Status: Acute Plan: Resolved, likely due to osteomyelitis. See above plan. (7) Hydronephrosis Code(s): N13.30 - Unspecified hydronephrosis Status: Acute Plan: Abdominal pelvis CT demonstrates development of moderate left hydronephrosis and hydroureter without ureteral obstruction. Also demonstrates stool ball in the rectum large amount of stool throughout the colon. Patient had a bladder scan 04/11 that revealed of a residual volume of 231 mL. Patient currently voiding well and is graded 200 mL of fluid today. Patient has no CVA tenderness. - Continue to monitor I's and O's. (8) HTN (hypertension) Code(s): I10 - Essential (primary) hypertension Status: Acute Plan: Continue Cardizem and amiodarone (9) Diabetes Code(s): E11.9 - Type 2 diabetes mellitus without complications Status: Acute Plan: Held home glipizide, Januvia Accu-Cheks Low-dose sliding scale Hypoglycemia protocol in place (10) Acute blood loss anemia Code(s): D62 - Acute posthemorrhagic anemia Status: Resolved Plan: In view of negative EGD/colonoscopy his present anemia is likely chronic. H/H low but stable. -Monitor H/H -Consider iron replacement (11) Malnutrition Code(s): E46 - Unspecified protein-calorie malnutrition Status: Acute Plan: This patient appears thin and possibly malnourished. Patient has significant muscle atrophy in arms and legs that are partially consistent with age and lack of activity. -Begin diet mentation with Ensure (12) Anisocoria Code(s): H57.02 - Anisocoria Status: Acute Plan: Most likely chronic in view of no other alarming ophthalmologic signs/symptoms Can follow up with Ophthalmology outpatient (13) Nutrition, metabolism, and development symptoms Code(s): R63.8 - Other symptoms and signs concerning food and fluid intake Status: Acute Plan: Fluids: P.o. hydration Diet: Diabetic supplements with protein shake Vitals every 4, monitor I's and O's DVT prophylaxis: Contraindicated due to upper GI bleed <Geoff Frost O - 04/18/18 13:58> - Attending Attestation I discussed and evaluated the patient with the resident and agree with the assessment and plan as documented. <Saji Johnson L - 04/19/18 14:43> <Geoff Frost - Last Filed: 04/18/18 13:58> (1) Osteomyelitis of ankle Qualifiers: Osteomyelitis type: unspecified type Laterality: right Qualified Code(s): M86.9 - Osteomyelitis, unspecified (4) GI bleed Qualifiers: GI bleed type/associated pathology: unspecified gastrointestinal hemorrhage type Qualified Code(s): K92.2 - Gastrointestinal hemorrhage, unspecified (7) Hydronephrosis Qualifiers: Hydronephrosis type: unspecified Qualified Code(s): N13.30 - Unspecified hydronephrosis <Saji Johnson - Last Filed: 04/19/18 14:43> (1) Osteomyelitis of ankle Qualifiers: Osteomyelitis type: unspecified type Laterality: right Qualified Code(s): M86.9 - Osteomyelitis, unspecified (4) GI bleed Qualifiers: GI bleed type/associated pathology: unspecified gastrointestinal hemorrhage type Qualified Code(s): K92.2 - Gastrointestinal hemorrhage, unspecified (7) Hydronephrosis Qualifiers: Hydronephrosis type: unspecified Qualified Code(s): N13.30 - Unspecified hydronephrosis <FrostGeoff harris O - Last Filed: 04/18/18 13:58> (1) Osteomyelitis of ankle Qualifiers: Osteomyelitis type: unspecified type Laterality: right Qualified Code(s): M86.9 - Osteomyelitis, unspecified (4) GI bleed Qualifiers: GI bleed type/associated pathology: unspecified gastrointestinal hemorrhage type Qualified Code(s): K92.2 - Gastrointestinal hemorrhage, unspecified (7) Hydronephrosis Qualifiers: Hydronephrosis type: unspecified Qualified Code(s): N13.30 - Unspecified hydronephrosis <Saji Johnson - Last Filed: 04/19/18 14:43> (1) Osteomyelitis of ankle Qualifiers: Osteomyelitis type: unspecified type Laterality: right Qualified Code(s): M86.9 - Osteomyelitis, unspecified (4) GI bleed Qualifiers: GI bleed type/associated pathology: unspecified gastrointestinal hemorrhage type Qualified Code(s): K92.2 - Gastrointestinal hemorrhage, unspecified (7) Hydronephrosis Qualifiers: Hydronephrosis type: unspecified Qualified Code(s): N13.30 - Unspecified hydronephrosis
[2018-04-18] MEDS: CEFTOLOZANE IV.SIG SCH ×2 (14:41→22:20)
[2018-04-18] MEDS: TAZOBACTAM IV.SIG SCH ×2 (14:41→22:20)
[2018-04-18] MEDS: SODIUM CHLOR 0.9% IV.SIG SCH ×2 (14:41→22:20)
[2018-04-19] MEDS ORDERED: Pharmacy Ordered Lab Info OTHER ONE (00:45)
[2018-04-19] MEDS: Vancomycin Inj 1,000 MG in Sodium Chlor 0.9% Inj 250 ML IV.SIG SCH ×2 (01:58→13:19)
[2018-04-19] MEDS: CEFTOLOZANE IV.SIG SCH ×3 (06:09→21:46)
[2018-04-19] MEDS: Levothyroxine 125 MCG Tablet PO SCH (06:09)
[2018-04-19] MEDS: TAZOBACTAM IV.SIG SCH ×3 (06:09→21:46)
[2018-04-19] MEDS: SODIUM CHLOR 0.9% IV.SIG SCH ×3 (06:09→21:46)
[2018-04-19] MEDS: Insulin NovoLOG Aspart Correctional Sugar Inj SQ SCH ×4 (08:05→21:44)
[2018-04-19 08:16] LABS: Baso # (Auto) 0.2 th/mm3 (0.0-0.2); Baso % (Auto) 1.8 % (0.0-2.0); Eos # (Auto) 0.6 th/mm3 (0.0-0.4); Eos % (Auto) 5.3 % (0.0-4.0); Hematocrit 27.8 % (39.0-51.0); Hemoglobin 9.3 gm/dL (13.0-17.0); Lymph # (Auto) 1.5 th/mm3 (1.0-4.8); Lymph % (Auto) 14.5 % (9.0-44.0); Mean Corpuscular HGB Conc 33.3 % (32.0-36.0); Mean Corpuscular Hemoglobin 31.8 pg (27.0-34.0); Mean Corpuscular Volume 95.5 fL (80.0-100.0); Mean Platelet Volume 6.4 fL (7.0-11.0); Mono # (Auto) 0.9 th/mm3 (0.0-0.9); Mono % (Auto) 8.9 % (0.0-8.0); Neut # (Auto) 7.3 th/mm3 (1.8-7.7); Neut % (Auto) 69.5 % (16.0-70.0); Platelet Count 475 th/mm3 (150-450); Red Blood Count 2.91 mil/mm3 (4.50-5.90); Red Cell Distribution Width 15.7 % (11.6-17.2); White Blood Count 10.5 th/mm3 (4.0-11.0)
[2018-04-19 08:17] LABS: Anion Gap 9 meq/L (5-15); Blood Urea Nitrogen 11 mg/dL (7-18); Calcium 8.1 mg/dL (8.5-10.1); Carbon Dioxide 27.3 meq/L (21.0-32.0); Chloride 100 meq/L (98-107); Glomerular Filtration Rate Greater Than 89 mL/min (>89); Glucose,Random 118 mg/dL (74-106); Potassium 4.1 meq/L (3.5-5.1); Sodium 136 meq/L (136-145)
--- NOTE | 2018-04-19 09:29 | P.PNFP ---
Subjective Interval history: No acute events overnight. Patient lying in bed this morning watching TV. States that he is impatient and is ready to go home. Discussed with patient about severe infection in his right heel and that he needs it taken care of before he could go home. No other complaints this morning. Patient eating well. Denies fevers, chest pain, shortness of breath, nausea vomiting, and abdominal pain. <Erica Hurst T - 04/19/18 09:44> Results - Labs Result diagrams: 05/13/18 05:08 05/13/18 05:08 <Saji Johnson - 05/14/18 15:58> Abnormal lab results 05/13/18 05/13/18 05/14/18 Range/Units 17:47 20:00 07:31 POC Glucose 150 H 138 H 129 H (68-110) mg/dl 05/14/18 Range/Units 13:09 POC Glucose 140 H (68-110) mg/dl <Saji Johnson - 05/14/18 15:58> Abnormal lab results 04/18/18 04/18/18 04/18/18 Range/Units 12:23 16:49 22:18 RBC (4.50-5.90) mil/mm3 Hgb (13.0-17.0) gm/dL Hct (39.0-51.0) % Plt Count (150-450) th/mm3 MPV (7.0-11.0) fL Riley % (Auto) (0.0-8.0) % Eos % (Auto) (0.0-4.0) % Eos # (Auto) (0.0-0.4) th/mm3 Creatinine (0.60-1.30) mg/dL POC Glucose 138 H 155 H 192 H (68-110) mg/dl Random Glucose (74-106) mg/dL Calcium (8.5-10.1) mg/dL Vancomycin Trough (5.0-10.0) mcg/mL 04/19/18 04/19/18 04/19/18 Range/Units 00:00 05:39 05:39 RBC 2.91 L (4.50-5.90) mil/mm3 Hgb 9.3 L (13.0-17.0) gm/dL Hct 27.8 L (39.0-51.0) % Plt Count 475 H (150-450) th/mm3 MPV 6.4 L (7.0-11.0) fL Riley % (Auto) 8.9 H (0.0-8.0) % Eos % (Auto) 5.3 H (0.0-4.0) % Eos # (Auto) 0.6 H (0.0-0.4) th/mm3 Creatinine 0.57 L (0.60-1.30) mg/dL POC Glucose (68-110) mg/dl Random Glucose 118 H (74-106) mg/dL Calcium 8.1 L (8.5-10.1) mg/dL Vancomycin Trough 12.5 H (5.0-10.0) mcg/mL 04/19/18 Range/Units 07:44 RBC (4.50-5.90) mil/mm3 Hgb (13.0-17.0) gm/dL Hct (39.0-51.0) % Plt Count (150-450) th/mm3 MPV (7.0-11.0) fL Riley % (Auto) (0.0-8.0) % Eos % (Auto) (0.0-4.0) % Eos # (Auto) (0.0-0.4) th/mm3 Creatinine (0.60-1.30) mg/dL POC Glucose 139 H (68-110) mg/dl Random Glucose (74-106) mg/dL Calcium (8.5-10.1) mg/dL Vancomycin Trough (5.0-10.0) mcg/mL Short CBC 04/19/18 Range/Units 05:39 WBC 10.5 (4.0-11.0) th/mm3 Hgb 9.3 L (13.0-17.0) gm/dL Hct 27.8 L (39.0-51.0) % Plt Count 475 H (150-450) th/mm3 BMP 04/19/18 05:39 Sodium 136 Potassium 4.1 Chloride 100 Carbon Dioxide 27.3 BUN 11 Creatinine 0.57 L Calcium 8.1 L <Erica Hurst T - 04/19/18 09:29> Physical Exam Vital signs: Vital Signs 05/13/18 16:00 05/13/18 20:00 05/13/18 23:52 Temperature 97.3 F L 98.5 F 97.6 F Pulse Rate 55 L 54 L 55 L Respiratory Rate 18 19 18 Blood Pressure 116/60 105/56 L 134/64 Pulse Oximetry 96 96 96 05/14/18 00:00 05/14/18 04:00 05/14/18 08:00 Temperature 97.2 F L Pulse Rate 55 L 60 61 Respiratory Rate 19 18 Blood Pressure 127/61 135/61 Pulse Oximetry 95 96 05/14/18 10:45 05/14/18 12:00 Temperature 97.3 F L Pulse Rate 54 L Respiratory Rate 10 L 18 Blood Pressure 126/61 Pulse Oximetry 96 Intake & Output 05/13/18 05/14/18 05/14/18 18:59 06:59 18:59 Intake Total 782.5 / 782.5 882.5 / 882.5 100 / 100 Output Total 1400 / 1400 801 / 801 Balance -617.5 / -617.5 81.5 / 81.5 100 / 100 Weight 77.6 kg Intake: IV 362.5 / 362.5 462.5 / 462.5 100 / 100 Zerbaxa Inj 1,500 MG In NS Inj 100 / 100 200 / 200 100 / 100 100 ML @ 100 mls/hr IV.SIG Q8H ACE Rx#:[id number] Vancomycin Inj 1,250 MG In NS 262.5 / 262.5 262.5 / 262.5 Inj 250 ML @ 262.5 mls/hr IV. SIG Q18H ACE Rx#:[id number] Oral 420 / 420 420 / 420 Output: Urine 1400 / 1400 800 / 800 Stool Other: # Voids 1 Date of Last Bowel Movement 05/13/18 05/14/18 05/13/18 # Bowel Movements 1 <Saji Johnson L - 05/14/18 15:58> Vital Signs 04/18/18 12:00 04/18/18 16:00 04/18/18 19:52 Temperature 97.8 F 97.8 F Pulse Rate 59 L 63 57 L Respiratory Rate 18 18 Blood Pressure 103/57 L 125/62 Pulse Oximetry 97 97 04/18/18 20:00 04/19/18 00:00 04/19/18 00:19 Temperature 97.9 F 97.3 F L Pulse Rate 59 L 59 L 57 L Respiratory Rate 20 20 Blood Pressure 113/55 L 111/59 L Pulse Oximetry 96 99 04/19/18 04:00 04/19/18 08:00 Temperature 97.8 F 98.1 F Pulse Rate 62 60 Respiratory Rate 20 16 Blood Pressure 125/61 113/55 L Pulse Oximetry 95 95 Intake & Output 04/18/18 04/19/18 04/19/18 18:59 06:59 18:59 Intake Total 1564 / 1564 470 / 470 100 / 100 Output Total 1150 / 1150 1350 / 1350 Balance 414 / 414 -880 / -880 100 / 100 Weight 60.6 kg Intake: IV 400 / 400 350 / 350 100 / 100 Zerbaxa Inj 1,500 MG In NS Inj 100 / 100 100 / 100 100 / 100 100 ML @ 100 mls/hr IV.SIG Q8H ACE Rx#:[id number] Zosyn 3.375 GM Premix 50 ML @ 50 / 50 100 mls/hr IV.SIG Q6H ACE Rx#: [id number] Vancomycin Inj 1,000 MG In NS 250 / 250 250 / 250 Inj 250 ML @ 250 mls/hr IV.SIG Q12H ACE Rx#:[id number] Oral 1164 / 1164 120 / 120 Output: Urine 1150 / 1150 Urine Amount (Catheter) 1350 / 1350 Condom 1350 / 1350 Other: Date of Last Bowel Movement 04/15/18 <Erica Hurst T - 04/19/18 09:29> Narrative: Physical examination GENERAL: Pleasant elderly male thin, appears malnourished. SKIN: Cool and dry. No generalized rash. Has some scattered ecchymoses in his UE. HEAD: Atraumatic. Normocephalic. No temporal wasting, or tenderness. EYES: Anisocoria and left eye, EOMI CARDIOVASCULAR: Regular rate and rhythm. No murmurs, rubs or gallops heard RESPIRATORY: Clear to auscultation. Breath sounds equal bilaterally. No rales , wheezing or rhonchi ABDOMEN: Soft, non-tender, nondistended. Bowel sounds present and normoactive. No guarding. No rebound. No organomegaly. EXTREMITIES: No clubbing, cyanosis, or edema. Atrophic muscular changes in both legs bilaterally. Right heel covered in bandage and in a boot. Patient also has wound on right thigh that was bandaged with no signs of spreading erythema or infection. <Erica Hurst T - 04/19/18 09:44> - Urinary Catheter Management Condom Cath placed during this visit: no <AlexSaji Butts - 05/14/18 15:58> no <Erica Hurst T - 04/19/18 09:44> Reason for continuing: Not indwelling catheter <Erica Hurst T 04/19/18 09 :29> Indwelling Urethral Catheter Cath placed during this visit: no <AlexSaji Butts - 05/14/18 15:58> yes, but has since been removed by the nurse <Erica Hurst T 04/19/18 09:44> Reason for continuing: Not indwelling catheter <Erica Hurst T 04/19/18 09 :29> Insertion date: 04/11/18 <Erica Hurst Umana T - 04/19/18 09:29> Insertion time: 21:08 <Erica Hurst Umana T 04/19/18 09:29> Removal date: 04/12/18 <Erica Hurst Umana T - 04/19/18 09:29> Removal time: 11:35 <Erica Hurst Umana T - 04/19/18 09:29> Straight Cath placed during this visit: no <AlexSaji Butts - 05/14/18 15:58> yes <Erica Hurst T - 04/19/18 09:44> Reason for continuing: Other continuation reason <Erica Hurst T 04/19/18 09:29> Insertion date: 04/11/18 <Erica Hurst Umana T - 04/19/18 09:29> Insertion time: 21:08 <VanTerrelln Umana T - 04/19/18 09:29> Assessment and Plan - Assessment (1) Osteomyelitis of ankle Code(s): M86.9 - Osteomyelitis, unspecified Status: Acute (2) Ischemia of foot Code(s): I99.8 - Other disorder of circulatory system Status: Acute (3) Anemia Code(s): D64.9 - Anemia, unspecified Status: Acute (4) Infection associated with internal hip prosthesis Code(s): T84.59XA - Infection and inflammatory reaction due to other internal joint prosthesis, initial encounter; Z96.649 - Presence of unspecified artificial hip joint Status: Acute (5) Chronic wound of extremity Status: Chronic (6) MRSA (methicillin resistant staph aureus) culture positive Code(s): Z22.322 - Carrier or suspected carrier of Methicillin resistant Staphylococcus aureus Status: Acute (7) PAD (peripheral artery disease) Code(s): I73.9 - Peripheral vascular disease, unspecified Status: Chronic (8) Bandemia Code(s): D72.825 - Bandemia Status: Resolved (9) Hydronephrosis Code(s): N13.30 - Unspecified hydronephrosis Status: Resolved (10) HTN (hypertension) Code(s): I10 - Essential (primary) hypertension Status: Acute (11) Diabetes Code(s): E11.9 - Type 2 diabetes mellitus without complications Status: Acute (12) Malnutrition Code(s): E46 - Unspecified protein-calorie malnutrition Status: Acute (13) Anisocoria Code(s): H57.02 - Anisocoria Status: Acute (14) Suicidal ideation Code(s): R45.851 - Suicidal ideations Status: Acute (15) Nutrition, metabolism, and development symptoms Code(s): R63.8 - Other symptoms and signs concerning food and fluid intake Status: Acute <Saji Johnson - 05/14/18 15:58> (1) Osteomyelitis of ankle Code(s): M86.9 - Osteomyelitis, unspecified Status: Acute Plan: MRI showed evidence of osteomyelitis of right ankle which likely has been brewing for some time in this diabetic patient with PAD with chronic lower- extremity non-healing ulcers Culture positive for MRSA at different site (right thigh wound) Wound Cx of right ankle showed Pseudomonas as well as multidrug-resistant Proteus and group D enterococcus Blood cultures NGTD Afebrile * Podiatry following, appreciate assistance; will f/u recommendations for likely surgical intervention * ID consulted, appreciate recs * Continue vancomycin * Continue Zerbaxa * Angiogram of the right lower extremity on Saturday * Further recs to follow * Wound care consulted, appreciate recs * See plan below * Pain management with [place] scheduled, gabapentin, morphine for breakthrough pain, (2) Chronic wound of extremity Status: Acute Plan: Patient currently follows up with wound care as an outpatient Right hip wound, super observant dressing daily Skin tear lower left extremity, Santyl covered and dry dressing daily Right heel wound, apply gentamicin cream twice daily, see above plan for associated osteomyelitis Wound care consulted, appreciate recommendations * Cleanse wound to R Achilles heel with normal saline only and pat dry. Apply gentamicin mixed with Santyl 50/ 50 and apply to wound bed * Cover with ABD pad, and secure with rolled gauze and tape. Change dressing daily, until seen by podiatry. * Cleanse wound to R hip with normal saline and pat dry. Apply Optilock dressing secured with paper tape Change PRN for saturation or dislodgement * Cleanse wound to L posterior lower leg with normal saline and pat dry. Apply optifoam gentle 4x4 dressing change dressing every 3 days or PRN if saturated or dislodged. (3) MRSA (methicillin resistant staph aureus) culture positive Code(s): Z22.322 - Carrier or suspected carrier of Methicillin resistant Staphylococcus aureus Status: Acute Plan: This patient suffers from chronic nonhealing wounds likely secondary to peripheral arterial disease and DM. Patient had wound from right thigh cultured which ultimately grew MRSA. -Monitor for fevers and signs of systemic illness -Antibiotic therapy as above (4) GI bleed Code(s): K92.2 - Gastrointestinal hemorrhage, unspecified Status: Acute Plan: Initially presented with anemia and dark stools EGD demonstrates mild gastritis in the gastric fundus, gastric body, and gastric antrum. Deformity was found the duodenal bulb. Normal duodenal mucosa in the second part of the duodenum and third part duodenum. Retroflex views revealed no abnormalities. Colonoscopy negative terminal ileum.: Significant amount of stool throughout the colon interfere with vision with small lesion, diverticular disease, no sign of active bleeding at this point. Rectum small ulcer in the rectum biopsy was done not actively bleeding GI on board, appreciated recommendations -Diabetic [id number] -Advised patient to follow-up with GI post discharge for biopsy results -Monitor labs -Monitor for bleeding and transfuse if required -Continue PPI -Bowel regimen -Supportive care -Further recommendations to follow -At this time, declining any further colonoscopies (5) PAD (peripheral artery disease) Code(s): I73.9 - Peripheral vascular disease, unspecified Status: Chronic Plan: s/p recent right LE arterectomy. Patient scheduled to undergo the right lower extremity on Saturday. (6) Bandemia Code(s): D72.825 - Bandemia Status: Acute Plan: Resolved, likely due to osteomyelitis. See above plan. (7) Hydronephrosis Code(s): N13.30 - Unspecified hydronephrosis Status: Acute Plan: Abdominal pelvis CT demonstrates development of moderate left hydronephrosis and hydroureter without ureteral obstruction. Also demonstrates stool ball in the rectum large amount of stool throughout the colon. Patient had a bladder scan 04/11 that revealed of a residual volume of 231 mL. Patient currently voiding well and is graded 200 mL of fluid today. Patient has no CVA tenderness. - Continue to monitor I's and O's. (8) HTN (hypertension) Code(s): I10 - Essential (primary) hypertension Status: Acute Plan: Continue Cardizem and amiodarone (9) Diabetes Code(s): E11.9 - Type 2 diabetes mellitus without complications Status: Acute Plan: Held home glipizide, Januvia Accu-Cheks Low-dose sliding scale Hypoglycemia protocol in place (10) Acute blood loss anemia Code(s): D62 - Acute posthemorrhagic anemia Status: Resolved Plan: In view of negative EGD/colonoscopy his present anemia is likely chronic. H/H low but stable. -Monitor H/H -Consider iron replacement (11) Malnutrition Code(s): E46 - Unspecified protein-calorie malnutrition Status: Acute Plan: This patient appears thin and possibly malnourished. Patient has significant muscle atrophy in arms and legs that are partially consistent with age and lack of activity. -Begin diet mentation with Ensure (12) Anisocoria Code(s): H57.02 - Anisocoria Status: Acute Plan: Most likely chronic in view of no other alarming ophthalmologic signs/symptoms Can follow up with Ophthalmology outpatient (13) Nutrition, metabolism, and development symptoms Code(s): R63.8 - Other symptoms and signs concerning food and fluid intake Status: Acute Plan: Fluids: P.o. hydration Diet: Diabetic supplements with protein shake Vitals every 4, monitor I's and O's DVT prophylaxis: Contraindicated due to upper GI bleed <Erica Hurst - 04/19/18 09:35> - Attending Attestation The exam, history, and the medical decision-making described in the above note were completed with the assistance of the resident physician. I reviewed and agree with the findings presented. I attest that I had a [id number] encounter with the patient on the same day, and personally performed and documented my assessment and findings in the medical record. <AlexSaji Benjamín - 05/14/18 15:58> <Erica Hurst - Last Filed: 04/19/18 09:35> (1) Osteomyelitis of ankle Qualifiers: Osteomyelitis type: unspecified type Laterality: right Qualified Code(s): M86.9 - Osteomyelitis, unspecified (4) GI bleed Qualifiers: GI bleed type/associated pathology: unspecified gastrointestinal hemorrhage type Qualified Code(s): K92.2 - Gastrointestinal hemorrhage, unspecified (7) Hydronephrosis Qualifiers: Hydronephrosis type: unspecified Qualified Code(s): N13.30 - Unspecified hydronephrosis <AlexSaji Butts - Last Filed: 05/14/18 15:58> (1) Osteomyelitis of ankle Qualifiers: Osteomyelitis type: other chronic Laterality: right Qualified Code(s): M86.671 - Other chronic osteomyelitis, right ankle and foot (9) Hydronephrosis Qualifiers: Hydronephrosis type: unspecified Qualified Code(s): N13.30 - Unspecified hydronephrosis <Erica Hurst - Last Filed: 04/19/18 09:35> (1) Osteomyelitis of ankle Qualifiers: Osteomyelitis type: unspecified type Laterality: right Qualified Code(s): M86.9 - Osteomyelitis, unspecified (4) GI bleed Qualifiers: GI bleed type/associated pathology: unspecified gastrointestinal hemorrhage type Qualified Code(s): K92.2 - Gastrointestinal hemorrhage, unspecified (7) Hydronephrosis Qualifiers: Hydronephrosis type: unspecified Qualified Code(s): N13.30 - Unspecified hydronephrosis <Saji Johnson - Last Filed: 05/14/18 15:58> (1) Osteomyelitis of ankle Qualifiers: Osteomyelitis type: other chronic Laterality: right Qualified Code(s): M86.671 - Other chronic osteomyelitis, right ankle and foot (9) Hydronephrosis Qualifiers: Hydronephrosis type: unspecified Qualified Code(s): N13.30 - Unspecified hydronephrosis
[2018-04-19] MEDS: Potassium Phos/Sodium Phos 250 MG Tablet PO SCH ×4 (09:44→21:44)
[2018-04-19] MEDS: Gabapentin 300 MG Capsule PO SCH ×3 (09:45→17:37)
[2018-04-19] MEDS: Sodium Chloride 1 GM Tablet PO SCH ×3 (09:45→17:37)
[2018-04-19] MEDS: Amiodarone 200 MG Tablet PO SCH ×2 (09:45→09:53)
[2018-04-19] MEDS: Ascorbic Acid 500 MG Tablet PO SCH ×2 (09:45→21:45)
[2018-04-19] MEDS: dilTIAZem 30 MG Tablet PO SCH ×4 (09:45→17:37)
[2018-04-19] MEDS: Magnesium Oxide 400 MG Tablet PO SCH ×4 (09:45→21:44)
[2018-04-19] MEDS: Polyethylene Glycol 3350 17 GM Packet PO SCH (09:46)
[2018-04-19] MEDS: Ferrous Sulfate 325 MG Tablet PO SCH ×3 (09:46→17:38)
[2018-04-19] MEDS: Collagenase Oint 30 GM Tube TOPICAL SCH (09:47)
[2018-04-19] MEDS: Gentamicin 0.1% Cream 15 GM Cream TOPICAL SCH ×2 (09:50→21:46)
[2018-04-19 11:34] LABS: Eosinophils 2 % (0-4); Lymphocytes 10 % (9-44); Monocytes 7 % (0-8); Myelocytes 2 % (0-0)
[2018-04-19 11:35] LABS: Platelet Morphology Normal (Normal); Toxic Granulation 1+
[2018-04-20] MEDS: Vancomycin Inj 1,000 MG in Sodium Chlor 0.9% Inj 250 ML IV.SIG SCH ×2 (01:02→12:05)
[2018-04-20] MEDS: Levothyroxine 125 MCG Tablet PO SCH (05:13)
[2018-04-20] MEDS: CEFTOLOZANE IV.SIG SCH ×3 (05:14→21:02)
[2018-04-20] MEDS: SODIUM CHLOR 0.9% IV.SIG SCH ×3 (05:14→21:02)
[2018-04-20] MEDS: TAZOBACTAM IV.SIG SCH ×3 (05:14→21:02)
[2018-04-20] MEDS: Insulin NovoLOG Aspart Correctional Sugar Inj SQ SCH ×4 (08:00→20:35)
[2018-04-20] MEDS: Polyethylene Glycol 3350 17 GM Packet PO SCH (08:31)
[2018-04-20] MEDS: Potassium Phos/Sodium Phos 250 MG Tablet PO SCH ×4 (08:32→20:34)
[2018-04-20] MEDS: Amiodarone 200 MG Tablet PO SCH (08:32)
[2018-04-20] MEDS: Magnesium Oxide 400 MG Tablet PO SCH ×4 (08:32→20:34)
[2018-04-20] MEDS: Sodium Chloride 1 GM Tablet PO SCH ×3 (08:32→17:31)
[2018-04-20] MEDS: Ascorbic Acid 500 MG Tablet PO SCH ×2 (08:32→21:02)
[2018-04-20] MEDS: Ferrous Sulfate 325 MG Tablet PO SCH ×3 (08:32→17:31)
[2018-04-20] MEDS: Gabapentin 300 MG Capsule PO SCH ×3 (08:32→17:31)
[2018-04-20] MEDS: dilTIAZem 30 MG Tablet PO SCH ×3 (08:32→17:31)
[2018-04-20 10:03] LABS: Glomerular Filtration Rate Greater Than 89 mL/min (>89)
[2018-04-20] MEDS: Collagenase Oint 30 GM Tube TOPICAL SCH (12:04)
[2018-04-20] MEDS: Gentamicin 0.1% Cream 15 GM Cream TOPICAL SCH ×2 (12:04→20:33)
[2018-04-20] MEDS: Morphine Inj 4 MG/ML Vial IV.PUSH PRN (12:06)
[2018-04-20 12:53] LABS: Baso # (Auto) 0.3 th/mm3 (0.0-0.2); Baso % (Auto) 2.9 % (0.0-2.0); Eos # (Auto) 0.5 th/mm3 (0.0-0.4); Eos % (Auto) 4.5 % (0.0-4.0); Hematocrit 28.3 % (39.0-51.0); Hemoglobin 9.4 gm/dL (13.0-17.0); Lymph # (Auto) 1.5 th/mm3 (1.0-4.8); Lymph % (Auto) 12.9 % (9.0-44.0); Mean Platelet Volume 6.5 fL (7.0-11.0); Mono % (Auto) 8.9 % (0.0-8.0); Neut # (Auto) 8.2 th/mm3 (1.8-7.7); Neut % (Auto) 70.8 % (16.0-70.0); Platelet Count 481 th/mm3 (150-450); Red Blood Count 2.92 mil/mm3 (4.50-5.90); Red Cell Distribution Width 16.1 % (11.6-17.2); White Blood Count 11.7 th/mm3 (4.0-11.0)
--- NOTE | 2018-04-20 13:34 | P.PNFP ---
Subjective Interval history: 87 yo male with DM initially admitted for symptomatic anemia due to presumed GIB now found to have osteomyelitis of the right ankle. Today he feels well, pain is minimal in his right foot, no other aches/pains, no chest pain or shortness of breath. Tolerating diet. <AshleyIhsan S - 04/20/18 13:33> Results - Labs Result diagrams: 04/20/18 07:47 04/20/18 07:47 <Saji Johnson - 04/20/18 13:41> Abnormal lab results 04/19/18 04/19/18 04/20/18 Range/Units 15:26 20:06 07:31 WBC (4.0-11.0) th/mm3 RBC (4.50-5.90) mil/mm3 Hgb (13.0-17.0) gm/dL Hct (39.0-51.0) % Plt Count (150-450) th/mm3 MPV (7.0-11.0) fL Neut % (Auto) (16.0-70.0) % [place] % (Auto) (0.0-8.0) % Eos % (Auto) (0.0-4.0) % Baso % (Auto) (0.0-2.0) % Neut # (Auto) (1.8-7.7) th/mm3 [place] # (Auto) (0.0-0.9) th/mm3 Eos # (Auto) (0.0-0.4) th/mm3 Baso # (Auto) (0.0-0.2) th/mm3 Creatinine (0.60-1.30) mg/dL POC Glucose 164 H 124 H 151 H (68-110) mg/dl 04/20/18 04/20/18 04/20/18 Range/Units 07:47 07:47 11:51 WBC 11.7 H (4.0-11.0) th/mm3 RBC 2.92 L (4.50-5.90) mil/mm3 Hgb 9.4 L (13.0-17.0) gm/dL Hct 28.3 L (39.0-51.0) % Plt Count 481 H (150-450) th/mm3 MPV 6.5 L (7.0-11.0) fL Neut % (Auto) 70.8 H (16.0-70.0) % [place] % (Auto) 8.9 H (0.0-8.0) % Eos % (Auto) 4.5 H (0.0-4.0) % Baso % (Auto) 2.9 H (0.0-2.0) % Neut # (Auto) 8.2 H (1.8-7.7) th/mm3 [place] # (Auto) 1.0 H (0.0-0.9) th/mm3 Eos # (Auto) 0.5 H (0.0-0.4) th/mm3 Baso # (Auto) 0.3 H (0.0-0.2) th/mm3 Creatinine 0.57 L (0.60-1.30) mg/dL POC Glucose 128 H (68-110) mg/dl Short CBC 04/20/18 Range/Units 07:47 WBC 11.7 H (4.0-11.0) th/mm3 Hgb 9.4 L (13.0-17.0) gm/dL Hct 28.3 L (39.0-51.0) % Plt Count 481 H (150-450) th/mm3 BMP 04/20/18 07:47 Creatinine 0.57 L <Young,Saji L - 04/20/18 13:41> Abnormal lab results 04/19/18 04/19/18 04/20/18 Range/Units 15:26 20:06 07:31 WBC (4.0-11.0) th/mm3 RBC (4.50-5.90) mil/mm3 Hgb (13.0-17.0) gm/dL Hct (39.0-51.0) % Plt Count (150-450) th/mm3 MPV (7.0-11.0) fL Neut % (Auto) (16.0-70.0) % [place] % (Auto) (0.0-8.0) % Eos % (Auto) (0.0-4.0) % Baso % (Auto) (0.0-2.0) % Neut # (Auto) (1.8-7.7) th/mm3 [place] # (Auto) (0.0-0.9) th/mm3 Eos # (Auto) (0.0-0.4) th/mm3 Baso # (Auto) (0.0-0.2) th/mm3 Creatinine (0.60-1.30) mg/dL POC Glucose 164 H 124 H 151 H (68-110) mg/dl 04/20/18 04/20/18 04/20/18 Range/Units 07:47 07:47 11:51 WBC 11.7 H (4.0-11.0) th/mm3 RBC 2.92 L (4.50-5.90) mil/mm3 Hgb 9.4 L (13.0-17.0) gm/dL Hct 28.3 L (39.0-51.0) % Plt Count 481 H (150-450) th/mm3 MPV 6.5 L (7.0-11.0) fL Neut % (Auto) 70.8 H (16.0-70.0) % [place] % (Auto) 8.9 H (0.0-8.0) % Eos % (Auto) 4.5 H (0.0-4.0) % Baso % (Auto) 2.9 H (0.0-2.0) % Neut # (Auto) 8.2 H (1.8-7.7) th/mm3 [place] # (Auto) 1.0 H (0.0-0.9) th/mm3 Eos # (Auto) 0.5 H (0.0-0.4) th/mm3 Baso # (Auto) 0.3 H (0.0-0.2) th/mm3 Creatinine 0.57 L (0.60-1.30) mg/dL POC Glucose 128 H (68-110) mg/dl Short CBC 04/20/18 Range/Units 07:47 WBC 11.7 H (4.0-11.0) th/mm3 Hgb 9.4 L (13.0-17.0) gm/dL Hct 28.3 L (39.0-51.0) % Plt Count 481 H (150-450) th/mm3 BMP 04/20/18 07:47 Creatinine 0.57 L <Ihsan Ramirez S - 04/20/18 13:33> - Imaging Abdomen/Pelvis CT 04/11/18 11:57 CONCLUSION: 1. There is marked destructive changes of the right proximal femur identified. The trochanteric nail hardware now extends beyond the femoral head cortex partially destroyed. There is also a patchy/permeative appearance of the shield tuberosity without obvious fracture. 2. Stool ball in the rectum and a large amount of stool throughout the colon. 3. Nonobstructing left renal calculi and left renal cyst. 4. Interval development of moderate left hydronephrosis and hydroureter without obvious obstructing stone. Head CT 04/11/18 11:59 CONCLUSION: 1. Stable appearance of the brain. Ankle MRI 04/15/18 00:00 CONCLUSION: 1. Osteomyelitis of the posterior calcaneus with a near complete tear of the distal Achilles tendon. There is overlying cellulitis and subcutaneous edema with a small abscess adjacent to the distal Achilles tendon as measured above. There is edematous change on the plantar aspect of the foot with a tenosynovitis as above. No acute fracture identified. Mild bone edema tibia, nonspecific. Ankle X-Ray 04/15/18 00:00 CONCLUSION: Osteomyelitis of the posterior calcaneus with overlying soft tissue swelling and ulceration. No acute fracture. <Ihsan Ramirez S - 04/20/18 13:33> Physical Exam Vital signs: Vital Signs 04/19/18 16:00 04/19/18 16:05 04/19/18 20:00 Temperature 97.9 F 97.7 F Pulse Rate 65 62 Respiratory Rate 16 17 16 Blood Pressure 128/65 145/65 H Pulse Oximetry 97 99 04/20/18 08:00 04/20/18 12:00 Temperature 98.0 F 97.6 F Pulse Rate 63 68 Respiratory Rate 17 16 Blood Pressure 117/57 L 126/60 Pulse Oximetry 98 95 Intake & Output 04/19/18 04/20/18 04/20/18 19:59 06:59 18:59 Intake Total 100 / 100 Output Total Balance 100 / 100 Weight Intake: IV 100 / 100 Zerbaxa Inj 1,500 MG In NS Inj 100 / 100 100 ML @ 100 mls/hr IV.SIG Q8H ACE Rx#:[id number] Vancomycin Inj 1,000 MG In NS Inj 250 ML @ 250 mls/hr IV.SIG Q12H ACE Rx#:[id number] Oral Output: Urine Other: Date of Last Bowel Movement <Saji Johnson - 04/20/18 13:41> Vital Signs 04/19/18 16:00 04/19/18 16:05 04/19/18 20:00 Temperature 97.9 F 97.7 F Pulse Rate 65 62 Respiratory Rate 16 17 16 Blood Pressure 128/65 145/65 H Pulse Oximetry 97 99 04/20/18 08:00 04/20/18 12:00 Temperature 98.0 F 97.6 F Pulse Rate 63 68 Respiratory Rate 17 16 Blood Pressure 117/57 L 126/60 Pulse Oximetry 98 95 Intake & Output 04/19/18 04/20/18 04/20/18 19:59 06:59 18:59 Intake Total 100 / 100 Output Total Balance 100 / 100 Weight Intake: IV 100 / 100 Zerbaxa Inj 1,500 MG In NS Inj 100 / 100 100 ML @ 100 mls/hr IV.SIG Q8H ACE Rx#:[id number] Vancomycin Inj 1,000 MG In NS Inj 250 ML @ 250 mls/hr IV.SIG Q12H ACE Rx#:[id number] Oral Output: Urine Other: Date of Last Bowel Movement <Ihsan Ramirez S - 04/20/18 13:33> - Constitutional no acute distress, average body habitus, cooperative <AshleyIhsan S - 13:33> - Routine HEENT Exam Head: Present: normocephalic, atraumatic <Ihsan Ramirez S - 04/20/18 13:33> ENT: Present: mucous membranes moist <Ihsan Ramirez S - 04/20/18 13:33> - Routine Respiratory Exam Present: CTA bilaterally. Absent: accessory muscle use, wheezes, crackles < Ihsan Ramirez S - 04/20/18 13:33> - Routine Cardiovascular Exam Present: RRR, S1, S2. Absent: murmur <Ihsan Ramirez S - 04/20/18 13:33> - Routine Abdominal Exam Present: soft. Absent: tenderness, distended <Ihsan Ramirez S - 04/20/18 13:33 > - Routine Extremities Exam Absent: cyanosis, edema <Ihsan Ramirez S - 04/20/18 13:33> Comments: wounds on BLE covered in clean and dry dressing with boots in place, wound R thigh also covered in dressing and clean/dry. <Ihsan Ramirez 04/20/18 13:33> - Urinary Catheter Management Condom Cath placed during this visit: no <Saji Johnson 04/20/18 13:41> no <Ihsan Ramirez 04/20/18 13:33> Reason for continuing: Not indwelling catheter <Ihsan Ramirez 04/20/18 13: 33> Indwelling Urethral Catheter Cath placed during this visit: no <AlexSaji 04/20/18 13:41> yes, but has since been removed by the nurse <Ihsan Ramirez 04/20/18 13:33> Reason for continuing: Not indwelling catheter <Ihsan Ramirez S 04/20/18 13: 33> Insertion date: 04/11/18 <Ihsan Ramirez 04/20/18 13:33> Insertion time: 21:08 <Ihsan Ramirez 04/20/18 13:33> Removal date: 04/12/18 <Ihsan Ramirez 04/20/18 13:33> Removal time: 11:35 <Ihsan Ramirez S 04/20/18 13:33> Straight Cath placed during this visit: no <Saji Johnson 04/20/18 13:41> yes <Ihsan Ramirez 04/20/18 13:33> Reason for continuing: Other continuation reason <Ihsan Ramirez 04/20/18 13 :33> Insertion date: 04/11/18 <Ihsan Ramirez 04/20/18 13:33> Insertion time: 21:08 <Ihsan Ramirez S 04/20/18 13:33> Assessment and Plan - Assessment (1) Osteomyelitis of ankle Code(s): M86.9 - Osteomyelitis, unspecified Status: Acute (2) Chronic wound of extremity Status: Acute (3) MRSA (methicillin resistant staph aureus) culture positive Code(s): Z22.322 - Carrier or suspected carrier of Methicillin resistant Staphylococcus aureus Status: Acute (4) GI bleed Code(s): K92.2 - Gastrointestinal hemorrhage, unspecified Status: Acute (5) PAD (peripheral artery disease) Code(s): I73.9 - Peripheral vascular disease, unspecified Status: Chronic (6) Bandemia Code(s): D72.825 - Bandemia Status: Acute (7) Hydronephrosis Code(s): N13.30 - Unspecified hydronephrosis Status: Acute (8) HTN (hypertension) Code(s): I10 - Essential (primary) hypertension Status: Acute (9) Diabetes Code(s): E11.9 - Type 2 diabetes mellitus without complications Status: Acute (10) Acute blood loss anemia Code(s): D62 - Acute posthemorrhagic anemia Status: Resolved (11) Malnutrition Code(s): E46 - Unspecified protein-calorie malnutrition Status: Acute (12) Anisocoria Code(s): H57.02 - Anisocoria Status: Acute (13) Nutrition, metabolism, and development symptoms Code(s): R63.8 - Other symptoms and signs concerning food and fluid intake Status: Acute <Saji Johnson - 04/20/18 13:41> (1) Osteomyelitis of ankle Code(s): M86.9 - Osteomyelitis, unspecified Status: Acute Plan: MRI showed evidence of osteomyelitis of right ankle which likely has been brewing for some time in this diabetic patient with PAD with chronic lower- extremity non-healing ulcers Culture positive for MRSA at different site (right thigh wound) Wound Cx of right ankle showed Pseudomonas as well as multidrug-resistant Proteus and group D enterococcus Blood cultures NGTD Afebrile * Podiatry following, appreciate assistance; will f/u recommendations for likely surgical intervention * Vascular surgery consulted * Angiogram of the right lower extremity on Saturday * ID consulted, appreciate recs * Continue vancomycin * Continue Zerbaxa * Wound care consulted, appreciate recs * See plan below * Pain management with [place] scheduled, gabapentin, morphine for breakthrough pain (2) Chronic wound of extremity Status: Acute Plan: Patient currently follows up with wound care as an outpatient Right hip wound, super observant dressing daily Skin tear lower left extremity, Santyl covered and dry dressing daily Right heel wound, apply gentamicin cream twice daily, see above plan for associated osteomyelitis Wound care consulted, appreciate recommendations * Cleanse wound to R Achilles heel with normal saline only and pat dry. Apply gentamicin mixed with Santyl 50/ 50 and apply to wound bed * Cover with ABD pad, and secure with rolled gauze and tape. Change dressing daily, until seen by podiatry. * Cleanse wound to R hip with normal saline and pat dry. Apply Optilock dressing secured with paper tape Change PRN for saturation or dislodgement * Cleanse wound to L posterior lower leg with normal saline and pat dry. Apply optifoam gentle 4x4 dressing change dressing every 3 days or PRN if saturated or dislodged. (3) MRSA (methicillin resistant staph aureus) culture positive Code(s): Z22.322 - Carrier or suspected carrier of Methicillin resistant Staphylococcus aureus Status: Acute Plan: This patient suffers from chronic nonhealing wounds likely secondary to peripheral arterial disease and DM. Patient had wound from right thigh cultured which ultimately grew MRSA. -Monitor for fevers and signs of systemic illness -Antibiotic therapy as above (4) GI bleed Code(s): K92.2 - Gastrointestinal hemorrhage, unspecified Status: Acute Plan: Initially presented with anemia and dark stools EGD demonstrates mild gastritis in the gastric fundus, gastric body, and gastric antrum. Deformity was found the duodenal bulb. Normal duodenal mucosa in the second part of the duodenum and third part duodenum. Retroflex views revealed no abnormalities. Colonoscopy negative terminal ileum.: Significant amount of stool throughout the colon interfere with vision with small lesion, diverticular disease, no sign of active bleeding at this point. Rectum small ulcer in the rectum biopsy was done not actively bleeding GI signed off, appreciated recommendations -Diabetic [id number] -Advised patient to follow-up with GI post discharge for biopsy results -Monitor labs -Monitor for bleeding and transfuse if required -Continue PPI -Bowel regimen -Supportive care -Further recommendations to follow -At this time, declining any further colonoscopies (5) PAD (peripheral artery disease) Code(s): I73.9 - Peripheral vascular disease, unspecified Status: Chronic Plan: s/p recent right LE arterectomy. Patient scheduled to undergo the right lower extremity angio on Saturday. (6) Bandemia Code(s): D72.825 - Bandemia Status: Acute Plan: Resolved, likely due to osteomyelitis. See above plan. (7) Hydronephrosis Code(s): N13.30 - Unspecified hydronephrosis Status: Acute Plan: Abdominal pelvis CT demonstrates development of moderate left hydronephrosis and hydroureter without ureteral obstruction. Also demonstrates stool ball in the rectum large amount of stool throughout the colon. Patient had a bladder scan 04/11 that revealed of a residual volume of 231 mL. Patient currently voiding well and is graded 200 mL of fluid today. Patient has no CVA tenderness. - Continue to monitor I's and O's. (8) HTN (hypertension) Code(s): I10 - Essential (primary) hypertension Status: Acute Plan: Continue Cardizem and amiodarone (9) Diabetes Code(s): E11.9 - Type 2 diabetes mellitus without complications Status: Acute Plan: Held home glipizide, Januvia Accu-Cheks Low-dose sliding scale Hypoglycemia protocol in place (10) Acute blood loss anemia Code(s): D62 - Acute posthemorrhagic anemia Status: Resolved Plan: In view of negative EGD/colonoscopy his present anemia is likely chronic. H/H low but stable. -Monitor H/H -Consider iron replacement (11) Malnutrition Code(s): E46 - Unspecified protein-calorie malnutrition Status: Acute Plan: This patient appears thin and possibly malnourished. Patient has significant muscle atrophy in arms and legs that are partially consistent with age and lack of activity. -Begin diet mentation with Ensure (12) Anisocoria Code(s): H57.02 - Anisocoria Status: Acute Plan: Most likely chronic in view of no other alarming ophthalmologic signs/symptoms Can follow up with Ophthalmology outpatient (13) Nutrition, metabolism, and development symptoms Code(s): R63.8 - Other symptoms and signs concerning food and fluid intake Status: Acute Plan: Fluids: P.o. hydration Diet: Diabetic supplements with protein shake Vitals every 4, monitor I's and O's DVT prophylaxis: Contraindicated due to upper GI bleed <Ihsan Ramirez S - 04/20/18 13:16> - Assessment and Plan Discharge Planning: Return to SNF pending treatment of osteomyelitis <Ihsan Ramirez S - 04/20/18 13:33> - Attending Attestation The exam, history, and the medical decision-making described in the above note were completed with the assistance of the resident physician. I reviewed and agree with the findings presented. I attest that I had a [id number] encounter with the patient on the same day alongside the resident. <Saji Johnson - 04/20/18 13:41> <Ihsan Ramirez S - Last Filed: 04/20/18 13:16> (1) Osteomyelitis of ankle Qualifiers: Osteomyelitis type: unspecified type Laterality: right Qualified Code(s): M86.9 - Osteomyelitis, unspecified (4) GI bleed Qualifiers: GI bleed type/associated pathology: unspecified gastrointestinal hemorrhage type Qualified Code(s): K92.2 - Gastrointestinal hemorrhage, unspecified (7) Hydronephrosis Qualifiers: Hydronephrosis type: unspecified Qualified Code(s): N13.30 - Unspecified hydronephrosis <Saji Johnson - Last Filed: 04/20/18 13:41> (1) Osteomyelitis of ankle Qualifiers: Osteomyelitis type: unspecified type Laterality: right Qualified Code(s): M86.9 - Osteomyelitis, unspecified (4) GI bleed Qualifiers: GI bleed type/associated pathology: unspecified gastrointestinal hemorrhage type Qualified Code(s): K92.2 - Gastrointestinal hemorrhage, unspecified (7) Hydronephrosis Qualifiers: Hydronephrosis type: unspecified Qualified Code(s): N13.30 - Unspecified hydronephrosis <Ihsan Ramirez S - Last Filed: 04/20/18 13:16> (1) Osteomyelitis of ankle Qualifiers: Osteomyelitis type: unspecified type Laterality: right Qualified Code(s): M86.9 - Osteomyelitis, unspecified (4) GI bleed Qualifiers: GI bleed type/associated pathology: unspecified gastrointestinal hemorrhage type Qualified Code(s): K92.2 - Gastrointestinal hemorrhage, unspecified (7) Hydronephrosis Qualifiers: Hydronephrosis type: unspecified Qualified Code(s): N13.30 - Unspecified hydronephrosis <Saji Johnson - Last Filed: 04/20/18 13:41> (1) Osteomyelitis of ankle Qualifiers: Osteomyelitis type: unspecified type Laterality: right Qualified Code(s): M86.9 - Osteomyelitis, unspecified (4) GI bleed Qualifiers: GI bleed type/associated pathology: unspecified gastrointestinal hemorrhage type Qualified Code(s): K92.2 - Gastrointestinal hemorrhage, unspecified (7) Hydronephrosis Qualifiers: Hydronephrosis type: unspecified Qualified Code(s): N13.30 - Unspecified hydronephrosis
--- NOTE | 2018-04-20 14:55 | P.PNADD ---
Addendum to Inpatient Note Reason for Addendum: Additional Documentation (Off service note) Additional information: The patient's admission hospital course is as follows: 87-year-old male with history of hypertension, diabetes, chronic nonhealing wounds, PAD with recent right LE arterectomy admitted on 04/11 for severe anemia. Patient found to have a hemoglobin of 6.6 and was transfused successfully with 2 units of packed red blood cells. On admission patient also had black tarry stools and underwent endoscopy and colonoscopy the following day. Endoscopy and colonoscopy were both benign with the exception of a small ulcer in the rectum that was not actively bleeding. Patient was placed on PPIs , iron, and supportive care. Patient also has chronic nonhealing wounds on right thigh as well as on the posterior side of right and left calcaneus. Wound cultures of thigh grew MRSA and patient was placed on vancomycin. Wound cultures of right calcaneus grew Proteus, Pseudomonas, and group D enterococcus and patient was placed on Zerbaxa due to sensitivities. Patient currently scheduled to undergo angiogram of the right lower extremity with possible revascularization on Saturday. Depending on success of revasc Podiatry will consider partial calcanectomy versus debridement and irrigation. Patient currently hemodynamically stable and on vancomycin and Zerbax.
--- NOTE | 2018-04-20 19:28 | P.PNPOD ---
Subjective Interval history: Patient seen bedside. Resting comfortably. Speaks [place]. States he continues to have pain to bilateral LE. Reports he is undergoing vascular intervention on Saturday. Physical Exam Vital signs: Vital Signs 04/20/18 08:00 04/20/18 12:00 04/20/18 16:00 Temperature 98.0 F 97.6 F 98.3 F Pulse Rate 63 68 62 Respiratory Rate 17 16 16 Blood Pressure 117/57 L 126/60 127/59 L Pulse Oximetry 98 95 96 Intake & Output 04/20/18 04/20/18 04/21/18 06:59 18:59 06:59 Intake Total 600 / 600 Output Total 850 / 850 Balance -250 / -250 Weight Intake: IV 100 / 100 Zerbaxa Inj 1,500 MG In NS Inj 100 / 100 100 ML @ 100 mls/hr IV.SIG Q8H [facility] Rx#:[id number] Vancomycin Inj 1,000 MG In NS Inj 250 ML @ 250 mls/hr IV.SIG Q12H [facility] Rx#:[id number] Oral 500 / 500 Output: Urine 850 / 850 Other: # Bowel Movements 0 Narrative: Posterior ankle/Achilles wound with exposed calcaneus and frayed necrotic Achilles ends. Stable eschar noted with improvement in maceration. No purulent drainage noted. Non palpable pulses, ASSESSMENT NURSE to digits x5 intact to bilateral LE Thin, atrophic, shiny skin Left posterior leg ulceration with granular base, no acute signs of infection. Medications and Allergies Active Medications: Active Medications Hydrocodone Bitart/Acetaminophen (Fajardo 10/325) 1 tab PO Q4H [facility] Last Admin: 04/20/18 17:31 Dose: 1 tab Amiodarone HCl (Cordarone) 200 mg PO DAILY [facility] Last Admin: 04/20/18 08:32 Dose: 200 mg Ascorbic Acid (Vitamin C) 500 mg PO BID [facility] Last Admin: 04/20/18 08:32 Dose: 500 mg Collagenase (Santyl Oint) 1 applicatio TOPICAL DAILY [facility] Last Admin: 04/20/18 12:04 Dose: 1 applicatio Dextrose (D50w Vial) 50 ml IV.PUSH UNSCH PRN PRN Reason: PER HYPOGLYCEMIA PROTOCOL Last Admin: 04/12/18 06:49 Dose: 50 ml Diltiazem HCl (Cardizem) 30 mg PO TID [facility] Last Admin: 04/20/18 17:31 Dose: 30 mg Ferrous Sulfate (Ferosul) 325 mg PO TID [facility] Last Admin: 04/20/18 17:31 Dose: 325 mg Gabapentin (Neurontin) 600 mg PO TID [facility] Last Admin: 04/20/18 17:31 Dose: 600 mg Gentamicin Sulfate (Gentamicin 0.1% Cream) 1 applicatio TOPICAL BID [facility] Last Admin: 04/20/18 12:04 Dose: 1 applicatio Glucagon (Glucagon Inj) 1 mg OTHER PRN PRN PRN Reason: for Hypoglycemia Protocol Sodium Chloride (Ns Inj) 500 mls @ 30 mls/hr IV.SIG .Q10H [facility] Last Admin: 04/12/18 02:14 Dose: Not Given Vancomycin HCl 1,000 mg/ (Sodium Chloride) 250 mls @ 250 mls/hr IV.SIG Q12H [facility] Last Admin: 04/20/18 12:05 Dose: 150 mls/hr Ceftolozane/Tazobactam 1,500 (mg/ Sodium Chloride) 100 mls @ 100 mls/hr IV.SIG Q8H [facility] Last Admin: 04/20/18 13:31 Dose: 100 mls/hr Insulin Aspart (Novolog Insulin Correctional Sugar Inj) 0 unit SQ ACHS [facility]; Protocol Last Admin: 04/20/18 17:30 Dose: 1 unit Levothyroxine Sodium (Synthroid) 125 mcg PO DAILY@0600 [facility] Last Admin: 04/20/18 05:13 Dose: 125 mcg Magnesium Oxide (Mag-Ox) 400 mg PO QID [facility] Last Admin: 04/20/18 17:31 Dose: 400 mg Morphine Sulfate (Morphine Inj) 2 mg IV.PUSH Q3H PRN PRN Reason: BREAKTHROUGH PAIN Last Admin: 04/20/18 12:06 Dose: 2 mg Naloxone HCl (Narcan Inj) 0.4 mg IV.PUSH UNSCH PRN PRN Reason: SEE LABEL COMMENTS Pantoprazole Sodium (Protonix) 40 mg PO BID [facility] Last Admin: 04/20/18 08:32 Dose: 40 mg Pharmacy Profile Note (Vancomycin Consult Pharmacy) 1 each OTHER UNSCH PRN PRN Reason: Pharmacy to dose Polyethylene Glycol (Miralax) 17 gm PO DAILY [facility] Last Admin: 04/20/18 08:31 Dose: 17 gm Potassium Phos/Sodium Phos (K-Phos Neutral) 250 mg PO QID [facility] Last Admin: 04/20/18 17:31 Dose: 250 mg Pravastatin Sodium (Pravachol) 40 mg PO DAILY [facility] Last Admin: 04/20/18 08:32 Dose: 40 mg Sodium Chloride (Ns Flush) 2 ml IV.FLUSH BID [facility] Last Admin: 04/20/18 12:28 Dose: 2 ml Sodium Chloride (Ns Flush) 2 ml IV.FLUSH PRN PRN PRN Reason: FLUSH AFTER USING IV ACCESS Last Admin: 04/20/18 12:04 Dose: 2 ml Sodium Chloride (Sodium Chloride) 1 gm PO TID [facility] Last Admin: 04/20/18 17:31 Dose: 1 gm Allergies Allergy/AdvReac Type Severity Reaction Status Date / Time No Known Allergies Allergy Verified 04/08/18 12:35 Home Medications Medication Instructions Recorded Confirmed Type Lactobacillus acidoph-L.bulgar 1 tab PO DAILY 04/08/18 04/11/18 History [Floranex] amiodarone 200 mg PO DAILY 04/08/18 04/11/18 History diltiazem HCl 30 mg PO TID 04/08/18 04/11/18 History ferrous sulfate 325 mg PO TID 04/08/18 04/11/18 History gabapentin 300 mg PO TID 04/08/18 04/11/18 History glipizide 10 mg PO BID 04/08/18 04/11/18 History hydrocodone-acetaminophen 1 tab PO Q6H 04/08/18 04/11/18 History levothyroxine 125 mcg PO DAILY 04/08/18 04/11/18 History magnesium oxide 400 mg PO QID 04/08/18 04/11/18 History meloxicam 7.5 mg PO DAILY 04/08/18 04/11/18 History pravastatin 40 mg PO DAILY 04/08/18 04/11/18 History ranitidine HCl 300 mg PO DAILY 04/08/18 04/11/18 History sitagliptin [Januvia] 100 mg PO DAILY 04/08/18 04/11/18 History sod phos di, mono-K phos mono 1 tab PO QID 04/08/18 04/11/18 History [Phospha 250 Neutral] sodium chloride 1,000 mg PO TID 04/08/18 04/11/18 History ascorbic acid (vitamin C) [Vitamin 500 mg PO BID 04/11/18 04/11/18 History C] insulin aspart U-100 [Novolog 1 - 10 units SUBCUT DIRECTED 04/11/18 04/11/18 History U-100 Insulin aspart] Results - Labs CBC & Chem 7: 04/20/18 07:47 04/20/18 07:47 Laboratory Results - last 24 hr 04/20/18 04/20/18 04/20/18 07:31 07:47 07:47 WBC 11.7 H RBC 2.92 L Hgb 9.4 L Hct 28.3 L MCV 97.0 MCH 32.0 MCHC 33.0 RDW 16.1 Plt Count 481 H MPV 6.5 L Neut % (Auto) 70.8 H Lymph % (Auto) 12.9 [place] % (Auto) 8.9 H Eos % (Auto) 4.5 H Baso % (Auto) 2.9 H Neut # (Auto) 8.2 H Lymph # (Auto) 1.5 [place] # (Auto) 1.0 H Eos # (Auto) 0.5 H Baso # (Auto) 0.3 H WBC Differential . Differential Comment Auto diff final Creatinine 0.57 L Estimated GFR Greater than 89 POC Glucose 151 H 04/20/18 04/20/18 11:51 17:01 WBC RBC Hgb Hct MCV MCH MCHC RDW Plt Count MPV Neut % (Auto) Lymph % (Auto) [place] % (Auto) Eos % (Auto) Baso % (Auto) Neut # (Auto) Lymph # (Auto) [place] # (Auto) Eos # (Auto) Baso # (Auto) WBC Differential Differential Comment Creatinine Estimated GFR POC Glucose 128 H 171 H Assessment and Plan - Plan 87 year old with posterior Achilles/ankle wound and OM noted on MRI to posterior 1/[address] Urena to take over patient care 04/21 Improvement noted to bilateral LE ulcerations Improvement noted in appearance to right posterior ankle/Achilles ulceration as it has become a dry stable eschar with Betadine applications Discussed with Dr. Oliva, vascular surgery to attempt revasc on Saturday Possible/Likely surgical intervention from podiatry once vascular intervention is complete Depending on success of revasc will consider partial calcanectomy versus debridement and irrigation Aggressive bedside irrigation with Betadine placement Will follow patient closely
[2018-04-21] MEDS: Vancomycin Inj 1,000 MG in Sodium Chlor 0.9% Inj 250 ML IV.SIG SCH ×2 (02:12→12:33)
[2018-04-21 04:56] LABS: Albumin 2.3 g/dL (3.4-5.0); Anion Gap 7 meq/L (5-15); Blood Urea Nitrogen 15 mg/dL (7-18); Carbon Dioxide 26.9 meq/L (21.0-32.0); Chloride 100 meq/L (98-107); Glomerular Filtration Rate Greater Than 89 mL/min (>89); Glucose,Random 111 mg/dL (74-106); Potassium 4.1 meq/L (3.5-5.1); Sodium 134 meq/L (136-145)
[2018-04-21 05:01] LABS: Baso # (Auto) 0.1 th/mm3 (0.0-0.2); Baso % (Auto) 1.1 % (0.0-2.0); Eos # (Auto) 0.6 th/mm3 (0.0-0.4); Eos % (Auto) 5.2 % (0.0-4.0); Hematocrit 27.8 % (39.0-51.0); Hemoglobin 8.9 gm/dL (13.0-17.0); Lymph # (Auto) 1.7 th/mm3 (1.0-4.8); Lymph % (Auto) 14.4 % (9.0-44.0); Mean Corpuscular HGB Conc 32.1 % (32.0-36.0); Mean Corpuscular Hemoglobin 30.5 pg (27.0-34.0); Mean Corpuscular Volume 95.1 fL (80.0-100.0); Mean Platelet Volume 6.3 fL (7.0-11.0); Mono # (Auto) 1.1 th/mm3 (0.0-0.9); Mono % (Auto) 9.2 % (0.0-8.0); Neut # (Auto) 8.3 th/mm3 (1.8-7.7); Neut % (Auto) 70.1 % (16.0-70.0); Platelet Count 497 th/mm3 (150-450); Red Blood Count 2.93 mil/mm3 (4.50-5.90); Red Cell Distribution Width 15.8 % (11.6-17.2); White Blood Count 11.8 th/mm3 (4.0-11.0)
[2018-04-21] MEDS: TAZOBACTAM IV.SIG SCH ×3 (05:16→21:47)
[2018-04-21] MEDS: SODIUM CHLOR 0.9% IV.SIG SCH ×3 (05:16→21:47)
[2018-04-21] MEDS: CEFTOLOZANE IV.SIG SCH ×3 (05:16→21:47)
[2018-04-21] MEDS: Levothyroxine 125 MCG Tablet PO SCH (05:17)
[2018-04-21] MEDS: Insulin NovoLOG Aspart Correctional Sugar Inj SQ SCH ×4 (08:06→21:45)
[2018-04-21] MEDS: Ascorbic Acid 500 MG Tablet PO SCH ×2 (08:35→21:44)
[2018-04-21] MEDS: Potassium Phos/Sodium Phos 250 MG Tablet PO SCH ×4 (08:35→21:44)
[2018-04-21] MEDS: Ferrous Sulfate 325 MG Tablet PO SCH ×3 (08:36→17:18)
[2018-04-21] MEDS: Magnesium Oxide 400 MG Tablet PO SCH ×4 (08:36→21:45)
[2018-04-21] MEDS: Polyethylene Glycol 3350 17 GM Packet PO SCH (08:36)
[2018-04-21] MEDS: Amiodarone 200 MG Tablet PO SCH (08:36)
[2018-04-21] MEDS: dilTIAZem 30 MG Tablet PO SCH ×3 (08:36→17:18)
[2018-04-21] MEDS: Sodium Chloride 1 GM Tablet PO SCH ×3 (08:36→17:18)
[2018-04-21] MEDS: Gabapentin 300 MG Capsule PO SCH ×3 (08:36→17:18)
[2018-04-21] MEDS: Collagenase Oint 30 GM Tube TOPICAL SCH (08:42)
[2018-04-21] MEDS: Gentamicin 0.1% Cream 15 GM Cream TOPICAL SCH ×2 (08:42→21:47)
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
--- NOTE | 2018-04-21 12:11 | P.PNFP ---
Subjective Interval history: Patient having some pain of right heel and thigh this morning. Said the pain is not keeping him up at night, but 10/10 pain. Nurse went to give him scheduled medication for the morning. Otherwise patient has no complaints. Denies any SOB or CP. <Tamiko Cooper C - 04/21/18 12:11> Results - Labs Result diagrams: 04/21/18 04:02 04/21/18 04:02 <Saji Johnson - 04/21/18 16:59> Abnormal lab results 04/20/18 04/20/18 04/21/18 Range/Units 17:01 19:53 04:02 WBC 11.8 H (4.0-11.0) th/mm3 RBC 2.93 L (4.50-5.90) mil/mm3 Hgb 8.9 L (13.0-17.0) gm/dL Hct 27.8 L (39.0-51.0) % Plt Count 497 H (150-450) th/mm3 MPV 6.3 L (7.0-11.0) fL Neut % (Auto) 70.1 H (16.0-70.0) % [place] % (Auto) 9.2 H (0.0-8.0) % Eos % (Auto) 5.2 H (0.0-4.0) % Neut # (Auto) 8.3 H (1.8-7.7) th/mm3 [place] # (Auto) 1.1 H (0.0-0.9) th/mm3 Eos # (Auto) 0.6 H (0.0-0.4) th/mm3 Sodium (136-145) meq/L Creatinine (0.60-1.30) mg/dL POC Glucose 171 H 242 H (68-110) mg/dl Random Glucose (74-106) mg/dL Calcium (8.5-10.1) mg/dL Albumin (3.4-5.0) g/dL 04/21/18 04/21/18 04/21/18 Range/Units 04:02 08:02 11:59 WBC (4.0-11.0) th/mm3 RBC (4.50-5.90) mil/mm3 Hgb (13.0-17.0) gm/dL Hct (39.0-51.0) % Plt Count (150-450) th/mm3 MPV (7.0-11.0) fL Neut % (Auto) (16.0-70.0) % [place] % (Auto) (0.0-8.0) % Eos % (Auto) (0.0-4.0) % Neut # (Auto) (1.8-7.7) th/mm3 [place] # (Auto) (0.0-0.9) th/mm3 Eos # (Auto) (0.0-0.4) th/mm3 Sodium 134 L (136-145) meq/L Creatinine 0.49 L (0.60-1.30) mg/dL POC Glucose 136 H 154 H (68-110) mg/dl Random Glucose 111 H (74-106) mg/dL Calcium 8.0 L (8.5-10.1) mg/dL Albumin 2.3 L (3.4-5.0) g/dL Short CBC 04/21/18 Range/Units 04:02 WBC 11.8 H (4.0-11.0) th/mm3 Hgb 8.9 L (13.0-17.0) gm/dL Hct 27.8 L (39.0-51.0) % Plt Count 497 H (150-450) th/mm3 BMP 04/21/18 04:02 Sodium 134 L Potassium 4.1 Chloride 100 Carbon Dioxide 26.9 BUN 15 Creatinine 0.49 L Calcium 8.0 L Liver Function 04/21/18 Range/Units 04:02 Albumin 2.3 L (3.4-5.0) g/dL <Young,Saji L - 04/21/18 16:59> Abnormal lab results 04/20/18 04/20/18 04/20/18 Range/Units 07:47 17:01 19:53 WBC 11.7 H (4.0-11.0) th/mm3 RBC 2.92 L (4.50-5.90) mil/mm3 Hgb 9.4 L (13.0-17.0) gm/dL Hct 28.3 L (39.0-51.0) % Plt Count 481 H (150-450) th/mm3 MPV 6.5 L (7.0-11.0) fL Neut % (Auto) 70.8 H (16.0-70.0) % [place] % (Auto) 8.9 H (0.0-8.0) % Eos % (Auto) 4.5 H (0.0-4.0) % Baso % (Auto) 2.9 H (0.0-2.0) % Neut # (Auto) 8.2 H (1.8-7.7) th/mm3 [place] # (Auto) 1.0 H (0.0-0.9) th/mm3 Eos # (Auto) 0.5 H (0.0-0.4) th/mm3 Baso # (Auto) 0.3 H (0.0-0.2) th/mm3 Sodium (136-145) meq/L Creatinine (0.60-1.30) mg/dL POC Glucose 171 H 242 H (68-110) mg/dl Random Glucose (74-106) mg/dL Calcium (8.5-10.1) mg/dL Albumin (3.4-5.0) g/dL 04/21/18 04/21/18 04/21/18 Range/Units 04:02 04:02 08:02 WBC 11.8 H (4.0-11.0) th/mm3 RBC 2.93 L (4.50-5.90) mil/mm3 Hgb 8.9 L (13.0-17.0) gm/dL Hct 27.8 L (39.0-51.0) % Plt Count 497 H (150-450) th/mm3 MPV 6.3 L (7.0-11.0) fL Neut % (Auto) 70.1 H (16.0-70.0) % [place] % (Auto) 9.2 H (0.0-8.0) % Eos % (Auto) 5.2 H (0.0-4.0) % Baso % (Auto) (0.0-2.0) % Neut # (Auto) 8.3 H (1.8-7.7) th/mm3 [place] # (Auto) 1.1 H (0.0-0.9) th/mm3 Eos # (Auto) 0.6 H (0.0-0.4) th/mm3 Baso # (Auto) (0.0-0.2) th/mm3 Sodium 134 L (136-145) meq/L Creatinine 0.49 L (0.60-1.30) mg/dL POC Glucose 136 H (68-110) mg/dl Random Glucose 111 H (74-106) mg/dL Calcium 8.0 L (8.5-10.1) mg/dL Albumin 2.3 L (3.4-5.0) g/dL 04/21/18 Range/Units 11:59 WBC (4.0-11.0) th/mm3 RBC (4.50-5.90) mil/mm3 Hgb (13.0-17.0) gm/dL Hct (39.0-51.0) % Plt Count (150-450) th/mm3 MPV (7.0-11.0) fL Neut % (Auto) (16.0-70.0) % [place] % (Auto) (0.0-8.0) % Eos % (Auto) (0.0-4.0) % Baso % (Auto) (0.0-2.0) % Neut # (Auto) (1.8-7.7) th/mm3 [place] # (Auto) (0.0-0.9) th/mm3 Eos # (Auto) (0.0-0.4) th/mm3 Baso # (Auto) (0.0-0.2) th/mm3 Sodium (136-145) meq/L Creatinine (0.60-1.30) mg/dL POC Glucose 154 H (68-110) mg/dl Random Glucose (74-106) mg/dL Calcium (8.5-10.1) mg/dL Albumin (3.4-5.0) g/dL Short CBC 04/20/18 04/21/18 Range/Units 07:47 04:02 WBC 11.7 H 11.8 H (4.0-11.0) th/mm3 Hgb 9.4 L 8.9 L (13.0-17.0) gm/dL Hct 28.3 L 27.8 L (39.0-51.0) % Plt Count 481 H 497 H (150-450) th/mm3 BMP 04/21/18 04:02 Sodium 134 L Potassium 4.1 Chloride 100 Carbon Dioxide 26.9 BUN 15 Creatinine 0.49 L Calcium 8.0 L Liver Function 04/21/18 Range/Units 04:02 Albumin 2.3 L (3.4-5.0) g/dL <Tamiko Cooper C - 04/21/18 12:11> Physical Exam Vital signs: Vital Signs 04/20/18 20:00 04/21/18 00:00 04/21/18 04:00 Temperature 97.8 F 97.4 F L 98.8 F Pulse Rate 66 62 61 Respiratory Rate 18 17 17 Blood Pressure 105/67 123/57 L Pulse Oximetry 95 96 04/21/18 08:00 04/21/18 10:17 04/21/18 10:39 Temperature 98.6 F Pulse Rate 58 L Respiratory Rate 17 18 17 Blood Pressure 115/59 L Pulse Oximetry 96 04/21/18 12:00 04/21/18 14:52 04/21/18 16:00 Temperature 97.6 F 98.0 F Pulse Rate 63 65 Respiratory Rate 18 18 17 Blood Pressure 134/63 138/62 Pulse Oximetry 96 96 Intake & Output 04/20/18 04/21/18 04/21/18 18:59 06:59 18:59 Intake Total 950 / 950 930 / 930 250 / 250 Output Total 850 / 850 1400 / 1400 Balance 100 / 100 -470 / -470 250 / 250 Weight 57.7 kg Intake: IV 450 / 450 450 / 450 250 / 250 Zerbaxa Inj 1,500 MG In NS Inj 200 / 200 200 / 200 100 ML @ 100 mls/hr IV.SIG Q8H [facility] Rx#:[id number] Vancomycin Inj 1,000 MG In NS 250 / 250 250 / 250 250 / 250 Inj 250 ML @ 250 mls/hr IV.SIG Q12H ACE Rx#:[id number] Oral 500 / 500 480 / 480 Output: Urine 850 / 850 1400 / 1400 Other: # Bowel Movements 0 <Saji Johnson L - 04/21/18 16:59> Vital Signs 04/20/18 16:00 04/20/18 20:00 04/21/18 00:00 Temperature 98.3 F 97.8 F 97.4 F L Pulse Rate 62 66 62 Respiratory Rate 16 18 17 Blood Pressure 127/59 L 105/67 Pulse Oximetry 96 95 04/21/18 04:00 04/21/18 08:00 04/21/18 10:17 Temperature 98.8 F 98.6 F Pulse Rate 61 58 L Respiratory Rate 17 17 18 Blood Pressure 123/57 L 115/59 L Pulse Oximetry 96 96 04/21/18 10:39 Temperature Pulse Rate Respiratory Rate 17 Blood Pressure Pulse Oximetry Intake & Output 04/20/18 04/21/18 04/21/18 18:59 06:59 18:59 Intake Total 950 / 950 930 / 930 Output Total 850 / 850 1400 / 1400 Balance 100 / 100 -470 / -470 Weight 57.7 kg Intake: IV 450 / 450 450 / 450 Zerbaxa Inj 1,500 MG In NS Inj 200 / 200 200 / 200 100 ML @ 100 mls/hr IV.SIG Q8H [facility] Rx#:[id number] Vancomycin Inj 1,000 MG In NS 250 / 250 250 / 250 Inj 250 ML @ 250 mls/hr IV.SIG Q12H [facility] Rx#:[id number] Oral 500 / 500 480 / 480 Output: Urine 850 / 850 1400 / 1400 Other: # Bowel Movements 0 <Tamiko Cooper - 04/21/18 12:11> Narrative: Physical examination GENERAL: Pleasant elderly male thin, appears malnourished. SKIN: Cool and dry. No generalized rash. Has some scattered ecchymoses in his UE. HEAD: Atraumatic. Normocephalic. No temporal wasting, or tenderness. EYES: Anisocoria and left eye, EOMI CARDIOVASCULAR: Regular rate and rhythm. No murmurs, rubs or gallops heard RESPIRATORY: Clear to auscultation. Breath sounds equal bilaterally. No rales , wheezing or rhonchi ABDOMEN: Soft, non-tender, nondistended. Bowel sounds present and normoactive. No guarding. No rebound. No organomegaly. EXTREMITIES: No clubbing, cyanosis, or edema. Atrophic muscular changes in both legs bilaterally. Right heel covered in bandage and in a boot. Left foot bandage dry and clean. Patient also has wound on right thigh that was bandaged with no signs of spreading erythema or infection. <aTmiko Cooper - 04/21/18 12:11> - Urinary Catheter Management Condom Cath placed during this visit: no <Saji Johnson - 04/21/18 16:59> no <Tamiko Cooper - 04/21/18 12:11> Reason for continuing: Not indwelling catheter <Tamiko Cooper 04/21/18 12: 11> Indwelling Urethral Catheter Cath placed during this visit: no <Saji Johnson Erin 04/21/18 16:59> yes, but has since been removed by the nurse <Tamiko Cooper Erin 04/21/18 12:11> Reason for continuing: Not indwelling catheter <Tamiko Cooper 04/21/18 12: 11> Insertion date: 04/11/18 <Tamiko Cooper Erin 04/21/18 12:11> Insertion time: 21:08 <Tamiko Cooper Erin 04/21/18 12:11> Removal date: 04/12/18 <KennethTamiko Dung Erin 04/21/18 12:11> Removal time: 11:35 <KennethTamiko Dung Erin 04/21/18 12:11> Straight Cath placed during this visit: no <Saji Johnson Erin 04/21/18 16:59> yes <Nakul Cooperle Dung Erin 04/21/18 12:11> Reason for continuing: Other continuation reason <Tamiko Cooper 04/21/18 12:11> Insertion date: 04/11/18 <Tamiko Cooper 04/21/18 12:11> Insertion time: 21:08 <KennethTamiko Khan 04/21/18 12:11> Assessment and Plan - Assessment (1) Osteomyelitis of ankle Code(s): M86.9 - Osteomyelitis, unspecified Status: Acute (2) Chronic wound of extremity Status: Acute (3) MRSA (methicillin resistant staph aureus) culture positive Code(s): Z22.322 - Carrier or suspected carrier of Methicillin resistant Staphylococcus aureus Status: Acute (4) GI bleed Code(s): K92.2 - Gastrointestinal hemorrhage, unspecified Status: Acute (5) PAD (peripheral artery disease) Code(s): I73.9 - Peripheral vascular disease, unspecified Status: Chronic (6) Bandemia Code(s): D72.825 - Bandemia Status: Acute (7) Hydronephrosis Code(s): N13.30 - Unspecified hydronephrosis Status: Acute (8) HTN (hypertension) Code(s): I10 - Essential (primary) hypertension Status: Acute (9) Diabetes Code(s): E11.9 - Type 2 diabetes mellitus without complications Status: Acute (10) Acute blood loss anemia Code(s): D62 - Acute posthemorrhagic anemia Status: Resolved (11) Malnutrition Code(s): E46 - Unspecified protein-calorie malnutrition Status: Acute (12) Anisocoria Code(s): H57.02 - Anisocoria Status: Acute (13) Nutrition, metabolism, and development symptoms Code(s): R63.8 - Other symptoms and signs concerning food and fluid intake Status: Acute <Saji Johnson - 04/21/18 16:59> (1) Osteomyelitis of ankle Code(s): M86.9 - Osteomyelitis, unspecified Status: Acute Plan: MRI showed evidence of osteomyelitis of right ankle which likely has been brewing for some time in this diabetic patient with PAD with chronic lower- extremity non-healing ulcers Culture positive for MRSA at different site (right thigh wound) Wound Cx of right ankle showed Pseudomonas as well as multidrug-resistant Proteus and group D enterococcus Blood cultures NGTD Afebrile * Podiatry following, appreciate assistance; plan to consider calcanectomy vs debridement and irrigation depending on revascularization procedure. * Vascular surgery consulted * Angiogram of the right lower extremity on Saturday * ID consulted, appreciate recs * Continue vancomycin * Continue Zerbaxa * Wound care consulted, appreciate recs * See plan below * Pain management with [place] scheduled, gabapentin, morphine for breakthrough pain (2) Chronic wound of extremity Status: Acute Plan: Patient currently follows up with wound care as an outpatient Right hip wound, super observant dressing daily Skin tear lower left extremity, Santyl covered and dry dressing daily Right heel wound, apply gentamicin cream twice daily, see above plan for associated osteomyelitis Wound care consulted, appreciate recommendations * Cleanse wound to R Achilles heel with normal saline only and pat dry. Apply gentamicin mixed with Santyl 50/ 50 and apply to wound bed * Cover with ABD pad, and secure with rolled gauze and tape. Change dressing daily, until seen by podiatry. * Cleanse wound to R hip with normal saline and pat dry. Apply Optilock dressing secured with paper tape Change PRN for saturation or dislodgement * Cleanse wound to L posterior lower leg with normal saline and pat dry. Apply optifoam gentle 4x4 dressing change dressing every 3 days or PRN if saturated or dislodged. (3) MRSA (methicillin resistant staph aureus) culture positive Code(s): Z22.322 - Carrier or suspected carrier of Methicillin resistant Staphylococcus aureus Status: Acute Plan: This patient suffers from chronic nonhealing wounds likely secondary to peripheral arterial disease and DM. Patient had wound from right thigh cultured which ultimately grew MRSA. -Monitor for fevers and signs of systemic illness -Antibiotic therapy as above (4) GI bleed Code(s): K92.2 - Gastrointestinal hemorrhage, unspecified Status: Acute Plan: Initially presented with anemia and dark stools EGD demonstrates mild gastritis in the gastric fundus, gastric body, and gastric antrum. Deformity was found the duodenal bulb. Normal duodenal mucosa in the second part of the duodenum and third part duodenum. Retroflex views revealed no abnormalities. Colonoscopy negative terminal ileum.: Significant amount of stool throughout the colon interfere with vision with small lesion, diverticular disease, no sign of active bleeding at this point. Rectum small ulcer in the rectum biopsy was done not actively bleeding GI signed off, appreciated recommendations -Diabetic [id number] -Advised patient to follow-up with GI post discharge for biopsy results -Monitor labs -Monitor for bleeding and transfuse if required -Continue PPI -Bowel regimen -Supportive care -Further recommendations to follow -At this time, declining any further colonoscopies (5) PAD (peripheral artery disease) Code(s): I73.9 - Peripheral vascular disease, unspecified Status: Chronic Plan: s/p recent right LE arterectomy. Patient scheduled to undergo the right lower extremity angio on Saturday. (6) Bandemia Code(s): D72.825 - Bandemia Status: Acute Plan: Resolved, likely due to osteomyelitis. See above plan. (7) Hydronephrosis Code(s): N13.30 - Unspecified hydronephrosis Status: Acute Plan: Abdominal pelvis CT demonstrates development of moderate left hydronephrosis and hydroureter without ureteral obstruction. Also demonstrates stool ball in the rectum large amount of stool throughout the colon. Patient had a bladder scan 04/11 that revealed of a residual volume of 231 mL. Patient currently voiding well and is graded 200 mL of fluid today. Patient has no CVA tenderness. - Continue to monitor I's and O's. (8) HTN (hypertension) Code(s): I10 - Essential (primary) hypertension Status: Acute Plan: Continue Cardizem and amiodarone (9) Diabetes Code(s): E11.9 - Type 2 diabetes mellitus without complications Status: Acute Plan: Held home glipizide, Januvia Accu-Cheks Low-dose sliding scale Hypoglycemia protocol in place (10) Acute blood loss anemia Code(s): D62 - Acute posthemorrhagic anemia Status: Resolved Plan: In view of negative EGD/colonoscopy his present anemia is likely chronic. H/H low but stable. -Monitor H/H -Consider iron replacement (11) Malnutrition Code(s): E46 - Unspecified protein-calorie malnutrition Status: Acute Plan: This patient appears thin and possibly malnourished. Patient has significant muscle atrophy in arms and legs that are partially consistent with age and lack of activity. -Begin diet mentation with Ensure (12) Anisocoria Code(s): H57.02 - Anisocoria Status: Acute Plan: Most likely chronic in view of no other alarming ophthalmologic signs/symptoms Can follow up with Ophthalmology outpatient (13) Nutrition, metabolism, and development symptoms Code(s): R63.8 - Other symptoms and signs concerning food and fluid intake Status: Acute Plan: Fluids: P.o. hydration Diet: Diabetic supplements with protein shake Vitals every 4, monitor I's and O's DVT prophylaxis: Contraindicated due to upper GI bleed Discussed with Dr. Johnson <Tamiko Cooper - 04/21/18 12:03> - Attending Attestation The exam, history, and the medical decision-making described in the above note were completed with the assistance of the resident physician. I reviewed and agree with the findings presented. I attest that I had a [id number] encounter with the patient on the same day, and personally performed and documented my assessment and findings in the medical record. Patient with osteomyelitis of the calcaneus. He is to go for angiography tomorrow morning, and podiatry will follow up afterwards for possible procedure. <Saji Johnson - 04/21/18 16:59> <Tamiko Cooper - Last Filed: 04/21/18 12:03> (1) Osteomyelitis of ankle Qualifiers: Osteomyelitis type: unspecified type Laterality: right Qualified Code(s): M86.9 - Osteomyelitis, unspecified (4) GI bleed Qualifiers: GI bleed type/associated pathology: unspecified gastrointestinal hemorrhage type Qualified Code(s): K92.2 - Gastrointestinal hemorrhage, unspecified (7) Hydronephrosis Qualifiers: Hydronephrosis type: unspecified Qualified Code(s): N13.30 - Unspecified hydronephrosis <Saji Johnson - Last Filed: 04/21/18 16:59> (1) Osteomyelitis of ankle Qualifiers: Osteomyelitis type: unspecified type Laterality: right Qualified Code(s): M86.9 - Osteomyelitis, unspecified (4) GI bleed Qualifiers: GI bleed type/associated pathology: unspecified gastrointestinal hemorrhage type Qualified Code(s): K92.2 - Gastrointestinal hemorrhage, unspecified (7) Hydronephrosis Qualifiers: Hydronephrosis type: unspecified Qualified Code(s): N13.30 - Unspecified hydronephrosis <Tamiko Cooper - Last Filed: 04/21/18 12:03> (1) Osteomyelitis of ankle Qualifiers: Osteomyelitis type: unspecified type Laterality: right Qualified Code(s): M86.9 - Osteomyelitis, unspecified (4) GI bleed Qualifiers: GI bleed type/associated pathology: unspecified gastrointestinal hemorrhage type Qualified Code(s): K92.2 - Gastrointestinal hemorrhage, unspecified (7) Hydronephrosis Qualifiers: Hydronephrosis type: unspecified Qualified Code(s): N13.30 - Unspecified hydronephrosis <Saji Johnson - Last Filed: 04/21/18 16:59> (1) Osteomyelitis of ankle Qualifiers: Osteomyelitis type: unspecified type Laterality: right Qualified Code(s): M86.9 - Osteomyelitis, unspecified (4) GI bleed Qualifiers: GI bleed type/associated pathology: unspecified gastrointestinal hemorrhage type Qualified Code(s): K92.2 - Gastrointestinal hemorrhage, unspecified (7) Hydronephrosis Qualifiers: Hydronephrosis type: unspecified Qualified Code(s): N13.30 - Unspecified hydronephrosis
--- NOTE | 2018-04-21 15:27 | P.PNID ---
Subjective Remarks: Patient is an 87-year-old male, admitted to the hospital for evaluation of low hemoglobin. There was apparently episodes of black tarry stools. He had a GI workup on this admission, and he seemed to be stable from the GI standpoint. Patient apparently has had a wound on his right heel Achilles area. He had vascular workup, and underwent aortogram around April 08, and had atherectomy of the right SFA and popliteal area. Patient could not really tell me how long he has had the open wound. He has pain when he walks. There is been no fever and chills. On this admission podiatry was consulted. 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 There is a foul odor coming out from that right foot, and patient really could not notice any difference. Since admission he has not been febrile. He has significant pain whenever his RLE gets moved. There was a culture from a right thigh wound that has MRSA. I do not see any culture from the right foot. His initial WBC was around 14,000 and that is down to normal. Blood cultures are negative. Infectious disease consultation has been requested to evaluate the patient. Notes reviewed Temps ok C/O pain at foot New C/S from ankle with MDR PSAE, Proteus and Enterococcus WBC 11 Creat ok Vascular workup - planned for tomorrow Podiatry notes reviewed Antibiotics: Vancomycin Zerbaxa Lines: PIV Past Medical History: Weakness Diabetes HLD (hyperlipidemia) MDRO (multiple drug resistant organisms) resistance Onset Date: ~04/11/18 MRSA (methicillin resistant Staphylococcus aureus) PAD (peripheral artery disease) Hip surgery Allergies/Adverse Reactions: Allergies No Known Allergies Allergy (Verified 04/08/18 12:35) Objective Vital Signs 04/20/18 16:00 04/20/18 20:00 04/21/18 00:00 Temperature 98.3 F 97.8 F 97.4 F L Pulse Rate 62 66 62 Respiratory Rate 16 18 17 Blood Pressure 127/59 L 105/67 Pulse Oximetry 96 95 04/21/18 04:00 04/21/18 08:00 04/21/18 10:17 Temperature 98.8 F 98.6 F Pulse Rate 61 58 L Respiratory Rate 17 17 18 Blood Pressure 123/57 L 115/59 L Pulse Oximetry 96 96 04/21/18 10:39 04/21/18 12:00 04/21/18 14:52 Temperature 97.6 F Pulse Rate 63 Respiratory Rate 17 18 18 Blood Pressure 134/63 Pulse Oximetry 96 Intake & Output 04/20/18 04/21/18 04/21/18 18:59 06:59 18:59 Intake Total 950 / 950 930 / 930 250 / 250 Output Total 850 / 850 1400 / 1400 Balance 100 / 100 -470 / -470 250 / 250 Weight 57.7 kg Intake: IV 450 / 450 450 / 450 250 / 250 Zerbaxa Inj 1,500 MG In NS Inj 200 / 200 200 / 200 100 ML @ 100 mls/hr IV.SIG Q8H ACE Rx#:[id number] Vancomycin Inj 1,000 MG In NS 250 / 250 250 / 250 250 / 250 Inj 250 ML @ 250 mls/hr IV.SIG Q12H ACE Rx#:[id number] Oral 500 / 500 480 / 480 Output: Urine 850 / 850 1400 / 1400 Other: # Bowel Movements 0 04/16/18 15:55 Wound - Foot Gram Stain - Final 04/16/18 15:55 Wound - Foot Wound Culture - Final Pseudomonas aeruginosa Multidrug Resistant Proteus mirabilis Enterococcus faecalis Lab - Hematology Results 04/20/18 04/21/18 07:47 04:02 WBC 11.7 H 11.8 H RBC 2.92 L 2.93 L Hgb 9.4 L 8.9 L Hct 28.3 L 27.8 L MCV 97.0 95.1 MCH 32.0 30.5 MCHC 33.0 32.1 RDW 16.1 15.8 Plt Count 481 H 497 H MPV 6.5 L 6.3 L Neut % (Auto) 70.8 H 70.1 H Lymph % (Auto) 12.9 14.4 [place] % (Auto) 8.9 H 9.2 H Eos % (Auto) 4.5 H 5.2 H Baso % (Auto) 2.9 H 1.1 Neut # (Auto) 8.2 H 8.3 H Lymph # (Auto) 1.5 1.7 [place] # (Auto) 1.0 H 1.1 H Eos # (Auto) 0.5 H 0.6 H Baso # (Auto) 0.3 H 0.1 WBC Differential . . Differential Comment Auto diff final Auto diff final Lab - Chemistry Results 04/19/18 04/20/18 04/20/18 20:06 07:31 07:47 Sodium Potassium Chloride Carbon Dioxide Anion Gap BUN Creatinine 0.57 L Estimated GFR Greater than 89 POC Glucose 124 H 151 H Random Glucose Calcium Phosphorus Albumin 04/20/18 04/20/18 04/20/18 11:51 17:01 19:53 Sodium Potassium Chloride Carbon Dioxide Anion Gap BUN Creatinine Estimated GFR POC Glucose 128 H 171 H 242 H Random Glucose Calcium Phosphorus Albumin 04/21/18 04/21/18 04/21/18 04:02 08:02 11:59 Sodium 134 L Potassium 4.1 Chloride 100 Carbon Dioxide 26.9 Anion Gap 7 BUN 15 Creatinine 0.49 L Estimated GFR Greater than 89 POC Glucose 136 H 154 H Random Glucose 111 H Calcium 8.0 L Phosphorus 3.0 Albumin 2.3 L Imaging: ITS Impressions Abdomen/Pelvis CT 04/11/18 11:57 CONCLUSION: 1. There is marked destructive changes of the right proximal femur identified. The trochanteric nail hardware now extends beyond the femoral head cortex partially destroyed. There is also a patchy/permeative appearance of the shield tuberosity without obvious fracture. 2. Stool ball in the rectum and a large amount of stool throughout the colon. 3. Nonobstructing left renal calculi and left renal cyst. 4. Interval development of moderate left hydronephrosis and hydroureter without obvious obstructing stone. Head CT 04/11/18 11:59 CONCLUSION: 1. Stable appearance of the brain. . Ankle MRI 04/15/18 00:00 CONCLUSION: 1. Osteomyelitis of the posterior calcaneus with a near complete tear of the distal Achilles tendon. There is overlying cellulitis and subcutaneous edema with a small abscess adjacent to the distal Achilles tendon as measured above. There is edematous change on the plantar aspect of the foot with a tenosynovitis as above. No acute fracture identified. Mild bone edema tibia, nonspecific. Ankle X-Ray 04/15/18 00:00 CONCLUSION: Osteomyelitis of the posterior calcaneus with overlying soft tissue swelling and ulceration. No acute fracture. Physical Exam: GENERAL: awake and alert, not in respiratory distress. SKIN: Cool and dry. No generalized rash. HEAD: Atraumatic. Normocephalic. No temporal wasting, or tenderness. EYES: [place] conjunctiva. No petechia or hemorrhage. No scleral icterus. No injection or drainage. EARS, NOSE AND THROAT: Mucous membranes pink and moist. No oral lesions noted. No exudate. No oral thrush. NECK: Trachea midline. Supple and not tender, no meningeal signs CARDIOVASCULAR: Regular rate and rhythm. No murmurs, rubs or gallops heard RESPIRATORY: Clear to auscultation. Breath sounds equal bilaterally. No rales , wheezing or rhonchi ABDOMEN: Soft, non-tender, nondistended. Bowel sounds present and normoactive. No guarding. No rebound. No organomegaly. EXTREMITIES: No clubbing, cyanosis, or edema. R foot - with dressing in place. R foot cooler compared to the L foot LINE: No evidence of infection Assessment and Plan - Plan Impression Non-healing wound R heel/achilles area with abscess and osteo posterior calcaneus PVD S/P revascularization RLE GIB Leukocytosis, mild Recommendation Continue IV Vanco Continue Zerbaxa Vascular work-up Podiatry following - surgery after vascular workup done Monitor progress
[2018-04-22] MEDS ORDERED: Pharmacy Ordered Lab Info OTHER ONE (00:45)
[2018-04-22] MEDS: Vancomycin Inj 1,000 MG in Sodium Chlor 0.9% Inj 250 ML IV.SIG SCH ×2 (00:53→12:33)
[2018-04-22] MEDS ORDERED: Sodium Chlor 0.9% Inj 500 ML IV.SIG SCH (01:00)
[2018-04-22] MEDS: TAZOBACTAM IV.SIG SCH ×3 (06:22→22:10)
[2018-04-22] MEDS: SODIUM CHLOR 0.9% IV.SIG SCH ×3 (06:22→22:10)
[2018-04-22] MEDS: CEFTOLOZANE IV.SIG SCH ×3 (06:22→22:10)
[2018-04-22] MEDS: Levothyroxine 125 MCG Tablet PO SCH (06:23)
[2018-04-22 07:37] LABS: Baso # (Auto) 0.2 th/mm3 (0.0-0.2); Baso % (Auto) 1.9 % (0.0-2.0); Eos # (Auto) 0.5 th/mm3 (0.0-0.4); Eos % (Auto) 4.9 % (0.0-4.0); Hematocrit 27.3 % (39.0-51.0); Lymph # (Auto) 1.6 th/mm3 (1.0-4.8); Lymph % (Auto) 15.9 % (9.0-44.0); Mean Corpuscular HGB Conc 33.1 % (32.0-36.0); Mean Corpuscular Hemoglobin 31.6 pg (27.0-34.0); Mean Corpuscular Volume 95.3 fL (80.0-100.0); Mean Platelet Volume 6.5 fL (7.0-11.0); Mono # (Auto) 0.8 th/mm3 (0.0-0.9); Mono % (Auto) 8.4 % (0.0-8.0); Neut # (Auto) 6.9 th/mm3 (1.8-7.7); Neut % (Auto) 68.9 % (16.0-70.0); Platelet Count 516 th/mm3 (150-450); Red Blood Count 2.86 mil/mm3 (4.50-5.90)
[2018-04-22 08:08] LABS: Anion Gap 9 meq/L (5-15); Blood Urea Nitrogen 14 mg/dL (7-18); Carbon Dioxide 27.7 meq/L (21.0-32.0); Chloride 98 meq/L (98-107); Glomerular Filtration Rate Greater Than 89 mL/min (>89); Glucose,Random 128 mg/dL (74-106); Sodium 135 meq/L (136-145)
[2018-04-22] MEDS: Amiodarone 200 MG Tablet PO SCH (08:18)
[2018-04-22] MEDS: Insulin NovoLOG Aspart Correctional Sugar Inj SQ SCH ×4 (08:19→23:01)
[2018-04-22] MEDS: dilTIAZem 30 MG Tablet PO SCH ×3 (08:22→18:59)
[2018-04-22] MEDS: Polyethylene Glycol 3350 17 GM Packet PO SCH (08:29)
[2018-04-22] MEDS: Gabapentin 300 MG Capsule PO SCH ×3 (08:29→18:19)
[2018-04-22] MEDS: Ferrous Sulfate 325 MG Tablet PO SCH ×3 (08:29→18:19)
[2018-04-22] MEDS: Potassium Phos/Sodium Phos 250 MG Tablet PO SCH ×4 (08:29→22:09)
[2018-04-22] MEDS: Magnesium Oxide 400 MG Tablet PO SCH ×4 (08:29→22:09)
[2018-04-22] MEDS: Sodium Chloride 1 GM Tablet PO SCH ×3 (08:30→18:19)
[2018-04-22] MEDS: Ascorbic Acid 500 MG Tablet PO SCH ×2 (08:30→22:09)
--- NOTE | 2018-04-22 10:44 | P.PNID ---
Subjective Remarks: Patient is an 87-year-old male, admitted to the hospital for evaluation of low hemoglobin. There was apparently episodes of black tarry stools. He had a GI workup on this admission, and he seemed to be stable from the GI standpoint. Patient apparently has had a wound on his right heel Achilles area. He had vascular workup, and underwent aortogram around April 08, and had atherectomy of the right SFA and popliteal area. Patient could not really tell me how long he has had the open wound. He has pain when he walks. There is been no fever and chills. On this admission podiatry was consulted. 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 There is a foul odor coming out from that right foot, and patient really could not notice any difference. Since admission he has not been febrile. He has significant pain whenever his RLE gets moved. There was a culture from a right thigh wound that has MRSA. I do not see any culture from the right foot. His initial WBC was around 14,000 and that is down to normal. Blood cultures are negative. Infectious disease consultation has been requested to evaluate the patient. Notes reviewed D/W RN Temstacie ok C/O pain at foot For vascular procedure today at noon New C/S from ankle with MDR PSAE, Proteus and Enterococcus WBC down to normal Creat ok Antibiotics: Vancomycin Zerbaxa Lines: PIV Past Medical History: Weakness Diabetes HLD (hyperlipidemia) MDRO (multiple drug resistant organisms) resistance Onset Date: ~04/11/18 MRSA (methicillin resistant Staphylococcus aureus) PAD (peripheral artery disease) Hip surgery Allergies/Adverse Reactions: Allergies No Known Allergies Allergy (Verified 04/08/18 12:35) Objective Vital Signs 04/21/18 12:00 04/21/18 14:52 04/21/18 15:22 Temperature 97.6 F Pulse Rate 61 Respiratory Rate 18 18 Blood Pressure 134/63 Pulse Oximetry 96 04/21/18 16:00 04/21/18 17:18 04/21/18 17:51 Temperature 98.0 F Pulse Rate 65 Respiratory Rate 17 18 18 Blood Pressure 138/62 Pulse Oximetry 96 04/21/18 20:00 04/22/18 00:00 04/22/18 04:36 Temperature 97.9 F 98.3 F 97.9 F Pulse Rate 64 63 62 Respiratory Rate 17 17 17 Blood Pressure 124/61 127/60 136/63 Pulse Oximetry 94 L 95 98 04/22/18 08:00 Temperature 97.7 F Pulse Rate 59 L Respiratory Rate 17 Blood Pressure 106/55 L Pulse Oximetry 96 Intake & Output 04/21/18 04/22/18 04/22/18 18:59 06:59 18:59 Intake Total 650 / 650 350 / 350 100 / 100 Output Total 450 / 450 1280 / 1280 Balance 200 / 200 -930 / -930 100 / 100 Weight 55.8 kg Intake: IV 350 / 350 350 / 350 100 / 100 Zerbaxa Inj 1,500 MG In NS Inj 100 / 100 100 / 100 100 / 100 100 ML @ 100 mls/hr IV.SIG Q8H ACE Rx#:[id number] Vancomycin Inj 1,000 MG In NS 250 / 250 250 / 250 Inj 250 ML @ 250 mls/hr IV.SIG Q12H ACE Rx#:[id number] Oral 300 / 300 Output: Urine 450 / 450 Urine Amount (Catheter) 1280 / 1280 Condom 1280 / 1280 Other: Date of Last Bowel Movement 04/17/18 # Bowel Movements 0 04/16/18 15:55 Wound - Foot Gram Stain - Final 04/16/18 15:55 Wound - Foot Wound Culture - Final Pseudomonas aeruginosa Multidrug Resistant Proteus mirabilis Enterococcus faecalis Lab - Hematology Results 04/20/18 04/21/18 04/22/18 07:47 04:02 06:23 WBC 11.7 H 11.8 H 10.0 RBC 2.92 L 2.93 L 2.86 L Hgb 9.4 L 8.9 L 9.0 L Hct 28.3 L 27.8 L 27.3 L MCV 97.0 95.1 95.3 MCH 32.0 30.5 31.6 MCHC 33.0 32.1 33.1 RDW 16.1 15.8 16.0 Plt Count 481 H 497 H 516 H MPV 6.5 L 6.3 L 6.5 L Neut % (Auto) 70.8 H 70.1 H 68.9 Lymph % (Auto) 12.9 14.4 15.9 [place] % (Auto) 8.9 H 9.2 H 8.4 H Eos % (Auto) 4.5 H 5.2 H 4.9 H Baso % (Auto) 2.9 H 1.1 1.9 Neut # (Auto) 8.2 H 8.3 H 6.9 Lymph # (Auto) 1.5 1.7 1.6 [place] # (Auto) 1.0 H 1.1 H 0.8 Eos # (Auto) 0.5 H 0.6 H 0.5 H Baso # (Auto) 0.3 H 0.1 0.2 WBC Differential . . . Differential Comment Auto diff final Auto diff final Auto diff final Lab - Chemistry Results 04/20/18 04/20/18 04/20/18 11:51 17:01 19:53 Sodium Potassium Chloride Carbon Dioxide Anion Gap BUN Creatinine Estimated GFR POC Glucose 128 H 171 H 242 H Random Glucose Calcium Phosphorus Albumin 04/21/18 04/21/18 04/21/18 04:02 08:02 11:59 Sodium 134 L Potassium 4.1 Chloride 100 Carbon Dioxide 26.9 Anion Gap 7 BUN 15 Creatinine 0.49 L Estimated GFR Greater than 89 POC Glucose 136 H 154 H Random Glucose 111 H Calcium 8.0 L Phosphorus 3.0 Albumin 2.3 L 04/21/18 04/21/18 04/22/18 16:28 19:49 06:23 Sodium 135 L Potassium 4.0 Chloride 98 Carbon Dioxide 27.7 Anion Gap 9 BUN 14 Creatinine 0.60 Estimated GFR Greater than 89 POC Glucose 167 H 136 H Random Glucose 128 H Calcium 8.0 L Phosphorus Albumin 04/22/18 07:16 Sodium Potassium Chloride Carbon Dioxide Anion Gap BUN Creatinine Estimated GFR POC Glucose 152 H Random Glucose Calcium Phosphorus Albumin Imaging: ITS Impressions Abdomen/Pelvis CT 04/11/18 11:57 CONCLUSION: 1. There is marked destructive changes of the right proximal femur identified. The trochanteric nail hardware now extends beyond the femoral head cortex partially destroyed. There is also a patchy/permeative appearance of the shield tuberosity without obvious fracture. 2. Stool ball in the rectum and a large amount of stool throughout the colon. 3. Nonobstructing left renal calculi and left renal cyst. 4. Interval development of moderate left hydronephrosis and hydroureter without obvious obstructing stone. Head CT 04/11/18 11:59 CONCLUSION: 1. Stable appearance of the brain. . Ankle MRI 04/15/18 00:00 CONCLUSION: 1. Osteomyelitis of the posterior calcaneus with a near complete tear of the distal Achilles tendon. There is overlying cellulitis and subcutaneous edema with a small abscess adjacent to the distal Achilles tendon as measured above. There is edematous change on the plantar aspect of the foot with a tenosynovitis as above. No acute fracture identified. Mild bone edema tibia, nonspecific. Ankle X-Ray 04/15/18 00:00 CONCLUSION: Osteomyelitis of the posterior calcaneus with overlying soft tissue swelling and ulceration. No acute fracture. Physical Exam: GENERAL: awake and alert, not in respiratory distress. SKIN: Cool and dry. No generalized rash. HEAD: Atraumatic. Normocephalic. No temporal wasting, or tenderness. EYES: [place] conjunctiva. No petechia or hemorrhage. No scleral icterus. No injection or drainage. EARS, NOSE AND THROAT: Mucous membranes pink and moist. No oral lesions noted. No exudate. No oral thrush. NECK: Trachea midline. Supple and not tender, no meningeal signs CARDIOVASCULAR: Regular rate and rhythm. No murmurs, rubs or gallops heard RESPIRATORY: Clear to auscultation. Breath sounds equal bilaterally. No rales , wheezing or rhonchi ABDOMEN: Soft, non-tender, nondistended. Bowel sounds present and normoactive. No guarding. No rebound. No organomegaly. EXTREMITIES: No clubbing, cyanosis, or edema. R foot - with dressing in place. R foot cooler compared to the L foot LINE: No evidence of infection Assessment and Plan - Plan Impression Non-healing wound R heel/achilles area with abscess and osteo posterior calcaneus PVD S/P revascularization RLE GIB Leukocytosis, mild Recommendation Continue IV Vanco Continue Zerbaxa Vascular work-up in progress Podiatry following - surgery after vascular workup done Monitor progress D/W RN
--- NOTE | 2018-04-22 11:04 | P.PNFP ---
Subjective Interval history: Patient states that his pain is the same this morning. Worse with movement. He said he has had no bowel movement 3 days. Denies any abdominal pain or issues with urination. He was anxious about the procedure today and unable to sleep. Will be going for vascular procedure today. <KennethTamiko C - 04/22/18 11:04> Results - Labs Result diagrams: 04/22/18 06:23 04/22/18 06:23 <Saji Johnson - 04/22/18 19:08> Abnormal lab results 04/21/18 04/22/18 04/22/18 Range/Units 19:49 00:55 06:23 RBC 2.86 L (4.50-5.90) mil/mm3 Hgb 9.0 L (13.0-17.0) gm/dL Hct 27.3 L (39.0-51.0) % Plt Count 516 H (150-450) th/mm3 MPV 6.5 L (7.0-11.0) fL [place] % (Auto) 8.4 H (0.0-8.0) % Eos % (Auto) 4.9 H (0.0-4.0) % Eos # (Auto) 0.5 H (0.0-0.4) th/mm3 Sodium (136-145) meq/L POC Glucose 136 H (68-110) mg/dl Random Glucose (74-106) mg/dL Calcium (8.5-10.1) mg/dL Vancomycin Trough 16.0 H (5.0-10.0) mcg/mL 04/22/18 04/22/18 04/22/18 Range/Units 06:23 07:16 11:32 RBC (4.50-5.90) mil/mm3 Hgb (13.0-17.0) gm/dL Hct (39.0-51.0) % Plt Count (150-450) th/mm3 MPV (7.0-11.0) fL [place] % (Auto) (0.0-8.0) % Eos % (Auto) (0.0-4.0) % Eos # (Auto) (0.0-0.4) th/mm3 Sodium 135 L (136-145) meq/L POC Glucose 152 H 124 H (68-110) mg/dl Random Glucose 128 H (74-106) mg/dL Calcium 8.0 L (8.5-10.1) mg/dL Vancomycin Trough (5.0-10.0) mcg/mL 04/22/18 Range/Units 17:08 RBC (4.50-5.90) mil/mm3 Hgb (13.0-17.0) gm/dL Hct (39.0-51.0) % Plt Count (150-450) th/mm3 MPV (7.0-11.0) fL [place] % (Auto) (0.0-8.0) % Eos % (Auto) (0.0-4.0) % Eos # (Auto) (0.0-0.4) th/mm3 Sodium (136-145) meq/L POC Glucose 120 H (68-110) mg/dl Random Glucose (74-106) mg/dL Calcium (8.5-10.1) mg/dL Vancomycin Trough (5.0-10.0) mcg/mL Short CBC 04/22/18 Range/Units 06:23 WBC 10.0 (4.0-11.0) th/mm3 Hgb 9.0 L (13.0-17.0) gm/dL Hct 27.3 L (39.0-51.0) % Plt Count 516 H (150-450) th/mm3 BMP 04/22/18 06:23 Sodium 135 L Potassium 4.0 Chloride 98 Carbon Dioxide 27.7 BUN 14 Creatinine 0.60 Calcium 8.0 L <Young,Saji L - 04/22/18 19:08> Abnormal lab results 04/21/18 04/21/18 04/21/18 Range/Units 11:59 16:28 19:49 RBC (4.50-5.90) mil/mm3 Hgb (13.0-17.0) gm/dL Hct (39.0-51.0) % Plt Count (150-450) th/mm3 MPV (7.0-11.0) fL [place] % (Auto) (0.0-8.0) % Eos % (Auto) (0.0-4.0) % Eos # (Auto) (0.0-0.4) th/mm3 Sodium (136-145) meq/L POC Glucose 154 H 167 H 136 H (68-110) mg/dl Random Glucose (74-106) mg/dL Calcium (8.5-10.1) mg/dL Vancomycin Trough (5.0-10.0) mcg/mL 04/22/18 04/22/18 04/22/18 Range/Units 00:55 06:23 06:23 RBC 2.86 L (4.50-5.90) mil/mm3 Hgb 9.0 L (13.0-17.0) gm/dL Hct 27.3 L (39.0-51.0) % Plt Count 516 H (150-450) th/mm3 MPV 6.5 L (7.0-11.0) fL [place] % (Auto) 8.4 H (0.0-8.0) % Eos % (Auto) 4.9 H (0.0-4.0) % Eos # (Auto) 0.5 H (0.0-0.4) th/mm3 Sodium 135 L (136-145) meq/L POC Glucose (68-110) mg/dl Random Glucose 128 H (74-106) mg/dL Calcium 8.0 L (8.5-10.1) mg/dL Vancomycin Trough 16.0 H (5.0-10.0) mcg/mL 04/22/18 Range/Units 07:16 RBC (4.50-5.90) mil/mm3 Hgb (13.0-17.0) gm/dL Hct (39.0-51.0) % Plt Count (150-450) th/mm3 MPV (7.0-11.0) fL [place] % (Auto) (0.0-8.0) % Eos % (Auto) (0.0-4.0) % Eos # (Auto) (0.0-0.4) th/mm3 Sodium (136-145) meq/L POC Glucose 152 H (68-110) mg/dl Random Glucose (74-106) mg/dL Calcium (8.5-10.1) mg/dL Vancomycin Trough (5.0-10.0) mcg/mL Short CBC 04/22/18 Range/Units 06:23 WBC 10.0 (4.0-11.0) th/mm3 Hgb 9.0 L (13.0-17.0) gm/dL Hct 27.3 L (39.0-51.0) % Plt Count 516 H (150-450) th/mm3 BMP 04/22/18 06:23 Sodium 135 L Potassium 4.0 Chloride 98 Carbon Dioxide 27.7 BUN 14 Creatinine 0.60 Calcium 8.0 L <Tamiko Cooper C - 04/22/18 11:04> Physical Exam Vital signs: Vital Signs 04/21/18 20:00 04/22/18 00:00 04/22/18 04:36 Temperature 97.9 F 98.3 F 97.9 F Pulse Rate 64 63 62 Respiratory Rate 17 17 17 Blood Pressure 124/61 127/60 136/63 Pulse Oximetry 94 L 95 98 04/22/18 08:00 04/22/18 12:00 04/22/18 16:00 Temperature 97.7 F 97.7 F 98 F Pulse Rate 59 L 58 L 62 Respiratory Rate 17 17 17 Blood Pressure 106/55 L 115/52 L 127/59 L Pulse Oximetry 96 95 96 Intake & Output 04/22/18 04/22/18 04/23/18 06:59 18:59 06:59 Intake Total 350 / 350 672 / 672 Output Total 1280 / 1280 600 / 600 Balance -930 / -930 72 / 72 Weight 55.8 kg Intake: IV 350 / 350 450 / 450 Zerbaxa Inj 1,500 MG In NS Inj 100 / 100 200 / 200 100 ML @ 100 mls/hr IV.SIG Q8H ACE Rx#:[id number] Vancomycin Inj 1,000 MG In NS 250 / 250 250 / 250 Inj 250 ML @ 250 mls/hr IV.SIG Q12H ACE Rx#:[id number] Oral 222 / 222 Output: Urine 600 / 600 Urine Amount (Catheter) 1280 / 1280 Condom 1280 / 1280 Other: Date of Last Bowel Movement 04/17/18 <Saji Johnson - 04/22/18 19:08> Vital Signs 04/21/18 12:00 04/21/18 14:52 04/21/18 15:22 Temperature 97.6 F Pulse Rate 61 Respiratory Rate 18 18 18 Blood Pressure 134/63 Pulse Oximetry 96 04/21/18 16:00 04/21/18 17:18 04/21/18 17:51 Temperature 98.0 F Pulse Rate 65 Respiratory Rate 17 18 18 Blood Pressure 138/62 Pulse Oximetry 96 04/21/18 20:00 04/22/18 00:00 04/22/18 04:36 Temperature 97.9 F 98.3 F 97.9 F Pulse Rate 64 63 62 Respiratory Rate 17 17 17 Blood Pressure 124/61 127/60 136/63 Pulse Oximetry 94 L 95 98 04/22/18 08:00 Temperature 97.7 F Pulse Rate 59 L Respiratory Rate 17 Blood Pressure 106/55 L Pulse Oximetry 96 Intake & Output 04/21/18 04/22/18 04/22/18 18:59 06:59 18:59 Intake Total 650 / 650 350 / 350 100 / 100 Output Total 450 / 450 1280 / 1280 Balance 200 / 200 -930 / -930 100 / 100 Weight 55.8 kg Intake: IV 350 / 350 350 / 350 100 / 100 Zerbaxa Inj 1,500 MG In NS Inj 100 / 100 100 / 100 100 / 100 100 ML @ 100 mls/hr IV.SIG Q8H ACE Rx#:[id number] Vancomycin Inj 1,000 MG In NS 250 / 250 250 / 250 Inj 250 ML @ 250 mls/hr IV.SIG Q12H ACE Rx#:[id number] Oral 300 / 300 Output: Urine 450 / 450 Urine Amount (Catheter) 1280 / 1280 Condom 1280 / 1280 Other: Date of Last Bowel Movement 04/17/18 # Bowel Movements 0 <Tamiko Cooper - 04/22/18 11:04> Narrative: Physical examination GENERAL: Pleasant elderly male thin, appears malnourished. SKIN: Cool and dry. No generalized rash. Has some scattered ecchymoses in his UE. HEAD: Atraumatic. Normocephalic. No temporal wasting, or tenderness. EYES: Anisocoria and left eye, EOMI CARDIOVASCULAR: Regular rate and rhythm. No murmurs, rubs or gallops heard RESPIRATORY: Clear to auscultation. Breath sounds equal bilaterally. No rales , wheezing or rhonchi ABDOMEN: Soft, non-tender, nondistended. Bowel sounds present and normoactive. No guarding. No rebound. No organomegaly. EXTREMITIES: No clubbing, cyanosis, or edema. Atrophic muscular changes in both legs bilaterally. Right heel covered in bandage and in a boot. Left foot bandage dry and clean. Patient also has wound on right thigh that was bandaged with no signs of spreading erythema or infection. <Tamiko Cooper - 04/22/18 11:04> - Urinary Catheter Management Condom Cath placed during this visit: no <Saji Johnson - 04/22/18 19:08> no <Tamiko Cooper 04/22/18 11:04> Reason for continuing: Not indwelling catheter <Tamiko Cooper 04/22/18 11: 04> Indwelling Urethral Catheter Cath placed during this visit: no <Saji Johnson - 04/22/18 19:08> yes, but has since been removed by the nurse <Tamiko Cooper 04/22/18 11:04> Reason for continuing: Not indwelling catheter <Tamiko Cooper 04/22/18 11: 04> Insertion date: 04/11/18 <Tamiko Cooper 04/22/18 11:04> Insertion time: 21:08 <Tamiko Cooper 04/22/18 11:04> Removal date: 04/12/18 <Tamiko Cooper 04/22/18 11:04> Removal time: 11:35 <Tamiko Cooper - 04/22/18 11:04> Straight Cath placed during this visit: no <Saji Johnson 04/22/18 19:08> yes <Tamiko Cooper 04/22/18 11:04> Reason for continuing: Other continuation reason <Tamiko Cooper 04/22/18 11:04> Insertion date: 04/11/18 <Tamiko Cooper 04/22/18 11:04> Insertion time: 21:08 <Tamiko Cooper 04/22/18 11:04> Assessment and Plan - Assessment (1) Osteomyelitis of ankle Code(s): M86.9 - Osteomyelitis, unspecified Status: Acute (2) Chronic wound of extremity Status: Acute (3) MRSA (methicillin resistant staph aureus) culture positive Code(s): Z22.322 - Carrier or suspected carrier of Methicillin resistant Staphylococcus aureus Status: Acute (4) GI bleed Code(s): K92.2 - Gastrointestinal hemorrhage, unspecified Status: Acute (5) PAD (peripheral artery disease) Code(s): I73.9 - Peripheral vascular disease, unspecified Status: Chronic (6) Bandemia Code(s): D72.825 - Bandemia Status: Acute (7) Hydronephrosis Code(s): N13.30 - Unspecified hydronephrosis Status: Acute (8) HTN (hypertension) Code(s): I10 - Essential (primary) hypertension Status: Acute (9) Diabetes Code(s): E11.9 - Type 2 diabetes mellitus without complications Status: Acute (10) Acute blood loss anemia Code(s): D62 - Acute posthemorrhagic anemia Status: Resolved (11) Malnutrition Code(s): E46 - Unspecified protein-calorie malnutrition Status: Acute (12) Anisocoria Code(s): H57.02 - Anisocoria Status: Acute (13) Nutrition, metabolism, and development symptoms Code(s): R63.8 - Other symptoms and signs concerning food and fluid intake Status: Acute <Saji Johnson - 04/22/18 19:08> (1) Osteomyelitis of ankle Code(s): M86.9 - Osteomyelitis, unspecified Status: Acute Plan: MRI showed evidence of osteomyelitis of right ankle which likely has been brewing for some time in this diabetic patient with PAD with chronic lower- extremity non-healing ulcers Culture positive for MRSA at different site (right thigh wound) Wound Cx of right ankle showed Pseudomonas as well as multidrug-resistant Proteus and group D enterococcus Blood cultures NGTD Afebrile * Podiatry following, appreciate assistance; plan to consider calcanectomy vs debridement and irrigation depending on revascularization procedure. * Vascular surgery consulted * Angiogram of the right lower extremity today * ID consulted, appreciate recs * Continue vancomycin * Continue Zerbaxa * Wound care consulted, appreciate recs * See plan below * Pain management with [place] scheduled, gabapentin, morphine for breakthrough pain (2) Chronic wound of extremity Status: Acute Plan: Patient currently follows up with wound care as an outpatient Right hip wound, super observant dressing daily Skin tear lower left extremity, Santyl covered and dry dressing daily Right heel wound, apply gentamicin cream twice daily, see above plan for associated osteomyelitis Wound care consulted, appreciate recommendations * Cleanse wound to R Achilles heel with normal saline only and pat dry. Apply gentamicin mixed with Santyl 50/ 50 and apply to wound bed * Cover with ABD pad, and secure with rolled gauze and tape. Change dressing daily, until seen by podiatry. * Cleanse wound to R hip with normal saline and pat dry. Apply Optilock dressing secured with paper tape Change PRN for saturation or dislodgement * Cleanse wound to L posterior lower leg with normal saline and pat dry. Apply optifoam gentle 4x4 dressing change dressing every 3 days or PRN if saturated or dislodged. (3) MRSA (methicillin resistant staph aureus) culture positive Code(s): Z22.322 - Carrier or suspected carrier of Methicillin resistant Staphylococcus aureus Status: Acute Plan: This patient suffers from chronic nonhealing wounds likely secondary to peripheral arterial disease and DM. Patient had wound from right thigh cultured which ultimately grew MRSA. -Monitor for fevers and signs of systemic illness -Antibiotic therapy as above (4) GI bleed Code(s): K92.2 - Gastrointestinal hemorrhage, unspecified Status: Acute Plan: Initially presented with anemia and dark stools EGD demonstrates mild gastritis in the gastric fundus, gastric body, and gastric antrum. Deformity was found the duodenal bulb. Normal duodenal mucosa in the second part of the duodenum and third part duodenum. Retroflex views revealed no abnormalities. Colonoscopy negative terminal ileum.: Significant amount of stool throughout the colon interfere with vision with small lesion, diverticular disease, no sign of active bleeding at this point. Rectum small ulcer in the rectum biopsy was done not actively bleeding GI signed off, appreciated recommendations -Diabetic [id number] -Advised patient to follow-up with GI post discharge for biopsy results -Monitor labs -Monitor for bleeding and transfuse if required -Continue PPI -Bowel regimen -Supportive care -Further recommendations to follow -At this time, declining any further colonoscopies (5) PAD (peripheral artery disease) Code(s): I73.9 - Peripheral vascular disease, unspecified Status: Chronic Plan: s/p recent right LE arterectomy. Patient scheduled to undergo the right lower extremity angio on Saturday. (6) Bandemia Code(s): D72.825 - Bandemia Status: Acute Plan: Resolved, likely due to osteomyelitis. See above plan. (7) Hydronephrosis Code(s): N13.30 - Unspecified hydronephrosis Status: Acute Plan: Abdominal pelvis CT demonstrates development of moderate left hydronephrosis and hydroureter without ureteral obstruction. Also demonstrates stool ball in the rectum large amount of stool throughout the colon. Patient had a bladder scan 04/11 that revealed of a residual volume of 231 mL. Patient currently voiding well and is graded 200 mL of fluid today. Patient has no CVA tenderness. - Continue to monitor I's and O's. (8) HTN (hypertension) Code(s): I10 - Essential (primary) hypertension Status: Acute Plan: Continue Cardizem and amiodarone (9) Diabetes Code(s): E11.9 - Type 2 diabetes mellitus without complications Status: Acute Plan: Held home glipizide, Januvia Accu-Cheks Low-dose sliding scale Hypoglycemia protocol in place (10) Acute blood loss anemia Code(s): D62 - Acute posthemorrhagic anemia Status: Resolved Plan: In view of negative EGD/colonoscopy his present anemia is likely chronic. H/H low but stable. -Monitor H/H -Consider iron replacement (11) Malnutrition Code(s): E46 - Unspecified protein-calorie malnutrition Status: Acute Plan: This patient appears thin and possibly malnourished. Patient has significant muscle atrophy in arms and legs that are partially consistent with age and lack of activity. -Begin diet mentation with Ensure (12) Anisocoria Code(s): H57.02 - Anisocoria Status: Acute Plan: Most likely chronic in view of no other alarming ophthalmologic signs/symptoms Can follow up with Ophthalmology outpatient (13) Nutrition, metabolism, and development symptoms Code(s): R63.8 - Other symptoms and signs concerning food and fluid intake Status: Acute Plan: Fluids: P.o. hydration Diet: Diabetic supplements with protein shake Vitals every 4, monitor I's and O's DVT prophylaxis: Contraindicated due to upper GI bleed Discussed with Dr. Johnson and Dr. Garza <Tamiko Cooper - 04/22/18 11:01> - Attending Attestation The exam, history, and the medical decision-making described in the above note were completed with the assistance of the resident physician. I reviewed and agree with the findings presented. I attest that I had a [id number] encounter with the patient on the same day, and personally performed and documented my assessment and findings in the medical record. Evaluated patient with the residents. He has osteomyelitis and peripheral vascular disease. Angiogram delayed until tomorrow, to be followed by podiatry's recommendations for further management. <Saji Johnson - 04/22/18 19:08> <Tamiko Cooper - Last Filed: 04/22/18 11:01> (1) Osteomyelitis of ankle Qualifiers: Osteomyelitis type: unspecified type Laterality: right Qualified Code(s): M86.9 - Osteomyelitis, unspecified (4) GI bleed Qualifiers: GI bleed type/associated pathology: unspecified gastrointestinal hemorrhage type Qualified Code(s): K92.2 - Gastrointestinal hemorrhage, unspecified (7) Hydronephrosis Qualifiers: Hydronephrosis type: unspecified Qualified Code(s): N13.30 - Unspecified hydronephrosis <Saji Johnson - Last Filed: 04/22/18 19:08> (1) Osteomyelitis of ankle Qualifiers: Osteomyelitis type: unspecified type Laterality: right Qualified Code(s): M86.9 - Osteomyelitis, unspecified (4) GI bleed Qualifiers: GI bleed type/associated pathology: unspecified gastrointestinal hemorrhage type Qualified Code(s): K92.2 - Gastrointestinal hemorrhage, unspecified (7) Hydronephrosis Qualifiers: Hydronephrosis type: unspecified Qualified Code(s): N13.30 - Unspecified hydronephrosis <Tamiko Cooper - Last Filed: 04/22/18 11:01> (1) Osteomyelitis of ankle Qualifiers: Osteomyelitis type: unspecified type Laterality: right Qualified Code(s): M86.9 - Osteomyelitis, unspecified (4) GI bleed Qualifiers: GI bleed type/associated pathology: unspecified gastrointestinal hemorrhage type Qualified Code(s): K92.2 - Gastrointestinal hemorrhage, unspecified (7) Hydronephrosis Qualifiers: Hydronephrosis type: unspecified Qualified Code(s): N13.30 - Unspecified hydronephrosis <Saji Johnson - Last Filed: 04/22/18 19:08> (1) Osteomyelitis of ankle Qualifiers: Osteomyelitis type: unspecified type Laterality: right Qualified Code(s): M86.9 - Osteomyelitis, unspecified (4) GI bleed Qualifiers: GI bleed type/associated pathology: unspecified gastrointestinal hemorrhage type Qualified Code(s): K92.2 - Gastrointestinal hemorrhage, unspecified (7) Hydronephrosis Qualifiers: Hydronephrosis type: unspecified Qualified Code(s): N13.30 - Unspecified hydronephrosis
[2018-04-22] MEDS: Collagenase Oint 30 GM Tube TOPICAL SCH (12:46)
--- NOTE | 2018-04-22 13:12 | P.PNVS ---
Subjective Subjective/Hospital Course: Pt case rescheduled to because of an emergency Objective Vital Signs / I&O: Vital Signs 04/21/18 14:52 04/21/18 15:22 04/21/18 16:00 Temperature 98.0 F Pulse Rate 65 Respiratory Rate 18 18 17 Blood Pressure 138/62 Pulse Oximetry 96 04/21/18 17:18 04/21/18 17:51 04/21/18 20:00 Temperature 97.9 F Pulse Rate 64 Respiratory Rate 18 18 17 Blood Pressure 124/61 Pulse Oximetry 94 L 04/22/18 00:00 04/22/18 04:36 04/22/18 08:00 Temperature 98.3 F 97.9 F 97.7 F Pulse Rate 63 62 59 L Respiratory Rate 17 17 17 Blood Pressure 127/60 136/63 106/55 L Pulse Oximetry 95 98 96 04/22/18 12:00 Temperature 97.7 F Pulse Rate 58 L Respiratory Rate 17 Blood Pressure 115/52 L Pulse Oximetry 95 Intake & Output 04/21/18 04/22/18 04/22/18 18:59 06:59 18:59 Intake Total 650 / 650 350 / 350 100 / 100 Output Total 450 / 450 1280 / 1280 Balance 200 / 200 -930 / -930 100 / 100 Weight 55.8 kg Intake: IV 350 / 350 350 / 350 100 / 100 Zerbaxa Inj 1,500 MG In NS Inj 100 / 100 100 / 100 100 / 100 100 ML @ 100 mls/hr IV.SIG Q8H ACE Rx#:[id number] Vancomycin Inj 1,000 MG In NS 250 / 250 250 / 250 Inj 250 ML @ 250 mls/hr IV.SIG Q12H ACE Rx#:[id number] Oral 300 / 300 Output: Urine 450 / 450 Urine Amount (Catheter) 1280 / 1280 Condom 1280 / 1280 Other: Date of Last Bowel Movement 04/17/18 04/17/18 # Bowel Movements 0 Laboratory Results - last 24 hr 04/21/18 04/21/18 04/22/18 16:28 19:49 00:55 WBC RBC Hgb Hct MCV MCH MCHC RDW Plt Count MPV Neut % (Auto) Lymph % (Auto) [place] % (Auto) Eos % (Auto) Baso % (Auto) Neut # (Auto) Lymph # (Auto) [place] # (Auto) Eos # (Auto) Baso # (Auto) WBC Differential Differential Comment Sodium Potassium Chloride Carbon Dioxide Anion Gap BUN Creatinine Estimated GFR POC Glucose 167 H 136 H Random Glucose Calcium Vancomycin Trough 16.0 H 04/22/18 04/22/18 04/22/18 06:23 06:23 07:16 WBC 10.0 RBC 2.86 L Hgb 9.0 L Hct 27.3 L MCV 95.3 MCH 31.6 MCHC 33.1 RDW 16.0 Plt Count 516 H MPV 6.5 L Neut % (Auto) 68.9 Lymph % (Auto) 15.9 [place] % (Auto) 8.4 H Eos % (Auto) 4.9 H Baso % (Auto) 1.9 Neut # (Auto) 6.9 Lymph # (Auto) 1.6 [place] # (Auto) 0.8 Eos # (Auto) 0.5 H Baso # (Auto) 0.2 WBC Differential . Differential Comment Auto diff final Sodium 135 L Potassium 4.0 Chloride 98 Carbon Dioxide 27.7 Anion Gap 9 BUN 14 Creatinine 0.60 Estimated GFR Greater than 89 POC Glucose 152 H Random Glucose 128 H Calcium 8.0 L Vancomycin Trough 04/22/18 11:32 WBC RBC Hgb Hct MCV MCH MCHC RDW Plt Count MPV Neut % (Auto) Lymph % (Auto) [place] % (Auto) Eos % (Auto) Baso % (Auto) Neut # (Auto) Lymph # (Auto) [place] # (Auto) Eos # (Auto) Baso # (Auto) WBC Differential Differential Comment Sodium Potassium Chloride Carbon Dioxide Anion Gap BUN Creatinine Estimated GFR POC Glucose 124 H Random Glucose Calcium Vancomycin Trough Assessment and Plan - Plan OR May resume diet
[2018-04-22] MEDS: Gentamicin 0.1% Cream 15 GM Cream TOPICAL SCH ×2 (14:36→22:20)
[2018-04-23] MEDS: Vancomycin Inj 1,000 MG in Sodium Chlor 0.9% Inj 250 ML IV.SIG SCH ×2 (01:48→12:45)
[2018-04-23] MEDS: Levothyroxine 125 MCG Tablet PO SCH (05:41)
[2018-04-23] MEDS: TAZOBACTAM IV.SIG SCH ×3 (05:41→21:25)
[2018-04-23] MEDS: SODIUM CHLOR 0.9% IV.SIG SCH ×3 (05:41→21:25)
[2018-04-23] MEDS: CEFTOLOZANE IV.SIG SCH ×3 (05:41→21:25)
[2018-04-23 07:10] LABS: Baso # (Auto) 0.1 th/mm3 (0.0-0.2); Baso % (Auto) 1.4 % (0.0-2.0); Eos # (Auto) 0.5 th/mm3 (0.0-0.4); Eos % (Auto) 4.8 % (0.0-4.0); Hematocrit 26.4 % (39.0-51.0); Lymph # (Auto) 1.6 th/mm3 (1.0-4.8); Lymph % (Auto) 14.9 % (9.0-44.0); Mean Corpuscular HGB Conc 34.1 % (32.0-36.0); Mean Corpuscular Hemoglobin 31.9 pg (27.0-34.0); Mean Corpuscular Volume 93.5 fL (80.0-100.0); Mean Platelet Volume 6.7 fL (7.0-11.0); Mono # (Auto) 0.9 th/mm3 (0.0-0.9); Neut # (Auto) 7.3 th/mm3 (1.8-7.7); Neut % (Auto) 69.9 % (16.0-70.0); Platelet Count 528 th/mm3 (150-450); Red Blood Count 2.82 mil/mm3 (4.50-5.90); Red Cell Distribution Width 16.2 % (11.6-17.2); White Blood Count 10.5 th/mm3 (4.0-11.0)
[2018-04-23 07:20] LABS: Anion Gap 7 meq/L (5-15); Blood Urea Nitrogen 14 mg/dL (7-18); Calcium 8.2 mg/dL (8.5-10.1); Carbon Dioxide 27.9 meq/L (21.0-32.0); Chloride 102 meq/L (98-107); Glomerular Filtration Rate Greater Than 89 mL/min (>89); Glucose,Random 102 mg/dL (74-106); Potassium 4.1 meq/L (3.5-5.1); Sodium 137 meq/L (136-145)
[2018-04-23] MEDS: Insulin NovoLOG Aspart Correctional Sugar Inj SQ SCH ×4 (10:10→21:25)
[2018-04-23] MEDS: Amiodarone 200 MG Tablet PO SCH (10:11)
[2018-04-23] MEDS: Ferrous Sulfate 325 MG Tablet PO SCH ×3 (10:11→18:18)
[2018-04-23] MEDS: Gabapentin 300 MG Capsule PO SCH ×3 (10:11→18:18)
[2018-04-23] MEDS: dilTIAZem 30 MG Tablet PO SCH ×3 (10:11→18:19)
[2018-04-23] MEDS: Magnesium Oxide 400 MG Tablet PO SCH ×4 (10:12→21:24)
[2018-04-23] MEDS: Potassium Phos/Sodium Phos 250 MG Tablet PO SCH ×4 (10:12→21:24)
[2018-04-23] MEDS: Sodium Chloride 1 GM Tablet PO SCH ×3 (10:12→18:18)
[2018-04-23] MEDS: Ascorbic Acid 500 MG Tablet PO SCH ×2 (10:12→21:24)
[2018-04-23] MEDS: Polyethylene Glycol 3350 17 GM Packet PO SCH (10:13)
[2018-04-23] MEDS: Gentamicin 0.1% Cream 15 GM Cream TOPICAL SCH ×2 (10:13→21:25)
[2018-04-23] MEDS: Collagenase Oint 30 GM Tube TOPICAL SCH (10:19)
--- NOTE | 2018-04-23 15:59 | P.PNFP ---
Subjective Interval history: Patient says his pain is tolerable. Slept well overnight. Does not like current leg boots because limits motion. 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 Last bowel movement two days ago. Patient upset that surgery date was changed. Misses activities such as bingo at his home center. Denies any SOB. <KennethTamiko C - 04/23/18 16:01> Results - Labs Result diagrams: 04/24/18 04:25 04/23/18 06:08 <Saji Johnson - 04/24/18 22:34> Abnormal lab results 04/24/18 04/24/18 04/24/18 Range/Units 04:25 07:40 12:20 RBC 2.63 L (4.50-5.90) mil/mm3 Hgb 8.5 L (13.0-17.0) gm/dL Hct 24.8 L (39.0-51.0) % Plt Count 452 H (150-450) th/mm3 MPV 6.8 L (7.0-11.0) fL Neut % (Auto) 70.1 H (16.0-70.0) % [place] % (Auto) 10.4 H (0.0-8.0) % Eos % (Auto) 5.2 H (0.0-4.0) % [place] # (Auto) 1.0 H (0.0-0.9) th/mm3 Eos # (Auto) 0.5 H (0.0-0.4) th/mm3 POC Glucose 153 H 120 H (68-110) mg/dl 04/24/18 04/24/18 Range/Units 17:36 21:06 RBC (4.50-5.90) mil/mm3 Hgb (13.0-17.0) gm/dL Hct (39.0-51.0) % Plt Count (150-450) th/mm3 MPV (7.0-11.0) fL Neut % (Auto) (16.0-70.0) % [place] % (Auto) (0.0-8.0) % Eos % (Auto) (0.0-4.0) % [place] # (Auto) (0.0-0.9) th/mm3 Eos # (Auto) (0.0-0.4) th/mm3 POC Glucose 281 H 65 L (68-110) mg/dl Short CBC 04/24/18 Range/Units 04:25 WBC 10.1 (4.0-11.0) th/mm3 Hgb 8.5 L (13.0-17.0) gm/dL Hct 24.8 L (39.0-51.0) % Plt Count 452 H (150-450) th/mm3 <Young,Saji L - 04/24/18 22:34> Abnormal lab results 04/22/18 04/22/18 04/23/18 Range/Units 17:08 22:32 06:08 RBC 2.82 L (4.50-5.90) mil/mm3 Hgb 9.0 L (13.0-17.0) gm/dL Hct 26.4 L (39.0-51.0) % Plt Count 528 H (150-450) th/mm3 MPV 6.7 L (7.0-11.0) fL [place] % (Auto) 9.0 H (0.0-8.0) % Eos % (Auto) 4.8 H (0.0-4.0) % Eos # (Auto) 0.5 H (0.0-0.4) th/mm3 Creatinine (0.60-1.30) mg/dL POC Glucose 120 H 221 H (68-110) mg/dl Calcium (8.5-10.1) mg/dL 04/23/18 04/23/18 04/23/18 Range/Units 06:08 07:30 11:29 RBC (4.50-5.90) mil/mm3 Hgb (13.0-17.0) gm/dL Hct (39.0-51.0) % Plt Count (150-450) th/mm3 MPV (7.0-11.0) fL [place] % (Auto) (0.0-8.0) % Eos % (Auto) (0.0-4.0) % Eos # (Auto) (0.0-0.4) th/mm3 Creatinine 0.55 L (0.60-1.30) mg/dL POC Glucose 118 H 120 H (68-110) mg/dl Calcium 8.2 L (8.5-10.1) mg/dL Short CBC 04/23/18 Range/Units 06:08 WBC 10.5 (4.0-11.0) th/mm3 Hgb 9.0 L (13.0-17.0) gm/dL Hct 26.4 L (39.0-51.0) % Plt Count 528 H (150-450) th/mm3 BMP 04/23/18 06:08 Sodium 137 Potassium 4.1 Chloride 102 Carbon Dioxide 27.9 BUN 14 Creatinine 0.55 L Calcium 8.2 L <Tamiko Cooper C - 04/23/18 15:59> Physical Exam Vital signs: Vital Signs 04/24/18 00:00 04/24/18 04:00 04/24/18 08:00 Temperature 98.2 F 97.8 F 97.7 F Pulse Rate 65 62 60 Respiratory Rate 18 18 22 Blood Pressure 128/62 112/55 L 110/56 L Pulse Oximetry 96 95 04/24/18 12:03 04/24/18 12:15 04/24/18 12:30 Temperature 97.5 F L 97.5 F L Pulse Rate 70 66 66 Respiratory Rate 20 18 18 Blood Pressure 152/67 H 148/66 H 139/64 Pulse Oximetry 100 99 99 04/24/18 12:33 04/24/18 16:00 04/24/18 20:00 Temperature 97.8 F 99.9 F H Pulse Rate 88 77 Respiratory Rate 18 18 18 Blood Pressure 144/63 H 114/56 L Pulse Oximetry 94 L 95 Intake & Output 04/24/18 04/24/18 04/25/18 06:59 18:59 06:59 Intake Total 350 / 350 850 / 850 Output Total 600 / 600 615 / 615 Balance -250 / -250 235 / 235 Weight 56.5 kg Intake: IV 350 / 350 450 / 450 Zerbaxa Inj 1,500 MG In NS Inj 100 / 100 200 / 200 100 ML @ 100 mls/hr IV.SIG Q8H ACE Rx#:[id number] Vancomycin Inj 1,000 MG In NS 250 / 250 250 / 250 Inj 250 ML @ 250 mls/hr IV.SIG Q12H ACE Rx#:[id number] Anesthesia Amount 400 / 400 Output: Estimated Blood Loss 15 / 15 Urine Amount (Catheter) 600 / 600 600 / 600 Condom 600 / 600 Indwelling Urethral Catheter 600 / 600 Other: # Voids 1 Date of Last Bowel Movement 04/23/18 04/23/18 # Bowel Movements 3 <Saji Johnson L - 04/24/18 22:34> Vital Signs 04/22/18 16:00 04/22/18 20:00 04/23/18 00:00 Temperature 98 F 97.6 F 97.7 F Pulse Rate 62 65 60 Respiratory Rate 17 17 18 Blood Pressure 127/59 L 106/55 L 114/55 L Pulse Oximetry 96 97 97 04/23/18 04:00 04/23/18 08:00 04/23/18 13:25 Temperature 97.5 F L 98.1 F 97.6 F Pulse Rate 62 63 63 Respiratory Rate 16 18 18 Blood Pressure 121/60 112/59 L 105/57 L Pulse Oximetry 94 L 96 97 Intake & Output 04/22/18 04/23/18 04/23/18 18:59 06:59 18:59 Intake Total 672 / 672 630 / 630 350 / 350 Output Total 600 / 600 480 / 480 700 / 700 Balance 72 / 72 150 / 150 -350 / -350 Weight 55.8 kg Intake: IV 450 / 450 450 / 450 350 / 350 Zerbaxa Inj 1,500 MG In NS Inj 200 / 200 200 / 200 100 / 100 100 ML @ 100 mls/hr IV.SIG Q8H ACE Rx#:[id number] Vancomycin Inj 1,000 MG In NS 250 / 250 250 / 250 250 / 250 Inj 250 ML @ 250 mls/hr IV.SIG Q12H ACE Rx#:[id number] Oral 222 / 222 180 / 180 Output: Urine 600 / 600 Urine Amount (Catheter) 480 / 480 700 / 700 Condom 480 / 480 700 / 700 Other: Date of Last Bowel Movement 04/17/18 04/17/18 04/17/18 <Tamiko Cooper C - 04/23/18 15:59> Narrative: Physical examination GENERAL: Pleasant elderly male thin, appears malnourished. SKIN: Cool and dry. No generalized rash. Has some scattered ecchymoses in his UE. HEAD: Atraumatic. Normocephalic. No temporal wasting, or tenderness. EYES: Anisocoria and left eye, EOMI CARDIOVASCULAR: Regular rate and rhythm. No murmurs, rubs or gallops heard RESPIRATORY: Clear to auscultation. Breath sounds equal bilaterally. No rales , wheezing or rhonchi ABDOMEN: Soft, non-tender, nondistended. Bowel sounds present and normoactive. No guarding. No rebound. No organomegaly. EXTREMITIES: No clubbing, cyanosis, or edema. Atrophic muscular changes in both legs bilaterally. Right heel covered in bandage and in a boot. Left foot bandage dry and clean. Patient also has wound on right thigh that was bandaged with no signs of spreading erythema or infection. <Tamiko Cooper 04/23/18 15:59> - Urinary Catheter Management Condom Cath placed during this visit: no <Saji Johnson 04/24/18 22:34> no <Tamiko Cooper 04/23/18 16:01> Reason for continuing: Not indwelling catheter <Tamiko Cooper 04/23/18 15: 59> Indwelling Urethral Catheter Cath placed during this visit: no <Saji Johnson 04/24/18 22:34> yes, but has since been removed by the nurse <Tamiko Cooper 04/23/18 16:01> Reason for continuing: Not indwelling catheter <Tamiko Cooper 04/23/18 15: 59> Insertion date: 04/11/18 <Tamiko Cooper 04/23/18 15:59> Insertion time: 21:08 <Tamiko Cooper 04/23/18 15:59> Removal date: 04/12/18 <Tamiko Cooper 04/23/18 15:59> Removal time: 11:35 <Tamiko Cooper 04/23/18 15:59> Straight Cath placed during this visit: no <Saji Johnson 04/24/18 22:34> yes <Tamiko Cooper 04/23/18 16:01> Reason for continuing: Other continuation reason <Tamiko Cooper 04/23/18 15:59> Insertion date: 04/11/18 <Tamiko Cooper 04/23/18 15:59> Insertion time: 21:08 <Tamiko Cooper 04/23/18 15:59> Assessment and Plan - Assessment (1) Osteomyelitis of ankle Code(s): M86.9 - Osteomyelitis, unspecified Status: Acute (2) Chronic wound of extremity Status: Chronic (3) MRSA (methicillin resistant staph aureus) culture positive Code(s): Z22.322 - Carrier or suspected carrier of Methicillin resistant Staphylococcus aureus Status: Acute (4) GI bleed Code(s): K92.2 - Gastrointestinal hemorrhage, unspecified Status: Acute (5) PAD (peripheral artery disease) Code(s): I73.9 - Peripheral vascular disease, unspecified Status: Chronic (6) Bandemia Code(s): D72.825 - Bandemia Status: Resolved (7) Hydronephrosis Code(s): N13.30 - Unspecified hydronephrosis Status: Acute (8) HTN (hypertension) Code(s): I10 - Essential (primary) hypertension Status: Acute (9) Diabetes Code(s): E11.9 - Type 2 diabetes mellitus without complications Status: Acute (10) Acute blood loss anemia Code(s): D62 - Acute posthemorrhagic anemia Status: Resolved (11) Malnutrition Code(s): E46 - Unspecified protein-calorie malnutrition Status: Acute (12) Anisocoria Code(s): H57.02 - Anisocoria Status: Acute (13) Nutrition, metabolism, and development symptoms Code(s): R63.8 - Other symptoms and signs concerning food and fluid intake Status: Acute <Saji Johnson - 04/24/18 22:34> (1) Osteomyelitis of ankle Code(s): M86.9 - Osteomyelitis, unspecified Status: Acute Plan: MRI showed evidence of osteomyelitis of right ankle which likely has been brewing for some time in this diabetic patient with PAD with chronic lower- extremity non-healing ulcers Culture positive for MRSA at different site (right thigh wound) Wound Cx of right ankle showed Pseudomonas as well as multidrug-resistant Proteus and group D enterococcus Blood cultures NGTD Afebrile * Podiatry following, appreciate assistance; plan to consider calcanectomy vs debridement and irrigation depending on revascularization procedure. * Vascular surgery consulted * Angiogram of the right lower extremity rescheduled to am. * ID consulted, appreciate recs * Continue vancomycin * Continue Zerbaxa * Wound care consulted, appreciate recs * See plan below * Pain management with [place] scheduled, gabapentin, morphine for breakthrough pain (2) Chronic wound of extremity Status: Acute Plan: Patient currently follows up with wound care as an outpatient Right hip wound, super observant dressing daily Skin tear lower left extremity, Santyl covered and dry dressing daily Right heel wound, apply gentamicin cream twice daily, see above plan for associated osteomyelitis Wound care consulted, appreciate recommendations * Cleanse wound to R Achilles heel with normal saline only and pat dry. Apply gentamicin mixed with Santyl 50/ 50 and apply to wound bed * Cover with ABD pad, and secure with rolled gauze and tape. Change dressing daily, until seen by podiatry. * Cleanse wound to R hip with normal saline and pat dry. Apply Optilock dressing secured with paper tape Change PRN for saturation or dislodgement * Cleanse wound to L posterior lower leg with normal saline and pat dry. Apply optifoam gentle 4x4 dressing change dressing every 3 days or PRN if saturated or dislodged. (3) MRSA (methicillin resistant staph aureus) culture positive Code(s): Z22.322 - Carrier or suspected carrier of Methicillin resistant Staphylococcus aureus Status: Acute Plan: This patient suffers from chronic nonhealing wounds likely secondary to peripheral arterial disease and DM. Patient had wound from right thigh cultured which ultimately grew MRSA. -Monitor for fevers and signs of systemic illness -Antibiotic therapy as above (4) GI bleed Code(s): K92.2 - Gastrointestinal hemorrhage, unspecified Status: Acute Plan: Initially presented with anemia and dark stools EGD demonstrates mild gastritis in the gastric fundus, gastric body, and gastric antrum. Deformity was found the duodenal bulb. Normal duodenal mucosa in the second part of the duodenum and third part duodenum. Retroflex views revealed no abnormalities. Colonoscopy negative terminal ileum.: Significant amount of stool throughout the colon interfere with vision with small lesion, diverticular disease, no sign of active bleeding at this point. Rectum small ulcer in the rectum biopsy was done not actively bleeding GI signed off, appreciated recommendations -Diabetic [id number] -Advised patient to follow-up with GI post discharge for biopsy results -Monitor labs -Monitor for bleeding and transfuse if required -Continue PPI -Bowel regimen -Supportive care -Further recommendations to follow -At this time, declining any further colonoscopies (5) PAD (peripheral artery disease) Code(s): I73.9 - Peripheral vascular disease, unspecified Status: Chronic Plan: s/p recent right LE arterectomy. Patient scheduled to undergo the right lower extremity angio on [place]. (6) Bandemia Code(s): D72.825 - Bandemia Status: Acute Plan: Resolved, likely due to osteomyelitis. See above plan. (7) Hydronephrosis Code(s): N13.30 - Unspecified hydronephrosis Status: Acute Plan: Abdominal pelvis CT demonstrates development of moderate left hydronephrosis and hydroureter without ureteral obstruction. Also demonstrates stool ball in the rectum large amount of stool throughout the colon. Patient had a bladder scan 04/11 that revealed of a residual volume of 231 mL. Patient currently voiding well and is graded 200 mL of fluid today. Patient has no CVA tenderness. - Continue to monitor I's and O's. (8) HTN (hypertension) Code(s): I10 - Essential (primary) hypertension Status: Acute Plan: Continue Cardizem and amiodarone (9) Diabetes Code(s): E11.9 - Type 2 diabetes mellitus without complications Status: Acute Plan: Held home glipizide, Januvia Accu-Cheks Low-dose sliding scale Hypoglycemia protocol in place (10) Acute blood loss anemia Code(s): D62 - Acute posthemorrhagic anemia Status: Resolved Plan: In view of negative EGD/colonoscopy his present anemia is likely chronic. H/H low but stable. -Monitor H/H -Consider iron replacement (11) Malnutrition Code(s): E46 - Unspecified protein-calorie malnutrition Status: Acute Plan: This patient appears thin and possibly malnourished. Patient has significant muscle atrophy in arms and legs that are partially consistent with age and lack of activity. -Begin diet mentation with Ensure (12) Anisocoria Code(s): H57.02 - Anisocoria Status: Acute Plan: Most likely chronic in view of no other alarming ophthalmologic signs/symptoms Can follow up with Ophthalmology outpatient (13) Nutrition, metabolism, and development symptoms Code(s): R63.8 - Other symptoms and signs concerning food and fluid intake Status: Acute Plan: Fluids: P.o. hydration Diet: Diabetic supplements with protein shake. NPO at midnight Vitals every 4, monitor I's and O's DVT prophylaxis: Contraindicated due to upper GI bleed Discussed with Dr. Johnson and Dr. Garza <Tamiko Cooper - 04/23/18 15:59> - Attending Attestation The exam, history, and the medical decision-making described in the above note were completed with the assistance of the resident physician. I reviewed and agree with the findings presented. I attest that I had a [id number] encounter with the patient on the same day, and personally performed and documented my assessment and findings in the medical record. <Saji Johnson - 04/24/18 22:34> <Tamiko Cooper - Last Filed: 04/23/18 15:59> (1) Osteomyelitis of ankle Qualifiers: Osteomyelitis type: unspecified type Laterality: right Qualified Code(s): M86.9 - Osteomyelitis, unspecified (4) GI bleed Qualifiers: GI bleed type/associated pathology: unspecified gastrointestinal hemorrhage type Qualified Code(s): K92.2 - Gastrointestinal hemorrhage, unspecified (7) Hydronephrosis Qualifiers: Hydronephrosis type: unspecified Qualified Code(s): N13.30 - Unspecified hydronephrosis <Saji Johnson - Last Filed: 04/24/18 22:34> (1) Osteomyelitis of ankle Qualifiers: Osteomyelitis type: unspecified type Laterality: right Qualified Code(s): M86.9 - Osteomyelitis, unspecified (4) GI bleed Qualifiers: GI bleed type/associated pathology: unspecified gastrointestinal hemorrhage type Qualified Code(s): K92.2 - Gastrointestinal hemorrhage, unspecified (7) Hydronephrosis Qualifiers: Hydronephrosis type: unspecified Qualified Code(s): N13.30 - Unspecified hydronephrosis <Tamiko Cooper - Last Filed: 04/23/18 15:59> (1) Osteomyelitis of ankle Qualifiers: Osteomyelitis type: unspecified type Laterality: right Qualified Code(s): M86.9 - Osteomyelitis, unspecified (4) GI bleed Qualifiers: GI bleed type/associated pathology: unspecified gastrointestinal hemorrhage type Qualified Code(s): K92.2 - Gastrointestinal hemorrhage, unspecified (7) Hydronephrosis Qualifiers: Hydronephrosis type: unspecified Qualified Code(s): N13.30 - Unspecified hydronephrosis <Saji Johnson - Last Filed: 04/24/18 22:34> (1) Osteomyelitis of ankle Qualifiers: Osteomyelitis type: unspecified type Laterality: right Qualified Code(s): M86.9 - Osteomyelitis, unspecified (4) GI bleed Qualifiers: GI bleed type/associated pathology: unspecified gastrointestinal hemorrhage type Qualified Code(s): K92.2 - Gastrointestinal hemorrhage, unspecified (7) Hydronephrosis Qualifiers: Hydronephrosis type: unspecified Qualified Code(s): N13.30 - Unspecified hydronephrosis
[2018-04-24] MEDS: Vancomycin Inj 1,000 MG in Sodium Chlor 0.9% Inj 250 ML IV.SIG SCH ×2 (01:25→13:02)
[2018-04-24] MEDS: TAZOBACTAM IV.SIG SCH ×3 (06:07→21:15)
[2018-04-24] MEDS: SODIUM CHLOR 0.9% IV.SIG SCH ×3 (06:07→21:15)
[2018-04-24] MEDS: CEFTOLOZANE IV.SIG SCH ×3 (06:07→21:15)
[2018-04-24] MEDS: Levothyroxine 125 MCG Tablet PO SCH (06:07)
[2018-04-24 06:43] LABS: Baso # (Auto) 0.1 th/mm3 (0.0-0.2); Baso % (Auto) 1.2 % (0.0-2.0); Eos # (Auto) 0.5 th/mm3 (0.0-0.4); Eos % (Auto) 5.2 % (0.0-4.0); Hematocrit 24.8 % (39.0-51.0); Hemoglobin 8.5 gm/dL (13.0-17.0); Lymph # (Auto) 1.3 th/mm3 (1.0-4.8); Lymph % (Auto) 13.1 % (9.0-44.0); Mean Corpuscular HGB Conc 34.4 % (32.0-36.0); Mean Corpuscular Hemoglobin 32.5 pg (27.0-34.0); Mean Corpuscular Volume 94.4 fL (80.0-100.0); Mean Platelet Volume 6.8 fL (7.0-11.0); Mono % (Auto) 10.4 % (0.0-8.0); Neut # (Auto) 7.1 th/mm3 (1.8-7.7); Neut % (Auto) 70.1 % (16.0-70.0); Platelet Count 452 th/mm3 (150-450); Red Blood Count 2.63 mil/mm3 (4.50-5.90); Red Cell Distribution Width 16.4 % (11.6-17.2); White Blood Count 10.1 th/mm3 (4.0-11.0)
[2018-04-24] MEDS: dilTIAZem 30 MG Tablet PO SCH ×3 (08:04→17:47)
[2018-04-24] MEDS: Insulin NovoLOG Aspart Correctional Sugar Inj SQ SCH ×4 (08:06→21:16)
[2018-04-24] MEDS: Amiodarone 200 MG Tablet PO SCH (08:06)
[2018-04-24] MEDS ORDERED: Heparin 10,000 UNITS/10 ML Vial (for IV use) ONE (09:53)
[2018-04-24] MEDS ORDERED: Heparin/NS PF Inj 500 ML ONE (09:53)
[2018-04-24] MEDS ORDERED: Lidocaine PF 1% Inj 5 ML Syringe INFILTRATN ONE (10:47)
[2018-04-24] MEDS ORDERED: Phenylephrine/NS 1000 MCG/10ML Syringe IV.PUSH ONE (10:47)
[2018-04-24] MEDS ORDERED: Iohexol 300 MG/ML 50 ML Vial (for Rad Diag) IVCONTRAST ONE ×2 (11:49→12:15)
--- NOTE | 2018-04-24 11:58 | P.OP ---
- Preoperative Diagnosis (1) PAD (peripheral artery disease) - Postoperative Diagnosis (1) PAD (peripheral artery disease) Date of procedure: 04/24/18 Procedure: 1. R LE angiogram 2. R popliteal DIRECTOR OF HE[employer] CARE MARKETING (5mm) 3. L CARE MANAGEMENT SPECIALIST Angioseal Implants: L CARE MANAGEMENT SPECIALIST Angioseal Anesthesia: GETA Surgeon: Urban Oliva MD Estimated blood loss (mL): 5 IV fluids (mL): 300 Pathology: none sent Operation and Findings: 1. Popliteal stenosis, successful [employer]OR OF HE[employer] C[employer] MARKETING 2. AT and PT occluded 3. Peroneal runoff to foot with focal occlusion, unable to canalize beyond 0.014 wire
[2018-04-24] MEDS ORDERED: fentaNYL Citrate Inj 100 MCG/2 ML Ampul ONE (12:09)
[2018-04-24] MEDS ORDERED: *morphine SULFATE 4 MG/ML PERIprocedure ONLY ONE (12:24)
[2018-04-24] MEDS: Ferrous Sulfate 325 MG Tablet PO SCH ×3 (12:42→17:47)
[2018-04-24] MEDS: Potassium Phos/Sodium Phos 250 MG Tablet PO SCH ×4 (12:42→21:09)
[2018-04-24] MEDS: Gabapentin 300 MG Capsule PO SCH ×3 (12:43→17:47)
[2018-04-24] MEDS: Sodium Chloride 1 GM Tablet PO SCH ×3 (12:43→17:47)
[2018-04-24] MEDS: Magnesium Oxide 400 MG Tablet PO SCH ×4 (12:43→21:09)
[2018-04-24] MEDS: Polyethylene Glycol 3350 17 GM Packet PO SCH (13:04)
[2018-04-24] MEDS: Ascorbic Acid 500 MG Tablet PO SCH ×2 (13:04→21:09)
[2018-04-24] MEDS: Gentamicin 0.1% Cream 15 GM Cream TOPICAL SCH ×2 (13:05→21:16)
[2018-04-24] MEDS: Collagenase Oint 30 GM Tube TOPICAL SCH (13:05)
--- NOTE | 2018-04-24 13:17 | MP ---
cc: Urban Oliva MD DATE OF OPERATION: 04/24/2018 PREOPERATIVE DIAGNOSIS: Right lower extremity ischemia, peripheral vascular disease. POSTOPERATIVE DIAGNOSIS: Right lower extremity ischemia, peripheral vascular disease. PROCEDURE PERFORMED: 1. Right lower extremity angiogram. 2. Right popliteal angioplasty. 3. Left common femoral artery Angio-Seal. ATTENDING SURGEON: Urban Oliva MD. ANESTHESIA: General. INDICATIONS FOR PROCEDURE: Mr. Escobedo is an 87-year-old gentleman with right lower extremity tissue loss and nonpalpable pedal pulses. He previously had an angiogram which was a popliteal atherectomy, complicated by outflow occlusion, treated with a heparin drip. He was taken back to the operating room for repeat angiogram. There was no prior catheter-based imaging, just a change of his wound. DESCRIPTION OF PROCEDURE: Informed consent was obtained from the patient. He was taken to the operating room and placed supine on the operating table. An appropriate timeout was taken to ensure the patient's identity, the operative site, and planned procedure. He was already on systemic and therapeutic antibiotics and these will be continued postoperatively. Everyone in the room agreed with timeout and we proceeded. His bilateral groins were prepped and draped. Left groin was accessed with a 21-gauge micropuncture needle. This was exchanged using Seldinger technique for micropuncture sheath, through which a 0.035 Glidewire was introduced. Micropuncture sheath was exchanged for a 5-[place] sheath and the VCF catheter was placed over the wire through the sheath. The Glidewire and a VCF catheter were navigated down the right lower extremity and right common femoral artery angiogram was obtained. The patient was then heparinized with 5000 units of IV heparin and then 3000 additional units were administered approximately 20 minutes later. A 0.035 Cota wire was advanced down the popliteal artery. The VCF catheter and 5-[place] sheath were removed and a 6-Central African 90 cm sheath was introduced after the distal SFA and the popliteal artery was angioplastied with a 5 mm balloon. The completion angiogram showed excellent result without extravasation. The CXI catheter was placed over the Cota wire and the Cota was exchanged for a TRACK MECHANIC wire which was used to navigate into the peroneal artery. Then, multiple wires and catheter were used to attempt to recanalize to peroneal artery occlusion, but these were unsuccessful as we could only get a 0.014 wire. The wire, catheter, and sheath were removed. The groin was closed with Angio-Seal. There were no complications. I was present, scrubbed, and performed the entire procedure. INTERPRETATION OF IMAGES: This patient has patent profunda, SFA, and popliteal artery with some stenoses. The stenoses were treated effectively with a 5 mm angioplasty balloon. The anterior tibial artery and posterior tibial artery are occluded. The peroneal artery is patent except for a short segmental focal occlusion with distal reconstitution runoff to the foot. Urban Oliva MD RJLuis/ts/ll , 12:30 PM , 12:38 PM MTDD
--- NOTE | 2018-04-24 15:57 | P.PNFP ---
Subjective Interval history: No acute events overnight. Patient seen and examined this afternoon following vascular surgery procedure. Patient appears comfortable. Somewhat confused but easily re-oriented. He is alert and oriented to person and place. States it is 2013 initially but understands it is 2018. Denies fevers , CP. Endorses aching pain. Denies other specific complaints or concerns. <MarkbyronZack olverash - 04/24/18 16:12> Results - Labs Result diagrams: 04/24/18 04:25 04/23/18 06:08 <Saji Johnson - 04/24/18 22:22> Abnormal lab results 04/24/18 04/24/18 04/24/18 Range/Units 04:25 07:40 12:20 RBC 2.63 L (4.50-5.90) mil/mm3 Hgb 8.5 L (13.0-17.0) gm/dL Hct 24.8 L (39.0-51.0) % Plt Count 452 H (150-450) th/mm3 MPV 6.8 L (7.0-11.0) fL Neut % (Auto) 70.1 H (16.0-70.0) % [place] % (Auto) 10.4 H (0.0-8.0) % Eos % (Auto) 5.2 H (0.0-4.0) % [place] # (Auto) 1.0 H (0.0-0.9) th/mm3 Eos # (Auto) 0.5 H (0.0-0.4) th/mm3 POC Glucose 153 H 120 H (68-110) mg/dl 04/24/18 04/24/18 Range/Units 17:36 21:06 RBC (4.50-5.90) mil/mm3 Hgb (13.0-17.0) gm/dL Hct (39.0-51.0) % Plt Count (150-450) th/mm3 MPV (7.0-11.0) fL Neut % (Auto) (16.0-70.0) % [place] % (Auto) (0.0-8.0) % Eos % (Auto) (0.0-4.0) % [place] # (Auto) (0.0-0.9) th/mm3 Eos # (Auto) (0.0-0.4) th/mm3 POC Glucose 281 H 65 L (68-110) mg/dl Short CBC 04/24/18 Range/Units 04:25 WBC 10.1 (4.0-11.0) th/mm3 Hgb 8.5 L (13.0-17.0) gm/dL Hct 24.8 L (39.0-51.0) % Plt Count 452 H (150-450) th/mm3 <Young,Saji L - 04/24/18 22:22> Abnormal lab results 04/23/18 04/23/18 04/24/18 Range/Units 18:00 21:23 04:25 RBC 2.63 L (4.50-5.90) mil/mm3 Hgb 8.5 L (13.0-17.0) gm/dL Hct 24.8 L (39.0-51.0) % Plt Count 452 H (150-450) th/mm3 MPV 6.8 L (7.0-11.0) fL Neut % (Auto) 70.1 H (16.0-70.0) % [place] % (Auto) 10.4 H (0.0-8.0) % Eos % (Auto) 5.2 H (0.0-4.0) % [place] # (Auto) 1.0 H (0.0-0.9) th/mm3 Eos # (Auto) 0.5 H (0.0-0.4) th/mm3 POC Glucose 207 H 165 H (68-110) mg/dl 04/24/18 04/24/18 Range/Units 07:40 12:20 RBC (4.50-5.90) mil/mm3 Hgb (13.0-17.0) gm/dL Hct (39.0-51.0) % Plt Count (150-450) th/mm3 MPV (7.0-11.0) fL Neut % (Auto) (16.0-70.0) % [place] % (Auto) (0.0-8.0) % Eos % (Auto) (0.0-4.0) % [place] # (Auto) (0.0-0.9) th/mm3 Eos # (Auto) (0.0-0.4) th/mm3 POC Glucose 153 H 120 H (68-110) mg/dl Short CBC 04/24/18 Range/Units 04:25 WBC 10.1 (4.0-11.0) th/mm3 Hgb 8.5 L (13.0-17.0) gm/dL Hct 24.8 L (39.0-51.0) % Plt Count 452 H (150-450) th/mm3 <Duke Rice - 04/24/18 15:57> Physical Exam Vital signs: Vital Signs 04/24/18 00:00 04/24/18 04:00 04/24/18 08:00 Temperature 98.2 F 97.8 F 97.7 F Pulse Rate 65 62 60 Respiratory Rate 18 18 22 Blood Pressure 128/62 112/55 L 110/56 L Pulse Oximetry 96 95 04/24/18 12:03 04/24/18 12:15 04/24/18 12:30 Temperature 97.5 F L 97.5 F L Pulse Rate 70 66 66 Respiratory Rate 20 18 18 Blood Pressure 152/67 H 148/66 H 139/64 Pulse Oximetry 100 99 99 04/24/18 12:33 04/24/18 16:00 04/24/18 20:00 Temperature 97.8 F 99.9 F H Pulse Rate 88 77 Respiratory Rate 18 18 18 Blood Pressure 144/63 H 114/56 L Pulse Oximetry 94 L 95 Intake & Output 04/24/18 04/24/18 04/25/18 06:59 18:59 06:59 Intake Total 350 / 350 850 / 850 Output Total 600 / 600 615 / 615 Balance -250 / -250 235 / 235 Weight 56.5 kg Intake: IV 350 / 350 450 / 450 Zerbaxa Inj 1,500 MG In NS Inj 100 / 100 200 / 200 100 ML @ 100 mls/hr IV.SIG Q8H ACE Rx#:[id number] Vancomycin Inj 1,000 MG In NS 250 / 250 250 / 250 Inj 250 ML @ 250 mls/hr IV.SIG Q12H ACE Rx#:[id number] Anesthesia Amount 400 / 400 Output: Estimated Blood Loss 15 15 Urine Amount (Catheter) 600 / 600 600 / 600 Condom 600 / 600 Indwelling Urethral Catheter 600 / 600 Other: # Voids 1 Date of Last Bowel Movement 04/23/18 04/23/18 # Bowel Movements 3 <Saji Johnson - 04/24/18 22:22> Vital Signs 04/23/18 16:00 04/23/18 20:00 04/24/18 00:00 Temperature 98.0 F 98.0 F 98.2 F Pulse Rate 64 62 65 Respiratory Rate 18 18 18 Blood Pressure 114/56 L 115/56 L 128/62 Pulse Oximetry 96 96 96 04/24/18 04:00 04/24/18 08:00 04/24/18 12:03 Temperature 97.8 F 97.7 F 97.5 F L Pulse Rate 62 60 70 Respiratory Rate 18 20 Blood Pressure 112/55 L 110/56 L 152/67 H Pulse Oximetry 95 100 04/24/18 12:15 04/24/18 12:30 04/24/18 12:33 Temperature 97.5 F L Pulse Rate 66 66 Respiratory Rate 18 Blood Pressure 148/66 H 139/64 Pulse Oximetry 99 99 Intake & Output 04/23/18 04/24/18 04/24/18 18:59 06:59 18:59 Intake Total 1070 / 1070 350 / 350 750 / 750 Output Total 1250 / 1250 600 / 600 Balance -180 / -180 -250 / -250 735 / 735 Weight 56.5 kg Intake: IV 350 / 350 350 / 350 350 / 350 Zerbaxa Inj 1,500 MG In NS Inj 100 / 100 100 / 100 100 / 100 100 ML @ 100 mls/hr IV.SIG Q8H ACE Rx#:[id number] Vancomycin Inj 1,000 MG In NS 250 / 250 250 / 250 250 / 250 Inj 250 ML @ 250 mls/hr IV.SIG Q12H ACE Rx#:[id number] Oral 720 / 720 Anesthesia Amount 400 / 400 Output: Urine 550 / 550 Estimated Blood Loss Urine Amount (Catheter) 700 / 700 600 / 600 Condom 700 / 700 600 / 600 Other: Date of Last Bowel Movement 04/17/18 04/23/18 <Duke Rice - 04/24/18 15:57> Narrative: GENERAL: Pleasant elderly male thin, appears malnourished. SKIN: Cool and dry. No generalized rash. Has some scattered ecchymoses in his UE. HEAD: Atraumatic. Normocephalic. No temporal wasting, or tenderness. EYES: [place]isocoria and left eye, EOMI CARDIOVASCULAR: Regular rate and rhythm. No murmurs, rubs or gallops heard RESPIRATORY: Clear to auscultation. Breath sounds equal bilaterally. No rales , wheezing or rhonchi ABDOMEN: Soft, non-tender, nondistended. No guarding. No rebound. No organomegaly. EXTREMITIES: No edema. Atrophic muscular changes in both legs bilaterally. Right heel covered in bandage and in a boot. Left foot bandage dry and clean. Patient also has wound on right thigh that was bandaged with no signs of spreading erythema or infection. <CristopherdavanamDuke - 04/24/18 15:57> - Urinary Catheter Management Condom Cath placed during this visit: no <Saji Johnsno - 04/24/18 22:22> no <MarknadegeDuke 04/24/18 16:12> Reason for continuing: Not indwelling catheter <CristopherdanadegeDuke 04/24/18 15:57> Indwelling Urethral Catheter Cath placed during this visit: no <Saji Johnson - 04/24/18 22:22> yes, but has since been removed by the nurse <Marknadege Duke 04/24/18 16:12> Reason for continuing: Not indwelling catheter <CristopherdanadegeDuke 04/24/18 15:57> Insertion date: 04/11/18 <KandavanamDuke - 04/24/18 15:57> Insertion time: 21:08 <KandavanamDuke - 04/24/18 15:57> Removal date: 04/12/18 <KandavanamDuke - 04/24/18 15:57> Removal time: 11:35 <Kandavanam,Duke - 04/24/18 15:57> Straight Cath placed during this visit: no <Saji Johnson - 04/24/18 22:22> yes <MarknadegeDuke - 04/24/18 16:12> Reason for continuing: Other continuation reason <KandavanamDuke - 15:57> Insertion date: 04/11/18 <KandavanamDuke - 04/24/18 15:57> Insertion time: 21:08 <KandavanamDuke - 04/24/18 15:57> Assessment and Plan - Assessment (1) Osteomyelitis of ankle Code(s): M86.9 - Osteomyelitis, unspecified Status: Acute (2) Chronic wound of extremity Status: Chronic (3) MRSA (methicillin resistant staph aureus) culture positive Code(s): Z22.322 - Carrier or suspected carrier of Methicillin resistant Staphylococcus aureus Status: Acute (4) GI bleed Code(s): K92.2 - Gastrointestinal hemorrhage, unspecified Status: Acute (5) PAD (peripheral artery disease) Code(s): I73.9 - Peripheral vascular disease, unspecified Status: Chronic (6) Bandemia Code(s): D72.825 - Bandemia Status: Resolved (7) Hydronephrosis Code(s): N13.30 - Unspecified hydronephrosis Status: Acute (8) HTN (hypertension) Code(s): I10 - Essential (primary) hypertension Status: Acute (9) Diabetes Code(s): E11.9 - Type 2 diabetes mellitus without complications Status: Acute (10) Acute blood loss anemia Code(s): D62 - Acute posthemorrhagic anemia Status: Resolved (11) Malnutrition Code(s): E46 - Unspecified protein-calorie malnutrition Status: Acute (12) Anisocoria Code(s): H57.02 - Anisocoria Status: Acute (13) Nutrition, metabolism, and development symptoms Code(s): R63.8 - Other symptoms and signs concerning food and fluid intake Status: Acute <Saji Johsnon Benjamín - 04/24/18 22:22> (1) Osteomyelitis of ankle Code(s): M86.9 - Osteomyelitis, unspecified Status: Acute Plan: MRI showed evidence of osteomyelitis of right ankle which likely has been brewing for some time in this diabetic patient with PAD with chronic lower- extremity non-healing ulcers Culture positive for MRSA at different site (right thigh wound) Wound Cx of right ankle showed Pseudomonas as well as multidrug-resistant Proteus and group D enterococcus Blood cultures NGTD Afebrile * Podiatry following, appreciate assistance; plan to consider calcanectomy vs debridement and irrigation following revascularization * Vascular surgery consulted * s/p [employer] of popliteal stenosis on 04/24 * ID consulted, appreciate recs * Continue vancomycin * Continue Zerbaxa * Wound care consulted, appreciate recs * See plan below * Pain management with [place] scheduled, gabapentin, morphine for breakthrough pain (2) Chronic wound of extremity Status: Chronic Plan: Patient currently follows up with wound care as an outpatient Right hip wound, super observant dressing daily Skin tear lower left extremity, Santyl covered and dry dressing daily Right heel wound, apply gentamicin cream twice daily, see above plan for associated osteomyelitis Wound care consulted, appreciate recommendations * Cleanse wound to R Achilles heel with normal saline only and pat dry. Apply gentamicin mixed with Santyl 50/ 50 and apply to wound bed * Cover with ABD pad, and secure with rolled gauze and tape. Change dressing daily, until seen by podiatry. * Cleanse wound to R hip with normal saline and pat dry. Apply Optilock dressing secured with paper tape Change PRN for saturation or dislodgement * Cleanse wound to L posterior lower leg with normal saline and pat dry. Apply optifoam gentle 4x4 dressing change dressing every 3 days or PRN if saturated or dislodged. (3) MRSA (methicillin resistant staph aureus) culture positive Code(s): Z22.322 - Carrier or suspected carrier of Methicillin resistant Staphylococcus aureus Status: Acute Plan: This patient suffers from chronic nonhealing wounds likely secondary to peripheral arterial disease and DM. Patient had wound from right thigh cultured which ultimately grew MRSA. -Monitor for fevers and signs of systemic illness -Antibiotic therapy as above (4) GI bleed Code(s): K92.2 - Gastrointestinal hemorrhage, unspecified Status: Acute Plan: Initially presented with anemia and dark stools EGD demonstrates mild gastritis in the gastric fundus, gastric body, and gastric antrum. Deformity was found the duodenal bulb. Normal duodenal mucosa in the second part of the duodenum and third part duodenum. Retroflex views revealed no abnormalities. Colonoscopy negative terminal ileum.: Significant amount of stool throughout the colon interfere with vision with small lesion, diverticular disease, no sign of active bleeding at this point. Rectum small ulcer in the rectum biopsy was done not actively bleeding GI signed off, appreciated recommendations -Diabetic [id number] -Advised patient to follow-up with GI post discharge for biopsy results -Monitor labs -Monitor for bleeding and transfuse if required -Continue PPI -Bowel regimen -Supportive care -Further recommendations to follow -At this time, declining any further colonoscopies (5) PAD (peripheral artery disease) Code(s): I73.9 - Peripheral vascular disease, unspecified Status: Chronic Plan: s/p recent right LE arterectomy. s/p vascular procedure as above on 04/24 (6) Bandemia Code(s): D72.825 - Bandemia Status: Resolved Plan: Resolved, likely due to osteomyelitis. See above plan. (7) Hydronephrosis Code(s): N13.30 - Unspecified hydronephrosis Status: Acute Plan: Abdominal pelvis CT demonstrates development of moderate left hydronephrosis and hydroureter without ureteral obstruction. Also demonstrates stool ball in the rectum large amount of stool throughout the colon. Patient had a bladder scan 04/11 that revealed of a residual volume of 231 mL. Patient currently voiding well. Patient has no CVA tenderness. - Continue to monitor I's and O's. (8) HTN (hypertension) Code(s): I10 - Essential (primary) hypertension Status: Acute Plan: Continue Cardizem and amiodarone (9) Diabetes Code(s): E11.9 - Type 2 diabetes mellitus without complications Status: Acute Plan: Held home glipizide, Januvia Accu-Cheks Low-dose sliding scale Hypoglycemia protocol in place (10) Acute blood loss anemia Code(s): D62 - Acute posthemorrhagic anemia Status: Resolved Plan: In view of negative EGD/colonoscopy his present anemia is likely chronic. H/H low but stable. -Monitor H/H -Consider iron replacement (11) Malnutrition Code(s): E46 - Unspecified protein-calorie malnutrition Status: Acute Plan: This patient appears thin and possibly malnourished. Patient has significant muscle atrophy in arms and legs that are partially consistent with age and lack of activity. -Begin diet mentation with Ensure (12) Anisocoria Code(s): H57.02 - Anisocoria Status: Acute Plan: Most likely chronic in view of no other alarming ophthalmologic signs/symptoms Can follow up with Ophthalmology outpatient (13) Nutrition, metabolism, and development symptoms Code(s): R63.8 - Other symptoms and signs concerning food and fluid intake Status: Acute Plan: Fluids: per PO Diet: Diabetic supplements with protein shake Vitals every 4, monitor I's and O's DVT prophylaxis: Contraindicated due to upper GI bleed <Duke Rice - 04/24/18 16:08> - Attending Attestation The exam, history, and the medical decision-making described in the above note were completed with the assistance of the resident physician. I reviewed and agree with the findings presented. I attest that I had a [id number] encounter with the patient on the same day, and personally performed and documented my assessment and findings in the medical record. He is status post vascular procedure, now with improved DP and PT pulses. Awaiting input from podiatry regarding any further interventions for calcaneal osteomyelitis. Continuing vancomycin and Zerbaxa. <Saji Johnson - 04/24/18 22:22> <Duke Rice - Last Filed: 04/24/18 16:08> (1) Osteomyelitis of ankle Qualifiers: Osteomyelitis type: unspecified type Laterality: right Qualified Code(s): M86.9 - Osteomyelitis, unspecified (4) GI bleed Qualifiers: GI bleed type/associated pathology: unspecified gastrointestinal hemorrhage type Qualified Code(s): K92.2 - Gastrointestinal hemorrhage, unspecified (7) Hydronephrosis Qualifiers: Hydronephrosis type: unspecified Qualified Code(s): N13.30 - Unspecified hydronephrosis <Saji Johnson - Last Filed: 04/24/18 22:22> (1) Osteomyelitis of ankle Qualifiers: Osteomyelitis type: unspecified type Laterality: right Qualified Code(s): M86.9 - Osteomyelitis, unspecified (4) GI bleed Qualifiers: GI bleed type/associated pathology: unspecified gastrointestinal hemorrhage type Qualified Code(s): K92.2 - Gastrointestinal hemorrhage, unspecified (7) Hydronephrosis Qualifiers: Hydronephrosis type: unspecified Qualified Code(s): N13.30 - Unspecified hydronephrosis <Duke Rice - Last Filed: 04/24/18 16:08> (1) Osteomyelitis of ankle Qualifiers: Osteomyelitis type: unspecified type Laterality: right Qualified Code(s): M86.9 - Osteomyelitis, unspecified (4) GI bleed Qualifiers: GI bleed type/associated pathology: unspecified gastrointestinal hemorrhage type Qualified Code(s): K92.2 - Gastrointestinal hemorrhage, unspecified (7) Hydronephrosis Qualifiers: Hydronephrosis type: unspecified Qualified Code(s): N13.30 - Unspecified hydronephrosis <Saji Johnson - Last Filed: 04/24/18 22:22> (1) Osteomyelitis of ankle Qualifiers: Osteomyelitis type: unspecified type Laterality: right Qualified Code(s): M86.9 - Osteomyelitis, unspecified (4) GI bleed Qualifiers: GI bleed type/associated pathology: unspecified gastrointestinal hemorrhage type Qualified Code(s): K92.2 - Gastrointestinal hemorrhage, unspecified (7) Hydronephrosis Qualifiers: Hydronephrosis type: unspecified Qualified Code(s): N13.30 - Unspecified hydronephrosis
--- NOTE | 2018-04-24 16:01 | P.PNID ---
Subjective Remarks: Patient is an 87-year-old male, admitted to the hospital for evaluation of low hemoglobin. There was apparently episodes of black tarry stools. He had a GI workup on this admission, and he seemed to be stable from the GI standpoint. Patient apparently has had a wound on his right heel Achilles area. He had vascular workup, and underwent aortogram around April 08, and had atherectomy of the right SFA and popliteal area. Patient could not really tell me how long he has had the open wound. He has pain when he walks. There is been no fever and chills. On this admission podiatry was consulted. 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 There is a foul odor coming out from that right foot, and patient really could not notice any difference. Since admission he has not been febrile. He has significant pain whenever his RLE gets moved. There was a culture from a right thigh wound that has MRSA. I do not see any culture from the right foot. His initial WBC was around 14,000 and that is down to normal. Blood cultures are negative. Infectious disease consultation has been requested to evaluate the patient. Notes reviewed D/W RN Shelia ok Underwent revascularization today C/O pain at foot C/S from ankle with MDR PSAE, Proteus and Enterococcus WBC down to normal Creat ok Antibiotics: Vancomycin Zerbaxa Lines: PIV Past Medical History: Weakness Diabetes HLD (hyperlipidemia) MDRO (multiple drug resistant organisms) resistance Onset Date: ~04/11/18 MRSA (methicillin resistant Staphylococcus aureus) PAD (peripheral artery disease) Hip surgery Allergies/Adverse Reactions: Allergies No Known Allergies Allergy (Verified 04/08/18 12:35) Objective Vital Signs 04/23/18 16:00 04/23/18 20:00 04/24/18 00:00 Temperature 98.0 F 98.0 F 98.2 F Pulse Rate 64 62 65 Respiratory Rate 18 18 18 Blood Pressure 114/56 L 115/56 L 128/62 Pulse Oximetry 96 96 96 04/24/18 04:00 04/24/18 08:00 04/24/18 12:03 Temperature 97.8 F 97.7 F 97.5 F L Pulse Rate 62 60 70 Respiratory Rate 18 22 20 Blood Pressure 112/55 L 110/56 L 152/67 H Pulse Oximetry 95 100 04/24/18 12:15 04/24/18 12:30 04/24/18 12:33 Temperature 97.5 F L Pulse Rate 66 66 Respiratory Rate 18 18 18 Blood Pressure 148/66 H 139/64 Pulse Oximetry 99 99 Intake & Output 04/23/18 04/24/18 04/24/18 18:59 06:59 18:59 Intake Total 1070 / 1070 350 / 350 750 / 750 Output Total 1250 / 1250 600 / 600 Balance -180 / -180 -250 / -250 735 / 735 Weight 56.5 kg Intake: IV 350 / 350 350 / 350 350 / 350 Zerbaxa Inj 1,500 MG In NS Inj 100 / 100 100 / 100 100 / 100 100 ML @ 100 mls/hr IV.SIG Q8H ACE Rx#:[id number] Vancomycin Inj 1,000 MG In NS 250 / 250 250 / 250 250 / 250 Inj 250 ML @ 250 mls/hr IV.SIG Q12H ACE Rx#:[id number] Oral 720 / 720 Anesthesia Amount 400 / 400 Output: Urine 550 / 550 Estimated Blood Loss Urine Amount (Catheter) 700 / 700 600 / 600 Condom 700 / 700 600 / 600 Other: Date of Last Bowel Movement 04/17/18 04/23/18 Lab - Hematology Results 04/23/18 04/24/18 06:08 04:25 WBC 10.5 10.1 RBC 2.82 L 2.63 L Hgb 9.0 L 8.5 L Hct 26.4 L 24.8 L MCV 93.5 94.4 MCH 31.9 32.5 MCHC 34.1 34.4 RDW 16.2 16.4 Plt Count 528 H 452 H MPV 6.7 L 6.8 L Neut % (Auto) 69.9 70.1 H Lymph % (Auto) 14.9 13.1 [place] % (Auto) 9.0 H 10.4 H Eos % (Auto) 4.8 H 5.2 H Baso % (Auto) 1.4 1.2 Neut # (Auto) 7.3 7.1 Lymph # (Auto) 1.6 1.3 [place] # (Auto) 0.9 1.0 H Eos # (Auto) 0.5 H 0.5 H Baso # (Auto) 0.1 0.1 WBC Differential . . Differential Comment Auto diff final Auto diff final Lab - Chemistry Results 04/22/18 04/22/18 04/23/18 17:08 22:32 06:08 Sodium 137 Potassium 4.1 Chloride 102 Carbon Dioxide 27.9 Anion Gap 7 BUN 14 Creatinine 0.55 L Estimated GFR Greater than 89 POC Glucose 120 H 221 H Random Glucose 102 Calcium 8.2 L 04/23/18 04/23/18 04/23/18 07:30 11:29 18:00 Sodium Potassium Chloride Carbon Dioxide Anion Gap BUN Creatinine Estimated GFR POC Glucose 118 H 120 H 207 H Random Glucose Calcium 04/23/18 04/24/18 04/24/18 21:23 07:40 12:20 Sodium Potassium Chloride Carbon Dioxide Anion Gap BUN Creatinine Estimated GFR POC Glucose 165 H 153 H 120 H Random Glucose Calcium Imaging: ITS Impressions Abdomen/Pelvis CT 04/11/18 11:57 CONCLUSION: 1. There is marked destructive changes of the right proximal femur identified. The trochanteric nail hardware now extends beyond the femoral head cortex partially destroyed. There is also a patchy/permeative appearance of the shield tuberosity without obvious fracture. 2. Stool ball in the rectum and a large amount of stool throughout the colon. 3. Nonobstructing left renal calculi and left renal cyst. 4. Interval development of moderate left hydronephrosis and hydroureter without obvious obstructing stone. Head CT 04/11/18 11:59 CONCLUSION: 1. Stable appearance of the brain. . Ankle MRI 04/15/18 00:00 CONCLUSION: 1. Osteomyelitis of the posterior calcaneus with a near complete tear of the distal Achilles tendon. There is overlying cellulitis and subcutaneous edema with a small abscess adjacent to the distal Achilles tendon as measured above. There is edematous change on the plantar aspect of the foot with a tenosynovitis as above. No acute fracture identified. Mild bone edema tibia, nonspecific. Ankle X-Ray 04/15/18 00:00 CONCLUSION: Osteomyelitis of the posterior calcaneus with overlying soft tissue swelling and ulceration. No acute fracture. Physical Exam: GENERAL: awake and alert, not in respiratory distress. SKIN: Cool and dry. No generalized rash. HEAD: Atraumatic. Normocephalic. No temporal wasting, or tenderness. EYES: [place] conjunctiva. No petechia or hemorrhage. No scleral icterus. No injection or drainage. EARS, NOSE AND THROAT: Mucous membranes pink and moist. No oral lesions noted. No exudate. No oral thrush. NECK: Trachea midline. Supple and not tender, no meningeal signs CARDIOVASCULAR: Regular rate and rhythm. No murmurs, rubs or gallops heard RESPIRATORY: Clear to auscultation. Breath sounds equal bilaterally. No rales , wheezing or rhonchi ABDOMEN: Soft, non-tender, nondistended. Bowel sounds present and normoactive. No guarding. No rebound. No organomegaly. EXTREMITIES: No clubbing, cyanosis, or edema. R foot - has black eschar in posterior ankle/heel with odor, some swelling on the heel. LINE: No evidence of infection Assessment and Plan - Plan Impression Non-healing wound R heel/achilles area with abscess and osteo posterior calcaneus PVD S/P revascularization RLE GIB Leukocytosis, mild Recommendation Continue IV Vanco Continue Zerbaxa Podiatry following - surgery after vascular workup done Monitor progress D/W VANESA
[2018-04-24] MEDS: Dextrose 50% in Water 50 ML Vial IV.PUSH PRN (21:44)
[2018-04-25] MEDS: Vancomycin Inj 1,000 MG in Sodium Chlor 0.9% Inj 250 ML IV.SIG SCH ×2 (01:12→14:41)
[2018-04-25 04:35] LABS: Baso # (Auto) 0.1 th/mm3 (0.0-0.2); Baso % (Auto) 1.2 % (0.0-2.0); Eos # (Auto) 0.6 th/mm3 (0.0-0.4); Eos % (Auto) 5.8 % (0.0-4.0); Hematocrit 25.5 % (39.0-51.0); Hemoglobin 8.8 gm/dL (13.0-17.0); Lymph # (Auto) 0.7 th/mm3 (1.0-4.8); Lymph % (Auto) 6.8 % (9.0-44.0); Mean Corpuscular HGB Conc 34.5 % (32.0-36.0); Mean Corpuscular Hemoglobin 32.3 pg (27.0-34.0); Mean Corpuscular Volume 93.7 fL (80.0-100.0); Mean Platelet Volume 6.7 fL (7.0-11.0); Mono # (Auto) 0.9 th/mm3 (0.0-0.9); Mono % (Auto) 8.4 % (0.0-8.0); Neut # (Auto) 8.1 th/mm3 (1.8-7.7); Neut % (Auto) 77.8 % (16.0-70.0); Platelet Count 459 th/mm3 (150-450); Red Blood Count 2.72 mil/mm3 (4.50-5.90); Red Cell Distribution Width 16.5 % (11.6-17.2); White Blood Count 10.4 th/mm3 (4.0-11.0)
[2018-04-25 05:02] LABS: Anion Gap 9 meq/L (5-15); Blood Urea Nitrogen 15 mg/dL (7-18); Calcium 7.9 mg/dL (8.5-10.1); Carbon Dioxide 27.8 meq/L (21.0-32.0); Chloride 104 meq/L (98-107); Glomerular Filtration Rate Greater Than 89 mL/min (>89); Glucose,Random 157 mg/dL (74-106); Potassium 3.7 meq/L (3.5-5.1); Sodium 141 meq/L (136-145)
[2018-04-25] MEDS: SODIUM CHLOR 0.9% IV.SIG SCH ×2 (06:38→17:07)
[2018-04-25] MEDS: CEFTOLOZANE IV.SIG SCH ×2 (06:38→17:07)
[2018-04-25] MEDS: TAZOBACTAM IV.SIG SCH ×2 (06:38→17:07)
[2018-04-25] MEDS: Levothyroxine 125 MCG Tablet PO SCH (06:39)
[2018-04-25] MEDS: Insulin NovoLOG Aspart Correctional Sugar Inj SQ SCH ×4 (09:25→21:56)
[2018-04-25] MEDS: Amiodarone 200 MG Tablet PO SCH (09:26)
[2018-04-25] MEDS: Gabapentin 300 MG Capsule PO SCH ×3 (09:26→18:47)
[2018-04-25] MEDS: Potassium Phos/Sodium Phos 250 MG Tablet PO SCH ×4 (09:26→21:40)
[2018-04-25] MEDS: Sodium Chloride 1 GM Tablet PO SCH ×3 (09:26→18:48)
[2018-04-25] MEDS: dilTIAZem 30 MG Tablet PO SCH ×3 (09:27→18:49)
[2018-04-25] MEDS: Magnesium Oxide 400 MG Tablet PO SCH ×4 (09:27→21:40)
[2018-04-25] MEDS: Ferrous Sulfate 325 MG Tablet PO SCH ×3 (09:28→18:48)
[2018-04-25] MEDS: Ascorbic Acid 500 MG Tablet PO SCH ×2 (09:28→21:40)
[2018-04-25] MEDS: Polyethylene Glycol 3350 17 GM Packet PO SCH (09:30)
[2018-04-25] MEDS: Gentamicin 0.1% Cream 15 GM Cream TOPICAL SCH ×2 (09:31→21:43)
[2018-04-25] MEDS: Collagenase Oint 30 GM Tube TOPICAL SCH (09:31)
--- NOTE | 2018-04-25 10:12 | P.PNFP ---
Subjective Interval history: Patient seen and examined at bedside this morning. No acute events overnight. Patient reports pain is well controlled. He is tolerating p.o. intake well. Morning patient slightly confused needed reorientation regarding location but then able to answer questions appropriately. Alert and oriented x3. Patient denies any chest pain, shortness of breath, fever, chills , abdominal pain, nausea or vomiting. <Sakshi Garza D - 04/25/18 11:14> Results - Labs Result diagrams: 04/25/18 04:09 04/25/18 04:09 <Saji Johnson L - 04/25/18 19:27> Abnormal lab results 04/24/18 04/24/18 04/25/18 Range/Units 21:06 22:34 04:09 RBC 2.72 L (4.50-5.90) mil/mm3 Hgb 8.8 L (13.0-17.0) gm/dL Hct 25.5 L (39.0-51.0) % Plt Count 459 H (150-450) th/mm3 MPV 6.7 L (7.0-11.0) fL Neut % (Auto) 77.8 H (16.0-70.0) % Lymph % (Auto) 6.8 L (9.0-44.0) % [place] % (Auto) 8.4 H (0.0-8.0) % Eos % (Auto) 5.8 H (0.0-4.0) % Neut # (Auto) 8.1 H (1.8-7.7) th/mm3 Lymph # (Auto) 0.7 L (1.0-4.8) th/mm3 Eos # (Auto) 0.6 H (0.0-0.4) th/mm3 POC Glucose 65 L 161 H (68-110) mg/dl Random Glucose (74-106) mg/dL Calcium (8.5-10.1) mg/dL 04/25/18 04/25/18 04/25/18 Range/Units 04:09 07:55 12:04 RBC (4.50-5.90) mil/mm3 Hgb (13.0-17.0) gm/dL Hct (39.0-51.0) % Plt Count (150-450) th/mm3 MPV (7.0-11.0) fL Neut % (Auto) (16.0-70.0) % Lymph % (Auto) (9.0-44.0) % [place] % (Auto) (0.0-8.0) % Eos % (Auto) (0.0-4.0) % Neut # (Auto) (1.8-7.7) th/mm3 Lymph # (Auto) (1.0-4.8) th/mm3 Eos # (Auto) (0.0-0.4) th/mm3 POC Glucose 160 H 212 H (68-110) mg/dl Random Glucose 157 H (74-106) mg/dL Calcium 7.9 L (8.5-10.1) mg/dL 04/25/18 Range/Units 16:56 RBC (4.50-5.90) mil/mm3 Hgb (13.0-17.0) gm/dL Hct (39.0-51.0) % Plt Count (150-450) th/mm3 MPV (7.0-11.0) fL Neut % (Auto) (16.0-70.0) % Lymph % (Auto) (9.0-44.0) % [place] % (Auto) (0.0-8.0) % Eos % (Auto) (0.0-4.0) % Neut # (Auto) (1.8-7.7) th/mm3 Lymph # (Auto) (1.0-4.8) th/mm3 Eos # (Auto) (0.0-0.4) th/mm3 POC Glucose 179 H (68-110) mg/dl Random Glucose (74-106) mg/dL Calcium (8.5-10.1) mg/dL Short CBC 04/25/18 Range/Units 04:09 WBC 10.4 (4.0-11.0) th/mm3 Hgb 8.8 L (13.0-17.0) gm/dL Hct 25.5 L (39.0-51.0) % Plt Count 459 H (150-450) th/mm3 BMP 04/25/18 04:09 Sodium 141 Potassium 3.7 Chloride 104 Carbon Dioxide 27.8 BUN 15 Creatinine 0.70 Calcium 7.9 L <Young,Saji L - 11/09/18 19:27> Abnormal lab results 04/24/18 04/24/18 04/24/18 Range/Units 12:20 17:36 21:06 RBC (4.50-5.90) mil/mm3 Hgb (13.0-17.0) gm/dL Hct (39.0-51.0) % Plt Count (150-450) th/mm3 MPV (7.0-11.0) fL Neut % (Auto) (16.0-70.0) % Lymph % (Auto) (9.0-44.0) % [place] % (Auto) (0.0-8.0) % Eos % (Auto) (0.0-4.0) % Neut # (Auto) (1.8-7.7) th/mm3 Lymph # (Auto) (1.0-4.8) th/mm3 Eos # (Auto) (0.0-0.4) th/mm3 POC Glucose 120 H 281 H 65 L (68-110) mg/dl Random Glucose (74-106) mg/dL Calcium (8.5-10.1) mg/dL 04/24/18 04/25/18 04/25/18 Range/Units 22:34 04:09 04:09 RBC 2.72 L (4.50-5.90) mil/mm3 Hgb 8.8 L (13.0-17.0) gm/dL Hct 25.5 L (39.0-51.0) % Plt Count 459 H (150-450) th/mm3 MPV 6.7 L (7.0-11.0) fL Neut % (Auto) 77.8 H (16.0-70.0) % Lymph % (Auto) 6.8 L (9.0-44.0) % [place] % (Auto) 8.4 H (0.0-8.0) % Eos % (Auto) 5.8 H (0.0-4.0) % Neut # (Auto) 8.1 H (1.8-7.7) th/mm3 Lymph # (Auto) 0.7 L (1.0-4.8) th/mm3 Eos # (Auto) 0.6 H (0.0-0.4) th/mm3 POC Glucose 161 H (68-110) mg/dl Random Glucose 157 H (74-106) mg/dL Calcium 7.9 L (8.5-10.1) mg/dL 04/25/18 Range/Units 07:55 RBC (4.50-5.90) mil/mm3 Hgb (13.0-17.0) gm/dL Hct (39.0-51.0) % Plt Count (150-450) th/mm3 MPV (7.0-11.0) fL Neut % (Auto) (16.0-70.0) % Lymph % (Auto) (9.0-44.0) % [place] % (Auto) (0.0-8.0) % Eos % (Auto) (0.0-4.0) % Neut # (Auto) (1.8-7.7) th/mm3 Lymph # (Auto) (1.0-4.8) th/mm3 Eos # (Auto) (0.0-0.4) th/mm3 POC Glucose 160 H (68-110) mg/dl Random Glucose (74-106) mg/dL Calcium (8.5-10.1) mg/dL Short CBC 04/25/18 Range/Units 04:09 WBC 10.4 (4.0-11.0) th/mm3 Hgb 8.8 L (13.0-17.0) gm/dL Hct 25.5 L (39.0-51.0) % Plt Count 459 H (150-450) th/mm3 BMP 04/25/18 04:09 Sodium 141 Potassium 3.7 Chloride 104 Carbon Dioxide 27.8 BUN 15 Creatinine 0.70 Calcium 7.9 L <Sakshi Garza D - 04/25/18 10:12> - Imaging Impressions Femur MRI 04/25/18 00:00 CONCLUSION: 1. 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 The collection appears to communicate with the prosthetic component in the proximal femur. 2. Edematous changes are noted along the vastus lateralis and iliotibial band. <Saji Johnson - 04/25/18 19:27> Physical Exam Vital signs: Vital Signs 04/24/18 20:00 04/25/18 00:00 04/25/18 04:00 Temperature 99.9 F H 100.0 F H 98.1 F Pulse Rate 77 84 71 Respiratory Rate 18 18 18 Blood Pressure 114/56 L 119/60 118/56 L Pulse Oximetry 95 93 L 97 04/25/18 08:00 04/25/18 11:51 04/25/18 15:56 Temperature 98.1 F 98.3 F 97.6 F Pulse Rate 77 79 69 Respiratory Rate 18 Blood Pressure 117/57 L 115/56 L 119/58 L Pulse Oximetry 95 95 98 Intake & Output 04/25/18 04/25/18 04/26/18 06:59 18:59 06:59 Intake Total 350 / 350 100 / 100 Output Total 300 / 300 300 / 300 Balance 50 / 50 -200 / -200 Weight 56.8 kg Intake: IV 350 / 350 100 / 100 Zerbaxa Inj 1,500 MG In NS Inj 100 / 100 100 / 100 100 ML @ 100 mls/hr IV.SIG Q8H [facility] Rx#:[id number] Vancomycin Inj 1,000 MG In NS 250 / 250 Inj 250 ML @ 250 mls/hr IV.SIG Q12H [facility] Rx#:[id number] Output: Urine 300 / 300 Urine Amount (Catheter) 300 / 300 Condom 300 / 300 Other: # Incontinent Voids 1 Date of Last Bowel Movement 04/24/18 04/24/18 <Saji Johnson L - 04/25/18 19:27> Vital Signs 04/24/18 12:03 04/24/18 12:15 04/24/18 12:30 Temperature 97.5 F L 97.5 F L Pulse Rate 70 66 66 Respiratory Rate 20 18 18 Blood Pressure 152/67 H 148/66 H 139/64 Pulse Oximetry 100 99 99 04/24/18 12:33 04/24/18 16:00 04/24/18 20:00 Temperature 97.8 F 99.9 F H Pulse Rate 88 77 Respiratory Rate 18 18 18 Blood Pressure 144/63 H 114/56 L Pulse Oximetry 94 L 95 04/25/18 00:00 04/25/18 04:00 04/25/18 08:00 Temperature 100.0 F H 98.1 F 98.1 F Pulse Rate 84 71 77 Respiratory Rate 18 18 Blood Pressure 119/60 118/56 L 117/57 L Pulse Oximetry 93 L 97 95 Intake & Output 04/24/18 04/25/18 04/25/18 18:59 06:59 18:59 Intake Total 850 / 850 350 / 350 Output Total 615 / 615 300 / 300 Balance 235 / 235 50 / 50 Weight 56.8 kg Intake: IV 450 / 450 350 / 350 Zerbaxa Inj 1,500 MG In NS Inj 200 / 200 100 / 100 100 ML @ 100 mls/hr IV.SIG Q8H [facility] Rx#:[id number] Vancomycin Inj 1,000 MG In NS 250 / 250 250 / 250 Inj 250 ML @ 250 mls/hr IV.SIG Q12H [facility] Rx#:[id number] Anesthesia Amount 400 / 400 Output: Urine 300 / 300 Estimated Blood Loss 15 Urine Amount (Catheter) 600 / 600 Indwelling Urethral Catheter 600 / 600 Other: # Voids 1 Date of Last Bowel Movement 04/23/18 04/24/18 # Bowel Movements 3 <Sakshi Garza - 04/25/18 10:12> Narrative: GENERAL: Pleasant elderly male thin, appears malnourished. SKIN: Cool and dry. No generalized rash. Has some scattered ecchymoses in his UE. HEAD: Atraumatic. Normocephalic. No temporal wasting, or tenderness. EYES: Anisocoria and left eye, EOMI CARDIOVASCULAR: Regular rate and rhythm. No murmurs, rubs or gallops heard RESPIRATORY: Clear to auscultation. Breath sounds equal bilaterally. No rales , wheezing or rhonchi ABDOMEN: Soft, non-tender, nondistended. No guarding. No rebound. No organomegaly. EXTREMITIES: No edema. Atrophic muscular changes in both legs bilaterally. Right heel covered in bandage and in a boot. Left foot bandage dry and clean. Patient also has wound on right thigh that was bandaged with no signs of spreading erythema or infection. On exam unable to appreciate right lower extremity pulses on tactile evaluation , however charge nurse was able to appreciate a weak right lower extremity pulses on Doppler (areas was marked with a marker). Lower extremity pain is stable with current medication regimen. <Sakshi Garza - 04/25/18 11:14> - Urinary Catheter Management Condom Cath placed during this visit: no <Saji Johnson - 04/25/18 19:27> no <Sakshi Garza - 04/25/18 11:28> Reason for continuing: Not indwelling catheter <Calzado,Sakshi D - 04/25/18 10: 12> Indwelling Urethral Catheter Cath placed during this visit: no <Saji Johnson L - 04/25/18 19:27> yes, but has since been removed by the nurse <Calzado,Sakshi D - 04/25/18 11:28> Reason for continuing: Not indwelling catheter <Calzado,Sakshi D - 04/25/18 10: 12> Insertion date: 04/11/18 <Calzado,Sakshi D - 04/25/18 10:12> Insertion time: 21:08 <Calzado,Sakshi D - 04/25/18 10:12> Removal date: 04/12/18 <Calzado,Sakshi D - 04/25/18 10:12> Removal time: 11:35 <Calzado,Sakshi D - 04/25/18 10:12> Straight Cath placed during this visit: no <Saji Johnson L - 04/25/18 19:27> yes <Calzado,Sakshi D - 04/25/18 11:28> Reason for continuing: Other continuation reason <Calzado,Sakshi D - 04/25/18 10:12> Insertion date: 04/11/18 <Calzado,Sakshi D - 04/25/18 10:12> Insertion time: 21:08 <Calzado,Sakshi D - 04/25/18 10:12> Assessment and Plan - Assessment (1) Osteomyelitis of ankle Code(s): M86.9 - Osteomyelitis, unspecified Status: Acute (2) Chronic wound of extremity Status: Chronic (3) MRSA (methicillin resistant staph aureus) culture positive Code(s): Z22.322 - Carrier or suspected carrier of Methicillin resistant Staphylococcus aureus Status: Acute (4) GI bleed Code(s): K92.2 - Gastrointestinal hemorrhage, unspecified Status: Resolved (5) PAD (peripheral artery disease) Code(s): I73.9 - Peripheral vascular disease, unspecified Status: Chronic (6) Bandemia Code(s): D72.825 - Bandemia Status: Resolved (7) Hydronephrosis Code(s): N13.30 - Unspecified hydronephrosis Status: Acute (8) HTN (hypertension) Code(s): I10 - Essential (primary) hypertension Status: Acute (9) Diabetes Code(s): E11.9 - Type 2 diabetes mellitus without complications Status: Acute (10) Malnutrition Code(s): E46 - Unspecified protein-calorie malnutrition Status: Acute (11) Anisocoria Code(s): H57.02 - Anisocoria Status: Acute (12) Nutrition, metabolism, and development symptoms Code(s): R63.8 - Other symptoms and signs concerning food and fluid intake Status: Acute <Saji Johnson - 04/25/18 19:27> (1) Osteomyelitis of ankle Code(s): M86.9 - Osteomyelitis, unspecified Status: Acute Plan: MRI showed evidence of osteomyelitis of right ankle which likely has been brewing for some time in this diabetic patient with PAD with chronic lower- extremity non-healing ulcers Culture positive for MRSA at different site (right thigh wound) Wound Cx of right ankle showed Pseudomonas as well as multidrug-resistant Proteus and group D enterococcus Blood cultures NGTD Afebrile * Podiatry following, appreciate assistance; plan to consider calcanectomy vs debridement and irrigation following revascularization * Vascular surgery consulted * s/p [employer] of popliteal stenosis on 04/24 * Anterior tibial, posterior tibia and peritoneal artery occluded Lower extremity pulses appreciated Via Doppler. * ID consulted, appreciate recs * Continue vancomycin * Continue Zerbaxa * Wound care consulted, appreciate recs * See plan below * Pain management with [facility] scheduled, gabapentin, morphine for breakthrough pain (2) Chronic wound of extremity Status: Chronic Plan: Patient currently follows up with wound care as an outpatient Right hip wound, super observant dressing daily Skin tear lower left extremity, Santyl covered and dry dressing daily Right heel wound, apply gentamicin cream twice daily, see above plan for associated osteomyelitis Wound care consulted, appreciate recommendations * Cleanse wound to R Achilles heel with normal saline only and pat dry. Apply gentamicin mixed with Santyl 50/ 50 and apply to wound bed * Cover with ABD pad, and secure with rolled gauze and tape. Change dressing daily, until seen by podiatry. * Cleanse wound to R hip with normal saline and pat dry. Apply Optilock dressing secured with paper tape Change PRN for saturation or dislodgement * Cleanse wound to L posterior lower leg with normal saline and pat dry. Apply optifoam gentle 4x4 dressing change dressing every 3 days or PRN if saturated or dislodged. (3) MRSA (methicillin resistant staph aureus) culture positive Code(s): Z22.322 - Carrier or suspected carrier of Methicillin resistant Staphylococcus aureus Status: Acute Plan: This patient suffers from chronic nonhealing wounds likely secondary to peripheral arterial disease and DM. Patient had wound from right thigh cultured which ultimately grew MRSA. -Monitor for fevers and signs of systemic illness -Antibiotic therapy as above (4) GI bleed Code(s): K92.2 - Gastrointestinal hemorrhage, unspecified Status: Resolved Plan: Initially presented with anemia and dark stools EGD demonstrates mild gastritis in the gastric fundus, gastric body, and gastric antrum. Deformity was found the duodenal bulb. Normal duodenal mucosa in the second part of the duodenum and third part duodenum. Retroflex views revealed no abnormalities. Colonoscopy negative terminal ileum.: Significant amount of stool throughout the colon interfere with vision with small lesion, diverticular disease, no sign of active bleeding at this point. Rectum small ulcer in the rectum biopsy was done not actively bleeding H/H has remained stable GI signed off, appreciated recommendations -Diabetic [id number] -Advised patient to follow-up with GI post discharge for biopsy results -Monitor labs -Monitor for bleeding and transfuse if required -Continue PPI -Bowel regimen -Supportive care -Further recommendations to follow -At this time, declining any further colonoscopies (5) PAD (peripheral artery disease) Code(s): I73.9 - Peripheral vascular disease, unspecified Status: Chronic Plan: s/p recent right LE arterectomy. s/p vascular procedure as above on 04/24 (6) Bandemia Code(s): D72.825 - Bandemia Status: Resolved Plan: Resolved, likely due to osteomyelitis. See above plan. (7) Hydronephrosis Code(s): N13.30 - Unspecified hydronephrosis Status: Acute Plan: Abdominal pelvis CT demonstrates development of moderate left hydronephrosis and hydroureter without ureteral obstruction. Also demonstrates stool ball in the rectum large amount of stool throughout the colon. Patient had a bladder scan 04/11 that revealed of a residual volume of 231 mL. Patient currently voiding well. Patient has no CVA tenderness. Hammer in place Will do voiding trial - Continue to monitor I's and O's. (8) HTN (hypertension) Code(s): I10 - Essential (primary) hypertension Status: Acute Plan: Continue Cardizem and amiodarone (9) Diabetes Code(s): E11.9 - Type 2 diabetes mellitus without complications Status: Acute Plan: Held home glipizide, Januvia Accu-Cheks Low-dose sliding scale Hypoglycemia protocol in place (10) Malnutrition Code(s): E46 - Unspecified protein-calorie malnutrition Status: Acute Plan: This patient appears thin and possibly malnourished. Patient has significant muscle atrophy in arms and legs that are partially consistent with age and lack of activity. -Begin diet mentation with Ensure (11) Anisocoria Code(s): H57.02 - Anisocoria Status: Acute Plan: Most likely chronic in view of no other alarming ophthalmologic signs/symptoms Can follow up with Ophthalmology outpatient (12) Nutrition, metabolism, and development symptoms Code(s): R63.8 - Other symptoms and signs concerning food and fluid intake Status: Acute Plan: Fluids: per PO Diet: Diabetic supplements with protein shake Vitals every 4, monitor I's and O's DVT prophylaxis: Contraindicated due to upper GI bleed <Sakshi Garza - 04/25/18 11:16> - Attending Attestation The exam, history, and the medical decision-making described in the above note were completed with the assistance of the resident physician. I reviewed and agree with the findings presented. I attest that I had a [id number] encounter with the patient on the same day, and personally performed and documented my assessment and findings in the medical record. By the time of my exam this afternoon, he is alert and oriented X3, understands what's going on. He is able to tell me he is going for calcanectomy in the morning. He also has left hip wound that is now draining serous fluid on the right hip. It is a small area but it tracks down to the prosthesis on imaging. We are consulting orthopedic surgery to help with management. Wound care is also on board, as well as infectious disease and podiatry. Appreciate recommendations from all teams. <Saji Johnson - 04/25/18 19:27> <Calzado,Sakshi D - Last Filed: 04/25/18 11:16> (1) Osteomyelitis of ankle Qualifiers: Osteomyelitis type: unspecified type Laterality: right Qualified Code(s): M86.9 - Osteomyelitis, unspecified (4) GI bleed Qualifiers: GI bleed type/associated pathology: unspecified gastrointestinal hemorrhage type Qualified Code(s): K92.2 - Gastrointestinal hemorrhage, unspecified (7) Hydronephrosis Qualifiers: Hydronephrosis type: unspecified <Saji Johnson - Last Filed: 04/25/18 19:27> (1) Osteomyelitis of ankle Qualifiers: Osteomyelitis type: other chronic Laterality: right Qualified Code(s): M86.671 - Other chronic osteomyelitis, right ankle and foot (4) GI bleed Qualifiers: GI bleed type/associated pathology: unspecified gastrointestinal hemorrhage type Qualified Code(s): K92.2 - Gastrointestinal hemorrhage, unspecified (7) Hydronephrosis Qualifiers: Hydronephrosis type: unspecified Qualified Code(s): N13.30 - Unspecified hydronephrosis <Calzado,Sakshi D - Last Filed: 04/25/18 11:16> (1) Osteomyelitis of ankle Qualifiers: Osteomyelitis type: unspecified type Laterality: right Qualified Code(s): M86.9 - Osteomyelitis, unspecified (4) GI bleed Qualifiers: GI bleed type/associated pathology: unspecified gastrointestinal hemorrhage type Qualified Code(s): K92.2 - Gastrointestinal hemorrhage, unspecified (7) Hydronephrosis Qualifiers: Hydronephrosis type: unspecified <AlexSaji Benjamín - Last Filed: 04/25/18 19:27> (1) Osteomyelitis of ankle Qualifiers: Osteomyelitis type: other chronic Laterality: right Qualified Code(s): M86.671 - Other chronic osteomyelitis, right ankle and foot (4) GI bleed Qualifiers: GI bleed type/associated pathology: unspecified gastrointestinal hemorrhage type Qualified Code(s): K92.2 - Gastrointestinal hemorrhage, unspecified (7) Hydronephrosis Qualifiers: Hydronephrosis type: unspecified Qualified Code(s): N13.30 - Unspecified hydronephrosis
--- NOTE | 2018-04-25 10:52 | P.PNID ---
Subjective Remarks: Patient is an 87-year-old male, admitted to the hospital for evaluation of low hemoglobin. There was apparently episodes of black tarry stools. He had a GI workup on this admission, and he seemed to be stable from the GI standpoint. Patient apparently has had a wound on his right heel Achilles area. He had vascular workup, and underwent aortogram around April 08, and had atherectomy of the right SFA and popliteal area. Patient could not really tell me how long he has had the open wound. He has pain when he walks. There is been no fever and chills. On this admission podiatry was consulted. 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 There is a foul odor coming out from that right foot, and patient really could not notice any difference. Since admission he has not been febrile. He has significant pain whenever his RLE gets moved. There was a culture from a right thigh wound that has MRSA. I do not see any culture from the right foot. His initial WBC was around 14,000 and that is down to normal. Blood cultures are negative. Infectious disease consultation has been requested to evaluate the patient. Notes reviewed D/W RN Temps ok Underwent revascularization yesterday Per RN no doppler pulse on R foot C/O pain at foot C/S from ankle with MDR PSAE, Proteus and Enterococcus Antibiotics: Vancomycin Zerbaxa Lines: PIV Past Medical History: Weakness Diabetes HLD (hyperlipidemia) MDRO (multiple drug resistant organisms) resistance Onset Date: ~04/11/18 MRSA (methicillin resistant Staphylococcus aureus) PAD (peripheral artery disease) Hip surgery Allergies/Adverse Reactions: Allergies No Known Allergies Allergy (Verified 04/08/18 12:35) Objective Vital Signs 04/24/18 12:03 04/24/18 12:15 04/24/18 12:30 Temperature 97.5 F L 97.5 F L Pulse Rate 70 66 66 Respiratory Rate 20 18 18 Blood Pressure 152/67 H 148/66 H 139/64 Pulse Oximetry 100 99 99 04/24/18 12:33 04/24/18 16:00 04/24/18 20:00 Temperature 97.8 F 99.9 F H Pulse Rate 88 77 Respiratory Rate 18 18 Blood Pressure 144/63 H 114/56 L Pulse Oximetry 94 L 95 04/25/18 00:00 04/25/18 04:00 04/25/18 08:00 Temperature 100.0 F H 98.1 F 98.1 F Pulse Rate 84 71 77 Respiratory Rate 18 18 Blood Pressure 119/60 118/56 L 117/57 L Pulse Oximetry 93 L 97 95 Intake & Output 04/24/18 04/25/18 04/25/18 18:59 06:59 18:59 Intake Total 850 / 850 350 / 350 Output Total 615 / 615 300 / 300 300 / 300 Balance 235 / 235 50 / 50 -300 / -300 Weight 56.8 kg Intake: IV 450 / 450 350 / 350 Zerbaxa Inj 1,500 MG In NS Inj 200 / 200 100 / 100 100 ML @ 100 mls/hr IV.SIG Q8H [facility] Rx#:[id number] Vancomycin Inj 1,000 MG In NS 250 / 250 250 / 250 Inj 250 ML @ 250 mls/hr IV.SIG Q12H [facility] Rx#:[id number] Anesthesia Amount 400 / 400 Output: Urine 300 / 300 Estimated Blood Loss Urine Amount (Catheter) 600 / 600 300 / 300 Condom 300 / 300 Indwelling Urethral Catheter 600 / 600 Other: # Voids 1 # Incontinent Voids 1 Date of Last Bowel Movement 04/23/18 04/24/18 # Bowel Movements 3 Lab - Hematology Results 04/24/18 04/25/18 04:25 04:09 WBC 10.1 10.4 RBC 2.63 L 2.72 L Hgb 8.5 L 8.8 L Hct 24.8 L 25.5 L MCV 94.4 93.7 MCH 32.5 32.3 MCHC 34.4 34.5 RDW 16.4 16.5 Plt Count 452 H 459 H MPV 6.8 L 6.7 L Neut % (Auto) 70.1 H 77.8 H Lymph % (Auto) 13.1 6.8 L [place] % (Auto) 10.4 H 8.4 H Eos % (Auto) 5.2 H 5.8 H Baso % (Auto) 1.2 1.2 Neut # (Auto) 7.1 8.1 H Lymph # (Auto) 1.3 0.7 L [place] # (Auto) 1.0 H 0.9 Eos # (Auto) 0.5 H 0.6 H Baso # (Auto) 0.1 0.1 WBC Differential . . Differential Comment Auto diff final Auto diff final Lab - Chemistry Results 04/23/18 04/23/18 04/23/18 11:29 18:00 21:23 Sodium Potassium Chloride Carbon Dioxide Anion Gap BUN Creatinine Estimated GFR POC Glucose 120 H 207 H 165 H Random Glucose Calcium 04/24/18 04/24/18 04/24/18 07:40 12:20 17:36 Sodium Potassium Chloride Carbon Dioxide Anion Gap BUN Creatinine Estimated GFR POC Glucose 153 H 120 H 281 H Random Glucose Calcium 04/24/18 04/24/18 04/24/18 21:06 21:20 22:34 Sodium Potassium Chloride Carbon Dioxide Anion Gap BUN Creatinine Estimated GFR POC Glucose 65 L 73 161 H Random Glucose Calcium 04/25/18 04/25/18 04:09 07:55 Sodium 141 Potassium 3.7 Chloride 104 Carbon Dioxide 27.8 Anion Gap 9 BUN 15 Creatinine 0.70 Estimated GFR Greater than 89 POC Glucose 160 H Random Glucose 157 H Calcium 7.9 L Imaging: ITS Impressions Abdomen/Pelvis CT 04/11/18 11:57 CONCLUSION: 1. There is marked destructive changes of the right proximal femur identified. The trochanteric nail hardware now extends beyond the femoral head cortex partially destroyed. There is also a patchy/permeative appearance of the shield tuberosity without obvious fracture. 2. Stool ball in the rectum and a large amount of stool throughout the colon. 3. Nonobstructing left renal calculi and left renal cyst. 4. Interval development of moderate left hydronephrosis and hydroureter without obvious obstructing stone. Head CT 04/11/18 11:59 CONCLUSION: 1. Stable appearance of the brain. . Ankle MRI 04/15/18 00:00 CONCLUSION: 1. Osteomyelitis of the posterior calcaneus with a near complete tear of the distal Achilles tendon. There is overlying cellulitis and subcutaneous edema with a small abscess adjacent to the distal Achilles tendon as measured above. There is edematous change on the plantar aspect of the foot with a tenosynovitis as above. No acute fracture identified. Mild bone edema tibia, nonspecific. Ankle X-Ray 04/15/18 00:00 CONCLUSION: Osteomyelitis of the posterior calcaneus with overlying soft tissue swelling and ulceration. No acute fracture. Physical Exam: GENERAL: awake and alert, not in respiratory distress. SKIN: Cool and dry. No generalized rash. HEAD: Atraumatic. Normocephalic. No temporal wasting, or tenderness. EYES: [place] conjunctiva. No petechia or hemorrhage. No scleral icterus. No injection or drainage. EARS, NOSE AND THROAT: Mucous membranes pink and moist. No oral lesions noted. No exudate. No oral thrush. NECK: Trachea midline. Supple and not tender, no meningeal signs CARDIOVASCULAR: Regular rate and rhythm. No murmurs, rubs or gallops heard RESPIRATORY: Clear to auscultation. Breath sounds equal bilaterally. No rales , wheezing or rhonchi ABDOMEN: Soft, non-tender, nondistended. Bowel sounds present and normoactive. No guarding. No rebound. No organomegaly. EXTREMITIES: No clubbing, cyanosis, or edema. R foot - has black eschar in posterior ankle/heel with odor, some swelling on the heel. LINE: No evidence of infection Assessment and Plan - Plan Impression Non-healing wound R heel/achilles area with abscess and osteo posterior calcaneus PVD S/P revascularization RLE GIB Leukocytosis, mild Recommendation Continue IV Vanco Continue Zerbaxa Podiatry following - surgery after vascular workup done Monitor progress D/W RN
--- NOTE | 2018-04-25 12:13 | P.PNWCN ---
Wound Care Nurse Consult Description: Received wound management consult reevaluate R hip. Patient has already been seen previously for R hip and other wounds by inpatient wound care this admission. Communicated with: RN Renea levin and call placed to Doctor Johnson Recommendation: 1.Please order for imaging of R hip. 2.May need to Consult orthopedic surgeon. 3.Continue with optilock dressing and change PRN for strike through drainage, if saturated or dislodged. 4.Please cleanse sacral area gently with Remedy barrier wipes and pat dry. Apply Cavilon skin barrier film spray to sacral area BID and PRN and leave open to air. 5.Turn and reposition patient every 2 hours from L to R side limiting time spent on back to P.T. and meals 6.Place patient on low airloss bed/ mattress when available Wound/Pressure Injury - Patient Status Premedicated for Pain Prior to Dressing Change: No - Wound Right Hip Wound Type: Traumatic Wound Is This a Chronic Wound: No Requested from Provider a Wound Care Consult: Yes (Wound care nurse has seen patient twice this admission) Length (cm): 0.5 (~0.5cm) Width (cm): 0.5 (~0.5cm) Depth (cm): 0.1 (~<0.1cm) Wound Bed Appearance: 100% red hypergranulated tissue with copious amounts of cloudy sero-sanguinous Surrounding Tissue Appearance: Erythema Surrounding Tissue Temperature: Cool Drainage Description: cloudy sero-sanguinous drainage Drainage Amount: Copious Drainage Odor: Slight Odor Dressing Status: Changed Cleansing Solution: Saline Primary Dressing: optilock Cover Dressing: bordered gauze Wound Dressing Change Date: 04/25/18 Wound Margin Description: closed wound margins Sacrum Wound Staging: DTI Wound Assessment: Ongoing Wound Type: Pressure Injury Is This a Chronic Wound: No Requested from Provider a Wound Care Consult: Yes (Wound care was not consulted for this area) Length (cm): 8 Width (cm): 10 Depth (cm): 0 (light purple non blanchable intact skin to sacrum) Wound Bed Appearance: Wound is DTI, which is a non-blanchable light purple discolored area over the sacral areal Surrounding Tissue Temperature: Cool Drainage Amount: None Dressing Status: Open to Air Topical: Skin barrier film spray - Additional Information Patient seen on for reevaluation of R hip wound. Patient assessed with RN renea and typewriter mechanic. Patient was turned toward the L side to reveal optilock dressing with strike through drainage in place with paper tape. Removed dressing to reveal small wound to R hip, measuring ~0.5cm x ~0.5cm x ~<0.1cm. Wound is noted with copious amounts of cloudy sero-sanguinous drainage that has a slight odor.Periwound is less erythematous with today's assessment, induration is noted to periwound. Wound also noted small amount of hypergranulated tissue. Wound was cleansed with wound cleanser and patted dry. Sprayed periwound with Cavilon spray Applied new optilock dressing in place and secured with bordered gauze. While patient was positioned on L side was able to visualize non blanchable light purple discoloration to intact skin over sacral area, indicating deep tissue injury. Sacral DTI was sprayed with cavilon skin barrier film and left open to air.
[2018-04-25] MEDS ORDERED: Gadobutrol PF 7.5 MMOL/7.5 ML Vial (for RAD) IV.SIG ONE (13:59)
--- NOTE | 2018-04-25 14:47 | MR ---
EXAM DATE: 04/25/2018 2:19 PM EST AGE/SEX: 87 years / Male INDICATIONS: Right lateral hip wound. CLINICAL DATA: This is the patient's initial encounter. Patient reports that signs and symptoms have been present for 2 days and indicates a pain score of 6/10. MEDICAL/SURGICAL HISTORY: Diabetes mellitus type II. Peripheral artery disease. MRSA. . Hip s urgery. COMPARISON: No prior exams available for comparison. TECHNIQUE: Multiplanar, multisequence MRI examination was performed without and with ml Gadavist (ga dobutrol) contrast as single exam dose. FINDINGS: Bones: Short stem trochanteric nail is identified in the proximal femur. Integrity of the bone as we ll as edematous changes are difficult to assess due to metallic artifact. Muscle: Edematous changes are noted Right vastus lateralis muscle. Soft Tissues: There is a small fluid collection seen along the proximal iliotibial band. The collect ion appears to originate from the lateral disc margin adjacent to the greater trochanter. It appears to be a connection with the fixation prosthesis. The fluid collection measures 5.7 cm in length by 0.1 cm in width. It extends from the osseous surfac e to the cutaneous surface indicating a osseous cutaneous fistulous tract. Other: The neurovascular structures are intact. CONCLUSION: 1. 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 The collection appears to communicate with the prosth etic component in the proximal femur. 2. Edematous changes are noted along the vastus lateralis and iliotibial band. Electronically signed by: Shay Chavez MD 04/25/2018 2:46 PM EST
--- NOTE | 2018-04-25 18:13 | P.PNPOD ---
Subjective Interval history: Right calcaneus osteomyelitis, exposed necrotic achilles tendon right Physical Exam Vital signs: Vital Signs 04/24/18 20:00 04/25/18 00:00 04/25/18 04:00 Temperature 99.9 F H 100.0 F H 98.1 F Pulse Rate 77 84 71 Respiratory Rate 18 18 18 Blood Pressure 114/56 L 119/60 118/56 L Pulse Oximetry 95 93 L 97 04/25/18 08:00 04/25/18 11:51 04/25/18 15:56 Temperature 98.1 F 98.3 F 97.6 F Pulse Rate 77 79 69 Respiratory Rate 18 Blood Pressure 117/57 L 115/56 L 119/58 L Pulse Oximetry 95 95 98 Intake & Output 04/24/18 04/25/18 04/25/18 18:59 06:59 18:59 Intake Total 850 / 850 350 / 350 100 / 100 Output Total 615 / 615 300 / 300 300 / 300 Balance 235 / 235 50 / 50 -200 / -200 Weight 56.8 kg Intake: IV 450 / 450 350 / 350 100 / 100 Zerbaxa Inj 1,500 MG In NS Inj 200 / 200 100 / 100 100 / 100 100 ML @ 100 mls/hr IV.SIG Q8H [facility] Rx#:[id number] Vancomycin Inj 1,000 MG In NS 250 / 250 250 / 250 Inj 250 ML @ 250 mls/hr IV.SIG Q12H [facility] Rx#:[id number] Anesthesia Amount 400 / 400 Output: Urine 300 / 300 Estimated Blood Loss 15 / 15 Urine Amount (Catheter) 600 / 600 300 / 300 Condom 300 / 300 Indwelling Urethral Catheter 600 / 600 Other: # Voids 1 # Incontinent Voids 1 Date of Last Bowel Movement 04/23/18 04/24/18 04/24/18 # Bowel Movements 3 Narrative: right posterior heel with exposed achilles, necrotic, distal aspect at insertion , with necrotic bone. stable skin margins to periphery of ulceration. Painful peripheral tissue to palpation. No purulence noted. Medications and Allergies Active Medications: Active Medications Hydrocodone Bitart/Acetaminophen ([place] 10/325) 1 tab PO Q4H [facility] Last Admin: 04/25/18 14:42 Dose: 1 tab Amiodarone HCl (Cordarone) 200 mg PO DAILY [facility] Last Admin: 04/25/18 09:26 Dose: 200 mg Ascorbic Acid (Vitamin C) 500 mg PO BID [facility] Last Admin: 04/25/18 09:28 Dose: 500 mg Collagenase (Santyl Oint) 1 applicatio TOPICAL DAILY [facility] Last Admin: 04/25/18 09:31 Dose: 1 applicatio Dextrose (D50w Vial) 50 ml IV.PUSH UNSCH PRN PRN Reason: PER HYPOGLYCEMIA PROTOCOL Last Admin: 04/24/18 21:44 Dose: 50 ml Diltiazem HCl (Cardizem) 30 mg PO TID [facility] Last Admin: 04/25/18 14:43 Dose: 30 mg Ferrous Sulfate (Ferosul) 325 mg PO TID [facility] Last Admin: 04/25/18 14:43 Dose: 325 mg Gabapentin (Neurontin) 600 mg PO TID [facility] Last Admin: 04/25/18 14:42 Dose: 600 mg Gentamicin Sulfate (Gentamicin 0.1% Cream) 1 applicatio TOPICAL BID [facility] Last Admin: 04/25/18 09:31 Dose: 1 applicatio Glucagon (Glucagon Inj) 1 mg OTHER PRN PRN PRN Reason: for Hypoglycemia Protocol Sodium Chloride (Ns Inj) 500 mls @ 30 mls/hr IV.SIG .Q10H [facility] Last Admin: 04/12/18 02:14 Dose: Not Given Vancomycin HCl 1,000 mg/ (Sodium Chloride) 250 mls @ 250 mls/hr IV.SIG Q12H [facility] Last Admin: 04/25/18 14:41 Dose: 250 mls/hr Ceftolozane/Tazobactam 1,500 (mg/ Sodium Chloride) 100 mls @ 100 mls/hr IV.SIG Q8H [facility] Last Admin: 04/25/18 17:07 Dose: 100 mls/hr Sodium Chloride (Ns Inj) 500 mls @ 30 mls/hr IV.SIG .Q10H [facility] Last Admin: 04/22/18 00:54 Dose: Not Given Insulin Aspart (Novolog Insulin Correctional Sugar Inj) 0 unit SQ ACHS [facility]; Protocol Last Admin: 04/25/18 17:07 Dose: 1 unit Levothyroxine Sodium (Synthroid) 125 mcg PO DAILY@0600 [facility] Last Admin: 04/25/18 06:39 Dose: 125 mcg Magnesium Oxide (Mag-Ox) 400 mg PO QID [facility] Last Admin: 04/25/18 14:43 Dose: 400 mg Morphine Sulfate (Morphine Inj) 2 mg IV.PUSH Q3H PRN PRN Reason: BREAKTHROUGH PAIN Last Admin: 04/20/18 12:06 Dose: 2 mg Naloxone HCl (Narcan Inj) 0.4 mg IV.PUSH UNSCH PRN PRN Reason: SEE LABEL COMMENTS Pantoprazole Sodium (Protonix) 40 mg PO BID [facility] Last Admin: 04/25/18 09:28 Dose: 40 mg Pharmacy Profile Note (Vancomycin Consult Pharmacy) 1 each OTHER UNSCH PRN PRN Reason: Pharmacy to dose Polyethylene Glycol (Miralax) 17 gm PO DAILY [facility] Last Admin: 04/25/18 09:30 Dose: Not Given Potassium Phos/Sodium Phos (K-Phos Neutral) 250 mg PO QID [facility] Last Admin: 04/25/18 14:42 Dose: 250 mg Pravastatin Sodium (Pravachol) 40 mg PO DAILY [facility] Last Admin: 04/25/18 09:27 Dose: 40 mg Sodium Chloride (Ns Flush) 2 ml IV.FLUSH BID [facility] Last Admin: 04/25/18 09:30 Dose: 2 ml Sodium Chloride (Ns Flush) 2 ml IV.FLUSH PRN PRN PRN Reason: FLUSH AFTER USING IV ACCESS Last Admin: 04/20/18 12:04 Dose: 2 ml Sodium Chloride (Sodium Chloride) 1 gm PO TID [facility] Last Admin: 04/25/18 14:42 Dose: 1 gm Allergies Allergy/AdvReac Type Severity Reaction Status Date / Time No Known Allergies Allergy Verified 04/08/18 12:35 Home Medications Medication Instructions Recorded Confirmed Type Lactobacillus acidoph-L.bulgar 1 tab PO DAILY 04/08/18 04/11/18 History [Floranex] amiodarone 200 mg PO DAILY 04/08/18 04/11/18 History diltiazem HCl 30 mg PO TID 04/08/18 04/11/18 History ferrous sulfate 325 mg PO TID 04/08/18 04/11/18 History gabapentin 300 mg PO TID 04/08/18 04/11/18 History glipizide 10 mg PO BID 04/08/18 04/11/18 History hydrocodone-acetaminophen 1 tab PO Q6H 04/08/18 04/11/18 History levothyroxine 125 mcg PO DAILY 04/08/18 04/11/18 History magnesium oxide 400 mg PO QID 04/08/18 04/11/18 History meloxicam 7.5 mg PO DAILY 04/08/18 04/11/18 History pravastatin 40 mg PO DAILY 04/08/18 04/11/18 History ranitidine HCl 300 mg PO DAILY 04/08/18 04/11/18 History sitagliptin [Januvia] 100 mg PO DAILY 04/08/18 04/11/18 History sod phos di, mono-K phos mono 1 tab PO QID 04/08/18 04/11/18 History [Phospha 250 Neutral] sodium chloride 1,000 mg PO TID 04/08/18 04/11/18 History ascorbic acid (vitamin C) [Vitamin 500 mg PO BID 04/11/18 04/11/18 History C] insulin aspart U-100 [Novolog 1 - 10 units SUBCUT DIRECTED 04/11/18 04/11/18 History U-100 Insulin aspart] Results - Labs CBC & Chem 7: 04/25/18 04:09 04/25/18 04:09 Laboratory Results - last 24 hr 04/24/18 04/24/18 04/24/18 21:06 21:20 22:34 WBC RBC Hgb Hct MCV MCH MCHC RDW Plt Count MPV Neut % (Auto) Lymph % (Auto) [place] % (Auto) Eos % (Auto) Baso % (Auto) Neut # (Auto) Lymph # (Auto) [place] # (Auto) Eos # (Auto) Baso # (Auto) WBC Differential Differential Comment Sodium Potassium Chloride Carbon Dioxide Anion Gap BUN Creatinine Estimated GFR POC Glucose 65 L 73 161 H Random Glucose Calcium 04/25/18 04/25/18 04/25/18 04:09 04:09 07:55 WBC 10.4 RBC 2.72 L Hgb 8.8 L Hct 25.5 L MCV 93.7 MCH 32.3 MCHC 34.5 RDW 16.5 Plt Count 459 H MPV 6.7 L Neut % (Auto) 77.8 H Lymph % (Auto) 6.8 L [place] % (Auto) 8.4 H Eos % (Auto) 5.8 H Baso % (Auto) 1.2 Neut # (Auto) 8.1 H Lymph # (Auto) 0.7 L [place] # (Auto) 0.9 Eos # (Auto) 0.6 H Baso # (Auto) 0.1 WBC Differential . Differential Comment Auto diff final Sodium 141 Potassium 3.7 Chloride 104 Carbon Dioxide 27.8 Anion Gap 9 BUN 15 Creatinine 0.70 Estimated GFR Greater than 89 POC Glucose 160 H Random Glucose 157 H Calcium 7.9 L 04/25/18 04/25/18 12:04 16:56 WBC RBC Hgb Hct MCV MCH MCHC RDW Plt Count MPV Neut % (Auto) Lymph % (Auto) [place] % (Auto) Eos % (Auto) Baso % (Auto) Neut # (Auto) Lymph # (Auto) [place] # (Auto) Eos # (Auto) Baso # (Auto) WBC Differential Differential Comment Sodium Potassium Chloride Carbon Dioxide Anion Gap BUN Creatinine Estimated GFR POC Glucose 212 H 179 H Random Glucose Calcium - Imaging Impressions Femur MRI 04/25/18 00:00 CONCLUSION: 1. 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 The collection appears to communicate with the prosthetic component in the proximal femur. 2. Edematous changes are noted along the vastus lateralis and iliotibial band. 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 Discussed risks, benefits, potential complications with patient and that this is a limb salvage effort that may ultimately result in loss of limb, but he is adamant to try to salvage with every effort. 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
[2018-04-26] MEDS: SODIUM CHLOR 0.9% IV.SIG SCH ×3 (00:18→18:38)
[2018-04-26] MEDS: TAZOBACTAM IV.SIG SCH ×3 (00:18→18:38)
[2018-04-26] MEDS: CEFTOLOZANE IV.SIG SCH ×3 (00:18→18:38)
[2018-04-26] MEDS ORDERED: Sodium Chlor 0.9% Inj 500 ML IV.CONT ONE (01:45)
[2018-04-26] MEDS: Vancomycin Inj 1,000 MG in Sodium Chlor 0.9% Inj 250 ML IV.SIG SCH ×2 (02:07→13:19)
[2018-04-26] MEDS: Levothyroxine 125 MCG Tablet PO SCH (06:09)
[2018-04-26 06:10] LABS: Bacteria,Urine Few /hpf; Bilirubin,Urine Negative (Negative); Clarity,Urine Cloudy (Clear); Color,Urine Amber (Yellw/Straw); Glucose,Urine (UA) Negative (Negative); Hyaline Casts,Urine 1 /lpf (0-3); Leukocyte Esterase,Urine Negative (Negative); Mucus,Urine Many /lpf (Occasional); Nitrite,Urine Negative (Negative); Specific Gravity,Urine 1.033 (1.002-1.035)
[2018-04-26] MEDS: Morphine Inj 4 MG/ML Vial IV.PUSH PRN (06:15)
[2018-04-26 07:22] LABS: Baso # (Auto) 0.1 th/mm3 (0.0-0.2); Baso % (Auto) 1.2 % (0.0-2.0); Eos # (Auto) 0.8 th/mm3 (0.0-0.4); Eos % (Auto) 7.3 % (0.0-4.0); Hematocrit 23.9 % (39.0-51.0); Hemoglobin 8.2 gm/dL (13.0-17.0); Lymph # (Auto) 0.8 th/mm3 (1.0-4.8); Lymph % (Auto) 7.7 % (9.0-44.0); Mean Corpuscular HGB Conc 34.2 % (32.0-36.0); Mean Corpuscular Hemoglobin 32.3 pg (27.0-34.0); Mean Corpuscular Volume 94.4 fL (80.0-100.0); Mean Platelet Volume 6.6 fL (7.0-11.0); Mono % (Auto) 9.9 % (0.0-8.0); Neut # (Auto) 7.7 th/mm3 (1.8-7.7); Neut % (Auto) 73.9 % (16.0-70.0); Platelet Count 390 th/mm3 (150-450); Red Blood Count 2.54 mil/mm3 (4.50-5.90); Red Cell Distribution Width 16.6 % (11.6-17.2); White Blood Count 10.4 th/mm3 (4.0-11.0)
[2018-04-26 07:49] LABS: Anion Gap 11 meq/L (5-15); Blood Urea Nitrogen 19 mg/dL (7-18); Calcium 7.8 mg/dL (8.5-10.1); Carbon Dioxide 25.3 meq/L (21.0-32.0); Chloride 103 meq/L (98-107); Glomerular Filtration Rate Greater Than 89 mL/min (>89); Glucose,Random 149 mg/dL (74-106); Potassium 3.6 meq/L (3.5-5.1); Sodium 139 meq/L (136-145)
--- NOTE | 2018-04-26 07:55 | P.CONOP ---
[facility] Orthopedics Consult Note - [facility] Consult date: 04/26/18 Consult reason: joint pain Chief complaint: GI bleed, Bandemia, Hydronephrosis Narrative: 87-year-old male, admitted to the hospital for evaluation of low hemoglobin. There was apparently episodes of black tarry stools. He had a GI workup on this admission, and he seemed to be stable from the GI standpoint. Patient apparently has had a wound on his right heel Achilles area. He had vascular workup, and underwent aortogram around April 08, and had atherectomy of the right SFA and popliteal area. Patient could not really tell me how long he has had the open wound. He has pain when he walks. There is been no fever and chills. On this admission podiatry was consulted. 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 There is a foul odor coming out from that right foot, and patient really could not notice any difference. Since admission he has not been febrile. He has significant pain whenever his RLE gets moved. There was a culture from a right thigh wound that has MRSA. Patient is relatively poor historian but believes he has had a right lateral thigh wound for at least one month. He has a history of previous short TFN for intertrochanteric femur fracture by Dr. Macario in 2016. He reports significant right hip pain with movement of the leg. He states he was told there was no infection around his hip and the hardware would not need to be removed. Review of Systems Poor historian but denies fevers, chills, nausea, vomiting. Denies chest pain, abdominal pain, shortness of breath or cough. Denies back pain, weakness, numbness or tingling. Denies significant change in bowel or bladder function. Denies blurry vision or dizziness. Reports right hip and right foot pain. [facility] - History History Provided By: Patient, Medical Record - Medical History Medical History: Medical History (Last Reviewed 04/16/18 @ 14:45 by Madalyn Bonilla MD) Weakness Diabetes HLD (hyperlipidemia) MDRO (multiple drug resistant organisms) resistance Onset Date: ~04/11/18 MRSA (methicillin resistant Staphylococcus aureus) PAD (peripheral artery disease) - Surgical History Surgical History: Surgical History (Last Reviewed 04/16/18 @ 14:45 by Madalyn Bonilla MD) History of hip surgery - Family History Family History: Family History (Last Reviewed 04/16/18 @ 14:45 by Madalyn Bonilla MD) Other Diabetes - Tobacco History Smoking Status: Never smoker - Alcohol History How Often Do You Have a Drink Containing Alcohol: Never - Substance Use History Substance History: No History of Abuse - Travel History Recent Travel in the [place] Within the Last 8 Weeks: No Recent Travel Out of the Country Within the Last 8 Weeks: No - Immunization History Tetanus Immunization: Unsure Hx Influenza Vaccine This Season: Yes Medications and Allergies Active Medications: Active Medications Hydrocodone Bitart/Acetaminophen (Rea 10325) 1 tab PO Q4H [facility] Last Admin: 04/26/18 06:09 Dose: Not Given Amiodarone HCl (Cordarone) 200 mg PO DAILY [facility] Last Admin: 04/25/18 09:26 Dose: 200 mg Ascorbic Acid (Vitamin C) 500 mg PO BID [facility] Last Admin: 04/25/18 21:40 Dose: 500 mg Collagenase (Santyl Oint) 1 applicatio TOPICAL DAILY [facility] Last Admin: 04/25/18 09:31 Dose: 1 applicatio Dextrose (D50w Vial) 50 ml IV.PUSH UNSCH PRN PRN Reason: PER HYPOGLYCEMIA PROTOCOL Last Admin: 04/24/18 21:44 Dose: 50 ml Diltiazem HCl (Cardizem) 30 mg PO TID [facility] Last Admin: 04/25/18 18:49 Dose: 30 mg Ferrous Sulfate (Ferosul) 325 mg PO TID [facility] Last Admin: 04/25/18 18:48 Dose: 325 mg Gabapentin (Neurontin) 600 mg PO TID [facility] Last Admin: 04/25/18 18:47 Dose: 600 mg Gentamicin Sulfate (Gentamicin 0.1% Cream) 1 applicatio TOPICAL BID [facility] Last Admin: 04/25/18 21:43 Dose: 1 applicatio Glucagon (Glucagon Inj) 1 mg OTHER PRN PRN PRN Reason: for Hypoglycemia Protocol Sodium Chloride (Ns Inj) 500 mls @ 30 mls/hr IV.SIG .Q10H [facility] Last Admin: 04/12/18 02:14 Dose: Not Given Vancomycin HCl 1,000 mg/ (Sodium Chloride) 250 mls @ 250 mls/hr IV.SIG Q12H [facility] Last Infusion: 04/26/18 03:07 Dose: Infused Sodium Chloride (Ns Inj) 500 mls @ 30 mls/hr IV.SIG .Q10H [facility] Last Admin: 04/22/18 00:54 Dose: Not Given Ceftolozane/Tazobactam 1,500 (mg/ Sodium Chloride) 100 mls @ 100 mls/hr IV.SIG Q8H [facility] Last Infusion: 04/26/18 01:18 Dose: Infused Sodium Chloride (Ns Inj) 500 mls @ 30 mls/hr IV.CONT .[id number] ONE Stop: 04/26/18 18:24 Last Admin: 04/26/18 06:14 Dose: 30 mls/hr Insulin Aspart (Novolog Insulin Correctional Sugar Inj) 0 unit SQ ACHS [facility]; Protocol Last Admin: 04/25/18 21:56 Dose: 1 unit Levothyroxine Sodium (Synthroid) 125 mcg PO DAILY@0600 [facility] Last Admin: 04/26/18 06:09 Dose: Not Given Magnesium Oxide (Mag-Ox) 400 mg PO QID [facility] Last Admin: 04/25/18 21:40 Dose: 400 mg Morphine Sulfate (Morphine Inj) 2 mg IV.PUSH Q3H PRN PRN Reason: BREAKTHROUGH PAIN Last Admin: 04/26/18 06:15 Dose: 2 mg Naloxone HCl (Narcan Inj) 0.4 mg IV.PUSH UNSCH PRN PRN Reason: SEE LABEL COMMENTS Pantoprazole Sodium (Protonix) 40 mg PO BID [facility] Last Admin: 04/25/18 21:40 Dose: 40 mg Pharmacy Profile Note (Vancomycin Consult Pharmacy) 1 each OTHER UNSCH PRN PRN Reason: Pharmacy to dose Polyethylene Glycol (Miralax) 17 gm PO DAILY [facility] Last Admin: 04/25/18 09:30 Dose: Not Given Potassium Phos/Sodium Phos (K-Phos Neutral) 250 mg PO QID [facility] Last Admin: 04/25/18 21:40 Dose: 250 mg Pravastatin Sodium (Pravachol) 40 mg PO DAILY [facility] Last Admin: 04/25/18 09:27 Dose: 40 mg Sodium Chloride (Ns Flush) 2 ml IV.FLUSH BID [facility] Last Admin: 04/25/18 21:40 Dose: 2 ml Sodium Chloride (Ns Flush) 2 ml IV.FLUSH PRN PRN PRN Reason: FLUSH AFTER USING IV ACCESS Last Admin: 04/20/18 12:04 Dose: 2 ml Sodium Chloride (Sodium Chloride) 1 gm PO TID [facility] Last Admin: 04/25/18 18:48 Dose: 1 gm Allergies Allergy/AdvReac Type Severity Reaction Status Date / Time No Known Allergies Allergy Verified 04/08/18 12:35 Home Medications Medication Instructions Recorded Confirmed Type Lactobacillus acidoph-L.bulgar 1 tab PO DAILY 04/08/18 04/11/18 History [Floranex] amiodarone 200 mg PO DAILY 04/08/18 04/11/18 History diltiazem HCl 30 mg PO TID 04/08/18 04/11/18 History ferrous sulfate 325 mg PO TID 04/08/18 04/11/18 History gabapentin 300 mg PO TID 04/08/18 04/11/18 History glipizide 10 mg PO BID 04/08/18 04/11/18 History hydrocodone-acetaminophen 1 tab PO Q6H 04/08/18 04/11/18 History levothyroxine 125 mcg PO DAILY 04/08/18 04/11/18 History magnesium oxide 400 mg PO QID 04/08/18 04/11/18 History meloxicam 7.5 mg PO DAILY 04/08/18 04/11/18 History pravastatin 40 mg PO DAILY 04/08/18 04/11/18 History ranitidine HCl 300 mg PO DAILY 04/08/18 04/11/18 History sitagliptin [Januvia] 100 mg PO DAILY 04/08/18 04/11/18 History sod phos di, mono-K phos mono 1 tab PO QID 04/08/18 04/11/18 History [Phospha 250 Neutral] sodium chloride 1,000 mg PO TID 04/08/18 04/11/18 History ascorbic acid (vitamin C) [Vitamin 500 mg PO BID 04/11/18 04/11/18 History C] insulin aspart U-100 [Novolog 1 - 10 units SUBCUT DIRECTED 04/11/18 04/11/18 History U-100 Insulin aspart] Exam Vital signs: Vital Signs 04/25/18 08:00 04/25/18 11:51 04/25/18 15:56 Temperature 98.1 F 98.3 F 97.6 F Pulse Rate 77 79 69 Respiratory Rate 18 Blood Pressure 117/57 L 115/56 L 119/58 L Pulse Oximetry 95 95 98 04/25/18 20:00 04/26/18 00:00 04/26/18 04:00 Temperature 98.3 F 99.5 F 98.3 F Pulse Rate 70 70 67 Respiratory Rate 18 18 17 Blood Pressure 127/63 116/56 L 117/57 L Pulse Oximetry 96 97 94 L Intake & Output 04/25/18 04/26/18 04/26/18 18:59 06:59 18:59 Intake Total 350 / 350 450 / 450 Output Total 300 / 300 500 / 500 Balance 50 / 50 -50 / -50 Weight 60.4 kg Intake: IV 350 / 350 450 / 450 Zerbaxa Inj 1,500 MG In NS Inj 100 / 100 200 / 200 100 ML @ 100 mls/hr IV.SIG Q8H [facility] Rx#:[id number] Vancomycin Inj 1,000 MG In NS 250 / 250 250 / 250 Inj 250 ML @ 250 mls/hr IV.SIG Q12H [facility] Rx#:[id number] Output: Urine 500 / 500 Urine Amount (Catheter) 300 / 300 Condom 300 / 300 Other: # Incontinent Voids 1 Date of Last Bowel Movement 04/24/18 04/24/18 Narrative: Awake, alert, no acute distress Normocephalic Pupils equal No JVD Moist mucous membranes Soft nontender abdomen Regular rate Nonlabored respirations Right lower extremity: Dressing in place over proximal lateral thigh. No significant erythema or edema around the area. Patient has significant hip pain with range of motion. Dressing over right foot. Negative Homans. Bilateral upper extremities and left lower extremity: No significant tenderness palpation of visible deformities. No signs of infection. Patient demonstrates full active range of motion throughout. Sensation appears intact. Brisk cap refill. No rash Normal affect Results - Labs Result Diagrams: 04/26/18 06:59 04/25/18 04:09 Labs: Laboratory Results - last 24 hr 04/25/18 04/25/18 04/25/18 07:55 12:04 16:56 WBC RBC Hgb Hct MCV MCH MCHC RDW Plt Count MPV Neut % (Auto) Lymph % (Auto) [place] % (Auto) Eos % (Auto) Baso % (Auto) Neut # (Auto) Lymph # (Auto) [place] # (Auto) Eos # (Auto) Baso # (Auto) WBC Differential Differential Comment ESR POC Glucose 160 H 212 H 179 H Urine Color Urine Clarity Urine pH Ur Specific [place] Urine Protein Urine Glucose (UA) Urine Ketones Urine Occult Blood Urine Nitrate Urine Bilirubin Urine Urobilinogen Ur Leukocyte Esterase Urine RBC Urine WBC Urine Bacteria Hyaline Casts Urine Mucus Ur Microscopic Review 04/25/18 04/25/18 04/26/18 21:18 21:38 05:10 WBC RBC Hgb Hct MCV MCH MCHC RDW Plt Count MPV Neut % (Auto) Lymph % (Auto) [place] % (Auto) Eos % (Auto) Baso % (Auto) Neut # (Auto) Lymph # (Auto) [place] # (Auto) Eos # (Auto) Baso # (Auto) WBC Differential Differential Comment ESR Greater than 140 H POC Glucose 180 H Urine Color [place] Urine Clarity Cloudy H Urine pH 5.0 Ur Specific [place] 1.033 Urine Protein 30 H Urine Glucose (UA) Negative Urine Ketones Trace H Urine Occult Blood Negative Urine Nitrate Negative Urine Bilirubin Negative Urine Urobilinogen Less than 2 Ur Leukocyte Esterase Negative Urine RBC 4 H Urine WBC 7 H Urine Bacteria Few H Hyaline Casts 1 Urine Mucus Many H Ur Microscopic Review Not Reportable 04/26/18 06:59 WBC 10.4 RBC 2.54 L Hgb 8.2 L Hct 23.9 L MCV 94.4 MCH 32.3 MCHC 34.2 RDW 16.6 Plt Count 390 MPV 6.6 L Neut % (Auto) 73.9 H Lymph % (Auto) 7.7 L [place] % (Auto) 9.9 H Eos % (Auto) 7.3 H Baso % (Auto) 1.2 Neut # (Auto) 7.7 Lymph # (Auto) 0.8 L [place] # (Auto) 1.0 H Eos # (Auto) 0.8 H Baso # (Auto) 0.1 WBC Differential . Differential Comment Auto diff final ESR POC Glucose Urine Color Urine Clarity Urine pH Ur Specific [place] Urine Protein Urine Glucose (UA) Urine Ketones Urine Occult Blood Urine Nitrate Urine Bilirubin Urine Urobilinogen Ur Leukocyte Esterase Urine RBC Urine WBC Urine Bacteria Hyaline Casts Urine Mucus Ur Microscopic Review - Diagnostic results Imaging: Impressions Femur MRI 04/25/18 00:00 CONCLUSION: 1. 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 The collection appears to communicate with the prosthetic component in the proximal femur. 2. Edematous changes are noted along the vastus lateralis and iliotibial band. Assessment and Plan - Assessment and Plan 87yo M with draining sinus over R hip with previous TFN for intertroch fx by Dr. Macario CT and MRI reviewed by myself with the patient. There is small amount of fluid around the lateral aspect of the proximal femur which does appear to communicate with the skin. There are extensive erosive changes around the proximal femur and acetabulum. TFN nail proximal blade migrated out of femoral head with erosive changes of proximal femur and acetabulum. Given the draining wound and retained hardware, likely the patient would benefit from at least an irrigation and debridement with hardware removal. Certainly he is at risk of requiring further surgery including extensive irrigation and debridement with possible placement of antibiotic spacer. However, I would certainly consider at least starting with irrigation and debridement with hardware removal of the TFN nail and IV antibiotics. Should he have persistent osteomyelitis or concern for infection, he could then undergo more extensive irrigation and debridement with antibiotic spacer. We will plan for the patient to be n.p.o. after midnight with plan for hardware removal tomorrow.
[2018-04-26] MEDS: Gentamicin 0.1% Cream 15 GM Cream TOPICAL SCH ×2 (08:50→22:06)
--- NOTE | 2018-04-26 08:50 | P.PNFP ---
Subjective Interval history: Correction: calcanectomy, not cow call adenectomy <Saji Johnson L - 04/27/18 15:29> Patient seen and examined this morning. No acute events overnight. Patient with improved orientation this morning alert and oriented x3. Patient is slightly confused about medical plan, we reiterated to patient that he was scheduled to have a cow call adenectomy today by podiatry. Denies any chest pain, shortness of breath, fever, chills, nausea, vomiting, abdominal pain. Patient reports that his most kaufman pain is well controlled however it becomes worse with movement. <Sakshi Garza D - 04/26/18 14:43> Results - Labs Result diagrams: 04/27/18 07:01 04/27/18 07:01 <Saji Johnson Benjamín - 04/27/18 15:29> Abnormal lab results 04/26/18 04/26/18 04/27/18 Range/Units 17:03 22:04 07:01 RBC 2.44 L (4.50-5.90) mil/mm3 Hgb 7.9 L (13.0-17.0) gm/dL Hct 23.1 L (39.0-51.0) % MPV 6.7 L (7.0-11.0) fL [place] % (Auto) 9.8 H (0.0-8.0) % Eos % (Auto) 9.0 H (0.0-4.0) % Eos # (Auto) 0.8 H (0.0-0.4) th/mm3 POC Glucose 139 H 216 H (68-110) mg/dl Random Glucose (74-106) mg/dL Calcium (8.5-10.1) mg/dL 04/27/18 04/27/18 04/27/18 Range/Units 07:01 07:46 14:05 RBC (4.50-5.90) mil/mm3 Hgb (13.0-17.0) gm/dL Hct (39.0-51.0) % MPV (7.0-11.0) fL [place] % (Auto) (0.0-8.0) % Eos % (Auto) (0.0-4.0) % Eos # (Auto) (0.0-0.4) th/mm3 POC Glucose 152 H 179 H (68-110) mg/dl Random Glucose 136 H (74-106) mg/dL Calcium 7.7 L (8.5-10.1) mg/dL Short CBC 04/27/18 Range/Units 07:01 WBC 8.9 (4.0-11.0) th/mm3 Hgb 7.9 L (13.0-17.0) gm/dL Hct 23.1 L (39.0-51.0) % Plt Count 381 (150-450) th/mm3 BMP 04/27/18 07:01 Sodium 141 Potassium 3.5 Chloride 105 Carbon Dioxide 26.1 BUN 18 Creatinine 0.65 Calcium 7.7 L <Young,Saji L - 04/27/18 15:29> Abnormal lab results 04/25/18 04/25/18 04/25/18 Range/Units 12:04 16:56 21:18 RBC (4.50-5.90) mil/mm3 Hgb (13.0-17.0) gm/dL Hct (39.0-51.0) % MPV (7.0-11.0) fL Neut % (Auto) (16.0-70.0) % Lymph % (Auto) (9.0-44.0) % [place] % (Auto) (0.0-8.0) % Eos % (Auto) (0.0-4.0) % Lymph # (Auto) (1.0-4.8) th/mm3 [place] # (Auto) (0.0-0.9) th/mm3 Eos # (Auto) (0.0-0.4) th/mm3 ESR Greater than 140 H (0-20) mm/hr BUN (7-18) mg/dL POC Glucose 212 H 179 H (68-110) mg/dl Random Glucose (74-106) mg/dL Calcium (8.5-10.1) mg/dL Urine Clarity (Clear) Urine Protein (Neg-Trace) mg/dL Urine Ketones (Negative) mg/dL Urine RBC (0-3) /hpf Urine WBC (0-5) /hpf Urine Bacteria (None) /hpf Urine Mucus (Occasional) /lpf 04/25/18 04/26/18 04/26/18 Range/Units 21:38 05:10 06:59 RBC 2.54 L (4.50-5.90) mil/mm3 Hgb 8.2 L (13.0-17.0) gm/dL Hct 23.9 L (39.0-51.0) % MPV 6.6 L (7.0-11.0) fL Neut % (Auto) 73.9 H (16.0-70.0) % Lymph % (Auto) 7.7 L (9.0-44.0) % [place] % (Auto) 9.9 H (0.0-8.0) % Eos % (Auto) 7.3 H (0.0-4.0) % Lymph # (Auto) 0.8 L (1.0-4.8) th/mm3 [place] # (Auto) 1.0 H (0.0-0.9) th/mm3 Eos # (Auto) 0.8 H (0.0-0.4) th/mm3 ESR (0-20) mm/hr BUN (7-18) mg/dL POC Glucose 180 H (68-110) mg/dl Random Glucose (74-106) mg/dL Calcium (8.5-10.1) mg/dL Urine Clarity Cloudy H (Clear) Urine Protein 30 H (Neg-Trace) mg/dL Urine Ketones Trace H (Negative) mg/dL Urine RBC 4 H (0-3) /hpf Urine WBC 7 H (0-5) /hpf Urine Bacteria Few H (None) /hpf Urine Mucus Many H (Occasional) /lpf 04/26/18 04/26/18 Range/Units 06:59 08:49 RBC (4.50-5.90) mil/mm3 Hgb (13.0-17.0) gm/dL Hct (39.0-51.0) % MPV (7.0-11.0) fL Neut % (Auto) (16.0-70.0) % Lymph % (Auto) (9.0-44.0) % [place] % (Auto) (0.0-8.0) % Eos % (Auto) (0.0-4.0) % Lymph # (Auto) (1.0-4.8) th/mm3 [place] # (Auto) (0.0-0.9) th/mm3 Eos # (Auto) (0.0-0.4) th/mm3 ESR (0-20) mm/hr BUN 19 H (7-18) mg/dL POC Glucose 178 H (68-110) mg/dl Random Glucose 149 H (74-106) mg/dL Calcium 7.8 L (8.5-10.1) mg/dL Urine Clarity (Clear) Urine Protein (Neg-Trace) mg/dL Urine Ketones (Negative) mg/dL Urine RBC (0-3) /hpf Urine WBC (0-5) /hpf Urine Bacteria (None) /hpf Urine Mucus (Occasional) /lpf Short CBC 04/26/18 Range/Units 06:59 WBC 10.4 (4.0-11.0) th/mm3 Hgb 8.2 L (13.0-17.0) gm/dL Hct 23.9 L (39.0-51.0) % Plt Count 390 (150-450) th/mm3 BMP 04/26/18 06:59 Sodium 139 Potassium 3.6 Chloride 103 Carbon Dioxide 25.3 BUN 19 H Creatinine 0.73 Calcium 7.8 L Urine 04/26/18 Range/Units 05:10 Urine Color [place] (Yellw/Straw) Urine Clarity Cloudy H (Clear) Urine pH 5.0 (5.0-8.5) Ur Specific [place] 1.033 (1.002-1.035) Urine Protein 30 H (Neg-Trace) mg/dL Urine Glucose (UA) Negative (Negative) mg/dL <Sakshi Garza - 04/26/18 08:50> - Imaging Impressions Hip X-Ray 04/27/18 00:00 CONCLUSION: Hardware removal on the right. <Saji Johnson - 04/27/18 15:29> Impressions Femur MRI 04/25/18 00:00 CONCLUSION: 1. 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 The collection appears to communicate with the prosthetic component in the proximal femur. 2. Edematous changes are noted along the vastus lateralis and iliotibial band. <Sakshi Garza - 04/26/18 08:50> Physical Exam Vital signs: Vital Signs 04/26/18 16:00 04/26/18 20:00 04/27/18 00:00 Temperature 98.8 F 98 F 98.3 F Pulse Rate 67 68 60 Respiratory Rate 18 20 18 Blood Pressure 121/57 L 117/59 L 116/56 L Pulse Oximetry 95 94 L 94 L 04/27/18 03:08 04/27/18 04:00 04/27/18 08:00 Temperature 97.7 F 98.1 F Pulse Rate 58 L 63 Respiratory Rate 19 18 16 Blood Pressure 121/57 L 149/62 H Pulse Oximetry 95 97 04/27/18 13:54 04/27/18 14:15 04/27/18 14:30 Temperature 96.2 F L 97.2 F L Pulse Rate 58 L 55 L 57 L Respiratory Rate 13 20 17 Blood Pressure 145/66 H 137/65 132/65 Pulse Oximetry 100 100 100 Intake & Output 04/26/18 04/27/18 04/27/18 18:59 06:59 18:59 Intake Total 1000 / 1000 950 / 950 600 / 600 Output Total 625 / 625 300 / 300 300 / 300 Balance 375 / 375 650 / 650 300 / 300 Weight 60.6 kg Intake: IV 350 / 350 950 / 950 100 / 100 NS Inj 500 ML @ 30 mls/hr IV. 500 / 500 CONT .[id number] [facility] Rx#:[id number] Zerbaxa Inj 1,500 MG In NS Inj 100 / 100 200 / 200 100 / 100 100 ML @ 100 mls/hr IV.SIG Q8H [facility] Rx#:[id number] Vancomycin Inj 1,000 MG In NS 250 / 250 250 / 250 Inj 250 ML @ 250 mls/hr IV.SIG Q12H [facility] Rx#:[id number] Oral 650 / 650 Anesthesia Amount 500 / 500 Output: Urine 625 / 625 300 / 300 Estimated Blood Loss 150 / 150 Urine Amount (Catheter) 150 / 150 Condom 150 / 150 Other: Date of Last Bowel Movement 04/24/18 04/24/18 04/24/18 # Bowel Movements 0 <Saji Johnson L - 04/27/18 15:29> Vital Signs 04/25/18 11:51 04/25/18 15:56 04/25/18 20:00 Temperature 98.3 F 97.6 F 98.3 F Pulse Rate 79 69 70 Respiratory Rate 18 18 Blood Pressure 115/56 L 119/58 L 127/63 Pulse Oximetry 95 98 96 04/26/18 00:00 04/26/18 04:00 Temperature 99.5 F 98.3 F Pulse Rate 70 67 Respiratory Rate 18 17 Blood Pressure 116/56 L 117/57 L Pulse Oximetry 97 94 L Intake & Output 04/25/18 04/26/18 04/26/18 18:59 06:59 18:59 Intake Total 350 / 350 450 / 450 Output Total 300 / 300 500 / 500 Balance 50 / 50 -50 / -50 Weight 60.4 kg Intake: IV 350 / 350 450 / 450 Zerbaxa Inj 1,500 MG In NS Inj 100 / 100 200 / 200 100 ML @ 100 mls/hr IV.SIG Q8H [facility] Rx#:[id number] Vancomycin Inj 1,000 MG In NS 250 / 250 250 / 250 Inj 250 ML @ 250 mls/hr IV.SIG Q12H [facility] Rx#:[id number] Output: Urine 500 / 500 Urine Amount (Catheter) 300 / 300 Condom 300 / 300 Other: # Incontinent Voids 1 Date of Last Bowel Movement 04/24/18 04/24/18 <Sakshi Garza - 04/26/18 08:50> Narrative: GENERAL: Pleasant elderly male thin, appears malnourished. SKIN: Cool and dry. No generalized rash. Has some scattered ecchymoses in his UE. HEAD: Atraumatic. Normocephalic. No temporal wasting, or tenderness. EYES: Anisocoria and left eye, EOMI CARDIOVASCULAR: Regular rate and rhythm. No murmurs, rubs or gallops heard RESPIRATORY: Clear to auscultation. Breath sounds equal bilaterally. No rales , wheezing or rhonchi ABDOMEN: Soft, non-tender, nondistended. No guarding. No rebound. No organomegaly. EXTREMITIES: No edema. Atrophic muscular changes in both legs bilaterally. Right heel covered in bandage and in a boot. Left foot bandage dry and clean. Patient also has wound on right thigh that was bandaged noted to be infected by wound care yesterday upon reevaluation. Weak pulse palpated on right popliteal artery. <Sakshi Garza - 04/26/18 14:43> - Urinary Catheter Management Condom Cath placed during this visit: no <Saji Johnson - 04/27/18 15:29> no <Sakshi Garza - 04/26/18 14:50> Reason for continuing: Not indwelling catheter <Calzado,Sakshi D - 04/26/18 08: 50> Indwelling Urethral Catheter Cath placed during this visit: no <Saji Johnson - 04/27/18 15:29> yes, but has since been removed by the nurse <Calzado,Sakshi D - 04/26/18 14:50> Reason for continuing: Not indwelling catheter <Calzado,Sakshi D - 04/26/18 08: 50> Insertion date: 04/11/18 <Calzado,Sakshi D - 04/26/18 08:50> Insertion time: 21:08 <Calzado,Skashi D - 04/26/18 08:50> Removal date: 04/12/18 <Calzado,Sakshi D - 04/26/18 08:50> Removal time: 11:35 <Calzado,Sakshi D - 04/26/18 08:50> Straight Cath placed during this visit: no <Saji Johnson L - 04/27/18 15:29> yes <Calzado,Sakshi D - 04/26/18 14:50> Reason for continuing: Other continuation reason <Calzado,Sakshi D - 04/26/18 08:50> Insertion date: 04/11/18 <Calzado,Sakshi D - 04/26/18 08:50> Insertion time: 21:08 <Calzado,Sakshi D - 04/26/18 08:50> Assessment and Plan - Assessment (1) Osteomyelitis of ankle Code(s): M86.9 - Osteomyelitis, unspecified Status: Acute (2) Chronic wound of extremity Status: Chronic (3) MRSA (methicillin resistant staph aureus) culture positive Code(s): Z22.322 - Carrier or suspected carrier of Methicillin resistant Staphylococcus aureus Status: Acute (4) PAD (peripheral artery disease) Code(s): I73.9 - Peripheral vascular disease, unspecified Status: Chronic (5) Bandemia Code(s): D72.825 - Bandemia Status: Resolved (6) Hydronephrosis Code(s): N13.30 - Unspecified hydronephrosis Status: Acute (7) HTN (hypertension) Code(s): I10 - Essential (primary) hypertension Status: Acute (8) Diabetes Code(s): E11.9 - Type 2 diabetes mellitus without complications Status: Acute (9) Malnutrition Code(s): E46 - Unspecified protein-calorie malnutrition Status: Acute (10) Anisocoria Code(s): H57.02 - Anisocoria Status: Acute (11) Infection associated with internal hip prosthesis Code(s): T84.59XA - Infection and inflammatory reaction due to other internal joint prosthesis, initial encounter; Z96.649 - Presence of unspecified artificial hip joint Status: Acute (12) Nutrition, metabolism, and development symptoms Code(s): R63.8 - Other symptoms and signs concerning food and fluid intake Status: Acute <Saji Johnson - 04/27/18 15:29> (1) Osteomyelitis of ankle Code(s): M86.9 - Osteomyelitis, unspecified Status: Acute Plan: MRI showed evidence of osteomyelitis of right ankle which likely has been brewing for some time in this diabetic patient with PAD with chronic lower- extremity non-healing ulcers Culture positive for MRSA at different site (right thigh wound) Wound Cx of right ankle showed Pseudomonas as well as multidrug-resistant Proteus and group D enterococcus Blood cultures NGTD Afebrile Podiatry consulted, appreciate assistance; * plan for patient to have calcanectomy today however due to patient's inability to recall presurgery discussion when seen by podiatry this am Dr. Urena will no longer be performing calcanectomy procedure. * Recommends: betadine wet to dry daily and if foot/heel becomes acutely infected rec below-knee amputation of right lower extremity as patient is unable to care for himself or able to mentally process limb salvage procedure options. In addition the likelihood of failure was already high due to the low vascularity to the right lower limb. * Podiatry has signed off. Vascular surgery consulted * s/p FUSE ASSEMBLER of popliteal stenosis on 04/24 * Anterior tibial, posterior tibia and peritoneal artery occluded Lower extremity pulses appreciated Via Doppler. Right popliteal pulse appreciated on exam * ID consulted, appreciate recs * Continue vancomycin * Continue Zerbaxa * Wound care consulted, appreciate recs * See note from 04/25 * follow recommendations * Pain management with [place] scheduled, gabapentin, morphine for breakthrough pain (2) Chronic wound of extremity Status: Chronic Plan: Patient currently follows up with wound care as an outpatient Right hip wound, super observant dressing daily Skin tear lower left extremity, Santyl covered and dry dressing daily Right heel wound, apply gentamicin cream twice daily, see above plan for associated osteomyelitis Wound care consulted, appreciate recommendations * Cleanse wound to R Achilles heel with normal saline only and pat dry. Apply gentamicin mixed with Santyl 50/ 50 and apply to wound bed * Cover with ABD pad, and secure with rolled gauze and tape. Change dressing daily, until seen by podiatry. * Cleanse wound to R hip see updated note from 04/25 * Cleanse wound to L posterior lower leg with normal saline and pat dry. Apply optifoam gentle 4x4 dressing change dressing every 3 days or PRN if saturated or dislodged. (3) MRSA (methicillin resistant staph aureus) culture positive Code(s): Z22.322 - Carrier or suspected carrier of Methicillin resistant Staphylococcus aureus Status: Acute Plan: This patient suffers from chronic nonhealing wounds likely secondary to peripheral arterial disease and DM. Patient had wound from right thigh cultured which ultimately grew MRSA. -Monitor for fevers and signs of systemic illness -Antibiotic therapy as above (4) PAD (peripheral artery disease) Code(s): I73.9 - Peripheral vascular disease, unspecified Status: Chronic Plan: s/p recent right LE arterectomy. s/p vascular procedure as above on 04/24 (5) Bandemia Code(s): D72.825 - Bandemia Status: Resolved Plan: Resolved, likely due to osteomyelitis. See above plan. (6) Hydronephrosis Code(s): N13.30 - Unspecified hydronephrosis Status: Acute Plan: Abdominal pelvis CT demonstrates development of moderate left hydronephrosis and hydroureter without ureteral obstruction. Also demonstrates stool ball in the rectum large amount of stool throughout the colon. Patient had a bladder scan 04/11 that revealed of a residual volume of 231 mL. Patient currently voiding well. Patient has no CVA tenderness. Hammer in place UA on 04/26 : negative for infection - Continue to monitor I's and O's. (7) HTN (hypertension) Code(s): I10 - Essential (primary) hypertension Status: Acute Plan: Continue Cardizem and amiodarone (8) Diabetes Code(s): E11.9 - Type 2 diabetes mellitus without complications Status: Acute Plan: Held home glipizide, Januvia Accu-Cheks Low-dose sliding scale Hypoglycemia protocol in place (9) Malnutrition Code(s): E46 - Unspecified protein-calorie malnutrition Status: Acute Plan: This patient appears thin and possibly malnourished. Patient has significant muscle atrophy in arms and legs that are partially consistent with age and lack of activity. -Begin diet mentation with Ensure (10) Anisocoria Code(s): H57.02 - Anisocoria Status: Acute Plan: Most likely chronic in view of no other alarming ophthalmologic signs/symptoms Can follow up with Ophthalmology outpatient (11) Infection associated with internal hip prosthesis Code(s): T84.59XA - Infection and inflammatory reaction due to other internal joint prosthesis, initial encounter; Z96.649 - Presence of unspecified artificial hip joint Status: Acute Plan: Wound care noted to patient's right hip wound to be more purulent and fluctuant yesterday Right femur MRI was ordered and results showed: -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 The collection appears to communicate with the prosthetic component in the proximal femur. -. Edematous changes are noted along the vastus lateralis and iliotibial band. Patient vital signs stable no signs of leukocytosis on CBC Follow wound care recommendations for care Orthopedic consultation was submitted, appreciate recommendations Patient will benefit from irrigation and debridement with hardware removal plan to do procedure tomorrow N.p.o. after midnight (12) Nutrition, metabolism, and development symptoms Code(s): R63.8 - Other symptoms and signs concerning food and fluid intake Status: Acute Plan: Fluids: per PO Diet: Diabetic supplements with protein shake Vitals every 4, monitor I's and O's DVT prophylaxis: Contraindicated due to upper GI bleed <Sakshi Garza - 04/26/18 14:45> - Attending Attestation The exam, history, and the medical decision-making described in the above note were completed with the assistance of the resident physician. I reviewed and agree with the findings presented. Patient to go for right hip prosthesis hardware removal and debridement/irrigation tomorrow. <Saji Johnson - 04/27/18 15:29> <Calzado,Sakshi D - Last Filed: 04/26/18 14:45> (1) Osteomyelitis of ankle Qualifiers: Osteomyelitis type: other chronic Laterality: right Qualified Code(s): M86.671 - Other chronic osteomyelitis, right ankle and foot (6) Hydronephrosis Qualifiers: Hydronephrosis type: unspecified Qualified Code(s): N13.30 - Unspecified hydronephrosis <Saji Johnson - Last Filed: 04/27/18 15:29> (1) Osteomyelitis of ankle Qualifiers: Osteomyelitis type: other chronic Laterality: right Qualified Code(s): M86.671 - Other chronic osteomyelitis, right ankle and foot (6) Hydronephrosis Qualifiers: Hydronephrosis type: unspecified Qualified Code(s): N13.30 - Unspecified hydronephrosis <Calzado,Sakshi D - Last Filed: 04/26/18 14:45> (1) Osteomyelitis of ankle Qualifiers: Osteomyelitis type: other chronic Laterality: right Qualified Code(s): M86.671 - Other chronic osteomyelitis, right ankle and foot (6) Hydronephrosis Qualifiers: Hydronephrosis type: unspecified Qualified Code(s): N13.30 - Unspecified hydronephrosis <Saji Johnson - Last Filed: 04/27/18 15:29> (1) Osteomyelitis of ankle Qualifiers: Osteomyelitis type: other chronic Laterality: right Qualified Code(s): M86.671 - Other chronic osteomyelitis, right ankle and foot (6) Hydronephrosis Qualifiers: Hydronephrosis type: unspecified Qualified Code(s): N13.30 - Unspecified hydronephrosis
[2018-04-26] MEDS: Insulin NovoLOG Aspart Correctional Sugar Inj SQ SCH ×4 (08:51→22:19)
[2018-04-26] MEDS: Potassium Phos/Sodium Phos 250 MG Tablet PO SCH ×4 (08:51→22:07)
[2018-04-26] MEDS: Amiodarone 200 MG Tablet PO SCH (08:52)
[2018-04-26] MEDS: dilTIAZem 30 MG Tablet PO SCH ×3 (08:52→18:11)
[2018-04-26] MEDS: Ferrous Sulfate 325 MG Tablet PO SCH ×3 (08:52→18:11)
[2018-04-26] MEDS: Polyethylene Glycol 3350 17 GM Packet PO SCH (08:53)
[2018-04-26] MEDS: Gabapentin 300 MG Capsule PO SCH ×3 (08:53→18:11)
[2018-04-26] MEDS: Ascorbic Acid 500 MG Tablet PO SCH ×2 (08:53→22:06)
[2018-04-26] MEDS: Collagenase Oint 30 GM Tube TOPICAL SCH (08:54)
[2018-04-26] MEDS: Magnesium Oxide 400 MG Tablet PO SCH ×4 (09:04→22:06)
[2018-04-26] MEDS: Sodium Chloride 1 GM Tablet PO SCH ×3 (09:04→18:12)
--- NOTE | 2018-04-26 09:52 | P.PNPOD ---
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 achilles tendon Physical Exam Vital signs: Vital Signs 04/25/18 11:51 04/25/18 15:56 04/25/18 20:00 Temperature 98.3 F 97.6 F 98.3 F Pulse Rate 79 69 70 Respiratory Rate 18 18 Blood Pressure 115/56 L 119/58 L 127/63 Pulse Oximetry 95 98 96 04/26/18 00:00 04/26/18 04:00 04/26/18 08:00 Temperature 99.5 F 98.3 F 98.3 F Pulse Rate 70 67 67 Respiratory Rate 18 17 18 Blood Pressure 116/56 L 117/57 L 117/56 L Pulse Oximetry 97 94 L 97 Intake & Output 04/25/18 04/26/18 04/26/18 18:59 06:59 18:59 Intake Total 350 / 350 450 / 450 Output Total 300 / 300 500 / 500 Balance 50 / 50 -50 / -50 Weight 60.4 kg Intake: IV 350 / 350 450 / 450 Zerbaxa Inj 1,500 MG In NS Inj 100 / 100 200 / 200 100 ML @ 100 mls/hr IV.SIG Q8H [facility] Rx#:[id number] Vancomycin Inj 1,000 MG In NS 250 / 250 250 / 250 Inj 250 ML @ 250 mls/hr IV.SIG Q12H [facility] Rx#:[id number] Output: Urine 500 / 500 Urine Amount (Catheter) 300 / 300 Condom 300 / 300 Other: # Incontinent Voids 1 Date of Last Bowel Movement 04/24/18 04/24/18 Narrative: unchanged, stable necrotic right posterior heel and achilles tendon. Medications and Allergies Active Medications: Active Medications Hydrocodone Bitart/Acetaminophen (Thompson 10/325) 1 tab PO Q4H [facility] Last Admin: 04/26/18 06:09 Dose: Not Given Amiodarone HCl (Cordarone) 200 mg PO DAILY [facility] Last Admin: 04/26/18 08:52 Dose: 200 mg Ascorbic Acid (Vitamin C) 500 mg PO BID [facility] Last Admin: 04/26/18 08:53 Dose: 500 mg Collagenase (Santyl Oint) 1 applicatio TOPICAL DAILY [facility] Last Admin: 04/26/18 08:54 Dose: Not Given Dextrose (D50w Vial) 50 ml IV.PUSH UNSCH PRN PRN Reason: PER HYPOGLYCEMIA PROTOCOL Last Admin: 04/24/18 21:44 Dose: 50 ml Diltiazem HCl (Cardizem) 30 mg PO TID [facility] Last Admin: 04/26/18 08:52 Dose: 30 mg Ferrous Sulfate (Ferosul) 325 mg PO TID [facility] Last Admin: 04/26/18 08:52 Dose: 325 mg Gabapentin (Neurontin) 600 mg PO TID [facility] Last Admin: 04/26/18 08:53 Dose: 600 mg Gentamicin Sulfate (Gentamicin 0.1% Cream) 1 applicatio TOPICAL BID [facility] Last Admin: 04/26/18 08:50 Dose: Not Given Glucagon (Glucagon Inj) 1 mg OTHER PRN PRN PRN Reason: for Hypoglycemia Protocol Sodium Chloride (Ns Inj) 500 mls @ 30 mls/hr IV.SIG .Q10H [facility] Last Admin: 04/12/18 02:14 Dose: Not Given Vancomycin HCl 1,000 mg/ (Sodium Chloride) 250 mls @ 250 mls/hr IV.SIG Q12H [facility] Last Infusion: 04/26/18 03:07 Dose: Infused Sodium Chloride (Ns Inj) 500 mls @ 30 mls/hr IV.SIG .Q10H [facility] Last Admin: 04/22/18 00:54 Dose: Not Given Ceftolozane/Tazobactam 1,500 (mg/ Sodium Chloride) 100 mls @ 100 mls/hr IV.SIG Q8H [facility] Last Infusion: 04/26/18 01:18 Dose: Infused Sodium Chloride (Ns Inj) 500 mls @ 30 mls/hr IV.CONT .[id number] ONE Stop: 04/26/18 18:24 Last Admin: 04/26/18 06:14 Dose: 30 mls/hr Insulin Aspart (Novolog Insulin Correctional Sugar Inj) 0 unit SQ ACHS [facility]; Protocol Last Admin: 04/26/18 08:51 Dose: Not Given Levothyroxine Sodium (Synthroid) 125 mcg PO DAILY@0600 [facility] Last Admin: 04/26/18 06:09 Dose: Not Given Magnesium Oxide (Mag-Ox) 400 mg PO QID [facility] Last Admin: 04/26/18 09:04 Dose: 400 mg Morphine Sulfate (Morphine Inj) 2 mg IV.PUSH Q3H PRN PRN Reason: BREAKTHROUGH PAIN Last Admin: 04/26/18 06:15 Dose: 2 mg Naloxone HCl (Narcan Inj) 0.4 mg IV.PUSH UNSCH PRN PRN Reason: SEE LABEL COMMENTS Pantoprazole Sodium (Protonix) 40 mg PO BID [facility] Last Admin: 04/26/18 08:53 Dose: 40 mg Pharmacy Profile Note (Vancomycin Consult Pharmacy) 1 each OTHER UNSCH PRN PRN Reason: Pharmacy to dose Polyethylene Glycol (Miralax) 17 gm PO DAILY [facility] Last Admin: 04/26/18 08:53 Dose: Not Given Potassium Phos/Sodium Phos (K-Phos Neutral) 250 mg PO QID [facility] Last Admin: 04/26/18 08:51 Dose: 250 mg Pravastatin Sodium (Pravachol) 40 mg PO DAILY [facility] Last Admin: 04/26/18 09:04 Dose: 40 mg Sodium Chloride (Ns Flush) 2 ml IV.FLUSH BID [facility] Last Admin: 04/26/18 08:53 Dose: Not Given Sodium Chloride (Ns Flush) 2 ml IV.FLUSH PRN PRN PRN Reason: FLUSH AFTER USING IV ACCESS Last Admin: 04/20/18 12:04 Dose: 2 ml Sodium Chloride (Sodium Chloride) 1 gm PO TID [facility] Last Admin: 04/26/18 09:04 Dose: 1 gm Allergies Allergy/AdvReac Type Severity Reaction Status Date / Time No Known Allergies Allergy Verified 04/08/18 12:35 Home Medications Medication Instructions Recorded Confirmed Type Lactobacillus acidoph-L.bulgar 1 tab PO DAILY 04/08/18 04/11/18 History [Floranex] amiodarone 200 mg PO DAILY 04/08/18 04/11/18 History diltiazem HCl 30 mg PO TID 04/08/18 04/11/18 History ferrous sulfate 325 mg PO TID 04/08/18 04/11/18 History gabapentin 300 mg PO TID 04/08/18 04/11/18 History glipizide 10 mg PO BID 04/08/18 04/11/18 History hydrocodone-acetaminophen 1 tab PO Q6H 04/08/18 04/11/18 History levothyroxine 125 mcg PO DAILY 04/08/18 04/11/18 History magnesium oxide 400 mg PO QID 04/08/18 04/11/18 History meloxicam 7.5 mg PO DAILY 04/08/18 04/11/18 History pravastatin 40 mg PO DAILY 04/08/18 04/11/18 History ranitidine HCl 300 mg PO DAILY 04/08/18 04/11/18 History sitagliptin [Januvia] 100 mg PO DAILY 04/08/18 04/11/18 History sod phos di, mono-K phos mono 1 tab PO QID 04/08/18 04/11/18 History [Phospha 250 Neutral] sodium chloride 1,000 mg PO TID 04/08/18 04/11/18 History ascorbic acid (vitamin C) [Vitamin 500 mg PO BID 04/11/18 04/11/18 History C] insulin aspart U-100 [Novolog 1 - 10 units SUBCUT DIRECTED 04/11/18 04/11/18 History U-100 Insulin aspart] Results - Labs CBC & Chem 7: 04/26/18 06:59 04/26/18 06:59 Laboratory Results - last 24 hr 04/25/18 04/25/18 04/25/18 12:04 16:56 21:18 WBC RBC Hgb Hct MCV MCH MCHC RDW Plt Count MPV Neut % (Auto) Lymph % (Auto) Ford % (Auto) Eos % (Auto) Baso % (Auto) Neut # (Auto) Lymph # (Auto) Ford # (Auto) Eos # (Auto) Baso # (Auto) WBC Differential Differential Comment ESR Greater than 140 H Sodium Potassium Chloride Carbon Dioxide Anion Gap BUN Creatinine Estimated GFR POC Glucose 212 H 179 H Random Glucose Calcium Urine Color Urine Clarity Urine pH Ur Specific Ellis Urine Protein Urine Glucose (UA) Urine Ketones Urine Occult Blood Urine Nitrate Urine Bilirubin Urine Urobilinogen Ur Leukocyte Esterase Urine RBC Urine WBC Urine Bacteria Hyaline Casts Urine Mucus Ur Microscopic Review 04/25/18 04/26/18 04/26/18 21:38 05:10 06:59 WBC 10.4 RBC 2.54 L Hgb 8.2 L Hct 23.9 L MCV 94.4 MCH 32.3 MCHC 34.2 RDW 16.6 Plt Count 390 MPV 6.6 L Neut % (Auto) 73.9 H Lymph % (Auto) 7.7 L Ford % (Auto) 9.9 H Eos % (Auto) 7.3 H Baso % (Auto) 1.2 Neut # (Auto) 7.7 Lymph # (Auto) 0.8 L Ford # (Auto) 1.0 H Eos # (Auto) 0.8 H Baso # (Auto) 0.1 WBC Differential . Differential Comment Auto diff final ESR Sodium Potassium Chloride Carbon Dioxide Anion Gap BUN Creatinine Estimated GFR POC Glucose 180 H Random Glucose Calcium Urine Color Chely Urine Clarity Cloudy H Urine pH 5.0 Ur Specific Ellis 1.033 Urine Protein 30 H Urine Glucose (UA) Negative Urine Ketones Trace H Urine Occult Blood Negative Urine Nitrate Negative Urine Bilirubin Negative Urine Urobilinogen Less than 2 Ur Leukocyte Esterase Negative Urine RBC 4 H Urine WBC 7 H Urine Bacteria Few H Hyaline Casts 1 Urine Mucus Many H Ur Microscopic Review Not Reportable 04/26/18 04/26/18 06:59 08:49 WBC RBC Hgb Hct MCV MCH MCHC RDW Plt Count MPV Neut % (Auto) Lymph % (Auto) Ford % (Auto) Eos % (Auto) Baso % (Auto) Neut # (Auto) Lymph # (Auto) Ford # (Auto) Eos # (Auto) Baso # (Auto) WBC Differential Differential Comment ESR Sodium 139 Potassium 3.6 Chloride 103 Carbon Dioxide 25.3 Anion Gap 11 BUN 19 H Creatinine 0.73 Estimated GFR Greater than 89 POC Glucose 178 H Random Glucose 149 H Calcium 7.8 L Urine Color Urine Clarity Urine pH Ur Specific Ellis Urine Protein Urine Glucose (UA) Urine Ketones Urine Occult Blood Urine Nitrate Urine Bilirubin Urine Urobilinogen Ur Leukocyte Esterase Urine RBC Urine WBC Urine Bacteria Hyaline Casts Urine Mucus Ur Microscopic Review - Imaging Impressions Femur MRI 04/25/18 00:00 CONCLUSION: 1. 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 The collection appears to communicate with the prosthetic component in the proximal femur. 2. Edematous changes are noted along the vastus lateralis and iliotibial band. 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 Patient states he thought he was having eye surgery and was not A&O x 3. His foot is currently stable. Wrote orders for betadine wet to dry daily. If foot/heel becomes unstable/acutely infected, I recommend below-knee amputation, as patient is not capable to either care for or mentally process limb salvage procedure options, as well as the likelihood of failure is already high due to decreased vascularity to the area. Continue betadine wet to dry daily as ordered. Podiatry signing off. 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
[2018-04-27] MEDS: TAZOBACTAM IV.SIG SCH ×3 (02:39→17:09)
[2018-04-27] MEDS: CEFTOLOZANE IV.SIG SCH ×3 (02:39→17:09)
[2018-04-27] MEDS: SODIUM CHLOR 0.9% IV.SIG SCH ×3 (02:39→17:09)
[2018-04-27] MEDS: Vancomycin Inj 1,000 MG in Sodium Chlor 0.9% Inj 250 ML IV.SIG SCH ×2 (03:53→14:55)
[2018-04-27] MEDS: Levothyroxine 125 MCG Tablet PO SCH (06:42)
--- NOTE | 2018-04-27 07:10 | P.PNOP ---
Subjective Interval history: s/p draining sinus right hip doign well. denies pain. seems to understand situation Physical Exam Vital signs: Vital Signs 04/26/18 08:00 04/26/18 12:00 04/26/18 16:00 Temperature 98.3 F 99.4 F 98.8 F Pulse Rate 67 70 67 Respiratory Rate 18 17 18 Blood Pressure 117/56 L 114/52 L 121/57 L Pulse Oximetry 97 94 L 95 04/26/18 20:00 04/27/18 00:00 04/27/18 03:08 Temperature 98 F 98.3 F Pulse Rate 68 60 Respiratory Rate 20 18 19 Blood Pressure 117/59 L 116/56 L Pulse Oximetry 94 L 94 L 04/27/18 04:00 Temperature 97.7 F Pulse Rate 58 L Respiratory Rate 18 Blood Pressure 121/57 L Pulse Oximetry 95 Intake & Output 04/26/18 04/27/18 04/27/18 18:59 06:59 18:59 Intake Total 1000 / 1000 950 / 950 Output Total 625 / 625 300 / 300 Balance 375 / 375 650 / 650 Weight 60.6 kg Intake: IV 350 / 350 950 / 950 NS Inj 500 ML @ 30 mls/hr IV. 500 / [id number] [facility] Rx#:[id number] Zerbaxa Inj 1,500 MG In NS Inj 100 / 100 200 / 200 100 ML @ 100 mls/hr IV.SIG Q8H [facility] Rx#:[id number] Vancomycin Inj 1,000 MG In NS 250 / 250 250 / 250 Inj 250 ML @ 250 mls/hr IV.SIG Q12H [facility] Rx#:[id number] Oral 650 / 650 Output: Urine 625 / 625 300 / 300 Other: Date of Last Bowel Movement 04/24/18 04/24/18 # Bowel Movements 0 Narrative: RLE: small draining sinus on lateral hip. serous drainage. no erythema. nvi - Urinary Catheter Management Straight Cath placed during this visit: yes Reason for continuing: Other continuation reason Insertion date: 04/11/18 Insertion time: 21:08 Indwelling Urethral Catheter Cath placed during this visit: yes, but has since been removed by the nurse Reason for continuing: Not indwelling catheter Insertion date: 04/11/18 Insertion time: 21:08 Removal date: 04/12/18 Removal time: 11:35 Condom Cath placed during this visit: no Reason for continuing: Not indwelling catheter Results - Labs CBC & Chem 7: 04/26/18 06:59 04/26/18 06:59 Laboratory Results - last 24 hr 04/26/18 04/26/18 04/26/18 06:59 06:59 08:49 WBC 10.4 RBC 2.54 L Hgb 8.2 L Hct 23.9 L MCV 94.4 MCH 32.3 MCHC 34.2 RDW 16.6 Plt Count 390 MPV 6.6 L Neut % (Auto) 73.9 H Lymph % (Auto) 7.7 L [place] % (Auto) 9.9 H Eos % (Auto) 7.3 H Baso % (Auto) 1.2 Neut # (Auto) 7.7 Lymph # (Auto) 0.8 L [place]linger # (Auto) 1.0 H Eos # (Auto) 0.8 H Baso # (Auto) 0.1 WBC Differential . Differential Comment Auto diff final Sodium 139 Potassium 3.6 Chloride 103 Carbon Dioxide 25.3 Anion Gap 11 BUN 19 H Creatinine 0.73 Estimated GFR Greater than 89 POC Glucose 178 H Random Glucose 149 H Calcium 7.8 L 04/26/18 04/26/18 04/26/18 12:52 17:03 22:04 WBC RBC Hgb Hct MCV MCH MCHC RDW Plt Count MPV Neut % (Auto) Lymph % (Auto) [place] % (Auto) Eos % (Auto) Baso % (Auto) Neut # (Auto) Lymph # (Auto) [place] # (Auto) Eos # (Auto) Baso # (Auto) WBC Differential Differential Comment Sodium Potassium Chloride Carbon Dioxide Anion Gap BUN Creatinine Estimated GFR POC Glucose 208 H 139 H 216 H Random Glucose Calcium Assessment and Plan - Assessment and Plan 1) 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 need to be signed by patient -plan for OR today with Dr Sierra for removal of HW and Abx bead placement
[2018-04-27 08:13] LABS: Baso # (Auto) 0.1 th/mm3 (0.0-0.2); Baso % (Auto) 1.3 % (0.0-2.0); Eos # (Auto) 0.8 th/mm3 (0.0-0.4); Hematocrit 23.1 % (39.0-51.0); Hemoglobin 7.9 gm/dL (13.0-17.0); Lymph % (Auto) 11.4 % (9.0-44.0); Mean Corpuscular HGB Conc 34.1 % (32.0-36.0); Mean Corpuscular Hemoglobin 32.3 pg (27.0-34.0); Mean Corpuscular Volume 94.6 fL (80.0-100.0); Mean Platelet Volume 6.7 fL (7.0-11.0); Mono # (Auto) 0.9 th/mm3 (0.0-0.9); Mono % (Auto) 9.8 % (0.0-8.0); Neut # (Auto) 6.1 th/mm3 (1.8-7.7); Neut % (Auto) 68.5 % (16.0-70.0); Platelet Count 381 th/mm3 (150-450); Red Blood Count 2.44 mil/mm3 (4.50-5.90); Red Cell Distribution Width 16.6 % (11.6-17.2); White Blood Count 8.9 th/mm3 (4.0-11.0)
[2018-04-27 08:37] LABS: Anion Gap 10 meq/L (5-15); Blood Urea Nitrogen 18 mg/dL (7-18); Calcium 7.7 mg/dL (8.5-10.1); Carbon Dioxide 26.1 meq/L (21.0-32.0); Chloride 105 meq/L (98-107); Glomerular Filtration Rate Greater Than 89 mL/min (>89); Glucose,Random 136 mg/dL (74-106); Potassium 3.5 meq/L (3.5-5.1); Sodium 141 meq/L (136-145)
[2018-04-27] MEDS: Magnesium Oxide 400 MG Tablet PO SCH ×4 (09:09→22:22)
[2018-04-27] MEDS: Gabapentin 300 MG Capsule PO SCH ×3 (09:09→17:09)
[2018-04-27] MEDS: Sodium Chloride 1 GM Tablet PO SCH ×3 (09:09→17:11)
[2018-04-27] MEDS: Ferrous Sulfate 325 MG Tablet PO SCH ×3 (09:09→17:11)
[2018-04-27] MEDS: Potassium Phos/Sodium Phos 250 MG Tablet PO SCH ×4 (09:09→22:22)
[2018-04-27] MEDS: dilTIAZem 30 MG Tablet PO SCH ×3 (09:10→17:10)
[2018-04-27] MEDS: Amiodarone 200 MG Tablet PO SCH (09:10)
[2018-04-27] MEDS: Ascorbic Acid 500 MG Tablet PO SCH ×2 (09:10→22:23)
[2018-04-27] MEDS: Insulin NovoLOG Aspart Correctional Sugar Inj SQ SCH ×4 (09:11→22:23)
[2018-04-27] MEDS: Polyethylene Glycol 3350 17 GM Packet PO SCH (09:15)
[2018-04-27] MEDS: Collagenase Oint 30 GM Tube TOPICAL SCH (09:17)
[2018-04-27] MEDS: Gentamicin 0.1% Cream 15 GM Cream TOPICAL SCH ×2 (09:17→22:22)
--- NOTE | 2018-04-27 09:27 | P.PNFP ---
Subjective Interval history: Patient seen and met at bedside. No acute events overnight. Patient is alert and oriented x2 this morning (to self and location). Patient is aware that he will be having orthopedic procedure today for right hip infection with removal of hardware. Reports pain is stable, worse with moving. Denies chest pain, shortness of breath, fever, chills, nausea, vomiting or abdominal pain. Patient encouraged to use bedside incentive spirometry. <Sakshi Garza - 04/27/18 09:47> Results - Labs Result diagrams: 04/27/18 07:01 04/27/18 07:01 <Saji Johnson - 04/27/18 16:08> Abnormal lab results 04/26/18 04/26/18 04/27/18 Range/Units 17:03 22:04 07:01 RBC 2.44 L (4.50-5.90) mil/mm3 Hgb 7.9 L (13.0-17.0) gm/dL Hct 23.1 L (39.0-51.0) % MPV 6.7 L (7.0-11.0) fL [place] % (Auto) 9.8 H (0.0-8.0) % Eos % (Auto) 9.0 H (0.0-4.0) % Eos # (Auto) 0.8 H (0.0-0.4) th/mm3 POC Glucose 139 H 216 H (68-110) mg/dl Random Glucose (74-106) mg/dL Calcium (8.5-10.1) mg/dL 04/27/18 04/27/18 04/27/18 Range/Units 07:01 07:46 14:05 RBC (4.50-5.90) mil/mm3 Hgb (13.0-17.0) gm/dL Hct (39.0-51.0) % MPV (7.0-11.0) fL [place] % (Auto) (0.0-8.0) % Eos % (Auto) (0.0-4.0) % Eos # (Auto) (0.0-0.4) th/mm3 POC Glucose 152 H 179 H (68-110) mg/dl Random Glucose 136 H (74-106) mg/dL Calcium 7.7 L (8.5-10.1) mg/dL Short CBC 04/27/18 Range/Units 07:01 WBC 8.9 (4.0-11.0) th/mm3 Hgb 7.9 L (13.0-17.0) gm/dL Hct 23.1 L (39.0-51.0) % Plt Count 381 (150-450) th/mm3 BMP 04/27/18 07:01 Sodium 141 Potassium 3.5 Chloride 105 Carbon Dioxide 26.1 BUN 18 Creatinine 0.65 Calcium 7.7 L <Young,Saji L - 04/27/18 16:08> Abnormal lab results 04/26/18 04/26/18 04/26/18 Range/Units 12:52 17:03 22:04 RBC (4.50-5.90) mil/mm3 Hgb (13.0-17.0) gm/dL Hct (39.0-51.0) % MPV (7.0-11.0) fL [place] % (Auto) (0.0-8.0) % Eos % (Auto) (0.0-4.0) % Eos # (Auto) (0.0-0.4) th/mm3 POC Glucose 208 H 139 H 216 H (68-110) mg/dl Random Glucose (74-106) mg/dL Calcium (8.5-10.1) mg/dL 04/27/18 04/27/18 04/27/18 Range/Units 07:01 07:01 07:46 RBC 2.44 L (4.50-5.90) mil/mm3 Hgb 7.9 L (13.0-17.0) gm/dL Hct 23.1 L (39.0-51.0) % MPV 6.7 L (7.0-11.0) fL [place] % (Auto) 9.8 H (0.0-8.0) % Eos % (Auto) 9.0 H (0.0-4.0) % Eos # (Auto) 0.8 H (0.0-0.4) th/mm3 POC Glucose 152 H (68-110) mg/dl Random Glucose 136 H (74-106) mg/dL Calcium 7.7 L (8.5-10.1) mg/dL Short CBC 04/27/18 Range/Units 07:01 WBC 8.9 (4.0-11.0) th/mm3 Hgb 7.9 L (13.0-17.0) gm/dL Hct 23.1 L (39.0-51.0) % Plt Count 381 (150-450) th/mm3 [facility] 04/27/18 07:01 Sodium 141 Potassium 3.5 Chloride 105 Carbon Dioxide 26.1 BUN 18 Creatinine 0.65 Calcium 7.7 L <Sakshi Garza D - 04/27/18 09:27> - Imaging Impressions Hip X-Ray 04/27/18 00:00 CONCLUSION: Hardware removal on the right. <Saji Johnson L - 04/27/18 16:08> Physical Exam Vital signs: Vital Signs 04/26/18 20:00 04/27/18 00:00 04/27/18 03:08 Temperature 98 F 98.3 F Pulse Rate 68 60 Respiratory Rate 20 18 19 Blood Pressure 117/59 L 116/56 L Pulse Oximetry 94 L 94 L 04/27/18 04:00 04/27/18 08:00 04/27/18 13:54 Temperature 97.7 F 98.1 F 96.2 F L Pulse Rate 58 L 63 58 L Respiratory Rate 18 16 13 Blood Pressure 121/57 L 149/62 H 145/66 H Pulse Oximetry 95 97 100 04/27/18 14:15 04/27/18 14:30 Temperature 97.2 F L Pulse Rate 55 L 57 L Respiratory Rate 20 17 Blood Pressure 137/65 132/65 Pulse Oximetry 100 100 Intake & Output 04/26/18 04/27/18 04/27/18 18:59 06:59 18:59 Intake Total 1000 / 1000 950 / 950 600 / 600 Output Total 625 / 625 300 / 300 300 / 300 Balance 375 / 375 650 / 650 300 / 300 Weight 60.6 kg Intake: IV 350 / 350 950 / 950 100 / 100 NS Inj 500 ML @ 30 mls/hr IV. 500 / 500 CONT .[id number] ONE Rx#:[id number] Zerbaxa Inj 1,500 MG In NS Inj 100 / 100 200 / 200 100 / 100 100 ML @ 100 mls/hr IV.SIG Q8H [facility] Rx#:[id number] Vancomycin Inj 1,000 MG In NS 250 / 250 250 / 250 Inj 250 ML @ 250 mls/hr IV.SIG Q12H [facility] Rx#:[id number] Oral 650 / 650 Anesthesia Amount 500 / 500 Output: Urine 625 / 625 300 / 300 Estimated Blood Loss 150 / 150 Urine Amount (Catheter) 150 / 150 Condom 150 / 150 Other: Date of Last Bowel Movement 04/24/18 04/24/18 04/24/18 # Bowel Movements 0 <Saji Johnson L - 04/27/18 16:08> Vital Signs 04/26/18 12:00 04/26/18 16:00 04/26/18 20:00 Temperature 99.4 F 98.8 F 98 F Pulse Rate 70 67 68 Respiratory Rate 17 18 20 Blood Pressure 114/52 L 121/57 L 117/59 L Pulse Oximetry 94 L 95 94 L 04/27/18 00:00 04/27/18 03:08 04/27/18 04:00 Temperature 98.3 F 97.7 F Pulse Rate 60 58 L Respiratory Rate 18 19 18 Blood Pressure 116/56 L 121/57 L Pulse Oximetry 94 L 95 04/27/18 08:00 Temperature 98.1 F Pulse Rate 63 Respiratory Rate 16 Blood Pressure 149/62 H Pulse Oximetry 97 Intake & Output 04/26/18 04/27/18 04/27/18 18:59 06:59 18:59 Intake Total 1000 / 1000 950 / 950 Output Total 625 / 625 300 / 300 Balance 375 / 375 650 / 650 Weight 60.6 kg Intake: IV 350 / 350 950 / 950 NS Inj 500 ML @ 30 mls/hr IV. 500 / 500 CONT .[id number] ONE Rx#:[id number] Zerbaxa Inj 1,500 MG In NS Inj 100 / 100 200 / 200 100 ML @ 100 mls/hr IV.SIG Q8H [facility] Rx#:[id number] Vancomycin Inj 1,000 MG In NS 250 / 250 250 / 250 Inj 250 ML @ 250 mls/hr IV.SIG Q12H [facility] Rx#:[id number] Oral 650 / 650 Output: Urine 625 / 625 300 / 300 Other: Date of Last Bowel Movement 04/24/18 04/24/18 # Bowel Movements 0 <Sakshi Garza D - 04/27/18 09:27> Narrative: GENERAL: Pleasant elderly male thin, appears malnourished. SKIN: Cool and dry. No generalized rash. Has some scattered ecchymoses in his UE. HEAD: Atraumatic. Normocephalic. No temporal wasting, or tenderness. EYES: Anisocoria and left eye, EOMI CARDIOVASCULAR: Regular rate and rhythm. No murmurs, rubs or gallops heard RESPIRATORY: Clear to auscultation. Breath sounds equal bilaterally. No rales , wheezing or rhonchi ABDOMEN: Soft, non-tender, nondistended. No guarding. No rebound. No organomegaly. EXTREMITIES: No edema. Atrophic muscular changes in both legs bilaterally. Right heel covered in bandage and in a boot. Left foot bandage dry and clean. Patient also has wound on right thigh that is bandaged noted to be infected by wound care on 04/25 upon reevaluation. Dressing in place, clean and dry. Weak pulse palpated on right popliteal artery. <Sakshi Garza - 04/27/18 09:47> - Urinary Catheter Management Condom Cath placed during this visit: no <Saji Johnson 04/27/18 16:08> no <Sakshi Garza 04/27/18 09:47> Reason for continuing: Not indwelling catheter <Sakshi Garza D - 04/27/18 09: 27> Indwelling Urethral Catheter Cath placed during this visit: no <Saji Johnson 04/27/18 16:08> yes, but has since been removed by the nurse <Sakshi Garza 04/27/18 09:47> Reason for continuing: Not indwelling catheter <Sakshi Garza D - 04/27/18 09: 27> Insertion date: 04/11/18 <Sakshi Garza D - 04/27/18 09:27> Insertion time: 21:08 <Sakshi Garza D - 04/27/18 09:27> Removal date: 04/12/18 <Sakshi Garza D - 04/27/18 09:27> Removal time: 11:35 <Sakshi Garza D - 04/27/18 09:27> Straight Cath placed during this visit: no <Saji Johnson 04/27/18 16:08> yes <Sakshi Garza - 04/27/18 09:47> Reason for continuing: Other continuation reason <Sakshi Garza D - 04/27/18 09:27> Insertion date: 04/11/18 <Sakshi Garza D - 04/27/18 09:27> Insertion time: 21:08 <Sakshi Garza D - 04/27/18 09:27> Assessment and Plan - Assessment (1) Osteomyelitis of ankle Code(s): M86.9 - Osteomyelitis, unspecified Status: Acute (2) Chronic wound of extremity Status: Chronic (3) MRSA (methicillin resistant staph aureus) culture positive Code(s): Z22.322 - Carrier or suspected carrier of Methicillin resistant Staphylococcus aureus Status: Acute (4) PAD (peripheral artery disease) Code(s): I73.9 - Peripheral vascular disease, unspecified Status: Chronic (5) Bandemia Code(s): D72.825 - Bandemia Status: Resolved (6) Hydronephrosis Code(s): N13.30 - Unspecified hydronephrosis Status: Acute (7) HTN (hypertension) Code(s): I10 - Essential (primary) hypertension Status: Acute (8) Diabetes Code(s): E11.9 - Type 2 diabetes mellitus without complications Status: Acute (9) Malnutrition Code(s): E46 - Unspecified protein-calorie malnutrition Status: Acute (10) Anisocoria Code(s): H57.02 - Anisocoria Status: Acute (11) Infection associated with internal hip prosthesis Code(s): T84.59XA - Infection and inflammatory reaction due to other internal joint prosthesis, initial encounter; Z96.649 - Presence of unspecified artificial hip joint Status: Acute (12) Nutrition, metabolism, and development symptoms Code(s): R63.8 - Other symptoms and signs concerning food and fluid intake Status: Acute <AlexSaji Benjamín - 04/27/18 16:08> (1) Osteomyelitis of ankle Code(s): M86.9 - Osteomyelitis, unspecified Status: Acute Plan: MRI showed evidence of osteomyelitis of right ankle which likely has been brewing for some time in this diabetic patient with PAD with chronic lower- extremity non-healing ulcers Culture positive for MRSA at different site (right thigh wound) Wound Cx of right ankle showed Pseudomonas as well as multidrug-resistant Proteus and group D enterococcus Blood cultures NGTD Afebrile Podiatry consulted, appreciate assistance; * plan for patient to have calcanectomy on 04/26 however due to patient's inability to recall presurgery discussion when seen by podiatry the morning of 04/26 Dr. Urena will no longer be performing calcanectomy procedure. * Recommends: betadine wet to dry daily and if foot/heel becomes acutely infected rec below-knee amputation of right lower extremity as patient is unable to care for himself or able to mentally process limb salvage procedure options. In addition the likelihood of failure was already high due to the low vascularity to the right lower limb. * Podiatry has signed off. Vascular surgery consulted * s/p KITCHEN HAND of popliteal stenosis on 04/24 * Anterior tibial, posterior tibia and peritoneal artery occluded Lower extremity pulses appreciated Via Doppler. Right popliteal pulse appreciated on exam * ID consulted, appreciate recs * Continue vancomycin * Continue Zerbaxa * Wound care consulted, appreciate recs * See note from 04/25 * follow recommendations * Pain management with Bernice scheduled, gabapentin, morphine for breakthrough pain (2) Chronic wound of extremity Status: Chronic Plan: Patient currently follows up with wound care as an outpatient Right hip wound, super observant dressing daily Skin tear lower left extremity, Santyl covered and dry dressing daily Right heel wound, apply gentamicin cream twice daily, see above plan for associated osteomyelitis Wound care consulted, appreciate recommendations * Cleanse wound to R Achilles heel with normal saline only and pat dry. Apply gentamicin mixed with Santyl 50/ 50 and apply to wound bed * Cover with ABD pad, and secure with rolled gauze and tape. Change dressing daily, until seen by podiatry. * Cleanse wound to R hip see updated note from 04/25 * Cleanse wound to L posterior lower leg with normal saline and pat dry. Apply optifoam gentle 4x4 dressing change dressing every 3 days or PRN if saturated or dislodged. (3) MRSA (methicillin resistant staph aureus) culture positive Code(s): Z22.322 - Carrier or suspected carrier of Methicillin resistant Staphylococcus aureus Status: Acute Plan: This patient suffers from chronic nonhealing wounds likely secondary to peripheral arterial disease and DM. Patient had wound from right thigh cultured which ultimately grew MRSA. -Monitor for fevers and signs of systemic illness -Antibiotic therapy as above (4) PAD (peripheral artery disease) Code(s): I73.9 - Peripheral vascular disease, unspecified Status: Chronic Plan: s/p recent right LE arterectomy. s/p vascular procedure as above on 04/24 (5) Bandemia Code(s): D72.825 - Bandemia Status: Resolved Plan: Resolved, likely due to osteomyelitis. See above plan. (6) Hydronephrosis Code(s): N13.30 - Unspecified hydronephrosis Status: Acute Plan: Abdominal pelvis CT demonstrates development of moderate left hydronephrosis and hydroureter without ureteral obstruction. Also demonstrates stool ball in the rectum large amount of stool throughout the colon. Patient had a bladder scan 04/11 that revealed of a residual volume of 231 mL. Patient currently voiding well. Patient has no CVA tenderness. Hammer in place UA on 04/26 : negative for infection - Continue to monitor I's and O's. (7) HTN (hypertension) Code(s): I10 - Essential (primary) hypertension Status: Acute Plan: Continue Cardizem and amiodarone (8) Diabetes Code(s): E11.9 - Type 2 diabetes mellitus without complications Status: Acute Plan: Held home glipizide, Januvia Accu-Cheks Low-dose sliding scale Hypoglycemia protocol in place (9) Malnutrition Code(s): E46 - Unspecified protein-calorie malnutrition Status: Acute Plan: This patient appears thin and possibly malnourished. Patient has significant muscle atrophy in arms and legs that are partially consistent with age and lack of activity. -Begin diet mentation with Ensure (10) Anisocoria Code(s): H57.02 - Anisocoria Status: Acute Plan: Most likely chronic in view of no other alarming ophthalmologic signs/symptoms Can follow up with Ophthalmology outpatient (11) Infection associated with internal hip prosthesis Code(s): T84.59XA - Infection and inflammatory reaction due to other internal joint prosthesis, initial encounter; Z96.649 - Presence of unspecified artificial hip joint Status: Acute Plan: Wound care noted to patient's right hip wound to be more purulent and fluctuant yesterday Right femur MRI was ordered and results showed: -Osseous cutaneous fistulous tract extending from the greater trochanter to the skin surface with small subcutaneous fluid collection identified. The collection appears to communicate with the prosthetic component in the proximal femur. -. Edematous changes are noted along the vastus lateralis and iliotibial band. Patient vital signs stable no signs of leukocytosis on CBC Follow wound care recommendations for care Orthopedic consultation was submitted, appreciate recommendations Patient will benefit from irrigation and debridement with hardware removal plan to do procedure today Pt has been N.p.o. since midnight (12) Nutrition, metabolism, and development symptoms Code(s): R63.8 - Other symptoms and signs concerning food and fluid intake Status: Acute Plan: Fluids: per PO Diet: Diabetic supplements with protein shake Vitals every 4, monitor I's and O's DVT prophylaxis: Contraindicated due to upper GI bleed <Sakshi Garza - 04/27/18 09:27> - Attending Attestation The exam, history, and the medical decision-making described in the above note were completed with the assistance of the resident physician. I reviewed and agree with the findings presented. Patient off the floor for procedure at the time I tried to see him. <Saji Johnson - 04/27/18 16:08> <Sakshi Garza - Last Filed: 04/27/18 09:27> (1) Osteomyelitis of ankle Qualifiers: Osteomyelitis type: other chronic Laterality: right Qualified Code(s): M86.671 - Other chronic osteomyelitis, right ankle and foot (6) Hydronephrosis Qualifiers: Hydronephrosis type: unspecified Qualified Code(s): N13.30 - Unspecified hydronephrosis <Saji Johnson - Last Filed: 04/27/18 16:08> (1) Osteomyelitis of ankle Qualifiers: Osteomyelitis type: other chronic Laterality: right Qualified Code(s): M86.671 - Other chronic osteomyelitis, right ankle and foot (6) Hydronephrosis Qualifiers: Hydronephrosis type: unspecified Qualified Code(s): N13.30 - Unspecified hydronephrosis <Sakshi Garza D - Last Filed: 04/27/18 09:27> (1) Osteomyelitis of ankle Qualifiers: Osteomyelitis type: other chronic Laterality: right Qualified Code(s): M86.671 - Other chronic osteomyelitis, right ankle and foot (6) Hydronephrosis Qualifiers: Hydronephrosis type: unspecified Qualified Code(s): N13.30 - Unspecified hydronephrosis <Saji Johnson - Last Filed: 04/27/18 16:08> (1) Osteomyelitis of ankle Qualifiers: Osteomyelitis type: other chronic Laterality: right Qualified Code(s): M86.671 - Other chronic osteomyelitis, right ankle and foot (6) Hydronephrosis Qualifiers: Hydronephrosis type: unspecified Qualified Code(s): N13.30 - Unspecified hydronephrosis
[2018-04-27] MEDS ORDERED: ceFAZolin 2 GM Premix Inj 2 GM/50 ML PIGGYBACK IV.SIG ONE (11:11)
[2018-04-27] MEDS ORDERED: Tobramycin Sulfate 1,200 MG Vial (for ortho/sterile core) OTHER ONE (11:11)
[2018-04-27] MEDS ORDERED: Lidocaine PF 1% Inj 5 ML Syringe OTHER ONE (11:40)
[2018-04-27] MEDS ORDERED: Post-op Orders (for Pharmacy) OTHER STA (13:37)
--- NOTE | 2018-04-27 13:37 | P.OP ---
Date of procedure: 04/27/18 Procedure: 1. Removal of hardware right femur, Synthes TFN 2. Irrigation and debridement of skin, subcutaneous tissue, muscle and bone 3. Insertion of antibiotic beads spacer, Stimulan Implants: Synthes TFN removed Stimulan dissolvable antibiotic beads inserted Anesthesia: GETA Surgeon: Vanna Sierra MD Estimated blood loss (mL): 150 Pathology: other (Cultures sent to microbiology and pathology) Operation and Findings: Indications for procedure: 87-year-old gentleman who had a right intertrochanteric femur fracture in 2016 treated with intramedullary nail by Dr. Macario. Patient did go on to heal this fracture but subsequently in the last 1-2 months has developed draining sinus over his right proximal femur. Given patient's current infection and positive cultures from the draining sinus , recommendation for hardware removal with irrigation debridement and possible antibiotic spacer placement. Risks, benefits, alternatives were discussed with the patient. At this time he has consented to the above-mentioned procedure. Description of procedure: Patient was brought back to the operating room where general anesthesia ensued. Patient was then carefully positioned supine on the operating room fracture table with all bony prominences well-padded. Patient was prepped and draped in standard sterile fashion. Preoperative antibiotics were held in order to obtain intraoperative cultures. A timeout was performed to identify the correct patient, side, site and procedure to be performed. The previous proximal incision near the tip of the greater trochanter was incised with sharp dissection through skin subcutaneous tissue and fascia. A guidewire was placed into the tip of the TFN and subsequently reamed over the top of this into the tip of the nail to remove excess bone formation. The proximal locking screw was loosened. The insertion handle was then inserted into the tip of the TFN. The proximal lateral incision for the locking blade was then opened and the draining sinus tract was ellipsed. The fascia was incised. There was fluid collection around this area which was cultured. The locking blade was then removed. The locking distal screw was then removed as well. At this time , the TFN was removed. The intramedullary canal was curetted and debrided with rongeurs and curettes. The wound was thoroughly irrigated with 6 L of saline laden with antibiotics. On the back table, Stimulan antibiotic beads were prepared and allowed to fully cure. These were then inserted into the femoral canal and around the proximal femur deep to fascia. The fascia was then closed with #1 PDS suture and the subcutaneous tissue with 2-0 PDS suture. The skin was then closed with nylon sutures. Sterile dressings were applied. Patient was then carefully transitioned off of the fracture table onto his hospital bed. Patient was awoken from general anesthesia without complication. Disposition: Toe-touch weightbearing left lower extremity.
[2018-04-27] MEDS ORDERED: fentaNYL Citrate Inj 100 MCG/2 ML Ampul ONE (14:02)
[2018-04-27] MEDS ORDERED: *morphine SULFATE 4 MG/ML PERIprocedure ONLY ONE (14:11)
--- NOTE | 2018-04-27 15:09 | XR ---
EXAM DATE: 04/27/2018 3:04 PM EST AGE/SEX: 87 years / Male INDICATIONS: Right hip hardware removal. CLINICAL DATA: This is the patient's initial encounter. Patient reports that signs and symptoms have been present for 1 day and indicates a pain score of Nonresponsive. MEDICAL/SURGICAL HISTORY: Non-responsive. Non-responsive. COMPARISON: [facility] – [place], HIP RIGHT (AP&LAT 2/3VWS) W AP PELVIS, 08/27/2017. . FINDINGS: Right hip hardware has been removed. There is heterotopic ossification around the previous fracture. Bone detail is indistinct. CONCLUSION: Hardware removal on the right. Electronically signed by: Nicholas Jacobsen MD 04/27/2018 3:07 PM EST
[2018-04-27] MEDS: Morphine Inj 4 MG/ML Vial IV.PUSH PRN ×2 (15:44→23:15)
[2018-04-28] MEDS: TAZOBACTAM IV.SIG SCH ×4 (01:10→23:39)
[2018-04-28] MEDS: SODIUM CHLOR 0.9% IV.SIG SCH ×4 (01:10→23:39)
[2018-04-28] MEDS: Vancomycin Inj 1,000 MG in Sodium Chlor 0.9% Inj 250 ML IV.SIG SCH ×2 (01:10→12:42)
[2018-04-28] MEDS: CEFTOLOZANE IV.SIG SCH ×4 (01:10→23:39)
[2018-04-28] MEDS: Levothyroxine 125 MCG Tablet PO SCH (05:43)
[2018-04-28 06:47] LABS: Anion Gap 13 meq/L (5-15); Blood Urea Nitrogen 17 mg/dL (7-18); Calcium 7.6 mg/dL (8.5-10.1); Carbon Dioxide 22.5 meq/L (21.0-32.0); Chloride 107 meq/L (98-107); Glomerular Filtration Rate Greater Than 89 mL/min (>89); Glucose,Random 94 mg/dL (74-106); Potassium 3.6 meq/L (3.5-5.1); Sodium 142 meq/L (136-145)
[2018-04-28 07:24] LABS: Baso # (Auto) 0.1 th/mm3 (0.0-0.2); Baso % (Auto) 1.4 % (0.0-2.0); Eos # (Auto) 0.5 th/mm3 (0.0-0.4); Eos % (Auto) 5.5 % (0.0-4.0); Hematocrit 23.5 % (39.0-51.0); Hemoglobin 7.5 gm/dL (13.0-17.0); Lymph % (Auto) 10.5 % (9.0-44.0); Mean Corpuscular HGB Conc 31.9 % (32.0-36.0); Mean Corpuscular Hemoglobin 30.9 pg (27.0-34.0); Mean Corpuscular Volume 96.7 fL (80.0-100.0); Mean Platelet Volume 7.4 fL (7.0-11.0); Mono # (Auto) 0.7 th/mm3 (0.0-0.9); Mono % (Auto) 8.2 % (0.0-8.0); Neut # (Auto) 6.8 th/mm3 (1.8-7.7); Neut % (Auto) 74.4 % (16.0-70.0); Platelet Count 367 th/mm3 (150-450); Red Blood Count 2.43 mil/mm3 (4.50-5.90); White Blood Count 9.1 th/mm3 (4.0-11.0)
[2018-04-28] MEDS: Amiodarone 200 MG Tablet PO SCH (08:11)
[2018-04-28] MEDS: Ferrous Sulfate 325 MG Tablet PO SCH ×3 (08:11→17:41)
[2018-04-28] MEDS: dilTIAZem 30 MG Tablet PO SCH ×3 (08:11→17:41)
[2018-04-28] MEDS: Gentamicin 0.1% Cream 15 GM Cream TOPICAL SCH ×2 (08:11→21:05)
[2018-04-28] MEDS: Polyethylene Glycol 3350 17 GM Packet PO SCH (08:12)
[2018-04-28] MEDS: Magnesium Oxide 400 MG Tablet PO SCH ×4 (08:12→21:05)
[2018-04-28] MEDS: Gabapentin 300 MG Capsule PO SCH ×3 (08:12→17:41)
[2018-04-28] MEDS: Potassium Phos/Sodium Phos 250 MG Tablet PO SCH ×4 (08:12→21:05)
[2018-04-28] MEDS: Sodium Chloride 1 GM Tablet PO SCH ×3 (08:13→17:41)
[2018-04-28] MEDS: Ascorbic Acid 500 MG Tablet PO SCH ×2 (08:13→21:05)
[2018-04-28] MEDS: Collagenase Oint 30 GM Tube TOPICAL SCH (08:13)
[2018-04-28] MEDS ORDERED: Vancomycin Consult Pharmacy OTHER PRN (09:33)
--- NOTE | 2018-04-28 09:36 | P.PNID ---
Subjective Remarks: Patient is an 87-year-old male, admitted to the hospital for evaluation of low hemoglobin. There was apparently episodes of black tarry stools. He had a GI workup on this admission, and he seemed to be stable from the GI standpoint. Patient apparently has had a wound on his right heel Achilles area. He had vascular workup, and underwent aortogram around April 08, and had atherectomy of the right SFA and popliteal area. Patient could not really tell me how long he has had the open wound. He has pain when he walks. There is been no fever and chills. On this admission podiatry was consulted. 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 There is a foul odor coming out from that right foot, and patient really could not notice any difference. Since admission he has not been febrile. He has significant pain whenever his RLE gets moved. There was a culture from a right thigh wound that has MRSA. I do not see any culture from the right foot. His initial WBC was around 14,000 and that is down to normal. Blood cultures are negative. Infectious disease consultation has been requested to evaluate the patient. Notes reviewed D/W RN Temps ok Had surgery R hip yesterday C/O pain R hip Underwent revascularization last week Podiatry notes reviewed C/O pain at foot C/S from ankle with MDR PSAE, Proteus and Enterococcus C/S R thigh MRSA Antibiotics: Vancomycin Zerbaxa Lines: PIV Past Medical History: Weakness Diabetes HLD (hyperlipidemia) MDRO (multiple drug resistant organisms) resistance Onset Date: ~04/11/18 MRSA (methicillin resistant Staphylococcus aureus) PAD (peripheral artery disease) Hip surgery Allergies/Adverse Reactions: Allergies No Known Allergies Allergy (Verified 04/08/18 12:35) Objective Vital Signs 04/27/18 13:54 04/27/18 14:15 04/27/18 14:30 Temperature 96.2 F L 97.2 F L Pulse Rate 58 L 55 L 57 L Respiratory Rate 13 20 17 Blood Pressure 145/66 H 137/65 132/65 Pulse Oximetry 100 100 100 04/27/18 16:00 04/27/18 20:00 04/28/18 00:00 Temperature 97.6 F 98.1 F 97.2 F L Pulse Rate 61 78 68 Respiratory Rate 17 20 20 Blood Pressure 140/61 108/54 L 97/54 L Pulse Oximetry 99 95 97 04/28/18 04:00 04/28/18 08:00 Temperature 98.1 F 98.8 F Pulse Rate 69 75 Respiratory Rate 20 18 Blood Pressure 95/53 L 110/53 L Pulse Oximetry 96 93 L Intake & Output 04/27/18 04/28/18 04/28/18 18:59 06:59 18:59 Intake Total 1150 / 1150 570 / 570 Output Total 1100 / 1100 500 / 500 Balance 50 / 50 70 / 70 Weight 65.8 kg Intake: IV 100 / 100 450 / 450 Zerbaxa Inj 1,500 MG In NS Inj 100 / 100 200 / 200 100 ML @ 100 mls/hr IV.SIG Q8H ACE Rx#:[id number] Vancomycin Inj 1,000 MG In NS 250 / 250 Inj 250 ML @ 250 mls/hr IV.SIG Q12H ACE Rx#:[id number] Oral 550 / 550 120 / 120 Anesthesia Amount 500 / 500 Output: Urine 800 / 800 500 / 500 Estimated Blood Loss 150 / 150 Urine Amount (Catheter) 150 / 150 Condom 150 / 150 Other: Date of Last Bowel Movement 04/24/18 04/27/18 # Bowel Movements 1 04/27/18 12:43 Wound - Thigh Acid Fast Bacilli Smear - Pending 04/27/18 12:43 Wound - Thigh Mycobacterial Culture - Pending 04/27/18 12:43 Wound - Thigh Fungal Smear - Pending 04/27/18 12:43 Wound - Thigh Fungal Culture - Pending 04/27/18 12:43 Wound - Thigh Gram Stain - Pending 04/27/18 12:43 Wound - Thigh Wound Culture - Pending Lab - Hematology Results 04/27/18 04/28/18 07:01 04:32 WBC 8.9 9.1 RBC 2.44 L 2.43 L Hgb 7.9 L 7.5 L Hct 23.1 L 23.5 L MCV 94.6 96.7 MCH 32.3 30.9 MCHC 34.1 31.9 L RDW 16.6 17.0 Plt Count 381 367 MPV 6.7 L 7.4 Neut % (Auto) 68.5 74.4 H Lymph % (Auto) 11.4 10.5 Esmeralda % (Auto) 9.8 H 8.2 H Eos % (Auto) 9.0 H 5.5 H Baso % (Auto) 1.3 1.4 Neut # (Auto) 6.1 6.8 Lymph # (Auto) 1.0 1.0 Esmeralda # (Auto) 0.9 0.7 Eos # (Auto) 0.8 H 0.5 H Baso # (Auto) 0.1 0.1 WBC Differential . . Differential Comment Auto diff final Auto diff final Lab - Chemistry Results 04/26/18 04/26/18 04/26/18 12:52 17:03 22:04 Sodium Potassium Chloride Carbon Dioxide Anion Gap BUN Creatinine Estimated GFR POC Glucose 208 H 139 H 216 H Random Glucose Calcium 04/27/18 04/27/18 04/27/18 07:01 07:46 14:05 Sodium 141 Potassium 3.5 Chloride 105 Carbon Dioxide 26.1 Anion Gap 10 BUN 18 Creatinine 0.65 Estimated GFR Greater than 89 POC Glucose 152 H 179 H Random Glucose 136 H Calcium 7.7 L 04/27/18 04/28/18 04/28/18 16:51 04:32 07:38 Sodium 142 Potassium 3.6 Chloride 107 Carbon Dioxide 22.5 Anion Gap 13 BUN 17 Creatinine 0.69 Estimated GFR Greater than 89 POC Glucose 168 H 174 H Random Glucose 94 Calcium 7.6 L Imaging: ITS Impressions Abdomen/Pelvis CT 04/11/18 11:57 CONCLUSION: 1. There is marked destructive changes of the right proximal femur identified. The trochanteric nail hardware now extends beyond the femoral head cortex partially destroyed. There is also a patchy/permeative appearance of the shield tuberosity without obvious fracture. 2. Stool ball in the rectum and a large amount of stool throughout the colon. 3. Nonobstructing left renal calculi and left renal cyst. 4. Interval development of moderate left hydronephrosis and hydroureter without obvious obstructing stone. Head CT 04/11/18 11:59 CONCLUSION: 1. Stable appearance of the brain. . Ankle MRI 04/15/18 00:00 CONCLUSION: 1. Osteomyelitis of the posterior calcaneus with a near complete tear of the distal Achilles tendon. There is overlying cellulitis and subcutaneous edema with a small abscess adjacent to the distal Achilles tendon as measured above. There is edematous change on the plantar aspect of the foot with a tenosynovitis as above. No acute fracture identified. Mild bone edema tibia, nonspecific. Ankle X-Ray 04/15/18 00:00 CONCLUSION: Osteomyelitis of the posterior calcaneus with overlying soft tissue swelling and ulceration. No acute fracture. Femur MRI 04/25/18 00:00 CONCLUSION: 1. 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 The collection appears to communicate with the prosthetic component in the proximal femur. 2. Edematous changes are noted along the vastus lateralis and iliotibial band. Hip X-Ray 04/27/18 00:00 CONCLUSION: Hardware removal on the right. Physical Exam: GENERAL: awake and alert, not in respiratory distress. SKIN: Cool and dry. No generalized rash. HEAD: Atraumatic. Normocephalic. No temporal wasting, or tenderness. EYES: [employer] conjunctiva. No petechia or hemorrhage. No scleral icterus. No injection or drainage. EARS, NOSE AND THROAT: Mucous membranes pink and moist. No oral lesions noted. No exudate. No oral thrush. NECK: Trachea midline. Supple and not tender, no meningeal signs CARDIOVASCULAR: Regular rate and rhythm. No murmurs, rubs or gallops heard RESPIRATORY: Clear to auscultation. Breath sounds equal bilaterally. No rales , wheezing or rhonchi ABDOMEN: Soft, non-tender, nondistended. Bowel sounds present and normoactive. No guarding. No rebound. No organomegaly. EXTREMITIES: No clubbing, cyanosis, or edema. R foot - has black eschar in posterior ankle/heel with odor, some swelling on the heel. Has purplish discoloration second toe and tip of big toe; has purplish discoloration of dorsum of R mid foot (looks like from dressing or boot). Dressing R hip LINE: No evidence of infection Assessment and Plan - Plan Impression Non-healing wound R heel/achilles area with abscess and osteo posterior calcaneus PVD S/P revascularization RLE Infection R femur, has sinus tract on MRI, S/P RAZA,. C/S MRSA GIB Leukocytosis, mild Recommendation Continue IV Vanco Continue Zerbaxa Follow new C/S Monitor progress
[2018-04-28] MEDS: Insulin NovoLOG Aspart Correctional Sugar Inj SQ SCH ×4 (10:27→21:09)
[2018-04-28] MEDS ORDERED: Pharmacy Ordered Lab Info OTHER ONE (12:45)
--- NOTE | 2018-04-28 13:51 | P.PNFP ---
Subjective Interval history: No acute events overnight. Patient resting comfortably in bed. He said he is having some right hip pain and into his right foot but no pain in his left foot. He was excited to talk to his sister today. Patient wants to go back to his alf. He denies any chest pain or shortness of breath or abdominal pain. <Tamiko Cooper C - 04/28/18 13:50> Results - Labs Result diagrams: 04/28/18 04:32 04/28/18 04:32 <Saji Johnson - 04/28/18 14:08> Abnormal lab results 04/27/18 04/27/18 04/28/18 Range/Units 14:05 16:51 04:32 RBC 2.43 L (4.50-5.90) mil/mm3 Hgb 7.5 L (13.0-17.0) gm/dL Hct 23.5 L (39.0-51.0) % MCHC 31.9 L (32.0-36.0) % Neut % (Auto) 74.4 H (16.0-70.0) % [place] % (Auto) 8.2 H (0.0-8.0) % Eos % (Auto) 5.5 H (0.0-4.0) % Eos # (Auto) 0.5 H (0.0-0.4) th/mm3 POC Glucose 179 H 168 H (68-110) mg/dl Calcium (8.5-10.1) mg/dL 04/28/18 04/28/18 04/28/18 Range/Units 04:32 07:38 11:12 RBC (4.50-5.90) mil/mm3 Hgb (13.0-17.0) gm/dL Hct (39.0-51.0) % MCHC (32.0-36.0) % Neut % (Auto) (16.0-70.0) % [place] % (Auto) (0.0-8.0) % Eos % (Auto) (0.0-4.0) % Eos # (Auto) (0.0-0.4) th/mm3 POC Glucose 174 H 198 H (68-110) mg/dl Calcium 7.6 L (8.5-10.1) mg/dL Short CBC 04/28/18 Range/Units 04:32 WBC 9.1 (4.0-11.0) th/mm3 Hgb 7.5 L (13.0-17.0) gm/dL Hct 23.5 L (39.0-51.0) % Plt Count 367 (150-450) th/mm3 [facility] 04/28/18 04:32 Sodium 142 Potassium 3.6 Chloride 107 Carbon Dioxide 22.5 BUN 17 Creatinine 0.69 Calcium 7.6 L <Young,Saji L - 04/28/18 14:08> Abnormal lab results 04/27/18 04/27/18 04/28/18 Range/Units 14:05 16:51 04:32 RBC 2.43 L (4.50-5.90) mil/mm3 Hgb 7.5 L (13.0-17.0) gm/dL Hct 23.5 L (39.0-51.0) % MCHC 31.9 L (32.0-36.0) % Neut % (Auto) 74.4 H (16.0-70.0) % [place] % (Auto) 8.2 H (0.0-8.0) % Eos % (Auto) 5.5 H (0.0-4.0) % Eos # (Auto) 0.5 H (0.0-0.4) th/mm3 POC Glucose 179 H 168 H (68-110) mg/dl Calcium (8.5-10.1) mg/dL 04/28/18 04/28/18 04/28/18 Range/Units 04:32 07:38 11:12 RBC (4.50-5.90) mil/mm3 Hgb (13.0-17.0) gm/dL Hct (39.0-51.0) % MCHC (32.0-36.0) % Neut % (Auto) (16.0-70.0) % [place] % (Auto) (0.0-8.0) % Eos % (Auto) (0.0-4.0) % Eos # (Auto) (0.0-0.4) th/mm3 POC Glucose 174 H 198 H (68-110) mg/dl Calcium 7.6 L (8.5-10.1) mg/dL Short CBC 04/28/18 Range/Units 04:32 WBC 9.1 (4.0-11.0) th/mm3 Hgb 7.5 L (13.0-17.0) gm/dL Hct 23.5 L (39.0-51.0) % Plt Count 367 (150-450) th/mm3 [facility] 04/28/18 04:32 Sodium 142 Potassium 3.6 Chloride 107 Carbon Dioxide 22.5 BUN 17 Creatinine 0.69 Calcium 7.6 L <Tamiko Cooper - 04/28/18 13:50> - Imaging Impressions Hip X-Ray 04/27/18 00:00 CONCLUSION: Hardware removal on the right. <Saji Johnson L - 04/28/18 14:08> Impressions Hip X-Ray 04/27/18 00:00 CONCLUSION: Hardware removal on the right. <Tamiko Cooper - 04/28/18 13:50> Physical Exam Vital signs: Vital Signs 04/27/18 14:15 04/27/18 14:30 04/27/18 16:00 Temperature 97.2 F L 97.6 F Pulse Rate 55 L 57 L 61 Respiratory Rate 20 17 17 Blood Pressure 137/65 132/65 140/61 Pulse Oximetry 100 100 99 04/27/18 20:00 04/28/18 00:00 04/28/18 04:00 Temperature 98.1 F 97.2 F L 98.1 F Pulse Rate 78 68 69 Respiratory Rate 20 20 20 Blood Pressure 108/54 L 97/54 L 95/53 L Pulse Oximetry 95 97 96 04/28/18 08:00 04/28/18 12:00 Temperature 98.8 F 98.9 F Pulse Rate 75 68 Respiratory Rate 18 18 Blood Pressure 110/53 L 102/50 L Pulse Oximetry 93 L 93 L Intake & Output 04/27/18 04/28/18 04/28/18 18:59 06:59 18:59 Intake Total 1150 / 1150 570 / 570 350 / 350 Output Total 1100 / 1100 500 / 500 Balance 50 / 50 70 / 70 350 / 350 Weight 65.8 kg Intake: IV 100 / 100 450 / 450 350 / 350 Zerbaxa Inj 1,500 MG In NS Inj 100 / 100 200 / 200 100 / 100 100 ML @ 100 mls/hr IV.SIG Q8H [facility] Rx#:[id number] Vancomycin Inj 1,000 MG In NS 250 / 250 250 / 250 Inj 250 ML @ 250 mls/hr IV.SIG Q12H [facility] Rx#:[id number] Oral 550 / 550 120 / 120 Anesthesia Amount 500 / 500 Output: Urine 800 / 800 500 / 500 Estimated Blood Loss 150 / 150 Urine Amount (Catheter) 150 / 150 Condom 150 / 150 Other: Date of Last Bowel Movement 04/24/18 04/27/18 # Bowel Movements 1 <Saji Johnson L - 04/28/18 14:08> Vital Signs 04/27/18 13:54 04/27/18 14:15 04/27/18 14:30 Temperature 96.2 F L 97.2 F L Pulse Rate 58 L 55 L 57 L Respiratory Rate 13 20 17 Blood Pressure 145/66 H 137/65 132/65 Pulse Oximetry 100 100 100 04/27/18 16:00 04/27/18 20:00 04/28/18 00:00 Temperature 97.6 F 98.1 F 97.2 F L Pulse Rate 61 78 68 Respiratory Rate 17 20 20 Blood Pressure 140/61 108/54 L 97/54 L Pulse Oximetry 99 95 97 04/28/18 04:00 04/28/18 08:00 04/28/18 12:00 Temperature 98.1 F 98.8 F 98.9 F Pulse Rate 69 75 68 Respiratory Rate 20 18 18 Blood Pressure 95/53 L 110/53 L 102/50 L Pulse Oximetry 96 93 L 93 L Intake & Output 04/27/18 04/28/18 04/28/18 18:59 06:59 18:59 Intake Total 1150 / 1150 570 / 570 350 / 350 Output Total 1100 / 1100 500 / 500 Balance 50 / 50 70 / 70 350 / 350 Weight 65.8 kg Intake: IV 100 / 100 450 / 450 350 / 350 Zerbaxa Inj 1,500 MG In NS Inj 100 / 100 200 / 200 100 / 100 100 ML @ 100 mls/hr IV.SIG Q8H [facility] Rx#:[id number] Vancomycin Inj 1,000 MG In NS 250 / 250 250 / 250 Inj 250 ML @ 250 mls/hr IV.SIG Q12H [facility] Rx#:[id number] Oral 550 / 550 120 / 120 Anesthesia Amount 500 / 500 Output: Urine 800 / 800 500 / 500 Estimated Blood Loss 150 / 150 Urine Amount (Catheter) 150 / 150 Condom 150 / 150 Other: Date of Last Bowel Movement 04/24/18 04/27/18 # Bowel Movements 1 <Tamiko Cooper - 04/28/18 13:50> Narrative: GENERAL: Pleasant elderly male thin, appears malnourished. SKIN: Cool and dry. No generalized rash. Has some scattered ecchymoses in his UE. HEAD: Atraumatic. Normocephalic. No temporal wasting, or tenderness. EYES: Anisocoria and left eye, EOMI CARDIOVASCULAR: Regular rate and rhythm. No murmurs, rubs or gallops heard RESPIRATORY: Clear to auscultation. Breath sounds equal bilaterally. No rales , wheezing or rhonchi ABDOMEN: Soft, non-tender, nondistended. No guarding. No rebound. No organomegaly. EXTREMITIES: No edema. Atrophic muscular changes in both legs bilaterally. Right heel covered in bandage and in a boot. Left foot bandage dry and clean. Patient also has wound on right thigh that is bandaged. Dressing in place, clean and dry. Under dressing some serious sanginous drainage noted but incision looks dry and intact with no active discharge. Patient able to move toes bilaterally and no decreased sensation. Weak pulse palpated on right popliteal artery. <Tamiko Cooper 04/28/18 13:50> - Urinary Catheter Management Condom Cath placed during this visit: no <Saji Johnson 04/28/18 14:08> no <Tamiko Cooper 04/28/18 13:50> Reason for continuing: Not indwelling catheter <Tamiko Cooper 04/28/18 13: 50> Indwelling Urethral Catheter Cath placed during this visit: no <Saji Johnson 04/28/18 14:08> yes, but has since been removed by the nurse <Tamiko Cooper 04/28/18 13:50> Reason for continuing: Not indwelling catheter <Tamiko Cooper 04/28/18 13: 50> Insertion date: 04/11/18 <Tamiko Cooper 04/28/18 13:50> Insertion time: 21:08 <Tamiko Cooper 04/28/18 13:50> Removal date: 04/12/18 <Tamiko Cooper 04/28/18 13:50> Removal time: 11:35 <Tamiko Cooper 04/28/18 13:50> Straight Cath placed during this visit: no <Saji Johnson Erin 04/28/18 14:08> yes <Tamiko Cooper Erin 04/28/18 13:50> Reason for continuing: Other continuation reason <Tamiko Cooper Erin 04/28/18 13:50> Insertion date: 04/11/18 <Tamiko Cooper Erin 04/28/18 13:50> Insertion time: 21:08 <Tamiko Cooper Erin 04/28/18 13:50> Assessment and Plan - Assessment (1) Osteomyelitis of ankle Code(s): M86.9 - Osteomyelitis, unspecified Status: Acute (2) Infection associated with internal hip prosthesis Code(s): T84.59XA - Infection and inflammatory reaction due to other internal joint prosthesis, initial encounter; Z96.649 - Presence of unspecified artificial hip joint Status: Acute (3) Chronic wound of extremity Status: Chronic (4) MRSA (methicillin resistant staph aureus) culture positive Code(s): Z22.322 - Carrier or suspected carrier of Methicillin resistant Staphylococcus aureus Status: Acute (5) PAD (peripheral artery disease) Code(s): I73.9 - Peripheral vascular disease, unspecified Status: Chronic (6) Bandemia Code(s): D72.825 - Bandemia Status: Resolved (7) Hydronephrosis Code(s): N13.30 - Unspecified hydronephrosis Status: Acute (8) HTN (hypertension) Code(s): I10 - Essential (primary) hypertension Status: Acute (9) Diabetes Code(s): E11.9 - Type 2 diabetes mellitus without complications Status: Acute (10) Malnutrition Code(s): E46 - Unspecified protein-calorie malnutrition Status: Acute (11) Anisocoria Code(s): H57.02 - Anisocoria Status: Acute (12) Nutrition, metabolism, and development symptoms Code(s): R63.8 - Other symptoms and signs concerning food and fluid intake Status: Acute <Saji Johnson Erin 04/28/18 14:08> (1) Osteomyelitis of ankle Code(s): M86.9 - Osteomyelitis, unspecified Status: Acute Plan: MRI showed evidence of osteomyelitis of right ankle which likely has been brewing for some time in this diabetic patient with PAD with chronic lower- extremity non-healing ulcers Culture positive for MRSA at different site (right thigh wound) Wound Cx of right ankle showed Pseudomonas as well as multidrug-resistant Proteus and group D enterococcus Blood cultures NGTD Afebrile Podiatry consulted, appreciate assistance; * plan for patient to have calcanectomy on 04/26 however due to patient's inability to recall presurgery discussion when seen by podiatry the morning of 04/26 Dr. Urena will no longer be performing calcanectomy procedure. * Recommends: betadine wet to dry daily and if foot/heel becomes acutely infected rec below-knee amputation of right lower extremity as patient is unable to care for himself or able to mentally process limb salvage procedure options. In addition the likelihood of failure was already high due to the low vascularity to the right lower limb. * Podiatry has signed off. 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 Right popliteal pulse appreciated on exam * ID consulted, appreciate recs * Continue vancomycin * Continue Zerbaxa * Wound care consulted, appreciate recs * See note from 04/25 * follow recommendations * Pain management with [place] scheduled, gabapentin, morphine for breakthrough pain (2) Infection associated with internal hip prosthesis Code(s): T84.59XA - Infection and inflammatory reaction due to other internal joint prosthesis, initial encounter; Z96.649 - Presence of unspecified artificial hip joint Status: Acute Plan: Wound care noted to patient's right hip wound to be more purulent and fluctuant yesterday Right femur MRI was ordered and results showed: -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 The collection appears to communicate with the prosthetic component in the proximal femur. -. Edematous changes are noted along the vastus lateralis and iliotibial band. Patient vital signs stable no signs of leukocytosis on CBC Follow wound care recommendations for care Orthopedic consultation: 04/27 irrigation and debridement with hardware removal and placement of antibiotic beads (3) Chronic wound of extremity Status: Chronic Plan: Patient currently follows up with wound care as an outpatient Right hip wound, super observant dressing daily Skin tear lower left extremity, Santyl covered and dry dressing daily Right heel wound, apply gentamicin cream twice daily, see above plan for associated osteomyelitis Wound care consulted, appreciate recommendations * Cleanse wound to R Achilles heel with normal saline only and pat dry. Apply gentamicin mixed with Santyl 50/ 50 and apply to wound bed * Cover with ABD pad, and secure with rolled gauze and tape. Change dressing daily, until seen by podiatry. * Cleanse wound to R hip see updated note from 04/25 * Cleanse wound to L posterior lower leg with normal saline and pat dry. Apply optifoam gentle 4x4 dressing change dressing every 3 days or PRN if saturated or dislodged. (4) MRSA (methicillin resistant staph aureus) culture positive Code(s): Z22.322 - Carrier or suspected carrier of Methicillin resistant Staphylococcus aureus Status: Acute Plan: This patient suffers from chronic nonhealing wounds likely secondary to peripheral arterial disease and DM. Patient had wound from right thigh cultured which ultimately grew MRSA. -Monitor for fevers and signs of systemic illness -Antibiotic therapy as above (5) PAD (peripheral artery disease) Code(s): I73.9 - Peripheral vascular disease, unspecified Status: Chronic Plan: s/p recent right LE arterectomy. s/p vascular procedure as above on 04/24 (6) Bandemia Code(s): D72.825 - Bandemia Status: Resolved Plan: Resolved, likely due to osteomyelitis. See above plan. (7) Hydronephrosis Code(s): N13.30 - Unspecified hydronephrosis Status: Acute Plan: Abdominal pelvis CT demonstrates development of moderate left hydronephrosis and hydroureter without ureteral obstruction. Also demonstrates stool ball in the rectum large amount of stool throughout the colon. Patient had a bladder scan 04/11 that revealed of a residual volume of 231 mL. Patient currently voiding well. Patient has no CVA tenderness. Hammer in place UA on 04/26 : negative for infection - Continue to monitor I's and O's. (8) HTN (hypertension) Code(s): I10 - Essential (primary) hypertension Status: Acute Plan: Continue Cardizem and amiodarone (9) Diabetes Code(s): E11.9 - Type 2 diabetes mellitus without complications Status: Acute Plan: Held home glipizide, Januvia Accu-Cheks Low-dose sliding scale Hypoglycemia protocol in place (10) Malnutrition Code(s): E46 - Unspecified protein-calorie malnutrition Status: Acute Plan: This patient appears thin and possibly malnourished. Patient has significant muscle atrophy in arms and legs that are partially consistent with age and lack of activity. -Begin diet mentation with Ensure (11) Anisocoria Code(s): H57.02 - Anisocoria Status: Acute Plan: Most likely chronic in view of no other alarming ophthalmologic signs/symptoms Can follow up with Ophthalmology outpatient (12) Nutrition, metabolism, and development symptoms Code(s): R63.8 - Other symptoms and signs concerning food and fluid intake Status: Acute Plan: Fluids: per PO Diet: Diabetic supplements with protein shake Electrolytes: monitor and replete as needed DVT prophylaxis: Contraindicated due to upper GI bleed Disposition: Back to SNF when cleared by orthopedics Discussed with Dr. Johnson <Tamiko Cooper - 04/28/18 13:40> - Attending Attestation The exam, history, and the medical decision-making described in the above note were completed with the assistance of the resident physician. I reviewed and agree with the findings presented. I attest that I had a [id number] encounter with the patient on the same day, and personally performed and documented my assessment and findings in the medical record. Patient seen with resident team this morning. He is status post right hip hardware removal and placement of antibiotic beads given infected fistula. 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 Will likely be d/c'ed back to SNF once cleared by all specialists. <Saji Johnson - 04/28/18 14:08> <Tamiko Cooper - Last Filed: 04/28/18 13:40> (1) Osteomyelitis of ankle Qualifiers: Osteomyelitis type: other chronic Laterality: right Qualified Code(s): M86.671 - Other chronic osteomyelitis, right ankle and foot (7) Hydronephrosis Qualifiers: Hydronephrosis type: unspecified Qualified Code(s): N13.30 - Unspecified hydronephrosis <Saji Johnson - Last Filed: 04/28/18 14:08> (1) Osteomyelitis of ankle Qualifiers: Osteomyelitis type: other chronic Laterality: right Qualified Code(s): M86.671 - Other chronic osteomyelitis, right ankle and foot (7) Hydronephrosis Qualifiers: Hydronephrosis type: unspecified Qualified Code(s): N13.30 - Unspecified hydronephrosis <Tamiko Cooper - Last Filed: 04/28/18 13:40> (1) Osteomyelitis of ankle Qualifiers: Osteomyelitis type: other chronic Laterality: right Qualified Code(s): M86.671 - Other chronic osteomyelitis, right ankle and foot (7) Hydronephrosis Qualifiers: Hydronephrosis type: unspecified Qualified Code(s): N13.30 - Unspecified hydronephrosis <Saji Johnson - Last Filed: 04/28/18 14:08> (1) Osteomyelitis of ankle Qualifiers: Osteomyelitis type: other chronic Laterality: right Qualified Code(s): M86.671 - Other chronic osteomyelitis, right ankle and foot (7) Hydronephrosis Qualifiers: Hydronephrosis type: unspecified Qualified Code(s): N13.30 - Unspecified hydronephrosis
[2018-04-28] MEDS: Morphine Inj 4 MG/ML Vial IV.PUSH PRN (23:39)
[2018-04-29] MEDS: TAZOBACTAM IV.SIG SCH ×3 (02:54→17:52)
[2018-04-29] MEDS: CEFTOLOZANE IV.SIG SCH ×3 (02:54→17:52)
[2018-04-29] MEDS: SODIUM CHLOR 0.9% IV.SIG SCH ×3 (02:54→17:52)
[2018-04-29] MEDS: Morphine Inj 4 MG/ML Vial IV.PUSH PRN ×3 (03:31→21:13)
[2018-04-29] MEDS: Levothyroxine 125 MCG Tablet PO SCH (06:03)
[2018-04-29 06:40] LABS: Glomerular Filtration Rate Greater Than 89 mL/min (>89)
[2018-04-29] MEDS: Insulin NovoLOG Aspart Correctional Sugar Inj SQ SCH ×4 (08:12→21:55)
[2018-04-29] MEDS: Amiodarone 200 MG Tablet PO SCH (08:13)
[2018-04-29] MEDS: Gabapentin 300 MG Capsule PO SCH ×3 (08:13→17:51)
[2018-04-29] MEDS: Ascorbic Acid 500 MG Tablet PO SCH ×2 (08:13→21:11)
[2018-04-29] MEDS: Potassium Phos/Sodium Phos 250 MG Tablet PO SCH ×4 (08:14→21:11)
[2018-04-29] MEDS: Ferrous Sulfate 325 MG Tablet PO SCH ×3 (08:14→17:52)
[2018-04-29] MEDS: Sodium Chloride 1 GM Tablet PO SCH ×3 (08:14→17:51)
[2018-04-29] MEDS: dilTIAZem 30 MG Tablet PO SCH ×3 (08:15→17:52)
[2018-04-29] MEDS: Magnesium Oxide 400 MG Tablet PO SCH ×4 (08:15→21:12)
[2018-04-29] MEDS: Polyethylene Glycol 3350 17 GM Packet PO SCH (08:17)
[2018-04-29] MEDS: Collagenase Oint 30 GM Tube TOPICAL SCH (08:17)
[2018-04-29 09:33] LABS: Baso # (Auto) 0.1 th/mm3 (0.0-0.2); Baso % (Auto) 1.5 % (0.0-2.0); Eos # (Auto) 0.5 th/mm3 (0.0-0.4); Eos % (Auto) 5.2 % (0.0-4.0); Lymph # (Auto) 1.3 th/mm3 (1.0-4.8); Lymph % (Auto) 13.8 % (9.0-44.0); Mean Corpuscular HGB Conc 33.2 % (32.0-36.0); Mean Corpuscular Hemoglobin 31.9 pg (27.0-34.0); Mean Platelet Volume 7.1 fL (7.0-11.0); Mono # (Auto) 0.9 th/mm3 (0.0-0.9); Mono % (Auto) 9.5 % (0.0-8.0); Neut # (Auto) 6.4 th/mm3 (1.8-7.7); Platelet Count 328 th/mm3 (150-450); Red Blood Count 2.05 mil/mm3 (4.50-5.90); Red Cell Distribution Width 16.8 % (11.6-17.2); White Blood Count 9.1 th/mm3 (4.0-11.0)
[2018-04-29 09:40] LABS: Hemoglobin 6.5 gm/dL (13.0-17.0)
[2018-04-29 09:41] LABS: Hematocrit 19.7 % (39.0-51.0)
[2018-04-29] MEDS: Gentamicin 0.1% Cream 15 GM Cream TOPICAL SCH ×2 (10:01→21:13)
--- NOTE | 2018-04-29 10:02 | P.PNID ---
Subjective Remarks: Patient is an 87-year-old male, admitted to the hospital for evaluation of low hemoglobin. There was apparently episodes of black tarry stools. He had a GI workup on this admission, and he seemed to be stable from the GI standpoint. Patient apparently has had a wound on his right heel Achilles area. He had vascular workup, and underwent aortogram around April 08, and had atherectomy of the right SFA and popliteal area. Patient could not really tell me how long he has had the open wound. He has pain when he walks. There is been no fever and chills. On this admission podiatry was consulted. 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 There is a foul odor coming out from that right foot, and patient really could not notice any difference. Since admission he has not been febrile. He has significant pain whenever his RLE gets moved. There was a culture from a right thigh wound that has MRSA. I do not see any culture from the right foot. His initial WBC was around 14,000 and that is down to normal. Blood cultures are negative. Infectious disease consultation has been requested to evaluate the patient. Notes reviewed D/W RN Shelia ok Had surgery R hip 04/27 - removal of hardware Intraop C/S negative C/O pain R hip Underwent revascularization last week C/O pain at foot C/S from ankle with MDR PSAE, Proteus and Enterococcus C/S R thigh MRSA (wound) SNF will not take patient due to cost of Zerbaxa Antibiotics: Vancomycin Zerbaxa Lines: PIV Past Medical History: Weakness Diabetes HLD (hyperlipidemia) MDRO (multiple drug resistant organisms) resistance Onset Date: ~04/11/18 MRSA (methicillin resistant Staphylococcus aureus) PAD (peripheral artery disease) Hip surgery Allergies/Adverse Reactions: Allergies No Known Allergies Allergy (Verified 04/08/18 12:35) Objective Vital Signs 04/28/18 12:00 04/28/18 16:00 04/28/18 20:00 Temperature 98.9 F 99.0 F 99.8 F H Pulse Rate 68 67 75 Respiratory Rate Blood Pressure 102/50 L 112/54 L 115/53 L Pulse Oximetry 93 L 99 94 L 04/28/18 23:44 04/29/18 04:00 04/29/18 07:49 Temperature 100.8 F H 97.9 F 97.7 F Pulse Rate 86 69 70 Respiratory Rate 16 17 17 Blood Pressure 133/56 L 115/56 L 128/59 L Pulse Oximetry 93 L 97 95 04/29/18 08:00 Temperature 97.3 F L Pulse Rate 68 Respiratory Rate 20 Blood Pressure 121/59 L Pulse Oximetry 95 Intake & Output 04/28/18 04/29/18 04/29/18 18:59 06:59 18:59 Intake Total 1170 / 1170 100 / 100 Output Total 800 / 800 500 / 500 Balance 370 / 370 -400 / -400 Weight 81.7 kg Intake: IV 450 / 450 100 / 100 Zerbaxa Inj 1,500 MG In NS Inj 200 / 200 100 / 100 100 ML @ 100 mls/hr IV.SIG Q8H [facility] Rx#:[id number] Vancomycin Inj 1,000 MG In NS 250 / 250 Inj 250 ML @ 250 mls/hr IV.SIG Q12H [facility] Rx#:[id number] Oral 720 / 720 Output: Urine 800 / 800 500 / 500 Other: Date of Last Bowel Movement 04/27/18 04/28/18 # Bowel Movements 1 04/29/18 09:05 Blood - Peripheral Aerobic Blood Culture - Pending 04/29/18 09:05 Blood - Peripheral Anaerobic Blood Culture - Pending 04/29/18 09:10 Blood - Peripheral Aerobic Blood Culture - Pending 04/29/18 09:10 Blood - Peripheral Anaerobic Blood Culture - Pending 04/27/18 12:43 Wound - Thigh Acid Fast Bacilli Smear - Final No acid fast bacilli seen 04/27/18 12:43 Wound - Thigh Mycobacterial Culture - Pending 04/27/18 12:43 Wound - Thigh Gram Stain - Final 04/27/18 12:43 Wound - Thigh Wound Culture - Preliminary No growth in 48 hours 04/27/18 12:43 Wound - Thigh Fungal Smear - Final No fungal elements seen 04/27/18 12:43 Wound - Thigh Fungal Culture - Pending Lab - Hematology Results 04/28/18 04/29/18 04:32 09:05 WBC 9.1 9.1 RBC 2.43 L 2.05 L Hgb 7.5 L 6.5 L* Hct 23.5 L 19.7 L* MCV 96.7 96.0 MCH 30.9 31.9 MCHC 31.9 L 33.2 RDW 17.0 16.8 Plt Count 367 328 MPV 7.4 7.1 Prelim Diff (Auto) Field Sales Specialist Neut % (Auto) 74.4 H 70.0 Lymph % (Auto) 10.5 13.8 [place] % (Auto) 8.2 H 9.5 H Eos % (Auto) 5.5 H 5.2 H Baso % (Auto) 1.4 1.5 Neut # (Auto) 6.8 6.4 Lymph # (Auto) 1.0 1.3 [place] # (Auto) 0.7 0.9 Eos # (Auto) 0.5 H 0.5 H Baso # (Auto) 0.1 0.1 WBC Differential . . Differential Comment Auto diff final Auto diff final Lab - Chemistry Results 04/27/18 04/27/18 04/28/18 14:05 16:51 04:32 Sodium 142 Potassium 3.6 Chloride 107 Carbon Dioxide 22.5 Anion Gap 13 BUN 17 Creatinine 0.69 Estimated GFR Greater than 89 POC Glucose 179 H 168 H Random Glucose 94 Calcium 7.6 L 04/28/18 04/28/18 04/28/18 07:38 11:12 16:13 Sodium Potassium Chloride Carbon Dioxide Anion Gap BUN Creatinine Estimated GFR POC Glucose 174 H 198 H 240 H Random Glucose Calcium 04/28/18 04/29/18 04/29/18 21:07 04:19 07:03 Sodium Potassium Chloride Carbon Dioxide Anion Gap BUN Creatinine 0.73 Estimated GFR Greater than 89 POC Glucose 178 H 229 H Random Glucose Calcium Imaging: ITS Impressions Abdomen/Pelvis CT 04/11/18 11:57 CONCLUSION: 1. There is marked destructive changes of the right proximal femur identified. The trochanteric nail hardware now extends beyond the femoral head cortex partially destroyed. There is also a patchy/permeative appearance of the shield tuberosity without obvious fracture. 2. Stool ball in the rectum and a large amount of stool throughout the colon. 3. Nonobstructing left renal calculi and left renal cyst. 4. Interval development of moderate left hydronephrosis and hydroureter without obvious obstructing stone. Head CT 04/11/18 11:59 CONCLUSION: 1. Stable appearance of the brain. . Ankle MRI 04/15/18 00:00 CONCLUSION: 1. Osteomyelitis of the posterior calcaneus with a near complete tear of the distal Achilles tendon. There is overlying cellulitis and subcutaneous edema with a small abscess adjacent to the distal Achilles tendon as measured above. There is edematous change on the plantar aspect of the foot with a tenosynovitis as above. No acute fracture identified. Mild bone edema tibia, nonspecific. Ankle X-Ray 04/15/18 00:00 CONCLUSION: Osteomyelitis of the posterior calcaneus with overlying soft tissue swelling and ulceration. No acute fracture. Femur MRI 04/25/18 00:00 CONCLUSION: 1. 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 The collection appears to communicate with the prosthetic component in the proximal femur. 2. Edematous changes are noted along the vastus lateralis and iliotibial band. Hip X-Ray 04/27/18 00:00 CONCLUSION: Hardware removal on the right. Physical Exam: GENERAL: awake and alert, not in respiratory distress. SKIN: Cool and dry. No generalized rash. HEAD: Atraumatic. Normocephalic. No temporal wasting, or tenderness. EYES: [place] conjunctiva. No petechia or hemorrhage. No scleral icterus. No injection or drainage. EARS, NOSE AND THROAT: Mucous membranes pink and moist. No oral lesions noted. No exudate. No oral thrush. NECK: Trachea midline. Supple and not tender, no meningeal signs CARDIOVASCULAR: Regular rate and rhythm. No murmurs, rubs or gallops heard RESPIRATORY: Clear to auscultation. Breath sounds equal bilaterally. No rales , wheezing or rhonchi ABDOMEN: Soft, non-tender, nondistended. Bowel sounds present and normoactive. No guarding. No rebound. No organomegaly. EXTREMITIES: No clubbing, cyanosis, or edema. R foot - has black eschar in posterior ankle/heel with the borders loosening up, has a lot of slough showing at borders, has some purplish boggy area on the heel, odor much less. Has some purplish areas on plantar aspect, dorsum and tip of big toe and second toe. Dressing R hip intact LINE: No evidence of infection Assessment and Plan - Plan Impression Non-healing wound R heel/achilles area with abscess and osteo posterior calcaneus PVD S/P revascularization RLE Infection R femur, has sinus tract on MRI, S/P RAZA,. C/S MRSA GIB Leukocytosis, mild Recommendation Continue IV Vanco Continue Zerbaxa Spoke with patient about amputation but his short term memory is not good and will need to have daughter ingvolved in decision making for him SNF not taking patient at this time due to cost of Zerbaxa Monitor progress D/W CM Spoke with [facility] Med team
[2018-04-29 10:08] LABS: Calcium 7.9 mg/dL (8.5-10.1); Carbon Dioxide 25.7 meq/L (21.0-32.0)
[2018-04-29 10:14] LABS: Potassium 2.9 meq/L (3.5-5.1)
--- NOTE | 2018-04-29 10:22 | P.CONWOU ---
History of Present Illness Service: 04/29/18 Consult date: 04/25/18 Reason for Consult: Management of right hip wound Primary Care Provider: No Primary Care Physician Chief Complaint: Draining right hip wound. [facility] - History History Provided By: Patient, Medical Record - Medical History Medical History: Medical History (Last Reviewed 04/16/18 @ 14:45 by Madalyn Bonilla MD) Weakness Diabetes HLD (hyperlipidemia) MDRO (multiple drug resistant organisms) resistance Onset Date: ~04/11/18 MRSA (methicillin resistant Staphylococcus aureus) PAD (peripheral artery disease) - Surgical History Surgical History: Surgical History (Last Reviewed 04/16/18 @ 14:45 by Madalyn Bonilla MD) History of hip surgery - Family History Family History: Family History (Last Reviewed 04/16/18 @ 14:45 by Madalyn Bonilla MD) Other Diabetes - Tobacco History Smoking Status: Never smoker - Alcohol History How Often Do You Have a Drink Containing Alcohol: Never - Substance Use History Substance History: No History of Abuse - Travel History Recent Travel in the [place] Within the Last 8 Weeks: No Recent Travel Out of the Country Within the Last 8 Weeks: No - Immunization History Tetanus Immunization: Unsure Hx Influenza Vaccine This Season: Yes Medications and Allergies Active Medications: Active Medications Hydrocodone Bitart/Acetaminophen ([place] 10/325) 1 tab PO Q4H [facility] Last Admin: 04/29/18 09:58 Dose: 1 tab Amiodarone HCl (Cordarone) 200 mg PO DAILY [facility] Last Admin: 04/29/18 08:13 Dose: 200 mg Ascorbic Acid (Vitamin C) 500 mg PO BID [facility] Last Admin: 04/29/18 08:13 Dose: 500 mg Collagenase (Santyl Oint) 1 applicatio TOPICAL DAILY [facility] Last Admin: 04/29/18 08:17 Dose: 1 applicatio Dextrose (D50w Vial) 50 ml IV.PUSH UNSCH PRN PRN Reason: PER HYPOGLYCEMIA PROTOCOL Last Admin: 04/24/18 21:44 Dose: 50 ml Diltiazem HCl (Cardizem) 30 mg PO TID [facility] Last Admin: 04/29/18 08:15 Dose: 30 mg Diphenhydramine HCl (Benadryl) 25 mg PO Q6H PRN PRN Reason: ITCHING Ferrous Sulfate (Ferosul) 325 mg PO TID [facility] Last Admin: 04/29/18 08:14 Dose: 325 mg Gabapentin (Neurontin) 600 mg PO TID [facility] Last Admin: 04/29/18 08:13 Dose: 600 mg Gentamicin Sulfate (Gentamicin 0.1% Cream) 1 applicatio TOPICAL BID [facility] Last Admin: 04/29/18 10:01 Dose: 1 applicatio Glucagon (Glucagon Inj) 1 mg OTHER PRN PRN PRN Reason: for Hypoglycemia Protocol Vancomycin HCl 1,000 mg/ (Sodium Chloride) 250 mls @ 250 mls/hr IV.SIG Q12H [facility] Last Infusion: 04/28/18 13:24 Dose: Infused Sodium Chloride (Ns Inj) 500 mls @ 30 mls/hr IV.SIG .Q10H [facility] Last Admin: 04/22/18 00:54 Dose: Not Given Ceftolozane/Tazobactam 1,500 (mg/ Sodium Chloride) 100 mls @ 100 mls/hr IV.SIG Q8H [facility] Last Infusion: 04/29/18 10:02 Dose: Infused Insulin Aspart (Novolog Insulin Correctional Sugar Inj) 0 unit SQ ACHS [facility]; Protocol Last Admin: 04/29/18 08:12 Dose: 3 unit Levothyroxine Sodium (Synthroid) 125 mcg PO DAILY@0600 [facility] Last Admin: 04/29/18 06:03 Dose: 125 mcg Magnesium Oxide (Mag-Ox) 400 mg PO QID [facility] Last Admin: 04/29/18 08:15 Dose: 400 mg Morphine Sulfate (Morphine Inj) 2 mg IV.PUSH Q3H PRN PRN Reason: BREAKTHROUGH PAIN Last Admin: 04/29/18 06:39 Dose: 2 mg Naloxone HCl (Narcan Inj) 0.4 mg IV.PUSH UNSCH PRN PRN Reason: SEE LABEL COMMENTS Pantoprazole Sodium (Protonix) 40 mg PO BID [facility] Last Admin: 04/29/18 08:15 Dose: 40 mg Pharmacy Profile Note (Vancomycin Consult Pharmacy) 1 each OTHER UNSCH PRN PRN Reason: Pharmacy to dose Polyethylene Glycol (Miralax) 17 gm PO DAILY [facility] Last Admin: 04/29/18 08:17 Dose: Not Given Potassium Phos/Sodium Phos (K-Phos Neutral) 250 mg PO QID [facility] Last Admin: 04/29/18 08:14 Dose: 250 mg Pravastatin Sodium (Pravachol) 40 mg PO DAILY [facility] Last Admin: 04/29/18 08:14 Dose: 40 mg Sodium Chloride (Sodium Chloride) 1 gm PO TID [facility] Last Admin: 04/29/18 08:14 Dose: 1 gm Sodium Chloride (Ns Flush) 2 ml IV.FLUSH BID [facility] Last Admin: 04/29/18 08:16 Dose: 2 ml Sodium Chloride (Ns Flush) 2 ml IV.FLUSH PRN PRN PRN Reason: FLUSH AFTER USING IV ACCESS Allergies Allergy/AdvReac Type Severity Reaction Status Date / Time No Known Allergies Allergy Verified 04/08/18 12:35 Home Medications Medication Instructions Recorded Confirmed Type Lactobacillus acidoph-L.bulgar 1 tab PO DAILY 04/08/18 04/11/18 History [Floranex] amiodarone 200 mg PO DAILY 04/08/18 04/11/18 History diltiazem HCl 30 mg PO TID 04/08/18 04/11/18 History ferrous sulfate 325 mg PO TID 04/08/18 04/11/18 History gabapentin 300 mg PO TID 04/08/18 04/11/18 History glipizide 10 mg PO BID 04/08/18 04/11/18 History hydrocodone-acetaminophen 1 tab PO Q6H 04/08/18 04/11/18 History levothyroxine 125 mcg PO DAILY 04/08/18 04/11/18 History magnesium oxide 400 mg PO QID 04/08/18 04/11/18 History meloxicam 7.5 mg PO DAILY 04/08/18 04/11/18 History pravastatin 40 mg PO DAILY 04/08/18 04/11/18 History ranitidine HCl 300 mg PO DAILY 04/08/18 04/11/18 History sitagliptin [Januvia] 100 mg PO DAILY 04/08/18 04/11/18 History sod phos di, mono-K phos mono 1 tab PO QID 04/08/18 04/11/18 History [Phospha 250 Neutral] sodium chloride 1,000 mg PO TID 04/08/18 04/11/18 History ascorbic acid (vitamin C) [Vitamin 500 mg PO BID 04/11/18 04/11/18 History C] insulin aspart U-100 [Novolog 1 - 10 units SUBCUT DIRECTED 04/11/18 04/11/18 History U-100 Insulin aspart] Physical Exam Vital signs: Vital Signs 04/28/18 12:00 04/28/18 16:00 04/28/18 20:00 Temperature 98.9 F 99.0 F 99.8 F H Pulse Rate 68 67 75 Respiratory Rate 18 18 18 Blood Pressure 102/50 L 112/54 L 115/53 L Pulse Oximetry 93 L 99 94 L 04/28/18 23:44 04/29/18 04:00 04/29/18 07:49 Temperature 100.8 F H 97.9 F 97.7 F Pulse Rate 86 69 70 Respiratory Rate 16 17 17 Blood Pressure 133/56 L 115/56 L 128/59 L Pulse Oximetry 93 L 97 95 04/29/18 08:00 Temperature 97.3 F L Pulse Rate 68 Respiratory Rate 20 Blood Pressure 121/59 L Pulse Oximetry 95 Intake & Output 04/28/18 04/29/18 04/29/18 18:59 06:59 18:59 Intake Total 1170 / 1170 100 / 100 100 / 100 Output Total 800 / 800 500 / 500 Balance 370 / 370 -400 / -400 100 / 100 Weight 81.7 kg Intake: IV 450 / 450 100 / 100 100 / 100 Zerbaxa Inj 1,500 MG In NS Inj 200 / 200 100 / 100 100 / 100 100 ML @ 100 mls/hr IV.SIG Q8H [facility] Rx#:[id number] Vancomycin Inj 1,000 MG In NS 250 / 250 Inj 250 ML @ 250 mls/hr IV.SIG Q12H [facility] Rx#:[id number] Oral 720 / 720 Output: Urine 800 / 800 500 / 500 Other: Date of Last Bowel Movement 04/27/18 04/28/18 # Bowel Movements 1 - Urinary Catheter Management Straight Cath placed during this visit: yes Reason for continuing: Other continuation reason Insertion date: 04/11/18 Insertion time: 21:08 Indwelling Urethral Catheter Cath placed during this visit: yes, but has since been removed by the nurse Reason for continuing: Not indwelling catheter Insertion date: 04/11/18 Insertion time: 21:08 Removal date: 04/12/18 Removal time: 11:35 Condom Cath placed during this visit: no Reason for continuing: Not indwelling catheter Wound/Pressure Injury - Additional Information Patient seen on for reevaluation of R hip wound. Patient assessed with VANESA matos and conventional mortgage underwriter. Patient was turned toward the L side to reveal optilock dressing with strike through drainage in place with paper tape. Removed dressing to reveal small wound to R hip, measuring ~0.5cm x ~0.5cm x ~<0.1cm. Wound is noted with copious amounts of cloudy sero-sanguinous drainage that has a slight odor.Periwound is less erythematous with today's assessment, induration is noted to periwound. Wound also noted small amount of hypergranulated tissue. Wound was cleansed with wound cleanser and patted dry. Sprayed periwound with Cavilon spray Applied new optilock dressing in place and secured with bordered gauze. While patient was positioned on L side was able to visualize non blanchable light purple discoloration to intact skin over sacral area, indicating deep tissue injury. Sacral DTI was sprayed with cavilon skin barrier film and left open to air. 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 This was removed by ortho and as a consequence will be followed by ortho. Will sign off and defer the care of the right hip to the ortho team.
--- NOTE | 2018-04-29 10:22 | P.PNOP ---
Subjective Interval history: Patient resting comfortably but appears to be very forgetful Physical Exam Vital signs: Vital Signs 04/28/18 12:00 04/28/18 16:00 04/28/18 20:00 Temperature 98.9 F 99.0 F 99.8 F H Pulse Rate 68 67 75 Respiratory Rate 18 18 18 Blood Pressure 102/50 L 112/54 L 115/53 L Pulse Oximetry 93 L 99 94 L 04/28/18 23:44 04/29/18 04:00 04/29/18 07:49 Temperature 100.8 F H 97.9 F 97.7 F Pulse Rate 86 69 70 Respiratory Rate 16 17 17 Blood Pressure 133/56 L 115/56 L 128/59 L Pulse Oximetry 93 L 97 95 04/29/18 08:00 Temperature 97.3 F L Pulse Rate 68 Respiratory Rate 20 Blood Pressure 121/59 L Pulse Oximetry 95 Intake & Output 04/28/18 04/29/18 04/29/18 18:59 06:59 18:59 Intake Total 1170 / 1170 100 / 100 100 / 100 Output Total 800 / 800 500 / 500 Balance 370 / 370 -400 / -400 100 / 100 Weight 81.7 kg Intake: IV 450 / 450 100 / 100 100 / 100 Zerbaxa Inj 1,500 MG In NS Inj 200 / 200 100 / 100 100 / 100 100 ML @ 100 mls/hr IV.SIG Q8H [facility] Rx#:[id number] Vancomycin Inj 1,000 MG In NS 250 / 250 Inj 250 ML @ 250 mls/hr IV.SIG Q12H [facility] Rx#:[id number] Oral 720 / 720 Output: Urine 800 / 800 500 / 500 Other: Date of Last Bowel Movement 04/27/18 04/28/18 # Bowel Movements 1 Narrative: Awake, alert, mildly confused RLE: dressing saturated as expected. Incisions intact. - Urinary Catheter Management Straight Cath placed during this visit: yes Reason for continuing: Other continuation reason Insertion date: 04/11/18 Insertion time: 21:08 Indwelling Urethral Catheter Cath placed during this visit: yes, but has since been removed by the nurse Reason for continuing: Not indwelling catheter Insertion date: 04/11/18 Insertion time: 21:08 Removal date: 04/12/18 Removal time: 11:35 Condom Cath placed during this visit: no Reason for continuing: Not indwelling catheter Results - Labs CBC & Chem 7: 04/29/18 09:05 04/29/18 09:05 Laboratory Results - last 24 hr 04/28/18 04/28/18 04/28/18 11:12 12:45 16:13 WBC RBC Hgb Hct MCV MCH MCHC RDW Plt Count MPV Prelim Diff (Auto) Neut % (Auto) Lymph % (Auto) [place] % (Auto) Eos % (Auto) Baso % (Auto) Neut # (Auto) Lymph # (Auto) [place] # (Auto) Eos # (Auto) Baso # (Auto) WBC Differential Differential Comment Sodium Potassium Chloride Carbon Dioxide Anion Gap BUN Creatinine Estimated GFR POC Glucose 198 H 240 H Random Glucose Calcium Vancomycin Trough 24.7 H Random Vancomycin 04/28/18 04/29/18 04/29/18 21:07 04:19 07:03 WBC RBC Hgb Hct MCV MCH MCHC RDW Plt Count MPV Prelim Diff (Auto) Neut % (Auto) Lymph % (Auto) [place] % (Auto) Eos % (Auto) Baso % (Auto) Neut # (Auto) Lymph # (Auto) [place] # (Auto) Eos # (Auto) Baso # (Auto) WBC Differential Differential Comment Sodium Potassium Chloride Carbon Dioxide Anion Gap BUN Creatinine 0.73 Estimated GFR Greater than 89 POC Glucose 178 H 229 H Random Glucose Calcium Vancomycin Trough Random Vancomycin 18.0 04/29/18 04/29/18 09:05 09:05 WBC 9.1 RBC 2.05 L Hgb 6.5 L* Hct 19.7 L* MCV 96.0 MCH 31.9 MCHC 33.2 RDW 16.8 Plt Count 328 MPV 7.1 Prelim Diff (Auto) Pharmacy Clinical Specialist Neut % (Auto) 70.0 Lymph % (Auto) 13.8 [place] % (Auto) 9.5 H Eos % (Auto) 5.2 H Baso % (Auto) 1.5 Neut # (Auto) 6.4 Lymph # (Auto) 1.3 [place] # (Auto) 0.9 Eos # (Auto) 0.5 H Baso # (Auto) 0.1 WBC Differential . Differential Comment Auto diff final Sodium 141 Potassium 2.9 L* Chloride 106 Carbon Dioxide 25.7 Anion Gap 9 BUN 17 Creatinine 0.88 Estimated GFR 82 L POC Glucose Random Glucose 157 H Calcium 7.9 L Vancomycin Trough Random Vancomycin Microbiology 04/27/18 12:43 Wound - Thigh Acid Fast Bacilli Smear - Final No acid fast bacilli seen 04/27/18 12:43 Wound - Thigh Gram Stain - Final 04/27/18 12:43 Wound - Thigh Wound Culture - Preliminary No growth in 48 hours 04/27/18 12:43 Wound - Thigh Fungal Smear - Final No fungal elements seen Assessment and Plan - Assessment and Plan 87yo M POD#2 s/p I&D R hip with hardware removal 1. TTWB RLE 2. Dressing changes daily and as needed. Incisions will have drainage for likely several days to even a couple of weeks as antibiotic beads were placed along with removal of hardware and debridement of the femur leaving an open femoral canal. This should slowly stop over several days to weeks. Dressing changes as needed. 3. Anemia - will defer to primary team for transfusion 4. Antibiotics per ID for chronic osteomyelitis 5. Plan for patient to follow-up in my office in 2 weeks.
--- NOTE | 2018-04-29 12:52 | P.PNFP ---
Subjective Interval history: Patient states he is having some leg pain that radiates into his foot. He is eating well. Denies any change in vision or headaches or dizziness. Patient anxious to go home to his nursing facility. Patient sleeping well overnight. Patient using incentive spirometry and demonstrated he could reach to 1250. <Tamiko Cooper C - 04/29/18 13:08> Results - Labs Result diagrams: 04/29/18 09:05 04/29/18 09:05 <Saji Johnson - 04/29/18 17:20> Abnormal lab results 04/28/18 04/29/18 04/29/18 Range/Units 21:07 07:03 09:05 RBC 2.05 L (4.50-5.90) mil/mm3 Hgb 6.5 L* (13.0-17.0) gm/dL Hct 19.7 L* (39.0-51.0) % [place] % (Auto) 9.5 H (0.0-8.0) % Eos % (Auto) 5.2 H (0.0-4.0) % Eos # (Auto) 0.5 H (0.0-0.4) th/mm3 Potassium (3.5-5.1) meq/L Estimated GFR (>89) mL/min POC Glucose 178 H 229 H (68-110) mg/dl Random Glucose (74-106) mg/dL Calcium (8.5-10.1) mg/dL C-Reactive Protein (0.00-0.30) mg/dL MTS Gel Crossmatch 04/29/18 04/29/18 04/29/18 Range/Units 09:05 09:05 11:26 RBC (4.50-5.90) mil/mm3 Hgb (13.0-17.0) gm/dL Hct (39.0-51.0) % [place] % (Auto) (0.0-8.0) % Eos % (Auto) (0.0-4.0) % Eos # (Auto) (0.0-0.4) th/mm3 Potassium 2.9 L* (3.5-5.1) meq/L Estimated GFR 82 L (>89) mL/min POC Glucose 153 H (68-110) mg/dl Random Glucose 157 H (74-106) mg/dL Calcium 7.9 L (8.5-10.1) mg/dL C-Reactive Protein 12.00 H (0.00-0.30) mg/dL MTS Gel Crossmatch 04/29/18 04/29/18 Range/Units 13:51 16:45 RBC (4.50-5.90) mil/mm3 Hgb (13.0-17.0) gm/dL Hct (39.0-51.0) % [place] % (Auto) (0.0-8.0) % Eos % (Auto) (0.0-4.0) % Eos # (Auto) (0.0-0.4) th/mm3 Potassium (3.5-5.1) meq/L Estimated GFR (>89) mL/min POC Glucose 187 H (68-110) mg/dl Random Glucose (74-106) mg/dL Calcium (8.5-10.1) mg/dL C-Reactive Protein (0.00-0.30) mg/dL MTS Gel Crossmatch See Detail Short CBC 04/29/18 Range/Units 09:05 WBC 9.1 (4.0-11.0) th/mm3 Hgb 6.5 L* (13.0-17.0) gm/dL Hct 19.7 L* (39.0-51.0) % Plt Count 328 (150-450) th/mm3 BMP 04/29/18 04/29/18 04:19 09:05 Sodium 141 Potassium 2.9 L* Chloride 106 Carbon Dioxide 25.7 BUN 17 Creatinine 0.73 0.88 Calcium 7.9 L <YoungSaji L - 04/29/18 17:20> Abnormal lab results 04/28/18 04/28/18 04/28/18 Range/Units 12:45 16:13 21:07 RBC (4.50-5.90) mil/mm3 Hgb (13.0-17.0) gm/dL Hct (39.0-51.0) % [place] % (Auto) (0.0-8.0) % Eos % (Auto) (0.0-4.0) % Eos # (Auto) (0.0-0.4) th/mm3 Potassium (3.5-5.1) meq/L Estimated GFR (>89) mL/min POC Glucose 240 H 178 H (68-110) mg/dl Random Glucose (74-106) mg/dL Calcium (8.5-10.1) mg/dL C-Reactive Protein (0.00-0.30) mg/dL Vancomycin Trough 24.7 H (5.0-10.0) mcg/mL 04/29/18 04/29/18 04/29/18 Range/Units 07:03 09:05 09:05 RBC 2.05 L (4.50-5.90) mil/mm3 Hgb 6.5 L* (13.0-17.0) gm/dL Hct 19.7 L* (39.0-51.0) % [place] % (Auto) 9.5 H (0.0-8.0) % Eos % (Auto) 5.2 H (0.0-4.0) % Eos # (Auto) 0.5 H (0.0-0.4) th/mm3 Potassium 2.9 L* (3.5-5.1) meq/L Estimated GFR 82 L (>89) mL/min POC Glucose 229 H (68-110) mg/dl Random Glucose 157 H (74-106) mg/dL Calcium 7.9 L (8.5-10.1) mg/dL C-Reactive Protein (0.00-0.30) mg/dL Vancomycin Trough (5.0-10.0) mcg/mL 04/29/18 04/29/18 Range/Units 09:05 11:26 RBC (4.50-5.90) mil/mm3 Hgb (13.0-17.0) gm/dL Hct (39.0-51.0) % [place] % (Auto) (0.0-8.0) % Eos % (Auto) (0.0-4.0) % Eos # (Auto) (0.0-0.4) th/mm3 Potassium (3.5-5.1) meq/L Estimated GFR (>89) mL/min POC Glucose 153 H (68-110) mg/dl Random Glucose (74-106) mg/dL Calcium (8.5-10.1) mg/dL C-Reactive Protein 12.00 H (0.00-0.30) mg/dL Vancomycin Trough (5.0-10.0) mcg/mL Short CBC 04/29/18 Range/Units 09:05 WBC 9.1 (4.0-11.0) th/mm3 Hgb 6.5 L* (13.0-17.0) gm/dL Hct 19.7 L* (39.0-51.0) % Plt Count 328 (150-450) th/mm3 BMP 04/29/18 04/29/18 04:19 09:05 Sodium 141 Potassium 2.9 L* Chloride 106 Carbon Dioxide 25.7 BUN 17 Creatinine 0.73 0.88 Calcium 7.9 L <Tamiko Cooper C - 04/29/18 12:52> Physical Exam Vital signs: Vital Signs 04/28/18 20:00 04/28/18 23:44 04/29/18 04:00 Temperature 99.8 F H 100.8 F H 97.9 F Pulse Rate 75 86 69 Respiratory Rate 18 16 17 Blood Pressure 115/53 L 133/56 L 115/56 L Pulse Oximetry 94 L 93 L 97 04/29/18 07:49 04/29/18 08:00 04/29/18 11:45 Temperature 97.7 F 97.3 F L 98.3 F Pulse Rate 70 68 63 Respiratory Rate 17 20 18 Blood Pressure 128/59 L 121/59 L 101/53 L Pulse Oximetry 95 95 96 04/29/18 16:00 Temperature 98.1 F Pulse Rate 64 Respiratory Rate 20 Blood Pressure 101/53 L Pulse Oximetry 97 Intake & Output 04/28/18 04/29/18 04/29/18 18:59 06:59 18:59 Intake Total 1170 / 1170 100 / 100 590 / 590 Output Total 800 / 800 500 / 500 Balance 370 / 370 -400 / -400 590 / 590 Weight 81.7 kg Intake: IV 450 / 450 100 / 100 350 / 350 Zerbaxa Inj 1,500 MG In NS Inj 200 / 200 100 / 100 100 / 100 100 ML @ 100 mls/hr IV.SIG Q8H [facility] Rx#:[id number] Vancomycin Inj 1,000 MG In NS 250 / 250 Inj 250 ML @ 250 mls/hr IV.SIG Q12H ACE Rx#:[id number] Vancomycin Inj 1,250 MG In NS 250 / 250 Inj 250 ML @ 262.5 mls/hr IV. SIG Q24H ACE Rx#:[id number] Oral 720 / 720 240 / 240 Output: Urine 800 / 800 500 / 500 Other: Date of Last Bowel Movement 04/27/18 04/28/18 # Bowel Movements 1 <Saji Johnson L - 04/29/18 17:20> Vital Signs 04/28/18 16:00 04/28/18 20:00 04/28/18 23:44 Temperature 99.0 F 99.8 F H 100.8 F H Pulse Rate 67 75 86 Respiratory Rate 18 18 16 Blood Pressure 112/54 L 115/53 L 133/56 L Pulse Oximetry 99 94 L 93 L 04/29/18 04:00 04/29/18 07:49 04/29/18 08:00 Temperature 97.9 F 97.7 F 97.3 F L Pulse Rate 69 70 68 Respiratory Rate 17 17 20 Blood Pressure 115/56 L 128/59 L 121/59 L Pulse Oximetry 97 95 95 04/29/18 11:45 Temperature 98.3 F Pulse Rate 63 Respiratory Rate 18 Blood Pressure 101/53 L Pulse Oximetry 96 Intake & Output 04/28/18 04/29/18 04/29/18 18:59 06:59 18:59 Intake Total 1170 / 1170 100 / 100 100 / 100 Output Total 800 / 800 500 / 500 Balance 370 / 370 -400 / -400 100 / 100 Weight 81.7 kg Intake: IV 450 / 450 100 / 100 100 / 100 Zerbaxa Inj 1,500 MG In NS Inj 200 / 200 100 / 100 100 / 100 100 ML @ 100 mls/hr IV.SIG Q8H ACE Rx#:[id number] Vancomycin Inj 1,000 MG In NS 250 / 250 Inj 250 ML @ 250 mls/hr IV.SIG Q12H ACE Rx#:[id number] Oral 720 / 720 Output: Urine 800 / 800 500 / 500 Other: Date of Last Bowel Movement 04/27/18 04/28/18 # Bowel Movements 1 <Tamiko Cooper C - 04/29/18 12:52> Narrative: GENERAL: Pleasant elderly male thin, appears malnourished. SKIN: Cool and dry. No generalized rash. Has some scattered ecchymoses in his UE. HEAD: Atraumatic. Normocephalic. No temporal wasting, or tenderness. EYES: Anisocoria and left eye, EOMI CARDIOVASCULAR: Regular rate and rhythm. No murmurs, rubs or gallops heard RESPIRATORY: Clear to auscultation. Breath sounds equal bilaterally. No rales , wheezing or rhonchi ABDOMEN: Soft, non-tender, nondistended. No guarding. No rebound. No organomegaly. EXTREMITIES: No edema. Atrophic muscular changes in both legs bilaterally. Right heel covered in bandage. Left foot bandage dry and clean. Patient also has wound on right thigh that is bandaged. Dressing in place, clean and dry. Patient able to move toes bilaterally and no decreased sensation. Weak pulse palpated on right popliteal artery. <Tamiko Cooper 04/29/18 13:08> - Urinary Catheter Management Condom Cath placed during this visit: no <Saji Johnson 04/29/18 17:20> no <Tamiko Cooper 04/29/18 13:08> Reason for continuing: Not indwelling catheter <Tamiko Cooper 04/29/18 12: 52> Indwelling Urethral Catheter Cath placed during this visit: no <Saji Johnson 04/29/18 17:20> yes, but has since been removed by the nurse <Tamiko Cooper 04/29/18 13:08> Reason for continuing: Not indwelling catheter <Tamiko Cooper 04/29/18 12: 52> Insertion date: 04/11/18 <Tamiko Cooper 04/29/18 12:52> Insertion time: 21:08 <Tamiko Cooper 04/29/18 12:52> Removal date: 04/12/18 <Tamiko Cooper 04/29/18 12:52> Removal time: 11:35 <Tamiko Cooper 04/29/18 12:52> Straight Cath placed during this visit: no <Saji Johnson 04/29/18 17:20> yes <Tamiko Cooper 04/29/18 13:08> Reason for continuing: Other continuation reason <Tamiko Cooper 04/29/18 12:52> Insertion date: 04/11/18 <Tamiko Cooper 04/29/18 12:52> Insertion time: 21:08 <Tamiko Cooper 04/29/18 12:52> Assessment and Plan - Assessment (1) Anemia Code(s): D64.9 - Anemia, unspecified Status: Acute (2) Osteomyelitis of ankle Code(s): M86.9 - Osteomyelitis, unspecified Status: Acute (3) Infection associated with internal hip prosthesis Code(s): T84.59XA - Infection and inflammatory reaction due to other internal joint prosthesis, initial encounter; Z96.649 - Presence of unspecified artificial hip joint Status: Acute (4) Chronic wound of extremity Status: Chronic (5) MRSA (methicillin resistant staph aureus) culture positive Code(s): Z22.322 - Carrier or suspected carrier of Methicillin resistant Staphylococcus aureus Status: Acute (6) PAD (peripheral artery disease) Code(s): I73.9 - Peripheral vascular disease, unspecified Status: Chronic (7) Bandemia Code(s): D72.825 - Bandemia Status: Resolved (8) Hydronephrosis Code(s): N13.30 - Unspecified hydronephrosis Status: Acute (9) HTN (hypertension) Code(s): I10 - Essential (primary) hypertension Status: Acute (10) Diabetes Code(s): E11.9 - Type 2 diabetes mellitus without complications Status: Acute (11) Malnutrition Code(s): E46 - Unspecified protein-calorie malnutrition Status: Acute (12) Anisocoria Code(s): H57.02 - Anisocoria Status: Acute (13) Nutrition, metabolism, and development symptoms Code(s): R63.8 - Other symptoms and signs concerning food and fluid intake Status: Acute <Saji Johnson - 04/29/18 17:20> (1) Anemia Code(s): D64.9 - Anemia, unspecified Status: Acute Plan: On admission on 04/11 patient found to have hemoglobin of 6.6 and transfused 2 units of packed RBC. Also had tarry stools and underwent endoscopy and colonoscopy which were benign except small ulcer in the rectum. Placed on PPI and iron. H and H trended -Today's Hbg 6.5 down from 7.5 -transfused one unit of PRBC (2) Osteomyelitis of ankle Code(s): M86.9 - Osteomyelitis, unspecified Status: Acute Plan: MRI showed evidence of osteomyelitis of right ankle which likely has been brewing for some time in this diabetic patient with PAD with chronic lower- extremity non-healing ulcers Culture positive for MRSA at different site (right thigh wound) Wound Cx of right ankle showed Pseudomonas as well as multidrug-resistant Proteus and group D enterococcus Blood cultures NGTD Afebrile Podiatry consulted, appreciate assistance; * plan for patient to have calcanectomy on 04/26 however due to patient's inability to recall presurgery discussion when seen by podiatry the morning of 04/26 Dr. Urena will no longer be performing calcanectomy procedure. * Recommends: betadine wet to dry daily and if foot/heel becomes acutely infected rec below-knee amputation of right lower extremity as patient is unable to care for himself or able to mentally process limb salvage procedure options. In addition the likelihood of failure was already high due to the low vascularity to the right lower limb. * Podiatry has signed off. Vascular surgery consulted * s/p [employer]ER of popliteal stenosis on 04/24 * Anterior tibial, posterior tibia and peritoneal artery occluded Lower extremity pulses appreciated Via Doppler. Right popliteal pulse appreciated on exam * ID consulted, appreciate recs * Continue vancomycin * Continue Zerbaxa * Wound care consulted, appreciate recs * See note from 04/25 * follow recommendations * Pain management with [place] scheduled, gabapentin, morphine for breakthrough pain (3) Infection associated with internal hip prosthesis Code(s): T84.59XA - Infection and inflammatory reaction due to other internal joint prosthesis, initial encounter; Z96.649 - Presence of unspecified artificial hip joint Status: Acute Plan: Wound care noted to patient's right hip wound to be more purulent and fluctuant yesterday Right femur MRI was ordered and results showed: -Osseous cutaneous fistulous tract extending from the greater trochanter to the skin surface with small subcutaneous fluid collection identified. The collection appears to communicate with the prosthetic component in the proximal femur. -. Edematous changes are noted along the vastus lateralis and iliotibial band. -Patient temperature on 04/28: BCX pending Follow wound care recommendations for care Orthopedic consultation: 04/27 irrigation and debridement with hardware removal and placement of antibiotic beads Recommendation: "TTWB RLE and Dressing changes daily and as needed. Incisions will have drainage for likely several days to even couple of weeks as antibiotic beads were placed along with removal of hardware and debridement of the femur leaving an open femoral canal. This should slowly stop over several days to weeks. Dressing changes as needed.Antibiotics per ID for chronic osteomyelitis. Plan for patient to follow-up in my office in 2 weeks" (4) Chronic wound of extremity Status: Chronic Plan: Patient currently follows up with wound care as an outpatient Right hip wound, super observant dressing daily Skin tear lower left extremity, Santyl covered and dry dressing daily Right heel wound, apply gentamicin cream twice daily, see above plan for associated osteomyelitis Wound care consulted, appreciate recommendations * Cleanse wound to R Achilles heel with normal saline only and pat dry. Apply gentamicin mixed with Santyl 50/ 50 and apply to wound bed * Cover with ABD pad, and secure with rolled gauze and tape. Change dressing daily, until seen by podiatry. * Cleanse wound to R hip see updated note from 04/25 * Cleanse wound to L posterior lower leg with normal saline and pat dry. Apply optifoam gentle 4x4 dressing change dressing every 3 days or PRN if saturated or dislodged. (5) MRSA (methicillin resistant staph aureus) culture positive Code(s): Z22.322 - Carrier or suspected carrier of Methicillin resistant Staphylococcus aureus Status: Acute Plan: This patient suffers from chronic nonhealing wounds likely secondary to peripheral arterial disease and DM. Patient had wound from right thigh cultured which ultimately grew MRSA. -Monitor for fevers and signs of systemic illness -Antibiotic therapy as above (6) PAD (peripheral artery disease) Code(s): I73.9 - Peripheral vascular disease, unspecified Status: Chronic Plan: s/p recent right LE arterectomy. s/p vascular procedure as above on 04/24 (7) Bandemia Code(s): D72.825 - Bandemia Status: Resolved Plan: Resolved, likely due to osteomyelitis. See above plan. (8) Hydronephrosis Code(s): N13.30 - Unspecified hydronephrosis Status: Acute Plan: Abdominal pelvis CT demonstrates development of moderate left hydronephrosis and hydroureter without ureteral obstruction. Also demonstrates stool ball in the rectum large amount of stool throughout the colon. Patient had a bladder scan 04/11 that revealed of a residual volume of 231 mL. Patient currently voiding well. Patient has no CVA tenderness. Hammer in place UA on 04/26 : negative for infection - Continue to monitor I's and O's. (9) HTN (hypertension) Code(s): I10 - Essential (primary) hypertension Status: Acute Plan: Continue Cardizem and amiodarone (10) Diabetes Code(s): E11.9 - Type 2 diabetes mellitus without complications Status: Acute Plan: Held home glipizide, Januvia Accu-Cheks Low-dose sliding scale Hypoglycemia protocol in place (11) Malnutrition Code(s): E46 - Unspecified protein-calorie malnutrition Status: Acute Plan: This patient appears thin and possibly malnourished. Patient has significant muscle atrophy in arms and legs that are partially consistent with age and lack of activity. -Begin diet mentation with Ensure (12) Anisocoria Code(s): H57.02 - Anisocoria Status: Acute Plan: Most likely chronic in view of no other alarming ophthalmologic signs/symptoms Can follow up with Ophthalmology outpatient (13) Nutrition, metabolism, and development symptoms Code(s): R63.8 - Other symptoms and signs concerning food and fluid intake Status: Acute Plan: Fluids: per PO Diet: Diabetic supplements with protein shake Electrolytes: monitor and replete as needed DVT prophylaxis: Contraindicated due to upper GI bleed Disposition: Back to SNF when ID has final antibiotic recommendations Discussed with Dr. Johnson <Tamiko Cooper - 04/29/18 12:58> - Attending Attestation The exam, history, and the medical decision-making described in the above note were completed with the assistance of the resident physician. I reviewed and agree with the findings presented. I attest that I had a [id number] encounter with the patient on the same day, and personally performed and documented my assessment and findings in the medical record. Had acute drop in hemoglobin, has been trending down over last several days. Will transfuse today and follow up hemoglobin/hematocrit. Also with significantly low potassium this morning, will replace and check again tomorrow. <Saji Johnson - 04/29/18 17:20> <Tamiko Cooper - Last Filed: 04/29/18 12:58> (2) Osteomyelitis of ankle Qualifiers: Osteomyelitis type: other chronic Laterality: right Qualified Code(s): M86.671 - Other chronic osteomyelitis, right ankle and foot (8) Hydronephrosis Qualifiers: Hydronephrosis type: unspecified Qualified Code(s): N13.30 - Unspecified hydronephrosis <Saji Johnson - Last Filed: 04/29/18 17:20> (2) Osteomyelitis of ankle Qualifiers: Osteomyelitis type: other chronic Laterality: right Qualified Code(s): M86.671 - Other chronic osteomyelitis, right ankle and foot (8) Hydronephrosis Qualifiers: Hydronephrosis type: unspecified Qualified Code(s): N13.30 - Unspecified hydronephrosis <Tamiko Cooper - Last Filed: 04/29/18 12:58> (2) Osteomyelitis of ankle Qualifiers: Osteomyelitis type: other chronic Laterality: right Qualified Code(s): M86.671 - Other chronic osteomyelitis, right ankle and foot (8) Hydronephrosis Qualifiers: Hydronephrosis type: unspecified Qualified Code(s): N13.30 - Unspecified hydronephrosis <Saji Johnson - Last Filed: 04/29/18 17:20> (2) Osteomyelitis of ankle Qualifiers: Osteomyelitis type: other chronic Laterality: right Qualified Code(s): M86.671 - Other chronic osteomyelitis, right ankle and foot (8) Hydronephrosis Qualifiers: Hydronephrosis type: unspecified Qualified Code(s): N13.30 - Unspecified hydronephrosis
[2018-04-29] MEDS: Vancomycin Inj 1,250 MG in Sodium Chlor 0.9% Inj 250 ML IV.SIG SCH (14:26)
[2018-04-30] MEDS: SODIUM CHLOR 0.9% IV.SIG SCH ×3 (02:01→21:55)
[2018-04-30] MEDS: TAZOBACTAM IV.SIG SCH ×3 (02:01→21:55)
[2018-04-30] MEDS: CEFTOLOZANE IV.SIG SCH ×3 (02:01→21:55)
[2018-04-30 03:23] LABS: Anion Gap 10 meq/L (5-15); Blood Urea Nitrogen 20 mg/dL (7-18); Calcium 7.9 mg/dL (8.5-10.1); Chloride 107 meq/L (98-107); Glomerular Filtration Rate Greater Than 89 mL/min (>89); Glucose,Random 140 mg/dL (74-106); Potassium 3.6 meq/L (3.5-5.1); Sodium 141 meq/L (136-145)
[2018-04-30 03:58] LABS: Baso # (Auto) 0.1 th/mm3 (0.0-0.2); Baso % (Auto) 1.3 % (0.0-2.0); Eos # (Auto) 0.5 th/mm3 (0.0-0.4); Eos % (Auto) 5.1 % (0.0-4.0); Lymph # (Auto) 1.1 th/mm3 (1.0-4.8); Mean Corpuscular HGB Conc 33.6 % (32.0-36.0); Mean Corpuscular Hemoglobin 31.6 pg (27.0-34.0); Mean Corpuscular Volume 93.9 fL (80.0-100.0); Mean Platelet Volume 7.1 fL (7.0-11.0); Mono # (Auto) 0.7 th/mm3 (0.0-0.9); Neut # (Auto) 8.2 th/mm3 (1.8-7.7); Neut % (Auto) 76.6 % (16.0-70.0); Platelet Count 268 th/mm3 (150-450); Red Blood Count 1.92 mil/mm3 (4.50-5.90); White Blood Count 10.7 th/mm3 (4.0-11.0)
[2018-04-30 04:01] LABS: Hemoglobin 6.1 gm/dL (13.0-17.0)
[2018-04-30] MEDS: Morphine Inj 4 MG/ML Vial IV.PUSH PRN ×3 (04:30→23:41)
[2018-04-30] MEDS: Levothyroxine 125 MCG Tablet PO SCH (06:05)
[2018-04-30 08:14] LABS: Eosinophils 3 % (0-4); Lymphocytes 22 % (9-44); Monocytes 3 % (0-8)
[2018-04-30 08:15] LABS: Dimorphic RBC Present; Platelet Estimate Normal (Normal); Platelet Morphology Clumped (Normal)
[2018-04-30] MEDS ORDERED: Sod Chloride 0.9% Inj 500 ML IV.SIG ONE (08:48)
[2018-04-30] MEDS: Potassium Phos/Sodium Phos 250 MG Tablet PO SCH ×4 (09:07→21:29)
[2018-04-30] MEDS: Amiodarone 200 MG Tablet PO SCH (09:07)
[2018-04-30] MEDS: Sodium Chloride 1 GM Tablet PO SCH ×3 (09:08→21:31)
[2018-04-30] MEDS: Polyethylene Glycol 3350 17 GM Packet PO SCH (09:08)
[2018-04-30] MEDS: Magnesium Oxide 400 MG Tablet PO SCH ×3 (09:08→18:41)
[2018-04-30] MEDS: Gabapentin 300 MG Capsule PO SCH ×3 (09:08→18:40)
[2018-04-30] MEDS: dilTIAZem 30 MG Tablet PO SCH ×2 (09:08→12:14)
[2018-04-30] MEDS: Gentamicin 0.1% Cream 15 GM Cream TOPICAL SCH ×2 (09:08→22:22)
[2018-04-30] MEDS: Ascorbic Acid 500 MG Tablet PO SCH ×2 (09:08→21:30)
[2018-04-30] MEDS: Ferrous Sulfate 325 MG Tablet PO SCH ×3 (09:08→18:41)
[2018-04-30] MEDS: Collagenase Oint 30 GM Tube TOPICAL SCH (09:09)
[2018-04-30] MEDS: Insulin NovoLOG Aspart Correctional Sugar Inj SQ SCH ×4 (09:09→22:03)
--- NOTE | 2018-04-30 09:42 | P.PNID ---
Subjective Remarks: Patient is an 87-year-old male, admitted to the hospital for evaluation of low hemoglobin. There was apparently episodes of black tarry stools. He had a GI workup on this admission, and he seemed to be stable from the GI standpoint. Patient apparently has had a wound on his right heel Achilles area. He had vascular workup, and underwent aortogram around April 08, and had atherectomy of the right SFA and popliteal area. Patient could not really tell me how long he has had the open wound. He has pain when he walks. There is been no fever and chills. On this admission podiatry was consulted. 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 There is a foul odor coming out from that right foot, and patient really could not notice any difference. Since admission he has not been febrile. He has significant pain whenever his RLE gets moved. There was a culture from a right thigh wound that has MRSA. I do not see any culture from the right foot. His initial WBC was around 14,000 and that is down to normal. Blood cultures are negative. Infectious disease consultation has been requested to evaluate the patient. Notes reviewed Temps ok, last fever 04/28 Had surgery R hip 04/27 - removal of hardware Intraop C/S negative C/O pain R hip and R foot Underwent revascularization last week C/S from ankle with MDR PSAE, Proteus and Enterococcus C/S R thigh MRSA (wound) SNF will not take patient due to cost of Zerbaxa Hgb down to 6 this morning Patient is very forgetful and has poor short term memory Antibiotics: Vancomycin Zerbaxa Lines: PIV Past Medical History: Weakness Diabetes HLD (hyperlipidemia) MDRO (multiple drug resistant organisms) resistance Onset Date: ~04/11/18 MRSA (methicillin resistant Staphylococcus aureus) PAD (peripheral artery disease) Hip surgery Allergies/Adverse Reactions: Allergies No Known Allergies Allergy (Verified 04/08/18 12:35) Objective Vital Signs 04/29/18 11:45 04/29/18 16:00 04/29/18 20:00 Temperature 98.3 F 98.1 F 98.5 F Pulse Rate 63 64 61 Respiratory Rate 18 20 16 Blood Pressure 101/53 L 101/53 L 105/54 L Pulse Oximetry 96 97 95 04/30/18 00:00 04/30/18 01:30 04/30/18 04:00 Temperature 98.1 F 98.1 F 97.7 F Pulse Rate 77 76 63 Respiratory Rate 18 18 16 Blood Pressure 99/50 L 111/53 L 109/55 L Pulse Oximetry 94 L 95 96 04/30/18 05:57 04/30/18 06:13 04/30/18 08:00 Temperature 98.3 F 98.4 F 98.5 F Pulse Rate 66 61 63 Respiratory Rate 18 18 17 Blood Pressure 112/60 118/59 L 134/63 Pulse Oximetry 95 97 95 Intake & Output 04/29/18 04/30/18 04/30/18 18:59 06:59 18:59 Intake Total 690 / 690 100 / 100 Output Total 550 / 550 Balance 690 / 690 -450 / -450 Weight 81.9 kg Intake: IV 450 / 450 100 / 100 Zerbaxa Inj 1,500 MG In NS Inj 200 / 200 100 / 100 100 ML @ 100 mls/hr IV.SIG Q8H [facility] Rx#:[id number] Vancomycin Inj 1,250 MG In NS 250 / 250 Inj 250 ML @ 262.5 mls/hr IV. SIG Q24H [facility] Rx#:[id number] Oral 240 / 240 Intake (Blood Product) Amt 0 / 0 Rbc As-3 Leukoreduced Unit 0 / 0 [id number] Rbc As-3 Leukoreduced Unit 0 / 0 [id number] Output: Urine 550 / 550 Other: Date of Last Bowel Movement 04/28/18 04/30/18 # Bowel Movements 1 04/27/18 12:43 Wound - Thigh Gram Stain - Final 04/27/18 12:43 Wound - Thigh Wound Culture - Preliminary No growth in 48 hours 04/29/18 09:05 Blood - Peripheral Aerobic Blood Culture - Pending 04/29/18 09:05 Blood - Peripheral Anaerobic Blood Culture - Pending 04/29/18 09:10 Blood - Peripheral Aerobic Blood Culture - Pending 04/29/18 09:10 Blood - Peripheral Anaerobic Blood Culture - Pending 04/27/18 12:43 Wound - Thigh Acid Fast Bacilli Smear - Final No acid fast bacilli seen 04/27/18 12:43 Wound - Thigh Mycobacterial Culture - Pending 04/27/18 12:43 Wound - Thigh Fungal Smear - Final No fungal elements seen 04/27/18 12:43 Wound - Thigh Fungal Culture - Pending Lab - Hematology Results 04/29/18 04/30/18 09:05 03:46 WBC 9.1 10.7 RBC 2.05 L 1.92 L Hgb 6.5 L* 6.1 L* Hct 19.7 L* 18.0 L* MCV 96.0 93.9 MCH 31.9 31.6 MCHC 33.2 33.6 RDW 16.8 17.0 Plt Count 328 268 MPV 7.1 7.1 Prelim Diff (Auto) [employer] Team Lead Slide review pending Neut % (Auto) 70.0 76.6 H Lymph % (Auto) 13.8 10.0 [place] % (Auto) 9.5 H 7.0 Eos % (Auto) 5.2 H 5.1 H Baso % (Auto) 1.5 1.3 Neut # (Auto) 6.4 8.2 H Lymph # (Auto) 1.3 1.1 [place] # (Auto) 0.9 0.7 Eos # (Auto) 0.5 H 0.5 H Baso # (Auto) 0.1 0.1 WBC Differential . Manual diff final Seg Neuts % (Manual) 65 Band Neuts % (Manual) 7 H Lymphocytes % (Manual) 22 Monocytes % (Manual) 3 Eosinophils % (Manual) 3 Abs Neuts (Manual) 7.7 Differential Comment Auto diff final . Platelet Estimate Normal Platelet Morphology Clumped H Dimorphic RBCs Present H Lab - Chemistry Results 04/28/18 04/28/18 04/28/18 11:12 16:13 21:07 Sodium Potassium Chloride Carbon Dioxide Anion Gap BUN Creatinine Estimated GFR POC Glucose 198 H 240 H 178 H Random Glucose Calcium C-Reactive Protein 04/29/18 04/29/18 04/29/18 04:19 07:03 09:05 Sodium 141 Potassium 2.9 L* Chloride 106 Carbon Dioxide 25.7 Anion Gap 9 BUN 17 Creatinine 0.73 0.88 Estimated GFR Greater than 89 82 L POC Glucose 229 H Random Glucose 157 H Calcium 7.9 L C-Reactive Protein 04/29/18 04/29/18 04/29/18 09:05 11:26 16:45 Sodium Potassium Chloride Carbon Dioxide Anion Gap BUN Creatinine Estimated GFR POC Glucose 153 H 187 H Random Glucose Calcium C-Reactive Protein 12.00 H 04/29/18 04/30/18 21:51 02:52 Sodium 141 Potassium 3.6 Chloride 107 Carbon Dioxide 24.0 Anion Gap 10 BUN 20 H Creatinine 0.69 Estimated GFR Greater than 89 POC Glucose 206 H Random Glucose 140 H Calcium 7.9 L C-Reactive Protein Imaging: ITS Impressions Abdomen/Pelvis CT 04/11/18 11:57 CONCLUSION: 1. There is marked destructive changes of the right proximal femur identified. The trochanteric nail hardware now extends beyond the femoral head cortex partially destroyed. There is also a patchy/permeative appearance of the shield tuberosity without obvious fracture. 2. Stool ball in the rectum and a large amount of stool throughout the colon. 3. Nonobstructing left renal calculi and left renal cyst. 4. Interval development of moderate left hydronephrosis and hydroureter without obvious obstructing stone. Head CT 04/11/18 11:59 CONCLUSION: 1. Stable appearance of the brain. . Ankle MRI 04/15/18 00:00 CONCLUSION: 1. Osteomyelitis of the posterior calcaneus with a near complete tear of the distal Achilles tendon. There is overlying cellulitis and subcutaneous edema with a small abscess adjacent to the distal Achilles tendon as measured above. There is edematous change on the plantar aspect of the foot with a tenosynovitis as above. No acute fracture identified. Mild bone edema tibia, nonspecific. Ankle X-Ray 04/15/18 00:00 CONCLUSION: Osteomyelitis of the posterior calcaneus with overlying soft tissue swelling and ulceration. No acute fracture. Femur MRI 04/25/18 00:00 CONCLUSION: 1. 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 The collection appears to communicate with the prosthetic component in the proximal femur. 2. Edematous changes are noted along the vastus lateralis and iliotibial band. Hip X-Ray 04/27/18 00:00 CONCLUSION: Hardware removal on the right. Physical Exam: GENERAL: awake and alert, not in respiratory distress. SKIN: Cool and dry. No generalized rash. EYES: Somis conjunctiva. No petechia or hemorrhage. No scleral icterus. No injection or drainage. EARS, NOSE AND THROAT: Mucous membranes pink and moist. No oral lesions noted. No exudate. No oral thrush. NECK: Trachea midline. Supple and not tender, no meningeal signs CARDIOVASCULAR: Regular rate and rhythm. No murmurs, rubs or gallops heard RESPIRATORY: Clear to auscultation. Breath sounds equal bilaterally. No rales , wheezing or rhonchi ABDOMEN: Soft, non-tender, nondistended. Bowel sounds present and normoactive. No guarding. No rebound. No organomegaly. EXTREMITIES: No clubbing, cyanosis, or edema. R foot - has intact dressing. Has some purplish areas on plantar aspect, dorsum and tip of big toe and second toe. Dressing R hip with drainage at the dressing NEURO: Awake and alert PSYCH: Cooperative LINE: No evidence of infection Assessment and Plan - Plan Impression Non-healing wound R heel/achilles area with abscess and osteo posterior calcaneus PVD S/P revascularization RLE Infection R femur, has sinus tract on MRI, S/P RAZA, C/S MRSA GIB Leukocytosis, resolved Anemia Recommendation Continue IV Vanco Continue Zerbaxa Spoke with patient about amputation but his short term memory is not good and will need to have daughter involved in decision making for him SNF not taking patient at this time due to cost of Zerbaxa Monitor progress Spoke with [facility] Med team
--- NOTE | 2018-04-30 13:17 | CT ---
EXAM DATE: 04/30/2018 1:09 PM EST AGE/SEX: 87 years / Male INDICATIONS: Blood in stool. CLINICAL DATA: This is the patient's initial encounter. Patient reports that signs and symptoms have been present for 3 days and indicates a pain score of 5/10. MEDICAL/SURGICAL HISTORY: Diabetes. Peripheral artery disease. . Hip surgery. RADIATION DOSE: 8.27 CTDI (mGy) COMPARISON: No prior exams available for comparison. TECHNIQUE: Multiple contiguous axial images were obtained through the abdomen. Images were obtained using multiple row detector helical technique. Using automated exposure control and adjustment of the mA and/or kV according to patient size, radiation dose was kept as low as reasonably achievable to o btain optimal diagnostic quality images. DICOM format image data is available electronically for rev iew and comparison. FINDINGS: Trace pleural effusions. Moderate coronary calcifications. Liver is free of focal defects. Gallbladder prominent Calcifications scattered in the pancreas. Spleen is unremarkable Prominence to both right and left adrenal glands with some nodularity on the left Right kidney is unremarkable 2 small calcifications left kidney largest measuring 3 mm without obstruction There is no retroperitoneal adenopathy Moderate stool is seen throughout the colon large bolus in the rectum. Diverticuli are seen in the si gmoid colon. There is no adenopathy. There is no ascites. Small umbilical hernia is present containing only fat. Review of bone windows reveals moderate degenerative changes in the lumbar spine and both SI joints. CONCLUSION: 1. Large bolus of stool in the rectum with stool throughout the colon suggesting constipation with p ossible impaction 2. Prominent gallbladder without stones 3. 2 nonobstructing stones in the left kidney. Electronically signed by: Fan Askew MD 04/30/2018 1:15 PM EST
[2018-04-30] MEDS: Vancomycin Inj 1,250 MG in Sodium Chlor 0.9% Inj 250 ML IV.SIG SCH (14:14)
--- NOTE | 2018-04-30 14:28 | P.PNFP ---
Subjective Interval history: Patient states he is having leg pain today but has no other complaints. Denies any dizziness shortness of breath or chest pain. He said he has increased thirst. Patient not in acute distress. IV access was lost overnight so there was a delay in the transfusion of blood as well as follow-up H&H. <KennethTamiko Dung - 04/30/18 14:28> Results - Labs Result diagrams: 04/30/18 03:46 04/30/18 02:52 <Saji Johnson - 04/30/18 17:27> Abnormal lab results 04/11/18 04/29/18 04/29/18 Range/Units 12:33 13:51 21:51 RBC (4.50-5.90) mil/mm3 Hgb (13.0-17.0) gm/dL Hct (39.0-51.0) % Neut % (Auto) (16.0-70.0) % Eos % (Auto) (0.0-4.0) % Neut # (Auto) (1.8-7.7) th/mm3 Eos # (Auto) (0.0-0.4) th/mm3 Band Neuts % (Manual) (0-6) % Platelet Morphology (Normal) Dimorphic RBCs (None) BUN (7-18) mg/dL POC Glucose 206 H (68-110) mg/dl Random Glucose (74-106) mg/dL Calcium (8.5-10.1) mg/dL MTS Gel Crossmatch See Detail See Detail 04/30/18 04/30/18 04/30/18 Range/Units 02:52 03:46 04:18 RBC 1.92 L (4.50-5.90) mil/mm3 Hgb 6.1 L* (13.0-17.0) gm/dL Hct 18.0 L* (39.0-51.0) % Neut % (Auto) 76.6 H (16.0-70.0) % Eos % (Auto) 5.1 H (0.0-4.0) % Neut # (Auto) 8.2 H (1.8-7.7) th/mm3 Eos # (Auto) 0.5 H (0.0-0.4) th/mm3 Band Neuts % (Manual) 7 H (0-6) % Platelet Morphology Clumped H (Normal) Dimorphic RBCs Present H (None) BUN 20 H (7-18) mg/dL POC Glucose (68-110) mg/dl Random Glucose 140 H (74-106) mg/dL Calcium 7.9 L (8.5-10.1) mg/dL MTS Gel Crossmatch See Detail 04/30/18 04/30/18 Range/Units 08:05 11:30 RBC (4.50-5.90) mil/mm3 Hgb (13.0-17.0) gm/dL Hct (39.0-51.0) % Neut % (Auto) (16.0-70.0) % Eos % (Auto) (0.0-4.0) % Neut # (Auto) (1.8-7.7) th/mm3 Eos # (Auto) (0.0-0.4) th/mm3 Band Neuts % (Manual) (0-6) % Platelet Morphology (Normal) Dimorphic RBCs (None) BUN (7-18) mg/dL POC Glucose 154 H 184 H (68-110) mg/dl Random Glucose (74-106) mg/dL Calcium (8.5-10.1) mg/dL MTS Gel Crossmatch Short CBC 04/30/18 Range/Units 03:46 WBC 10.7 (4.0-11.0) th/mm3 Hgb 6.1 L* (13.0-17.0) gm/dL Hct 18.0 L* (39.0-51.0) % Plt Count 268 (150-450) th/mm3 BMP 04/30/18 02:52 Sodium 141 Potassium 3.6 Chloride 107 Carbon Dioxide 24.0 BUN 20 H Creatinine 0.69 Calcium 7.9 L <Young,Saji L - 04/30/18 17:27> Abnormal lab results 04/11/18 04/29/18 04/29/18 Range/Units 12:33 13:51 16:45 RBC (4.50-5.90) mil/mm3 Hgb (13.0-17.0) gm/dL Hct (39.0-51.0) % Neut % (Auto) (16.0-70.0) % Eos % (Auto) (0.0-4.0) % Neut # (Auto) (1.8-7.7) th/mm3 Eos # (Auto) (0.0-0.4) th/mm3 Band Neuts % (Manual) (0-6) % Platelet Morphology (Normal) Dimorphic RBCs (None) BUN (7-18) mg/dL POC Glucose 187 H (68-110) mg/dl Random Glucose (74-106) mg/dL Calcium (8.5-10.1) mg/dL MTS Gel Crossmatch See Detail See Detail 04/29/18 04/30/18 04/30/18 Range/Units 21:51 02:52 03:46 RBC 1.92 L (4.50-5.90) mil/mm3 Hgb 6.1 L* (13.0-17.0) gm/dL Hct 18.0 L* (39.0-51.0) % Neut % (Auto) 76.6 H (16.0-70.0) % Eos % (Auto) 5.1 H (0.0-4.0) % Neut # (Auto) 8.2 H (1.8-7.7) th/mm3 Eos # (Auto) 0.5 H (0.0-0.4) th/mm3 Band Neuts % (Manual) 7 H (0-6) % Platelet Morphology Clumped H (Normal) Dimorphic RBCs Present H (None) BUN 20 H (7-18) mg/dL POC Glucose 206 H (68-110) mg/dl Random Glucose 140 H (74-106) mg/dL Calcium 7.9 L (8.5-10.1) mg/dL MTS Gel Crossmatch 04/30/18 04/30/18 04/30/18 Range/Units 04:18 08:05 11:30 RBC (4.50-5.90) mil/mm3 Hgb (13.0-17.0) gm/dL Hct (39.0-51.0) % Neut % (Auto) (16.0-70.0) % Eos % (Auto) (0.0-4.0) % Neut # (Auto) (1.8-7.7) th/mm3 Eos # (Auto) (0.0-0.4) th/mm3 Band Neuts % (Manual) (0-6) % Platelet Morphology (Normal) Dimorphic RBCs (None) BUN (7-18) mg/dL POC Glucose 154 H 184 H (68-110) mg/dl Random Glucose (74-106) mg/dL Calcium (8.5-10.1) mg/dL MTS Gel Crossmatch See Detail Short CBC 04/30/18 Range/Units 03:46 WBC 10.7 (4.0-11.0) th/mm3 Hgb 6.1 L* (13.0-17.0) gm/dL Hct 18.0 L* (39.0-51.0) % Plt Count 268 (150-450) th/mm3 BMP 04/30/18 02:52 Sodium 141 Potassium 3.6 Chloride 107 Carbon Dioxide 24.0 BUN 20 H Creatinine 0.69 Calcium 7.9 L <Tamiko Cooper - 04/30/18 14:28> - Imaging Impressions Abdomen/Pelvis CT 04/30/18 10:28 Review of bone windows reveals moderate degenerative changes in the lumbar spine and both SI joints. CONCLUSION: 1. Large bolus of stool in the rectum with stool throughout the colon suggesting constipation with possible impaction 2. Prominent gallbladder without stones 3. 2 nonobstructing stones in the left kidney. <Saji Johnson - 04/30/18 17:27> Impressions Abdomen/Pelvis CT 04/30/18 10:28 Review of bone windows reveals moderate degenerative changes in the lumbar spine and both SI joints. CONCLUSION: 1. Large bolus of stool in the rectum with stool throughout the colon suggesting constipation with possible impaction 2. Prominent gallbladder without stones 3. 2 nonobstructing stones in the left kidney. <Tamiko Cooper - 04/30/18 14:28> Physical Exam Vital signs: Vital Signs 04/29/18 20:00 04/30/18 00:00 04/30/18 01:30 Temperature 98.5 F 98.1 F 98.1 F Pulse Rate 61 77 76 Respiratory Rate 16 18 Blood Pressure 105/54 L 99/50 L 111/53 L Pulse Oximetry 95 94 L 95 04/30/18 04:00 04/30/18 05:57 04/30/18 06:13 Temperature 97.7 F 98.3 F 98.4 F Pulse Rate 63 66 61 Respiratory Rate 16 18 Blood Pressure 109/55 L 112/60 118/59 L Pulse Oximetry 96 95 97 04/30/18 08:00 04/30/18 09:00 04/30/18 12:00 Temperature 98.5 F 98.3 F Pulse Rate 63 57 L 63 Respiratory Rate 17 17 Blood Pressure 134/63 147/62 H Pulse Oximetry 95 97 Intake & Output 04/29/18 04/30/18 04/30/18 18:59 06:59 18:59 Intake Total 690 / 690 100 / 100 762.5 / 762.5 Output Total 550 / 550 Balance 690 / 690 -450 / -450 762.5 / 762.5 Weight 81.9 kg 83 kg Intake: IV 450 / 450 100 / 100 362.5 / 362.5 Zerbaxa Inj 1,500 MG In NS Inj 200 / 200 100 / 100 100 / 100 100 ML @ 100 mls/hr IV.SIG Q8H [facility] Rx#:[id number] Vancomycin Inj 1,250 MG In NS 250 / 250 262.5 / 262.5 Inj 250 ML @ 262.5 mls/hr IV. SIG Q24H ACE Rx#:[id number] Oral 240 / 240 Intake (Blood Product) Amt 0 / 0 400 / 400 Rbc As-3 Leukoreduced Unit 0 / 0 [id number] Rbc As-3 Leukoreduced Unit 0 / 0 400 / 400 [id number] Output: Urine 550 / 550 Other: Date of Last Bowel Movement 04/28/18 04/30/18 # Bowel Movements 1 Weight On Admission 74.843 kg <Saji Johnson L - 04/30/18 17:27> Vital Signs 04/29/18 16:00 04/29/18 20:00 04/30/18 00:00 Temperature 98.1 F 98.5 F 98.1 F Pulse Rate 64 61 77 Respiratory Rate 20 16 18 Blood Pressure 101/53 L 105/54 L 99/50 L Pulse Oximetry 97 95 94 L 04/30/18 01:30 04/30/18 04:00 04/30/18 05:57 Temperature 98.1 F 97.7 F 98.3 F Pulse Rate 76 63 66 Respiratory Rate 18 16 18 Blood Pressure 111/53 L 109/55 L 112/60 Pulse Oximetry 95 96 95 04/30/18 06:13 04/30/18 08:00 04/30/18 09:00 Temperature 98.4 F 98.5 F Pulse Rate 61 63 57 L Respiratory Rate 18 17 Blood Pressure 118/59 L 134/63 Pulse Oximetry 97 95 04/30/18 12:00 Temperature 98.3 F Pulse Rate 63 Respiratory Rate 17 Blood Pressure 147/62 H Pulse Oximetry 97 Intake & Output 04/29/18 04/30/18 04/30/18 18:59 06:59 18:59 Intake Total 690 / 690 100 / 100 500 / 500 Output Total 550 / 550 Balance 690 / 690 -450 / -450 500 / 500 Weight 81.9 kg Intake: IV 450 / 450 100 / 100 100 / 100 Zerbaxa Inj 1,500 MG In NS Inj 200 / 200 100 / 100 100 / 100 100 ML @ 100 mls/hr IV.SIG Q8H ACE Rx#:[id number] Vancomycin Inj 1,250 MG In NS 250 / 250 Inj 250 ML @ 262.5 mls/hr IV. SIG Q24H ACE Rx#:[id number] Oral 240 / 240 Intake (Blood Product) Amt 0 / 0 400 / 400 Rbc As-3 Leukoreduced Unit 0 / 0 [id number] Rbc As-3 Leukoreduced Unit 0 / 0 400 / 400 [id number] Output: Urine 550 / 550 Other: Date of Last Bowel Movement 04/28/18 04/30/18 # Bowel Movements 1 <Tamiko Cooper - 04/30/18 14:28> Narrative: GENERAL: Pleasant elderly male thin, appears malnourished. Alert to person and place but not time. SKIN: Cool and dry. No generalized rash. Has some scattered ecchymoses in his UE. HEAD: Atraumatic. Normocephalic. No temporal wasting, or tenderness. EYES: Anisocoria and left eye, EOMI, pale conjunctiva CARDIOVASCULAR: Regular rate and rhythm. No murmurs, rubs or gallops heard RESPIRATORY: Clear to auscultation. Breath sounds equal bilaterally. No rales , wheezing or rhonchi ABDOMEN: Soft, non-tender, nondistended. No guarding. No rebound. No organomegaly. EXTREMITIES: No edema. Atrophic muscular changes in both legs bilaterally. Right heel covered in bandage. Left foot bandage dry and clean. Patient also has wound on right thigh that is bandaged. Dressing in place, clean and dry. Dressing removed and wound is dry no erythema surrounding the incision and no drainage. Patient able to move toes bilaterally and no decreased sensation. Weak pulse palpated on right popliteal artery. <KennethTamiko C - 04/30/18 14:28> - Urinary Catheter Management Condom Cath placed during this visit: no <Saji Johnson Erin 04/30/18 17:27> no <KennethTamiko Razo Erin 04/30/18 14:28> Reason for continuing: Not indwelling catheter <KennethTamiko Dung Erin 04/30/18 14: 28> Indwelling Urethral Catheter Cath placed during this visit: no <Saji Johnson Erin 04/30/18 17:27> yes, but has since been removed by the nurse <Tamiko Cooper 04/30/18 14:28> Reason for continuing: Not indwelling catheter <KennethTamiko Dung Erin 04/30/18 14: 28> Insertion date: 04/11/18 <Tamiko Cooper 04/30/18 14:28> Insertion time: 21:08 <Tamiko Cooper 04/30/18 14:28> Removal date: 04/12/18 <Tamiko Cooper Dung Erin 04/30/18 14:28> Removal time: 11:35 <Tamiko Cooper Dung Erin 04/30/18 14:28> Straight Cath placed during this visit: no <Saji Johnson Benjamín 04/30/18 17:27> yes <Tamiko Cooper Dung Erin 04/30/18 14:28> Reason for continuing: Other continuation reason <Tamiko Cooper Dung Erin 04/30/18 14:28> Insertion date: 04/11/18 <Tamiko Cooper Dung Erin 04/30/18 14:28> Insertion time: 21:08 <KennethTamiko Dung Khan 04/30/18 14:28> Assessment and Plan - Assessment (1) Anemia Code(s): D64.9 - Anemia, unspecified Status: Acute (2) Osteomyelitis of ankle Code(s): M86.9 - Osteomyelitis, unspecified Status: Acute (3) Infection associated with internal hip prosthesis Code(s): T84.59XA - Infection and inflammatory reaction due to other internal joint prosthesis, initial encounter; Z96.649 - Presence of unspecified artificial hip joint Status: Acute (4) Chronic wound of extremity Status: Chronic (5) MRSA (methicillin resistant staph aureus) culture positive Code(s): Z22.322 - Carrier or suspected carrier of Methicillin resistant Staphylococcus aureus Status: Acute (6) PAD (peripheral artery disease) Code(s): I73.9 - Peripheral vascular disease, unspecified Status: Chronic (7) Bandemia Code(s): D72.825 - Bandemia Status: Resolved (8) Hydronephrosis Code(s): N13.30 - Unspecified hydronephrosis Status: Acute (9) HTN (hypertension) Code(s): I10 - Essential (primary) hypertension Status: Acute (10) Diabetes Code(s): E11.9 - Type 2 diabetes mellitus without complications Status: Acute (11) Malnutrition Code(s): E46 - Unspecified protein-calorie malnutrition Status: Acute (12) Anisocoria Code(s): H57.02 - Anisocoria Status: Acute (13) Nutrition, metabolism, and development symptoms Code(s): R63.8 - Other symptoms and signs concerning food and fluid intake Status: Acute <Saji Johnson - 04/30/18 17:27> (1) Anemia Code(s): D64.9 - Anemia, unspecified Status: Acute Plan: On admission on 04/11 patient found to have hemoglobin of 6.6 and transfused 2 units of packed RBC. Also had tarry stools and underwent endoscopy and colonoscopy which were benign except small ulcer in the rectum. Placed on PPI and iron. H and H trended -04/29 Hbg 6.5 down from 7.5 -transfused one unit of PRBC repeat H/H 04/30 6.1 -Order for additional unit of PRBC and H/H -Transfer to ICU -CT abdomen pending -Consulted ortho: Bleeding possibly from femoral canal. During procedure box was not used because of patient's response to previous hardware. Dr. Muñoz stated that hemoglobin should stabilize and that the bleeding could continue for up to 2 weeks after the procedure. (2) Osteomyelitis of ankle Code(s): M86.9 - Osteomyelitis, unspecified Status: Acute Plan: MRI showed evidence of osteomyelitis of right ankle which likely has been brewing for some time in this diabetic patient with PAD with chronic lower- extremity non-healing ulcers Culture positive for MRSA at different site (right thigh wound) Wound Cx of right ankle showed Pseudomonas as well as multidrug-resistant Proteus and group D enterococcus Blood cultures NGTD Afebrile Podiatry consulted, appreciate assistance; * plan for patient to have calcanectomy on 04/26 however due to patient's inability to recall presurgery discussion when seen by podiatry the morning of 04/26 Dr. Urena will no longer be performing calcanectomy procedure. * Recommends: betadine wet to dry daily and if foot/heel becomes acutely infected rec below-knee amputation of right lower extremity as patient is unable to care for himself or able to mentally process limb salvage procedure options. In addition the likelihood of failure was already high due to the low vascularity to the right lower limb. * Podiatry has signed off. Vascular surgery consulted * s/p [employer] of popliteal stenosis on 04/24 * Anterior tibial, posterior tibia and peritoneal artery occluded Lower extremity pulses appreciated Via Doppler. Right popliteal pulse appreciated on exam * ID consulted, appreciate recs * Continue vancomycin * Continue Zerbaxa * Wound care consulted, appreciate recs * See note from 04/25 * follow recommendations * Pain management with Bone Gap scheduled, gabapentin, morphine for breakthrough pain (3) Infection associated with internal hip prosthesis Code(s): T84.59XA - Infection and inflammatory reaction due to other internal joint prosthesis, initial encounter; Z96.649 - Presence of unspecified artificial hip joint Status: Acute Plan: Wound care noted to patient's right hip wound to be more purulent and fluctuant yesterday Right femur MRI was ordered and results showed: -Osseous cutaneous fistulous tract extending from the greater trochanter to the skin surface with small subcutaneous fluid collection identified. The collection appears to communicate with the prosthetic component in the proximal femur. -. Edematous changes are noted along the vastus lateralis and iliotibial band. -Patient temperature on 04/28: BCX pending Follow wound care recommendations for care Orthopedic consultation: 04/27 irrigation and debridement with hardware removal and placement of antibiotic beads Recommendation: "TTWB RLE and Dressing changes daily and as needed. Incisions will have drainage for likely several days to even couple of weeks as antibiotic beads were placed along with removal of hardware and debridement of the femur leaving an open femoral canal. This should slowly stop over several days to weeks. Dressing changes as needed.Antibiotics per ID for chronic osteomyelitis. Plan for patient to follow-up in my office in 2 weeks" (4) Chronic wound of extremity Status: Chronic Plan: Patient currently follows up with wound care as an outpatient Right hip wound, super observant dressing daily Skin tear lower left extremity, Santyl covered and dry dressing daily Right heel wound, apply gentamicin cream twice daily, see above plan for associated osteomyelitis Wound care consulted, appreciate recommendations * Cleanse wound to R Achilles heel with normal saline only and pat dry. Apply gentamicin mixed with Santyl 50/ 50 and apply to wound bed * Cover with ABD pad, and secure with rolled gauze and tape. Change dressing daily, until seen by podiatry. * Cleanse wound to R hip see updated note from 04/25 * Cleanse wound to L posterior lower leg with normal saline and pat dry. Apply optifoam gentle 4x4 dressing change dressing every 3 days or PRN if saturated or dislodged. (5) MRSA (methicillin resistant staph aureus) culture positive Code(s): Z22.322 - Carrier or suspected carrier of Methicillin resistant Staphylococcus aureus Status: Acute Plan: This patient suffers from chronic nonhealing wounds likely secondary to peripheral arterial disease and DM. Patient had wound from right thigh cultured which ultimately grew MRSA. -Monitor for fevers and signs of systemic illness -Antibiotic therapy as above (6) PAD (peripheral artery disease) Code(s): I73.9 - Peripheral vascular disease, unspecified Status: Chronic Plan: s/p recent right LE arterectomy. s/p vascular procedure as above on 04/24 (7) Bandemia Code(s): D72.825 - Bandemia Status: Resolved Plan: Resolved, likely due to osteomyelitis. See above plan. (8) Hydronephrosis Code(s): N13.30 - Unspecified hydronephrosis Status: Acute Plan: Abdominal pelvis CT demonstrates development of moderate left hydronephrosis and hydroureter without ureteral obstruction. Also demonstrates stool ball in the rectum large amount of stool throughout the colon. Patient had a bladder scan 04/11 that revealed of a residual volume of 231 mL. Patient currently voiding well. Patient has no CVA tenderness. Hmamer in place UA on 04/26 : negative for infection - Continue to monitor I's and O's. (9) HTN (hypertension) Code(s): I10 - Essential (primary) hypertension Status: Acute Plan: Continue Cardizem and amiodarone (10) Diabetes Code(s): E11.9 - Type 2 diabetes mellitus without complications Status: Acute Plan: Held home glipizide, Januvia Accu-Cheks Low-dose sliding scale Hypoglycemia protocol in place (11) Malnutrition Code(s): E46 - Unspecified protein-calorie malnutrition Status: Acute Plan: This patient appears thin and possibly malnourished. Patient has significant muscle atrophy in arms and legs that are partially consistent with age and lack of activity. -Begin diet mentation with Ensure (12) Anisocoria Code(s): H57.02 - Anisocoria Status: Acute Plan: Most likely chronic in view of no other alarming ophthalmologic signs/symptoms Can follow up with Ophthalmology outpatient (13) Nutrition, metabolism, and development symptoms Code(s): R63.8 - Other symptoms and signs concerning food and fluid intake Status: Acute Plan: Fluids: per PO Diet: Diabetic supplements with protein shake Electrolytes: monitor and replete as needed DVT prophylaxis: Contraindicated due to upper GI bleed Disposition: Back to SNF when ID has final antibiotic recommendations Discussed with Dr. Johnson <Tamiko Cooper - 04/30/18 14:22> - Attending Attestation The exam, history, and the medical decision-making described in the above note were completed with the assistance of the resident physician. I reviewed and agree with the findings presented. I attest that I had a [id number] encounter with the patient on the same day, and personally performed and documented my assessment and findings in the medical record. Patient seen with Dr. Cooper this morning. He has downtrending hemoglobin/hematocrit since his hardware removal of right hip. Hit 6.7 and 1 PRBC ordered and transfused. Repeat hgb after transfusion was 6.1, so photocomposition keyboard operator was consulted and he is transferred to the ICU for closer monitoring. A second unit is transfused with follow up hemoglobin pending. Orthopedic surgeon called by phone to discuss case , and they suggest that it could be the femoral canal and bleeding could persist for a while. No obvious hematoma or leakage from the surgical site. His right heel has significant discharge and some blood loss. No blood seen in his urine bag. CT abdomen shows no evidence of acute bleed. He does have conjunctival pallor and was complaining of thirst. Also with decreased urine output. We are also resuscitating with normal saline given signs of hypovolemia. The case was discussed with photocomposition keyboard operator Dr. Leon by phone who agreed to accept transfer to the ICU. <Saji Johnson - 04/30/18 17:27> <Tamiko Cooper - Last Filed: 04/30/18 14:22> (2) Osteomyelitis of ankle Qualifiers: Osteomyelitis type: other chronic Laterality: right Qualified Code(s): M86.671 - Other chronic osteomyelitis, right ankle and foot (8) Hydronephrosis Qualifiers: Hydronephrosis type: unspecified Qualified Code(s): N13.30 - Unspecified hydronephrosis <Saji Johnson - Last Filed: 04/30/18 17:27> (2) Osteomyelitis of ankle Qualifiers: Osteomyelitis type: other chronic Laterality: right Qualified Code(s): M86.671 - Other chronic osteomyelitis, right ankle and foot (8) Hydronephrosis Qualifiers: Hydronephrosis type: unspecified Qualified Code(s): N13.30 - Unspecified hydronephrosis <Tamiko Cooper - Last Filed: 04/30/18 14:22> (2) Osteomyelitis of ankle Qualifiers: Osteomyelitis type: other chronic Laterality: right Qualified Code(s): M86.671 - Other chronic osteomyelitis, right ankle and foot (8) Hydronephrosis Qualifiers: Hydronephrosis type: unspecified Qualified Code(s): N13.30 - Unspecified hydronephrosis <Saji Johnson - Last Filed: 04/30/18 17:27> (2) Osteomyelitis of ankle Qualifiers: Osteomyelitis type: other chronic Laterality: right Qualified Code(s): M86.671 - Other chronic osteomyelitis, right ankle and foot (8) Hydronephrosis Qualifiers: Hydronephrosis type: unspecified Qualified Code(s): N13.30 - Unspecified hydronephrosis
[2018-04-30] MEDS ORDERED: Sodium Chlor 0.9% Inj 500 ML IV.SIG ONE (15:05)
[2018-04-30] MEDS: Sod Chloride 0.9% Inj 1,000 ML IV.CONT SCH ×2 (16:42→23:32)
[2018-04-30 17:26] LABS: Hematocrit 20.4 % (39.0-51.0); Hemoglobin 6.6 gm/dL (13.0-17.0)
--- NOTE | 2018-04-30 17:53 | P.CONCC ---
History of Present Illness Service: Critical care medicine Consult date: 04/30/18 Requesting Physician: Tamiko Cooper Reason for Consult: Anemia Primary Care Provider: No Primary Care Physician Chief Complaint: Draining right hip wound. History of Present Illness: This is an 87-year-old male. Date of admission 04/11/2018. Date of consultation 04/30/2018. Past medical history includes diabetes, hypertension, diverticulosis, peripheral arterial disease hypothyroidism, atrial fibrillation currently in sinus bradycardia, gastroesophageal reflux disease and diabete hospitalization to date has been reviewed. Patient was evaluated by Dr. 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 Positive MRSA. Patient was evaluated by podiatry recommended amputation. Patient was seen by orthopedics with removal of hardware from right hip. Cultures of the ankle revealed Pseudomonas, Proteus and enterococcus. There is MRSA from the right thigh wound. Patient was treated with Zerbaxa and vancomycin. Closely trending downward. This morning was 6.1. No signs of active bleeding. Noted patient had a negative colonoscopy 12/02 which revealed severe sigmoid diverticulosis. Internal and external hemorrhoids. CT abdomen/pelvis revealed large retained stool. Patient has bowel movement today visualized which was brown/claylike without signs of active bleeding. He will be receiving total of 2 units PRBCs days along with a 500 cc normal saline bolus. Patient is hemodynamically stable. Denies abdominal pain. Pain is at site of hardware removal on right side/thigh and hip and necrosis lower extremity. Patient is in remain hemodynamically stable. Patient is a DNR. Review of Systems unobtainable due to mental condition PMFSH - History History Provided By: Patient - Medical History Medical History: Medical History (Last Reviewed 04/30/18 @ 18:01 by Rehan Leon MD) Weakness Diabetes HLD (hyperlipidemia) MDRO (multiple drug resistant organisms) resistance Onset Date: ~04/11/18 MRSA (methicillin resistant Staphylococcus aureus) PAD (peripheral artery disease) - Surgical History Surgical History: Surgical History (Last Reviewed 04/30/18 @ 18:01 by Rehan Leon MD) History of hip surgery - Family History Family History: Family History (Last Reviewed 04/30/18 @ 18:01 by Rehan Leon MD) Other Diabetes - Tobacco History Second Hand Smoke Exposure: No Tobacco Use In Past 30 Days: No Smoking Status: Former smoker Tobacco Type: Cigarettes - Alcohol History How Often Do You Have a Drink Containing Alcohol: Never - Substance Use History Substance History: No History of Abuse - Travel History Recent Travel in the [place] Within the Last 8 Weeks: No Recent Travel Out of the Country Within the Last 8 Weeks: No - Immunization History Tetanus Immunization: Unsure Hx Influenza Vaccine This Season: Yes Medications and Allergies Active Medications: Active Medications Hydrocodone Bitart/Acetaminophen ([place] 10/325) 1 tab PO Q4H [facility] Last Admin: 04/30/18 13:58 Dose: 1 tab Amiodarone HCl (Cordarone) 200 mg PO DAILY [facility] Last Admin: 04/30/18 09:07 Dose: 200 mg Ascorbic Acid (Vitamin C) 500 mg PO BID [facility] Last Admin: 04/30/18 09:08 Dose: 500 mg Collagenase (Santyl Oint) 1 applicatio TOPICAL DAILY [facility] Last Admin: 04/30/18 09:09 Dose: 1 applicatio Dextrose (D50w Vial) 50 ml IV.PUSH UNSCH PRN PRN Reason: PER HYPOGLYCEMIA PROTOCOL Last Admin: 04/24/18 21:44 Dose: 50 ml Diltiazem HCl (Cardizem) 30 mg PO TID [facility] Last Admin: 04/30/18 12:14 Dose: 30 mg Diphenhydramine HCl (Benadryl) 25 mg PO Q6H PRN PRN Reason: ITCHING Ferrous Sulfate (Ferosul) 325 mg PO TID [facility] Last Admin: 04/30/18 12:14 Dose: 325 mg Gabapentin (Neurontin) 600 mg PO TID [facility] Last Admin: 04/30/18 12:14 Dose: 600 mg Gentamicin Sulfate (Gentamicin 0.1% Cream) 1 applicatio TOPICAL BID [facility] Last Admin: 04/30/18 09:08 Dose: 1 applicatio Glucagon (Glucagon Inj) 1 mg OTHER PRN PRN PRN Reason: for Hypoglycemia Protocol Ceftolozane/Tazobactam 1,500 (mg/ Sodium Chloride) 100 mls @ 100 mls/hr IV.SIG Q8H [facility] Last Infusion: 04/30/18 10:10 Dose: Infused Vancomycin HCl 1,250 mg/ (Sodium Chloride) 262.5 mls @ 262.5 mls/hr IV.SIG Q24H [facility] Last Infusion: 04/30/18 15:15 Dose: Infused Sodium Chloride (Ns Inj) 1,000 mls @ 120 mls/hr IV.CONT .Q8H20M [facility] Last Admin: 04/30/18 16:42 Dose: 120 mls/hr Insulin Aspart (Novolog Insulin Correctional Sugar Inj) 0 unit SQ ACHS [facility]; Protocol Last Admin: 04/30/18 12:15 Dose: 1 unit Levothyroxine Sodium (Synthroid) 125 mcg PO DAILY@0600 [facility] Last Admin: 04/30/18 06:05 Dose: 125 mcg Magnesium Oxide (Mag-Ox) 400 mg PO QID [facility] Last Admin: 04/30/18 12:15 Dose: 400 mg Miscellaneous Information ([facility] Ordered Lab Info) 0 each OTHER ONCE ONE Stop: 05/01/18 14:46 Morphine Sulfate (Morphine Inj) 2 mg IV.PUSH Q3H PRN PRN Reason: BREAKTHROUGH PAIN Last Admin: 04/30/18 09:10 Dose: 2 mg Naloxone HCl (Narcan Inj) 0.4 mg IV.PUSH UNSCH PRN PRN Reason: SEE LABEL COMMENTS Pantoprazole Sodium (Protonix) 40 mg PO BID [facility] Last Admin: 04/30/18 09:08 Dose: 40 mg Pharmacy Profile Note (Vancomycin Consult Pharmacy) 1 each OTHER UNSCH PRN PRN Reason: Pharmacy to dose Polyethylene Glycol (Miralax) 17 gm PO DAILY [facility] Last Admin: 04/30/18 09:08 Dose: Not Given Potassium Phos/Sodium Phos (K-Phos Neutral) 250 mg PO QID [facility] Last Admin: 04/30/18 12:14 Dose: 250 mg Pravastatin Sodium (Pravachol) 40 mg PO DAILY [facility] Last Admin: 04/30/18 09:08 Dose: 40 mg Sodium Chloride (Sodium Chloride) 1 gm PO TID [facility] Last Admin: 04/30/18 12:14 Dose: 1 gm Sodium Chloride (Ns Flush) 2 ml IV.FLUSH BID [facility] Last Admin: 04/30/18 09:09 Dose: Not Given Sodium Chloride (Ns Flush) 2 ml IV.FLUSH PRN PRN PRN Reason: FLUSH AFTER USING IV ACCESS Allergies Allergy/AdvReac Type Severity Reaction Status Date / Time No Known Allergies Allergy Verified 04/08/18 12:35 Home Medications Medication Instructions Recorded Confirmed Type Lactobacillus acidoph-L.bulgar 1 tab PO DAILY 04/08/18 04/11/18 History [Floranex] amiodarone 200 mg PO DAILY 04/08/18 04/11/18 History diltiazem HCl 30 mg PO TID 04/08/18 04/11/18 History ferrous sulfate 325 mg PO TID 04/08/18 04/11/18 History gabapentin 300 mg PO TID 04/08/18 04/11/18 History glipizide 10 mg PO BID 04/08/18 04/11/18 History hydrocodone-acetaminophen 1 tab PO Q6H 04/08/18 04/11/18 History levothyroxine 125 mcg PO DAILY 04/08/18 04/11/18 History magnesium oxide 400 mg PO QID 04/08/18 04/11/18 History meloxicam 7.5 mg PO DAILY 04/08/18 04/11/18 History pravastatin 40 mg PO DAILY 04/08/18 04/11/18 History ranitidine HCl 300 mg PO DAILY 04/08/18 04/11/18 History sitagliptin [Januvia] 100 mg PO DAILY 04/08/18 04/11/18 History sod phos di, mono-K phos mono 1 tab PO QID 04/08/18 04/11/18 History [Phospha 250 Neutral] sodium chloride 1,000 mg PO TID 04/08/18 04/11/18 History ascorbic acid (vitamin C) [Vitamin 500 mg PO BID 04/11/18 04/11/18 History C] insulin aspart U-100 [Novolog 1 - 10 units SUBCUT DIRECTED 04/11/18 04/11/18 History U-100 Insulin aspart] Physical Exam Vital signs: Vital Signs 04/29/18 20:00 04/30/18 00:00 04/30/18 01:30 Temperature 98.5 F 98.1 F 98.1 F Pulse Rate 61 77 76 Respiratory Rate 16 18 18 Blood Pressure 105/54 L 99/50 L 111/53 L Pulse Oximetry 95 94 L 95 04/30/18 04:00 04/30/18 05:57 04/30/18 06:13 Temperature 97.7 F 98.3 F 98.4 F Pulse Rate 63 66 61 Respiratory Rate 16 18 18 Blood Pressure 109/55 L 112/60 118/59 L Pulse Oximetry 96 95 97 04/30/18 08:00 04/30/18 09:00 04/30/18 12:00 Temperature 98.5 F 98.3 F Pulse Rate 63 57 L 63 Respiratory Rate 17 17 Blood Pressure 134/63 147/62 H Pulse Oximetry 95 97 Intake & Output 04/29/18 04/30/18 04/30/18 18:59 06:59 18:59 Intake Total 690 / 690 100 / 100 762.5 / 762.5 Output Total 550 / 550 Balance 690 / 690 -450 / -450 762.5 / 762.5 Weight 81.9 kg 83 kg Intake: IV 450 / 450 100 / 100 362.5 / 362.5 Zerbaxa Inj 1,500 MG In NS Inj 200 / 200 100 / 100 100 / 100 100 ML @ 100 mls/hr IV.SIG Q8H [facility] Rx#:[id number] Vancomycin Inj 1,250 MG In NS 250 / 250 262.5 / 262.5 Inj 250 ML @ 262.5 mls/hr IV. SIG Q24H [facility] Rx#:[id number] Oral 240 / 240 Intake (Blood Product) Amt 0 / 0 400 / 400 Rbc As-3 Leukoreduced Unit 0 / 0 [id number] Rbc As-3 Leukoreduced Unit 0 / 0 400 / 400 [id number] Output: Urine 550 / 550 Other: Date of Last Bowel Movement 04/28/18 04/30/18 # Bowel Movements 1 Weight On Admission 74.843 kg - Constitutional no acute distress - Routine HEENT Exam Head: Present: normocephalic, atraumatic Eye: Present: EOMI, PERRL ENT: Present: mucous membranes moist - Routine Neck Exam Present: supple, full ROM - Routine Respiratory Exam Present: CTA bilaterally. Absent: accessory muscle use - Routine Cardiovascular Exam Present: RRR, S1, S2 - Routine Abdominal Exam Present: soft, normoactive bowel sounds - Routine Exam Patient deferred: penile exam, testicular exam, scrotal exam, groin exam, perineal exam - Routine Extremities Exam Present: tenderness, amputation. Absent: cyanosis, clubbing - Routine Skin Exam Present: erythema. Absent: intact, cyanosis, lesions - Routine Neurological Exam Present: alert, CN II-XII intact. Absent: oriented X3 - Detailed Neurological Exam: Coma Scale Eye Opening: Spontaneous Verbal Response: Confused Motor Response: Obey commands Harinder Coma Scale Total: 14 - Routine Psychiatric Exam Present: unable to assess - Urinary Catheter Management Straight Cath placed during this visit: yes Reason for continuing: Other continuation reason Insertion date: 04/11/18 Insertion time: 21:08 Indwelling Urethral Catheter Cath placed during this visit: yes, but has since been removed by the nurse Reason for continuing: Not indwelling catheter Insertion date: 04/11/18 Insertion time: 21:08 Removal date: 04/12/18 Removal time: 11:35 Condom Cath placed during this visit: no Reason for continuing: Not indwelling catheter Septic Shock Reassessment Septic shock perfusion: reassessment completed Assessment and Plan - Assessment and Plan Plan: Neuro/Psych: Peripheral neuropathy Acute pain management Continue Neurontin 600 mg p.o. 3 times daily for peripheral neuropathy. Continue hydrocodone/acetaminophen 10/325 and morphine sulfate 2 mg every 3 hours as needed for pain management CV: History of atrial fibrillation currently in sinus bradycardia Essential hypertension Hyperlipidemia We will hold diltiazem 30 mg 3 times daily in light of hypotension Continue amiodarone 200 mg p.o. daily Continue pravastatin 40 mg p.o. daily. Received 500 cc normal saline bolus today Resp: Nasal cannula to maintain saturations greater than equal 92% Incentive spirometry while awake GI: Chronic cholelithiasis Internal/external hemorrhoids Sigmoid diverticulosis Mild gastritis on EGD 04/13 Chronic proctitis rectal biopsy colonoscopy in 04/14 CT abdomen/pelvis revealed 2 left kidney nonobstructing stones. Large stool ball in the rectum. Cholelithiasis. Has been evaluated by GI in the past. Has had a outpatient pill endoscopy? Remains on cardiac diet. On pantoprazole 40 mg twice daily for GI prophylaxis Polythene glycol/docusate sodium for bowel regimen Not bleeding actively now no indication acutely for for bleeding scan. : Straight catheterization as needed Endo: Diabetes mellitus Hypothyroid Continue levothyroxine Continue levothyroxine 25 mg daily. Check TSH Currently on sliding scale insulin. Holding home medications of sitagliptin 100 mg daily and glipizide 10 mg twice daily. Renal: Creatinine currently within normal limits Monitor urine output Accurate I's note Heme: Acute anemia No obvious source of bleeding. Check haptoglobin, LDH and peripheral smear. Check iron studies/B12 Consider hematology consultation. Transfuse 2 unit PRBC today. Recheck in a.m. Coags pending ID: History of polymicrobial infection lower extremity including Pseudomonas, enterococcus and Proteus 04/16 right foot MRSA -right hip 04/11 Followed by infectious. Currently on zerbaxa vancomycin. FEN: Replace electrolytes as clinically indicated MSK: Status post removal retained hardware/IM nailing right hip 04/27/[address] Alonso Follow-up postoperative care with orthopedics Evaluated by podiatry recommended below-knee amputation worsening infection right lower extremity Access -Utilize peripheral IV. Central line if indicated Prophylaxis - GI -pantoprazole -DVT-SCD/holding pharmacological prophylaxis in light of anemia Level 2 consult. Patient is stable. Agree with current workup. We will sign off. Call if questions arise.
[2018-04-30] MEDS ORDERED: Sodium Chlor 0.9% Inj 250 ML IV.SIG SCH ×2 (18:00→21:00)
[2018-04-30] MEDS ORDERED: Methylnaltrexone Inj 12 MG/0.6 ML Vial SQ ONE (20:00)
[2018-04-30 20:32] LABS: Activated Partial Thrombo Time 30.2 sec (23.4-31.7); INR 1.1 Ratio; Prothrombin Time 11.4 sec (9.8-11.6)
[2018-04-30 20:39] LABS: % Iron Saturation 29.7 % (20-50)
[2018-04-30] MEDS: Docusate Sodium 100 MG Capsule PO SCH (21:29)
[2018-05-01] MEDS: CEFTOLOZANE IV.SIG SCH ×3 (00:49→18:20)
[2018-05-01] MEDS: SODIUM CHLOR 0.9% IV.SIG SCH ×3 (00:49→18:20)
[2018-05-01] MEDS: TAZOBACTAM IV.SIG SCH ×3 (00:49→18:20)
[2018-05-01] MEDS: Levothyroxine 125 MCG Tablet PO SCH (05:17)
[2018-05-01 05:19] LABS: Baso # (Auto) 0.2 th/mm3 (0.0-0.2); Baso % (Auto) 1.2 % (0.0-2.0); Eos % (Auto) 7.7 % (0.0-4.0); Hematocrit 29.6 % (39.0-51.0); Hemoglobin 9.6 gm/dL (13.0-17.0); Lymph # (Auto) 1.3 th/mm3 (1.0-4.8); Lymph % (Auto) 10.2 % (9.0-44.0); Mean Corpuscular HGB Conc 32.4 % (32.0-36.0); Mean Corpuscular Volume 89.4 fL (80.0-100.0); Mean Platelet Volume 7.3 fL (7.0-11.0); Mono # (Auto) 0.9 th/mm3 (0.0-0.9); Mono % (Auto) 7.2 % (0.0-8.0); Neut # (Auto) 9.6 th/mm3 (1.8-7.7); Neut % (Auto) 73.7 % (16.0-70.0); Platelet Count 337 th/mm3 (150-450); Red Blood Count 3.31 mil/mm3 (4.50-5.90); Red Cell Distribution Width 21.9 % (11.6-17.2)
[2018-05-01 05:36] LABS: Glomerular Filtration Rate Greater Than 89 mL/min (>89)
[2018-05-01] MEDS: Insulin NovoLOG Aspart Correctional Sugar Inj SQ SCH ×4 (09:13→20:57)
[2018-05-01] MEDS: Amiodarone 200 MG Tablet PO SCH (09:14)
[2018-05-01] MEDS: Gabapentin 300 MG Capsule PO SCH ×3 (09:14→18:41)
[2018-05-01] MEDS: Ferrous Sulfate 325 MG Tablet PO SCH ×3 (09:14→18:41)
[2018-05-01] MEDS: Potassium Phos/Sodium Phos 250 MG Tablet PO SCH ×4 (09:14→21:02)
[2018-05-01] MEDS: Gentamicin 0.1% Cream 15 GM Cream TOPICAL SCH ×2 (09:14→21:03)
[2018-05-01] MEDS: Polyethylene Glycol 3350 17 GM Packet PO SCH (09:14)
[2018-05-01] MEDS: Docusate Sodium 100 MG Capsule PO SCH ×2 (09:14→21:03)
[2018-05-01] MEDS: Ascorbic Acid 500 MG Tablet PO SCH ×2 (09:15→21:03)
[2018-05-01] MEDS: Sodium Chloride 1 GM Tablet PO SCH ×3 (09:15→19:42)
[2018-05-01] MEDS: Collagenase Oint 30 GM Tube TOPICAL SCH (09:15)
--- NOTE | 2018-05-01 11:31 | P.PNFP ---
Subjective Interval history: Patient resting comfortably in exam room. States that he had good dreams overnight improvement in his friend. He denies any headache, dizziness, nausea, vomiting. Patient was able to eat breakfast with no issues. He states he still having leg pain in his right hip and his foot. Denies any numbness. Denies any shortness of breath or chest pain. <Tamiko Cooper C - 05/01/18 11:30> Results - Labs Result diagrams: 05/01/18 04:25 05/01/18 04:25 <Osmel Pagan R - 05/01/18 13:25> Abnormal lab results 04/30/18 04/30/18 04/30/18 Range/Units 04:18 08:05 17:04 WBC (4.0-11.0) th/mm3 RBC (4.50-5.90) mil/mm3 Hgb 6.6 L* (13.0-17.0) gm/dL Hct 20.4 L* (39.0-51.0) % RDW (11.6-17.2) % Neut % (Auto) (16.0-70.0) % Eos % (Auto) (0.0-4.0) % Neut # (Auto) (1.8-7.7) th/mm3 Eos # (Auto) (0.0-0.4) th/mm3 Haptoglobin (30-200) mg/dL Fibrinogen (227-377) mg/dL POC Glucose 154 H (68-110) mg/dl Iron (65-175) mcg/dL TIBC (250-450) mcg/dL Ferritin (26-388) ng/mL Vitamin B12 (193-986) pg/mL MTS Gel Crossmatch See Detail 04/30/18 04/30/18 04/30/18 Range/Units 18:40 19:52 19:52 WBC (4.0-11.0) th/mm3 RBC (4.50-5.90) mil/mm3 Hgb (13.0-17.0) gm/dL Hct (39.0-51.0) % RDW (11.6-17.2) % Neut % (Auto) (16.0-70.0) % Eos % (Auto) (0.0-4.0) % Neut # (Auto) (1.8-7.7) th/mm3 Eos # (Auto) (0.0-0.4) th/mm3 Haptoglobin 216 H (30-200) mg/dL Fibrinogen 389 H (227-377) mg/dL POC Glucose 150 H (68-110) mg/dl Iron 47 L (65-175) mcg/dL TIBC 158 L (250-450) mcg/dL Ferritin 969 H (26-388) ng/mL Vitamin B12 1158 H (193-986) pg/mL MTS Gel Crossmatch 04/30/18 04/30/18 05/01/18 Range/Units 20:50 21:23 04:25 WBC 13.0 H (4.0-11.0) th/mm3 RBC 3.31 L (4.50-5.90) mil/mm3 Hgb 9.6 L D (13.0-17.0) gm/dL Hct 29.6 L (39.0-51.0) % RDW 21.9 H D (11.6-17.2) % Neut % (Auto) 73.7 H (16.0-70.0) % Eos % (Auto) 7.7 H (0.0-4.0) % Neut # (Auto) 9.6 H (1.8-7.7) th/mm3 Eos # (Auto) 1.0 H (0.0-0.4) th/mm3 Haptoglobin (30-200) mg/dL Fibrinogen (227-377) mg/dL POC Glucose 205 H (68-110) mg/dl Iron (65-175) mcg/dL TIBC (250-450) mcg/dL Ferritin (26-388) ng/mL Vitamin B12 (193-986) pg/mL MTS Gel Crossmatch See Detail 05/01/18 Range/Units 08:51 WBC (4.0-11.0) th/mm3 RBC (4.50-5.90) mil/mm3 Hgb (13.0-17.0) gm/dL Hct (39.0-51.0) % RDW (11.6-17.2) % Neut % (Auto) (16.0-70.0) % Eos % (Auto) (0.0-4.0) % Neut # (Auto) (1.8-7.7) th/mm3 Eos # (Auto) (0.0-0.4) th/mm3 Haptoglobin (30-200) mg/dL Fibrinogen (227-377) mg/dL POC Glucose 195 H (68-110) mg/dl Iron (65-175) mcg/dL TIBC (250-450) mcg/dL Ferritin (26-388) ng/mL Vitamin B12 (193-986) pg/mL MTS Gel Crossmatch Short CBC 04/30/18 05/01/18 Range/Units 17:04 04:25 WBC 13.0 H (4.0-11.0) th/mm3 Hgb 6.6 L* 9.6 L D (13.0-17.0) gm/dL Hct 20.4 L* 29.6 L (39.0-51.0) % Plt Count 337 (150-450) th/mm3 BMP 05/01/18 04:25 Creatinine 0.61 <Osmel Pagan R - 05/01/18 13:25> Abnormal lab results 04/30/18 04/30/18 04/30/18 Range/Units 04:18 08:05 11:30 WBC (4.0-11.0) th/mm3 RBC (4.50-5.90) mil/mm3 Hgb (13.0-17.0) gm/dL Hct (39.0-51.0) % RDW (11.6-17.2) % Neut % (Auto) (16.0-70.0) % Eos % (Auto) (0.0-4.0) % Neut # (Auto) (1.8-7.7) th/mm3 Eos # (Auto) (0.0-0.4) th/mm3 Haptoglobin (30-200) mg/dL Fibrinogen (227-377) mg/dL POC Glucose 154 H 184 H (68-110) mg/dl Iron (65-175) mcg/dL TIBC (250-450) mcg/dL Ferritin (26-388) ng/mL Vitamin B12 (193-986) pg/mL MTS Gel Crossmatch See Detail 04/30/18 04/30/18 04/30/18 Range/Units 17:04 18:40 19:52 WBC (4.0-11.0) th/mm3 RBC (4.50-5.90) mil/mm3 Hgb 6.6 L* (13.0-17.0) gm/dL Hct 20.4 L* (39.0-51.0) % RDW (11.6-17.2) % Neut % (Auto) (16.0-70.0) % Eos % (Auto) (0.0-4.0) % Neut # (Auto) (1.8-7.7) th/mm3 Eos # (Auto) (0.0-0.4) th/mm3 Haptoglobin 216 H (30-200) mg/dL Fibrinogen (227-377) mg/dL POC Glucose 150 H (68-110) mg/dl Iron 47 L (65-175) mcg/dL TIBC 158 L (250-450) mcg/dL Ferritin 969 H (26-388) ng/mL Vitamin B12 1158 H (193-986) pg/mL MTS Gel Crossmatch 04/30/18 04/30/18 04/30/18 Range/Units 19:52 20:50 21:23 WBC (4.0-11.0) th/mm3 RBC (4.50-5.90) mil/mm3 Hgb (13.0-17.0) gm/dL Hct (39.0-51.0) % RDW (11.6-17.2) % Neut % (Auto) (16.0-70.0) % Eos % (Auto) (0.0-4.0) % Neut # (Auto) (1.8-7.7) th/mm3 Eos # (Auto) (0.0-0.4) th/mm3 Haptoglobin (30-200) mg/dL Fibrinogen 389 H (227-377) mg/dL POC Glucose 205 H (68-110) mg/dl Iron (65-175) mcg/dL TIBC (250-450) mcg/dL Ferritin (26-388) ng/mL Vitamin B12 (193-986) pg/mL MTS Gel Crossmatch See Detail 05/01/18 05/01/18 Range/Units 04:25 08:51 WBC 13.0 H (4.0-11.0) th/mm3 RBC 3.31 L (4.50-5.90) mil/mm3 Hgb 9.6 L D (13.0-17.0) gm/dL Hct 29.6 L (39.0-51.0) % RDW 21.9 H D (11.6-17.2) % Neut % (Auto) 73.7 H (16.0-70.0) % Eos % (Auto) 7.7 H (0.0-4.0) % Neut # (Auto) 9.6 H (1.8-7.7) th/mm3 Eos # (Auto) 1.0 H (0.0-0.4) th/mm3 Haptoglobin (30-200) mg/dL Fibrinogen (227-377) mg/dL POC Glucose 195 H (68-110) mg/dl Iron (65-175) mcg/dL TIBC (250-450) mcg/dL Ferritin (26-388) ng/mL Vitamin B12 (193-986) pg/mL MTS Gel Crossmatch Short CBC 04/30/18 05/01/18 Range/Units 17:04 04:25 WBC 13.0 H (4.0-11.0) th/mm3 Hgb 6.6 L* 9.6 L D (13.0-17.0) gm/dL Hct 20.4 L* 29.6 L (39.0-51.0) % Plt Count 337 (150-450) th/mm3 BMP 05/01/18 04:25 Creatinine 0.61 <Tamiko Cooper - 05/01/18 11:30> - Imaging Impressions Abdomen/Pelvis CT 04/30/18 10:28 Review of bone windows reveals moderate degenerative changes in the lumbar spine and both SI joints. CONCLUSION: 1. Large bolus of stool in the rectum with stool throughout the colon suggesting constipation with possible impaction 2. Prominent gallbladder without stones 3. 2 nonobstructing stones in the left kidney. <Tamiko Cooper - 05/01/18 11:30> Physical Exam Vital signs: Vital Signs 04/30/18 16:00 04/30/18 20:00 04/30/18 20:10 Temperature 98.3 F 98.2 F 97.6 F Pulse Rate 57 L 63 64 Respiratory Rate 17 16 16 Blood Pressure 82/59 L 127/56 L 127/56 L Pulse Oximetry 98 98 100 04/30/18 21:26 04/30/18 22:05 04/30/18 23:02 Temperature 98.3 F Pulse Rate 60 Respiratory Rate 18 16 16 Blood Pressure 137/65 Pulse Oximetry 04/30/18 23:43 05/01/18 00:00 05/01/18 02:01 Temperature 98.3 F Pulse Rate 61 Respiratory Rate 16 16 18 Blood Pressure 151/69 H Pulse Oximetry 98 05/01/18 02:31 05/01/18 04:00 05/01/18 08:00 Temperature 98.2 F 98.2 F Pulse Rate 60 68 Respiratory Rate 16 17 17 Blood Pressure 146/60 H 165/72 H Pulse Oximetry 98 05/01/18 09:00 05/01/18 09:16 05/01/18 10:10 Temperature Pulse Rate 68 Respiratory Rate 21 Blood Pressure Pulse Oximetry 100 Intake & Output 04/30/18 05/01/18 05/01/18 18:59 06:59 18:59 Intake Total 762.5 / 762.5 2020 / 2020 Output Total 450 / 450 Balance 762.5 / 762.5 1570 / 1570 Weight 83 kg 81.5 kg Intake: IV 362.5 / 362.5 1100 / 1100 NS Inj 1,000 ML @ 120 mls/hr IV 1000 / 1000 .CONT .Q8H20M [facility] Rx#:[id number] Zerbaxa Inj 1,500 MG In NS Inj 100 / 100 100 / 100 100 ML @ 100 mls/hr IV.SIG Q8H ACE Rx#:[id number] Vancomycin Inj 1,250 MG In NS 262.5 / 262.5 Inj 250 ML @ 262.5 mls/hr IV. SIG Q24H [facility] Rx#:[id number] Oral 120 / 120 Intake (Blood Product) Amt 400 / 400 800 / 800 Rbc As-3 Leukoreduced Unit 400 / 400 [id number] Rbc As-3 Leukoreduced Unit 400 / 400 [id number] Rbc As-3 Leukoreduced Unit 400 / 400 [id number] Output: Estimated Blood Loss 150 / 150 Urine Amount (Catheter) 300 / 300 Condom 300 / 300 Other: Date of Last Bowel Movement 04/30/18 05/01/18 05/01/18 Weight On Admission 74.843 kg <Osmel Pagan - 05/01/18 13:25> Vital Signs 04/30/18 12:00 04/30/18 16:00 04/30/18 20:00 Temperature 98.3 F 98.3 F 98.2 F Pulse Rate 63 57 L 63 Respiratory Rate 17 17 16 Blood Pressure 147/62 H 82/59 L 127/56 L Pulse Oximetry 97 98 98 04/30/18 20:10 04/30/18 21:26 04/30/18 22:05 Temperature 97.6 F Pulse Rate 64 Respiratory Rate 16 18 16 Blood Pressure 127/56 L Pulse Oximetry 100 04/30/18 23:02 04/30/18 23:43 05/01/18 00:00 Temperature 98.3 F 98.3 F Pulse Rate 60 61 Respiratory Rate 16 16 16 Blood Pressure 137/65 151/69 H Pulse Oximetry 98 05/01/18 02:01 05/01/18 02:31 05/01/18 04:00 Temperature 98.2 F Pulse Rate 60 Respiratory Rate 18 16 17 Blood Pressure 146/60 H Pulse Oximetry 98 05/01/18 09:16 05/01/18 10:10 Temperature Pulse Rate Respiratory Rate 21 Blood Pressure Pulse Oximetry 100 Intake & Output 04/30/18 05/01/18 05/01/18 18:59 06:59 18:59 Intake Total 762.5 / 762.5 2020 / 2020 Output Total 450 / 450 Balance 762.5 / 762.5 1570 / 1570 Weight 83 kg 81.5 kg Intake: IV 362.5 / 362.5 1100 / 1100 NS Inj 1,000 ML @ 120 mls/hr IV 1000 / 1000 .CONT .Q8H20M [facility] Rx#:[id number] Zerbaxa Inj 1,500 MG In NS Inj 100 / 100 100 / 100 100 ML @ 100 mls/hr IV.SIG Q8H ACE Rx#:[id number] Vancomycin Inj 1,250 MG In NS 262.5 / 262.5 Inj 250 ML @ 262.5 mls/hr IV. SIG Q24H [facility] Rx#:[id number] Oral 120 / 120 Intake (Blood Product) Amt 400 / 400 800 / 800 Rbc As-3 Leukoreduced Unit 400 / 400 [id number] Rbc As-3 Leukoreduced Unit 400 / 400 [id number] Rbc As-3 Leukoreduced Unit 400 / 400 [id number] Output: Estimated Blood Loss 150 / 150 Urine Amount (Catheter) 300 / 300 Condom 300 / 300 Other: Date of Last Bowel Movement 04/30/18 05/01/18 Weight On Admission 74.843 kg <Tamiko Cooper 05/01/18 11:30> Narrative: GENERAL: Pleasant elderly male thin, appears malnourished. Alert to person and place but not time. SKIN: Cool and dry. No generalized rash. Has some scattered ecchymoses in his UE. HEAD: Atraumatic. Normocephalic. No temporal wasting, or tenderness. EYES: Anisocoria and left eye, EOMI CARDIOVASCULAR: Regular rate and rhythm. No murmurs, rubs or gallops heard RESPIRATORY: Clear to auscultation. Breath sounds equal bilaterally. No rales , wheezing or rhonchi ABDOMEN: Soft, non-tender, nondistended. No guarding. No rebound. No organomegaly. EXTREMITIES: No edema. Atrophic muscular changes in both legs bilaterally. Right heel covered in bandage. Left foot bandage dry and clean. Patient also has wound on right thigh that is bandaged. Dressing in place,with some serious sanguinous drainage. Dressing removed and wound has some serious sanguinous oozing no erythema surrounding the incision. Patient able to move toes bilaterally and no decreased sensation. Weak pulse palpated on right popliteal artery. <Tamiko Cooper 05/01/18 11:30> - Urinary Catheter Management Condom Cath placed during this visit: no <Osmel Pagan 05/01/18 13:25> no <Tamiko Cooper 05/01/18 11:30> Reason for continuing: Not indwelling catheter <Tamiko Cooper 05/01/18 11: 30> Indwelling Urethral Catheter Cath placed during this visit: no <Osmel Pagan 05/01/18 13:25> yes, but has since been removed by the nurse <Tamiko Cooper 05/01/18 11:30> Reason for continuing: Not indwelling catheter <Tamiko Cooper 05/01/18 11: 30> Insertion date: 04/11/18 <Tamiko Cooper 05/01/18 11:30> Insertion time: 21:08 <Tamiko Cooper - 05/01/18 11:30> Removal date: 04/12/18 <Tamiko Cooper - 05/01/18 11:30> Removal time: 11:35 <Tamiko Cooper 05/01/18 11:30> Straight Cath placed during this visit: no <Osmel Pagan - 05/01/18 13:25> yes <Tamiko Cooper - 05/01/18 11:30> Reason for continuing: Other continuation reason <Tamiko Cooper 05/01/18 11:30> Insertion date: 04/11/18 <Tamiko Cooper 05/01/18 11:30> Insertion time: 21:08 <Tamiko Cooper 05/01/18 11:30> Assessment and Plan - Assessment (1) Anemia Code(s): D64.9 - Anemia, unspecified Status: Acute (2) Osteomyelitis of ankle Code(s): M86.9 - Osteomyelitis, unspecified Status: Acute (3) Infection associated with internal hip prosthesis Code(s): T84.59XA - Infection and inflammatory reaction due to other internal joint prosthesis, initial encounter; Z96.649 - Presence of unspecified artificial hip joint Status: Acute (4) Chronic wound of extremity Status: Chronic (5) MRSA (methicillin resistant staph aureus) culture positive Code(s): Z22.322 - Carrier or suspected carrier of Methicillin resistant Staphylococcus aureus Status: Acute (6) PAD (peripheral artery disease) Code(s): I73.9 - Peripheral vascular disease, unspecified Status: Chronic (7) Bandemia Code(s): D72.825 - Bandemia Status: Resolved (8) Hydronephrosis Code(s): N13.30 - Unspecified hydronephrosis Status: Acute (9) HTN (hypertension) Code(s): I10 - Essential (primary) hypertension Status: Acute (10) Diabetes Code(s): E11.9 - Type 2 diabetes mellitus without complications Status: Acute (11) Malnutrition Code(s): E46 - Unspecified protein-calorie malnutrition Status: Acute (12) Anisocoria Code(s): H57.02 - Anisocoria Status: Acute (13) Nutrition, metabolism, and development symptoms Code(s): R63.8 - Other symptoms and signs concerning food and fluid intake Status: Acute <Osmel Pagan R - 05/01/18 13:25> (1) Anemia Code(s): D64.9 - Anemia, unspecified Status: Acute Plan: On admission on 04/11 patient found to have hemoglobin of 6.6 and transfused 2 units of packed RBC. Also had tarry stools and underwent endoscopy and colonoscopy which were benign except small ulcer in the rectum. Placed on PPI and iron. H and H trended -04/29 Hbg 6.5 down from 7.5 -transfused one unit of PRBC repeat H/H 04/30 6.1 -Order for additional unit of PRBC and H/H. Repeat H/H 6.6. Two additional units ordered based on critical care physician recommendations -Transfer to ICU; now that patient hemoglobin has improved and asymptomatic will transfer back to the floor. -CT abdomen: two non obstructive kidney stones and some constipation -Consulted ortho: Bleeding possibly from femoral canal. During procedure box was not used because of patient's response to previous hardware. Dr. Muñoz stated that hemoglobin should stabilize and that the bleeding could continue for up to 2 weeks after the procedure. (2) Osteomyelitis of ankle Code(s): M86.9 - Osteomyelitis, unspecified Status: Acute Plan: MRI showed evidence of osteomyelitis of right ankle which likely has been brewing for some time in this diabetic patient with PAD with chronic lower- extremity non-healing ulcers Culture positive for MRSA at different site (right thigh wound) Wound Cx of right ankle showed Pseudomonas as well as multidrug-resistant Proteus and group D enterococcus Blood cultures NGTD Afebrile Podiatry consulted, appreciate assistance; * plan for patient to have calcanectomy on 04/26 however due to patient's inability to recall presurgery discussion when seen by podiatry the morning of 04/26 Dr. Urena will no longer be performing calcanectomy procedure. * Recommends: betadine wet to dry daily and if foot/heel becomes acutely infected rec below-knee amputation of right lower extremity as patient is unable to care for himself or able to mentally process limb salvage procedure options. In addition the likelihood of failure was already high due to the low vascularity to the right lower limb. * Podiatry has signed off. Vascular surgery consulted * s/p CHAR BELT OPERATOR of popliteal stenosis on 04/24 * Anterior tibial, posterior tibia and peritoneal artery occluded Lower extremity pulses appreciated Via Doppler. Right popliteal pulse appreciated on exam * ID consulted, appreciate recs * Continue vancomycin * Continue Zerbaxa * Wound care consulted, appreciate recs * See note from 04/25 * follow recommendations * Pain management with Telferner scheduled, gabapentin, morphine for breakthrough pain (3) Infection associated with internal hip prosthesis Code(s): T84.59XA - Infection and inflammatory reaction due to other internal joint prosthesis, initial encounter; Z96.649 - Presence of unspecified artificial hip joint Status: Acute Plan: Wound care noted to patient's right hip wound to be more purulent and fluctuant yesterday Right femur MRI was ordered and results showed: -Osseous cutaneous fistulous tract extending from the greater trochanter to the skin surface with small subcutaneous fluid collection identified. The collection appears to communicate with the prosthetic component in the proximal femur. -. Edematous changes are noted along the vastus lateralis and iliotibial band. -Patient temperature on 04/28: BCX pending Follow wound care recommendations for care Orthopedic consultation: 04/27 irrigation and debridement with hardware removal and placement of antibiotic beads Recommendation: "TTWB RLE and Dressing changes daily and as needed. Incisions will have drainage for likely several days to even couple of weeks as antibiotic beads were placed along with removal of hardware and debridement of the femur leaving an open femoral canal. This should slowly stop over several days to weeks. Dressing changes as needed.Antibiotics per ID for chronic osteomyelitis. Plan for patient to follow-up in my office in 2 weeks" (4) Chronic wound of extremity Status: Chronic Plan: Patient currently follows up with wound care as an outpatient Right hip wound, super observant dressing daily Skin tear lower left extremity, Santyl covered and dry dressing daily Right heel wound, apply gentamicin cream twice daily, see above plan for associated osteomyelitis Wound care consulted, appreciate recommendations * Cleanse wound to R Achilles heel with normal saline only and pat dry. Apply gentamicin mixed with Santyl 50/ 50 and apply to wound bed * Cover with ABD pad, and secure with rolled gauze and tape. Change dressing daily, until seen by podiatry. * Cleanse wound to R hip see updated note from 04/25 * Cleanse wound to L posterior lower leg with normal saline and pat dry. Apply optifoam gentle 4x4 dressing change dressing every 3 days or PRN if saturated or dislodged. (5) MRSA (methicillin resistant staph aureus) culture positive Code(s): Z22.322 - Carrier or suspected carrier of Methicillin resistant Staphylococcus aureus Status: Acute Plan: This patient suffers from chronic nonhealing wounds likely secondary to peripheral arterial disease and DM. Patient had wound from right thigh cultured which ultimately grew MRSA. -Monitor for fevers and signs of systemic illness -Antibiotic therapy as above (6) PAD (peripheral artery disease) Code(s): I73.9 - Peripheral vascular disease, unspecified Status: Chronic Plan: s/p recent right LE arterectomy. s/p vascular procedure as above on 04/24 (7) Bandemia Code(s): D72.825 - Bandemia Status: Resolved Plan: Resolved, likely due to osteomyelitis. See above plan. (8) Hydronephrosis Code(s): N13.30 - Unspecified hydronephrosis Status: Acute Plan: Abdominal pelvis CT demonstrates development of moderate left hydronephrosis and hydroureter without ureteral obstruction. Also demonstrates stool ball in the rectum large amount of stool throughout the colon. Patient had a bladder scan 04/11 that revealed of a residual volume of 231 mL. Patient currently voiding well. Patient has no CVA tenderness. Hammer in place UA on 04/26 : negative for infection - Continue to monitor I's and O's. (9) HTN (hypertension) Code(s): I10 - Essential (primary) hypertension Status: Acute Plan: Continue Cardizem and amiodarone (10) Diabetes Code(s): E11.9 - Type 2 diabetes mellitus without complications Status: Acute Plan: Held home glipizide, Januvia Accu-Cheks Low-dose sliding scale Hypoglycemia protocol in place (11) Malnutrition Code(s): E46 - Unspecified protein-calorie malnutrition Status: Acute Plan: This patient appears thin and possibly malnourished. Patient has significant muscle atrophy in arms and legs that are partially consistent with age and lack of activity. -Begin diet mentation with Ensure (12) Anisocoria Code(s): H57.02 - Anisocoria Status: Acute Plan: Most likely chronic in view of no other alarming ophthalmologic signs/symptoms Can follow up with Ophthalmology outpatient (13) Nutrition, metabolism, and development symptoms Code(s): R63.8 - Other symptoms and signs concerning food and fluid intake Status: Acute Plan: Fluids: per PO Diet: Diabetic supplements with protein shake Electrolytes: monitor and replete as needed DVT prophylaxis: Contraindicated due to upper GI bleed Disposition: Back to SNF when ID has final antibiotic recommendations Discussed with Dr. Pagan <Tamiko Cooper - 05/01/18 11:22> - Attending Attestation This patient was seen and examined. The assessment and plan was discussed with the resident physician and I am in agreement with continued medical care as documented in this encounter. OSMEL PAGAN MD <Osmel Pagan - 05/01/18 13:25> <Tamiko Cooper - Last Filed: 05/01/18 11:22> (2) Osteomyelitis of ankle Qualifiers: Osteomyelitis type: other chronic Laterality: right Qualified Code(s): M86.671 - Other chronic osteomyelitis, right ankle and foot (8) Hydronephrosis Qualifiers: Hydronephrosis type: unspecified Qualified Code(s): N13.30 - Unspecified hydronephrosis <Osmel Pagan - Last Filed: 05/01/18 13:25> (2) Osteomyelitis of ankle Qualifiers: Osteomyelitis type: other chronic Laterality: right Qualified Code(s): M86.671 - Other chronic osteomyelitis, right ankle and foot (8) Hydronephrosis Qualifiers: Hydronephrosis type: unspecified Qualified Code(s): N13.30 - Unspecified hydronephrosis <Tamiko Cooper - Last Filed: 05/01/18 11:22> (2) Osteomyelitis of ankle Qualifiers: Osteomyelitis type: other chronic Laterality: right Qualified Code(s): M86.671 - Other chronic osteomyelitis, right ankle and foot (8) Hydronephrosis Qualifiers: Hydronephrosis type: unspecified Qualified Code(s): N13.30 - Unspecified hydronephrosis <Osmel Pagan - Last Filed: 05/01/18 13:25> (2) Osteomyelitis of ankle Qualifiers: Osteomyelitis type: other chronic Laterality: right Qualified Code(s): M86.671 - Other chronic osteomyelitis, right ankle and foot (8) Hydronephrosis Qualifiers: Hydronephrosis type: unspecified Qualified Code(s): N13.30 - Unspecified hydronephrosis
[2018-05-01] MEDS ORDERED: Pharmacy Ordered Lab Info OTHER ONE (14:45)
[2018-05-01] MEDS: Vancomycin Inj 1,250 MG in Sodium Chlor 0.9% Inj 250 ML IV.SIG SCH (15:09)
[2018-05-01 16:48] LABS: Anion Gap 10 meq/L (5-15); Blood Urea Nitrogen 14 mg/dL (7-18); Calcium 7.9 mg/dL (8.5-10.1); Carbon Dioxide 22.7 meq/L (21.0-32.0); Chloride 105 meq/L (98-107); Glomerular Filtration Rate Greater Than 89 mL/min (>89); Glucose,Random 128 mg/dL (74-106); Potassium 3.4 meq/L (3.5-5.1); Sodium 138 meq/L (136-145)
[2018-05-01] MEDS: dilTIAZem 30 MG Tablet PO SCH (19:36)
[2018-05-01] MEDS: Sod Chloride 0.9% Inj 1,000 ML IV.CONT SCH (19:37)
[2018-05-01] MEDS: Morphine Inj 4 MG/ML Vial IV.PUSH PRN (20:57)
[2018-05-02] MEDS: CEFTOLOZANE IV.SIG SCH ×3 (01:25→18:21)
[2018-05-02] MEDS: TAZOBACTAM IV.SIG SCH ×3 (01:25→18:21)
[2018-05-02] MEDS: SODIUM CHLOR 0.9% IV.SIG SCH ×3 (01:25→18:21)
[2018-05-02] MEDS: Levothyroxine 125 MCG Tablet PO SCH (06:21)
[2018-05-02 07:23] LABS: Baso # (Auto) 0.2 th/mm3 (0.0-0.2); Eos # (Auto) 0.9 th/mm3 (0.0-0.4); Eos % (Auto) 9.5 % (0.0-4.0); Hematocrit 22.5 % (39.0-51.0); Hemoglobin 7.8 gm/dL (13.0-17.0); Lymph # (Auto) 1.3 th/mm3 (1.0-4.8); Mean Corpuscular HGB Conc 34.5 % (32.0-36.0); Mean Corpuscular Hemoglobin 30.2 pg (27.0-34.0); Mean Corpuscular Volume 87.3 fL (80.0-100.0); Mean Platelet Volume 7.3 fL (7.0-11.0); Mono # (Auto) 0.8 th/mm3 (0.0-0.9); Mono % (Auto) 8.2 % (0.0-8.0); Neut # (Auto) 6.2 th/mm3 (1.8-7.7); Neut % (Auto) 66.3 % (16.0-70.0); Platelet Count 347 th/mm3 (150-450); Red Blood Count 2.57 mil/mm3 (4.50-5.90); Red Cell Distribution Width 20.9 % (11.6-17.2); White Blood Count 9.3 th/mm3 (4.0-11.0)
[2018-05-02 07:45] LABS: Anion Gap 10 meq/L (5-15); Blood Urea Nitrogen 11 mg/dL (7-18); Calcium 7.5 mg/dL (8.5-10.1); Carbon Dioxide 24.5 meq/L (21.0-32.0); Chloride 105 meq/L (98-107); Glomerular Filtration Rate Greater Than 89 mL/min (>89); Glucose,Random 127 mg/dL (74-106); Potassium 3.1 meq/L (3.5-5.1); Sodium 139 meq/L (136-145)
[2018-05-02] MEDS: Insulin NovoLOG Aspart Correctional Sugar Inj SQ SCH ×4 (09:00→21:14)
[2018-05-02] MEDS: Amiodarone 200 MG Tablet PO SCH (09:03)
[2018-05-02] MEDS: Sodium Chloride 1 GM Tablet PO SCH ×3 (09:03→18:21)
[2018-05-02] MEDS: Ferrous Sulfate 325 MG Tablet PO SCH ×3 (09:03→18:21)
[2018-05-02] MEDS: Gabapentin 300 MG Capsule PO SCH ×3 (09:03→18:21)
[2018-05-02] MEDS: Potassium Phos/Sodium Phos 250 MG Tablet PO SCH ×4 (09:03→21:12)
[2018-05-02] MEDS: Ascorbic Acid 500 MG Tablet PO SCH ×2 (09:03→21:13)
[2018-05-02] MEDS: Docusate Sodium 100 MG Capsule PO SCH ×2 (09:03→21:13)
[2018-05-02] MEDS: Polyethylene Glycol 3350 17 GM Packet PO SCH (09:04)
[2018-05-02] MEDS: Collagenase Oint 30 GM Tube TOPICAL SCH (09:15)
[2018-05-02] MEDS: Gentamicin 0.1% Cream 15 GM Cream TOPICAL SCH ×2 (09:15→21:13)
--- NOTE | 2018-05-02 09:29 | P.PNID ---
Subjective Remarks: Patient is an 87-year-old male, admitted to the hospital for evaluation of low hemoglobin. There was apparently episodes of black tarry stools. He had a GI workup on this admission, and he seemed to be stable from the GI standpoint. Patient apparently has had a wound on his right heel Achilles area. He had vascular workup, and underwent aortogram around April 08, and had atherectomy of the right SFA and popliteal area. Patient could not really tell me how long he has had the open wound. He has pain when he walks. There is been no fever and chills. On this admission podiatry was consulted. 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 There is a foul odor coming out from that right foot, and patient really could not notice any difference. Since admission he has not been febrile. He has significant pain whenever his RLE gets moved. There was a culture from a right thigh wound that has MRSA. I do not see any culture from the right foot. His initial WBC was around 14,000 and that is down to normal. Blood cultures are negative. Infectious disease consultation has been requested to evaluate the patient. Notes reviewed Temps ok Had surgery R hip 04/27 - removal of hardware Intraop C/S negative C/O pain R hip and R foot Had an acute drop in Hgb and transferred to ICU CT A/P no retroperitoneal bleed Underwent revascularization 04/24 C/S from ankle with MDR PSAE, Proteus and Enterococcus C/S R thigh MRSA (wound) Antibiotics: Vancomycin Zerbaxa Lines: PIV Past Medical History: Weakness Diabetes HLD (hyperlipidemia) MDRO (multiple drug resistant organisms) resistance Onset Date: ~04/11/18 MRSA (methicillin resistant Staphylococcus aureus) PAD (peripheral artery disease) Hip surgery Allergies/Adverse Reactions: Allergies No Known Allergies Allergy (Verified 04/08/18 12:35) Objective Vital Signs 05/01/18 10:00 05/01/18 10:10 05/01/18 11:00 Temperature Pulse Rate 69 66 Respiratory Rate 20 17 Blood Pressure 151/67 H 143/66 H Pulse Oximetry 99 100 98 05/01/18 12:00 05/01/18 13:00 05/01/18 14:00 Temperature 97.8 F Pulse Rate 61 58 L 57 L Respiratory Rate 17 18 16 Blood Pressure 130/100 H 139/62 133/63 Pulse Oximetry 98 98 98 05/01/18 15:00 05/01/18 16:00 05/01/18 16:01 Temperature Pulse Rate 59 L 72 72 Respiratory Rate 19 20 27 H Blood Pressure 149/68 H 177/81 H Pulse Oximetry 100 98 95 05/01/18 17:00 05/01/18 18:00 05/01/18 19:00 Temperature Pulse Rate 64 57 L 57 L Respiratory Rate 16 16 16 Blood Pressure 162/72 H 154/67 H 152/72 H Pulse Oximetry 05/01/18 20:00 05/01/18 21:45 05/01/18 22:00 Temperature 97.4 F L Pulse Rate 66 62 Respiratory Rate 24 17 19 Blood Pressure 139/76 Pulse Oximetry 95 97 05/01/18 22:30 05/02/18 00:00 05/02/18 00:02 Temperature 97.3 F L Pulse Rate 59 L 55 L 57 L Respiratory Rate 19 Blood Pressure 136/68 Pulse Oximetry 100 05/02/18 03:53 05/02/18 04:00 05/02/18 08:25 Temperature 97.8 F Pulse Rate 58 L 53 L Respiratory Rate 15 Blood Pressure 105/61 Pulse Oximetry 95 95 Intake & Output 05/01/18 05/02/18 05/02/18 18:59 06:59 18:59 Intake Total 500 / 500 2942.5 / 2942.5 Output Total 1200 / 1200 1700 / 1700 Balance -700 / -700 1242.5 / 1242.5 Weight 81.5 kg Intake: IV 100 / 100 2462.5 / 2462.5 NS Inj 1,000 ML @ 120 mls/hr IV 1000 / 1000 .CONT .Q8H20M ACE Rx#:[id number] Zerbaxa Inj 1,500 MG In NS Inj 100 / 100 200 / 200 100 ML @ 100 mls/hr IV.SIG Q8H ACE Rx#:[id number] NS Inj 250 ML @ 15 mls/hr IV. 500 / 500 SIG ONCE ACE Rx#:[id number] Vancomycin Inj 1,250 MG In NS 262.5 / 262.5 Inj 250 ML @ 262.5 mls/hr IV. SIG Q24H ACE Rx#:[id number] Oral 400 / 400 480 / 480 Output: Urine 1200 / 1200 Urine Amount (Catheter) 1700 / 1700 Condom 1700 / 1700 Other: Date of Last Bowel Movement 05/01/18 05/01/18 # Incontinent Bowel Movements 2 05/01/18 19:00 Stool Occult Blood - Final Hemoccult negative 04/29/18 09:05 Blood - Peripheral Aerobic Blood Culture - Preliminary No growth in 2 days 04/29/18 09:05 Blood - Peripheral Anaerobic Blood Culture - Preliminary No growth in 2 days 04/29/18 09:10 Blood - Peripheral Aerobic Blood Culture - Preliminary No growth in 2 days 04/29/18 09:10 Blood - Peripheral Anaerobic Blood Culture - Preliminary No growth in 2 days 04/27/18 12:43 Wound - Thigh Gram Stain - Final 04/27/18 12:43 Wound - Thigh Wound Culture - Final No growth in 72 hours (aerobically and anaerobically ) Lab - Hematology Results 04/30/18 04/30/18 04/30/18 17:04 19:52 19:52 WBC RBC Hgb 6.6 L* Hct 20.4 L* MCV MCH MCHC RDW Plt Count MPV Neut % (Auto) Lymph % (Auto) Cross % (Auto) Eos % (Auto) Baso % (Auto) Neut # (Auto) Lymph # (Auto) Cross # (Auto) Eos # (Auto) Baso # (Auto) WBC Differential Differential Comment Smear Path Review Haptoglobin 216 H 05/01/18 05/02/18 04:25 06:36 WBC 13.0 H 9.3 RBC 3.31 L 2.57 L Hgb 9.6 L D 7.8 L Hct 29.6 L 22.5 L MCV 89.4 D 87.3 MCH 29.0 30.2 MCHC 32.4 34.5 RDW 21.9 H D 20.9 H Plt Count 337 347 MPV 7.3 7.3 Neut % (Auto) 73.7 H 66.3 Lymph % (Auto) 10.2 14.0 Cross % (Auto) 7.2 8.2 H Eos % (Auto) 7.7 H 9.5 H Baso % (Auto) 1.2 2.0 Neut # (Auto) 9.6 H 6.2 Lymph # (Auto) 1.3 1.3 Cross # (Auto) 0.9 0.8 Eos # (Auto) 1.0 H 0.9 H Baso # (Auto) 0.2 0.2 WBC Differential . . Differential Comment Auto diff final Auto diff final Smear Path Review Haptoglobin Lab - Chemistry Results 04/30/18 04/30/18 04/30/18 08:05 11:30 18:40 Sodium Potassium Chloride Carbon Dioxide Anion Gap BUN Creatinine Estimated GFR POC Glucose 154 H 184 H 150 H Random Glucose Lactic Acid Calcium Iron TIBC % Saturation Ferritin Lactate Dehydrogenase Vitamin B12 TSH 04/30/18 04/30/18 04/30/18 19:52 19:52 21:23 Sodium Potassium Chloride Carbon Dioxide Anion Gap BUN Creatinine Estimated GFR POC Glucose 205 H Random Glucose Lactic Acid 1.6 Calcium Iron 47 L TIBC 158 L % Saturation 29.7 Ferritin 969 H Lactate Dehydrogenase 163 Vitamin B12 1158 H TSH 05/01/18 05/01/18 05/01/18 04:25 08:51 15:40 Sodium 138 Potassium 3.4 L Chloride 105 Carbon Dioxide 22.7 Anion Gap 10 BUN 14 Creatinine 0.61 0.60 Estimated GFR Greater than 89 Greater than 89 POC Glucose 195 H Random Glucose 128 H Lactic Acid Calcium 7.9 L Iron TIBC % Saturation Ferritin Lactate Dehydrogenase Vitamin B12 TSH 3.510 05/01/18 05/01/18 05/02/18 18:10 20:55 06:36 Sodium 139 Potassium 3.1 L Chloride 105 Carbon Dioxide 24.5 Anion Gap 10 BUN 11 Creatinine 0.50 L Estimated GFR Greater than 89 POC Glucose 108 112 H Random Glucose 127 H Lactic Acid Calcium 7.5 L Iron TIBC % Saturation Ferritin Lactate Dehydrogenase Vitamin B12 TSH 05/02/18 08:27 Sodium Potassium Chloride Carbon Dioxide Anion Gap BUN Creatinine Estimated GFR POC Glucose 136 H Random Glucose Lactic Acid Calcium Iron TIBC % Saturation Ferritin Lactate Dehydrogenase Vitamin B12 TSH Imaging: ITS Impressions Head CT 04/11/18 11:59 CONCLUSION: 1. Stable appearance of the brain. . Ankle MRI 04/15/18 00:00 CONCLUSION: 1. Osteomyelitis of the posterior calcaneus with a near complete tear of the distal Achilles tendon. There is overlying cellulitis and subcutaneous edema with a small abscess adjacent to the distal Achilles tendon as measured above. There is edematous change on the plantar aspect of the foot with a tenosynovitis as above. No acute fracture identified. Mild bone edema tibia, nonspecific. Ankle X-Ray 04/15/18 00:00 CONCLUSION: Osteomyelitis of the posterior calcaneus with overlying soft tissue swelling and ulceration. No acute fracture. Femur MRI 04/25/18 00:00 CONCLUSION: 1. 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 The collection appears to communicate with the prosthetic component in the proximal femur. 2. Edematous changes are noted along the vastus lateralis and iliotibial band. Hip X-Ray 04/27/18 00:00 CONCLUSION: Hardware removal on the right. Abdomen/Pelvis CT 04/30/18 10:28 Review of bone windows reveals moderate degenerative changes in the lumbar spine and both SI joints. CONCLUSION: 1. Large bolus of stool in the rectum with stool throughout the colon suggesting constipation with possible impaction 2. Prominent gallbladder without stones 3. 2 nonobstructing stones in the left kidney. Physical Exam: GENERAL: awake and alert, not in respiratory distress. SKIN: Cool and dry. No generalized rash. EYES: [place] conjunctiva. No petechia or hemorrhage. No scleral icterus. No injection or drainage. EARS, NOSE AND THROAT: Mucous membranes pink and moist. No oral lesions noted. No exudate. No oral thrush. NECK: Trachea midline. Supple and not tender, no meningeal signs CARDIOVASCULAR: Regular rate and rhythm. No murmurs, rubs or gallops heard RESPIRATORY: Clear to auscultation. Breath sounds equal bilaterally. No rales , wheezing or rhonchi ABDOMEN: Soft, non-tender, nondistended. Bowel sounds present and normoactive. No guarding. No rebound. No organomegaly. EXTREMITIES: No clubbing, cyanosis, or edema. R foot - ulcer has black eschar , drying up, some mild bogginess at heel, no odor. Has some purplish areas on plantar aspect, dorsum of foot, and tip of big toe and second toe. Dressing R hip with bloody drainage NEURO: Awake and alert PSYCH: Cooperative LINE: No evidence of infection Assessment and Plan - Plan Impression Non-healing wound R heel/achilles area with abscess and osteo posterior calcaneus PVD S/P revascularization RLE 04/24 Infection R femur, has sinus tract on MRI, S/P RAZA, C/S MRSA GIB Leukocytosis, resolved Anemia Recommendation Continue IV Vanco - needs until Jun 07, 6 weeks after hardware removal for the R hip Continue Zerbaxa - for the heel ulcer and osteo SNF not taking patient at this time due to cost of Zerbaxa Monitor progress
[2018-05-02 12:53] LABS: Hematocrit 28.4 % (39.0-51.0); Hemoglobin 9.6 gm/dL (13.0-17.0)
--- NOTE | 2018-05-02 13:04 | P.PNFP ---
Subjective Interval history: Patient seen and examined at bedside. No acute events overnight. Patient reports that he feels well. Still complaining of pain on right leg worse with movement otherwise pain is tolerable. Denies any fever, chills, chest pain, shortness of breath, palpitations, dizziness, headaches, nausea, vomiting, abdominal pain. Discussed with patient that due to him requiring treatment with Zerbaxa antibiotic he was not able to be discharged to his previous SNF because they are not able cover high cost of abx. Patient does not want an amputation of R. lower ext. <Sakshi Garza D - 05/02/18 15:09> Results - Labs Result diagrams: 05/03/18 06:41 05/03/18 06:41 <Osmel Pagan R - 05/03/18 10:03> Abnormal lab results 05/02/18 05/02/18 05/02/18 Range/Units 12:13 12:57 17:33 RBC (4.50-5.90) mil/mm3 Hgb 9.6 L (13.0-17.0) gm/dL Hct 28.4 L (39.0-51.0) % RDW (11.6-17.2) % [place] % (Auto) (0.0-8.0) % Eos % (Auto) (0.0-4.0) % Baso % (Auto) (0.0-2.0) % Eos # (Auto) (0.0-0.4) th/mm3 Potassium (3.5-5.1) meq/L POC Glucose 181 H 168 H (68-110) mg/dl Random Glucose (74-106) mg/dL Calcium (8.5-10.1) mg/dL Prot Corrected Calcium (8.5-10.1) mg/dL Total Protein (6.4-8.2) g/dL 05/02/18 05/03/18 05/03/18 Range/Units 19:20 06:41 06:41 RBC 2.81 L (4.50-5.90) mil/mm3 Hgb 8.4 L (13.0-17.0) gm/dL Hct 24.9 L (39.0-51.0) % RDW 20.2 H (11.6-17.2) % [place] % (Auto) 8.9 H (0.0-8.0) % Eos % (Auto) 9.7 H (0.0-4.0) % Baso % (Auto) 2.4 H (0.0-2.0) % Eos # (Auto) 0.9 H (0.0-0.4) th/mm3 Potassium 3.4 L (3.5-5.1) meq/L POC Glucose 156 H (68-110) mg/dl Random Glucose 215 H (74-106) mg/dL Calcium 7.4 L* (8.5-10.1) mg/dL Prot Corrected Calcium 8.2 L (8.5-10.1) mg/dL Total Protein 5.7 L (6.4-8.2) g/dL 05/03/18 Range/Units 07:32 RBC (4.50-5.90) mil/mm3 Hgb (13.0-17.0) gm/dL Hct (39.0-51.0) % RDW (11.6-17.2) % [place] % (Auto) (0.0-8.0) % Eos % (Auto) (0.0-4.0) % Baso % (Auto) (0.0-2.0) % Eos # (Auto) (0.0-0.4) th/mm3 Potassium (3.5-5.1) meq/L POC Glucose 270 H (68-110) mg/dl Random Glucose (74-106) mg/dL Calcium (8.5-10.1) mg/dL Prot Corrected Calcium (8.5-10.1) mg/dL Total Protein (6.4-8.2) g/dL Short CBC 05/02/18 05/03/18 Range/Units 12:13 06:41 WBC 9.2 (4.0-11.0) th/mm3 Hgb 9.6 L 8.4 L (13.0-17.0) gm/dL Hct 28.4 L 24.9 L (39.0-51.0) % Plt Count 384 (150-450) th/mm3 BMP 05/03/18 06:41 Sodium 138 Potassium 3.4 L Chloride 104 Carbon Dioxide 26.9 BUN 11 Creatinine 0.69 Calcium 7.4 L* <Osmel Pagan R - 05/03/18 10:03> Abnormal lab results 05/01/18 05/01/18 05/01/18 Range/Units 15:40 15:40 20:55 RBC (4.50-5.90) mil/mm3 Hgb (13.0-17.0) gm/dL Hct (39.0-51.0) % RDW (11.6-17.2) % [place] % (Auto) (0.0-8.0) % Eos % (Auto) (0.0-4.0) % Eos # (Auto) (0.0-0.4) th/mm3 Potassium 3.4 L (3.5-5.1) meq/L Creatinine (0.60-1.30) mg/dL POC Glucose 112 H (68-110) mg/dl Random Glucose 128 H (74-106) mg/dL Calcium 7.9 L (8.5-10.1) mg/dL Vancomycin Trough 15.9 H (5.0-10.0) mcg/mL 05/02/18 05/02/18 05/02/18 Range/Units 06:36 06:36 08:27 RBC 2.57 L (4.50-5.90) mil/mm3 Hgb 7.8 L (13.0-17.0) gm/dL Hct 22.5 L (39.0-51.0) % RDW 20.9 H (11.6-17.2) % [place] % (Auto) 8.2 H (0.0-8.0) % Eos % (Auto) 9.5 H (0.0-4.0) % Eos # (Auto) 0.9 H (0.0-0.4) th/mm3 Potassium 3.1 L (3.5-5.1) meq/L Creatinine 0.50 L (0.60-1.30) mg/dL POC Glucose 136 H (68-110) mg/dl Random Glucose 127 H (74-106) mg/dL Calcium 7.5 L (8.5-10.1) mg/dL Vancomycin Trough (5.0-10.0) mcg/mL 05/02/18 05/02/18 Range/Units 12:13 12:57 RBC (4.50-5.90) mil/mm3 Hgb 9.6 L (13.0-17.0) gm/dL Hct 28.4 L (39.0-51.0) % RDW (11.6-17.2) % [place] % (Auto) (0.0-8.0) % Eos % (Auto) (0.0-4.0) % Eos # (Auto) (0.0-0.4) th/mm3 Potassium (3.5-5.1) meq/L Creatinine (0.60-1.30) mg/dL POC Glucose 181 H (68-110) mg/dl Random Glucose (74-106) mg/dL Calcium (8.5-10.1) mg/dL Vancomycin Trough (5.0-10.0) mcg/mL Short CBC 05/02/18 05/02/18 Range/Units 06:36 12:13 WBC 9.3 (4.0-11.0) th/mm3 Hgb 7.8 L 9.6 L (13.0-17.0) gm/dL Hct 22.5 L 28.4 L (39.0-51.0) % Plt Count 347 (150-450) th/mm3 BMP 05/01/18 05/02/18 15:40 06:36 Sodium 138 139 Potassium 3.4 L 3.1 L Chloride 105 105 Carbon Dioxide 22.7 24.5 BUN 14 11 Creatinine 0.60 0.50 L Calcium 7.9 L 7.5 L <Sakshi Garza D - 05/02/18 13:04> Physical Exam Vital signs: Vital Signs 05/02/18 12:00 05/02/18 16:00 05/02/18 20:00 Temperature 97.4 F L 98 F 98.4 F Pulse Rate 65 64 62 Respiratory Rate 18 18 19 Blood Pressure 153/77 H 136/72 145/66 H Pulse Oximetry 95 99 100 05/03/18 00:00 05/03/18 03:26 05/03/18 04:00 Temperature 98 F 98.9 F Pulse Rate 58 L 61 55 L Respiratory Rate 16 16 Blood Pressure 129/62 155/71 H Pulse Oximetry 96 95 05/03/18 08:00 Temperature 97.5 F L Pulse Rate 54 L Respiratory Rate 17 Blood Pressure 138/63 Pulse Oximetry 98 Intake & Output 05/02/18 05/03/18 05/03/18 18:59 06:59 18:59 Intake Total 842.5 / 842.5 200 / 200 100 / 100 Output Total 800 / 800 850 / 850 Balance 42.5 / 42.5 -650 / -650 100 / 100 Weight 86.4 kg Intake: IV 362.5 / 362.5 200 / 200 100 / 100 Zerbaxa Inj 1,500 MG In NS Inj 100 / 100 200 / 200 100 / 100 100 ML @ 100 mls/hr IV.SIG Q8H [facility] Rx#:[id number] Vancomycin Inj 1,250 MG In NS 262.5 / 262.5 Inj 250 ML @ 262.5 mls/hr IV. SIG Q24H ACE Rx#:[id number] Oral 480 / 480 Output: Urine Amount (Catheter) 800 / 800 850 / 850 Condom 800 / 800 850 / 850 Other: # Incontinent Voids 1 Date of Last Bowel Movement 05/01/18 05/01/18 # Bowel Movements 1 # Incontinent Bowel Movements 2 <Osmel Pagan R - 05/03/18 10:03> Vital Signs 05/01/18 14:00 05/01/18 15:00 05/01/18 16:00 Temperature Pulse Rate 57 L 59 L 72 Respiratory Rate 16 19 20 Blood Pressure 133/63 149/68 H Pulse Oximetry 98 100 98 05/01/18 16:01 05/01/18 17:00 05/01/18 18:00 Temperature Pulse Rate 72 64 57 L Respiratory Rate 27 H 16 16 Blood Pressure 177/81 H 162/72 H 154/67 H Pulse Oximetry 95 05/01/18 19:00 05/01/18 20:00 05/01/18 21:45 Temperature 97.4 F L Pulse Rate 57 L 66 62 Respiratory Rate 16 24 17 Blood Pressure 152/72 H 139/76 Pulse Oximetry 95 97 05/01/18 22:00 05/01/18 22:30 05/02/18 00:00 Temperature Pulse Rate 59 L 55 L Respiratory Rate 19 Blood Pressure Pulse Oximetry 05/02/18 00:02 05/02/18 03:53 05/02/18 04:00 Temperature 97.3 F L 97.8 F Pulse Rate 57 L 58 L 53 L Respiratory Rate 19 15 Blood Pressure 136/68 105/61 Pulse Oximetry 100 95 05/02/18 08:00 05/02/18 08:25 05/02/18 12:00 Temperature 97.5 F L 97.4 F L Pulse Rate 54 L 65 Respiratory Rate 18 18 Blood Pressure 143/74 H 153/77 H Pulse Oximetry 95 95 95 Intake & Output 05/01/18 05/02/18 05/02/18 18:59 06:59 18:59 Intake Total 500 / 500 2942.5 / 2942.5 100 / 100 Output Total 1200 / 1200 1700 / 1700 Balance -700 / -700 1242.5 / 1242.5 100 / 100 Weight 81.5 kg Intake: IV 100 / 100 2462.5 / 2462.5 100 / 100 NS Inj 1,000 ML @ 120 mls/hr IV 1000 / 1000 .CONT .Q8H20M [facility] Rx#:[id number] Zerbaxa Inj 1,500 MG In NS Inj 100 / 100 200 / 200 100 / 100 100 ML @ 100 mls/hr IV.SIG Q8H ACE Rx#:[id number] NS Inj 250 ML @ 15 mls/hr IV. 500 / 500 SIG ONCE ACE Rx#:[id number] Vancomycin Inj 1,250 MG In NS 262.5 / 262.5 Inj 250 ML @ 262.5 mls/hr IV. SIG Q24H ACE Rx#:[id number] Oral 400 / 400 480 / 480 Output: Urine 1200 / 1200 Urine Amount (Catheter) 1700 / 1700 Condom 1700 / 1700 Other: Date of Last Bowel Movement 05/01/18 05/01/18 05/01/18 # Incontinent Bowel Movements 2 <Sakshi Garza - 05/02/18 13:04> Narrative: GENERAL: Pleasant elderly male thin, appears malnourished. Alert to person and place but not time. SKIN: Cool and dry. No generalized rash. Has some scattered ecchymoses in his UE. HEAD: Atraumatic. Normocephalic. No temporal wasting, or tenderness. EYES: Anisocoria and left eye, EOMI CARDIOVASCULAR: Regular rate and rhythm. No murmurs, rubs or gallops heard RESPIRATORY: Clear to auscultation. Breath sounds equal bilaterally. No rales , wheezing or rhonchi ABDOMEN: Soft, non-tender, nondistended. No guarding. No rebound. No organomegaly. EXTREMITIES: No edema. Atrophic muscular changes in both legs bilaterally. Right heel covered in bandage. Left foot bandage dry and clean. Patient also has wound on right thigh that is bandaged. Dressing in place,with some serious sanguinous drainage. Dressing removed and wound has some serious sanguinous oozing no erythema surrounding the incision. Patient able to move toes bilaterally and no decreased sensation. Weak pulse palpated on right popliteal artery. <Wilner Garzaly D - 05/02/18 15:09> - Urinary Catheter Management Condom Cath placed during this visit: no <Latosha Paganil R - 05/03/18 10:03> no <CalzaWilner myrickly D - 05/02/18 15:09> Reason for continuing: Not indwelling catheter <CalzaWilner myrickly D - 05/02/18 13: 04> Indwelling Urethral Catheter Cath placed during this visit: no <Osmel Pagan R - 05/03/18 10:03> yes, but has since been removed by the nurse <Wilner Garzaly D - 05/02/18 15:09> Reason for continuing: Not indwelling catheter <CalzaWilner myrickly D - 05/02/18 13: 04> Insertion date: 04/11/18 <CalzaWilner myrickly D - 05/02/18 13:04> Insertion time: 21:08 <CalzadoSakshi D - 05/02/18 13:04> Removal date: 04/12/18 <CalzaWilner myrickly D - 05/02/18 13:04> Removal time: 11:35 <CalzadoSakshi D - 05/02/18 13:04> Straight Cath placed during this visit: no <OsazOsmel R - 05/03/18 10:03> yes <CalzaWilner myrickly D - 05/02/18 15:09> Reason for continuing: Other continuation reason <CalzadoSakshi D - 05/02/18 13:04> Insertion date: 04/11/18 <CalzadoSakshi D - 05/02/18 13:04> Insertion time: 21:08 <CalzadoSakshi D - 05/02/18 13:04> Assessment and Plan - Assessment (1) Anemia Code(s): D64.9 - Anemia, unspecified Status: Acute (2) Osteomyelitis of ankle Code(s): M86.9 - Osteomyelitis, unspecified Status: Acute (3) Infection associated with internal hip prosthesis Code(s): T84.59XA - Infection and inflammatory reaction due to other internal joint prosthesis, initial encounter; Z96.649 - Presence of unspecified artificial hip joint Status: Acute (4) Chronic wound of extremity Status: Chronic (5) MRSA (methicillin resistant staph aureus) culture positive Code(s): Z22.322 - Carrier or suspected carrier of Methicillin resistant Staphylococcus aureus Status: Acute (6) PAD (peripheral artery disease) Code(s): I73.9 - Peripheral vascular disease, unspecified Status: Chronic (7) Bandemia Code(s): D72.825 - Bandemia Status: Resolved (8) Hydronephrosis Code(s): N13.30 - Unspecified hydronephrosis Status: Acute (9) HTN (hypertension) Code(s): I10 - Essential (primary) hypertension Status: Acute (10) Diabetes Code(s): E11.9 - Type 2 diabetes mellitus without complications Status: Acute (11) Malnutrition Code(s): E46 - Unspecified protein-calorie malnutrition Status: Acute (12) Anisocoria Code(s): H57.02 - Anisocoria Status: Acute (13) Nutrition, metabolism, and development symptoms Code(s): R63.8 - Other symptoms and signs concerning food and fluid intake Status: Acute <Osmel Pagan - 05/03/18 10:03> (1) Anemia Code(s): D64.9 - Anemia, unspecified Status: Acute Plan: On admission on 04/11 patient found to have hemoglobin of 6.6 and transfused 2 units of packed RBC. Also had tarry stools and underwent endoscopy and colonoscopy which were benign except small ulcer in the rectum. Placed on PPI and iron. H and H trended -04/29 Hbg 6.5 down from 7.5 -transfused one unit of PRBC repeat H/H 04/30 6.1 -Order for additional unit of PRBC and H/H. Repeat H/H 6.6. Two additional units ordered based on critical care physician recommendations -Transferred to ICU; once patient's hemoglobin improved and asymptomatic transferred back to the floor. -CT abdomen: two non obstructive kidney stones and some constipation -Consulted ortho: Bleeding possibly from femoral canal. During procedure box was not used because of patient's response to previous hardware. Dr. Muñoz stated that hemoglobin should stabilize and that the bleeding could continue for up to 2 weeks after the procedure. H/H stable and improved 9.6/28.4 (2) Osteomyelitis of ankle Code(s): M86.9 - Osteomyelitis, unspecified Status: Acute Plan: MRI showed evidence of osteomyelitis of right ankle which likely has been brewing for some time in this diabetic patient with PAD with chronic lower- extremity non-healing ulcers Culture positive for MRSA at different site (right thigh wound) Wound Cx of right ankle showed Pseudomonas as well as multidrug-resistant Proteus and group D enterococcus Blood cultures NGTD Afebrile Podiatry consulted, appreciate assistance; * plan for patient to have calcanectomy on 04/26 however due to patient's inability to recall presurgery discussion when seen by podiatry the morning of 04/26 Dr. Urena will no longer be performing calcanectomy procedure. * Recommends: betadine wet to dry daily and if foot/heel becomes acutely infected rec as patient is unable to care for himself or able to mentally process limb salvage procedure options. In addition, the likelihood of failure was already high due to the low vascularity to the right lower limb. * Podiatry has signed off. * Discussed option of below-knee amputation of right lower extremity Patient still not interested Vascular surgery consulted * s/p BANK EXAMINER of popliteal stenosis on 04/24 * Anterior tibial, posterior tibia and peritoneal artery occluded Lower extremity pulses appreciated Via Doppler. Right popliteal pulse appreciated on exam * ID consulted, appreciate recs * Continue vancomycin * Continue Zerbaxa * Wound care consulted, appreciate recs * See note from 04/25 * follow recommendations * Pain management with [place] scheduled, gabapentin, morphine for breakthrough pain (3) Infection associated with internal hip prosthesis Code(s): T84.59XA - Infection and inflammatory reaction due to other internal joint prosthesis, initial encounter; Z96.649 - Presence of unspecified artificial hip joint Status: Acute Plan: Wound care noted patient's right hip wound to be more purulent and fluctuant on 04/25 Right femur MRI was ordered and results showed: -Osseous cutaneous fistulous tract extending from the greater trochanter to the skin surface with small subcutaneous fluid collection identified. The collection appears to communicate with the prosthetic component in the proximal femur. -. Edematous changes are noted along the vastus lateralis and iliotibial band. -Patient spiked fever on 04/28: BCX no growth to date Follow wound care recommendations for care Orthopedic consultation: 04/27 irrigation and debridement with hardware removal and placement of antibiotic beads Recommendation: "TTWB RLE and Dressing changes daily and as needed. Incisions will have drainage for likely several days to even couple of weeks as antibiotic beads were placed along with removal of hardware and debridement of the femur leaving an open femoral canal. This should slowly stop over several days to weeks. Dressing changes as needed.Antibiotics per ID for chronic osteomyelitis. Plan for patient to follow-up in my office in 2 weeks" (4) Chronic wound of extremity Status: Chronic Plan: Patient currently follows up with wound care as an outpatient Right hip wound, super observant dressing daily Skin tear lower left extremity, Santyl covered and dry dressing daily Right heel wound, apply gentamicin cream twice daily, see above plan for associated osteomyelitis Wound care consulted, appreciate recommendations * Cleanse wound to R Achilles heel with normal saline only and pat dry. Apply gentamicin mixed with Santyl 50/ 50 and apply to wound bed * Cover with ABD pad, and secure with rolled gauze and tape. Change dressing daily, until seen by podiatry. * Cleanse wound to R hip see updated note from 04/25 * Cleanse wound to L posterior lower leg with normal saline and pat dry. Apply optifoam gentle 4x4 dressing change dressing every 3 days or PRN if saturated or dislodged. (5) MRSA (methicillin resistant staph aureus) culture positive Code(s): Z22.322 - Carrier or suspected carrier of Methicillin resistant Staphylococcus aureus Status: Acute Plan: This patient suffers from chronic nonhealing wounds likely secondary to peripheral arterial disease and DM. Patient had wound from right thigh cultured which ultimately grew MRSA. -Monitor for fevers and signs of systemic illness -Antibiotic therapy as above (6) PAD (peripheral artery disease) Code(s): I73.9 - Peripheral vascular disease, unspecified Status: Chronic Plan: s/p recent right LE arterectomy. s/p vascular procedure as above on 04/24 (7) Bandemia Code(s): D72.825 - Bandemia Status: Resolved Plan: Resolved, likely due to osteomyelitis. See above plan. (8) Hydronephrosis Code(s): N13.30 - Unspecified hydronephrosis Status: Acute Plan: Abdominal pelvis CT demonstrates development of moderate left hydronephrosis and hydroureter without ureteral obstruction. Also demonstrates stool ball in the rectum large amount of stool throughout the colon. Patient had a bladder scan 04/11 that revealed of a residual volume of 231 mL. Patient currently voiding well. Patient has no CVA tenderness. Hammer in place UA on 04/26 : negative for infection - Continue to monitor I's and O's. (9) HTN (hypertension) Code(s): I10 - Essential (primary) hypertension Status: Acute Plan: Continue Cardizem and amiodarone (10) Diabetes Code(s): E11.9 - Type 2 diabetes mellitus without complications Status: Acute Plan: Held home glipizide, Januvia Accu-Cheks Low-dose sliding scale Hypoglycemia protocol in place (11) Malnutrition Code(s): E46 - Unspecified protein-calorie malnutrition Status: Acute Plan: This patient appears thin and possibly malnourished. Patient has significant muscle atrophy in arms and legs that are partially consistent with age and lack of activity. -Begin diet supplementation with Ensure (12) Anisocoria Code(s): H57.02 - Anisocoria Status: Acute Plan: Most likely chronic in view of no other alarming ophthalmologic signs/symptoms Can follow up with Ophthalmology outpatient (13) Nutrition, metabolism, and development symptoms Code(s): R63.8 - Other symptoms and signs concerning food and fluid intake Status: Acute Plan: Fluids: per PO Diet: Diabetic supplements with protein shake Electrolytes: monitor and replete as needed DVT prophylaxis: Contraindicated due to upper GI bleed Disposition: SNF not taking patient at this time due to cost of Zerbaxa <Sakshi Garza - 05/02/18 14:45> - Attending Attestation The assessment and plan was discussed with the resident physician and I am in agreement with continued medical care as documented in this encounter. OSMEL PAGAN MD <Osmel Pagan - 05/03/18 10:03> <CalzadoWilnerSakshi D - Last Filed: 05/02/18 14:45> (2) Osteomyelitis of ankle Qualifiers: Osteomyelitis type: other chronic Laterality: right Qualified Code(s): M86.671 - Other chronic osteomyelitis, right ankle and foot (8) Hydronephrosis Qualifiers: Hydronephrosis type: unspecified Qualified Code(s): N13.30 - Unspecified hydronephrosis <Osmel Pagan R - Last Filed: 05/03/18 10:03> (2) Osteomyelitis of ankle Qualifiers: Osteomyelitis type: other chronic Laterality: right Qualified Code(s): M86.671 - Other chronic osteomyelitis, right ankle and foot (8) Hydronephrosis Qualifiers: Hydronephrosis type: unspecified Qualified Code(s): N13.30 - Unspecified hydronephrosis <CalzadoSakshi D - Last Filed: 05/02/18 14:45> (2) Osteomyelitis of ankle Qualifiers: Osteomyelitis type: other chronic Laterality: right Qualified Code(s): M86.671 - Other chronic osteomyelitis, right ankle and foot (8) Hydronephrosis Qualifiers: Hydronephrosis type: unspecified Qualified Code(s): N13.30 - Unspecified hydronephrosis <Osmel Pagan - Last Filed: 05/03/18 10:03> (2) Osteomyelitis of ankle Qualifiers: Osteomyelitis type: other chronic Laterality: right Qualified Code(s): M86.671 - Other chronic osteomyelitis, right ankle and foot (8) Hydronephrosis Qualifiers: Hydronephrosis type: unspecified Qualified Code(s): N13.30 - Unspecified hydronephrosis
--- NOTE | 2018-05-02 14:41 | P.PNOP ---
Subjective Interval history: Currently, have bedding changed but states relatively comfortable Physical Exam Vital signs: Vital Signs 05/01/18 15:00 05/01/18 16:00 05/01/18 16:01 Temperature Pulse Rate 59 L 72 72 Respiratory Rate 19 20 27 H Blood Pressure 149/68 H 177/81 H Pulse Oximetry 100 98 95 05/01/18 17:00 05/01/18 18:00 05/01/18 19:00 Temperature Pulse Rate 64 57 L 57 L Respiratory Rate 16 16 16 Blood Pressure 162/72 H 154/67 H 152/72 H Pulse Oximetry 05/01/18 20:00 05/01/18 21:45 05/01/18 22:00 Temperature 97.4 F L Pulse Rate 66 62 Respiratory Rate 24 17 19 Blood Pressure 139/76 Pulse Oximetry 95 97 05/01/18 22:30 05/02/18 00:00 05/02/18 00:02 Temperature 97.3 F L Pulse Rate 59 L 55 L 57 L Respiratory Rate 19 Blood Pressure 136/68 Pulse Oximetry 100 05/02/18 03:53 05/02/18 04:00 05/02/18 08:00 Temperature 97.8 F 97.5 F L Pulse Rate 58 L 53 L 54 L Respiratory Rate 15 18 Blood Pressure 105/61 143/74 H Pulse Oximetry 95 95 05/02/18 08:25 05/02/18 12:00 Temperature 97.4 F L Pulse Rate 65 Respiratory Rate 18 Blood Pressure 153/77 H Pulse Oximetry 95 95 Intake & Output 05/01/18 05/02/18 05/02/18 18:59 06:59 18:59 Intake Total 500 / 500 2942.5 / 2942.5 100 / 100 Output Total 1200 / 1200 1700 / 1700 Balance -700 / -700 1242.5 / 1242.5 100 / 100 Weight 81.5 kg Intake: IV 100 / 100 2462.5 / 2462.5 100 / 100 NS Inj 1,000 ML @ 120 mls/hr IV 1000 / 1000 .CONT .Q8H20M ACE Rx#:[id number] Zerbaxa Inj 1,500 MG In NS Inj 100 / 100 200 / 200 100 / 100 100 ML @ 100 mls/hr IV.SIG Q8H ACE Rx#:[id number] NS Inj 250 ML @ 15 mls/hr IV. 500 / 500 SIG ONCE ACE Rx#:[id number] Vancomycin Inj 1,250 MG In NS 262.5 / 262.5 Inj 250 ML @ 262.5 mls/hr IV. SIG Q24H ACE Rx#:[id number] Oral 400 / 400 480 / 480 Output: Urine 1200 / 1200 Urine Amount (Catheter) 1700 / 1700 Condom 1700 / 1700 Other: Date of Last Bowel Movement 05/01/18 05/01/18 05/01/18 # Incontinent Bowel Movements 2 Narrative: Awake, alert, NAD RLE: dressing in place with serosanguinous drainage. Proximal incision appears relatively dry. More distal incision with expressible serosanguinous drainage, although does not appear to be active bloody drainage but rather blood tinged serous drainage as expected. - Urinary Catheter Management Straight Cath placed during this visit: yes Reason for continuing: Other continuation reason Insertion date: 04/11/18 Insertion time: 21:08 Indwelling Urethral Catheter Cath placed during this visit: yes, but has since been removed by the nurse Reason for continuing: Not indwelling catheter Insertion date: 04/11/18 Insertion time: 21:08 Removal date: 04/12/18 Removal time: 11:35 Condom Cath placed during this visit: no Reason for continuing: Not indwelling catheter Results - Labs CBC & Chem 7: 05/02/18 12:13 05/02/18 06:36 Laboratory Results - last 24 hr 05/01/18 05/01/18 05/01/18 15:40 15:40 18:10 WBC RBC Hgb Hct MCV MCH MCHC RDW Plt Count MPV Neut % (Auto) Lymph % (Auto) [place] % (Auto) Eos % (Auto) Baso % (Auto) Neut # (Auto) Lymph # (Auto) [place] # (Auto) Eos # (Auto) Baso # (Auto) WBC Differential Differential Comment Sodium 138 Potassium 3.4 L Chloride 105 Carbon Dioxide 22.7 Anion Gap 10 BUN 14 Creatinine 0.60 Estimated GFR Greater than 89 POC Glucose 108 Random Glucose 128 H Calcium 7.9 L Vancomycin Trough 15.9 H 05/01/18 05/02/18 05/02/18 20:55 06:36 06:36 WBC 9.3 RBC 2.57 L Hgb 7.8 L Hct 22.5 L MCV 87.3 MCH 30.2 MCHC 34.5 RDW 20.9 H Plt Count 347 MPV 7.3 Neut % (Auto) 66.3 Lymph % (Auto) 14.0 [place] % (Auto) 8.2 H Eos % (Auto) 9.5 H Baso % (Auto) 2.0 Neut # (Auto) 6.2 Lymph # (Auto) 1.3 [place] # (Auto) 0.8 Eos # (Auto) 0.9 H Baso # (Auto) 0.2 WBC Differential . Differential Comment Auto diff final Sodium 139 Potassium 3.1 L Chloride 105 Carbon Dioxide 24.5 Anion Gap 10 BUN 11 Creatinine 0.50 L Estimated GFR Greater than 89 POC Glucose 112 H Random Glucose 127 H Calcium 7.5 L Vancomycin Trough 05/02/18 05/02/18 05/02/18 08:27 12:13 12:57 WBC RBC Hgb 9.6 L Hct 28.4 L MCV MCH MCHC RDW Plt Count MPV Neut % (Auto) Lymph % (Auto) [place] % (Auto) Eos % (Auto) Baso % (Auto) Neut # (Auto) Lymph # (Auto) [place] # (Auto) Eos # (Auto) Baso # (Auto) WBC Differential Differential Comment Sodium Potassium Chloride Carbon Dioxide Anion Gap BUN Creatinine Estimated GFR POC Glucose 136 H 181 H Random Glucose Calcium Vancomycin Trough Microbiology 04/29/18 09:05 Blood - Peripheral Aerobic Blood Culture - Preliminary No growth in 3 days 04/29/18 09:05 Blood - Peripheral Anaerobic Blood Culture - Preliminary No growth in 3 days 04/29/18 09:10 Blood - Peripheral Aerobic Blood Culture - Preliminary No growth in 3 days 04/29/18 09:10 Blood - Peripheral Anaerobic Blood Culture - Preliminary No growth in 3 days 05/01/18 19:00 Stool Occult Blood - Final Hemoccult negative Assessment and Plan - Assessment and Plan 87yo M POD#5 s/p I&D R hip with hardware removal 1. TTWB RLE 2. Dressing changes daily and as needed. Incisions will have drainage for likely several days to even a couple of weeks as antibiotic beads were placed along with removal of hardware and debridement of the femur leaving an open femoral canal. Although this does appear to be more serous than bloody drainage at this time. This should slowly stop over several days to weeks. Dressing changes as needed. 3. Anemia - will defer to primary team for transfusion 4. Antibiotics per ID for chronic osteomyelitis 5. Plan for patient to follow-up in my office in 2 weeks.
[2018-05-02] MEDS: Vancomycin Inj 1,250 MG in Sodium Chlor 0.9% Inj 250 ML IV.SIG SCH (14:42)
[2018-05-03] MEDS: CEFTOLOZANE IV.SIG SCH ×3 (02:00→17:29)
[2018-05-03] MEDS: TAZOBACTAM IV.SIG SCH ×3 (02:00→17:29)
[2018-05-03] MEDS: SODIUM CHLOR 0.9% IV.SIG SCH ×3 (02:00→17:29)
[2018-05-03] MEDS: Levothyroxine 125 MCG Tablet PO SCH (05:33)
[2018-05-03 07:23] LABS: Baso # (Auto) 0.2 th/mm3 (0.0-0.2); Baso % (Auto) 2.4 % (0.0-2.0); Eos # (Auto) 0.9 th/mm3 (0.0-0.4); Eos % (Auto) 9.7 % (0.0-4.0); Hematocrit 24.9 % (39.0-51.0); Hemoglobin 8.4 gm/dL (13.0-17.0); Lymph # (Auto) 1.2 th/mm3 (1.0-4.8); Lymph % (Auto) 13.4 % (9.0-44.0); Mean Corpuscular HGB Conc 33.6 % (32.0-36.0); Mean Corpuscular Hemoglobin 29.8 pg (27.0-34.0); Mean Corpuscular Volume 88.6 fL (80.0-100.0); Mean Platelet Volume 7.1 fL (7.0-11.0); Mono # (Auto) 0.8 th/mm3 (0.0-0.9); Mono % (Auto) 8.9 % (0.0-8.0); Neut % (Auto) 65.6 % (16.0-70.0); Platelet Count 384 th/mm3 (150-450); Red Blood Count 2.81 mil/mm3 (4.50-5.90); Red Cell Distribution Width 20.2 % (11.6-17.2); White Blood Count 9.2 th/mm3 (4.0-11.0)
[2018-05-03 07:59] LABS: Anion Gap 7 meq/L (5-15); Blood Urea Nitrogen 11 mg/dL (7-18); Calcium 7.4 mg/dL (8.5-10.1); Carbon Dioxide 26.9 meq/L (21.0-32.0); Chloride 104 meq/L (98-107); Glomerular Filtration Rate Greater Than 89 mL/min (>89); Glucose,Random 215 mg/dL (74-106); Potassium 3.4 meq/L (3.5-5.1); Sodium 138 meq/L (136-145)
[2018-05-03 08:15] LABS: Calcium-Albumin Corrected 8.2 mg/dL (8.5-10.1); Total Protein 5.7 g/dL (6.4-8.2)
[2018-05-03] MEDS: Amiodarone 200 MG Tablet PO SCH (08:36)
[2018-05-03] MEDS: Polyethylene Glycol 3350 17 GM Packet PO SCH (08:36)
[2018-05-03] MEDS: Gabapentin 300 MG Capsule PO SCH ×3 (08:37→17:28)
[2018-05-03] MEDS: Potassium Phos/Sodium Phos 250 MG Tablet PO SCH ×4 (08:37→22:12)
[2018-05-03] MEDS: Sodium Chloride 1 GM Tablet PO SCH ×3 (08:37→17:28)
[2018-05-03] MEDS: Ferrous Sulfate 325 MG Tablet PO SCH ×3 (08:38→17:29)
[2018-05-03] MEDS: Ascorbic Acid 500 MG Tablet PO SCH ×2 (08:38→22:13)
[2018-05-03] MEDS: Docusate Sodium 100 MG Capsule PO SCH ×2 (08:39→22:13)
[2018-05-03] MEDS: Insulin NovoLOG Aspart Correctional Sugar Inj SQ SCH ×4 (08:39→22:56)
[2018-05-03] MEDS: Collagenase Oint 30 GM Tube TOPICAL SCH (08:40)
[2018-05-03] MEDS: Gentamicin 0.1% Cream 15 GM Cream TOPICAL SCH ×2 (08:46→22:14)
--- NOTE | 2018-05-03 10:22 | P.PNFP ---
Subjective Interval history: Patient states he still having leg pain. Goes from his hip into his toes. Denies any chest pain, shortness of breath, headache, dizziness. Patient slept well overnight. <Tamiko Cooper C - 05/03/18 10:22> Results - Labs Result diagrams: 05/03/18 06:41 05/03/18 06:41 <RuthOsmel Yola - 05/04/18 07:13> Abnormal lab results 05/03/18 05/03/18 05/03/18 Range/Units 06:41 06:41 07:32 RBC 2.81 L (4.50-5.90) mil/mm3 Hgb 8.4 L (13.0-17.0) gm/dL Hct 24.9 L (39.0-51.0) % RDW 20.2 H (11.6-17.2) % [place] % (Auto) 8.9 H (0.0-8.0) % Eos % (Auto) 9.7 H (0.0-4.0) % Baso % (Auto) 2.4 H (0.0-2.0) % Eos # (Auto) 0.9 H (0.0-0.4) th/mm3 Potassium 3.4 L (3.5-5.1) meq/L POC Glucose 270 H (68-110) mg/dl Random Glucose 215 H (74-106) mg/dL Calcium 7.4 L* (8.5-10.1) mg/dL Prot Corrected Calcium 8.2 L (8.5-10.1) mg/dL Total Protein 5.7 L (6.4-8.2) g/dL 05/03/18 05/03/18 05/03/18 Range/Units 12:30 17:54 22:54 RBC (4.50-5.90) mil/mm3 Hgb (13.0-17.0) gm/dL Hct (39.0-51.0) % RDW (11.6-17.2) % [place] % (Auto) (0.0-8.0) % Eos % (Auto) (0.0-4.0) % Baso % (Auto) (0.0-2.0) % Eos # (Auto) (0.0-0.4) th/mm3 Potassium (3.5-5.1) meq/L POC Glucose 166 H 120 H 120 H (68-110) mg/dl Random Glucose (74-106) mg/dL Calcium (8.5-10.1) mg/dL Prot Corrected Calcium (8.5-10.1) mg/dL Total Protein (6.4-8.2) g/dL Short CBC 05/03/18 Range/Units 06:41 WBC 9.2 (4.0-11.0) th/mm3 Hgb 8.4 L (13.0-17.0) gm/dL Hct 24.9 L (39.0-51.0) % Plt Count 384 (150-450) th/mm3 BMP 05/03/18 06:41 Sodium 138 Potassium 3.4 L Chloride 104 Carbon Dioxide 26.9 BUN 11 Creatinine 0.69 Calcium 7.4 L* <Osmel Pagan - 05/04/18 07:13> Abnormal lab results 05/02/18 05/02/18 05/02/18 Range/Units 12:13 12:57 17:33 RBC (4.50-5.90) mil/mm3 Hgb 9.6 L (13.0-17.0) gm/dL Hct 28.4 L (39.0-51.0) % RDW (11.6-17.2) % [place] % (Auto) (0.0-8.0) % Eos % (Auto) (0.0-4.0) % Baso % (Auto) (0.0-2.0) % Eos # (Auto) (0.0-0.4) th/mm3 Potassium (3.5-5.1) meq/L POC Glucose 181 H 168 H (68-110) mg/dl Random Glucose (74-106) mg/dL Calcium (8.5-10.1) mg/dL Prot Corrected Calcium (8.5-10.1) mg/dL Total Protein (6.4-8.2) g/dL 05/02/18 05/03/18 05/03/18 Range/Units 19:20 06:41 06:41 RBC 2.81 L (4.50-5.90) mil/mm3 Hgb 8.4 L (13.0-17.0) gm/dL Hct 24.9 L (39.0-51.0) % RDW 20.2 H (11.6-17.2) % [place] % (Auto) 8.9 H (0.0-8.0) % Eos % (Auto) 9.7 H (0.0-4.0) % Baso % (Auto) 2.4 H (0.0-2.0) % Eos # (Auto) 0.9 H (0.0-0.4) th/mm3 Potassium 3.4 L (3.5-5.1) meq/L POC Glucose 156 H (68-110) mg/dl Random Glucose 215 H (74-106) mg/dL Calcium 7.4 L* (8.5-10.1) mg/dL Prot Corrected Calcium 8.2 L (8.5-10.1) mg/dL Total Protein 5.7 L (6.4-8.2) g/dL 05/03/18 Range/Units 07:32 RBC (4.50-5.90) mil/mm3 Hgb (13.0-17.0) gm/dL Hct (39.0-51.0) % RDW (11.6-17.2) % [place] % (Auto) (0.0-8.0) % Eos % (Auto) (0.0-4.0) % Baso % (Auto) (0.0-2.0) % Eos # (Auto) (0.0-0.4) th/mm3 Potassium (3.5-5.1) meq/L POC Glucose 270 H (68-110) mg/dl Random Glucose (74-106) mg/dL Calcium (8.5-10.1) mg/dL Prot Corrected Calcium (8.5-10.1) mg/dL Total Protein (6.4-8.2) g/dL Short CBC 05/02/18 05/03/18 Range/Units 12:13 06:41 WBC 9.2 (4.0-11.0) th/mm3 Hgb 9.6 L 8.4 L (13.0-17.0) gm/dL Hct 28.4 L 24.9 L (39.0-51.0) % Plt Count 384 (150-450) th/mm3 BMP 05/03/18 06:41 Sodium 138 Potassium 3.4 L Chloride 104 Carbon Dioxide 26.9 BUN 11 Creatinine 0.69 Calcium 7.4 L* <Tamiko Cooper C - 05/03/18 10:22> Physical Exam Vital signs: Vital Signs 05/03/18 08:00 05/03/18 12:00 05/03/18 16:00 Temperature 97.5 F L 97.4 F L 97.6 F Pulse Rate 54 L 57 L 53 L Respiratory Rate 18 18 Blood Pressure 138/63 151/75 H 144/65 H Pulse Oximetry 98 100 100 05/03/18 20:00 05/04/18 00:00 05/04/18 04:00 Temperature 97.6 F 98.0 F 98.0 F Pulse Rate 57 L 60 57 L Respiratory Rate 18 Blood Pressure 120/56 L 135/63 159/68 H Pulse Oximetry 98 95 91 L Intake & Output 05/03/18 05/04/18 05/04/18 18:59 06:59 18:59 Intake Total 462.5 / 462.5 300 / 300 Output Total 1650 / 1650 1900 / 1900 Balance -1187.5 / -1187.5 -1600 / -1600 Weight 86.9 kg Intake: IV 462.5 / 462.5 Zerbaxa Inj 1,500 MG In NS Inj 200 / 200 100 ML @ 100 mls/hr IV.SIG Q8H ACE Rx#:[id number] Vancomycin Inj 1,250 MG In NS 262.5 / 262.5 Inj 250 ML @ 262.5 mls/hr IV. SIG Q24H ACE Rx#:[id number] Oral 300 / 300 Output: Urine 800 / 800 1900 / 1900 Urine Amount (Catheter) 850 / 850 Condom 850 / 850 Other: Date of Last Bowel Movement 05/03/18 05/03/18 # Incontinent Bowel Movements 1 <Osmel Pagan - 05/04/18 07:13> Vital Signs 05/02/18 12:00 05/02/18 16:00 05/02/18 20:00 Temperature 97.4 F L 98 F 98.4 F Pulse Rate 65 64 62 Respiratory Rate 18 18 19 Blood Pressure 153/77 H 136/72 145/66 H Pulse Oximetry 95 99 100 05/03/18 00:00 05/03/18 03:26 05/03/18 04:00 Temperature 98 F 98.9 F Pulse Rate 58 L 61 55 L Respiratory Rate 16 16 Blood Pressure 129/62 155/71 H Pulse Oximetry 96 95 05/03/18 08:00 Temperature 97.5 F L Pulse Rate 54 L Respiratory Rate 17 Blood Pressure 138/63 Pulse Oximetry 98 Intake & Output 05/02/18 05/03/18 05/03/18 18:59 06:59 18:59 Intake Total 842.5 / 842.5 200 / 200 100 / 100 Output Total 800 / 800 850 / 850 Balance 42.5 / 42.5 -650 / -650 100 / 100 Weight 86.4 kg Intake: IV 362.5 / 362.5 200 / 200 100 / 100 Zerbaxa Inj 1,500 MG In NS Inj 100 / 100 200 / 200 100 / 100 100 ML @ 100 mls/hr IV.SIG Q8H ACE Rx#:[id number] Vancomycin Inj 1,250 MG In NS 262.5 / 262.5 Inj 250 ML @ 262.5 mls/hr IV. SIG Q24H ACE Rx#:[id number] Oral 480 / 480 Output: Urine Amount (Catheter) 800 / 800 850 / 850 Condom 800 / 800 850 / 850 Other: # Incontinent Voids 1 Date of Last Bowel Movement 05/01/18 05/01/18 # Bowel Movements 1 # Incontinent Bowel Movements 2 <Tamiko Cooper - 05/03/18 10:22> Narrative: GENERAL: Pleasant elderly male thin, appears malnourished. Alert to person and place but not time. SKIN: Cool and dry. No generalized rash. Has some scattered ecchymoses in his UE. HEAD: Atraumatic. Normocephalic. No temporal wasting, or tenderness. EYES: Anisocoria and left eye, EOMI CARDIOVASCULAR: Regular rate and rhythm. No murmurs, rubs or gallops heard RESPIRATORY: Clear to auscultation. Breath sounds equal bilaterally. No rales , wheezing or rhonchi ABDOMEN: Soft, non-tender, nondistended. No guarding. No rebound. No organomegaly. EXTREMITIES: No edema. Atrophic muscular changes in both legs bilaterally. Right heel covered in bandage. Left foot bandage dry and clean. Patient also has wound on right thigh that is bandaged. Dressing in place,with some serious sanguinous drainage. Dressing removed and wound has some serious sanguinous oozing no erythema surrounding the incision. Patient able to move toes bilaterally and no decreased sensation. Weak pulse palpated on right popliteal artery. <Tamiko Cooper 05/03/18 10:22> - Urinary Catheter Management Condom Cath placed during this visit: no <AdolphazOsmel Khan 05/04/18 07:13> no <Tamiko Cooper 05/03/18 10:22> Reason for continuing: Not indwelling catheter <Tamiko Cooper 05/03/18 10: 22> Indwelling Urethral Catheter Cath placed during this visit: no <AdolphestelaOsmel ratliff 05/04/18 07:13> yes, but has since been removed by the nurse <Tamiko Cooper 05/03/18 10:22> Reason for continuing: Not indwelling catheter <KennethTamiko Dung Khan 05/03/18 10: 22> Insertion date: 04/11/18 <KennethTamiko Khan 05/03/18 10:22> Insertion time: 21:08 <Tamiko Cooper 05/03/18 10:22> Removal date: 04/12/18 <KennethTamiko Khan 05/03/18 10:22> Removal time: 11:35 <Tamiko Cooper 05/03/18 10:22> Straight Cath placed during this visit: no <AdolphazOsmel 05/04/18 07:13> yes <KennethTamiko Khan 05/03/18 10:22> Reason for continuing: Other continuation reason <Tamiko Cooper 05/03/18 10:22> Insertion date: 04/11/18 <Tamiko Cooper 05/03/18 10:22> Insertion time: 21:08 <KennethTamiko Khan 05/03/18 10:22> Assessment and Plan - Assessment (1) Anemia Code(s): D64.9 - Anemia, unspecified Status: Acute (2) Osteomyelitis of ankle Code(s): M86.9 - Osteomyelitis, unspecified Status: Acute (3) Infection associated with internal hip prosthesis Code(s): T84.59XA - Infection and inflammatory reaction due to other internal joint prosthesis, initial encounter; Z96.649 - Presence of unspecified artificial hip joint Status: Acute (4) Chronic wound of extremity Status: Chronic (5) MRSA (methicillin resistant staph aureus) culture positive Code(s): Z22.322 - Carrier or suspected carrier of Methicillin resistant Staphylococcus aureus Status: Acute (6) PAD (peripheral artery disease) Code(s): I73.9 - Peripheral vascular disease, unspecified Status: Chronic (7) Bandemia Code(s): D72.825 - Bandemia Status: Resolved (8) Hydronephrosis Code(s): N13.30 - Unspecified hydronephrosis Status: Acute (9) HTN (hypertension) Code(s): I10 - Essential (primary) hypertension Status: Acute (10) Diabetes Code(s): E11.9 - Type 2 diabetes mellitus without complications Status: Acute (11) Malnutrition Code(s): E46 - Unspecified protein-calorie malnutrition Status: Acute (12) Anisocoria Code(s): H57.02 - Anisocoria Status: Acute (13) Nutrition, metabolism, and development symptoms Code(s): R63.8 - Other symptoms and signs concerning food and fluid intake Status: Acute <Osmel Pagan - 05/04/18 07:13> (1) Anemia Code(s): D64.9 - Anemia, unspecified Status: Acute Plan: On admission on 04/11 patient found to have hemoglobin of 6.6 and transfused 2 units of packed RBC. Also had tarry stools and underwent endoscopy and colonoscopy which were benign except small ulcer in the rectum. Placed on PPI and iron. H and H trended -04/29 Hbg 6.5 down from 7.5 -transfused one unit of PRBC repeat H/H 04/30 6.1 -Order for additional unit of PRBC and H/H. Repeat H/H 6.6. Two additional units ordered based on critical care physician recommendations -Transferred to ICU; once patient's hemoglobin improved and asymptomatic transferred back to the floor. -CT abdomen: two non obstructive kidney stones and some constipation -Consulted ortho: Bleeding possibly from femoral canal. During procedure box was not used because of patient's response to previous hardware. Dr. Muñoz stated that hemoglobin should stabilize and that the bleeding could continue for up to 2 weeks after the procedure. H/H stable and improved 9.6/28.4. Today Hemoglobin at 8.4 -Continue to trend H/H (2) Osteomyelitis of ankle Code(s): M86.9 - Osteomyelitis, unspecified Status: Acute Plan: MRI showed evidence of osteomyelitis of right ankle which likely has been brewing for some time in this diabetic patient with PAD with chronic lower- extremity non-healing ulcers Culture positive for MRSA at different site (right thigh wound) Wound Cx of right ankle showed Pseudomonas as well as multidrug-resistant Proteus and group D enterococcus Blood cultures NGTD Afebrile Podiatry consulted, appreciate assistance; * plan for patient to have calcanectomy on 04/26 however due to patient's inability to recall presurgery discussion when seen by podiatry the morning of 04/26 Dr. Urena will no longer be performing calcanectomy procedure. * Recommends: betadine wet to dry daily and if foot/heel becomes acutely infected rec as patient is unable to care for himself or able to mentally process limb salvage procedure options. In addition, the likelihood of failure was already high due to the low vascularity to the right lower limb. * Podiatry has signed off. * Discussed option of below-knee amputation of right lower extremity Patient still not interested Vascular surgery consulted * s/p WOLF HUNTER of popliteal stenosis on 04/24 * Anterior tibial, posterior tibia and peritoneal artery occluded Lower extremity pulses appreciated Via Doppler. Right popliteal pulse appreciated on exam * ID consulted, appreciate recs * Continue vancomycin * Continue Zerbaxa * Wound care consulted, appreciate recs * See note from 04/25 * follow recommendations * Pain management with [place] scheduled, gabapentin, morphine for breakthrough pain (3) Infection associated with internal hip prosthesis Code(s): T84.59XA - Infection and inflammatory reaction due to other internal joint prosthesis, initial encounter; Z96.649 - Presence of unspecified artificial hip joint Status: Acute Plan: Wound care noted patient's right hip wound to be more purulent and fluctuant on 04/25 Right femur MRI was ordered and results showed: -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 The collection appears to communicate with the prosthetic component in the proximal femur. -. Edematous changes are noted along the vastus lateralis and iliotibial band. -Patient spiked fever on 04/28: BCX no growth to date Follow wound care recommendations for care Orthopedic consultation: 04/27 irrigation and debridement with hardware removal and placement of antibiotic beads Recommendation: "TTWB RLE and Dressing changes daily and as needed. Incisions will have drainage for likely several days to even couple of weeks as antibiotic beads were placed along with removal of hardware and debridement of the femur leaving an open femoral canal. This should slowly stop over several days to weeks. Dressing changes as needed.Antibiotics per ID for chronic osteomyelitis. Plan for patient to follow-up in my office in 2 weeks" (4) Chronic wound of extremity Status: Chronic Plan: Patient currently follows up with wound care as an outpatient Right hip wound, super observant dressing daily Skin tear lower left extremity, Santyl covered and dry dressing daily Right heel wound, apply gentamicin cream twice daily, see above plan for associated osteomyelitis Wound care consulted, appreciate recommendations * Cleanse wound to R Achilles heel with normal saline only and pat dry. Apply gentamicin mixed with Santyl 50/ 50 and apply to wound bed * Cover with ABD pad, and secure with rolled gauze and tape. Change dressing daily, until seen by podiatry. * Cleanse wound to R hip see updated note from 04/25 * Cleanse wound to L posterior lower leg with normal saline and pat dry. Apply optifoam gentle 4x4 dressing change dressing every 3 days or PRN if saturated or dislodged. (5) MRSA (methicillin resistant staph aureus) culture positive Code(s): Z22.322 - Carrier or suspected carrier of Methicillin resistant Staphylococcus aureus Status: Acute Plan: This patient suffers from chronic nonhealing wounds likely secondary to peripheral arterial disease and DM. Patient had wound from right thigh cultured which ultimately grew MRSA. -Monitor for fevers and signs of systemic illness -Antibiotic therapy as above (6) PAD (peripheral artery disease) Code(s): I73.9 - Peripheral vascular disease, unspecified Status: Chronic Plan: s/p recent right LE arterectomy. s/p vascular procedure as above on 04/24 (7) Bandemia Code(s): D72.825 - Bandemia Status: Resolved Plan: Resolved, likely due to osteomyelitis. See above plan. (8) Hydronephrosis Code(s): N13.30 - Unspecified hydronephrosis Status: Acute Plan: Abdominal pelvis CT demonstrates development of moderate left hydronephrosis and hydroureter without ureteral obstruction. Also demonstrates stool ball in the rectum large amount of stool throughout the colon. Patient had a bladder scan 04/11 that revealed of a residual volume of 231 mL. Patient currently voiding well. Patient has no CVA tenderness. Hammer in place UA on 04/26 : negative for infection - Continue to monitor I's and O's. (9) HTN (hypertension) Code(s): I10 - Essential (primary) hypertension Status: Acute Plan: Continue Cardizem and amiodarone (10) Diabetes Code(s): E11.9 - Type 2 diabetes mellitus without complications Status: Acute Plan: Held home glipizide, Januvia Accu-Cheks Low-dose sliding scale Hypoglycemia protocol in place (11) Malnutrition Code(s): E46 - Unspecified protein-calorie malnutrition Status: Acute Plan: This patient appears thin and possibly malnourished. Patient has significant muscle atrophy in arms and legs that are partially consistent with age and lack of activity. -Begin diet supplementation with Ensure (12) Anisocoria Code(s): H57.02 - Anisocoria Status: Acute Plan: Most likely chronic in view of no other alarming ophthalmologic signs/symptoms Can follow up with Ophthalmology outpatient (13) Nutrition, metabolism, and development symptoms Code(s): R63.8 - Other symptoms and signs concerning food and fluid intake Status: Acute Plan: Fluids: per PO Diet: Diabetic supplements with protein shake Electrolytes: monitor and replete as needed DVT prophylaxis: Contraindicated due to upper GI bleed Disposition: SNF not taking patient at this time due to cost of Zerbaxa <Tamiko Cooper - 05/03/18 10:20> - Attending Attestation This patient was seen and examined. The assessment and plan was discussed with the resident physician and I am in agreement with continued medical care as documented in this encounter. OSMEL PAGAN MD <Osmel Pagan - 05/04/18 07:13> <Tamiko Cooper - Last Filed: 05/03/18 10:20> (2) Osteomyelitis of ankle Qualifiers: Osteomyelitis type: other chronic Laterality: right Qualified Code(s): M86.671 - Other chronic osteomyelitis, right ankle and foot (8) Hydronephrosis Qualifiers: Hydronephrosis type: unspecified Qualified Code(s): N13.30 - Unspecified hydronephrosis <Osmel Pagan R - Last Filed: 05/04/18 07:13> (2) Osteomyelitis of ankle Qualifiers: Osteomyelitis type: other chronic Laterality: right Qualified Code(s): M86.671 - Other chronic osteomyelitis, right ankle and foot (8) Hydronephrosis Qualifiers: Hydronephrosis type: unspecified Qualified Code(s): N13.30 - Unspecified hydronephrosis <Tamiko Cooper - Last Filed: 05/03/18 10:20> (2) Osteomyelitis of ankle Qualifiers: Osteomyelitis type: other chronic Laterality: right Qualified Code(s): M86.671 - Other chronic osteomyelitis, right ankle and foot (8) Hydronephrosis Qualifiers: Hydronephrosis type: unspecified Qualified Code(s): N13.30 - Unspecified hydronephrosis <Osmel Pagan - Last Filed: 05/04/18 07:13> (2) Osteomyelitis of ankle Qualifiers: Osteomyelitis type: other chronic Laterality: right Qualified Code(s): M86.671 - Other chronic osteomyelitis, right ankle and foot (8) Hydronephrosis Qualifiers: Hydronephrosis type: unspecified Qualified Code(s): N13.30 - Unspecified hydronephrosis
[2018-05-03] MEDS ORDERED: Pharmacy Ordered Lab Info OTHER ONE (14:45)
[2018-05-03] MEDS: Vancomycin Inj 1,250 MG in Sodium Chlor 0.9% Inj 250 ML IV.SIG SCH (15:22)
[2018-05-04] MEDS: CEFTOLOZANE IV.SIG SCH ×3 (03:16→16:53)
[2018-05-04] MEDS: SODIUM CHLOR 0.9% IV.SIG SCH ×3 (03:16→16:53)
[2018-05-04] MEDS: TAZOBACTAM IV.SIG SCH ×3 (03:16→16:53)
[2018-05-04] MEDS: Levothyroxine 125 MCG Tablet PO SCH (05:29)
[2018-05-04] MEDS: Ferrous Sulfate 325 MG Tablet PO SCH ×3 (08:42→17:00)
[2018-05-04] MEDS: Amiodarone 200 MG Tablet PO SCH (08:43)
[2018-05-04] MEDS: Docusate Sodium 100 MG Capsule PO SCH ×2 (08:43→20:30)
[2018-05-04] MEDS: Gabapentin 300 MG Capsule PO SCH ×3 (08:44→17:00)
[2018-05-04] MEDS: Sodium Chloride 1 GM Tablet PO SCH ×3 (08:44→17:00)
[2018-05-04] MEDS: Potassium Phos/Sodium Phos 250 MG Tablet PO SCH ×4 (08:44→20:29)
[2018-05-04] MEDS: Ascorbic Acid 500 MG Tablet PO SCH ×2 (08:45→20:29)
[2018-05-04] MEDS: Polyethylene Glycol 3350 17 GM Packet PO SCH (08:45)
[2018-05-04] MEDS: Gentamicin 0.1% Cream 15 GM Cream TOPICAL SCH ×2 (08:46→22:13)
[2018-05-04] MEDS: Insulin NovoLOG Aspart Correctional Sugar Inj SQ SCH ×4 (08:46→20:31)
[2018-05-04] MEDS: Collagenase Oint 30 GM Tube TOPICAL SCH (08:46)
[2018-05-04 09:38] LABS: Baso # (Auto) 0.3 th/mm3 (0.0-0.2); Baso % (Auto) 2.9 % (0.0-2.0); Eos # (Auto) 0.8 th/mm3 (0.0-0.4); Eos % (Auto) 7.2 % (0.0-4.0); Hematocrit 25.8 % (39.0-51.0); Hemoglobin 8.5 gm/dL (13.0-17.0); Lymph # (Auto) 1.2 th/mm3 (1.0-4.8); Lymph % (Auto) 11.2 % (9.0-44.0); Mean Corpuscular HGB Conc 32.8 % (32.0-36.0); Mean Corpuscular Hemoglobin 29.1 pg (27.0-34.0); Mean Corpuscular Volume 88.5 fL (80.0-100.0); Mean Platelet Volume 7.1 fL (7.0-11.0); Mono # (Auto) 0.9 th/mm3 (0.0-0.9); Mono % (Auto) 8.5 % (0.0-8.0); Neut # (Auto) 7.6 th/mm3 (1.8-7.7); Neut % (Auto) 70.2 % (16.0-70.0); Platelet Count 410 th/mm3 (150-450); Red Blood Count 2.91 mil/mm3 (4.50-5.90); Red Cell Distribution Width 19.8 % (11.6-17.2); White Blood Count 10.8 th/mm3 (4.0-11.0)
[2018-05-04 10:01] LABS: Anion Gap 10 meq/L (5-15); Blood Urea Nitrogen 9 mg/dL (7-18); Calcium 7.6 mg/dL (8.5-10.1); Carbon Dioxide 26.4 meq/L (21.0-32.0); Chloride 103 meq/L (98-107); Glomerular Filtration Rate Greater Than 89 mL/min (>89); Glucose,Random 129 mg/dL (74-106); Potassium 3.2 meq/L (3.5-5.1); Sodium 139 meq/L (136-145)
[2018-05-04 10:35] LABS: Eosinophils 11 % (0-4); Lymphocytes 8 % (9-44); Monocytes 5 % (0-8); Myelocytes 1 % (0-0); Platelet Estimate Normal (Normal); Platelet Morphology Normal (Normal)
--- NOTE | 2018-05-04 11:56 | P.PNFP ---
Subjective Interval history: Patient seen and examined at bedside. No acute events overnight. Patient reports that he feels well. Still complaining of pain on right leg worse with movement otherwise pain is tolerable. Denies any fever, chills, chest pain, shortness of breath, palpitations, dizziness, headaches, nausea, vomiting, abdominal pain. Patient will like ID to recommend another antibiotic for his right foot infection in order for him to be able to [facility]. <Sakshi Garza D - 05/04/18 13:11> Results - Labs Result diagrams: 05/06/18 06:56 05/05/18 08:00 <Osmel Pagan R - 05/06/18 11:25> Abnormal lab results 05/05/18 05/05/18 05/05/18 Range/Units 11:48 16:59 19:40 WBC (4.0-11.0) th/mm3 RBC (4.50-5.90) mil/mm3 Hgb (13.0-17.0) gm/dL Hct (39.0-51.0) % RDW (11.6-17.2) % Kimball % (Auto) (0.0-8.0) % Eos % (Auto) (0.0-4.0) % Baso % (Auto) (0.0-2.0) % Kimball # (Auto) (0.0-0.9) th/mm3 Eos # (Auto) (0.0-0.4) th/mm3 Baso # (Auto) (0.0-0.2) th/mm3 Band Neuts % (Manual) (0-6) % Eosinophils % (Manual) (0-4) % Myelocytes % (Man) (0-0) % Abs Neuts (Manual) (1.8-7.7) th/mm3 Toxic Granulation (None) Platelet Estimate (Normal) Ovalocytes (None) Acanthocytes (Spur) (None) POC Glucose 154 H 179 H 208 H (68-110) mg/dl 05/06/18 05/06/18 Range/Units 06:56 07:50 WBC 11.2 H (4.0-11.0) th/mm3 RBC 2.97 L (4.50-5.90) mil/mm3 Hgb 8.8 L (13.0-17.0) gm/dL Hct 26.2 L (39.0-51.0) % RDW 19.7 H (11.6-17.2) % Kimball % (Auto) 10.7 H (0.0-8.0) % Eos % (Auto) 8.6 H (0.0-4.0) % Baso % (Auto) 3.6 H (0.0-2.0) % Kimball # (Auto) 1.2 H (0.0-0.9) th/mm3 Eos # (Auto) 1.0 H (0.0-0.4) th/mm3 Baso # (Auto) 0.4 H (0.0-0.2) th/mm3 Band Neuts % (Manual) 8 H (0-6) % Eosinophils % (Manual) 5 H (0-4) % Myelocytes % (Man) 1 H (0-0) % Abs Neuts (Manual) 8.4 H (1.8-7.7) th/mm3 Toxic Granulation 1+ H (None) Platelet Estimate High H (Normal) Ovalocytes 1+ H (None) Acanthocytes (Spur) Occ H (None) POC Glucose 131 H (68-110) mg/dl Short CBC 05/06/18 Range/Units 06:56 WBC 11.2 H (4.0-11.0) th/mm3 Hgb 8.8 L (13.0-17.0) gm/dL Hct 26.2 L (39.0-51.0) % Plt Count 410 (150-450) th/mm3 <Osmel Pagan - 05/06/18 11:25> Abnormal lab results 05/03/18 05/03/18 05/03/18 Range/Units 12:30 17:54 22:54 RBC (4.50-5.90) mil/mm3 Hgb (13.0-17.0) gm/dL Hct (39.0-51.0) % RDW (11.6-17.2) % Neut % (Auto) (16.0-70.0) % Kimball % (Auto) (0.0-8.0) % Eos % (Auto) (0.0-4.0) % Baso % (Auto) (0.0-2.0) % Eos # (Auto) (0.0-0.4) th/mm3 Baso # (Auto) (0.0-0.2) th/mm3 Band Neuts % (Manual) (0-6) % Lymphocytes % (Manual) (9-44) % Eosinophils % (Manual) (0-4) % Myelocytes % (Man) (0-0) % Abs Neuts (Manual) (1.8-7.7) th/mm3 Potassium (3.5-5.1) meq/L Creatinine (0.60-1.30) mg/dL POC Glucose 166 H 120 H 120 H (68-110) mg/dl Random Glucose (74-106) mg/dL Calcium (8.5-10.1) mg/dL 05/04/18 05/04/18 05/04/18 Range/Units 08:29 08:51 08:51 RBC 2.91 L (4.50-5.90) mil/mm3 Hgb 8.5 L (13.0-17.0) gm/dL Hct 25.8 L (39.0-51.0) % RDW 19.8 H (11.6-17.2) % Neut % (Auto) 70.2 H (16.0-70.0) % Kimball % (Auto) 8.5 H (0.0-8.0) % Eos % (Auto) 7.2 H (0.0-4.0) % Baso % (Auto) 2.9 H (0.0-2.0) % Eos # (Auto) 0.8 H (0.0-0.4) th/mm3 Baso # (Auto) 0.3 H (0.0-0.2) th/mm3 Band Neuts % (Manual) 12 H (0-6) % Lymphocytes % (Manual) 8 L (9-44) % Eosinophils % (Manual) 11 H (0-4) % Myelocytes % (Man) 1 H (0-0) % Abs Neuts (Manual) 8.0 H (1.8-7.7) th/mm3 Potassium 3.2 L (3.5-5.1) meq/L Creatinine 0.59 L (0.60-1.30) mg/dL POC Glucose 152 H (68-110) mg/dl Random Glucose 129 H (74-106) mg/dL Calcium 7.6 L (8.5-10.1) mg/dL Short CBC 05/04/18 Range/Units 08:51 WBC 10.8 (4.0-11.0) th/mm3 Hgb 8.5 L (13.0-17.0) gm/dL Hct 25.8 L (39.0-51.0) % Plt Count 410 (150-450) th/mm3 BMP 05/04/18 08:51 Sodium 139 Potassium 3.2 L Chloride 103 Carbon Dioxide 26.4 BUN 9 Creatinine 0.59 L Calcium 7.6 L <Sakshi Garza D - 05/04/18 11:56> Physical Exam Vital signs: Vital Signs 05/05/18 12:00 05/05/18 16:00 05/05/18 20:00 Temperature 97.8 F 98.5 F 97.8 F Pulse Rate 59 L 62 64 Respiratory Rate 20 18 18 Blood Pressure 136/65 128/60 134/71 Pulse Oximetry 95 96 97 05/06/18 00:00 05/06/18 04:00 05/06/18 08:00 Temperature 98.4 F 98 F 97.8 F Pulse Rate 59 L 57 L 58 L Respiratory Rate 17 18 18 Blood Pressure 123/55 L 118/61 147/85 H Pulse Oximetry 97 97 94 L Intake & Output 05/05/18 05/06/18 05/06/18 18:59 06:59 18:59 Intake Total 962.5 / 962.5 410 / 410 Output Total 1000 / 1000 1000 / 1000 Balance -37.5 / -37.5 -590 / -590 Weight 83.8 kg Intake: IV 362.5 / 362.5 200 / 200 Zerbaxa Inj 1,500 MG In NS Inj 100 / 100 200 / 200 100 ML @ 100 mls/hr IV.SIG Q8H ACE Rx#:[id number] Vancomycin Inj 1,250 MG In NS 262.5 / 262.5 Inj 250 ML @ 262.5 mls/hr IV. SIG Q24H ACE Rx#:[id number] Oral 600 / 600 210 / 210 Output: Urine 1000 / 1000 1000 / 1000 Other: Date of Last Bowel Movement 05/04/18 05/04/18 05/04/18 # Bowel Movements 0 <Osmel Pagan R - 05/06/18 11:25> Vital Signs 05/03/18 12:00 05/03/18 16:00 05/03/18 20:00 Temperature 97.4 F L 97.6 F 97.6 F Pulse Rate 57 L 53 L 57 L Respiratory Rate 18 18 17 Blood Pressure 151/75 H 144/65 H 120/56 L Pulse Oximetry 100 100 98 05/04/18 00:00 05/04/18 04:00 05/04/18 08:00 Temperature 98.0 F 98.0 F 97.8 F Pulse Rate 60 57 L 63 Respiratory Rate 16 18 18 Blood Pressure 135/63 159/68 H 161/73 H Pulse Oximetry 95 91 L 94 L 05/04/18 08:20 Temperature Pulse Rate Respiratory Rate 18 Blood Pressure Pulse Oximetry Intake & Output 05/03/18 05/04/18 05/04/18 18:59 06:59 18:59 Intake Total 462.5 / 462.5 400 / 400 100 / 100 Output Total 1650 / 1650 1900 / 1900 Balance -1187.5 / -1187.5 -1500 / -1500 100 / 100 Weight 86.9 kg Intake: IV 462.5 / 462.5 100 / 100 100 / 100 Zerbaxa Inj 1,500 MG In NS Inj 200 / 200 100 / 100 100 / 100 100 ML @ 100 mls/hr IV.SIG Q8H [facility] Rx#:[id number] Vancomycin Inj 1,250 MG In NS 262.5 / 262.5 Inj 250 ML @ 262.5 mls/hr IV. SIG Q24H ACE Rx#:[id number] Oral 300 / 300 Output: Urine 800 / 800 1900 / 1900 Urine Amount (Catheter) 850 / 850 Condom 850 / 850 Other: Date of Last Bowel Movement 05/03/18 05/03/18 05/03/18 # Incontinent Bowel Movements 1 <Sakshi Garza D - 05/04/18 11:56> Narrative: GENERAL: Pleasant elderly male thin, appears malnourished. Alert to person and place but not time. SKIN: Cool and dry. No generalized rash. Has some scattered ecchymoses in his UE. HEAD: Atraumatic. Normocephalic. No temporal wasting, or tenderness. EYES: Anisocoria and left eye, EOMI CARDIOVASCULAR: Regular rate and rhythm. No murmurs, rubs or gallops heard RESPIRATORY: Clear to auscultation. Breath sounds equal bilaterally. No rales , wheezing or rhonchi ABDOMEN: Soft, non-tender, nondistended. No guarding. No rebound. No organomegaly. EXTREMITIES: No edema. Atrophic muscular changes in both legs bilaterally. Right heel covered in bandage. Left foot bandage dry and clean. Patient also has wound on right thigh that is bandaged. Dressing in place,with some serious sanguinous drainage. Dressing removed and wound has some serious sanguinous oozing no erythema surrounding the incision. Patient able to move toes bilaterally and no decreased sensation. Weak pulse palpated on right popliteal artery. <Sakshi Garza D - 05/04/18 13:11> - Urinary Catheter Management Condom Cath placed during this visit: no <Osmel Pagan R - 05/06/18 11:25> no <Sakshi Garza D - 05/04/18 13:11> Reason for continuing: Not indwelling catheter <CalSakshi wild D - 05/04/18 11: 56> Indwelling Urethral Catheter Cath placed during this visit: no <Osmel Pagan R - 05/06/18 11:25> yes, but has since been removed by the nurse <Sakshi Garza D - 05/04/18 13:11> Reason for continuing: Not indwelling catheter <Sakshi Garza D - 05/04/18 11: 56> Insertion date: 04/11/18 <Wilner Garzaly D - 05/04/18 11:56> Insertion time: 21:08 <CalzaWilner myrickly D - 05/04/18 11:56> Removal date: 04/12/18 <RashadzaWilner myrickly D - 05/04/18 11:56> Removal time: 11:35 <CalWilner wildly D - 05/04/18 11:56> Straight Cath placed during this visit: no <Latosha Paganil R - 05/06/18 11:25> yes <Sakshi Garza D - 05/04/18 13:11> Reason for continuing: Other continuation reason <Sakshi Garza - 05/04/18 11:56> Insertion date: 04/11/18 <Sakshi Garza D - 05/04/18 11:56> Insertion time: 21:08 <Sakshi Garza D - 05/04/18 11:56> Assessment and Plan - Assessment (1) Anemia Code(s): D64.9 - Anemia, unspecified Status: Acute (2) Osteomyelitis of ankle Code(s): M86.9 - Osteomyelitis, unspecified Status: Acute (3) Infection associated with internal hip prosthesis Code(s): T84.59XA - Infection and inflammatory reaction due to other internal joint prosthesis, initial encounter; Z96.649 - Presence of unspecified artificial hip joint Status: Acute (4) Chronic wound of extremity Status: Chronic (5) MRSA (methicillin resistant staph aureus) culture positive Code(s): Z22.322 - Carrier or suspected carrier of Methicillin resistant Staphylococcus aureus Status: Acute (6) PAD (peripheral artery disease) Code(s): I73.9 - Peripheral vascular disease, unspecified Status: Chronic (7) Bandemia Code(s): D72.825 - Bandemia Status: Resolved (8) Hydronephrosis Code(s): N13.30 - Unspecified hydronephrosis Status: Acute (9) HTN (hypertension) Code(s): I10 - Essential (primary) hypertension Status: Acute (10) Diabetes Code(s): E11.9 - Type 2 diabetes mellitus without complications Status: Acute (11) Malnutrition Code(s): E46 - Unspecified protein-calorie malnutrition Status: Acute (12) Anisocoria Code(s): H57.02 - Anisocoria Status: Acute (13) Nutrition, metabolism, and development symptoms Code(s): R63.8 - Other symptoms and signs concerning food and fluid intake Status: Acute <Osmel Pagan R - 05/06/18 11:25> (1) Anemia Code(s): D64.9 - Anemia, unspecified Status: Acute Plan: On admission on 04/11 patient found to have hemoglobin of 6.6 and transfused 2 units of packed RBC. Also had tarry stools and underwent endoscopy and colonoscopy which were benign except small ulcer in the rectum. Placed on PPI and iron. H and H trended -04/29 Hbg 6.5 down from 7.5 -transfused one unit of PRBC repeat H/H 04/30 6.1 -Order for additional unit of PRBC and H/H. Repeat H/H 6.6. Two additional units ordered based on critical care physician recommendations -Transferred to ICU; once patient's hemoglobin improved and asymptomatic transferred back to the floor. -CT abdomen: two non obstructive kidney stones and some constipation -Consulted ortho: Bleeding possibly from femoral canal. During procedure box was not used because of patient's response to previous hardware. Dr. Muñoz stated that hemoglobin should stabilize and that the bleeding could continue for up to 2 weeks after the procedure. H/H stable and improved 9.6/28.4. Today H/H at 8.6/25.8 -Continue to trend H/H (2) Osteomyelitis of ankle Code(s): M86.9 - Osteomyelitis, unspecified Status: Acute Plan: MRI showed evidence of osteomyelitis of right ankle which likely has been brewing for some time in this diabetic patient with PAD with chronic lower- extremity non-healing ulcers Culture positive for MRSA at different site (right thigh wound) Wound Cx of right ankle showed Pseudomonas as well as multidrug-resistant Proteus and group D enterococcus Blood cultures NGTD Afebrile Podiatry consulted, appreciate assistance; * plan for patient to have calcanectomy on 04/26 however due to patient's inability to recall presurgery discussion when seen by podiatry the morning of 04/26 Dr. Urena will no longer be performing calcanectomy procedure. * Recommends: betadine wet to dry daily and if foot/heel becomes acutely infected rec as patient is unable to care for himself or able to mentally process limb salvage procedure options. In addition, the likelihood of failure was already high due to the low vascularity to the right lower limb. * Podiatry has signed off. * Discussed option of below-knee amputation of right lower extremity and Patient still not interested Vascular surgery consulted * s/p [employer] of popliteal stenosis on 04/24 * Anterior tibial, posterior tibia and peritoneal artery occluded Lower extremity pulses appreciated Via Doppler. Right popliteal pulse appreciated on exam * ID consulted, appreciate recs * Continue vancomycin--until Jun 07, 6 weeks after hardware removal for the R hip * Continue Zerbaxa--for the heel ulcer and osteo * Patient would like another antibiotic rec than zabraxa in order for him to be able to be [facility] * Wound care consulted, appreciate recs * See note from 04/25 * follow recommendations * Pain management with Benezett scheduled, gabapentin, morphine for breakthrough pain (3) Infection associated with internal hip prosthesis Code(s): T84.59XA - Infection and inflammatory reaction due to other internal joint prosthesis, initial encounter; Z96.649 - Presence of unspecified artificial hip joint Status: Acute Plan: Wound care noted patient's right hip wound to be more purulent and fluctuant on 04/25 Right femur MRI was ordered and results showed: -Osseous cutaneous fistulous tract extending from the greater trochanter to the skin surface with small subcutaneous fluid collection identified. The collection appears to communicate with the prosthetic component in the proximal femur. -. Edematous changes are noted along the vastus lateralis and iliotibial band. -Patient spiked fever on 04/28: BCX no growth to date Follow wound care recommendations for care Orthopedic consultation: 04/27 irrigation and debridement with hardware removal and placement of antibiotic beads Recommendation: "TTWB RLE and Dressing changes daily and as needed. Incisions will have drainage for likely several days to even couple of weeks as antibiotic beads were placed along with removal of hardware and debridement of the femur leaving an open femoral canal. This should slowly stop over several days to weeks. Dressing changes as needed.Antibiotics per ID for chronic osteomyelitis. Plan for patient to follow-up in my office in 2 weeks" (4) Chronic wound of extremity Status: Chronic Plan: Patient currently follows up with wound care as an outpatient Right hip wound, super observant dressing daily Skin tear lower left extremity, Santyl covered and dry dressing daily Right heel wound, apply gentamicin cream twice daily, see above plan for associated osteomyelitis Wound care consulted, appreciate recommendations * Cleanse wound to R Achilles heel with normal saline only and pat dry. Apply gentamicin mixed with Santyl 50/ 50 and apply to wound bed * Cover with ABD pad, and secure with rolled gauze and tape. Change dressing daily, until seen by podiatry. * Cleanse wound to R hip see updated note from 04/25 and follow ortho rec for dressing * Cleanse wound to L posterior lower leg with normal saline and pat dry. Apply optifoam gentle 4x4 dressing change dressing every 3 days or PRN if saturated or dislodged. (5) MRSA (methicillin resistant staph aureus) culture positive Code(s): Z22.322 - Carrier or suspected carrier of Methicillin resistant Staphylococcus aureus Status: Acute Plan: This patient suffers from chronic nonhealing wounds likely secondary to peripheral arterial disease and DM. Patient had wound from right thigh cultured which ultimately grew MRSA. -Monitor for fevers and signs of systemic illness -Antibiotic therapy as above (6) PAD (peripheral artery disease) Code(s): I73.9 - Peripheral vascular disease, unspecified Status: Chronic Plan: s/p recent right LE arterectomy. s/p vascular procedure as above on 04/24 (7) Bandemia Code(s): D72.825 - Bandemia Status: Resolved Plan: Resolved, likely due to osteomyelitis. See above plan. (8) Hydronephrosis Code(s): N13.30 - Unspecified hydronephrosis Status: Acute Plan: Abdominal pelvis CT demonstrates development of moderate left hydronephrosis and hydroureter without ureteral obstruction. Also demonstrates stool ball in the rectum large amount of stool throughout the colon. Patient had a bladder scan 04/11 that revealed of a residual volume of 231 mL. Patient currently voiding well. Patient has no CVA tenderness. Hammer in place UA on 04/26 : negative for infection - Continue to monitor I's and O's. (9) HTN (hypertension) Code(s): I10 - Essential (primary) hypertension Status: Acute Plan: Continue Cardizem and amiodarone (10) Diabetes Code(s): E11.9 - Type 2 diabetes mellitus without complications Status: Acute Plan: Held home glipizide, Januvia Accu-Cheks Low-dose sliding scale Hypoglycemia protocol in place (11) Malnutrition Code(s): E46 - Unspecified protein-calorie malnutrition Status: Acute Plan: This patient appears thin and possibly malnourished. Patient has significant muscle atrophy in arms and legs that are partially consistent with age and lack of activity. -Begin diet supplementation with Ensure (12) Anisocoria Code(s): H57.02 - Anisocoria Status: Acute Plan: Most likely chronic in view of no other alarming ophthalmologic signs/symptoms Can follow up with Ophthalmology outpatient (13) Nutrition, metabolism, and development symptoms Code(s): R63.8 - Other symptoms and signs concerning food and fluid intake Status: Acute Plan: Fluids: per PO Diet: Diabetic supplements with protein shake Electrolytes: monitor and replete as needed DVT prophylaxis: Contraindicated due to upper GI bleed Disposition: SNF not taking patient at this time due to cost of Zerbaxa. <Sakshi Garza - 05/04/18 13:00> - Attending Attestation This patient was seen and examined. The assessment and plan was discussed with the resident physician and I am in agreement with continued medical care as documented in this encounter. OSMEL PAGAN MD <Osmel Pagan - 05/06/18 11:25> <Sakshi Garza D - Last Filed: 05/04/18 13:00> (2) Osteomyelitis of ankle Qualifiers: Osteomyelitis type: other chronic Laterality: right Qualified Code(s): M86.671 - Other chronic osteomyelitis, right ankle and foot (8) Hydronephrosis Qualifiers: Hydronephrosis type: unspecified Qualified Code(s): N13.30 - Unspecified hydronephrosis <Osmel Pagan - Last Filed: 05/06/18 11:25> (2) Osteomyelitis of ankle Qualifiers: Osteomyelitis type: other chronic Laterality: right Qualified Code(s): M86.671 - Other chronic osteomyelitis, right ankle and foot (8) Hydronephrosis Qualifiers: Hydronephrosis type: unspecified Qualified Code(s): N13.30 - Unspecified hydronephrosis <Sakshi Garza D - Last Filed: 05/04/18 13:00> (2) Osteomyelitis of ankle Qualifiers: Osteomyelitis type: other chronic Laterality: right Qualified Code(s): M86.671 - Other chronic osteomyelitis, right ankle and foot (8) Hydronephrosis Qualifiers: Hydronephrosis type: unspecified Qualified Code(s): N13.30 - Unspecified hydronephrosis <Osmel Pagan R - Last Filed: 05/06/18 11:25> (2) Osteomyelitis of ankle Qualifiers: Osteomyelitis type: other chronic Laterality: right Qualified Code(s): M86.671 - Other chronic osteomyelitis, right ankle and foot (8) Hydronephrosis Qualifiers: Hydronephrosis type: unspecified Qualified Code(s): N13.30 - Unspecified hydronephrosis
[2018-05-04] MEDS: Vancomycin Inj 1,250 MG in Sodium Chlor 0.9% Inj 250 ML IV.SIG SCH (14:26)
[2018-05-05] MEDS: SODIUM CHLOR 0.9% IV.SIG SCH ×3 (01:42→18:08)
[2018-05-05] MEDS: CEFTOLOZANE IV.SIG SCH ×3 (01:42→18:08)
[2018-05-05] MEDS: TAZOBACTAM IV.SIG SCH ×3 (01:42→18:08)
[2018-05-05] MEDS: Levothyroxine 125 MCG Tablet PO SCH (06:03)
[2018-05-05] MEDS: Ascorbic Acid 500 MG Tablet PO SCH ×2 (08:59→20:37)
[2018-05-05] MEDS: Amiodarone 200 MG Tablet PO SCH (08:59)
[2018-05-05] MEDS: Ferrous Sulfate 325 MG Tablet PO SCH ×3 (08:59→18:09)
[2018-05-05] MEDS: Gentamicin 0.1% Cream 15 GM Cream TOPICAL SCH ×2 (09:00→20:37)
[2018-05-05] MEDS: Docusate Sodium 100 MG Capsule PO SCH ×2 (09:00→20:37)
[2018-05-05] MEDS: Collagenase Oint 30 GM Tube TOPICAL SCH (09:04)
[2018-05-05] MEDS: Polyethylene Glycol 3350 17 GM Packet PO SCH (09:10)
[2018-05-05] MEDS: Gabapentin 300 MG Capsule PO SCH ×3 (09:11→18:09)
[2018-05-05] MEDS: Potassium Phos/Sodium Phos 250 MG Tablet PO SCH ×4 (09:11→20:37)
[2018-05-05] MEDS: Sodium Chloride 1 GM Tablet PO SCH ×3 (09:11→18:09)
[2018-05-05 09:15] LABS: Baso # (Auto) 0.3 th/mm3 (0.0-0.2); Baso % (Auto) 2.7 % (0.0-2.0); Eos % (Auto) 8.3 % (0.0-4.0); Hematocrit 26.1 % (39.0-51.0); Hemoglobin 8.8 gm/dL (13.0-17.0); Lymph # (Auto) 1.6 th/mm3 (1.0-4.8); Lymph % (Auto) 13.7 % (9.0-44.0); Mean Corpuscular HGB Conc 33.7 % (32.0-36.0); Mean Corpuscular Volume 89.1 fL (80.0-100.0); Mono # (Auto) 1.2 th/mm3 (0.0-0.9); Mono % (Auto) 10.1 % (0.0-8.0); Neut # (Auto) 7.5 th/mm3 (1.8-7.7); Neut % (Auto) 65.2 % (16.0-70.0); Platelet Count 431 th/mm3 (150-450); Red Blood Count 2.92 mil/mm3 (4.50-5.90); Red Cell Distribution Width 19.6 % (11.6-17.2); White Blood Count 11.6 th/mm3 (4.0-11.0)
[2018-05-05 09:29] LABS: Anion Gap 8 meq/L (5-15); Blood Urea Nitrogen 10 mg/dL (7-18); Calcium 7.7 mg/dL (8.5-10.1); Carbon Dioxide 25.5 meq/L (21.0-32.0); Chloride 104 meq/L (98-107); Glomerular Filtration Rate Greater Than 89 mL/min (>89); Glucose,Random 127 mg/dL (74-106); Potassium 3.3 meq/L (3.5-5.1); Sodium 137 meq/L (136-145)
[2018-05-05] MEDS: Insulin NovoLOG Aspart Correctional Sugar Inj SQ SCH ×4 (10:04→20:37)
[2018-05-05 10:08] LABS: Eosinophils 12 % (0-4); Lymphocytes 7 % (9-44); Monocytes 8 % (0-8); Ovalocytes 1+
[2018-05-05 10:09] LABS: Platelet Estimate Normal (Normal); Platelet Morphology Normal (Normal); Toxic Granulation 2+
--- NOTE | 2018-05-05 12:25 | P.PNFP ---
Subjective Interval history: Patient seen and examined this morning. No acute events overnight. Denies any fever, chills, chest pain, shortness of breath, palpitations, dizziness, headaches, nausea, vomiting, abdominal pain. Patient was eating well and having good bowel movements. <Sakshi Garza D - 05/05/18 16:49> Results - Labs Result diagrams: 05/06/18 06:56 05/05/18 08:00 <Osmel Pagan R - 05/06/18 12:35> Abnormal lab results 05/05/18 05/05/18 05/06/18 Range/Units 16:59 19:40 06:56 WBC 11.2 H (4.0-11.0) th/mm3 RBC 2.97 L (4.50-5.90) mil/mm3 Hgb 8.8 L (13.0-17.0) gm/dL Hct 26.2 L (39.0-51.0) % RDW 19.7 H (11.6-17.2) % [place] % (Auto) 10.7 H (0.0-8.0) % Eos % (Auto) 8.6 H (0.0-4.0) % Baso % (Auto) 3.6 H (0.0-2.0) % [place] # (Auto) 1.2 H (0.0-0.9) th/mm3 Eos # (Auto) 1.0 H (0.0-0.4) th/mm3 Baso # (Auto) 0.4 H (0.0-0.2) th/mm3 Band Neuts % (Manual) 8 H (0-6) % Eosinophils % (Manual) 5 H (0-4) % Myelocytes % (Man) 1 H (0-0) % Abs Neuts (Manual) 8.4 H (1.8-7.7) th/mm3 Toxic Granulation 1+ H (None) Platelet Estimate High H (Normal) Ovalocytes 1+ H (None) Acanthocytes (Spur) Occ H (None) POC Glucose 179 H 208 H (68-110) mg/dl 05/06/18 05/06/18 Range/Units 07:50 12:11 WBC (4.0-11.0) th/mm3 RBC (4.50-5.90) mil/mm3 Hgb (13.0-17.0) gm/dL Hct (39.0-51.0) % RDW (11.6-17.2) % [place] % (Auto) (0.0-8.0) % Eos % (Auto) (0.0-4.0) % Baso % (Auto) (0.0-2.0) % [place] # (Auto) (0.0-0.9) th/mm3 Eos # (Auto) (0.0-0.4) th/mm3 Baso # (Auto) (0.0-0.2) th/mm3 Band Neuts % (Manual) (0-6) % Eosinophils % (Manual) (0-4) % Myelocytes % (Man) (0-0) % Abs Neuts (Manual) (1.8-7.7) th/mm3 Toxic Granulation (None) Platelet Estimate (Normal) Ovalocytes (None) Acanthocytes (Spur) (None) POC Glucose 131 H 151 H (68-110) mg/dl Short CBC 05/06/18 Range/Units 06:56 WBC 11.2 H (4.0-11.0) th/mm3 Hgb 8.8 L (13.0-17.0) gm/dL Hct 26.2 L (39.0-51.0) % Plt Count 410 (150-450) th/mm3 <Osmel Pagan R - 05/06/18 12:35> Abnormal lab results 05/04/18 05/04/18 05/05/18 Range/Units 17:28 19:55 08:00 WBC (4.0-11.0) th/mm3 RBC (4.50-5.90) mil/mm3 Hgb (13.0-17.0) gm/dL Hct (39.0-51.0) % RDW (11.6-17.2) % [place] % (Auto) (0.0-8.0) % Eos % (Auto) (0.0-4.0) % Baso % (Auto) (0.0-2.0) % [place] # (Auto) (0.0-0.9) th/mm3 Eos # (Auto) (0.0-0.4) th/mm3 Baso # (Auto) (0.0-0.2) th/mm3 Band Neuts % (Manual) (0-6) % Lymphocytes % (Manual) (9-44) % Eosinophils % (Manual) (0-4) % Abs Neuts (Manual) (1.8-7.7) th/mm3 Toxic Granulation (None) Ovalocytes (None) Potassium 3.3 L (3.5-5.1) meq/L POC Glucose 145 H 182 H (68-110) mg/dl Random Glucose 127 H (74-106) mg/dL Calcium 7.7 L (8.5-10.1) mg/dL 05/05/18 05/05/18 05/05/18 Range/Units 08:00 08:06 11:48 WBC 11.6 H (4.0-11.0) th/mm3 RBC 2.92 L (4.50-5.90) mil/mm3 Hgb 8.8 L (13.0-17.0) gm/dL Hct 26.1 L (39.0-51.0) % RDW 19.6 H (11.6-17.2) % [place] % (Auto) 10.1 H (0.0-8.0) % Eos % (Auto) 8.3 H (0.0-4.0) % Baso % (Auto) 2.7 H (0.0-2.0) % [place] # (Auto) 1.2 H (0.0-0.9) th/mm3 Eos # (Auto) 1.0 H (0.0-0.4) th/mm3 Baso # (Auto) 0.3 H (0.0-0.2) th/mm3 Band Neuts % (Manual) 15 H (0-6) % Lymphocytes % (Manual) 7 L (9-44) % Eosinophils % (Manual) 12 H (0-4) % Abs Neuts (Manual) 8.2 H (1.8-7.7) th/mm3 Toxic Granulation 2+ H (None) Ovalocytes 1+ H (None) Potassium (3.5-5.1) meq/L POC Glucose 133 H 154 H (68-110) mg/dl Random Glucose (74-106) mg/dL Calcium (8.5-10.1) mg/dL Short CBC 05/05/18 Range/Units 08:00 WBC 11.6 H (4.0-11.0) th/mm3 Hgb 8.8 L (13.0-17.0) gm/dL Hct 26.1 L (39.0-51.0) % Plt Count 431 (150-450) th/mm3 [facility] 05/05/18 08:00 Sodium 137 Potassium 3.3 L Chloride 104 Carbon Dioxide 25.5 BUN 10 Creatinine 0.60 Calcium 7.7 L <Sakshi Garza D - 05/05/18 12:25> Physical Exam Vital signs: Vital Signs 05/05/18 16:00 05/05/18 20:00 05/06/18 00:00 Temperature 98.5 F 97.8 F 98.4 F Pulse Rate 62 64 59 L Respiratory Rate 18 18 17 Blood Pressure 128/60 134/71 123/55 L Pulse Oximetry 96 97 97 05/06/18 04:00 05/06/18 08:00 Temperature 98 F 97.8 F Pulse Rate 57 L 58 L Respiratory Rate 18 18 Blood Pressure 118/61 147/85 H Pulse Oximetry 97 94 L Intake & Output 05/05/18 05/06/18 05/06/18 18:59 06:59 18:59 Intake Total 962.5 / 962.5 410 / 410 Output Total 1000 / 1000 1000 / 1000 Balance -37.5 / -37.5 -590 / -590 Weight 83.8 kg Intake: IV 362.5 / 362.5 200 / 200 Zerbaxa Inj 1,500 MG In NS Inj 100 / 100 200 / 200 100 ML @ 100 mls/hr IV.SIG Q8H [facility] Rx#:[id number] Vancomycin Inj 1,250 MG In NS 262.5 / 262.5 Inj 250 ML @ 262.5 mls/hr IV. SIG Q24H [facility] Rx#:[id number] Oral 600 / 600 210 / 210 Output: Urine 1000 / 1000 1000 / 1000 Other: Date of Last Bowel Movement 05/04/18 05/04/18 05/04/18 # Bowel Movements 0 <Osmel Pagan R - 05/06/18 12:35> Vital Signs 05/04/18 16:00 05/04/18 20:00 05/04/18 23:10 Temperature 97.4 F L 99.0 F Pulse Rate 57 L 69 Respiratory Rate 18 16 20 Blood Pressure 159/77 H 146/63 H Pulse Oximetry 97 96 05/05/18 00:00 05/05/18 03:20 05/05/18 04:00 Temperature 98.9 F 98.9 F Pulse Rate 58 L 62 Respiratory Rate 16 20 16 Blood Pressure 144/63 H 150/71 H Pulse Oximetry 95 95 05/05/18 08:00 Temperature 98.2 F Pulse Rate 57 L Respiratory Rate 18 Blood Pressure 141/64 H Pulse Oximetry 95 Intake & Output 05/04/18 05/05/18 05/05/18 18:59 06:59 18:59 Intake Total 942.5 / 942.5 340 / 340 100 / 100 Output Total 1300 / 1300 1700 / 1700 Balance -357.5 / -357.5 -1360 / -1360 100 / 100 Weight 83.8 kg Intake: IV 462.5 / 462.5 100 / 100 100 / 100 Zerbaxa Inj 1,500 MG In NS Inj 200 / 200 100 / 100 100 / 100 100 ML @ 100 mls/hr IV.SIG Q8H [facility] Rx#:[id number] Vancomycin Inj 1,250 MG In NS 262.5 / 262.5 Inj 250 ML @ 262.5 mls/hr IV. SIG Q24H [facility] Rx#:[id number] Oral 480 / 480 240 / 240 Output: Urine 1300 / 1300 Urine Amount (Catheter) 1700 / 1700 Condom 1700 / 1700 Other: Date of Last Bowel Movement 05/03/18 05/04/18 # Bowel Movements 1 # Incontinent Bowel Movements 1 <Sakshi Garza D - 05/05/18 12:25> Narrative: GENERAL: Pleasant elderly male thin, appears malnourished. Alert to person and place but not time. SKIN: Cool and dry. No generalized rash. Has some scattered ecchymoses in his UE. HEAD: Atraumatic. Normocephalic. No temporal wasting, or tenderness. EYES: Anisocoria and left eye, EOMI CARDIOVASCULAR: Regular rate and rhythm. No murmurs, rubs or gallops heard RESPIRATORY: Clear to auscultation. Breath sounds equal bilaterally. No rales , wheezing or rhonchi ABDOMEN: Soft, non-tender, nondistended. No guarding. No rebound. No organomegaly. EXTREMITIES: No edema. Atrophic muscular changes in both legs bilaterally. Right heel covered in bandage. Left foot bandage dry and clean. Patient also has wound on right thigh that is bandaged. Dressing in place,with some serious sanguinous drainage. Dressing removed and wound has some serious sanguinous oozing no erythema surrounding the incision. Patient able to move toes bilaterally and no decreased sensation. Weak pulse palpated on right popliteal artery. <Calzado,Sakshi D - 05/05/18 16:49> - Urinary Catheter Management Condom Cath placed during this visit: no <Oslos,Osmel R - 05/06/18 12:35> no <Calzado,Sakshi D - 05/05/18 16:49> Reason for continuing: Not indwelling catheter <Calzado,Sakshi D - 05/05/18 12: 25> Indwelling Urethral Catheter Cath placed during this visit: no <OsestelasOsmel R - 05/06/18 12:35> yes, but has since been removed by the nurse <Calzado,Sakshi D - 05/05/18 16:49> Reason for continuing: Not indwelling catheter <Calzado,Sakshi D - 05/05/18 12: 25> Insertion date: 04/11/18 <Calzado,Sakshi D - 05/05/18 12:25> Insertion time: 21:08 <Calzado,Sakshi D - 05/05/18 12:25> Removal date: 04/12/18 <Calzado,Sakshi D - 05/05/18 12:25> Removal time: 11:35 <Calzado,Sakshi D - 05/05/18 12:25> Straight Cath placed during this visit: no <Oslos,Osmel R - 05/06/18 12:35> yes <Calzado,Sakshi D - 05/05/18 16:49> Reason for continuing: Other continuation reason <Calzado,Sakshi D - 05/05/18 12:25> Insertion date: 04/11/18 <Calzado,Sakshi D - 05/05/18 12:25> Insertion time: 21:08 <Calzado,Sakshi D - 05/05/18 12:25> Assessment and Plan - Assessment (1) Anemia Code(s): D64.9 - Anemia, unspecified Status: Acute (2) Osteomyelitis of ankle Code(s): M86.9 - Osteomyelitis, unspecified Status: Acute (3) Infection associated with internal hip prosthesis Code(s): T84.59XA - Infection and inflammatory reaction due to other internal joint prosthesis, initial encounter; Z96.649 - Presence of unspecified artificial hip joint Status: Acute (4) Chronic wound of extremity Status: Chronic (5) MRSA (methicillin resistant staph aureus) culture positive Code(s): Z22.322 - Carrier or suspected carrier of Methicillin resistant Staphylococcus aureus Status: Acute (6) PAD (peripheral artery disease) Code(s): I73.9 - Peripheral vascular disease, unspecified Status: Chronic (7) Bandemia Code(s): D72.825 - Bandemia Status: Resolved (8) Hydronephrosis Code(s): N13.30 - Unspecified hydronephrosis Status: Acute (9) HTN (hypertension) Code(s): I10 - Essential (primary) hypertension Status: Acute (10) Diabetes Code(s): E11.9 - Type 2 diabetes mellitus without complications Status: Acute (11) Malnutrition Code(s): E46 - Unspecified protein-calorie malnutrition Status: Acute (12) Anisocoria Code(s): H57.02 - Anisocoria Status: Acute (13) Nutrition, metabolism, and development symptoms Code(s): R63.8 - Other symptoms and signs concerning food and fluid intake Status: Acute <Osmel Pagan - 05/06/18 12:35> (1) Anemia Code(s): D64.9 - Anemia, unspecified Status: Acute Plan: On admission on 04/11 patient found to have hemoglobin of 6.6 and transfused 2 units of packed RBC. Also had tarry stools and underwent endoscopy and colonoscopy which were benign except small ulcer in the rectum. Placed on PPI and iron. H and H trended -04/29 Hbg 6.5 down from 7.5 -transfused one unit of PRBC repeat H/H 04/30 6.1 -Order for additional unit of PRBC and H/H. Repeat H/H 6.6. Two additional units ordered based on critical care physician recommendations -Transferred to ICU; once patient's hemoglobin improved and asymptomatic transferred back to the floor. -CT abdomen: two non obstructive kidney stones and some constipation -Consulted ortho: Bleeding possibly from femoral canal. During procedure box was not used because of patient's response to previous hardware. Dr. Muñoz stated that hemoglobin should stabilize and that the bleeding could continue for up to 2 weeks after the procedure. H/H stable and improved -Continue to trend H/H (2) Osteomyelitis of ankle Code(s): M86.9 - Osteomyelitis, unspecified Status: Acute Plan: MRI showed evidence of osteomyelitis of right ankle which likely has been brewing for some time in this diabetic patient with PAD with chronic lower- extremity non-healing ulcers Culture positive for MRSA at different site (right thigh wound) Wound Cx of right ankle showed Pseudomonas as well as multidrug-resistant Proteus and group D enterococcus Blood cultures NGTD Afebrile Podiatry consulted, appreciate assistance; * plan for patient to have calcanectomy on 04/26 however due to patient's inability to recall presurgery discussion when seen by podiatry the morning of 04/26 Dr. Urena will no longer be performing calcanectomy procedure. * Recommends: betadine wet to dry daily and if foot/heel becomes acutely infected rec as patient is unable to care for himself or able to mentally process limb salvage procedure options. In addition, the likelihood of failure was already high due to the low vascularity to the right lower limb. * Podiatry has signed off. * Discussed option of below-knee amputation of right lower extremity and Patient still not interested Vascular surgery consulted * s/p [employer] of popliteal stenosis on 04/24 * Anterior tibial, posterior tibia and peritoneal artery occluded Lower extremity pulses appreciated Via Doppler. Right popliteal pulse appreciated on exam * ID consulted, appreciate recs * Continue vancomycin--until Jun 07, 6 weeks after hardware removal for the R hip * Continue Zerbaxa--for the heel ulcer and osteo * Patient would like another antibiotic rec than zabraxa in order for him to be able to be [facility] to [facility] * Wound care consulted, appreciate recs * See note from 04/25 * follow recommendations * Pain management with [place] scheduled, gabapentin, morphine for breakthrough pain (3) Infection associated with internal hip prosthesis Code(s): T84.59XA - Infection and inflammatory reaction due to other internal joint prosthesis, initial encounter; Z96.649 - Presence of unspecified artificial hip joint Status: Acute Plan: Wound care noted patient's right hip wound to be more purulent and fluctuant on 04/25 Right femur MRI was ordered and results showed: -Osseous cutaneous fistulous tract extending from the greater trochanter to the skin surface with small subcutaneous fluid collection identified. The collection appears to communicate with the prosthetic component in the proximal femur. -. Edematous changes are noted along the vastus lateralis and iliotibial band. -Patient spiked fever on 04/28: BCX no growth to date Follow wound care recommendations for care Orthopedic consultation: 04/27 irrigation and debridement with hardware removal and placement of antibiotic beads Recommendation: "TTWB RLE and Dressing changes daily and as needed. Incisions will have drainage for likely several days to even couple of weeks as antibiotic beads were placed along with removal of hardware and debridement of the femur leaving an open femoral canal. This should slowly stop over several days to weeks. Dressing changes as needed.Antibiotics per ID for chronic osteomyelitis. Plan for patient to follow-up in my office in 2 weeks" (4) Chronic wound of extremity Status: Chronic Plan: Patient currently follows up with wound care as an outpatient Right hip wound, super observant dressing daily Skin tear lower left extremity, Santyl covered and dry dressing daily Right heel wound, apply gentamicin cream twice daily, see above plan for associated osteomyelitis Wound care consulted, appreciate recommendations * Cleanse wound to R Achilles heel with normal saline only and pat dry. Apply gentamicin mixed with Santyl 50/ 50 and apply to wound bed * Cover with ABD pad, and secure with rolled gauze and tape. Change dressing daily, until seen by podiatry. * Cleanse wound to R hip see updated note from 04/25 and follow ortho rec for dressing * Cleanse wound to L posterior lower leg with normal saline and pat dry. Apply optifoam gentle 4x4 dressing change dressing every 3 days or PRN if saturated or dislodged. (5) MRSA (methicillin resistant staph aureus) culture positive Code(s): Z22.322 - Carrier or suspected carrier of Methicillin resistant Staphylococcus aureus Status: Acute Plan: This patient suffers from chronic nonhealing wounds likely secondary to peripheral arterial disease and DM. Patient had wound from right thigh cultured which ultimately grew MRSA. -Monitor for fevers and signs of systemic illness -Antibiotic therapy as above (6) PAD (peripheral artery disease) Code(s): I73.9 - Peripheral vascular disease, unspecified Status: Chronic Plan: s/p recent right LE arterectomy. s/p vascular procedure as above on 04/24 (7) Bandemia Code(s): D72.825 - Bandemia Status: Resolved Plan: Resolved, likely due to osteomyelitis. See above plan. (8) Hydronephrosis Code(s): N13.30 - Unspecified hydronephrosis Status: Acute Plan: Abdominal pelvis CT demonstrates development of moderate left hydronephrosis and hydroureter without ureteral obstruction. Also demonstrates stool ball in the rectum large amount of stool throughout the colon. Patient had a bladder scan 04/11 that revealed of a residual volume of 231 mL. Patient currently voiding well. Patient has no CVA tenderness. Hammer in place UA on 04/26 : negative for infection - Continue to monitor I's and O's. (9) HTN (hypertension) Code(s): I10 - Essential (primary) hypertension Status: Acute Plan: Continue Cardizem and amiodarone (10) Diabetes Code(s): E11.9 - Type 2 diabetes mellitus without complications Status: Acute Plan: Held home glipizide, Januvia Accu-Cheks Low-dose sliding scale Hypoglycemia protocol in place (11) Malnutrition Code(s): E46 - Unspecified protein-calorie malnutrition Status: Acute Plan: This patient appears thin and possibly malnourished. Patient has significant muscle atrophy in arms and legs that are partially consistent with age and lack of activity. -Begin diet supplementation with Ensure (12) Anisocoria Code(s): H57.02 - Anisocoria Status: Acute Plan: Most likely chronic in view of no other alarming ophthalmologic signs/symptoms Can follow up with Ophthalmology outpatient (13) Nutrition, metabolism, and development symptoms Code(s): R63.8 - Other symptoms and signs concerning food and fluid intake Status: Acute Plan: Fluids: per PO Diet: Diabetic supplements with protein shake Electrolytes: monitor and replete as needed DVT prophylaxis: Contraindicated due to upper GI bleed Disposition: SNF not taking patient at this time due to cost of Zerbaxa. <Sakshi Garza - 05/05/18 16:44> - Attending Attestation This patient was seen and examined. The assessment and plan was discussed with the resident physician and I am in agreement with continued medical care as documented in this encounter. OSMEL PAGAN MD <Osmel Pagan - 05/06/18 12:35> <Sakshi Garza D - Last Filed: 05/05/18 16:44> (2) Osteomyelitis of ankle Qualifiers: Osteomyelitis type: other chronic Laterality: right Qualified Code(s): M86.671 - Other chronic osteomyelitis, right ankle and foot (8) Hydronephrosis Qualifiers: Hydronephrosis type: unspecified Qualified Code(s): N13.30 - Unspecified hydronephrosis <Osmel Pagan - Last Filed: 05/06/18 12:35> (2) Osteomyelitis of ankle Qualifiers: Osteomyelitis type: other chronic Laterality: right Qualified Code(s): M86.671 - Other chronic osteomyelitis, right ankle and foot (8) Hydronephrosis Qualifiers: Hydronephrosis type: unspecified Qualified Code(s): N13.30 - Unspecified hydronephrosis <Sakshi Garza D - Last Filed: 05/05/18 16:44> (2) Osteomyelitis of ankle Qualifiers: Osteomyelitis type: other chronic Laterality: right Qualified Code(s): M86.671 - Other chronic osteomyelitis, right ankle and foot (8) Hydronephrosis Qualifiers: Hydronephrosis type: unspecified Qualified Code(s): N13.30 - Unspecified hydronephrosis <Osmel Pagan - Last Filed: 05/06/18 12:35> (2) Osteomyelitis of ankle Qualifiers: Osteomyelitis type: other chronic Laterality: right Qualified Code(s): M86.671 - Other chronic osteomyelitis, right ankle and foot (8) Hydronephrosis Qualifiers: Hydronephrosis type: unspecified Qualified Code(s): N13.30 - Unspecified hydronephrosis
[2018-05-05] MEDS: Vancomycin Inj 1,250 MG in Sodium Chlor 0.9% Inj 250 ML IV.SIG SCH (14:53)
[2018-05-05] MEDS: Magnesium Oxide 400 MG Tablet PO SCH (20:37)
[2018-05-06] MEDS: CEFTOLOZANE IV.SIG SCH ×3 (02:22→17:26)
[2018-05-06] MEDS: TAZOBACTAM IV.SIG SCH ×3 (02:22→17:26)
[2018-05-06] MEDS: SODIUM CHLOR 0.9% IV.SIG SCH ×3 (02:22→17:26)
[2018-05-06] MEDS: Levothyroxine 125 MCG Tablet PO SCH (05:23)
[2018-05-06 07:36] LABS: Baso # (Auto) 0.4 th/mm3 (0.0-0.2); Baso % (Auto) 3.6 % (0.0-2.0); Eos % (Auto) 8.6 % (0.0-4.0); Hematocrit 26.2 % (39.0-51.0); Hemoglobin 8.8 gm/dL (13.0-17.0); Lymph # (Auto) 1.4 th/mm3 (1.0-4.8); Lymph % (Auto) 12.8 % (9.0-44.0); Mean Corpuscular HGB Conc 33.6 % (32.0-36.0); Mean Corpuscular Hemoglobin 29.8 pg (27.0-34.0); Mean Corpuscular Volume 88.5 fL (80.0-100.0); Mean Platelet Volume 7.1 fL (7.0-11.0); Mono # (Auto) 1.2 th/mm3 (0.0-0.9); Mono % (Auto) 10.7 % (0.0-8.0); Neut # (Auto) 7.2 th/mm3 (1.8-7.7); Neut % (Auto) 64.3 % (16.0-70.0); Platelet Count 410 th/mm3 (150-450); Red Blood Count 2.97 mil/mm3 (4.50-5.90); Red Cell Distribution Width 19.7 % (11.6-17.2); White Blood Count 11.2 th/mm3 (4.0-11.0)
[2018-05-06 08:46] LABS: Eosinophils 5 % (0-4); Lymphocytes 13 % (9-44); Monocytes 6 % (0-8); Myelocytes 1 % (0-0)
[2018-05-06 08:47] LABS: Acanthocytes Occ
[2018-05-06 08:48] LABS: Ovalocytes 1+; Platelet Morphology Normal (Normal); Toxic Granulation 1+
[2018-05-06] MEDS: Magnesium Oxide 400 MG Tablet PO SCH ×4 (09:36→21:25)
[2018-05-06] MEDS: Amiodarone 200 MG Tablet PO SCH (09:36)
[2018-05-06] MEDS: Gabapentin 300 MG Capsule PO SCH ×3 (09:36→17:20)
[2018-05-06] MEDS: Potassium Phos/Sodium Phos 250 MG Tablet PO SCH ×4 (09:37→21:24)
[2018-05-06] MEDS: Sodium Chloride 1 GM Tablet PO SCH ×3 (09:37→17:20)
[2018-05-06] MEDS: Ferrous Sulfate 325 MG Tablet PO SCH ×3 (09:37→17:20)
[2018-05-06] MEDS: Ascorbic Acid 500 MG Tablet PO SCH ×2 (09:37→21:24)
[2018-05-06] MEDS: Docusate Sodium 100 MG Capsule PO SCH ×2 (09:37→21:24)
[2018-05-06] MEDS: Collagenase Oint 30 GM Tube TOPICAL SCH (09:38)
[2018-05-06] MEDS: Gentamicin 0.1% Cream 15 GM Cream TOPICAL SCH ×2 (09:38→21:25)
[2018-05-06] MEDS: Insulin NovoLOG Aspart Correctional Sugar Inj SQ SCH ×4 (09:38→21:25)
[2018-05-06] MEDS: Polyethylene Glycol 3350 17 GM Packet PO SCH (09:38)
--- NOTE | 2018-05-06 12:02 | P.PNFP ---
Subjective Interval history: Patient seen and examined this morning. No acute events overnight. Denies any fever, chills, chest pain, shortness of breath, palpitations, dizziness, headaches, nausea, vomiting, abdominal pain. Patient was eating well and having good bowel movements. <Sakshi Garza D - 05/06/18 12:01> Results - Labs Result diagrams: 05/06/18 06:56 05/05/18 08:00 <Osmel Pagan R - 05/06/18 12:42> Abnormal lab results 05/05/18 05/05/18 05/06/18 Range/Units 16:59 19:40 06:56 WBC 11.2 H (4.0-11.0) th/mm3 RBC 2.97 L (4.50-5.90) mil/mm3 Hgb 8.8 L (13.0-17.0) gm/dL Hct 26.2 L (39.0-51.0) % RDW 19.7 H (11.6-17.2) % [place] % (Auto) 10.7 H (0.0-8.0) % Eos % (Auto) 8.6 H (0.0-4.0) % Baso % (Auto) 3.6 H (0.0-2.0) % [place] # (Auto) 1.2 H (0.0-0.9) th/mm3 Eos # (Auto) 1.0 H (0.0-0.4) th/mm3 Baso # (Auto) 0.4 H (0.0-0.2) th/mm3 Band Neuts % (Manual) 8 H (0-6) % Eosinophils % (Manual) 5 H (0-4) % Myelocytes % (Man) 1 H (0-0) % Abs Neuts (Manual) 8.4 H (1.8-7.7) th/mm3 Toxic Granulation 1+ H (None) Platelet Estimate High H (Normal) Ovalocytes 1+ H (None) Acanthocytes (Spur) Occ H (None) POC Glucose 179 H 208 H (68-110) mg/dl 05/06/18 05/06/18 Range/Units 07:50 12:11 WBC (4.0-11.0) th/mm3 RBC (4.50-5.90) mil/mm3 Hgb (13.0-17.0) gm/dL Hct (39.0-51.0) % RDW (11.6-17.2) % [place] % (Auto) (0.0-8.0) % Eos % (Auto) (0.0-4.0) % Baso % (Auto) (0.0-2.0) % [place] # (Auto) (0.0-0.9) th/mm3 Eos # (Auto) (0.0-0.4) th/mm3 Baso # (Auto) (0.0-0.2) th/mm3 Band Neuts % (Manual) (0-6) % Eosinophils % (Manual) (0-4) % Myelocytes % (Man) (0-0) % Abs Neuts (Manual) (1.8-7.7) th/mm3 Toxic Granulation (None) Platelet Estimate (Normal) Ovalocytes (None) Acanthocytes (Spur) (None) POC Glucose 131 H 151 H (68-110) mg/dl Short CBC 05/06/18 Range/Units 06:56 WBC 11.2 H (4.0-11.0) th/mm3 Hgb 8.8 L (13.0-17.0) gm/dL Hct 26.2 L (39.0-51.0) % Plt Count 410 (150-450) th/mm3 <Osmel Pagan R - 05/06/18 12:42> Abnormal lab results 05/05/18 05/05/18 05/05/18 Range/Units 11:48 16:59 19:40 WBC (4.0-11.0) th/mm3 RBC (4.50-5.90) mil/mm3 Hgb (13.0-17.0) gm/dL Hct (39.0-51.0) % RDW (11.6-17.2) % [place] % (Auto) (0.0-8.0) % Eos % (Auto) (0.0-4.0) % Baso % (Auto) (0.0-2.0) % [place] # (Auto) (0.0-0.9) th/mm3 Eos # (Auto) (0.0-0.4) th/mm3 Baso # (Auto) (0.0-0.2) th/mm3 Band Neuts % (Manual) (0-6) % Eosinophils % (Manual) (0-4) % Myelocytes % (Man) (0-0) % Abs Neuts (Manual) (1.8-7.7) th/mm3 Toxic Granulation (None) Platelet Estimate (Normal) Ovalocytes (None) Acanthocytes (Spur) (None) POC Glucose 154 H 179 H 208 H (68-110) mg/dl 05/06/18 05/06/18 Range/Units 06:56 07:50 WBC 11.2 H (4.0-11.0) th/mm3 RBC 2.97 L (4.50-5.90) mil/mm3 Hgb 8.8 L (13.0-17.0) gm/dL Hct 26.2 L (39.0-51.0) % RDW 19.7 H (11.6-17.2) % [place] % (Auto) 10.7 H (0.0-8.0) % Eos % (Auto) 8.6 H (0.0-4.0) % Baso % (Auto) 3.6 H (0.0-2.0) % [place] # (Auto) 1.2 H (0.0-0.9) th/mm3 Eos # (Auto) 1.0 H (0.0-0.4) th/mm3 Baso # (Auto) 0.4 H (0.0-0.2) th/mm3 Band Neuts % (Manual) 8 H (0-6) % Eosinophils % (Manual) 5 H (0-4) % Myelocytes % (Man) 1 H (0-0) % Abs Neuts (Manual) 8.4 H (1.8-7.7) th/mm3 Toxic Granulation 1+ H (None) Platelet Estimate High H (Normal) Ovalocytes 1+ H (None) Acanthocytes (Spur) Occ H (None) POC Glucose 131 H (68-110) mg/dl Short CBC 05/06/18 Range/Units 06:56 WBC 11.2 H (4.0-11.0) th/mm3 Hgb 8.8 L (13.0-17.0) gm/dL Hct 26.2 L (39.0-51.0) % Plt Count 410 (150-450) th/mm3 <Sakshi Garza D - 05/06/18 12:01> Physical Exam Vital signs: Vital Signs 05/05/18 16:00 05/05/18 20:00 05/06/18 00:00 Temperature 98.5 F 97.8 F 98.4 F Pulse Rate 62 64 59 L Respiratory Rate 18 18 17 Blood Pressure 128/60 134/71 123/55 L Pulse Oximetry 96 97 97 05/06/18 04:00 05/06/18 08:00 Temperature 98 F 97.8 F Pulse Rate 57 L 58 L Respiratory Rate 18 18 Blood Pressure 118/61 147/85 H Pulse Oximetry 97 94 L Intake & Output 05/05/18 05/06/18 05/06/18 18:59 06:59 18:59 Intake Total 962.5 / 962.5 410 / 410 Output Total 1000 / 1000 1000 / 1000 Balance -37.5 / -37.5 -590 / -590 Weight 83.8 kg Intake: IV 362.5 / 362.5 200 / 200 Zerbaxa Inj 1,500 MG In NS Inj 100 / 100 200 / 200 100 ML @ 100 mls/hr IV.SIG Q8H ACE Rx#:[id number] Vancomycin Inj 1,250 MG In NS 262.5 / 262.5 Inj 250 ML @ 262.5 mls/hr IV. SIG Q24H ACE Rx#:[id number] Oral 600 / 600 210 / 210 Output: Urine 1000 / 1000 1000 / 1000 Other: Date of Last Bowel Movement 05/04/18 05/04/18 05/04/18 # Bowel Movements 0 <Osmel Pagan R - 05/06/18 12:42> Vital Signs 05/05/18 12:00 05/05/18 16:00 05/05/18 20:00 Temperature 97.8 F 98.5 F 97.8 F Pulse Rate 59 L 62 64 Respiratory Rate 20 18 18 Blood Pressure 136/65 128/60 134/71 Pulse Oximetry 95 96 97 05/06/18 00:00 05/06/18 04:00 05/06/18 08:00 Temperature 98.4 F 98 F 97.8 F Pulse Rate 59 L 57 L 58 L Respiratory Rate 17 18 18 Blood Pressure 123/55 L 118/61 147/85 H Pulse Oximetry 97 97 94 L Intake & Output 05/05/18 05/06/18 05/06/18 18:59 06:59 18:59 Intake Total 962.5 / 962.5 410 / 410 Output Total 1000 / 1000 1000 / 1000 Balance -37.5 / -37.5 -590 / -590 Weight 83.8 kg Intake: IV 362.5 / 362.5 200 / 200 Zerbaxa Inj 1,500 MG In NS Inj 100 / 100 200 / 200 100 ML @ 100 mls/hr IV.SIG Q8H ACE Rx#:[id number] Vancomycin Inj 1,250 MG In NS 262.5 / 262.5 Inj 250 ML @ 262.5 mls/hr IV. SIG Q24H ACE Rx#:[id number] Oral 600 / 600 210 / 210 Output: Urine 1000 / 1000 1000 / 1000 Other: Date of Last Bowel Movement 05/04/18 05/04/18 05/04/18 # Bowel Movements 0 <Sakshi Garza - 05/06/18 12:01> Narrative: GENERAL: Pleasant elderly male thin, appears malnourished. Alert to person and place but not time. SKIN: Cool and dry. No generalized rash. Has some scattered ecchymoses in his UE. HEAD: Atraumatic. Normocephalic. No temporal wasting, or tenderness. EYES: Anisocoria and left eye, EOMI CARDIOVASCULAR: Regular rate and rhythm. No murmurs, rubs or gallops heard RESPIRATORY: Clear to auscultation. Breath sounds equal bilaterally. No rales , wheezing or rhonchi ABDOMEN: Soft, non-tender, nondistended. No guarding. No rebound. No organomegaly. EXTREMITIES: No edema. Atrophic muscular changes in both legs bilaterally. Right heel covered in bandage. Left foot bandage dry and clean. Patient also has wound on right thigh that is bandaged. Dressing in place,with some serious sanguinous drainage. Dressing removed and wound has some serious sanguinous oozing no erythema surrounding the incision, healing well. Patient able to move toes bilaterally and no decreased sensation. Weak pulse palpated on right popliteal artery. sacral wound inspected, erythematous with dressing applied. <Sakshi Garza - 05/06/18 12:01> - Urinary Catheter Management Condom Cath placed during this visit: no <OslosOsmel R - 05/06/18 12:42> no <Calzado,Sakshi D - 05/06/18 12:01> Reason for continuing: Not indwelling catheter <Calzado,Sakshi D - 05/06/18 12: 01> Indwelling Urethral Catheter Cath placed during this visit: no <OslosOsmel R - 05/06/18 12:42> yes, but has since been removed by the nurse <Calzado,Sakshi D - 05/06/18 12:01> Reason for continuing: Not indwelling catheter <Calzado,Sakshi D - 05/06/18 12: 01> Insertion date: 04/11/18 <Calzado,Sakshi D - 05/06/18 12:01> Insertion time: 21:08 <Calzado,Sakshi D - 05/06/18 12:01> Removal date: 04/12/18 <Calzado,Sakshi D - 05/06/18 12:01> Removal time: 11:35 <Calzado,Sakshi D - 05/06/18 12:01> Straight Cath placed during this visit: no <OslosOsmel R - 05/06/18 12:42> yes <Calzado,Sakshi D - 05/06/18 12:01> Reason for continuing: Other continuation reason <Calzado,Sakshi D - 05/06/18 12:01> Insertion date: 04/11/18 <Calzado,Sakshi D - 05/06/18 12:01> Insertion time: 21:08 <Calzado,Sakshi D - 05/06/18 12:01> Assessment and Plan - Assessment (1) Anemia Code(s): D64.9 - Anemia, unspecified Status: Acute (2) Osteomyelitis of ankle Code(s): M86.9 - Osteomyelitis, unspecified Status: Acute (3) Infection associated with internal hip prosthesis Code(s): T84.59XA - Infection and inflammatory reaction due to other internal joint prosthesis, initial encounter; Z96.649 - Presence of unspecified artificial hip joint Status: Acute (4) Chronic wound of extremity Status: Chronic (5) MRSA (methicillin resistant staph aureus) culture positive Code(s): Z22.322 - Carrier or suspected carrier of Methicillin resistant Staphylococcus aureus Status: Acute (6) PAD (peripheral artery disease) Code(s): I73.9 - Peripheral vascular disease, unspecified Status: Chronic (7) Bandemia Code(s): D72.825 - Bandemia Status: Resolved (8) Hydronephrosis Code(s): N13.30 - Unspecified hydronephrosis Status: Acute (9) HTN (hypertension) Code(s): I10 - Essential (primary) hypertension Status: Acute (10) Diabetes Code(s): E11.9 - Type 2 diabetes mellitus without complications Status: Acute (11) Malnutrition Code(s): E46 - Unspecified protein-calorie malnutrition Status: Acute (12) Anisocoria Code(s): H57.02 - Anisocoria Status: Acute (13) Nutrition, metabolism, and development symptoms Code(s): R63.8 - Other symptoms and signs concerning food and fluid intake Status: Acute <Osmel Pagan - 05/06/18 12:42> (1) Anemia Code(s): D64.9 - Anemia, unspecified Status: Acute Plan: On admission on 04/11 patient found to have hemoglobin of 6.6 and transfused 2 units of packed RBC. Also had tarry stools and underwent endoscopy and colonoscopy which were benign except small ulcer in the rectum. Placed on PPI and iron. H and H trended -04/29 Hbg 6.5 down from 7.5 -transfused one unit of PRBC repeat H/H 04/30 6.1 -Order for additional unit of PRBC and H/H. Repeat H/H 6.6. Two additional units ordered based on critical care physician recommendations -Transferred to ICU; once patient's hemoglobin improved and asymptomatic transferred back to the floor. -CT abdomen: two non obstructive kidney stones and some constipation -Consulted ortho: Bleeding possibly from femoral canal. During procedure box was not used because of patient's response to previous hardware. Dr. Muñoz stated that hemoglobin should stabilize and that the bleeding could continue for up to 2 weeks after the procedure. H/H stable and improved -Continue to trend H/H (2) Osteomyelitis of ankle Code(s): M86.9 - Osteomyelitis, unspecified Status: Acute Plan: MRI showed evidence of osteomyelitis of right ankle which likely has been brewing for some time in this diabetic patient with PAD with chronic lower- extremity non-healing ulcers Culture positive for MRSA at different site (right thigh wound) Wound Cx of right ankle showed Pseudomonas as well as multidrug-resistant Proteus and group D enterococcus Blood cultures NGTD Afebrile Podiatry consulted, appreciate assistance; * plan for patient to have calcanectomy on 04/26 however due to patient's inability to recall presurgery discussion when seen by podiatry the morning of 04/26 Dr. Urena will no longer be performing calcanectomy procedure. * Recommends: betadine wet to dry daily and if foot/heel becomes acutely infected rec as patient is unable to care for himself or able to mentally process limb salvage procedure options. In addition, the likelihood of failure was already high due to the low vascularity to the right lower limb. * Podiatry has signed off. * Discussed option of below-knee amputation of right lower extremity and Patient still not interested Vascular surgery consulted * s/p [employer] of popliteal stenosis on 04/24 * Anterior tibial, posterior tibia and peritoneal artery occluded Lower extremity pulses appreciated Via Doppler. Right popliteal pulse appreciated on exam * ID consulted, appreciate recs * Continue vancomycin--until Jun 07, 6 weeks after hardware removal for the R hip * Continue Zebraxa--for the heel ulcer and osteo due to resistance of organisms * Patient would like another antibiotic rec than zabraxa in order for him to be able to be discharge to correction * Wound care consulted, appreciate recs * See note from 04/25 * follow recommendations * Pain management with [place] scheduled, gabapentin, morphine for breakthrough pain (3) Infection associated with internal hip prosthesis Code(s): T84.59XA - Infection and inflammatory reaction due to other internal joint prosthesis, initial encounter; Z96.649 - Presence of unspecified artificial hip joint Status: Acute Plan: Wound care noted patient's right hip wound to be more purulent and fluctuant on 04/25 Right femur MRI was ordered and results showed: -Osseous cutaneous fistulous tract extending from the greater trochanter to the skin surface with small subcutaneous fluid collection identified. The collection appears to communicate with the prosthetic component in the proximal femur. -. Edematous changes are noted along the vastus lateralis and iliotibial band. -Patient spiked fever on 04/28: BCX no growth to date Follow wound care recommendations for care Orthopedic consultation: 04/27 irrigation and debridement with hardware removal and placement of antibiotic beads Recommendation: "TTWB RLE and Dressing changes daily and as needed. Incisions will have drainage for likely several days to even couple of weeks as antibiotic beads were placed along with removal of hardware and debridement of the femur leaving an open femoral canal. This should slowly stop over several days to weeks. Dressing changes as needed.Antibiotics per ID for chronic osteomyelitis. Plan for patient to follow-up in my office in 2 weeks" Right hip wound healing well (4) Chronic wound of extremity Status: Chronic Plan: Patient currently follows up with wound care as an outpatient Right hip wound, super observant dressing daily Skin tear lower left extremity, Santyl covered and dry dressing daily Right heel wound, apply gentamicin cream twice daily, see above plan for associated osteomyelitis Wound care consulted, appreciate recommendations * Cleanse wound to R Achilles heel with normal saline only and pat dry. Apply gentamicin mixed with Santyl 50/ 50 and apply to wound bed * Cover with ABD pad, and secure with rolled gauze and tape. Change dressing daily, until seen by podiatry. * Cleanse wound to R hip see updated note from 04/25 and follow ortho rec for dressing * Cleanse wound to L posterior lower leg with normal saline and pat dry. Apply optifoam gentle 4x4 dressing change dressing every 3 days or PRN if saturated or dislodged. * Sacral wound: -Please cleanse sacral area gently with Remedy barrier wipes and pat dry. Apply Cavilon skin barrier film spray to sacral area BID and PRN and leave open to air. -Turn and reposition patient every 2 hours from L to R side limiting time spent on back to P.T. and meals -Patient placed on low airloss bed/ mattress -Will try to get in contact with wound care for re-evaluation of sacral wound (5) MRSA (methicillin resistant staph aureus) culture positive Code(s): Z22.322 - Carrier or suspected carrier of Methicillin resistant Staphylococcus aureus Status: Acute Plan: This patient suffers from chronic nonhealing wounds likely secondary to peripheral arterial disease and DM. Patient had wound from right thigh cultured which ultimately grew MRSA. -Monitor for fevers and signs of systemic illness -Antibiotic therapy as above (6) PAD (peripheral artery disease) Code(s): I73.9 - Peripheral vascular disease, unspecified Status: Chronic Plan: s/p recent right LE arterectomy. s/p vascular procedure as above on 04/24 (7) Bandemia Code(s): D72.825 - Bandemia Status: Resolved Plan: Resolved, likely due to osteomyelitis. See above plan. (8) Hydronephrosis Code(s): N13.30 - Unspecified hydronephrosis Status: Acute Plan: Abdominal pelvis CT demonstrates development of moderate left hydronephrosis and hydroureter without ureteral obstruction. Also demonstrates stool ball in the rectum large amount of stool throughout the colon. Patient had a bladder scan 04/11 that revealed of a residual volume of 231 mL. Patient currently voiding well. Patient has no CVA tenderness. Hammer in place UA on 04/26 : negative for infection - Continue to monitor I's and O's. (9) HTN (hypertension) Code(s): I10 - Essential (primary) hypertension Status: Acute Plan: Continue Cardizem and amiodarone (10) Diabetes Code(s): E11.9 - Type 2 diabetes mellitus without complications Status: Acute Plan: Held home glipizide, Januvia Accu-Cheks Low-dose sliding scale Hypoglycemia protocol in place (11) Malnutrition Code(s): E46 - Unspecified protein-calorie malnutrition Status: Acute Plan: This patient appears thin and possibly malnourished. Patient has significant muscle atrophy in arms and legs that are partially consistent with age and lack of activity. -Begin diet supplementation with Ensure (12) Anisocoria Code(s): H57.02 - Anisocoria Status: Acute Plan: Most likely chronic in view of no other alarming ophthalmologic signs/symptoms Can follow up with Ophthalmology outpatient (13) Nutrition, metabolism, and development symptoms Code(s): R63.8 - Other symptoms and signs concerning food and fluid intake Status: Acute Plan: Fluids: per PO Diet: Diabetic supplements with protein shake Electrolytes: monitor and replete as needed DVT prophylaxis: Contraindicated due to upper GI bleed Disposition: SNF not taking patient at this time due to cost of Zerbaxa. <Sakshi Garza - 05/06/18 11:42> - Attending Attestation This patient was seen and examined. The assessment and plan was discussed with the resident physician and I am in agreement with continued medical care as documented in this encounter. OSMEL PAGAN MD <Osmel Pagan - 05/06/18 12:42> <Wilner Garzaly D - Last Filed: 05/06/18 11:42> (2) Osteomyelitis of ankle Qualifiers: Osteomyelitis type: other chronic Laterality: right Qualified Code(s): M86.671 - Other chronic osteomyelitis, right ankle and foot (8) Hydronephrosis Qualifiers: Hydronephrosis type: unspecified Qualified Code(s): N13.30 - Unspecified hydronephrosis <Osmel Pagan - Last Filed: 05/06/18 12:42> (2) Osteomyelitis of ankle Qualifiers: Osteomyelitis type: other chronic Laterality: right Qualified Code(s): M86.671 - Other chronic osteomyelitis, right ankle and foot (8) Hydronephrosis Qualifiers: Hydronephrosis type: unspecified Qualified Code(s): N13.30 - Unspecified hydronephrosis <KaylaSakshi D - Last Filed: 05/06/18 11:42> (2) Osteomyelitis of ankle Qualifiers: Osteomyelitis type: other chronic Laterality: right Qualified Code(s): M86.671 - Other chronic osteomyelitis, right ankle and foot (8) Hydronephrosis Qualifiers: Hydronephrosis type: unspecified Qualified Code(s): N13.30 - Unspecified hydronephrosis <Osmel Pagan - Last Filed: 05/06/18 12:42> (2) Osteomyelitis of ankle Qualifiers: Osteomyelitis type: other chronic Laterality: right Qualified Code(s): M86.671 - Other chronic osteomyelitis, right ankle and foot (8) Hydronephrosis Qualifiers: Hydronephrosis type: unspecified Qualified Code(s): N13.30 - Unspecified hydronephrosis
--- NOTE | 2018-05-06 14:34 | P.PNID ---
Subjective Remarks: Patient is an 87-year-old male, admitted to the hospital for evaluation of low hemoglobin. There was apparently episodes of black tarry stools. He had a GI workup on this admission, and he seemed to be stable from the GI standpoint. Patient apparently has had a wound on his right heel Achilles area. He had vascular workup, and underwent aortogram around April 08, and had atherectomy of the right SFA and popliteal area. Patient could not really tell me how long he has had the open wound. He has pain when he walks. There is been no fever and chills. On this admission podiatry was consulted. 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 There is a foul odor coming out from that right foot, and patient really could not notice any difference. Since admission he has not been febrile. He has significant pain whenever his RLE gets moved. There was a culture from a right thigh wound that has MRSA. I do not see any culture from the right foot. His initial WBC was around 14,000 and that is down to normal. Blood cultures are negative. Infectious disease consultation has been requested to evaluate the patient. Notes reviewed Temps ok Had surgery R hip 04/27 - removal of hardware Intraop C/S negative C/O pain R hip and R foot Underwent revascularization 04/24 C/S from ankle with MDR PSAE, Proteus and Enterococcus C/S R thigh MRSA (wound) Spoke with RN Antibiotics: Vancomycin Zerbaxa Lines: PIV Past Medical History: Weakness Diabetes HLD (hyperlipidemia) MDRO (multiple drug resistant organisms) resistance Onset Date: ~04/11/18 MRSA (methicillin resistant Staphylococcus aureus) PAD (peripheral artery disease) Hip surgery Allergies/Adverse Reactions: Allergies No Known Allergies Allergy (Verified 04/08/18 12:35) Objective Vital Signs 05/05/18 16:00 05/05/18 20:00 05/06/18 00:00 Temperature 98.5 F 97.8 F 98.4 F Pulse Rate 62 64 59 L Respiratory Rate 18 18 17 Blood Pressure 128/60 134/71 123/55 L Pulse Oximetry 96 97 97 05/06/18 04:00 05/06/18 08:00 Temperature 98 F 97.8 F Pulse Rate 57 L 58 L Respiratory Rate 18 18 Blood Pressure 118/61 147/85 H Pulse Oximetry 97 94 L Intake & Output 05/05/18 05/06/18 05/06/18 18:59 06:59 18:59 Intake Total 962.5 / 962.5 410 / 410 100 / 100 Output Total 1000 / 1000 1000 / 1000 Balance -37.5 / -37.5 -590 / -590 100 / 100 Weight 83.8 kg Intake: IV 362.5 / 362.5 200 / 200 100 / 100 Zerbaxa Inj 1,500 MG In NS Inj 100 / 100 200 / 200 100 / 100 100 ML @ 100 mls/hr IV.SIG Q8H ACE Rx#:[id number] Vancomycin Inj 1,250 MG In NS 262.5 / 262.5 Inj 250 ML @ 262.5 mls/hr IV. SIG Q24H ACE Rx#:[id number] Oral 600 / 600 210 / 210 Output: Urine 1000 / 1000 1000 / 1000 Other: Date of Last Bowel Movement 05/04/18 05/04/18 05/04/18 # Bowel Movements 0 04/27/18 12:43 Wound - Thigh Acid Fast Bacilli Smear - Final No acid fast bacilli seen 04/27/18 12:43 Wound - Thigh Mycobacterial Culture - Preliminary No growth in 1 week 04/27/18 12:43 Wound - Thigh Fungal Smear - Final No fungal elements seen 04/27/18 12:43 Wound - Thigh Fungal Culture - Preliminary No growth in 1 week 04/29/18 09:05 Blood - Peripheral Aerobic Blood Culture - Final No growth in 5 days 04/29/18 09:05 Blood - Peripheral Anaerobic Blood Culture - Final No growth in 5 days 04/29/18 09:10 Blood - Peripheral Aerobic Blood Culture - Final No growth in 5 days 04/29/18 09:10 Blood - Peripheral Anaerobic Blood Culture - Final No growth in 5 days Lab - Hematology Results 05/05/18 05/06/18 08:00 06:56 WBC 11.6 H 11.2 H RBC 2.92 L 2.97 L Hgb 8.8 L 8.8 L Hct 26.1 L 26.2 L MCV 89.1 88.5 MCH 30.0 29.8 MCHC 33.7 33.6 RDW 19.6 H 19.7 H Plt Count 431 410 MPV 7.0 7.1 Prelim Diff (Auto) Slide review pending Slide review pending Neut % (Auto) 65.2 64.3 Lymph % (Auto) 13.7 12.8 [place] % (Auto) 10.1 H 10.7 H Eos % (Auto) 8.3 H 8.6 H Baso % (Auto) 2.7 H 3.6 H Neut # (Auto) 7.5 7.2 Lymph # (Auto) 1.6 1.4 [place] # (Auto) 1.2 H 1.2 H Eos # (Auto) 1.0 H 1.0 H Baso # (Auto) 0.3 H 0.4 H WBC Differential Manual diff final Manual diff final Seg Neuts % (Manual) 56 66 Band Neuts % (Manual) 15 H 8 H Lymphocytes % (Manual) 7 L 13 Monocytes % (Manual) 8 6 Eosinophils % (Manual) 12 H 5 H Basophils % (Manual) 2 1 Myelocytes % (Man) 1 H Abs Neuts (Manual) 8.2 H 8.4 H Differential Comment . . Toxic Granulation 2+ H 1+ H Platelet Estimate Normal High H Platelet Morphology Normal Normal Ovalocytes 1+ H 1+ H Acanthocytes (Spur) Occ H Lab - Chemistry Results 05/04/18 05/04/18 05/05/18 17:28 19:55 08:00 Sodium 137 Potassium 3.3 L Chloride 104 Carbon Dioxide 25.5 Anion Gap 8 BUN 10 Creatinine 0.60 Estimated GFR Greater than 89 POC Glucose 145 H 182 H Random Glucose 127 H Calcium 7.7 L 05/05/18 05/05/18 05/05/18 08:06 11:48 16:59 Sodium Potassium Chloride Carbon Dioxide Anion Gap BUN Creatinine Estimated GFR POC Glucose 133 H 154 H 179 H Random Glucose Calcium 05/05/18 05/06/18 05/06/18 19:40 07:50 12:11 Sodium Potassium Chloride Carbon Dioxide Anion Gap BUN Creatinine Estimated GFR POC Glucose 208 H 131 H 151 H Random Glucose Calcium Imaging: ITS Impressions Head CT 04/11/18 11:59 CONCLUSION: 1. Stable appearance of the brain. . Ankle MRI 04/15/18 00:00 CONCLUSION: 1. Osteomyelitis of the posterior calcaneus with a near complete tear of the distal Achilles tendon. There is overlying cellulitis and subcutaneous edema with a small abscess adjacent to the distal Achilles tendon as measured above. There is edematous change on the plantar aspect of the foot with a tenosynovitis as above. No acute fracture identified. Mild bone edema tibia, nonspecific. Ankle X-Ray 04/15/18 00:00 CONCLUSION: Osteomyelitis of the posterior calcaneus with overlying soft tissue swelling and ulceration. No acute fracture. Femur MRI 04/25/18 00:00 CONCLUSION: 1. 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 The collection appears to communicate with the prosthetic component in the proximal femur. 2. Edematous changes are noted along the vastus lateralis and iliotibial band. Hip X-Ray 04/27/18 00:00 CONCLUSION: Hardware removal on the right. Abdomen/Pelvis CT 04/30/18 10:28 Review of bone windows reveals moderate degenerative changes in the lumbar spine and both SI joints. CONCLUSION: 1. Large bolus of stool in the rectum with stool throughout the colon suggesting constipation with possible impaction 2. Prominent gallbladder without stones 3. 2 nonobstructing stones in the left kidney. Physical Exam: GENERAL: awake and alert, not in respiratory distress. SKIN: Cool and dry. No generalized rash. EYES: [place] conjunctiva. No petechia or hemorrhage. No scleral icterus. No injection or drainage. EARS, NOSE AND THROAT: Mucous membranes pink and moist. No oral lesions noted. NECK: Trachea midline. Supple and not tender, no meningeal signs CARDIOVASCULAR: Regular rate and rhythm. No murmurs, rubs or gallops heard RESPIRATORY: Clear to auscultation. Breath sounds equal bilaterally. No rales , wheezing or rhonchi ABDOMEN: Soft, non-tender, nondistended. Bowel sounds present and normoactive. No guarding. No rebound. No organomegaly. EXTREMITIES: No clubbing, cyanosis, or edema. R foot - has dressing in place. Has some purplish areas on plantar aspect, dorsum of foot, and tip of big toe and second toe. Dressing R hip with bloody drainage NEURO: Awake and alert PSYCH: Cooperative LINE: No evidence of infection Assessment and Plan - Plan Impression Non-healing wound R heel/achilles area with abscess and osteo posterior calcaneus PVD S/P revascularization RLE 04/24 Infection R femur, has sinus tract on MRI, S/P RAZA, C/S MRSA GIB Leukocytosis, resolved Anemia Recommendation Continue IV Vanco - needs until Jun 07, 6 weeks after hardware removal for the R hip Continue Zerbaxa - for the heel ulcer and osteo SNF not taking patient at this time due to cost of Zerbaxa Monitor progress ?Reconsult podiatry and rediscuss issue of surgery Spoke with VANESA
[2018-05-06] MEDS ORDERED: Pharmacy Ordered Lab Info OTHER ONE (14:45)
[2018-05-06] MEDS: Vancomycin Inj 1,250 MG in Sodium Chlor 0.9% Inj 250 ML IV.SIG SCH (17:18)
[2018-05-07] MEDS: CEFTOLOZANE IV.SIG SCH ×3 (01:52→18:13)
[2018-05-07] MEDS: TAZOBACTAM IV.SIG SCH ×3 (01:52→18:13)
[2018-05-07] MEDS: SODIUM CHLOR 0.9% IV.SIG SCH ×3 (01:52→18:13)
[2018-05-07] MEDS: Levothyroxine 125 MCG Tablet PO SCH (05:05)
[2018-05-07 07:39] LABS: Baso # (Auto) 0.2 th/mm3 (0.0-0.2); Baso % (Auto) 2.4 % (0.0-2.0); Eos % (Auto) 9.6 % (0.0-4.0); Hematocrit 27.7 % (39.0-51.0); Lymph # (Auto) 1.3 th/mm3 (1.0-4.8); Lymph % (Auto) 12.6 % (9.0-44.0); Mean Corpuscular HGB Conc 32.4 % (32.0-36.0); Mean Corpuscular Hemoglobin 29.5 pg (27.0-34.0); Mean Platelet Volume 6.9 fL (7.0-11.0); Mono # (Auto) 1.2 th/mm3 (0.0-0.9); Mono % (Auto) 11.5 % (0.0-8.0); Neut # (Auto) 6.4 th/mm3 (1.8-7.7); Neut % (Auto) 63.9 % (16.0-70.0); Platelet Count 435 th/mm3 (150-450); Red Blood Count 3.04 mil/mm3 (4.50-5.90); Red Cell Distribution Width 20.1 % (11.6-17.2); White Blood Count 10.1 th/mm3 (4.0-11.0)
[2018-05-07 07:59] LABS: Anion Gap 8 meq/L (5-15); Blood Urea Nitrogen 10 mg/dL (7-18); Calcium 7.6 mg/dL (8.5-10.1); Carbon Dioxide 26.9 meq/L (21.0-32.0); Chloride 104 meq/L (98-107); Glomerular Filtration Rate Greater Than 89 mL/min (>89); Glucose,Random 118 mg/dL (74-106); Potassium 3.4 meq/L (3.5-5.1); Sodium 139 meq/L (136-145)
[2018-05-07 08:57] LABS: Eosinophils 8 % (0-4); Lymphocytes 4 % (9-44); Metamyelocytes 2 % (0-1); Monocytes 5 % (0-8); Myelocytes 1 % (0-0); Platelet Estimate Normal (Normal); Platelet Morphology Normal (Normal)
[2018-05-07] MEDS: Polyethylene Glycol 3350 17 GM Packet PO SCH (08:57)
[2018-05-07] MEDS: Gabapentin 300 MG Capsule PO SCH ×3 (08:58→18:13)
[2018-05-07] MEDS: Magnesium Oxide 400 MG Tablet PO SCH ×4 (08:58→21:49)
[2018-05-07] MEDS: Docusate Sodium 100 MG Capsule PO SCH ×2 (08:58→21:49)
[2018-05-07] MEDS: Ascorbic Acid 500 MG Tablet PO SCH ×2 (08:58→21:49)
[2018-05-07] MEDS: Ferrous Sulfate 325 MG Tablet PO SCH ×3 (08:58→18:13)
[2018-05-07] MEDS: Sodium Chloride 1 GM Tablet PO SCH ×3 (08:58→18:13)
[2018-05-07] MEDS: Potassium Phos/Sodium Phos 250 MG Tablet PO SCH ×4 (08:59→21:50)
[2018-05-07] MEDS: Amiodarone 200 MG Tablet PO SCH (08:59)
[2018-05-07] MEDS: Insulin NovoLOG Aspart Correctional Sugar Inj SQ SCH ×4 (09:00→22:04)
--- NOTE | 2018-05-07 10:10 | P.PNFP ---
Subjective Interval history: Patient seen and examined this morning. No acute events overnight. Denies any fever, chills, chest pain, shortness of breath, palpitations, dizziness, headaches, nausea, vomiting, abdominal pain. Patient was eating well and having good bowel movements. Discussed with pt that the only antibiotic to help contain his Right foot infection is zerbaxa and the long-term is not able to cover the expensive cost. He is still not interested in Right LE below the knee amputation as was recommended by podiatry. <Sakshi Garza D - 05/07/18 10:10> Results - Labs Result diagrams: 05/10/18 05:03 05/10/18 09:26 <Osmel Pagan R - 05/10/18 13:39> Abnormal lab results 05/09/18 05/09/18 05/10/18 Range/Units 17:41 22:03 05:03 WBC 11.2 H (4.0-11.0) th/mm3 RBC 3.18 L (4.50-5.90) mil/mm3 Hgb 9.3 L (13.0-17.0) gm/dL Hct 28.9 L (39.0-51.0) % RDW 20.9 H (11.6-17.2) % [place] % (Auto) 9.9 H (0.0-8.0) % Eos % (Auto) 10.3 H (0.0-4.0) % [place] # (Auto) 1.1 H (0.0-0.9) th/mm3 Eos # (Auto) 1.2 H (0.0-0.4) th/mm3 Sodium (136-145) meq/L POC Glucose 264 H 237 H (68-110) mg/dl Random Glucose (74-106) mg/dL Calcium (8.5-10.1) mg/dL Vancomycin Trough (5.0-10.0) mcg/mL 05/10/18 05/10/18 05/10/18 Range/Units 08:12 09:26 12:23 WBC (4.0-11.0) th/mm3 RBC (4.50-5.90) mil/mm3 Hgb (13.0-17.0) gm/dL Hct (39.0-51.0) % RDW (11.6-17.2) % [place] % (Auto) (0.0-8.0) % Eos % (Auto) (0.0-4.0) % [place] # (Auto) (0.0-0.9) th/mm3 Eos # (Auto) (0.0-0.4) th/mm3 Sodium 135 L (136-145) meq/L POC Glucose 140 H 154 H (68-110) mg/dl Random Glucose 133 H (74-106) mg/dL Calcium 8.2 L (8.5-10.1) mg/dL Vancomycin Trough 16.3 H (5.0-10.0) mcg/mL Short CBC 05/10/18 Range/Units 05:03 WBC 11.2 H (4.0-11.0) th/mm3 Hgb 9.3 L (13.0-17.0) gm/dL Hct 28.9 L (39.0-51.0) % Plt Count 445 (150-450) th/mm3 BMP 05/10/18 09:26 Sodium 135 L Potassium 4.5 Chloride 99 Carbon Dioxide 28.1 BUN 12 Creatinine 0.63 Calcium 8.2 L <Osmel Pagan R - 05/10/18 13:39> Abnormal lab results 05/06/18 05/06/18 05/06/18 Range/Units 12:11 15:55 17:02 RBC (4.50-5.90) mil/mm3 Hgb (13.0-17.0) gm/dL Hct (39.0-51.0) % RDW (11.6-17.2) % MPV (7.0-11.0) fL [place] % (Auto) (0.0-8.0) % Eos % (Auto) (0.0-4.0) % Baso % (Auto) (0.0-2.0) % [place] # (Auto) (0.0-0.9) th/mm3 Eos # (Auto) (0.0-0.4) th/mm3 Band Neuts % (Manual) (0-6) % Lymphocytes % (Manual) (9-44) % Eosinophils % (Manual) (0-4) % Basophils % (Manual) (0-2) % Metamyelocytes % (Man) (0-1) % Myelocytes % (Man) (0-0) % Abs Neuts (Manual) (1.8-7.7) th/mm3 Potassium (3.5-5.1) meq/L Creatinine (0.60-1.30) mg/dL POC Glucose 151 H 170 H (68-110) mg/dl Random Glucose (74-106) mg/dL Calcium (8.5-10.1) mg/dL Vancomycin Trough 10.2 H (5.0-10.0) mcg/mL 05/06/18 05/07/18 05/07/18 Range/Units 19:25 07:03 07:03 RBC 3.04 L (4.50-5.90) mil/mm3 Hgb 9.0 L (13.0-17.0) gm/dL Hct 27.7 L (39.0-51.0) % RDW 20.1 H (11.6-17.2) % MPV 6.9 L (7.0-11.0) fL [place] % (Auto) 11.5 H (0.0-8.0) % Eos % (Auto) 9.6 H (0.0-4.0) % Baso % (Auto) 2.4 H (0.0-2.0) % [place] # (Auto) 1.2 H (0.0-0.9) th/mm3 Eos # (Auto) 1.0 H (0.0-0.4) th/mm3 Band Neuts % (Manual) 9 H (0-6) % Lymphocytes % (Manual) 4 L (9-44) % Eosinophils % (Manual) 8 H (0-4) % Basophils % (Manual) 3 H (0-2) % Metamyelocytes % (Man) 2 H (0-1) % Myelocytes % (Man) 1 H (0-0) % Abs Neuts (Manual) 8.1 H (1.8-7.7) th/mm3 Potassium 3.4 L (3.5-5.1) meq/L Creatinine 0.55 L (0.60-1.30) mg/dL POC Glucose 176 H (68-110) mg/dl Random Glucose 118 H (74-106) mg/dL Calcium 7.6 L (8.5-10.1) mg/dL Vancomycin Trough (5.0-10.0) mcg/mL 05/07/18 Range/Units 08:08 RBC (4.50-5.90) mil/mm3 Hgb (13.0-17.0) gm/dL Hct (39.0-51.0) % RDW (11.6-17.2) % MPV (7.0-11.0) fL [place] % (Auto) (0.0-8.0) % Eos % (Auto) (0.0-4.0) % Baso % (Auto) (0.0-2.0) % [place] # (Auto) (0.0-0.9) th/mm3 Eos # (Auto) (0.0-0.4) th/mm3 Band Neuts % (Manual) (0-6) % Lymphocytes % (Manual) (9-44) % Eosinophils % (Manual) (0-4) % Basophils % (Manual) (0-2) % Metamyelocytes % (Man) (0-1) % Myelocytes % (Man) (0-0) % Abs Neuts (Manual) (1.8-7.7) th/mm3 Potassium (3.5-5.1) meq/L Creatinine (0.60-1.30) mg/dL POC Glucose 131 H (68-110) mg/dl Random Glucose (74-106) mg/dL Calcium (8.5-10.1) mg/dL Vancomycin Trough (5.0-10.0) mcg/mL Short CBC 05/07/18 Range/Units 07:03 WBC 10.1 (4.0-11.0) th/mm3 Hgb 9.0 L (13.0-17.0) gm/dL Hct 27.7 L (39.0-51.0) % Plt Count 435 (150-450) th/mm3 BMP 05/07/18 07:03 Sodium 139 Potassium 3.4 L Chloride 104 Carbon Dioxide 26.9 BUN 10 Creatinine 0.55 L Calcium 7.6 L <Sakshi Garza D - 05/07/18 10:10> Physical Exam Vital signs: Vital Signs 05/09/18 16:00 05/09/18 17:22 05/09/18 20:00 Temperature 97.8 F 98.2 F Pulse Rate 61 59 L Respiratory Rate 18 20 20 Blood Pressure 141/66 H 146/67 H Pulse Oximetry 98 96 05/10/18 00:00 05/10/18 04:00 05/10/18 07:00 Temperature 98.1 F 97.9 F Pulse Rate 60 65 63 Respiratory Rate 20 20 20 Blood Pressure 142/64 H 126/61 Pulse Oximetry 95 94 L 05/10/18 08:00 Temperature Pulse Rate 67 Respiratory Rate Blood Pressure Pulse Oximetry Intake & Output 05/09/18 05/10/18 05/10/18 18:59 06:59 18:59 Intake Total 1442.5 / 1442.5 321 / 321 362.5 / 362.5 Output Total 2425 / 2425 1999 Balance -982.5 / -982.5 -1679 / -1679 362.5 / 362.5 Weight 83.4 kg Intake: IV 462.5 / 462.5 100 / 100 362.5 / 362.5 Zerbaxa Inj 1,500 MG In NS Inj 200 / 200 100 / 100 100 / 100 100 ML @ 100 mls/hr IV.SIG Q8H [facility] Rx#:[id number] Vancomycin Inj 1,250 MG In NS 262.5 / 262.5 262.5 / 262.5 Inj 250 ML @ 262.5 mls/hr IV. SIG Q18H [facility] Rx#:[id number] Oral 980 / 980 221 / 221 Output: Urine 425 / 425 1999 Urine Amount (Catheter) 1999 Condom 1999 Other: Date of Last Bowel Movement 05/09/18 05/09/18 # Bowel Movements 0 <Osmel Pagan R - 05/10/18 13:39> Vital Signs 05/06/18 12:00 05/06/18 16:00 05/06/18 20:00 Temperature 97.2 F L 97.9 F 98.1 F Pulse Rate 62 62 60 Respiratory Rate 18 18 16 Blood Pressure 134/64 116/58 L 117/55 L Pulse Oximetry 98 98 94 L 05/07/18 00:00 05/07/18 04:00 05/07/18 08:00 Temperature 98.3 F 97.7 F 98.1 F Pulse Rate 53 L 56 L 59 L Respiratory Rate 17 17 18 Blood Pressure 150/65 H 141/65 H 152/69 H Pulse Oximetry 94 L 94 L 95 05/07/18 09:02 Temperature Pulse Rate Respiratory Rate 18 Blood Pressure Pulse Oximetry Intake & Output 05/06/18 05/07/18 05/07/18 18:59 06:59 18:59 Intake Total 800 / 800 340 / 340 Output Total 1000 / 1000 950 / 950 Balance -200 / -200 -610 / -610 Weight 83.8 kg Intake: IV 200 / 200 100 / 100 Zerbaxa Inj 1,500 MG In NS Inj 200 / 200 100 / 100 100 ML @ 100 mls/hr IV.SIG Q8H [facility] Rx#:[id number] Oral 600 / 600 240 / 240 Output: Urine 1000 / 1000 950 / 950 Other: Date of Last Bowel Movement 05/04/18 05/04/18 # Bowel Movements 2 <Sakshi Garza - 05/07/18 10:10> Narrative: GENERAL: Pleasant elderly male thin, appears malnourished. Alert to person and place but not time. SKIN: Cool and dry. No generalized rash. Has some scattered ecchymoses in his UE. HEAD: Atraumatic. Normocephalic. No temporal wasting, or tenderness. EYES: Anisocoria and left eye, EOMI CARDIOVASCULAR: Regular rate and rhythm. No murmurs, rubs or gallops heard RESPIRATORY: Clear to auscultation. Breath sounds equal bilaterally. No rales , wheezing or rhonchi ABDOMEN: Soft, non-tender, nondistended. No guarding. No rebound. No organomegaly. EXTREMITIES: No edema. Atrophic muscular changes in both legs bilaterally. Right heel covered in bandage. Left foot bandage dry and clean. Patient also has wound on right thigh that is bandaged. Dressing in place,with some serious sanguinous drainage. Dressing removed and wound has some serious sanguinous oozing no erythema surrounding the incision, healing well. Patient able to move toes bilaterally and no decreased sensation. Weak pulse palpated on right popliteal artery. <Sakshi Garza - 05/07/18 10:10> - Urinary Catheter Management Condom Cath placed during this visit: no <Osmel Pagan R - 05/10/18 13:39> no <Sakshi Garza D - 05/07/18 10:10> Reason for continuing: Not indwelling catheter <Sakshi Garza - 05/07/18 10: 10> Indwelling Urethral Catheter Cath placed during this visit: no <AdolphOsmel bernardo R - 05/10/18 13:39> yes, but has since been removed by the nurse <Calzado,Sakshi D - 05/07/18 10:10> Reason for continuing: Not indwelling catheter <Calzado,Sakshi D - 05/07/18 10: 10> Insertion date: 04/11/18 <Calzado,Sakshi D - 05/07/18 10:10> Insertion time: 21:08 <Calzado,Sakshi D - 05/07/18 10:10> Removal date: 04/12/18 <Calzado,Sakshi D - 05/07/18 10:10> Removal time: 11:35 <Calzado,Sakshi D - 05/07/18 10:10> Straight Cath placed during this visit: no <AdolphOsmel bernardo R - 05/10/18 13:39> yes <Calzado,Sakshi D - 05/07/18 10:10> Reason for continuing: Other continuation reason <Calzado,Sakshi D - 05/07/18 10:10> Insertion date: 04/11/18 <Calzado,Sakshi D - 05/07/18 10:10> Insertion time: 21:08 <Calzado,Sakshi D - 05/07/18 10:10> Assessment and Plan - Assessment (1) Osteomyelitis of ankle Code(s): M86.9 - Osteomyelitis, unspecified Status: Acute (2) Anemia Code(s): D64.9 - Anemia, unspecified Status: Acute (3) Infection associated with internal hip prosthesis Code(s): T84.59XA - Infection and inflammatory reaction due to other internal joint prosthesis, initial encounter; Z96.649 - Presence of unspecified artificial hip joint Status: Acute (4) Chronic wound of extremity Status: Chronic (5) MRSA (methicillin resistant staph aureus) culture positive Code(s): Z22.322 - Carrier or suspected carrier of Methicillin resistant Staphylococcus aureus Status: Acute (6) PAD (peripheral artery disease) Code(s): I73.9 - Peripheral vascular disease, unspecified Status: Chronic (7) Bandemia Code(s): D72.825 - Bandemia Status: Resolved (8) Hydronephrosis Code(s): N13.30 - Unspecified hydronephrosis Status: Acute (9) HTN (hypertension) Code(s): I10 - Essential (primary) hypertension Status: Acute (10) Diabetes Code(s): E11.9 - Type 2 diabetes mellitus without complications Status: Acute (11) Malnutrition Code(s): E46 - Unspecified protein-calorie malnutrition Status: Acute (12) Anisocoria Code(s): H57.02 - Anisocoria Status: Acute (13) Nutrition, metabolism, and development symptoms Code(s): R63.8 - Other symptoms and signs concerning food and fluid intake Status: Acute <AdolphestelaevyOsmel R - 05/10/18 13:39> (1) Anemia Code(s): D64.9 - Anemia, unspecified Status: Acute Plan: On admission on 04/11 patient found to have hemoglobin of 6.6 and transfused 2 units of packed RBC. Also had tarry stools and underwent endoscopy and colonoscopy which were benign except small ulcer in the rectum. Placed on PPI and iron. H and H trended -04/29 Hbg 6.5 down from 7.5 -transfused one unit of PRBC repeat H/H 04/30 6.1 -Order for additional unit of PRBC and H/H. Repeat H/H 6.6. Two additional units ordered based on critical care physician recommendations -Transferred to ICU; once patient's hemoglobin improved and asymptomatic transferred back to the floor. -CT abdomen: two non obstructive kidney stones and some constipation -Consulted ortho: Bleeding possibly from femoral canal. During procedure box was not used because of patient's response to previous hardware. Dr. Muñoz stated that hemoglobin should stabilize and that the bleeding could continue for up to 2 weeks after the procedure. H/H stable -Continue to trend H/H (2) Osteomyelitis of ankle Code(s): M86.9 - Osteomyelitis, unspecified Status: Acute Plan: MRI showed evidence of osteomyelitis of right ankle which likely has been brewing for some time in this diabetic patient with PAD with chronic lower- extremity non-healing ulcers Culture positive for MRSA at different site (right thigh wound) Wound Cx of right ankle showed Pseudomonas as well as multidrug-resistant Proteus and group D enterococcus Blood cultures NGTD Afebrile Podiatry consulted, appreciate assistance; * plan for patient to have calcanectomy on 04/26 however due to patient's inability to recall presurgery discussion when seen by podiatry the morning of 04/26 Dr. Urena will no longer be performing calcanectomy procedure. * Recommends: betadine wet to dry daily and if foot/heel becomes acutely infected rec as patient is unable to care for himself or able to mentally process limb salvage procedure options. In addition, the likelihood of failure was already high due to the low vascularity to the right lower limb. * Podiatry has signed off. * Discussed option of below-knee amputation of right lower extremity and Patient still not interested Vascular surgery consulted * s/p [employer] of popliteal stenosis on 04/24 * Anterior tibial, posterior tibia and peritoneal artery occluded Lower extremity pulses appreciated Via Doppler. Right popliteal pulse appreciated on exam * ID consulted, appreciate recs * Continue vancomycin--until Jun 07, 6 weeks after hardware removal for the R hip * Continue Zebraxa--for the heel ulcer and osteo due to resistance of organisms * Patient would like another antibiotic rec than zabraxa in order for him to be able to be discharge to long-term * Wound care consulted, appreciate recs * See note from 04/25 * follow recommendations * Pain management with [place] scheduled, gabapentin, morphine for breakthrough pain (3) Infection associated with internal hip prosthesis Code(s): T84.59XA - Infection and inflammatory reaction due to other internal joint prosthesis, initial encounter; Z96.649 - Presence of unspecified artificial hip joint Status: Acute Plan: Wound care noted patient's right hip wound to be more purulent and fluctuant on 04/25 Right femur MRI was ordered and results showed: -Osseous cutaneous fistulous tract extending from the greater trochanter to the skin surface with small subcutaneous fluid collection identified. The collection appears to communicate with the prosthetic component in the proximal femur. -. Edematous changes are noted along the vastus lateralis and iliotibial band. -Patient spiked fever on 04/28: BCX no growth to date Follow wound care recommendations for care Orthopedic consultation: 04/27 irrigation and debridement with hardware removal and placement of antibiotic beads Recommendation: "TTWB RLE and Dressing changes daily and as needed. Incisions will have drainage for likely several days to even couple of weeks as antibiotic beads were placed along with removal of hardware and debridement of the femur leaving an open femoral canal. This should slowly stop over several days to weeks. Dressing changes as needed.Antibiotics per ID for chronic osteomyelitis. Plan for patient to follow-up in my office in 2 weeks" Right hip wound healing well (4) Chronic wound of extremity Status: Chronic Plan: Patient currently follows up with wound care as an outpatient Right hip wound, super observant dressing daily Skin tear lower left extremity, Santyl covered and dry dressing daily Right heel wound, apply gentamicin cream twice daily, see above plan for associated osteomyelitis Wound care consulted, appreciate recommendations * Cleanse wound to R Achilles heel with normal saline only and pat dry. Apply gentamicin mixed with Santyl 50/ 50 and apply to wound bed * Cover with ABD pad, and secure with rolled gauze and tape. Change dressing daily, until seen by podiatry. * Cleanse wound to R hip see updated note from 04/25 and follow ortho rec for dressing * Cleanse wound to L posterior lower leg with normal saline and pat dry. Apply optifoam gentle 4x4 dressing change dressing every 3 days or PRN if saturated or dislodged. * Sacral wound: -Please cleanse sacral area gently with Remedy barrier wipes and pat dry. Apply Cavilon skin barrier film spray to sacral area BID and PRN and leave open to air. -Turn and reposition patient every 2 hours from L to R side limiting time spent on back to P.T. and meals -Patient placed on low airloss bed/ mattress -Will try to get in contact with wound care for re-evaluation of sacral wound (5) MRSA (methicillin resistant staph aureus) culture positive Code(s): Z22.322 - Carrier or suspected carrier of Methicillin resistant Staphylococcus aureus Status: Acute Plan: This patient suffers from chronic nonhealing wounds likely secondary to peripheral arterial disease and DM. Patient had wound from right thigh cultured which ultimately grew MRSA. -Monitor for fevers and signs of systemic illness -Antibiotic therapy as above (6) PAD (peripheral artery disease) Code(s): I73.9 - Peripheral vascular disease, unspecified Status: Chronic Plan: s/p recent right LE arterectomy. s/p vascular procedure as above on 04/24 (7) Bandemia Code(s): D72.825 - Bandemia Status: Resolved Plan: Resolved, likely due to osteomyelitis. See above plan. (8) Hydronephrosis Code(s): N13.30 - Unspecified hydronephrosis Status: Acute Plan: Abdominal pelvis CT demonstrates development of moderate left hydronephrosis and hydroureter without ureteral obstruction. Also demonstrates stool ball in the rectum large amount of stool throughout the colon. Patient had a bladder scan 04/11 that revealed of a residual volume of 231 mL. Patient currently voiding well. Patient has no CVA tenderness. Hammer in place UA on 04/26 : negative for infection - Continue to monitor I's and O's. (9) HTN (hypertension) Code(s): I10 - Essential (primary) hypertension Status: Acute Plan: Continue Cardizem and amiodarone (10) Diabetes Code(s): E11.9 - Type 2 diabetes mellitus without complications Status: Acute Plan: Held home glipizide, Januvia Accu-Cheks Low-dose sliding scale Hypoglycemia protocol in place (11) Malnutrition Code(s): E46 - Unspecified protein-calorie malnutrition Status: Acute Plan: This patient appears thin and possibly malnourished. Patient has significant muscle atrophy in arms and legs that are partially consistent with age and lack of activity. -Begin diet supplementation with Ensure (12) Anisocoria Code(s): H57.02 - Anisocoria Status: Acute Plan: Most likely chronic in view of no other alarming ophthalmologic signs/symptoms Can follow up with Ophthalmology outpatient (13) Nutrition, metabolism, and development symptoms Code(s): R63.8 - Other symptoms and signs concerning food and fluid intake Status: Acute Plan: Fluids: per PO Diet: Diabetic supplements with protein shake Electrolytes: monitor and replete as needed DVT prophylaxis: Contraindicated due to upper GI bleed Disposition: SNF not taking patient at this time due to cost of Zerbaxa. <Sakshi Garza - 05/07/18 09:57> - Attending Attestation This patient was seen and examined. The assessment and plan was discussed with the resident physician and I am in agreement with continued medical care as documented in this encounter. OSMEL PAGAN MD <Osmel Pagan - 05/10/18 13:39> <Calzado,Sakshi D - Last Filed: 05/07/18 09:57> (2) Osteomyelitis of ankle Qualifiers: Osteomyelitis type: other chronic Laterality: right Qualified Code(s): M86.671 - Other chronic osteomyelitis, right ankle and foot (8) Hydronephrosis Qualifiers: Hydronephrosis type: unspecified Qualified Code(s): N13.30 - Unspecified hydronephrosis <Osmel Pagan - Last Filed: 05/10/18 13:39> (1) Osteomyelitis of ankle Qualifiers: Osteomyelitis type: other chronic Laterality: right Qualified Code(s): M86.671 - Other chronic osteomyelitis, right ankle and foot (8) Hydronephrosis Qualifiers: Hydronephrosis type: unspecified Qualified Code(s): N13.30 - Unspecified hydronephrosis <Calzado,Sakshi D - Last Filed: 05/07/18 09:57> (2) Osteomyelitis of ankle Qualifiers: Osteomyelitis type: other chronic Laterality: right Qualified Code(s): M86.671 - Other chronic osteomyelitis, right ankle and foot (8) Hydronephrosis Qualifiers: Hydronephrosis type: unspecified Qualified Code(s): N13.30 - Unspecified hydronephrosis <Osmel Pagan - Last Filed: 05/10/18 13:39> (1) Osteomyelitis of ankle Qualifiers: Osteomyelitis type: other chronic Laterality: right Qualified Code(s): M86.671 - Other chronic osteomyelitis, right ankle and foot (8) Hydronephrosis Qualifiers: Hydronephrosis type: unspecified Qualified Code(s): N13.30 - Unspecified hydronephrosis
[2018-05-07] MEDS: Vancomycin Inj 1,250 MG in Sodium Chlor 0.9% Inj 250 ML IV.SIG SCH (10:12)
[2018-05-07] MEDS: Gentamicin 0.1% Cream 15 GM Cream TOPICAL SCH ×2 (18:12→21:50)
[2018-05-07] MEDS: Collagenase Oint 30 GM Tube TOPICAL SCH (18:12)
[2018-05-08] MEDS: CEFTOLOZANE IV.SIG SCH ×3 (01:36→16:23)
[2018-05-08] MEDS: SODIUM CHLOR 0.9% IV.SIG SCH ×3 (01:36→16:23)
[2018-05-08] MEDS: TAZOBACTAM IV.SIG SCH ×3 (01:36→16:23)
[2018-05-08] MEDS: Vancomycin Inj 1,250 MG in Sodium Chlor 0.9% Inj 250 ML IV.SIG SCH ×2 (03:07→22:44)
[2018-05-08] MEDS: Levothyroxine 125 MCG Tablet PO SCH (06:17)
[2018-05-08 06:22] LABS: Baso # (Auto) 0.1 th/mm3 (0.0-0.2); Baso % (Auto) 1.1 % (0.0-2.0); Eos # (Auto) 0.9 th/mm3 (0.0-0.4); Hematocrit 27.9 % (39.0-51.0); Hemoglobin 9.2 gm/dL (13.0-17.0); Lymph # (Auto) 1.4 th/mm3 (1.0-4.8); Lymph % (Auto) 13.3 % (9.0-44.0); Mean Corpuscular HGB Conc 32.9 % (32.0-36.0); Mean Corpuscular Hemoglobin 30.1 pg (27.0-34.0); Mean Corpuscular Volume 91.6 fL (80.0-100.0); Mean Platelet Volume 6.7 fL (7.0-11.0); Mono # (Auto) 1.1 th/mm3 (0.0-0.9); Mono % (Auto) 10.9 % (0.0-8.0); Neut # (Auto) 6.9 th/mm3 (1.8-7.7); Neut % (Auto) 65.7 % (16.0-70.0); Platelet Count 462 th/mm3 (150-450); Red Blood Count 3.04 mil/mm3 (4.50-5.90); Red Cell Distribution Width 20.7 % (11.6-17.2); White Blood Count 10.5 th/mm3 (4.0-11.0)
[2018-05-08 06:42] LABS: Anion Gap 9 meq/L (5-15); Blood Urea Nitrogen 11 mg/dL (7-18); Calcium 7.8 mg/dL (8.5-10.1); Carbon Dioxide 27.2 meq/L (21.0-32.0); Chloride 102 meq/L (98-107); Glomerular Filtration Rate Greater Than 89 mL/min (>89); Glucose,Random 131 mg/dL (74-106); Potassium 3.5 meq/L (3.5-5.1); Sodium 138 meq/L (136-145)
[2018-05-08] MEDS: Insulin NovoLOG Aspart Correctional Sugar Inj SQ SCH ×4 (07:50→22:39)
[2018-05-08 08:12] LABS: Eosinophils 5 % (0-4); Lymphocytes 15 % (9-44); Metamyelocytes 1 % (0-1); Monocytes 9 % (0-8); Myelocytes 1 % (0-0); Toxic Granulation 1+
[2018-05-08 08:13] LABS: Platelet Morphology Normal (Normal)
[2018-05-08] MEDS: Polyethylene Glycol 3350 17 GM Packet PO SCH (08:18)
[2018-05-08] MEDS: Docusate Sodium 100 MG Capsule PO SCH ×2 (08:18→22:44)
[2018-05-08] MEDS: Gabapentin 300 MG Capsule PO SCH ×3 (08:19→17:57)
[2018-05-08] MEDS: Potassium Phos/Sodium Phos 250 MG Tablet PO SCH ×4 (08:19→22:38)
[2018-05-08] MEDS: Amiodarone 200 MG Tablet PO SCH (08:19)
[2018-05-08] MEDS: Ferrous Sulfate 325 MG Tablet PO SCH ×3 (08:19→17:56)
[2018-05-08] MEDS: Sodium Chloride 1 GM Tablet PO SCH ×3 (08:19→17:56)
[2018-05-08] MEDS: Ascorbic Acid 500 MG Tablet PO SCH ×2 (08:19→22:39)
[2018-05-08] MEDS: Magnesium Oxide 400 MG Tablet PO SCH ×4 (08:19→22:38)
--- NOTE | 2018-05-08 08:19 | P.PNFP ---
Subjective Interval history: Patient slept well overnight. Said pain of right leg tolerable. Denies any chest pain, shortness of breath, or dizziness. He is excited to watch football today. <KennethTamiko C - 05/08/18 08:19> Results - Labs Result diagrams: 05/10/18 05:03 05/10/18 09:26 <RuthOsmel R - 05/10/18 13:44> Abnormal lab results 05/09/18 05/09/18 05/10/18 Range/Units 17:41 22:03 05:03 WBC 11.2 H (4.0-11.0) th/mm3 RBC 3.18 L (4.50-5.90) mil/mm3 Hgb 9.3 L (13.0-17.0) gm/dL Hct 28.9 L (39.0-51.0) % RDW 20.9 H (11.6-17.2) % [place] % (Auto) 9.9 H (0.0-8.0) % Eos % (Auto) 10.3 H (0.0-4.0) % [place] # (Auto) 1.1 H (0.0-0.9) th/mm3 Eos # (Auto) 1.2 H (0.0-0.4) th/mm3 Sodium (136-145) meq/L POC Glucose 264 H 237 H (68-110) mg/dl Random Glucose (74-106) mg/dL Calcium (8.5-10.1) mg/dL Vancomycin Trough (5.0-10.0) mcg/mL 05/10/18 05/10/18 05/10/18 Range/Units 08:12 09:26 12:23 WBC (4.0-11.0) th/mm3 RBC (4.50-5.90) mil/mm3 Hgb (13.0-17.0) gm/dL Hct (39.0-51.0) % RDW (11.6-17.2) % [place] % (Auto) (0.0-8.0) % Eos % (Auto) (0.0-4.0) % [place] # (Auto) (0.0-0.9) th/mm3 Eos # (Auto) (0.0-0.4) th/mm3 Sodium 135 L (136-145) meq/L POC Glucose 140 H 154 H (68-110) mg/dl Random Glucose 133 H (74-106) mg/dL Calcium 8.2 L (8.5-10.1) mg/dL Vancomycin Trough 16.3 H (5.0-10.0) mcg/mL Short CBC 05/10/18 Range/Units 05:03 WBC 11.2 H (4.0-11.0) th/mm3 Hgb 9.3 L (13.0-17.0) gm/dL Hct 28.9 L (39.0-51.0) % Plt Count 445 (150-450) th/mm3 BMP 05/10/18 09:26 Sodium 135 L Potassium 4.5 Chloride 99 Carbon Dioxide 28.1 BUN 12 Creatinine 0.63 Calcium 8.2 L <Osmel Pagan R - 05/10/18 13:44> Abnormal lab results 05/07/18 05/07/18 05/07/18 Range/Units 07:03 08:08 18:07 RBC (4.50-5.90) mil/mm3 Hgb (13.0-17.0) gm/dL Hct (39.0-51.0) % RDW (11.6-17.2) % Plt Count (150-450) th/mm3 MPV (7.0-11.0) fL [place] % (Auto) (0.0-8.0) % Eos % (Auto) (0.0-4.0) % [place] # (Auto) (0.0-0.9) th/mm3 Eos # (Auto) (0.0-0.4) th/mm3 Band Neuts % (Manual) 9 H (0-6) % Lymphocytes % (Manual) 4 L (9-44) % Monocytes % (Manual) (0-8) % Eosinophils % (Manual) 8 H (0-4) % Basophils % (Manual) 3 H (0-2) % Metamyelocytes % (Man) 2 H (0-1) % Myelocytes % (Man) 1 H (0-0) % Abs Neuts (Manual) 8.1 H (1.8-7.7) th/mm3 Toxic Granulation (None) Platelet Estimate (Normal) POC Glucose 131 H 169 H (68-110) mg/dl Random Glucose (74-106) mg/dL Calcium (8.5-10.1) mg/dL 05/07/18 05/08/18 05/08/18 Range/Units 21:48 05:55 05:55 RBC 3.04 L (4.50-5.90) mil/mm3 Hgb 9.2 L (13.0-17.0) gm/dL Hct 27.9 L (39.0-51.0) % RDW 20.7 H (11.6-17.2) % Plt Count 462 H (150-450) th/mm3 MPV 6.7 L (7.0-11.0) fL [place] % (Auto) 10.9 H (0.0-8.0) % Eos % (Auto) 9.0 H (0.0-4.0) % [place] # (Auto) 1.1 H (0.0-0.9) th/mm3 Eos # (Auto) 0.9 H (0.0-0.4) th/mm3 Band Neuts % (Manual) (0-6) % Lymphocytes % (Manual) (9-44) % Monocytes % (Manual) 9 H (0-8) % Eosinophils % (Manual) 5 H (0-4) % Basophils % (Manual) (0-2) % Metamyelocytes % (Man) (0-1) % Myelocytes % (Man) 1 H (0-0) % Abs Neuts (Manual) (1.8-7.7) th/mm3 Toxic Granulation 1+ H (None) Platelet Estimate High H (Normal) POC Glucose 187 H (68-110) mg/dl Random Glucose 131 H (74-106) mg/dL Calcium 7.8 L (8.5-10.1) mg/dL 05/08/18 Range/Units 07:43 RBC (4.50-5.90) mil/mm3 Hgb (13.0-17.0) gm/dL Hct (39.0-51.0) % RDW (11.6-17.2) % Plt Count (150-450) th/mm3 MPV (7.0-11.0) fL [place] % (Auto) (0.0-8.0) % Eos % (Auto) (0.0-4.0) % [place] # (Auto) (0.0-0.9) th/mm3 Eos # (Auto) (0.0-0.4) th/mm3 Band Neuts % (Manual) (0-6) % Lymphocytes % (Manual) (9-44) % Monocytes % (Manual) (0-8) % Eosinophils % (Manual) (0-4) % Basophils % (Manual) (0-2) % Metamyelocytes % (Man) (0-1) % Myelocytes % (Man) (0-0) % Abs Neuts (Manual) (1.8-7.7) th/mm3 Toxic Granulation (None) Platelet Estimate (Normal) POC Glucose 138 H (68-110) mg/dl Random Glucose (74-106) mg/dL Calcium (8.5-10.1) mg/dL Short CBC 05/08/18 Range/Units 05:55 WBC 10.5 (4.0-11.0) th/mm3 Hgb 9.2 L (13.0-17.0) gm/dL Hct 27.9 L (39.0-51.0) % Plt Count 462 H (150-450) th/mm3 BMP 05/08/18 05:55 Sodium 138 Potassium 3.5 Chloride 102 Carbon Dioxide 27.2 BUN 11 Creatinine 0.61 Calcium 7.8 L <Tamiko Cooper - 05/08/18 08:19> Physical Exam Vital signs: Vital Signs 05/09/18 16:00 05/09/18 17:22 05/09/18 20:00 Temperature 97.8 F 98.2 F Pulse Rate 61 59 L Respiratory Rate 18 20 20 Blood Pressure 141/66 H 146/67 H Pulse Oximetry 98 96 05/10/18 00:00 05/10/18 04:00 05/10/18 07:00 Temperature 98.1 F 97.9 F Pulse Rate 60 65 63 Respiratory Rate 20 20 20 Blood Pressure 142/64 H 126/61 Pulse Oximetry 95 94 L 05/10/18 08:00 Temperature Pulse Rate 67 Respiratory Rate Blood Pressure Pulse Oximetry Intake & Output 05/09/18 05/10/18 05/10/18 18:59 06:59 18:59 Intake Total 1442.5 / 1442.5 321 / 321 362.5 / 362.5 Output Total 2425 / 2425 1999 Balance -982.5 / -982.5 -1679 / -1679 362.5 / 362.5 Weight 83.4 kg Intake: IV 462.5 / 462.5 100 / 100 362.5 / 362.5 Zerbaxa Inj 1,500 MG In NS Inj 200 / 200 100 / 100 100 / 100 100 ML @ 100 mls/hr IV.SIG Q8H [facility] Rx#:[id number] Vancomycin Inj 1,250 MG In NS 262.5 / 262.5 262.5 / 262.5 Inj 250 ML @ 262.5 mls/hr IV. SIG Q18H [facility] Rx#:[id number] Oral 980 / 980 221 / 221 Output: Urine 425 / 425 1999 Urine Amount (Catheter) 1999 Condom 1999 Other: Date of Last Bowel Movement 05/09/18 05/09/18 # Bowel Movements 0 <Osmel Pagan R - 05/10/18 13:44> Vital Signs 05/07/18 09:02 05/07/18 12:00 05/07/18 16:00 Temperature 97 F L 97 F L Pulse Rate 66 66 Respiratory Rate 18 18 18 Blood Pressure 156/69 H 145/61 H Pulse Oximetry 97 97 05/07/18 20:00 05/08/18 00:00 05/08/18 04:00 Temperature 97.7 F 97.6 F 97.8 F Pulse Rate 61 55 L 59 L Respiratory Rate 18 18 18 Blood Pressure 124/60 128/59 L 136/64 Pulse Oximetry 98 95 97 Intake & Output 05/07/18 05/08/18 05/08/18 18:59 06:59 18:59 Intake Total 1322.5 / 1322.5 1842.5 / 1842.5 Output Total 1300 / 1300 2100 / 2100 Balance 22.5 / 22.5 -257.5 / -257.5 Weight 83.8 kg Intake: IV 362.5 / 362.5 462.5 / 462.5 Zerbaxa Inj 1,500 MG In NS Inj 100 / 100 200 / 200 100 ML @ 100 mls/hr IV.SIG Q8H [facility] Rx#:[id number] Vancomycin Inj 1,250 MG In NS 262.5 / 262.5 262.5 / 262.5 Inj 250 ML @ 262.5 mls/hr IV. SIG Q18H [facility] Rx#:[id number] Oral 960 / 960 630 / 630 Anesthesia Amount 500 / 500 Other 250 / 250 Output: Urine 1300 / 1300 Estimated Blood Loss 150 / 150 Urine Amount (Catheter) 1950 / 1950 Condom 1350 / 1350 Indwelling Urethral Catheter 600 / 600 Other: # Incontinent Voids 0 Date of Last Bowel Movement 05/04/18 05/07/18 # Bowel Movements 0 0 # Incontinent Bowel Movements 1 <Tamiko Cooper 05/08/18 08:19> Narrative: GENERAL: Pleasant elderly male thin, appears malnourished. Alert to person and place but not time. SKIN: Cool and dry. No generalized rash. Has some scattered ecchymoses in his UE. HEAD: Atraumatic. Normocephalic. No temporal wasting, or tenderness. EYES: Anisocoria and left eye, EOMI CARDIOVASCULAR: Regular rate and rhythm. No murmurs, rubs or gallops heard RESPIRATORY: Clear to auscultation. Breath sounds equal bilaterally. No rales , wheezing or rhonchi ABDOMEN: Soft, non-tender, nondistended. No guarding. No rebound. No organomegaly. EXTREMITIES: No edema. Atrophic muscular changes in both legs bilaterally. Right heel covered in bandage. Left foot bandage dry and clean. Patient also has wound on right thigh that is bandaged. Dressing in place,with some serious sanguinous drainage. Dressing removed and wound has some serious sanguinous oozing no erythema surrounding the incision, healing well. Patient able to move toes bilaterally and no decreased sensation. <Tamiko Cooper 05/08/18 08:19> - Urinary Catheter Management Condom Cath placed during this visit: no <Osmel Pagan 05/10/18 13:44> no <Tamiko Cooper 05/08/18 08:19> Reason for continuing: Not indwelling catheter <Tamiko Cooper 05/08/18 08: 19> Indwelling Urethral Catheter Cath placed during this visit: no <Osmel Pagan 05/10/18 13:44> yes, but has since been removed by the nurse <Tamiko Cooper 05/08/18 08:19> Reason for continuing: Not indwelling catheter <Tamiko Cooper 05/08/18 08: 19> Insertion date: 04/11/18 <Tamiko Cooper 05/08/18 08:19> Insertion time: 21:08 <Tamiko Cooper 05/08/18 08:19> Removal date: 04/12/18 <Tamiko Cooper 05/08/18 08:19> Removal time: 11:35 <Tamiko Cooper 05/08/18 08:19> Straight Cath placed during this visit: no <Osmel Pagan R - 05/10/18 13:44> yes <Tamiko Cooper - 05/08/18 08:19> Reason for continuing: Other continuation reason <Tamiko Cooper 05/08/18 08:19> Insertion date: 04/11/18 <Tamiko Cooper 05/08/18 08:19> Insertion time: 21:08 <Tamiko Cooper 05/08/18 08:19> Assessment and Plan - Assessment (1) Osteomyelitis of ankle Code(s): M86.9 - Osteomyelitis, unspecified Status: Acute (2) Anemia Code(s): D64.9 - Anemia, unspecified Status: Acute (3) Infection associated with internal hip prosthesis Code(s): T84.59XA - Infection and inflammatory reaction due to other internal joint prosthesis, initial encounter; Z96.649 - Presence of unspecified artificial hip joint Status: Acute (4) Chronic wound of extremity Status: Chronic (5) MRSA (methicillin resistant staph aureus) culture positive Code(s): Z22.322 - Carrier or suspected carrier of Methicillin resistant Staphylococcus aureus Status: Acute (6) PAD (peripheral artery disease) Code(s): I73.9 - Peripheral vascular disease, unspecified Status: Chronic (7) Bandemia Code(s): D72.825 - Bandemia Status: Resolved (8) Hydronephrosis Code(s): N13.30 - Unspecified hydronephrosis Status: Acute (9) HTN (hypertension) Code(s): I10 - Essential (primary) hypertension Status: Acute (10) Diabetes Code(s): E11.9 - Type 2 diabetes mellitus without complications Status: Acute (11) Malnutrition Code(s): E46 - Unspecified protein-calorie malnutrition Status: Acute (12) Anisocoria Code(s): H57.02 - Anisocoria Status: Acute (13) Nutrition, metabolism, and development symptoms Code(s): R63.8 - Other symptoms and signs concerning food and fluid intake Status: Acute <Osmel Pagan - 05/10/18 13:44> (1) Osteomyelitis of ankle Code(s): M86.9 - Osteomyelitis, unspecified Status: Acute Plan: MRI showed evidence of osteomyelitis of right ankle which likely has been brewing for some time in this diabetic patient with PAD with chronic lower- extremity non-healing ulcers Culture positive for MRSA at different site (right thigh wound) Wound Cx of right ankle showed Pseudomonas as well as multidrug-resistant Proteus and group D enterococcus Blood cultures NGTD Afebrile Podiatry consulted, appreciate assistance; * plan for patient to have calcanectomy on 04/26 however due to patient's inability to recall presurgery discussion when seen by podiatry the morning of 04/26 Dr. Urena will no longer be performing calcanectomy procedure. * Recommends: betadine wet to dry daily and if foot/heel becomes acutely infected rec as patient is unable to care for himself or able to mentally process limb salvage procedure options. In addition, the likelihood of failure was already high due to the low vascularity to the right lower limb. * Podiatry has signed off. * Discussed option of below-knee amputation of right lower extremity and Patient still not interested Vascular surgery consulted * s/p [employer] of popliteal stenosis on 04/24 * Anterior tibial, posterior tibia and peritoneal artery occluded Lower extremity pulses appreciated Via Doppler. Right popliteal pulse appreciated on exam * ID consulted, appreciate recs * Continue vancomycin--until Jun 07, 6 weeks after hardware removal for the R hip * Continue Zebraxa--for the heel ulcer and osteo due to resistance of organisms * Patient would like another antibiotic rec than zabraxa in order for him to be able to be discharge to care home * Wound care consulted, appreciate recs * See note from 04/25 * follow recommendations * Pain management with [place] scheduled, gabapentin, morphine for breakthrough pain (2) Anemia Code(s): D64.9 - Anemia, unspecified Status: Acute Plan: On admission on 04/11 patient found to have hemoglobin of 6.6 and transfused 2 units of packed RBC. Also had tarry stools and underwent endoscopy and colonoscopy which were benign except small ulcer in the rectum. Placed on PPI and iron. H and H trended -04/29 Hbg 6.5 down from 7.5 -transfused one unit of PRBC repeat H/H 04/30 6.1 -Order for additional unit of PRBC and H/H. Repeat H/H 6.6. Two additional units ordered based on critical care physician recommendations -Transferred to ICU; once patient's hemoglobin improved and asymptomatic transferred back to the floor. -CT abdomen: two non obstructive kidney stones and some constipation -Consulted ortho: Bleeding possibly from femoral canal. During procedure box was not used because of patient's response to previous hardware. Dr. Muñoz stated that hemoglobin should stabilize and that the bleeding could continue for up to 2 weeks after the procedure. 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 The collection appears to communicate with the prosthetic component in the proximal femur. -. Edematous changes are noted along the vastus lateralis and iliotibial band. -Patient spiked fever on 04/28: BCX no growth to date Follow wound care recommendations for care Orthopedic consultation: 04/27 irrigation and debridement with hardware removal and placement of antibiotic beads Recommendation: "TTWB RLE and Dressing changes daily and as needed. Incisions will have drainage for likely several days to even couple of weeks as antibiotic beads were placed along with removal of hardware and debridement of the femur leaving an open femoral canal. This should slowly stop over several days to weeks. Dressing changes as needed.Antibiotics per ID for chronic osteomyelitis. Plan for patient to follow-up in my office in 2 weeks" Right hip wound healing well (4) Chronic wound of extremity Status: Chronic Plan: Patient currently follows up with wound care as an outpatient Right hip wound, super observant dressing daily Skin tear lower left extremity, Santyl covered and dry dressing daily Right heel wound, apply gentamicin cream twice daily, see above plan for associated osteomyelitis Wound care consulted, appreciate recommendations * Cleanse wound to R Achilles heel with normal saline only and pat dry. Apply gentamicin mixed with Santyl 50/ 50 and apply to wound bed * Cover with ABD pad, and secure with rolled gauze and tape. Change dressing daily, until seen by podiatry. * Cleanse wound to R hip see updated note from 04/25 and follow ortho rec for dressing * Cleanse wound to L posterior lower leg with normal saline and pat dry. Apply optifoam gentle 4x4 dressing change dressing every 3 days or PRN if saturated or dislodged. * Sacral wound: -Please cleanse sacral area gently with Remedy barrier wipes and pat dry. Apply Cavilon skin barrier film spray to sacral area BID and PRN and leave open to air. -Turn and reposition patient every 2 hours from L to R side limiting time spent on back to P.T. and meals -Patient placed on low airloss bed/ mattress -Will try to get in contact with wound care for re-evaluation of sacral wound (5) MRSA (methicillin resistant staph aureus) culture positive Code(s): Z22.322 - Carrier or suspected carrier of Methicillin resistant Staphylococcus aureus Status: Acute Plan: This patient suffers from chronic nonhealing wounds likely secondary to peripheral arterial disease and DM. Patient had wound from right thigh cultured which ultimately grew MRSA. -Monitor for fevers and signs of systemic illness -Antibiotic therapy as above (6) PAD (peripheral artery disease) Code(s): I73.9 - Peripheral vascular disease, unspecified Status: Chronic Plan: s/p recent right LE arterectomy. s/p vascular procedure as above on 04/24 (7) Bandemia Code(s): D72.825 - Bandemia Status: Resolved Plan: Resolved, likely due to osteomyelitis. See above plan. (8) Hydronephrosis Code(s): N13.30 - Unspecified hydronephrosis Status: Acute Plan: Abdominal pelvis CT demonstrates development of moderate left hydronephrosis and hydroureter without ureteral obstruction. Also demonstrates stool ball in the rectum large amount of stool throughout the colon. Patient had a bladder scan 04/11 that revealed of a residual volume of 231 mL. Patient currently voiding well. Patient has no CVA tenderness. Hammer in place UA on 04/26 : negative for infection - Continue to monitor I's and O's. (9) HTN (hypertension) Code(s): I10 - Essential (primary) hypertension Status: Acute Plan: Continue Cardizem and amiodarone (10) Diabetes Code(s): E11.9 - Type 2 diabetes mellitus without complications Status: Acute Plan: Held home glipizide, Januvia Accu-Cheks Low-dose sliding scale Hypoglycemia protocol in place (11) Malnutrition Code(s): E46 - Unspecified protein-calorie malnutrition Status: Acute Plan: This patient appears thin and possibly malnourished. Patient has significant muscle atrophy in arms and legs that are partially consistent with age and lack of activity. -Begin diet supplementation with Ensure (12) Anisocoria Code(s): H57.02 - Anisocoria Status: Acute Plan: Most likely chronic in view of no other alarming ophthalmologic signs/symptoms Can follow up with Ophthalmology outpatient (13) Nutrition, metabolism, and development symptoms Code(s): R63.8 - Other symptoms and signs concerning food and fluid intake Status: Acute Plan: Fluids: per PO Diet: Diabetic supplements with protein shake Electrolytes: monitor and replete as needed DVT prophylaxis: Contraindicated due to upper GI bleed Disposition: SNF not taking patient at this time due to cost of Zerbaxa. <Tamiko Cooper - 05/08/18 08:17> - Attending Attestation This patient was seen and examined. The assessment and plan was discussed with the resident physician and I am in agreement with continued medical care as documented in this encounter. OSMEL PAGAN MD <Osmel Pagan - 05/10/18 13:44> <Tamiko Cooper - Last Filed: 05/08/18 08:17> (1) Osteomyelitis of ankle Qualifiers: Osteomyelitis type: other chronic Laterality: right Qualified Code(s): M86.671 - Other chronic osteomyelitis, right ankle and foot (8) Hydronephrosis Qualifiers: Hydronephrosis type: unspecified Qualified Code(s): N13.30 - Unspecified hydronephrosis <Osmel Pagan R - Last Filed: 05/10/18 13:44> (1) Osteomyelitis of ankle Qualifiers: Osteomyelitis type: other chronic Laterality: right Qualified Code(s): M86.671 - Other chronic osteomyelitis, right ankle and foot (8) Hydronephrosis Qualifiers: Hydronephrosis type: unspecified Qualified Code(s): N13.30 - Unspecified hydronephrosis <Tamiko Cooper C - Last Filed: 05/08/18 08:17> (1) Osteomyelitis of ankle Qualifiers: Osteomyelitis type: other chronic Laterality: right Qualified Code(s): M86.671 - Other chronic osteomyelitis, right ankle and foot (8) Hydronephrosis Qualifiers: Hydronephrosis type: unspecified Qualified Code(s): N13.30 - Unspecified hydronephrosis <Osmel Pagan R - Last Filed: 05/10/18 13:44> (1) Osteomyelitis of ankle Qualifiers: Osteomyelitis type: other chronic Laterality: right Qualified Code(s): M86.671 - Other chronic osteomyelitis, right ankle and foot (8) Hydronephrosis Qualifiers: Hydronephrosis type: unspecified Qualified Code(s): N13.30 - Unspecified hydronephrosis
[2018-05-08] MEDS: Collagenase Oint 30 GM Tube TOPICAL SCH (08:21)
[2018-05-08] MEDS: Gentamicin 0.1% Cream 15 GM Cream TOPICAL SCH ×2 (08:21→22:44)
[2018-05-08] MEDS ORDERED: Pharmacy Ordered Lab Info OTHER ONE (20:45)
[2018-05-09] MEDS: TAZOBACTAM IV.SIG SCH ×3 (01:35→17:45)
[2018-05-09] MEDS: SODIUM CHLOR 0.9% IV.SIG SCH ×3 (01:35→17:45)
[2018-05-09] MEDS: CEFTOLOZANE IV.SIG SCH ×3 (01:35→17:45)
[2018-05-09] MEDS: Levothyroxine 125 MCG Tablet PO SCH (05:40)
[2018-05-09] MEDS: Gabapentin 300 MG Capsule PO SCH ×3 (08:56→17:43)
[2018-05-09] MEDS: Ascorbic Acid 500 MG Tablet PO SCH ×2 (08:56→21:32)
[2018-05-09] MEDS: Sodium Chloride 1 GM Tablet PO SCH ×3 (08:56→17:44)
[2018-05-09] MEDS: Amiodarone 200 MG Tablet PO SCH (08:57)
[2018-05-09] MEDS: Ferrous Sulfate 325 MG Tablet PO SCH ×3 (08:57→17:44)
[2018-05-09] MEDS: Docusate Sodium 100 MG Capsule PO SCH ×2 (08:57→21:32)
[2018-05-09] MEDS: Potassium Phos/Sodium Phos 250 MG Tablet PO SCH ×4 (08:57→21:32)
[2018-05-09] MEDS: Magnesium Oxide 400 MG Tablet PO SCH ×4 (08:58→21:32)
[2018-05-09] MEDS: Polyethylene Glycol 3350 17 GM Packet PO SCH (08:58)
[2018-05-09 08:59] LABS: Baso # (Auto) 0.2 th/mm3 (0.0-0.2); Eos % (Auto) 9.6 % (0.0-4.0); Hematocrit 28.1 % (39.0-51.0); Lymph # (Auto) 1.2 th/mm3 (1.0-4.8); Lymph % (Auto) 10.9 % (9.0-44.0); Mean Corpuscular HGB Conc 31.9 % (32.0-36.0); Mean Corpuscular Hemoglobin 29.3 pg (27.0-34.0); Mean Corpuscular Volume 91.8 fL (80.0-100.0); Mean Platelet Volume 6.8 fL (7.0-11.0); Mono # (Auto) 1.1 th/mm3 (0.0-0.9); Mono % (Auto) 10.7 % (0.0-8.0); Neut # (Auto) 7.1 th/mm3 (1.8-7.7); Neut % (Auto) 66.8 % (16.0-70.0); Platelet Count 453 th/mm3 (150-450); Red Blood Count 3.06 mil/mm3 (4.50-5.90); Red Cell Distribution Width 20.7 % (11.6-17.2); White Blood Count 10.7 th/mm3 (4.0-11.0)
[2018-05-09] MEDS: Gentamicin 0.1% Cream 15 GM Cream TOPICAL SCH ×2 (08:59→21:33)
[2018-05-09] MEDS: Collagenase Oint 30 GM Tube TOPICAL SCH (09:00)
[2018-05-09] MEDS: Insulin NovoLOG Aspart Correctional Sugar Inj SQ SCH ×4 (09:20→22:25)
--- NOTE | 2018-05-09 09:26 | P.PNFP ---
Subjective Interval history: No acute events overnight. Patient's pain is the same and tolerable for his right leg. Denies any other pain. Denies any chills, SOB, CP, or dizziness. <Tamiko Cooper C - 05/09/18 09:26> Results - Labs Result diagrams: 05/10/18 05:03 05/10/18 09:26 <Osmel Pagan - 05/10/18 13:50> Abnormal lab results 05/09/18 05/09/18 05/10/18 Range/Units 17:41 22:03 05:03 WBC 11.2 H (4.0-11.0) th/mm3 RBC 3.18 L (4.50-5.90) mil/mm3 Hgb 9.3 L (13.0-17.0) gm/dL Hct 28.9 L (39.0-51.0) % RDW 20.9 H (11.6-17.2) % Vernon % (Auto) 9.9 H (0.0-8.0) % Eos % (Auto) 10.3 H (0.0-4.0) % Vernon # (Auto) 1.1 H (0.0-0.9) th/mm3 Eos # (Auto) 1.2 H (0.0-0.4) th/mm3 Sodium (136-145) meq/L POC Glucose 264 H 237 H (68-110) mg/dl Random Glucose (74-106) mg/dL Calcium (8.5-10.1) mg/dL Vancomycin Trough (5.0-10.0) mcg/mL 05/10/18 05/10/18 05/10/18 Range/Units 08:12 09:26 12:23 WBC (4.0-11.0) th/mm3 RBC (4.50-5.90) mil/mm3 Hgb (13.0-17.0) gm/dL Hct (39.0-51.0) % RDW (11.6-17.2) % Vernon % (Auto) (0.0-8.0) % Eos % (Auto) (0.0-4.0) % Vernon # (Auto) (0.0-0.9) th/mm3 Eos # (Auto) (0.0-0.4) th/mm3 Sodium 135 L (136-145) meq/L POC Glucose 140 H 154 H (68-110) mg/dl Random Glucose 133 H (74-106) mg/dL Calcium 8.2 L (8.5-10.1) mg/dL Vancomycin Trough 16.3 H (5.0-10.0) mcg/mL Short CBC 05/10/18 Range/Units 05:03 WBC 11.2 H (4.0-11.0) th/mm3 Hgb 9.3 L (13.0-17.0) gm/dL Hct 28.9 L (39.0-51.0) % Plt Count 445 (150-450) th/mm3 BMP 05/10/18 09:26 Sodium 135 L Potassium 4.5 Chloride 99 Carbon Dioxide 28.1 BUN 12 Creatinine 0.63 Calcium 8.2 L <Osmel Pagan R - 05/10/18 13:50> Abnormal lab results 05/08/18 05/08/18 05/08/18 Range/Units 12:25 17:51 19:51 RBC (4.50-5.90) mil/mm3 Hgb (13.0-17.0) gm/dL Hct (39.0-51.0) % MCHC (32.0-36.0) % RDW (11.6-17.2) % Plt Count (150-450) th/mm3 MPV (7.0-11.0) fL Vernon % (Auto) (0.0-8.0) % Eos % (Auto) (0.0-4.0) % [place] # (Auto) (0.0-0.9) th/mm3 Eos # (Auto) (0.0-0.4) th/mm3 POC Glucose 169 H 146 H 137 H (68-110) mg/dl Vancomycin Trough (5.0-10.0) mcg/mL 05/08/18 05/09/18 05/09/18 Range/Units 21:46 08:18 08:56 RBC 3.06 L (4.50-5.90) mil/mm3 Hgb 9.0 L (13.0-17.0) gm/dL Hct 28.1 L (39.0-51.0) % MCHC 31.9 L (32.0-36.0) % RDW 20.7 H (11.6-17.2) % Plt Count 453 H (150-450) th/mm3 MPV 6.8 L (7.0-11.0) fL Vernon % (Auto) 10.7 H (0.0-8.0) % Eos % (Auto) 9.6 H (0.0-4.0) % Vernon # (Auto) 1.1 H (0.0-0.9) th/mm3 Eos # (Auto) 1.0 H (0.0-0.4) th/mm3 POC Glucose 166 H (68-110) mg/dl Vancomycin Trough 16.0 H (5.0-10.0) mcg/mL Short CBC 05/09/18 Range/Units 08:18 WBC 10.7 (4.0-11.0) th/mm3 Hgb 9.0 L (13.0-17.0) gm/dL Hct 28.1 L (39.0-51.0) % Plt Count 453 H (150-450) th/mm3 <Tamiko Cooper - 05/09/18 09:26> Physical Exam Vital signs: Vital Signs 05/09/18 16:00 05/09/18 17:22 05/09/18 20:00 Temperature 97.8 F 98.2 F Pulse Rate 61 59 L Respiratory Rate 18 20 20 Blood Pressure 141/66 H 146/67 H Pulse Oximetry 98 96 05/10/18 00:00 05/10/18 04:00 05/10/18 07:00 Temperature 98.1 F 97.9 F Pulse Rate 60 65 63 Respiratory Rate 20 20 20 Blood Pressure 142/64 H 126/61 Pulse Oximetry 95 94 L 05/10/18 08:00 Temperature Pulse Rate 67 Respiratory Rate Blood Pressure Pulse Oximetry Intake & Output 05/09/18 05/10/18 05/10/18 18:59 06:59 18:59 Intake Total 1442.5 / 1442.5 321 / 321 362.5 / 362.5 Output Total 2425 / 2425 1999 Balance -982.5 / -982.5 -1679 / -1679 362.5 / 362.5 Weight 83.4 kg Intake: IV 462.5 / 462.5 100 / 100 362.5 / 362.5 Zerbaxa Inj 1,500 MG In NS Inj 200 / 200 100 / 100 100 / 100 100 ML @ 100 mls/hr IV.SIG Q8H [facility] Rx#:[id number] Vancomycin Inj 1,250 MG In NS 262.5 / 262.5 262.5 / 262.5 Inj 250 ML @ 262.5 mls/hr IV. SIG Q18H ACE Rx#:[id number] Oral 980 / 980 221 / 221 Output: Urine 425 / 425 1999 Urine Amount (Catheter) 1999 Condom 1999 Other: Date of Last Bowel Movement 05/09/18 05/09/18 # Bowel Movements 0 <Osmel Pagan R - 05/10/18 13:50> Vital Signs 05/08/18 12:00 05/08/18 13:08 05/08/18 16:00 Temperature 97.7 F 97.9 F Pulse Rate 58 L 63 Respiratory Rate 18 0 L 18 Blood Pressure 119/65 109/61 Pulse Oximetry 98 97 05/08/18 20:00 05/08/18 23:41 05/09/18 00:00 Temperature 97.9 F 97.9 F Pulse Rate 61 59 L Respiratory Rate 19 19 18 Blood Pressure 148/74 H 157/71 H Pulse Oximetry 97 98 05/09/18 04:00 05/09/18 05:40 05/09/18 06:10 Temperature 97.8 F Pulse Rate 60 Respiratory Rate 18 19 19 Blood Pressure 144/66 H Pulse Oximetry 95 Intake & Output 05/08/18 05/09/18 05/09/18 18:59 06:59 18:59 Intake Total 640 / 640 1282.5 / 1282.5 Output Total 1100 / 1100 2200 / 2200 Balance -460 / -460 -917.5 / -917.5 Weight 83.7 kg Intake: IV 200 / 200 362.5 / 362.5 Zerbaxa Inj 1,500 MG In NS Inj 200 / 200 100 / 100 100 ML @ 100 mls/hr IV.SIG Q8H [facility] Rx#:[id number] Vancomycin Inj 1,250 MG In NS 262.5 / 262.5 Inj 250 ML @ 262.5 mls/hr IV. SIG Q18H ACE Rx#:[id number] Oral 440 / 440 920 / 920 Output: Urine 1100 / 1100 Urine Amount (Catheter) 2200 / 2200 Condom 2200 / 2200 Other: Date of Last Bowel Movement 05/09/18 # Bowel Movements 0 # Incontinent Bowel Movements 1 <Tamiko Cooper 05/09/18 09:26> Narrative: GENERAL: Pleasant elderly male thin, appears malnourished. Alert to person and place but not time. SKIN: Cool and dry. No generalized rash. Has some scattered ecchymoses in his UE. HEAD: Atraumatic. Normocephalic. No temporal wasting, or tenderness. EYES: Anisocoria and left eye, EOMI CARDIOVASCULAR: Regular rate and rhythm. No murmurs, rubs or gallops heard RESPIRATORY: Clear to auscultation. Breath sounds equal bilaterally. No rales , wheezing or rhonchi ABDOMEN: Soft, non-tender, nondistended. No guarding. No rebound. No organomegaly. EXTREMITIES: No edema. Atrophic muscular changes in both legs bilaterally. Right heel covered in bandage. Left foot bandage dry and clean. Patient also has wound on right thigh that is bandaged. Dressing in place,clean and dry. Dressing removed and wound minimal serious sanguinous oozing no erythema surrounding the incision, healing well. Patient able to move toes bilaterally and no decreased sensation. <Tamiko Cooper 05/09/18 09:26> - Urinary Catheter Management Condom Cath placed during this visit: no <Osmel Pagan R 05/10/18 13:50> no <Tamiko Cooper 05/09/18 09:26> Reason for continuing: Not indwelling catheter <Tamiko Cooper 05/09/18 09: 26> Indwelling Urethral Catheter Cath placed during this visit: no <Osmel Pagan 05/10/18 13:50> yes, but has since been removed by the nurse <Tamiko Cooper 05/09/18 09:26> Reason for continuing: Not indwelling catheter <Tamiko Cooper 05/09/18 09: 26> Insertion date: 04/11/18 <Tamiko Cooper 05/09/18 09:26> Insertion time: 21:08 <Tamiko Cooper 05/09/18 09:26> Removal date: 04/12/18 <Tamiko Cooper 05/09/18 09:26> Removal time: 11:35 <Tamiko Cooper 05/09/18 09:26> Straight Cath placed during this visit: no <Osmel Pagan 05/10/18 13:50> yes <Tamiko Cooper 05/09/18 09:26> Reason for continuing: Other continuation reason <Tamiko Cooper 05/09/18 09:26> Insertion date: 04/11/18 <Tamiko Cooper 05/09/18 09:26> Insertion time: 21:08 <Tamiko Cooper 05/09/18 09:26> Assessment and Plan - Assessment (1) Osteomyelitis of ankle Code(s): M86.9 - Osteomyelitis, unspecified Status: Acute (2) Anemia Code(s): D64.9 - Anemia, unspecified Status: Acute (3) Infection associated with internal hip prosthesis Code(s): T84.59XA - Infection and inflammatory reaction due to other internal joint prosthesis, initial encounter; Z96.649 - Presence of unspecified artificial hip joint Status: Acute (4) Chronic wound of extremity Status: Chronic (5) MRSA (methicillin resistant staph aureus) culture positive Code(s): Z22.322 - Carrier or suspected carrier of Methicillin resistant Staphylococcus aureus Status: Acute (6) PAD (peripheral artery disease) Code(s): I73.9 - Peripheral vascular disease, unspecified Status: Chronic (7) Bandemia Code(s): D72.825 - Bandemia Status: Resolved (8) Hydronephrosis Code(s): N13.30 - Unspecified hydronephrosis Status: Acute (9) HTN (hypertension) Code(s): I10 - Essential (primary) hypertension Status: Acute (10) Diabetes Code(s): E11.9 - Type 2 diabetes mellitus without complications Status: Acute (11) Malnutrition Code(s): E46 - Unspecified protein-calorie malnutrition Status: Acute (12) Anisocoria Code(s): H57.02 - Anisocoria Status: Acute (13) Nutrition, metabolism, and development symptoms Code(s): R63.8 - Other symptoms and signs concerning food and fluid intake Status: Acute <AdolphestelaLatosha ratliffil Yola 05/10/18 13:50> (1) Osteomyelitis of ankle Code(s): M86.9 - Osteomyelitis, unspecified Status: Acute Plan: MRI showed evidence of osteomyelitis of right ankle which likely has been brewing for some time in this diabetic patient with PAD with chronic lower- extremity non-healing ulcers Culture positive for MRSA at different site (right thigh wound) Wound Cx of right ankle showed Pseudomonas as well as multidrug-resistant Proteus and group D enterococcus Blood cultures NGTD Afebrile Podiatry consulted, appreciate assistance; * plan for patient to have calcanectomy on 04/26 however due to patient's inability to recall presurgery discussion when seen by podiatry the morning of 04/26 Dr. Urena will no longer be performing calcanectomy procedure. * Recommends: betadine wet to dry daily and if foot/heel becomes acutely infected rec as patient is unable to care for himself or able to mentally process limb salvage procedure options. In addition, the likelihood of failure was already high due to the low vascularity to the right lower limb. * Podiatry has signed off. * Discussed option of below-knee amputation of right lower extremity and Patient still not interested Vascular surgery consulted * s/p PHYSICIAN/ALLERGY/IMMUNOLOGY of popliteal stenosis on 04/24 * Anterior tibial, posterior tibia and peritoneal artery occluded Lower extremity pulses appreciated Via Doppler. Right popliteal pulse appreciated on exam * ID consulted, appreciate recs * Continue vancomycin--until Jun 07, 6 weeks after hardware removal for the R hip * Continue Zebraxa--for the heel ulcer and osteo due to resistance of organisms * Patient would like another antibiotic rec than zabraxa in order for him to be able to be discharge to intermediate * Wound care consulted, appreciate recs * See note from 04/25 * follow recommendations * Pain management with [place] scheduled, gabapentin, morphine for breakthrough pain (2) Anemia Code(s): D64.9 - Anemia, unspecified Status: Acute Plan: On admission on 04/11 patient found to have hemoglobin of 6.6 and transfused 2 units of packed RBC. Also had tarry stools and underwent endoscopy and colonoscopy which were benign except small ulcer in the rectum. Placed on PPI and iron. H and H trended -04/29 Hbg 6.5 down from 7.5 -transfused one unit of PRBC repeat H/H 04/30 6.1 -Order for additional unit of PRBC and H/H. Repeat H/H 6.6. Two additional units ordered based on critical care physician recommendations -Transferred to ICU; once patient's hemoglobin improved and asymptomatic transferred back to the floor. -CT abdomen: two non obstructive kidney stones and some constipation -Consulted ortho: Bleeding possibly from femoral canal. During procedure box was not used because of patient's response to previous hardware. Dr. Muñoz stated that hemoglobin should stabilize and that the bleeding could continue for up to 2 weeks after the procedure. 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 The collection appears to communicate with the prosthetic component in the proximal femur. -. Edematous changes are noted along the vastus lateralis and iliotibial band. -Patient spiked fever on 04/28: BCX no growth to date Follow wound care recommendations for care Orthopedic consultation: 04/27 irrigation and debridement with hardware removal and placement of antibiotic beads Recommendation: "TTWB RLE and Dressing changes daily and as needed. Incisions will have drainage for likely several days to even couple of weeks as antibiotic beads were placed along with removal of hardware and debridement of the femur leaving an open femoral canal. This should slowly stop over several days to weeks. Dressing changes as needed.Antibiotics per ID for chronic osteomyelitis. Plan for patient to follow-up in my office in 2 weeks" Right hip wound healing well (4) Chronic wound of extremity Status: Chronic Plan: Patient currently follows up with wound care as an outpatient Right hip wound, super observant dressing daily Skin tear lower left extremity, Santyl covered and dry dressing daily Right heel wound, apply gentamicin cream twice daily, see above plan for associated osteomyelitis Wound care consulted, appreciate recommendations * Cleanse wound to R Achilles heel with normal saline only and pat dry. Apply gentamicin mixed with Santyl 50/ 50 and apply to wound bed * Cover with ABD pad, and secure with rolled gauze and tape. Change dressing daily, until seen by podiatry. * Cleanse wound to R hip see updated note from 04/25 and follow ortho rec for dressing * Cleanse wound to L posterior lower leg with normal saline and pat dry. Apply optifoam gentle 4x4 dressing change dressing every 3 days or PRN if saturated or dislodged. * Sacral wound: -Please cleanse sacral area gently with Remedy barrier wipes and pat dry. Apply Cavilon skin barrier film spray to sacral area BID and PRN and leave open to air. -Turn and reposition patient every 2 hours from L to R side limiting time spent on back to P.T. and meals -Patient placed on low airloss bed/ mattress -Will try to get in contact with wound care for re-evaluation of sacral wound (5) MRSA (methicillin resistant staph aureus) culture positive Code(s): Z22.322 - Carrier or suspected carrier of Methicillin resistant Staphylococcus aureus Status: Acute Plan: This patient suffers from chronic nonhealing wounds likely secondary to peripheral arterial disease and DM. Patient had wound from right thigh cultured which ultimately grew MRSA. -Monitor for fevers and signs of systemic illness -Antibiotic therapy as above (6) PAD (peripheral artery disease) Code(s): I73.9 - Peripheral vascular disease, unspecified Status: Chronic Plan: s/p recent right LE arterectomy. s/p vascular procedure as above on 04/24 (7) Bandemia Code(s): D72.825 - Bandemia Status: Resolved Plan: Resolved, likely due to osteomyelitis. See above plan. (8) Hydronephrosis Code(s): N13.30 - Unspecified hydronephrosis Status: Acute Plan: Abdominal pelvis CT demonstrates development of moderate left hydronephrosis and hydroureter without ureteral obstruction. Also demonstrates stool ball in the rectum large amount of stool throughout the colon. Patient had a bladder scan 04/11 that revealed of a residual volume of 231 mL. Patient currently voiding well. Patient has no CVA tenderness. Hammer in place UA on 04/26 : negative for infection - Continue to monitor I's and O's. (9) HTN (hypertension) Code(s): I10 - Essential (primary) hypertension Status: Acute Plan: Continue Cardizem and amiodarone (10) Diabetes Code(s): E11.9 - Type 2 diabetes mellitus without complications Status: Acute Plan: Held home glipizide, Januvia Accu-Cheks Low-dose sliding scale Hypoglycemia protocol in place (11) Malnutrition Code(s): E46 - Unspecified protein-calorie malnutrition Status: Acute Plan: This patient appears thin and possibly malnourished. Patient has significant muscle atrophy in arms and legs that are partially consistent with age and lack of activity. -Begin diet supplementation with Ensure (12) Anisocoria Code(s): H57.02 - Anisocoria Status: Acute Plan: Most likely chronic in view of no other alarming ophthalmologic signs/symptoms Can follow up with Ophthalmology outpatient (13) Nutrition, metabolism, and development symptoms Code(s): R63.8 - Other symptoms and signs concerning food and fluid intake Status: Acute Plan: Fluids: per PO Diet: Diabetic supplements with protein shake Electrolytes: monitor and replete as needed DVT prophylaxis: Contraindicated due to upper GI bleed Disposition: SNF not taking patient at this time due to cost of Zerbaxa. <Tamiko Cooper - 05/09/18 09:24> - Attending Attestation This patient was seen and examined. The assessment and plan was discussed with the resident physician and I am in agreement with continued medical care as documented in this encounter. OSMEL PAGAN MD <Osmel Pagan - 05/10/18 13:50> <Tamiko Cooper - Last Filed: 05/09/18 09:24> (1) Osteomyelitis of ankle Qualifiers: Osteomyelitis type: other chronic Laterality: right Qualified Code(s): M86.671 - Other chronic osteomyelitis, right ankle and foot (8) Hydronephrosis Qualifiers: Hydronephrosis type: unspecified Qualified Code(s): N13.30 - Unspecified hydronephrosis <Osmel Pagan R - Last Filed: 05/10/18 13:50> (1) Osteomyelitis of ankle Qualifiers: Osteomyelitis type: other chronic Laterality: right Qualified Code(s): M86.671 - Other chronic osteomyelitis, right ankle and foot (8) Hydronephrosis Qualifiers: Hydronephrosis type: unspecified Qualified Code(s): N13.30 - Unspecified hydronephrosis <Tamiko Cooper - Last Filed: 05/09/18 09:24> (1) Osteomyelitis of ankle Qualifiers: Osteomyelitis type: other chronic Laterality: right Qualified Code(s): M86.671 - Other chronic osteomyelitis, right ankle and foot (8) Hydronephrosis Qualifiers: Hydronephrosis type: unspecified Qualified Code(s): N13.30 - Unspecified hydronephrosis <Osmel Pagan R - Last Filed: 05/10/18 13:50> (1) Osteomyelitis of ankle Qualifiers: Osteomyelitis type: other chronic Laterality: right Qualified Code(s): M86.671 - Other chronic osteomyelitis, right ankle and foot (8) Hydronephrosis Qualifiers: Hydronephrosis type: unspecified Qualified Code(s): N13.30 - Unspecified hydronephrosis
[2018-05-09 09:27] LABS: Anion Gap 8 meq/L (5-15); Blood Urea Nitrogen 12 mg/dL (7-18); Calcium 7.8 mg/dL (8.5-10.1); Carbon Dioxide 27.4 meq/L (21.0-32.0); Chloride 101 meq/L (98-107); Glomerular Filtration Rate Greater Than 89 mL/min (>89); Glucose,Random 154 mg/dL (74-106); Sodium 136 meq/L (136-145)
[2018-05-09 09:58] LABS: Eosinophils 5 % (0-4); Lymphocytes 4 % (9-44); Metamyelocytes 2 % (0-1); Monocytes 6 % (0-8); Myelocytes 1 % (0-0); Platelet Morphology Normal (Normal); Toxic Granulation 2+
--- NOTE | 2018-05-09 12:09 | P.PNID ---
Subjective Remarks: Patient is an 87-year-old male, admitted to the hospital for evaluation of low hemoglobin. There was apparently episodes of black tarry stools. He had a GI workup on this admission, and he seemed to be stable from the GI standpoint. Patient apparently has had a wound on his right heel Achilles area. He had vascular workup, and underwent aortogram around April 08, and had atherectomy of the right SFA and popliteal area. Patient could not really tell me how long he has had the open wound. He has pain when he walks. There is been no fever and chills. On this admission podiatry was consulted. 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 There is a foul odor coming out from that right foot, and patient really could not notice any difference. Since admission he has not been febrile. He has significant pain whenever his RLE gets moved. There was a culture from a right thigh wound that has MRSA. I do not see any culture from the right foot. His initial WBC was around 14,000 and that is down to normal. Blood cultures are negative. Infectious disease consultation has been requested to evaluate the patient. Notes reviewed Temps ok Still with pain Had surgery R hip 04/27 - removal of hardware Intraop C/S negative Underwent revascularization 04/24 C/S from ankle with MDR PSAE, Proteus and Enterococcus C/S R thigh MRSA (wound) Antibiotics: Vancomycin Zerbaxa Lines: PIV Past Medical History: Weakness Diabetes HLD (hyperlipidemia) MDRO (multiple drug resistant organisms) resistance Onset Date: ~04/11/18 MRSA (methicillin resistant Staphylococcus aureus) PAD (peripheral artery disease) Hip surgery Allergies/Adverse Reactions: Allergies No Known Allergies Allergy (Verified 04/08/18 12:35) Objective Vital Signs 05/08/18 13:08 05/08/18 16:00 05/08/18 20:00 Temperature 97.9 F 97.9 F Pulse Rate 63 61 Respiratory Rate 0 L 18 19 Blood Pressure 109/61 148/74 H Pulse Oximetry 97 97 05/08/18 23:41 05/09/18 00:00 05/09/18 04:00 Temperature 97.9 F 97.8 F Pulse Rate 59 L 60 Respiratory Rate 19 18 18 Blood Pressure 157/71 H 144/66 H Pulse Oximetry 98 95 05/09/18 05:40 05/09/18 06:10 Temperature Pulse Rate Respiratory Rate 19 19 Blood Pressure Pulse Oximetry Intake & Output 05/08/18 05/09/18 05/09/18 18:59 06:59 18:59 Intake Total 640 / 640 1282.5 / 1282.5 Output Total 1100 / 1100 2200 / 2200 Balance -460 / -460 -917.5 / -917.5 Weight 83.7 kg Intake: IV 200 / 200 362.5 / 362.5 Zerbaxa Inj 1,500 MG In NS Inj 200 / 200 100 / 100 100 ML @ 100 mls/hr IV.SIG Q8H ACE Rx#:[id number] Vancomycin Inj 1,250 MG In NS 262.5 / 262.5 Inj 250 ML @ 262.5 mls/hr IV. SIG Q18H ACE Rx#:[id number] Oral 440 / 440 920 / 920 Output: Urine 1100 / 1100 Urine Amount (Catheter) 2200 / 2200 Condom 2200 / 2200 Other: Date of Last Bowel Movement 05/09/18 # Bowel Movements 0 # Incontinent Bowel Movements 1 Lab - Hematology Results 05/08/18 05/09/18 05:55 08:18 WBC 10.5 10.7 RBC 3.04 L 3.06 L Hgb 9.2 L 9.0 L Hct 27.9 L 28.1 L MCV 91.6 91.8 MCH 30.1 29.3 MCHC 32.9 31.9 L RDW 20.7 H 20.7 H Plt Count 462 H 453 H MPV 6.7 L 6.8 L Prelim Diff (Auto) Slide review pending Slide review pending Neut % (Auto) 65.7 66.8 Lymph % (Auto) 13.3 10.9 [place] % (Auto) 10.9 H 10.7 H Eos % (Auto) 9.0 H 9.6 H Baso % (Auto) 1.1 2.0 Neut # (Auto) 6.9 7.1 Lymph # (Auto) 1.4 1.2 [place] # (Auto) 1.1 H 1.1 H Eos # (Auto) 0.9 H 1.0 H Baso # (Auto) 0.1 0.2 WBC Differential Manual diff final Manual diff final Seg Neuts % (Manual) 64 66 Band Neuts % (Manual) 4 14 H Lymphocytes % (Manual) 15 4 L Monocytes % (Manual) 9 H 6 Eosinophils % (Manual) 5 H 5 H Basophils % (Manual) 1 2 Metamyelocytes % (Man) 1 2 H Myelocytes % (Man) 1 H 1 H Abs Neuts (Manual) 7.4 8.9 H Differential Comment . . Toxic Granulation 1+ H 2+ H Platelet Estimate High H High H Platelet Morphology Normal Normal Lab - Chemistry Results 05/07/18 05/07/18 05/08/18 18:07 21:48 05:55 Sodium 138 Potassium 3.5 Chloride 102 Carbon Dioxide 27.2 Anion Gap 9 BUN 11 Creatinine 0.61 Estimated GFR Greater than 89 POC Glucose 169 H 187 H Random Glucose 131 H Calcium 7.8 L 05/08/18 05/08/18 05/08/18 07:43 12:25 17:51 Sodium Potassium Chloride Carbon Dioxide Anion Gap BUN Creatinine Estimated GFR POC Glucose 138 H 169 H 146 H Random Glucose Calcium 05/08/18 05/09/18 05/09/18 19:51 08:18 08:56 Sodium 136 Potassium 4.0 Chloride 101 Carbon Dioxide 27.4 Anion Gap 8 BUN 12 Creatinine 0.63 Estimated GFR Greater than 89 POC Glucose 137 H 166 H Random Glucose 154 H Calcium 7.8 L Imaging: ITS Impressions Head CT 04/11/18 11:59 CONCLUSION: 1. Stable appearance of the brain. . Ankle MRI 04/15/18 00:00 CONCLUSION: 1. Osteomyelitis of the posterior calcaneus with a near complete tear of the distal Achilles tendon. There is overlying cellulitis and subcutaneous edema with a small abscess adjacent to the distal Achilles tendon as measured above. There is edematous change on the plantar aspect of the foot with a tenosynovitis as above. No acute fracture identified. Mild bone edema tibia, nonspecific. Ankle X-Ray 04/15/18 00:00 CONCLUSION: Osteomyelitis of the posterior calcaneus with overlying soft tissue swelling and ulceration. No acute fracture. Femur MRI 04/25/18 00:00 CONCLUSION: 1. 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 The collection appears to communicate with the prosthetic component in the proximal femur. 2. Edematous changes are noted along the vastus lateralis and iliotibial band. Hip X-Ray 04/27/18 00:00 CONCLUSION: Hardware removal on the right. Abdomen/Pelvis CT 04/30/18 10:28 Review of bone windows reveals moderate degenerative changes in the lumbar spine and both SI joints. CONCLUSION: 1. Large bolus of stool in the rectum with stool throughout the colon suggesting constipation with possible impaction 2. Prominent gallbladder without stones 3. 2 nonobstructing stones in the left kidney. Physical Exam: GENERAL: awake and alert, not in respiratory distress. SKIN: Cool and dry. No generalized rash. EYES: [place] conjunctiva. No petechia or hemorrhage. No scleral icterus. No injection or drainage. EARS, NOSE AND THROAT: Mucous membranes pink and moist. No oral lesions noted. NECK: Trachea midline. Supple and not tender, no meningeal signs CARDIOVASCULAR: Regular rate and rhythm. No murmurs, rubs or gallops heard RESPIRATORY: Clear to auscultation. Breath sounds equal bilaterally. No rales , wheezing or rhonchi ABDOMEN: Soft, non-tender, nondistended. Bowel sounds present and normoactive. No guarding. No rebound. No organomegaly. EXTREMITIES: No clubbing, cyanosis, or edema. R foot - has dressing in place. Has some purplish areas on plantar aspect, dorsum of foot, and tip of big toe and second toe. Dressing R hip with bloody drainage NEURO: Awake and alert PSYCH: Cooperative LINE: No evidence of infection Assessment and Plan - Plan Impression Non-healing wound R heel/achilles area with abscess and osteo posterior calcaneus PVD S/P revascularization RLE 04/24 Infection R femur, has sinus tract on MRI, S/P RAZA, C/S MRSA GIB Leukocytosis, resolved Anemia Recommendation Continue IV Vanco - needs until Jun 07, 6 weeks after hardware removal for the R hip Continue Zerbaxa - for the heel ulcer and osteo SNF not taking patient at this time due to cost of Zerbaxa Monitor progress
[2018-05-09] MEDS: Vancomycin Inj 1,250 MG in Sodium Chlor 0.9% Inj 250 ML IV.SIG SCH (14:44)
[2018-05-10] MEDS: CEFTOLOZANE IV.SIG SCH ×3 (02:21→17:47)
[2018-05-10] MEDS: TAZOBACTAM IV.SIG SCH ×3 (02:21→17:47)
[2018-05-10] MEDS: SODIUM CHLOR 0.9% IV.SIG SCH ×3 (02:21→17:47)
[2018-05-10] MEDS: Levothyroxine 125 MCG Tablet PO SCH (05:54)
[2018-05-10 06:18] LABS: Baso # (Auto) 0.2 th/mm3 (0.0-0.2); Baso % (Auto) 1.5 % (0.0-2.0); Eos # (Auto) 1.2 th/mm3 (0.0-0.4); Eos % (Auto) 10.3 % (0.0-4.0); Hematocrit 28.9 % (39.0-51.0); Hemoglobin 9.3 gm/dL (13.0-17.0); Lymph # (Auto) 1.3 th/mm3 (1.0-4.8); Lymph % (Auto) 11.9 % (9.0-44.0); Mean Corpuscular HGB Conc 32.4 % (32.0-36.0); Mean Corpuscular Hemoglobin 29.4 pg (27.0-34.0); Mono # (Auto) 1.1 th/mm3 (0.0-0.9); Mono % (Auto) 9.9 % (0.0-8.0); Neut # (Auto) 7.4 th/mm3 (1.8-7.7); Neut % (Auto) 66.4 % (16.0-70.0); Platelet Count 445 th/mm3 (150-450); Red Blood Count 3.18 mil/mm3 (4.50-5.90); Red Cell Distribution Width 20.9 % (11.6-17.2); White Blood Count 11.2 th/mm3 (4.0-11.0)
[2018-05-10] MEDS ORDERED: Pharmacy Ordered Lab Info OTHER ONE (08:45)
[2018-05-10] MEDS: Insulin NovoLOG Aspart Correctional Sugar Inj SQ SCH ×4 (09:23→22:30)
[2018-05-10] MEDS: Potassium Phos/Sodium Phos 250 MG Tablet PO SCH ×4 (09:31→22:26)
[2018-05-10] MEDS: Sodium Chloride 1 GM Tablet PO SCH ×3 (09:31→17:49)
[2018-05-10] MEDS: Ascorbic Acid 500 MG Tablet PO SCH ×2 (09:31→22:27)
[2018-05-10] MEDS: Amiodarone 200 MG Tablet PO SCH (09:31)
[2018-05-10] MEDS: Gabapentin 300 MG Capsule PO SCH ×3 (09:31→17:50)
[2018-05-10] MEDS: Ferrous Sulfate 325 MG Tablet PO SCH ×3 (09:31→17:50)
[2018-05-10] MEDS: Magnesium Oxide 400 MG Tablet PO SCH ×4 (09:31→22:29)
[2018-05-10] MEDS: Polyethylene Glycol 3350 17 GM Packet PO SCH (09:32)
[2018-05-10] MEDS: Docusate Sodium 100 MG Capsule PO SCH ×2 (09:32→22:27)
[2018-05-10] MEDS: Gentamicin 0.1% Cream 15 GM Cream TOPICAL SCH ×2 (09:34→22:32)
[2018-05-10] MEDS: Collagenase Oint 30 GM Tube TOPICAL SCH (09:34)
[2018-05-10 10:05] LABS: Anion Gap 8 meq/L (5-15); Blood Urea Nitrogen 12 mg/dL (7-18); Calcium 8.2 mg/dL (8.5-10.1); Carbon Dioxide 28.1 meq/L (21.0-32.0); Chloride 99 meq/L (98-107); Glomerular Filtration Rate Greater Than 89 mL/min (>89); Glucose,Random 133 mg/dL (74-106); Potassium 4.5 meq/L (3.5-5.1); Sodium 135 meq/L (136-145)
[2018-05-10 10:07] LABS: Vancomycin,Trough 16.3 mcg/mL (5.0-10.0)
[2018-05-10] MEDS: Vancomycin Inj 1,250 MG in Sodium Chlor 0.9% Inj 250 ML IV.SIG SCH (11:03)
--- NOTE | 2018-05-10 12:05 | P.PNFP ---
Subjective Interval history: No acute events overnight. Remains afebrile, vitals stable. Patient seen and examined this AM. Patient's only concern this morning is of wanting a timetable of when he may be able to get discharge to a longterm. He denies worsening pain. Denies fevers or chills, CP, palpitations, dyspnea, cough. Tolerating diet. <Duke Rice - 05/10/18 12:05> Results - Labs Result diagrams: 05/10/18 05:03 05/10/18 09:26 <Osmel Pagan - 05/10/18 14:01> Abnormal lab results 05/09/18 05/09/18 05/10/18 Range/Units 17:41 22:03 05:03 WBC 11.2 H (4.0-11.0) th/mm3 RBC 3.18 L (4.50-5.90) mil/mm3 Hgb 9.3 L (13.0-17.0) gm/dL Hct 28.9 L (39.0-51.0) % RDW 20.9 H (11.6-17.2) % [place] % (Auto) 9.9 H (0.0-8.0) % Eos % (Auto) 10.3 H (0.0-4.0) % [place] # (Auto) 1.1 H (0.0-0.9) th/mm3 Eos # (Auto) 1.2 H (0.0-0.4) th/mm3 Sodium (136-145) meq/L POC Glucose 264 H 237 H (68-110) mg/dl Random Glucose (74-106) mg/dL Calcium (8.5-10.1) mg/dL Vancomycin Trough (5.0-10.0) mcg/mL 05/10/18 05/10/18 05/10/18 Range/Units 08:12 09:26 12:23 WBC (4.0-11.0) th/mm3 RBC (4.50-5.90) mil/mm3 Hgb (13.0-17.0) gm/dL Hct (39.0-51.0) % RDW (11.6-17.2) % [place] % (Auto) (0.0-8.0) % Eos % (Auto) (0.0-4.0) % [place] # (Auto) (0.0-0.9) th/mm3 Eos # (Auto) (0.0-0.4) th/mm3 Sodium 135 L (136-145) meq/L POC Glucose 140 H 154 H (68-110) mg/dl Random Glucose 133 H (74-106) mg/dL Calcium 8.2 L (8.5-10.1) mg/dL Vancomycin Trough 16.3 H (5.0-10.0) mcg/mL Short CBC 05/10/18 Range/Units 05:03 WBC 11.2 H (4.0-11.0) th/mm3 Hgb 9.3 L (13.0-17.0) gm/dL Hct 28.9 L (39.0-51.0) % Plt Count 445 (150-450) th/mm3 BMP 05/10/18 09:26 Sodium 135 L Potassium 4.5 Chloride 99 Carbon Dioxide 28.1 BUN 12 Creatinine 0.63 Calcium 8.2 L <Osmel Pagan - 05/10/18 14:01> Abnormal lab results 05/09/18 05/09/18 05/10/18 Range/Units 17:41 22:03 05:03 WBC 11.2 H (4.0-11.0) th/mm3 RBC 3.18 L (4.50-5.90) mil/mm3 Hgb 9.3 L (13.0-17.0) gm/dL Hct 28.9 L (39.0-51.0) % RDW 20.9 H (11.6-17.2) % [place] % (Auto) 9.9 H (0.0-8.0) % Eos % (Auto) 10.3 H (0.0-4.0) % [place] # (Auto) 1.1 H (0.0-0.9) th/mm3 Eos # (Auto) 1.2 H (0.0-0.4) th/mm3 Sodium (136-145) meq/L POC Glucose 264 H 237 H (68-110) mg/dl Random Glucose (74-106) mg/dL Calcium (8.5-10.1) mg/dL Vancomycin Trough (5.0-10.0) mcg/mL 05/10/18 05/10/18 Range/Units 08:12 09:26 WBC (4.0-11.0) th/mm3 RBC (4.50-5.90) mil/mm3 Hgb (13.0-17.0) gm/dL Hct (39.0-51.0) % RDW (11.6-17.2) % [place] % (Auto) (0.0-8.0) % Eos % (Auto) (0.0-4.0) % [place] # (Auto) (0.0-0.9) th/mm3 Eos # (Auto) (0.0-0.4) th/mm3 Sodium 135 L (136-145) meq/L POC Glucose 140 H (68-110) mg/dl Random Glucose 133 H (74-106) mg/dL Calcium 8.2 L (8.5-10.1) mg/dL Vancomycin Trough 16.3 H (5.0-10.0) mcg/mL Short CBC 05/10/18 Range/Units 05:03 WBC 11.2 H (4.0-11.0) th/mm3 Hgb 9.3 L (13.0-17.0) gm/dL Hct 28.9 L (39.0-51.0) % Plt Count 445 (150-450) th/mm3 BMP 05/10/18 09:26 Sodium 135 L Potassium 4.5 Chloride 99 Carbon Dioxide 28.1 BUN 12 Creatinine 0.63 Calcium 8.2 L <MarkbyronZack olverash - 05/10/18 12:05> Physical Exam Vital signs: Vital Signs 05/09/18 16:00 05/09/18 17:22 05/09/18 20:00 Temperature 97.8 F 98.2 F Pulse Rate 61 59 L Respiratory Rate 18 20 20 Blood Pressure 141/66 H 146/67 H Pulse Oximetry 98 96 05/10/18 00:00 05/10/18 04:00 05/10/18 07:00 Temperature 98.1 F 97.9 F Pulse Rate 60 65 63 Respiratory Rate 20 20 20 Blood Pressure 142/64 H 126/61 Pulse Oximetry 95 94 L 05/10/18 08:00 Temperature Pulse Rate 67 Respiratory Rate Blood Pressure Pulse Oximetry Intake & Output 05/09/18 05/10/18 05/10/18 18:59 06:59 18:59 Intake Total 1442.5 / 1442.5 321 / 321 362.5 / 362.5 Output Total 2425 / 2425 1999 Balance -982.5 / -982.5 -1679 / -1679 362.5 / 362.5 Weight 83.4 kg Intake: IV 462.5 / 462.5 100 / 100 362.5 / 362.5 Zerbaxa Inj 1,500 MG In NS Inj 200 / 200 100 / 100 100 / 100 100 ML @ 100 mls/hr IV.SIG Q8H ACE Rx#:[id number] Vancomycin Inj 1,250 MG In NS 262.5 / 262.5 262.5 / 262.5 Inj 250 ML @ 262.5 mls/hr IV. SIG Q18H ACE Rx#:[id number] Oral 980 / 980 221 / 221 Output: Urine 425 / 425 1999 Urine Amount (Catheter) 1999 Condom 1999 Other: Date of Last Bowel Movement 05/09/18 05/09/18 # Bowel Movements 0 <Osmel Pagan R - 05/10/18 14:01> Vital Signs 05/09/18 16:00 05/09/18 17:22 05/09/18 20:00 Temperature 97.8 F 98.2 F Pulse Rate 61 59 L Respiratory Rate 18 20 20 Blood Pressure 141/66 H 146/67 H Pulse Oximetry 98 96 05/10/18 00:00 05/10/18 04:00 05/10/18 07:00 Temperature 98.1 F 97.9 F Pulse Rate 60 65 63 Respiratory Rate 20 20 20 Blood Pressure 142/64 H 126/61 Pulse Oximetry 95 94 L 05/10/18 08:00 Temperature Pulse Rate 67 Respiratory Rate Blood Pressure Pulse Oximetry Intake & Output 05/09/18 05/10/18 05/10/18 18:59 06:59 18:59 Intake Total 1442.5 / 1442.5 321 / 321 100 / 100 Output Total 2425 / 2425 1999 Balance -982.5 / -982.5 -1679 / -1679 100 / 100 Weight 83.4 kg Intake: IV 462.5 / 462.5 100 / 100 100 / 100 Zerbaxa Inj 1,500 MG In NS Inj 200 / 200 100 / 100 100 / 100 100 ML @ 100 mls/hr IV.SIG Q8H ACE Rx#:[id number] Vancomycin Inj 1,250 MG In NS 262.5 / 262.5 Inj 250 ML @ 262.5 mls/hr IV. SIG Q18H ACE Rx#:[id number] Oral 980 / 980 221 / 221 Output: Urine 425 / 425 1999 Urine Amount (Catheter) 1999 Condom 1999 Other: Date of Last Bowel Movement 05/09/18 05/09/18 # Bowel Movements 0 <Duke Rice - 05/10/18 12:05> Narrative: GENERAL: Pleasant elderly male thin, appears malnourished. Alert to person and place but not time. SKIN: Cool and dry. No generalized rash. Has some scattered ecchymoses in his UE. HEAD: Atraumatic. Normocephalic. No temporal wasting, or tenderness. EYES: Anisocoria and left eye, EOMI CARDIOVASCULAR: Regular rate and rhythm. No murmurs, rubs or gallops heard RESPIRATORY: Clear to auscultation. Breath sounds equal bilaterally. No rales , wheezing or rhonchi ABDOMEN: Soft, non-tender, nondistended. No guarding. No rebound. No organomegaly. EXTREMITIES: No edema. Atrophic muscular changes in both legs bilaterally. Right heel covered in bandage. Left foot bandage dry and clean. Patient also has wound on right thigh that is bandaged. Dressing in place,clean and dry. Dressing removed and wound minimal serious sanguinous oozing no erythema surrounding the incision, healing well. Patient able to move toes bilaterally and no decreased sensation. <Duke Rice - 05/10/18 12:05> - Urinary Catheter Management Condom Cath placed during this visit: no <Osmel Pagan - 05/10/18 14:01> no <Duke Rice 05/10/18 12:05> Reason for continuing: Not indwelling catheter <Duke Rice 05/10/18 12:05> Indwelling Urethral Catheter Cath placed during this visit: no <Osmel Pagan 05/10/18 14:01> yes, but has since been removed by the nurse <Duke Rice 05/10/18 12:05> Reason for continuing: Not indwelling catheter <KandavanamDuke - 05/10/18 12:05> Insertion date: 04/11/18 <CristopherdavanamDuke - 05/10/18 12:05> Insertion time: 21:08 <Kandavanam,Duke - 05/10/18 12:05> Removal date: 04/12/18 <Kandavanam,Duke - 05/10/18 12:05> Removal time: 11:35 <CristopherdavanamDuke - 05/10/18 12:05> Straight Cath placed during this visit: no <Osmel Pagan R - 05/10/18 14:01> yes <Zack Ricesh - 05/10/18 12:05> Reason for continuing: Other continuation reason <JulietteamDuke - 12:05> Insertion date: 04/11/18 <KandavanamDuke - 05/10/18 12:05> Insertion time: 21:08 <CristopherdavanamDuke - 05/10/18 12:05> Assessment and Plan - Assessment (1) Osteomyelitis of ankle Code(s): M86.9 - Osteomyelitis, unspecified Status: Acute (2) Anemia Code(s): D64.9 - Anemia, unspecified Status: Acute (3) Infection associated with internal hip prosthesis Code(s): T84.59XA - Infection and inflammatory reaction due to other internal joint prosthesis, initial encounter; Z96.649 - Presence of unspecified artificial hip joint Status: Acute (4) Chronic wound of extremity Status: Chronic (5) MRSA (methicillin resistant staph aureus) culture positive Code(s): Z22.322 - Carrier or suspected carrier of Methicillin resistant Staphylococcus aureus Status: Acute (6) PAD (peripheral artery disease) Code(s): I73.9 - Peripheral vascular disease, unspecified Status: Chronic (7) Bandemia Code(s): D72.825 - Bandemia Status: Resolved (8) Hydronephrosis Code(s): N13.30 - Unspecified hydronephrosis Status: Acute (9) HTN (hypertension) Code(s): I10 - Essential (primary) hypertension Status: Acute (10) Diabetes Code(s): E11.9 - Type 2 diabetes mellitus without complications Status: Acute (11) Malnutrition Code(s): E46 - Unspecified protein-calorie malnutrition Status: Acute (12) Anisocoria Code(s): H57.02 - Anisocoria Status: Acute (13) Nutrition, metabolism, and development symptoms Code(s): R63.8 - Other symptoms and signs concerning food and fluid intake Status: Acute <Osmel Pagan - 05/10/18 14:01> (1) Osteomyelitis of ankle Code(s): M86.9 - Osteomyelitis, unspecified Status: Acute Plan: MRI showed evidence of osteomyelitis of right ankle which likely has been brewing for some time in this diabetic patient with PAD with chronic lower- extremity non-healing ulcers Culture positive for MRSA at different site (right thigh wound) Wound Cx of right ankle showed Pseudomonas as well as multidrug-resistant Proteus and group D enterococcus Blood cultures NGTD Podiatry consulted, appreciate assistance; * plan for patient to have calcanectomy on 04/26 however due to patient's inability to recall presurgery discussion when seen by podiatry the morning of 04/26 Dr. Urena will no longer be performing calcanectomy procedure. * Recommends: betadine wet to dry daily and if foot/heel becomes acutely infected rec as patient is unable to care for himself or able to mentally process limb salvage procedure options. In addition, the likelihood of failure was already high due to the low vascularity to the right lower limb. * Podiatry has signed off. * Discussed option of below-knee amputation of right lower extremity and Patient still not interested Vascular surgery consulted * s/p RECREATION ASSISTANT of popliteal stenosis on 04/24 * Anterior tibial, posterior tibia and peritoneal artery occluded Lower extremity pulses appreciated Via Doppler. Right popliteal pulse appreciated on exam * ID consulted, appreciate recs * Continue vancomycin--until Jun 07, 6 weeks after hardware removal for the R hip * Continue Zerbaxa--for the heel ulcer and osteo due to resistance of organisms * Patient would like another antibiotic rec than Zerbaxa in order for him to be able to be discharge to longterm * Wound care consulted, appreciate recs * See note from 04/25 * follow recommendations * Pain management with [place] scheduled, gabapentin, morphine for breakthrough pain (2) Anemia Code(s): D64.9 - Anemia, unspecified Status: Acute Plan: On admission on 04/11 patient found to have hemoglobin of 6.6 and transfused 2 units of packed RBC. Also had tarry stools and underwent endoscopy and colonoscopy which were benign except small ulcer in the rectum. Placed on PPI and iron. H and H trended -04/29 Hbg 6.5 down from 7.5 -transfused one unit of PRBC repeat H/H 04/30 6.1 -Order for additional unit of PRBC and H/H. Repeat H/H 6.6. Two additional units ordered based on critical care physician recommendations -Transferred to ICU; once patient's hemoglobin improved and asymptomatic transferred back to the floor. -CT abdomen: two non obstructive kidney stones and some constipation -Consulted ortho: Bleeding possibly from femoral canal. During procedure box was not used because of patient's response to previous hardware. Dr. Muñoz stated that hemoglobin should stabilize and that the bleeding could continue for up to 2 weeks after the procedure. 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 The collection appears to communicate with the prosthetic component in the proximal femur. -. Edematous changes are noted along the vastus lateralis and iliotibial band. -Patient spiked fever on 04/28: BCX no growth to date Follow wound care recommendations for care Orthopedic consultation: 04/27 irrigation and debridement with hardware removal and placement of antibiotic beads Recommendation: "TTWB RLE and Dressing changes daily and as needed. Incisions will have drainage for likely several days to even couple of weeks as antibiotic beads were placed along with removal of hardware and debridement of the femur leaving an open femoral canal. This should slowly stop over several days to weeks. Dressing changes as needed.Antibiotics per ID for chronic osteomyelitis. Plan for patient to follow-up in my office in 2 weeks" Right hip wound healing well (4) Chronic wound of extremity Status: Chronic Plan: Patient currently follows up with wound care as an outpatient Right hip wound, super observant dressing daily Skin tear lower left extremity, Santyl covered and dry dressing daily Right heel wound, apply gentamicin cream twice daily, see above plan for associated osteomyelitis Wound care consulted, appreciate recommendations * Cleanse wound to R Achilles heel with normal saline only and pat dry. Apply gentamicin mixed with Santyl 50/ 50 and apply to wound bed * Cover with ABD pad, and secure with rolled gauze and tape. Change dressing daily, until seen by podiatry. * Cleanse wound to R hip see updated note from 04/25 and follow ortho rec for dressing * Cleanse wound to L posterior lower leg with normal saline and pat dry. Apply optifoam gentle 4x4 dressing change dressing every 3 days or PRN if saturated or dislodged. * Sacral wound: -Please cleanse sacral area gently with Remedy barrier wipes and pat dry. Apply Cavilon skin barrier film spray to sacral area BID and PRN and leave open to air. -Turn and reposition patient every 2 hours from L to R side limiting time spent on back to P.T. and meals -Patient placed on low airloss bed/ mattress -Will try to get in contact with wound care for re-evaluation of sacral wound (5) MRSA (methicillin resistant staph aureus) culture positive Code(s): Z22.322 - Carrier or suspected carrier of Methicillin resistant Staphylococcus aureus Status: Acute Plan: This patient suffers from chronic nonhealing wounds likely secondary to peripheral arterial disease and DM. Patient had wound from right thigh cultured which ultimately grew MRSA. -Monitor for fevers and signs of systemic illness -Antibiotic therapy as above (6) PAD (peripheral artery disease) Code(s): I73.9 - Peripheral vascular disease, unspecified Status: Chronic Plan: s/p recent right LE arterectomy. s/p vascular procedure as above on 04/24 (7) Bandemia Code(s): D72.825 - Bandemia Status: Resolved Plan: Resolved, likely due to osteomyelitis. See above plan. (8) Hydronephrosis Code(s): N13.30 - Unspecified hydronephrosis Status: Acute Plan: Abdominal pelvis CT demonstrates development of moderate left hydronephrosis and hydroureter without ureteral obstruction. Also demonstrates stool ball in the rectum large amount of stool throughout the colon. Patient had a bladder scan 04/11 that revealed of a residual volume of 231 mL. Patient currently voiding well. Patient has no CVA tenderness. Hammer in place UA on 04/26 : negative for infection - Continue to monitor I's and O's. (9) HTN (hypertension) Code(s): I10 - Essential (primary) hypertension Status: Acute Plan: Continue Cardizem and amiodarone (10) Diabetes Code(s): E11.9 - Type 2 diabetes mellitus without complications Status: Acute Plan: Held home glipizide, Januvia Accu-Cheks Low-dose sliding scale Hypoglycemia protocol in place (11) Malnutrition Code(s): E46 - Unspecified protein-calorie malnutrition Status: Acute Plan: This patient appears thin and possibly malnourished. Patient has significant muscle atrophy in arms and legs that are partially consistent with age and lack of activity. -Begin diet supplementation with Ensure (12) Anisocoria Code(s): H57.02 - Anisocoria Status: Acute Plan: Most likely chronic in view of no other alarming ophthalmologic signs/symptoms Can follow up with Ophthalmology outpatient (13) Nutrition, metabolism, and development symptoms Code(s): R63.8 - Other symptoms and signs concerning food and fluid intake Status: Acute Plan: Fluids: per PO Diet: Diabetic supplements with protein shake Electrolytes: monitor and replete as needed DVT prophylaxis: Contraindicated due to upper GI bleed Disposition: SNF not taking patient at this time due to cost of Zerbaxa <MarkbyronDuke olvera - 05/10/18 12:02> - Attending Attestation This patient was seen and examined. The assessment and plan was discussed with the resident physician and I am in agreement with continued medical care as documented in this encounter. OSMEL PAGAN MD <Osmel Pagan - 05/10/18 14:01> <Zack Ricesh - Last Filed: 05/10/18 12:02> (1) Osteomyelitis of ankle Qualifiers: Osteomyelitis type: other chronic Laterality: right Qualified Code(s): M86.671 - Other chronic osteomyelitis, right ankle and foot (8) Hydronephrosis Qualifiers: Hydronephrosis type: unspecified Qualified Code(s): N13.30 - Unspecified hydronephrosis <Osmel Pagan R - Last Filed: 05/10/18 14:01> (1) Osteomyelitis of ankle Qualifiers: Osteomyelitis type: other chronic Laterality: right Qualified Code(s): M86.671 - Other chronic osteomyelitis, right ankle and foot (8) Hydronephrosis Qualifiers: Hydronephrosis type: unspecified Qualified Code(s): N13.30 - Unspecified hydronephrosis <DwayneDuke - Last Filed: 05/10/18 12:02> (1) Osteomyelitis of ankle Qualifiers: Osteomyelitis type: other chronic Laterality: right Qualified Code(s): M86.671 - Other chronic osteomyelitis, right ankle and foot (8) Hydronephrosis Qualifiers: Hydronephrosis type: unspecified Qualified Code(s): N13.30 - Unspecified hydronephrosis <Osmel Pagan R - Last Filed: 05/10/18 14:01> (1) Osteomyelitis of ankle Qualifiers: Osteomyelitis type: other chronic Laterality: right Qualified Code(s): M86.671 - Other chronic osteomyelitis, right ankle and foot (8) Hydronephrosis Qualifiers: Hydronephrosis type: unspecified Qualified Code(s): N13.30 - Unspecified hydronephrosis
--- NOTE | 2018-05-10 17:10 | P.PNADD ---
Addendum to Inpatient Note Reason for Addendum: Additional Documentation Additional information: hospital course 87-year-old male with history of hypertension, diabetes, chronic nonhealing wounds, PAD with recent right LE arterectomy admitted on 04/11 for severe anemia. Patient found to have a hemoglobin of 6.6 and was transfused successfully with 2 units of packed red blood cells. On admission patient also had black tarry stools and underwent endoscopy and colonoscopy the following day. Endoscopy and colonoscopy were both benign with the exception of a small ulcer in the rectum that was not actively bleeding. Patient was placed on PPIs , iron, and supportive care. Patient also has chronic nonhealing wounds on right thigh as well as on the posterior side of right and left calcaneus. Wound cultures of thigh grew MRSA and patient was placed on vancomycin (to be continued until Jun 07). Wound cultures of right calcaneus grew Proteus, Pseudomonas, and group D enterococcus and patient was placed on Zerbaxa due to sensitivities. Patient underwent angiogram of the right lower extremity with revascularization of right popliteal on 04/24. Calcanectomy cancelled on 04/[address] barger due to patients inability to recall presurgery discussions. Discussed option of below-knee amputation of right lower extremity and Patient still not interested. Wound care noted patient's right hip wound to be more purulent and fluctuant on 04/25. Right femur MRI showed osseous cutaneous fistulous tract extending from the greater trochanter to the skin surface with small subcutaneous fluid collection identified. The collection appears to communicate with the prosthetic component in the proximal femur. Orthopedic consulted and on 04/27 irrigation and debridement of R hip with hardware removal and placement of antibiotic beads. Recommended TTWB RLE and Dressing changes daily and as needed , antibiotics per ID for chronic osteomyelitis, and follow-up in 2 weeks. On 04/29 patient had drop of hemoglobin from 7.5 to 6.5. Transferred to ICU and transfused [address] abdomen: two non obstructive kidney stones and some constipation. Re-Consulted ortho who said there may be bleeding from femoral canal. During procedure box was not used because of patient's response to previous hardware. Dr. Muñoz stated that hemoglobin should stabilize and that the bleeding could continue for up to 2 weeks after the procedure. Procedures: EDG colonoscopy STAFF MECHANICAL ENGINEER of popliteal stenosis on 04/24
[2018-05-11] MEDS: CEFTOLOZANE IV.SIG SCH ×3 (01:36→17:59)
[2018-05-11] MEDS: TAZOBACTAM IV.SIG SCH ×3 (01:36→17:59)
[2018-05-11] MEDS: SODIUM CHLOR 0.9% IV.SIG SCH ×3 (01:36→17:59)
[2018-05-11] MEDS: Vancomycin Inj 1,250 MG in Sodium Chlor 0.9% Inj 250 ML IV.SIG SCH ×2 (03:15→21:42)
[2018-05-11] MEDS: Levothyroxine 125 MCG Tablet PO SCH (05:41)
[2018-05-11] MEDS: Docusate Sodium 100 MG Capsule PO SCH ×2 (09:14→21:43)
[2018-05-11] MEDS: Potassium Phos/Sodium Phos 250 MG Tablet PO SCH ×4 (09:14→21:44)
[2018-05-11] MEDS: Gabapentin 300 MG Capsule PO SCH ×3 (09:15→17:58)
[2018-05-11] MEDS: Ferrous Sulfate 325 MG Tablet PO SCH ×3 (09:15→17:59)
[2018-05-11] MEDS: Magnesium Oxide 400 MG Tablet PO SCH ×4 (09:16→21:43)
[2018-05-11] MEDS: Sodium Chloride 1 GM Tablet PO SCH ×3 (09:16→17:58)
[2018-05-11] MEDS: Amiodarone 200 MG Tablet PO SCH (09:17)
[2018-05-11] MEDS: Ascorbic Acid 500 MG Tablet PO SCH ×2 (09:22→21:44)
[2018-05-11] MEDS: Polyethylene Glycol 3350 17 GM Packet PO SCH (09:28)
[2018-05-11] MEDS: Collagenase Oint 30 GM Tube TOPICAL SCH (09:28)
[2018-05-11] MEDS: Gentamicin 0.1% Cream 15 GM Cream TOPICAL SCH ×2 (09:28→22:48)
[2018-05-11] MEDS: Insulin NovoLOG Aspart Correctional Sugar Inj SQ SCH ×4 (09:39→21:42)
[2018-05-11 11:15] LABS: Baso # (Auto) 0.2 th/mm3 (0.0-0.2); Baso % (Auto) 2.4 % (0.0-2.0); Eos # (Auto) 1.1 th/mm3 (0.0-0.4); Eos % (Auto) 10.8 % (0.0-4.0); Hematocrit 31.1 % (39.0-51.0); Hemoglobin 10.3 gm/dL (13.0-17.0); Lymph # (Auto) 1.1 th/mm3 (1.0-4.8); Lymph % (Auto) 11.3 % (9.0-44.0); Mean Corpuscular HGB Conc 33.2 % (32.0-36.0); Mean Corpuscular Hemoglobin 30.7 pg (27.0-34.0); Mean Corpuscular Volume 92.4 fL (80.0-100.0); Mean Platelet Volume 6.9 fL (7.0-11.0); Mono # (Auto) 0.9 th/mm3 (0.0-0.9); Mono % (Auto) 9.4 % (0.0-8.0); Neut # (Auto) 6.6 th/mm3 (1.8-7.7); Neut % (Auto) 66.1 % (16.0-70.0); Platelet Count 448 th/mm3 (150-450); Red Blood Count 3.36 mil/mm3 (4.50-5.90); Red Cell Distribution Width 22.3 % (11.6-17.2)
[2018-05-11 11:36] LABS: Anion Gap 6 meq/L (5-15); Blood Urea Nitrogen 13 mg/dL (7-18); Calcium 8.3 mg/dL (8.5-10.1); Carbon Dioxide 28.9 meq/L (21.0-32.0); Chloride 99 meq/L (98-107); Glomerular Filtration Rate Greater Than 89 mL/min (>89); Glucose,Random 141 mg/dL (74-106); Potassium 4.5 meq/L (3.5-5.1); Sodium 134 meq/L (136-145)
[2018-05-11] MEDS: Citalopram 20 MG Tablet PO SCH (13:33)
--- NOTE | 2018-05-11 14:24 | P.PNFP ---
Subjective Interval history: Patient seen and examined at bedside this morning. Per patient no acute events overnight. Patient denies any chest pain, shortness of breath, nausea, vomiting, fever, chills, or abdominal pain. He reports his pain was a little worse this morning, but is now improving. Nurse reported that patient expressed suicidal ideation this morning prior to me seeing the him with remarks about wanting to and hurt himself. He also refused to take some of his medication, including pain medication. She has documented that in her note. This was the first time she noticed this behavior from him however it did fluctuate throughout the morning and as he was "happy" later on in the morning. <Sakshi Garza D - 05/11/18 14:24> Results - Labs Result diagrams: 05/12/18 06:00 05/12/18 06:00 <Ayo Miranda R - 05/12/18 11:35> Abnormal lab results 05/11/18 05/11/18 05/11/18 Range/Units 10:50 12:46 17:50 RBC (4.50-5.90) mil/mm3 Hgb (13.0-17.0) gm/dL Hct (39.0-51.0) % RDW (11.6-17.2) % [place] % (Auto) (0.0-8.0) % Eos % (Auto) (0.0-4.0) % Baso % (Auto) (0.0-2.0) % Eos # (Auto) (0.0-0.4) th/mm3 Baso # (Auto) (0.0-0.2) th/mm3 Sodium 134 L (136-145) meq/L POC Glucose 161 H 183 H (68-110) mg/dl Random Glucose 141 H (74-106) mg/dL Calcium 8.3 L (8.5-10.1) mg/dL 05/11/18 05/12/18 05/12/18 Range/Units 21:35 06:00 06:00 RBC 3.06 L (4.50-5.90) mil/mm3 Hgb 9.2 L (13.0-17.0) gm/dL Hct 28.4 L (39.0-51.0) % RDW 21.9 H (11.6-17.2) % [place] % (Auto) 9.5 H (0.0-8.0) % Eos % (Auto) 11.2 H (0.0-4.0) % Baso % (Auto) 3.1 H (0.0-2.0) % Eos # (Auto) 1.1 H (0.0-0.4) th/mm3 Baso # (Auto) 0.3 H (0.0-0.2) th/mm3 Sodium 133 L (136-145) meq/L POC Glucose 176 H (68-110) mg/dl Random Glucose 119 H (74-106) mg/dL Calcium 7.9 L (8.5-10.1) mg/dL 05/12/18 Range/Units 08:57 RBC (4.50-5.90) mil/mm3 Hgb (13.0-17.0) gm/dL Hct (39.0-51.0) % RDW (11.6-17.2) % [place] % (Auto) (0.0-8.0) % Eos % (Auto) (0.0-4.0) % Baso % (Auto) (0.0-2.0) % Eos # (Auto) (0.0-0.4) th/mm3 Baso # (Auto) (0.0-0.2) th/mm3 Sodium (136-145) meq/L POC Glucose 127 H (68-110) mg/dl Random Glucose (74-106) mg/dL Calcium (8.5-10.1) mg/dL Short CBC 05/12/18 Range/Units 06:00 WBC 10.0 (4.0-11.0) th/mm3 Hgb 9.2 L (13.0-17.0) gm/dL Hct 28.4 L (39.0-51.0) % Plt Count 395 (150-450) th/mm3 BMP 05/11/18 05/12/18 10:50 06:00 Sodium 134 L 133 L Potassium 4.5 4.6 Chloride 99 101 Carbon Dioxide 28.9 24.6 BUN 13 13 Creatinine 0.74 0.61 Calcium 8.3 L 7.9 L <Ayo Miranda - 05/12/18 11:35> Abnormal lab results 05/10/18 05/10/18 05/11/18 Range/Units 17:17 20:14 09:27 RBC (4.50-5.90) mil/mm3 Hgb (13.0-17.0) gm/dL Hct (39.0-51.0) % RDW (11.6-17.2) % MPV (7.0-11.0) fL [place] % (Auto) (0.0-8.0) % Eos % (Auto) (0.0-4.0) % Baso % (Auto) (0.0-2.0) % Eos # (Auto) (0.0-0.4) th/mm3 Sodium (136-145) meq/L POC Glucose 178 H 147 H 149 H (68-110) mg/dl Random Glucose (74-106) mg/dL Calcium (8.5-10.1) mg/dL 05/11/18 05/11/18 05/11/18 Range/Units 10:50 10:50 12:46 RBC 3.36 L (4.50-5.90) mil/mm3 Hgb 10.3 L (13.0-17.0) gm/dL Hct 31.1 L (39.0-51.0) % RDW 22.3 H (11.6-17.2) % MPV 6.9 L (7.0-11.0) fL [place] % (Auto) 9.4 H (0.0-8.0) % Eos % (Auto) 10.8 H (0.0-4.0) % Baso % (Auto) 2.4 H (0.0-2.0) % Eos # (Auto) 1.1 H (0.0-0.4) th/mm3 Sodium 134 L (136-145) meq/L POC Glucose 161 H (68-110) mg/dl Random Glucose 141 H (74-106) mg/dL Calcium 8.3 L (8.5-10.1) mg/dL Short CBC 05/11/18 Range/Units 10:50 WBC 10.0 (4.0-11.0) th/mm3 Hgb 10.3 L (13.0-17.0) gm/dL Hct 31.1 L (39.0-51.0) % Plt Count 448 (150-450) th/mm3 BMP 05/11/18 10:50 Sodium 134 L Potassium 4.5 Chloride 99 Carbon Dioxide 28.9 BUN 13 Creatinine 0.74 Calcium 8.3 L <Sakshi Garza D - 05/11/18 14:24> Physical Exam Vital signs: Vital Signs 05/11/18 12:00 05/11/18 12:10 05/11/18 16:00 Temperature 97.6 F 98.1 F Pulse Rate 61 62 64 Respiratory Rate 15 14 Blood Pressure 117/59 L 136/65 Pulse Oximetry 97 97 05/11/18 20:00 05/12/18 00:00 05/12/18 04:00 Temperature 97.8 F 97.7 F 98.2 F Pulse Rate 61 62 60 Respiratory Rate 18 18 18 Blood Pressure 137/61 130/60 125/60 Pulse Oximetry 95 93 L 95 05/12/18 08:00 Temperature 97.5 F L Pulse Rate 56 L Respiratory Rate 18 Blood Pressure 141/65 H Pulse Oximetry 95 Intake & Output 05/11/18 05/12/18 05/12/18 18:59 06:59 18:59 Intake Total 580 / 580 672.5 / 672.5 100 / 100 Output Total 1200 / 1200 Balance -620 / -620 672.5 / 672.5 100 / 100 Intake: IV 100 / 100 462.5 / 462.5 100 / 100 Zerbaxa Inj 1,500 MG In NS Inj 100 / 100 200 / 200 100 / 100 100 ML @ 100 mls/hr IV.SIG Q8H [facility] Rx#:[id number] Vancomycin Inj 1,250 MG In NS 262.5 / 262.5 Inj 250 ML @ 262.5 mls/hr IV. SIG Q18H ACE Rx#:[id number] Oral 480 / 480 210 / 210 Output: Urine 1200 / 1200 Other: # Voids 1 Date of Last Bowel Movement 05/10/18 05/10/18 <Ayo Miranda - 05/12/18 11:35> Vital Signs 05/10/18 14:05 05/10/18 16:00 05/10/18 20:00 Temperature 97.6 F Pulse Rate 59 L 60 Respiratory Rate 18 20 Blood Pressure 154/69 H Pulse Oximetry 97 05/10/18 22:31 05/11/18 00:00 05/11/18 01:38 Temperature 97.8 F Pulse Rate 58 L Respiratory Rate 18 20 18 Blood Pressure 138/63 Pulse Oximetry 95 05/11/18 04:00 05/11/18 08:00 05/11/18 08:20 Temperature 97.5 F L 97.1 F L Pulse Rate 59 L 67 55 L Respiratory Rate 18 13 Blood Pressure 151/69 H 127/61 Pulse Oximetry 93 L 96 Intake & Output 05/10/18 05/11/18 05/11/18 18:59 06:59 18:59 Intake Total 462.5 / 462.5 1333.5 / 1333.5 100 / 100 Output Total 2400 / 2400 2800 / 2800 Balance -1937.5 / -1937.5 -1466.5 / -1466.5 100 / 100 Intake: IV 462.5 / 462.5 362.5 / 362.5 100 / 100 Zerbaxa Inj 1,500 MG In NS Inj 200 / 200 100 / 100 100 / 100 100 ML @ 100 mls/hr IV.SIG Q8H ACE Rx#:[id number] Vancomycin Inj 1,250 MG In NS 262.5 / 262.5 262.5 / 262.5 Inj 250 ML @ 262.5 mls/hr IV. SIG Q18H ACE Rx#:[id number] Oral 221 / 221 Anesthesia Amount 500 / 500 Other 250 / 250 Output: Estimated Blood Loss 150 / 150 Urine Amount (Catheter) 2400 / 2400 2650 / 2650 Condom 2400 / 2400 2049 / 2049 Indwelling Urethral Catheter 600 / 600 Other: # Incontinent Voids 0 Date of Last Bowel Movement 05/10/18 05/10/18 05/10/18 # Bowel Movements 0 # Incontinent Bowel Movements 1 <Sakshi Garza D - 05/11/18 14:24> Narrative: GENERAL: Pleasant elderly male thin, appears malnourished. Alert to person and place but not time. SKIN: Cool and dry. No generalized rash. Has some scattered ecchymoses in his UE. HEAD: Atraumatic. Normocephalic. No temporal wasting, or tenderness. EYES: Anisocoria and left eye, EOMI CARDIOVASCULAR: Regular rate and rhythm. No murmurs, rubs or gallops heard RESPIRATORY: Clear to auscultation. Breath sounds equal bilaterally. No rales , wheezing or rhonchi ABDOMEN: Soft, non-tender, nondistended. No guarding. No rebound. No organomegaly. EXTREMITIES: No edema. Atrophic muscular changes in both legs bilaterally. Right heel covered in bandage. Left foot bandage dry and clean. Patient also has wound on right thigh that is bandaged. Dressing in place,clean and dry. Dressing removed and wound minimal serious sanguinous oozing no erythema surrounding the incision, healing well. Patient able to move toes bilaterally and no decreased sensation. Sacral DTI wound inspected, stable, minimal drainage noted on bed pad. <CaljunitoSakshi D - 05/11/18 14:24> - Urinary Catheter Management Condom Cath placed during this visit: no <RuthAyo R - 05/12/18 11:35> no <CalzadoSakshi D - 05/11/18 14:24> Reason for continuing: Not indwelling catheter <CalzadoSakshi D - 05/11/18 14: 24> Indwelling Urethral Catheter Cath placed during this visit: no <Ayo Miranda R - 05/12/18 11:35> yes, but has since been removed by the nurse <RashadzadoSakshi D - 05/11/18 14:24> Reason for continuing: Not indwelling catheter <CalzadoSakshi D - 05/11/18 14: 24> Insertion date: 04/11/18 <CalzadoSakshi D - 05/11/18 14:24> Insertion time: 21:08 <CalzadoSakshi D - 05/11/18 14:24> Removal date: 04/12/18 <Calzado,Sakshi D - 05/11/18 14:24> Removal time: 11:35 <Calzado,Sakshi D - 05/11/18 14:24> Straight Cath placed during this visit: no <OsazAyo R - 05/12/18 11:35> yes <Calzado,Sakshi D - 05/11/18 14:24> Reason for continuing: Other continuation reason <CalzadoSakshi D - 05/11/18 14:24> Insertion date: 04/11/18 <Sakshi Garza D - 05/11/18 14:24> Insertion time: 21:08 <Sakshi Garza D - 05/11/18 14:24> Assessment and Plan - Assessment (1) Osteomyelitis of ankle Code(s): M86.9 - Osteomyelitis, unspecified Status: Acute (2) Anemia Code(s): D64.9 - Anemia, unspecified Status: Acute (3) Infection associated with internal hip prosthesis Code(s): T84.59XA - Infection and inflammatory reaction due to other internal joint prosthesis, initial encounter; Z96.649 - Presence of unspecified artificial hip joint Status: Acute (4) Chronic wound of extremity Status: Chronic (5) MRSA (methicillin resistant staph aureus) culture positive Code(s): Z22.322 - Carrier or suspected carrier of Methicillin resistant Staphylococcus aureus Status: Acute (6) PAD (peripheral artery disease) Code(s): I73.9 - Peripheral vascular disease, unspecified Status: Chronic (7) Bandemia Code(s): D72.825 - Bandemia Status: Resolved (8) Hydronephrosis Code(s): N13.30 - Unspecified hydronephrosis Status: Acute (9) HTN (hypertension) Code(s): I10 - Essential (primary) hypertension Status: Acute (10) Diabetes Code(s): E11.9 - Type 2 diabetes mellitus without complications Status: Acute (11) Malnutrition Code(s): E46 - Unspecified protein-calorie malnutrition Status: Acute (12) Anisocoria Code(s): H57.02 - Anisocoria Status: Acute (13) Suicidal ideation Code(s): R45.851 - Suicidal ideations Status: Acute (14) Nutrition, metabolism, and development symptoms Code(s): R63.8 - Other symptoms and signs concerning food and fluid intake Status: Acute <Ayo Miranda - 05/12/18 11:35> (1) Osteomyelitis of ankle Code(s): M86.9 - Osteomyelitis, unspecified Status: Acute Plan: MRI showed evidence of osteomyelitis of right ankle which likely has been brewing for some time in this diabetic patient with PAD with chronic lower- extremity non-healing ulcers Culture positive for MRSA at different site (right thigh wound) Wound Cx of right ankle showed Pseudomonas as well as multidrug-resistant Proteus and group D enterococcus Blood cultures NGTD Podiatry consulted, appreciate assistance; * plan for patient to have calcanectomy on 04/26 however due to patient's inability to recall presurgery discussion when seen by podiatry the morning of 04/26 Dr. Urena will no longer be performing calcanectomy procedure. * Recommends: betadine wet to dry daily and if foot/heel becomes acutely infected rec as patient is unable to care for himself or able to mentally process limb salvage procedure options. In addition, the likelihood of failure was already high due to the low vascularity to the right lower limb. * Podiatry has signed off. 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 Right popliteal pulse appreciated on exam * ID consulted, appreciate recs * Continue vancomycin--until Jun 07, 6 weeks after hardware removal for the R hip * Continue Zerbaxa--for the heel ulcer and osteo due to resistance of organisms * Patient would like another antibiotic rec than Zerbaxa in order for him to be able to be discharge to senior living * Wound care consulted, appreciate recs * See note from 04/25 * follow recommendations * Pain management with Mallard scheduled, gabapentin, morphine for breakthrough pain (2) Anemia Code(s): D64.9 - Anemia, unspecified Status: Acute Plan: On admission on 04/11 patient found to have hemoglobin of 6.6 and transfused 2 units of packed RBC. Also had tarry stools and underwent endoscopy and colonoscopy which were benign except small ulcer in the rectum. Placed on PPI and iron. H and H trended -04/29 Hbg 6.5 down from 7.5 -transfused one unit of PRBC repeat H/H 04/30 6.1 -Order for additional unit of PRBC and H/H. Repeat H/H 6.6. Two additional units ordered based on critical care physician recommendations -Transferred to ICU; once patient's hemoglobin improved and asymptomatic transferred back to the floor. -CT abdomen: two non obstructive kidney stones and some constipation -Consulted ortho: Bleeding possibly from femoral canal. During procedure box was not used because of patient's response to previous hardware. Dr. Muñoz stated that hemoglobin should stabilize and that the bleeding could continue for up to 2 weeks after the procedure. 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 The collection appears to communicate with the prosthetic component in the proximal femur. -. Edematous changes are noted along the vastus lateralis and iliotibial band. -Patient spiked fever on 04/28: BCX no growth to date Follow wound care recommendations for care Orthopedic consultation: 04/27 irrigation and debridement with hardware removal and placement of antibiotic beads Recommendation: "TTWB RLE and Dressing changes daily and as needed. Incisions will have drainage for likely several days to even couple of weeks as antibiotic beads were placed along with removal of hardware and debridement of the femur leaving an open femoral canal. This should slowly stop over several days to weeks. Dressing changes as needed.Antibiotics per ID for chronic osteomyelitis. Plan for patient to follow-up in my office in 2 weeks" Right hip wound healing well (4) Chronic wound of extremity Status: Chronic Plan: Patient currently follows up with wound care as an outpatient Right hip wound, super observant dressing daily Skin tear lower left extremity, Santyl covered and dry dressing daily Right heel wound, apply gentamicin cream twice daily, see above plan for associated osteomyelitis Wound care consulted, appreciate recommendations * Cleanse wound to R Achilles heel with normal saline only and pat dry. Apply gentamicin mixed with Santyl 50/ 50 and apply to wound bed * Cover with ABD pad, and secure with rolled gauze and tape. Change dressing daily, until seen by podiatry. * Cleanse wound to R hip see updated note from 04/25 and follow ortho rec for dressing * Cleanse wound to L posterior lower leg with normal saline and pat dry. Apply optifoam gentle 4x4 dressing change dressing every 3 days or PRN if saturated or dislodged. * Sacral wound: -Please cleanse sacral area gently with Remedy barrier wipes and pat dry. Apply Cavilon skin barrier film spray to sacral area BID and PRN and leave open to air. -Turn and reposition patient every 2 hours from L to R side limiting time spent on back to P.T. and meals -Patient placed on low airloss bed/ mattress -Will try to get in contact with wound care for re-evaluation of sacral wound , stable on exam (5) MRSA (methicillin resistant staph aureus) culture positive Code(s): Z22.322 - Carrier or suspected carrier of Methicillin resistant Staphylococcus aureus Status: Acute Plan: This patient suffers from chronic nonhealing wounds likely secondary to peripheral arterial disease and DM. Patient had wound from right thigh cultured which ultimately grew MRSA. -Monitor for fevers and signs of systemic illness -Antibiotic therapy as above (6) PAD (peripheral artery disease) Code(s): I73.9 - Peripheral vascular disease, unspecified Status: Chronic Plan: s/p recent right LE arterectomy. s/p vascular procedure as above on 04/24 (7) Bandemia Code(s): D72.825 - Bandemia Status: Resolved Plan: Resolved, likely due to osteomyelitis. See above plan. (8) Hydronephrosis Code(s): N13.30 - Unspecified hydronephrosis Status: Acute Plan: Abdominal pelvis CT demonstrates development of moderate left hydronephrosis and hydroureter without ureteral obstruction. Also demonstrates stool ball in the rectum large amount of stool throughout the colon. Patient had a bladder scan 04/11 that revealed of a residual volume of 231 mL. Patient currently voiding well. Patient has no CVA tenderness. Hammer in place UA on 04/26 : negative for infection - Continue to monitor I's and O's. (9) HTN (hypertension) Code(s): I10 - Essential (primary) hypertension Status: Acute Plan: Continue Cardizem and amiodarone (10) Diabetes Code(s): E11.9 - Type 2 diabetes mellitus without complications Status: Acute Plan: Held home glipizide, Januvia Accu-Cheks Low-dose sliding scale Hypoglycemia protocol in place (11) Malnutrition Code(s): E46 - Unspecified protein-calorie malnutrition Status: Acute Plan: This patient appears thin and possibly malnourished. Patient has significant muscle atrophy in arms and legs that are partially consistent with age and lack of activity. -Begin diet supplementation with Ensure (12) Anisocoria Code(s): H57.02 - Anisocoria Status: Acute Plan: Most likely chronic in view of no other alarming ophthalmologic signs/symptoms Can follow up with Ophthalmology outpatient (13) Suicidal ideation Code(s): R45.851 - Suicidal ideations Status: Acute Plan: Nurse reported that this morning patient express fluctuating suicidal ideation and refusal of taking his medications. However, his mood improved later on in the morning. When I saw patient he did not mentioned any SI and appeared in good spirits making jokes. Patient started on citalopram 10 mg daily We will continue to assess psych status daily. (14) Nutrition, metabolism, and development symptoms Code(s): R63.8 - Other symptoms and signs concerning food and fluid intake Status: Acute Plan: Fluids: per PO Diet: Diabetic supplements with protein shake Electrolytes: monitor and replete as needed DVT prophylaxis: Contraindicated due to upper GI bleed Disposition: SNF not taking patient at this time due to cost of Zerbaxa <Sakshi Garza - 05/11/18 13:57> - Attending Attestation This patient was seen and evaluated with the resident physician. I agree with the plan of care as discussed with me and documented in the resident note. Ayo Miranda MD <Ayo Miranda - 05/12/18 11:35> <Sakshi Garza - Last Filed: 05/11/18 13:57> (1) Osteomyelitis of ankle Qualifiers: Osteomyelitis type: other chronic Laterality: right Qualified Code(s): M86.671 - Other chronic osteomyelitis, right ankle and foot (8) Hydronephrosis Qualifiers: Hydronephrosis type: unspecified Qualified Code(s): N13.30 - Unspecified hydronephrosis <Ayo Miranda R - Last Filed: 05/12/18 11:35> (1) Osteomyelitis of ankle Qualifiers: Osteomyelitis type: other chronic Laterality: right Qualified Code(s): M86.671 - Other chronic osteomyelitis, right ankle and foot (8) Hydronephrosis Qualifiers: Hydronephrosis type: unspecified Qualified Code(s): N13.30 - Unspecified hydronephrosis <Sakshi Garza D - Last Filed: 05/11/18 13:57> (1) Osteomyelitis of ankle Qualifiers: Osteomyelitis type: other chronic Laterality: right Qualified Code(s): M86.671 - Other chronic osteomyelitis, right ankle and foot (8) Hydronephrosis Qualifiers: Hydronephrosis type: unspecified Qualified Code(s): N13.30 - Unspecified hydronephrosis <Ayo Miranda R - Last Filed: 05/12/18 11:35> (1) Osteomyelitis of ankle Qualifiers: Osteomyelitis type: other chronic Laterality: right Qualified Code(s): M86.671 - Other chronic osteomyelitis, right ankle and foot (8) Hydronephrosis Qualifiers: Hydronephrosis type: unspecified Qualified Code(s): N13.30 - Unspecified hydronephrosis
[2018-05-12] MEDS: CEFTOLOZANE IV.SIG SCH ×3 (00:07→17:54)
[2018-05-12] MEDS: SODIUM CHLOR 0.9% IV.SIG SCH ×3 (00:07→17:54)
[2018-05-12] MEDS: TAZOBACTAM IV.SIG SCH ×3 (00:07→17:54)
[2018-05-12] MEDS: Levothyroxine 125 MCG Tablet PO SCH (06:22)
[2018-05-12 07:45] LABS: Baso # (Auto) 0.3 th/mm3 (0.0-0.2); Baso % (Auto) 3.1 % (0.0-2.0); Eos # (Auto) 1.1 th/mm3 (0.0-0.4); Eos % (Auto) 11.2 % (0.0-4.0); Hematocrit 28.4 % (39.0-51.0); Hemoglobin 9.2 gm/dL (13.0-17.0); Lymph # (Auto) 1.4 th/mm3 (1.0-4.8); Lymph % (Auto) 14.3 % (9.0-44.0); Mean Corpuscular HGB Conc 32.4 % (32.0-36.0); Mean Corpuscular Hemoglobin 30.1 pg (27.0-34.0); Mean Corpuscular Volume 92.9 fL (80.0-100.0); Mean Platelet Volume 7.4 fL (7.0-11.0); Mono # (Auto) 0.9 th/mm3 (0.0-0.9); Mono % (Auto) 9.5 % (0.0-8.0); Neut # (Auto) 6.2 th/mm3 (1.8-7.7); Neut % (Auto) 61.9 % (16.0-70.0); Platelet Count 395 th/mm3 (150-450); Red Blood Count 3.06 mil/mm3 (4.50-5.90); Red Cell Distribution Width 21.9 % (11.6-17.2)
[2018-05-12 07:59] LABS: Anion Gap 7 meq/L (5-15); Blood Urea Nitrogen 13 mg/dL (7-18); Calcium 7.9 mg/dL (8.5-10.1); Carbon Dioxide 24.6 meq/L (21.0-32.0); Chloride 101 meq/L (98-107); Glomerular Filtration Rate Greater Than 89 mL/min (>89); Glucose,Random 119 mg/dL (74-106); Potassium 4.6 meq/L (3.5-5.1); Sodium 133 meq/L (136-145)
[2018-05-12] MEDS: Ferrous Sulfate 325 MG Tablet PO SCH ×3 (08:57→17:54)
[2018-05-12] MEDS: Citalopram 20 MG Tablet PO SCH (08:57)
[2018-05-12] MEDS: Amiodarone 200 MG Tablet PO SCH (08:57)
[2018-05-12] MEDS: Docusate Sodium 100 MG Capsule PO SCH ×2 (08:57→21:26)
[2018-05-12] MEDS: Insulin NovoLOG Aspart Correctional Sugar Inj SQ SCH ×4 (08:57→21:27)
[2018-05-12] MEDS: Gabapentin 300 MG Capsule PO SCH ×3 (08:58→17:54)
[2018-05-12] MEDS: Magnesium Oxide 400 MG Tablet PO SCH ×4 (08:58→21:26)
[2018-05-12] MEDS: Potassium Phos/Sodium Phos 250 MG Tablet PO SCH ×4 (08:58→21:26)
[2018-05-12] MEDS: Ascorbic Acid 500 MG Tablet PO SCH ×2 (08:58→21:26)
[2018-05-12] MEDS: Polyethylene Glycol 3350 17 GM Packet PO SCH (08:58)
[2018-05-12] MEDS: Sodium Chloride 1 GM Tablet PO SCH ×3 (08:59→17:54)
[2018-05-12] MEDS: Gentamicin 0.1% Cream 15 GM Cream TOPICAL SCH ×2 (09:04→21:28)
[2018-05-12] MEDS: Collagenase Oint 30 GM Tube TOPICAL SCH (09:04)
--- NOTE | 2018-05-12 11:42 | P.PNFP ---
Subjective Interval history: Patient seen and examined this morning. Patient endorses continued pain in his right leg. Improving. Controlled with pain medication. Denies nausea, vomiting, fever, chills, don pain, chest pain, shortness of breath, lightheadedness, dizziness, change in vision, change in urination, change in bowel movement. No other complaints today. <Saji Richard - 05/12/18 12:08> Results - Labs Result diagrams: 05/13/18 05:08 05/13/18 05:08 <Ayo Miranda - 05/13/18 10:10> Abnormal lab results 05/12/18 05/12/18 05/12/18 Range/Units 13:02 17:56 21:25 RBC (4.50-5.90) mil/mm3 Hgb (13.0-17.0) gm/dL Hct (39.0-51.0) % RDW (11.6-17.2) % [place] % (Auto) (0.0-8.0) % Eos % (Auto) (0.0-4.0) % Baso % (Auto) (0.0-2.0) % [place] # (Auto) (0.0-0.9) th/mm3 Eos # (Auto) (0.0-0.4) th/mm3 Baso # (Auto) (0.0-0.2) th/mm3 Sodium (136-145) meq/L Chloride (98-107) meq/L POC Glucose 148 H 164 H 249 H (68-110) mg/dl Random Glucose (74-106) mg/dL Calcium (8.5-10.1) mg/dL 05/13/18 05/13/18 05/13/18 Range/Units 05:08 05:08 08:45 RBC 3.05 L (4.50-5.90) mil/mm3 Hgb 9.3 L (13.0-17.0) gm/dL Hct 28.1 L (39.0-51.0) % RDW 21.5 H (11.6-17.2) % [place] % (Auto) 9.9 H (0.0-8.0) % Eos % (Auto) 12.0 H (0.0-4.0) % Baso % (Auto) 2.5 H (0.0-2.0) % [place] # (Auto) 1.0 H (0.0-0.9) th/mm3 Eos # (Auto) 1.2 H (0.0-0.4) th/mm3 Baso # (Auto) 0.3 H (0.0-0.2) th/mm3 Sodium 132 L (136-145) meq/L Chloride 97 L (98-107) meq/L POC Glucose 168 H (68-110) mg/dl Random Glucose 142 H (74-106) mg/dL Calcium 8.1 L (8.5-10.1) mg/dL Short CBC 05/13/18 Range/Units 05:08 WBC 10.0 (4.0-11.0) th/mm3 Hgb 9.3 L (13.0-17.0) gm/dL Hct 28.1 L (39.0-51.0) % Plt Count 417 (150-450) th/mm3 BMP 05/13/18 05:08 Sodium 132 L Potassium 4.7 Chloride 97 L Carbon Dioxide 27.5 BUN 14 Creatinine 0.65 Calcium 8.1 L <Ayo Miranda R - 05/13/18 10:10> Abnormal lab results 05/11/18 05/11/18 05/11/18 Range/Units 12:46 17:50 21:35 RBC (4.50-5.90) mil/mm3 Hgb (13.0-17.0) gm/dL Hct (39.0-51.0) % RDW (11.6-17.2) % [place] % (Auto) (0.0-8.0) % Eos % (Auto) (0.0-4.0) % Baso % (Auto) (0.0-2.0) % Eos # (Auto) (0.0-0.4) th/mm3 Baso # (Auto) (0.0-0.2) th/mm3 Sodium (136-145) meq/L POC Glucose 161 H 183 H 176 H (68-110) mg/dl Random Glucose (74-106) mg/dL Calcium (8.5-10.1) mg/dL 05/12/18 05/12/18 05/12/18 Range/Units 06:00 06:00 08:57 RBC 3.06 L (4.50-5.90) mil/mm3 Hgb 9.2 L (13.0-17.0) gm/dL Hct 28.4 L (39.0-51.0) % RDW 21.9 H (11.6-17.2) % [place] % (Auto) 9.5 H (0.0-8.0) % Eos % (Auto) 11.2 H (0.0-4.0) % Baso % (Auto) 3.1 H (0.0-2.0) % Eos # (Auto) 1.1 H (0.0-0.4) th/mm3 Baso # (Auto) 0.3 H (0.0-0.2) th/mm3 Sodium 133 L (136-145) meq/L POC Glucose 127 H (68-110) mg/dl Random Glucose 119 H (74-106) mg/dL Calcium 7.9 L (8.5-10.1) mg/dL Short CBC 05/12/18 Range/Units 06:00 WBC 10.0 (4.0-11.0) th/mm3 Hgb 9.2 L (13.0-17.0) gm/dL Hct 28.4 L (39.0-51.0) % Plt Count 395 (150-450) th/mm3 BMP 05/12/18 06:00 Sodium 133 L Potassium 4.6 Chloride 101 Carbon Dioxide 24.6 BUN 13 Creatinine 0.61 Calcium 7.9 L <Jose ManuelEladio - 05/12/18 11:42> Physical Exam Vital signs: Vital Signs 05/12/18 12:00 05/12/18 16:00 05/12/18 20:00 Temperature 97.7 F 97.2 F L 97.1 F L Pulse Rate 60 61 58 L Respiratory Rate 18 18 20 Blood Pressure 128/60 146/67 H 131/66 Pulse Oximetry 97 97 96 05/13/18 00:00 05/13/18 04:00 05/13/18 07:42 Temperature 98.4 F 98.2 F Pulse Rate 58 L 61 Respiratory Rate 18 18 17 Blood Pressure 147/79 H 139/88 Pulse Oximetry 95 96 05/13/18 08:00 Temperature 97.1 F L Pulse Rate 79 Respiratory Rate 18 Blood Pressure 113/56 L Pulse Oximetry 96 Intake & Output 05/12/18 05/13/18 05/13/18 18:59 06:59 18:59 Intake Total 922.5 / 922.5 1110 / 1110 Output Total 1999 1450 / 1450 Balance -1077.5 / -1077.5 -340 / -340 Weight 78.2 kg Intake: IV 362.5 / 362.5 200 / 200 Zerbaxa Inj 1,500 MG In NS Inj 100 / 100 200 / 200 100 ML @ 100 mls/hr IV.SIG Q8H ACE Rx#:[id number] Vancomycin Inj 1,250 MG In NS 262.5 / 262.5 Inj 250 ML @ 262.5 mls/hr IV. SIG Q18H ACE Rx#:[id number] Oral 560 / 560 910 / 910 Output: Urine 1450 / 1450 Urine Amount (Catheter) 1999 Condom 1999 Other: Date of Last Bowel Movement 05/13/18 05/13/18 # Bowel Movements 1 <Ayo Miranda R - 05/13/18 10:10> Vital Signs 05/11/18 12:00 05/11/18 12:10 05/11/18 16:00 Temperature 97.6 F 98.1 F Pulse Rate 61 62 64 Respiratory Rate 15 14 Blood Pressure 117/59 L 136/65 Pulse Oximetry 97 97 05/11/18 20:00 05/12/18 00:00 05/12/18 04:00 Temperature 97.8 F 97.7 F 98.2 F Pulse Rate 61 62 60 Respiratory Rate 18 18 18 Blood Pressure 137/61 130/60 125/60 Pulse Oximetry 95 93 L 95 05/12/18 08:00 Temperature 97.5 F L Pulse Rate 56 L Respiratory Rate 18 Blood Pressure 141/65 H Pulse Oximetry 95 Intake & Output 05/11/18 05/12/18 05/12/18 18:59 06:59 18:59 Intake Total 580 / 580 672.5 / 672.5 100 / 100 Output Total 1200 / 1200 Balance -620 / -620 672.5 / 672.5 100 / 100 Intake: IV 100 / 100 462.5 / 462.5 100 / 100 Zerbaxa Inj 1,500 MG In NS Inj 100 / 100 200 / 200 100 / 100 100 ML @ 100 mls/hr IV.SIG Q8H ACE Rx#:[id number] Vancomycin Inj 1,250 MG In NS 262.5 / 262.5 Inj 250 ML @ 262.5 mls/hr IV. SIG Q18H ACE Rx#:[id number] Oral 480 / 480 210 / 210 Output: Urine 1200 / 1200 Other: # Voids 1 Date of Last Bowel Movement 05/10/18 05/10/18 <Saji Richard 05/12/18 11:42> Narrative: GENERAL: Pleasant elderly male thin, appears malnourished. Alert to person and place but not time. SKIN: Cool and dry. No generalized rash. HEAD: Atraumatic. Normocephalic. No temporal wasting, or tenderness. EYES: Anisocoria, larger left pupil, EOMI CARDIOVASCULAR: Regular rate and rhythm. RESPIRATORY: Clear to auscultation. Breath sounds equal bilaterally. No rales , wheezing or rhonchi ABDOMEN: Soft, non-tender, nondistended. No guarding. No rebound. No organomegaly. EXTREMITIES: No edema. Atrophic muscular changes in both legs bilaterally. Patient able to move toes bilaterally and no decreased sensation. <Saji Richard 05/12/18 12:08> - Urinary Catheter Management Condom Cath placed during this visit: no <Ayo Miranda 05/13/18 10:10> no <Saji Richard 05/12/18 14:10> Reason for continuing: Not indwelling catheter <Saji Richard 05/12/18 11 :42> Indwelling Urethral Catheter Cath placed during this visit: no <Ayo Miranda 05/13/18 10:10> yes, but has since been removed by the nurse <Saji Richard 05/12/18 14:10> Reason for continuing: Not indwelling catheter <Saji Richard 05/12/18 11 :42> Insertion date: 04/11/18 <Saji Richard 05/12/18 11:42> Insertion time: 21:08 <Saji Richard 05/12/18 11:42> Removal date: 04/12/18 <Saji Richard 05/12/18 11:42> Removal time: 11:35 <Saji Richard 05/12/18 11:42> Straight Cath placed during this visit: no <Ayo Miranda 05/13/18 10:10> yes <Saji Richard - 05/12/18 14:10> Reason for continuing: Other continuation reason <Saji Richard 05/12/18 11:42> Insertion date: 04/11/18 <Saji Richard 05/12/18 11:42> Insertion time: 21:08 <Saji Richard 05/12/18 11:42> Assessment and Plan - Assessment (1) Osteomyelitis of ankle Code(s): M86.9 - Osteomyelitis, unspecified Status: Acute (2) Anemia Code(s): D64.9 - Anemia, unspecified Status: Acute (3) Infection associated with internal hip prosthesis Code(s): T84.59XA - Infection and inflammatory reaction due to other internal joint prosthesis, initial encounter; Z96.649 - Presence of unspecified artificial hip joint Status: Acute (4) Chronic wound of extremity Status: Chronic (5) MRSA (methicillin resistant staph aureus) culture positive Code(s): Z22.322 - Carrier or suspected carrier of Methicillin resistant Staphylococcus aureus Status: Acute (6) PAD (peripheral artery disease) Code(s): I73.9 - Peripheral vascular disease, unspecified Status: Chronic (7) Bandemia Code(s): D72.825 - Bandemia Status: Resolved (8) Hydronephrosis Code(s): N13.30 - Unspecified hydronephrosis Status: Resolved (9) HTN (hypertension) Code(s): I10 - Essential (primary) hypertension Status: Acute (10) Diabetes Code(s): E11.9 - Type 2 diabetes mellitus without complications Status: Acute (11) Malnutrition Code(s): E46 - Unspecified protein-calorie malnutrition Status: Acute (12) Anisocoria Code(s): H57.02 - Anisocoria Status: Acute (13) Suicidal ideation Code(s): R45.851 - Suicidal ideations Status: Acute (14) Nutrition, metabolism, and development symptoms Code(s): R63.8 - Other symptoms and signs concerning food and fluid intake Status: Acute <Ayo Miranda 05/13/18 10:10> (1) Osteomyelitis of ankle Code(s): M86.9 - Osteomyelitis, unspecified Status: Acute Plan: Osteomyelitis of right ankle, culture positive for MRSA of right thigh wound. Wound culture of right ankle shows Pseudomonas and multidrug resistant Proteus as well as group D enterococcus. -Bcx NGTD Podiatry had been consulted, recommended below-knee amputation, patient refused , podiatry history below Vascular surgery consulted * s/p REHABILITATION MEDICINE PHYSICIAN of popliteal stenosis on 04/24 * Anterior tibial, posterior tibia and peritoneal artery occluded Lower extremity pulses appreciated Via Doppler. Right popliteal pulse appreciated on exam ID consulted, appreciate recs * Continue vancomycin--until Jun 07, 6 weeks after hardware removal for the R hip * Continue Zerbaxa--for the heel ulcer and osteo due to resistance of organisms Wound care consulted, appreciate recs * See note from 04/25 * follow recommendations * Pain management with [place] scheduled, gabapentin, morphine for breakthrough pain Podiatry history; * plan for patient to have calcanectomy on 04/26 however due to patient's inability to recall presurgery discussion when seen by podiatry the morning of 04/26 Dr. Urena will no longer be performing calcanectomy procedure. * Recommends: betadine wet to dry daily and if foot/heel becomes acutely infected rec as patient is unable to care for himself or able to mentally process limb salvage procedure options. In addition, the likelihood of failure was already high due to the low vascularity to the right lower limb. * Podiatry has signed off. * Discussed option of below-knee amputation of right lower extremity and Patient still not interested (2) Anemia Code(s): D64.9 - Anemia, unspecified Status: Acute Plan: On admission found to have hemoglobin of 6.6, status post 2 units RBCs transfused. Had tarry stools, endoscopy and colonoscopy benign other than small ulcer in rectum. Hemoglobin stable. -Trend H/H (3) Infection associated with internal hip prosthesis Code(s): T84.59XA - Infection and inflammatory reaction due to other internal joint prosthesis, initial encounter; Z96.649 - Presence of unspecified artificial hip joint Status: Acute Plan: Found to have right hip prosthesis infection. Irrigation, debridement, hardware removal and placement of antibiotic beads (04/27). -Orthopedics consulted, appreciate recommendations -Recommend 2-week follow-up, antibiotics per ID for chronic osteomyelitis (4) Chronic wound of extremity Status: Chronic Plan: Patient currently follows up with wound care as an outpatient Wound management: Right hip wound, super absorbant dressing daily Skin tear lower left extremity, Santyl covered and dry dressing daily Right heel wound, apply gentamicin cream twice daily, see above plan for associated osteomyelitis Wound care consulted, appreciate recommendations * Cleanse wound to R Achilles heel with normal saline only and pat dry. Apply gentamicin mixed with Santyl 50/ 50 and apply to wound bed * Cover with ABD pad, and secure with rolled gauze and tape. Change dressing daily, until seen by podiatry. * Cleanse wound to R hip see updated note from 04/25 and follow ortho rec for dressing * Cleanse wound to L posterior lower leg with normal saline and pat dry. Apply optifoam gentle 4x4 dressing change dressing every 3 days or PRN if saturated or dislodged. * Sacral wound: -Please cleanse sacral area gently with Remedy barrier wipes and pat dry. Apply Cavilon skin barrier film spray to sacral area BID and PRN and leave open to air. -Turn and reposition patient every 2 hours from L to R side limiting time spent on back to P.T. and meals -Patient placed on low airloss bed/ mattress -Will try to get in contact with wound care for re-evaluation of sacral wound , stable on exam (5) MRSA (methicillin resistant staph aureus) culture positive Code(s): Z22.322 - Carrier or suspected carrier of Methicillin resistant Staphylococcus aureus Status: Acute Plan: This patient suffers from chronic nonhealing wounds likely secondary to peripheral arterial disease and DM. Patient had wound from right thigh cultured which ultimately grew MRSA. -Monitor for fevers and signs of systemic illness -Antibiotic therapy as above (6) PAD (peripheral artery disease) Code(s): I73.9 - Peripheral vascular disease, unspecified Status: Chronic Plan: s/p recent right LE arterectomy. s/p vascular procedure as above on 04/24 (7) Bandemia Code(s): D72.825 - Bandemia Status: Resolved Plan: Resolved, likely due to osteomyelitis. See above plan. (8) Hydronephrosis Code(s): N13.30 - Unspecified hydronephrosis Status: Resolved Plan: Left hydronephrosis and hydroureter without obstruction on CT (04/11). Currently voiding well, no CVA tenderness. UA (-)04/26. Not noted on CT on . - Continue to monitor I's and O's. (9) HTN (hypertension) Code(s): I10 - Essential (primary) hypertension Status: Acute Plan: Continue Cardizem and amiodarone (10) Diabetes Code(s): E11.9 - Type 2 diabetes mellitus without complications Status: Acute Plan: Hx of DM -Held home glipizide, Januvia -Accu-Cheks -Low-dose sliding scale -Hypoglycemia protocol in place (11) Malnutrition Code(s): E46 - Unspecified protein-calorie malnutrition Status: Acute Plan: This patient appears thin and possibly malnourished. Patient has significant muscle atrophy in arms and legs that are partially consistent with age and lack of activity. 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 Patient unsure of specific cause or diagnoses. Can follow up with Ophthalmology outpatient as needed (13) Suicidal ideation Code(s): R45.851 - Suicidal ideations Status: Acute Plan: Nurse reported that patient expressed fluctuating suicidal ideation and refusal of taking his medications om 05/11. His mood improved later on in the morning. Denies SI/HI -Citalopram 10 mg daily -Continue to assess status (14) Nutrition, metabolism, and development symptoms Code(s): R63.8 - Other symptoms and signs concerning food and fluid intake Status: Acute Plan: Fluids: per PO Diet: Diabetic supplements with protein shake Electrolytes: monitor and replete as needed DVT prophylaxis: Contraindicated due to upper GI bleed Disposition: SNF not taking patient at this time due to cost of Zerbaxa <Saji Richard - 05/12/18 13:42> - Attending Attestation This patient was evaluated with the resident physician. I agree with the plan of care as discussed with me and documented in the resident note. Ayo Miranda MD <Ayo Miranda - 05/13/18 10:10> <Saji Richard - Last Filed: 05/12/18 13:42> (1) Osteomyelitis of ankle Qualifiers: Osteomyelitis type: other chronic Laterality: right Qualified Code(s): M86.671 - Other chronic osteomyelitis, right ankle and foot (8) Hydronephrosis Qualifiers: Hydronephrosis type: unspecified Qualified Code(s): N13.30 - Unspecified hydronephrosis <Ayo Miranda R - Last Filed: 05/13/18 10:10> (1) Osteomyelitis of ankle Qualifiers: Osteomyelitis type: other chronic Laterality: right Qualified Code(s): M86.671 - Other chronic osteomyelitis, right ankle and foot (8) Hydronephrosis Qualifiers: Hydronephrosis type: unspecified Qualified Code(s): N13.30 - Unspecified hydronephrosis <Saji Richard - Last Filed: 05/12/18 13:42> (1) Osteomyelitis of ankle Qualifiers: Osteomyelitis type: other chronic Laterality: right Qualified Code(s): M86.671 - Other chronic osteomyelitis, right ankle and foot (8) Hydronephrosis Qualifiers: Hydronephrosis type: unspecified Qualified Code(s): N13.30 - Unspecified hydronephrosis <Ayo Miranda - Last Filed: 05/13/18 10:10> (1) Osteomyelitis of ankle Qualifiers: Osteomyelitis type: other chronic Laterality: right Qualified Code(s): M86.671 - Other chronic osteomyelitis, right ankle and foot (8) Hydronephrosis Qualifiers: Hydronephrosis type: unspecified Qualified Code(s): N13.30 - Unspecified hydronephrosis
[2018-05-12] MEDS: Vancomycin Inj 1,250 MG in Sodium Chlor 0.9% Inj 250 ML IV.SIG SCH (14:19)
[2018-05-13] MEDS: TAZOBACTAM IV.SIG SCH ×3 (01:24→17:48)
[2018-05-13] MEDS: SODIUM CHLOR 0.9% IV.SIG SCH ×3 (01:24→17:48)
[2018-05-13] MEDS: CEFTOLOZANE IV.SIG SCH ×3 (01:24→17:48)
[2018-05-13] MEDS: Levothyroxine 125 MCG Tablet PO SCH (06:00)
[2018-05-13 07:13] LABS: Baso # (Auto) 0.3 th/mm3 (0.0-0.2); Baso % (Auto) 2.5 % (0.0-2.0); Eos # (Auto) 1.2 th/mm3 (0.0-0.4); Hematocrit 28.1 % (39.0-51.0); Hemoglobin 9.3 gm/dL (13.0-17.0); Lymph # (Auto) 1.4 th/mm3 (1.0-4.8); Lymph % (Auto) 13.8 % (9.0-44.0); Mean Corpuscular HGB Conc 33.1 % (32.0-36.0); Mean Corpuscular Hemoglobin 30.5 pg (27.0-34.0); Mean Corpuscular Volume 92.2 fL (80.0-100.0); Mono % (Auto) 9.9 % (0.0-8.0); Neut # (Auto) 6.2 th/mm3 (1.8-7.7); Neut % (Auto) 61.8 % (16.0-70.0); Platelet Count 417 th/mm3 (150-450); Red Blood Count 3.05 mil/mm3 (4.50-5.90); Red Cell Distribution Width 21.5 % (11.6-17.2)
[2018-05-13 07:38] LABS: Anion Gap 8 meq/L (5-15); Blood Urea Nitrogen 14 mg/dL (7-18); Calcium 8.1 mg/dL (8.5-10.1); Carbon Dioxide 27.5 meq/L (21.0-32.0); Chloride 97 meq/L (98-107); Glomerular Filtration Rate Greater Than 89 mL/min (>89); Glucose,Random 142 mg/dL (74-106); Potassium 4.7 meq/L (3.5-5.1); Sodium 132 meq/L (136-145)
[2018-05-13] MEDS: Ferrous Sulfate 325 MG Tablet PO SCH ×3 (08:40→17:44)
[2018-05-13] MEDS: Potassium Phos/Sodium Phos 250 MG Tablet PO SCH ×4 (08:40→21:04)
[2018-05-13] MEDS: Sodium Chloride 1 GM Tablet PO SCH ×3 (08:40→17:44)
[2018-05-13] MEDS: Citalopram 20 MG Tablet PO SCH (08:40)
[2018-05-13] MEDS: Magnesium Oxide 400 MG Tablet PO SCH ×4 (08:40→21:03)
[2018-05-13] MEDS: Gabapentin 300 MG Capsule PO SCH ×3 (08:40→17:45)
[2018-05-13] MEDS: Docusate Sodium 100 MG Capsule PO SCH ×2 (08:40→21:04)
[2018-05-13] MEDS: Ascorbic Acid 500 MG Tablet PO SCH ×2 (08:40→21:04)
[2018-05-13] MEDS: Amiodarone 200 MG Tablet PO SCH (08:40)
[2018-05-13] MEDS: Polyethylene Glycol 3350 17 GM Packet PO SCH (08:41)
[2018-05-13] MEDS: Insulin NovoLOG Aspart Correctional Sugar Inj SQ SCH ×4 (08:45→21:05)
[2018-05-13] MEDS: Gentamicin 0.1% Cream 15 GM Cream TOPICAL SCH ×2 (08:48→21:05)
[2018-05-13] MEDS: Collagenase Oint 30 GM Tube TOPICAL SCH (08:48)
[2018-05-13] MEDS: Vancomycin Inj 1,250 MG in Sodium Chlor 0.9% Inj 250 ML IV.SIG SCH (10:08)
--- NOTE | 2018-05-13 15:03 | P.PNFP ---
Subjective Interval history: Patient seen and examined this morning.No acute events overnight. Denies nausea, vomiting, fever, chills abdominal pain, chest pain, shortness breath, lightheadedness, dizziness, change in bowel or bladder habits. No other complaints today. <Saji Richard - 05/13/18 15:02> Results - Labs Result diagrams: 05/15/18 04:57 05/15/18 04:57 <Ayo Miranda - 05/15/18 12:53> Abnormal lab results 05/14/18 05/14/18 05/14/18 Range/Units 13:09 17:44 20:26 RBC (4.50-5.90) mil/mm3 Hgb (13.0-17.0) gm/dL Hct (39.0-51.0) % RDW (11.6-17.2) % [place] % (Auto) (0.0-8.0) % Eos % (Auto) (0.0-4.0) % Baso % (Auto) (0.0-2.0) % Eos # (Auto) (0.0-0.4) th/mm3 Baso # (Auto) (0.0-0.2) th/mm3 Sodium (136-145) meq/L Chloride (98-107) meq/L Creatinine (0.60-1.30) mg/dL POC Glucose 140 H 138 H 145 H (68-110) mg/dl Random Glucose (74-106) mg/dL 05/15/18 05/15/18 05/15/18 Range/Units 04:57 04:57 09:21 RBC 3.49 L (4.50-5.90) mil/mm3 Hgb 10.5 L (13.0-17.0) gm/dL Hct 31.2 L (39.0-51.0) % RDW 21.0 H (11.6-17.2) % [place] % (Auto) 8.4 H (0.0-8.0) % Eos % (Auto) 7.7 H (0.0-4.0) % Baso % (Auto) 2.7 H (0.0-2.0) % Eos # (Auto) 0.7 H (0.0-0.4) th/mm3 Baso # (Auto) 0.3 H (0.0-0.2) th/mm3 Sodium 130 L (136-145) meq/L Chloride 96 L (98-107) meq/L Creatinine 0.58 L (0.60-1.30) mg/dL POC Glucose 176 H (68-110) mg/dl Random Glucose 113 H (74-106) mg/dL 05/15/18 Range/Units 12:42 RBC (4.50-5.90) mil/mm3 Hgb (13.0-17.0) gm/dL Hct (39.0-51.0) % RDW (11.6-17.2) % [place] % (Auto) (0.0-8.0) % Eos % (Auto) (0.0-4.0) % Baso % (Auto) (0.0-2.0) % Eos # (Auto) (0.0-0.4) th/mm3 Baso # (Auto) (0.0-0.2) th/mm3 Sodium (136-145) meq/L Chloride (98-107) meq/L Creatinine (0.60-1.30) mg/dL POC Glucose 121 H (68-110) mg/dl Random Glucose (74-106) mg/dL Short CBC 05/15/18 Range/Units 04:57 WBC 9.8 (4.0-11.0) th/mm3 Hgb 10.5 L (13.0-17.0) gm/dL Hct 31.2 L (39.0-51.0) % Plt Count 387 (150-450) th/mm3 BMP 05/15/18 04:57 Sodium 130 L Potassium 4.7 Chloride 96 L Carbon Dioxide 26.2 BUN 13 Creatinine 0.58 L Calcium 8.5 <Ayo Miranda R - 05/15/18 12:53> Abnormal lab results 05/12/18 05/12/18 05/13/18 Range/Units 17:56 21:25 05:08 RBC 3.05 L (4.50-5.90) mil/mm3 Hgb 9.3 L (13.0-17.0) gm/dL Hct 28.1 L (39.0-51.0) % RDW 21.5 H (11.6-17.2) % [place] % (Auto) 9.9 H (0.0-8.0) % Eos % (Auto) 12.0 H (0.0-4.0) % Baso % (Auto) 2.5 H (0.0-2.0) % [place] # (Auto) 1.0 H (0.0-0.9) th/mm3 Eos # (Auto) 1.2 H (0.0-0.4) th/mm3 Baso # (Auto) 0.3 H (0.0-0.2) th/mm3 Sodium (136-145) meq/L Chloride (98-107) meq/L POC Glucose 164 H 249 H (68-110) mg/dl Random Glucose (74-106) mg/dL Calcium (8.5-10.1) mg/dL 05/13/18 05/13/18 05/13/18 Range/Units 05:08 08:45 13:04 RBC (4.50-5.90) mil/mm3 Hgb (13.0-17.0) gm/dL Hct (39.0-51.0) % RDW (11.6-17.2) % [place] % (Auto) (0.0-8.0) % Eos % (Auto) (0.0-4.0) % Baso % (Auto) (0.0-2.0) % [place] # (Auto) (0.0-0.9) th/mm3 Eos # (Auto) (0.0-0.4) th/mm3 Baso # (Auto) (0.0-0.2) th/mm3 Sodium 132 L (136-145) meq/L Chloride 97 L (98-107) meq/L POC Glucose 168 H 176 H (68-110) mg/dl Random Glucose 142 H (74-106) mg/dL Calcium 8.1 L (8.5-10.1) mg/dL Short CBC 05/13/18 Range/Units 05:08 WBC 10.0 (4.0-11.0) th/mm3 Hgb 9.3 L (13.0-17.0) gm/dL Hct 28.1 L (39.0-51.0) % Plt Count 417 (150-450) th/mm3 BMP 05/13/18 05:08 Sodium 132 L Potassium 4.7 Chloride 97 L Carbon Dioxide 27.5 BUN 14 Creatinine 0.65 Calcium 8.1 L <SinakathySajiEladio - 05/13/18 15:02> Physical Exam Vital signs: Vital Signs 05/14/18 16:00 05/14/18 19:55 05/14/18 20:00 Temperature 98.7 F 97.4 F L Pulse Rate 57 L 60 60 Respiratory Rate 20 20 Blood Pressure 140/66 140/66 Pulse Oximetry 97 97 05/14/18 23:50 05/15/18 00:00 05/15/18 04:00 Temperature 97.3 F L 97.1 F L Pulse Rate 59 L 58 L 55 L Respiratory Rate 20 16 Blood Pressure 137/63 121/57 L Pulse Oximetry 96 99 05/15/18 08:00 Temperature 97.4 F L Pulse Rate 62 Respiratory Rate 18 Blood Pressure 136/62 Pulse Oximetry 98 Intake & Output 05/14/18 05/15/18 05/15/18 18:59 06:59 18:59 Intake Total 1060 / 1060 702.5 / 702.5 Output Total 1200 / 1200 1400 / 1400 Balance -140 / -140 -697.5 / -697.5 Weight 75.6 kg Intake: IV 100 / 100 462.5 / 462.5 Zerbaxa Inj 1,500 MG In NS Inj 100 / 100 200 / 200 100 ML @ 100 mls/hr IV.SIG Q8H [facility] Rx#:[id number] Vancomycin Inj 1,250 MG In NS 262.5 / 262.5 Inj 250 ML @ 262.5 mls/hr IV. SIG Q18H ACE Rx#:[id number] Oral 960 / 960 240 / 240 Output: Urine 1200 / 1200 1400 / 1400 Other: Date of Last Bowel Movement 05/13/18 05/15/18 05/13/18 # Bowel Movements 1 1 <Ayo Miranda R - 05/15/18 12:53> Vital Signs 05/12/18 16:00 05/12/18 20:00 05/13/18 00:00 Temperature 97.2 F L 97.1 F L 98.4 F Pulse Rate 61 58 L 58 L Respiratory Rate 18 20 18 Blood Pressure 146/67 H 131/66 147/79 H Pulse Oximetry 97 96 95 05/13/18 04:00 05/13/18 07:42 05/13/18 08:00 Temperature 98.2 F 97.1 F L Pulse Rate 61 79 Respiratory Rate 18 17 18 Blood Pressure 139/88 113/56 L Pulse Oximetry 96 96 05/13/18 12:00 Temperature 97.2 F L Pulse Rate 60 Respiratory Rate 18 Blood Pressure 114/58 L Pulse Oximetry 96 Intake & Output 05/12/18 05/13/18 05/13/18 18:59 06:59 18:59 Intake Total 922.5 / 922.5 1110 / 1110 362.5 / 362.5 Output Total 1999 1450 / 1450 Balance -1077.5 / -1077.5 -340 / -340 362.5 / 362.5 Weight 78.2 kg Intake: IV 362.5 / 362.5 200 / 200 362.5 / 362.5 Zerbaxa Inj 1,500 MG In NS Inj 100 / 100 200 / 200 100 / 100 100 ML @ 100 mls/hr IV.SIG Q8H [facility] Rx#:[id number] Vancomycin Inj 1,250 MG In NS 262.5 / 262.5 262.5 / 262.5 Inj 250 ML @ 262.5 mls/hr IV. SIG Q18H ACE Rx#:[id number] Oral 560 / 560 910 / 910 Output: Urine 1450 / 1450 Urine Amount (Catheter) 1999 Condom 1999 Other: Date of Last Bowel Movement 05/13/18 05/13/18 # Bowel Movements 1 <Saji Richard - 05/13/18 15:02> Narrative: GENERAL: Pleasant elderly male thin, appears malnourished. Alert to person and place but not time. SKIN: Cool and dry. No generalized rash. HEAD: Atraumatic. Normocephalic. No temporal wasting, or tenderness. EYES: Anisocoria, larger left pupil, EOMI CARDIOVASCULAR: Regular rate and rhythm. RESPIRATORY: Clear to auscultation. Breath sounds equal bilaterally. No rales , wheezing or rhonchi ABDOMEN: Soft, non-tender, nondistended. No guarding. No rebound. No organomegaly. EXTREMITIES: No edema. Atrophic muscular changes in both legs bilaterally. Patient able to move toes bilaterally and no decreased sensation. Heels wrapped , C/D/I <Saji Richard - 05/13/18 15:02> - Urinary Catheter Management Condom Cath placed during this visit: no <Ayo Miranda - 05/15/18 12:53> no <Saji Richard - 05/13/18 15:02> Reason for continuing: Not indwelling catheter <Saji Richard - 05/13/18 15 :02> Indwelling Urethral Catheter Cath placed during this visit: no <Ayo Miranda - 05/15/18 12:53> yes, but has since been removed by the nurse <Saji Richard - 05/13/18 15:02> Reason for continuing: Not indwelling catheter <Saji Richard - 05/13/18 15 :02> Insertion date: 04/11/18 <Jose ManuelSaji Alvarez - 05/13/18 15:02> Insertion time: 21:08 <Saji Richard - 05/13/18 15:02> Removal date: 04/12/18 <Jose ManuelSaji Alvarez 05/13/18 15:02> Removal time: 11:35 <Saji Richard - 05/13/18 15:02> Straight Cath placed during this visit: no <Ayo Miranda - 05/15/18 12:53> yes <Saji Richard - 05/13/18 15:02> Reason for continuing: Other continuation reason <Saji Richard - 05/13/18 15:02> Insertion date: 04/11/18 <Saji Richard - 05/13/18 15:02> Insertion time: 21:08 <Jose ManuelSaji Alvarez - 05/13/18 15:02> Assessment and Plan - Assessment (1) Osteomyelitis of ankle Code(s): M86.9 - Osteomyelitis, unspecified Status: Acute (2) Ischemia of foot Code(s): I99.8 - Other disorder of circulatory system Status: Acute (3) Anemia Code(s): D64.9 - Anemia, unspecified Status: Acute (4) Infection associated with internal hip prosthesis Code(s): T84.59XA - Infection and inflammatory reaction due to other internal joint prosthesis, initial encounter; Z96.649 - Presence of unspecified artificial hip joint Status: Acute (5) Chronic wound of extremity Status: Chronic (6) MRSA (methicillin resistant staph aureus) culture positive Code(s): Z22.322 - Carrier or suspected carrier of Methicillin resistant Staphylococcus aureus Status: Acute (7) PAD (peripheral artery disease) Code(s): I73.9 - Peripheral vascular disease, unspecified Status: Chronic (8) Bandemia Code(s): D72.825 - Bandemia Status: Resolved (9) Hydronephrosis Code(s): N13.30 - Unspecified hydronephrosis Status: Resolved (10) HTN (hypertension) Code(s): I10 - Essential (primary) hypertension Status: Acute (11) Diabetes Code(s): E11.9 - Type 2 diabetes mellitus without complications Status: Acute (12) Malnutrition Code(s): E46 - Unspecified protein-calorie malnutrition Status: Acute (13) Anisocoria Code(s): H57.02 - Anisocoria Status: Acute (14) Suicidal ideation Code(s): R45.851 - Suicidal ideations Status: Acute (15) Nutrition, metabolism, and development symptoms Code(s): R63.8 - Other symptoms and signs concerning food and fluid intake Status: Acute <Ayo Miranda R - 05/15/18 12:53> (1) Osteomyelitis of ankle Code(s): M86.9 - Osteomyelitis, unspecified Status: Acute Plan: Osteomyelitis of right ankle, culture positive for MRSA of right thigh wound. Wound culture of right ankle shows Pseudomonas and multidrug resistant Proteus as well as group D enterococcus. -Bcx NGTD Podiatry had been consulted, recommended below-knee amputation, patient refused , podiatry history below Vascular surgery consulted * s/p [employer] ENGINE[employer] INTERN of popliteal stenosis on 04/24 * Anterior tibial, posterior tibia and peritoneal artery occluded Lower extremity pulses appreciated Via Doppler. Right popliteal pulse appreciated on exam ID consulted, appreciate recs * Continue vancomycin--until Jun 07, 6 weeks after hardware removal for the R hip * Continue Zerbaxa--for the heel ulcer and osteo due to resistance of organisms Wound care consulted, appreciate recs * See note from 04/25 * follow recommendations * Pain management with [place] scheduled, gabapentin, morphine for breakthrough pain Podiatry history; * plan for patient to have calcanectomy on 04/26 however due to patient's inability to recall presurgery discussion when seen by podiatry the morning of 04/26 Dr. Urena will no longer be performing calcanectomy procedure. * Recommends: betadine wet to dry daily and if foot/heel becomes acutely infected rec as patient is unable to care for himself or able to mentally process limb salvage procedure options. In addition, the likelihood of failure was already high due to the low vascularity to the right lower limb. * Podiatry has signed off. * Discussed option of below-knee amputation of right lower extremity and Patient still not interested (2) Anemia Code(s): D64.9 - Anemia, unspecified Status: Acute Plan: On admission found to have hemoglobin of 6.6, status post 2 units RBCs transfused. Had tarry stools, endoscopy and colonoscopy benign other than small ulcer in rectum. Hemoglobin stable. -Trend H/H (3) Infection associated with internal hip prosthesis Code(s): T84.59XA - Infection and inflammatory reaction due to other internal joint prosthesis, initial encounter; Z96.649 - Presence of unspecified artificial hip joint Status: Acute Plan: Found to have right hip prosthesis infection. Irrigation, debridement, hardware removal and placement of antibiotic beads (04/27). -Orthopedics consulted, appreciate recommendations -Recommend 2-week follow-up, antibiotics per ID for chronic osteomyelitis (4) Chronic wound of extremity Status: Chronic Plan: Patient currently follows up with wound care as an outpatient Wound management: Right hip wound, super absorbant dressing daily Skin tear lower left extremity, Santyl covered and dry dressing daily Right heel wound, apply gentamicin cream twice daily, see above plan for associated osteomyelitis Wound care consulted, appreciate recommendations * Cleanse wound to R Achilles heel with normal saline only and pat dry. Apply gentamicin mixed with Santyl 50/ 50 and apply to wound bed * Cover with ABD pad, and secure with rolled gauze and tape. Change dressing daily, until seen by podiatry. * Cleanse wound to R hip see updated note from 04/25 and follow ortho rec for dressing * Cleanse wound to L posterior lower leg with normal saline and pat dry. Apply optifoam gentle 4x4 dressing change dressing every 3 days or PRN if saturated or dislodged. * Sacral wound: -Please cleanse sacral area gently with Remedy barrier wipes and pat dry. Apply Cavilon skin barrier film spray to sacral area BID and PRN and leave open to air. -Turn and reposition patient every 2 hours from L to R side limiting time spent on back to P.T. and meals -Patient placed on low airloss bed/ mattress -Will try to get in contact with wound care for re-evaluation of sacral wound , stable on exam (5) MRSA (methicillin resistant staph aureus) culture positive Code(s): Z22.322 - Carrier or suspected carrier of Methicillin resistant Staphylococcus aureus Status: Acute Plan: This patient suffers from chronic nonhealing wounds likely secondary to peripheral arterial disease and DM. Patient had wound from right thigh cultured which ultimately grew MRSA. -Monitor for fevers and signs of systemic illness -Antibiotic therapy as above (6) PAD (peripheral artery disease) Code(s): I73.9 - Peripheral vascular disease, unspecified Status: Chronic Plan: s/p recent right LE arterectomy. s/p vascular procedure as above on 04/24 (7) Bandemia Code(s): D72.825 - Bandemia Status: Resolved Plan: Resolved, likely due to osteomyelitis. See above plan. (8) Hydronephrosis Code(s): N13.30 - Unspecified hydronephrosis Status: Resolved Plan: Left hydronephrosis and hydroureter without obstruction on CT (04/11). Currently voiding well, no CVA tenderness. UA (-)04/26. Not noted on CT on . - Continue to monitor I's and O's. (9) HTN (hypertension) Code(s): I10 - Essential (primary) hypertension Status: Acute Plan: Continue Cardizem and amiodarone (10) Diabetes Code(s): E11.9 - Type 2 diabetes mellitus without complications Status: Acute Plan: Hx of DM -Held home glipizide, Januvia -Accu-Cheks -Low-dose sliding scale -Hypoglycemia protocol in place (11) Malnutrition Code(s): E46 - Unspecified protein-calorie malnutrition Status: Acute Plan: This patient appears thin and possibly malnourished. Patient has significant muscle atrophy in arms and legs that are partially consistent with age and lack of activity. 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 Patient unsure of specific cause or diagnoses. Can follow up with Ophthalmology outpatient as needed (13) Suicidal ideation Code(s): R45.851 - Suicidal ideations Status: Acute Plan: Nurse reported that patient expressed fluctuating suicidal ideation and refusal of taking his medications om 05/11. His mood improved later on in the morning. Denies SI/HI -Citalopram 10 mg daily -Continue to assess status (14) Nutrition, metabolism, and development symptoms Code(s): R63.8 - Other symptoms and signs concerning food and fluid intake Status: Acute Plan: Fluids: per PO Diet: Diabetic supplements with protein shake Electrolytes: monitor and replete as needed DVT prophylaxis: Contraindicated due to upper GI bleed Disposition: SNF not taking patient at this time due to cost of Zerbaxa <Saji Richard - 05/13/18 14:59> - Attending Attestation This patient was seen and evaluated with the resident physician. I agree with the plan of care as discussed with me and documented in the resident note. Ayo Miranda MD <Ayo Miranda - 05/15/18 12:53> <Saji Richard - Last Filed: 05/13/18 14:59> (1) Osteomyelitis of ankle Qualifiers: Osteomyelitis type: other chronic Laterality: right Qualified Code(s): M86.671 - Other chronic osteomyelitis, right ankle and foot (8) Hydronephrosis Qualifiers: Hydronephrosis type: unspecified Qualified Code(s): N13.30 - Unspecified hydronephrosis <Ayo Miranda R - Last Filed: 05/15/18 12:53> (1) Osteomyelitis of ankle Qualifiers: Osteomyelitis type: other chronic Laterality: right Qualified Code(s): M86.671 - Other chronic osteomyelitis, right ankle and foot (9) Hydronephrosis Qualifiers: Hydronephrosis type: unspecified Qualified Code(s): N13.30 - Unspecified hydronephrosis <Saji Richard A - Last Filed: 05/13/18 14:59> (1) Osteomyelitis of ankle Qualifiers: Osteomyelitis type: other chronic Laterality: right Qualified Code(s): M86.671 - Other chronic osteomyelitis, right ankle and foot (8) Hydronephrosis Qualifiers: Hydronephrosis type: unspecified Qualified Code(s): N13.30 - Unspecified hydronephrosis <Ayo Miranda R - Last Filed: 05/15/18 12:53> (1) Osteomyelitis of ankle Qualifiers: Osteomyelitis type: other chronic Laterality: right Qualified Code(s): M86.671 - Other chronic osteomyelitis, right ankle and foot (9) Hydronephrosis Qualifiers: Hydronephrosis type: unspecified Qualified Code(s): N13.30 - Unspecified hydronephrosis
[2018-05-14] MEDS: CEFTOLOZANE IV.SIG SCH ×3 (01:17→18:05)
[2018-05-14] MEDS: TAZOBACTAM IV.SIG SCH ×3 (01:17→18:05)
[2018-05-14] MEDS: SODIUM CHLOR 0.9% IV.SIG SCH ×3 (01:17→18:05)
[2018-05-14] MEDS: Vancomycin Inj 1,250 MG in Sodium Chlor 0.9% Inj 250 ML IV.SIG SCH ×2 (02:29→22:18)
[2018-05-14] MEDS: Morphine Inj 4 MG/ML Vial IV.PUSH PRN (02:31)
[2018-05-14] MEDS: Levothyroxine 125 MCG Tablet PO SCH (06:05)
[2018-05-14] MEDS: Polyethylene Glycol 3350 17 GM Packet PO SCH (09:33)
[2018-05-14] MEDS: Gabapentin 300 MG Capsule PO SCH ×3 (09:34→18:06)
[2018-05-14] MEDS: Citalopram 20 MG Tablet PO SCH (09:34)
[2018-05-14] MEDS: Potassium Phos/Sodium Phos 250 MG Tablet PO SCH ×4 (09:34→22:19)
[2018-05-14] MEDS: Amiodarone 200 MG Tablet PO SCH (09:35)
[2018-05-14] MEDS: Ferrous Sulfate 325 MG Tablet PO SCH ×3 (09:35→18:06)
[2018-05-14] MEDS: Magnesium Oxide 400 MG Tablet PO SCH ×4 (09:35→22:17)
[2018-05-14] MEDS: Collagenase Oint 30 GM Tube TOPICAL SCH (09:36)
[2018-05-14] MEDS: Ascorbic Acid 500 MG Tablet PO SCH ×2 (09:36→22:17)
[2018-05-14] MEDS: Sodium Chloride 1 GM Tablet PO SCH ×3 (09:36→18:06)
[2018-05-14] MEDS: Gentamicin 0.1% Cream 15 GM Cream TOPICAL SCH ×2 (09:36→22:19)
[2018-05-14] MEDS: Docusate Sodium 100 MG Capsule PO SCH ×2 (09:36→22:17)
[2018-05-14] MEDS: Insulin NovoLOG Aspart Correctional Sugar Inj SQ SCH ×4 (09:37→22:18)
--- NOTE | 2018-05-14 12:41 | P.PNID ---
Subjective Remarks: Patient is an 87-year-old male, admitted to the hospital for evaluation of low hemoglobin. There was apparently episodes of black tarry stools. He had a GI workup on this admission, and he seemed to be stable from the GI standpoint. Patient apparently has had a wound on his right heel Achilles area. He had vascular workup, and underwent aortogram around April 08, and had atherectomy of the right SFA and popliteal area. Patient could not really tell me how long he has had the open wound. He has pain when he walks. There is been no fever and chills. On this admission podiatry was consulted. 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 There is a foul odor coming out from that right foot, and patient really could not notice any difference. Since admission he has not been febrile. He has significant pain whenever his RLE gets moved. There was a culture from a right thigh wound that has MRSA. I do not see any culture from the right foot. His initial WBC was around 14,000 and that is down to normal. Blood cultures are negative. Infectious disease consultation has been requested to evaluate the patient. Notes reviewed Temps ok Still with pain Had surgery R hip 04/27 - removal of hardware Intraop C/S negative Underwent revascularization 04/24 C/S from ankle with MDR PSAE, Proteus and Enterococcus C/S R thigh MRSA (wound) Antibiotics: Vancomycin Zerbaxa Lines: PIV Past Medical History: Weakness Diabetes HLD (hyperlipidemia) MDRO (multiple drug resistant organisms) resistance Onset Date: ~04/11/18 MRSA (methicillin resistant Staphylococcus aureus) PAD (peripheral artery disease) Hip surgery Allergies/Adverse Reactions: Allergies No Known Allergies Allergy (Verified 04/08/18 12:35) Objective Vital Signs 05/13/18 16:00 05/13/18 20:00 05/13/18 23:52 Temperature 97.3 F L 98.5 F 97.6 F Pulse Rate 55 L 54 L 55 L Respiratory Rate 18 19 18 Blood Pressure 116/60 105/56 L 134/64 Pulse Oximetry 96 96 96 05/14/18 00:00 05/14/18 04:00 05/14/18 08:00 Temperature 97.2 F L Pulse Rate 55 L 60 61 Respiratory Rate 19 18 Blood Pressure 127/61 135/61 Pulse Oximetry 95 96 05/14/18 10:45 05/14/18 12:00 Temperature 97.3 F L Pulse Rate 54 L Respiratory Rate 10 L 18 Blood Pressure 126/61 Pulse Oximetry 96 Intake & Output 05/13/18 05/14/18 05/14/18 18:59 06:59 18:59 Intake Total 782.5 / 782.5 882.5 / 882.5 100 / 100 Output Total 1400 / 1400 801 / 801 Balance -617.5 / -617.5 81.5 / 81.5 100 / 100 Weight 77.6 kg Intake: IV 362.5 / 362.5 462.5 / 462.5 100 / 100 Zerbaxa Inj 1,500 MG In NS Inj 100 / 100 200 / 200 100 / 100 100 ML @ 100 mls/hr IV.SIG Q8H ACE Rx#:[id number] Vancomycin Inj 1,250 MG In NS 262.5 / 262.5 262.5 / 262.5 Inj 250 ML @ 262.5 mls/hr IV. SIG Q18H ACE Rx#:[id number] Oral 420 / 420 420 / 420 Output: Urine 1400 / 1400 800 / 800 Stool Other: # Voids 1 Date of Last Bowel Movement 05/13/18 05/14/18 # Bowel Movements 1 04/27/18 12:43 Wound - Thigh Acid Fast Bacilli Smear - Final No acid fast bacilli seen 04/27/18 12:43 Wound - Thigh Mycobacterial Culture - Preliminary No growth in 2 weeks 04/27/18 12:43 Wound - Thigh Fungal Smear - Final No fungal elements seen 04/27/18 12:43 Wound - Thigh Fungal Culture - Preliminary No growth in 2 weeks Lab - Hematology Results 05/13/18 05:08 WBC 10.0 RBC 3.05 L Hgb 9.3 L Hct 28.1 L MCV 92.2 MCH 30.5 MCHC 33.1 RDW 21.5 H Plt Count 417 MPV 7.0 Neut % (Auto) 61.8 Lymph % (Auto) 13.8 [place] % (Auto) 9.9 H Eos % (Auto) 12.0 H Baso % (Auto) 2.5 H Neut # (Auto) 6.2 Lymph # (Auto) 1.4 [place] # (Auto) 1.0 H Eos # (Auto) 1.2 H Baso # (Auto) 0.3 H WBC Differential . Differential Comment Auto diff final Lab - Chemistry Results 05/12/18 05/12/18 05/12/18 13:02 17:56 21:25 Sodium Potassium Chloride Carbon Dioxide Anion Gap BUN Creatinine Estimated GFR POC Glucose 148 H 164 H 249 H Random Glucose Calcium 05/13/18 05/13/18 05/13/18 05:08 08:45 13:04 Sodium 132 L Potassium 4.7 Chloride 97 L Carbon Dioxide 27.5 Anion Gap 8 BUN 14 Creatinine 0.65 Estimated GFR Greater than 89 POC Glucose 168 H 176 H Random Glucose 142 H Calcium 8.1 L 05/13/18 05/13/18 05/14/18 17:47 20:00 07:31 Sodium Potassium Chloride Carbon Dioxide Anion Gap BUN Creatinine Estimated GFR POC Glucose 150 H 138 H 129 H Random Glucose Calcium Imaging: ITS Impressions Head CT 04/11/18 11:59 CONCLUSION: 1. Stable appearance of the brain. . Ankle MRI 04/15/18 00:00 CONCLUSION: 1. Osteomyelitis of the posterior calcaneus with a near complete tear of the distal Achilles tendon. There is overlying cellulitis and subcutaneous edema with a small abscess adjacent to the distal Achilles tendon as measured above. There is edematous change on the plantar aspect of the foot with a tenosynovitis as above. No acute fracture identified. Mild bone edema tibia, nonspecific. Ankle X-Ray 04/15/18 00:00 CONCLUSION: Osteomyelitis of the posterior calcaneus with overlying soft tissue swelling and ulceration. No acute fracture. Femur MRI 04/25/18 00:00 CONCLUSION: 1. 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 The collection appears to communicate with the prosthetic component in the proximal femur. 2. Edematous changes are noted along the vastus lateralis and iliotibial band. Hip X-Ray 04/27/18 00:00 CONCLUSION: Hardware removal on the right. Abdomen/Pelvis CT 04/30/18 10:28 Review of bone windows reveals moderate degenerative changes in the lumbar spine and both SI joints. CONCLUSION: 1. Large bolus of stool in the rectum with stool throughout the colon suggesting constipation with possible impaction 2. Prominent gallbladder without stones 3. 2 nonobstructing stones in the left kidney. Physical Exam: GENERAL: awake and alert, not in respiratory distress. SKIN: Cool and dry. No generalized rash. EYES: [place] conjunctiva. No petechia or hemorrhage. No scleral icterus. No injection or drainage. EARS, NOSE AND THROAT: Mucous membranes pink and moist. No oral lesions noted. NECK: Trachea midline. Supple and not tender, no meningeal signs CARDIOVASCULAR: Regular rate and rhythm. No murmurs, rubs or gallops heard RESPIRATORY: Clear to auscultation. Breath sounds equal bilaterally. No rales , wheezing or rhonchi ABDOMEN: Soft, non-tender, nondistended. Bowel sounds present and normoactive. No guarding. No rebound. No organomegaly. EXTREMITIES: No clubbing, cyanosis, or edema. 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 Wounds on dorsum with small amount of drainage. Black eschar on his R heel and posterior ankle, no odor. Dressing R hip with serosanguineous drainage NEURO: Awake and alert PSYCH: Cooperative LINE: No evidence of infection Assessment and Plan - Plan Impression Non-healing wound R heel/achilles area with abscess and osteo posterior calcaneus PVD S/P revascularization RLE 04/24 Infection R femur, has sinus tract on MRI, S/P RAZA, C/S MRSA GIB Leukocytosis, resolved Anemia Recommendation Continue IV Vanco - needs until Jun 07, 6 weeks after hardware removal for the R hip Continue Zerbaxa - for the heel ulcer and osteo SNF not taking patient at this time due to cost of Zerbaxa Monitor progress Patient still not interested in amputation OK to place PICC
--- NOTE | 2018-05-14 13:49 | P.PNFP ---
Subjective Interval history: Patient seen and examined this morning.No acute events overnight. Denies nausea, vomiting, fever, chills abdominal pain, chest pain, shortness breath, lightheadedness, dizziness, change in bowel or bladder habits. Notes discoloration of his right second toe. No other complaints today. <Saji Richard - 05/14/18 14:36> Results - Labs Result diagrams: 05/15/18 04:57 05/15/18 04:57 <Ayo Miranda - 05/15/18 13:03> Abnormal lab results 05/14/18 05/14/18 05/14/18 Range/Units 13:09 17:44 20:26 RBC (4.50-5.90) mil/mm3 Hgb (13.0-17.0) gm/dL Hct (39.0-51.0) % RDW (11.6-17.2) % [place] % (Auto) (0.0-8.0) % Eos % (Auto) (0.0-4.0) % Baso % (Auto) (0.0-2.0) % Eos # (Auto) (0.0-0.4) th/mm3 Baso # (Auto) (0.0-0.2) th/mm3 Sodium (136-145) meq/L Chloride (98-107) meq/L Creatinine (0.60-1.30) mg/dL POC Glucose 140 H 138 H 145 H (68-110) mg/dl Random Glucose (74-106) mg/dL 05/15/18 05/15/18 05/15/18 Range/Units 04:57 04:57 09:21 RBC 3.49 L (4.50-5.90) mil/mm3 Hgb 10.5 L (13.0-17.0) gm/dL Hct 31.2 L (39.0-51.0) % RDW 21.0 H (11.6-17.2) % [place] % (Auto) 8.4 H (0.0-8.0) % Eos % (Auto) 7.7 H (0.0-4.0) % Baso % (Auto) 2.7 H (0.0-2.0) % Eos # (Auto) 0.7 H (0.0-0.4) th/mm3 Baso # (Auto) 0.3 H (0.0-0.2) th/mm3 Sodium 130 L (136-145) meq/L Chloride 96 L (98-107) meq/L Creatinine 0.58 L (0.60-1.30) mg/dL POC Glucose 176 H (68-110) mg/dl Random Glucose 113 H (74-106) mg/dL 05/15/18 Range/Units 12:42 RBC (4.50-5.90) mil/mm3 Hgb (13.0-17.0) gm/dL Hct (39.0-51.0) % RDW (11.6-17.2) % [place] % (Auto) (0.0-8.0) % Eos % (Auto) (0.0-4.0) % Baso % (Auto) (0.0-2.0) % Eos # (Auto) (0.0-0.4) th/mm3 Baso # (Auto) (0.0-0.2) th/mm3 Sodium (136-145) meq/L Chloride (98-107) meq/L Creatinine (0.60-1.30) mg/dL POC Glucose 121 H (68-110) mg/dl Random Glucose (74-106) mg/dL Short CBC 05/15/18 Range/Units 04:57 WBC 9.8 (4.0-11.0) th/mm3 Hgb 10.5 L (13.0-17.0) gm/dL Hct 31.2 L (39.0-51.0) % Plt Count 387 (150-450) th/mm3 [facility] 05/15/18 04:57 Sodium 130 L Potassium 4.7 Chloride 96 L Carbon Dioxide 26.2 BUN 13 Creatinine 0.58 L Calcium 8.5 <Ayo Miranda R - 05/15/18 13:03> Abnormal lab results 05/13/18 05/13/18 05/14/18 Range/Units 17:47 20:00 07:31 POC Glucose 150 H 138 H 129 H (68-110) mg/dl 05/14/18 Range/Units 13:09 POC Glucose 140 H (68-110) mg/dl <Saji Richard - 05/14/18 13:49> Physical Exam Vital signs: Vital Signs 05/14/18 16:00 05/14/18 19:55 05/14/18 20:00 Temperature 98.7 F 97.4 F L Pulse Rate 57 L 60 60 Respiratory Rate 20 20 Blood Pressure 140/66 140/66 Pulse Oximetry 97 97 05/14/18 23:50 05/15/18 00:00 05/15/18 04:00 Temperature 97.3 F L 97.1 F L Pulse Rate 59 L 58 L 55 L Respiratory Rate 20 16 Blood Pressure 137/63 121/57 L Pulse Oximetry 96 99 05/15/18 08:00 05/15/18 09:45 Temperature 97.4 F L Pulse Rate 62 Respiratory Rate 18 10 L Blood Pressure 136/62 Pulse Oximetry 98 Intake & Output 05/14/18 05/15/18 05/15/18 18:59 06:59 18:59 Intake Total 1060 / 1060 702.5 / 702.5 Output Total 1200 / 1200 1400 / 1400 Balance -140 / -140 -697.5 / -697.5 Weight 75.6 kg Intake: IV 100 / 100 462.5 / 462.5 Zerbaxa Inj 1,500 MG In NS Inj 100 / 100 200 / 200 100 ML @ 100 mls/hr IV.SIG Q8H ACE Rx#:[id number] Vancomycin Inj 1,250 MG In NS 262.5 / 262.5 Inj 250 ML @ 262.5 mls/hr IV. SIG Q18H ACE Rx#:[id number] Oral 960 / 960 240 / 240 Output: Urine 1200 / 1200 1400 / 1400 Other: Date of Last Bowel Movement 05/13/18 05/15/18 05/13/18 # Bowel Movements 1 1 <Ayo Miranda R - 05/15/18 13:03> Vital Signs 05/13/18 16:00 05/13/18 20:00 05/13/18 23:52 Temperature 97.3 F L 98.5 F 97.6 F Pulse Rate 55 L 54 L 55 L Respiratory Rate 18 19 18 Blood Pressure 116/60 105/56 L 134/64 Pulse Oximetry 96 96 96 05/14/18 00:00 05/14/18 04:00 05/14/18 08:00 Temperature 97.2 F L Pulse Rate 55 L 60 61 Respiratory Rate 19 18 Blood Pressure 127/61 135/61 Pulse Oximetry 95 96 05/14/18 10:45 05/14/18 12:00 Temperature 97.3 F L Pulse Rate 54 L Respiratory Rate 10 L 18 Blood Pressure 126/61 Pulse Oximetry 96 Intake & Output 05/13/18 05/14/18 05/14/18 18:59 06:59 18:59 Intake Total 782.5 / 782.5 882.5 / 882.5 100 / 100 Output Total 1400 / 1400 801 / 801 Balance -617.5 / -617.5 81.5 / 81.5 100 / 100 Weight 77.6 kg Intake: IV 362.5 / 362.5 462.5 / 462.5 100 / 100 Zerbaxa Inj 1,500 MG In NS Inj 100 / 100 200 / 200 100 / 100 100 ML @ 100 mls/hr IV.SIG Q8H ACE Rx#:[id number] Vancomycin Inj 1,250 MG In NS 262.5 / 262.5 262.5 / 262.5 Inj 250 ML @ 262.5 mls/hr IV. SIG Q18H ACE Rx#:[id number] Oral 420 / 420 420 / 420 Output: Urine 1400 / 1400 800 / 800 Stool Other: # Voids 1 Date of Last Bowel Movement 05/13/18 05/14/18 # Bowel Movements 1 <Saji Richard - 05/14/18 13:49> Narrative: GENERAL: Pleasant elderly male thin, appears malnourished. Alert to person and place but not time. SKIN: Cool and dry. No generalized rash. HEAD: Atraumatic. Normocephalic. No temporal wasting, or tenderness. EYES: [place], larger left pupil, EOMI CARDIOVASCULAR: Regular rate and rhythm. RESPIRATORY: Clear to auscultation. Breath sounds equal bilaterally. No rales , wheezing or rhonchi ABDOMEN: Soft, non-tender, nondistended. No guarding. No rebound. No organomegaly. EXTREMITIES: No edema. Atrophic muscular changes in both legs bilaterally. Patient able to move toes bilaterally and no decreased sensation. Heels wrapped , C/D/I. Purple discoloration of left second toe up to the PIP joint, and distal left first toe, sensation still intact. <Saji Richard - 05/14/18 13:49> - Urinary Catheter Management Condom Cath placed during this visit: no <Ayo Miranda - 05/15/18 13:03> no <Saji Richard - 05/14/18 14:36> Reason for continuing: Not indwelling catheter <Saji Richard - 05/14/18 13 :49> Indwelling Urethral Catheter Cath placed during this visit: no <Ayo Miranda - 05/15/18 13:03> yes, but has since been removed by the nurse <Saji Richard - 05/14/18 14:36> Reason for continuing: Not indwelling catheter <Saji Richard - 05/14/18 13 :49> Insertion date: 04/11/18 <Jose ManuelSaji Alvraez 05/14/18 13:49> Insertion time: 21:08 <Saji Richard - 05/14/18 13:49> Removal date: 04/12/18 <Jose ManuelSaji Alvarez 05/14/18 13:49> Removal time: 11:35 <Jose ManuelSaji Alvarez - 05/14/18 13:49> Straight Cath placed during this visit: no <Ayo Miranda - 05/15/18 13:03> yes <Saji Richard 05/14/18 14:36> Reason for continuing: Other continuation reason <Saji Richard - 05/14/18 13:49> Insertion date: 04/11/18 <Saji Richard - 05/14/18 13:49> Insertion time: 21:08 <Jose ManuelSaji Alvarez 05/14/18 13:49> Assessment and Plan - Assessment (1) Osteomyelitis of ankle Code(s): M86.9 - Osteomyelitis, unspecified Status: Acute (2) Ischemia of foot Code(s): I99.8 - Other disorder of circulatory system Status: Acute (3) Anemia Code(s): D64.9 - Anemia, unspecified Status: Acute (4) Infection associated with internal hip prosthesis Code(s): T84.59XA - Infection and inflammatory reaction due to other internal joint prosthesis, initial encounter; Z96.649 - Presence of unspecified artificial hip joint Status: Acute (5) Chronic wound of extremity Status: Chronic (6) MRSA (methicillin resistant staph aureus) culture positive Code(s): Z22.322 - Carrier or suspected carrier of Methicillin resistant Staphylococcus aureus Status: Acute (7) PAD (peripheral artery disease) Code(s): I73.9 - Peripheral vascular disease, unspecified Status: Chronic (8) Bandemia Code(s): D72.825 - Bandemia Status: Resolved (9) Hydronephrosis Code(s): N13.30 - Unspecified hydronephrosis Status: Resolved (10) HTN (hypertension) Code(s): I10 - Essential (primary) hypertension Status: Acute (11) Diabetes Code(s): E11.9 - Type 2 diabetes mellitus without complications Status: Acute (12) Malnutrition Code(s): E46 - Unspecified protein-calorie malnutrition Status: Acute (13) Anisocoria Code(s): H57.02 - Anisocoria Status: Acute (14) Suicidal ideation Code(s): R45.851 - Suicidal ideations Status: Acute (15) Nutrition, metabolism, and development symptoms Code(s): R63.8 - Other symptoms and signs concerning food and fluid intake Status: Acute <AdolphestelaevyAyo Yola - 05/15/18 13:03> (1) Osteomyelitis of ankle Code(s): M86.9 - Osteomyelitis, unspecified Status: Acute Plan: Osteomyelitis of right ankle, culture positive for MRSA of right thigh wound. Wound culture of right ankle shows Pseudomonas and multidrug resistant Proteus as well as group D enterococcus. -Bcx NGTD Podiatry had been consulted, recommended below-knee amputation, patient refused , podiatry history below Vascular surgery consulted * s/p [employer] of popliteal stenosis on 04/24 * Anterior tibial, posterior tibia and peritoneal artery occluded Lower extremity pulses appreciated Via Doppler. Right popliteal pulse appreciated on exam ID consulted, appreciate recs * Continue vancomycin--until Jun 07, 6 weeks after hardware removal for the R hip * Continue Zerbaxa--for the heel ulcer and osteo due to resistance of organisms Wound care consulted, appreciate recs * See note from 04/25 * follow recommendations * Pain management with [place] scheduled, gabapentin, morphine for breakthrough pain Podiatry history; * plan for patient to have calcanectomy on 04/26 however due to patient's inability to recall presurgery discussion when seen by podiatry the morning of 04/26 Dr. Urena will no longer be performing calcanectomy procedure. * Recommends: betadine wet to dry daily and if foot/heel becomes acutely infected rec as patient is unable to care for himself or able to mentally process limb salvage procedure options. In addition, the likelihood of failure was already high due to the low vascularity to the right lower limb. * Podiatry has signed off. * Discussed option of below-knee amputation of right lower extremity and Patient still not interested (2) Ischemia of foot Code(s): I99.8 - Other disorder of circulatory system Status: Acute Plan: Patient with developing ischemia of right 1st and 2nd toe. Vascular surgery reconsulted. -F/U vascular recommendations (3) Anemia Code(s): D64.9 - Anemia, unspecified Status: Acute Plan: On admission found to have hemoglobin of 6.6, status post 2 units RBCs transfused. Had tarry stools, endoscopy and colonoscopy benign other than small ulcer in rectum. Hemoglobin stable. -Trend H/H (4) Infection associated with internal hip prosthesis Code(s): T84.59XA - Infection and inflammatory reaction due to other internal joint prosthesis, initial encounter; Z96.649 - Presence of unspecified artificial hip joint Status: Acute Plan: Found to have right hip prosthesis infection. Irrigation, debridement, hardware removal and placement of antibiotic beads (04/27). -Orthopedics consulted, appreciate recommendations -Recommend 2-week follow-up, antibiotics per ID for chronic osteomyelitis (5) Chronic wound of extremity Status: Chronic Plan: Patient currently follows up with wound care as an outpatient Wound management: Right hip wound, super absorbant dressing daily Skin tear lower left extremity, Santyl covered and dry dressing daily Right heel wound, apply gentamicin cream twice daily, see above plan for associated osteomyelitis Wound care consulted, appreciate recommendations * Cleanse wound to R Achilles heel with normal saline only and pat dry. Apply gentamicin mixed with Santyl 50/ 50 and apply to wound bed * Cover with ABD pad, and secure with rolled gauze and tape. Change dressing daily, until seen by podiatry. * Cleanse wound to R hip see updated note from 04/25 and follow ortho rec for dressing * Cleanse wound to L posterior lower leg with normal saline and pat dry. Apply optifoam gentle 4x4 dressing change dressing every 3 days or PRN if saturated or dislodged. * Sacral wound: -Please cleanse sacral area gently with Remedy barrier wipes and pat dry. Apply Cavilon skin barrier film spray to sacral area BID and PRN and leave open to air. -Turn and reposition patient every 2 hours from L to R side limiting time spent on back to P.T. and meals -Patient placed on low airloss bed/ mattress -Will try to get in contact with wound care for re-evaluation of sacral wound , stable on exam (6) MRSA (methicillin resistant staph aureus) culture positive Code(s): Z22.322 - Carrier or suspected carrier of Methicillin resistant Staphylococcus aureus Status: Acute Plan: This patient suffers from chronic nonhealing wounds likely secondary to peripheral arterial disease and DM. Patient had wound from right thigh cultured which ultimately grew MRSA. -Monitor for fevers and signs of systemic illness -Antibiotic therapy as above (7) PAD (peripheral artery disease) Code(s): I73.9 - Peripheral vascular disease, unspecified Status: Chronic Plan: s/p recent right LE arterectomy. s/p vascular procedure as above on 04/24 (8) Bandemia Code(s): D72.825 - Bandemia Status: Resolved Plan: Resolved, likely due to osteomyelitis. See above plan. (9) Hydronephrosis Code(s): N13.30 - Unspecified hydronephrosis Status: Resolved Plan: Left hydronephrosis and hydroureter without obstruction on CT (04/11). Currently voiding well, no CVA tenderness. UA (-)04/26. Not noted on CT on . - Continue to monitor I's and O's. (10) HTN (hypertension) Code(s): I10 - Essential (primary) hypertension Status: Acute Plan: Continue Cardizem and amiodarone (11) Diabetes Code(s): E11.9 - Type 2 diabetes mellitus without complications Status: Acute Plan: Hx of DM -Held home glipizide, Januvia -Accu-Cheks -Low-dose sliding scale -Hypoglycemia protocol in place (12) Malnutrition Code(s): E46 - Unspecified protein-calorie malnutrition Status: Acute Plan: This patient appears thin and possibly malnourished. Patient has significant muscle atrophy in arms and legs that are partially consistent with age and lack of activity. 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 Patient unsure of specific cause or diagnoses. Can follow up with Ophthalmology outpatient as needed (14) Suicidal ideation Code(s): R45.851 - Suicidal ideations Status: Acute Plan: Nurse reported that patient expressed fluctuating suicidal ideation and refusal of taking his medications om 05/11. His mood improved later on in the morning. Denies SI/HI -Citalopram 10 mg daily -Continue to assess status (15) Nutrition, metabolism, and development symptoms Code(s): R63.8 - Other symptoms and signs concerning food and fluid intake Status: Acute Plan: Fluids: per PO Diet: Diabetic supplements with protein shake Electrolytes: monitor and replete as needed DVT prophylaxis: Contraindicated due to upper GI bleed Disposition: SNF not taking patient at this time due to cost of Zerbaxa <Saji Richard - 05/14/18 14:33> - Attending Attestation This patient was seen and evaluated with the resident physician. I agree with the plan of care as discussed with me and documented in the resident note. Ayo Miranda MD <Ayo Miranda - 05/15/18 13:03> <Saji Richard - Last Filed: 05/14/18 14:33> (1) Osteomyelitis of ankle Qualifiers: Osteomyelitis type: other chronic Laterality: right Qualified Code(s): M86.671 - Other chronic osteomyelitis, right ankle and foot (9) Hydronephrosis Qualifiers: Hydronephrosis type: unspecified Qualified Code(s): N13.30 - Unspecified hydronephrosis <Ayo Miranda R - Last Filed: 05/15/18 13:03> (1) Osteomyelitis of ankle Qualifiers: Osteomyelitis type: other chronic Laterality: right Qualified Code(s): M86.671 - Other chronic osteomyelitis, right ankle and foot (9) Hydronephrosis Qualifiers: Hydronephrosis type: unspecified Qualified Code(s): N13.30 - Unspecified hydronephrosis <Saji Richard A - Last Filed: 05/14/18 14:33> (1) Osteomyelitis of ankle Qualifiers: Osteomyelitis type: other chronic Laterality: right Qualified Code(s): M86.671 - Other chronic osteomyelitis, right ankle and foot (9) Hydronephrosis Qualifiers: Hydronephrosis type: unspecified Qualified Code(s): N13.30 - Unspecified hydronephrosis <Ayo Miranda R - Last Filed: 05/15/18 13:03> (1) Osteomyelitis of ankle Qualifiers: Osteomyelitis type: other chronic Laterality: right Qualified Code(s): M86.671 - Other chronic osteomyelitis, right ankle and foot (9) Hydronephrosis Qualifiers: Hydronephrosis type: unspecified Qualified Code(s): N13.30 - Unspecified hydronephrosis
--- NOTE | 2018-05-14 15:31 | P.PNVS ---
Subjective Subjective/Hospital Course: reconsulted to reassess the RLE Patient is resting in bed without complaints Objective Vital Signs / I&O: Vital Signs 05/13/18 16:00 05/13/18 20:00 05/13/18 23:52 Temperature 97.3 F L 98.5 F 97.6 F Pulse Rate 55 L 54 L 55 L Respiratory Rate 18 19 18 Blood Pressure 116/60 105/56 L 134/64 Pulse Oximetry 96 96 96 05/14/18 00:00 05/14/18 04:00 05/14/18 08:00 Temperature 97.2 F L Pulse Rate 55 L 60 61 Respiratory Rate 19 18 Blood Pressure 127/61 135/61 Pulse Oximetry 95 96 05/14/18 10:45 05/14/18 12:00 Temperature 97.3 F L Pulse Rate 54 L Respiratory Rate 10 L 18 Blood Pressure 126/61 Pulse Oximetry 96 Intake & Output 05/13/18 05/14/18 05/14/18 18:59 06:59 18:59 Intake Total 782.5 / 782.5 882.5 / 882.5 100 / 100 Output Total 1400 / 1400 801 / 801 Balance -617.5 / -617.5 81.5 / 81.5 100 / 100 Weight 77.6 kg Intake: IV 362.5 / 362.5 462.5 / 462.5 100 / 100 Zerbaxa Inj 1,500 MG In NS Inj 100 / 100 200 / 200 100 / 100 100 ML @ 100 mls/hr IV.SIG Q8H ACE Rx#:[id number] Vancomycin Inj 1,250 MG In NS 262.5 / 262.5 262.5 / 262.5 Inj 250 ML @ 262.5 mls/hr IV. 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 I had a discussion with patient regarding his options and doesn't want a BKA. 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 I will perform an angiogram and re-attempt to treat this vessel in am. Risks, benifits and alternatives were explained to the patient and he understands and agrees to the procedure Saji Tomlin MD [facility] [phone]
--- NOTE | 2018-05-14 16:18 | P.CONPAL ---
Consult Service: Palliative Care Requesting Physician: Susana Erazo Reason for Consult: a. To assist with evaluation and management of symptoms including: Pain, weakness b. To assist medical decision maker(s) with: better understanding of current medical conditions; weighing benefits/burdens of medical treatment options; making medical treatment decisions. That is right do not unpacked that box on pain of Primary Care Provider: No Primary Care Physician History of Present Illness History of Present Illness: This is an 87-year-old male transferred from the nursing facility on 04/11 to the emergency department for low hemoglobin. The patient had just been seen by Dr. Oliva and had undergone arteriogram with lower extremity angiogram, right SFA and popliteal atherectomy to the right lower extremity. He was found to be confused, aware only of his name and that he was at the hospital. Diagnostic data on admission: * WBC 13.2, hemoglobin 6.7, hematocrit 20.8, platelets 533, PT 11.6, INR 1.1, APTT 27.3, sodium 130, potassium 3.7, BUN 17, creatinine 0.62, random glucose 150, calcium 8.1, magnesium 1.8, total bilirubin 0.2, AST 19, ALT 21, alk phos 104, troponin less than 0.02, lipase 63, urinalysis shows a clear yellow specimen with a pH of 1.016 otherwise negative, no culture indicated. * Abdomen pelvis CT showed marked destructive changes of the right proximal femur. Trochanteric nail hardware now extending beyond the femoral head cortex , partially destroyed. There is a patchy/permeative appearance of the shield tuberosity without obvious fracture. Stool ball in the rectum and a large amount of stool throughout the colon. Nonobstructing left renal calculi and left renal cyst, interval development of moderate left hydronephrosis and hydroureter without obvious obstructing stone. * CT of the head shows a stable appearance of the brain Patient reportedly had some black tarry stool but had a flex sigmoidoscopy done earlier this year which reportedly showed diverticulosis. He eventually agreed to colonoscopy which was done showing a significant amount of stool throughout the colon possibly interfering with the assessment however no sign of active bleeding was seen. He was found to have ulcers on the left posterior calf, left posterior ankle and a small draining wound on the right lateral thigh and right ankle. EGD showed a normal esophagus with mild gastritis in the gastric fundus, gastric body and gastric antrum. Deformity found in the duodenal bulb. Normal duodenal mucosa in the second part of the duodenum and third part of the duodenum. MRI of the right ankle showed osteomyelitis of the posterior calcaneus with near complete tear of the distal Achilles tendon. There is overlying cellulitis and subcutaneous edema with a small abscess adjacent to the distal Achilles tendon as measured above. There is edematous change on the plantar aspect of the foot with tenosynovitis. Mild bone edema in the tibia, nonspecific. He was evaluated by podiatry who initially recommended below the knee amputation which the patient refused then subsequently recommended a calcanectomy and after an extensive discussion that evening, the patient had 0 recollection of that conversation the next morning. Podiatry did not feel the patient was capacitated to make this decision and canceled that procedure. He underwent right lower angiogram with right popliteal INTERNATIONAL MARKETING MANAGER on 04/24 finding AT and PT occluded. Peroneal runoff to foot showed focal occlusion which the surgeon was unable to canalize beyond 0.014 wire. MRI of the right thigh with and without contrast showed osseous cutaneous fistulous track extending from the greater trochanter to the skin surface with small subcutaneous fluid collection identified. The collection appeared to communicate with the prosthetic component in the proximal femur. Edematous changes were noted along the vastus lateralis and iliotibial band. He was seen by orthopedic and underwent removal of hardware from the right femur, Synthes TFN, irrigation and debridement of skin, subcutaneous tissue, muscle and bone, insertion of antibiotic beads spacer, Stimulan. Past medical history Diabetes Hyperlipidemia MRSA Peripheral artery disease Diverticulosis Hemorrhoids Atrial fibrillation, paroxysmal GERD Surgical history Hip surgery Right lower extremity atherectomy Social history Denies smoking No significant alcohol use No illicit or prescription drug abuse. Family history Has 2 living children in [facility]. Patient was originally from [facility]. . Function/Cognitive Trajectory: Patient currently resides in a care home facility and is dependent for all ADLs. . Review of Systems Patient is nonverbal and unable to provide their own ROS. A 12 part ROS taken as best as possible from medical record and available family. Constitutional: Reports weight loss Musculoskeletal: Reports abnormal walking, Reports decreased muscle mass, Reports muscle weakness PMFSH - History History Provided By: Patient - Medical History Medical History: Medical History (Last Updated 05/01/18 @ 09:10 by Georgina Nathan) Weakness Diabetes HLD (hyperlipidemia) MDRO (multiple drug resistant organisms) resistance Onset Date: ~04/11/18 MRSA (methicillin resistant Staphylococcus aureus) Onset Date: ~04/30/18 PAD (peripheral artery disease) - Surgical History Surgical History: Surgical History (Last Reviewed 04/30/18 @ 18:01 by Rehan Leon MD) History of hip surgery - Family History Family History: Family History (Last Reviewed 04/30/18 @ 18:01 by Rehan Leon MD) Other Diabetes - Tobacco History Second Hand Smoke Exposure: No Tobacco Use In Past 30 Days: No Smoking Status: Former smoker Tobacco Type: Cigarettes - Alcohol History How Often Do You Have a Drink Containing Alcohol: Never - Substance Use History Substance History: No History of Abuse - Travel History Recent Travel in the [place] Within the Last 8 Weeks: No Recent Travel Out of the Country Within the Last 8 Weeks: No - Immunization History Tetanus Immunization: Unsure Hx Influenza Vaccine This Season: Yes Medications and Allergies Active Medications: Active Medications Hydrocodone Bitart/Acetaminophen ([place] 10/325) 1 tab PO Q4H [facility] Last Admin: 05/14/18 13:40 Dose: 1 tab Amiodarone HCl (Cordarone) 200 mg PO DAILY [facility] Last Admin: 05/14/18 09:35 Dose: 200 mg Ascorbic Acid (Vitamin C) 500 mg PO BID [facility] Last Admin: 05/14/18 09:36 Dose: 500 mg Citalopram Hydrobromide (Celexa) 10 mg PO DAILY [facility] Last Admin: 05/14/18 09:34 Dose: 10 mg Collagenase (Santyl Oint) 1 applicatio TOPICAL DAILY [facility] Last Admin: 05/14/18 09:36 Dose: 1 applicatio Dextrose (D50w Vial) 50 ml IV.PUSH UNSCH PRN PRN Reason: PER HYPOGLYCEMIA PROTOCOL Last Admin: 04/24/18 21:44 Dose: 50 ml Diphenhydramine HCl (Benadryl) 25 mg PO Q6H PRN PRN Reason: ITCHING Docusate Sodium (Colace) 100 mg PO BID [facility] Last Admin: 05/14/18 09:36 Dose: 100 mg Ferrous Sulfate (Ferosul) 325 mg PO TID [facility] Last Admin: 05/14/18 12:26 Dose: 325 mg Gabapentin (Neurontin) 600 mg PO TID [facility] Last Admin: 05/14/18 12:25 Dose: 600 mg Gentamicin Sulfate (Gentamicin 0.1% Cream) 1 applicatio TOPICAL BID [facility] Last Admin: 05/14/18 09:36 Dose: 1 applicatio Glucagon (Glucagon Inj) 1 mg OTHER PRN PRN PRN Reason: for Hypoglycemia Protocol Ceftolozane/Tazobactam 1,500 (mg/ Sodium Chloride) 100 mls @ 100 mls/hr IV.SIG Q8H [facility] Last Infusion: 05/14/18 10:40 Dose: Infused Vancomycin HCl 1,250 mg/ (Sodium Chloride) 262.5 mls @ 262.5 mls/hr IV.SIG Q18H [facility] Last Infusion: 05/14/18 03:32 Dose: Infused Insulin Aspart (Novolog Insulin Correctional Sugar Inj) 0 unit SQ ACHS [facility]; Protocol Last Admin: 05/14/18 13:15 Dose: Not Given Levothyroxine Sodium (Synthroid) 125 mcg PO DAILY@0600 [facility] Last Admin: 05/14/18 06:05 Dose: 125 mcg Magnesium Oxide (Mag-Ox) 400 mg PO QID [facility] Last Admin: 05/14/18 12:25 Dose: 400 mg Miscellaneous (Pill Splitter) 1 each OTHER UNSCH PRN PRN Reason: SEE LABEL COMMENTS Morphine Sulfate (Morphine Inj) 2 mg IV.PUSH Q3H PRN PRN Reason: BREAKTHROUGH PAIN Last Admin: 05/14/18 02:31 Dose: 2 mg Naloxone HCl (Narcan Inj) 0.4 mg IV.PUSH UNSCH PRN PRN Reason: SEE LABEL COMMENTS Pantoprazole Sodium (Protonix) 40 mg PO BID [facility] Last Admin: 05/14/18 09:36 Dose: 40 mg Pharmacy Profile Note (Vancomycin Consult Pharmacy) 1 each OTHER UNSCH PRN PRN Reason: Pharmacy to dose Polyethylene Glycol (Miralax) 17 gm PO DAILY [facility] Last Admin: 05/14/18 09:33 Dose: 17 gm Potassium Chloride (K-Dur) 20 meq PO BID [facility] Last Admin: 05/14/18 09:36 Dose: 20 meq Potassium Phos/Sodium Phos (K-Phos Neutral) 250 mg PO QID [facility] Last Admin: 05/14/18 12:25 Dose: 250 mg Pravastatin Sodium (Pravachol) 40 mg PO DAILY [facility] Last Admin: 05/14/18 09:33 Dose: 40 mg Sodium Chloride (Sodium Chloride) 1 gm PO TID [facility] Last Admin: 05/14/18 12:25 Dose: 1 gm Sodium Chloride (Ns Flush) 2 ml IV.FLUSH BID [facility] Last Admin: 05/14/18 09:36 Dose: 2 ml Sodium Chloride (Ns Flush) 2 ml IV.FLUSH PRN PRN PRN Reason: FLUSH AFTER USING IV ACCESS Last Admin: 05/07/18 08:59 Dose: 2 ml Allergies Allergy/AdvReac Type Severity Reaction Status Date / Time No Known Allergies Allergy Verified 04/08/18 12:35 Home Medications Medication Instructions Recorded Confirmed Type Lactobacillus acidoph-L.bulgar 1 tab PO DAILY 04/08/18 04/11/18 History [Floranex] amiodarone 200 mg PO DAILY 04/08/18 04/11/18 History diltiazem HCl 30 mg PO TID 04/08/18 04/11/18 History ferrous sulfate 325 mg PO TID 04/08/18 04/11/18 History gabapentin 300 mg PO TID 04/08/18 04/11/18 History glipizide 10 mg PO BID 04/08/18 04/11/18 History hydrocodone-acetaminophen 1 tab PO Q6H 04/08/18 04/11/18 History levothyroxine 125 mcg PO DAILY 04/08/18 04/11/18 History magnesium oxide 400 mg PO QID 04/08/18 04/11/18 History meloxicam 7.5 mg PO DAILY 04/08/18 04/11/18 History pravastatin 40 mg PO DAILY 04/08/18 04/11/18 History ranitidine HCl 300 mg PO DAILY 04/08/18 04/11/18 History sitagliptin [Januvia] 100 mg PO DAILY 04/08/18 04/11/18 History sod phos di, mono-K phos mono 1 tab PO QID 04/08/18 04/11/18 History [Phospha 250 Neutral] sodium chloride 1,000 mg PO TID 04/08/18 04/11/18 History ascorbic acid (vitamin C) [Vitamin 500 mg PO BID 04/11/18 04/11/18 History C] insulin aspart U-100 [Novolog 1 - 10 units SUBCUT DIRECTED 04/11/18 04/11/18 History U-100 Insulin aspart] Physical Exam Vital Signs: Vital Signs - 24 hr 05/13/18 16:00 05/13/18 20:00 05/13/18 23:52 Temperature 97.3 F L 98.5 F 97.6 F Pulse Rate 55 L 54 L 55 L Respiratory Rate 18 19 18 Blood Pressure 116/60 105/56 L 134/64 Pulse Oximetry 96 96 96 05/14/18 00:00 05/14/18 04:00 05/14/18 08:00 Temperature 97.2 F L Pulse Rate 55 L 60 61 Respiratory Rate 19 18 Blood Pressure 127/61 135/61 Pulse Oximetry 95 96 05/14/18 10:45 05/14/18 12:00 Temperature 97.3 F L Pulse Rate 54 L Respiratory Rate 10 L 18 Blood Pressure 126/61 Pulse Oximetry 96 I&O: Intake & Output 05/12/18 05/13/18 05/14/18 05/15/18 06:59 06:59 06:59 06:59 Intake Total 1252.5 / 1252.5 2032.5 / 2032.5 1665.0 / 1665.0 100 / 100 Output Total 1200 / 1200 3450 / 3450 2201 / 2201 Balance 52.5 / 52.5 -1417.5 / -1417.5 -536.0 / -536.0 100 / 100 Weight 172 lb 6.424 oz 171 lb 1.259 oz Physical Exam: CONSTITUTIONAL/GENERAL: This is elderly, cachectic male patient, in no apparent distress. TUBES/LINES/DRAINS: PIV SKIN: Scattered ecchymosis on upper and lower extremities, skin is dry with purpling on right second toe, multiple abrasions and wounds on feet and ankles bilaterally, large ecchymotic right heel decubitus HEAD: Atraumatic. Normocephalic. EYES: Left pupil 4 mm and oblong from previous traumatic injury, right pupil 2 mm and reactive, extraocular motions intact. No scleral icterus. No injection or drainage. Fundi not examined. ENT: Hearing grossly normal. Nose without bleeding or purulent drainage. Throat without visible erythema, exudates, masses, or lesions. NECK: Trachea midline. Supple, nontender. No palpable thyroid enlargement or nodularity. CARDIOVASCULAR: Regular rate and rhythm with2/6 systolic ejection murmurs, no gallops, or rubs. No JVD. Peripheral pulses symmetric. RESPIRATORY/CHEST: Symmetric, unlabored respirations. Clear to auscultation. Breath sounds equal bilaterally. No wheezes, rales, or rhonchi. GASTROINTESTINAL: Abdomen soft, non-tender, nondistended. No hepato-splenomegaly , or palpable masses. No guarding. Bowel sounds present. GENITOURINARY: Without palpable bladder distension. MUSCULOSKELETAL: Extremities without clubbing, cyanosis, or edema. No joint tenderness or effusion noted. No calf tenderness. No mottling or clubbing. LYMPHATICS: No palpable cervical or supraclavicular adenopathy. NEUROLOGICAL: Awake and alert. Generalized weakness. Follows commands. Cognitively pleasantly confused. Moves all extremities but has difficulty with bilateral lower extremities right greater than left secondary to pain. PSYCHIATRIC: No obvious anxiety/depression. no apparent hallucinations or other psychotic thought process. . Diagnostic Tests Laboratory: Laboratory Results - last 72 hr 05/11/18 05/11/18 05/12/18 17:50 21:35 06:00 WBC 10.0 RBC 3.06 L Hgb 9.2 L Hct 28.4 L MCV 92.9 MCH 30.1 MCHC 32.4 RDW 21.9 H Plt Count 395 MPV 7.4 Neut % (Auto) 61.9 Lymph % (Auto) 14.3 Campbell % (Auto) 9.5 H Eos % (Auto) 11.2 H Baso % (Auto) 3.1 H Neut # (Auto) 6.2 Lymph # (Auto) 1.4 Campbell # (Auto) 0.9 Eos # (Auto) 1.1 H Baso # (Auto) 0.3 H WBC Differential . Differential Comment Auto diff final Sodium Potassium Chloride Carbon Dioxide Anion Gap BUN Creatinine Estimated GFR POC Glucose 183 H 176 H Random Glucose Calcium 05/12/18 05/12/18 05/12/18 06:00 08:57 13:02 WBC RBC Hgb Hct MCV MCH MCHC RDW Plt Count MPV Neut % (Auto) Lymph % (Auto) Campbell % (Auto) Eos % (Auto) Baso % (Auto) Neut # (Auto) Lymph # (Auto) Campbell # (Auto) Eos # (Auto) Baso # (Auto) WBC Differential Differential Comment Sodium 133 L Potassium 4.6 Chloride 101 Carbon Dioxide 24.6 Anion Gap 7 BUN 13 Creatinine 0.61 Estimated GFR Greater than 89 POC Glucose 127 H 148 H Random Glucose 119 H Calcium 7.9 L 05/12/18 05/12/18 05/13/18 17:56 21:25 05:08 WBC 10.0 RBC 3.05 L Hgb 9.3 L Hct 28.1 L MCV 92.2 MCH 30.5 MCHC 33.1 RDW 21.5 H Plt Count 417 MPV 7.0 Neut % (Auto) 61.8 Lymph % (Auto) 13.8 Campbell % (Auto) 9.9 H Eos % (Auto) 12.0 H Baso % (Auto) 2.5 H Neut # (Auto) 6.2 Lymph # (Auto) 1.4 Campbell # (Auto) 1.0 H Eos # (Auto) 1.2 H Baso # (Auto) 0.3 H WBC Differential . Differential Comment Auto diff final Sodium Potassium Chloride Carbon Dioxide Anion Gap BUN Creatinine Estimated GFR POC Glucose 164 H 249 H Random Glucose Calcium 05/13/18 05/13/18 05/13/18 05:08 08:45 13:04 WBC RBC Hgb Hct MCV MCH MCHC RDW Plt Count MPV Neut % (Auto) Lymph % (Auto) Campbell % (Auto) Eos % (Auto) Baso % (Auto) Neut # (Auto) Lymph # (Auto) Campbell # (Auto) Eos # (Auto) Baso # (Auto) WBC Differential Differential Comment Sodium 132 L Potassium 4.7 Chloride 97 L Carbon Dioxide 27.5 Anion Gap 8 BUN 14 Creatinine 0.65 Estimated GFR Greater than 89 POC Glucose 168 H 176 H Random Glucose 142 H Calcium 8.1 L 05/13/18 05/13/18 05/14/18 17:47 20:00 07:31 WBC RBC Hgb Hct MCV MCH MCHC RDW Plt Count MPV Neut % (Auto) Lymph % (Auto) Campbell % (Auto) Eos % (Auto) Baso % (Auto) Neut # (Auto) Lymph # (Auto) Campbell # (Auto) Eos # (Auto) Baso # (Auto) WBC Differential Differential Comment Sodium Potassium Chloride Carbon Dioxide Anion Gap BUN Creatinine Estimated GFR POC Glucose 150 H 138 H 129 H Random Glucose Calcium 05/14/18 13:09 WBC RBC Hgb Hct MCV MCH MCHC RDW Plt Count MPV Neut % (Auto) Lymph % (Auto) Campbell % (Auto) Eos % (Auto) Baso % (Auto) Neut # (Auto) Lymph # (Auto) Campbell # (Auto) Eos # (Auto) Baso # (Auto) WBC Differential Differential Comment Sodium Potassium Chloride Carbon Dioxide Anion Gap BUN Creatinine Estimated GFR POC Glucose 140 H Random Glucose Calcium Result Diagrams: 05/15/18 04:57 05/15/18 04:57 Microbiology: Microbiology 04/27/18 12:43 Acid Fast Bacilli Smear - Final Wound - Thigh No acid fast bacilli seen Mycobacterial Culture - Preliminary No growth in 2 weeks 04/27/18 12:43 Fungal Smear - Final Wound - Thigh No fungal elements seen Fungal Culture - Preliminary No growth in 2 weeks Imaging: Abdomen/Pelvis CT 04/11/18 11:57 CONCLUSION: 1. There is marked destructive changes of the right proximal femur identified. The trochanteric nail hardware now extends beyond the femoral head cortex partially destroyed. There is also a patchy/permeative appearance of the shield tuberosity without obvious fracture. 2. Stool ball in the rectum and a large amount of stool throughout the colon. 3. Nonobstructing left renal calculi and left renal cyst. 4. Interval development of moderate left hydronephrosis and hydroureter without obvious obstructing stone. Head CT 04/11/18 11:59 CONCLUSION: 1. Stable appearance of the brain. . Ankle MRI 04/15/18 00:00 CONCLUSION: 1. Osteomyelitis of the posterior calcaneus with a near complete tear of the distal Achilles tendon. There is overlying cellulitis and subcutaneous edema with a small abscess adjacent to the distal Achilles tendon as measured above. There is edematous change on the plantar aspect of the foot with a tenosynovitis as above. No acute fracture identified. Mild bone edema tibia, nonspecific. Ankle X-Ray 04/15/18 00:00 CONCLUSION: Osteomyelitis of the posterior calcaneus with overlying soft tissue swelling and ulceration. No acute fracture. Femur MRI 04/25/18 00:00 CONCLUSION: 1. 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 The collection appears to communicate with the prosthetic component in the proximal femur. 2. Edematous changes are noted along the vastus lateralis and iliotibial band. Hip X-Ray 04/27/18 00:00 CONCLUSION: Hardware removal on the right. Abdomen/Pelvis CT 04/30/18 10:28 Review of bone windows reveals moderate degenerative changes in the lumbar spine and both SI joints. CONCLUSION: 1. Large bolus of stool in the rectum with stool throughout the colon suggesting constipation with possible impaction 2. Prominent gallbladder without stones 3. 2 nonobstructing stones in the left kidney. 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 04/27: Removal of hardware right femur, Synthes TFN, irrigation and debridement of skin, subcu tissue, muscle and bone with insertion of Stimulan and antibiotic beads spacer. Patient/Family Conference Present at Family Conference: Left message with Kyleigh Landa, patient's manager care management, hired by his daughter Ewa as she lives in [facility]. Pending return call to discuss purpose of consult clinical decision making and below listed items. 18: 45 received return call from Kyleigh Landa, who is the patient's legal guardian, and updated her as to clinical status and medical opinions. She is aware of his poor condition and prognosis and at this time believes that hospice would be in his best interest. He was again seen by vascular surgery who will attempt one more time to open improved blood supply to his feet on . Kyleigh wishes to discuss with his daughter, Ewa, who resides in [facility] , prior to making a final decision regarding amputation versus hospice. Whether amputation occurs or comfort measures are chosen, patient would be hospice appropriate. . Family Conference Location: Telephone Issues Discussed: * Palliative care role, purpose, approach * Additional medical, psychosocial, and spiritual history * Patients general health, functional status, and cognitive changes in the months leading up to the current hospitalization * Patient/family understanding of the current medical problems * Patient/family understanding of prognosis * Patients goals of care as best understood from advance directives and/or conversations and/or values * Current medical treatment options and benefits/burdens of those options * Likely scenarios comparing ongoing aggressive care with a transition to comfort measures only * Questions answered to the best of my ability * Palliative care contact information provided Assessment and Plan Pertinent Non-Medical Issues: Psychosocial: He was born in [place] and retired from [employer]. He has been twice and is now . He has 2 children that live in [place]. His daughter Ewa is his healthcare decision maker. Spiritual: Party Plan Dealer available. Legal: Has an elder care parts chaser, Rubin Stack Ethical issues impacting care: Patient is confused. . Important Contacts: Daughter: Ewa Tovar ([facility]) [phone] regional sales coordinator: Kyleigh Landa (HIPPA release on chart for her to receive info) Clinical Research Physician: Rubin Sequeira Prognosis: His prognosis is guarded. He is of advanced age with multiple comorbidities. He has several chronic nonhealing wounds, severe peripheral artery disease and a large calcaneal ulcer on his right heel. He has a draining wound on his right hip and is at elevated risk for continued infections, complications, possible loss of limb, sepsis and even . He is currently refusing amputation of the right foot but has poor insight, is confused and does not appear to have capacity to make that decision. Contact being established with patient's manager care management and daughter to clarify goals however, decreased vascularity to his periphery raises his risk of continued infection and failure regardless of the decision to amputate or not. . Code Status: No Code DNR Plan: PLAN: Legal decision maker: Patient is not capacitated for decision-making. His daughter Ewa has been designated as his healthcare proxy and she lives in [facility]. To that end she has hired a local manager care management, Kyleigh Landa, to assist her in decision-making. Goals: To be determined. CODE STATUS: DO NOT RESUSCITATE SYMPTOMS: * Pain: He complains of pain in the right foot and heel, worse with movement, intermittent, stabbing with no relieving factors except lying still and opioids. He is receiving hydrocodone/acetaminophen/10/325 every 4 hours as needed. He is taking an average of 4-6 tablets daily. * Weakness: He is generally weak and in prior admissions required moderate to maximum assistance to perform a pivot transfer. Given the wounds on his heel, progressive ischemia of the second toe and prolonged hospitalization, he may benefit from rehab. SUMMARY This is an 87-year old cachectic male transferred from care home facility due to anemia, found to have multiple wounds with right lower extremity at elevated risk of worsening ischemic injury. He is declining amputation is not capacitated to make that decision pending contact with his daughter to determine goals of care. He is at elevated risk of continued complications, infections and decline. He would be hospice appropriate if goals were consistent. Palliative care will continue to follow the patient during hospital course as condition evolves, to assist patient/decision-maker with understanding of their medical conditions, weighing benefits/burdens of treatment options, for clarification of goals of treatment. Additionally will assist with any symptoms of palliative concern. . Appreciation Thank you for the opportunity to participate in the care of Rufus Escobedo. Attestation Attestation: To help prompt me to consider important information that might be impacting today's encounter and assessment, information from prior notes written by myself or my colleagues may have been "brought forward" into today's note. My signature on this note, however, is an attestation that I personally performed the exam, history, and/or decision-making noted today, and, unless otherwise indicated, the interactions with patient, family, and staff as well as the review of records all occurred today. I also attest that the listed assessment and stated plan reflect my best clinical judgment today based on the combination of historical information, prior notes, and today's exam/ interactions. When time spent is documented, it refers only to time spent today by the signer, or if indicated, combined time spent today by collaborating physician/nurse practitioner. .
[2018-05-15] MEDS: SODIUM CHLOR 0.9% IV.SIG SCH ×3 (01:52→23:27)
[2018-05-15] MEDS: TAZOBACTAM IV.SIG SCH ×3 (01:52→23:27)
[2018-05-15] MEDS: CEFTOLOZANE IV.SIG SCH ×3 (01:52→23:27)
[2018-05-15] MEDS: Levothyroxine 125 MCG Tablet PO SCH (05:55)
[2018-05-15 06:09] LABS: Baso # (Auto) 0.3 th/mm3 (0.0-0.2); Baso % (Auto) 2.7 % (0.0-2.0); Eos # (Auto) 0.7 th/mm3 (0.0-0.4); Eos % (Auto) 7.7 % (0.0-4.0); Hematocrit 31.2 % (39.0-51.0); Hemoglobin 10.5 gm/dL (13.0-17.0); Lymph # (Auto) 1.3 th/mm3 (1.0-4.8); Mean Corpuscular HGB Conc 33.5 % (32.0-36.0); Mean Corpuscular Volume 89.5 fL (80.0-100.0); Mean Platelet Volume 7.3 fL (7.0-11.0); Mono # (Auto) 0.8 th/mm3 (0.0-0.9); Mono % (Auto) 8.4 % (0.0-8.0); Neut # (Auto) 6.7 th/mm3 (1.8-7.7); Neut % (Auto) 68.2 % (16.0-70.0); Platelet Count 387 th/mm3 (150-450); Red Blood Count 3.49 mil/mm3 (4.50-5.90); White Blood Count 9.8 th/mm3 (4.0-11.0)
[2018-05-15 06:43] LABS: Anion Gap 8 meq/L (5-15); Blood Urea Nitrogen 13 mg/dL (7-18); Calcium 8.5 mg/dL (8.5-10.1); Carbon Dioxide 26.2 meq/L (21.0-32.0); Chloride 96 meq/L (98-107); Glomerular Filtration Rate Greater Than 89 mL/min (>89); Glucose,Random 113 mg/dL (74-106); Potassium 4.7 meq/L (3.5-5.1); Sodium 130 meq/L (136-145)
[2018-05-15] MEDS: Polyethylene Glycol 3350 17 GM Packet PO SCH (09:00)
[2018-05-15] MEDS ORDERED: Heparin/NS PF Inj 1,000 ML ONE (09:48)
[2018-05-15] MEDS ORDERED: Heparin 10,000 UNITS/10 ML Vial (for IV use) ONE (09:48)
[2018-05-15] MEDS ORDERED: Lidocaine 2% Inj 50 ML Vial ONE (09:50)
--- NOTE | 2018-05-15 10:44 | P.PNFP ---
Subjective Interval history: Patient seen and examined this morning. No acute events overnight. Denies nausea, vomiting, fever, chills abdominal pain, chest pain, shortness breath, lightheadedness, dizziness, change in bowel or bladder habits. Notes discoloration of his right second toe. No other complaints today. <Saji Richard - 05/15/18 10:43> Results - Labs Result diagrams: 05/15/18 04:57 05/15/18 04:57 <Ayo Miranda - 05/15/18 13:11> Abnormal lab results 05/14/18 05/14/18 05/14/18 Range/Units 13:09 17:44 20:26 RBC (4.50-5.90) mil/mm3 Hgb (13.0-17.0) gm/dL Hct (39.0-51.0) % RDW (11.6-17.2) % Bell % (Auto) (0.0-8.0) % Eos % (Auto) (0.0-4.0) % Baso % (Auto) (0.0-2.0) % Eos # (Auto) (0.0-0.4) th/mm3 Baso # (Auto) (0.0-0.2) th/mm3 Sodium (136-145) meq/L Chloride (98-107) meq/L Creatinine (0.60-1.30) mg/dL POC Glucose 140 H 138 H 145 H (68-110) mg/dl Random Glucose (74-106) mg/dL 05/15/18 05/15/18 05/15/18 Range/Units 04:57 04:57 09:21 RBC 3.49 L (4.50-5.90) mil/mm3 Hgb 10.5 L (13.0-17.0) gm/dL Hct 31.2 L (39.0-51.0) % RDW 21.0 H (11.6-17.2) % Bell % (Auto) 8.4 H (0.0-8.0) % Eos % (Auto) 7.7 H (0.0-4.0) % Baso % (Auto) 2.7 H (0.0-2.0) % Eos # (Auto) 0.7 H (0.0-0.4) th/mm3 Baso # (Auto) 0.3 H (0.0-0.2) th/mm3 Sodium 130 L (136-145) meq/L Chloride 96 L (98-107) meq/L Creatinine 0.58 L (0.60-1.30) mg/dL POC Glucose 176 H (68-110) mg/dl Random Glucose 113 H (74-106) mg/dL 05/15/18 Range/Units 12:42 RBC (4.50-5.90) mil/mm3 Hgb (13.0-17.0) gm/dL Hct (39.0-51.0) % RDW (11.6-17.2) % Bell % (Auto) (0.0-8.0) % Eos % (Auto) (0.0-4.0) % Baso % (Auto) (0.0-2.0) % Eos # (Auto) (0.0-0.4) th/mm3 Baso # (Auto) (0.0-0.2) th/mm3 Sodium (136-145) meq/L Chloride (98-107) meq/L Creatinine (0.60-1.30) mg/dL POC Glucose 121 H (68-110) mg/dl Random Glucose (74-106) mg/dL Short CBC 05/15/18 Range/Units 04:57 WBC 9.8 (4.0-11.0) th/mm3 Hgb 10.5 L (13.0-17.0) gm/dL Hct 31.2 L (39.0-51.0) % Plt Count 387 (150-450) th/mm3 [facility] 05/15/18 04:57 Sodium 130 L Potassium 4.7 Chloride 96 L Carbon Dioxide 26.2 BUN 13 Creatinine 0.58 L Calcium 8.5 <Ayo Miranda R - 05/15/18 13:11> Abnormal lab results 05/14/18 05/14/18 05/14/18 Range/Units 13:09 17:44 20:26 RBC (4.50-5.90) mil/mm3 Hgb (13.0-17.0) gm/dL Hct (39.0-51.0) % RDW (11.6-17.2) % Bell % (Auto) (0.0-8.0) % Eos % (Auto) (0.0-4.0) % Baso % (Auto) (0.0-2.0) % Eos # (Auto) (0.0-0.4) th/mm3 Baso # (Auto) (0.0-0.2) th/mm3 Sodium (136-145) meq/L Chloride (98-107) meq/L Creatinine (0.60-1.30) mg/dL POC Glucose 140 H 138 H 145 H (68-110) mg/dl Random Glucose (74-106) mg/dL 05/15/18 05/15/18 05/15/18 Range/Units 04:57 04:57 09:21 RBC 3.49 L (4.50-5.90) mil/mm3 Hgb 10.5 L (13.0-17.0) gm/dL Hct 31.2 L (39.0-51.0) % RDW 21.0 H (11.6-17.2) % Bell % (Auto) 8.4 H (0.0-8.0) % Eos % (Auto) 7.7 H (0.0-4.0) % Baso % (Auto) 2.7 H (0.0-2.0) % Eos # (Auto) 0.7 H (0.0-0.4) th/mm3 Baso # (Auto) 0.3 H (0.0-0.2) th/mm3 Sodium 130 L (136-145) meq/L Chloride 96 L (98-107) meq/L Creatinine 0.58 L (0.60-1.30) mg/dL POC Glucose 176 H (68-110) mg/dl Random Glucose 113 H (74-106) mg/dL Short CBC 05/15/18 Range/Units 04:57 WBC 9.8 (4.0-11.0) th/mm3 Hgb 10.5 L (13.0-17.0) gm/dL Hct 31.2 L (39.0-51.0) % Plt Count 387 (150-450) th/mm3 BMP 05/15/18 04:57 Sodium 130 L Potassium 4.7 Chloride 96 L Carbon Dioxide 26.2 BUN 13 Creatinine 0.58 L Calcium 8.5 <[email or web address] - 05/15/18 10:43> Physical Exam Vital signs: Vital Signs 05/14/18 16:00 05/14/18 19:55 05/14/18 20:00 Temperature 98.7 F 97.4 F L Pulse Rate 57 L 60 60 Respiratory Rate 20 20 Blood Pressure 140/66 140/66 Pulse Oximetry 97 97 05/14/18 23:50 05/15/18 00:00 05/15/18 04:00 Temperature 97.3 F L 97.1 F L Pulse Rate 59 L 58 L 55 L Respiratory Rate 20 16 Blood Pressure 137/63 121/57 L Pulse Oximetry 96 99 05/15/18 08:00 05/15/18 09:45 Temperature 97.4 F L Pulse Rate 62 Respiratory Rate 18 10 L Blood Pressure 136/62 Pulse Oximetry 98 Intake & Output 05/14/18 05/15/18 05/15/18 18:59 06:59 18:59 Intake Total 1060 / 1060 702.5 / 702.5 Output Total 1200 / 1200 1400 / 1400 Balance -140 / -140 -697.5 / -697.5 Weight 75.6 kg Intake: IV 100 / 100 462.5 / 462.5 Zerbaxa Inj 1,500 MG In NS Inj 100 / 100 200 / 200 100 ML @ 100 mls/hr IV.SIG Q8H ACE Rx#:[id number] Vancomycin Inj 1,250 MG In NS 262.5 / 262.5 Inj 250 ML @ 262.5 mls/hr IV. SIG Q18H ACE Rx#:[id number] Oral 960 / 960 240 / 240 Output: Urine 1200 / 1200 1400 / 1400 Other: Date of Last Bowel Movement 05/13/18 05/15/18 05/13/18 # Bowel Movements 1 1 <Ayo Miranda R - 05/15/18 13:11> Vital Signs 05/14/18 10:45 05/14/18 12:00 05/14/18 16:00 Temperature 97.3 F L 98.7 F Pulse Rate 53 L 57 L Respiratory Rate 10 L 18 20 Blood Pressure 126/61 140/66 Pulse Oximetry 96 97 05/14/18 19:55 05/14/18 20:00 05/14/18 23:50 Temperature 97.4 F L 97.3 F L Pulse Rate 60 60 59 L Respiratory Rate 20 20 Blood Pressure 140/66 137/63 Pulse Oximetry 97 96 05/15/18 00:00 05/15/18 04:00 05/15/18 08:00 Temperature 97.1 F L 97.4 F L Pulse Rate 58 L 55 L 62 Respiratory Rate 16 18 Blood Pressure 121/57 L 136/62 Pulse Oximetry 99 98 Intake & Output 05/14/18 05/15/18 05/15/18 18:59 06:59 18:59 Intake Total 1060 / 1060 702.5 / 702.5 Output Total 1200 / 1200 1400 / 1400 Balance -140 / -140 -697.5 / -697.5 Weight 75.6 kg Intake: IV 100 / 100 462.5 / 462.5 Zerbaxa Inj 1,500 MG In NS Inj 100 / 100 200 / 200 100 ML @ 100 mls/hr IV.SIG Q8H ACE Rx#:[id number] Vancomycin Inj 1,250 MG In NS 262.5 / 262.5 Inj 250 ML @ 262.5 mls/hr IV. SIG Q18H ACE Rx#:[id number] Oral 960 / 960 240 / 240 Output: Urine 1200 / 1200 1400 / 1400 Other: Date of Last Bowel Movement 05/13/18 05/15/18 05/13/18 # Bowel Movements 1 1 <Saji Richard - 05/15/18 10:43> Narrative: GENERAL: Pleasant elderly male thin, appears malnourished. Alert to person and place but not time. SKIN: Cool and dry. No generalized rash. HEAD: Atraumatic. Normocephalic. No temporal wasting, or tenderness. EYES: Anisocoria, larger left pupil, EOMI CARDIOVASCULAR: Regular rate and rhythm. RESPIRATORY: Clear to auscultation. Breath sounds equal bilaterally. No rales , wheezing or rhonchi ABDOMEN: Soft, non-tender, nondistended. No guarding. No rebound. No organomegaly. EXTREMITIES: No edema. Atrophic muscular changes in both legs bilaterally. Patient able to move toes bilaterally and no decreased sensation. Heels wrapped , C/D/I. Increasingly dark purple discoloration of left second toe up to the PIP joint, and distal left first toe, sensation still intact. <Saji Richard - 05/15/18 10:43> - Urinary Catheter Management Condom Cath placed during this visit: no <Ayo Miranda 05/15/18 13:11> no <Saji Richard 05/15/18 10:43> Reason for continuing: Not indwelling catheter <Saji Richard 05/15/18 10 :43> Indwelling Urethral Catheter Cath placed during this visit: no <Ayo Miranda 05/15/18 13:11> yes, but has since been removed by the nurse <Saji Richard 05/15/18 10:43> Reason for continuing: Not indwelling catheter <Saji Richard 05/15/18 10 :43> Insertion date: 04/11/18 <Saji Richard 05/15/18 10:43> Insertion time: 21:08 <Saji Richard 05/15/18 10:43> Removal date: 04/12/18 <Saji Richard 05/15/18 10:43> Removal time: 11:35 <Saji Richard 05/15/18 10:43> Straight Cath placed during this visit: no <Ayo Miranda 05/15/18 13:11> yes <Saji Richard 05/15/18 10:43> Reason for continuing: Other continuation reason <Saji Richard 05/15/18 10:43> Insertion date: 04/11/18 <Saji Richard 05/15/18 10:43> Insertion time: 21:08 <Saji Richard 05/15/18 10:43> Assessment and Plan - Assessment (1) Osteomyelitis of ankle Code(s): M86.9 - Osteomyelitis, unspecified Status: Acute (2) Ischemia of foot Code(s): I99.8 - Other disorder of circulatory system Status: Acute (3) Anemia Code(s): D64.9 - Anemia, unspecified Status: Acute (4) Infection associated with internal hip prosthesis Code(s): T84.59XA - Infection and inflammatory reaction due to other internal joint prosthesis, initial encounter; Z96.649 - Presence of unspecified artificial hip joint Status: Acute (5) Chronic wound of extremity Status: Chronic (6) MRSA (methicillin resistant staph aureus) culture positive Code(s): Z22.322 - Carrier or suspected carrier of Methicillin resistant Staphylococcus aureus Status: Acute (7) PAD (peripheral artery disease) Code(s): I73.9 - Peripheral vascular disease, unspecified Status: Chronic (8) Bandemia Code(s): D72.825 - Bandemia Status: Resolved (9) Hydronephrosis Code(s): N13.30 - Unspecified hydronephrosis Status: Resolved (10) HTN (hypertension) Code(s): I10 - Essential (primary) hypertension Status: Acute (11) Diabetes Code(s): E11.9 - Type 2 diabetes mellitus without complications Status: Acute (12) Malnutrition Code(s): E46 - Unspecified protein-calorie malnutrition Status: Acute (13) Anisocoria Code(s): H57.02 - Anisocoria Status: Acute (14) Suicidal ideation Code(s): R45.851 - Suicidal ideations Status: Acute (15) Nutrition, metabolism, and development symptoms Code(s): R63.8 - Other symptoms and signs concerning food and fluid intake Status: Acute <Ayo Miranda - 05/15/18 13:11> (1) Osteomyelitis of ankle Code(s): M86.9 - Osteomyelitis, unspecified Status: Acute Plan: Osteomyelitis of right ankle, culture positive for MRSA of right thigh wound. Wound culture of right ankle shows Pseudomonas and multidrug resistant Proteus as well as group D enterococcus. -Bcx NGTD Podiatry had been consulted, recommended below-knee amputation, patient refused , podiatry history below Vascular surgery consulted * s/p [facility] of popliteal stenosis on 04/24 * Anterior tibial, posterior tibia and peritoneal artery occluded Lower extremity pulses appreciated Via Doppler. Right popliteal pulse appreciated on exam ID consulted, appreciate recs * Continue vancomycin--until Jun 07, 6 weeks after hardware removal for the R hip * Continue Zerbaxa--for the heel ulcer and osteo due to resistance of organisms Wound care consulted, appreciate recs * See note from 04/25 * follow recommendations * Pain management with [facility] scheduled, gabapentin, morphine for breakthrough pain Podiatry history; * plan for patient to have calcanectomy on 04/26 however due to patient's inability to recall presurgery discussion when seen by podiatry the morning of 04/26 Dr. Urena will no longer be performing calcanectomy procedure. * Recommends: betadine wet to dry daily and if foot/heel becomes acutely infected rec as patient is unable to care for himself or able to mentally process limb salvage procedure options. In addition, the likelihood of failure was already high due to the low vascularity to the right lower limb. * Podiatry has signed off. * Discussed option of below-knee amputation of right lower extremity and Patient still not interested (2) Ischemia of foot Code(s): I99.8 - Other disorder of circulatory system Status: Acute Plan: Patient with developing ischemia of right 1st and 2nd toe. Vascular surgery reconsulted. -To have additional vascular procedure today 05/15 -Patient continues to refuse BKA -Palliative care attempting to contact medical proxy to further determine goals of care (3) Anemia Code(s): D64.9 - Anemia, unspecified Status: Acute Plan: On admission found to have hemoglobin of 6.6, status post 2 units RBCs transfused. Had tarry stools, endoscopy and colonoscopy benign other than small ulcer in rectum. Hemoglobin stable. -Trend H/H (4) Infection associated with internal hip prosthesis Code(s): T84.59XA - Infection and inflammatory reaction due to other internal joint prosthesis, initial encounter; Z96.649 - Presence of unspecified artificial hip joint Status: Acute Plan: Found to have right hip prosthesis infection. Irrigation, debridement, hardware removal and placement of antibiotic beads (04/27). -Orthopedics consulted, appreciate recommendations -Recommend 2-week follow-up, antibiotics per ID for chronic osteomyelitis (5) Chronic wound of extremity Status: Chronic Plan: Patient currently follows up with wound care as an outpatient Wound management: Right hip wound, super absorbant dressing daily Skin tear lower left extremity, Santyl covered and dry dressing daily Right heel wound, apply gentamicin cream twice daily, see above plan for associated osteomyelitis Wound care consulted, appreciate recommendations * Cleanse wound to R Achilles heel with normal saline only and pat dry. Apply gentamicin mixed with Santyl 50/ 50 and apply to wound bed * Cover with ABD pad, and secure with rolled gauze and tape. Change dressing daily, until seen by podiatry. * Cleanse wound to R hip see updated note from 04/25 and follow ortho rec for dressing * Cleanse wound to L posterior lower leg with normal saline and pat dry. Apply optifoam gentle 4x4 dressing change dressing every 3 days or PRN if saturated or dislodged. * Sacral wound: -Please cleanse sacral area gently with Remedy barrier wipes and pat dry. Apply Cavilon skin barrier film spray to sacral area BID and PRN and leave open to air. -Turn and reposition patient every 2 hours from L to R side limiting time spent on back to P.T. and meals -Patient placed on low airloss bed/ mattress -Will try to get in contact with wound care for re-evaluation of sacral wound , stable on exam (6) MRSA (methicillin resistant staph aureus) culture positive Code(s): Z22.322 - Carrier or suspected carrier of Methicillin resistant Staphylococcus aureus Status: Acute Plan: This patient suffers from chronic nonhealing wounds likely secondary to peripheral arterial disease and DM. Patient had wound from right thigh cultured which ultimately grew MRSA. -Monitor for fevers and signs of systemic illness -Antibiotic therapy as above (7) PAD (peripheral artery disease) Code(s): I73.9 - Peripheral vascular disease, unspecified Status: Chronic Plan: s/p recent right LE arterectomy. s/p vascular procedure as above on 04/24 (8) Bandemia Code(s): D72.825 - Bandemia Status: Resolved Plan: Resolved, likely due to osteomyelitis. See above plan. (9) Hydronephrosis Code(s): N13.30 - Unspecified hydronephrosis Status: Resolved Plan: Left hydronephrosis and hydroureter without obstruction on CT (04/11). Currently voiding well, no CVA tenderness. UA (-)04/26. Not noted on CT on . - Continue to monitor I's and O's. (10) HTN (hypertension) Code(s): I10 - Essential (primary) hypertension Status: Acute Plan: Continue Cardizem and amiodarone (11) Diabetes Code(s): E11.9 - Type 2 diabetes mellitus without complications Status: Acute Plan: Hx of DM -Held home glipizide, Januvia -Accu-Cheks -Low-dose sliding scale -Hypoglycemia protocol in place (12) Malnutrition Code(s): E46 - Unspecified protein-calorie malnutrition Status: Acute Plan: This patient appears thin and possibly malnourished. Patient has significant muscle atrophy in arms and legs that are partially consistent with age and lack of activity. 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 Patient unsure of specific cause or diagnoses. Can follow up with Ophthalmology outpatient as needed (14) Suicidal ideation Code(s): R45.851 - Suicidal ideations Status: Acute Plan: Nurse reported that patient expressed fluctuating suicidal ideation and refusal of taking his medications om 05/11. His mood improved later on in the morning. Denies SI/HI -Citalopram 10 mg daily -Continue to assess status (15) Nutrition, metabolism, and development symptoms Code(s): R63.8 - Other symptoms and signs concerning food and fluid intake Status: Acute Plan: Fluids: per PO Diet: Diabetic supplements with protein shake Electrolytes: monitor and replete as needed DVT prophylaxis: Contraindicated due to upper GI bleed Disposition: SNF not taking patient at this time due to cost of Zerbaxa <Saji Richard - 05/15/18 10:40> - Attending Attestation This patient was seen and evaluated with the resident physician. I agree with the plan of care as discussed with me and documented in the resident note. Ayo Miranda MD <Ayo Miranda - 05/15/18 13:11> <Saji Richard - Last Filed: 05/15/18 10:40> (1) Osteomyelitis of ankle Qualifiers: Osteomyelitis type: other chronic Laterality: right Qualified Code(s): M86.671 - Other chronic osteomyelitis, right ankle and foot (9) Hydronephrosis Qualifiers: Hydronephrosis type: unspecified Qualified Code(s): N13.30 - Unspecified hydronephrosis <Ayo Miranda R - Last Filed: 05/15/18 13:11> (1) Osteomyelitis of ankle Qualifiers: Osteomyelitis type: other chronic Laterality: right Qualified Code(s): M86.671 - Other chronic osteomyelitis, right ankle and foot (9) Hydronephrosis Qualifiers: Hydronephrosis type: unspecified Qualified Code(s): N13.30 - Unspecified hydronephrosis <Saji Richard A - Last Filed: 05/15/18 10:40> (1) Osteomyelitis of ankle Qualifiers: Osteomyelitis type: other chronic Laterality: right Qualified Code(s): M86.671 - Other chronic osteomyelitis, right ankle and foot (9) Hydronephrosis Qualifiers: Hydronephrosis type: unspecified Qualified Code(s): N13.30 - Unspecified hydronephrosis <Ayo Miranda R - Last Filed: 05/15/18 13:11> (1) Osteomyelitis of ankle Qualifiers: Osteomyelitis type: other chronic Laterality: right Qualified Code(s): M86.671 - Other chronic osteomyelitis, right ankle and foot (9) Hydronephrosis Qualifiers: Hydronephrosis type: unspecified Qualified Code(s): N13.30 - Unspecified hydronephrosis
[2018-05-15] MEDS ORDERED: Iohexol 350 MG/ML 100 ML Vial (for Cath Lab) IVCONTRAST ONE (11:31)
[2018-05-15] MEDS ORDERED: fentaNYL Citrate Inj 100 MCG/2 ML Ampul ONE (11:52)
--- NOTE | 2018-05-15 12:26 | CATHPROC ---
Arimaz HIS Report Study Information Study Number Admission Scheduled Start Study Start [id number] Apr 11 2018 1:52PM 05/15/2018 May 15 2018 9:52AM [place] Service Cardiac Pacer/ICD Admit Source Facility Department Emergency department [facility] - Anchorer Physician and Clinical Staff Initial Saji Negro Chief Procurement Officer Tran Stubbs,RN Recorder Vivian Ramirez,RT(R) (BS) Scrub Toño HillRT(R) Procedures Performed Procedure Location (Site) Vessel Name Abdominal Angiogram Abd Aorta (A3) Aorta CORPORATE DEVELOPMENT OFFICER Fem Art (left) Femoral Art CORPORATE DEVELOPMENT OFFICER Peroneal (right) Popliteal PTCA Peroneal (right) Popliteal Wire insertion Fem Art (left) Femoral Art Equipment Time Traffic Operations Engineer Description Size Mfg Part Number Used/Scraped PERCLOSE, PRO GLIDE CLOSER 12:02 [employer] FR 6 [id number] *[id number] Used DEVICE [id number] 09:55 [employer] WIRE, SUPERCORE 190CM Used *[id number] 09:55 ANGIO-DYNAMICS OMNI FLUSH 65CM CATHETER FR 4 Used *[id number] WIRE, ASAHI ASTATO XS 20 [id number] 11:12 ASAHI INTECC 300CM Used 300CM *[id number] DBP- CARDIOVASCULAR CATHETER, MICRO CROWN 11:46 [id number] Used SYSTEMS INC. 1.25MM *[id number] CARDIOVASCULAR [id number] 11:39 WIRE, FIRM (VIPER) 335 Used SYSTEMS INC. *[id number] INTRODUCER SET, 09:55 [employer]OOK INC. FR 5 [id number] *[id number] Used MICROPUNCTURE STIFF CATHETER, CXI SUPPORT 2.6FR 10:27 COOK/GERRI [id number] Used 0.18 WIRE, GUIDE APPROACH HYDRO [id number] 10:22 COOK/GERRI 300CM Used ST *[id number] WIRE, GUIDE APPROACH HYDRO [id number] 11:23 COOK/GERRI 300CM Used ST *[id number] WIRE, GUIDE APPROACH HYDRO [id number] 10:42 COOK/GERRI 300CM Used ST *[id number] ENDOVASCULAR BALLOON, NANOCROSS 1.5 X [id number] 10:33 1.5 X 40 Used COMPANY 40MM 150CM *[id number] ENDOVASCULAR BALLOON, NANOCROSS 3.0 X [id number] 11:52 3.0 X 150 Used COMPANY 150MM 150CM *[id number] ENDOVASCULAR BALLOON, NANOCROSS 3.0 X 10:54 3.0 X 40 [id number] Used COMPANY 40MM 150CM ENDOVASCULAR CATHETER, FR4 TRAILBLAZER [id number] 10:31 150CM Used COMPANY .014 *[id number] BALLOON, EVERCROSS 3 X 150 [id number] 11:26 [employer] 3 X 150 Used 135CM *[id number] BALLOON, PACIFIC PLUS 2 X 40 [id number] 11:06 [employer] 2 X 40 Used 130CM *1089031 [id number] 09:55 [employer] INDUSTRIES PACK, CCL CUSTOM * Used *[id number] BALLOON, 1.25 X 15MM [id number] 10:46 MEDTRONIC 15MM Used SPRINTER LEGEND OTW *3631024 [id number] 11:54 [employer] MEDICAL 30 AMAN INDEFLATOR Used *[id number] PROBE COVER, STERILE AL8530 09:55 [employer] MEDICAL * Used ULTRASOUND W/ GEL *[id number] 09:55 NAMIC MANIFOLD, 4 PORT * Used *[id number] 09:55 [employer]COMED OMNIPAQUE, 300 MG, 150ML 150ML [id number] Used 09:55 [employer]ED OMNIPAQUE, 300 MG, 50ML 50ML [id number] Used 10:42 [employer]ED OMNIPAQUE, 300 MG, 50ML 50ML [id number] Used 10:42 NY[employer]ED OMNIPAQUE, 300 MG, 50ML 50ML [id number] Used CATHETER, QUICK CROSS 518-081 11:32 [employer] .035 Used EXTREME 135CM *[id number] CATHETER, SUPPORT .014 QUICK- 518-032 10:38 [employer] .014 Used CROSS [id number] 09:55 TERUMO MEDICAL SHEATH, FR5 TERUMO (10CM) FR 5 Used *0663249 SHEATH, FR6 PINNACLE 10:17 TERUMO MEDICAL/GERRI FR 6 [id number] Used DESTINATION 65CM WIRE, ANGLED GLIDE .035 [id number] 09:55 TERUMO MEDICAL/GERRI 260CM Used 260CM *[id number] Equipment Model, Serial, Lot Number and Expiration Data Description Model Number Serial Number Lot Number Expiration Date BALLOON, PACIFIC PLUS 2 X 40 [id number] 05-28-2020 130CM CATHETER, QUICK CROSS EXTREME [id number] 09-27-2018 135CM CATHETER, SUPPORT .014 [facility]- [id number] 03-13-2020 CROSS WIRE, ASAHI ASTATO XS 20 300CM [id number] 10-14-2018 WIRE, FIRM (VIPER) 335 [id number] 09-15-2019 WIRE, GUIDE APPROACH HYDRO [id number] 03-24-2020 ST WIRE, GUIDE APPROACH HYDRO [id number] 12-03-2020 ST WIRE, GUIDE APPROACH HYDRO [id number] 12-03-2020 ST History: Allergies Allergy Reaction No Known Allergies Labs Hgb (g/dl) WBC (l/cumm) 11.60-17.00 4.00-11.00 10.5 9.8 BUN (mg/dl) Creatinine (mg/dl) BUN:Creatinine (1:x) 7.00-18.00 0.50-1.30 10.00-20.00 13 0.5 26 CPK-MB (ng/ML) 0.50-3.60 Not Drawn Medication Medication Total Dose (Bolus/Oral) Medication Total Dosage/Unit 1% XYLOCAINE 20 mL FENTANYL 50 mcg HEPARIN 7000 units Medications (Bolus/Oral) Medication Time Given Dosage/Unit Administered By Reason 05/15/2018 10:12:02 1% XYLOCAINE 20 mL Saji Tomlin AM 20 mL 1% XYLOCAINE given in lab by Saji Tomlin in Left Groin via Subcutaneous. 05/15/2018 10:19:09 HEPARIN 3000 units Tran Stubbs AM 3000 units HEPARIN given in lab by Tran Stubbs RN via Peripheral IV. 05/15/2018 10:26:45 HEPARIN 2000 units Tran Stubbs AM 2000 units HEPARIN given in lab by Tran Stubbs RN via Peripheral IV. 05/15/2018 11:39:20 HEPARIN 2000 units Tran Stubbs AM 2000 units HEPARIN given in lab by Tran Stubbs, VANESA via Peripheral IV. 05/15/2018 11:53:01 FENTANYL 50 mcg Tran Stubbs AM 50 mcg FENTANYL given in lab by Tran Stubbs, VANESA via Peripheral IV. Ordered by Saji Tomlin. Medication (Drip) Medication Time Given Dosage/Unit Concentration/Unit Diluent (ml) Solution IV Solutions 05/15/2018 9:52:55 AM 0 mL (IV) 500 NaCl .9 IV Solutions given in lab by Tran Stubbs, RN via Peripheral IV. Pump/Drip Flow = 30 ml/hr using N aCl .9. Initial Case Assessment Cardiovascular HR NIBP 60 123/57 Edema Present Skin color Skin None Normal Warm Dry Circulatory - Right Pulses Dorsalis Pedis Femoral 1 2 Scale (0,1,2,3,4,d) Circulatory - Left Pulses Dorsalis Pedis Femoral 1 2 Scale (0,1,2,3,4,d) Circulatory - Lower Extremities Color Lower Right Color Lower Left Normal Normal Neurological State Oriented to time-place- Alert Moves all extremities person Respiration - General Respiration Rate SpO2 (%) (B/min) 11 99 Chronological Log Time Study Chronological Log 9:42:25 Patient arrived via Bed. 9:42:30 Patient Name, D.O.B, / Armband Verified By R.N. 9:42:33 Consent signed by the physician and the patient and verified by the Anchorer staff. 9:52:37 Pre-op and post- op instructions given; patient acknowledges understanding of instructions. 9:52:40 Presedation assessment performed by Anchorer RN. 9:52:42 Patient has been NPO for More than 6Hrs. 9:52:43 Skin Kkxicsmnh-vin-quzymxs wounds on right foot and toes. 9:52:45 Patient Warmer Placed on the Table. 9:52:47 Hipolito Prominences Protected 9:52:51 A # 20 IV was noted in the Wrist (left). Grade = 0 Vitals capture started with the following parameters, Patient=Adult, Interval=5 min, Initial Pr lkdxud=776 mmHg, 9:52:53 Deflation Rate=5 mmHg, Cuff placed on Right Arm 9:52:55 IV Solutions given in lab by Tran Stubbs, RN via Peripheral IV. Pump/Drip Flow = 30 ml/ hr using NaCl .9. 9:52:57 History and physical on the chart or being dictated. Assessment: Initial Case, HR=60 BPM, BQRP=467/57 mmhg, Edema=None, Color=Normal, Skin = Warm, D ry Right Pulses: Mukesh Ped=1, Femoral=2 Left Pulses: Mukesh Ped=1, Femoral=2 9:52:57 Lower Right Extremities: Color=Normal Lower Left Extremities: Color=Normal Neurological: State=Alert, Ox3, HERNANDEZ Respiration: Resp=11 B/min, SpO2=99 % 9:54:00 HR=59 bpm, GRBK=153/57 mmhg, SpO2=99.0 %, Resp=8 B/min, Pain=0, Nate=10, Limon=2 9:58:32 HR=12 bpm, QQUN=057/57 mmhg, SpO2=97.0 %, Resp=11 B/min, Pain=0, Nate=10, Limon=2 10:00:26 Bilateral groins prepped with 2% chlorhexidine, and draped after a 3 minute waiting time. 10:03:31 VB=751 bpm, GIMU=159/64 mmhg, SpO2=99.0 %, Resp=11 B/min, Pain=0, Nate=10, Limon=2 Time Out. Correct patient, correct procedure, correct physician, labs, allergies, and equipment verified with cathode maker 10:07:57 team present. Fire risk assesment completed (see hard stop sheet for coding). Time Out Conc urred by MD and individual staff in procedure. 10:08:06 Case Start 10:08:34 HR=48 bpm, KRCF=183/58 mmhg, SpO2=98.0 %, Resp=13 B/min, Pain=0, Nate=10, Limon=2 10:12:02 20 mL 1% XYLOCAINE given in lab by Saji Tomlin in Left Groin via Subcutaneous. 10:12:24 Access site was Left Femoral Artery using ultrasound A INTRODUCER SET, MICROPUNCTURE STIFF FR 5 was advanced into the Fem Art (left) using the Anisha reece 10:12:37 technique. A SHEATH, FR5 TERUMO (10CM) FR 5 was exchanged in the Fem Art (left). This was necessary in ord er to 10:13:24 accomodate a larger catheter. 10:13:33 HR=41 bpm, JBON=645/60 mmhg, HiC5=505.0 %, Resp=10 B/min, Pain=0, Nate=10, Limon=2 A OMNI FLUSH 65CM CATHETER FR 4 was advanced over a wire. OMNIPAQUE, 300 MG, 150ML 150ML was us ed for 10:14:24 injections. Through a OMNI FLUSH 65CM CATHETER FR 4, The Abdominal Aorta was injected with contrast. Inject ions continued 10:16:42 down the right leg 10:18:32 HR=50 bpm, YJJD=489/59 mmhg, SpO2=97.0 %, Resp=17 B/min, Pain=0, Nate=10, Limon=2 A SHEATH, FR6 PINNACLE DESTINATION 65CM FR 6 was exchanged in the Fem Art (left). This was nece ssary in order 10:18:51 for catheter support. 10:19:09 3000 units HEPARIN given in lab by Tran Stubbs, RN via Peripheral IV. 10:20:25 Catheter was removed 10:23:35 HR=32 bpm, XVAT=558/54 mmhg, SpO2=98.0 %, Resp=17 B/min, Pain=0, Nate=10, Limon=2 10:24:53 The previous wire was exchanged for a WIRE, GUIDE APPROACH HYDRO ST 300CM. 10:26:14 A CATHETER, CXI SUPPORT 2.6FR 0.18 was advanced over a wire. contrast was used for injectio ns. 10:26:45 2000 units HEPARIN given in lab by Tran Stubbs, VANESA via Peripheral IV. 10:28:34 HR=42 bpm, CTSO=752/63 mmhg, SpO2=98.0 %, Resp=16 B/min, Pain=0, Nate=10, Limon=2 After removing the current catheter a CATHETER, FR4 TRAILBLAZER .014 150CM was advanced over a WIRE, GUIDE 10:30:[address] 300CM. 10:33:35 HR=61 bpm, CASR=870/52 mmhg, SpO2=99.0 %, Resp=16 B/min, Pain=0, Nate=10, Limon=2 A BALLOON, NANOCROSS 1.5 X 40MM 150CM 1.5 X 40 was inserted over WIRE, GUIDE APPROACH HYDRO ST 300CM 10:34:13 via the Fem Art (left). 10:35:16 In the Peroneal (right) a BALLOON, NANOCROSS 1.5 X 40MM 150CM 1.5 X 40 was inflated to 14 a tms for 15 seconds. After removing the current catheter a CATHETER, SUPPORT .014 QUICK-CROSS .014 was advanced over a WIRE, 10:39:[address] 300CM. 10:39:19 HR=60 bpm, UUQI=968/61 mmhg, SpO2=98.0 %, Resp=18 B/min, Pain=0, Nate=10, Limon=2 10:41:56 Wire removed 10:42:01 A WIRE, GUIDE APPROACH HYDRO ST 300CM was inserted via Fem Art (left). 10:43:38 HR=44 bpm, RFGB=158/57 mmhg, SpO2=98.0 %, Resp=17 B/min, Pain=0, Nate=10, Limon=2 10:44:52 Catheter was removed w/o difficulty A BALLOON, 1.25 X 15MM SPRINTER LEGEND OTW 15MM was inserted over WIRE, GUIDE APPROACH HYDRO ST 10:45:46 300CM via the Fem Art (left). In the Peroneal (right) a BALLOON, 1.25 X 15MM SPRINTER LEGEND OTW 15MM was inflated to 12 atms for 10 10:46:54 seconds. 10:48:35 HR=9 bpm, GHSF=636/55 mmhg, SpO2=98.0 %, Resp=15 B/min, Pain=0, Nate=10, Limon=2 10:48:49 In the Peroneal (right) a BALLOON, 1.25 X 15MM SPRINTER LEGEND OTW 15MM was inflated to 12 atms for 5 seconds. 10:53:23 Balloon Removed 10:53:38 HR=31 bpm, DTCL=008/58 mmhg, SpO2=98.0 %, Resp=21 B/min, Pain=0, Nate=10, Limon=2 A BALLOON, NANOCROSS 3.0 X 40MM 150CM 3.0 X 40 was inserted over WIRE, GUIDE APPROACH HYDRO ST 300CM 10:54:02 via the Fem Art (left). 10:55:17 In the Peroneal (right) a BALLOON, NANOCROSS 3.0 X 40MM 150CM 3.0 X 40 was inflated to 8 at ms for 20 seconds. 10:55:51 In the Peroneal (right) a BALLOON, NANOCROSS 3.0 X 40MM 150CM 3.0 X 40 was inflated to 8 at ms for 20 seconds. 10:59:22 HR=61 bpm, VNYN=280/54 mmhg, SpO2=98.0 %, Resp=16 B/min, Pain=0, Nate=10, Limon=2 10:59:29 Balloon Removed 10:59:42 A CATHETER, SUPPORT .014 QUICK-CROSS .014 was advanced over a wire. contrast was used for i njections. 11:02:43 Catheter was removed w/o difficulty 11:03:40 HR=51 bpm, MSXU=742/60 mmhg, SpO2=97.0 %, Resp=10 B/min, Pain=0, Nate=10, Limon=2 A BALLOON, PACIFIC PLUS 2 X 40 130CM 2 X 40 was inserted over WIRE, GUIDE APPROACH HYDRO ST 300 CM via 11:05:57 the Fem Art (left). 11:06:49 In the Peroneal (right) a BALLOON, PACIFIC PLUS 2 X 40 130CM 2 X 40 was inflated to 22 atms for 10 seconds. 11:07:43 In the Peroneal (right) a BALLOON, PACIFIC PLUS 2 X 40 130CM 2 X 40 was inflated to 22 atms for 15 seconds. 11:08:36 In the Peroneal (right) a BALLOON, PACIFIC PLUS 2 X 40 130CM 2 X 40 was inflated to 22 atms for 15 seconds. 11:08:39 HR=64 bpm, UMKV=040/65 mmhg, SpO2=98.0 %, Resp=13 B/min, Pain=0, Nate=10, Limon=2 11:10:26 In the Peroneal (right) a BALLOON, PACIFIC PLUS 2 X 40 130CM 2 X 40 was inflated to 22 atms for 15 seconds. 11:12:23 The previous wire was exchanged for a WIRE, CircuLiteATO XS 20 300CM 300CM. 11:13:44 HR=66 bpm, NKMC=889/60 mmhg, SpO2=97.0 %, Resp=12 B/min, Pain=0, Nate=10, Limon=2 11:14:49 In the Fem Art (left) a BALLOON, PACIFIC PLUS 2 X 40 130CM 2 X 40 was inflated to 22 atms f or 10 seconds. 11:16:35 Balloon Removed A CATHETER, SUPPORT .014 QUICK-CROSS .014 was advanced over a wire. OMNIPAQUE, 300 MG, 150ML 15 0ML was 11:16:41 used for injections. 11:18:41 HR=65 bpm, YZIS=390/65 mmhg, SpO2=98.0 %, Resp=17 B/min, Pain=0, Nate=10, Limon=2 11:23:44 HR=77 bpm, UTIA=503/64 mmhg, EmD5=809.0 %, Resp=11 B/min, Pain=0, Nate=10, Limon=2 11:25:34 A WIRE, GUIDE APPROACH HYDRO ST 300CM was inserted via Fem Art (left). A BALLOON, EVERCROSS 3 X 150 135CM 3 X 150 was inserted over WIRE, ASAHI ASTATO XS 20 300CM 300 CM via the 11:26:58 Fem Art (left). 11:27:38 In the Fem Art (left) a BALLOON, EVERCROSS 3 X 150 135CM 3 X 150 was inflated to 10 atms fo r 10 seconds. 11:28:20 In the Fem Art (left) a BALLOON, EVERCROSS 3 X 150 135CM 3 X 150 was inflated to 10 atms fo r 10 seconds. 11:28:39 HR=72 bpm, ANIE=359/68 mmhg, SpO2=98.0 %, Resp=14 B/min, Pain=0, Nate=10, Limon=2 11:29:31 Balloon Removed A CATHETER, QUICK CROSS EXTREME 135CM .035 was advanced over a wire. OMNIPAQUE, 300 MG, 150ML 1 50ML 11:32:16 was used for injections. 11:33:14 Catheter was removed w/o difficulty 11:33:35 Wire removed 11:33:42 HR=81 bpm, GWSL=141/59 mmhg, SpO2=98.0 %, Resp=17 B/min, Pain=0, Nate=10, Limon=2 A BALLOON, NANOCROSS 1.5 X 40MM 150CM 1.5 X 40 was inserted over WIRE, GUIDE APPROACH HYDRO ST 300CM 11:34:27 via the Fem Art (left). 11:37:04 In the Peroneal (right) a BALLOON, NANOCROSS 1.5 X 40MM 150CM 1.5 X 40 was inflated to 10 a tms for 10 seconds. 11:38:45 HR=77 bpm, FGMM=581/67 mmhg, SpO2=98.0 %, Resp=14 B/min, Pain=0, Nate=10, Limon=2 11:39:20 2000 units HEPARIN given in lab by Tran Stubbs, VANESA via Peripheral IV. 11:41:35 Balloon Removed 11:43:50 HR=69 bpm, XAIM=734/55 mmhg, Resp=11 B/min, Pain=0, Nate=10, Limon=2 11:44:15 The previous wire was exchanged for a WIRE, FIRM (VIPER) 335. 11:45:46 A CSI 1.25 micro catheter was advanced over a wire. OMNIPAQUE, 300 MG, 150ML 150ML was used for injections. 11:46:23 CSI in progress 11:48:41 HR=75 bpm, PTJF=718/54 mmhg, Resp=14 B/min, Pain=0, Nate=10, Limon=2 11:50:01 CSI removed A BALLOON, NANOCROSS 3.0 X 150MM 150CM 3.0 X 150 was inserted over WIRE, FIRM (VIPER) 335 via t he Peroneal 11:50:57 (right). 11:53:01 50 mcg FENTANYL given in lab by Tran Stubbs, VANESA via Peripheral IV. Ordered by Savita Tomlin. A BALLOON, NANOCROSS 3.0 X 150MM 150CM 3.0 X 150 over a WIRE, FIRM (VIPER) 335 in the Peroneal (right) was 11:53:39 inflated using a 30 AMAN INDEFLATOR at 8 aman for 15 sec. 11:53:40 HR=85 bpm, KDBB=298/53 mmhg, Resp=10 B/min 11:58:36 Balloon Removed. 11:58:41 Wire removed 11:59:18 HR=74 bpm, WFKM=582/57 mmhg, SpO2=96.0 %, Resp=12 B/min 12:01:07 PERCLOSE, PRO GLIDE CLOSER DEVICE FR 6 placement in the Fem Art (left) 12:03:42 HR=73 bpm, PDMY=228/59 mmhg, SpO2=96.0 %, Resp=13 B/min, Pain=0, Nate=10, Limon=2 12:03:55 Case End (Physician broke scrub) 12:05:25 Catheter(s) removed without difficulty 12:05:45 Sterile dressing applied to site 12:05:47 No case complications noted. 12:05:51 Bedside Report will be given. 12:08:41 HR=71 bpm, WKEO=920/71 mmhg, SpO2=96.0 %, Resp=10 B/min, Pain=0, Nate=10, Limon=2 12:14:15 HR=70 bpm, LLFM=025/57 mmhg, SpO2=95.0 %, Resp=6 B/min, Pain=0, Nate=10, Limon=2 12:15:[address] [place] [address]. Spoke to [facility] 12:18:46 HR=69 bpm, LHVL=260/57 mmhg, SpO2=94.0 %, Resp=23 B/min, Pain=0, Nate=10, Limon=2 12:22:47 Patient moved to stretcher End Study - Contrast Media Used In Study Contrast Total Opened (mL) Total Used (mL) Total Wasted (mL) Omnipaque 300 80 80 0 End Study - Maximum Contrast Load Max Contrast Load (mL) 755.9 End Study - Radiation Exposure Fluoro Time (minutes) 25.8 End Study - Sheaths Sheaths Pulled By Sheath Hold Time (min) Saji Tomlin End Study - Patient Disposition Complications Transferred To Interventional Outcome No Telemetry Bed successful
[2018-05-15] MEDS: Ferrous Sulfate 325 MG Tablet PO SCH ×3 (12:49→17:27)
[2018-05-15] MEDS: Gabapentin 300 MG Capsule PO SCH ×3 (12:49→17:26)
[2018-05-15] MEDS: Magnesium Oxide 400 MG Tablet PO SCH ×4 (12:50→21:33)
--- NOTE | 2018-05-15 12:50 | P.OP ---
Preoperative Diagnosis: Right lower extremity critical limb ischemia with tissue loss Postoperative Diagnosis: Right lower extremity critical limb ischemia with tissue loss Date of procedure: 05/15/18 Procedure: 1. Ultrasound guided access of the left common femoral artery 2. AIF angiogram 3. Right lower extremity third order angiogram 4. Atherectomy of the right peroneal artery 5. Balloon angioplasty of the right peroneal artery 6. Perclose of the left common femoral artery 7. Radiological supervision to position 8. Conscious sedation times 1.5-hour Anesthesia: other (Local with moderate sedation) Surgeon: Saji Tomlin MD Estimated blood loss (mL): 10 Operation and Findings: Findings #1 the infrarenal abdominal aorta the bilateral common iliac artery external iliac artery was noted to be patent with no evidence of significant stenosis. #2 the right common femoral artery profunda femoral arteries patent femoral artery popliteal artery is noted to be patent with no evidence of significant stenosis. #3 there is a single runoff to the right foot via the right peroneal artery which had a mid segment occlusion. I was able to cross this occlusion after multiple trials with different wires and catheters and balloons. The occlusion was treated by performed atherectomy followed by balloon angioplasty. There was no flow-limiting dissection or residual stenosis on the completion angiogram. There was multiphasic right posterior tibial signal at the end of the procedure. 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 The patient will have compromised wound healing and he is at high risk for limb loss. Description of the procedure The patient was taken to the operating room. Lay supine and the OR table. After adequate sedation the patient was prepped and draped in the standard sterile fashion. Timeout was called with all members and you are in agreement. 1% lidocaine was injected in left groin using ultrasound again [place] sheath was placed in the left common femoral artery. Catheter was placed into the infrarenal abdominal aorta and an AIF Frances Stas was performed. A catheter was placed into the right popliteal artery and a right lower extremity third order angiogram was performed. The patient was heparinized. A 6 Israeli destination sheath was placed with the tip in the right superficial femoral artery. I was able to cross the peroneal artery occlusion with a wire but I was not able to advance a catheter past the lesion. I used multiple 014 balloons with different diameter size followed by an 035 balloon on an 018 wire and a mark wire where I was able to crack the Of the lesion. I confirm position the true lumen. An atherectomy of the right peroneal artery was performed followed by balloon angioplasty using a 3 mm balloon. Completion radiograph was performed. At this point all catheter and sheath removed hemostasis achieved by applying a Perclose device to left common femoral artery. Conclusion Patient presents with a right lower extremity critical limb ischemia with tissue loss. He has a single runoff to the right foot via the peroneal artery. I was able to treat this vessel using endovascular technique. 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 He is high risk for limb loss.
[2018-05-15] MEDS: Potassium Phos/Sodium Phos 250 MG Tablet PO SCH ×4 (12:51→21:35)
[2018-05-15] MEDS: Ascorbic Acid 500 MG Tablet PO SCH ×2 (12:52→21:35)
[2018-05-15] MEDS: Amiodarone 200 MG Tablet PO SCH (12:52)
[2018-05-15] MEDS: Sodium Chloride 1 GM Tablet PO SCH ×3 (12:54→17:26)
[2018-05-15] MEDS: Citalopram 20 MG Tablet PO SCH (12:55)
[2018-05-15] MEDS: Gentamicin 0.1% Cream 15 GM Cream TOPICAL SCH ×2 (12:57→21:36)
[2018-05-15] MEDS: Docusate Sodium 100 MG Capsule PO SCH ×2 (12:57→21:35)
[2018-05-15] MEDS: Insulin NovoLOG Aspart Correctional Sugar Inj SQ SCH ×3 (12:57→20:34)
[2018-05-15] MEDS: Collagenase Oint 30 GM Tube TOPICAL SCH (12:58)
[2018-05-15] MEDS: Vancomycin Inj 1,250 MG in Sodium Chlor 0.9% Inj 250 ML IV.SIG SCH (15:52)
--- NOTE | 2018-05-15 16:13 | P.PNPAL ---
Reason for Visit Reason for visit: a. To assist with evaluation and management of symptoms including: Pain, weakness b. To assist medical decision maker(s) with: better understanding of current medical conditions; weighing benefits/burdens of medical treatment options; making medical treatment decisions. Subjective Subjective/Interval History: This is an 87-year-old male transferred from the nursing facility on 04/11 to the emergency department for low hemoglobin. The patient had just been seen by Dr. Oliva and had undergone arteriogram with lower extremity angiogram, right SFA and popliteal atherectomy to the right lower extremity. He was found to be confused, aware only of his name and that he was at the hospital. Patient is seen today for follow-up of symptom management for pain and weakness and to assist family in goals of medical treatment. Patient has been refusing BKA, however patient is confused and not capacitated for decision-making. He has a legal guardian, Kyleigh Landa, who works with his daughter, Ewa who is in [facility]. He underwent ultrasound-guided access of the left common femoral artery, AIF angiogram, right lower extremity third order angiogram, atherectomy of the right peroneal artery and balloon angioplasty of the right peroneal artery today. 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 He continues to have pain in that right foot and leg. Constant, aching, moderate, relieved by opioid medication. He remains generally weak, able to have some bed mobility, pivot transfer with assistance but unable to ambulate any distance. His weakness is chronic, progressive, moderately severe, with no exacerbating or relieving factors. . Family/Friend Interactions: Spoke with patient's guardian, Kyleigh Landa, regarding the upcoming peripheral vascular procedure scheduled today. She is aware that whether he continues conservative care with antibiotics or proceeds to more aggressive care with BKA , wound healing will continue to be an issue due to poor circulation. Plan to meet tomorrow morning for further in-depth evaluation. . Advance Directives Living Will: Completed, but not made available Health Care Surrogate: Completed, but not made available Durable Power of Vp Of Customer Experience Strategy: Completed, but not made available Objective Vital Signs: Vital Signs 05/14/18 16:00 05/14/18 19:55 05/14/18 20:00 Temperature 98.7 F 97.4 F L Pulse Rate 57 L 60 60 Respiratory Rate 20 20 Blood Pressure 140/66 140/66 Pulse Oximetry 97 97 05/14/18 23:50 05/15/18 00:00 05/15/18 04:00 Temperature 97.3 F L 97.1 F L Pulse Rate 59 L 58 L 55 L Respiratory Rate 20 16 Blood Pressure 137/63 121/57 L Pulse Oximetry 96 99 05/15/18 08:00 05/15/18 09:45 Temperature 97.4 F L Pulse Rate 62 Respiratory Rate 18 10 L Blood Pressure 136/62 Pulse Oximetry 98 Intake & Output 05/14/18 05/15/18 05/15/18 18:59 06:59 18:59 Intake Total 1060 / 1060 702.5 / 702.5 100 / 100 Output Total 1200 / 1200 1400 / 1400 Balance -140 / -140 -697.5 / -697.5 100 / 100 Weight 166 lb 10.711 oz Intake: IV 100 / 100 462.5 / 462.5 100 / 100 Zerbaxa Inj 1,500 MG In NS Inj 100 / 100 200 / 200 100 / 100 100 ML @ 100 mls/hr IV.SIG Q8H ACE Rx#:[id number] Vancomycin Inj 1,250 MG In NS 262.5 / 262.5 Inj 250 ML @ 262.5 mls/hr IV. SIG Q18H ACE Rx#:[id number] Oral 960 / 960 240 / 240 Output: Urine 1200 / 1200 1400 / 1400 Other: Date of Last Bowel Movement 05/13/18 05/15/18 05/13/18 # Bowel Movements 1 1 Physical Exam: CONSTITUTIONAL/GENERAL: This is elderly, cachectic male patient, in no apparent distress. TUBES/LINES/DRAINS: PIV SKIN: Scattered ecchymosis on upper and lower extremities, skin is dry with purpling on right second toe, right great toe, multiple abrasions and wounds on feet and ankles bilaterally, large ecchymotic right heel decubitus HEAD: Atraumatic. Normocephalic. EYES: Left pupil 4 mm and oblong from previous traumatic injury, right pupil 2 mm and reactive, extraocular motions intact. No scleral icterus. No injection or drainage. Fundi not examined. CARDIOVASCULAR: Regular rate and rhythm with 2/6 systolic ejection murmurs, no gallops, or rubs. No JVD. Peripheral pulses symmetric. RESPIRATORY/CHEST: Symmetric, unlabored respirations. Clear to auscultation. Breath sounds equal bilaterally. No wheezes, rales, or rhonchi. GASTROINTESTINAL: Abdomen soft, non-tender, nondistended. No hepato-splenomegaly , or palpable masses. No guarding. Bowel sounds present. GENITOURINARY: Without palpable bladder distension. MUSCULOSKELETAL: Extremities without clubbing, cyanosis, or edema. No joint tenderness or effusion noted. NEUROLOGICAL: Awake and alert. Generalized weakness. Follows commands. Cognitively he is pleasantly confused. Moves all extremities but has difficulty with bilateral lower extremities right greater than left secondary to pain. PSYCHIATRIC: No obvious anxiety/depression. no apparent hallucinations or other psychotic thought process. . Diagnostic Tests Laboratory: Laboratory Results - last 72 hr 05/12/18 05/12/18 05/13/18 17:56 21:25 05:08 WBC 10.0 RBC 3.05 L Hgb 9.3 L Hct 28.1 L MCV 92.2 MCH 30.5 MCHC 33.1 RDW 21.5 H Plt Count 417 MPV 7.0 Neut % (Auto) 61.8 Lymph % (Auto) 13.8 [place] % (Auto) 9.9 H Eos % (Auto) 12.0 H Baso % (Auto) 2.5 H Neut # (Auto) 6.2 Lymph # (Auto) 1.4 [place] # (Auto) 1.0 H Eos # (Auto) 1.2 H Baso # (Auto) 0.3 H WBC Differential . Differential Comment Auto diff final Sodium Potassium Chloride Carbon Dioxide Anion Gap BUN Creatinine Estimated GFR POC Glucose 164 H 249 H Random Glucose Calcium 05/13/18 05/13/18 05/13/18 05:08 08:45 13:04 WBC RBC Hgb Hct MCV MCH MCHC RDW Plt Count MPV Neut % (Auto) Lymph % (Auto) [place] % (Auto) Eos % (Auto) Baso % (Auto) Neut # (Auto) Lymph # (Auto) [place] # (Auto) Eos # (Auto) Baso # (Auto) WBC Differential Differential Comment Sodium 132 L Potassium 4.7 Chloride 97 L Carbon Dioxide 27.5 Anion Gap 8 BUN 14 Creatinine 0.65 Estimated GFR Greater than 89 POC Glucose 168 H 176 H Random Glucose 142 H Calcium 8.1 L 05/13/18 05/13/18 05/14/18 17:47 20:00 07:31 WBC RBC Hgb Hct MCV MCH MCHC RDW Plt Count MPV Neut % (Auto) Lymph % (Auto) [place] % (Auto) Eos % (Auto) Baso % (Auto) Neut # (Auto) Lymph # (Auto) [place] # (Auto) Eos # (Auto) Baso # (Auto) WBC Differential Differential Comment Sodium Potassium Chloride Carbon Dioxide Anion Gap BUN Creatinine Estimated GFR POC Glucose 150 H 138 H 129 H Random Glucose Calcium 05/14/18 05/14/18 05/14/18 13:09 17:44 20:26 WBC RBC Hgb Hct MCV MCH MCHC RDW Plt Count MPV Neut % (Auto) Lymph % (Auto) [place] % (Auto) Eos % (Auto) Baso % (Auto) Neut # (Auto) Lymph # (Auto) [place] # (Auto) Eos # (Auto) Baso # (Auto) WBC Differential Differential Comment Sodium Potassium Chloride Carbon Dioxide Anion Gap BUN Creatinine Estimated GFR POC Glucose 140 H 138 H 145 H Random Glucose Calcium 05/15/18 05/15/18 05/15/18 04:57 04:57 09:21 WBC 9.8 RBC 3.49 L Hgb 10.5 L Hct 31.2 L MCV 89.5 MCH 30.0 MCHC 33.5 RDW 21.0 H Plt Count 387 MPV 7.3 Neut % (Auto) 68.2 Lymph % (Auto) 13.0 [place] % (Auto) 8.4 H Eos % (Auto) 7.7 H Baso % (Auto) 2.7 H Neut # (Auto) 6.7 Lymph # (Auto) 1.3 [place] # (Auto) 0.8 Eos # (Auto) 0.7 H Baso # (Auto) 0.3 H WBC Differential . Differential Comment Auto diff final Sodium 130 L Potassium 4.7 Chloride 96 L Carbon Dioxide 26.2 Anion Gap 8 BUN 13 Creatinine 0.58 L Estimated GFR Greater than 89 POC Glucose 176 H Random Glucose 113 H Calcium 8.5 05/15/18 12:42 WBC RBC Hgb Hct MCV MCH MCHC RDW Plt Count MPV Neut % (Auto) Lymph % (Auto) [place] % (Auto) Eos % (Auto) Baso % (Auto) Neut # (Auto) Lymph # (Auto) [place] # (Auto) Eos # (Auto) Baso # (Auto) WBC Differential Differential Comment Sodium Potassium Chloride Carbon Dioxide Anion Gap BUN Creatinine Estimated GFR POC Glucose 121 H Random Glucose Calcium Result Diagrams: 05/15/18 04:57 05/15/18 04:57 Microbiology: Microbiology 04/27/18 12:43 Wound - Thigh Acid Fast Bacilli Smear - Final No acid fast bacilli seen 04/27/18 12:43 Wound - Thigh Mycobacterial Culture - Preliminary No growth in 2 weeks 04/27/18 12:43 Wound - Thigh Fungal Smear - Final No fungal elements seen 04/27/18 12:43 Wound - Thigh Fungal Culture - Preliminary No growth in 2 weeks 04/29/18 09:05 Blood - Peripheral Aerobic Blood Culture - Final No growth in 5 days 04/29/18 09:05 Blood - Peripheral Anaerobic Blood Culture - Final No growth in 5 days 04/29/18 09:10 Blood - Peripheral Aerobic Blood Culture - Final No growth in 5 days 04/29/18 09:10 Blood - Peripheral Anaerobic Blood Culture - Final No growth in 5 days 05/01/18 19:00 Stool Occult Blood - Final Hemoccult negative 04/27/18 12:43 Wound - Thigh Gram Stain - Final 04/27/18 12:43 Wound - Thigh Wound Culture - Final No growth in 72 hours (aerobically and anaerobically ) 04/16/18 15:55 Wound - Foot Gram Stain - Final 04/16/18 15:55 Wound - Foot Wound Culture - Final Pseudomonas aeruginosa Multidrug Resistant Proteus mirabilis Enterococcus faecalis 04/11/18 13:45 Blood - Peripheral Aerobic Blood Culture - Final No growth in 5 days 04/11/18 13:45 Blood - Peripheral Anaerobic Blood Culture - Final No growth in 5 days 04/11/18 13:50 Blood - Peripheral Aerobic Blood Culture - Final No growth in 5 days 04/11/18 13:50 Blood - Peripheral Anaerobic Blood Culture - Final No growth in 5 days 04/11/18 12:00 Wound - Thigh Gram Stain - Final 04/11/18 12:00 Wound - Thigh Wound Culture - Final S. aureus MRSA Imaging: ITS Impressions Head CT 04/11/18 11:59 CONCLUSION: 1. Stable appearance of the brain. . Ankle MRI 04/15/18 00:00 CONCLUSION: 1. Osteomyelitis of the posterior calcaneus with a near complete tear of the distal Achilles tendon. There is overlying cellulitis and subcutaneous edema with a small abscess adjacent to the distal Achilles tendon as measured above. There is edematous change on the plantar aspect of the foot with a tenosynovitis as above. No acute fracture identified. Mild bone edema tibia, nonspecific. Ankle X-Ray 04/15/18 00:00 CONCLUSION: Osteomyelitis of the posterior calcaneus with overlying soft tissue swelling and ulceration. No acute fracture. Femur MRI 04/25/18 00:00 CONCLUSION: 1. 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 The collection appears to communicate with the prosthetic component in the proximal femur. 2. Edematous changes are noted along the vastus lateralis and iliotibial band. Hip X-Ray 04/27/18 00:00 CONCLUSION: Hardware removal on the right. Abdomen/Pelvis CT 04/30/18 10:28 Review of bone windows reveals moderate degenerative changes in the lumbar spine and both SI joints. CONCLUSION: 1. Large bolus of stool in the rectum with stool throughout the colon suggesting constipation with possible impaction 2. Prominent gallbladder without stones 3. 2 nonobstructing stones in the left kidney. Procedures: 04/14: Colonoscopy 04/19: Endoscopy 04/24: Right lower extremity angiogram, right popliteal [employer] SITTER. 04/27: Removal of hardware right femur, Synthes TFN, irrigation and debridement of skin, subcu tissue, muscle and bone with insertion of Stimulan and antibiotic beads spacer. Assessment and Plan Pertinent Non-Medical Issues: Psychosocial: He was born in [place] and retired from [employer]. He has been twice and is now . He has 2 children that live in [facility]. His daughter Ewa is his healthcare decision maker. Spiritual: [employer] available. Legal: Has an elder care service station helper, Rubin Sequeira Ethical issues impacting care: Patient is confused. . Important Contacts: Daughter: Ewa Tovar ([facility]) [phone] health sciences program coordinator: Kyleigh Landa (HIPPA release on chart for her to receive info) Vp Of Customer Experience Strategy: Rubin Sequeira Prognosis: His prognosis is guarded. He is of advanced age with multiple comorbidities. He has several chronic nonhealing wounds, severe peripheral artery disease and a large calcaneal ulcer on his right heel. He has a draining wound on his right hip and is at elevated risk for continued infections, complications, possible loss of limb, sepsis and even . He is currently refusing amputation of the right foot but has poor insight, is confused and does not appear to have capacity to make that decision. Contact being established with patient's medicare coordinator and daughter to clarify goals however, decreased vascularity to his periphery raises his risk of continued infection and failure regardless of the decision to amputate or not. . Code Status: No Code DNR Plan: PLAN: Legal decision maker: Patient is not capacitated for decision-making. His daughter Ewa has been designated as his healthcare proxy and she lives in [facility]. To that end she has hired a local medicare coordinator, Kyleigh Landa, to assist her in decision-making. Goals: To be determined. CODE STATUS: DO NOT RESUSCITATE SYMPTOMS: * Pain: He complains of pain in the right foot and heel, worse with movement, intermittent, stabbing with no relieving factors except lying still and opioids. He is receiving hydrocodone/acetaminophen/10/325 every 4 hours as needed. He is taking an average of 4-6 tablets daily. He remains painful after atherectomy and angioplasty today. * Weakness: He is generally weak and in prior admissions required moderate to maximum assistance to perform a pivot transfer. Given the wounds on his heel, progressive ischemia of the second toe and prolonged hospitalization, he may benefit from rehab if able to cooperate with therapy. Palliative care will continue to follow the patient during hospital course as condition evolves, to assist patient/decision-maker with understanding of their medical conditions, weighing benefits/burdens of treatment options, for clarification of goals of treatment. Additionally will assist with any symptoms of palliative concern. . Attestation Attestation: To help prompt me to consider important information that might be impacting today's encounter and assessment, information from prior notes written by myself or my colleagues may have been "brought forward" into today's note. My signature on this note, however, is an attestation that I personally performed the exam, history, and/or decision-making noted today, and, unless otherwise indicated, the interactions with patient, family, and staff as well as the review of records all occurred today. I also attest that the listed assessment and stated plan reflect my best clinical judgment today based on the combination of historical information, prior notes, and today's exam/ interactions. When time spent is documented, it refers only to time spent today by the signer, or if indicated, combined time spent today by collaborating physician/nurse practitioner. .
[2018-05-16] MEDS: Levothyroxine 125 MCG Tablet PO SCH (05:41)
[2018-05-16] MEDS: TAZOBACTAM IV.SIG SCH ×3 (05:43→23:34)
[2018-05-16] MEDS: SODIUM CHLOR 0.9% IV.SIG SCH ×3 (05:43→23:34)
[2018-05-16] MEDS: CEFTOLOZANE IV.SIG SCH ×3 (05:43→23:34)
[2018-05-16 07:20] LABS: Baso # (Auto) 0.2 th/mm3 (0.0-0.2); Baso % (Auto) 1.9 % (0.0-2.0); Eos # (Auto) 0.8 th/mm3 (0.0-0.4); Eos % (Auto) 6.5 % (0.0-4.0); Hematocrit 27.5 % (39.0-51.0); Hemoglobin 9.2 gm/dL (13.0-17.0); Lymph # (Auto) 0.7 th/mm3 (1.0-4.8); Lymph % (Auto) 5.3 % (9.0-44.0); Mean Corpuscular HGB Conc 33.3 % (32.0-36.0); Mean Corpuscular Hemoglobin 29.8 pg (27.0-34.0); Mean Corpuscular Volume 89.4 fL (80.0-100.0); Mean Platelet Volume 7.2 fL (7.0-11.0); Mono # (Auto) 0.8 th/mm3 (0.0-0.9); Mono % (Auto) 6.3 % (0.0-8.0); Neut # (Auto) 10.3 th/mm3 (1.8-7.7); Platelet Count 382 th/mm3 (150-450); Red Blood Count 3.07 mil/mm3 (4.50-5.90); Red Cell Distribution Width 21.2 % (11.6-17.2); White Blood Count 12.8 th/mm3 (4.0-11.0)
[2018-05-16 07:50] LABS: Anion Gap 6 meq/L (5-15); Blood Urea Nitrogen 16 mg/dL (7-18); Calcium 7.8 mg/dL (8.5-10.1); Chloride 100 meq/L (98-107); Glomerular Filtration Rate Greater Than 89 mL/min (>89); Glucose,Random 105 mg/dL (74-106); Potassium 4.5 meq/L (3.5-5.1); Sodium 132 meq/L (136-145)
--- NOTE | 2018-05-16 08:17 | P.PNID ---
Subjective Remarks: Patient is an 87-year-old male, admitted to the hospital for evaluation of low hemoglobin. There was apparently episodes of black tarry stools. He had a GI workup on this admission, and he seemed to be stable from the GI standpoint. Patient apparently has had a wound on his right heel Achilles area. He had vascular workup, and underwent aortogram around April 08, and had atherectomy of the right SFA and popliteal area. Patient could not really tell me how long he has had the open wound. He has pain when he walks. There is been no fever and chills. On this admission podiatry was consulted. 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 There is a foul odor coming out from that right foot, and patient really could not notice any difference. Since admission he has not been febrile. He has significant pain whenever his RLE gets moved. There was a culture from a right thigh wound that has MRSA. I do not see any culture from the right foot. His initial WBC was around 14,000 and that is down to normal. Blood cultures are negative. Infectious disease consultation has been requested to evaluate the patient. Notes reviewed Temps ok Still with pain Had vascular procedure to RLE 05/15 Had surgery R hip 04/27 - removal of hardware Intraop C/S negative Underwent revascularization 04/24 C/S from ankle with MDR PSAE, Proteus and Enterococcus C/S R thigh MRSA (wound) Antibiotics: Vancomycin Zerbaxa Lines: PIV Past Medical History: Weakness Diabetes HLD (hyperlipidemia) MDRO (multiple drug resistant organisms) resistance Onset Date: ~04/11/18 MRSA (methicillin resistant Staphylococcus aureus) PAD (peripheral artery disease) Hip surgery Allergies/Adverse Reactions: Allergies No Known Allergies Allergy (Verified 04/08/18 12:35) Objective Vital Signs 05/15/18 09:45 05/15/18 12:00 05/15/18 16:00 Temperature 97.8 F 97.4 F L Pulse Rate 70 57 L Respiratory Rate 10 L 18 16 Blood Pressure 107/57 L 110/53 L Pulse Oximetry 95 98 05/15/18 20:00 05/16/18 00:00 05/16/18 04:00 Temperature 98.9 F 98.1 F 97.9 F Pulse Rate 65 61 61 Respiratory Rate 15 18 17 Blood Pressure 93/48 L 111/57 L 119/60 Pulse Oximetry 96 93 L 96 Intake & Output 05/15/18 05/16/18 05/16/18 18:59 06:59 18:59 Intake Total 362.5 / 362.5 340 / 340 100 / 100 Output Total 600 / 600 850 / 850 Balance -237.5 / -237.5 -510 / -510 100 / 100 Weight 75.8 kg Intake: IV 362.5 / 362.5 100 / 100 100 / 100 Zerbaxa Inj 1,500 MG In NS Inj 100 / 100 100 / 100 100 / 100 100 ML @ 100 mls/hr IV.SIG Q8H ACE Rx#:[id number] Vancomycin Inj 1,250 MG In NS 262.5 / 262.5 Inj 250 ML @ 262.5 mls/hr IV. SIG Q18H ACE Rx#:[id number] Oral 0 / 0 240 / 240 Output: Urine 600 / 600 Urine Amount (Catheter) 850 / 850 Condom 850 / 850 Other: Date of Last Bowel Movement 05/13/18 # Bowel Movements 1 # Incontinent Bowel Movements 2 Lab - Hematology Results 05/15/18 05/16/18 04:57 06:31 WBC 9.8 12.8 H RBC 3.49 L 3.07 L Hgb 10.5 L 9.2 L Hct 31.2 L 27.5 L MCV 89.5 89.4 MCH 30.0 29.8 MCHC 33.5 33.3 RDW 21.0 H 21.2 H Plt Count 387 382 MPV 7.3 7.2 Neut % (Auto) 68.2 80.0 H Lymph % (Auto) 13.0 5.3 L [place] % (Auto) 8.4 H 6.3 Eos % (Auto) 7.7 H 6.5 H Baso % (Auto) 2.7 H 1.9 Neut # (Auto) 6.7 10.3 H Lymph # (Auto) 1.3 0.7 L [place] # (Auto) 0.8 0.8 Eos # (Auto) 0.7 H 0.8 H Baso # (Auto) 0.3 H 0.2 WBC Differential . . Differential Comment Auto diff final Auto diff final Lab - Chemistry Results 05/14/18 05/14/18 05/14/18 13:09 17:44 20:26 Sodium Potassium Chloride Carbon Dioxide Anion Gap BUN Creatinine Estimated GFR POC Glucose 140 H 138 H 145 H Random Glucose Calcium 05/15/18 05/15/18 05/15/18 04:57 09:21 12:42 Sodium 130 L Potassium 4.7 Chloride 96 L Carbon Dioxide 26.2 Anion Gap 8 BUN 13 Creatinine 0.58 L Estimated GFR Greater than 89 POC Glucose 176 H 121 H Random Glucose 113 H Calcium 8.5 05/15/18 05/15/18 05/16/18 17:32 19:50 06:31 Sodium 132 L Potassium 4.5 Chloride 100 Carbon Dioxide 26.0 Anion Gap 6 BUN 16 Creatinine 0.66 Estimated GFR Greater than 89 POC Glucose 107 122 H Random Glucose 105 Calcium 7.8 L Imaging: ITS Impressions Head CT 04/11/18 11:59 CONCLUSION: 1. Stable appearance of the brain. . Ankle MRI 04/15/18 00:00 CONCLUSION: 1. Osteomyelitis of the posterior calcaneus with a near complete tear of the distal Achilles tendon. There is overlying cellulitis and subcutaneous edema with a small abscess adjacent to the distal Achilles tendon as measured above. There is edematous change on the plantar aspect of the foot with a tenosynovitis as above. No acute fracture identified. Mild bone edema tibia, nonspecific. Ankle X-Ray 04/15/18 00:00 CONCLUSION: Osteomyelitis of the posterior calcaneus with overlying soft tissue swelling and ulceration. No acute fracture. Femur MRI 04/25/18 00:00 CONCLUSION: 1. 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 The collection appears to communicate with the prosthetic component in the proximal femur. 2. Edematous changes are noted along the vastus lateralis and iliotibial band. Hip X-Ray 04/27/18 00:00 CONCLUSION: Hardware removal on the right. Abdomen/Pelvis CT 04/30/18 10:28 Review of bone windows reveals moderate degenerative changes in the lumbar spine and both SI joints. CONCLUSION: 1. Large bolus of stool in the rectum with stool throughout the colon suggesting constipation with possible impaction 2. Prominent gallbladder without stones 3. 2 nonobstructing stones in the left kidney. Physical Exam: GENERAL: awake and alert, not in respiratory distress. SKIN: Cool and dry. No generalized rash. EYES: [place] conjunctiva. No petechia or hemorrhage. No scleral icterus. No injection or drainage. EARS, NOSE AND THROAT: Mucous membranes pink and moist. No oral lesions noted. NECK: Trachea midline. Supple and not tender, no meningeal signs CARDIOVASCULAR: Regular rate and rhythm. No murmurs, rubs or gallops heard RESPIRATORY: Clear to auscultation. Breath sounds equal bilaterally. No rales , wheezing or rhonchi ABDOMEN: Soft, non-tender, nondistended. Bowel sounds present and normoactive. . EXTREMITIES: No clubbing, cyanosis, or edema. 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 Wounds on dorsum with small amount of drainage. Black eschar on his R heel and posterior ankle, no odor. Dressing R hip with serosanguineous drainage NEURO: Awake and alert PSYCH: Cooperative LINE: No evidence of infection Assessment and Plan - Plan Impression Non-healing wound R heel/achilles area with abscess and osteo posterior calcaneus PVD S/P revascularization RLE 04/24 Infection R femur, has sinus tract on MRI, S/P RAZA, C/S MRSA GIB Leukocytosis, resolved Anemia Recommendation Continue IV Vanco - needs until Jun 07, 6 weeks after hardware removal for the R hip Continue Zerbaxa - for the heel ulcer and osteo SNF not taking patient at this time due to cost of Zerbaxa Monitor progress Patient still not interested in amputation OK to place PICC
[2018-05-16] MEDS ORDERED: Pharmacy Ordered Lab Info OTHER ONE (08:45)
[2018-05-16] MEDS: Amiodarone 200 MG Tablet PO SCH (08:46)
[2018-05-16] MEDS: Potassium Phos/Sodium Phos 250 MG Tablet PO SCH ×4 (08:46→23:22)
[2018-05-16] MEDS: Ascorbic Acid 500 MG Tablet PO SCH ×2 (08:46→23:36)
[2018-05-16] MEDS: Polyethylene Glycol 3350 17 GM Packet PO SCH (08:46)
[2018-05-16] MEDS: Ferrous Sulfate 325 MG Tablet PO SCH ×3 (08:46→17:48)
[2018-05-16] MEDS: Gabapentin 300 MG Capsule PO SCH ×3 (08:46→17:49)
[2018-05-16] MEDS: Sodium Chloride 1 GM Tablet PO SCH ×3 (08:46→17:48)
[2018-05-16] MEDS: Citalopram 20 MG Tablet PO SCH (08:47)
[2018-05-16] MEDS: Docusate Sodium 100 MG Capsule PO SCH ×2 (08:47→23:22)
[2018-05-16] MEDS: Gentamicin 0.1% Cream 15 GM Cream TOPICAL SCH ×2 (08:48→23:25)
[2018-05-16] MEDS: Magnesium Oxide 400 MG Tablet PO SCH ×4 (08:48→23:24)
[2018-05-16] MEDS: Collagenase Oint 30 GM Tube TOPICAL SCH (08:49)
[2018-05-16] MEDS: Vancomycin Inj 1,250 MG in Sodium Chlor 0.9% Inj 250 ML IV.SIG SCH ×2 (10:10→16:08)
[2018-05-16] MEDS: Insulin NovoLOG Aspart Correctional Sugar Inj SQ SCH ×4 (10:48→23:24)
--- NOTE | 2018-05-16 10:52 | P.PNVS ---
Subjective Post Op Day #: 1 Subjective/Hospital Course: Reports lower extremity pain is unchanged since surgery Objective Vital Signs / I&O: Vital Signs 05/15/18 12:00 05/15/18 16:00 05/15/18 20:00 Temperature 97.8 F 97.4 F L 98.9 F Pulse Rate 70 57 L 65 Respiratory Rate 18 16 15 Blood Pressure 107/57 L 110/53 L 93/48 L Pulse Oximetry 95 98 96 05/16/18 00:00 05/16/18 04:00 05/16/18 08:00 Temperature 98.1 F 97.9 F 98.1 F Pulse Rate 61 61 65 Respiratory Rate 18 17 16 Blood Pressure 111/57 L 119/60 110/56 L Pulse Oximetry 93 L 96 94 L Intake & Output 05/15/18 05/16/18 05/16/18 18:59 06:59 18:59 Intake Total 362.5 / 362.5 340 / 340 100 / 100 Output Total 600 / 600 850 / 850 Balance -237.5 / -237.5 -510 / -510 100 / 100 Weight 75.8 kg Intake: IV 362.5 / 362.5 100 / 100 100 / 100 Zerbaxa Inj 1,500 MG In NS Inj 100 / 100 100 / 100 100 / 100 100 ML @ 100 mls/hr IV.SIG Q8H ACE Rx#:[id number] Vancomycin Inj 1,250 MG In NS 262.5 / 262.5 Inj 250 ML @ 262.5 mls/hr IV. SIG Q18H ACE Rx#:[id number] Oral 0 / 0 240 / 240 Output: Urine 600 / 600 Urine Amount (Catheter) 850 / 850 Condom 850 / 850 Other: Date of Last Bowel Movement 05/13/18 # Bowel Movements 1 # Incontinent Bowel Movements 2 Exam: Multiphasic right posterior tibial signal Left groin clean dry intact no hematoma Dry gangrene of the right second toe, right heel Laboratory Results - last 24 hr 05/15/18 05/15/18 05/15/18 12:42 17:32 19:50 WBC RBC Hgb Hct MCV MCH MCHC RDW Plt Count MPV Neut % (Auto) Lymph % (Auto) [place] % (Auto) Eos % (Auto) Baso % (Auto) Neut # (Auto) Lymph # (Auto) [place] # (Auto) Eos # (Auto) Baso # (Auto) WBC Differential Differential Comment Sodium Potassium Chloride Carbon Dioxide Anion Gap BUN Creatinine Estimated GFR POC Glucose 121 H 107 122 H Random Glucose Calcium Vancomycin Trough 05/16/18 05/16/18 05/16/18 06:31 06:31 08:19 WBC 12.8 H RBC 3.07 L Hgb 9.2 L Hct 27.5 L MCV 89.4 MCH 29.8 MCHC 33.3 RDW 21.2 H Plt Count 382 MPV 7.2 Neut % (Auto) 80.0 H Lymph % (Auto) 5.3 L [place] % (Auto) 6.3 Eos % (Auto) 6.5 H Baso % (Auto) 1.9 Neut # (Auto) 10.3 H Lymph # (Auto) 0.7 L [place] # (Auto) 0.8 Eos # (Auto) 0.8 H Baso # (Auto) 0.2 WBC Differential . Differential Comment Auto diff final Sodium 132 L Potassium 4.5 Chloride 100 Carbon Dioxide 26.0 Anion Gap 6 BUN 16 Creatinine 0.66 Estimated GFR Greater than 89 POC Glucose 129 H Random Glucose 105 Calcium 7.8 L Vancomycin Trough 05/16/18 09:00 WBC RBC Hgb Hct MCV MCH MCHC RDW Plt Count MPV Neut % (Auto) Lymph % (Auto) [place] % (Auto) Eos % (Auto) Baso % (Auto) Neut # (Auto) Lymph # (Auto) [place] # (Auto) Eos # (Auto) Baso # (Auto) WBC Differential Differential Comment Sodium Potassium Chloride Carbon Dioxide Anion Gap BUN Creatinine Estimated GFR POC Glucose Random Glucose Calcium Vancomycin Trough 24.0 H Assessment and Plan - Plan RLE CLI with tissue loss Status post right lower extreme angiogram, atherectomy and balloon angioplasty of the right peroneal artery. The #1 Palliative care evaluation is appreciated Family discussion today I will continue to follow Saji Tomlin MD [facility] [phone]
--- NOTE | 2018-05-16 10:57 | P.PNFP ---
Subjective Interval history: Patient seen and examined today. Reports continued pain in his right leg. No significant pain in his foot. Denies nausea, vomiting, fever , chills, don pain, chest pain, shortness of breath, lightheadedness, dizziness. No acute events overnight. Continues to refuse BKA at this time, states "you guys can do anything, you can fix my arteries, anything is possible. " Discussed poor prognosis of right leg. Patient wishes to speak with vascular surgery later today, however is still refusing BKA. <Saji Richard - 05/16/18 11:11> Results - Labs Result diagrams: 05/18/18 09:30 05/19/18 06:05 <Pedro Shay - 05/19/18 13:45> Abnormal lab results 05/18/18 05/18/18 05/19/18 Range/Units 17:36 19:18 06:05 Creatinine 0.55 L (0.60-1.30) mg/dL POC Glucose 135 H 149 H (68-110) mg/dl 05/19/18 05/19/18 Range/Units 07:44 12:11 Creatinine (0.60-1.30) mg/dL POC Glucose 141 H 156 H (68-110) mg/dl BMP 05/19/18 06:05 Creatinine 0.55 L <Pedro Shay - 05/19/18 13:45> Abnormal lab results 05/15/18 05/15/18 05/16/18 Range/Units 12:42 19:50 06:31 WBC 12.8 H (4.0-11.0) th/mm3 RBC 3.07 L (4.50-5.90) mil/mm3 Hgb 9.2 L (13.0-17.0) gm/dL Hct 27.5 L (39.0-51.0) % RDW 21.2 H (11.6-17.2) % Neut % (Auto) 80.0 H (16.0-70.0) % Lymph % (Auto) 5.3 L (9.0-44.0) % Eos % (Auto) 6.5 H (0.0-4.0) % Neut # (Auto) 10.3 H (1.8-7.7) th/mm3 Lymph # (Auto) 0.7 L (1.0-4.8) th/mm3 Eos # (Auto) 0.8 H (0.0-0.4) th/mm3 Sodium (136-145) meq/L POC Glucose 121 H 122 H (68-110) mg/dl Calcium (8.5-10.1) mg/dL Vancomycin Trough (5.0-10.0) mcg/mL 05/16/18 05/16/18 05/16/18 Range/Units 06:31 08:19 09:00 WBC (4.0-11.0) th/mm3 RBC (4.50-5.90) mil/mm3 Hgb (13.0-17.0) gm/dL Hct (39.0-51.0) % RDW (11.6-17.2) % Neut % (Auto) (16.0-70.0) % Lymph % (Auto) (9.0-44.0) % Eos % (Auto) (0.0-4.0) % Neut # (Auto) (1.8-7.7) th/mm3 Lymph # (Auto) (1.0-4.8) th/mm3 Eos # (Auto) (0.0-0.4) th/mm3 Sodium 132 L (136-145) meq/L POC Glucose 129 H (68-110) mg/dl Calcium 7.8 L (8.5-10.1) mg/dL Vancomycin Trough 24.0 H (5.0-10.0) mcg/mL Short CBC 05/16/18 Range/Units 06:31 WBC 12.8 H (4.0-11.0) th/mm3 Hgb 9.2 L (13.0-17.0) gm/dL Hct 27.5 L (39.0-51.0) % Plt Count 382 (150-450) th/mm3 BMP 05/16/18 06:31 Sodium 132 L Potassium 4.5 Chloride 100 Carbon Dioxide 26.0 BUN 16 Creatinine 0.66 Calcium 7.8 L <Saji Richard A - 05/16/18 10:57> Physical Exam Vital signs: Vital Signs 05/18/18 16:00 05/18/18 20:00 05/19/18 00:00 Temperature 97.8 F 97.9 F 98.4 F Pulse Rate 60 60 64 Respiratory Rate 20 17 18 Blood Pressure 127/61 127/71 101/52 L Pulse Oximetry 97 95 96 05/19/18 04:00 05/19/18 08:00 05/19/18 09:47 Temperature 97.7 F Pulse Rate 60 59 L Respiratory Rate 17 10 L Blood Pressure 122/75 Pulse Oximetry 97 05/19/18 13:27 Temperature Pulse Rate Respiratory Rate 20 Blood Pressure Pulse Oximetry Intake & Output 05/18/18 05/19/18 05/19/18 18:59 06:59 18:59 Intake Total 842.5 / 842.5 440 / 440 Output Total 1300 / 1300 Balance 842.5 / 842.5 -860 / -860 Intake: IV 362.5 / 362.5 200 / 200 Zerbaxa Inj 1,500 MG In NS Inj 100 / 100 200 / 200 100 ML @ 100 mls/hr IV.SIG Q8H ACE Rx#:[id number] Vancomycin Inj 1,250 MG In NS 262.5 / 262.5 Inj 250 ML @ 250 mls/hr IV.SIG Q24H ACE Rx#:[id number] Oral 480 / 480 240 / 240 Output: Urine 1300 / 1300 Other: # Voids 1 Date of Last Bowel Movement 05/19/18 05/19/18 # Bowel Movements 1 <Pedro Shay - 05/19/18 13:45> Vital Signs 05/15/18 12:00 05/15/18 16:00 05/15/18 20:00 Temperature 97.8 F 97.4 F L 98.9 F Pulse Rate 70 57 L 65 Respiratory Rate 18 16 15 Blood Pressure 107/57 L 110/53 L 93/48 L Pulse Oximetry 95 98 96 05/16/18 00:00 05/16/18 04:00 05/16/18 08:00 Temperature 98.1 F 97.9 F 98.1 F Pulse Rate 61 61 65 Respiratory Rate 18 17 16 Blood Pressure 111/57 L 119/60 110/56 L Pulse Oximetry 93 L 96 94 L Intake & Output 05/15/18 05/16/18 05/16/18 18:59 06:59 18:59 Intake Total 362.5 / 362.5 340 / 340 100 / 100 Output Total 600 / 600 850 / 850 Balance -237.5 / -237.5 -510 / -510 100 / 100 Weight 75.8 kg Intake: IV 362.5 / 362.5 100 / 100 100 / 100 Zerbaxa Inj 1,500 MG In NS Inj 100 / 100 100 / 100 100 / 100 100 ML @ 100 mls/hr IV.SIG Q8H ACE Rx#:[id number] Vancomycin Inj 1,250 MG In NS 262.5 / 262.5 Inj 250 ML @ 262.5 mls/hr IV. SIG Q18H ACE Rx#:[id number] Oral 0 / 0 240 / 240 Output: Urine 600 / 600 Urine Amount (Catheter) 850 / 850 Condom 850 / 850 Other: Date of Last Bowel Movement 05/13/18 # Bowel Movements 1 # Incontinent Bowel Movements 2 <Saji Richard - 05/16/18 10:57> Narrative: GENERAL: Pleasant elderly male thin, appears malnourished. Alert to person and place but not time. SKIN: Cool and dry. No generalized rash. HEAD: Atraumatic. Normocephalic. No temporal wasting, or tenderness. EYES: Anisocoria, larger left pupil, EOMI CARDIOVASCULAR: Regular rate and rhythm. RESPIRATORY: Clear to auscultation. Breath sounds equal bilaterally. No rales , wheezing or rhonchi ABDOMEN: Soft, non-tender, nondistended. No guarding. No rebound. No organomegaly. EXTREMITIES: No edema. Atrophic muscular changes in both legs bilaterally. Patient able to move toes bilaterally and no decreased sensation. Heels wrapped , C/D/I. Increasingly dark purple discoloration of left second toe up to the PIP joint, and distal left first toe, Dusky appearance of 3rd toe. <Saji Richard - 05/16/18 11:11> - Urinary Catheter Management Condom Cath placed during this visit: no <Pedro Shay - 05/19/18 13:45> no <Saji Richard - 05/16/18 11:11> Reason for continuing: Not indwelling catheter <Saji Richard - 05/16/18 10 :57> Indwelling Urethral Catheter Cath placed during this visit: no <Pedro Shay - 05/19/18 13:45> yes, but has since been removed by the nurse <Saji Richard - 05/16/18 11:11> Reason for continuing: Not indwelling catheter <Saji Richard - 05/16/18 10 :57> Insertion date: 04/11/18 <Saji Richard - 05/16/18 10:57> Insertion time: 21:08 <Saji Richard - 05/16/18 10:57> Removal date: 04/12/18 <Saji Richard - 05/16/18 10:57> Removal time: 11:35 <Saji Richard - 05/16/18 10:57> Straight Cath placed during this visit: no <Pedro Shay - 05/19/18 13:45> yes <Saji Richard - 05/16/18 11:11> Reason for continuing: Other continuation reason <Saji Richard - 05/16/18 10:57> Insertion date: 04/11/18 <Saji Richard - 05/16/18 10:57> Insertion time: 21:08 <Saji Richard 05/16/18 10:57> Assessment and Plan - Assessment (1) Osteomyelitis of ankle Code(s): M86.9 - Osteomyelitis, unspecified Status: Acute (2) Ischemia of foot Code(s): I99.8 - Other disorder of circulatory system Status: Acute (3) Anemia Code(s): D64.9 - Anemia, unspecified Status: Acute (4) Infection associated with internal hip prosthesis Code(s): T84.59XA - Infection and inflammatory reaction due to other internal joint prosthesis, initial encounter; Z96.649 - Presence of unspecified artificial hip joint Status: Acute (5) Chronic wound of extremity Status: Chronic (6) MRSA (methicillin resistant staph aureus) culture positive Code(s): Z22.322 - Carrier or suspected carrier of Methicillin resistant Staphylococcus aureus Status: Acute (7) PAD (peripheral artery disease) Code(s): I73.9 - Peripheral vascular disease, unspecified Status: Chronic (8) Bandemia Code(s): D72.825 - Bandemia Status: Resolved (9) Hydronephrosis Code(s): N13.30 - Unspecified hydronephrosis Status: Resolved (10) HTN (hypertension) Code(s): I10 - Essential (primary) hypertension Status: Acute (11) Diabetes Code(s): E11.9 - Type 2 diabetes mellitus without complications Status: Acute (12) Malnutrition Code(s): E46 - Unspecified protein-calorie malnutrition Status: Acute (13) Anisocoria Code(s): H57.02 - Anisocoria Status: Acute (14) Suicidal ideation Code(s): R45.851 - Suicidal ideations Status: Acute (15) Nutrition, metabolism, and development symptoms Code(s): R63.8 - Other symptoms and signs concerning food and fluid intake Status: Acute <ShayPedro - 05/19/18 13:45> (1) Osteomyelitis of ankle Code(s): M86.9 - Osteomyelitis, unspecified Status: Acute Plan: Osteomyelitis of right ankle, culture positive for MRSA of right thigh wound. Wound culture of right ankle shows Pseudomonas and multidrug resistant Proteus as well as group D enterococcus. -Bcx NGTD Podiatry had been consulted, recommended below-knee amputation, patient refused , podiatry history below Vascular surgery consulted * s/p REBEAMER of popliteal stenosis on 04/24 * Anterior tibial, posterior tibia and peritoneal artery occluded Lower extremity pulses appreciated Via Doppler. Right popliteal pulse appreciated on exam -Balloon angioplasty and atherectomy 05/15 ID consulted, appreciate recs * Continue vancomycin--until Jun 07, 6 weeks after hardware removal for the R hip * Continue Zerbaxa--for the heel ulcer and osteo due to resistance of organisms Wound care consulted, appreciate recs * See note from 04/25 * follow recommendations * Pain management with [place] scheduled, gabapentin, morphine for breakthrough pain Podiatry history; * plan for patient to have calcanectomy on 04/26 however due to patient's inability to recall presurgery discussion when seen by podiatry the morning of 04/26 Dr. Urena will no longer be performing calcanectomy procedure. * Recommends: betadine wet to dry daily and if foot/heel becomes acutely infected rec as patient is unable to care for himself or able to mentally process limb salvage procedure options. In addition, the likelihood of failure was already high due to the low vascularity to the right lower limb. * Podiatry has signed off. * Discussed option of below-knee amputation of right lower extremity and Patient still not interested (2) Ischemia of foot Code(s): I99.8 - Other disorder of circulatory system Status: Acute Plan: Patient with developing ischemia of right 1st and 2nd toe. Vascular surgery reconsulted. -Balloon angioplasty and arthrectomy 05/15 -Patient continues to refuse BKA -Palliative care attempting to contact medical proxy to further determine goals of care (3) Anemia Code(s): D64.9 - Anemia, unspecified Status: Acute Plan: On admission found to have hemoglobin of 6.6, status post 2 units RBCs transfused. Had tarry stools, endoscopy and colonoscopy benign other than small ulcer in rectum. Hemoglobin stable. -Trend H/H (4) Infection associated with internal hip prosthesis Code(s): T84.59XA - Infection and inflammatory reaction due to other internal joint prosthesis, initial encounter; Z96.649 - Presence of unspecified artificial hip joint Status: Acute Plan: Found to have right hip prosthesis infection. Irrigation, debridement, hardware removal and placement of antibiotic beads (04/27). -Orthopedics consulted, appreciate recommendations -Recommend 2-week follow-up, antibiotics per ID for chronic osteomyelitis (5) Chronic wound of extremity Status: Chronic Plan: Patient currently follows up with wound care as an outpatient Wound management: Right hip wound, super absorbant dressing daily Skin tear lower left extremity, Santyl covered and dry dressing daily Right heel wound, apply gentamicin cream twice daily, see above plan for associated osteomyelitis Wound care consulted, appreciate recommendations * Cleanse wound to R Achilles heel with normal saline only and pat dry. Apply gentamicin mixed with Santyl 50/ 50 and apply to wound bed * Cover with ABD pad, and secure with rolled gauze and tape. Change dressing daily, until seen by podiatry. * Cleanse wound to R hip see updated note from 04/25 and follow ortho rec for dressing * Cleanse wound to L posterior lower leg with normal saline and pat dry. Apply optifoam gentle 4x4 dressing change dressing every 3 days or PRN if saturated or dislodged. * Sacral wound: -Please cleanse sacral area gently with Remedy barrier wipes and pat dry. Apply Cavilon skin barrier film spray to sacral area BID and PRN and leave open to air. -Turn and reposition patient every 2 hours from L to R side limiting time spent on back to P.T. and meals -Patient placed on low airloss bed/ mattress -Will try to get in contact with wound care for re-evaluation of sacral wound , stable on exam (6) MRSA (methicillin resistant staph aureus) culture positive Code(s): Z22.322 - Carrier or suspected carrier of Methicillin resistant Staphylococcus aureus Status: Acute Plan: This patient suffers from chronic nonhealing wounds likely secondary to peripheral arterial disease and DM. Patient had wound from right thigh cultured which ultimately grew MRSA. -Monitor for fevers and signs of systemic illness -Antibiotic therapy as above (7) PAD (peripheral artery disease) Code(s): I73.9 - Peripheral vascular disease, unspecified Status: Chronic Plan: s/p recent right LE arterectomy. s/p vascular procedure as above on 04/24 (8) Bandemia Code(s): D72.825 - Bandemia Status: Resolved Plan: Resolved, likely due to osteomyelitis. See above plan. (9) Hydronephrosis Code(s): N13.30 - Unspecified hydronephrosis Status: Resolved Plan: Left hydronephrosis and hydroureter without obstruction on CT (04/11). Currently voiding well, no CVA tenderness. UA (-)04/26. Not noted on CT on . - Continue to monitor I's and O's. (10) HTN (hypertension) Code(s): I10 - Essential (primary) hypertension Status: Acute Plan: Continue Cardizem and amiodarone (11) Diabetes Code(s): E11.9 - Type 2 diabetes mellitus without complications Status: Acute Plan: Hx of DM -Held home glipizide, Januvia -Accu-Cheks -Low-dose sliding scale -Hypoglycemia protocol in place (12) Malnutrition Code(s): E46 - Unspecified protein-calorie malnutrition Status: Acute Plan: This patient appears thin and possibly malnourished. Patient has significant muscle atrophy in arms and legs that are partially consistent with age and lack of activity. 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 Patient unsure of specific cause or diagnoses. Can follow up with Ophthalmology outpatient as needed (14) Suicidal ideation Code(s): R45.851 - Suicidal ideations Status: Acute Plan: Nurse reported that patient expressed fluctuating suicidal ideation and refusal of taking his medications om 05/11. His mood improved later on in the morning. Denies SI/HI -Citalopram 10 mg daily -Continue to assess status (15) Nutrition, metabolism, and development symptoms Code(s): R63.8 - Other symptoms and signs concerning food and fluid intake Status: Acute Plan: Fluids: per PO Diet: Diabetic supplements with protein shake Electrolytes: monitor and replete as needed DVT prophylaxis: Contraindicated due to upper GI bleed Disposition: SNF not taking patient at this time due to cost of Zerbaxa <Saji Richard - 05/16/18 11:06> - Attending Attestation See the residents documentation for details. I saw and evaluated the patient regarding the [place] portions of this evaluation and agree with the residents findings and plans as written. Parts of this note were created using [employer] voice recognition software program. While efforts were made to correct any mistakes made by this software, some mistakes, errors, and omissions may remain in the final note that were not caught when the note was originally created. Plan of care was discussed and agreed upon with the patient as specifically documented in the above note. An opportunity to ask questions with explanation was provided. Patient voiced understanding on all information reviewed and discussed. <Pedro Shay - 05/19/18 13:45> <Saji Richard - Last Filed: 05/16/18 11:06> (1) Osteomyelitis of ankle Qualifiers: Osteomyelitis type: other chronic Laterality: right Qualified Code(s): M86.671 - Other chronic osteomyelitis, right ankle and foot (9) Hydronephrosis Qualifiers: Hydronephrosis type: unspecified Qualified Code(s): N13.30 - Unspecified hydronephrosis <Pedro Shay - Last Filed: 05/19/18 13:45> (1) Osteomyelitis of ankle Qualifiers: Osteomyelitis type: other chronic Laterality: right Qualified Code(s): M86.671 - Other chronic osteomyelitis, right ankle and foot (9) Hydronephrosis Qualifiers: Hydronephrosis type: unspecified Qualified Code(s): N13.30 - Unspecified hydronephrosis <Saji Richard - Last Filed: 05/16/18 11:06> (1) Osteomyelitis of ankle Qualifiers: Osteomyelitis type: other chronic Laterality: right Qualified Code(s): M86.671 - Other chronic osteomyelitis, right ankle and foot (9) Hydronephrosis Qualifiers: Hydronephrosis type: unspecified Qualified Code(s): N13.30 - Unspecified hydronephrosis <Pedro Shay - Last Filed: 05/19/18 13:45> (1) Osteomyelitis of ankle Qualifiers: Osteomyelitis type: other chronic Laterality: right Qualified Code(s): M86.671 - Other chronic osteomyelitis, right ankle and foot (9) Hydronephrosis Qualifiers: Hydronephrosis type: unspecified Qualified Code(s): N13.30 - Unspecified hydronephrosis
--- NOTE | 2018-05-16 14:47 | P.PNPAL ---
Reason for Visit Reason for visit: a. To assist with evaluation and management of symptoms including: Pain, weakness b. To assist medical decision maker(s) with: better understanding of current medical conditions; weighing benefits/burdens of medical treatment options; making medical treatment decisions. Subjective Subjective/Interval History: This is an 87-year-old male transferred from the nursing facility on 04/11 to the emergency department for low hemoglobin. The patient had just been seen by Dr. Oliva and had undergone arteriogram with lower extremity angiogram, right SFA and popliteal atherectomy to the right lower extremity. He was found to be confused, aware only of his name and that he was at the hospital. Patient is seen today for follow-up of symptom management for pain and weakness and to assist family in goals of medical treatment. He remains moderately painful, primarily right lower extremity, secondary to large calcaneal wound, ischemic toes, chronic wounds. He continues to receive hydrocodone/acetaminophen 1 tab every 4 hours as needed, using 4-6 tablets daily and gabapentin 600 mg p.o. 3 times daily. Pain is worse with movement and touch. He remains somewhat confused and has difficulty maintaining elevation of his leg with heel floated due to restlessness in the bed. He is receiving vancomycin for 6 weeks until 06/07 and Zerbaxa (Ceftolozane and tazobactam) for an unspecified length of time. Culture was positive for MDR pseudomonas aeruginosa (showing intermediate sensitivity to cefepime and ceftazidime, but resistant to other antibiotics tested), Proteus mirabilis ( pansensitive), enterococcus faecalis (sensitive to vancomycin). He remains weak and has not been getting out of bed due to the compromised integrity of the right heel. Per my discussion with his local guardian, he was ambulatory at the facility prior to admission. Wound care has established the treatment protocol for the wound, but due to poor blood flow, in spite of several peripheral vascular procedures recently, circulation remains compromised. 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 Prolonged bedbound status is likely to exacerbate his weakness. . Family/Friend Interactions: Spoke with his guardian today at length, Kyleighchanel Landa, who expresses concern that amputation of his leg will destroy his remaining quality of life and is at significant risk of creating yet another nonhealing wound. Her plan is to recommend to the patient's daughter, Ewa, who lives in [facility] and is the legal guardian, to decline amputation, transfer the patient back to the [facility] facility with hospice services to maximize his quality of life for the remaining duration. The skilled nursing at this time has declined to accept him back due to the cost of his antibiotic, Zerbaxa. I spoke with his attending resident today, Dr. Graves, regarding this roadblock to discharge and it was his plan to discuss antibiotic alternatives with Dr. Bonilla, the infectious disease specialist, to determine a possible alternative acceptable to the [facility] facility and to discuss a possible orthotic with his attending to offload heel pressure which would allow the patient to participate in physical therapy and prevent worsening of weakness, which could enable the patient to return to the skilled nursing. This was also discussed with machine adjuster leader case trim, Tamia Ramires to address in MDR meeting. . Advance Directives Living Will: Completed, but not made available Health Care Surrogate: Completed, but not made available Durable Power of Primary Therapist: Completed, but not made available Objective Vital Signs: Vital Signs 05/15/18 16:00 05/15/18 20:00 05/16/18 00:00 Temperature 97.4 F L 98.9 F 98.1 F Pulse Rate 57 L 65 61 Respiratory Rate 16 15 18 Blood Pressure 110/53 L 93/48 L 111/57 L Pulse Oximetry 98 96 93 L 05/16/18 04:00 05/16/18 08:00 05/16/18 12:00 Temperature 97.9 F 98.1 F 97.4 F L Pulse Rate 61 65 62 Respiratory Rate 17 16 20 Blood Pressure 119/60 110/56 L 104/51 L Pulse Oximetry 96 94 L 97 05/16/18 12:13 Temperature Pulse Rate Respiratory Rate Blood Pressure Pulse Oximetry 97 Intake & Output 05/15/18 05/16/18 05/16/18 18:59 06:59 18:59 Intake Total 362.5 / 362.5 340 / 340 100 / 100 Output Total 600 / 600 850 / 850 Balance -237.5 / -237.5 -510 / -510 100 / 100 Weight 167 lb 1.766 oz Intake: IV 362.5 / 362.5 100 / 100 100 / 100 Zerbaxa Inj 1,500 MG In NS Inj 100 / 100 100 / 100 100 / 100 100 ML @ 100 mls/hr IV.SIG Q8H [facility] Rx#:[id number] Vancomycin Inj 1,250 MG In NS 262.5 / 262.5 Inj 250 ML @ 262.5 mls/hr IV. SIG Q18H [facility] Rx#:[id number] Oral 0 / 0 240 / 240 Output: Urine 600 / 600 Urine Amount (Catheter) 850 / 850 Condom 850 / 850 Other: Date of Last Bowel Movement 05/13/18 # Bowel Movements 1 # Incontinent Bowel Movements 2 Physical Exam: CONSTITUTIONAL/GENERAL: This is elderly, cachectic male patient, in no apparent distress. TUBES/LINES/DRAINS: PIV SKIN: Scattered ecchymosis on upper and lower extremities, skin is dry with purpling on right second toe, right great toe, multiple abrasions and wounds on feet and ankles bilaterally, large ecchymotic right heel decubitus HEAD: Atraumatic. Normocephalic. EYES: Left pupil 4 mm and oblong from previous traumatic injury, right pupil 2 mm and reactive, extraocular motions intact. No scleral icterus. No injection or drainage. Fundi not examined. CARDIOVASCULAR: Regular rate and rhythm with 2/6 systolic ejection murmurs, no gallops, or rubs. No JVD. Peripheral pulses symmetric. RESPIRATORY/CHEST: Symmetric, unlabored respirations. Clear to auscultation. Breath sounds equal bilaterally. No wheezes, rales, or rhonchi. GASTROINTESTINAL: Abdomen soft, non-tender, nondistended. No hepato-splenomegaly , or palpable masses. No guarding. Bowel sounds present. GENITOURINARY: Without palpable bladder distension. MUSCULOSKELETAL: Extremities without clubbing, cyanosis, or edema. No joint tenderness or effusion noted. NEUROLOGICAL: Awake and alert. Generalized weakness. Follows commands. Cognitively he is pleasantly confused. Moves all extremities but has difficulty with bilateral lower extremities right greater than left secondary to pain. PSYCHIATRIC: No obvious anxiety/depression. no apparent hallucinations or other psychotic thought process. . Diagnostic Tests Laboratory: Laboratory Results - last 72 hr 05/13/18 05/13/18 05/14/18 17:47 20:00 07:31 WBC RBC Hgb Hct MCV MCH MCHC RDW Plt Count MPV Neut % (Auto) Lymph % (Auto) [place] % (Auto) Eos % (Auto) Baso % (Auto) Neut # (Auto) Lymph # (Auto) [place] # (Auto) Eos # (Auto) Baso # (Auto) WBC Differential Differential Comment Sodium Potassium Chloride Carbon Dioxide Anion Gap BUN Creatinine Estimated GFR POC Glucose 150 H 138 H 129 H Random Glucose Calcium Vancomycin Trough 05/14/18 05/14/18 05/14/18 13:09 17:44 20:26 WBC RBC Hgb Hct MCV MCH MCHC RDW Plt Count MPV Neut % (Auto) Lymph % (Auto) [place] % (Auto) Eos % (Auto) Baso % (Auto) Neut # (Auto) Lymph # (Auto) [place] # (Auto) Eos # (Auto) Baso # (Auto) WBC Differential Differential Comment Sodium Potassium Chloride Carbon Dioxide Anion Gap BUN Creatinine Estimated GFR POC Glucose 140 H 138 H 145 H Random Glucose Calcium Vancomycin Trough 05/15/18 05/15/18 05/15/18 04:57 04:57 09:21 WBC 9.8 RBC 3.49 L Hgb 10.5 L Hct 31.2 L MCV 89.5 MCH 30.0 MCHC 33.5 RDW 21.0 H Plt Count 387 MPV 7.3 Neut % (Auto) 68.2 Lymph % (Auto) 13.0 [place] % (Auto) 8.4 H Eos % (Auto) 7.7 H Baso % (Auto) 2.7 H Neut # (Auto) 6.7 Lymph # (Auto) 1.3 [place] # (Auto) 0.8 Eos # (Auto) 0.7 H Baso # (Auto) 0.3 H WBC Differential . Differential Comment Auto diff final Sodium 130 L Potassium 4.7 Chloride 96 L Carbon Dioxide 26.2 Anion Gap 8 BUN 13 Creatinine 0.58 L Estimated GFR Greater than 89 POC Glucose 176 H Random Glucose 113 H Calcium 8.5 Vancomycin Trough 05/15/18 05/15/18 05/15/18 12:42 17:32 19:50 WBC RBC Hgb Hct MCV MCH MCHC RDW Plt Count MPV Neut % (Auto) Lymph % (Auto) [place] % (Auto) Eos % (Auto) Baso % (Auto) Neut # (Auto) Lymph # (Auto) [place] # (Auto) Eos # (Auto) Baso # (Auto) WBC Differential Differential Comment Sodium Potassium Chloride Carbon Dioxide Anion Gap BUN Creatinine Estimated GFR POC Glucose 121 H 107 122 H Random Glucose Calcium Vancomycin Trough 05/16/18 05/16/1805/16/18 06:31 06:31 08:19 WBC 12.8 H RBC 3.07 L Hgb 9.2 L Hct 27.5 L MCV 89.4 MCH 29.8 MCHC 33.3 RDW 21.2 H Plt Count 382 MPV 7.2 Neut % (Auto) 80.0 H Lymph % (Auto) 5.3 L [place] % (Auto) 6.3 Eos % (Auto) 6.5 H Baso % (Auto) 1.9 Neut # (Auto) 10.3 H Lymph # (Auto) 0.7 L [place] # (Auto) 0.8 Eos # (Auto) 0.8 H Baso # (Auto) 0.2 WBC Differential . Differential Comment Auto diff final Sodium 132 L Potassium 4.5 Chloride 100 Carbon Dioxide 26.0 Anion Gap 6 BUN 16 Creatinine 0.66 Estimated GFR Greater than 89 POC Glucose 129 H Random Glucose 105 Calcium 7.8 L Vancomycin Trough 05/16/18 05/16/18 09:00 11:39 WBC RBC Hgb Hct MCV MCH MCHC RDW Plt Count MPV Neut % (Auto) Lymph % (Auto) [place] % (Auto) Eos % (Auto) Baso % (Auto) Neut # (Auto) Lymph # (Auto) [place] # (Auto) Eos # (Auto) Baso # (Auto) WBC Differential Differential Comment Sodium Potassium Chloride Carbon Dioxide Anion Gap BUN Creatinine Estimated GFR POC Glucose 217 H Random Glucose Calcium Vancomycin Trough 24.0 H Result Diagrams: 05/16/18 06:31 05/16/18 06:31 Microbiology: Microbiology 04/27/18 12:43 Wound - Thigh Acid Fast Bacilli Smear - Final No acid fast bacilli seen 04/27/18 12:43 Wound - Thigh Mycobacterial Culture - Preliminary No growth in 2 weeks 04/27/18 12:43 Wound - Thigh Fungal Smear - Final No fungal elements seen 04/27/18 12:43 Wound - Thigh Fungal Culture - Preliminary No growth in 2 weeks 04/29/18 09:05 Blood - Peripheral Aerobic Blood Culture - Final No growth in 5 days 04/29/18 09:05 Blood - Peripheral Anaerobic Blood Culture - Final No growth in 5 days 04/29/18 09:10 Blood - Peripheral Aerobic Blood Culture - Final No growth in 5 days 04/29/18 09:10 Blood - Peripheral Anaerobic Blood Culture - Final No growth in 5 days 05/01/18 19:00 Stool Occult Blood - Final Hemoccult negative 04/27/18 12:43 Wound - Thigh Gram Stain - Final 04/27/18 12:43 Wound - Thigh Wound Culture - Final No growth in 72 hours (aerobically and anaerobically ) 04/16/18 15:55 Wound - Foot Gram Stain - Final 04/16/18 15:55 Wound - Foot Wound Culture - Final Pseudomonas aeruginosa Multidrug Resistant Proteus mirabilis Enterococcus faecalis 04/11/18 13:45 Blood - Peripheral Aerobic Blood Culture - Final No growth in 5 days 04/11/18 13:45 Blood - Peripheral Anaerobic Blood Culture - Final No growth in 5 days 04/11/18 13:50 Blood - Peripheral Aerobic Blood Culture - Final No growth in 5 days 04/11/18 13:50 Blood - Peripheral Anaerobic Blood Culture - Final No growth in 5 days 04/11/18 12:00 Wound - Thigh Gram Stain - Final 04/11/18 12:00 Wound - Thigh Wound Culture - Final S. aureus MRSA Imaging: ITS Impressions Head CT 04/11/18 11:59 CONCLUSION: 1. Stable appearance of the brain. . Ankle MRI 04/15/18 00:00 CONCLUSION: 1. Osteomyelitis of the posterior calcaneus with a near complete tear of the distal Achilles tendon. There is overlying cellulitis and subcutaneous edema with a small abscess adjacent to the distal Achilles tendon as measured above. There is edematous change on the plantar aspect of the foot with a tenosynovitis as above. No acute fracture identified. Mild bone edema tibia, nonspecific. Ankle X-Ray 04/15/18 00:00 CONCLUSION: Osteomyelitis of the posterior calcaneus with overlying soft tissue swelling and ulceration. No acute fracture. Femur MRI 04/25/18 00:00 CONCLUSION: 1. 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 The collection appears to communicate with the prosthetic component in the proximal femur. 2. Edematous changes are noted along the vastus lateralis and iliotibial band. Hip X-Ray 04/27/18 00:00 CONCLUSION: Hardware removal on the right. Abdomen/Pelvis CT 04/30/18 10:28 Review of bone windows reveals moderate degenerative changes in the lumbar spine and both SI joints. CONCLUSION: 1. Large bolus of stool in the rectum with stool throughout the colon suggesting constipation with possible impaction 2. Prominent gallbladder without stones 3. 2 nonobstructing stones in the left kidney. Procedures: 04/14: Colonoscopy 04/19: Endoscopy 04/24: Right lower extremity angiogram, right popliteal PURCHASING AND CLAIMS SUPERVISOR. 04/27: Removal of hardware right femur, Synthes TFN, irrigation and debridement of skin, subcu tissue, muscle and bone with insertion of Stimulan and antibiotic beads spacer. Assessment and Plan Pertinent Non-Medical Issues: Psychosocial: He was born in [place] and retired from [employer]. He has been twice and is now . He has 2 children that live in [facility]. His daughter Ewa is his healthcare decision maker. 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 Legal: Has an elder care employee benefits attorney, Rubin Sequeira Ethical issues impacting care: Patient is confused. . Important Contacts: Daughter: Ewa Tovar ([facility]) [phone] media coordinator: Kyleigh Landa (HIPPA release on chart for her to receive info) Primary Therapist: Rubin Sequeira Prognosis: His prognosis is guarded. He is of advanced age with multiple comorbidities. He has several chronic nonhealing wounds, severe peripheral artery disease and a large calcaneal ulcer on his right heel. He has a draining wound on his right hip and is at elevated risk for continued infections, complications, possible loss of limb, sepsis and even . He is currently refusing amputation of the right foot but has poor insight, is confused and does not appear to have capacity to make that decision. Contact being established with patient's urgent care physician and daughter to clarify goals however, decreased vascularity to his periphery raises his risk of continued infection and failure regardless of the decision to amputate or not. . Code Status: No Code DNR Plan: PLAN: Legal decision maker: Patient is not capacitated for decision-making. His daughter Ewa has been designated as his healthcare proxy and she lives in [facility]. To that end she has hired a local urgent care physician, Kyleigh Landa, to assist her in decision-making. Goals: To be determined. CODE STATUS: DO NOT RESUSCITATE SYMPTOMS: * Pain: He complains of pain in the right foot and heel, worse with movement, intermittent, stabbing with no relieving factors except lying still and opioids. He is receiving hydrocodone/acetaminophen/10/325 every 4 hours as needed and gabapentin 600 mg 3 times daily. He is taking an average of 4-6 [place] tablets daily. He remains painful after atherectomy and angioplasty yesterday. * Weakness: He is generally weak but was reportedly ambulatory with assistance at [facility], per the guardian. Given the wounds on his heel, progressive ischemia of the second toe and prolonged hospitalization, he may benefit from rehab if able to cooperate with therapy and if the heel is able to be protected. Discussed with Dr. Graves the possibility of assistance from [facility] to find a boot that would offload and protect the heel but allow him the ability to work with PT. Palliative care will continue to follow the patient during hospital course as condition evolves, to assist patient/decision-maker with understanding of their medical conditions, weighing benefits/burdens of treatment options, for clarification of goals of treatment. Additionally will assist with any symptoms of palliative concern. . Attestation Attestation: To help prompt me to consider important information that might be impacting today's encounter and assessment, information from prior notes written by myself or my colleagues may have been "brought forward" into today's note. My signature on this note, however, is an attestation that I personally performed the exam, history, and/or decision-making noted today, and, unless otherwise indicated, the interactions with patient, family, and staff as well as the review of records all occurred today. I also attest that the listed assessment and stated plan reflect my best clinical judgment today based on the combination of historical information, prior notes, and today's exam/ interactions. When time spent is documented, it refers only to time spent today by the signer, or if indicated, combined time spent today by collaborating physician/nurse practitioner. .
[2018-05-17] MEDS: Levothyroxine 125 MCG Tablet PO SCH (07:05)
[2018-05-17] MEDS: CEFTOLOZANE IV.SIG SCH ×3 (07:05→22:01)
[2018-05-17] MEDS: TAZOBACTAM IV.SIG SCH ×3 (07:05→22:01)
[2018-05-17] MEDS: SODIUM CHLOR 0.9% IV.SIG SCH ×3 (07:05→22:01)
[2018-05-17 07:15] LABS: Glomerular Filtration Rate Greater Than 89 mL/min (>89)
[2018-05-17] MEDS: Insulin NovoLOG Aspart Correctional Sugar Inj SQ SCH ×4 (09:37→20:44)
[2018-05-17] MEDS: Citalopram 20 MG Tablet PO SCH (09:38)
[2018-05-17] MEDS: Docusate Sodium 100 MG Capsule PO SCH ×2 (09:38→20:40)
[2018-05-17] MEDS: Ferrous Sulfate 325 MG Tablet PO SCH ×3 (09:38→17:39)
[2018-05-17] MEDS: Amiodarone 200 MG Tablet PO SCH (09:38)
[2018-05-17] MEDS: Sodium Chloride 1 GM Tablet PO SCH ×3 (09:38→17:39)
[2018-05-17] MEDS: Polyethylene Glycol 3350 17 GM Packet PO SCH (09:38)
[2018-05-17] MEDS: Gabapentin 300 MG Capsule PO SCH ×3 (09:38→17:39)
[2018-05-17] MEDS: Potassium Phos/Sodium Phos 250 MG Tablet PO SCH ×4 (09:38→20:43)
[2018-05-17] MEDS: Ascorbic Acid 500 MG Tablet PO SCH ×2 (09:38→20:40)
[2018-05-17] MEDS: Magnesium Oxide 400 MG Tablet PO SCH ×4 (09:39→20:43)
[2018-05-17] MEDS: Collagenase Oint 30 GM Tube TOPICAL SCH (09:43)
[2018-05-17] MEDS: Gentamicin 0.1% Cream 15 GM Cream TOPICAL SCH ×2 (09:43→20:40)
[2018-05-17 09:50] LABS: Baso # (Auto) 0.2 th/mm3 (0.0-0.2); Baso % (Auto) 2.2 % (0.0-2.0); Eos # (Auto) 1.1 th/mm3 (0.0-0.4); Eos % (Auto) 12.9 % (0.0-4.0); Hematocrit 24.2 % (39.0-51.0); Hemoglobin 8.2 gm/dL (13.0-17.0); Lymph % (Auto) 11.7 % (9.0-44.0); Mean Corpuscular HGB Conc 34.1 % (32.0-36.0); Mean Corpuscular Hemoglobin 30.8 pg (27.0-34.0); Mean Corpuscular Volume 90.5 fL (80.0-100.0); Mean Platelet Volume 6.8 fL (7.0-11.0); Mono # (Auto) 0.9 th/mm3 (0.0-0.9); Mono % (Auto) 10.4 % (0.0-8.0); Neut # (Auto) 5.2 th/mm3 (1.8-7.7); Neut % (Auto) 62.8 % (16.0-70.0); Platelet Count 304 th/mm3 (150-450); Red Blood Count 2.67 mil/mm3 (4.50-5.90); Red Cell Distribution Width 21.8 % (11.6-17.2); White Blood Count 8.3 th/mm3 (4.0-11.0)
[2018-05-17 10:11] LABS: Anion Gap 6 meq/L (5-15); Blood Urea Nitrogen 16 mg/dL (7-18); Calcium 8.4 mg/dL (8.5-10.1); Carbon Dioxide 24.3 meq/L (21.0-32.0); Chloride 102 meq/L (98-107); Glomerular Filtration Rate Greater Than 89 mL/min (>89); Glucose,Random 110 mg/dL (74-106); Potassium 4.6 meq/L (3.5-5.1); Sodium 132 meq/L (136-145)
--- NOTE | 2018-05-17 13:11 | P.PNFP ---
Subjective Interval history: Patient seen and examined today. Reports continued pain in his right leg. No significant pain in his foot. Denies nausea, vomiting, fever , chills, abdominal pain, chest pain, shortness of breath, lightheadedness, dizziness. No acute events overnight. No other complaints today. <Saji Richard - 05/17/18 14:58> Results - Labs Result diagrams: 05/18/18 09:30 05/19/18 06:05 <Pedro Shay - 05/19/18 14:02> Abnormal lab results 05/18/18 05/18/18 05/19/18 Range/Units 17:36 19:18 06:05 Creatinine 0.55 L (0.60-1.30) mg/dL POC Glucose 135 H 149 H (68-110) mg/dl 05/19/18 05/19/18 Range/Units 07:44 12:11 Creatinine (0.60-1.30) mg/dL POC Glucose 141 H 156 H (68-110) mg/dl BMP 05/19/18 06:05 Creatinine 0.55 L <Pdero Shay - 05/19/18 14:02> Abnormal lab results 05/16/18 05/16/18 05/17/18 Range/Units 16:32 20:40 05:54 RBC (4.50-5.90) mil/mm3 Hgb (13.0-17.0) gm/dL Hct (39.0-51.0) % RDW (11.6-17.2) % MPV (7.0-11.0) fL Banks % (Auto) (0.0-8.0) % Eos % (Auto) (0.0-4.0) % Baso % (Auto) (0.0-2.0) % Eos # (Auto) (0.0-0.4) th/mm3 Sodium (136-145) meq/L Creatinine 0.52 L (0.60-1.30) mg/dL POC Glucose 135 H 128 H (68-110) mg/dl Random Glucose (74-106) mg/dL Calcium (8.5-10.1) mg/dL 05/17/18 05/17/18 05/17/18 Range/Units 09:31 09:31 09:37 RBC 2.67 L (4.50-5.90) mil/mm3 Hgb 8.2 L (13.0-17.0) gm/dL Hct 24.2 L (39.0-51.0) % RDW 21.8 H (11.6-17.2) % MPV 6.8 L (7.0-11.0) fL Banks % (Auto) 10.4 H (0.0-8.0) % Eos % (Auto) 12.9 H (0.0-4.0) % Baso % (Auto) 2.2 H (0.0-2.0) % Eos # (Auto) 1.1 H (0.0-0.4) th/mm3 Sodium 132 L (136-145) meq/L Creatinine 0.53 L (0.60-1.30) mg/dL POC Glucose 123 H (68-110) mg/dl Random Glucose 110 H (74-106) mg/dL Calcium 8.4 L (8.5-10.1) mg/dL Short CBC 05/17/18 Range/Units 09:31 WBC 8.3 (4.0-11.0) th/mm3 Hgb 8.2 L (13.0-17.0) gm/dL Hct 24.2 L (39.0-51.0) % Plt Count 304 (150-450) th/mm3 BMP 05/17/18 05/17/18 05:54 09:31 Sodium 132 L Potassium 4.6 Chloride 102 Carbon Dioxide 24.3 BUN 16 Creatinine 0.52 L 0.53 L Calcium 8.4 L <Saji Richard A - 05/17/18 13:11> Physical Exam Vital signs: Vital Signs 05/18/18 16:00 05/18/18 20:00 05/19/18 00:00 Temperature 97.8 F 97.9 F 98.4 F Pulse Rate 60 60 64 Respiratory Rate 20 17 18 Blood Pressure 127/61 127/71 101/52 L Pulse Oximetry 97 95 96 05/19/18 04:00 05/19/18 08:00 05/19/18 09:47 Temperature 97.7 F Pulse Rate 60 59 L Respiratory Rate 17 10 L Blood Pressure 122/75 Pulse Oximetry 97 05/19/18 13:27 Temperature Pulse Rate Respiratory Rate 20 Blood Pressure Pulse Oximetry Intake & Output 05/18/18 05/19/18 05/19/18 18:59 06:59 18:59 Intake Total 842.5 / 842.5 440 / 440 Output Total 1300 / 1300 Balance 842.5 / 842.5 -860 / -860 Intake: IV 362.5 / 362.5 200 / 200 Zerbaxa Inj 1,500 MG In NS Inj 100 / 100 200 / 200 100 ML @ 100 mls/hr IV.SIG Q8H ACE Rx#:[id number] Vancomycin Inj 1,250 MG In NS 262.5 / 262.5 Inj 250 ML @ 250 mls/hr IV.SIG Q24H ACE Rx#:[id number] Oral 480 / 480 240 / 240 Output: Urine 1300 / 1300 Other: # Voids 1 Date of Last Bowel Movement 05/19/18 05/19/18 # Bowel Movements 1 <Pedro Shay - 05/19/18 14:02> Vital Signs 05/16/18 16:00 05/16/18 17:44 05/16/18 18:20 Temperature 98.0 F Pulse Rate 57 L Respiratory Rate 14 20 Blood Pressure 135/60 Pulse Oximetry 98 98 05/16/18 20:00 05/17/18 00:00 05/17/18 04:00 Temperature 98.0 F 97.8 F 97.4 F L Pulse Rate 97 H 64 64 Respiratory Rate 20 15 17 Blood Pressure 116/63 97/50 L 134/59 L Pulse Oximetry 97 98 97 05/17/18 08:00 05/17/18 11:20 Temperature 97.8 F Pulse Rate 56 L Respiratory Rate 20 Blood Pressure 102/54 L Pulse Oximetry 96 98 Intake & Output 05/16/18 05/17/18 05/17/18 18:59 06:59 18:59 Intake Total 942.5 / 942.5 340 / 340 100 / 100 Output Total 700 / 700 950 / 950 Balance 242.5 / 242.5 -610 / -610 100 / 100 Weight 76.3 kg Intake: IV 462.5 / 462.5 100 / 100 100 / 100 Zerbaxa Inj 1,500 MG In NS Inj 200 / 200 100 / 100 100 / 100 100 ML @ 100 mls/hr IV.SIG Q8H [facility] Rx#:[id number] Vancomycin Inj 1,250 MG In NS 262.5 / 262.5 Inj 250 ML @ 250 mls/hr IV.SIG Q24H ACE Rx#:[id number] Oral 480 / 480 240 / 240 Output: Urine 700 / 700 Urine Amount (Catheter) 950 / 950 Condom 950 / 950 Other: # Incontinent Bowel Movements 3 1 <Saji Richard - 05/17/18 13:11> Narrative: GENERAL: Pleasant elderly male thin, appears malnourished. Alert to person and place but not time. SKIN: Cool and dry. No generalized rash. HEAD: Atraumatic. Normocephalic. No temporal wasting, or tenderness. EYES: Anisocoria, larger left pupil, EOMI CARDIOVASCULAR: Regular rate and rhythm. RESPIRATORY: Clear to auscultation. Breath sounds equal bilaterally. No rales , wheezing or rhonchi ABDOMEN: Soft, non-tender, nondistended. No guarding. No rebound. No organomegaly. EXTREMITIES: No edema. Atrophic muscular changes in both legs bilaterally. Patient able to move toes bilaterally and no decreased sensation. Heels wrapped , C/D/I. Increasingly dark purple discoloration of left second toe up to the MTP joint, and distal left first toe. Dusky appearance of 3rd toe increased from yesterday, extending beyond PIP joint . <Saji Richard 05/17/18 14:58> - Urinary Catheter Management Condom Cath placed during this visit: no <Pedro Shay - 05/19/18 14:02> no <Saji Richard 05/17/18 14:58> Reason for continuing: Not indwelling catheter <Saji Richard 05/17/18 13 :11> Indwelling Urethral Catheter Cath placed during this visit: no <Pedro Shay - 05/19/18 14:02> yes, but has since been removed by the nurse <Saji Richard 05/17/18 14:58> Reason for continuing: Not indwelling catheter <Saji Richard 05/17/18 13 :11> Insertion date: 04/11/18 <Saji Richard 05/17/18 13:11> Insertion time: 21:08 <Saji Richard 05/17/18 13:11> Removal date: 04/12/18 <Saji Richard - 05/17/18 13:11> Removal time: 11:35 <Saji Richard - 05/17/18 13:11> Straight Cath placed during this visit: no <Pedro Shay - 05/19/18 14:02> yes <Saji Rihcard - 05/17/18 14:58> Reason for continuing: Other continuation reason <Saji Richard - 05/17/18 13:11> Insertion date: 04/11/18 <Saji Richard - 05/17/18 13:11> Insertion time: 21:08 <Saji Richard - 05/17/18 13:11> Assessment and Plan - Assessment (1) Osteomyelitis of ankle Code(s): M86.9 - Osteomyelitis, unspecified Status: Acute (2) Ischemia of foot Code(s): I99.8 - Other disorder of circulatory system Status: Acute (3) Anemia Code(s): D64.9 - Anemia, unspecified Status: Acute (4) Infection associated with internal hip prosthesis Code(s): T84.59XA - Infection and inflammatory reaction due to other internal joint prosthesis, initial encounter; Z96.649 - Presence of unspecified artificial hip joint Status: Acute (5) Chronic wound of extremity Status: Chronic (6) MRSA (methicillin resistant staph aureus) culture positive Code(s): Z22.322 - Carrier or suspected carrier of Methicillin resistant Staphylococcus aureus Status: Acute (7) PAD (peripheral artery disease) Code(s): I73.9 - Peripheral vascular disease, unspecified Status: Chronic (8) Bandemia Code(s): D72.825 - Bandemia Status: Resolved (9) Hydronephrosis Code(s): N13.30 - Unspecified hydronephrosis Status: Resolved (10) HTN (hypertension) Code(s): I10 - Essential (primary) hypertension Status: Acute (11) Diabetes Code(s): E11.9 - Type 2 diabetes mellitus without complications Status: Acute (12) Malnutrition Code(s): E46 - Unspecified protein-calorie malnutrition Status: Acute (13) Anisocoria Code(s): H57.02 - Anisocoria Status: Acute (14) Suicidal ideation Code(s): R45.851 - Suicidal ideations Status: Acute (15) Nutrition, metabolism, and development symptoms Code(s): R63.8 - Other symptoms and signs concerning food and fluid intake Status: Acute <Pedro Shay - 05/19/18 14:02> (1) Osteomyelitis of ankle Code(s): M86.9 - Osteomyelitis, unspecified Status: Acute Plan: Osteomyelitis of right ankle, culture positive for MRSA of right thigh wound. Wound culture of right ankle shows Pseudomonas and multidrug resistant Proteus as well as group D enterococcus. -Bcx NGTD Podiatry had been consulted, recommended below-knee amputation, patient refused , podiatry history below Vascular surgery consulted * s/p TOOLS ADMINISTRATOR of popliteal stenosis on 04/24 * Anterior tibial, posterior tibia and peritoneal artery occluded Lower extremity pulses appreciated Via Doppler. Right popliteal pulse appreciated on exam -Balloon angioplasty and atherectomy 05/15 ID consulted, appreciate recs * Continue vancomycin--until Jun 07, 6 weeks after hardware removal for the R hip * Continue Zerbaxa--for the heel ulcer and osteo due to resistance of organisms Wound care consulted, appreciate recs * See note from 04/25 * follow recommendations * Pain management with [place] scheduled, gabapentin, morphine for breakthrough pain Podiatry history; * plan for patient to have calcanectomy on 04/26 however due to patient's inability to recall presurgery discussion when seen by podiatry the morning of 04/26 Dr. Urena will no longer be performing calcanectomy procedure. * Recommends: betadine wet to dry daily and if foot/heel becomes acutely infected rec as patient is unable to care for himself or able to mentally process limb salvage procedure options. In addition, the likelihood of failure was already high due to the low vascularity to the right lower limb. * Podiatry has signed off. * Discussed option of below-knee amputation of right lower extremity and Patient still not interested (2) Ischemia of foot Code(s): I99.8 - Other disorder of circulatory system Status: Acute Plan: Patient with developing ischemia of right 1st and 2nd toe. Vascular surgery reconsulted. -Balloon angioplasty and arthrectomy 05/15 -Patient continues to refuse BKA -Palliative care attempting to contact medical proxy to further determine goals of care (3) Anemia Code(s): D64.9 - Anemia, unspecified Status: Acute Plan: On admission found to have hemoglobin of 6.6, status post 2 units RBCs transfused. Had tarry stools, endoscopy and colonoscopy benign other than small ulcer in rectum. Hemoglobin stable. -Trend H/H (4) Infection associated with internal hip prosthesis Code(s): T84.59XA - Infection and inflammatory reaction due to other internal joint prosthesis, initial encounter; Z96.649 - Presence of unspecified artificial hip joint Status: Acute Plan: Found to have right hip prosthesis infection. Irrigation, debridement, hardware removal and placement of antibiotic beads (04/27). -Orthopedics consulted, appreciate recommendations -Recommend 2-week follow-up, antibiotics per ID for chronic osteomyelitis (5) Chronic wound of extremity Status: Chronic Plan: Patient currently follows up with wound care as an outpatient Wound management: Right hip wound, super absorbant dressing daily Skin tear lower left extremity, Santyl covered and dry dressing daily Right heel wound, apply gentamicin cream twice daily, see above plan for associated osteomyelitis Wound care consulted, appreciate recommendations * Cleanse wound to R Achilles heel with normal saline only and pat dry. Apply gentamicin mixed with Santyl 50/ 50 and apply to wound bed * Cover with ABD pad, and secure with rolled gauze and tape. Change dressing daily, until seen by podiatry. * Cleanse wound to R hip see updated note from 04/25 and follow ortho rec for dressing * Cleanse wound to L posterior lower leg with normal saline and pat dry. Apply optifoam gentle 4x4 dressing change dressing every 3 days or PRN if saturated or dislodged. * Sacral wound: -Please cleanse sacral area gently with Remedy barrier wipes and pat dry. Apply Cavilon skin barrier film spray to sacral area BID and PRN and leave open to air. -Turn and reposition patient every 2 hours from L to R side limiting time spent on back to P.T. and meals -Patient placed on low airloss bed/ mattress -Will try to get in contact with wound care for re-evaluation of sacral wound , stable on exam (6) MRSA (methicillin resistant staph aureus) culture positive Code(s): Z22.322 - Carrier or suspected carrier of Methicillin resistant Staphylococcus aureus Status: Acute Plan: This patient suffers from chronic nonhealing wounds likely secondary to peripheral arterial disease and DM. Patient had wound from right thigh cultured which ultimately grew MRSA. -Monitor for fevers and signs of systemic illness -Antibiotic therapy as above (7) PAD (peripheral artery disease) Code(s): I73.9 - Peripheral vascular disease, unspecified Status: Chronic Plan: s/p recent right LE arterectomy. s/p vascular procedure as above on 04/24 (8) Bandemia Code(s): D72.825 - Bandemia Status: Resolved Plan: Resolved, likely due to osteomyelitis. See above plan. (9) Hydronephrosis Code(s): N13.30 - Unspecified hydronephrosis Status: Resolved Plan: Left hydronephrosis and hydroureter without obstruction on CT (04/11). Currently voiding well, no CVA tenderness. UA (-)04/26. Not noted on CT on . - Continue to monitor I's and O's. (10) HTN (hypertension) Code(s): I10 - Essential (primary) hypertension Status: Acute Plan: Continue Cardizem and amiodarone (11) Diabetes Code(s): E11.9 - Type 2 diabetes mellitus without complications Status: Acute Plan: Hx of DM -Held home glipizide, Januvia -Accu-Cheks -Low-dose sliding scale -Hypoglycemia protocol in place (12) Malnutrition Code(s): E46 - Unspecified protein-calorie malnutrition Status: Acute Plan: This patient appears thin and possibly malnourished. Patient has significant muscle atrophy in arms and legs that are partially consistent with age and lack of activity. 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 Patient unsure of specific cause or diagnoses. Can follow up with Ophthalmology outpatient as needed (14) Suicidal ideation Code(s): R45.851 - Suicidal ideations Status: Acute Plan: Nurse reported that patient expressed fluctuating suicidal ideation and refusal of taking his medications om 05/11. His mood improved later on in the morning. Denies SI/HI -Citalopram 10 mg daily -Continue to assess status (15) Nutrition, metabolism, and development symptoms Code(s): R63.8 - Other symptoms and signs concerning food and fluid intake Status: Acute Plan: Fluids: per PO Diet: Diabetic supplements with protein shake Electrolytes: monitor and replete as needed DVT prophylaxis: Contraindicated due to upper GI bleed Disposition: SNF not taking patient at this time due to cost of Zerbaxa <Saji Richard - 05/17/18 14:55> - Attending Attestation See the residents documentation for details. I saw and evaluated the patient regarding the ford portions of this evaluation and agree with the residents findings and plans as written. Parts of this note were created using [employer] voice recognition software program. While efforts were made to correct any mistakes made by this software, some mistakes, errors, and omissions may remain in the final note that were not caught when the note was originally created. Plan of care was discussed and agreed upon with the patient as specifically documented in the above note. An opportunity to ask questions with explanation was provided. Patient voiced understanding on all information reviewed and discussed. <Pedro Shay - 05/19/18 14:02> <Saji Richard - Last Filed: 05/17/18 14:55> (1) Osteomyelitis of ankle Qualifiers: Osteomyelitis type: other chronic Laterality: right Qualified Code(s): M86.671 - Other chronic osteomyelitis, right ankle and foot (9) Hydronephrosis Qualifiers: Hydronephrosis type: unspecified Qualified Code(s): N13.30 - Unspecified hydronephrosis <Pedro Shay - Last Filed: 05/19/18 14:02> (1) Osteomyelitis of ankle Qualifiers: Osteomyelitis type: other chronic Laterality: right Qualified Code(s): M86.671 - Other chronic osteomyelitis, right ankle and foot (9) Hydronephrosis Qualifiers: Hydronephrosis type: unspecified Qualified Code(s): N13.30 - Unspecified hydronephrosis <Saji Richard - Last Filed: 05/17/18 14:55> (1) Osteomyelitis of ankle Qualifiers: Osteomyelitis type: other chronic Laterality: right Qualified Code(s): M86.671 - Other chronic osteomyelitis, right ankle and foot (9) Hydronephrosis Qualifiers: Hydronephrosis type: unspecified Qualified Code(s): N13.30 - Unspecified hydronephrosis <Pedro Shay - Last Filed: 05/19/18 14:02> (1) Osteomyelitis of ankle Qualifiers: Osteomyelitis type: other chronic Laterality: right Qualified Code(s): M86.671 - Other chronic osteomyelitis, right ankle and foot (9) Hydronephrosis Qualifiers: Hydronephrosis type: unspecified Qualified Code(s): N13.30 - Unspecified hydronephrosis
[2018-05-17] MEDS: Vancomycin Inj 1,250 MG in Sodium Chlor 0.9% Inj 250 ML IV.SIG SCH (14:55)
[2018-05-18] MEDS: CEFTOLOZANE IV.SIG SCH ×3 (05:55→22:24)
[2018-05-18] MEDS: Levothyroxine 125 MCG Tablet PO SCH (05:55)
[2018-05-18] MEDS: SODIUM CHLOR 0.9% IV.SIG SCH ×3 (05:55→22:24)
[2018-05-18] MEDS: TAZOBACTAM IV.SIG SCH ×3 (05:55→22:24)
[2018-05-18] MEDS: Insulin NovoLOG Aspart Correctional Sugar Inj SQ SCH ×4 (09:04→20:30)
[2018-05-18] MEDS: Polyethylene Glycol 3350 17 GM Packet PO SCH (09:05)
[2018-05-18] MEDS: Docusate Sodium 100 MG Capsule PO SCH ×2 (09:05→20:29)
[2018-05-18] MEDS: Ascorbic Acid 500 MG Tablet PO SCH ×2 (09:05→20:31)
[2018-05-18] MEDS: Citalopram 20 MG Tablet PO SCH (09:05)
[2018-05-18] MEDS: Sodium Chloride 1 GM Tablet PO SCH ×3 (09:05→17:36)
[2018-05-18] MEDS: Gabapentin 300 MG Capsule PO SCH ×3 (09:05→17:36)
[2018-05-18] MEDS: Potassium Phos/Sodium Phos 250 MG Tablet PO SCH ×4 (09:05→20:29)
[2018-05-18] MEDS: Amiodarone 200 MG Tablet PO SCH (09:06)
[2018-05-18] MEDS: Ferrous Sulfate 325 MG Tablet PO SCH ×3 (09:06→17:36)
[2018-05-18] MEDS: Magnesium Oxide 400 MG Tablet PO SCH ×4 (09:06→20:30)
[2018-05-18] MEDS: Collagenase Oint 30 GM Tube TOPICAL SCH (09:10)
[2018-05-18] MEDS: Gentamicin 0.1% Cream 15 GM Cream TOPICAL SCH ×2 (09:10→20:30)
[2018-05-18 10:26] LABS: Baso # (Auto) 0.3 th/mm3 (0.0-0.2); Baso % (Auto) 3.1 % (0.0-2.0); Eos # (Auto) 0.9 th/mm3 (0.0-0.4); Hematocrit 29.5 % (39.0-51.0); Hemoglobin 9.6 gm/dL (13.0-17.0); Lymph # (Auto) 1.2 th/mm3 (1.0-4.8); Lymph % (Auto) 11.8 % (9.0-44.0); Mean Corpuscular HGB Conc 32.5 % (32.0-36.0); Mean Corpuscular Volume 92.2 fL (80.0-100.0); Mean Platelet Volume 7.3 fL (7.0-11.0); Mono # (Auto) 0.9 th/mm3 (0.0-0.9); Mono % (Auto) 8.6 % (0.0-8.0); Neut % (Auto) 67.5 % (16.0-70.0); Platelet Count 328 th/mm3 (150-450); Red Cell Distribution Width 21.7 % (11.6-17.2); White Blood Count 10.4 th/mm3 (4.0-11.0)
[2018-05-18 11:01] LABS: Anion Gap 8 meq/L (5-15); Blood Urea Nitrogen 12 mg/dL (7-18); Calcium 7.8 mg/dL (8.5-10.1); Carbon Dioxide 20.8 meq/L (21.0-32.0); Chloride 99 meq/L (98-107); Glomerular Filtration Rate Greater Than 89 mL/min (>89); Glucose,Random 136 mg/dL (74-106); Potassium 5.1 meq/L (3.5-5.1); Sodium 128 meq/L (136-145)
--- NOTE | 2018-05-18 12:55 | P.PNFP ---
Subjective Interval history: No acute events overnight. He reports continued pain in his right hip and right foot. He denies fever, chills, nausea, vomiting, chest pain, shortness of breath, lightheadedness, dizziness. He has no new complaints today. <ElyGarciaRene J - 05/18/18 12:54> Results - Labs Result diagrams: 05/18/18 09:30 05/19/18 06:05 <Pedro Shay - 05/19/18 15:02> Abnormal lab results 05/18/18 05/18/18 05/19/18 Range/Units 17:36 19:18 06:05 Creatinine 0.55 L (0.60-1.30) mg/dL POC Glucose 135 H 149 H (68-110) mg/dl 05/19/18 05/19/18 Range/Units 07:44 12:11 Creatinine (0.60-1.30) mg/dL POC Glucose 141 H 156 H (68-110) mg/dl BMP 05/19/18 06:05 Creatinine 0.55 L <Pedro Shay - 05/19/18 15:02> Abnormal lab results 05/17/18 05/17/18 05/17/18 Range/Units 13:07 17:41 19:34 RBC (4.50-5.90) mil/mm3 Hgb (13.0-17.0) gm/dL Hct (39.0-51.0) % RDW (11.6-17.2) % Garland % (Auto) (0.0-8.0) % Eos % (Auto) (0.0-4.0) % Baso % (Auto) (0.0-2.0) % Eos # (Auto) (0.0-0.4) th/mm3 Baso # (Auto) (0.0-0.2) th/mm3 Keratocytes (None) Sodium (136-145) meq/L Carbon Dioxide (21.0-32.0) meq/L Creatinine (0.60-1.30) mg/dL POC Glucose 143 H 181 H 186 H (68-110) mg/dl Random Glucose (74-106) mg/dL Calcium (8.5-10.1) mg/dL 05/18/18 05/18/18 05/18/18 Range/Units 09:04 09:30 09:30 RBC 3.20 L (4.50-5.90) mil/mm3 Hgb 9.6 L (13.0-17.0) gm/dL Hct 29.5 L (39.0-51.0) % RDW 21.7 H (11.6-17.2) % Garland % (Auto) 8.6 H (0.0-8.0) % Eos % (Auto) 9.0 H (0.0-4.0) % Baso % (Auto) 3.1 H (0.0-2.0) % Eos # (Auto) 0.9 H (0.0-0.4) th/mm3 Baso # (Auto) 0.3 H (0.0-0.2) th/mm3 Keratocytes Occ H (None) Sodium 128 L (136-145) meq/L Carbon Dioxide 20.8 L (21.0-32.0) meq/L Creatinine 0.53 L (0.60-1.30) mg/dL POC Glucose 168 H (68-110) mg/dl Random Glucose 136 H (74-106) mg/dL Calcium 7.8 L (8.5-10.1) mg/dL Short CBC 05/18/18 Range/Units 09:30 WBC 10.4 (4.0-11.0) th/mm3 Hgb 9.6 L (13.0-17.0) gm/dL Hct 29.5 L (39.0-51.0) % Plt Count 328 (150-450) th/mm3 BMP 05/18/18 09:30 Sodium 128 L Potassium 5.1 Chloride 99 Carbon Dioxide 20.8 L BUN 12 Creatinine 0.53 L Calcium 7.8 L <Rene Graves - 05/18/18 12:54> Physical Exam Vital signs: Vital Signs 05/18/18 16:00 05/18/18 20:00 05/19/18 00:00 Temperature 97.8 F 97.9 F 98.4 F Pulse Rate 60 60 64 Respiratory Rate 20 17 18 Blood Pressure 127/61 127/71 101/52 L Pulse Oximetry 97 95 96 05/19/18 04:00 05/19/18 08:00 05/19/18 09:47 Temperature 97.7 F Pulse Rate 60 59 L Respiratory Rate 17 10 L Blood Pressure 122/75 Pulse Oximetry 97 05/19/18 13:27 Temperature Pulse Rate Respiratory Rate 20 Blood Pressure Pulse Oximetry Intake & Output 05/18/18 05/19/18 05/19/18 18:59 06:59 18:59 Intake Total 842.5 / 842.5 440 / 440 Output Total 1300 / 1300 Balance 842.5 / 842.5 -860 / -860 Intake: IV 362.5 / 362.5 200 / 200 Zerbaxa Inj 1,500 MG In NS Inj 100 / 100 200 / 200 100 ML @ 100 mls/hr IV.SIG Q8H ACE Rx#:[id number] Vancomycin Inj 1,250 MG In NS 262.5 / 262.5 Inj 250 ML @ 250 mls/hr IV.SIG Q24H ACE Rx#:[id number] Oral 480 / 480 240 / 240 Output: Urine 1300 / 1300 Other: # Voids 1 Date of Last Bowel Movement 05/19/18 05/19/18 # Bowel Movements 1 <Pedro Shay - 05/19/18 15:02> Vital Signs 05/17/18 16:00 05/17/18 19:40 05/17/18 20:00 Temperature 97.9 F 98.6 F Pulse Rate 65 60 58 L Respiratory Rate 20 16 Blood Pressure 142/72 H 120/58 L Pulse Oximetry 98 93 L 05/18/18 00:00 05/18/18 04:00 05/18/18 08:00 Temperature 98.6 F 97.9 F 97.9 F Pulse Rate 56 L 56 L 59 L Respiratory Rate 16 16 20 Blood Pressure 128/61 128/57 L 135/60 Pulse Oximetry 98 98 95 Intake & Output 05/17/18 05/18/18 05/18/18 18:59 06:59 18:59 Intake Total 942.5 / 942.5 200 / 200 Balance 942.5 / 942.5 200 / 200 Weight 73.3 kg Intake: IV 462.5 / 462.5 200 / 200 Zerbaxa Inj 1,500 MG In NS Inj 200 / 200 200 / 200 100 ML @ 100 mls/hr IV.SIG Q8H ACE Rx#:[id number] Vancomycin Inj 1,250 MG In NS 262.5 / 262.5 Inj 250 ML @ 250 mls/hr IV.SIG Q24H ACE Rx#:[id number] Oral 480 / 480 Other: # Voids 1 Date of Last Bowel Movement 05/13/18 # Bowel Movements 0 <Rene Graves - 05/18/18 12:54> Narrative: General: Cachectic elderly male, alert, and in no acute distress. Oriented to person and place. HEENT: Atraumatic, non-icteric sclera and no conjunctival injection, moist mucous membranes Neck: Supple, non-tender without masses or lymphadenopathy, trachea midline, no JVD Cardiac: Regular rate and rhythm Pulmonary: Non-labored breathing. Lungs clear to auscultation bilaterally with good air movement Abdomen: Normal bowel sounds, soft and non-tender without rebound or guarding Extremities: No edema, right lower extremity is cool to the touch. He has poor sensation. Atrophic muscular changes in both legs bilaterally. Patient able to move toes bilaterally. Increasingly dark purple discoloration of left second toe up to the MTP joint, and distal left first toe. Dusky appearance of 3rd toe extending beyond PIP joint. There is significant purulence of the wound on the right heel. <Rene Graves 05/18/18 12:54> - Urinary Catheter Management Condom Cath placed during this visit: no <Pedro Shay - 05/19/18 15:02> no <Rene Graves - 05/18/18 13:31> Reason for continuing: Not indwelling catheter <Rene Graves 12:54> Indwelling Urethral Catheter Cath placed during this visit: no <Pedro Shay - 05/19/18 15:02> yes, but has since been removed by the nurse <Rene Graves 05/18/18 13:31> Reason for continuing: Not indwelling catheter <Rene Graves 12:54> Insertion date: 04/11/18 <Rene Graves 05/18/18 12:54> Insertion time: 21:08 <Rene Graves 05/18/18 12:54> Removal date: 04/12/18 <Rene Graves Jamey - 05/18/18 12:54> Removal time: 11:35 <Rene Graves - 05/18/18 12:54> Straight Cath placed during this visit: no <Pedro Shay - 05/19/18 15:02> yes <Rene Graves Jamey - 05/18/18 13:31> Reason for continuing: Other continuation reason <Rene Graves - 05/18 12:54> Insertion date: 04/11/18 <Rene Graves Jamey - 05/18/18 12:54> Insertion time: 21:08 <Rene Graves - 05/18/18 12:54> Assessment and Plan - Assessment (1) Osteomyelitis of ankle Code(s): M86.9 - Osteomyelitis, unspecified Status: Acute (2) Ischemia of foot Code(s): I99.8 - Other disorder of circulatory system Status: Acute (3) Anemia Code(s): D64.9 - Anemia, unspecified Status: Acute (4) Infection associated with internal hip prosthesis Code(s): T84.59XA - Infection and inflammatory reaction due to other internal joint prosthesis, initial encounter; Z96.649 - Presence of unspecified artificial hip joint Status: Acute (5) Chronic wound of extremity Status: Chronic (6) MRSA (methicillin resistant staph aureus) culture positive Code(s): Z22.322 - Carrier or suspected carrier of Methicillin resistant Staphylococcus aureus Status: Acute (7) PAD (peripheral artery disease) Code(s): I73.9 - Peripheral vascular disease, unspecified Status: Chronic (8) Bandemia Code(s): D72.825 - Bandemia Status: Resolved (9) Hydronephrosis Code(s): N13.30 - Unspecified hydronephrosis Status: Resolved (10) HTN (hypertension) Code(s): I10 - Essential (primary) hypertension Status: Acute (11) Diabetes Code(s): E11.9 - Type 2 diabetes mellitus without complications Status: Acute (12) Malnutrition Code(s): E46 - Unspecified protein-calorie malnutrition Status: Acute (13) Anisocoria Code(s): H57.02 - Anisocoria Status: Acute (14) Suicidal ideation Code(s): R45.851 - Suicidal ideations Status: Acute (15) Nutrition, metabolism, and development symptoms Code(s): R63.8 - Other symptoms and signs concerning food and fluid intake Status: Acute <Pedro Shay - 05/19/18 15:02> (1) Osteomyelitis of ankle Code(s): M86.9 - Osteomyelitis, unspecified Status: Acute Plan: Osteomyelitis of right ankle, culture positive for MRSA of right thigh wound. Wound culture of right ankle shows Pseudomonas and multidrug resistant Proteus as well as group D enterococcus. -Bcx NGTD -Podiatry had been consulted, recommended below-knee amputation, patient refused , podiatry history below -Podiatry was reconsulted today, appreciate recommendations about potential debridement -Wound on the right ankle still has significant purulent Vascular surgery consulted * s/p [employer]PERATOR of popliteal stenosis on 04/24 * Anterior tibial, posterior tibia and peritoneal artery occluded Lower extremity pulses appreciated Via Doppler. Right popliteal pulse appreciated on exam -Balloon angioplasty and atherectomy 05/15 ID consulted, appreciate recs * Continue vancomycin--until Jun 07, 6 weeks after hardware removal for the R hip * Continue Zerbaxa--for the heel ulcer and osteo due to resistance of organisms Wound care consulted, appreciate recs * See note from 04/25 * follow recommendations * Pain management with [facility] scheduled, gabapentin, morphine for breakthrough pain Podiatry history; * plan for patient to have calcanectomy on 04/26 however due to patient's inability to recall presurgery discussion when seen by podiatry the morning of 04/26 Dr. Urena will no longer be performing calcanectomy procedure. * Recommends: betadine wet to dry daily and if foot/heel becomes acutely infected rec as patient is unable to care for himself or able to mentally process limb salvage procedure options. In addition, the likelihood of failure was already high due to the low vascularity to the right lower limb. * Podiatry has signed off. * Discussed option of below-knee amputation of right lower extremity and Patient still not interested (2) Ischemia of foot Code(s): I99.8 - Other disorder of circulatory system Status: Acute Plan: Patient with developing ischemia of right 1st, 2nd toe, and 3rd. Vascular surgery reconsulted. -Balloon angioplasty and arthrectomy 05/15 -Patient continues to refuse BKA -Palliative care attempting to contact medical proxy to further determine goals of care (3) Anemia Code(s): D64.9 - Anemia, unspecified Status: Acute Plan: On admission found to have hemoglobin of 6.6, status post 2 units RBCs transfused. Had tarry stools, endoscopy and colonoscopy benign other than small ulcer in rectum. Hemoglobin stable, will continue to monitor (4) Infection associated with internal hip prosthesis Code(s): T84.59XA - Infection and inflammatory reaction due to other internal joint prosthesis, initial encounter; Z96.649 - Presence of unspecified artificial hip joint Status: Acute Plan: Found to have right hip prosthesis infection. Irrigation, debridement, hardware removal and placement of antibiotic beads (04/27). -Orthopedics consulted and they recommended 2-week follow-up -Antibiotics per ID for chronic osteomyelitis (5) Chronic wound of extremity Status: Chronic Plan: Patient currently follows up with wound care as an outpatient Wound management: Right hip wound, super absorbant dressing daily Skin tear lower left extremity, Santyl covered and dry dressing daily Right heel wound, apply gentamicin cream twice daily, see above plan for associated osteomyelitis Wound care consulted, appreciate recommendations * Cleanse wound to R Achilles heel with normal saline only and pat dry. Apply gentamicin mixed with Santyl 50/ 50 and apply to wound bed * Cover with ABD pad, and secure with rolled gauze and tape. Change dressing daily, until seen by podiatry. * Cleanse wound to R hip see updated note from 04/25 and follow ortho rec for dressing * Cleanse wound to L posterior lower leg with normal saline and pat dry. Apply optifoam gentle 4x4 dressing change dressing every 3 days or PRN if saturated or dislodged. * Sacral wound: -Please cleanse sacral area gently with Remedy barrier wipes and pat dry. Apply Cavilon skin barrier film spray to sacral area BID and PRN and leave open to air. -Turn and reposition patient every 2 hours from L to R side limiting time spent on back to P.T. and meals -Patient placed on low airloss bed/ mattress -Will try to get in contact with wound care for re-evaluation of sacral wound , stable on exam -Wound care was reconsulted today because we would like the wound care physician to examine his wound to the right heel (6) MRSA (methicillin resistant staph aureus) culture positive Code(s): Z22.322 - Carrier or suspected carrier of Methicillin resistant Staphylococcus aureus Status: Acute Plan: This patient suffers from chronic nonhealing wounds likely secondary to peripheral arterial disease and DM. Patient had wound from right thigh cultured which ultimately grew MRSA. -Monitor for fevers and signs of systemic illness -Antibiotic therapy as above (7) PAD (peripheral artery disease) Code(s): I73.9 - Peripheral vascular disease, unspecified Status: Chronic Plan: s/p recent right LE arterectomy. s/p vascular procedure as above on 04/24 (8) Bandemia Code(s): D72.825 - Bandemia Status: Resolved Plan: Resolved, likely due to osteomyelitis. See above plan. (9) Hydronephrosis Code(s): N13.30 - Unspecified hydronephrosis Status: Resolved Plan: Left hydronephrosis and hydroureter without obstruction on CT (04/11). Currently voiding well, no CVA tenderness. UA (-)04/26. Not noted on CT on . - Continue to monitor I's and O's. (10) HTN (hypertension) Code(s): I10 - Essential (primary) hypertension Status: Acute Plan: Continue Cardizem and amiodarone (11) Diabetes Code(s): E11.9 - Type 2 diabetes mellitus without complications Status: Acute Plan: Hx of DM -Held home glipizide, Januvia -Accu-Cheks -Low-dose sliding scale -Hypoglycemia protocol in place (12) Malnutrition Code(s): E46 - Unspecified protein-calorie malnutrition Status: Acute Plan: This patient appears thin and possibly malnourished. Patient has significant muscle atrophy in arms and legs that are partially consistent with age and lack of activity. 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 Patient unsure of specific cause or diagnoses. Can follow up with Ophthalmology outpatient as needed (14) Suicidal ideation Code(s): R45.851 - Suicidal ideations Status: Acute Plan: Nurse reported that patient expressed fluctuating suicidal ideation and refusal of taking his medications om 05/11. His mood improved later on in the morning. Denies SI/HI -Citalopram 10 mg daily -Continue to assess status (15) Nutrition, metabolism, and development symptoms Code(s): R63.8 - Other symptoms and signs concerning food and fluid intake Status: Acute Plan: Fluids: per PO Diet: Diabetic supplements with protein shake Electrolytes: monitor and replete as needed DVT prophylaxis: Contraindicated due to upper GI bleed Disposition: SNF not taking patient at this time due to cost of Zerbaxa <Rene Graves - 05/18/18 13:23> - Attending Attestation See the residents documentation for details. I saw and evaluated the patient regarding the ford portions of this evaluation and agree with the residents findings and plans as written. Parts of this note were created using [employer] voice recognition software program. While efforts were made to correct any mistakes made by this software, some mistakes, errors, and omissions may remain in the final note that were not caught when the note was originally created. Plan of care was discussed and agreed upon with the patient as specifically documented in the above note. An opportunity to ask questions with explanation was provided. Patient voiced understanding on all information reviewed and discussed. <Pedro Shay - 05/19/18 15:02> <Rene Graves J - Last Filed: 05/18/18 13:23> (1) Osteomyelitis of ankle Qualifiers: Osteomyelitis type: other chronic Laterality: right Qualified Code(s): M86.671 - Other chronic osteomyelitis, right ankle and foot (9) Hydronephrosis Qualifiers: Hydronephrosis type: unspecified Qualified Code(s): N13.30 - Unspecified hydronephrosis <Pedro Shay - Last Filed: 05/19/18 15:02> (1) Osteomyelitis of ankle Qualifiers: Osteomyelitis type: other chronic Laterality: right Qualified Code(s): M86.671 - Other chronic osteomyelitis, right ankle and foot (9) Hydronephrosis Qualifiers: Hydronephrosis type: unspecified Qualified Code(s): N13.30 - Unspecified hydronephrosis <Rene Graves - Last Filed: 05/18/18 13:23> (1) Osteomyelitis of ankle Qualifiers: Osteomyelitis type: other chronic Laterality: right Qualified Code(s): M86.671 - Other chronic osteomyelitis, right ankle and foot (9) Hydronephrosis Qualifiers: Hydronephrosis type: unspecified Qualified Code(s): N13.30 - Unspecified hydronephrosis <Pedro Shay - Last Filed: 05/19/18 15:02> (1) Osteomyelitis of ankle Qualifiers: Osteomyelitis type: other chronic Laterality: right Qualified Code(s): M86.671 - Other chronic osteomyelitis, right ankle and foot (9) Hydronephrosis Qualifiers: Hydronephrosis type: unspecified Qualified Code(s): N13.30 - Unspecified hydronephrosis
[2018-05-18] MEDS: Vancomycin Inj 1,250 MG in Sodium Chlor 0.9% Inj 250 ML IV.SIG SCH (14:35)
[2018-05-19] MEDS: Levothyroxine 125 MCG Tablet PO SCH (05:42)
[2018-05-19] MEDS: CEFTOLOZANE IV.SIG SCH ×3 (05:43→21:52)
[2018-05-19] MEDS: TAZOBACTAM IV.SIG SCH ×3 (05:43→21:52)
[2018-05-19] MEDS: SODIUM CHLOR 0.9% IV.SIG SCH ×3 (05:43→21:52)
[2018-05-19 08:11] LABS: Glomerular Filtration Rate Greater Than 89 mL/min (>89)
[2018-05-19] MEDS: Insulin NovoLOG Aspart Correctional Sugar Inj SQ SCH ×4 (09:25→20:11)
[2018-05-19] MEDS: Amiodarone 200 MG Tablet PO SCH (09:27)
[2018-05-19] MEDS: Ascorbic Acid 500 MG Tablet PO SCH ×2 (09:27→20:10)
[2018-05-19] MEDS: Ferrous Sulfate 325 MG Tablet PO SCH ×3 (09:27→17:11)
[2018-05-19] MEDS: Sodium Chloride 1 GM Tablet PO SCH ×3 (09:27→17:12)
[2018-05-19] MEDS: Gabapentin 300 MG Capsule PO SCH ×3 (09:28→17:12)
[2018-05-19] MEDS: Citalopram 20 MG Tablet PO SCH (09:28)
[2018-05-19] MEDS: Docusate Sodium 100 MG Capsule PO SCH ×2 (09:28→20:10)
[2018-05-19] MEDS: Magnesium Oxide 400 MG Tablet PO SCH ×4 (09:28→20:11)
[2018-05-19] MEDS: Potassium Phos/Sodium Phos 250 MG Tablet PO SCH ×4 (09:29→20:10)
[2018-05-19] MEDS: Gentamicin 0.1% Cream 15 GM Cream TOPICAL SCH ×2 (09:31→20:11)
[2018-05-19] MEDS: Collagenase Oint 30 GM Tube TOPICAL SCH (09:32)
[2018-05-19] MEDS: Polyethylene Glycol 3350 17 GM Packet PO SCH (09:34)
--- NOTE | 2018-05-19 11:56 | P.PNFP ---
Subjective Interval history: Patient seen and examined today. Reports continued pain in his right leg. No significant pain in his foot. Denies nausea, vomiting, fever , chills, abdominal pain, chest pain, shortness of breath, lightheadedness, dizziness. No acute events overnight. No other complaints today. <Saji Richard - 05/19/18 11:55> Results - Labs Result diagrams: 05/18/18 09:30 05/19/18 06:05 <Pedro Shay - 05/19/18 15:13> Abnormal lab results 05/18/18 05/18/18 05/19/18 Range/Units 17:36 19:18 06:05 Creatinine 0.55 L (0.60-1.30) mg/dL POC Glucose 135 H 149 H (68-110) mg/dl 05/19/18 05/19/18 Range/Units 07:44 12:11 Creatinine (0.60-1.30) mg/dL POC Glucose 141 H 156 H (68-110) mg/dl [facility] 05/19/18 06:05 Creatinine 0.55 L <Pedro Shay - 05/19/18 15:13> Abnormal lab results 05/18/18 05/18/18 05/18/18 Range/Units 13:12 17:36 19:18 Creatinine (0.60-1.30) mg/dL POC Glucose 142 H 135 H 149 H (68-110) mg/dl 05/19/18 05/19/18 Range/Units 06:05 07:44 Creatinine 0.55 L (0.60-1.30) mg/dL POC Glucose 141 H (68-110) mg/dl [facility] 05/19/18 06:05 Creatinine 0.55 L <Saji Richard - 05/19/18 11:55> Physical Exam Vital signs: Vital Signs 05/18/18 16:00 05/18/18 20:00 05/19/18 00:00 Temperature 97.8 F 97.9 F 98.4 F Pulse Rate 60 60 64 Respiratory Rate 20 17 18 Blood Pressure 127/61 127/71 101/52 L Pulse Oximetry 97 95 96 05/19/18 04:00 05/19/18 08:00 05/19/18 09:47 Temperature 97.7 F Pulse Rate 60 59 L Respiratory Rate 17 10 L Blood Pressure 122/75 Pulse Oximetry 97 05/19/18 13:27 Temperature Pulse Rate Respiratory Rate 20 Blood Pressure Pulse Oximetry Intake & Output 05/18/18 05/19/18 05/19/18 18:59 06:59 18:59 Intake Total 842.5 / 842.5 440 / 440 Output Total 1300 / 1300 Balance 842.5 / 842.5 -860 / -860 Intake: IV 362.5 / 362.5 200 / 200 Zerbaxa Inj 1,500 MG In NS Inj 100 / 100 200 / 200 100 ML @ 100 mls/hr IV.SIG Q8H [facility] Rx#:[id number] Vancomycin Inj 1,250 MG In NS 262.5 / 262.5 Inj 250 ML @ 250 mls/hr IV.SIG Q24H [facility] Rx#:[id number] Oral 480 / 480 240 / 240 Output: Urine 1300 / 1300 Other: # Voids 1 Date of Last Bowel Movement 05/19/18 05/19/18 # Bowel Movements 1 <Pedro Shay - 05/19/18 15:13> Vital Signs 05/18/18 12:00 05/18/18 13:14 05/18/18 16:00 Temperature 98.9 F 97.8 F Pulse Rate 61 60 Respiratory Rate 20 20 Blood Pressure 133/65 127/61 Pulse Oximetry 93 L 98 97 05/18/18 20:00 05/19/18 00:00 05/19/18 04:00 Temperature 97.9 F 98.4 F 97.7 F Pulse Rate 60 64 60 Respiratory Rate 17 18 17 Blood Pressure 127/71 101/52 L 122/75 Pulse Oximetry 95 96 97 05/19/18 08:00 05/19/18 09:47 Temperature Pulse Rate 59 L Respiratory Rate 10 L Blood Pressure Pulse Oximetry Intake & Output 05/18/18 05/19/18 05/19/18 18:59 06:59 18:59 Intake Total 842.5 / 842.5 440 / 440 Output Total 1300 / 1300 Balance 842.5 / 842.5 -860 / -860 Intake: IV 362.5 / 362.5 200 / 200 Zerbaxa Inj 1,500 MG In NS Inj 100 / 100 200 / 200 100 ML @ 100 mls/hr IV.SIG Q8H [facility] Rx#:[id number] Vancomycin Inj 1,250 MG In NS 262.5 / 262.5 Inj 250 ML @ 250 mls/hr IV.SIG Q24H ACE Rx#:[id number] Oral 480 / 480 240 / 240 Output: Urine 1300 / 1300 Other: # Voids 1 Date of Last Bowel Movement 05/19/18 05/19/18 # Bowel Movements 1 <Saji Richard - 05/19/18 11:55> Narrative: General: Cachectic elderly male, alert, and in no acute distress. Oriented to person and place. HEENT: Atraumatic, non-icteric sclera and no conjunctival injection, moist mucous membranes Neck: Supple, non-tender without masses or lymphadenopathy, trachea midline, no JVD Cardiac: Regular rate and rhythm Pulmonary: Non-labored breathing. Lungs clear to auscultation bilaterally with good air movement Abdomen: Normal bowel sounds, soft and non-tender without rebound or guarding Extremities: No edema, right lower extremity is cool to the touch. He has poor sensation. Atrophic muscular changes in both legs bilaterally. Patient able to move toes bilaterally. Increasingly dark purple discoloration of left second toe up to the MTP joint, and distal left first toe. Dusky appearance of 3rd toe extending beyond PIP joint. There is significant purulence of the wound on the right heel. <Saji Richard 05/19/18 11:55> - Urinary Catheter Management Condom Cath placed during this visit: no <Pedro Shay - 05/19/18 15:12> no <Saji Richard 05/19/18 11:55> Reason for continuing: Not indwelling catheter <Saji Richard 05/19/18 11 :55> Indwelling Urethral Catheter Cath placed during this visit: no <Pedro Shay - 05/19/18 15:12> yes, but has since been removed by the nurse <Saji Richard 05/19/18 11:55> Reason for continuing: Not indwelling catheter <Saji Richard 05/19/18 11 :55> Insertion date: 04/11/18 <Saji Richard 05/19/18 11:55> Insertion time: 21:08 <Saji Richard 05/19/18 11:55> Removal date: 04/12/18 <Saji Richard - 05/19/18 11:55> Removal time: 11:35 <Saji Richard - 05/19/18 11:55> Straight Cath placed during this visit: no <Pedro Shay - 05/19/18 15:12> yes <Saji Richard - 05/19/18 11:55> Reason for continuing: Other continuation reason <Saji Richard - 05/19/18 11:55> Insertion date: 04/11/18 <Saji Richard - 05/19/18 11:55> Insertion time: 21:08 <Saji Richard - 05/19/18 11:55> Assessment and Plan - Assessment (1) Osteomyelitis of ankle Code(s): M86.9 - Osteomyelitis, unspecified Status: Acute (2) Ischemia of foot Code(s): I99.8 - Other disorder of circulatory system Status: Acute (3) Anemia Code(s): D64.9 - Anemia, unspecified Status: Acute (4) Infection associated with internal hip prosthesis Code(s): T84.59XA - Infection and inflammatory reaction due to other internal joint prosthesis, initial encounter; Z96.649 - Presence of unspecified artificial hip joint Status: Acute (5) Chronic wound of extremity Status: Chronic (6) MRSA (methicillin resistant staph aureus) culture positive Code(s): Z22.322 - Carrier or suspected carrier of Methicillin resistant Staphylococcus aureus Status: Acute (7) PAD (peripheral artery disease) Code(s): I73.9 - Peripheral vascular disease, unspecified Status: Chronic (8) Bandemia Code(s): D72.825 - Bandemia Status: Resolved (9) Hydronephrosis Code(s): N13.30 - Unspecified hydronephrosis Status: Resolved (10) HTN (hypertension) Code(s): I10 - Essential (primary) hypertension Status: Acute (11) Diabetes Code(s): E11.9 - Type 2 diabetes mellitus without complications Status: Acute (12) Malnutrition Code(s): E46 - Unspecified protein-calorie malnutrition Status: Acute (13) Anisocoria Code(s): H57.02 - Anisocoria Status: Acute (14) Suicidal ideation Code(s): R45.851 - Suicidal ideations Status: Acute (15) Nutrition, metabolism, and development symptoms Code(s): R63.8 - Other symptoms and signs concerning food and fluid intake Status: Acute <Pedro Shay - 05/19/18 15:13> (1) Osteomyelitis of ankle Code(s): M86.9 - Osteomyelitis, unspecified Status: Acute Plan: Osteomyelitis of right ankle, culture positive for MRSA of right thigh wound. Wound culture of right ankle shows Pseudomonas and multidrug resistant Proteus as well as group D enterococcus. -Bcx NGTD -Podiatry had been consulted, recommended below-knee amputation, patient refused , podiatry history below -Podiatry was reconsulted today, appreciate recommendations about potential debridement -Wound on the right ankle still has significant purulent Vascular surgery consulted * s/p CIGARETTE ROLLER of popliteal stenosis on 04/24 * Anterior tibial, posterior tibia and peritoneal artery occluded Lower extremity pulses appreciated Via Doppler. Right popliteal pulse appreciated on exam -Balloon angioplasty and atherectomy 05/15 ID consulted, appreciate recs * Continue vancomycin--until Jun 07, 6 weeks after hardware removal for the R hip * Continue Zerbaxa--for the heel ulcer and osteo due to resistance of organisms Wound care consulted, appreciate recs * See note from 04/25 * follow recommendations * Pain management with [place] scheduled, gabapentin, morphine for breakthrough pain Podiatry history; * plan for patient to have calcanectomy on 04/26 however due to patient's inability to recall presurgery discussion when seen by podiatry the morning of 04/26 Dr. Urena will no longer be performing calcanectomy procedure. * Recommends: betadine wet to dry daily and if foot/heel becomes acutely infected rec as patient is unable to care for himself or able to mentally process limb salvage procedure options. In addition, the likelihood of failure was already high due to the low vascularity to the right lower limb. * Podiatry has signed off. * Discussed option of below-knee amputation of right lower extremity and Patient still not interested (2) Ischemia of foot Code(s): I99.8 - Other disorder of circulatory system Status: Acute Plan: Patient with developing ischemia of right 1st, 2nd toe, and 3rd. Vascular surgery reconsulted. -Balloon angioplasty and arthrectomy 05/15 -Patient continues to refuse BKA -Palliative care attempting to contact medical proxy to further determine goals of care (3) Anemia Code(s): D64.9 - Anemia, unspecified Status: Acute Plan: On admission found to have hemoglobin of 6.6, status post 2 units RBCs transfused. Had tarry stools, endoscopy and colonoscopy benign other than small ulcer in rectum. Hemoglobin stable, will continue to monitor (4) Infection associated with internal hip prosthesis Code(s): T84.59XA - Infection and inflammatory reaction due to other internal joint prosthesis, initial encounter; Z96.649 - Presence of unspecified artificial hip joint Status: Acute Plan: Found to have right hip prosthesis infection. Irrigation, debridement, hardware removal and placement of antibiotic beads (04/27). -Orthopedics consulted and they recommended 2-week follow-up -Antibiotics per ID for chronic osteomyelitis (5) Chronic wound of extremity Status: Chronic Plan: Patient currently follows up with wound care as an outpatient Wound management: Right hip wound, super absorbant dressing daily Skin tear lower left extremity, Santyl covered and dry dressing daily Right heel wound, apply gentamicin cream twice daily, see above plan for associated osteomyelitis Wound care consulted, appreciate recommendations * Cleanse wound to R Achilles heel with normal saline only and pat dry. Apply gentamicin mixed with Santyl 50/ 50 and apply to wound bed * Cover with ABD pad, and secure with rolled gauze and tape. Change dressing daily, until seen by podiatry. * Cleanse wound to R hip see updated note from 04/25 and follow ortho rec for dressing * Cleanse wound to L posterior lower leg with normal saline and pat dry. Apply optifoam gentle 4x4 dressing change dressing every 3 days or PRN if saturated or dislodged. * Sacral wound: -Please cleanse sacral area gently with Remedy barrier wipes and pat dry. Apply Cavilon skin barrier film spray to sacral area BID and PRN and leave open to air. -Turn and reposition patient every 2 hours from L to R side limiting time spent on back to P.T. and meals -Patient placed on low airloss bed/ mattress -Will try to get in contact with wound care for re-evaluation of sacral wound , stable on exam -Wound care was reconsulted today because we would like the wound care physician to examine his wound to the right heel (6) MRSA (methicillin resistant staph aureus) culture positive Code(s): Z22.322 - Carrier or suspected carrier of Methicillin resistant Staphylococcus aureus Status: Acute Plan: This patient suffers from chronic nonhealing wounds likely secondary to peripheral arterial disease and DM. Patient had wound from right thigh cultured which ultimately grew MRSA. -Monitor for fevers and signs of systemic illness -Antibiotic therapy as above (7) PAD (peripheral artery disease) Code(s): I73.9 - Peripheral vascular disease, unspecified Status: Chronic Plan: s/p recent right LE arterectomy. s/p vascular procedure as above on 04/24 (8) Bandemia Code(s): D72.825 - Bandemia Status: Resolved Plan: Resolved, likely due to osteomyelitis. See above plan. (9) Hydronephrosis Code(s): N13.30 - Unspecified hydronephrosis Status: Resolved Plan: Left hydronephrosis and hydroureter without obstruction on CT (04/11). Currently voiding well, no CVA tenderness. UA (-)04/26. Not noted on CT on . - Continue to monitor I's and O's. (10) HTN (hypertension) Code(s): I10 - Essential (primary) hypertension Status: Acute Plan: Continue Cardizem and amiodarone (11) Diabetes Code(s): E11.9 - Type 2 diabetes mellitus without complications Status: Acute Plan: Hx of DM -Held home glipizide, Januvia -Accu-Cheks -Low-dose sliding scale -Hypoglycemia protocol in place (12) Malnutrition Code(s): E46 - Unspecified protein-calorie malnutrition Status: Acute Plan: This patient appears thin and possibly malnourished. Patient has significant muscle atrophy in arms and legs that are partially consistent with age and lack of activity. 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 Patient unsure of specific cause or diagnoses. Can follow up with Ophthalmology outpatient as needed (14) Suicidal ideation Code(s): R45.851 - Suicidal ideations Status: Acute Plan: Nurse reported that patient expressed fluctuating suicidal ideation and refusal of taking his medications om 05/11. His mood improved later on in the morning. Denies SI/HI -Citalopram 10 mg daily -Continue to assess status (15) Nutrition, metabolism, and development symptoms Code(s): R63.8 - Other symptoms and signs concerning food and fluid intake Status: Acute Plan: Fluids: per PO Diet: Diabetic supplements with protein shake Electrolytes: monitor and replete as needed DVT prophylaxis: Contraindicated due to upper GI bleed Disposition: SNF not taking patient at this time due to cost of Zerbaxa <Saji Richard - 05/19/18 11:54> - Attending Attestation See the residents documentation for details. I saw and evaluated the patient regarding the [place]d portions of this evaluation and agree with the residents findings and plans as written. Parts of this note were created using [email or web address] voice recognition software program. While efforts were made to correct any mistakes made by this software, some mistakes, errors, and omissions may remain in the final note that were not caught when the note was originally created. Plan of care was discussed and agreed upon with the patient as specifically documented in the above note. An opportunity to ask questions with explanation was provided. Patient voiced understanding on all information reviewed and discussed. <Pedro Shay - 05/19/18 15:13> <Saji Richard - Last Filed: 05/19/18 11:54> (1) Osteomyelitis of ankle Qualifiers: Osteomyelitis type: other chronic Laterality: right Qualified Code(s): M86.671 - Other chronic osteomyelitis, right ankle and foot (9) Hydronephrosis Qualifiers: Hydronephrosis type: unspecified Qualified Code(s): N13.30 - Unspecified hydronephrosis <Pedro Shay - Last Filed: 05/19/18 15:13> (1) Osteomyelitis of ankle Qualifiers: Osteomyelitis type: other chronic Laterality: right Qualified Code(s): M86.671 - Other chronic osteomyelitis, right ankle and foot (9) Hydronephrosis Qualifiers: Hydronephrosis type: unspecified Qualified Code(s): N13.30 - Unspecified hydronephrosis <Saji Richard - Last Filed: 05/19/18 11:54> (1) Osteomyelitis of ankle Qualifiers: Osteomyelitis type: other chronic Laterality: right Qualified Code(s): M86.671 - Other chronic osteomyelitis, right ankle and foot (9) Hydronephrosis Qualifiers: Hydronephrosis type: unspecified Qualified Code(s): N13.30 - Unspecified hydronephrosis <Pedro Shay - Last Filed: 05/19/18 15:13> (1) Osteomyelitis of ankle Qualifiers: Osteomyelitis type: other chronic Laterality: right Qualified Code(s): M86.671 - Other chronic osteomyelitis, right ankle and foot (9) Hydronephrosis Qualifiers: Hydronephrosis type: unspecified Qualified Code(s): N13.30 - Unspecified hydronephrosis
--- NOTE | 2018-05-19 13:19 | P.PNID ---
Subjective Remarks: Patient is an 87-year-old male, admitted to the hospital for evaluation of low hemoglobin. There was apparently episodes of black tarry stools. He had a GI workup on this admission, and he seemed to be stable from the GI standpoint. Patient apparently has had a wound on his right heel Achilles area. He had vascular workup, and underwent aortogram around April 08, and had atherectomy of the right SFA and popliteal area. Patient could not really tell me how long he has had the open wound. He has pain when he walks. There is been no fever and chills. On this admission podiatry was consulted. 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 There is a foul odor coming out from that right foot, and patient really could not notice any difference. Since admission he has not been febrile. He has significant pain whenever his RLE gets moved. There was a culture from a right thigh wound that has MRSA. I do not see any culture from the right foot. His initial WBC was around 14,000 and that is down to normal. Blood cultures are negative. Infectious disease consultation has been requested to evaluate the patient. Notes reviewed Temps ok Still with pain Had vascular procedure to RLE 05/15 Had surgery R hip 04/27 - removal of hardware Intraop C/S negative Underwent revascularization 04/24 C/S from ankle with MDR PSAE, Proteus and Enterococcus C/S R thigh MRSA (wound) Antibiotics: Vancomycin Zerbaxa Lines: PIV Past Medical History: Weakness Diabetes HLD (hyperlipidemia) MDRO (multiple drug resistant organisms) resistance Onset Date: ~04/11/18 MRSA (methicillin resistant Staphylococcus aureus) PAD (peripheral artery disease) Hip surgery Allergies/Adverse Reactions: Allergies No Known Allergies Allergy (Verified 04/08/18 12:35) Objective Vital Signs 05/18/18 16:00 05/18/18 20:00 05/19/18 00:00 Temperature 97.8 F 97.9 F 98.4 F Pulse Rate 60 60 64 Respiratory Rate 20 17 18 Blood Pressure 127/61 127/71 101/52 L Pulse Oximetry 97 95 96 05/19/18 04:00 05/19/18 08:00 05/19/18 09:47 Temperature 97.7 F Pulse Rate 60 59 L Respiratory Rate 17 10 L Blood Pressure 122/75 Pulse Oximetry 97 Intake & Output 05/18/18 05/19/18 05/19/18 18:59 06:59 18:59 Intake Total 842.5 / 842.5 440 / 440 Output Total 1300 / 1300 Balance 842.5 / 842.5 -860 / -860 Intake: IV 362.5 / 362.5 200 / 200 Zerbaxa Inj 1,500 MG In NS Inj 100 / 100 200 / 200 100 ML @ 100 mls/hr IV.SIG Q8H ACE Rx#:[id number] Vancomycin Inj 1,250 MG In NS 262.5 / 262.5 Inj 250 ML @ 250 mls/hr IV.SIG Q24H ACE Rx#:[id number] Oral 480 / 480 240 / 240 Output: Urine 1300 / 1300 Other: # Voids 1 Date of Last Bowel Movement 05/19/18 05/19/18 # Bowel Movements 1 04/27/18 12:43 Wound - Thigh Acid Fast Bacilli Smear - Final No acid fast bacilli seen 04/27/18 12:43 Wound - Thigh Mycobacterial Culture - Preliminary No growth in 3 weeks 04/27/18 12:43 Wound - Thigh Fungal Smear - Final No fungal elements seen 04/27/18 12:43 Wound - Thigh Fungal Culture - Preliminary No growth in 3 weeks Lab - Hematology Results 05/18/18 09:30 WBC 10.4 RBC 3.20 L Hgb 9.6 L Hct 29.5 L MCV 92.2 MCH 30.0 MCHC 32.5 RDW 21.7 H Plt Count 328 MPV 7.3 Prelim Diff (Auto) Slide review pending Neut % (Auto) 67.5 Lymph % (Auto) 11.8 Ashley % (Auto) 8.6 H Eos % (Auto) 9.0 H Baso % (Auto) 3.1 H Neut # (Auto) 7.0 Lymph # (Auto) 1.2 Ashley # (Auto) 0.9 Eos # (Auto) 0.9 H Baso # (Auto) 0.3 H WBC Differential . Diff Scan Auto diff confirmed Differential Comment . Keratocytes Occ H Lab - Chemistry Results 05/17/18 05/17/18 05/18/18 17:41 19:34 09:04 Sodium Potassium Chloride Carbon Dioxide Anion Gap BUN Creatinine Estimated GFR POC Glucose 181 H 186 H 168 H Random Glucose Calcium 12/02/18 12/02/18 12/02/18 09:30 13:12 17:36 Sodium 128 L Potassium 5.1 Chloride 99 Carbon Dioxide 20.8 L Anion Gap 8 BUN 12 Creatinine 0.53 L Estimated GFR Greater than 89 POC Glucose 142 H 135 H Random Glucose 136 H Calcium 7.8 L 05/18/18 05/19/18 05/19/18 19:18 06:05 07:44 Sodium Potassium Chloride Carbon Dioxide Anion Gap BUN Creatinine 0.55 L Estimated GFR Greater than 89 POC Glucose 149 H 141 H Random Glucose Calcium 05/19/18 12:11 Sodium Potassium Chloride Carbon Dioxide Anion Gap BUN Creatinine Estimated GFR POC Glucose 156 H Random Glucose Calcium Imaging: ITS Impressions Head CT 04/11/18 11:59 CONCLUSION: 1. Stable appearance of the brain. . Ankle MRI 04/15/18 00:00 CONCLUSION: 1. Osteomyelitis of the posterior calcaneus with a near complete tear of the distal Achilles tendon. There is overlying cellulitis and subcutaneous edema with a small abscess adjacent to the distal Achilles tendon as measured above. There is edematous change on the plantar aspect of the foot with a tenosynovitis as above. No acute fracture identified. Mild bone edema tibia, nonspecific. Ankle X-Ray 04/15/18 00:00 CONCLUSION: Osteomyelitis of the posterior calcaneus with overlying soft tissue swelling and ulceration. No acute fracture. Femur MRI 04/25/18 00:00 CONCLUSION: 1. 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 The collection appears to communicate with the prosthetic component in the proximal femur. 2. Edematous changes are noted along the vastus lateralis and iliotibial band. Hip X-Ray 04/27/18 00:00 CONCLUSION: Hardware removal on the right. Abdomen/Pelvis CT 04/30/18 10:28 Review of bone windows reveals moderate degenerative changes in the lumbar spine and both SI joints. CONCLUSION: 1. Large bolus of stool in the rectum with stool throughout the colon suggesting constipation with possible impaction 2. Prominent gallbladder without stones 3. 2 nonobstructing stones in the left kidney. Physical Exam: GENERAL: awake and alert, not in respiratory distress. SKIN: Cool and dry. No generalized rash. EYES: [place] conjunctiva. No petechia or hemorrhage. No scleral icterus. No injection or drainage. EARS, NOSE AND THROAT: Mucous membranes pink and moist. No oral lesions noted. NECK: Trachea midline. Supple and not tender, no meningeal signs CARDIOVASCULAR: Regular rate and rhythm. No murmurs, rubs or gallops heard RESPIRATORY: Clear to auscultation. Breath sounds equal bilaterally. No rales , wheezing or rhonchi ABDOMEN: Soft, non-tender, nondistended. Bowel sounds present and normoactive. . EXTREMITIES: No clubbing, cyanosis, or edema. 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 Wounds on dorsum with small amount of drainage. Black eschar on his R heel and posterior ankle, no odor. Dressing R hip with serosanguineous drainage NEURO: Awake and alert PSYCH: Cooperative LINE: No evidence of infection Assessment and Plan - Plan Impression Non-healing wound R heel/achilles area with abscess and osteo posterior calcaneus PVD S/P revascularization RLE 04/24 Infection R femur, has sinus tract on MRI, S/P RAZA, C/S MRSA GIB Leukocytosis, resolved Anemia Recommendation Continue IV Vanco - needs until Jun 07, 6 weeks after hardware removal for the R hip Continue Zerbaxa - for now I spoke with Savita Landa about patients infection, his PVD, and low chance that we can cure his infection just with IV Abx He also has ongoing pain, which is ischemic likely plus due to infection Monitor progress Patient still not interested in amputation D/W FP team
[2018-05-19] MEDS ORDERED: Pharmacy Ordered Lab Info OTHER ONE (14:45)
[2018-05-19] MEDS: Vancomycin Inj 1,250 MG in Sodium Chlor 0.9% Inj 250 ML IV.SIG SCH (17:05)
--- NOTE | 2018-05-19 17:12 | P.PNPOD ---
Subjective Interval history: Patient seen bedside with nurse he was polite but he declined any examination. He simply told me NO, may be later in the week he will allow me to evaluate his wound. Physical Exam Vital signs: Vital Signs 05/18/18 20:00 05/19/18 00:00 05/19/18 04:00 Temperature 97.9 F 98.4 F 97.7 F Pulse Rate 60 64 60 Respiratory Rate 17 18 17 Blood Pressure 127/71 101/52 L 122/75 Pulse Oximetry 95 96 97 05/19/18 08:00 05/19/18 09:47 05/19/18 12:00 Temperature 98.0 F 97.6 F Pulse Rate 60 63 Respiratory Rate 18 10 L 18 Blood Pressure 143/65 H 127/62 Pulse Oximetry 96 95 05/19/18 13:27 05/19/18 16:00 Temperature Pulse Rate 63 Respiratory Rate 20 Blood Pressure Pulse Oximetry Intake & Output 05/18/18 05/19/18 05/19/18 18:59 06:59 18:59 Intake Total 842.5 / 842.5 440 / 440 Output Total 1300 / 1300 Balance 842.5 / 842.5 -860 / -860 Intake: IV 362.5 / 362.5 200 / 200 Zerbaxa Inj 1,500 MG In NS Inj 100 / 100 200 / 200 100 ML @ 100 mls/hr IV.SIG Q8H [facility] Rx#:[id number] Vancomycin Inj 1,250 MG In NS 262.5 / 262.5 Inj 250 ML @ 250 mls/hr IV.SIG Q24H [facility] Rx#:[id number] Oral 480 / 480 240 / 240 Output: Urine 1300 / 1300 Other: # Voids 1 Date of Last Bowel Movement 05/19/18 05/19/18 # Bowel Movements 1 Narrative: I was not able to personally examined the patient however I am referencing infectious disease note who saw the patient earlier today. EXTREMITIES: No clubbing, cyanosis, or edema. 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 Wounds on dorsum with small amount of drainage. Black eschar on his R heel and posterior ankle, no odor. Dressing R hip with serosanguineous drainage Medications and Allergies Active Medications: Active Medications Hydrocodone Bitart/Acetaminophen ([place] 10/325) 1 tab PO Q4H [facility] Last Admin: 05/19/18 13:27 Dose: 1 tab Amiodarone HCl (Cordarone) 200 mg PO DAILY [facility] Last Admin: 05/19/18 09:27 Dose: 200 mg Ascorbic Acid (Vitamin C) 500 mg PO BID [facility] Last Admin: 05/19/18 09:27 Dose: 500 mg Citalopram Hydrobromide (Celexa) 10 mg PO DAILY [facility] Last Admin: 05/19/18 09:28 Dose: 10 mg Collagenase (Santyl Oint) 1 applicatio TOPICAL DAILY [facility] Last Admin: 05/19/18 09:32 Dose: 1 applicatio Dextrose (D50w Vial) 50 ml IV.PUSH UNSCH PRN PRN Reason: PER HYPOGLYCEMIA PROTOCOL Last Admin: 04/24/18 21:44 Dose: 50 ml Diphenhydramine HCl (Benadryl) 25 mg PO Q6H PRN PRN Reason: ITCHING Docusate Sodium (Colace) 100 mg PO BID [facility] Last Admin: 05/19/18 09:28 Dose: 100 mg Ferrous Sulfate (Ferosul) 325 mg PO TID [facility] Last Admin: 05/19/18 13:20 Dose: 325 mg Gabapentin (Neurontin) 600 mg PO TID [facility] Last Admin: 05/19/18 13:20 Dose: 600 mg Gentamicin Sulfate (Gentamicin 0.1% Cream) 1 applicatio TOPICAL BID [facility] Last Admin: 05/19/18 09:31 Dose: 1 applicatio Glucagon (Glucagon Inj) 1 mg OTHER PRN PRN PRN Reason: for Hypoglycemia Protocol Ceftolozane/Tazobactam 1,500 (mg/ Sodium Chloride) 100 mls @ 100 mls/hr IV.SIG Q8H [facility] Last Admin: 05/19/18 13:27 Dose: 100 mls/hr Vancomycin HCl 1,250 mg/ (Sodium Chloride) 262.5 mls @ 250 mls/hr IV.SIG Q24H [facility] Last Admin: 05/19/18 17:05 Dose: 250 mls/hr Insulin Aspart (Novolog Insulin Correctional Sugar Inj) 0 unit SQ ACHS [facility]; Protocol Last Admin: 05/19/18 13:20 Dose: 1 unit Levothyroxine Sodium (Synthroid) 125 mcg PO DAILY@0600 [facility] Last Admin: 05/19/18 05:42 Dose: 125 mcg Magnesium Oxide (Mag-Ox) 400 mg PO QID [facility] Last Admin: 05/19/18 13:19 Dose: 400 mg Miscellaneous (Pill Splitter) 1 each OTHER UNSCH PRN PRN Reason: SEE LABEL COMMENTS Morphine Sulfate (Morphine Inj) 2 mg IV.PUSH Q3H PRN PRN Reason: BREAKTHROUGH PAIN Last Admin: 05/14/18 02:31 Dose: 2 mg Naloxone HCl (Narcan Inj) 0.4 mg IV.PUSH UNSCH PRN PRN Reason: SEE LABEL COMMENTS Pantoprazole Sodium (Protonix) 40 mg PO BID [facility] Last Admin: 05/19/18 09:27 Dose: 40 mg Pharmacy Profile Note (Vancomycin Consult Pharmacy) 1 each OTHER UNSCH PRN PRN Reason: Pharmacy to dose Polyethylene Glycol (Miralax) 17 gm PO DAILY [facility] Last Admin: 05/19/18 09:34 Dose: Not Given Potassium Chloride (K-Dur) 20 meq PO BID [facility] Last Admin: 05/19/18 09:27 Dose: 20 meq Potassium Phos/Sodium Phos (K-Phos Neutral) 250 mg PO QID [facility] Last Admin: 05/19/18 13:20 Dose: 250 mg Pravastatin Sodium (Pravachol) 40 mg PO DAILY [facility] Last Admin: 05/19/18 09:28 Dose: 40 mg Sodium Chloride (Sodium Chloride) 1 gm PO TID [facility] Last Admin: 05/19/18 13:21 Dose: 1 gm Sodium Chloride (Ns Flush) 2 ml IV.FLUSH BID [facility] Last Admin: 05/19/18 09:29 Dose: 2 ml Sodium Chloride (Ns Flush) 2 ml IV.FLUSH PRN PRN PRN Reason: FLUSH AFTER USING IV ACCESS Allergies Allergy/AdvReac Type Severity Reaction Status Date / Time No Known Allergies Allergy Verified 04/08/18 12:35 Home Medications Medication Instructions Recorded Confirmed Type Lactobacillus acidoph-L.bulgar 1 tab PO DAILY 04/08/18 04/11/18 History [Floranex] amiodarone 200 mg PO DAILY 04/08/18 04/11/18 History diltiazem HCl 30 mg PO TID 04/08/18 04/11/18 History ferrous sulfate 325 mg PO TID 04/08/18 04/11/18 History gabapentin 300 mg PO TID 04/08/18 04/11/18 History glipizide 10 mg PO BID 04/08/18 04/11/18 History hydrocodone-acetaminophen 1 tab PO Q6H 04/08/18 04/11/18 History levothyroxine 125 mcg PO DAILY 04/08/18 04/11/18 History magnesium oxide 400 mg PO QID 04/08/18 04/11/18 History meloxicam 7.5 mg PO DAILY 04/08/18 04/11/18 History pravastatin 40 mg PO DAILY 04/08/18 04/11/18 History ranitidine HCl 300 mg PO DAILY 04/08/18 04/11/18 History sitagliptin [Januvia] 100 mg PO DAILY 04/08/18 04/11/18 History sod phos di, mono-K phos mono 1 tab PO QID 04/08/18 04/11/18 History [Phospha 250 Neutral] sodium chloride 1,000 mg PO TID 04/08/18 04/11/18 History ascorbic acid (vitamin C) [Vitamin 500 mg PO BID 04/11/18 04/11/18 History C] insulin aspart U-100 [Novolog 1 - 10 units SUBCUT DIRECTED 04/11/18 04/11/18 History U-100 Insulin aspart] Results - Labs CBC & Chem 7: 05/18/18 09:30 05/19/18 06:05 Laboratory Results - last 24 hr 05/18/18 05/18/18 05/19/18 17:36 19:18 06:05 Creatinine 0.55 L Estimated GFR Greater than 89 POC Glucose 135 H 149 H Vancomycin Trough 05/19/18 05/19/18 05/19/18 07:44 12:11 16:10 Creatinine Estimated GFR POC Glucose 141 H 156 H Vancomycin Trough 12.1 H Microbiology 04/27/18 12:43 Wound - Thigh Acid Fast Bacilli Smear - Final No acid fast bacilli seen 04/27/18 12:43 Wound - Thigh Mycobacterial Culture - Preliminary No growth in 3 weeks 04/27/18 12:43 Wound - Thigh Fungal Smear - Final No fungal elements seen 04/27/18 12:43 Wound - Thigh Fungal Culture - Preliminary No growth in 3 weeks Assessment and Plan - Assessment (1) 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 Continue wound care per nursing reconsult once the patient will allow for evaluation of his right lower extremity. In reviewing the chart it appears that the patient likely will not heal his wounds and will likely need a proximal type amputation when he is willing. I am available and ready to evaluate the patient once he is willing. 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
[2018-05-20] MEDS: SODIUM CHLOR 0.9% IV.SIG SCH ×3 (05:40→22:39)
[2018-05-20] MEDS: CEFTOLOZANE IV.SIG SCH ×3 (05:40→22:39)
[2018-05-20] MEDS: Levothyroxine 125 MCG Tablet PO SCH (05:40)
[2018-05-20] MEDS: TAZOBACTAM IV.SIG SCH ×3 (05:40→22:39)
[2018-05-20 06:52] LABS: Hematocrit 26.2 % (39.0-51.0); Hemoglobin 8.8 gm/dL (13.0-17.0); Mean Corpuscular HGB Conc 33.5 % (32.0-36.0); Mean Corpuscular Hemoglobin 30.7 pg (27.0-34.0); Mean Corpuscular Volume 91.6 fL (80.0-100.0); Mean Platelet Volume 7.2 fL (7.0-11.0); Platelet Count 344 th/mm3 (150-450); Red Blood Count 2.86 mil/mm3 (4.50-5.90); Red Cell Distribution Width 22.2 % (11.6-17.2); White Blood Count 8.9 th/mm3 (4.0-11.0)
[2018-05-20 07:18] LABS: Anion Gap 7 meq/L (5-15); Blood Urea Nitrogen 14 mg/dL (7-18); Calcium 7.8 mg/dL (8.5-10.1); Carbon Dioxide 25.8 meq/L (21.0-32.0); Chloride 95 meq/L (98-107); Glomerular Filtration Rate Greater Than 89 mL/min (>89); Glucose,Random 139 mg/dL (74-106); Potassium 4.5 meq/L (3.5-5.1); Sodium 128 meq/L (136-145)
[2018-05-20] MEDS: Docusate Sodium 100 MG Capsule PO SCH ×2 (08:28→20:06)
[2018-05-20] MEDS: Ferrous Sulfate 325 MG Tablet PO SCH ×3 (08:28→17:35)
[2018-05-20] MEDS: Potassium Phos/Sodium Phos 250 MG Tablet PO SCH ×4 (08:28→20:06)
[2018-05-20] MEDS: Citalopram 20 MG Tablet PO SCH (08:28)
[2018-05-20] MEDS: Sodium Chloride 1 GM Tablet PO SCH ×3 (08:29→17:35)
[2018-05-20] MEDS: Amiodarone 200 MG Tablet PO SCH (08:29)
[2018-05-20] MEDS: Gabapentin 300 MG Capsule PO SCH ×3 (08:29→17:35)
[2018-05-20] MEDS: Polyethylene Glycol 3350 17 GM Packet PO SCH (08:30)
[2018-05-20] MEDS: Ascorbic Acid 500 MG Tablet PO SCH ×2 (08:30→20:06)
[2018-05-20] MEDS: Magnesium Oxide 400 MG Tablet PO SCH ×4 (08:31→20:06)
[2018-05-20] MEDS: Gentamicin 0.1% Cream 15 GM Cream TOPICAL SCH ×2 (08:35→22:42)
[2018-05-20] MEDS: Collagenase Oint 30 GM Tube TOPICAL SCH (08:35)
[2018-05-20] MEDS: Insulin NovoLOG Aspart Correctional Sugar Inj SQ SCH ×4 (08:36→22:41)
[2018-05-20] MEDS: Vancomycin Inj 1,250 MG in Sodium Chlor 0.9% Inj 250 ML IV.SIG SCH (14:55)
--- NOTE | 2018-05-20 15:49 | P.PNFP ---
Subjective Interval history: No acute events overnight. Patient reports no new complaints this morning. He reports continued pain in the right foot. Today he also has significant pain related to his sacral ulcer. He has no fever chills lightheadedness dizziness chest pain shortness of breath. He has no new complaints today. <ElyÁngelaevy Concepcion - 05/20/18 15:49> Results - Labs Result diagrams: 05/20/18 05:40 05/21/18 04:20 <Pedro Shay - 05/21/18 13:55> Abnormal lab results 05/20/18 05/21/18 05/21/18 Range/Units 19:45 04:20 09:13 Creatinine 0.49 L (0.60-1.30) mg/dL POC Glucose 177 H 137 H (68-110) mg/dl 05/21/18 Range/Units 12:43 Creatinine (0.60-1.30) mg/dL POC Glucose 127 H (68-110) mg/dl BMP 05/21/18 04:20 Creatinine 0.49 L <Pedro Shay - 05/21/18 13:55> Abnormal lab results 05/19/18 05/19/18 05/19/18 Range/Units 16:10 17:19 19:35 RBC (4.50-5.90) mil/mm3 Hgb (13.0-17.0) gm/dL Hct (39.0-51.0) % RDW (11.6-17.2) % Sodium (136-145) meq/L Chloride (98-107) meq/L Creatinine (0.60-1.30) mg/dL POC Glucose 186 H 162 H (68-110) mg/dl Random Glucose (74-106) mg/dL Calcium (8.5-10.1) mg/dL Vancomycin Trough 12.1 H (5.0-10.0) mcg/mL 05/20/18 05/20/18 05/20/18 Range/Units 05:40 05:40 08:28 RBC 2.86 L (4.50-5.90) mil/mm3 Hgb 8.8 L (13.0-17.0) gm/dL Hct 26.2 L (39.0-51.0) % RDW 22.2 H (11.6-17.2) % Sodium 128 L (136-145) meq/L Chloride 95 L (98-107) meq/L Creatinine 0.59 L (0.60-1.30) mg/dL POC Glucose 166 H (68-110) mg/dl Random Glucose 139 H (74-106) mg/dL Calcium 7.8 L (8.5-10.1) mg/dL Vancomycin Trough (5.0-10.0) mcg/mL 05/20/18 Range/Units 12:40 RBC (4.50-5.90) mil/mm3 Hgb (13.0-17.0) gm/dL Hct (39.0-51.0) % RDW (11.6-17.2) % Sodium (136-145) meq/L Chloride (98-107) meq/L Creatinine (0.60-1.30) mg/dL POC Glucose 172 H (68-110) mg/dl Random Glucose (74-106) mg/dL Calcium (8.5-10.1) mg/dL Vancomycin Trough (5.0-10.0) mcg/mL Short CBC 05/20/18 Range/Units 05:40 WBC 8.9 (4.0-11.0) th/mm3 Hgb 8.8 L (13.0-17.0) gm/dL Hct 26.2 L (39.0-51.0) % Plt Count 344 (150-450) th/mm3 BMP 05/20/18 05:40 Sodium 128 L Potassium 4.5 Chloride 95 L Carbon Dioxide 25.8 BUN 14 Creatinine 0.59 L Calcium 7.8 L <Rene Graves - 05/20/18 15:49> Physical Exam Vital signs: Vital Signs 05/20/18 16:00 05/20/18 17:27 05/20/18 20:00 Temperature 97.7 F 97.9 F Pulse Rate 54 L 58 L Respiratory Rate 16 18 Blood Pressure 110/55 L 99/68 L Pulse Oximetry 98 98 97 05/21/18 00:00 05/21/18 04:00 05/21/18 08:00 Temperature 97.6 F 97.4 F L 97.6 F Pulse Rate 62 61 55 L Respiratory Rate 18 18 20 Blood Pressure 127/58 L 128/60 135/64 Pulse Oximetry 95 98 95 05/21/18 08:26 Temperature Pulse Rate Respiratory Rate Blood Pressure Pulse Oximetry 98 Intake & Output 05/20/18 05/21/18 05/21/18 18:59 06:59 18:59 Intake Total 1083 / 1083 410 / 410 Output Total 1000 / 1000 1000 / 1000 Balance 83 / 83 -590 / -590 Weight 74.9 kg Intake: IV 363 / 363 200 / 200 Zerbaxa Inj 1,500 MG In NS Inj 100 / 100 200 / 200 100 ML @ 100 mls/hr IV.SIG Q8H [facility] Rx#:[id number] Vancomycin Inj 1,250 MG In NS 263 / 263 Inj 250 ML @ 250 mls/hr IV.SIG Q24H [facility] Rx#:[id number] Oral 720 / 720 210 / 210 Output: Urine 1000 / 1000 1000 / 1000 Other: Date of Last Bowel Movement 05/19/18 # Bowel Movements 2 <Pedro Shay - 05/21/18 13:55> Vital Signs 05/19/18 16:00 05/19/18 20:00 05/19/18 23:43 Temperature 98.0 F 97.9 F 97.4 F L Pulse Rate 61 54 L 62 Respiratory Rate 18 18 19 Blood Pressure 129/62 100/58 L 116/66 Pulse Oximetry 96 94 L 96 05/20/18 00:00 05/20/18 04:00 05/20/18 08:00 Temperature 97.8 F 98.1 F Pulse Rate 55 L 59 L 63 Respiratory Rate 16 16 Blood Pressure 128/80 144/65 H Pulse Oximetry 98 98 05/20/18 12:00 Temperature 97.7 F Pulse Rate 61 Respiratory Rate 16 Blood Pressure 121/60 Pulse Oximetry 98 Intake & Output 05/19/18 05/20/18 05/20/18 18:59 06:59 18:59 Intake Total 842.5 / 842.5 440 / 440 100 / 100 Output Total 500 / 500 850 / 850 Balance 342.5 / 342.5 -410 / -410 100 / 100 Weight 74.9 kg Intake: IV 362.5 / 362.5 200 / 200 100 / 100 Zerbaxa Inj 1,500 MG In NS Inj 100 / 100 200 / 200 100 / 100 100 ML @ 100 mls/hr IV.SIG Q8H [facility] Rx#:[id number] Vancomycin Inj 1,250 MG In NS 262.5 / 262.5 Inj 250 ML @ 250 mls/hr IV.SIG Q24H [facility] Rx#:[id number] Oral 480 / 480 240 / 240 Output: Urine 500 / 500 Urine Amount (Catheter) 850 / 850 Condom 850 / 850 Other: Date of Last Bowel Movement 05/19/18 05/19/18 # Bowel Movements 1 # Incontinent Bowel Movements 3 <Rene Graves - 05/20/18 15:49> Narrative: General: Cachectic elderly male, alert, and in no acute distress. Oriented to person and place. HEENT: Atraumatic, non-icteric sclera and no conjunctival injection, moist mucous membranes Neck: Supple, non-tender without masses or lymphadenopathy, trachea midline, no JVD Cardiac: Regular rate and rhythm Pulmonary: Non-labored breathing. Lungs clear to auscultation bilaterally with good air movement Abdomen: Normal bowel sounds, soft and non-tender without rebound or guarding Extremities: No edema, right lower extremity is cool to the touch. He has poor sensation. Atrophic muscular changes in both legs bilaterally. Patient able to move toes bilaterally. Necrotic tip of the right first toe, necrosis to the MTP joint of the second toe, and increasingly dusky appearance of the third toe. There is also a small area of necrosis on the plantar surface of the foot. Dressings are in place over the wounds on the heels and are clean dry and intact. <Rene Graves - 05/20/18 15:49> - Urinary Catheter Management Condom Cath placed during this visit: no <Pedro Shay - 05/21/18 13:55> no <Rene Graves - 05/20/18 16:21> Reason for continuing: Not indwelling catheter <Rene Graves - 15:49> Indwelling Urethral Catheter Cath placed during this visit: no <Pedro Shay - 05/21/18 13:55> yes, but has since been removed by the nurse <Rene Graves - 05/20/18 16:21> Reason for continuing: Not indwelling catheter <Rene Graves - 15:49> Insertion date: 04/11/18 <Rene Graves - 05/20/18 15:49> Insertion time: 21:08 <Rene Graves - 05/20/18 15:49> Removal date: 04/12/18 <Rene Graves 05/20/18 15:49> Removal time: 11:35 <Rene Graves - 05/20/18 15:49> Straight Cath placed during this visit: no <ShayPedro - 05/21/18 13:55> yes <Rene Graves - 05/20/18 16:21> Reason for continuing: Other continuation reason <Rene Graves - 05/20 15:49> Insertion date: 04/11/18 <Rene Graves - 05/20/18 15:49> Insertion time: 21:08 <Rene Graves 05/20/18 15:49> Assessment and Plan - Assessment (1) Osteomyelitis of ankle Code(s): M86.9 - Osteomyelitis, unspecified Status: Acute (2) Ischemia of foot Code(s): I99.8 - Other disorder of circulatory system Status: Acute (3) Anemia Code(s): D64.9 - Anemia, unspecified Status: Acute (4) Infection associated with internal hip prosthesis Code(s): T84.59XA - Infection and inflammatory reaction due to other internal joint prosthesis, initial encounter; Z96.649 - Presence of unspecified artificial hip joint Status: Acute (5) Chronic wound of extremity Status: Chronic (6) MRSA (methicillin resistant staph aureus) culture positive Code(s): Z22.322 - Carrier or suspected carrier of Methicillin resistant Staphylococcus aureus Status: Acute (7) PAD (peripheral artery disease) Code(s): I73.9 - Peripheral vascular disease, unspecified Status: Chronic (8) Bandemia Code(s): D72.825 - Bandemia Status: Resolved (9) Hydronephrosis Code(s): N13.30 - Unspecified hydronephrosis Status: Resolved (10) HTN (hypertension) Code(s): I10 - Essential (primary) hypertension Status: Acute (11) Diabetes Code(s): E11.9 - Type 2 diabetes mellitus without complications Status: Acute (12) Malnutrition Code(s): E46 - Unspecified protein-calorie malnutrition Status: Acute (13) Anisocoria Code(s): H57.02 - Anisocoria Status: Acute (14) Suicidal ideation Code(s): R45.851 - Suicidal ideations Status: Acute (15) Nutrition, metabolism, and development symptoms Code(s): R63.8 - Other symptoms and signs concerning food and fluid intake Status: Acute <ShayPedro - 05/21/18 13:55> (1) Osteomyelitis of ankle Code(s): M86.9 - Osteomyelitis, unspecified Status: Acute Plan: Osteomyelitis of right ankle, culture positive for MRSA of right thigh wound. Wound culture of right ankle shows Pseudomonas and multidrug resistant Proteus as well as group D enterococcus. -Bcx NGTD -Podiatry had been consulted, recommended below-knee amputation, patient refused , podiatry history below -Podiatry was reconsulted today, appreciate recommendations about potential debridement, patient refused to see them yesterday. 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 Right popliteal pulse appreciated on exam -Balloon angioplasty and atherectomy 05/15 ID consulted, appreciate recs * Continue vancomycin--until Jun 07, 6 weeks after hardware removal for the R hip * Continue Zerbaxa--for the heel ulcer and osteo due to resistance of organisms Wound care consulted, appreciate recs * See note from 04/25 * follow recommendations * Pain management with [place] scheduled, gabapentin, morphine for breakthrough pain Podiatry history; * plan for patient to have calcanectomy on 04/26 however due to patient's inability to recall presurgery discussion when seen by podiatry the morning of 04/26 Dr. Urena will no longer be performing calcanectomy procedure. * Recommends: betadine wet to dry daily and if foot/heel becomes acutely infected rec as patient is unable to care for himself or able to mentally process limb salvage procedure options. In addition, the likelihood of failure was already high due to the low vascularity to the right lower limb. * Podiatry has signed off. * Discussed option of below-knee amputation of right lower extremity and Patient still not interested (2) Ischemia of foot Code(s): I99.8 - Other disorder of circulatory system Status: Acute Plan: Patient with developing ischemia of right 1st, 2nd toe, and 3rd. Vascular surgery reconsulted. -Balloon angioplasty and arthrectomy 05/15 -Patient continues to refuse BKA -Palliative care attempting to contact medical proxy to further determine goals of care (3) Anemia Code(s): D64.9 - Anemia, unspecified Status: Acute Plan: On admission found to have hemoglobin of 6.6, status post 2 units RBCs transfused. Had tarry stools, endoscopy and colonoscopy benign other than small ulcer in rectum. Hemoglobin stable, will continue to monitor (4) Infection associated with internal hip prosthesis Code(s): T84.59XA - Infection and inflammatory reaction due to other internal joint prosthesis, initial encounter; Z96.649 - Presence of unspecified artificial hip joint Status: Acute Plan: Found to have right hip prosthesis infection. Irrigation, debridement, hardware removal and placement of antibiotic beads (04/27). -Orthopedics consulted and they recommended 2-week follow-up -Antibiotics per ID for chronic osteomyelitis (5) Chronic wound of extremity Status: Chronic Plan: Patient currently follows up with wound care as an outpatient Wound management: Right hip wound, super absorbant dressing daily Skin tear lower left extremity, Santyl covered and dry dressing daily Right heel wound, apply gentamicin cream twice daily, see above plan for associated osteomyelitis Wound care consulted, appreciate recommendations * Cleanse wound to R Achilles heel with normal saline only and pat dry. Apply gentamicin mixed with Santyl 50/ 50 and apply to wound bed * Cover with ABD pad, and secure with rolled gauze and tape. Change dressing daily, until seen by podiatry. * Cleanse wound to R hip see updated note from 04/25 and follow ortho rec for dressing * Cleanse wound to L posterior lower leg with normal saline and pat dry. Apply optifoam gentle 4x4 dressing change dressing every 3 days or PRN if saturated or dislodged. * Sacral wound: -Please cleanse sacral area gently with Remedy barrier wipes and pat dry. Apply Cavilon skin barrier film spray to sacral area BID and PRN and leave open to air. -Turn and reposition patient every 2 hours from L to R side limiting time spent on back to P.T. and meals -Patient placed on low airloss bed/ mattress -Will try to get in contact with wound care for re-evaluation of sacral wound , stable on exam -Wound care was reconsulted yesterday because we would like the wound care physician to examine his wound to the right heel. (6) MRSA (methicillin resistant staph aureus) culture positive Code(s): Z22.322 - Carrier or suspected carrier of Methicillin resistant Staphylococcus aureus Status: Acute Plan: This patient suffers from chronic nonhealing wounds likely secondary to peripheral arterial disease and DM. Patient had wound from right thigh cultured which ultimately grew MRSA. -Monitor for fevers and signs of systemic illness -Antibiotic therapy as above (7) PAD (peripheral artery disease) Code(s): I73.9 - Peripheral vascular disease, unspecified Status: Chronic Plan: s/p recent right LE arterectomy. s/p vascular procedure as above on 04/24 (8) Bandemia Code(s): D72.825 - Bandemia Status: Resolved Plan: Resolved, likely due to osteomyelitis. See above plan. (9) Hydronephrosis Code(s): N13.30 - Unspecified hydronephrosis Status: Resolved Plan: Left hydronephrosis and hydroureter without obstruction on CT (04/11). Currently voiding well, no CVA tenderness. UA (-)04/26. Not noted on CT on . - Continue to monitor I's and O's. (10) HTN (hypertension) Code(s): I10 - Essential (primary) hypertension Status: Acute Plan: Continue Cardizem and amiodarone (11) Diabetes Code(s): E11.9 - Type 2 diabetes mellitus without complications Status: Acute Plan: Hx of DM -Held home glipizide, Januvia -Accu-Cheks -Low-dose sliding scale -Hypoglycemia protocol in place (12) Malnutrition Code(s): E46 - Unspecified protein-calorie malnutrition Status: Acute Plan: This patient appears thin and possibly malnourished. Patient has significant muscle atrophy in arms and legs that are partially consistent with age and lack of activity. 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 Patient unsure of specific cause or diagnoses. Can follow up with Ophthalmology outpatient as needed (14) Suicidal ideation Code(s): R45.851 - Suicidal ideations Status: Acute Plan: Nurse reported that patient expressed fluctuating suicidal ideation and refusal of taking his medications om 05/11. His mood improved later on in the morning. 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 He is on Zebraxa and there are no other options for antibiotic therapy per infectious disease. He is not able to be placed in [facility] facility due to being on this medication. Extensive discussion has occurred about the benefits of amputation of the right lower extremity. Patient does not have decision-making capacity and had been upset with the idea of amputation. We discussed this with him again today and he seems to understand the benefits. We do still think that this is the best course of action because his chronic wounds are unlikely to heal due to his extensive peripheral vascular disease. We will continue this discussion with palliative care and his daughter and her appointed shipping services sales representative <Rene Graves J - 05/20/18 16:21> - Attending Attestation See the residents documentation for details. I saw and evaluated the patient regarding the ford portions of this evaluation and agree with the residents findings and plans as written. Parts of this note were created using [employer] voice recognition software program. While efforts were made to correct any mistakes made by this software, some mistakes, errors, and omissions may remain in the final note that were not caught when the note was originally created. Plan of care was discussed and agreed upon with the patient as specifically documented in the above note. An opportunity to ask questions with explanation was provided. Patient voiced understanding on all information reviewed and discussed. <Pedro Shay - 05/21/18 13:55> <Rene Graves J - Last Filed: 05/20/18 16:20> (1) Osteomyelitis of ankle Qualifiers: Osteomyelitis type: other chronic Laterality: right Qualified Code(s): M86.671 - Other chronic osteomyelitis, right ankle and foot (9) Hydronephrosis Qualifiers: Hydronephrosis type: unspecified Qualified Code(s): N13.30 - Unspecified hydronephrosis <Pedro Shay - Last Filed: 05/21/18 13:55> (1) Osteomyelitis of ankle Qualifiers: Osteomyelitis type: other chronic Laterality: right Qualified Code(s): M86.671 - Other chronic osteomyelitis, right ankle and foot (9) Hydronephrosis Qualifiers: Hydronephrosis type: unspecified Qualified Code(s): N13.30 - Unspecified hydronephrosis <Rene Graves - Last Filed: 05/20/18 16:20> (1) Osteomyelitis of ankle Qualifiers: Osteomyelitis type: other chronic Laterality: right Qualified Code(s): M86.671 - Other chronic osteomyelitis, right ankle and foot (9) Hydronephrosis Qualifiers: Hydronephrosis type: unspecified Qualified Code(s): N13.30 - Unspecified hydronephrosis <Pedro Shay - Last Filed: 05/21/18 13:55> (1) Osteomyelitis of ankle Qualifiers: Osteomyelitis type: other chronic Laterality: right Qualified Code(s): M86.671 - Other chronic osteomyelitis, right ankle and foot (9) Hydronephrosis Qualifiers: Hydronephrosis type: unspecified Qualified Code(s): N13.30 - Unspecified hydronephrosis
--- NOTE | 2018-05-20 15:56 | P.PNPAL ---
Reason for Visit Reason for visit: a. To assist with evaluation and management of symptoms including: Pain, weakness b. To assist medical decision maker(s) with: better understanding of current medical conditions; weighing benefits/burdens of medical treatment options; making medical treatment decisions. Subjective Subjective/Interval History: This is an 87-year-old male transferred from the nursing facility on 04/11 to the emergency department for low hemoglobin. The patient had just been seen by Dr. Oliva and had undergone arteriogram with lower extremity angiogram, right SFA and popliteal atherectomy to the right lower extremity. He was found to be confused, aware only of his name and that he was at the hospital. Patient is seen today for follow-up of symptom management for pain and weakness and to assist family in goals of medical treatment. He continues to have pain in the right foot/leg, likely ischemic/wound associated in nature. He continues to take Morton 10/325 mg as approximately 5 times daily as well as gabapentin 600 mg p.o. 3 times daily [id number]. He has morphine available however has not used that since 05/14. He is nonweightbearing on the right foot due to the severity of the wound and was at baseline, very weak. His weakness has progressed and it is likely that he will never walk again due to global weakness, right lower extremity with large wound or possible right BKA. . Family/Friend Interactions: Communicated with his guardian, Kyleigh Landa, that he is now considering the possibility of amputation. The patient is not capacitated for decision making and has been declared legally incapacitated, however family does continue to consider his stated wishes. Kyleigh will communicate with the patient's daughter , Ewa, who lives in [facility] regarding progressing with amputation. It is thought that the patient will not walk again regardless of amputation versus conservative wound care. Kyleigh states she will make that decision with Ewa in the next few days. . Advance Directives Living Will: Completed, but not made available Health Care Surrogate: Completed, but not made available Durable Power of Inclusion Special Educator: Completed, but not made available Objective Vital Signs: Vital Signs 05/19/18 16:00 05/19/18 20:00 05/19/18 23:43 Temperature 98.0 F 97.9 F 97.4 F L Pulse Rate 61 54 L 62 Respiratory Rate 18 18 19 Blood Pressure 129/62 100/58 L 116/66 Pulse Oximetry 96 94 L 96 05/20/18 00:00 05/20/18 04:00 05/20/18 08:00 Temperature 97.8 F 98.1 F Pulse Rate 55 L 59 L 63 Respiratory Rate 16 16 Blood Pressure 128/80 144/65 H Pulse Oximetry 98 98 05/20/18 12:00 Temperature 97.7 F Pulse Rate 61 Respiratory Rate 16 Blood Pressure 121/60 Pulse Oximetry 98 Intake & Output 05/19/18 05/20/18 05/20/18 18:59 06:59 18:59 Intake Total 842.5 / 842.5 440 / 440 100 / 100 Output Total 500 / 500 850 / 850 Balance 342.5 / 342.5 -410 / -410 100 / 100 Weight 165 lb 2.02 oz Intake: IV 362.5 / 362.5 200 / 200 100 / 100 Zerbaxa Inj 1,500 MG In NS Inj 100 / 100 200 / 200 100 / 100 100 ML @ 100 mls/hr IV.SIG Q8H ACE Rx#:[id number] Vancomycin Inj 1,250 MG In NS 262.5 / 262.5 Inj 250 ML @ 250 mls/hr IV.SIG Q24H ACE Rx#:[id number] Oral 480 / 480 240 / 240 Output: Urine 500 / 500 Urine Amount (Catheter) 850 / 850 Condom 850 / 850 Other: Date of Last Bowel Movement 05/19/18 05/19/18 # Bowel Movements 1 # Incontinent Bowel Movements 3 Physical Exam: CONSTITUTIONAL/GENERAL: This is elderly, cachectic male patient, in no apparent distress. TUBES/LINES/DRAINS: PIV SKIN: Scattered ecchymosis on upper and lower extremities, skin is dry with purpling on right second and third toes, right great toe, multiple abrasions and wounds on feet and ankles bilaterally, large ecchymotic right heel decubitus HEAD: Atraumatic. Normocephalic. EYES: Left pupil 4 mm and oblong from previous traumatic injury, right pupil 2 mm and reactive, extraocular motions intact. No scleral icterus. No injection or drainage. Fundi not examined. CARDIOVASCULAR: Regular rate and rhythm with 2/6 systolic ejection murmurs, no gallops, or rubs. No JVD. Peripheral pulses symmetric. RESPIRATORY/CHEST: Symmetric, unlabored respirations. Clear to auscultation. Breath sounds equal bilaterally. No wheezes, rales, or rhonchi. GASTROINTESTINAL: Abdomen soft, non-tender, nondistended. No hepato-splenomegaly , or palpable masses. No guarding. Bowel sounds present. GENITOURINARY: Without palpable bladder distension. MUSCULOSKELETAL: Extremities without clubbing, cyanosis, or edema. No joint tenderness or effusion noted. NEUROLOGICAL: Awake and alert. Generalized weakness. Follows commands. Cognitively he is pleasantly confused. Moves all extremities but has difficulty with bilateral lower extremities right greater than left secondary to pain. PSYCHIATRIC: No obvious anxiety/depression. no apparent hallucinations or other psychotic thought process. He thinks me for coming to visit him. . Diagnostic Tests Laboratory: Laboratory Results - last 72 hr 05/17/18 05/17/18 05/18/18 17:41 19:34 09:04 WBC RBC Hgb Hct MCV MCH MCHC RDW Plt Count MPV Prelim Diff (Auto) Neut % (Auto) Lymph % (Auto) Cottle % (Auto) Eos % (Auto) Baso % (Auto) Neut # (Auto) Lymph # (Auto) Cottle # (Auto) Eos # (Auto) Baso # (Auto) WBC Differential Diff Scan Differential Comment Keratocytes Sodium Potassium Chloride Carbon Dioxide Anion Gap BUN Creatinine Estimated GFR POC Glucose 181 H 186 H 168 H Random Glucose Calcium Vancomycin Trough 05/18/18 05/18/18 05/18/18 09:30 09:30 13:12 WBC 10.4 RBC 3.20 L Hgb 9.6 L Hct 29.5 L MCV 92.2 MCH 30.0 MCHC 32.5 RDW 21.7 H Plt Count 328 MPV 7.3 Prelim Diff (Auto) Slide review pending Neut % (Auto) 67.5 Lymph % (Auto) 11.8 Cottle % (Auto) 8.6 H Eos % (Auto) 9.0 H Baso % (Auto) 3.1 H Neut # (Auto) 7.0 Lymph # (Auto) 1.2 Cottle # (Auto) 0.9 Eos # (Auto) 0.9 H Baso # (Auto) 0.3 H WBC Differential . Diff Scan Auto diff confirmed Differential Comment . Keratocytes Occ H Sodium 128 L Potassium 5.1 Chloride 99 Carbon Dioxide 20.8 L Anion Gap 8 BUN 12 Creatinine 0.53 L Estimated GFR Greater than 89 POC Glucose 142 H Random Glucose 136 H Calcium 7.8 L Vancomycin Trough 05/18/18 05/18/18 05/19/18 17:36 19:18 06:05 WBC RBC Hgb Hct MCV MCH MCHC RDW Plt Count MPV Prelim Diff (Auto) Neut % (Auto) Lymph % (Auto) Cottle % (Auto) Eos % (Auto) Baso % (Auto) Neut # (Auto) Lymph # (Auto) Cottle # (Auto) Eos # (Auto) Baso # (Auto) WBC Differential Diff Scan Differential Comment Keratocytes Sodium Potassium Chloride Carbon Dioxide Anion Gap BUN Creatinine 0.55 L Estimated GFR Greater than 89 POC Glucose 135 H 149 H Random Glucose Calcium Vancomycin Trough 05/19/18 05/19/18 05/19/18 07:44 12:11 16:10 WBC RBC Hgb Hct MCV MCH MCHC RDW Plt Count MPV Prelim Diff (Auto) Neut % (Auto) Lymph % (Auto) Cottle % (Auto) Eos % (Auto) Baso % (Auto) Neut # (Auto) Lymph # (Auto) Cottle # (Auto) Eos # (Auto) Baso # (Auto) WBC Differential Diff Scan Differential Comment Keratocytes Sodium Potassium Chloride Carbon Dioxide Anion Gap BUN Creatinine Estimated GFR POC Glucose 141 H 156 H Random Glucose Calcium Vancomycin Trough 12.1 H 05/19/18 05/19/18 05/20/18 17:19 19:35 05:40 WBC 8.9 RBC 2.86 L Hgb 8.8 L Hct 26.2 L MCV 91.6 MCH 30.7 MCHC 33.5 RDW 22.2 H Plt Count 344 MPV 7.2 Prelim Diff (Auto) Neut % (Auto) Lymph % (Auto) Cottle % (Auto) Eos % (Auto) Baso % (Auto) Neut # (Auto) Lymph # (Auto) Cottle # (Auto) Eos # (Auto) Baso # (Auto) WBC Differential Diff Scan Differential Comment Keratocytes Sodium Potassium Chloride Carbon Dioxide Anion Gap BUN Creatinine Estimated GFR POC Glucose 186 H 162 H Random Glucose Calcium Vancomycin Trough 05/20/18 05/20/18 05/20/18 05:40 08:28 12:40 WBC RBC Hgb Hct MCV MCH MCHC RDW Plt Count MPV Prelim Diff (Auto) Neut % (Auto) Lymph % (Auto) Cottle % (Auto) Eos % (Auto) Baso % (Auto) Neut # (Auto) Lymph # (Auto) Cottle # (Auto) Eos # (Auto) Baso # (Auto) WBC Differential Diff Scan Differential Comment Keratocytes Sodium 128 L Potassium 4.5 Chloride 95 L Carbon Dioxide 25.8 Anion Gap 7 BUN 14 Creatinine 0.59 L Estimated GFR Greater than 89 POC Glucose 166 H 172 H Random Glucose 139 H Calcium 7.8 L Vancomycin Trough Result Diagrams: 05/20/18 05:40 05/20/18 05:40 Microbiology: Microbiology 04/27/18 12:43 Acid Fast Bacilli Smear - Final Wound - Thigh No acid fast bacilli seen Mycobacterial Culture - Preliminary No growth in 3 weeks 04/27/18 12:43 Fungal Smear - Final Wound - Thigh No fungal elements seen Fungal Culture - Preliminary No growth in 3 weeks Imaging: ITS Impressions Head CT 04/11/18 11:59 CONCLUSION: 1. Stable appearance of the brain. . Ankle MRI 04/15/18 00:00 CONCLUSION: 1. Osteomyelitis of the posterior calcaneus with a near complete tear of the distal Achilles tendon. There is overlying cellulitis and subcutaneous edema with a small abscess adjacent to the distal Achilles tendon as measured above. There is edematous change on the plantar aspect of the foot with a tenosynovitis as above. No acute fracture identified. Mild bone edema tibia, nonspecific. Ankle X-Ray 04/15/18 00:00 CONCLUSION: Osteomyelitis of the posterior calcaneus with overlying soft tissue swelling and ulceration. No acute fracture. Femur MRI 04/25/18 00:00 CONCLUSION: 1. 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 The collection appears to communicate with the prosthetic component in the proximal femur. 2. Edematous changes are noted along the vastus lateralis and iliotibial band. Hip X-Ray 04/27/18 00:00 CONCLUSION: Hardware removal on the right. Abdomen/Pelvis CT 04/30/18 10:28 Review of bone windows reveals moderate degenerative changes in the lumbar spine and both SI joints. CONCLUSION: 1. Large bolus of stool in the rectum with stool throughout the colon suggesting constipation with possible impaction 2. Prominent gallbladder without stones 3. 2 nonobstructing stones in the left kidney. Procedures: 04/14: Colonoscopy 11/3: Endoscopy 04/24: Right lower extremity angiogram, right popliteal [employer]ARD. 04/27: Removal of hardware right femur, Synthes TFN, irrigation and debridement of skin, subcu tissue, muscle and bone with insertion of Stimulan and antibiotic beads spacer. Assessment and Plan Pertinent Non-Medical Issues: Psychosocial: He was born in [place] and retired from [employer]. He has been twice and is now . He has 2 children that live in [facility]. His daughter Ewa is his healthcare decision maker. Spiritual: Log Inspector available. Legal: Has an elder care district attorney, Rubin Sequeira Ethical issues impacting care: Patient is confused. . Important Contacts: Daughter: Ewa Tovar ([facility]) [phone] wedding day coordinator: Kyleigh Landa (HIPPA release on chart for her to receive info) Inclusion Special Educator: Rubin Sequeira Prognosis: His prognosis is guarded. He is of advanced age with multiple comorbidities. He has several chronic nonhealing wounds, severe peripheral artery disease and a large calcaneal ulcer on his right heel. He has a draining wound on his right hip and is at elevated risk for continued infections, complications, possible loss of limb, sepsis and even . He is currently refusing amputation of the right foot but has poor insight, is confused and does not appear to have capacity to make that decision. Contact being established with patient's janitor caretaker and daughter to clarify goals however, decreased vascularity to his periphery raises his risk of continued infection and failure regardless of the decision to amputate or not. . Code Status: No Code DNR Plan: PLAN: Legal decision maker: Patient is not capacitated for decision-making. His daughter Ewa has been designated as his healthcare proxy and she lives in [facility]. To that end she has hired a local janitor caretaker, Kyleigh Landa, to assist her in decision-making. Goals: To be determined. CODE STATUS: DO NOT RESUSCITATE SYMPTOMS: * Pain: He complains of pain in the right foot and heel, worse with movement, intermittent, stabbing with no relieving factors except lying still and opioids. He is receiving hydrocodone/acetaminophen/10/325 every 4 hours as needed and gabapentin 600 mg 3 times daily. He is taking an average of 4-6 Morton tablets daily. He remains painful after atherectomy and angioplasty. * Weakness: He is generally weak but was reportedly somewhat ambulatory with assistance at [facility], per the guardian. Given the wounds on his heel, progressive ischemia of the second toe and prolonged hospitalization, he would likely not walk again with or without BKA. Family is considering going forward with amputation as the patient states he would now consider it. It should be noted, that the patient is legally been declared incapacitated for healthcare decision making. The family is, however, considering his wishes in their decisions. Palliative care will continue to follow the patient during hospital course as condition evolves, to assist patient/decision-maker with understanding of their medical conditions, weighing benefits/burdens of treatment options, for clarification of goals of treatment. Additionally will assist with any symptoms of palliative concern. . Attestation Attestation: To help prompt me to consider important information that might be impacting today's encounter and assessment, information from prior notes written by myself or my colleagues may have been "brought forward" into today's note. My signature on this note, however, is an attestation that I personally performed the exam, history, and/or decision-making noted today, and, unless otherwise indicated, the interactions with patient, family, and staff as well as the review of records all occurred today. I also attest that the listed assessment and stated plan reflect my best clinical judgment today based on the combination of historical information, prior notes, and today's exam/ interactions. When time spent is documented, it refers only to time spent today by the signer, or if indicated, combined time spent today by collaborating physician/nurse practitioner. .
[2018-05-21 05:26] LABS: Glomerular Filtration Rate Greater Than 89 mL/min (>89)
[2018-05-21] MEDS: TAZOBACTAM IV.SIG SCH ×3 (05:45→22:21)
[2018-05-21] MEDS: SODIUM CHLOR 0.9% IV.SIG SCH ×3 (05:45→22:21)
[2018-05-21] MEDS: CEFTOLOZANE IV.SIG SCH ×3 (05:45→22:21)
[2018-05-21] MEDS: Levothyroxine 125 MCG Tablet PO SCH (05:45)
[2018-05-21] MEDS: Ferrous Sulfate 325 MG Tablet PO SCH ×3 (09:14→17:54)
[2018-05-21] MEDS: Gabapentin 300 MG Capsule PO SCH ×3 (09:14→17:53)
[2018-05-21] MEDS: Sodium Chloride 1 GM Tablet PO SCH ×3 (09:14→17:53)
[2018-05-21] MEDS: Insulin NovoLOG Aspart Correctional Sugar Inj SQ SCH ×4 (09:14→23:16)
[2018-05-21] MEDS: Potassium Phos/Sodium Phos 250 MG Tablet PO SCH ×4 (09:14→22:21)
[2018-05-21] MEDS: Ascorbic Acid 500 MG Tablet PO SCH ×2 (09:14→22:21)
[2018-05-21] MEDS: Docusate Sodium 100 MG Capsule PO SCH ×2 (09:14→22:21)
[2018-05-21] MEDS: Amiodarone 200 MG Tablet PO SCH (09:14)
[2018-05-21] MEDS: Polyethylene Glycol 3350 17 GM Packet PO SCH (09:15)
[2018-05-21] MEDS: Citalopram 20 MG Tablet PO SCH (09:15)
[2018-05-21] MEDS: Magnesium Oxide 400 MG Tablet PO SCH ×4 (09:18→22:23)
[2018-05-21] MEDS: Gentamicin 0.1% Cream 15 GM Cream TOPICAL SCH ×2 (09:22→22:27)
[2018-05-21] MEDS: Collagenase Oint 30 GM Tube TOPICAL SCH (09:22)
--- NOTE | 2018-05-21 11:50 | P.PNFP ---
Subjective Interval history: Patient seen and examined today. Reports continued pain in his right leg. No significant pain in his foot. Denies nausea, vomiting, fever , chills, abdominal pain, chest pain, shortness of breath, lightheadedness, dizziness. No acute events overnight. No other complaints today. Patient was more receptive to having a potential BKA today. <Saji Richard - 05/21/18 15:07> Results - Labs Result diagrams: 05/20/18 05:40 05/21/18 04:20 <Pedro Shay - 05/22/18 14:26> Abnormal lab results 05/21/18 05/21/18 05/22/18 Range/Units 17:03 23:15 07:47 POC Glucose 140 H 213 H 113 H (68-110) mg/dl 05/22/18 Range/Units 11:47 POC Glucose 112 H (68-110) mg/dl <Pedro Shay - 05/22/18 14:26> Abnormal lab results 05/20/18 05/20/18 05/21/18 Range/Units 12:40 19:45 04:20 Creatinine 0.49 L (0.60-1.30) mg/dL POC Glucose 172 H 177 H (68-110) mg/dl 05/21/18 Range/Units 09:13 Creatinine (0.60-1.30) mg/dL POC Glucose 137 H (68-110) mg/dl BMP 05/21/18 04:20 Creatinine 0.49 L <Saji Richard - 05/21/18 11:50> Physical Exam Vital signs: Vital Signs 05/21/18 16:00 05/21/18 19:45 05/21/18 19:53 Temperature 97.6 F 97.5 F L Pulse Rate 59 L 62 Respiratory Rate 20 18 16 Blood Pressure 160/70 H 136/61 Pulse Oximetry 99 98 05/21/18 23:58 05/22/18 00:00 05/22/18 03:54 Temperature 97.9 F Pulse Rate 63 64 58 L Respiratory Rate 20 Blood Pressure 124/58 L Pulse Oximetry 97 05/22/18 04:00 05/22/18 08:00 05/22/18 12:00 Temperature 98.8 F 97.9 F 97.3 F L Pulse Rate 68 53 L 58 L Respiratory Rate 20 16 18 Blood Pressure 133/63 111/58 L 105/56 L Pulse Oximetry 99 97 96 05/22/18 12:03 Temperature Pulse Rate Respiratory Rate 20 Blood Pressure Pulse Oximetry Intake & Output 05/21/18 05/22/18 05/22/18 18:59 06:59 18:59 Intake Total 1083 / 1083 540 / 540 Output Total 1300 / 1300 2700 / 2700 Balance -217 / -217 -2160 / -2160 Weight 75.5 kg Intake: IV 363 / 363 200 / 200 Zerbaxa Inj 1,500 MG In NS Inj 100 / 100 200 / 200 100 ML @ 100 mls/hr IV.SIG Q8H [facility] Rx#:[id number] Vancomycin Inj 1,250 MG In NS 263 / 263 Inj 250 ML @ 250 mls/hr IV.SIG Q24H ACE Rx#:[id number] Oral 720 / 720 340 / 340 Output: Urine 1300 / 1300 2700 / 2700 Other: # Bowel Movements 1 # Incontinent Bowel Movements 1 <Pedro Shay - 05/22/18 14:26> Vital Signs 05/20/18 12:00 05/20/18 16:00 05/20/18 17:27 Temperature 97.7 F 97.7 F Pulse Rate 61 54 L Respiratory Rate 16 16 Blood Pressure 121/60 110/55 L Pulse Oximetry 98 98 98 05/20/18 20:00 05/21/18 00:00 05/21/18 04:00 Temperature 97.9 F 97.6 F 97.4 F L Pulse Rate 58 L 62 61 Respiratory Rate 18 18 18 Blood Pressure 99/68 L 127/58 L 128/60 Pulse Oximetry 97 95 98 05/21/18 08:00 05/21/18 08:26 Temperature 97.6 F Pulse Rate 55 L Respiratory Rate 20 Blood Pressure 135/64 Pulse Oximetry 95 98 Intake & Output 05/20/18 05/21/18 05/21/18 18:59 06:59 18:59 Intake Total 1083 / 1083 410 / 410 Output Total 1000 / 1000 1000 / 1000 Balance 83 / 83 -590 / -590 Weight 74.9 kg Intake: IV 363 / 363 200 / 200 Zerbaxa Inj 1,500 MG In NS Inj 100 / 100 200 / 200 100 ML @ 100 mls/hr IV.SIG Q8H [facility] Rx#:[id number] Vancomycin Inj 1,250 MG In NS 263 / 263 Inj 250 ML @ 250 mls/hr IV.SIG Q24H [facility] Rx#:[id number] Oral 720 / 720 210 / 210 Output: Urine 1000 / 1000 1000 / 1000 Other: Date of Last Bowel Movement 05/19/18 # Bowel Movements 2 <Saji Richard - 05/21/18 11:50> Narrative: General: Cachectic elderly male, alert, and in no acute distress. Oriented to person and place. HEENT: Atraumatic, non-icteric sclera and no conjunctival injection, moist mucous membranes Neck: Supple, non-tender without masses or lymphadenopathy, trachea midline, no JVD Cardiac: Regular rate and rhythm Pulmonary: Non-labored breathing. Lungs clear to auscultation bilaterally with good air movement Abdomen: Normal bowel sounds, soft and non-tender without rebound or guarding Extremities: No edema, right lower extremity is cool to the touch. He has poor sensation. Atrophic muscular changes in both legs bilaterally. Patient able to move toes bilaterally. Necrotic tip of the right first toe, necrosis to the MTP joint of the second toe, and increasingly dusky appearance of the third toe. There is also a small area of necrosis on the plantar surface of the foot. Dressings are in place over the wounds on the heels and are clean dry and intact. <Saji Richard 05/21/18 15:07> - Urinary Catheter Management Condom Cath placed during this visit: no <Pedro Shay - 05/22/18 14:26> no <Saji Richard 05/21/18 15:07> Reason for continuing: Not indwelling catheter <Saji Richard 05/21/18 11 :50> Indwelling Urethral Catheter Cath placed during this visit: no <Pedro Shay - 05/22/18 14:26> yes, but has since been removed by the nurse <Saji Richard 05/21/18 15:07> Reason for continuing: Not indwelling catheter <Saji Richard 05/21/18 11 :50> Insertion date: 04/11/18 <Saji Richard 05/21/18 11:50> Insertion time: 21:08 <Saji Richard 05/21/18 11:50> Removal date: 04/12/18 <Saji Richard - 05/21/18 11:50> Removal time: 11:35 <Saji Richard - 05/21/18 11:50> Straight Cath placed during this visit: no <Pedro Shay - 05/22/18 14:26> yes <Saji Richard - 05/21/18 15:07> Reason for continuing: Other continuation reason <Saji Richard - 05/21/18 11:50> Insertion date: 04/11/18 <Saji Richard - 05/21/18 11:50> Insertion time: 21:08 <Saji Richard - 05/21/18 11:50> Assessment and Plan - Assessment (1) Osteomyelitis of ankle Code(s): M86.9 - Osteomyelitis, unspecified Status: Acute (2) Ischemia of foot Code(s): I99.8 - Other disorder of circulatory system Status: Acute (3) Anemia Code(s): D64.9 - Anemia, unspecified Status: Acute (4) Infection associated with internal hip prosthesis Code(s): T84.59XA - Infection and inflammatory reaction due to other internal joint prosthesis, initial encounter; Z96.649 - Presence of unspecified artificial hip joint Status: Acute (5) Chronic wound of extremity Status: Chronic (6) MRSA (methicillin resistant staph aureus) culture positive Code(s): Z22.322 - Carrier or suspected carrier of Methicillin resistant Staphylococcus aureus Status: Acute (7) PAD (peripheral artery disease) Code(s): I73.9 - Peripheral vascular disease, unspecified Status: Chronic (8) Bandemia Code(s): D72.825 - Bandemia Status: Resolved (9) Hydronephrosis Code(s): N13.30 - Unspecified hydronephrosis Status: Resolved (10) HTN (hypertension) Code(s): I10 - Essential (primary) hypertension Status: Acute (11) Diabetes Code(s): E11.9 - Type 2 diabetes mellitus without complications Status: Acute (12) Malnutrition Code(s): E46 - Unspecified protein-calorie malnutrition Status: Acute (13) Anisocoria Code(s): H57.02 - Anisocoria Status: Acute (14) Suicidal ideation Code(s): R45.851 - Suicidal ideations Status: Acute (15) Nutrition, metabolism, and development symptoms Code(s): R63.8 - Other symptoms and signs concerning food and fluid intake Status: Acute <Pedro Shay - 05/22/18 14:26> (1) Osteomyelitis of ankle Code(s): M86.9 - Osteomyelitis, unspecified Status: Acute Plan: Osteomyelitis of right ankle, culture positive for MRSA of right thigh wound. Wound culture of right ankle shows Pseudomonas and multidrug resistant Proteus as well as group D enterococcus. Patient more willing to consider BKA. -Bcx NGTD -Wound on the right ankle still has significant purulence Vascular surgery consulted * s/p CREATIVE RECRUITER of popliteal stenosis on 04/24 * Anterior tibial, posterior tibia and peritoneal artery occluded Lower extremity pulses appreciated Via Doppler. Right popliteal pulse appreciated on exam -Balloon angioplasty and atherectomy 05/15 ID consulted, appreciate recs * Continue vancomycin--until Jun 07, 6 weeks after hardware removal for the R hip * Continue Zerbaxa--for the heel ulcer and osteo due to resistance of organisms Wound care consulted, appreciate recs * See note from 04/25 * follow recommendations * Pain management with [facility] scheduled, gabapentin, morphine for breakthrough pain Podiatry history; * plan for patient to have calcanectomy on 04/26 however due to patient's inability to recall presurgery discussion when seen by podiatry the morning of 04/26 Dr. Urena will no longer be performing calcanectomy procedure. * Recommends: betadine wet to dry daily and if foot/heel becomes acutely infected rec as patient is unable to care for himself or able to mentally process limb salvage procedure options. In addition, the likelihood of failure was already high due to the low vascularity to the right lower limb. * Podiatry has signed off. * Discussed option of below-knee amputation of right lower extremity and Patient still not interested (2) Ischemia of foot Code(s): I99.8 - Other disorder of circulatory system Status: Acute Plan: Patient with developing ischemia of right 1st, 2nd toe, and 3rd. Vascular surgery reconsulted. -Balloon angioplasty and arthrectomy 05/15 -Patient more willing to consider BKA, follow up vascular recommendations (3) Anemia Code(s): D64.9 - Anemia, unspecified Status: Acute Plan: On admission found to have hemoglobin of 6.6, status post 2 units RBCs transfused. Had tarry stools, endoscopy and colonoscopy benign other than small ulcer in rectum. Hemoglobin stable, will continue to monitor (4) Infection associated with internal hip prosthesis Code(s): T84.59XA - Infection and inflammatory reaction due to other internal joint prosthesis, initial encounter; Z96.649 - Presence of unspecified artificial hip joint Status: Acute Plan: Found to have right hip prosthesis infection. Irrigation, debridement, hardware removal and placement of antibiotic beads (04/27). -Orthopedics consulted and they recommended 2-week follow-up -Antibiotics per ID for chronic osteomyelitis (5) Chronic wound of extremity Status: Chronic Plan: Patient currently follows up with wound care as an outpatient Wound management: Right hip wound, super absorbant dressing daily Skin tear lower left extremity, Santyl covered and dry dressing daily Right heel wound, apply gentamicin cream twice daily, see above plan for associated osteomyelitis Wound care consulted, appreciate recommendations * Cleanse wound to R Achilles heel with normal saline only and pat dry. Apply gentamicin mixed with Santyl 50/ 50 and apply to wound bed * Cover with ABD pad, and secure with rolled gauze and tape. Change dressing daily, until seen by podiatry. * Cleanse wound to R hip see updated note from 04/25 and follow ortho rec for dressing * Cleanse wound to L posterior lower leg with normal saline and pat dry. Apply optifoam gentle 4x4 dressing change dressing every 3 days or PRN if saturated or dislodged. * Sacral wound: -Please cleanse sacral area gently with Remedy barrier wipes and pat dry. Apply Cavilon skin barrier film spray to sacral area BID and PRN and leave open to air. -Turn and reposition patient every 2 hours from L to R side limiting time spent on back to P.T. and meals -Patient placed on low airloss bed/ mattress -Will try to get in contact with wound care for re-evaluation of sacral wound , stable on exam -Wound care was reconsulted yesterday because we would like the wound care physician to examine his wound to the right heel. (6) MRSA (methicillin resistant staph aureus) culture positive Code(s): Z22.322 - Carrier or suspected carrier of Methicillin resistant Staphylococcus aureus Status: Acute Plan: This patient suffers from chronic nonhealing wounds likely secondary to peripheral arterial disease and DM. Patient had wound from right thigh cultured which ultimately grew MRSA. -Monitor for fevers and signs of systemic illness -Antibiotic therapy as above (7) PAD (peripheral artery disease) Code(s): I73.9 - Peripheral vascular disease, unspecified Status: Chronic Plan: s/p recent right LE arterectomy. s/p vascular procedure as above on 04/24 (8) Bandemia Code(s): D72.825 - Bandemia Status: Resolved Plan: Resolved, likely due to osteomyelitis. See above plan. (9) Hydronephrosis Code(s): N13.30 - Unspecified hydronephrosis Status: Resolved Plan: Left hydronephrosis and hydroureter without obstruction on CT (04/11). Currently voiding well, no CVA tenderness. UA (-)04/26. Not noted on CT on . - Continue to monitor I's and O's. (10) HTN (hypertension) Code(s): I10 - Essential (primary) hypertension Status: Acute Plan: Continue Cardizem and amiodarone (11) Diabetes Code(s): E11.9 - Type 2 diabetes mellitus without complications Status: Acute Plan: Hx of DM -Held home glipizide, Januvia -Accu-Cheks -Low-dose sliding scale -Hypoglycemia protocol in place (12) Malnutrition Code(s): E46 - Unspecified protein-calorie malnutrition Status: Acute Plan: This patient appears thin and possibly malnourished. Patient has significant muscle atrophy in arms and legs that are partially consistent with age and lack of activity. 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 Patient unsure of specific cause or diagnoses. Can follow up with Ophthalmology outpatient as needed (14) Suicidal ideation Code(s): R45.851 - Suicidal ideations Status: Acute Plan: Nurse reported that patient expressed fluctuating suicidal ideation and refusal of taking his medications om 05/11. His mood improved later on in the morning. Denies SI/HI -Citalopram 10 mg daily -Continue to assess status (15) Nutrition, metabolism, and development symptoms Code(s): R63.8 - Other symptoms and signs concerning food and fluid intake Status: Acute Plan: Fluids: per PO Diet: Diabetic supplements with protein shake Electrolytes: monitor and replete as needed DVT prophylaxis: Contraindicated due to upper GI bleed <Saji Richard - 05/21/18 15:01> - Attending Attestation See the residents documentation for details. I saw and evaluated the patient regarding the ford portions of this evaluation and agree with the residents findings and plans as written. Parts of this note were created using [employer] voice recognition software program. While efforts were made to correct any mistakes made by this software, some mistakes, errors, and omissions may remain in the final note that were not caught when the note was originally created. Plan of care was discussed and agreed upon with the patient as specifically documented in the above note. An opportunity to ask questions with explanation was provided. Patient voiced understanding on all information reviewed and discussed. <Pedro Shay - 05/22/18 14:26> <Saji Richard - Last Filed: 05/21/18 15:01> (1) Osteomyelitis of ankle Qualifiers: Osteomyelitis type: other chronic Laterality: right Qualified Code(s): M86.671 - Other chronic osteomyelitis, right ankle and foot (9) Hydronephrosis Qualifiers: Hydronephrosis type: unspecified Qualified Code(s): N13.30 - Unspecified hydronephrosis <Pedro Shay - Last Filed: 05/22/18 14:26> (1) Osteomyelitis of ankle Qualifiers: Osteomyelitis type: other chronic Laterality: right Qualified Code(s): M86.671 - Other chronic osteomyelitis, right ankle and foot (9) Hydronephrosis Qualifiers: Hydronephrosis type: unspecified Qualified Code(s): N13.30 - Unspecified hydronephrosis <Saji Richard - Last Filed: 05/21/18 15:01> (1) Osteomyelitis of ankle Qualifiers: Osteomyelitis type: other chronic Laterality: right Qualified Code(s): M86.671 - Other chronic osteomyelitis, right ankle and foot (9) Hydronephrosis Qualifiers: Hydronephrosis type: unspecified Qualified Code(s): N13.30 - Unspecified hydronephrosis <Pedro Shay - Last Filed: 05/22/18 14:26> (1) Osteomyelitis of ankle Qualifiers: Osteomyelitis type: other chronic Laterality: right Qualified Code(s): M86.671 - Other chronic osteomyelitis, right ankle and foot (9) Hydronephrosis Qualifiers: Hydronephrosis type: unspecified Qualified Code(s): N13.30 - Unspecified hydronephrosis
[2018-05-21] MEDS: Vancomycin Inj 1,250 MG in Sodium Chlor 0.9% Inj 250 ML IV.SIG SCH (15:29)
--- NOTE | 2018-05-21 16:08 | P.PNPAL ---
Reason for Visit Reason for visit: a. To assist with evaluation and management of symptoms including: Pain, weakness b. To assist medical decision maker(s) with: better understanding of current medical conditions; weighing benefits/burdens of medical treatment options; making medical treatment decisions. Subjective Subjective/Interval History: This is an 87-year-old male transferred from the nursing facility on 04/11 to the emergency department for low hemoglobin. The patient had just been seen by Dr. Oliva and had undergone arteriogram with lower extremity angiogram, right SFA and popliteal atherectomy to the right lower extremity. He was found to be confused, aware only of his name and that he was at the hospital. Patient is seen today for follow-up of symptom management for pain and weakness and to assist family in goals of medical treatment. He continues to complain of right foot pain, moderate today. He is receiving [place] 10/325 4-5 times daily. The foot shows ischemic changes on the great, second and third toes. There are no exacerbating or relieving factors. He has undergone several peripheral vascular procedures to enhance blood flow. 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 Wound bed presents with approximately 20% mueller colored exposed tendon, approximately 40% yellow loosely adherent slough, 10% purple tissue and 30% red hypergranulation with minimal villagomez /green drainage and a foul odor. He is generally weak at baseline, worsened by his extended hospital stay with bedbound status. He is nonweightbearing on the right foot due to the severity of the wound on his heel. At his most recent physical therapy done in the hospital for [id number], he was able to perform active to active assisted range of motion supine, transfer to bedside chair with moderate to maximum assistance with a recommendation of PT at rehab. While patient is legally incapacitated, he is able to converse and is interested in his progress. He does believe that he is able to make his own decisions, however he has been judged incapacitated and his daughter Ewa is his legal guardian. In discussions about treatment of his foot wounds and discomfort, BKA was mentioned and after some discussion, he states that he would agree to amputation and felt that he could use a prosthesis and a cane. Family is still considering their options regarding amputation versus conservative therapy. . Family/Friend Interactions: No family is at bedside. . Advance Directives Living Will: Completed, but not made available Health Care Surrogate: Completed, but not made available Durable Power of Warrant Server: Completed, but not made available Objective Vital Signs: Vital Signs 05/20/18 16:00 05/20/18 17:27 05/20/18 20:00 Temperature 97.7 F 97.9 F Pulse Rate 54 L 58 L Respiratory Rate 16 18 Blood Pressure 110/55 L 99/68 L Pulse Oximetry 98 98 97 05/21/18 00:00 05/21/18 04:00 05/21/18 08:00 Temperature 97.6 F 97.4 F L 97.6 F Pulse Rate 62 61 55 L Respiratory Rate 18 18 20 Blood Pressure 127/58 L 128/60 135/64 Pulse Oximetry 95 98 95 05/21/18 08:26 05/21/18 12:00 Temperature 98.0 F Pulse Rate 57 L Respiratory Rate 20 Blood Pressure 130/69 Pulse Oximetry 98 97 Intake & Output 05/20/18 05/21/18 05/21/18 18:59 06:59 18:59 Intake Total 1083 / 1083 410 / 410 Output Total 1000 / 1000 1000 / 1000 Balance 83 / 83 -590 / -590 Weight 165 lb 2.02 oz Intake: IV 363 / 363 200 / 200 Zerbaxa Inj 1,500 MG In NS Inj 100 / 100 200 / 200 100 ML @ 100 mls/hr IV.SIG Q8H ACE Rx#:[id number] Vancomycin Inj 1,250 MG In NS 263 / 263 Inj 250 ML @ 250 mls/hr IV.SIG Q24H ACE Rx#:[id number] Oral 720 / 720 210 / 210 Output: Urine 1000 / 1000 1000 / 1000 Other: Date of Last Bowel Movement 05/19/18 # Bowel Movements 2 Physical Exam: CONSTITUTIONAL/GENERAL: This is elderly, cachectic male patient, in no apparent distress. TUBES/LINES/DRAINS: PIV SKIN: Scattered ecchymosis on upper and lower extremities, skin is dry with purpling on right second and third toes, right great toe, multiple abrasions and wounds on feet and ankles bilaterally, large ecchymotic right heel decubitus , dressed CDI. HEAD: Atraumatic. Normocephalic. EYES: Left pupil 4 mm and oblong from previous traumatic injury, right pupil 2 mm and reactive, extraocular motions intact. No scleral icterus. No injection or drainage. Fundi not examined. CARDIOVASCULAR: Regular rate and rhythm with 2/6 systolic ejection murmurs, no gallops, or rubs. No JVD. Peripheral pulses symmetric. RESPIRATORY/CHEST: Symmetric, unlabored respirations. Clear to auscultation. Breath sounds equal bilaterally. No wheezes, rales, or rhonchi. GASTROINTESTINAL: Abdomen soft, non-tender, nondistended. No hepato-splenomegaly , or palpable masses. No guarding. Bowel sounds present. GENITOURINARY: Without palpable bladder distension. MUSCULOSKELETAL: Extremities without clubbing, cyanosis, or edema. No joint tenderness or effusion noted. NEUROLOGICAL: Awake and alert. Generalized weakness. Follows commands. Cognitively he is pleasantly confused. Moves all extremities but has difficulty with bilateral lower extremities right greater than left secondary to pain. PSYCHIATRIC: No obvious anxiety/depression. no apparent hallucinations or other psychotic thought process. . Diagnostic Tests Laboratory: Laboratory Results - last 72 hr 05/18/18 05/18/18 05/19/18 17:36 19:18 06:05 WBC RBC Hgb Hct MCV MCH MCHC RDW Plt Count MPV Sodium Potassium Chloride Carbon Dioxide Anion Gap BUN Creatinine 0.55 L Estimated GFR Greater than 89 POC Glucose 135 H 149 H Random Glucose Calcium Vancomycin Trough 05/19/18 05/19/18 05/19/18 07:44 12:11 16:10 WBC RBC Hgb Hct MCV MCH MCHC RDW Plt Count MPV Sodium Potassium Chloride Carbon Dioxide Anion Gap BUN Creatinine Estimated GFR POC Glucose 141 H 156 H Random Glucose Calcium Vancomycin Trough 12.1 H 05/19/18 05/19/18 05/20/18 17:19 19:35 05:40 WBC 8.9 RBC 2.86 L Hgb 8.8 L Hct 26.2 L MCV 91.6 MCH 30.7 MCHC 33.5 RDW 22.2 H Plt Count 344 MPV 7.2 Sodium Potassium Chloride Carbon Dioxide Anion Gap BUN Creatinine Estimated GFR POC Glucose 186 H 162 H Random Glucose Calcium Vancomycin Trough 05/20/18 05/20/18 05/20/18 05:40 08:28 12:40 WBC RBC Hgb Hct MCV MCH MCHC RDW Plt Count MPV Sodium 128 L Potassium 4.5 Chloride 95 L Carbon Dioxide 25.8 Anion Gap 7 BUN 14 Creatinine 0.59 L Estimated GFR Greater than 89 POC Glucose 166 H 172 H Random Glucose 139 H Calcium 7.8 L Vancomycin Trough 05/20/18 05/20/18 05/21/18 15:54 19:45 04:20 WBC RBC Hgb Hct MCV MCH MCHC RDW Plt Count MPV Sodium Potassium Chloride Carbon Dioxide Anion Gap BUN Creatinine 0.49 L Estimated GFR Greater than 89 POC Glucose 82 177 H Random Glucose Calcium Vancomycin Trough 05/21/18 05/21/18 09:13 12:43 WBC RBC Hgb Hct MCV MCH MCHC RDW Plt Count MPV Sodium Potassium Chloride Carbon Dioxide Anion Gap BUN Creatinine Estimated GFR POC Glucose 137 H 127 H Random Glucose Calcium Vancomycin Trough Result Diagrams: 05/20/18 05:40 05/21/18 04:20 Microbiology: Microbiology 04/27/18 12:43 Acid Fast Bacilli Smear - Final Wound - Thigh No acid fast bacilli seen Mycobacterial Culture - Preliminary No growth in 3 weeks 04/27/18 12:43 Fungal Smear - Final Wound - Thigh No fungal elements seen Fungal Culture - Preliminary No growth in 3 weeks Imaging: ITS Impressions Head CT 04/11/18 11:59 CONCLUSION: 1. Stable appearance of the brain. . Ankle MRI 04/15/18 00:00 CONCLUSION: 1. Osteomyelitis of the posterior calcaneus with a near complete tear of the distal Achilles tendon. There is overlying cellulitis and subcutaneous edema with a small abscess adjacent to the distal Achilles tendon as measured above. There is edematous change on the plantar aspect of the foot with a tenosynovitis as above. No acute fracture identified. Mild bone edema tibia, nonspecific. Ankle X-Ray 04/15/18 00:00 CONCLUSION: Osteomyelitis of the posterior calcaneus with overlying soft tissue swelling and ulceration. No acute fracture. Femur MRI 04/25/18 00:00 CONCLUSION: 1. 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 The collection appears to communicate with the prosthetic component in the proximal femur. 2. Edematous changes are noted along the vastus lateralis and iliotibial band. Hip X-Ray 04/27/18 00:00 CONCLUSION: Hardware removal on the right. Abdomen/Pelvis CT 04/30/18 10:28 Review of bone windows reveals moderate degenerative changes in the lumbar spine and both SI joints. CONCLUSION: 1. Large bolus of stool in the rectum with stool throughout the colon suggesting constipation with possible impaction 2. Prominent gallbladder without stones 3. 2 nonobstructing stones in the left kidney. Procedures: 04/14: Colonoscopy 04/19: Endoscopy 04/24: Right lower extremity angiogram, right popliteal MANAGER IMMUNOLOGY. 04/27: Removal of hardware right femur, Synthes TFN, irrigation and debridement of skin, subcu tissue, muscle and bone with insertion of Stimulan and antibiotic beads spacer. Assessment and Plan Pertinent Non-Medical Issues: Psychosocial: He was born in [place] and retired from [employer]. He has been twice and is now . He has 2 children that live in [facility]. His daughter Ewa is his healthcare decision maker. Spiritual: Manager Client Service available. Legal: Has an elder care sap bods developer, Rubin Sequeira Ethical issues impacting care: Patient is confused. . Important Contacts: Daughter: Ewa Tovar ([facility]) [phone] client coordinator: Kyleigh Landa (HIPPA release on chart for her to receive info) Warrant Server: Rubin Sequeira Prognosis: His prognosis is guarded. He is of advanced age with multiple comorbidities. He has several chronic nonhealing wounds, severe peripheral artery disease and a large calcaneal ulcer on his right heel. He has a draining wound on his right hip and is at elevated risk for continued infections, complications, possible loss of limb, sepsis and even . He is currently refusing amputation of the right foot but has poor insight, is confused and does not appear to have capacity to make that decision. Contact being established with patient's day care attendant and daughter to clarify goals however, decreased vascularity to his periphery raises his risk of continued infection and failure regardless of the decision to amputate or not. . Code Status: No Code DNR Plan: PLAN: Legal decision maker: Patient is not capacitated for decision-making. His daughter Ewa has been designated as his healthcare proxy and she lives in [facility] [place]. To that end she has hired a local day care attendant, Kyleigh Landa, to assist her in decision-making. Goals: To be determined. CODE STATUS: DO NOT RESUSCITATE SYMPTOMS: * Pain: He complains of pain in the right foot and heel, worse with movement, intermittent, stabbing with no relieving factors except lying still and opioids. He is receiving hydrocodone/acetaminophen/10/325 every 4 hours as needed and gabapentin 600 mg 3 times daily. He is taking an average of 4-6 [place] tablets daily. He remains painful after atherectomy and angioplasty. Although not capacitated for decision-making, he states he would consider amputation. Awaiting decision from his daughter who is the guardian. * Weakness: He is generally weak but was reportedly somewhat ambulatory with assistance at [facility], per the guardian. Given the wounds on his heel, progressive ischemia of the second toe and prolonged hospitalization, he would likely not walk again with or without BKA. Family is considering going forward with amputation as the patient states he would now consider it. It should be noted, that the patient is legally been declared incapacitated for healthcare decision making. The family is, however, considering his wishes in their decisions. Palliative care will continue to follow the patient during hospital course as condition evolves, to assist patient/decision-maker with understanding of their medical conditions, weighing benefits/burdens of treatment options, for clarification of goals of treatment. Additionally will assist with any symptoms of palliative concern. . Attestation Attestation: To help prompt me to consider important information that might be impacting today's encounter and assessment, information from prior notes written by myself or my colleagues may have been "brought forward" into today's note. My signature on this note, however, is an attestation that I personally performed the exam, history, and/or decision-making noted today, and, unless otherwise indicated, the interactions with patient, family, and staff as well as the review of records all occurred today. I also attest that the listed assessment and stated plan reflect my best clinical judgment today based on the combination of historical information, prior notes, and today's exam/ interactions. When time spent is documented, it refers only to time spent today by the signer, or if indicated, combined time spent today by collaborating physician/nurse practitioner. .
--- NOTE | 2018-05-21 16:41 | P.PNVS ---
Subjective Subjective/Hospital Course: report right foot pain Objective Vital Signs / I&O: Vital Signs 05/20/18 17:27 05/20/18 20:00 05/21/18 00:00 Temperature 97.9 F 97.6 F Pulse Rate 58 L 62 Respiratory Rate 18 18 Blood Pressure 99/68 L 127/58 L Pulse Oximetry 98 97 95 05/21/18 04:00 05/21/18 08:00 05/21/18 08:26 Temperature 97.4 F L 97.6 F Pulse Rate 61 55 L Respiratory Rate 18 20 Blood Pressure 128/60 135/64 Pulse Oximetry 98 95 98 05/21/18 12:00 Temperature 98.0 F Pulse Rate 57 L Respiratory Rate 20 Blood Pressure 130/69 Pulse Oximetry 97 Intake & Output 05/20/18 05/21/18 05/21/18 18:59 06:59 18:59 Intake Total 1083 / 1083 410 / 410 363 / 363 Output Total 1000 / 1000 1000 / 1000 Balance 83 / 83 -590 / -590 363 / 363 Weight 74.9 kg Intake: IV 363 / 363 200 / 200 363 / 363 Zerbaxa Inj 1,500 MG In NS Inj 100 / 100 200 / 200 100 / 100 100 ML @ 100 mls/hr IV.SIG Q8H ACE Rx#:[id number] Vancomycin Inj 1,250 MG In NS 263 / 263 263 / 263 Inj 250 ML @ 250 mls/hr IV.SIG Q24H ACE Rx#:[id number] Oral 720 / 720 210 / 210 Output: Urine 1000 / 1000 1000 / 1000 Other: Date of Last Bowel Movement 05/19/18 # Bowel Movements 2 Physical Exam: necrotic right 1st, 2nd , 4d toes. non healing right heal wound Laboratory Results - last 24 hr 05/20/18 05/21/18 05/21/18 19:45 04:20 09:13 Creatinine 0.49 L Estimated GFR Greater than 89 POC Glucose 177 H 137 H 05/21/18 12:43 Creatinine Estimated GFR POC Glucose 127 H Assessment and Plan - Plan RLE CLI with tissue loss Status post right lower extreme angiogram, atherectomy and balloon angioplasty of the right peroneal artery. Right foot wounds not healing and patient remains in pain Will need right BKA patient now agrees to amputation I attempted to contact gradient to obtain consent but was unsuccessful. will re-attempt tomorrow Saji Tomlin MD [facility] [phone]
[2018-05-22] MEDS: SODIUM CHLOR 0.9% IV.SIG SCH ×3 (05:38→22:20)
[2018-05-22] MEDS: CEFTOLOZANE IV.SIG SCH ×3 (05:38→22:20)
[2018-05-22] MEDS: TAZOBACTAM IV.SIG SCH ×3 (05:38→22:20)
[2018-05-22] MEDS: Levothyroxine 125 MCG Tablet PO SCH (05:41)
[2018-05-22] MEDS: Insulin NovoLOG Aspart Correctional Sugar Inj SQ SCH ×4 (08:49→20:12)
[2018-05-22] MEDS: Potassium Phos/Sodium Phos 250 MG Tablet PO SCH ×4 (08:53→20:13)
[2018-05-22] MEDS: Ascorbic Acid 500 MG Tablet PO SCH ×2 (08:53→20:13)
[2018-05-22] MEDS: Citalopram 20 MG Tablet PO SCH (08:53)
[2018-05-22] MEDS: Docusate Sodium 100 MG Capsule PO SCH ×2 (08:54→20:14)
[2018-05-22] MEDS: Gabapentin 300 MG Capsule PO SCH ×3 (08:54→18:00)
[2018-05-22] MEDS: Amiodarone 200 MG Tablet PO SCH (08:54)
[2018-05-22] MEDS: Ferrous Sulfate 325 MG Tablet PO SCH ×3 (08:54→18:00)
[2018-05-22] MEDS: Sodium Chloride 1 GM Tablet PO SCH ×3 (08:55→18:00)
[2018-05-22] MEDS: Polyethylene Glycol 3350 17 GM Packet PO SCH (08:55)
[2018-05-22] MEDS: Magnesium Oxide 400 MG Tablet PO SCH ×4 (09:05→20:13)
--- NOTE | 2018-05-22 11:44 | P.PNFP ---
Subjective Interval history: Patient seen and examined today. Reports continued pain in his right leg. No significant pain in his foot. Denies nausea, vomiting, fever , chills, abdominal pain, chest pain, shortness of breath, lightheadedness, dizziness. No acute events overnight. No other complaints today. Patient was questioning having a BKA performed when prompted. Could not adequately express his current medical condition, or risks and benefits. <Saji Richard - 05/22/18 11:43> Results - Labs Result diagrams: 05/20/18 05:40 05/21/18 04:20 <Pedro Shay - 05/22/18 14:37> Abnormal lab results 05/21/18 05/21/18 05/22/18 Range/Units 17:03 23:15 07:47 POC Glucose 140 H 213 H 113 H (68-110) mg/dl 05/22/18 Range/Units 11:47 POC Glucose 112 H (68-110) mg/dl <Pedro Shay - 05/22/18 14:37> Abnormal lab results 05/21/18 05/21/18 05/21/18 Range/Units 12:43 17:03 23:15 POC Glucose 127 H 140 H 213 H (68-110) mg/dl 05/22/18 Range/Units 07:47 POC Glucose 113 H (68-110) mg/dl <Saji Richard - 05/22/18 11:43> Physical Exam Vital signs: Vital Signs 05/21/18 16:00 05/21/18 19:45 05/21/18 19:53 Temperature 97.6 F 97.5 F L Pulse Rate 59 L 62 Respiratory Rate 20 18 16 Blood Pressure 160/70 H 136/61 Pulse Oximetry 99 98 05/21/18 23:58 05/22/18 00:00 05/22/18 03:54 Temperature 97.9 F Pulse Rate 63 64 58 L Respiratory Rate 20 Blood Pressure 124/58 L Pulse Oximetry 97 05/22/18 04:00 05/22/18 08:00 05/22/18 12:00 Temperature 98.8 F 97.9 F 97.3 F L Pulse Rate 68 53 L 58 L Respiratory Rate 20 16 18 Blood Pressure 133/63 111/58 L 105/56 L Pulse Oximetry 99 97 96 05/22/18 12:03 Temperature Pulse Rate Respiratory Rate 20 Blood Pressure Pulse Oximetry Intake & Output 05/21/18 05/22/18 05/22/18 18:59 06:59 18:59 Intake Total 1083 / 1083 540 / 540 Output Total 1300 / 1300 2700 / 2700 Balance -217 / -217 -2160 / -2160 Weight 75.5 kg Intake: IV 363 / 363 200 / 200 Zerbaxa Inj 1,500 MG In NS Inj 100 / 100 200 / 200 100 ML @ 100 mls/hr IV.SIG Q8H ACE Rx#:[id number] Vancomycin Inj 1,250 MG In NS 263 / 263 Inj 250 ML @ 250 mls/hr IV.SIG Q24H ACE Rx#:[id number] Oral 720 / 720 340 / 340 Output: Urine 1300 / 1300 2700 / 2700 Other: # Bowel Movements 1 # Incontinent Bowel Movements 1 <Pedro Shay - 05/22/18 14:37> Vital Signs 05/21/18 12:00 05/21/18 16:00 05/21/18 19:45 Temperature 98.0 F 97.6 F Pulse Rate 57 L 59 L Respiratory Rate 20 20 18 Blood Pressure 130/69 160/70 H Pulse Oximetry 97 99 05/21/18 19:53 05/21/18 23:58 05/22/18 00:00 Temperature 97.5 F L 97.9 F Pulse Rate 62 63 64 Respiratory Rate 16 20 Blood Pressure 136/61 124/58 L Pulse Oximetry 98 97 05/22/18 03:54 05/22/18 04:00 05/22/18 08:00 Temperature 98.8 F 97.9 F Pulse Rate 58 L 68 53 L Respiratory Rate 20 16 Blood Pressure 133/63 111/58 L Pulse Oximetry 99 97 Intake & Output 05/21/18 05/22/18 05/22/18 18:59 06:59 18:59 Intake Total 1083 / 1083 540 / 540 Output Total 1300 / 1300 2700 / 2700 Balance -217 / -217 -2160 / -2160 Weight 75.5 kg Intake: IV 363 / 363 200 / 200 Zerbaxa Inj 1,500 MG In NS Inj 100 / 100 200 / 200 100 ML @ 100 mls/hr IV.SIG Q8H ACE Rx#:[id number] Vancomycin Inj 1,250 MG In NS 263 / 263 Inj 250 ML @ 250 mls/hr IV.SIG Q24H ACE Rx#:[id number] Oral 720 / 720 340 / 340 Output: Urine 1300 / 1300 2700 / 2700 Other: # Bowel Movements 1 # Incontinent Bowel Movements 1 <Saji Richard - 05/22/18 11:43> Narrative: General: Cachectic elderly male, alert, and in no acute distress. Oriented to person and place. HEENT: Atraumatic, non-icteric sclera and no conjunctival injection, moist mucous membranes Neck: Supple, non-tender without masses or lymphadenopathy, trachea midline, no JVD Cardiac: Regular rate and rhythm Pulmonary: Non-labored breathing. Lungs clear to auscultation bilaterally with good air movement Abdomen: Normal bowel sounds, soft and non-tender without rebound or guarding Extremities: No edema, right lower extremity is cool to the touch. He has poor sensation. Atrophic muscular changes in both legs bilaterally. Patient able to move toes bilaterally. Necrotic tip of the right first toe, necrosis to the MTP joint of the second toe, and increasingly dusky appearance of the third toe. There is also a small area of necrosis on the plantar surface of the foot. Dressings are in place over the wounds on the heels and are clean dry and intact. <Saji Richard - 05/22/18 11:43> - Urinary Catheter Management Condom Cath placed during this visit: no <Pedro Shay - 05/22/18 14:37> no <Saji Richard - 05/22/18 11:43> Reason for continuing: Not indwelling catheter <Saji Richard - 05/22/18 11 :43> Indwelling Urethral Catheter Cath placed during this visit: no <Pedro Shay - 05/22/18 14:37> yes, but has since been removed by the nurse <Saji Richard - 05/22/18 11:43> Reason for continuing: Not indwelling catheter <Saji Richard - 05/22/18 11 :43> Insertion date: 04/11/18 <Saji Richard 05/22/18 11:43> Insertion time: 21:08 <Saji Richard - 05/22/18 11:43> Removal date: 04/12/18 <Saji Richard - 05/22/18 11:43> Removal time: 11:35 <Saji Richard - 05/22/18 11:43> Straight Cath placed during this visit: no <Pedro Shay - 05/22/18 14:37> yes <Saji Richard - 05/22/18 11:43> Reason for continuing: Other continuation reason <Saji Richard - 05/22/18 11:43> Insertion date: 04/11/18 <Saji Richard - 05/22/18 11:43> Insertion time: 21:08 <Saji Richard - 05/22/18 11:43> Assessment and Plan - Assessment (1) Osteomyelitis of ankle Code(s): M86.9 - Osteomyelitis, unspecified Status: Acute (2) Ischemia of foot Code(s): I99.8 - Other disorder of circulatory system Status: Acute (3) Anemia Code(s): D64.9 - Anemia, unspecified Status: Acute (4) Infection associated with internal hip prosthesis Code(s): T84.59XA - Infection and inflammatory reaction due to other internal joint prosthesis, initial encounter; Z96.649 - Presence of unspecified artificial hip joint Status: Acute (5) Chronic wound of extremity Status: Chronic (6) MRSA (methicillin resistant staph aureus) culture positive Code(s): Z22.322 - Carrier or suspected carrier of Methicillin resistant Staphylococcus aureus Status: Acute (7) PAD (peripheral artery disease) Code(s): I73.9 - Peripheral vascular disease, unspecified Status: Chronic (8) Bandemia Code(s): D72.825 - Bandemia Status: Resolved (9) Hydronephrosis Code(s): N13.30 - Unspecified hydronephrosis Status: Resolved (10) HTN (hypertension) Code(s): I10 - Essential (primary) hypertension Status: Acute (11) Diabetes Code(s): E11.9 - Type 2 diabetes mellitus without complications Status: Acute (12) Malnutrition Code(s): E46 - Unspecified protein-calorie malnutrition Status: Acute (13) Anisocoria Code(s): H57.02 - Anisocoria Status: Acute (14) Suicidal ideation Code(s): R45.851 - Suicidal ideations Status: Acute (15) Nutrition, metabolism, and development symptoms Code(s): R63.8 - Other symptoms and signs concerning food and fluid intake Status: Acute <Pedro Shay - 05/22/18 14:37> (1) Osteomyelitis of ankle Code(s): M86.9 - Osteomyelitis, unspecified Status: Acute Plan: Osteomyelitis of right ankle, culture positive for MRSA of right thigh wound. Wound culture of right ankle shows Pseudomonas and multidrug resistant Proteus as well as group D enterococcus. Patient more willing to consider BKA. -Bcx NGTD Vascular surgery consulted * s/p [employer] of popliteal stenosis on 04/24 * Anterior tibial, posterior tibia and peritoneal artery occluded Lower extremity pulses appreciated Via Doppler. Right popliteal pulse appreciated on exam -Balloon angioplasty and atherectomy 05/15 ID consulted, appreciate recs * Continue vancomycin--until Jun 07, 6 weeks after hardware removal for the R hip * Continue Zerbaxa--for the heel ulcer and osteo due to resistance of organisms Wound care consulted, appreciate recs * See note from 04/25 * follow recommendations * Pain management with [facility] scheduled, gabapentin, morphine for breakthrough pain Podiatry history; * plan for patient to have calcanectomy on 04/26 however due to patient's inability to recall presurgery discussion when seen by podiatry the morning of 04/26 Dr. Urena will no longer be performing calcanectomy procedure. * Recommends: betadine wet to dry daily and if foot/heel becomes acutely infected rec as patient is unable to care for himself or able to mentally process limb salvage procedure options. In addition, the likelihood of failure was already high due to the low vascularity to the right lower limb. * Podiatry has signed off. * Discussed option of below-knee amputation of right lower extremity and Patient still not interested (2) Ischemia of foot Code(s): I99.8 - Other disorder of circulatory system Status: Acute Plan: Patient with developing ischemia of right 1st, 2nd toe, and 3rd. Vascular surgery reconsulted. -Balloon angioplasty and arthrectomy 05/15 -Patient more willing to consider BKA, follow up vascular recommendations (3) Anemia Code(s): D64.9 - Anemia, unspecified Status: Acute Plan: On admission found to have hemoglobin of 6.6, status post 2 units RBCs transfused. Had tarry stools, endoscopy and colonoscopy benign other than small ulcer in rectum. Hemoglobin stable, will continue to monitor (4) Infection associated with internal hip prosthesis Code(s): T84.59XA - Infection and inflammatory reaction due to other internal joint prosthesis, initial encounter; Z96.649 - Presence of unspecified artificial hip joint Status: Acute Plan: Found to have right hip prosthesis infection. Irrigation, debridement, hardware removal and placement of antibiotic beads (04/27). -Orthopedics consulted and they recommended 2-week follow-up -Antibiotics per ID for chronic osteomyelitis (5) Chronic wound of extremity Status: Chronic Plan: Patient currently follows up with wound care as an outpatient Wound management: Right hip wound, super absorbant dressing daily Skin tear lower left extremity, Santyl covered and dry dressing daily Right heel wound, apply gentamicin cream twice daily, see above plan for associated osteomyelitis Wound care consulted, appreciate recommendations * Cleanse wound to R Achilles heel with normal saline only and pat dry. Apply gentamicin mixed with Santyl 50/ 50 and apply to wound bed * Cover with ABD pad, and secure with rolled gauze and tape. Change dressing daily, until seen by podiatry. * Cleanse wound to R hip see updated note from 04/25 and follow ortho rec for dressing * Cleanse wound to L posterior lower leg with normal saline and pat dry. Apply optifoam gentle 4x4 dressing change dressing every 3 days or PRN if saturated or dislodged. * Sacral wound: -Please cleanse sacral area gently with Remedy barrier wipes and pat dry. Apply Cavilon skin barrier film spray to sacral area BID and PRN and leave open to air. -Turn and reposition patient every 2 hours from L to R side limiting time spent on back to P.T. and meals -Patient placed on low airloss bed/ mattress -Will try to get in contact with wound care for re-evaluation of sacral wound , stable on exam -Wound care was reconsulted yesterday because we would like the wound care physician to examine his wound to the right heel. (6) MRSA (methicillin resistant staph aureus) culture positive Code(s): Z22.322 - Carrier or suspected carrier of Methicillin resistant Staphylococcus aureus Status: Acute Plan: This patient suffers from chronic nonhealing wounds likely secondary to peripheral arterial disease and DM. Patient had wound from right thigh cultured which ultimately grew MRSA. -Monitor for fevers and signs of systemic illness -Antibiotic therapy as above (7) PAD (peripheral artery disease) Code(s): I73.9 - Peripheral vascular disease, unspecified Status: Chronic Plan: s/p recent right LE arterectomy. s/p vascular procedure as above on 04/24 (8) Bandemia Code(s): D72.825 - Bandemia Status: Resolved Plan: Resolved, likely due to osteomyelitis. See above plan. (9) Hydronephrosis Code(s): N13.30 - Unspecified hydronephrosis Status: Resolved Plan: Left hydronephrosis and hydroureter without obstruction on CT (04/11). Currently voiding well, no CVA tenderness. UA (-)04/26. Not noted on CT on . - Continue to monitor I's and O's. (10) HTN (hypertension) Code(s): I10 - Essential (primary) hypertension Status: Acute Plan: Continue Cardizem and amiodarone (11) Diabetes Code(s): E11.9 - Type 2 diabetes mellitus without complications Status: Acute Plan: Hx of DM -Held home glipizide, Januvia -Accu-Cheks -Low-dose sliding scale -Hypoglycemia protocol in place (12) Malnutrition Code(s): E46 - Unspecified protein-calorie malnutrition Status: Acute Plan: This patient appears thin and possibly malnourished. Patient has significant muscle atrophy in arms and legs that are partially consistent with age and lack of activity. 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 Patient unsure of specific cause or diagnoses. Can follow up with Ophthalmology outpatient as needed (14) Suicidal ideation Code(s): R45.851 - Suicidal ideations Status: Acute Plan: Nurse reported that patient expressed fluctuating suicidal ideation and refusal of taking his medications om 05/11. His mood improved later on in the morning. Denies SI/HI -Citalopram 10 mg daily -Continue to assess status (15) Nutrition, metabolism, and development symptoms Code(s): R63.8 - Other symptoms and signs concerning food and fluid intake Status: Acute Plan: Fluids: per PO Diet: Diabetic supplements with protein shake Electrolytes: monitor and replete as needed DVT prophylaxis: Contraindicated due to upper GI bleed <Saji Richard - 05/22/18 11:40> - Attending Attestation See the residents documentation for details. I saw and evaluated the patient regarding the ford portions of this evaluation and agree with the residents findings and plans as written. Parts of this note were created using [employer] recognition software program. While efforts were made to correct any mistakes made by this software, some mistakes, errors, and omissions may remain in the final note that were not caught when the note was originally created. Plan of care was discussed and agreed upon with the patient as specifically documented in the above note. An opportunity to ask questions with explanation was provided. Patient voiced understanding on all information reviewed and discussed. <Pedro Shay - 05/22/18 14:37> <Jose ManuelSaji Alvarez - Last Filed: 05/22/18 11:40> (1) Osteomyelitis of ankle Qualifiers: Osteomyelitis type: other chronic Laterality: right Qualified Code(s): M86.671 - Other chronic osteomyelitis, right ankle and foot (9) Hydronephrosis Qualifiers: Hydronephrosis type: unspecified Qualified Code(s): N13.30 - Unspecified hydronephrosis <Pedro Shay - Last Filed: 05/22/18 14:37> (1) Osteomyelitis of ankle Qualifiers: Osteomyelitis type: other chronic Laterality: right Qualified Code(s): M86.671 - Other chronic osteomyelitis, right ankle and foot (9) Hydronephrosis Qualifiers: Hydronephrosis type: unspecified Qualified Code(s): N13.30 - Unspecified hydronephrosis <Saji Richard - Last Filed: 05/22/18 11:40> (1) Osteomyelitis of ankle Qualifiers: Osteomyelitis type: other chronic Laterality: right Qualified Code(s): M86.671 - Other chronic osteomyelitis, right ankle and foot (9) Hydronephrosis Qualifiers: Hydronephrosis type: unspecified Qualified Code(s): N13.30 - Unspecified hydronephrosis <Pedro Shay - Last Filed: 05/22/18 14:37> (1) Osteomyelitis of ankle Qualifiers: Osteomyelitis type: other chronic Laterality: right Qualified Code(s): M86.671 - Other chronic osteomyelitis, right ankle and foot (9) Hydronephrosis Qualifiers: Hydronephrosis type: unspecified Qualified Code(s): N13.30 - Unspecified hydronephrosis
[2018-05-22] MEDS: Gentamicin 0.1% Cream 15 GM Cream TOPICAL SCH ×2 (12:12→20:15)
[2018-05-22] MEDS: Collagenase Oint 30 GM Tube TOPICAL SCH (12:13)
--- NOTE | 2018-05-22 13:02 | P.PNVS ---
Subjective Subjective/Hospital Course: doing well, no complains Objective Vital Signs / I&O: Vital Signs 05/21/18 16:00 05/21/18 19:45 05/21/18 19:53 Temperature 97.6 F 97.5 F L Pulse Rate 59 L 62 Respiratory Rate 20 18 16 Blood Pressure 160/70 H 136/61 Pulse Oximetry 99 98 05/21/18 23:58 05/22/18 00:00 05/22/18 03:54 Temperature 97.9 F Pulse Rate 63 64 58 L Respiratory Rate 20 Blood Pressure 124/58 L Pulse Oximetry 97 05/22/18 04:00 05/22/18 08:00 05/22/18 12:00 Temperature 98.8 F 97.9 F 97.3 F L Pulse Rate 68 53 L 58 L Respiratory Rate 20 16 18 Blood Pressure 133/63 111/58 L 105/56 L Pulse Oximetry 99 97 96 05/22/18 12:03 Temperature Pulse Rate Respiratory Rate 20 Blood Pressure Pulse Oximetry Intake & Output 05/21/18 05/22/18 05/22/18 18:59 06:59 18:59 Intake Total 1083 / 1083 540 / 540 Output Total 1300 / 1300 2700 / 2700 Balance -217 / -217 -2160 / -2160 Weight 75.5 kg Intake: IV 363 / 363 200 / 200 Zerbaxa Inj 1,500 MG In NS Inj 100 / 100 200 / 200 100 ML @ 100 mls/hr IV.SIG Q8H ACE Rx#:[id number] Vancomycin Inj 1,250 MG In NS 263 / 263 Inj 250 ML @ 250 mls/hr IV.SIG Q24H ACE Rx#:[id number] Oral 720 / 720 340 / 340 Output: Urine 1300 / 1300 2700 / 2700 Other: # Bowel Movements 1 # Incontinent Bowel Movements 1 Physical Exam: Right foot wounds stable Laboratory Results - last 24 hr 05/21/18 05/21/18 05/21/18 12:43 17:03 19:00 POC Glucose 127 H 140 H Blood Type A Positive Antibody Screen Negative 05/21/18 05/22/18 05/22/18 23:15 07:47 11:47 POC Glucose 213 H 113 H 112 H Blood Type Antibody Screen Assessment and Plan - Plan RLE CLI with tissue loss Status post right lower extreme angiogram, atherectomy and balloon angioplasty of the right peroneal artery. I had a long discussion with the patient's daughter (Ewa Tovar) regarding the patient medical condition and the need for a right BKA. She doesn' t want an amputation for the patient. She believes hospice is the best option for him. I educated her regarding hospice care and she understands. I communicated this information to the Family Medicine team and will get the palliative care team to further discuss the options with the patient's daughter to finalize the treatment plan. I will continue to follow Saji Tomlin MD [facility] [phone]
--- NOTE | 2018-05-22 13:58 | P.PNOP ---
Subjective Interval history: Patient resting comfortably. Physical Exam Vital signs: Vital Signs 05/21/18 16:00 05/21/18 19:45 05/21/18 19:53 Temperature 97.6 F 97.5 F L Pulse Rate 59 L 62 Respiratory Rate 20 18 16 Blood Pressure 160/70 H 136/61 Pulse Oximetry 99 98 05/21/18 23:58 05/22/18 00:00 05/22/18 03:54 Temperature 97.9 F Pulse Rate 63 64 58 L Respiratory Rate 20 Blood Pressure 124/58 L Pulse Oximetry 97 05/22/18 04:00 05/22/18 08:00 05/22/18 12:00 Temperature 98.8 F 97.9 F 97.3 F L Pulse Rate 68 53 L 58 L Respiratory Rate 20 16 18 Blood Pressure 133/63 111/58 L 105/56 L Pulse Oximetry 99 97 96 05/22/18 12:03 Temperature Pulse Rate Respiratory Rate 20 Blood Pressure Pulse Oximetry Intake & Output 05/21/18 05/22/18 05/22/18 18:59 06:59 18:59 Intake Total 1083 / 1083 540 / 540 Output Total 1300 / 1300 2700 / 2700 Balance -217 / -217 -2160 / -2160 Weight 75.5 kg Intake: IV 363 / 363 200 / 200 Zerbaxa Inj 1,500 MG In NS Inj 100 / 100 200 / 200 100 ML @ 100 mls/hr IV.SIG Q8H ACE Rx#:[id number] Vancomycin Inj 1,250 MG In NS 263 / 263 Inj 250 ML @ 250 mls/hr IV.SIG Q24H ACE Rx#:[id number] Oral 720 / 720 340 / 340 Output: Urine 1300 / 1300 2700 / 2700 Other: # Bowel Movements 1 # Incontinent Bowel Movements 1 Narrative: Awake, alert, no acute distress. Currently eating lunch. Right hip: Dressing in place with minimal drainage. Incisions appear intact. Sutures remain in place. There is mild serous drainage although significantly improved. No significant erythema. No gross signs of infection. - Urinary Catheter Management Straight Cath placed during this visit: yes Reason for continuing: Other continuation reason Insertion date: 04/11/18 Insertion time: 21:08 Indwelling Urethral Catheter Cath placed during this visit: yes, but has since been removed by the nurse Reason for continuing: Not indwelling catheter Insertion date: 04/11/18 Insertion time: 21:08 Removal date: 04/12/18 Removal time: 11:35 Condom Cath placed during this visit: no Reason for continuing: Not indwelling catheter Results - Labs CBC & Chem 7: 05/20/18 05:40 05/21/18 04:20 Laboratory Results - last 24 hr 05/21/18 05/21/18 05/21/18 17:03 19:00 23:15 POC Glucose 140 H 213 H Blood Type A Positive Antibody Screen Negative 05/22/18 05/22/18 07:47 11:47 POC Glucose 113 H 112 H Blood Type Antibody Screen Assessment and Plan - Assessment and Plan 87yo M s/p I&D R hip with hardware removal, placement of antibiotic beads 1. PWB 50% RLE 2. Dressing changes daily and as needed. Sutures can be removed at this time and Steri-Strips applied. 3. Antibiotics per ID for chronic osteomyelitis 4. No plan for further orthopedic intervention at this time.
--- NOTE | 2018-05-22 14:12 | P.PNID ---
Subjective Remarks: Patient is an 87-year-old male, admitted to the hospital for evaluation of low hemoglobin. There was apparently episodes of black tarry stools. He had a GI workup on this admission, and he seemed to be stable from the GI standpoint. Patient apparently has had a wound on his right heel Achilles area. He had vascular workup, and underwent aortogram around April 08, and had atherectomy of the right SFA and popliteal area. Patient could not really tell me how long he has had the open wound. He has pain when he walks. There is been no fever and chills. On this admission podiatry was consulted. 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 There is a foul odor coming out from that right foot, and patient really could not notice any difference. Since admission he has not been febrile. He has significant pain whenever his RLE gets moved. There was a culture from a right thigh wound that has MRSA. I do not see any culture from the right foot. His initial WBC was around 14,000 and that is down to normal. Blood cultures are negative. Infectious disease consultation has been requested to evaluate the patient. Notes reviewed Temps ok Still with pain Vascular surgery notes reviewed Had vascular procedure to RLE 05/15 Had surgery R hip 04/27 - removal of hardware Intraop C/S negative Underwent revascularization 04/24 C/S from ankle with MDR PSAE, Proteus and Enterococcus C/S R thigh MRSA (wound) Antibiotics: Vancomycin Zerbaxa Lines: PIV Past Medical History: Weakness Diabetes HLD (hyperlipidemia) MDRO (multiple drug resistant organisms) resistance Onset Date: ~04/11/18 MRSA (methicillin resistant Staphylococcus aureus) PAD (peripheral artery disease) Hip surgery Allergies/Adverse Reactions: Allergies No Known Allergies Allergy (Verified 04/08/18 12:35) Objective Vital Signs 05/21/18 16:00 05/21/18 19:45 05/21/18 19:53 Temperature 97.6 F 97.5 F L Pulse Rate 59 L 62 Respiratory Rate 20 18 16 Blood Pressure 160/70 H 136/61 Pulse Oximetry 99 98 05/21/18 23:58 05/22/18 00:00 05/22/18 03:54 Temperature 97.9 F Pulse Rate 63 64 58 L Respiratory Rate 20 Blood Pressure 124/58 L Pulse Oximetry 97 05/22/18 04:00 05/22/18 08:00 05/22/18 12:00 Temperature 98.8 F 97.9 F 97.3 F L Pulse Rate 68 53 L 58 L Respiratory Rate 20 16 18 Blood Pressure 133/63 111/58 L 105/56 L Pulse Oximetry 99 97 96 05/22/18 12:03 Temperature Pulse Rate Respiratory Rate 20 Blood Pressure Pulse Oximetry Intake & Output 05/21/18 05/22/18 05/22/18 18:59 06:59 18:59 Intake Total 1083 / 1083 540 / 540 Output Total 1300 / 1300 2700 / 2700 Balance -217 / -217 -2160 / -2160 Weight 75.5 kg Intake: IV 363 / 363 200 / 200 Zerbaxa Inj 1,500 MG In NS Inj 100 / 100 200 / 200 100 ML @ 100 mls/hr IV.SIG Q8H ACE Rx#:[id number] Vancomycin Inj 1,250 MG In NS 263 / 263 Inj 250 ML @ 250 mls/hr IV.SIG Q24H ACE Rx#:[id number] Oral 720 / 720 340 / 340 Output: Urine 1300 / 1300 2700 / 2700 Other: # Bowel Movements 1 # Incontinent Bowel Movements 1 Lab - Chemistry Results 05/20/18 05/20/18 05/21/18 15:54 19:45 04:20 Creatinine 0.49 L Estimated GFR Greater than 89 POC Glucose 82 177 H 05/21/18 05/21/18 05/21/18 09:13 12:43 17:03 Creatinine Estimated GFR POC Glucose 137 H 127 H 140 H 05/21/18 05/22/18 05/22/18 23:15 07:47 11:47 Creatinine Estimated GFR POC Glucose 213 H 113 H 112 H Imaging: ITS Impressions Head CT 04/11/18 11:59 CONCLUSION: 1. Stable appearance of the brain. . Ankle MRI 04/15/18 00:00 CONCLUSION: 1. Osteomyelitis of the posterior calcaneus with a near complete tear of the distal Achilles tendon. There is overlying cellulitis and subcutaneous edema with a small abscess adjacent to the distal Achilles tendon as measured above. There is edematous change on the plantar aspect of the foot with a tenosynovitis as above. No acute fracture identified. Mild bone edema tibia, nonspecific. Ankle X-Ray 04/15/18 00:00 CONCLUSION: Osteomyelitis of the posterior calcaneus with overlying soft tissue swelling and ulceration. No acute fracture. Femur MRI 04/25/18 00:00 CONCLUSION: 1. 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 The collection appears to communicate with the prosthetic component in the proximal femur. 2. Edematous changes are noted along the vastus lateralis and iliotibial band. Hip X-Ray 04/27/18 00:00 CONCLUSION: Hardware removal on the right. Abdomen/Pelvis CT 04/30/18 10:28 Review of bone windows reveals moderate degenerative changes in the lumbar spine and both SI joints. CONCLUSION: 1. Large bolus of stool in the rectum with stool throughout the colon suggesting constipation with possible impaction 2. Prominent gallbladder without stones 3. 2 nonobstructing stones in the left kidney. Physical Exam: GENERAL: awake and alert, not in respiratory distress. SKIN: Cool and dry. No generalized rash. EYES: [place] conjunctiva. No petechia or hemorrhage. No scleral icterus. No injection or drainage. EARS, NOSE AND THROAT: Mucous membranes pink and moist. No oral lesions noted. NECK: Trachea midline. Supple and not tender, no meningeal signs CARDIOVASCULAR: Regular rate and rhythm. No murmurs, rubs or gallops heard RESPIRATORY: Clear to auscultation. Breath sounds equal bilaterally. No rales , wheezing or rhonchi ABDOMEN: Soft, non-tender, nondistended. Bowel sounds present and normoactive. . EXTREMITIES: No clubbing, cyanosis, or edema. 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 Wounds on dorsum with small amount of drainage. Black eschar on his R heel and posterior ankle, no odor. Dressing R hip with serosanguineous drainage NEURO: Awake and alert PSYCH: Cooperative LINE: No evidence of infection Assessment and Plan - Plan Impression Non-healing wound R heel/achilles area with abscess and osteo posterior calcaneus PVD S/P revascularization RLE 04/24 Infection R femur, has sinus tract on MRI, S/P RAZA, C/S MRSA GIB Leukocytosis, resolved Anemia Recommendation Continue IV Vanco - needs until Jun 07, 6 weeks after hardware removal for the R hip Continue Zerbaxa - for now Palliative medicine following Per vascular notes - daughter does not want amputation He also has ongoing pain, which is ischemic likely plus due to infection Will not be able to cure the R foot infection due to PVD and extent of infection - Abx delivery not ideal due to PVD (small vessel disease)
[2018-05-22] MEDS: Vancomycin Inj 1,250 MG in Sodium Chlor 0.9% Inj 250 ML IV.SIG SCH (14:16)
--- NOTE | 2018-05-22 15:56 | P.PNPAL ---
Reason for Visit Reason for visit: a. To assist with evaluation and management of symptoms including: Pain, weakness b. To assist medical decision maker(s) with: better understanding of current medical conditions; weighing benefits/burdens of medical treatment options; making medical treatment decisions. Subjective Subjective/Interval History: This is an 87-year-old male transferred from the nursing facility on 04/11 to the emergency department for low hemoglobin. The patient had just been seen by Dr. Oliva and had undergone arteriogram with lower extremity angiogram, right SFA and popliteal atherectomy to the right lower extremity. He was found to be confused, aware only of his name and that he was at the hospital. Patient is seen today for follow-up of symptom management for pain and weakness and to assist family in goals of medical treatment. Right leg continues to cause him pain. The wound is not healing and per both vascular surgery and infectious disease, it will not heal without amputation. There is not enough vascular flow to the foot to allow healing. Dr. Tomlin spoke with the patient's daughter, Ewa, this morning who declined amputation and instead chose hospice. The daughter then contacted the legal guardian who assists her in the [place], Kyleigh Landa, and stated that she would agree to amputation. She vacillated back and forth throughout the day and finally said yes to the amputation. Due to her vacillation, Dr. Tomlin wishes to allow her to consider her decision overnight and he and I will contact her in the morning for a witnessed conversation to determine if her goals remain the same and if so consents will be witnessed at that time. He remains with generalized weakness, worsening with his extended bedbound status. He is able to perform bed mobility but at this time would be unable to stand and pivot transfer. Orthopedics saw him today and cleared him for 50% weightbearing based on the right hip recovery. He is still nonweightbearing per podiatry due to the severe right heel wound. . Family/Friend Interactions: I was contacted by Dr. Richard regarding the disposition of Mr. Escobedo. Multiple conversations have been held with the daughter who has vacillated back and forth between amputate and send him to hospice. Reviewed the clinical situation with the patient's [place] contact, Kyleigh Landa, who has clearance from the patient's daughter, Ewa, to access patient information to be able to convey to the daughter who lives in [facility]. While the patient is agreeing to amputation, the patient is legally not capacitated and does not have adequate insight to be able to make that decision. Multiple emails between Kyleigh and Ewa were forwarded to me, the last of which communicated that she wished to go forth with the amputation. Due to the vacillation and the permanence of the surgery, Dr. Tomlin wanted to allow adequate consideration time to the family and readdress the issue in the morning with her to see if her goals are still consistent. I was then contacted by the daughter at 1530 p.m. and held a discussion of the clinical situation. Essentially, infectious disease notes indicate that the right foot wound has in adequate circulation to allow penetration of the antibiotics and in the final analysis, does not believe that the antibiotics will cure the infection. Without amputation, the patient will near certainly progressed to sepsis and likely and continued to have pain in the right foot. While vascular surgery believes that hospice is certainly an appropriate venue of treatment for this patient, amputation is also a considered possibility. This will remove the ischemic portion which is causing the patient pain, however does bear the continued risk of reinfection due to poor circulation and the remaining right hip wound, as well as the standard surgical and anesthesia risks. In either case scenario, the patient will likely never walk again. After discussion Ewa felt that she would prefer to undergo the risk of surgery and amputation and relieve her father's pain to a better degree, rather than allow him to continue with ischemic pain in his foot and suffer the discomfort of recurrent infections and likely sepsis. Due to the permanence and complexity of this decision, Ewa was enthusiastically agreeable to Dr. Tomlin's suggestion that she consider all of the ramifications overnight, allow time for processing and revisit this decision in the morning. He has made arrangements with me to contact her via telephone for any further discussion necessary and make the final decision in the morning. . Advance Directives Living Will: Completed, but not made available Health Care Surrogate: Completed, but not made available Durable Power of Barrel Assembly Inspector: Completed, but not made available Objective Vital Signs: Vital Signs 05/21/18 16:00 05/21/18 19:45 05/21/18 19:53 Temperature 97.6 F 97.5 F L Pulse Rate 59 L 62 Respiratory Rate 20 18 16 Blood Pressure 160/70 H 136/61 Pulse Oximetry 99 98 05/21/18 23:58 05/22/18 00:00 05/22/18 03:54 Temperature 97.9 F Pulse Rate 63 64 58 L Respiratory Rate 20 Blood Pressure 124/58 L Pulse Oximetry 97 05/22/18 04:00 05/22/18 08:00 05/22/18 12:00 Temperature 98.8 F 97.9 F 97.3 F L Pulse Rate 68 53 L 60 Respiratory Rate 20 16 18 Blood Pressure 133/63 111/58 L 105/56 L Pulse Oximetry 99 97 96 05/22/18 12:03 Temperature Pulse Rate Respiratory Rate 20 Blood Pressure Pulse Oximetry Intake & Output 05/21/18 05/22/18 05/22/18 18:59 06:59 18:59 Intake Total 1083 / 1083 540 / 540 100 / 100 Output Total 1300 / 1300 2700 / 2700 Balance -217 / -217 -2160 / -2160 100 / 100 Weight 166 lb 7.184 oz Intake: IV 363 / 363 200 / 200 100 / 100 Zerbaxa Inj 1,500 MG In NS Inj 100 / 100 200 / 200 100 / 100 100 ML @ 100 mls/hr IV.SIG Q8H ACE Rx#:[id number] Vancomycin Inj 1,250 MG In NS 263 / 263 Inj 250 ML @ 250 mls/hr IV.SIG Q24H ACE Rx#:[id number] Oral 720 / 720 340 / 340 Output: Urine 1300 / 1300 2700 / 2700 Other: # Bowel Movements 1 # Incontinent Bowel Movements 1 Physical Exam: CONSTITUTIONAL/GENERAL: This is elderly, cachectic male patient, in no apparent distress. TUBES/LINES/DRAINS: PIV SKIN: Scattered ecchymosis on upper and lower extremities, skin is dry with purpling on right second and third toes, right great toe, multiple abrasions and wounds on feet and ankles bilaterally, large ecchymotic right heel decubitus , dressed CDI. HEAD: Atraumatic. Normocephalic. EYES: Left pupil 4 mm and oblong from previous traumatic injury, right pupil 2 mm and reactive, extraocular motions intact. No scleral icterus. No injection or drainage. Fundi not examined. CARDIOVASCULAR: Regular rate and rhythm with 2/6 systolic ejection murmurs, no gallops, or rubs. No JVD. Peripheral pulses symmetric. RESPIRATORY/CHEST: Symmetric, unlabored respirations. Clear to auscultation. Breath sounds equal bilaterally. No wheezes, rales, or rhonchi. GASTROINTESTINAL: Abdomen soft, non-tender, nondistended. No hepato-splenomegaly , or palpable masses. No guarding. Bowel sounds present. GENITOURINARY: Without palpable bladder distension. MUSCULOSKELETAL: Extremities without clubbing, cyanosis, or edema. No joint tenderness or effusion noted. NEUROLOGICAL: Awake and alert. Generalized weakness. Follows commands. Cognitively he is pleasantly and intermittently confused. At times he appears quite lucid, other times confused. He consistently shows poor insight into the scope of his illness. Moves all extremities but has difficulty with bilateral lower extremities right greater than left secondary to pain. PSYCHIATRIC: No obvious anxiety/depression. no apparent hallucinations or other psychotic thought process. . Diagnostic Tests Laboratory: Laboratory Results - last 72 hr 05/19/18 05/19/18 05/19/18 16:10 17:19 19:35 WBC RBC Hgb Hct MCV MCH MCHC RDW Plt Count MPV Sodium Potassium Chloride Carbon Dioxide Anion Gap BUN Creatinine Estimated GFR POC Glucose 186 H 162 H Random Glucose Calcium Vancomycin Trough 12.1 H Blood Type Antibody Screen 05/20/18 05/20/18 05/20/18 05:40 05:40 08:28 WBC 8.9 RBC 2.86 L Hgb 8.8 L Hct 26.2 L MCV 91.6 MCH 30.7 MCHC 33.5 RDW 22.2 H Plt Count 344 MPV 7.2 Sodium 128 L Potassium 4.5 Chloride 95 L Carbon Dioxide 25.8 Anion Gap 7 BUN 14 Creatinine 0.59 L Estimated GFR Greater than 89 POC Glucose 166 H Random Glucose 139 H Calcium 7.8 L Vancomycin Trough Blood Type Antibody Screen 05/20/18 05/20/18 05/20/18 12:40 15:54 19:45 WBC RBC Hgb Hct MCV MCH MCHC RDW Plt Count MPV Sodium Potassium Chloride Carbon Dioxide Anion Gap BUN Creatinine Estimated GFR POC Glucose 172 H 82 177 H Random Glucose Calcium Vancomycin Trough Blood Type Antibody Screen 05/21/18 05/21/18 05/21/18 04:20 09:13 12:43 WBC RBC Hgb Hct MCV MCH MCHC RDW Plt Count MPV Sodium Potassium Chloride Carbon Dioxide Anion Gap BUN Creatinine 0.49 L Estimated GFR Greater than 89 POC Glucose 137 H 127 H Random Glucose Calcium Vancomycin Trough Blood Type Antibody Screen 05/21/18 05/21/18 05/21/18 17:03 19:00 23:15 WBC RBC Hgb Hct MCV MCH MCHC RDW Plt Count MPV Sodium Potassium Chloride Carbon Dioxide Anion Gap BUN Creatinine Estimated GFR POC Glucose 140 H 213 H Random Glucose Calcium Vancomycin Trough Blood Type A Positive Antibody Screen Negative 05/22/18 05/22/18 07:47 11:47 WBC RBC Hgb Hct MCV MCH MCHC RDW Plt Count MPV Sodium Potassium Chloride Carbon Dioxide Anion Gap BUN Creatinine Estimated GFR POC Glucose 113 H 112 H Random Glucose Calcium Vancomycin Trough Blood Type Antibody Screen Result Diagrams: 05/20/18 05:40 05/21/18 04:20 Microbiology: Microbiology 04/27/18 12:43 Wound - Thigh Acid Fast Bacilli Smear - Final No acid fast bacilli seen 04/27/18 12:43 Wound - Thigh Mycobacterial Culture - Preliminary No growth in 3 weeks 04/27/18 12:43 Wound - Thigh Fungal Smear - Final No fungal elements seen 04/27/18 12:43 Wound - Thigh Fungal Culture - Preliminary No growth in 3 weeks 04/29/18 09:05 Blood - Peripheral Aerobic Blood Culture - Final No growth in 5 days 04/29/18 09:05 Blood - Peripheral Anaerobic Blood Culture - Final No growth in 5 days 04/29/18 09:10 Blood - Peripheral Aerobic Blood Culture - Final No growth in 5 days 04/29/18 09:10 Blood - Peripheral Anaerobic Blood Culture - Final No growth in 5 days 05/01/18 19:00 Stool Occult Blood - Final Hemoccult negative 04/27/18 12:43 Wound - Thigh Gram Stain - Final 04/27/18 12:43 Wound - Thigh Wound Culture - Final No growth in 72 hours (aerobically and anaerobically ) 04/16/18 15:55 Wound - Foot Gram Stain - Final 04/16/18 15:55 Wound - Foot Wound Culture - Final Pseudomonas aeruginosa Multidrug Resistant Proteus mirabilis Enterococcus faecalis 04/11/18 13:45 Blood - Peripheral Aerobic Blood Culture - Final No growth in 5 days 04/11/18 13:45 Blood - Peripheral Anaerobic Blood Culture - Final No growth in 5 days 04/11/18 13:50 Blood - Peripheral Aerobic Blood Culture - Final No growth in 5 days 04/11/18 13:50 Blood - Peripheral Anaerobic Blood Culture - Final No growth in 5 days 04/11/18 12:00 Wound - Thigh Gram Stain - Final 04/11/18 12:00 Wound - Thigh Wound Culture - Final S. aureus MRSA Imaging: ITS Impressions Head CT 04/11/18 11:59 CONCLUSION: 1. Stable appearance of the brain. . Ankle MRI 04/15/18 00:00 CONCLUSION: 1. Osteomyelitis of the posterior calcaneus with a near complete tear of the distal Achilles tendon. There is overlying cellulitis and subcutaneous edema with a small abscess adjacent to the distal Achilles tendon as measured above. There is edematous change on the plantar aspect of the foot with a tenosynovitis as above. No acute fracture identified. Mild bone edema tibia, nonspecific. Ankle X-Ray 04/15/18 00:00 CONCLUSION: Osteomyelitis of the posterior calcaneus with overlying soft tissue swelling and ulceration. No acute fracture. Femur MRI 04/25/18 00:00 CONCLUSION: 1. 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 The collection appears to communicate with the prosthetic component in the proximal femur. 2. Edematous changes are noted along the vastus lateralis and iliotibial band. Hip X-Ray 04/27/18 00:00 CONCLUSION: Hardware removal on the right. Abdomen/Pelvis CT 04/30/18 10:28 Review of bone windows reveals moderate degenerative changes in the lumbar spine and both SI joints. CONCLUSION: 1. Large bolus of stool in the rectum with stool throughout the colon suggesting constipation with possible impaction 2. Prominent gallbladder without stones 3. 2 nonobstructing stones in the left kidney. Procedures: 04/14: Colonoscopy 04/19: Endoscopy 04/24: Right lower extremity angiogram, right popliteal YARD RIGGER. 04/27: Removal of hardware right femur, Synthes TFN, irrigation and debridement of skin, subcu tissue, muscle and bone with insertion of Stimulan and antibiotic beads spacer. Assessment and Plan Pertinent Non-Medical Issues: Psychosocial: He was born in [place] and retired from [employer]. He has been twice and is now . He has 2 children that live in [place]. His daughter Ewa is his healthcare decision maker. 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 Legal: Has an elder care manager emergency, Rubin Sequeira Ethical issues impacting care: Patient is confused. . Important Contacts: Daughter: Ewa Tovar ([facility]) [phone] resource coordinator: Kyleigh Landa (HIPPA release on chart for her to receive info) Barrel Assembly Inspector: Rubin Sequeira Prognosis: His prognosis is guarded. He is of advanced age with multiple comorbidities. He has several chronic nonhealing wounds, severe peripheral artery disease and a large calcaneal ulcer on his right heel. He has a draining wound on his right hip and is at elevated risk for continued infections, complications, possible loss of limb, sepsis and even . He is currently refusing amputation of the right foot but has poor insight, is confused and does not appear to have capacity to make that decision. Contact being established with patient's personal care attendant and daughter to clarify goals however, decreased vascularity to his periphery raises his risk of continued infection and failure regardless of the decision to amputate or not. . Code Status: No Code DNR Plan: PLAN: Legal decision maker: Patient is not capacitated for decision-making. His daughter Ewa has been designated as his healthcare proxy and she lives in [facility]. To that end she has hired a local personal care attendant, Kyleigh Landa, to assist her in decision-making. Goals: To be determined. CODE STATUS: DO NOT RESUSCITATE SYMPTOMS: * Pain: He complains of pain in the right foot and heel, worse with movement, intermittent, stabbing with no relieving factors except lying still and opioids. He is receiving hydrocodone/acetaminophen/10/325 every 4 hours as needed and gabapentin 600 mg 3 times daily. He is taking an average of 4-6 [place] tablets daily. He remains painful after atherectomy and angioplasty. Although not capacitated for decision-making, he states he would consider amputation. Extensive discussion held with the daughter today. Plan to consider overnight and revisit the decision in the morning after she has had time to process and consider the information for a final decision. * Weakness: He is generally weak but was reportedly somewhat ambulatory with assistance at [facility], per the guardian. Given the wounds on his heel, progressive ischemia of the second toe and prolonged hospitalization, he would likely not walk again with or without BKA. Family is considering going forward with amputation as the patient states he would now consider it. It should be noted, that the patient is legally been declared incapacitated for healthcare decision making. The family is, however, considering his wishes in their decisions. Palliative care will continue to follow the patient during hospital course as condition evolves, to assist patient/decision-maker with understanding of their medical conditions, weighing benefits/burdens of treatment options, for clarification of goals of treatment. Additionally will assist with any symptoms of palliative concern. . Attestation Attestation: To help prompt me to consider important information that might be impacting today's encounter and assessment, information from prior notes written by myself or my colleagues may have been "brought forward" into today's note. My signature on this note, however, is an attestation that I personally performed the exam, history, and/or decision-making noted today, and, unless otherwise indicated, the interactions with patient, family, and staff as well as the review of records all occurred today. I also attest that the listed assessment and stated plan reflect my best clinical judgment today based on the combination of historical information, prior notes, and today's exam/ interactions. When time spent is documented, it refers only to time spent today by the signer, or if indicated, combined time spent today by collaborating physician/nurse practitioner. .
[2018-05-23] MEDS: Levothyroxine 125 MCG Tablet PO SCH (05:35)
[2018-05-23] MEDS: SODIUM CHLOR 0.9% IV.SIG SCH ×3 (05:35→22:13)
[2018-05-23] MEDS: CEFTOLOZANE IV.SIG SCH ×3 (05:35→22:13)
[2018-05-23] MEDS: TAZOBACTAM IV.SIG SCH ×3 (05:35→22:13)
[2018-05-23 07:16] LABS: Baso # (Auto) 0.2 th/mm3 (0.0-0.2); Baso % (Auto) 2.1 % (0.0-2.0); Eos # (Auto) 0.7 th/mm3 (0.0-0.4); Hematocrit 25.7 % (39.0-51.0); Hemoglobin 8.8 gm/dL (13.0-17.0); Lymph # (Auto) 1.4 th/mm3 (1.0-4.8); Lymph % (Auto) 20.3 % (9.0-44.0); Mean Corpuscular HGB Conc 34.4 % (32.0-36.0); Mean Corpuscular Hemoglobin 30.9 pg (27.0-34.0); Mean Platelet Volume 7.2 fL (7.0-11.0); Mono # (Auto) 0.7 th/mm3 (0.0-0.9); Mono % (Auto) 10.5 % (0.0-8.0); Neut % (Auto) 57.1 % (16.0-70.0); Platelet Count 374 th/mm3 (150-450); Red Blood Count 2.86 mil/mm3 (4.50-5.90); Red Cell Distribution Width 21.8 % (11.6-17.2)
[2018-05-23 07:30] LABS: Anion Gap 8 meq/L (5-15); Blood Urea Nitrogen 12 mg/dL (7-18); Calcium 7.7 mg/dL (8.5-10.1); Carbon Dioxide 26.5 meq/L (21.0-32.0); Chloride 92 meq/L (98-107); Glomerular Filtration Rate Greater Than 89 mL/min (>89); Glucose,Random 94 mg/dL (74-106); Potassium 4.9 meq/L (3.5-5.1); Sodium 126 meq/L (136-145)
[2018-05-23] MEDS: Docusate Sodium 100 MG Capsule PO SCH ×2 (08:17→22:16)
[2018-05-23] MEDS: Polyethylene Glycol 3350 17 GM Packet PO SCH (08:17)
[2018-05-23] MEDS: Insulin NovoLOG Aspart Correctional Sugar Inj SQ SCH ×4 (08:17→22:16)
[2018-05-23 08:38] LABS: Platelet Estimate Normal (Normal); Platelet Morphology Clumped (Normal)
[2018-05-23] MEDS: Gabapentin 300 MG Capsule PO SCH ×3 (08:44→18:18)
[2018-05-23] MEDS: Ascorbic Acid 500 MG Tablet PO SCH ×2 (08:44→22:15)
[2018-05-23] MEDS: Potassium Phos/Sodium Phos 250 MG Tablet PO SCH ×4 (08:44→22:15)
[2018-05-23] MEDS: Citalopram 20 MG Tablet PO SCH (08:45)
[2018-05-23] MEDS: Ferrous Sulfate 325 MG Tablet PO SCH ×3 (08:45→19:46)
[2018-05-23] MEDS: Amiodarone 200 MG Tablet PO SCH (08:45)
[2018-05-23] MEDS: Sodium Chloride 1 GM Tablet PO SCH ×3 (08:45→19:46)
[2018-05-23] MEDS: Magnesium Oxide 400 MG Tablet PO SCH ×4 (08:46→22:16)
--- NOTE | 2018-05-23 10:30 | P.PNFP ---
Subjective Interval history: Patient seen and examined this morning. No acute events over night. Discussed possibility of surgery and the need to speak with his daughter. Patient was agreeable with the surgeon contacting his daughter today to discuss and noted "I thought she already said yes." He reports no change in his right leg pain. He denies nausea, vomiting, fever, chills, abdominal pain, chest pain, SOB, lightheadedness, dizziness, change in bowel or bladder habits. No other complaints today. <Saji Richard - 05/23/18 10:30> Results - Labs Result diagrams: 05/26/18 08:02 05/26/18 08:02 <Pedro Shay - 05/26/18 15:10> Abnormal lab results 05/25/18 05/25/18 05/26/18 Range/Units 17:56 21:42 08:02 RBC 2.66 L (4.50-5.90) mil/mm3 Hgb 8.3 L (13.0-17.0) gm/dL Hct 24.1 L (39.0-51.0) % RDW 22.2 H (11.6-17.2) % MPV 6.6 L (7.0-11.0) fL Calvert % (Auto) 12.7 H (0.0-8.0) % Eos % (Auto) 5.8 H (0.0-4.0) % Calvert # (Auto) 1.0 H (0.0-0.9) th/mm3 Eos # (Auto) 0.5 H (0.0-0.4) th/mm3 Sodium (136-145) meq/L Chloride (98-107) meq/L Creatinine (0.60-1.30) mg/dL POC Glucose 158 H 122 H (68-110) mg/dl Random Glucose (74-106) mg/dL Calcium (8.5-10.1) mg/dL 05/26/18 05/26/18 Range/Units 08:02 12:43 RBC (4.50-5.90) mil/mm3 Hgb (13.0-17.0) gm/dL Hct (39.0-51.0) % RDW (11.6-17.2) % MPV (7.0-11.0) fL Calvert % (Auto) (0.0-8.0) % Eos % (Auto) (0.0-4.0) % Calvert # (Auto) (0.0-0.9) th/mm3 Eos # (Auto) (0.0-0.4) th/mm3 Sodium 125 L (136-145) meq/L Chloride 90 L (98-107) meq/L Creatinine 0.57 L (0.60-1.30) mg/dL POC Glucose 128 H (68-110) mg/dl Random Glucose 108 H (74-106) mg/dL Calcium 8.1 L (8.5-10.1) mg/dL Short CBC 05/26/18 Range/Units 08:02 WBC 8.2 (4.0-11.0) th/mm3 Hgb 8.3 L (13.0-17.0) gm/dL Hct 24.1 L (39.0-51.0) % Plt Count 391 (150-450) th/mm3 BMP 05/26/18 08:02 Sodium 125 L Potassium 4.7 Chloride 90 L Carbon Dioxide 27.0 BUN 10 Creatinine 0.57 L Calcium 8.1 L <Pedro Shay - 05/26/18 15:10> Abnormal lab results 05/22/18 05/22/18 05/22/18 Range/Units 11:47 17:14 19:25 RBC (4.50-5.90) mil/mm3 Hgb (13.0-17.0) gm/dL Hct (39.0-51.0) % RDW (11.6-17.2) % Calvert % (Auto) (0.0-8.0) % Eos % (Auto) (0.0-4.0) % Baso % (Auto) (0.0-2.0) % Eos # (Auto) (0.0-0.4) th/mm3 Platelet Morphology (Normal) Sodium (136-145) meq/L Chloride (98-107) meq/L Creatinine (0.60-1.30) mg/dL POC Glucose 112 H 150 H 147 H (68-110) mg/dl Calcium (8.5-10.1) mg/dL 05/23/18 05/23/18 Range/Units 04:33 04:33 RBC 2.86 L (4.50-5.90) mil/mm3 Hgb 8.8 L (13.0-17.0) gm/dL Hct 25.7 L (39.0-51.0) % RDW 21.8 H (11.6-17.2) % Calvert % (Auto) 10.5 H (0.0-8.0) % Eos % (Auto) 10.0 H (0.0-4.0) % Baso % (Auto) 2.1 H (0.0-2.0) % Eos # (Auto) 0.7 H (0.0-0.4) th/mm3 Platelet Morphology Clumped H (Normal) Sodium 126 L (136-145) meq/L Chloride 92 L (98-107) meq/L Creatinine 0.58 L (0.60-1.30) mg/dL POC Glucose (68-110) mg/dl Calcium 7.7 L (8.5-10.1) mg/dL Short CBC 05/23/18 Range/Units 04:33 WBC 7.0 (4.0-11.0) th/mm3 Hgb 8.8 L (13.0-17.0) gm/dL Hct 25.7 L (39.0-51.0) % Plt Count 374 (150-450) th/mm3 BMP 05/23/18 04:33 Sodium 126 L Potassium 4.9 Chloride 92 L Carbon Dioxide 26.5 BUN 12 Creatinine 0.58 L Calcium 7.7 L <Faille,Eladio - 05/23/18 10:30> Physical Exam Vital signs: Vital Signs 05/25/18 16:00 05/25/18 20:00 05/25/18 22:10 Temperature 98.0 F 98.1 F Pulse Rate 61 65 Respiratory Rate 18 17 18 Blood Pressure 128/60 109/54 L Pulse Oximetry 100 100 05/26/18 00:00 05/26/18 04:00 05/26/18 08:00 Temperature 98 F 97.6 F 97.5 F L Pulse Rate 61 60 62 Respiratory Rate 16 16 17 Blood Pressure 115/60 127/58 L 130/62 Pulse Oximetry 98 98 98 05/26/18 12:00 Temperature 97.6 F Pulse Rate 59 L Respiratory Rate 17 Blood Pressure 126/60 Pulse Oximetry 97 Intake & Output 05/25/18 05/26/18 05/26/18 18:59 06:59 18:59 Intake Total 702.5 / 702.5 240 / 240 Output Total 1000 / 1000 1250 / 1250 Balance -297.5 / -297.5 -1010 / -1010 Weight 71.5 kg Intake: IV 262.5 / 262.5 Vancomycin Inj 1,250 MG In NS 262.5 / 262.5 Inj 250 ML @ 250 mls/hr IV.SIG Q24H [facility] Rx#:[id number] Oral 440 / 440 240 / 240 Output: Urine 1000 / 1000 Urine Amount (Catheter) 1250 / 1250 Condom 1250 / 1250 Other: # Bowel Movements 1 # Incontinent Bowel Movements 2 <Pedro Shay - 05/26/18 15:10> Vital Signs 05/22/18 12:00 05/22/18 12:03 05/22/18 16:00 Temperature 97.3 F L 97.5 F L Pulse Rate 60 62 Respiratory Rate 18 20 14 Blood Pressure 105/56 L 140/65 Pulse Oximetry 96 99 05/22/18 18:01 05/22/18 19:45 05/22/18 19:56 Temperature Pulse Rate 57 L Respiratory Rate 20 18 Blood Pressure Pulse Oximetry 05/22/18 20:00 05/22/18 23:57 05/23/18 00:00 Temperature 97.3 F L 97.8 F Pulse Rate 60 55 L 57 L Respiratory Rate 20 20 Blood Pressure 115/56 L 99/57 L Pulse Oximetry 97 93 L 05/23/18 03:50 05/23/18 04:00 05/23/18 08:00 Temperature 98.0 F 97.3 F L Pulse Rate 58 L 58 L 54 L Respiratory Rate 20 18 Blood Pressure 132/63 99/59 L Pulse Oximetry 95 99 Intake & Output 05/22/18 05/23/18 05/23/18 18:59 06:59 18:59 Intake Total 842.5 / 842.5 480 / 480 Balance 842.5 / 842.5 480 / 480 Intake: IV 362.5 / 362.5 200 / 200 Zerbaxa Inj 1,500 MG In NS Inj 100 / 100 200 / 200 100 ML @ 100 mls/hr IV.SIG Q8H [facility] Rx#:[id number] Vancomycin Inj 1,250 MG In NS 262.5 / 262.5 Inj 250 ML @ 250 mls/hr IV.SIG Q24H [facility] Rx#:[id number] Oral 480 / 480 280 / 280 Other: # Incontinent Voids 3 Date of Last Bowel Movement 05/22/18 # Bowel Movements 0 # Incontinent Bowel Movements 2 <Saji Richard - 05/23/18 10:30> Narrative: General: Cachectic elderly male, alert, and in no acute distress. Oriented to person and place. HEENT: Atraumatic, non-icteric sclera and no conjunctival injection, moist mucous membranes Neck: Supple, non-tender without masses or lymphadenopathy, trachea midline, no JVD Cardiac: Regular rate and rhythm Pulmonary: Non-labored breathing. Lungs clear to auscultation bilaterally with good air movement Abdomen: Normal bowel sounds, soft and non-tender without rebound or guarding Extremities: No edema, right lower extremity is cool to the touch. He has poor sensation. Atrophic muscular changes in both legs bilaterally. Patient able to move toes bilaterally. Necrotic tip of the right first toe, necrosis to the MTP joint of the second toe, and increasingly dusky appearance of the third toe. There is also a small area of necrosis on the plantar surface of the foot. Dressings are in place over the wounds on the heels and are clean dry and intact. <Saji Richard - 05/23/18 10:30> - Urinary Catheter Management Condom Cath placed during this visit: no <Pedro Shay - 05/26/18 15:10> no <Saji Richard - 05/23/18 13:30> Reason for continuing: Not indwelling catheter <Saji Richard - 05/23/18 10 :30> Indwelling Urethral Catheter Cath placed during this visit: no <Pedro Shay - 05/26/18 15:10> yes, but has since been removed by the nurse <Saji Richard - 05/23/18 13:30> Reason for continuing: Not indwelling catheter <Saji Richard - 05/23/18 10 :30> Insertion date: 04/11/18 <Saji Richard 05/23/18 10:30> Insertion time: 21:08 <Saji Richard - 05/23/18 10:30> Removal date: 04/12/18 <Saji Richard - 05/23/18 10:30> Removal time: 11:35 <Saji Richard - 05/23/18 10:30> Straight Cath placed during this visit: no <Pedro Shay - 05/26/18 15:10> yes <Saji Richard - 05/23/18 13:30> Reason for continuing: Other continuation reason <Saji Richard - 05/23/18 10:30> Insertion date: 04/11/18 <Saji Richard - 05/23/18 10:30> Insertion time: 21:08 <Saji Richard - 05/23/18 10:30> Assessment and Plan - Assessment (1) S/P BKA (below knee amputation) Code(s): Z89.519 - Acquired absence of unspecified leg below knee Status: Acute (2) Anemia Code(s): D64.9 - Anemia, unspecified Status: Acute (3) Infection associated with internal hip prosthesis Code(s): T84.59XA - Infection and inflammatory reaction due to other internal joint prosthesis, initial encounter; Z96.649 - Presence of unspecified artificial hip joint Status: Acute (4) MRSA (methicillin resistant staph aureus) culture positive Code(s): Z22.322 - Carrier or suspected carrier of Methicillin resistant Staphylococcus aureus Status: Acute (5) PAD (peripheral artery disease) Code(s): I73.9 - Peripheral vascular disease, unspecified Status: Chronic (6) Hydronephrosis Code(s): N13.30 - Unspecified hydronephrosis Status: Resolved (7) HTN (hypertension) Code(s): I10 - Essential (primary) hypertension Status: Acute (8) Diabetes Code(s): E11.9 - Type 2 diabetes mellitus without complications Status: Acute (9) Malnutrition Code(s): E46 - Unspecified protein-calorie malnutrition Status: Acute (10) Suicidal ideation Code(s): R45.851 - Suicidal ideations Status: Acute (11) Anisocoria Code(s): H57.02 - Anisocoria Status: Acute (12) Sacral ulcer Code(s): L98.429 - Non-pressure chronic ulcer of back with unspecified severity Status: Acute <Pedro Shay - 05/26/18 15:10> (1) S/P BKA (below knee amputation) (2) Anemia Code(s): D64.9 - Anemia, unspecified Status: Acute Plan: On admission found to have hemoglobin of 6.6, status post 2 units RBCs transfused. Had tarry stools, endoscopy and colonoscopy benign other than small ulcer in rectum. Hemoglobin stable, will continue to monitor (3) Infection associated with internal hip prosthesis Code(s): T84.59XA - Infection and inflammatory reaction due to other internal joint prosthesis, initial encounter; Z96.649 - Presence of unspecified artificial hip joint Status: Acute Plan: Found to have right hip hardware infection. Irrigation, debridement, hardware removal and placement of antibiotic beads (04/27). -Orthopedics reconsulted, no further orthopedic intervention -Antibiotics per ID for chronic osteomyelitis (4) MRSA (methicillin resistant staph aureus) culture positive Code(s): Z22.322 - Carrier or suspected carrier of Methicillin resistant Staphylococcus aureus Status: Acute Plan: This patient suffers from chronic nonhealing wounds likely secondary to peripheral arterial disease and DM. Patient had wound from right thigh cultured which ultimately grew MRSA. -Monitor for fevers and signs of systemic illness -Antibiotic therapy as above (5) PAD (peripheral artery disease) Code(s): I73.9 - Peripheral vascular disease, unspecified Status: Chronic Plan: s/p recent right LE arterectomy. s/p vascular procedure as above on 04/24 (6) Hydronephrosis Code(s): N13.30 - Unspecified hydronephrosis Status: Resolved Plan: Left hydronephrosis and hydroureter without obstruction on CT (04/11). Currently voiding well, no CVA tenderness. UA (-)04/26. Not noted on CT on . - Continue to monitor I's and O's. (7) HTN (hypertension) Code(s): I10 - Essential (primary) hypertension Status: Acute Plan: Continue Cardizem and amiodarone (8) Diabetes Code(s): E11.9 - Type 2 diabetes mellitus without complications Status: Acute Plan: Hx of DM -Held home glipizide, Januvia -Accu-Cheks -Low-dose sliding scale -Hypoglycemia protocol in place (9) Malnutrition Code(s): E46 - Unspecified protein-calorie malnutrition Status: Acute Plan: This patient appears thin and possibly malnourished. Patient has significant muscle atrophy in arms and legs that are partially consistent with age and lack of activity. -Diet supplementation with Ensure (10) Suicidal ideation Code(s): R45.851 - Suicidal ideations Status: Acute Plan: Nurse reported that patient expressed fluctuating suicidal ideation and refusal of taking his medications om 05/11. His mood improved later on in the morning. Denies SI/HI -Citalopram 10 mg daily -Continue to assess status (11) Anisocoria Code(s): H57.02 - Anisocoria Status: Acute Plan: Chronic, reports several operations previously to help correct. Patient unsure of specific cause or diagnoses. Can follow up with Ophthalmology outpatient as needed (12) Sacral ulcer (13) Osteomyelitis of ankle Code(s): M86.9 - Osteomyelitis, unspecified Status: Acute Plan: Osteomyelitis of right ankle, culture positive for MRSA of right thigh wound. Wound culture of right ankle shows Pseudomonas and multidrug resistant Proteus as well as group D enterococcus. Patient more willing to consider BKA. Vascular surgery and palliative to call daughter today for consent to BKA. -Bcx NGTD Vascular surgery consulted * s/p [employer] of popliteal stenosis on 04/24 * Anterior tibial, posterior tibia and peritoneal artery occluded Lower extremity pulses appreciated Via Doppler. Right popliteal pulse appreciated on exam -Balloon angioplasty and atherectomy 05/15 -Possible BKA 05/23/18, palliative and Vascular to call daughter for consent ID consulted, appreciate recs * Continue vancomycin--until Jun 07, 6 weeks after hardware removal for the R hip * Continue Zerbaxa--for the heel ulcer and osteo due to resistance of organisms Wound care consulted, appreciate recs * See note from 04/25 * follow recommendations * Pain management with Plush scheduled, gabapentin, morphine for breakthrough pain Podiatry history; * plan for patient to have calcanectomy on 04/26 however due to patient's inability to recall presurgery discussion when seen by podiatry the morning of 04/26 Dr. Milliron will no longer be performing calcanectomy procedure. * Recommends: betadine wet to dry daily and if foot/heel becomes acutely infected rec as patient is unable to care for himself or able to mentally process limb salvage procedure options. In addition, the likelihood of failure was already high due to the low vascularity to the right lower limb. * Podiatry has signed off. * Discussed option of below-knee amputation of right lower extremity and Patient still not interested (14) Ischemia of foot Code(s): I99.8 - Other disorder of circulatory system Status: Acute Plan: Patient with developing ischemia of right 1st, 2nd toe, and 3rd. Vascular surgery consulted. -Balloon angioplasty and arthrectomy 05/15 -Patient more willing to consider BKA, follow up vascular recommendations, see above (15) Chronic wound of extremity Status: Chronic Plan: Patient currently follows up with wound care as an outpatient Wound management: Right hip wound, super absorbant dressing daily Skin tear lower left extremity, Santyl covered and dry dressing daily Right heel wound, apply gentamicin cream twice daily, see above plan for associated osteomyelitis Wound care consulted, appreciate recommendations * Cleanse wound to R Achilles heel with normal saline only and pat dry. Apply gentamicin mixed with Santyl 50/ 50 and apply to wound bed * Cover with ABD pad, and secure with rolled gauze and tape. Change dressing daily, until seen by podiatry. * Cleanse wound to R hip see updated note from 04/25 and follow ortho rec for dressing * Cleanse wound to L posterior lower leg with normal saline and pat dry. Apply optifoam gentle 4x4 dressing change dressing every 3 days or PRN if saturated or dislodged. * Sacral wound: -Please cleanse sacral area gently with Remedy barrier wipes and pat dry. Apply Cavilon skin barrier film spray to sacral area BID and PRN and leave open to air. -Turn and reposition patient every 2 hours from L to R side limiting time spent on back to P.T. and meals -Patient placed on low airloss bed/ mattress -Will try to get in contact with wound care for re-evaluation of sacral wound , stable on exam -Wound care was reconsulted yesterday because we would like the wound care physician to examine his wound to the right heel. (16) Bandemia Code(s): D72.825 - Bandemia Status: Resolved Plan: Resolved, likely due to osteomyelitis. See above plan. (17) Nutrition, metabolism, and development symptoms Code(s): R63.8 - Other symptoms and signs concerning food and fluid intake Status: Acute Plan: Fluids: per PO Diet: Diabetic supplements with protein shake Electrolytes: monitor and replete as needed DVT prophylaxis: Contraindicated due to upper GI bleed <Saji Richard - 05/23/18 13:30> - Attending Attestation See the residents documentation for details. I saw and evaluated the patient regarding the ford portions of this evaluation and agree with the residents findings and plans as written. Parts of this note were created using [employer] voice recognition software program. While efforts were made to correct any mistakes made by this software, some mistakes, errors, and omissions may remain in the final note that were not caught when the note was originally created. Plan of care was discussed and agreed upon with the patient as specifically documented in the above note. An opportunity to ask questions with explanation was provided. Patient voiced understanding on all information reviewed and discussed. <Pedro Shay - 05/26/18 15:10> <Saji Richard - Last Filed: 05/23/18 13:30> (6) Hydronephrosis Qualifiers: Hydronephrosis type: unspecified Qualified Code(s): N13.30 - Unspecified hydronephrosis (13) Osteomyelitis of ankle Qualifiers: Osteomyelitis type: other chronic Laterality: right Qualified Code(s): M86.671 - Other chronic osteomyelitis, right ankle and foot <Pedro Shay - Last Filed: 05/26/18 15:10> (6) Hydronephrosis Qualifiers: Hydronephrosis type: unspecified Qualified Code(s): N13.30 - Unspecified hydronephrosis <Saji Richard - Last Filed: 05/23/18 13:30> (6) Hydronephrosis Qualifiers: Hydronephrosis type: unspecified Qualified Code(s): N13.30 - Unspecified hydronephrosis (13) Osteomyelitis of ankle Qualifiers: Osteomyelitis type: other chronic Laterality: right Qualified Code(s): M86.671 - Other chronic osteomyelitis, right ankle and foot <Pedro Shay - Last Filed: 05/26/18 15:10> (6) Hydronephrosis Qualifiers: Hydronephrosis type: unspecified Qualified Code(s): N13.30 - Unspecified hydronephrosis
--- NOTE | 2018-05-23 11:10 | P.PNID ---
Subjective Remarks: Patient is an 87-year-old male, admitted to the hospital for evaluation of low hemoglobin. There was apparently episodes of black tarry stools. He had a GI workup on this admission, and he seemed to be stable from the GI standpoint. Patient apparently has had a wound on his right heel Achilles area. He had vascular workup, and underwent aortogram around April 08, and had atherectomy of the right SFA and popliteal area. Patient could not really tell me how long he has had the open wound. He has pain when he walks. There is been no fever and chills. On this admission podiatry was consulted. 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 There is a foul odor coming out from that right foot, and patient really could not notice any difference. Since admission he has not been febrile. He has significant pain whenever his RLE gets moved. There was a culture from a right thigh wound that has MRSA. I do not see any culture from the right foot. His initial WBC was around 14,000 and that is down to normal. Blood cultures are negative. Infectious disease consultation has been requested to evaluate the patient. Notes reviewed Temps ok Still with pain Vascular surgery notes reviewed Spoke with Diana GALAN Palliative medicine - daughter has now agreed to amputation Had vascular procedure to RLE 05/15 Had surgery R hip 04/27 - removal of hardware Intraop C/S negative Underwent revascularization 04/24 C/S from ankle with MDR PSAE, Proteus and Enterococcus C/S R thigh MRSA (wound) Antibiotics: Vancomycin Zerbaxa Lines: PIV Past Medical History: Weakness Diabetes HLD (hyperlipidemia) MDRO (multiple drug resistant organisms) resistance Onset Date: ~04/11/18 MRSA (methicillin resistant Staphylococcus aureus) PAD (peripheral artery disease) Hip surgery Allergies/Adverse Reactions: Allergies No Known Allergies Allergy (Verified 04/08/18 12:35) Objective Vital Signs 05/22/18 12:00 05/22/18 12:03 05/22/18 16:00 Temperature 97.3 F L 97.5 F L Pulse Rate 60 62 Respiratory Rate 18 20 14 Blood Pressure 105/56 L 140/65 Pulse Oximetry 96 99 05/22/18 18:01 05/22/18 19:45 05/22/18 19:56 Temperature Pulse Rate 57 L Respiratory Rate 20 18 Blood Pressure Pulse Oximetry 05/22/18 20:00 05/22/18 23:57 05/23/18 00:00 Temperature 97.3 F L 97.8 F Pulse Rate 60 55 L 57 L Respiratory Rate 20 20 Blood Pressure 115/56 L 99/57 L Pulse Oximetry 97 93 L 05/23/18 03:50 05/23/18 04:00 05/23/18 08:00 Temperature 98.0 F 97.3 F L Pulse Rate 58 L 58 L 54 L Respiratory Rate 20 18 Blood Pressure 132/63 99/59 L Pulse Oximetry 95 99 05/23/18 11:00 Temperature Pulse Rate Respiratory Rate 20 Blood Pressure Pulse Oximetry Intake & Output 05/22/18 05/23/18 05/23/18 18:59 06:59 18:59 Intake Total 842.5 / 842.5 480 / 480 Balance 842.5 / 842.5 480 / 480 Intake: IV 362.5 / 362.5 200 / 200 Zerbaxa Inj 1,500 MG In NS Inj 100 / 100 200 / 200 100 ML @ 100 mls/hr IV.SIG Q8H ACE Rx#:[id number] Vancomycin Inj 1,250 MG In NS 262.5 / 262.5 Inj 250 ML @ 250 mls/hr IV.SIG Q24H ACE Rx#:[id number] Oral 480 / 480 280 / 280 Other: # Incontinent Voids 3 Date of Last Bowel Movement 05/22/18 # Bowel Movements 0 # Incontinent Bowel Movements 2 Lab - Hematology Results 05/23/18 04:33 WBC 7.0 RBC 2.86 L Hgb 8.8 L Hct 25.7 L MCV 90.0 MCH 30.9 MCHC 34.4 RDW 21.8 H Plt Count 374 MPV 7.2 Prelim Diff (Auto) Slide review pending Neut % (Auto) 57.1 Lymph % (Auto) 20.3 [place] % (Auto) 10.5 H Eos % (Auto) 10.0 H Baso % (Auto) 2.1 H Neut # (Auto) 4.0 Lymph # (Auto) 1.4 [place] # (Auto) 0.7 Eos # (Auto) 0.7 H Baso # (Auto) 0.2 WBC Differential . Diff Scan Auto diff confirmed Differential Comment . Platelet Estimate Normal Platelet Morphology Clumped H Lab - Chemistry Results 05/21/18 05/21/18 05/21/18 12:43 17:03 23:15 Sodium Potassium Chloride Carbon Dioxide Anion Gap BUN Creatinine Estimated GFR POC Glucose 127 H 140 H 213 H Random Glucose Calcium 05/22/18 05/22/18 05/22/18 07:47 11:47 17:14 Sodium Potassium Chloride Carbon Dioxide Anion Gap BUN Creatinine Estimated GFR POC Glucose 113 H 112 H 150 H Random Glucose Calcium 05/22/18 05/23/18 05/23/18 19:25 04:33 07:32 Sodium 126 L Potassium 4.9 Chloride 92 L Carbon Dioxide 26.5 Anion Gap 8 BUN 12 Creatinine 0.58 L Estimated GFR Greater than 89 POC Glucose 147 H 110 Random Glucose 94 Calcium 7.7 L Imaging: ITS Impressions Head CT 04/11/18 11:59 CONCLUSION: 1. Stable appearance of the brain. . Ankle MRI 04/15/18 00:00 CONCLUSION: 1. Osteomyelitis of the posterior calcaneus with a near complete tear of the distal Achilles tendon. There is overlying cellulitis and subcutaneous edema with a small abscess adjacent to the distal Achilles tendon as measured above. There is edematous change on the plantar aspect of the foot with a tenosynovitis as above. No acute fracture identified. Mild bone edema tibia, nonspecific. Ankle X-Ray 04/15/18 00:00 CONCLUSION: Osteomyelitis of the posterior calcaneus with overlying soft tissue swelling and ulceration. No acute fracture. Femur MRI 04/25/18 00:00 CONCLUSION: 1. 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 The collection appears to communicate with the prosthetic component in the proximal femur. 2. Edematous changes are noted along the vastus lateralis and iliotibial band. Hip X-Ray 04/27/18 00:00 CONCLUSION: Hardware removal on the right. Abdomen/Pelvis CT 04/30/18 10:28 Review of bone windows reveals moderate degenerative changes in the lumbar spine and both SI joints. CONCLUSION: 1. Large bolus of stool in the rectum with stool throughout the colon suggesting constipation with possible impaction 2. Prominent gallbladder without stones 3. 2 nonobstructing stones in the left kidney. Physical Exam: GENERAL: awake and alert, not in respiratory distress. SKIN: Cool and dry. No generalized rash. EYES: [place] conjunctiva. No petechia or hemorrhage. No scleral icterus. No injection or drainage. EARS, NOSE AND THROAT: Mucous membranes pink and moist. No oral lesions noted. NECK: Trachea midline. Supple and not tender, no meningeal signs CARDIOVASCULAR: Regular rate and rhythm. No murmurs, rubs or gallops heard RESPIRATORY: Clear to auscultation. Breath sounds equal bilaterally. No rales , wheezing or rhonchi ABDOMEN: Soft, non-tender, nondistended. Bowel sounds present and normoactive. . EXTREMITIES: No clubbing, cyanosis, or edema. 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 Wounds on dorsum with small amount of drainage. Black eschar on his R heel and posterior ankle, no odor. Dressing R hip with serosanguineous drainage NEURO: Awake and alert PSYCH: Cooperative LINE: No evidence of infection Assessment and Plan - Plan Impression Non-healing wound R heel/achilles area with abscess and osteo posterior calcaneus PVD S/P revascularization RLE 04/24 Infection R femur, has sinus tract on MRI, S/P RAZA, C/S MRSA GIB Leukocytosis, resolved Anemia Recommendation Continue IV Vanco - needs until Jun 07, 6 weeks after hardware removal for the R hip - will need PICC - labs weekly while on IV vanco: CBC, creat, LFT and Vanco trough - this can be done in SNF Continue Zerbaxa - stop after his amputation is done Palliative medicine following D/W VANESA
--- NOTE | 2018-05-23 11:33 | P.PNPAL ---
Reason for Visit Reason for visit: a. To assist with evaluation and management of symptoms including: Pain, weakness b. To assist medical decision maker(s) with: better understanding of current medical conditions; weighing benefits/burdens of medical treatment options; making medical treatment decisions. Subjective Subjective/Interval History: This is an 87-year-old male transferred from the nursing facility on 04/11 to the emergency department for low hemoglobin. The patient had just been seen by Dr. Oliva and had undergone arteriogram with lower extremity angiogram, right SFA and popliteal atherectomy to the right lower extremity. He was found to be confused, aware only of his name and that he was at the hospital. Patient is seen today for follow-up of symptom management for pain and weakness and to assist family in goals of medical treatment. Right leg remains painful, 11/24 pain patient was given Topock 10/325 mg at 11 AM. His prior dose had been administrated 5:30 AM. He receives an average of 5 -6 doses daily. He describes the pain as mostly in his right foot with lesser pain in the right thigh, constant, aching, improved but not relieved by Topock, exacerbated by movement. He has muscle wasting and has been bedbound for some time. His prior ambulatory status is unclear but reportedly was able to stand with some ambulatory ability. His right foot has a large heel wound as well as 3 ischemic toes. Previous peripheral vascular interventions have been attempted, however the patient is noted by vascular surgery to have severe microvascular disease. . Family/Friend Interactions: Contacted the daughter, Eaw Escobedo, by telephone with nurse, Lexi Brooks, and nurse refractory manager, Debora Gunter as witnesses. We briefly reviewed the decision presented to either continue antibiotic therapy which was felt to be very likely to fail due to poor delivery of antibiotic to the tissue secondary to severe microvascular disease versus below the knee amputation to eliminate the ischemic and infected limb and to improve her father's quality of life by better pain management. She stated that she had thought about it to a great extent and that if her father was agreeable she would consent to proceed with the amputation. All questions were answered and adequate time for discussion allowed. I advised her that I would follow up with her and let her know whether and when the amputation would be done after discussion with Dr. Tomlin and her father.. Advance Directives Living Will: Completed, but not made available Health Care Surrogate: Completed, but not made available Durable Power of In Flight Refueling Craftsman: Completed, but not made available Objective Vital Signs: Vital Signs 05/22/18 12:00 05/22/18 12:03 05/22/18 16:00 Temperature 97.3 F L 97.5 F L Pulse Rate 60 62 Respiratory Rate 18 20 14 Blood Pressure 105/56 L 140/65 Pulse Oximetry 96 99 05/22/18 18:01 05/22/18 19:45 05/22/18 19:56 Temperature Pulse Rate 57 L Respiratory Rate 20 18 Blood Pressure Pulse Oximetry 05/22/18 20:00 05/22/18 23:57 05/23/18 00:00 Temperature 97.3 F L 97.8 F Pulse Rate 60 55 L 57 L Respiratory Rate 20 20 Blood Pressure 115/56 L 99/57 L Pulse Oximetry 97 93 L 05/23/18 03:50 05/23/18 04:00 05/23/18 08:00 Temperature 98.0 F 97.3 F L Pulse Rate 58 L 58 L 54 L Respiratory Rate 20 18 Blood Pressure 132/63 99/59 L Pulse Oximetry 95 99 05/23/18 11:00 Temperature Pulse Rate Respiratory Rate 20 Blood Pressure Pulse Oximetry Intake & Output 05/22/18 05/23/18 05/23/18 18:59 06:59 18:59 Intake Total 842.5 / 842.5 480 / 480 Balance 842.5 / 842.5 480 / 480 Intake: IV 362.5 / 362.5 200 / 200 Zerbaxa Inj 1,500 MG In NS Inj 100 / 100 200 / 200 100 ML @ 100 mls/hr IV.SIG Q8H [facility] Rx#:[id number] Vancomycin Inj 1,250 MG In NS 262.5 / 262.5 Inj 250 ML @ 250 mls/hr IV.SIG Q24H ACE Rx#:[id number] Oral 480 / 480 280 / 280 Other: # Incontinent Voids 3 Date of Last Bowel Movement 05/22/18 # Bowel Movements 0 # Incontinent Bowel Movements 2 Physical Exam: CONSTITUTIONAL/GENERAL: This is elderly, cachectic male patient, in no apparent distress. TUBES/LINES/DRAINS: PIV SKIN: Scattered ecchymosis on upper and lower extremities, skin is dry with purpling on right second and third toes, right great toe, multiple abrasions and wounds on feet and ankles bilaterally, large ecchymotic right heel decubitus , dressed CDI. HEAD: Atraumatic. Normocephalic. EYES: Left pupil 4 mm and oblong from previous traumatic injury, right pupil 2 mm and reactive, extraocular motions intact. No scleral icterus. No injection or drainage. Fundi not examined. CARDIOVASCULAR: Regular rate and rhythm with 2/6 systolic ejection murmurs, no gallops, or rubs. No JVD. Peripheral pulses symmetric. RESPIRATORY/CHEST: Symmetric, unlabored respirations. Clear to auscultation. Breath sounds equal bilaterally. No wheezes, rales, or rhonchi. GASTROINTESTINAL: Abdomen soft, non-tender, nondistended. No hepato-splenomegaly , or palpable masses. No guarding. Bowel sounds present. GENITOURINARY: Without palpable bladder distension. MUSCULOSKELETAL: Extremities without clubbing, cyanosis, or edema. No joint tenderness or effusion noted. NEUROLOGICAL: Awake and alert. Generalized weakness. Follows commands. Cognitively he is pleasantly and intermittently confused. At times he appears quite lucid, other times confused. He consistently shows poor insight into the scope of his illness. Moves all extremities but has difficulty with bilateral lower extremities right greater than left secondary to pain. PSYCHIATRIC: No obvious anxiety/depression. no apparent hallucinations or other psychotic thought process. . Diagnostic Tests Laboratory: Laboratory Results - last 72 hr 05/20/18 05/20/18 05/20/18 12:40 15:54 19:45 WBC RBC Hgb Hct MCV MCH MCHC RDW Plt Count MPV Prelim Diff (Auto) Neut % (Auto) Lymph % (Auto) [place] % (Auto) Eos % (Auto) Baso % (Auto) Neut # (Auto) Lymph # (Auto) [place] # (Auto) Eos # (Auto) Baso # (Auto) WBC Differential Diff Scan Differential Comment Platelet Estimate Platelet Morphology Sodium Potassium Chloride Carbon Dioxide Anion Gap BUN Creatinine Estimated GFR POC Glucose 172 H 82 177 H Random Glucose Calcium Blood Type Antibody Screen 05/21/18 05/21/18 05/21/18 04:20 09:13 12:43 WBC RBC Hgb Hct MCV MCH MCHC RDW Plt Count MPV Prelim Diff (Auto) Neut % (Auto) Lymph % (Auto) [place] % (Auto) Eos % (Auto) Baso % (Auto) Neut # (Auto) Lymph # (Auto) [place] # (Auto) Eos # (Auto) Baso # (Auto) WBC Differential Diff Scan Differential Comment Platelet Estimate Platelet Morphology Sodium Potassium Chloride Carbon Dioxide Anion Gap BUN Creatinine 0.49 L Estimated GFR Greater than 89 POC Glucose 137 H 127 H Random Glucose Calcium Blood Type Antibody Screen 05/21/18 05/21/18 05/21/18 17:03 19:00 23:15 WBC RBC Hgb Hct MCV MCH MCHC RDW Plt Count MPV Prelim Diff (Auto) Neut % (Auto) Lymph % (Auto) [place] % (Auto) Eos % (Auto) Baso % (Auto) Neut # (Auto) Lymph # (Auto) [place] # (Auto) Eos # (Auto) Baso # (Auto) WBC Differential Diff Scan Differential Comment Platelet Estimate Platelet Morphology Sodium Potassium Chloride Carbon Dioxide Anion Gap BUN Creatinine Estimated GFR POC Glucose 140 H 213 H Random Glucose Calcium Blood Type A Positive Antibody Screen Negative 05/22/18 05/22/18 05/22/18 07:47 11:47 17:14 WBC RBC Hgb Hct MCV MCH MCHC RDW Plt Count MPV Prelim Diff (Auto) Neut % (Auto) Lymph % (Auto) [place] % (Auto) Eos % (Auto) Baso % (Auto) Neut # (Auto) Lymph # (Auto) [place] # (Auto) Eos # (Auto) Baso # (Auto) WBC Differential Diff Scan Differential Comment Platelet Estimate Platelet Morphology Sodium Potassium Chloride Carbon Dioxide Anion Gap BUN Creatinine Estimated GFR POC Glucose 113 H 112 H 150 H Random Glucose Calcium Blood Type Antibody Screen 05/22/18 05/23/18 05/23/18 19:25 04:33 04:33 WBC 7.0 RBC 2.86 L Hgb 8.8 L Hct 25.7 L MCV 90.0 MCH 30.9 MCHC 34.4 RDW 21.8 H Plt Count 374 MPV 7.2 Prelim Diff (Auto) Slide review pending Neut % (Auto) 57.1 Lymph % (Auto) 20.3 [place] % (Auto) 10.5 H Eos % (Auto) 10.0 H Baso % (Auto) 2.1 H Neut # (Auto) 4.0 Lymph # (Auto) 1.4 [place] # (Auto) 0.7 Eos # (Auto) 0.7 H Baso # (Auto) 0.2 WBC Differential . Diff Scan Auto diff confirmed Differential Comment . Platelet Estimate Normal Platelet Morphology Clumped H Sodium 126 L Potassium 4.9 Chloride 92 L Carbon Dioxide 26.5 Anion Gap 8 BUN 12 Creatinine 0.58 L Estimated GFR Greater than 89 POC Glucose 147 H Random Glucose 94 Calcium 7.7 L Blood Type Antibody Screen 05/23/18 07:32 WBC RBC Hgb Hct MCV MCH MCHC RDW Plt Count MPV Prelim Diff (Auto) Neut % (Auto) Lymph % (Auto) [place] % (Auto) Eos % (Auto) Baso % (Auto) Neut # (Auto) Lymph # (Auto) [place] # (Auto) Eos # (Auto) Baso # (Auto) WBC Differential Diff Scan Differential Comment Platelet Estimate Platelet Morphology Sodium Potassium Chloride Carbon Dioxide Anion Gap BUN Creatinine Estimated GFR POC Glucose 110 Random Glucose Calcium Blood Type Antibody Screen Result Diagrams: 05/23/18 04:33 05/23/18 04:33 Imaging: ITS Impressions Head CT 04/11/18 11:59 CONCLUSION: 1. Stable appearance of the brain. . Ankle MRI 04/15/18 00:00 CONCLUSION: 1. Osteomyelitis of the posterior calcaneus with a near complete tear of the distal Achilles tendon. There is overlying cellulitis and subcutaneous edema with a small abscess adjacent to the distal Achilles tendon as measured above. There is edematous change on the plantar aspect of the foot with a tenosynovitis as above. No acute fracture identified. Mild bone edema tibia, nonspecific. Ankle X-Ray 04/15/18 00:00 CONCLUSION: Osteomyelitis of the posterior calcaneus with overlying soft tissue swelling and ulceration. No acute fracture. Femur MRI 04/25/18 00:00 CONCLUSION: 1. 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 The collection appears to communicate with the prosthetic component in the proximal femur. 2. Edematous changes are noted along the vastus lateralis and iliotibial band. Hip X-Ray 04/27/18 00:00 CONCLUSION: Hardware removal on the right. Abdomen/Pelvis CT 04/30/18 10:28 Review of bone windows reveals moderate degenerative changes in the lumbar spine and both SI joints. CONCLUSION: 1. Large bolus of stool in the rectum with stool throughout the colon suggesting constipation with possible impaction 2. Prominent gallbladder without stones 3. 2 nonobstructing stones in the left kidney. Procedures: 04/14: Colonoscopy 04/19: Endoscopy 04/24: Right lower extremity angiogram, right popliteal CUSTODY ASSISTANT. 04/27: Removal of hardware right femur, Synthes TFN, irrigation and debridement of skin, subcu tissue, muscle and bone with insertion of Stimulan and antibiotic beads spacer. Assessment and Plan Pertinent Non-Medical Issues: Psychosocial: He was born in [place] and retired from [employer]. He has been twice and is now . He has 2 children that live in [facility]. His daughter Ewa is his healthcare decision maker. Spiritual: Middle School Counselor available. Legal: Has an elder care flavor maker, Rubin Sequeira Ethical issues impacting care: Patient is confused. . Important Contacts: Daughter: Ewa Tovar ([facility]) [phone] marketing and development coordinator: Kyleigh Landa (HIPPA release on chart for her to receive info) In Flight Refueling Craftsman: Rubin Sequeira Prognosis: His prognosis is guarded. He is of advanced age with multiple comorbidities. He has several chronic nonhealing wounds, severe peripheral artery disease and a large calcaneal ulcer on his right heel. He has a draining wound on his right hip and is at elevated risk for continued infections, complications, possible loss of limb, sepsis and even . He is currently refusing amputation of the right foot but has poor insight, is confused and does not appear to have capacity to make that decision. Contact being established with patient's hospice spiritual care coordinator and daughter to clarify goals however, decreased vascularity to his periphery raises his risk of continued infection and failure regardless of the decision to amputate or not. . Code Status: No Code DNR Plan: PLAN: Legal decision maker: Patient is not capacitated for decision-making. His daughter Ewa has been designated as his healthcare proxy and she lives in [facility]. To that end she has hired a local hospice spiritual care coordinator, Kyleigh Landa, to assist her in decision-making. Goals: To be determined. CODE STATUS: DO NOT RESUSCITATE SYMPTOMS: * Pain: He complains of pain in the right foot and heel, worse with movement, intermittent, stabbing with no relieving factors except lying still and opioids. He is receiving hydrocodone/acetaminophen/10/325 every 4 hours as needed and gabapentin 600 mg 3 times daily. He is taking an average of 4-6 Topock tablets daily, which reduces but does not eliminate his pain. He remains painful after atherectomy and angioplasty. Although not capacitated for decision-making, he states he would consider amputation. Per my witness discussion with the daughter, she consents to amputation. Dr. Tomlin notified. Consents witnessed with nurse Lexi and nurse refractory manager Debora Gunter. * Weakness: He is generally weak but was reportedly somewhat ambulatory with assistance at [facility], per the guardian. Given the wounds on his heel, progressive ischemia of the second toe and prolonged hospitalization, he would likely not walk again with or without BKA. As the wound with or without antibiotics is considered to be not healable, family's decision is to proceed with amputation. Palliative care will continue to follow the patient during hospital course as condition evolves, to assist patient/decision-maker with understanding of their medical conditions, weighing benefits/burdens of treatment options, for clarification of goals of treatment. Additionally will assist with any symptoms of palliative concern. . Attestation Attestation: To help prompt me to consider important information that might be impacting today's encounter and assessment, information from prior notes written by myself or my colleagues may have been "brought forward" into today's note. My signature on this note, however, is an attestation that I personally performed the exam, history, and/or decision-making noted today, and, unless otherwise indicated, the interactions with patient, family, and staff as well as the review of records all occurred today. I also attest that the listed assessment and stated plan reflect my best clinical judgment today based on the combination of historical information, prior notes, and today's exam/ interactions. When time spent is documented, it refers only to time spent today by the signer, or if indicated, combined time spent today by collaborating physician/nurse practitioner. .
[2018-05-23] MEDS: Gentamicin 0.1% Cream 15 GM Cream TOPICAL SCH ×2 (14:48→22:16)
[2018-05-23] MEDS: Collagenase Oint 30 GM Tube TOPICAL SCH (14:48)
[2018-05-23] MEDS: Vancomycin Inj 1,250 MG in Sodium Chlor 0.9% Inj 250 ML IV.SIG SCH (15:20)
[2018-05-23] MEDS ORDERED: Sugammadex Inj 200 MG/2 ML Vial IV.PUSH ONE (16:02)
[2018-05-23 16:39] LABS: Hematocrit 24.4 % (39.0-51.0); Hemoglobin 8.3 gm/dL (13.0-17.0)
--- NOTE | 2018-05-23 16:50 | P.OP ---
Preoperative Diagnosis: Right lower extremity gangrene Postoperative Diagnosis: Right lower extremity gangrene Date of procedure: 05/23/18 Procedure: Right below-knee amputation Anesthesia: GETA Surgeon: Saji Tomlin MD Estimated blood loss (mL): 100 Operation and Findings: Operation The patient was taken to the operating room, laid supine on the OR table. After general trach anesthesia the patient was prepped and draped in the standard sterile fashion. Timeout was called with all members and they are in agreement. Incision was made about 4 fingerbreadths below the tibial tuberosity. Dissection was taken down through the subcutaneous tissues electrocautery. The neurovascular bundle of the posterior compartment was ligated and divided. The neurovascular bundle of the anterior compartment was ligated and divided. Both the tibia and fibula were divided. The amputation was completed and posterior flap was created. Hemostasis achieved. The wound was closed approximating the fascia using #2 Vicryl suture in a interrupted fashion followed by 3-0 Vicryl suture Monocryl for the skin. Sterile dressing was applied. The patient tolerated the procedure well and was taken to recovery unit in stable condition.
[2018-05-23] MEDS ORDERED: fentaNYL Citrate Inj 100 MCG/2 ML Ampul ONE (17:15)
[2018-05-23] MEDS ORDERED: *morphine SULFATE 4 MG/ML PERIprocedure ONLY ONE (17:19)
[2018-05-23] MEDS ORDERED: *morphine SULFATE 10 MG/ML PERIprocedure ONLY ONE (17:29)
[2018-05-24] MEDS: SODIUM CHLOR 0.9% IV.SIG SCH (06:33)
[2018-05-24] MEDS: Levothyroxine 125 MCG Tablet PO SCH (06:33)
[2018-05-24] MEDS: TAZOBACTAM IV.SIG SCH (06:33)
[2018-05-24] MEDS: CEFTOLOZANE IV.SIG SCH (06:33)
--- NOTE | 2018-05-24 08:39 | P.PNVS ---
Subjective Post Op Day #: 1 Procedure: R BKA Subjective/Hospital Course: no distress, pain controlled resting in bed Objective Vital Signs / I&O: Vital Signs 05/23/18 11:00 05/23/18 12:00 05/23/18 16:57 Temperature 97.8 F 98.5 F Pulse Rate 55 L 96 H Respiratory Rate 20 18 13 Blood Pressure 107/54 L 183/85 H Pulse Oximetry 99 99 05/23/18 17:00 05/23/18 17:15 05/23/18 17:30 Temperature 98.0 F Pulse Rate 96 H 94 H 93 H Respiratory Rate 20 22 19 Blood Pressure 177/88 H 178/82 H 162/72 H Pulse Oximetry 100 100 100 05/23/18 17:45 05/23/18 20:00 05/24/18 00:00 Temperature 97.8 F 97.4 F L Pulse Rate 98 H 80 82 Respiratory Rate 17 17 17 Blood Pressure 152/70 H 117/58 L 120/62 Pulse Oximetry 100 98 95 05/24/18 04:00 Temperature 97.5 F L Pulse Rate 68 Respiratory Rate 17 Blood Pressure 118/56 L Pulse Oximetry 96 Intake & Output 05/23/18 05/24/18 05/24/18 18:59 06:59 18:59 Intake Total 862.5 / 862.5 440 / 440 Output Total 325 / 325 Balance 537.5 / 537.5 440 / 440 Weight 75.9 kg Intake: IV 262.5 / 262.5 200 / 200 Zerbaxa Inj 1,500 MG In NS Inj 200 / 200 100 ML @ 100 mls/hr IV.SIG Q8H [facility] Rx#:[id number] Vancomycin Inj 1,250 MG In NS 262.5 / 262.5 Inj 250 ML @ 250 mls/hr IV.SIG Q24H [facility] Rx#:[id number] Oral 0 / 0 240 / 240 Anesthesia Amount 600 / 600 Output: Estimated Blood Loss 75 / 75 Urine Amount (Catheter) 250 / 250 Condom 250 / 250 Other: # Voids 4 Date of Last Bowel Movement 05/22/18 Exam: R leg wrapped with JUAN MIGUEL no staining or drainage Laboratory Results - last 24 hr 05/23/18 05/23/18 05/23/18 04:33 12:43 15:53 Hgb 8.3 L Hct 24.4 L WBC Differential . Diff Scan Auto diff confirmed Platelet Estimate Normal Platelet Morphology Clumped H POC Glucose 107 05/23/18 05/23/18 18:16 22:03 Hgb Hct WBC Differential Diff Scan Platelet Estimate Platelet Morphology POC Glucose 137 H 195 H Assessment and Plan - Plan POD#1 s/p R BKA 1. Leave dressing in place 2. Continue PT/OT
[2018-05-24] MEDS: Amiodarone 200 MG Tablet PO SCH (08:44)
[2018-05-24] MEDS: Docusate Sodium 100 MG Capsule PO SCH ×2 (08:44→22:42)
[2018-05-24] MEDS: Ascorbic Acid 500 MG Tablet PO SCH ×2 (08:45→22:39)
[2018-05-24] MEDS: Ferrous Sulfate 325 MG Tablet PO SCH ×3 (08:45→18:13)
[2018-05-24] MEDS: Polyethylene Glycol 3350 17 GM Packet PO SCH (08:45)
[2018-05-24] MEDS: Potassium Phos/Sodium Phos 250 MG Tablet PO SCH ×4 (08:45→22:39)
[2018-05-24] MEDS: Gabapentin 300 MG Capsule PO SCH ×3 (08:45→18:13)
--- NOTE | 2018-05-24 09:04 | P.PNFP ---
Subjective Interval history: Patient tolerated BKA well yesterday. He does report pain at the amputation site, however less than the pain he had before. There were no acute events overnight. He denies fever, chills, lightheadedness, dizziness, chest pain, palpitations, shortness of breath, change in bowel habits, dysuria. He is in good spirits today and says that he feels well. <Rene Graves - 05/24/18 13:13> Results - Labs Result diagrams: 05/26/18 08:02 05/26/18 08:02 <Pedro Shay - 05/26/18 15:22> Abnormal lab results 05/25/18 05/25/18 05/26/18 Range/Units 17:56 21:42 08:02 RBC 2.66 L (4.50-5.90) mil/mm3 Hgb 8.3 L (13.0-17.0) gm/dL Hct 24.1 L (39.0-51.0) % RDW 22.2 H (11.6-17.2) % MPV 6.6 L (7.0-11.0) fL [place] % (Auto) 12.7 H (0.0-8.0) % Eos % (Auto) 5.8 H (0.0-4.0) % [place] # (Auto) 1.0 H (0.0-0.9) th/mm3 Eos # (Auto) 0.5 H (0.0-0.4) th/mm3 Sodium (136-145) meq/L Chloride (98-107) meq/L Creatinine (0.60-1.30) mg/dL POC Glucose 158 H 122 H (68-110) mg/dl Random Glucose (74-106) mg/dL Calcium (8.5-10.1) mg/dL 05/26/18 05/26/18 Range/Units 08:02 12:43 RBC (4.50-5.90) mil/mm3 Hgb (13.0-17.0) gm/dL Hct (39.0-51.0) % RDW (11.6-17.2) % MPV (7.0-11.0) fL [place] % (Auto) (0.0-8.0) % Eos % (Auto) (0.0-4.0) % [place] # (Auto) (0.0-0.9) th/mm3 Eos # (Auto) (0.0-0.4) th/mm3 Sodium 125 L (136-145) meq/L Chloride 90 L (98-107) meq/L Creatinine 0.57 L (0.60-1.30) mg/dL POC Glucose 128 H (68-110) mg/dl Random Glucose 108 H (74-106) mg/dL Calcium 8.1 L (8.5-10.1) mg/dL Short CBC 05/26/18 Range/Units 08:02 WBC 8.2 (4.0-11.0) th/mm3 Hgb 8.3 L (13.0-17.0) gm/dL Hct 24.1 L (39.0-51.0) % Plt Count 391 (150-450) th/mm3 BMP 05/26/18 08:02 Sodium 125 L Potassium 4.7 Chloride 90 L Carbon Dioxide 27.0 BUN 10 Creatinine 0.57 L Calcium 8.1 L <Pedro Shay - 05/26/18 15:22> Abnormal lab results 05/23/18 05/23/18 05/23/18 Range/Units 15:53 18:16 22:03 Hgb 8.3 L (13.0-17.0) gm/dL Hct 24.4 L (39.0-51.0) % POC Glucose 137 H 195 H (68-110) mg/dl Short CBC 05/23/18 Range/Units 15:53 Hgb 8.3 L (13.0-17.0) gm/dL Hct 24.4 L (39.0-51.0) % <Rene Graves - 05/24/18 09:03> Physical Exam Vital signs: Vital Signs 05/25/18 16:00 05/25/18 20:00 05/25/18 22:10 Temperature 98.0 F 98.1 F Pulse Rate 61 65 Respiratory Rate 18 17 18 Blood Pressure 128/60 109/54 L Pulse Oximetry 100 100 05/26/18 00:00 05/26/18 04:00 05/26/18 08:00 Temperature 98 F 97.6 F 97.5 F L Pulse Rate 61 60 62 Respiratory Rate 16 16 17 Blood Pressure 115/60 127/58 L 130/62 Pulse Oximetry 98 98 98 05/26/18 12:00 Temperature 97.6 F Pulse Rate 59 L Respiratory Rate 17 Blood Pressure 126/60 Pulse Oximetry 97 Intake & Output 05/25/18 05/26/18 05/26/18 18:59 06:59 18:59 Intake Total 702.5 / 702.5 240 / 240 Output Total 1000 / 1000 1250 / 1250 Balance -297.5 / -297.5 -1010 / -1010 Weight 71.5 kg Intake: IV 262.5 / 262.5 Vancomycin Inj 1,250 MG In NS 262.5 / 262.5 Inj 250 ML @ 250 mls/hr IV.SIG Q24H [facility] Rx#:[id number] Oral 440 / 440 240 / 240 Output: Urine 1000 / 1000 Urine Amount (Catheter) 1250 / 1250 Condom 1250 / 1250 Other: # Bowel Movements 1 # Incontinent Bowel Movements 2 <Pedro Shay - 05/26/18 15:22> Vital Signs 05/23/18 11:00 05/23/18 12:00 05/23/18 16:57 Temperature 97.8 F 98.5 F Pulse Rate 55 L 96 H Respiratory Rate 20 18 13 Blood Pressure 107/54 L 183/85 H Pulse Oximetry 99 99 05/23/18 17:00 05/23/18 17:15 05/23/18 17:30 Temperature 98.0 F Pulse Rate 96 H 94 H 93 H Respiratory Rate 20 22 19 Blood Pressure 177/88 H 178/82 H 162/72 H Pulse Oximetry 100 100 100 05/23/18 17:45 05/23/18 20:00 05/24/18 00:00 Temperature 97.8 F 97.4 F L Pulse Rate 98 H 80 82 Respiratory Rate 17 17 17 Blood Pressure 152/70 H 117/58 L 120/62 Pulse Oximetry 100 98 95 05/24/18 04:00 Temperature 97.5 F L Pulse Rate 68 Respiratory Rate 17 Blood Pressure 118/56 L Pulse Oximetry 96 Intake & Output 05/23/18 05/24/18 05/24/18 18:59 06:59 18:59 Intake Total 862.5 / 862.5 440 / 440 Output Total 325 / 325 Balance 537.5 / 537.5 440 / 440 Weight 75.9 kg Intake: IV 262.5 / 262.5 200 / 200 Zerbaxa Inj 1,500 MG In NS Inj 200 / 200 100 ML @ 100 mls/hr IV.SIG Q8H [facility] Rx#:[id number] Vancomycin Inj 1,250 MG In NS 262.5 / 262.5 Inj 250 ML @ 250 mls/hr IV.SIG Q24H [facility] Rx#:[id number] Oral 0 / 0 240 / 240 Anesthesia Amount 600 / 600 Output: Estimated Blood Loss 75 / 75 Urine Amount (Catheter) 250 / 250 Condom 250 / 250 Other: # Voids 4 Date of Last Bowel Movement 05/22/18 <Rene Graves - 05/24/18 09:03> Narrative: General: Cachectic elderly male, alert, and in no acute distress. Oriented to person and place. HEENT: Atraumatic, non-icteric sclera and no conjunctival injection, moist mucous membranes Neck: Supple, non-tender without masses or lymphadenopathy, trachea midline, no JVD Cardiac: Regular rate and rhythm Pulmonary: Non-labored breathing. Lungs clear to auscultation bilaterally with good air movement Abdomen: Normal bowel sounds, soft and non-tender without rebound or guarding Extremities: Left lower extremity has no edema and palpable pulses. Right lower extremity is status post BKA with dressing and Espinoza bandage in place, clean dry and intact. <Rene Graves - 05/24/18 12:02> - Urinary Catheter Management Condom Cath placed during this visit: no <Pedro Shay - 05/26/18 15:22> no <Rene Graves - 05/24/18 13:13> Reason for continuing: Not indwelling catheter <Rene Graves - 09:03> Indwelling Urethral Catheter Cath placed during this visit: no <Pedro Shay - 05/26/18 15:22> yes, but has since been removed by the nurse <Rene Graves - 05/24/18 13:13> Reason for continuing: Not indwelling catheter <Rene Graves - 09:03> Insertion date: 04/11/18 <Rene Graves 05/24/18 09:03> Insertion time: 21:08 <Rene Graves - 05/24/18 09:03> Removal date: 04/12/18 <Rene Graves - 05/24/18 09:03> Removal time: 11:35 <Rene Graves - 05/24/18 09:03> Straight Cath placed during this visit: no <Pedro Shay - 05/26/18 15:22> yes <Rene Graves - 05/24/18 13:13> Reason for continuing: Other continuation reason <Rene Graves - 05/24 09:03> Insertion date: 04/11/18 <Rene Graves - 05/24/18 09:03> Insertion time: 21:08 <Rene Graves - 05/24/18 09:03> Assessment and Plan - Assessment (1) S/P BKA (below knee amputation) Code(s): Z89.519 - Acquired absence of unspecified leg below knee Status: Acute (2) Anemia Code(s): D64.9 - Anemia, unspecified Status: Acute (3) Infection associated with internal hip prosthesis Code(s): T84.59XA - Infection and inflammatory reaction due to other internal joint prosthesis, initial encounter; Z96.649 - Presence of unspecified artificial hip joint Status: Acute (4) MRSA (methicillin resistant staph aureus) culture positive Code(s): Z22.322 - Carrier or suspected carrier of Methicillin resistant Staphylococcus aureus Status: Acute (5) PAD (peripheral artery disease) Code(s): I73.9 - Peripheral vascular disease, unspecified Status: Chronic (6) Hydronephrosis Code(s): N13.30 - Unspecified hydronephrosis Status: Resolved (7) HTN (hypertension) Code(s): I10 - Essential (primary) hypertension Status: Acute (8) Diabetes Code(s): E11.9 - Type 2 diabetes mellitus without complications Status: Acute (9) Malnutrition Code(s): E46 - Unspecified protein-calorie malnutrition Status: Acute (10) Suicidal ideation Code(s): R45.851 - Suicidal ideations Status: Acute (11) Anisocoria Code(s): H57.02 - Anisocoria Status: Acute (12) Sacral ulcer Code(s): L98.429 - Non-pressure chronic ulcer of back with unspecified severity Status: Acute <Pedro Shay - 05/26/18 15:22> (1) S/P BKA (below knee amputation) Code(s): Z89.519 - Acquired absence of unspecified leg below knee Status: Acute (2) Anemia Code(s): D64.9 - Anemia, unspecified Status: Acute Plan: (3) Infection associated with internal hip prosthesis Code(s): T84.59XA - Infection and inflammatory reaction due to other internal joint prosthesis, initial encounter; Z96.649 - Presence of unspecified artificial hip joint Status: Acute Plan: (4) MRSA (methicillin resistant staph aureus) culture positive Code(s): Z22.322 - Carrier or suspected carrier of Methicillin resistant Staphylococcus aureus Status: Acute Plan: (5) PAD (peripheral artery disease) Code(s): I73.9 - Peripheral vascular disease, unspecified Status: Chronic Plan: (6) Hydronephrosis Code(s): N13.30 - Unspecified hydronephrosis Status: Resolved Plan: (7) HTN (hypertension) Code(s): I10 - Essential (primary) hypertension Status: Acute Plan: (8) Diabetes Code(s): E11.9 - Type 2 diabetes mellitus without complications Status: Acute Plan: (9) Malnutrition Code(s): E46 - Unspecified protein-calorie malnutrition Status: Acute Plan: (10) Suicidal ideation Code(s): R45.851 - Suicidal ideations Status: Acute Plan: (11) Anisocoria Code(s): H57.02 - Anisocoria Status: Acute Plan: (12) Sacral ulcer Code(s): L98.429 - Non-pressure chronic ulcer of back with unspecified severity Status: Acute <Rene Graves - 05/24/18 13:13> - Assessment and Plan He is an 87-year-old male with a history of hypertension, diabetes, peripheral vascular disease, chronic nonhealing wounds who was originally admitted for anemia. 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 Also during hospitalization he was found to have osteomyelitis and severe peripheral vascular disease in the right lower extremity. He is postop day 1 from BKA. Postop day 1 from BKA -Daily dressing changes per vascular surgery -Physical and Occupational Therapy -Osteomyelitis: Resolved. 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 Anemia: -Hemoglobin is currently stable at 8.3 today -Iron supplementation, give with vitamin C Chronic sacral wound Wound care nurse on board, see their notes for detailed care information History of MRSA and ESBL Pseudomonas/Proteus positive cultures: contact precautions Hypertension: Continue Cardizem and amiodarone Hypothyroidism: Continue Synthroid 125 mcg p.o. daily Diabetes: Home medications glipizide and Januvia are held Low-dose sliding scale insulin -Continue gabapentin 600 mg p.o. 3 times daily for neuropathy Malnutrition: Diet supplementation with Ensure once diet is advanced Depression: He expressed suicidal ideation earlier in this hospitalization. Continue Celexa 10 mg p.o. daily Anisocoria Fluids: Adequate p.o. intake Electrolytes: monitor and replete as needed -Magnesium oxide 400 mg p.o. 4 times daily K-Phos 250 milligrams p.o. 4 times daily -Sodium chloride 1 g p.o. 3 times daily Nutrition: Clear liquid diet GI prophylaxis: Protonix 40 mg p.o. twice daily VTE prophylaxis: <Rene Graves - 05/24/18 13:12> - Attending Attestation See the residents documentation for details. I saw and evaluated the patient regarding the [place] portions of this evaluation and agree with the residents findings and plans as written. Parts of this note were created using [employer] voice recognition software program. While efforts were made to correct any mistakes made by this software, some mistakes, errors, and omissions may remain in the final note that were not caught when the note was originally created. Plan of care was discussed and agreed upon with the patient as specifically documented in the above note. An opportunity to ask questions with explanation was provided. Patient voiced understanding on all information reviewed and discussed. <Pedro Shay - 05/26/18 15:22> <Rene Graves J - Last Filed: 05/24/18 13:13> (6) Hydronephrosis Qualifiers: Hydronephrosis type: unspecified Qualified Code(s): N13.30 - Unspecified hydronephrosis <Pedro Shay - Last Filed: 05/26/18 15:22> (6) Hydronephrosis Qualifiers: Hydronephrosis type: unspecified Qualified Code(s): N13.30 - Unspecified hydronephrosis <Rene Graves J - Last Filed: 05/24/18 13:13> (6) Hydronephrosis Qualifiers: Hydronephrosis type: unspecified Qualified Code(s): N13.30 - Unspecified hydronephrosis <Pedro Shay - Last Filed: 05/26/18 15:22> (6) Hydronephrosis Qualifiers: Hydronephrosis type: unspecified Qualified Code(s): N13.30 - Unspecified hydronephrosis
[2018-05-24] MEDS: Insulin NovoLOG Aspart Correctional Sugar Inj SQ SCH ×4 (10:20→22:40)
[2018-05-24] MEDS: Gentamicin 0.1% Cream 15 GM Cream TOPICAL SCH ×2 (10:21→22:42)
[2018-05-24] MEDS: Collagenase Oint 30 GM Tube TOPICAL SCH (10:21)
[2018-05-24] MEDS: Citalopram 20 MG Tablet PO SCH (10:21)
[2018-05-24] MEDS: Sodium Chloride 1 GM Tablet PO SCH ×3 (10:21→18:14)
[2018-05-24 10:23] LABS: Baso # (Auto) 0.1 th/mm3 (0.0-0.2); Baso % (Auto) 0.6 % (0.0-2.0); Eos # (Auto) 0.1 th/mm3 (0.0-0.4); Eos % (Auto) 0.6 % (0.0-4.0); Hematocrit 25.3 % (39.0-51.0); Hemoglobin 8.7 gm/dL (13.0-17.0); Lymph # (Auto) 1.7 th/mm3 (1.0-4.8); Lymph % (Auto) 15.8 % (9.0-44.0); Mean Corpuscular HGB Conc 34.3 % (32.0-36.0); Mean Corpuscular Hemoglobin 31.2 pg (27.0-34.0); Mean Corpuscular Volume 91.1 fL (80.0-100.0); Mean Platelet Volume 6.6 fL (7.0-11.0); Mono # (Auto) 1.3 th/mm3 (0.0-0.9); Mono % (Auto) 12.4 % (0.0-8.0); Neut # (Auto) 7.5 th/mm3 (1.8-7.7); Neut % (Auto) 70.6 % (16.0-70.0); Platelet Count 433 th/mm3 (150-450); Red Blood Count 2.77 mil/mm3 (4.50-5.90); Red Cell Distribution Width 22.1 % (11.6-17.2); White Blood Count 10.6 th/mm3 (4.0-11.0)
[2018-05-24 10:45] LABS: Anion Gap 7 meq/L (5-15); Blood Urea Nitrogen 15 mg/dL (7-18); Calcium 8.3 mg/dL (8.5-10.1); Carbon Dioxide 25.9 meq/L (21.0-32.0); Chloride 93 meq/L (98-107); Glomerular Filtration Rate Greater Than 89 mL/min (>89); Glucose,Random 121 mg/dL (74-106); Potassium 5.4 meq/L (3.5-5.1); Sodium 126 meq/L (136-145)
[2018-05-24] MEDS: Magnesium Oxide 400 MG Tablet PO SCH ×4 (11:37→22:39)
[2018-05-24] MEDS ORDERED: Pharmacy Ordered Lab Info OTHER ONE (14:45)
[2018-05-24] MEDS: Vancomycin Inj 1,250 MG in Sodium Chlor 0.9% Inj 250 ML IV.SIG SCH (17:33)
[2018-05-25] MEDS: Levothyroxine 125 MCG Tablet PO SCH (05:52)
[2018-05-25 06:53] LABS: Baso # (Auto) 0.1 th/mm3 (0.0-0.2); Baso % (Auto) 1.3 % (0.0-2.0); Eos # (Auto) 0.5 th/mm3 (0.0-0.4); Eos % (Auto) 6.7 % (0.0-4.0); Hemoglobin 8.7 gm/dL (13.0-17.0); Lymph # (Auto) 1.5 th/mm3 (1.0-4.8); Lymph % (Auto) 19.4 % (9.0-44.0); Mean Corpuscular HGB Conc 34.7 % (32.0-36.0); Mean Corpuscular Hemoglobin 30.8 pg (27.0-34.0); Mean Corpuscular Volume 88.8 fL (80.0-100.0); Mean Platelet Volume 6.7 fL (7.0-11.0); Mono # (Auto) 1.1 th/mm3 (0.0-0.9); Mono % (Auto) 14.2 % (0.0-8.0); Neut # (Auto) 4.4 th/mm3 (1.8-7.7); Neut % (Auto) 58.4 % (16.0-70.0); Platelet Count 401 th/mm3 (150-450); Red Blood Count 2.82 mil/mm3 (4.50-5.90); Red Cell Distribution Width 22.1 % (11.6-17.2); White Blood Count 7.6 th/mm3 (4.0-11.0)
[2018-05-25 07:25] LABS: Anion Gap 9 meq/L (5-15); Blood Urea Nitrogen 10 mg/dL (7-18); Calcium 7.8 mg/dL (8.5-10.1); Carbon Dioxide 25.6 meq/L (21.0-32.0); Chloride 94 meq/L (98-107); Glomerular Filtration Rate Greater Than 89 mL/min (>89); Glucose,Random 99 mg/dL (74-106); Potassium 4.8 meq/L (3.5-5.1); Sodium 129 meq/L (136-145)
--- NOTE | 2018-05-25 09:12 | P.PNFP ---
Subjective Interval history: Patient seen and examined today. No acute events overnight. Patient reports some pain in his right leg stump. Denies nausea, vomiting, fever, chills, abdominal pain, chest pain, shortness of breath, lightheadedness , dizziness, change in his bowel or bladder habits. No other complaints today. <Saji Richard - 05/25/18 09:12> Results - Labs Result diagrams: 05/26/18 08:02 05/26/18 08:02 <Pedro Shay - 05/26/18 15:23> Abnormal lab results 05/25/18 05/25/18 05/26/18 Range/Units 17:56 21:42 08:02 RBC 2.66 L (4.50-5.90) mil/mm3 Hgb 8.3 L (13.0-17.0) gm/dL Hct 24.1 L (39.0-51.0) % RDW 22.2 H (11.6-17.2) % MPV 6.6 L (7.0-11.0) fL [place] % (Auto) 12.7 H (0.0-8.0) % Eos % (Auto) 5.8 H (0.0-4.0) % [place] # (Auto) 1.0 H (0.0-0.9) th/mm3 Eos # (Auto) 0.5 H (0.0-0.4) th/mm3 Sodium (136-145) meq/L Chloride (98-107) meq/L Creatinine (0.60-1.30) mg/dL POC Glucose 158 H 122 H (68-110) mg/dl Random Glucose (74-106) mg/dL Calcium (8.5-10.1) mg/dL 05/26/18 05/26/18 Range/Units 08:02 12:43 RBC (4.50-5.90) mil/mm3 Hgb (13.0-17.0) gm/dL Hct (39.0-51.0) % RDW (11.6-17.2) % MPV (7.0-11.0) fL [place] % (Auto) (0.0-8.0) % Eos % (Auto) (0.0-4.0) % [place] # (Auto) (0.0-0.9) th/mm3 Eos # (Auto) (0.0-0.4) th/mm3 Sodium 125 L (136-145) meq/L Chloride 90 L (98-107) meq/L Creatinine 0.57 L (0.60-1.30) mg/dL POC Glucose 128 H (68-110) mg/dl Random Glucose 108 H (74-106) mg/dL Calcium 8.1 L (8.5-10.1) mg/dL Short CBC 05/26/18 Range/Units 08:02 WBC 8.2 (4.0-11.0) th/mm3 Hgb 8.3 L (13.0-17.0) gm/dL Hct 24.1 L (39.0-51.0) % Plt Count 391 (150-450) th/mm3 BMP 05/26/18 08:02 Sodium 125 L Potassium 4.7 Chloride 90 L Carbon Dioxide 27.0 BUN 10 Creatinine 0.57 L Calcium 8.1 L <Pedro Shay - 05/26/18 15:23> Abnormal lab results 05/24/18 05/24/18 05/24/18 Range/Units 10:07 10:07 11:54 RBC 2.77 L (4.50-5.90) mil/mm3 Hgb 8.7 L (13.0-17.0) gm/dL Hct 25.3 L (39.0-51.0) % RDW 22.1 H (11.6-17.2) % MPV 6.6 L (7.0-11.0) fL Neut % (Auto) 70.6 H (16.0-70.0) % [place] % (Auto) 12.4 H (0.0-8.0) % Eos % (Auto) (0.0-4.0) % [place] # (Auto) 1.3 H (0.0-0.9) th/mm3 Eos # (Auto) (0.0-0.4) th/mm3 Sodium 126 L (136-145) meq/L Potassium 5.4 H (3.5-5.1) meq/L Chloride 93 L (98-107) meq/L Creatinine (0.60-1.30) mg/dL POC Glucose 116 H (68-110) mg/dl Random Glucose 121 H (74-106) mg/dL Calcium 8.3 L (8.5-10.1) mg/dL Vancomycin Trough (5.0-10.0) mcg/mL 05/24/18 05/24/18 05/24/18 Range/Units 11:58 16:37 17:30 RBC (4.50-5.90) mil/mm3 Hgb (13.0-17.0) gm/dL Hct (39.0-51.0) % RDW (11.6-17.2) % MPV (7.0-11.0) fL Neut % (Auto) (16.0-70.0) % [place] % (Auto) (0.0-8.0) % Eos % (Auto) (0.0-4.0) % [place] # (Auto) (0.0-0.9) th/mm3 Eos # (Auto) (0.0-0.4) th/mm3 Sodium (136-145) meq/L Potassium (3.5-5.1) meq/L Chloride (98-107) meq/L Creatinine (0.60-1.30) mg/dL POC Glucose 141 H 151 H (68-110) mg/dl Random Glucose (74-106) mg/dL Calcium (8.5-10.1) mg/dL Vancomycin Trough 13.9 H (5.0-10.0) mcg/mL 05/24/18 05/25/18 05/25/18 Range/Units 20:06 06:05 06:05 RBC 2.82 L (4.50-5.90) mil/mm3 Hgb 8.7 L (13.0-17.0) gm/dL Hct 25.0 L (39.0-51.0) % RDW 22.1 H (11.6-17.2) % MPV 6.7 L (7.0-11.0) fL Neut % (Auto) (16.0-70.0) % [place] % (Auto) 14.2 H (0.0-8.0) % Eos % (Auto) 6.7 H (0.0-4.0) % [place] # (Auto) 1.1 H (0.0-0.9) th/mm3 Eos # (Auto) 0.5 H (0.0-0.4) th/mm3 Sodium 129 L (136-145) meq/L Potassium (3.5-5.1) meq/L Chloride 94 L (98-107) meq/L Creatinine 0.53 L (0.60-1.30) mg/dL POC Glucose 179 H (68-110) mg/dl Random Glucose (74-106) mg/dL Calcium 7.8 L (8.5-10.1) mg/dL Vancomycin Trough (5.0-10.0) mcg/mL 05/25/18 Range/Units 07:49 RBC (4.50-5.90) mil/mm3 Hgb (13.0-17.0) gm/dL Hct (39.0-51.0) % RDW (11.6-17.2) % MPV (7.0-11.0) fL Neut % (Auto) (16.0-70.0) % [place] % (Auto) (0.0-8.0) % Eos % (Auto) (0.0-4.0) % [place] # (Auto) (0.0-0.9) th/mm3 Eos # (Auto) (0.0-0.4) th/mm3 Sodium (136-145) meq/L Potassium (3.5-5.1) meq/L Chloride (98-107) meq/L Creatinine (0.60-1.30) mg/dL POC Glucose 122 H (68-110) mg/dl Random Glucose (74-106) mg/dL Calcium (8.5-10.1) mg/dL Vancomycin Trough (5.0-10.0) mcg/mL Short CBC 05/24/18 05/25/18 Range/Units 10:07 06:05 WBC 10.6 7.6 (4.0-11.0) th/mm3 Hgb 8.7 L 8.7 L (13.0-17.0) gm/dL Hct 25.3 L 25.0 L (39.0-51.0) % Plt Count 433 401 (150-450) th/mm3 BMP 05/24/18 05/25/18 10:07 06:05 Sodium 126 L 129 L Potassium 5.4 H 4.8 Chloride 93 L 94 L Carbon Dioxide 25.9 25.6 BUN 15 10 Creatinine 0.68 0.53 L Calcium 8.3 L 7.8 L <SinakathySaji Alvarez - 05/25/18 09:12> Physical Exam Vital signs: Vital Signs 05/25/18 16:00 05/25/18 20:00 05/25/18 22:10 Temperature 98.0 F 98.1 F Pulse Rate 61 65 Respiratory Rate 18 17 18 Blood Pressure 128/60 109/54 L Pulse Oximetry 100 100 05/26/18 00:00 05/26/18 04:00 05/26/18 08:00 Temperature 98 F 97.6 F 97.5 F L Pulse Rate 61 60 62 Respiratory Rate 16 16 17 Blood Pressure 115/60 127/58 L 130/62 Pulse Oximetry 98 98 98 05/26/18 12:00 Temperature 97.6 F Pulse Rate 59 L Respiratory Rate 17 Blood Pressure 126/60 Pulse Oximetry 97 Intake & Output 05/25/18 05/26/18 05/26/18 18:59 06:59 18:59 Intake Total 702.5 / 702.5 240 / 240 Output Total 1000 / 1000 1250 / 1250 Balance -297.5 / -297.5 -1010 / -1010 Weight 71.5 kg Intake: IV 262.5 / 262.5 Vancomycin Inj 1,250 MG In NS 262.5 / 262.5 Inj 250 ML @ 250 mls/hr IV.SIG Q24H [facility] Rx#:[id number] Oral 440 / 440 240 / 240 Output: Urine 1000 / 1000 Urine Amount (Catheter) 1250 / 1250 Condom 1250 / 1250 Other: # Bowel Movements 1 # Incontinent Bowel Movements 2 <Pedro Shay - 05/26/18 15:23> Vital Signs 05/24/18 12:00 05/24/18 16:00 05/24/18 20:00 Temperature 98.0 F 97.6 F 97.4 F L Pulse Rate 63 63 63 Respiratory Rate 13 15 16 Blood Pressure 124/59 L 112/53 L 120/58 L Pulse Oximetry 99 100 97 05/24/18 23:40 05/25/18 00:00 05/25/18 04:00 Temperature 97.4 F L 97.9 F Pulse Rate 61 78 Respiratory Rate 18 15 18 Blood Pressure 130/68 138/72 Pulse Oximetry 95 98 05/25/18 06:25 Temperature Pulse Rate Respiratory Rate 20 Blood Pressure Pulse Oximetry Intake & Output 05/24/18 05/25/18 05/25/18 18:59 06:59 18:59 Intake Total 480 / 480 502.5 / 502.5 Balance 480 / 480 502.5 / 502.5 Weight 71.6 kg Intake: IV 262.5 / 262.5 Vancomycin Inj 1,250 MG In NS 262.5 / 262.5 Inj 250 ML @ 250 mls/hr IV.SIG Q24H [facility] Rx#:[id number] Oral 480 / 480 240 / 240 Other: # Incontinent Voids 3 4 Date of Last Bowel Movement 05/22/18 <Saji Richard - 05/25/18 09:12> Narrative: General: Cachectic elderly male, alert, and in no acute distress. Oriented to person and place. HEENT: Atraumatic, non-icteric sclera and no conjunctival injection, moist mucous membranes Neck: Supple, non-tender without masses or lymphadenopathy, trachea midline, no JVD Cardiac: Regular rate and rhythm Pulmonary: Non-labored breathing. Lungs clear to auscultation bilaterally with good air movement Abdomen: Normal bowel sounds, soft and non-tender without rebound or guarding Extremities: Left lower extremity has no edema and has palpable pulses. Right lower extremity is status post BKA with dressing and Espinoza bandage in place, clean dry and intact. <Saji Richard - 05/25/18 09:12> - Urinary Catheter Management Condom Cath placed during this visit: no <Pedro Shay - 05/26/18 15:23> no <Saji Richard - 05/25/18 09:12> Reason for continuing: Not indwelling catheter <Saji Richard - 05/25/18 09 :12> Indwelling Urethral Catheter Cath placed during this visit: no <Pedro Shay - 05/26/18 15:23> yes, but has since been removed by the nurse <Saji Richard - 05/25/18 09:12> Reason for continuing: Not indwelling catheter <Saji Richard - 05/25/18 09 :12> Insertion date: 04/11/18 <Saji Richard - 05/25/18 09:12> Insertion time: 21:08 <Saji Richard - 05/25/18 09:12> Removal date: 04/12/18 <Saji Richard - 05/25/18 09:12> Removal time: 11:35 <Saji Richard - 05/25/18 09:12> Straight Cath placed during this visit: no <Pedro Shay - 05/26/18 15:23> yes <Saji Richard - 05/25/18 09:12> Reason for continuing: Other continuation reason <Saji Richard - 05/25/18 09:12> Insertion date: 04/11/18 <Saji Richard - 05/25/18 09:12> Insertion time: 21:08 <Saji Richard - 05/25/18 09:12> Assessment and Plan - Assessment (1) S/P BKA (below knee amputation) Code(s): Z89.519 - Acquired absence of unspecified leg below knee Status: Acute (2) Anemia Code(s): D64.9 - Anemia, unspecified Status: Acute (3) Infection associated with internal hip prosthesis Code(s): T84.59XA - Infection and inflammatory reaction due to other internal joint prosthesis, initial encounter; Z96.649 - Presence of unspecified artificial hip joint Status: Acute (4) MRSA (methicillin resistant staph aureus) culture positive Code(s): Z22.322 - Carrier or suspected carrier of Methicillin resistant Staphylococcus aureus Status: Acute (5) PAD (peripheral artery disease) Code(s): I73.9 - Peripheral vascular disease, unspecified Status: Chronic (6) Hydronephrosis Code(s): N13.30 - Unspecified hydronephrosis Status: Resolved (7) HTN (hypertension) Code(s): I10 - Essential (primary) hypertension Status: Acute (8) Diabetes Code(s): E11.9 - Type 2 diabetes mellitus without complications Status: Acute (9) Malnutrition Code(s): E46 - Unspecified protein-calorie malnutrition Status: Acute (10) Suicidal ideation Code(s): R45.851 - Suicidal ideations Status: Acute (11) Anisocoria Code(s): H57.02 - Anisocoria Status: Acute (12) Sacral ulcer Code(s): L98.429 - Non-pressure chronic ulcer of back with unspecified severity Status: Acute <Pedro Shay - 05/26/18 15:23> (1) S/P BKA (below knee amputation) Code(s): Z89.519 - Acquired absence of unspecified leg below knee Status: Acute (2) Anemia Code(s): D64.9 - Anemia, unspecified Status: Acute Plan: (3) Infection associated with internal hip prosthesis Code(s): T84.59XA - Infection and inflammatory reaction due to other internal joint prosthesis, initial encounter; Z96.649 - Presence of unspecified artificial hip joint Status: Acute Plan: (4) MRSA (methicillin resistant staph aureus) culture positive Code(s): Z22.322 - Carrier or suspected carrier of Methicillin resistant Staphylococcus aureus Status: Acute Plan: (5) PAD (peripheral artery disease) Code(s): I73.9 - Peripheral vascular disease, unspecified Status: Chronic Plan: (6) Hydronephrosis Code(s): N13.30 - Unspecified hydronephrosis Status: Resolved Plan: (7) HTN (hypertension) Code(s): I10 - Essential (primary) hypertension Status: Acute Plan: (8) Diabetes Code(s): E11.9 - Type 2 diabetes mellitus without complications Status: Acute Plan: (9) Malnutrition Code(s): E46 - Unspecified protein-calorie malnutrition Status: Acute Plan: (10) Suicidal ideation Code(s): R45.851 - Suicidal ideations Status: Acute Plan: (11) Anisocoria Code(s): H57.02 - Anisocoria Status: Acute Plan: (12) Sacral ulcer Code(s): L98.429 - Non-pressure chronic ulcer of back with unspecified severity Status: Acute <Saji Richard - 05/25/18 09:01> - Assessment and Plan He is an 87-year-old male with a history of hypertension, diabetes, peripheral vascular disease, chronic nonhealing wounds who was originally admitted for anemia. 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 Also during hospitalization he was found to have osteomyelitis and severe peripheral vascular disease in the right lower extremity. He is postop day from BKA 05/23/18. Postop day 2 from BKA -Daily dressing changes per vascular surgery -Physical and Occupational Therapy -Osteomyelitis: Resolved. 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 Anemia: -Hemoglobin is currently stable at 8.3 today -Iron supplementation, give with vitamin C Chronic sacral wound Wound care nurse on board, see their notes for detailed care information History of MRSA and ESBL Pseudomonas/Proteus positive cultures: contact precautions Hypertension: Continue Cardizem and amiodarone Hypothyroidism: Continue Synthroid 125 mcg p.o. daily Diabetes: Home medications glipizide and Januvia are held Low-dose sliding scale insulin -Continue gabapentin 600 mg p.o. 3 times daily for neuropathy Malnutrition: Diet supplementation with Ensure once diet is advanced Depression: He expressed suicidal ideation earlier in this hospitalization. Continue Celexa 10 mg p.o. daily Anisocoria Fluids: Adequate p.o. intake Electrolytes: monitor and replete as needed -Magnesium oxide 400 mg p.o. 4 times daily K-Phos 250 milligrams p.o. 4 times daily -Sodium chloride 1 g p.o. 3 times daily Nutrition: Clear liquid diet GI prophylaxis: Protonix 40 mg p.o. twice daily VTE prophylaxis: <Saji Richard - 05/25/18 09:12> - Attending Attestation See the residents documentation for details. I saw and evaluated the patient regarding the frod portions of this evaluation and agree with the residents findings and plans as written. Parts of this note were created using [employer] voice recognition software program. While efforts were made to correct any mistakes made by this software, some mistakes, errors, and omissions may remain in the final note that were not caught when the note was originally created. Plan of care was discussed and agreed upon with the patient as specifically documented in the above note. An opportunity to ask questions with explanation was provided. Patient voiced understanding on all information reviewed and discussed. <Pedro Shay - 05/26/18 15:23> <Saji Richard - Last Filed: 05/25/18 09:01> (6) Hydronephrosis Qualifiers: Hydronephrosis type: unspecified Qualified Code(s): N13.30 - Unspecified hydronephrosis <Pedro Shay - Last Filed: 05/26/18 15:23> (6) Hydronephrosis Qualifiers: Hydronephrosis type: unspecified Qualified Code(s): N13.30 - Unspecified hydronephrosis <Saji Richard - Last Filed: 05/25/18 09:01> (6) Hydronephrosis Qualifiers: Hydronephrosis type: unspecified Qualified Code(s): N13.30 - Unspecified hydronephrosis <Pedro Shay - Last Filed: 05/26/18 15:23> (6) Hydronephrosis Qualifiers: Hydronephrosis type: unspecified Qualified Code(s): N13.30 - Unspecified hydronephrosis
[2018-05-25] MEDS: Potassium Phos/Sodium Phos 250 MG Tablet PO SCH ×4 (09:55→21:37)
[2018-05-25] MEDS: Amiodarone 200 MG Tablet PO SCH (09:55)
[2018-05-25] MEDS: Magnesium Oxide 400 MG Tablet PO SCH ×4 (09:56→21:37)
[2018-05-25] MEDS: Sodium Chloride 1 GM Tablet PO SCH ×3 (09:56→18:49)
[2018-05-25] MEDS: Citalopram 20 MG Tablet PO SCH (09:56)
[2018-05-25] MEDS: Gabapentin 300 MG Capsule PO SCH ×3 (09:56→18:48)
[2018-05-25] MEDS: Insulin NovoLOG Aspart Correctional Sugar Inj SQ SCH ×4 (09:57→21:43)
[2018-05-25] MEDS: Ferrous Sulfate 325 MG Tablet PO SCH ×3 (09:57→18:48)
[2018-05-25] MEDS: Gentamicin 0.1% Cream 15 GM Cream TOPICAL SCH ×2 (09:57→21:37)
[2018-05-25] MEDS: Docusate Sodium 100 MG Capsule PO SCH ×2 (09:57→21:37)
[2018-05-25] MEDS: Ascorbic Acid 500 MG Tablet PO SCH ×2 (09:57→21:37)
[2018-05-25] MEDS: Polyethylene Glycol 3350 17 GM Packet PO SCH (09:58)
[2018-05-25] MEDS: Collagenase Oint 30 GM Tube TOPICAL SCH (09:58)
[2018-05-25] MEDS: Vancomycin Inj 1,250 MG in Sodium Chlor 0.9% Inj 250 ML IV.SIG SCH (14:05)
[2018-05-26] MEDS: Levothyroxine 125 MCG Tablet PO SCH (05:17)
[2018-05-26 08:50] LABS: Baso # (Auto) 0.1 th/mm3 (0.0-0.2); Baso % (Auto) 1.6 % (0.0-2.0); Eos # (Auto) 0.5 th/mm3 (0.0-0.4); Eos % (Auto) 5.8 % (0.0-4.0); Hematocrit 24.1 % (39.0-51.0); Hemoglobin 8.3 gm/dL (13.0-17.0); Lymph # (Auto) 1.3 th/mm3 (1.0-4.8); Lymph % (Auto) 16.1 % (9.0-44.0); Mean Corpuscular HGB Conc 34.6 % (32.0-36.0); Mean Corpuscular Hemoglobin 31.3 pg (27.0-34.0); Mean Corpuscular Volume 90.4 fL (80.0-100.0); Mean Platelet Volume 6.6 fL (7.0-11.0); Mono % (Auto) 12.7 % (0.0-8.0); Neut # (Auto) 5.2 th/mm3 (1.8-7.7); Neut % (Auto) 63.8 % (16.0-70.0); Platelet Count 391 th/mm3 (150-450); Red Blood Count 2.66 mil/mm3 (4.50-5.90); Red Cell Distribution Width 22.2 % (11.6-17.2); White Blood Count 8.2 th/mm3 (4.0-11.0)
[2018-05-26 09:15] LABS: Anion Gap 8 meq/L (5-15); Blood Urea Nitrogen 10 mg/dL (7-18); Calcium 8.1 mg/dL (8.5-10.1); Chloride 90 meq/L (98-107); Glomerular Filtration Rate Greater Than 89 mL/min (>89); Glucose,Random 108 mg/dL (74-106); Potassium 4.7 meq/L (3.5-5.1); Sodium 125 meq/L (136-145)
[2018-05-26] MEDS: Sodium Chloride 1 GM Tablet PO SCH ×3 (10:05→17:01)
[2018-05-26] MEDS: Amiodarone 200 MG Tablet PO SCH (10:06)
[2018-05-26] MEDS: Gabapentin 300 MG Capsule PO SCH ×3 (10:06→17:02)
[2018-05-26] MEDS: Ferrous Sulfate 325 MG Tablet PO SCH ×3 (10:06→17:01)
[2018-05-26] MEDS: Potassium Phos/Sodium Phos 250 MG Tablet PO SCH ×4 (10:06→22:41)
[2018-05-26] MEDS: Ascorbic Acid 500 MG Tablet PO SCH ×2 (10:07→22:41)
[2018-05-26] MEDS: Citalopram 20 MG Tablet PO SCH (10:07)
[2018-05-26] MEDS: Magnesium Oxide 400 MG Tablet PO SCH ×4 (10:07→22:40)
[2018-05-26] MEDS: Gentamicin 0.1% Cream 15 GM Cream TOPICAL SCH ×2 (10:08→22:45)
[2018-05-26] MEDS: Insulin NovoLOG Aspart Correctional Sugar Inj SQ SCH ×4 (10:08→22:44)
[2018-05-26] MEDS: Docusate Sodium 100 MG Capsule PO SCH ×2 (10:08→22:40)
[2018-05-26] MEDS: Polyethylene Glycol 3350 17 GM Packet PO SCH (10:08)
[2018-05-26] MEDS: Collagenase Oint 30 GM Tube TOPICAL SCH (10:08)
--- NOTE | 2018-05-26 10:44 | P.PNVS ---
Subjective Post Op Day #: 3 Procedure: R BKA Subjective/Hospital Course: pain controlled resting in bed Objective Vital Signs / I&O: Vital Signs 05/25/18 12:00 05/25/18 14:35 05/25/18 16:00 Temperature 97.6 F 98.0 F Pulse Rate 69 61 Respiratory Rate 18 20 18 Blood Pressure 120/62 128/60 Pulse Oximetry 98 100 05/25/18 20:00 05/25/18 22:10 05/26/18 00:00 Temperature 98.1 F 98 F Pulse Rate 65 61 Respiratory Rate 17 18 16 Blood Pressure 109/54 L 115/60 Pulse Oximetry 100 98 05/26/18 04:00 05/26/18 08:00 Temperature 97.6 F 97.5 F L Pulse Rate 60 62 Respiratory Rate 16 17 Blood Pressure 127/58 L 130/62 Pulse Oximetry 98 98 Intake & Output 05/25/18 05/26/18 05/26/18 18:59 06:59 18:59 Intake Total 702.5 / 702.5 240 / 240 Output Total 1000 / 1000 1250 / 1250 Balance -297.5 / -297.5 -1010 / -1010 Weight 71.5 kg Intake: IV 262.5 / 262.5 Vancomycin Inj 1,250 MG In NS 262.5 / 262.5 Inj 250 ML @ 250 mls/hr IV.SIG Q24H [facility] Rx#:[id number] Oral 440 / 440 240 / 240 Output: Urine 1000 / 1000 Urine Amount (Catheter) 1250 / 1250 Condom 1250 / 1250 Other: # Bowel Movements 1 # Incontinent Bowel Movements 2 Exam: Right BKA stump CDI Laboratory Results - last 24 hr 05/25/18 05/25/18 05/25/18 11:52 17:56 21:42 WBC RBC Hgb Hct MCV MCH MCHC RDW Plt Count MPV Neut % (Auto) Lymph % (Auto) [place] % (Auto) Eos % (Auto) Baso % (Auto) Neut # (Auto) Lymph # (Auto) [place] # (Auto) Eos # (Auto) Baso # (Auto) WBC Differential Differential Comment Sodium Potassium Chloride Carbon Dioxide Anion Gap BUN Creatinine Estimated GFR POC Glucose 139 H 158 H 122 H Random Glucose Calcium 05/26/18 05/26/18 08:02 08:02 WBC 8.2 RBC 2.66 L Hgb 8.3 L Hct 24.1 L MCV 90.4 MCH 31.3 MCHC 34.6 RDW 22.2 H Plt Count 391 MPV 6.6 L Neut % (Auto) 63.8 Lymph % (Auto) 16.1 [place] % (Auto) 12.7 H Eos % (Auto) 5.8 H Baso % (Auto) 1.6 Neut # (Auto) 5.2 Lymph # (Auto) 1.3 [place] # (Auto) 1.0 H Eos # (Auto) 0.5 H Baso # (Auto) 0.1 WBC Differential . Differential Comment Auto diff final Sodium 125 L Potassium 4.7 Chloride 90 L Carbon Dioxide 27.0 Anion Gap 8 BUN 10 Creatinine 0.57 L Estimated GFR Greater than 89 POC Glucose Random Glucose 108 H Calcium 8.1 L Microbiology 04/27/18 12:43 Acid Fast Bacilli Smear - Final Wound - Thigh No acid fast bacilli seen Mycobacterial Culture - Preliminary No growth in 4 weeks 04/27/18 12:43 Fungal Smear - Final Wound - Thigh No fungal elements seen Fungal Culture - Final No growth in 4 weeks Assessment and Plan - Plan POD#3 s/p R BKA Dressing changed, wound healing appropriately Stable fro DC from vascular standpoint will schedule FU appointment
--- NOTE | 2018-05-26 12:20 | P.PNFP ---
Subjective Interval history: There were no acute events overnight. He continues to complain of some pain in the right leg stump, however it is improved since yesterday. He has no new complaints today. He denies fever, chills, nausea, vomiting, chest pain, shortness of breath, lightheadedness, dizziness, abdominal pain. <Rene Graves - 05/26/18 14:05> Results - Labs Result diagrams: 05/26/18 08:02 05/26/18 08:02 <Pedro Shay - 05/26/18 15:39> Abnormal lab results 05/25/18 05/25/18 05/26/18 Range/Units 17:56 21:42 08:02 RBC 2.66 L (4.50-5.90) mil/mm3 Hgb 8.3 L (13.0-17.0) gm/dL Hct 24.1 L (39.0-51.0) % RDW 22.2 H (11.6-17.2) % MPV 6.6 L (7.0-11.0) fL [place] % (Auto) 12.7 H (0.0-8.0) % Eos % (Auto) 5.8 H (0.0-4.0) % [place] # (Auto) 1.0 H (0.0-0.9) th/mm3 Eos # (Auto) 0.5 H (0.0-0.4) th/mm3 Sodium (136-145) meq/L Chloride (98-107) meq/L Creatinine (0.60-1.30) mg/dL POC Glucose 158 H 122 H (68-110) mg/dl Random Glucose (74-106) mg/dL Calcium (8.5-10.1) mg/dL 05/26/18 05/26/18 Range/Units 08:02 12:43 RBC (4.50-5.90) mil/mm3 Hgb (13.0-17.0) gm/dL Hct (39.0-51.0) % RDW (11.6-17.2) % MPV (7.0-11.0) fL [place] % (Auto) (0.0-8.0) % Eos % (Auto) (0.0-4.0) % [place] # (Auto) (0.0-0.9) th/mm3 Eos # (Auto) (0.0-0.4) th/mm3 Sodium 125 L (136-145) meq/L Chloride 90 L (98-107) meq/L Creatinine 0.57 L (0.60-1.30) mg/dL POC Glucose 128 H (68-110) mg/dl Random Glucose 108 H (74-106) mg/dL Calcium 8.1 L (8.5-10.1) mg/dL Short CBC 05/26/18 Range/Units 08:02 WBC 8.2 (4.0-11.0) th/mm3 Hgb 8.3 L (13.0-17.0) gm/dL Hct 24.1 L (39.0-51.0) % Plt Count 391 (150-450) th/mm3 BMP 05/26/18 08:02 Sodium 125 L Potassium 4.7 Chloride 90 L Carbon Dioxide 27.0 BUN 10 Creatinine 0.57 L Calcium 8.1 L <Pedro Shay - 05/26/18 15:39> Abnormal lab results 05/25/18 05/25/18 05/26/18 Range/Units 17:56 21:42 08:02 RBC 2.66 L (4.50-5.90) mil/mm3 Hgb 8.3 L (13.0-17.0) gm/dL Hct 24.1 L (39.0-51.0) % RDW 22.2 H (11.6-17.2) % MPV 6.6 L (7.0-11.0) fL [place] % (Auto) 12.7 H (0.0-8.0) % Eos % (Auto) 5.8 H (0.0-4.0) % [place] # (Auto) 1.0 H (0.0-0.9) th/mm3 Eos # (Auto) 0.5 H (0.0-0.4) th/mm3 Sodium (136-145) meq/L Chloride (98-107) meq/L Creatinine (0.60-1.30) mg/dL POC Glucose 158 H 122 H (68-110) mg/dl Random Glucose (74-106) mg/dL Calcium (8.5-10.1) mg/dL 05/26/18 Range/Units 08:02 RBC (4.50-5.90) mil/mm3 Hgb (13.0-17.0) gm/dL Hct (39.0-51.0) % RDW (11.6-17.2) % MPV (7.0-11.0) fL [place] % (Auto) (0.0-8.0) % Eos % (Auto) (0.0-4.0) % [place] # (Auto) (0.0-0.9) th/mm3 Eos # (Auto) (0.0-0.4) th/mm3 Sodium 125 L (136-145) meq/L Chloride 90 L (98-107) meq/L Creatinine 0.57 L (0.60-1.30) mg/dL POC Glucose (68-110) mg/dl Random Glucose 108 H (74-106) mg/dL Calcium 8.1 L (8.5-10.1) mg/dL Short CBC 05/26/18 Range/Units 08:02 WBC 8.2 (4.0-11.0) th/mm3 Hgb 8.3 L (13.0-17.0) gm/dL Hct 24.1 L (39.0-51.0) % Plt Count 391 (150-450) th/mm3 BMP 05/26/18 08:02 Sodium 125 L Potassium 4.7 Chloride 90 L Carbon Dioxide 27.0 BUN 10 Creatinine 0.57 L Calcium 8.1 L <Rene Graves - 05/26/18 12:20> Physical Exam Vital signs: Vital Signs 05/25/18 16:00 05/25/18 20:00 05/25/18 22:10 Temperature 98.0 F 98.1 F Pulse Rate 61 65 Respiratory Rate 18 17 18 Blood Pressure 128/60 109/54 L Pulse Oximetry 100 100 05/26/18 00:00 05/26/18 04:00 05/26/18 08:00 Temperature 98 F 97.6 F 97.5 F L Pulse Rate 61 60 62 Respiratory Rate 16 16 17 Blood Pressure 115/60 127/58 L 130/62 Pulse Oximetry 98 98 98 05/26/18 12:00 Temperature 97.6 F Pulse Rate 59 L Respiratory Rate 17 Blood Pressure 126/60 Pulse Oximetry 97 Intake & Output 05/25/18 05/26/18 05/26/18 18:59 06:59 18:59 Intake Total 702.5 / 702.5 240 / 240 Output Total 1000 / 1000 1250 / 1250 Balance -297.5 / -297.5 -1010 / -1010 Weight 71.5 kg Intake: IV 262.5 / 262.5 Vancomycin Inj 1,250 MG In NS 262.5 / 262.5 Inj 250 ML @ 250 mls/hr IV.SIG Q24H ACE Rx#:[id number] Oral 440 / 440 240 / 240 Output: Urine 1000 / 1000 Urine Amount (Catheter) 1250 / 1250 Condom 1250 / 1250 Other: # Bowel Movements 1 # Incontinent Bowel Movements 2 <Pedro Shay - 05/26/18 15:39> Vital Signs 05/25/18 14:35 05/25/18 16:00 05/25/18 20:00 Temperature 98.0 F 98.1 F Pulse Rate 61 65 Respiratory Rate 20 18 17 Blood Pressure 128/60 109/54 L Pulse Oximetry 100 100 05/25/18 22:10 05/26/18 00:00 05/26/18 04:00 Temperature 98 F 97.6 F Pulse Rate 61 60 Respiratory Rate 18 16 16 Blood Pressure 115/60 127/58 L Pulse Oximetry 98 98 05/26/18 08:00 Temperature 97.5 F L Pulse Rate 62 Respiratory Rate 17 Blood Pressure 130/62 Pulse Oximetry 98 Intake & Output 05/25/18 05/26/18 05/26/18 18:59 06:59 18:59 Intake Total 702.5 / 702.5 240 / 240 Output Total 1000 / 1000 1250 / 1250 Balance -297.5 / -297.5 -1010 / -1010 Weight 71.5 kg Intake: IV 262.5 / 262.5 Vancomycin Inj 1,250 MG In NS 262.5 / 262.5 Inj 250 ML @ 250 mls/hr IV.SIG Q24H ACE Rx#:[id number] Oral 440 / 440 240 / 240 Output: Urine 1000 / 1000 Urine Amount (Catheter) 1250 / 1250 Condom 1250 / 1250 Other: # Bowel Movements 1 # Incontinent Bowel Movements 2 <Rene Graves - 05/26/18 12:20> Narrative: General: Cachectic elderly male, alert, and in no acute distress. Oriented to person and place. HEENT: Atraumatic, non-icteric sclera and no conjunctival injection, moist mucous membranes Neck: Supple, non-tender without masses or lymphadenopathy, trachea midline, no JVD Cardiac: Regular rate and rhythm Pulmonary: Non-labored breathing. Lungs clear to auscultation bilaterally with good air movement Abdomen: Normal bowel sounds, soft and non-tender without rebound or guarding Extremities: Left lower extremity has no edema and has palpable pulses. Right lower extremity is status post BKA with well-healing surgical scars without drainage. <Rene Graves - 05/26/18 14:05> - Urinary Catheter Management Condom Cath placed during this visit: no <Pedro Shay - 05/26/18 15:39> no <Rene Graves - 05/26/18 14:05> Reason for continuing: Not indwelling catheter <Rene Graves - 12:20> Indwelling Urethral Catheter Cath placed during this visit: no <Pedro Shay - 05/26/18 15:39> yes, but has since been removed by the nurse <Rene Graves - 05/26/18 14:05> Reason for continuing: Not indwelling catheter <Rene Graves - 12:20> Insertion date: 04/11/18 <Rene Graves - 05/26/18 12:20> Insertion time: 21:08 <Rene Graves - 05/26/18 12:20> Removal date: 04/12/18 <Rene Graves - 05/26/18 12:20> Removal time: 11:35 <Rene Graves - 05/26/18 12:20> Straight Cath placed during this visit: no <Pedro Shay - 05/26/18 15:39> yes <Rene Graves - 05/26/18 14:05> Reason for continuing: Other continuation reason <Rene Graves - 05/26 12:20> Insertion date: 04/11/18 <Rene Graves - 05/26/18 12:20> Insertion time: 21:08 <Rene Graves - 05/26/18 12:20> Assessment and Plan - Assessment (1) S/P BKA (below knee amputation) Code(s): Z89.519 - Acquired absence of unspecified leg below knee Status: Acute (2) Anemia Code(s): D64.9 - Anemia, unspecified Status: Acute (3) Infection associated with internal hip prosthesis Code(s): T84.59XA - Infection and inflammatory reaction due to other internal joint prosthesis, initial encounter; Z96.649 - Presence of unspecified artificial hip joint Status: Acute (4) MRSA (methicillin resistant staph aureus) culture positive Code(s): Z22.322 - Carrier or suspected carrier of Methicillin resistant Staphylococcus aureus Status: Acute (5) PAD (peripheral artery disease) Code(s): I73.9 - Peripheral vascular disease, unspecified Status: Chronic (6) Hydronephrosis Code(s): N13.30 - Unspecified hydronephrosis Status: Resolved (7) HTN (hypertension) Code(s): I10 - Essential (primary) hypertension Status: Acute (8) Diabetes Code(s): E11.9 - Type 2 diabetes mellitus without complications Status: Acute (9) Malnutrition Code(s): E46 - Unspecified protein-calorie malnutrition Status: Acute (10) Suicidal ideation Code(s): R45.851 - Suicidal ideations Status: Acute (11) Anisocoria Code(s): H57.02 - Anisocoria Status: Acute (12) Sacral ulcer Code(s): L98.429 - Non-pressure chronic ulcer of back with unspecified severity Status: Acute <Pedro Shay - 05/26/18 15:39> (1) S/P BKA (below knee amputation) Code(s): Z89.519 - Acquired absence of unspecified leg below knee Status: Acute (2) Anemia Code(s): D64.9 - Anemia, unspecified Status: Acute Plan: (3) Infection associated with internal hip prosthesis Code(s): T84.59XA - Infection and inflammatory reaction due to other internal joint prosthesis, initial encounter; Z96.649 - Presence of unspecified artificial hip joint Status: Acute Plan: (4) MRSA (methicillin resistant staph aureus) culture positive Code(s): Z22.322 - Carrier or suspected carrier of Methicillin resistant Staphylococcus aureus Status: Acute Plan: (5) PAD (peripheral artery disease) Code(s): I73.9 - Peripheral vascular disease, unspecified Status: Chronic Plan: (6) Hydronephrosis Code(s): N13.30 - Unspecified hydronephrosis Status: Resolved Plan: (7) HTN (hypertension) Code(s): I10 - Essential (primary) hypertension Status: Acute Plan: (8) Diabetes Code(s): E11.9 - Type 2 diabetes mellitus without complications Status: Acute Plan: (9) Malnutrition Code(s): E46 - Unspecified protein-calorie malnutrition Status: Acute Plan: (10) Suicidal ideation Code(s): R45.851 - Suicidal ideations Status: Acute Plan: (11) Anisocoria Code(s): H57.02 - Anisocoria Status: Acute Plan: (12) Sacral ulcer Code(s): L98.429 - Non-pressure chronic ulcer of back with unspecified severity Status: Acute <Rene Graves - 05/26/18 13:55> - Assessment and Plan He is an 87-year-old male with a history of hypertension, diabetes, peripheral vascular disease, chronic nonhealing wounds who was originally admitted for anemia. 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 Also during hospitalization he was found to have osteomyelitis and severe peripheral vascular disease in the right lower extremity. He is postop day from BKA 05/23/18. Postop day 3 from BKA -Physical and Occupational Therapy -Osteomyelitis: Resolved. 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 daily Diabetes: Home medications glipizide and Januvia are held Low-dose sliding scale insulin -Continue gabapentin 600 mg p.o. 3 times daily for neuropathy Malnutrition: Diet supplementation with Ensure once diet is advanced Depression: He expressed suicidal ideation earlier in this hospitalization. Continue Celexa 10 mg p.o. daily Anisocoria Fluids: Adequate p.o. intake Electrolytes: monitor and replete as needed -Magnesium oxide 400 mg p.o. 4 times daily K-Phos 250 milligrams p.o. 4 times daily -Sodium chloride 1 g p.o. 3 times daily Nutrition: Diabetic diet GI prophylaxis: Protonix 40 mg p.o. twice daily VTE prophylaxis: Lovenox subcutaneous daily Disposition: He will hopefully be able to return to the SNF that he came from soon. He will need a PICC and outpatient prescription for IV vancomycin. <Rene Graves - 05/26/18 14:05> - Attending Attestation See the residents documentation for details. I saw and evaluated the patient regarding the ford portions of this evaluation and agree with the residents findings and plans as written. Parts of this note were created using [employer] voice recognition software program. While efforts were made to correct any mistakes made by this software, some mistakes, errors, and omissions may remain in the final note that were not caught when the note was originally created. Plan of care was discussed and agreed upon with the patient as specifically documented in the above note. An opportunity to ask questions with explanation was provided. Patient voiced understanding on all information reviewed and discussed. <Pedro Shay - 05/26/18 15:39> <Rene Graves - Last Filed: 05/26/18 13:55> (6) Hydronephrosis Qualifiers: Hydronephrosis type: unspecified Qualified Code(s): N13.30 - Unspecified hydronephrosis <Pedro Shay - Last Filed: 05/26/18 15:39> (6) Hydronephrosis Qualifiers: Hydronephrosis type: unspecified Qualified Code(s): N13.30 - Unspecified hydronephrosis <Rene Graves - Last Filed: 05/26/18 13:55> (6) Hydronephrosis Qualifiers: Hydronephrosis type: unspecified Qualified Code(s): N13.30 - Unspecified hydronephrosis <Pedro Shay - Last Filed: 05/26/18 15:39> (6) Hydronephrosis Qualifiers: Hydronephrosis type: unspecified Qualified Code(s): N13.30 - Unspecified hydronephrosis
[2018-05-26] MEDS ORDERED: Heparin Central Flush 100 UNIT/ML 5 ML Vial IV.FLUSH PRN (13:43)
[2018-05-26] MEDS: Enoxaparin Inj 40 MG/0.4 ML Syringe SQ SCH (14:35)
[2018-05-26] MEDS: Vancomycin Inj 1,250 MG in Sodium Chlor 0.9% Inj 250 ML IV.SIG SCH (15:00)
--- NOTE | 2018-05-26 16:07 | P.DCO ---
Post Hospital Infusion Therapy - Infusion Therapy Location of Infusion Therapy: [facility] Infusion Therapy Order - Patient Information Patient Weight: 71.5 kg - Diagnosis (1) Osteolysis, right thigh Code(s): M89.551 - Osteolysis, right thigh (2) MRSA (methicillin resistant Staphylococcus aureus) infection Code(s): A49.02 - Methicillin resistant Staphylococcus aureus infection, unspecified site - Administer Medication Vancomycin Additional Dosing Instructions: Vanco 1.25 gm IV q24h Stop Treatment: 06/07/18 - Additional Information Venous Access: PICC Line Additional Instructions: [x] Peripheral flush and dressing changes per protocol [x] Implanted port and central line fixer: * Implanted port: 10 ml Normal Saline followed by 5 ml Heparin 100 units/ml Heparin flush after each use and monthly to maintain. [] May leave port accessed during therapy. [] May leave peripheral site accessed for duration of therapy. [x] If patient has SOB or respiratory distress, check oxygen saturation. If less than 90% or clinical signs of respiratory distress, administer oxygen at 2 L/min. via nasal cannula and notify physician. [x] Anaphylaxis/Reaction orders: * Stop infusion. * Keep IV line open with saline flush. * Notify physician. * Monitor vital signs every 15 minutes until symptoms resolve. * Check Oxygen saturation; Oxygen at 2 L/min. via nasal cannula if less than 90% or clinical signs of respiratory distress. * Administer diphenhydramine (Benadryl) 25 mg IV STAT, (unless patient has received as pre-med). May repeat once, if necessary. * Solu-Cortef 250 mg IVP over 30-60 seconds, use 100 mg vials for each dissolution. * Epinephrine (1mg/1 ml) 0.3 mg subcutaneously or IVP now with any signs of respiratory distress. * Check with physician for new additional pre-med orders if patient is re- challenged or re-treated. [x] May remove PICC line when treatment complete. [x] If the patient is admitted to the hospital, the ED, or transferred via [facility] , complete transfer form including medication reconciliation order sheet. Weekly Labs: CBC w/diff, Creatinine, Vancomycin Trough (Labs every Saturday - copy to me) Additional Information: Consult pharm for Vanco dosing, aim for Vanco trough 15-20 - Case Management Consult Case Management Consult-IVF: Yes (Iv antibiotic infusion) - Patient Information Allergies No Known Allergies Allergy (Verified 04/08/18 12:35)
[2018-05-26] MEDS: Heparin Central Flush 100 UNIT/ML 5 ML Vial IV.FLUSH SCH (18:42)
[2018-05-27] MEDS: Levothyroxine 125 MCG Tablet PO SCH (05:06)
[2018-05-27 05:58] LABS: Baso # (Auto) 0.1 th/mm3 (0.0-0.2); Baso % (Auto) 1.6 % (0.0-2.0); Eos # (Auto) 0.5 th/mm3 (0.0-0.4); Eos % (Auto) 6.8 % (0.0-4.0); Hematocrit 24.1 % (39.0-51.0); Hemoglobin 8.1 gm/dL (13.0-17.0); Lymph # (Auto) 1.4 th/mm3 (1.0-4.8); Lymph % (Auto) 17.6 % (9.0-44.0); Mean Corpuscular HGB Conc 33.7 % (32.0-36.0); Mean Corpuscular Hemoglobin 30.7 pg (27.0-34.0); Mean Corpuscular Volume 91.1 fL (80.0-100.0); Mean Platelet Volume 6.7 fL (7.0-11.0); Mono % (Auto) 12.8 % (0.0-8.0); Neut # (Auto) 4.8 th/mm3 (1.8-7.7); Neut % (Auto) 61.2 % (16.0-70.0); Platelet Count 414 th/mm3 (150-450); Red Blood Count 2.65 mil/mm3 (4.50-5.90); Red Cell Distribution Width 23.1 % (11.6-17.2); White Blood Count 7.8 th/mm3 (4.0-11.0)
[2018-05-27 06:29] LABS: Anion Gap 10 meq/L (5-15); Blood Urea Nitrogen 10 mg/dL (7-18); Calcium 7.8 mg/dL (8.5-10.1); Carbon Dioxide 27.5 meq/L (21.0-32.0); Chloride 90 meq/L (98-107); Glomerular Filtration Rate Greater Than 89 mL/min (>89); Glucose,Random 101 mg/dL (74-106); Potassium 4.6 meq/L (3.5-5.1); Sodium 127 meq/L (136-145)
[2018-05-27 08:16] LABS: Basophilic Stippling Moderate; Eosinophils 12 % (0-4); Lymphocytes 13 % (9-44); Monocytes 5 % (0-8); Myelocytes 3 % (0-0); Platelet Morphology Normal (Normal)
[2018-05-27 08:17] LABS: Acanthocytes Occ; Ovalocytes 1+
[2018-05-27] MEDS: Potassium Phos/Sodium Phos 250 MG Tablet PO SCH ×4 (09:03→20:32)
[2018-05-27] MEDS: Sodium Chloride 1 GM Tablet PO SCH ×3 (09:03→17:36)
[2018-05-27] MEDS: Ferrous Sulfate 325 MG Tablet PO SCH ×3 (09:04→17:36)
[2018-05-27] MEDS: Amiodarone 200 MG Tablet PO SCH (09:04)
[2018-05-27] MEDS: Gabapentin 300 MG Capsule PO SCH ×3 (09:04→17:37)
[2018-05-27] MEDS: Ascorbic Acid 500 MG Tablet PO SCH ×2 (09:04→20:32)
[2018-05-27] MEDS: Citalopram 20 MG Tablet PO SCH (09:05)
[2018-05-27] MEDS: Enoxaparin Inj 40 MG/0.4 ML Syringe SQ SCH (09:05)
[2018-05-27] MEDS: Magnesium Oxide 400 MG Tablet PO SCH ×4 (09:05→20:32)
[2018-05-27] MEDS: Insulin NovoLOG Aspart Correctional Sugar Inj SQ SCH ×4 (09:05→20:32)
[2018-05-27] MEDS: Gentamicin 0.1% Cream 15 GM Cream TOPICAL SCH ×2 (09:06→20:33)
[2018-05-27] MEDS: Polyethylene Glycol 3350 17 GM Packet PO SCH (09:06)
[2018-05-27] MEDS: Docusate Sodium 100 MG Capsule PO SCH ×2 (09:06→20:33)
[2018-05-27] MEDS: Heparin Central Flush 100 UNIT/ML 5 ML Vial IV.FLUSH SCH (09:06)
[2018-05-27] MEDS: Collagenase Oint 30 GM Tube TOPICAL SCH (09:07)
--- NOTE | 2018-05-27 09:49 | P.PNID ---
Subjective Remarks: Patient is an 87-year-old male, admitted to the hospital for evaluation of low hemoglobin. There was apparently episodes of black tarry stools. He had a GI workup on this admission, and he seemed to be stable from the GI standpoint. Patient apparently has had a wound on his right heel Achilles area. He had vascular workup, and underwent aortogram around April 08, and had atherectomy of the right SFA and popliteal area. Patient could not really tell me how long he has had the open wound. He has pain when he walks. There is been no fever and chills. On this admission podiatry was consulted. 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 There is a foul odor coming out from that right foot, and patient really could not notice any difference. Since admission he has not been febrile. He has significant pain whenever his RLE gets moved. There was a culture from a right thigh wound that has MRSA. I do not see any culture from the right foot. His initial WBC was around 14,000 and that is down to normal. Blood cultures are negative. Infectious disease consultation has been requested to evaluate the patient. Notes reviewed Temps ok Pain better S/P amputation RBKA Antibiotics: Vancomycin Lines: PIV Past Medical History: Weakness Diabetes HLD (hyperlipidemia) MDRO (multiple drug resistant organisms) resistance Onset Date: ~04/11/18 MRSA (methicillin resistant Staphylococcus aureus) PAD (peripheral artery disease) Hip surgery Allergies/Adverse Reactions: Allergies No Known Allergies Allergy (Verified 04/08/18 12:35) Objective Vital Signs 05/26/18 12:00 05/26/18 13:40 05/26/18 16:00 Temperature 97.6 F 97.9 F Pulse Rate 56 L 59 L Respiratory Rate 17 20 18 Blood Pressure 126/60 104/55 L Pulse Oximetry 97 98 05/26/18 20:00 05/27/18 00:00 05/27/18 04:00 Temperature 97.7 F 97.9 F 98.3 F Pulse Rate 57 L 56 L 56 L Respiratory Rate 18 16 18 Blood Pressure 116/60 111/59 L 110/55 L Pulse Oximetry 100 100 94 L 05/27/18 08:00 Temperature 97.3 F L Pulse Rate 61 Respiratory Rate 14 Blood Pressure 112/58 L Pulse Oximetry 99 Intake & Output 05/26/18 05/27/18 05/27/18 18:59 06:59 18:59 Intake Total 742.5 / 742.5 Output Total 550 / 550 500 / 500 Balance 192.5 / 192.5 -500 / -500 Weight 71.5 kg 71.6 kg Intake: IV 262.5 / 262.5 Vancomycin Inj 1,250 MG In NS 262.5 / 262.5 Inj 250 ML @ 250 mls/hr IV.SIG Q24H ACE Rx#:[id number] Oral 480 / 480 Output: Urine 550 / 550 500 / 500 Other: # Bowel Movements 0 04/27/18 12:43 Wound - Thigh Acid Fast Bacilli Smear - Final No acid fast bacilli seen 04/27/18 12:43 Wound - Thigh Mycobacterial Culture - Preliminary No growth in 4 weeks 04/27/18 12:43 Wound - Thigh Fungal Smear - Final No fungal elements seen 04/27/18 12:43 Wound - Thigh Fungal Culture - Final No growth in 4 weeks Lab - Hematology Results 05/26/18 05/27/18 08:02 04:59 WBC 8.2 7.8 RBC 2.66 L 2.65 L Hgb 8.3 L 8.1 L Hct 24.1 L 24.1 L MCV 90.4 91.1 MCH 31.3 30.7 MCHC 34.6 33.7 RDW 22.2 H 23.1 H Plt Count 391 414 MPV 6.6 L 6.7 L Prelim Diff (Auto) Slide review pending Neut % (Auto) 63.8 61.2 Lymph % (Auto) 16.1 17.6 [place] % (Auto) 12.7 H 12.8 H Eos % (Auto) 5.8 H 6.8 H Baso % (Auto) 1.6 1.6 Neut # (Auto) 5.2 4.8 Lymph # (Auto) 1.3 1.4 Pender # (Auto) 1.0 H 1.0 H Eos # (Auto) 0.5 H 0.5 H Baso # (Auto) 0.1 0.1 WBC Differential . Manual diff final Seg Neuts % (Manual) 61 Band Neuts % (Manual) 5 Lymphocytes % (Manual) 13 Monocytes % (Manual) 5 Eosinophils % (Manual) 12 H Basophils % (Manual) 1 Myelocytes % (Man) 3 H Abs Neuts (Manual) 5.4 Differential Comment Auto diff final . Platelet Estimate High H Platelet Morphology Normal Basophilic Stippling Moderate H Ovalocytes 1+ H Acanthocytes (Spur) Occ H Lab - Chemistry Results 05/25/18 05/25/18 05/25/18 11:52 17:56 21:42 Sodium Potassium Chloride Carbon Dioxide Anion Gap BUN Creatinine Estimated GFR POC Glucose 139 H 158 H 122 H Random Glucose Calcium 05/26/18 05/26/18 05/26/18 08:02 12:43 16:55 Sodium 125 L Potassium 4.7 Chloride 90 L Carbon Dioxide 27.0 Anion Gap 8 BUN 10 Creatinine 0.57 L Estimated GFR Greater than 89 POC Glucose 128 H 138 H Random Glucose 108 H Calcium 8.1 L 05/26/18 05/27/18 05/27/18 21:59 04:59 07:21 Sodium 127 L Potassium 4.6 Chloride 90 L Carbon Dioxide 27.5 Anion Gap 10 BUN 10 Creatinine 0.48 L Estimated GFR Greater than 89 POC Glucose 145 H 123 H Random Glucose 101 Calcium 7.8 L Imaging: ITS Impressions Head CT 04/11/18 11:59 CONCLUSION: 1. Stable appearance of the brain. . Ankle MRI 04/15/18 00:00 CONCLUSION: 1. Osteomyelitis of the posterior calcaneus with a near complete tear of the distal Achilles tendon. There is overlying cellulitis and subcutaneous edema with a small abscess adjacent to the distal Achilles tendon as measured above. There is edematous change on the plantar aspect of the foot with a tenosynovitis as above. No acute fracture identified. Mild bone edema tibia, nonspecific. Ankle X-Ray 04/15/18 00:00 CONCLUSION: Osteomyelitis of the posterior calcaneus with overlying soft tissue swelling and ulceration. No acute fracture. Femur MRI 04/25/18 00:00 CONCLUSION: 1. 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 The collection appears to communicate with the prosthetic component in the proximal femur. 2. Edematous changes are noted along the vastus lateralis and iliotibial band. Hip X-Ray 04/27/18 00:00 CONCLUSION: Hardware removal on the right. Abdomen/Pelvis CT 04/30/18 10:28 Review of bone windows reveals moderate degenerative changes in the lumbar spine and both SI joints. CONCLUSION: 1. Large bolus of stool in the rectum with stool throughout the colon suggesting constipation with possible impaction 2. Prominent gallbladder without stones 3. 2 nonobstructing stones in the left kidney. Physical Exam: GENERAL: awake and alert, not in respiratory distress. SKIN: Cool and dry. No generalized rash. EYES: [place] conjunctiva. No petechia or hemorrhage. No scleral icterus. No injection or drainage. EARS, NOSE AND THROAT: Mucous membranes pink and moist. No oral lesions noted. NECK: Trachea midline. Supple and not tender, no meningeal signs CARDIOVASCULAR: Regular rate and rhythm. No murmurs, rubs or gallops heard RESPIRATORY: Clear to auscultation. Breath sounds equal bilaterally. No rales , wheezing or rhonchi ABDOMEN: Soft, non-tender, nondistended. Bowel sounds present and normoactive. . EXTREMITIES: No clubbing, cyanosis, or edema. Dressing R hip in place. Intact dressing to RBKA stump NEURO: Awake and alert PSYCH: Cooperative LINE: No evidence of infection Assessment and Plan (1) Osteolysis, right thigh Status: Acute Code(s): M89.551 - Osteolysis, right thigh (2) MRSA (methicillin resistant Staphylococcus aureus) infection Status: Acute Code(s): A49.02 - Methicillin resistant Staphylococcus aureus infection, unspecified site - Plan Impression Non-healing wound R heel/achilles area with abscess and osteo posterior calcaneus - S/P RBKA PVD S/P revascularization RLE 04/24 Infection R femur, has sinus tract on MRI, S/P RAZA, C/S MRSA GIB Leukocytosis, resolved Anemia Recommendation Continue IV Vanco - needs until Jun 07, 6 weeks after hardware removal for the R hip - will need PICC - labs weekly while on IV vanco: CBC, creat, LFT and Vanco trough - this can be done in SNF PICC Stable for D/C from ID standpoint once arrangements made for his IV Abx
--- NOTE | 2018-05-27 10:35 | P.PNFP ---
Subjective Interval history: Patient seen and examined today. No acute events overnight. Denies nausea, vomiting, fever, chills, don pain, chest pain, shortness of breath, lightheadedness, dizziness. No other complaints today. <Saji Richard - 05/27/18 10:34> Results - Labs Result diagrams: 05/28/18 07:38 05/28/18 07:38 <Pedro Shay - 05/28/18 13:47> Abnormal lab results 05/27/18 05/27/18 05/28/18 Range/Units 17:46 20:30 07:38 RBC 2.41 L (4.50-5.90) mil/mm3 Hgb 7.7 L (13.0-17.0) gm/dL Hct 21.8 L (39.0-51.0) % RDW 22.8 H (11.6-17.2) % MPV 6.5 L (7.0-11.0) fL Sodium (136-145) meq/L Chloride (98-107) meq/L Creatinine (0.60-1.30) mg/dL POC Glucose 139 H 158 H (68-110) mg/dl Random Glucose (74-106) mg/dL Calcium (8.5-10.1) mg/dL 05/28/18 05/28/18 05/28/18 Range/Units 07:38 08:22 12:36 RBC (4.50-5.90) mil/mm3 Hgb (13.0-17.0) gm/dL Hct (39.0-51.0) % RDW (11.6-17.2) % MPV (7.0-11.0) fL Sodium 127 L (136-145) meq/L Chloride 92 L (98-107) meq/L Creatinine 0.52 L (0.60-1.30) mg/dL POC Glucose 120 H 173 H (68-110) mg/dl Random Glucose 109 H (74-106) mg/dL Calcium 7.9 L (8.5-10.1) mg/dL Short CBC 05/28/18 Range/Units 07:38 WBC 8.9 (4.0-11.0) th/mm3 Hgb 7.7 L (13.0-17.0) gm/dL Hct 21.8 L (39.0-51.0) % Plt Count 417 (150-450) th/mm3 [facility] 05/28/18 07:38 Sodium 127 L Potassium 4.7 Chloride 92 L Carbon Dioxide 25.1 BUN 10 Creatinine 0.52 L Calcium 7.9 L <Pedro Shay - 05/28/18 13:47> Abnormal lab results 05/26/18 05/26/18 05/26/18 Range/Units 12:43 16:55 21:59 RBC (4.50-5.90) mil/mm3 Hgb (13.0-17.0) gm/dL Hct (39.0-51.0) % RDW (11.6-17.2) % MPV (7.0-11.0) fL [place] % (Auto) (0.0-8.0) % Eos % (Auto) (0.0-4.0) % [place] # (Auto) (0.0-0.9) th/mm3 Eos # (Auto) (0.0-0.4) th/mm3 Eosinophils % (Manual) (0-4) % Myelocytes % (Man) (0-0) % Platelet Estimate (Normal) Basophilic Stippling (None) Ovalocytes (None) Acanthocytes (Spur) (None) Sodium (136-145) meq/L Chloride (98-107) meq/L Creatinine (0.60-1.30) mg/dL POC Glucose 128 H 138 H 145 H (68-110) mg/dl Calcium (8.5-10.1) mg/dL 05/27/18 05/27/18 05/27/18 Range/Units 04:59 04:59 07:21 RBC 2.65 L (4.50-5.90) mil/mm3 Hgb 8.1 L (13.0-17.0) gm/dL Hct 24.1 L (39.0-51.0) % RDW 23.1 H (11.6-17.2) % MPV 6.7 L (7.0-11.0) fL [place] % (Auto) 12.8 H (0.0-8.0) % Eos % (Auto) 6.8 H (0.0-4.0) % [place] # (Auto) 1.0 H (0.0-0.9) th/mm3 Eos # (Auto) 0.5 H (0.0-0.4) th/mm3 Eosinophils % (Manual) 12 H (0-4) % Myelocytes % (Man) 3 H (0-0) % Platelet Estimate High H (Normal) Basophilic Stippling Moderate H (None) Ovalocytes 1+ H (None) Acanthocytes (Spur) Occ H (None) Sodium 127 L (136-145) meq/L Chloride 90 L (98-107) meq/L Creatinine 0.48 L (0.60-1.30) mg/dL POC Glucose 123 H (68-110) mg/dl Calcium 7.8 L (8.5-10.1) mg/dL Short CBC 05/27/18 Range/Units 04:59 WBC 7.8 (4.0-11.0) th/mm3 Hgb 8.1 L (13.0-17.0) gm/dL Hct 24.1 L (39.0-51.0) % Plt Count 414 (150-450) th/mm3 [facility] 05/27/18 04:59 Sodium 127 L Potassium 4.6 Chloride 90 L Carbon Dioxide 27.5 BUN 10 Creatinine 0.48 L Calcium 7.8 L <Saji Richard A - 05/27/18 10:34> Physical Exam Vital signs: Vital Signs 05/27/18 16:00 05/27/18 18:10 05/27/18 20:00 Temperature 97.6 F 97.7 F Pulse Rate 83 63 Respiratory Rate 16 7 L 17 Blood Pressure 110/56 L 104/52 L Pulse Oximetry 98 97 05/28/18 00:00 05/28/18 04:00 05/28/18 08:00 Temperature 97.3 F L 97.8 F 97.1 F L Pulse Rate 61 60 60 Respiratory Rate 16 18 18 Blood Pressure 108/56 L 107/55 L 112/60 Pulse Oximetry 98 98 97 05/28/18 12:00 Temperature 97.4 F L Pulse Rate 58 L Respiratory Rate 18 Blood Pressure 106/56 L Pulse Oximetry 98 Intake & Output 05/27/1818 05/28/18 18:59 06:59 18:59 Intake Total 262.5 / 262.5 120 / 120 Output Total 700 / 700 950 / 950 Balance -437.5 / -437.5 -830 / -830 Weight 71.1 kg Intake: IV 262.5 / 262.5 Vancomycin Inj 1,250 MG In NS 262.5 / 262.5 Inj 250 ML @ 250 mls/hr IV.SIG Q24H [facility] Rx#:[id number] Oral 120 / 120 Output: Urine 950 / 950 Urine Amount (Catheter) 700 / 700 Condom 700 / 700 Other: Date of Last Bowel Movement 05/28/18 # Bowel Movements 3 1 <Pedro Shay - 05/28/18 13:47> Vital Signs 05/26/18 12:00 05/26/18 13:40 05/26/18 16:00 Temperature 97.6 F 97.9 F Pulse Rate 56 L 59 L Respiratory Rate 17 20 18 Blood Pressure 126/60 104/55 L Pulse Oximetry 97 98 05/26/18 20:00 05/27/18 00:00 05/27/18 04:00 Temperature 97.7 F 97.9 F 98.3 F Pulse Rate 57 L 56 L 56 L Respiratory Rate 18 16 18 Blood Pressure 116/60 111/59 L 110/55 L Pulse Oximetry 100 100 94 L 05/27/18 08:00 Temperature 97.3 F L Pulse Rate 61 Respiratory Rate 14 Blood Pressure 112/58 L Pulse Oximetry 99 Intake & Output 05/26/18 05/27/18 05/27/18 18:59 06:59 18:59 Intake Total 742.5 / 742.5 Output Total 550 / 550 500 / 500 Balance 192.5 / 192.5 -500 / -500 Weight 71.5 kg 71.6 kg Intake: IV 262.5 / 262.5 Vancomycin Inj 1,250 MG In NS 262.5 / 262.5 Inj 250 ML @ 250 mls/hr IV.SIG Q24H [facility] Rx#:[id number] Oral 480 / 480 Output: Urine 550 / 550 500 / 500 Other: # Bowel Movements 0 <Saji Richard - 05/27/18 10:34> Narrative: General: Cachectic elderly male, alert, and in no acute distress. Oriented to person and place. HEENT: Atraumatic, non-icteric sclera and no conjunctival injection, moist mucous membranes Neck: Supple, non-tender without masses or lymphadenopathy, trachea midline, no JVD Cardiac: Regular rate and rhythm Pulmonary: Non-labored breathing. Lungs clear to auscultation bilaterally with good air movement Abdomen: Normal bowel sounds, soft and non-tender without rebound or guarding Extremities: Left lower extremity has no edema and has palpable pulses. Right lower extremity is status post BKA, wrapped, clean/dry/intact <Saji Richard - 05/27/18 10:34> - Urinary Catheter Management Condom Cath placed during this visit: no <Pedro Shay - 05/28/18 13:47> no <Saji Richard - 05/27/18 10:34> Reason for continuing: Not indwelling catheter <Saji Richard - 05/27/18 10 :34> Indwelling Urethral Catheter Cath placed during this visit: no <Pedro Shay - 05/28/18 13:47> yes, but has since been removed by the nurse <Jose ManuelSaji Alvarez - 05/27/18 10:34> Reason for continuing: Not indwelling catheter <Jose ManuelSaji Alvarez - 05/27/18 10 :34> Insertion date: 04/11/18 <Jose ManuelSaji Alvarez - 05/27/18 10:34> Insertion time: 21:08 <Jose ManuelSaji Alvarez - 05/27/18 10:34> Removal date: 04/12/18 <Jose ManuelSaji Alvarez - 05/27/18 10:34> Removal time: 11:35 <Jose ManuelSaji Alvarez - 05/27/18 10:34> Straight Cath placed during this visit: no <Pedro Shay - 05/28/18 13:47> yes <Jose ManuelSaji Alvarez - 05/27/18 10:34> Reason for continuing: Other continuation reason <Jose ManuelSaji Alvarez - 05/27/18 10:34> Insertion date: 04/11/18 <Jose ManuelSaji Alvarez - 05/27/18 10:34> Insertion time: 21:08 <Jose ManuelSaji Alvarez - 05/27/18 10:34> Assessment and Plan - Assessment (1) S/P BKA (below knee amputation) Code(s): Z89.519 - Acquired absence of unspecified leg below knee Status: Acute (2) Anemia Code(s): D64.9 - Anemia, unspecified Status: Acute (3) Infection associated with internal hip prosthesis Code(s): T84.59XA - Infection and inflammatory reaction due to other internal joint prosthesis, initial encounter; Z96.649 - Presence of unspecified artificial hip joint Status: Acute (4) MRSA (methicillin resistant staph aureus) culture positive Code(s): Z22.322 - Carrier or suspected carrier of Methicillin resistant Staphylococcus aureus Status: Acute (5) PAD (peripheral artery disease) Code(s): I73.9 - Peripheral vascular disease, unspecified Status: Chronic (6) Hydronephrosis Code(s): N13.30 - Unspecified hydronephrosis Status: Resolved (7) HTN (hypertension) Code(s): I10 - Essential (primary) hypertension Status: Acute (8) Diabetes Code(s): E11.9 - Type 2 diabetes mellitus without complications Status: Acute (9) Malnutrition Code(s): E46 - Unspecified protein-calorie malnutrition Status: Acute (10) Suicidal ideation Code(s): R45.851 - Suicidal ideations Status: Acute (11) Anisocoria Code(s): H57.02 - Anisocoria Status: Acute (12) Sacral ulcer Code(s): L98.429 - Non-pressure chronic ulcer of back with unspecified severity Status: Acute <Pedro Shay - 05/28/18 13:47> (1) S/P BKA (below knee amputation) Code(s): Z89.519 - Acquired absence of unspecified leg below knee Status: Acute (2) Anemia Code(s): D64.9 - Anemia, unspecified Status: Acute Plan: (3) Infection associated with internal hip prosthesis Code(s): T84.59XA - Infection and inflammatory reaction due to other internal joint prosthesis, initial encounter; Z96.649 - Presence of unspecified artificial hip joint Status: Acute Plan: (4) MRSA (methicillin resistant staph aureus) culture positive Code(s): Z22.322 - Carrier or suspected carrier of Methicillin resistant Staphylococcus aureus Status: Acute Plan: (5) PAD (peripheral artery disease) Code(s): I73.9 - Peripheral vascular disease, unspecified Status: Chronic Plan: (6) Hydronephrosis Code(s): N13.30 - Unspecified hydronephrosis Status: Resolved Plan: (7) HTN (hypertension) Code(s): I10 - Essential (primary) hypertension Status: Acute Plan: (8) Diabetes Code(s): E11.9 - Type 2 diabetes mellitus without complications Status: Acute Plan: (9) Malnutrition Code(s): E46 - Unspecified protein-calorie malnutrition Status: Acute Plan: (10) Suicidal ideation Code(s): R45.851 - Suicidal ideations Status: Acute Plan: (11) Anisocoria Code(s): H57.02 - Anisocoria Status: Acute Plan: (12) Sacral ulcer Code(s): L98.429 - Non-pressure chronic ulcer of back with unspecified severity Status: Acute <Saji Richard - 05/27/18 10:21> - Assessment and Plan He is an 87-year-old male with a history of hypertension, diabetes, peripheral vascular disease, chronic nonhealing wounds who was originally admitted for anemia. 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 Also during hospitalization he was found to have osteomyelitis and severe peripheral vascular disease in the right lower extremity. He is postop from BKA 05/23/18. Postop day 4 from [facility] -Osteomyelitis: Resolved. 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 daily Diabetes: Home medications glipizide and Januvia are held Low-dose sliding scale insulin -Continue gabapentin 600 mg p.o. 3 times daily for neuropathy Malnutrition: Diet supplementation with Ensure once diet is advanced Depression: He expressed suicidal ideation earlier in this hospitalization. Continue Celexa 10 mg p.o. daily Anisocoria Fluids: Adequate p.o. intake Electrolytes: monitor and replete as needed -Magnesium oxide 400 mg p.o. 4 times daily K-Phos 250 milligrams p.o. 4 times daily -Sodium chloride 1 g p.o. 3 times daily Nutrition: Diabetic diet GI prophylaxis: Protonix 40 mg p.o. twice daily VTE prophylaxis: Lovenox subcutaneous daily Disposition: He will hopefully be able to return to the SNF that he came from soon. Will need to determine if he will be followed by hospice and if PICC antibiotics are appropriate if hospice is started. <Saji Richard - 05/27/18 10:34> - Attending Attestation See the residents documentation for details. I saw and evaluated the patient regarding the [place] portions of this evaluation and agree with the residents findings and plans as written. Parts of this note were created using [employer] voice recognition software program. While efforts were made to correct any mistakes made by this software, some mistakes, errors, and omissions may remain in the final note that were not caught when the note was originally created. Plan of care was discussed and agreed upon with the patient as specifically documented in the above note. An opportunity to ask questions with explanation was provided. Patient voiced understanding on all information reviewed and discussed. <Pedro Shay - 05/28/18 13:47> <Saji Richard - Last Filed: 05/27/18 10:21> (6) Hydronephrosis Qualifiers: Hydronephrosis type: unspecified Qualified Code(s): N13.30 - Unspecified hydronephrosis <Pedro Shay - Last Filed: 05/28/18 13:47> (6) Hydronephrosis Qualifiers: Hydronephrosis type: unspecified Qualified Code(s): N13.30 - Unspecified hydronephrosis <Saji Richard - Last Filed: 05/27/18 10:21> (6) Hydronephrosis Qualifiers: Hydronephrosis type: unspecified Qualified Code(s): N13.30 - Unspecified hydronephrosis <Pedro Shay - Last Filed: 05/28/18 13:47> (6) Hydronephrosis Qualifiers: Hydronephrosis type: unspecified Qualified Code(s): N13.30 - Unspecified hydronephrosis
[2018-05-27] MEDS: Vancomycin Inj 1,250 MG in Sodium Chlor 0.9% Inj 250 ML IV.SIG SCH (16:22)
[2018-05-27] MEDS ORDERED: Heparin Central Flush 100 UNIT/ML 5 ML Vial IV.FLUSH PRN (16:52)
[2018-05-28] MEDS: Levothyroxine 125 MCG Tablet PO SCH (06:08)
[2018-05-28 08:04] LABS: Hematocrit 21.8 % (39.0-51.0); Hemoglobin 7.7 gm/dL (13.0-17.0); Mean Corpuscular HGB Conc 35.5 % (32.0-36.0); Mean Corpuscular Hemoglobin 32.1 pg (27.0-34.0); Mean Corpuscular Volume 90.4 fL (80.0-100.0); Mean Platelet Volume 6.5 fL (7.0-11.0); Platelet Count 417 th/mm3 (150-450); Red Blood Count 2.41 mil/mm3 (4.50-5.90); Red Cell Distribution Width 22.8 % (11.6-17.2); White Blood Count 8.9 th/mm3 (4.0-11.0)
[2018-05-28 08:23] LABS: Anion Gap 10 meq/L (5-15); Blood Urea Nitrogen 10 mg/dL (7-18); Calcium 7.9 mg/dL (8.5-10.1); Carbon Dioxide 25.1 meq/L (21.0-32.0); Chloride 92 meq/L (98-107); Glomerular Filtration Rate Greater Than 89 mL/min (>89); Glucose,Random 109 mg/dL (74-106); Potassium 4.7 meq/L (3.5-5.1); Sodium 127 meq/L (136-145)
[2018-05-28] MEDS: Citalopram 20 MG Tablet PO SCH (08:26)
[2018-05-28] MEDS: Potassium Phos/Sodium Phos 250 MG Tablet PO SCH ×4 (08:26→22:08)
[2018-05-28] MEDS: Ferrous Sulfate 325 MG Tablet PO SCH ×3 (08:26→17:27)
[2018-05-28] MEDS: Ascorbic Acid 500 MG Tablet PO SCH ×2 (08:26→22:09)
[2018-05-28] MEDS: Heparin Central Flush 100 UNIT/ML 5 ML Vial IV.FLUSH SCH (08:26)
[2018-05-28] MEDS: Magnesium Oxide 400 MG Tablet PO SCH ×4 (08:26→22:09)
[2018-05-28] MEDS: Sodium Chloride 1 GM Tablet PO SCH ×3 (08:26→17:27)
[2018-05-28] MEDS: Amiodarone 200 MG Tablet PO SCH (08:26)
[2018-05-28] MEDS: Polyethylene Glycol 3350 17 GM Packet PO SCH (08:27)
[2018-05-28] MEDS: Docusate Sodium 100 MG Capsule PO SCH ×2 (08:27→22:09)
[2018-05-28] MEDS: Insulin NovoLOG Aspart Correctional Sugar Inj SQ SCH ×4 (08:27→22:08)
[2018-05-28] MEDS: Gabapentin 300 MG Capsule PO SCH ×3 (08:27→17:27)
[2018-05-28] MEDS: Enoxaparin Inj 40 MG/0.4 ML Syringe SQ SCH (08:28)
[2018-05-28] MEDS: Gentamicin 0.1% Cream 15 GM Cream TOPICAL SCH ×2 (08:28→22:09)
[2018-05-28] MEDS: Collagenase Oint 30 GM Tube TOPICAL SCH (08:29)
--- NOTE | 2018-05-28 10:26 | P.PNFP ---
Subjective Interval history: Patient seen and examined today. No acute events overnight. Denies nausea, vomiting, fever, chills, don pain, chest pain, shortness of breath, lightheadedness, dizziness. No other complaints today. <Saij Richard - 05/28/18 10:25> Results - Labs Result diagrams: 05/28/18 07:38 05/28/18 07:38 <Pedro Shay - 05/28/18 14:33> Abnormal lab results 05/27/18 05/27/18 05/28/18 Range/Units 17:46 20:30 07:38 RBC 2.41 L (4.50-5.90) mil/mm3 Hgb 7.7 L (13.0-17.0) gm/dL Hct 21.8 L (39.0-51.0) % RDW 22.8 H (11.6-17.2) % MPV 6.5 L (7.0-11.0) fL Sodium (136-145) meq/L Chloride (98-107) meq/L Creatinine (0.60-1.30) mg/dL POC Glucose 139 H 158 H (68-110) mg/dl Random Glucose (74-106) mg/dL Calcium (8.5-10.1) mg/dL 05/28/18 05/28/18 05/28/18 Range/Units 07:38 08:22 12:36 RBC (4.50-5.90) mil/mm3 Hgb (13.0-17.0) gm/dL Hct (39.0-51.0) % RDW (11.6-17.2) % MPV (7.0-11.0) fL Sodium 127 L (136-145) meq/L Chloride 92 L (98-107) meq/L Creatinine 0.52 L (0.60-1.30) mg/dL POC Glucose 120 H 173 H (68-110) mg/dl Random Glucose 109 H (74-106) mg/dL Calcium 7.9 L (8.5-10.1) mg/dL Short CBC 05/28/18 Range/Units 07:38 WBC 8.9 (4.0-11.0) th/mm3 Hgb 7.7 L (13.0-17.0) gm/dL Hct 21.8 L (39.0-51.0) % Plt Count 417 (150-450) th/mm3 [facility] 05/28/18 07:38 Sodium 127 L Potassium 4.7 Chloride 92 L Carbon Dioxide 25.1 BUN 10 Creatinine 0.52 L Calcium 7.9 L <Pedro Shay - 05/28/18 14:33> Abnormal lab results 05/27/18 05/27/18 05/27/18 Range/Units 12:40 17:46 20:30 RBC (4.50-5.90) mil/mm3 Hgb (13.0-17.0) gm/dL Hct (39.0-51.0) % RDW (11.6-17.2) % MPV (7.0-11.0) fL Sodium (136-145) meq/L Chloride (98-107) meq/L Creatinine (0.60-1.30) mg/dL POC Glucose 177 H 139 H 158 H (68-110) mg/dl Random Glucose (74-106) mg/dL Calcium (8.5-10.1) mg/dL 05/28/18 05/28/18 05/28/18 Range/Units 07:38 07:38 08:22 RBC 2.41 L (4.50-5.90) mil/mm3 Hgb 7.7 L (13.0-17.0) gm/dL Hct 21.8 L (39.0-51.0) % RDW 22.8 H (11.6-17.2) % MPV 6.5 L (7.0-11.0) fL Sodium 127 L (136-145) meq/L Chloride 92 L (98-107) meq/L Creatinine 0.52 L (0.60-1.30) mg/dL POC Glucose 120 H (68-110) mg/dl Random Glucose 109 H (74-106) mg/dL Calcium 7.9 L (8.5-10.1) mg/dL Short CBC 05/28/18 Range/Units 07:38 WBC 8.9 (4.0-11.0) th/mm3 Hgb 7.7 L (13.0-17.0) gm/dL Hct 21.8 L (39.0-51.0) % Plt Count 417 (150-450) th/mm3 [facility] 05/28/18 07:38 Sodium 127 L Potassium 4.7 Chloride 92 L Carbon Dioxide 25.1 BUN 10 Creatinine 0.52 L Calcium 7.9 L <Saji Richard - 05/28/18 10:25> Physical Exam Vital signs: Vital Signs 05/27/18 16:00 05/27/18 18:10 05/27/18 20:00 Temperature 97.6 F 97.7 F Pulse Rate 83 63 Respiratory Rate 16 7 L 17 Blood Pressure 110/56 L 104/52 L Pulse Oximetry 98 97 05/28/18 00:00 05/28/18 04:00 05/28/18 08:00 Temperature 97.3 F L 97.8 F 97.1 F L Pulse Rate 61 60 60 Respiratory Rate 16 18 18 Blood Pressure 108/56 L 107/55 L 112/60 Pulse Oximetry 98 98 97 05/28/18 12:00 Temperature 97.4 F L Pulse Rate 58 L Respiratory Rate 18 Blood Pressure 106/56 L Pulse Oximetry 98 Intake & Output 05/27/18 05/28/18 05/28/18 18:59 06:59 18:59 Intake Total 262.5 / 262.5 120 / 120 Output Total 700 / 700 950 / 950 Balance -437.5 / -437.5 -830 / -830 Weight 71.1 kg Intake: IV 262.5 / 262.5 Vancomycin Inj 1,250 MG In NS 262.5 / 262.5 Inj 250 ML @ 250 mls/hr IV.SIG Q24H [facility] Rx#:[id number] Oral 120 / 120 Output: Urine 950 / 950 Urine Amount (Catheter) 700 / 700 Condom 700 / 700 Other: Date of Last Bowel Movement 05/28/18 # Bowel Movements 3 1 <Pedro Shay - 05/28/18 14:33> Vital Signs 05/27/18 12:00 05/27/18 16:00 05/27/18 18:10 Temperature 97.2 F L 97.6 F Pulse Rate 61 83 Respiratory Rate 16 16 7 L Blood Pressure 103/55 L 110/56 L Pulse Oximetry 95 98 05/27/18 20:00 05/28/18 00:00 05/28/18 04:00 Temperature 97.7 F 97.3 F L 97.8 F Pulse Rate 63 61 60 Respiratory Rate 17 16 18 Blood Pressure 104/52 L 108/56 L 107/55 L Pulse Oximetry 97 98 98 05/28/18 08:00 Temperature 97.1 F L Pulse Rate 60 Respiratory Rate 18 Blood Pressure 112/60 Pulse Oximetry 97 Intake & Output 05/27/18 05/28/18 05/28/18 18:59 06:59 18:59 Intake Total 262.5 / 262.5 120 / 120 Output Total 700 / 700 950 / 950 Balance -437.5 / -437.5 -830 / -830 Weight 71.1 kg Intake: IV 262.5 / 262.5 Vancomycin Inj 1,250 MG In NS 262.5 / 262.5 Inj 250 ML @ 250 mls/hr IV.SIG Q24H [facility] Rx#:[id number] Oral 120 / 120 Output: Urine 950 / 950 Urine Amount (Catheter) 700 / 700 Condom 700 / 700 Other: Date of Last Bowel Movement 05/28/18 # Bowel Movements 3 1 <Saji Richard - 05/28/18 10:25> Narrative: General: Cachectic elderly male, alert, and in no acute distress. Oriented to person and place. HEENT: Atraumatic, non-icteric sclera and no conjunctival injection, moist mucous membranes Neck: Supple, non-tender without masses or lymphadenopathy, trachea midline, no JVD Cardiac: Regular rate and rhythm Pulmonary: Non-labored breathing. Lungs clear to auscultation bilaterally with good air movement Abdomen: Normal bowel sounds, soft and non-tender without rebound or guarding Extremities: Left lower extremity has no edema and has palpable pulses. Right lower extremity is status post BKA, wrapped, clean/dry/intact <Saji Richard - 05/28/18 10:25> - Urinary Catheter Management Condom Cath placed during this visit: no <Pedro Shay - 05/28/18 14:33> no <Saji Richard - 05/28/18 10:25> Reason for continuing: Not indwelling catheter <Saji Richard - 05/28/18 10 :25> Indwelling Urethral Catheter Cath placed during this visit: no <Pedro Shay - 05/28/18 14:33> yes, but has since been removed by the nurse <Saji Richard - 05/28/18 10:25> Reason for continuing: Not indwelling catheter <Saji Richard - 05/28/18 10 :25> Insertion date: 04/11/18 <Saji Richard - 05/28/18 10:25> Insertion time: 21:08 <Saji Richard - 05/28/18 10:25> Removal date: 04/12/18 <Saji Richard - 05/28/18 10:25> Removal time: 11:35 <Saji Richard - 05/28/18 10:25> Straight Cath placed during this visit: no <Pedro Shay - 05/28/18 14:33> yes <Saji Richard - 05/28/18 10:25> Reason for continuing: Other continuation reason <Saji Richard - 05/28/18 10:25> Insertion date: 04/11/18 <Saji Richard - 05/28/18 10:25> Insertion time: 21:08 <Saji Richard - 05/28/18 10:25> Assessment and Plan - Assessment (1) S/P BKA (below knee amputation) Code(s): Z89.519 - Acquired absence of unspecified leg below knee Status: Acute (2) Anemia Code(s): D64.9 - Anemia, unspecified Status: Acute (3) Infection associated with internal hip prosthesis Code(s): T84.59XA - Infection and inflammatory reaction due to other internal joint prosthesis, initial encounter; Z96.649 - Presence of unspecified artificial hip joint Status: Acute (4) MRSA (methicillin resistant staph aureus) culture positive Code(s): Z22.322 - Carrier or suspected carrier of Methicillin resistant Staphylococcus aureus Status: Acute (5) PAD (peripheral artery disease) Code(s): I73.9 - Peripheral vascular disease, unspecified Status: Chronic (6) Hydronephrosis Code(s): N13.30 - Unspecified hydronephrosis Status: Resolved (7) HTN (hypertension) Code(s): I10 - Essential (primary) hypertension Status: Acute (8) Diabetes Code(s): E11.9 - Type 2 diabetes mellitus without complications Status: Acute (9) Malnutrition Code(s): E46 - Unspecified protein-calorie malnutrition Status: Acute (10) Suicidal ideation Code(s): R45.851 - Suicidal ideations Status: Acute (11) Anisocoria Code(s): H57.02 - Anisocoria Status: Acute (12) Sacral ulcer Code(s): L98.429 - Non-pressure chronic ulcer of back with unspecified severity Status: Acute <Pedro Shay - 05/28/18 14:33> (1) S/P BKA (below knee amputation) Code(s): Z89.519 - Acquired absence of unspecified leg below knee Status: Acute (2) Anemia Code(s): D64.9 - Anemia, unspecified Status: Acute Plan: (3) Infection associated with internal hip prosthesis Code(s): T84.59XA - Infection and inflammatory reaction due to other internal joint prosthesis, initial encounter; Z96.649 - Presence of unspecified artificial hip joint Status: Acute Plan: (4) MRSA (methicillin resistant staph aureus) culture positive Code(s): Z22.322 - Carrier or suspected carrier of Methicillin resistant Staphylococcus aureus Status: Acute Plan: (5) PAD (peripheral artery disease) Code(s): I73.9 - Peripheral vascular disease, unspecified Status: Chronic Plan: (6) Hydronephrosis Code(s): N13.30 - Unspecified hydronephrosis Status: Resolved Plan: (7) HTN (hypertension) Code(s): I10 - Essential (primary) hypertension Status: Acute Plan: (8) Diabetes Code(s): E11.9 - Type 2 diabetes mellitus without complications Status: Acute Plan: (9) Malnutrition Code(s): E46 - Unspecified protein-calorie malnutrition Status: Acute Plan: (10) Suicidal ideation Code(s): R45.851 - Suicidal ideations Status: Acute Plan: (11) Anisocoria Code(s): H57.02 - Anisocoria Status: Acute Plan: (12) Sacral ulcer Code(s): L98.429 - Non-pressure chronic ulcer of back with unspecified severity Status: Acute <SinakathyEladio - 05/28/18 10:24> - Assessment and Plan He is an 87-year-old male with a history of hypertension, diabetes, peripheral vascular disease, chronic nonhealing wounds who was originally admitted for anemia. 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 Also during hospitalization he was found to have osteomyelitis and severe peripheral vascular disease in the right lower extremity. He is postop from BKA 05/23/18. Postop from [facility] -Physical and Occupational Therapy -Osteomyelitis: Resolved. 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 daily Diabetes: Home medications glipizide and Januvia are held Low-dose sliding scale insulin -Continue gabapentin 600 mg p.o. 3 times daily for neuropathy Malnutrition: Diet supplementation with Ensure once diet is advanced Depression: He expressed suicidal ideation earlier in this hospitalization. Continue Celexa 10 mg p.o. daily Anisocoria Fluids: Adequate p.o. intake Electrolytes: monitor and replete as needed -Magnesium oxide 400 mg p.o. 4 times daily K-Phos 250 milligrams p.o. 4 times daily -Sodium chloride 1 g p.o. 3 times daily Nutrition: Diabetic diet GI prophylaxis: Protonix 40 mg p.o. twice daily VTE prophylaxis: Lovenox subcutaneous daily Disposition: He will hopefully be able to return to the SNF that he came from soon. <Saji Richard - 05/28/18 10:25> - Attending Attestation See the residents documentation for details. I saw and evaluated the patient regarding the [place] portions of this evaluation and agree with the residents findings and plans as written. Parts of this note were created using [employer] voice recognition software program. While efforts were made to correct any mistakes made by this software, some mistakes, errors, and omissions may remain in the final note that were not caught when the note was originally created. Plan of care was discussed and agreed upon with the patient as specifically documented in the above note. An opportunity to ask questions with explanation was provided. Patient voiced understanding on all information reviewed and discussed. <Pedro Shay - 05/28/18 14:33> <Saji Richard - Last Filed: 05/28/18 10:24> (6) Hydronephrosis Qualifiers: Hydronephrosis type: unspecified Qualified Code(s): N13.30 - Unspecified hydronephrosis <Pedro Shay - Last Filed: 05/28/18 14:33> (6) Hydronephrosis Qualifiers: Hydronephrosis type: unspecified Qualified Code(s): N13.30 - Unspecified hydronephrosis <Saji Richard - Last Filed: 05/28/18 10:24> (6) Hydronephrosis Qualifiers: Hydronephrosis type: unspecified Qualified Code(s): N13.30 - Unspecified hydronephrosis <Pedro Shay - Last Filed: 05/28/18 14:33> (6) Hydronephrosis Qualifiers: Hydronephrosis type: unspecified Qualified Code(s): N13.30 - Unspecified hydronephrosis
[2018-05-28] MEDS: Vancomycin Inj 1,250 MG in Sodium Chlor 0.9% Inj 250 ML IV.SIG SCH (15:13)
[2018-05-29] MEDS: Levothyroxine 125 MCG Tablet PO SCH (05:31)
[2018-05-29 05:47] LABS: Hematocrit 21.8 % (39.0-51.0); Hemoglobin 7.3 gm/dL (13.0-17.0); Mean Corpuscular HGB Conc 33.6 % (32.0-36.0); Mean Corpuscular Hemoglobin 30.5 pg (27.0-34.0); Mean Corpuscular Volume 90.8 fL (80.0-100.0); Mean Platelet Volume 6.4 fL (7.0-11.0); Platelet Count 426 th/mm3 (150-450); Red Cell Distribution Width 23.1 % (11.6-17.2); White Blood Count 8.7 th/mm3 (4.0-11.0)
[2018-05-29 06:14] LABS: Anion Gap 7 meq/L (5-15); Blood Urea Nitrogen 9 mg/dL (7-18); Carbon Dioxide 27.8 meq/L (21.0-32.0); Chloride 94 meq/L (98-107); Glomerular Filtration Rate Greater Than 89 mL/min (>89); Glucose,Random 90 mg/dL (74-106); Potassium 4.2 meq/L (3.5-5.1); Sodium 129 meq/L (136-145)
[2018-05-29] MEDS: Insulin NovoLOG Aspart Correctional Sugar Inj SQ SCH ×2 (08:28→12:35)
[2018-05-29] MEDS: Potassium Phos/Sodium Phos 250 MG Tablet PO SCH ×2 (09:17→12:33)
[2018-05-29] MEDS: Gabapentin 300 MG Capsule PO SCH ×2 (09:18→12:35)
[2018-05-29] MEDS: Ferrous Sulfate 325 MG Tablet PO SCH ×2 (09:18→12:35)
[2018-05-29] MEDS: Amiodarone 200 MG Tablet PO SCH (09:19)
[2018-05-29] MEDS: Citalopram 20 MG Tablet PO SCH (09:19)
[2018-05-29] MEDS: Sodium Chloride 1 GM Tablet PO SCH ×2 (09:19→12:34)
[2018-05-29 09:20] VITALS: BP 106/53; RESP 14; TEMP 97.7; O2SAT 98
[2018-05-29] MEDS: Magnesium Oxide 400 MG Tablet PO SCH ×2 (09:20→12:34)
[2018-05-29] MEDS: Ascorbic Acid 500 MG Tablet PO SCH (09:20)
[2018-05-29] MEDS: Heparin Central Flush 100 UNIT/ML 5 ML Vial IV.FLUSH SCH (09:21)
[2018-05-29] MEDS: Enoxaparin Inj 40 MG/0.4 ML Syringe SQ SCH (09:21)
[2018-05-29] MEDS: Collagenase Oint 30 GM Tube TOPICAL SCH (09:22)
[2018-05-29] MEDS: Gentamicin 0.1% Cream 15 GM Cream TOPICAL SCH (09:22)
[2018-05-29] MEDS: Docusate Sodium 100 MG Capsule PO SCH (09:23)
[2018-05-29] MEDS: Polyethylene Glycol 3350 17 GM Packet PO SCH (09:23)
--- NOTE | 2018-05-29 10:32 | P.PNFP ---
Subjective Interval history: Patient seen and examined today. No acute events overnight. Denies nausea, vomiting, fever, chills, don pain, chest pain, shortness of breath, lightheadedness, dizziness. No other complaints today. Results - Labs Result diagrams: 05/29/18 05:30 05/29/18 05:30 Abnormal lab results 05/28/18 05/28/18 05/28/18 Range/Units 12:36 17:07 20:03 RBC (4.50-5.90) mil/mm3 Hgb (13.0-17.0) gm/dL Hct (39.0-51.0) % RDW (11.6-17.2) % MPV (7.0-11.0) fL Sodium (136-145) meq/L Chloride (98-107) meq/L Creatinine (0.60-1.30) mg/dL POC Glucose 173 H 182 H 164 H (68-110) mg/dl Calcium (8.5-10.1) mg/dL 05/29/18 05/29/18 Range/Units 05:30 05:30 RBC 2.40 L (4.50-5.90) mil/mm3 Hgb 7.3 L (13.0-17.0) gm/dL Hct 21.8 L (39.0-51.0) % RDW 23.1 H (11.6-17.2) % MPV 6.4 L (7.0-11.0) fL Sodium 129 L (136-145) meq/L Chloride 94 L (98-107) meq/L Creatinine 0.48 L (0.60-1.30) mg/dL POC Glucose (68-110) mg/dl Calcium 8.0 L (8.5-10.1) mg/dL Short CBC 05/29/18 Range/Units 05:30 WBC 8.7 (4.0-11.0) th/mm3 Hgb 7.3 L (13.0-17.0) gm/dL Hct 21.8 L (39.0-51.0) % Plt Count 426 (150-450) th/mm3 BMP 05/29/18 05:30 Sodium 129 L Potassium 4.2 Chloride 94 L Carbon Dioxide 27.8 BUN 9 Creatinine 0.48 L Calcium 8.0 L Physical Exam Vital signs: Vital Signs 05/28/18 12:00 05/28/18 16:00 05/28/18 20:00 Temperature 97.4 F L 97 F L 97.7 F Pulse Rate 58 L 58 L 59 L Respiratory Rate 18 18 17 Blood Pressure 106/56 L 103/60 105/53 L Pulse Oximetry 98 97 98 05/29/18 00:00 05/29/18 04:00 05/29/18 08:00 Temperature 97.9 F 97.6 F 97.7 F Pulse Rate 58 L 58 L 60 Respiratory Rate 19 18 14 Blood Pressure 100/56 L 103/53 L 106/53 L Pulse Oximetry 98 95 98 05/29/18 08:20 Temperature Pulse Rate 58 L Respiratory Rate Blood Pressure Pulse Oximetry Intake & Output 05/28/18 05/29/18 05/29/18 18:59 06:59 18:59 Intake Total 743 / 743 120 / 120 Output Total 550 / 550 Balance 743 / 743 -430 / -430 Weight 69.9 kg Intake: IV 263 / 263 Vancomycin Inj 1,250 MG In NS 263 / 263 Inj 250 ML @ 250 mls/hr IV.SIG Q24H [facility] Rx#:[id number] Oral 480 / 480 120 / 120 Output: Urine 550 / 550 Other: # Voids 1 Date of Last Bowel Movement 05/29/18 05/29/18 # Bowel Movements 2 Narrative: General: Cachectic elderly male, alert, and in no acute distress. Oriented to person and place. HEENT: Atraumatic, non-icteric sclera and no conjunctival injection, moist mucous membranes Neck: Supple, non-tender without masses or lymphadenopathy, trachea midline, no JVD Cardiac: Regular rate and rhythm Pulmonary: Non-labored breathing. Lungs clear to auscultation bilaterally with good air movement Abdomen: Normal bowel sounds, soft and non-tender without rebound or guarding Extremities: Left lower extremity has no edema and has palpable pulses. Right lower extremity is status post BKA, wrapped, clean/dry/intact - Urinary Catheter Management Straight Cath placed during this visit: yes Reason for continuing: Other continuation reason Insertion date: 04/11/18 Insertion time: 21:08 Indwelling Urethral Catheter Cath placed during this visit: yes, but has since been removed by the nurse Reason for continuing: Not indwelling catheter Insertion date: 04/11/18 Insertion time: 21:08 Removal date: 04/12/18 Removal time: 11:35 Condom Cath placed during this visit: no Reason for continuing: Not indwelling catheter Assessment and Plan - Assessment (1) S/P BKA (below knee amputation) Code(s): Z89.519 - Acquired absence of unspecified leg below knee Status: Acute (2) Anemia Code(s): D64.9 - Anemia, unspecified Status: Acute Plan: (3) Infection associated with internal hip prosthesis Code(s): T84.59XA - Infection and inflammatory reaction due to other internal joint prosthesis, initial encounter; Z96.649 - Presence of unspecified artificial hip joint Status: Acute Plan: (4) MRSA (methicillin resistant staph aureus) culture positive Code(s): Z22.322 - Carrier or suspected carrier of Methicillin resistant Staphylococcus aureus Status: Acute Plan: (5) PAD (peripheral artery disease) Code(s): I73.9 - Peripheral vascular disease, unspecified Status: Chronic Plan: (6) Hydronephrosis Code(s): N13.30 - Unspecified hydronephrosis Status: Resolved Plan: (7) HTN (hypertension) Code(s): I10 - Essential (primary) hypertension Status: Acute Plan: (8) Diabetes Code(s): E11.9 - Type 2 diabetes mellitus without complications Status: Acute Plan: (9) Malnutrition Code(s): E46 - Unspecified protein-calorie malnutrition Status: Acute Plan: (10) Suicidal ideation Code(s): R45.851 - Suicidal ideations Status: Acute Plan: (11) Anisocoria Code(s): H57.02 - Anisocoria Status: Acute Plan: (12) Sacral ulcer Code(s): L98.429 - Non-pressure chronic ulcer of back with unspecified severity Status: Acute - Assessment and Plan He is an 87-year-old male with a history of hypertension, diabetes, peripheral vascular disease, chronic nonhealing wounds who was originally admitted for anemia. 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 Also during hospitalization he was found to have osteomyelitis and severe peripheral vascular disease in the right lower extremity. He is postop from [facility] 05/23/18. Postop from [facility] -Physical and Occupational Therapy -Osteomyelitis: Resolved. 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 daily Diabetes: Home medications glipizide and Januvia are held Low-dose sliding scale insulin -Continue gabapentin 600 mg p.o. 3 times daily for neuropathy Malnutrition: Diet supplementation with Ensure once diet is advanced Depression: He expressed suicidal ideation earlier in this hospitalization. Continue Celexa 10 mg p.o. daily Anisocoria Fluids: Adequate p.o. intake Electrolytes: monitor and replete as needed -Magnesium oxide 400 mg p.o. 4 times daily K-Phos 250 milligrams p.o. 4 times daily -Sodium chloride 1 g p.o. 3 times daily Nutrition: Diabetic diet GI prophylaxis: Protonix 40 mg p.o. twice daily VTE prophylaxis: Lovenox subcutaneous daily Disposition: He will hopefully be able to return to the SNF that he came from soon. (6) Hydronephrosis Qualifiers: Hydronephrosis type: unspecified Qualified Code(s): N13.30 - Unspecified hydronephrosis
[2018-05-29] MEDS: Morphine Inj 4 MG/ML Vial IV.PUSH PRN (12:36)
[2018-05-29] MEDS: Vancomycin Inj 1,250 MG in Sodium Chlor 0.9% Inj 250 ML IV.SIG SCH (15:07)
[2018-05-29 15:09] VITALS: PULSE 64
[2018-05-30] MEDS ORDERED: Pharmacy Ordered Lab Info OTHER ONE (14:45)
== END 2018-05-29 17:15 ==
LOC: NEPE 11:01 → NEDA 13:52 → N07 15:19 → HIMC 04-30 16:15 → N04 05-01 21:33
PROVIDERS: ADMIT Family Medicine; ATTEND Family Medicine
PROC: PANENDO (2018-04-12 10:24)
PROC: COLONOS (2018-04-14 14:35)
PROC: ANGIOLE (2018-04-24 10:42)